=== PATIENT | female | born 1990 | race Two or more races ===

== ENCOUNTER → 2020-05-10 08:06 | Outpatient (REF) | payer OTHER, SELFPAY ==
--- NOTE | 2020-05-10 | NM_ITS ---
EXAMINATION: RADIONUCLIDE SOLID FOOD GASTRIC EMPTYING 4-HOUR STUDY CLINICAL INFORMATION: Abdominal pain. COMPARISON: No previous biliary scan is available for comparison. TECHNIQUE: A standard meal consisting of 4 oz of Egg Beaters brand equivalent tagged with 1 mCi Tc-99m Sulfur Colloid, 8 oz water and 2 slices of toast with jelly was administered orally to the patient. Images were obtained using a dual head gamma camera in the anterior and posterior projections over of the stomach immediately post ingestion and at hourly intervals up to 4 hours post ingestion. The anterior and posterior counts at each time interval were averaged using the geometric mean and expressed as percentage of the immediate post ingestion counts. FINDINGS: There is good visualization of activity in the stomach immediately post ingestion. As the study progresses, there is good clearance of activity from the stomach and visualization of progressively increasing small bowel activity. By the end of the study, there is almost no retention noted in the stomach. Retention in the stomach at each time interval was: 1 hour 82% (normal 37%-90%) 2 hours 42% (normal 30%-60%) 3 hours 23% 4 hours 2% (normal 0%-10%) IMPRESSION: Normal 4-hour solid food gastric emptying study.
== END ==
LOC: HO.NUCMED 08:06
PROVIDERS: PCP Internal Medicine; Visit Provider Internal Medicine Gastroenterology
DX: R10.9 Unspecified abdominal pain (principal); K59.01 Slow transit constipation; E53.8 Deficiency of other specified B group vitamins
CPT/HCPCS: 78262; 78264; A9541

== ENCOUNTER 2020-05-12 09:20 | Outpatient (REF) | payer OTHER, SELFPAY ==
--- NOTE | 2020-05-12 11:00 | MR_ITS ---
EXAMINATION: MRI ABDOMEN AND PELVIS WITH AND WITHOUT CONTRAST: MR ENTEROGRAPHY CLINICAL INFORMATION: UNSPECIFIED ABD PAIN, CONSTIPATION DELAYED COLONIC TRANSIT COMPARISON: No pertinent priors currently available. TECHNIQUE: 1500 mL Breeza PO contrast prior to scanning. Then, multiple routine MRI sequences through the abdomen were obtained on a high-field 1.5 Joellen MRI before and after the uneventful administration of 6.5 mL of Gadavist gadolinium-based IV contrast. FINDINGS: STOMACH: Adequate distention with fluid. No gastric wall thickening. No abnormal wall enhancement. SMALL BOWEL: Adequate distention of the small bowel fluid. No small bowel wall thickening. No area suspicious for stricture. No abnormal wall enhancement. COLON: There is stool throughout the colon, particularly in the right hemicolon. There is no colonic wall thickening or abnormal enhancement. LUNG BASES: Lung bases are clear. LIVER: Liver enhances normally. No focal lesion seen. Hepatic and portal veins enhance normally. GALL BLADDER AND BILIARY TREE: Gall bladder normal. No intra or extra-hepatic biliary ductal dilation. SPLEEN: Normal. Normal size. No focal lesion. PANCREAS: Normal. ADRENAL GLANDS: Normal. No adrenal mass. KIDNEYS AND URETERS: Normal symmetric renal enhancement. No hydronephrosis or mass. LYMPHOVASCULAR STRUCTURES: Normal caliber aorta. IVC patent. No pathologically enlarged abdominal or retroperitoneal lymphadenopathy by CT size criteria PELVIS: The uterus and adnexa are unremarkable. OSSEOUS STRUCTURES: No acute or suspicious osseous abnormalities. IMPRESSION: No suspicious bowel abnormality. No abnormal wall thickening or enhancement. There is mild to moderate colonic stool burden.
[2020-05-12 15:27] LABS: Glucose, Whole Blood 76 mg/dL (60-115)
[2020-05-12 15:27] LABS: Glucose, Whole Blood 86 mg/dL (60-115)
[2020-05-12 15:28] LABS: Glucose, Whole Blood 78 mg/dL (60-115)
== END 2020-05-12 09:21 | disposition home or self-care (01) ==
LOC: HO.MRI 09:20
PROVIDERS: PCP Internal Medicine; Visit Provider Internal Medicine Gastroenterology
DX: R10.9 Unspecified abdominal pain (principal); K59.01 Slow transit constipation; E53.8 Deficiency of other specified B group vitamins; Z95.0 Presence of cardiac pacemaker
CPT/HCPCS: 72197; 74183; 82947

== ENCOUNTER 2020-10-18 09:04 | Outpatient (REF) | payer OTHER, SELFPAY ==
--- NOTE | ~2020-10-18 | US_ITS ---
EXAMINATION: MESENTERIC ARTERIAL ULTRASOUND CLINICAL INFORMATION: Epigastric pain COMPARISON: Previous CTA of the chest December and February 2019 TECHNIQUE: Doppler color and grayscale evaluation of the mesenteric vessels and aorta including waveform spectral analysis. Exam was performed in the supine position. FINDINGS: The abdominal aorta is normal in caliber. Abdominal aorta systolic velocity measures 135 cm/s proximal to the SMA and 121 cm/s distal to the SMA. This has a normal waveform. The celiac axis is patent without visible stenosis. Celiac axis peak systolic velocity is slightly elevated measuring 275 cm/s, upper normal is 200 cm/s. The waveform is normal. The SMA is patent without visible stenosis. Peak systolic velocity measures 280 cm/s proximally, 185 cm/s in the midportion and 196 cm/s distally. Proximal SMA peak systolic velocity is slightly elevated, upper normal 275 cm/s. This has a normal waveform. The JUANA is patent. Peak systolic velocity measures 124 cm/s. This has a normal waveform. The splenic artery is patent. Peak systolic velocity measures 124 cm/s. This has a normal waveform. Review of the upper abdomen on CTA of the chest demonstrates normal caliber upper abdominal aorta. Normal caliber widely patent celiac axis and SMA. 2 patent right renal arteries and single patent left renal artery. US/US SMA IMPRESSION: Slightly elevated peak systolic velocities in the celiac axis and proximal SMA. Vessels appear widely patent with no visible stenosis and normal waveforms.
== END 2020-10-18 09:05 | disposition home or self-care (01) ==
LOC: HO.US 09:04
PROVIDERS: Visit Provider Internal Medicine Gastroenterology
DX: R10.13 Epigastric pain (principal)
CPT/HCPCS: 93976

== ENCOUNTER 2020-10-31 10:23 | Outpatient (REF) | payer OTHER, SELFPAY | END 2020-10-31 10:24 | disposition home or self-care (01) | LOC: HO.XRAY 10:23 | PROVIDERS: PCP Internal Medicine; Visit Provider Internal Medicine Gastroenterology | DX: K59.02 Outlet dysfunction constipation (principal) | CPT/HCPCS: 99212 ==

== ENCOUNTER 2020-11-02 08:29 | Outpatient (REF) | payer OTHER, SELFPAY ==
--- NOTE | ~2020-11-02 | XR_ITS ---
EXAMINATION: XR ABDOMEN KUB CLINICAL INDICATION: Sitz markers. COMPARISON: None TECHNIQUE: AP view of the abdomen. FINDINGS: There are 6 Sitz markers projecting over the right colon. There is stool in the right colon. There are no dilated loops of bowel. There is no evidence of free air. There are no calcifications. Bony structures are unremarkable. XR/XR KUB IMPRESSION: 6 Sitz markers seen in the right colon.
== END 2020-11-02 08:30 | disposition home or self-care (01) ==
LOC: HO.LAB 08:29
PROVIDERS: PCP Internal Medicine; Visit Provider Internal Medicine Gastroenterology
DX: R10.13 Epigastric pain (principal); K59.02 Outlet dysfunction constipation
CPT/HCPCS: 36415; 74018; 86003

== ENCOUNTER 2020-11-05 09:27 | Outpatient (REF) | payer OTHER, SELFPAY ==
--- NOTE | ~2020-11-05 | XR_ITS ---
EXAMINATION: XR ABDOMEN KUB CLINICAL INDICATION: Day 5 cysts Marker test COMPARISON: November 02, 2020 TECHNIQUE: AP view of the abdomen. FINDINGS: No dilated loops of large or small bowel are evident. There is moderate stool burden seen throughout the colon. Psoas margins are intact. Bony structures unremarkable. There are noted to be 4 Sitzmarks remaining. 2 are in the region of the splenic flexure with one in the region of the sigmoid colon and the fourth and region of the rectum. The colonic transit appears to be normal with greater than 80% of the Sitzmarks markers passing within 5 days. XR/XR KUB IMPRESSION: Moderate stool burden. 4 remaining Sitzmarks markers as described which on day 5 is indicative of normal colonic transit.
== END 2020-11-05 09:28 | disposition home or self-care (01) ==
LOC: HO.XRAY 09:27
PROVIDERS: PCP Internal Medicine; Visit Provider Internal Medicine Gastroenterology
DX: K59.02 Outlet dysfunction constipation (principal)
CPT/HCPCS: 74018

== ENCOUNTER → 2021-06-05 10:54 | Outpatient (BNVA) | payer OTHER, SELFPAY | PROVIDERS: PCP Internal Medicine; Visit Provider Internal Medicine Gastroenterology | DX: K59.02 Outlet dysfunction constipation (principal) | CPT/HCPCS: Q3014 ==

== ENCOUNTER → 2021-07-04 12:50 | Outpatient (BNVA) | payer OTHER, SELFPAY | PROVIDERS: PCP Internal Medicine; Visit Provider Internal Medicine Gastroenterology | CPT/HCPCS: Q3014 ==

== ENCOUNTER → 2021-10-02 14:51 | Outpatient (BNVA) | payer OTHER, SELFPAY | PROVIDERS: PCP Internal Medicine; Referring Provider Internal Medicine; Visit Provider Internal Medicine Gastroenterology | DX: Z13.89 Encounter for screening for other disorder (principal) | CPT/HCPCS: Q3014 ==

== ENCOUNTER 2021-11-22 11:39 | Day surgery (SDC) | payer OTHER, SELFPAY ==
[2021-11-17 12:15] VITALS: BMI 27.1
[2021-11-22 12:00] VITALS: BP 102/65; PULSE 64; RESP 18; TEMP 36.3; O2SAT 100; BMI 27.3
--- NOTE | 2021-11-22 12:05 | MHC.SHP ---
Pre-Procedural Eval Section A Date of Service: 11/22/21 Section B Chief Complaint: Epigastric pain,Hemorrhage of anus and rectum Details of Present Illness: altered bowel habit Relevant Family History (Specify if Yes): No Relevant Social History: None Present Medications: see Short Stay Collaborative assessment Medical History: Significant History (Active asthma B12 deficiency H/O brain tumor Pacemaker Pernicious anemia POTS (postural orthostatic tachycardia syndrome)) History of Previous Operations: Relevant previous surgery/procedure and date(s) (H/O colonoscopy H/O esophagogastroduodenoscopy Hx of appendectomy) Allergies: Allergies Allergy/AdvReac Type Severity Reaction Status Date / Time cefoxitin [CEFOXITIN] Allergy Severe Anaphylaxis Verified 11/17/21 11:56 sertraline Allergy Severe itching Verified 11/17/21 11:56 vancomycin [VANCOMYCIN] Allergy Severe Anaphylaxis Verified 11/17/21 11:56 Review of Systems Sugical H&P ROS: Negative: Constitution, Cardiovascular, Respiratory, Neurological, Psychiatric, Hem-Onc, Allergic/Immunologic, Gastrointestinal, Genitourinary, Musculoskeletal, Integumentary, Endocrine and Eyes/Ears/Nose/Throat Exam Surgical H&P Exam: Normal: HEENT, Normal: Heart, Normal: Lungs, Normal: Extremities, Normal: Abdomen, Normal: Skin and Normal: Neurological Plan Diagnosis/Plan: Unchanged I have reviewed the history and physical and performed a pertinent physical examination on my patient. No changes have occurred unless specified.
--- NOTE | 2021-11-22 12:26 | P.CONAN_ITS ---
FORMERLY [facility] Active Problems Active Problems: All Active Problems (Updated 11/17/21 @ 14:54 by Jenifer Brown RN) Epigastric abdominal pain (Acute) Constipation by outlet dysfunction (Acute) Past Medical History Medical History (Updated 11/17/21 @ 14:54 by Jenifer Brown RN) Active asthma Anxiety and depression B12 deficiency H/O brain tumor History of chemotherapy History of DVT (deep vein thrombosis) History of palpitations Hx of supraventricular tachycardia Narcolepsy Pacemaker Pernicious anemia POTS (postural orthostatic tachycardia syndrome) Seasonal allergies Family History Family History Mother Heart problem Maternal Grandfather Heart problem Paternal Grandmother Dementia Family history of problems with anesthesia: No Surgical History Surgical History (Updated 11/17/21 @ 14:54 by Jenifer Brown RN) H/O colonoscopy H/O esophagogastroduodenoscopy History of cardiac radiofrequency ablation (RFA) Hx of appendectomy Hx of craniotomy History of Problems with Anesthesia: No Social History Social History Household Members: None Are you a primary primary care nurse practitioner to a significant other at home: No Do you presently have visiting nurse or other home services: Yes ([employer] 4.5 week) Alcohol intake: current Alcohol intake frequency: holidays/special occasions only Patient Tobacco Use Status: Never used Tobacco Use of substances other than those prescribed or required for medical reasons: No Have you been hit, kicked, punched, or otherwise hurt by someone within the past year? If so, by whom?: No Are you DNR?: No Advance Directives: No Advance Directives Information Provided: Yes Advance Directives on File: No Recently lost weight without trying: Unsure Patient : No FDLMP: 11/01/2021 : No Poor oral hygiene: No Meds Allergies Allergy/AdvReac Type Severity Reaction Status Date / Time cefoxitin [CEFOXITIN] Allergy Severe Anaphylaxis Verified 11/17/21 11:56 sertraline Allergy Severe itching Verified 11/17/21 11:56 vancomycin [VANCOMYCIN] Allergy Severe Anaphylaxis Verified 11/17/21 11:56 Active Medications: Current Medications Lactated Ringer's (Lr) 1,000 mls @ 50 mls/hr IVCONT .Q20H [facility] Home Medications Medication Instructions Recorded Confirmed Last Taken Type cyanocobalamin (vitamin B-12) 1,000 mcg IM Q4W 10/31/20 11/17/21 Unknown History 1,000 mcg/mL injection solution metoprolol tartrate 50 mg tablet 50 mg PO BID 10/31/20 11/17/21 Unknown History nitroglycerin 0.4 mg sublingual 0.4 mg SUBLINGUAL .Q5MINS 10/31/20 11/17/21 Unknown History tablet albuterol sulfate 90 mcg/actuation 2 puff INHALATION Q6H PRN 11/17/21 11/17/21 Unknown History aerosol inhaler cholecalciferol (vitamin D3) 25 1 cap PO DAILY 11/17/21 11/17/21 Unknown History mcg (1,000 unit) capsule fluticasone propionate 110 2 puff INHALATION BID 11/17/21 11/17/21 Unknown History mcg/actuation HFA aerosol inhaler (Flovent HFA) pitolisant 17.8 mg tablet (Wakix) mg PO 11/17/21 11/17/21 Unknown History verapamil 240 mg tablet,extended 1 tab PO BID 11/17/21 11/17/21 Unknown History release Exam Exam Date and Time: November 22, 2021 1226 Height,Weight and Vital Signs: Height 5 ft 1 in Weight 65.771 kg Last Vital Signs Temp 97.3 F 11/22/21 12:00 Pulse 64 11/22/21 12:00 Resp 18 11/22/21 12:00 BP 102/65 11/22/21 12:00 Pulse Ox 100 11/22/21 12:00 Airway Mallampati Class: II TM Dist: >3cm Neck ROM: Full Heart: rrr Lungs: cta Assessment and Plan Assessment Anesthesia Assessment: Anesthesia Plan Discussed and Chart Reviewed Final Anesthetic Review Family History of Problems with Anesthesia: No History of Problems with Anesthesia: No NPO: Yes ASA Class: II Final Preanesthetic Review: No Changes in Pt Med Stat, Meds/Allgs Chart Reviewed and Consent Obtained/Reviewed Patient Risk: Intermediate Procedure Risk: Intermediate Anesthetic Plan Anesthetic Plan: MAC: Disposition: Standard PACU
--- NOTE | 2021-11-22 12:45 | P.BOP_ITS ---
Brief Operative Note Date of Service: 11/22/21 Pre-op diagnosis: altered bowel habits, blood in stools Post-op diagnosis: same Procedure: see op note Surgeon: Dino Bryant MD Anesthesia: MAC Was an Delinquent Tax Collection Assistant used for this Procedure?: No Estimated blood loss (mL): 0 Condition: stable Disposition: PACU
[2021-11-22] MEDS: Lactated Ringers 1,000 ML 50 ML IVCONT (13:02)
[2021-11-22 13:09] LABS: UPreg QC Valid YES; Urine Pregnancy NEGATIVE (NEGATIVE)
--- NOTE | 2021-11-22 13:28 | W.PM.OPN ---
Operative Note Operative Note Date of Service: 11/22/21 Narrative: Operative Information Procedure Description: EGD, Colonoscopy Indication: [] Anesthesia: MAC FLEXIBLE TRANSORAL UPPER GASTROINTESTINAL ENDOSCOPY AND COLONOSCOPY PROCEDURE NOTE UPPER ENDOSCOPY Consent: Indications for the procedure and potential complications of bleeding, perforation, reaction to medications and missed diagnosis were discussed with the patient and informed consent was obtained. Instrument: Olympus GIF H 190 J mid size upper endoscope Monitoring: Vital signs and clinical assessment, continuous EKG monitoring, Pulse oximetry, Carbon Dioxide monitoring and blood pressure monitoring were done throughout the procedure. Procedure: The patient was placed in the left lateral decubitis position and pre-procedure medications were administered and a bite block was placed. The endoscope was inserted into the mouth and advanced under direct vision to the third part of duodenum. A careful inspection was made as the upper endoscope was withdrawn including a retroflexed examination of the proximal stomach; Findings and interventions are described below. Findings: Larynx:normal Esophagus: GE junction at 38 cm, diaphragm hiatus at 38 cm, white spots possible reta, bx taken Stomach: several erosions in mid body of stomach. Biopsies were obtained. Grade 2 flap valve on retroflexed examination of the cardia. Duodenum: Normal bulb and descending duodenum, bx taken for PCR and PAS staining for Whipples disease Intervention: Biopsies as noted above COLONOSCOPY Instrument: Olympus variable stiffness pediatric scope 190L Colonoscopy Monitoring: Vital signs and clinical assessment, continuous EKG monitoring, Pulse oximetry, Carbon Dioxide monitoring and blood pressure monitoring were done throughout the procedure. Colon withdrawal time was 7-8 minutes. Procedure: The patient was placed in the left lateral decubitis position and pre-procedure medications were administered. After a digital rectal examination of the ano-rectum, the video colonoscope was inserted into the rectum and advanced through the colon to the cecum/TI. The colonoscope was slowly withdrawn in a retrograde panoramic fashion and the colon mucosa was carefully examined including a retroflexed view of the rectum. Findings and interventions are described below. Procedure Difficulty:easy Findings: Terminal Ileum-nodular tissue with greyish translucent appearance--biopsies taken random colon bx taken Cecum:normal Ascending Colon: normal Transverse Colon -normal Descending Colon:normal Sigmoid Colon: normal Rectum: Retroflexion with small internal hemorrhoids, grade I Anorectum - normal Colon preparation: [place] Bowel Preparation Scale Right colon; 3 Transverse colon: 3 Left colon; 3 (0 = Unprepared colon segment with mucosa not seen due to solid stool that cannot be cleared. 1 = Portion of mucosa of the colon segment seen, but other areas of the colon segment not well seen due to staining, residual stool and/or opaque liquid. 2 = Minor amount of residual staining, small fragments of stool and/or opaque liquid, but mucosa of colon segment seen well. 3 = Entire mucosa of colon segment seen well with no residual staining, small fragments of stool or opaque liquid) Impression and Post Procedure Diagnosis: Endoscopy Findings: erosive gastritis possible reta Colonoscopy Findings: internal hemorrhoids abnormal appearing TI Plan: Await Pathology results, stain for mast cells, amyloid, PAS Repeat Colonoscopy aged 45 or earlier if clinically indicated High fiber diet leaflet avoid straining at stool, epsom salts and sitz bath, anusol supps or cream if h pylori pos then treat Above findings were reviewed with the patient and relevant handouts were provided if indicated.
[2021-11-22 13:50] VITALS: BP 116/84; PULSE 60; RESP 16; TEMP 36.3; O2SAT 100
[2021-11-22 14:05] VITALS: PULSE 60; RESP 16; O2SAT 100
[2021-11-22 14:20] VITALS: PULSE 60; RESP 16; O2SAT 100
[2021-11-22 14:35] VITALS: BP 104/68; PULSE 60; RESP 16; O2SAT 100
== END 2021-11-22 15:26 | disposition home or self-care (01) ==
PROVIDERS: PCP Internal Medicine; Visit Provider Internal Medicine Gastroenterology
PROC: (CPT 45380; principal; 2021-11-22 12:30)
DX: K62.5 Hemorrhage of anus and rectum (principal); K64.0 First degree hemorrhoids; R10.13 Epigastric pain; K29.60 Other gastritis without bleeding; K64.8 Other hemorrhoids; K44.9 Diaphragmatic hernia without obstruction or gangrene; J45.909 Unspecified asthma, uncomplicated; D51.0 Vitamin B12 deficiency anemia due to intrinsic factor deficiency; I49.8 Other specified cardiac arrhythmias; Z79.51 Long term (current) use of inhaled steroids; Z79.899 Other long term (current) drug therapy; Z88.1 Allergy status to other antibiotic agents; Z88.8 Allergy status to other drugs, medicaments and biological substances; Z85.841 Personal history of malignant neoplasm of brain; Z92.21 Personal history of antineoplastic chemotherapy; Z95.0 Presence of cardiac pacemaker; Z86.718 Personal history of other venous thrombosis and embolism
CPT/HCPCS: 45380; 43239; 81025; 87798; 88305; 88312; 88313; 88341; 88342

== ENCOUNTER → 2021-11-29 10:19 | Outpatient (BNVA) | payer OTHER, SELFPAY | PROVIDERS: PCP Internal Medicine; Referring Provider Internal Medicine; Visit Provider Internal Medicine Gastroenterology | DX: Z13.89 Encounter for screening for other disorder (principal) ==

== ENCOUNTER 2022-02-23 10:03 | Outpatient (REF) | payer OTHER, SELFPAY ==
[2022-02-23 11:47] LABS: Appearance Urine CLEAR; Color Urine YELLOW; Glucose Urine UA NEG (NEG); Leukocyte Esterase Urine NEG (NEG); Nitrite Urine NEG (NEG); Specific Gravity - Urine 1.025 (1.005-1.025); UACC Culture Trigger NO; Urine Blood 3+ (NEG); Urine Ketones NEG (NEG); Urine Protein NEG (NEG-TRACE)
[2022-02-23 12:10] LABS: Squamous Epithelial Cell Urine 1+ /LPF
[2022-02-23 12:12] LABS: Bacteria Urine 1+ /LPF; WBC Urine 0 /HPF (0-4)
== END 2022-02-23 10:04 | disposition home or self-care (01) ==
LOC: HO.LAB 10:03
PROVIDERS: PCP Internal Medicine; Referring Provider Internal Medicine; Visit Provider Internal Medicine Gastroenterology
DX: K59.02 Outlet dysfunction constipation (principal); N81.6 Rectocele; E34.9 Endocrine disorder, unspecified; R30.0 Dysuria
CPT/HCPCS: 81001; 99212

== ENCOUNTER → 2022-04-30 15:38 | Outpatient (BNVA) | payer MEDICAID, SELFPAY | PROVIDERS: PCP Internal Medicine; Visit Provider Internal Medicine Gastroenterology | DX: R10.9 Unspecified abdominal pain (principal); K59.01 Slow transit constipation; K29.60 Other gastritis without bleeding | CPT/HCPCS: 99212 ==

== ENCOUNTER 2022-06-18 10:43 | Outpatient (REF) | payer MEDICAID, SELFPAY ==
--- NOTE | ~2022-06-18 | XR_ITS ---
EXAMINATION: XR CHEST CLINICAL INFORMATION: Hemoptysis COMPARISON: Previous chest x-ray February 2019 TECHNIQUE: 2 views of the chest were obtained. FINDINGS: The cardiac and mediastinal contours are stable. There is a left subclavian dual chamber pacemaker that appears unchanged. The lungs are clear. No pleural effusion or pneumothorax. Bony structures are unremarkable. XR/XR chest 2V IMPRESSION: No evidence for acute disease in the chest.
--- NOTE | ~2022-06-18 | FL_ITS ---
EXAMINATION: FL BARIUM SWALLOW CLINICAL INFORMATION: Dysphagia COMPARISON: None TECHNIQUE: Barium swallow examination is performed using fluoroscopic evaluation in addition to multiple fluoroscopic spot views. The patient is imaged both upright and prone and using both thick and thin sulfate along with effervescent granules. Barium tablet was also administered. Fluoroscopy time: 1.2 minutes DAP: 3.8 Gycm2 Images: 44 FINDINGS: Exam is limited as the patient had difficulty drinking the barium. No aspiration or penetration. No retention. There is mild gastroesophageal reflux. There is mucosal irregularity questionable for mild esophagitis. Esophageal motility is normal. No mass or stricture. No hernia is seen. Barium tablet passed freely into the stomach. FL/FL barium swallow IMPRESSION: Limited exam as the patient could not drink large amount of barium. Mild gastroesophageal reflux and question mild esophagitis.
== END 2022-06-18 10:44 | disposition home or self-care (01) ==
LOC: HO.XRAY 10:43
PROVIDERS: PCP Internal Medicine; Visit Provider Internal Medicine Gastroenterology
DX: R13.10 Dysphagia, unspecified (principal); R04.2 Hemoptysis
CPT/HCPCS: 71046; 74220

== ENCOUNTER → 2022-09-03 14:29 | Outpatient (BNVA) | payer MEDICAID, SELFPAY | PROVIDERS: PCP Internal Medicine; Visit Provider Internal Medicine Gastroenterology | DX: R13.10 Dysphagia, unspecified (principal); R04.2 Hemoptysis; R06.2 Wheezing | CPT/HCPCS: 99212 ==

== ENCOUNTER 2022-09-27 17:09 | Emergency (ER) | payer MEDICAID, SELFPAY ==
--- NOTE | ~2022-09-27 | CT_ITS ---
EXAMINATION: CT ANGIOGRAM OF THE CHEST WITH AND WITHOUT CONTRAST (CT PULMONARY ANGIOGRAM FOR PE) CLINICAL INFORMATION: Reason for Exam cp COMPARISON: 03/09/2019 TECHNIQUE: Prior to contrast administration, noncontrast localization images were obtained. Subsequently, multidetector volumetric imaging was performed from the thoracic inlet to below the diaphragms following the administration of 65 mL Omnipaque 350 intravenous contrast. No contrast reaction reported Sagittal, coronal, and MIP oblique sagittal reformatted images were obtained on the CT workstation, uploaded to PACS, and reviewed. This CT examination was performed using dose optimization techniques as appropriate, variously including the following: *Automated exposure control *Adjustment of mA and/or kV according to patient size (this includes techniques or standardized protocols for targeted exams where dose is matched to indication/reason for exam; i.e. extremities or head) *Use of iterative reconstruction technique Total exam dose-length product 235 mGy-cm FINDINGS: QUALITY OF STUDY/CONTRAST BOLUS: Satisfactory. PULMONARY ARTERIES: No central or segmental pulmonary emboli. THORACIC AORTA: No aneurysm or dissection. LUNG: No regions of consolidation bilaterally. A 3 mm left upper lobe nodule on image 87/502 appears unchanged from prior, most consistent with a benign etiology. PLEURA: No pleural effusion or pneumothorax. MEDIASTINUM: The visualized thyroid gland is unremarkable. There are subcentimeter mediastinal lymph nodes within the range of normal variation. Cardiac size is within normal limits; no pericardial effusion. Left-sided pacemaker lead tips extend to the right atrium and right ventricle. No evidence of septal bowing or right heart strain. CORONARY ARTERY CALCIFICATION: None visualized on this study. CHEST WALL/AXILLA: No axillary or internal mammary lymphadenopathy. OSSEOUS STRUCTURES: No acute or suspicious osseous abnormality. UPPER ABDOMEN: Unremarkable. No reflux of contrast into the hepatic veins to suggest elevated right heart pressures. CT/CT angio chest PE protocol IMPRESSION: No pulmonary embolus identified. VTE: negative
--- NOTE | ~2022-09-27 | XR_ITS ---
EXAMINATION: XR CHEST CLINICAL INFORMATION: Pain COMPARISON: None TECHNIQUE: 2 views of the chest were obtained. FINDINGS: No significant abnormality is noted involving the heart, lungs, mediastinum, bony thorax or soft tissues. There is a left chest 2 lead cardiac device. XR/XR chest 2V IMPRESSION: No acute disease.
[2022-09-27 17:36] VITALS: BP 130/86; BP 149/75; PULSE 109; PULSE 112; RESP 20; TEMP 36.7; O2SAT 100; O2SAT 99; BMI 27.3
--- NOTE | 2022-09-27 17:38 | ED.GENADULT ---
HPI - General Adult General Chief complaint: Dyspnea Stated complaint: sob,upper back pain Time Seen by Provider: 09/27/22 22:32 Related Data Home Medications Medication Instructions Recorded Confirmed cyanocobalamin (vitamin B-12) 1,000 mcg IM Q4W 10/31/20 10/03/22 1,000 mcg/mL injection solution metoprolol tartrate 50 mg tablet 50 mg PO BID 10/31/20 10/03/22 nitroglycerin 0.4 mg sublingual 0.4 mg sublingual .Q5MINS chest 10/31/20 10/03/22 tablet pain albuterol sulfate 90 mcg/actuation 2 puff inhalation Q6H PRN wheezing 11/17/21 10/03/22 aerosol inhaler cholecalciferol (vitamin D3) 25 1 cap PO DAILY 11/17/21 10/03/22 mcg (1,000 unit) capsule verapamil 240 mg tablet,extended 1 tab PO BID 11/17/21 10/03/22 release isosorbide mononitrate 30 mg 30 mg PO DAILY PRN Chest Pain 04/30/22 10/03/22 tablet,extended release 24 hr Previous Rx's Medication Instructions Recorded cromolyn 100 mg/5 mL oral 200 mg (10 mL) PO QID 30 days 08/02/21 concentrate #1,200 mL ondansetron 4 mg disintegrating 4 mg PO Q8H PRN nausea and 10/02/21 tablet vomiting #20 tabs polyethylene glycol 3350 17 17 g PO BID #510 grams 03/08/22 gram/dose oral powder (Miralax) esomeprazole magnesium 40 mg 40 mg PO DAILY #60 caps 09/03/22 capsule,delayed release Allergies Allergy/AdvReac Type Severity Reaction Status Date / Time cefoxitin [CEFOXITIN] Allergy Severe Anaphylaxis Verified 10/03/22 12:53 sertraline Allergy Severe itching Verified 10/03/22 12:53 vancomycin [VANCOMYCIN] Allergy Severe Anaphylaxis Verified 10/03/22 12:53 PMFSH Past Medical History Medical History Active asthma Anxiety and depression B12 deficiency H/O brain tumor History of chemotherapy History of DVT (deep vein thrombosis) History of palpitations Hx of supraventricular tachycardia Narcolepsy Pacemaker Pernicious anemia POTS (postural orthostatic tachycardia syndrome) Seasonal allergies Surgical History H/O colonoscopy H/O esophagogastroduodenoscopy History of cardiac radiofrequency ablation (RFA) History of repair of rectocele Hx of appendectomy Hx of craniotomy Hx of hysterectomy Family History Family History Mother Heart problem Maternal Grandfather Heart problem Paternal Grandmother Dementia Social History Social History Household Members: None Are you a primary critical care unit nurse to a significant other at home: No Do you presently have visiting nurse or other home services: Yes ([employer]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 Patient also reports a history of DVT but is not currently anticoagulated. She states that her symptoms started a couple days ago but has been worsening. She states that she has ?lesions on my esophagus I think are causing the pain. ? Given the patient's extensive medical history plan for labs, EKG, chest x-ray D-dimer. Medications Administered Discontinued Medications Generic Name Dose Route Start Last Admin Trade Name Freq PRN Reason Stop Dose Admin Hydromorphone HCl 0.5 mg 09/28/22 00:09 09/28/22 00:54 Hydromorphone Hcl 0.5 Mg/0.5 Ml Syringe IVPUSH 09/28/22 00:10 0.5 mg ONCE ONE Administration Protocol Sodium Chloride 1,000 mls @ 999 mls/hr 09/28/22 00:15 09/28/22 00:55 Ns IV 09/28/22 01:15 999 mls/hr .Q1H1M HARJEET Administration Sodium Chloride 1,000 mls @ 999 mls/hr 09/28/22 00:15 09/28/22 00:55 Ns IV 09/28/22 01:15 999 mls/hr .Q1H1M HARJEET Administration Sodium Chloride 1,000 mls @ 999 mls/hr 09/28/22 00:15 09/28/22 00:55 Ns IV 09/28/22 01:15 999 mls/hr .Q1H1M HARJEET Administration Iohexol 65 ml 09/28/22 00:48 09/28/22 00:49 Iohexol 350 Mg/Ml 100 Ml Infus..Btl IV 09/28/22 00:49 65 ml ONCE ONE Administration Medical Decision Making Lab Data 09/27/22 22:40 09/27/22 22:40 Labs: Lab Results 09/27/22 09/27/22 09/27/22 Range/Units 22:40 22:40 22:40 WBC 5.2 (4.8-10.8) X10*3/uL RBC 4.63 (4.20-5.50) X10*6/uL Hgb 13.0 (12.0-16.0) g/dl Hct 38.6 (37.0-47.0) % MCV 83.4 (80.0-98.0) fL MCH 28.1 (27.0-33.0) pg MCHC 33.7 (31.0-35.0) g/dl RDW 13.7 (11.0-16.0) % Plt Count 169 (160-400) X10*3/uL MPV 11.3 (9.4-12.3) fL Immature Gran % (Auto) 0.2 (0.0-0.4) % Neut % (Auto) 69.7 (45-73) % Lymph % (Auto) 21.8 (20-40) % [place] % (Auto) 7.5 (2-11) % Eos % (Auto) 0.2 (0-4) % Baso % (Auto) 0.6 (0-2) % Lymph # (Auto) 1.1 L (1.2-4.9) X10*3/uL [place] # (Auto) 0.4 (0.1-1.2) X10*3/uL Eos # (Auto) 0.0 (0.0-0.4) X10*3/uL Baso # (Auto) 0.0 (0.0-0.2) X10*3/uL Abs Immat Gran (auto) 0.01 (0.00-0.03) X10*3/uL Absolute Neuts (auto) 3.7 (2.0-8.3) x10*3/uL Absolute Nucleated RBC 0.000 (0.0-0.012) X10*3/uL Nucleated RBC % (auto) 0.0 (0.0-0.2) /100WBC PT 14.7 H (10.0-13.1) SEC INR 1.3 H (0.9-1.1) APTT 30.6 (26.0-36.4) SEC D-Dimer High Sensitivty 617 NG/ML Sodium 138 (135-145) mmol/L Potassium 3.9 (3.3-5.1) mmol/L Chloride 101 (96-108) mmol/L Carbon Dioxide 24 (22-29) mmol/L Anion Gap 17 (12-20) BUN 8 L (9-16) mg/dL Creatinine 0.80 (0.5-1.4) mg/dL Estim Creat Clear Calc 89.3 Estimated GFR > 60 Random Glucose 118 H (60-115) mg/dL Calcium 9.4 (8.4-10.2) mg/dL Total Bilirubin 1.5 H (0.0-1.0) mg/dL AST 16 (5-31) U/L ALT 20 (0-31) U/L Alkaline Phosphatase 89 (39-117) U/L Troponin I High Sens (<3.5-17.0) ng/L Total Protein 7.7 (6.5-8.0) g/dL Albumin 4.7 (3.5-5.0) g/dL 09/27/22 09/28/22 Range/Units 22:40 00:24 WBC (4.8-10.8) X10*3/uL RBC (4.20-5.50) X10*6/uL Hgb (12.0-16.0) g/dl Hct (37.0-47.0) % MCV (80.0-98.0) fL MCH (27.0-33.0) pg MCHC (31.0-35.0) g/dl RDW (11.0-16.0) % Plt Count (160-400) X10*3/uL MPV (9.4-12.3) fL Immature Gran % (Auto) (0.0-0.4) % Neut % (Auto) (45-73) % Lymph % (Auto) (20-40) % [place] % (Auto) (2-11) % Eos % (Auto) (0-4) % Baso % (Auto) (0-2) % Lymph # (Auto) (1.2-4.9) X10*3/uL [place] # (Auto) (0.1-1.2) X10*3/uL Eos # (Auto) (0.0-0.4) X10*3/uL Baso # (Auto) (0.0-0.2) X10*3/uL Abs Immat Gran (auto) (0.00-0.03) X10*3/uL Absolute Neuts (auto) (2.0-8.3) x10*3/uL Absolute Nucleated RBC (0.0-0.012) X10*3/uL Nucleated RBC % (auto) (0.0-0.2) /100WBC PT (10.0-13.1) SEC INR (0.9-1.1) APTT (26.0-36.4) SEC D-Dimer High Sensitivty NG/ML Sodium (135-145) mmol/L Potassium (3.3-5.1) mmol/L Chloride (96-108) mmol/L Carbon Dioxide (22-29) mmol/L Anion Gap (12-20) BUN (9-16) mg/dL Creatinine (0.5-1.4) mg/dL Estim Creat Clear Calc Estimated GFR Random Glucose (60-115) mg/dL Calcium (8.4-10.2) mg/dL Total Bilirubin (0.0-1.0) mg/dL AST (5-31) U/L ALT (0-31) U/L Alkaline Phosphatase (39-117) U/L Troponin I High Sens 7.1 5.8 (<3.5-17.0) ng/L Total Protein (6.5-8.0) g/dL Albumin (3.5-5.0) g/dL Discharge Plan Discharge Clinical Impression: Chest pain Patient Disposition: Home, Self-Care Instructions: Chest Pain (DC) Prescriptions: No Action cromolyn 100 mg/5 mL concentrate 200 mg PO QID 30 Days Qty: 1200 3RF polyethylene glycol 3350 [Miralax] 17 gram/dose powder 17 g PO BID Qty: 510 0RF verapamil 240 mg tablet extended release 1 tab PO BID albuterol sulfate 90 mcg/actuation HFA aerosol inhaler 2 puff inhalation Q6H PRN (Reason: wheezing) cholecalciferol (vitamin D3) 25 mcg (1,000 unit) capsule 1 cap PO DAILY cyanocobalamin (vitamin B-12) 1,000 mcg/mL solution 1,000 mcg IM Q4W nitroglycerin 0.4 mg tablet, sublingual 0.4 mg sublingual .Q5MINS metoprolol tartrate 50 mg tablet 50 mg PO BID ondansetron 4 mg tablet,disintegrating 4 mg PO Q8H PRN (Reason: nausea and vomiting) Qty: 20 0RF isosorbide mononitrate 30 mg tablet extended release 24 hr 30 mg PO DAILY PRN (Reason: Chest Pain) esomeprazole magnesium 40 mg capsule,delayed release(DR/EC) 40 mg PO DAILY Qty: 60 3RF Referrals: Abdi Marin MD [Physician] - Interventions: ED Discharge Assessment Last Done: 09/28/22 02:57 Discharge Date/Time: 09/28/22 03:09
--- NOTE | 2022-09-27 17:43 | ECG_ITS ---
Test Reason : CHEST PAIN Blood Pressure : / mmHG Vent. Rate : 111 BPM Atrial Rate : 111 BPM P-R Int : 124 ms QRS Dur : 074 ms QT Int : 348 ms P-R-T Axes : 055 080 016 degrees QTc Int : [address] & T wave abnormality, consider inferior ischemia Abnormal ECG When compared with ECG of 09-MAR-2019 14:05, Nonspecific T wave abnormality, worse in Anterolateral leads Referred By: Prashanth Ji Electronically Signed By:TELLY HALL MD
[2022-09-27 22:25] VITALS: BP 138/78; PULSE 100; RESP 22; TEMP 36.6; O2SAT 100
[2022-09-27 22:45] LABS: Basophils Percent Auto 0.6 % (0-2); Eosinophils Percent Auto 0.2 % (0-4); Hematocrit 38.6 % (37.0-47.0); Imm Gran Abs Auto 0.01 X10*3/uL (0.00-0.03); Imm Gran Pct Auto 0.2 % (0.0-0.4); Lymphocytes Absolute Auto 1.1 X10*3/uL (1.2-4.9); Lymphocytes Percent Auto 21.8 % (20-40); MANUAL DIFF FLAG NO; Mean Corpuscular HGB Conc 33.7 g/dl (31.0-35.0); Mean Corpuscular Hemoglobin 28.1 pg (27.0-33.0); Mean Corpuscular Volume 83.4 fL (80.0-98.0); Mean Platelet Volume 11.3 fL (9.4-12.3); Monocytes Absolute Auto 0.4 X10*3/uL (0.1-1.2); Monocytes Percent Auto 7.5 % (2-11); Neutrophils Absolute Auto 3.7 x10*3/uL (2.0-8.3); Neutrophils Percent Auto 69.7 % (45-73); Platelet Count 169 X10*3/uL (160-400); Red Blood Count 4.63 X10*6/uL (4.20-5.50); Red Cell Distribution Width 13.7 % (11.0-16.0); White Blood Count 5.2 X10*3/uL (4.8-10.8)
[2022-09-27 22:51] LABS: INTERNATIONAL NORM RATIO 1.3 (0.9-1.1); Prothrombin Time 14.7 SEC (10.0-13.1)
[2022-09-27 22:53] LABS: D Dimer High Sensitivity 617 NG/ML
[2022-09-27 22:54] LABS: Partial Thromboplastin Time 30.6 SEC (26.0-36.4)
[2022-09-27 23:09] LABS: Alanine Aminotransferase 20 U/L (0-31); Albumin Level 4.7 g/dL (3.5-5.0); Alkaline Phosphatase 89 U/L (39-117); Anion Gap 17 (12-20); Aspartate Amino Transferase 16 U/L (5-31); Bilirubin Total 1.5 mg/dL (0.0-1.0); Blood Urea Nitrogen 8 mg/dL (9-16); Calcium 9.4 mg/dL (8.4-10.2); Carbon Dioxide 24 mmol/L (22-29); Chloride 101 mmol/L (96-108); Creatinine Clr Calc Pharmacy 89.3; Estimated Glomerular Filt Rate > 60; Glucose Random 118 mg/dL (60-115); Potassium 3.9 mmol/L (3.3-5.1); Sodium 138 mmol/L (135-145); Total Protein 7.7 g/dL (6.5-8.0)
[2022-09-27 23:10] LABS: Troponin-I High Sensitivity 7.1 ng/L (<3.5-17.0)
[2022-09-27 23:24] VITALS: BP 149/76; PULSE 90; RESP 14; TEMP 36.4; O2SAT 99
--- NOTE | 2022-09-28 00:21 | ED_ITS ---
HPI - SOB/Dyspnea General Chief Complaint: Dyspnea Stated Complaint: sob,upper back pain Time Seen by Provider: 09/27/22 22:32 History of Present Illness HPI Narrative: Patient is a 31-year-old female with a history of having possible Randi in her esophagus. Patient has a history of tachy-sharmin syndrome. Status post pacemaker. Today presented today with having pain when she takes a deep breath pain in her upper back. No diaphoresis. No fever no chills. No coughing or congestion or upper respiratory symptoms. No diaphoresis. Patient is from home. No history of coronary artery disease. No history of diabetes, hypertension, high cholesterol. Patient is from home. Patient denies any difficulty swallowing. Has pain on swallowing. But is able tolerate solids. There is no change in her voice. There is no shortness of breath. Related Data Home Medications Medication Instructions Recorded Confirmed cyanocobalamin (vitamin B-12) 1,000 mcg IM Q4W 10/31/20 11/17/21 1,000 mcg/mL injection solution metoprolol tartrate 50 mg tablet 50 mg PO BID 10/31/20 11/17/21 nitroglycerin 0.4 mg sublingual 0.4 mg sublingual .Q5MINS chest 10/31/20 11/17/21 tablet pain albuterol sulfate 90 mcg/actuation 2 puff inhalation Q6H PRN wheezing 11/17/21 11/17/21 aerosol inhaler cholecalciferol (vitamin D3) 25 1 cap PO DAILY 11/17/21 11/17/21 mcg (1,000 unit) capsule fluticasone propionate 110 2 puff inhalation BID 11/17/21 11/17/21 mcg/actuation HFA aerosol inhaler (Flovent HFA) pitolisant 17.8 mg tablet (Wakix) mg PO 11/17/21 11/17/21 verapamil 240 mg tablet,extended 1 tab PO BID 11/17/21 11/17/21 release isosorbide mononitrate 30 mg 30 mg PO DAILY PRN 04/30/22 tablet,extended release 24 hr Previous Rx's Medication Instructions Recorded cromolyn 100 mg/5 mL oral 200 mg (10 mL) PO QID 30 days 08/02/21 concentrate #1,200 mL desloratadine 5 mg tablet 5 mg PO DAILY #30 tabs 10/02/21 ondansetron 4 mg disintegrating 4 mg PO Q8H PRN nausea and 10/02/21 tablet vomiting #20 tabs peg-electrolyte solution 420 gram 240 ml PO Q10M #4,000 mL 10/02/21 oral solution (Nulytely Lemon[place]) ciprofloxacin HCl 500 mg tablet 500 mg PO BID 2 weeks #28 tabs 01/11/22 lactulose 10 gram/15 mL oral 20 g (30 mL) PO BID #946 mL 03/08/22 solution polyethylene glycol 3350 17 17 g PO BID #510 grams 03/08/22 gram/dose oral powder (Miralax) fluconazole 100 mg tablet 100 mg PO DAILY #14 tabs 04/30/22 esomeprazole magnesium 40 mg 40 mg PO DAILY #60 caps 09/03/22 capsule,delayed release Allergies Allergy/AdvReac Type Severity Reaction Status Date / Time cefoxitin [CEFOXITIN] Allergy Severe Anaphylaxis Verified 09/03/22 14:36 sertraline Allergy Severe itching Verified 09/03/22 14:36 vancomycin [VANCOMYCIN] Allergy Severe Anaphylaxis Verified 09/03/22 14:36 Review of Systems Review of Systems: Positive chest pain and back pain Yes all other systems are reviewed and are negative PMFSH Past Medical History Attestation statement: The following information was validated with the patient. Medical History Active asthma Anxiety and depression B12 deficiency H/O brain tumor History of chemotherapy History of DVT (deep vein thrombosis) History of palpitations Hx of supraventricular tachycardia Narcolepsy Pacemaker Pernicious anemia POTS (postural orthostatic tachycardia syndrome) Seasonal allergies Surgical History H/O colonoscopy H/O esophagogastroduodenoscopy History of cardiac radiofrequency ablation (RFA) History of repair of rectocele Hx of appendectomy Hx of craniotomy Hx of hysterectomy Family History Family History Mother Heart problem Maternal Grandfather Heart problem Paternal Grandmother Dementia Social History Social History Household Members: None Are you a primary care attendant to a significant other at home: No Do you presently have visiting nurse or other home services: Yes (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 Oriented X3. No acute distress. Eyes: Pupils equal, round and reactive to light. ENT: Pharynx normal. Neck: Normal inspection. Neck supple. No lymph nodes noted. No crepitus CVS: Normal heart rate and rhythm. Pulses normal. Normal S1 and S2 Respiratory: No respiratory distress. Breath sounds normal. No Wheezing. No rales Abdomen: Soft and nontender. No rigidity. No distention. good BS x4 Skin: Skin warm and dry. Normal skin color. Normal skin turgor. Extremities: No lower extremity edema. Neurovascular intact to all extremities. No Lacerations. No Rash Neuro: Oriented X 3. No motor deficit. No sensory deficit. Moving all extermities. No slurred speech Medications Administered Discontinued Medications Generic Name Dose Route Start Last Admin Trade Name Freq PRN Reason Stop Dose Admin Hydromorphone HCl 0.5 mg 09/28/22 00:09 09/28/22 00:54 Hydromorphone Hcl 0.5 Mg/0.5 Ml Syringe IVPUSH 09/28/22 00:10 0.5 mg ONCE ONE Administration Protocol Sodium Chloride 1,000 mls @ 999 mls/hr 09/28/22 00:15 09/28/22 00:55 Ns IV 09/28/22 01:15 999 mls/hr .Q1H1M HARJEET Administration Sodium Chloride 1,000 mls @ 999 mls/hr 09/28/22 00:15 09/28/22 00:55 Ns IV 09/28/22 01:15 999 mls/hr .Q1H1M HARJEET Administration Sodium Chloride 1,000 mls @ 999 mls/hr 09/28/22 00:15 09/28/22 00:55 Ns IV 09/28/22 01:15 999 mls/hr .Q1H1M HARJEET Administration Iohexol 65 ml 09/28/22 00:48 09/28/22 00:49 Iohexol 350 Mg/Ml 100 Ml Infus..Btl IV 09/28/22 00:49 65 ml ONCE ONE Administration Medical Decision Making Medical Decision Making [facility] Narrative: Patient complaining of pain when she swallows. Pain when she takes a deep breath. Differential diagnosis include pneumonia pneumothorax, pulmonary emboli. Patient's D-dimer was positive. CTA was done. There is no evidence of pneumonia there is no evidence of pneumothorax there is no evidence of rib fracture there is no evidence of large pericardial effusion. Patient has a history of patches in her esophagus. Her old record was reviewed patient had an endoscopy and a colonoscopy done within the last year. Has a follow-up with GI on an outpatient basis. Patient's pain is atypical for ACS. Two sets of cardiac enzymes are negative. Her EKG showed a sinus pattern heart rate was 100 [place] cares QT within normal limits there is diffuse T-wave flattening noted. EKG is unchanged from previous. Patient is well-appearing. Given IV fluids. History of tachy-sharmin syndrome. Currently sinus. In no distress. Will discharge patient home follow-up with GI on an outpatient basis Differential Diagnosis Differential Diagnoses: The differential diagnosis associated with the presentation includes Admission/Observation Consideration of admission/observation: Escalation of care including admissi on/observation considered Lab Data [facility] Lab Attestation statement: I reviewed the patient's lab results. 09/27/22 22:40 09/27/22 22:40 Labs: Lab Results 09/27/22 09/27/22 09/27/22 Range/Units 22:40 22:40 22:40 WBC 5.2 (4.8-10.8) X10*3/uL RBC 4.63 (4.20-5.50) X10*6/uL Hgb 13.0 (12.0-16.0) g/dl Hct 38.6 (37.0-47.0) % MCV 83.4 (80.0-98.0) fL MCH 28.1 (27.0-33.0) pg MCHC 33.7 (31.0-35.0) g/dl RDW 13.7 (11.0-16.0) % Plt Count 169 (160-400) X10*3/uL MPV 11.3 (9.4-12.3) fL Immature Gran % (Auto) 0.2 (0.0-0.4) % Neut % (Auto) 69.7 (45-73) % Lymph % (Auto) 21.8 (20-40) % [place] % (Auto) 7.5 (2-11) % Eos % (Auto) 0.2 (0-4) % Baso % (Auto) 0.6 (0-2) % Lymph # (Auto) 1.1 L (1.2-4.9) X10*3/uL [place] # (Auto) 0.4 (0.1-1.2) X10*3/uL Eos # (Auto) 0.0 (0.0-0.4) X10*3/uL Baso # (Auto) 0.0 (0.0-0.2) X10*3/uL Abs Immat Gran (auto) 0.01 (0.00-0.03) X10*3/uL Absolute Neuts (auto) 3.7 (2.0-8.3) x10*3/uL Absolute Nucleated RBC 0.000 (0.0-0.012) X10*3/uL Nucleated RBC % (auto) 0.0 (0.0-0.2) /100WBC PT 14.7 H (10.0-13.1) SEC INR 1.3 H (0.9-1.1) APTT 30.6 (26.0-36.4) SEC D-Dimer High Sensitivty 617 NG/ML Sodium 138 (135-145) mmol/L Potassium 3.9 (3.3-5.1) mmol/L Chloride 101 (96-108) mmol/L Carbon Dioxide 24 (22-29) mmol/L Anion Gap 17 (12-20) BUN 8 L (9-16) mg/dL Creatinine 0.80 (0.5-1.4) mg/dL Estim Creat Clear Calc 89.3 Estimated GFR > 60 Random Glucose 118 H (60-115) mg/dL Calcium 9.4 (8.4-10.2) mg/dL Total Bilirubin 1.5 H (0.0-1.0) mg/dL AST 16 (5-31) U/L ALT 20 (0-31) U/L Alkaline Phosphatase 89 (39-117) U/L Troponin I High Sens (<3.5-17.0) ng/L Total Protein 7.7 (6.5-8.0) g/dL Albumin 4.7 (3.5-5.0) g/dL 09/27/22 09/28/22 Range/Units 22:40 00:24 WBC (4.8-10.8) X10*3/uL RBC (4.20-5.50) X10*6/uL Hgb (12.0-16.0) g/dl Hct (37.0-47.0) % MCV (80.0-98.0) fL MCH (27.0-33.0) pg MCHC (31.0-35.0) g/dl RDW (11.0-16.0) % Plt Count (160-400) X10*3/uL MPV (9.4-12.3) fL Immature Gran % (Auto) (0.0-0.4) % Neut % (Auto) (45-73) % Lymph % (Auto) (20-40) % [place] % (Auto) (2-11) % Eos % (Auto) (0-4) % Baso % (Auto) (0-2) % Lymph # (Auto) (1.2-4.9) X10*3/uL [place] # (Auto) (0.1-1.2) X10*3/uL Eos # (Auto) (0.0-0.4) X10*3/uL Baso # (Auto) (0.0-0.2) X10*3/uL Abs Immat Gran (auto) (0.00-0.03) X10*3/uL Absolute Neuts (auto) (2.0-8.3) x10*3/uL Absolute Nucleated RBC (0.0-0.012) X10*3/uL Nucleated RBC % (auto) (0.0-0.2) /100WBC PT (10.0-13.1) SEC INR (0.9-1.1) APTT (26.0-36.4) SEC D-Dimer High Sensitivty NG/ML Sodium (135-145) mmol/L Potassium (3.3-5.1) mmol/L Chloride (96-108) mmol/L Carbon Dioxide (22-29) mmol/L Anion Gap (12-20) BUN (9-16) mg/dL Creatinine (0.5-1.4) mg/dL Estim Creat Clear Calc Estimated GFR Random Glucose (60-115) mg/dL Calcium (8.4-10.2) mg/dL Total Bilirubin (0.0-1.0) mg/dL AST (5-31) U/L ALT (0-31) U/L Alkaline Phosphatase (39-117) U/L Troponin I High Sens 7.1 5.8 (<3.5-17.0) ng/L Total Protein (6.5-8.0) g/dL Albumin (3.5-5.0) g/dL Independent Interpretation I performed an independent interpretation of an: EKG Interpretation: Sinus heart rate is 100 [place] QRS QT within normal limits there is diffuse T-wave flattening noted Radiology Impression Discussion of test interpretation with radiology: I have reviewed the radiologist's reading. External Record Review External record reviewed: Inpatient record Chronic Conditions Tachy-sharmin Discharge Plan Discharge Clinical Impression: Chest pain Patient Disposition: Home, Self-Care Prescriptions: No Action cromolyn 100 mg/5 mL concentrate 200 mg PO QID 30 Days Qty: 1200 3RF ciprofloxacin HCl 500 mg tablet 500 mg PO BID 14 Days Qty: 28 0RF lactulose 10 gram/15 mL solution 20 g PO BID Qty: 946 0RF polyethylene glycol 3350 [Miralax] 17 gram/dose powder 17 g PO BID Qty: 510 0RF verapamil 240 mg tablet extended release 1 tab PO BID albuterol sulfate 90 mcg/actuation HFA aerosol inhaler 2 puff inhalation Q6H PRN (Reason: wheezing) Flovent HFA 110 mcg/actuation HFA aerosol inhaler 2 puff inhalation BID cholecalciferol (vitamin D3) 25 mcg (1,000 unit) capsule 1 cap PO DAILY Wakix 17.8 mg tablet PO cyanocobalamin (vitamin B-12) 1,000 mcg/mL solution 1,000 mcg IM Q4W nitroglycerin 0.4 mg tablet, sublingual 0.4 mg sublingual .Q5MINS metoprolol tartrate 50 mg tablet 50 mg PO BID desloratadine 5 mg tablet 5 mg PO DAILY Qty: 30 2RF peg-electrolyte soln [Nulytely Lemon-[place]] 420 gram recon soln 240 ml PO Q10M Qty: 4000 0RF Rx Instructions: until fecal effluent is clear ondansetron 4 mg tablet,disintegrating 4 mg PO Q8H PRN (Reason: nausea and vomiting) Qty: 20 0RF isosorbide mononitrate 30 mg tablet extended release 24 hr 30 mg PO DAILY PRN fluconazole 100 mg tablet 100 mg PO DAILY Qty: 14 0RF esomeprazole magnesium 40 mg capsule,delayed release(DR/EC) 40 mg PO DAILY Qty: 60 3RF Referrals: Abdi Marin MD [Physician] -
[2022-09-28] MEDS: iohexoL 350 MG/ML 100 ML INFUS..BTL 65 ML IV (00:49)
[2022-09-28 00:50] LABS: Troponin-I High Sensitivity 5.8 ng/L (<3.5-17.0)
[2022-09-28 00:54] VITALS: RESP 16
[2022-09-28] MEDS: HYDROmorphone HCl 0.5 MG/0.5 ML SYRINGE IVPUSH (00:54)
[2022-09-28] MEDS: 0.9 % Sodium Chloride 1,000 ML 999 ML IV ×3 (00:55)
== END 2022-09-28 03:09 | disposition home or self-care (01) ==
PROVIDERS: Physician Assistant; Emergency Provider Emergency Medicine Emergency Medical Services
DX: R07.89 Other chest pain (principal); Z79.899 Other long term (current) drug therapy
CPT/HCPCS: 36415; 71046; 71275; 80053; 84484; 85025; 85379; 85610; 85730; 93005; 96374; 99284; J1170; Q9967

== ENCOUNTER 2022-10-03 12:47 | Day surgery (SDC) | payer MEDICAID, SELFPAY ==
--- NOTE | 2022-10-02 11:06 | HO.ANESPROP2 ---
Documented by User: Lisa Bonilla NP 10/02/22 11:43 HPI - Anesthesia Eval Consult details Narrative: 31yo F for ?Upper Endoscopy with Balloon Dilitation Pacer in situ for tachy-sharmin, POTS - 07/2022 interrogation on chart s/p craniotomy for meduloblatoma 2011 REPLACED BY [facility] Active Problems Active Problems: All Active Problems (Updated 09/29/22 @ 00:00 by Background Daemon) Wheezing (Acute) Hemoptysis (Acute) Endocrinopathy (Acute) Rectocele (Acute) Epigastric abdominal pain (Acute) Constipation by outlet dysfunction (Acute) Past Medical History Medical History Active asthma Anxiety and depression B12 deficiency H/O brain tumor History of chemotherapy History of DVT (deep vein thrombosis) History of palpitations Hx of supraventricular tachycardia Narcolepsy Pacemaker Pernicious anemia POTS (postural orthostatic tachycardia syndrome) Seasonal allergies Family History Family History Mother Heart problem Maternal Grandfather Heart problem Paternal Grandmother Dementia Family history of problems with anesthesia: No Surgical History Surgical History H/O colonoscopy H/O esophagogastroduodenoscopy History of cardiac radiofrequency ablation (RFA) History of repair of rectocele Hx of appendectomy Hx of craniotomy Hx of hysterectomy History of Problems with Anesthesia: No Social History Social History Household Members: None Are you a primary rn patient care to a significant other at home: No Do you presently have visiting nurse or other home services: Yes ([employer] 4.5 week) Alcohol intake: current Alcohol intake frequency: a few times a month Patient Tobacco Use Status: Never used Tobacco Use of substances other than those prescribed or required for medical reasons: No Are you DNR?: No Advance Directives: No Advance Directives Information Provided: Yes Meds Allergies Allergy/AdvReac Type Severity Reaction Status Date / Time cefoxitin [CEFOXITIN] Allergy Severe Anaphylaxis Verified 10/03/22 12:53 sertraline Allergy Severe itching Verified 10/03/22 12:53 vancomycin [VANCOMYCIN] Allergy Severe Anaphylaxis Verified 10/03/22 12:53 Home Medications Medication Instructions Recorded Confirmed Last Taken Type cyanocobalamin (vitamin B-12) 1,000 mcg IM Q4W 10/31/20 10/03/22 Unknown History 1,000 mcg/mL injection solution metoprolol tartrate 50 mg tablet 50 mg PO BID 10/31/20 10/03/22 10/03/22 10:00 History nitroglycerin 0.4 mg sublingual 0.4 mg sublingual .Q5MINS chest 10/31/20 10/03/22 Unknown History tablet pain albuterol sulfate 90 mcg/actuation 2 puff inhalation Q6H PRN wheezing 11/17/21 10/03/22 Unknown History aerosol inhaler cholecalciferol (vitamin D3) 25 1 cap PO DAILY 11/17/21 10/03/22 Unknown History mcg (1,000 unit) capsule verapamil 240 mg tablet,extended 1 tab PO BID 11/17/21 10/03/22 10/03/22 10:00 History release isosorbide mononitrate 30 mg 30 mg PO DAILY PRN Chest Pain 04/30/22 10/03/22 Unknown History tablet,extended release 24 hr Exam Exam Date and Time: October 02, 2022 1106 Pertinent Lab Results Pertinent Lab Results: Laboratory Tests 09/27/22 09/27/22 22:40 22:40 WBC 5.2 Hgb 13.0 Hct 38.6 Plt Count 169 Sodium 138 Potassium 3.9 Chloride 101 Carbon Dioxide 24 BUN 8 L Creatinine 0.80 Narrative Narrative: EKG 09/2022 Vent. Rate : 111 BPM ? ? Atrial Rate : 111 BPM ?? P-R Int : 124 ms? QRS Dur : 074 ms ? ? QT Int : 348 ms ? ? ? P-R-T Axes : 055 080 016 degrees ?? QTc Int : 473 ms ? Sinus tachycardia ST & T wave abnormality, consider inferior ischemia Abnormal ECG When compared with ECG of 09-MAR-2019 14:05, Nonspecific T wave abnormality, worse in Anterolateral leads Assessment and Plan Assessment Anesthesia Assessment: Chart Reviewed Final Anesthetic Review Family History of Problems with Anesthesia: No History of Problems with Anesthesia: No Documented by User: Paula Velasquez MD 10/03/22 13:23 REPLACED BY [facility] Past Medical History Medical History Active asthma Anxiety and depression B12 deficiency H/O brain tumor History of chemotherapy History of DVT (deep vein thrombosis) History of palpitations Hx of supraventricular tachycardia Narcolepsy Pacemaker Pernicious anemia POTS (postural orthostatic tachycardia syndrome) Seasonal allergies Family History Family History Mother Heart problem Maternal Grandfather Heart problem Paternal Grandmother Dementia Surgical History Surgical History H/O colonoscopy H/O esophagogastroduodenoscopy History of cardiac radiofrequency ablation (RFA) History of repair of rectocele Hx of appendectomy Hx of craniotomy Hx of hysterectomy Social History Social History Household Members: None Are you a primary rn patient care to a significant other at home: No Do you presently have visiting nurse or other home services: Yes ([employer] 4.5 week) Alcohol intake: current Alcohol intake frequency: a few times a month Patient Tobacco Use Status: Never used Tobacco Use of substances other than those prescribed or required for medical reasons: No Are you DNR?: No Advance Directives: No Advance Directives Information Provided: Yes Meds Allergies Allergy/AdvReac Type Severity Reaction Status Date / Time cefoxitin [CEFOXITIN] Allergy Severe Anaphylaxis Verified 10/03/22 12:53 sertraline Allergy Severe itching Verified 10/03/22 12:53 vancomycin [VANCOMYCIN] Allergy Severe Anaphylaxis Verified 10/03/22 12:53 Home Medications Medication Instructions Recorded Confirmed Last Taken Type cyanocobalamin (vitamin B-12) 1,000 mcg IM Q4W 10/31/20 10/03/22 Unknown History 1,000 mcg/mL injection solution metoprolol tartrate 50 mg tablet 50 mg PO BID 10/31/20 10/03/22 10/03/22 10:00 History nitroglycerin 0.4 mg sublingual 0.4 mg sublingual .Q5MINS chest 10/31/20 10/03/22 Unknown History tablet pain albuterol sulfate 90 mcg/actuation 2 puff inhalation Q6H PRN wheezing 11/17/21 10/03/22 Unknown History aerosol inhaler cholecalciferol (vitamin D3) 25 1 cap PO DAILY 11/17/21 10/03/22 Unknown History mcg (1,000 unit) capsule verapamil 240 mg tablet,extended 1 tab PO BID 11/17/21 10/03/22 10/03/22 10:00 History release isosorbide mononitrate 30 mg 30 mg PO DAILY PRN Chest Pain 04/30/22 10/03/22 Unknown History tablet,extended release 24 hr Exam Airway Mallampati Class: II TM Dist: >3cm Neck ROM: Full Heart: rrr Lungs: cta Assessment and Plan Assessment Anesthesia Assessment: Anesthesia Plan Discussed Final Anesthetic Review NPO: Yes ASA Class: II Final Preanesthetic Review: No Changes in Pt Med Stat, Meds/Allgs Chart Reviewed, Consent Obtained/Reviewed and Anes Risks/Benef Reviewed Patient Risk: Low Procedure Risk: Low Anesthetic Plan Anesthetic Plan: MAC: Disposition: Standard PACU
[2022-10-03] VITALS (8 sets, daily range): BP systolic 100–104; BP diastolic 60–65; PULSE 62–89; RESP 15–18; TEMP 36.6–37.2; O2SAT 99–1000; BMI 27.3
[2022-10-03] MEDS: Lactated Ringers 1,000 ML 100 ML IVCONT (13:37)
--- NOTE | 2022-10-03 13:43 | MHC.SHP ---
Pre-Procedural Eval Section A Date of Service: 10/03/22 Section B Chief Complaint: dysphagia Relevant Family History (Specify if Yes): No Relevant Social History: None Present Medications: see Short Stay Collaborative assessment Medical History: Significant History (Active asthma Anxiety and depression B12 deficiency H/O brain tumor History of chemotherapy History of DVT (deep vein thrombosis) History of palpitations Hx of supraventricular tachycardia Narcolepsy Pacemaker Pernicious anemia POTS (postural orthostatic tachycardia syndrome) Seasonal allergies) History of Previous Operations: Relevant previous surgery/procedure and date(s) (H/O colonoscopy H/O esophagogastroduodenoscopy History of cardiac radiofrequency ablation (RFA) History of repair of rectocele Hx of appendectomy Hx of craniotomy Hx of hysterectomy) Allergies: Allergies Allergy/AdvReac Type Severity Reaction Status Date / Time cefoxitin [CEFOXITIN] Allergy Severe Anaphylaxis Verified 10/03/22 12:53 sertraline Allergy Severe itching Verified 10/03/22 12:53 vancomycin [VANCOMYCIN] Allergy Severe Anaphylaxis Verified 10/03/22 12:53 Review of Systems Sugical H&P ROS: Negative: Constitution, Cardiovascular, Respiratory, Neurological, Psychiatric, Hem-Onc, Allergic/Immunologic, Gastrointestinal, Genitourinary, Musculoskeletal, Integumentary, Endocrine and Eyes/Ears/Nose/Throat Exam Surgical H&P Exam: Normal: HEENT, Normal: Heart, Normal: Lungs, Normal: Extremities, Normal: Abdomen, Normal: Skin and Normal: Neurological Plan Diagnosis/Plan: Unchanged I have reviewed the history and physical and performed a pertinent physical examination on my patient. No changes have occurred unless specified. Time Spent With Patient Time: Total time managing care of this patient today ____ minutes.
[2022-10-03] MEDS: Albuterol Sulfate (0.083%) 2.5 MG/3 ML VIAL.NEB INHALE (13:44)
--- NOTE | 2022-10-03 14:10 | W.PM.OPN ---
Operative Note Operative Note Date of Service: 10/03/22 Narrative: Procedure Description: EGD Indication: dysphagia Anesthesia: MAC FLEXIBLE TRANSORAL UPPER GASTROINTESTINAL ENDOSCOPY UPPER ENDOSCOPY Consent: Indications for the procedure and potential complications of bleeding, perforation, reaction to medications and missed diagnosis were discussed with the patient and informed consent was obtained. Instrument: Olympus GIF H 190 J mid size upper endoscope Monitoring: Vital signs and clinical assessment, continuous EKG monitoring, Pulse oximetry, Carbon Dioxide monitoring and blood pressure monitoring were done throughout the procedure. Procedure: The patient was placed in the left lateral decubitis position and pre-procedure medications were administered and a bite block was placed. The endoscope was inserted into the mouth and advanced under direct vision to the third part of duodenum. A careful inspection was made as the upper endoscope was withdrawn including a retroflexed examination of the proximal stomach; Findings and interventions are described below. Findings: Larynx:normal Esophagus: GE junction at 38 cm, diaphragm hiatus at 38 cm, mild esophagitis with schatzki ring noted. Savary dilation using wire was done to 16 mm. No tears noted. Stomach: Normal mucosa. Grade 2 flap valve on retroflexed examination of the cardia with some laxity of the LES noted. Duodenum: Normal bulb and descending duodenum, Intervention: Savary dilation with wire Impression/Findings: schatzki ring mild esophagitis lax LES PLAN: cont with PPI PO diet as tolerated
[2022-10-03] MEDS: ondansetron HCL 4 MG/2 ML VIAL IVPUSH (14:44)
== END 2022-10-03 16:13 ==
PROVIDERS: Visit Provider Internal Medicine Gastroenterology
PROC: (CPT 43248; principal; 2022-10-03 14:20)
DX: K22.2 Esophageal obstruction (principal); K44.9 Diaphragmatic hernia without obstruction or gangrene; K22.4 Dyskinesia of esophagus; K20.80 Other esophagitis without bleeding; J45.909 Unspecified asthma, uncomplicated; F41.8 Other specified anxiety disorders; D51.0 Vitamin B12 deficiency anemia due to intrinsic factor deficiency; G90.A Postural orthostatic tachycardia syndrome [POTS]; I47.1 Supraventricular tachycardia; Z95.0 Presence of cardiac pacemaker; Z85.841 Personal history of malignant neoplasm of brain; Z92.21 Personal history of antineoplastic chemotherapy; Z86.718 Personal history of other venous thrombosis and embolism; Z79.01 Long term (current) use of anticoagulants; Z79.899 Other long term (current) drug therapy; Z88.1 Allergy status to other antibiotic agents; Z88.8 Allergy status to other drugs, medicaments and biological substances
CPT/HCPCS: 43248; 94640; C1769; J2405

== ENCOUNTER 2023-01-04 14:33 | Outpatient (REF) | payer OTHER, SELFPAY ==
[2023-01-04 16:05] LABS: MANUAL DIFF FLAG NO
[2023-01-04 16:47] LABS: Basophils Percent Auto 0.5 % (0-2); Hematocrit 43.2 % (37.0-47.0); Hemoglobin 14.3 g/dl (12.0-16.0); Imm Gran Abs Auto 0.01 X10*3/uL (0.00-0.03); Imm Gran Pct Auto 0.3 % (0.0-0.4); Lymphocytes Absolute Auto 1.2 X10*3/uL (1.2-4.9); Lymphocytes Percent Auto 30.8 % (20-40); Mean Corpuscular HGB Conc 33.1 g/dl (31.0-35.0); Mean Corpuscular Hemoglobin 28.7 pg (27.0-33.0); Mean Corpuscular Volume 86.7 fL (80.0-98.0); Mean Platelet Volume 12.5 fL (9.4-12.3); Monocytes Absolute Auto 0.2 X10*3/uL (0.1-1.2); Monocytes Percent Auto 4.8 % (2-11); Neutrophils Absolute Auto 2.5 x10*3/uL (2.0-8.3); Neutrophils Percent Auto 62.6 % (45-73); Platelet Count 207 X10*3/uL (160-400); Red Blood Count 4.98 X10*6/uL (4.20-5.50)
[2023-01-04 17:08] LABS: Anion Gap 16 (12-20); Blood Urea Nitrogen 9 mg/dL (9-16); Calcium 10.2 mg/dL (8.4-10.2); Carbon Dioxide 21 mmol/L (22-29); Chloride 107 mmol/L (96-108); Estimated Glomerular Filt Rate > 60; Glucose Random 79 mg/dL (60-115); Potassium 4.3 mmol/L (3.3-5.1); Sodium 140 mmol/L (135-145)
[2023-01-04 17:30] LABS: Erythrocyte Sedimentation Rate 11 MM/HR (0-20)
[2023-01-07 12:23] LABS: Myeloperoxidase Antibody <1.0 AI; Proteinase 3 PR3 Antibodies <1.0 AI
[2023-01-08 14:39] LABS: Immunoglobulin G Subclass 1 728 mg/dL (382-929); Immunoglobulin G Subclass 2 399 mg/dL (241-700); Immunoglobulin G Subclass 3 52 mg/dL (22-178); Immunoglobulin G Subclass 4 52.3 mg/dL (4-86); Immunoglobulin G Total 1235 mg/dL (600-1640)
[2023-01-08 15:09] LABS: Anti Nuclear Antibody Screen NEGATIVE (NEGATIVE)
[2023-01-08 19:53] LABS: IgA 97 mg/dL (47-310); IgG 1285 mg/dL (600-1640); IgM 240 mg/dL (50-300)
[2023-01-11 15:18] LABS: Angiotensin Converting Enzyme >360 U/L (9-67)
== END 2023-01-04 14:34 | disposition home or self-care (01) ==
LOC: HO.LAB 14:33
PROVIDERS: PCP Internal Medicine; Visit Provider Hospitalist
DX: R04.2 Hemoptysis (principal); R06.00 Dyspnea, unspecified; J45.909 Unspecified asthma, uncomplicated; Z85.841 Personal history of malignant neoplasm of brain; Z92.21 Personal history of antineoplastic chemotherapy
CPT/HCPCS: 36415; 80048; 82164; 82784; 82785; 85025; 85652; 86003; 86021; 86038; 99202

== ENCOUNTER 2023-01-21 15:10 | Outpatient (REF) | payer OTHER, SELFPAY ==
--- NOTE | 2023-01-21 16:45 | PFT_ITS ---
FLOWS: 1. FEV1 82% of predicted at 1.72 L. 2. FVC 86% of predicted at 2.12 L. 3. FEV1 to FVC ratio of 0.81. 4. Positive bronchodilator response. LUNG VOLUMES: 1. Patient was unable to perform lung volume maneuver despite multiple attempts. 2. Diffusion capacity is normal. IMPRESSION: Severe obstructive ventilatory defect with normalization after administration of bronchodilator. Davonte Wolff MD AP/MODL / [id number]
== END 2023-01-21 15:11 | disposition home or self-care (01) ==
LOC: HO.RESP 15:10
PROVIDERS: PCP Internal Medicine; Visit Provider Hospitalist
DX: R06.00 Dyspnea, unspecified (principal)
CPT/HCPCS: 94060; 94727

== ENCOUNTER 2023-01-24 07:21 | Day surgery (SDC) | payer OTHER, SELFPAY ==
[2023-01-21 13:50] VITALS: BMI 28.2
--- NOTE | 2023-01-23 10:43 | P.CONAN_ITS ---
Documented by User: Lisa Bonilla NP 01/23/23 10:48 HPI - Anesthesia Eval Consult details Narrative: 32yo F for Bronchoscopy Fiberoptic s/p EGD 09/2022 with TIVA Pacer in situ for tachy-sharmin, POTS - 10/2022 interrogation on chart s/p craniotomy for meduloblatoma 2011 [facility] Active Problems Active Problems: All Active Problems (Updated 01/21/23 @ 15:13 by Mine Roberts RN) Epigastric abdominal pain (Acute) Constipation by outlet dysfunction (Acute) Rectocele (Acute) Endocrinopathy (Acute) Hemoptysis (Acute) Wheezing (Acute) Dyspnea (Acute) Past Medical History Medical History (Updated 01/21/23 @ 15:13 by Mine Roberts RN) Active asthma Anxiety and depression B12 deficiency Dyspnea H/O brain tumor History of chemotherapy History of DVT (deep vein thrombosis) History of palpitations Hx of supraventricular tachycardia Narcolepsy Pacemaker Pernicious anemia POTS (postural orthostatic tachycardia syndrome) Seasonal allergies Family History Family History Mother Heart problem Maternal Grandfather Heart problem Paternal Grandmother Dementia Family history of problems with anesthesia: No Surgical History Surgical History (Updated 01/21/23 @ 13:44 by Mine Roberts RN) H/O colonoscopy H/O esophagogastroduodenoscopy History of cardiac radiofrequency ablation (RFA) History of repair of rectocele Hx of appendectomy Hx of craniotomy Hx of hysterectomy History of Problems with Anesthesia: No Social History Social History Household Members: None Are you a primary ocular care aide to a significant other at home: No Do you presently have visiting nurse or other home services: Yes ([employer] 4.5 week) Alcohol intake: current Alcohol intake frequency: a few times a month Patient Tobacco Use Status: Never used Tobacco Meds Allergies Allergy/AdvReac Type Severity Reaction Status Date / Time cefoxitin [CEFOXITIN] Allergy Severe Anaphylaxis Verified 01/04/23 14:40 sertraline Allergy Severe itching Verified 01/04/23 14:40 vancomycin [VANCOMYCIN] Allergy Severe Anaphylaxis Verified 01/04/23 14:40 Home Medications Medication Instructions Recorded Confirmed Last Taken Type cyanocobalamin (vitamin B-12) 1,000 mcg IM Q4W 10/31/20 10/03/22 Unknown History 1,000 mcg/mL injection solution metoprolol tartrate 50 mg tablet 50 mg PO BID 10/31/20 01/21/23 10/03/22 10:00 History nitroglycerin 0.4 mg sublingual 0.4 mg sublingual .Q5MINS chest 10/31/20 01/21/23 Unknown History tablet pain albuterol sulfate 90 mcg/actuation 2 puff inhalation Q6H PRN wheezing 11/17/21 10/03/22 Unknown History aerosol inhaler cholecalciferol (vitamin D3) 25 1 cap PO DAILY 11/17/21 10/03/22 Unknown History mcg (1,000 unit) capsule verapamil 240 mg tablet,extended 1 tab PO BID 11/17/21 01/21/23 10/03/22 10:00 History release isosorbide mononitrate 30 mg 30 mg PO DAILY PRN Chest Pain 04/30/22 01/21/23 Unknown History tablet,extended release 24 hr budesonide-formoterol HFA 160 2 puff inhalation BID 01/04/23 01/21/23 Unknown History mcg-4.5 mcg/actuation aerosol inhaler (Symbicort) dextroamphetamine-amphetamine ER 1 cap PO QAM 01/04/23 01/21/23 Unknown History 20 mg 24hr capsule,extend release (Adderall XR) lorazepam 0.5 mg tablet 0.5 mg PO BID PRN anxiety 01/04/23 01/21/23 Unknown History Exam Exam Date and Time: January 23, 2023 1043 Height,Weight and Vital Signs: Height 5 ft 1 in Weight 67.585 kg Pertinent Lab Results Pertinent Lab Results: Laboratory Tests 01/04/23 01/04/23 15:47 15:47 WBC 4.0 L Hgb 14.3 Hct 43.2 Plt Count 207 Sodium 140 Potassium 4.3 Chloride 107 Carbon Dioxide 21 L BUN 9 Creatinine 0.90 Narrative Narrative: EKG 09/2022 Vent. Rate : 111 BPM ? ? Atrial Rate : 111 BPM ?? P-R Int : 124 ms? QRS Dur : 074 ms ? ? QT Int : 348 ms ? ? ? P-R-T Axes : 055 080 016 degrees ?? QTc Int : 473 ms ? Sinus tachycardia ST & T wave abnormality, consider inferior ischemia Abnormal ECG When compared with ECG of 09-MAR-2019 14:05, Nonspecific T wave abnormality, worse in Anterolateral leads ECHO 11/2022 Nml LV size, wall thickness, sys function. LVEF 55-60%. Nml regional wall motionl Nml LV diastolic function. Nml RV size. Nml RV global systolic function. PASP nml Atrial nml in size No hemodynamically signif valve disease Assessment and Plan Assessment Anesthesia Assessment: Chart Reviewed Final Anesthetic Review Family History of Problems with Anesthesia: No History of Problems with Anesthesia: No Documented by User: Pantera Guerrero MD 01/24/23 08:05 [facility] Past Medical History Medical History (Updated 01/21/23 @ 15:13 by Mine Roberts, REGINALD) Active asthma Anxiety and depression B12 deficiency Dyspnea H/O brain tumor History of chemotherapy History of DVT (deep vein thrombosis) History of palpitations Hx of supraventricular tachycardia Narcolepsy Pacemaker Pernicious anemia POTS (postural orthostatic tachycardia syndrome) Seasonal allergies Family History Family History Mother Heart problem Maternal Grandfather Heart problem Paternal Grandmother Dementia Surgical History Surgical History (Updated 01/21/23 @ 13:44 by Mine Roberts RN) H/O colonoscopy H/O esophagogastroduodenoscopy History of cardiac radiofrequency ablation (RFA) History of repair of rectocele Hx of appendectomy Hx of craniotomy Hx of hysterectomy Social History Social History Household Members: None Are you a primary ocular care aide to a significant other at home: No Do you presently have visiting nurse or other home services: Yes ([employer] 4.5 week) Alcohol intake: current Alcohol intake frequency: a few times a month Patient Tobacco Use Status: Never used Tobacco Meds Allergies Allergy/AdvReac Type Severity Reaction Status Date / Time cefoxitin [CEFOXITIN] Allergy Severe Anaphylaxis Verified 01/04/23 14:40 sertraline Allergy Severe itching Verified 01/04/23 14:40 vancomycin [VANCOMYCIN] Allergy Severe Anaphylaxis Verified 01/04/23 14:40 Home Medications Medication Instructions Recorded Confirmed Last Taken Type cyanocobalamin (vitamin B-12) 1,000 mcg IM Q4W 10/31/20 10/03/22 Unknown History 1,000 mcg/mL injection solution metoprolol tartrate 50 mg tablet 50 mg PO BID 10/31/20 01/21/23 10/03/22 10:00 History nitroglycerin 0.4 mg sublingual 0.4 mg sublingual .Q5MINS chest 10/31/20 01/21/23 Unknown History tablet pain albuterol sulfate 90 mcg/actuation 2 puff inhalation Q6H PRN wheezing 11/17/21 10/03/22 Unknown History aerosol inhaler cholecalciferol (vitamin D3) 25 1 cap PO DAILY 11/17/21 10/03/22 Unknown History mcg (1,000 unit) capsule verapamil 240 mg tablet,extended 1 tab PO BID 11/17/21 01/21/23 10/03/22 10:00 History release isosorbide mononitrate 30 mg 30 mg PO DAILY PRN Chest Pain 04/30/22 01/21/23 Unknown History tablet,extended release 24 hr budesonide-formoterol HFA 160 2 puff inhalation BID 01/04/23 01/21/23 Unknown History mcg-4.5 mcg/actuation aerosol inhaler (Symbicort) dextroamphetamine-amphetamine ER 1 cap PO QAM 01/04/23 01/21/23 Unknown History 20 mg 24hr capsule,extend release (Adderall XR) lorazepam 0.5 mg tablet 0.5 mg PO BID PRN anxiety 01/04/23 01/21/23 Unknown History Exam Airway Mallampati Class: II TM Dist: >3cm Heart: rrr Lungs: cta Assessment and Plan Final Anesthetic Review NPO: Yes ASA Class: III Final Preanesthetic Review: No Changes in Pt Med Stat, Meds/Allgs Chart Reviewed, Consent Obtained/Reviewed and Anes Risks/Benef Reviewed Patient Risk: Intermediate Procedure Risk: Intermediate Anesthetic Plan Anesthetic Plan: GA and Agree w/ Assess. and Plan Disposition: Standard PACU
[2023-01-24] VITALS (7 sets, daily range): BP systolic 111–123; BP diastolic 65–78; PULSE 83–104; RESP 14–18; TEMP 36.3; O2SAT 96–100
--- NOTE | 2023-01-24 08:28 | MHC.SHP ---
Pre-Procedural Eval Section A Date of Service: 01/24/23 The patient is an INPATIENT: No Changes since office visit: No Cold of Flu in the past 2 weeks, No New Medical Problems, No Changes in Medication and No Patient answered all questions The History & Physical has been completed within 30 days and I have reviewed it.: Yes Section B Chief Complaint: Hemoptysis Allergies: Allergies Allergy/AdvReac Type Severity Reaction Status Date / Time cefoxitin [CEFOXITIN] Allergy Severe Anaphylaxis Verified 01/04/23 14:40 sertraline Allergy Severe itching Verified 01/04/23 14:40 vancomycin [VANCOMYCIN] Allergy Severe Anaphylaxis Verified 01/04/23 14:40 Plan I have reviewed the history and physical and performed a pertinent physical examination on my patient. No changes have occurred unless specified. Time Spent With Patient Time: Total time managing care of this patient today ____ minutes.
--- NOTE | 2023-01-24 08:48 | PC.NURSE ---
charting completed on downtime paperwork. [facility] was down. paperwork in chart.
--- NOTE | 2023-01-24 09:26 | PM.OP ---
Brief Operative Note Date of Service: 01/24/23 Pre-op diagnosis: hemoptysis Post-op diagnosis: same Procedure: bronchoscopy with washings and biopsies Implants: Surgeon: Justen Nettles MD Anesthesia: GLMA Was an [employer] Maker used for this Procedure?: No Estimated blood loss (mL): 0 Pathology: other (endobronchial biopsies from right and left) Condition: stable Disposition: same day
--- NOTE | 2023-01-24 10:24 | OP_ITS ---
DATE OF SERVICE: 01/24/2023 SURGEON: Justen Nettles MD PREOPERATIVE DIAGNOSIS: Hemoptysis. POSTOPERATIVE DIAGNOSIS: Hemoptysis, although none seen. PROCEDURE PERFORMED: Bronchoscopy with washings and biopsies ESTIMATED BLOOD LOSS: COMPLICATIONS: ANESTHESIA: LMA. ASSISTANTS: SPECIMENS: PARER: None. PROCEDURE IN DETAIL: After the patient was adequately sedated, the flexible digital bronchoscope was inserted via the LMA, to the level of larynx. The vocal cords and larynx appears to be normal in structure, although the larynx appears to be slightly inflamed. No ulcers or active bleeding noted. After instilling lidocaine, the bronchoscope was then passed the vocal cords to the level of the trachea. The tracheal mucosa appeared normal without any evidence of any erosions or lesions to explain the bleeding. After instilling of additional lidocaine, the bronchoscope was then navigated through the tracheobronchial tree, that was examined up to the subsegmental level. No evidence of any active bleeding. No evidence of any hemosiderin. No evidence of any old blood. No evidence of any ulcers or any inflammatory changes to the mucosa. She had some minimal mucoid secretions. Bronchial washings were collected bilaterally, sent for Cytology and also for Gram stain. In addition to that, using forceps endobronchial biopsies were collected from the right middle lobe area, and ultimately also collected endobronchial biopsies from the left lung. There was some minimal bleeding after the biopsies and iced saline was used with good hemostasis. No evidence of any active bleeding at the end of the procedure. The bronchoscope was then removed and placed to her right and then left nares. I did evaluate the nasal passages all the way to the posterior nasopharynx. No evidence of any active bleeding, although there was some edematous looking turbinates, and a significant amount of mucous secretions, suggesting the possibility of epistaxis. No evidence of any active bleeding though at this time. INTERPRETATION: 1. Successful endobronchial biopsies of both lungs. 2. Washings bilaterally. 3. No active bleeding in the upper or lower respiratory tract. Justen Nettles MD MR/GINA / [id number]
== END 2023-01-24 12:02 | disposition home or self-care (01) ==
PROVIDERS: PCP Internal Medicine; Visit Provider Hospitalist
PROC: 0BJ08ZZ Inspection of Tracheobronchial Tree, Via Natural or Artificial Opening Endoscopic (ICD-10-PCS; CPT 31622; principal; 2023-01-24 08:30)
DX: R04.2 Hemoptysis (principal); R06.00 Dyspnea, unspecified; J45.909 Unspecified asthma, uncomplicated; Z88.1 Allergy status to other antibiotic agents; Z88.8 Allergy status to other drugs, medicaments and biological substances
CPT/HCPCS: 31625; 87070; 87205; 88112; 88305

== ENCOUNTER 2023-02-07 10:32 | Outpatient (AMB) | payer OTHER, SELFPAY ==
[2023-02-07 10:37] VITALS: BP 124/70; PULSE 90; O2SAT 98; BMI 28.1
--- NOTE | 2023-02-07 10:37 | MHC.OFFVIS ---
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 Ultimately also had a DVT requiring anticoagulation. She has been having increasing dyspnea on exertion. Moderate severity progressive in nature. In addition to that she has noticed some blood in the sputum. At times it is mixed in with mucus. Sometimes it is bright red. She did show me some pictures. usually is minimal in amount may be a dime size. This episode occur about once a week per the patient. The last time she was evaluated was in the ER because of shortness of breath, chest pains and hemoptysis. Her D-dimer was indeed elevated. The patient did have a CTA which I personally reviewed with her. No evidence of any parenchymal or airspace disease. No evidence of any thromboembolic disease. The patient was placed on Symbicort with partial improvement of the symptoms. The patient also has had issues with dysphagia. She did undergo will go a recent endoscopy demonstrating some slight strictures. She did have dilation. It appears that she is doing a little better from this condition. At this point in view of her ongoing hemoptysis will try to plan a bronchoscopy to better assess the airways and see if there is any evidence of any active bleeding from any particular area. Also can assess her posterior pharynx and nasal passages to make sure she is not bleeding from there as well. Will request blood work at this time looking for connective tissue disorder in order to see if we can find an explanation as far as the Rule diagnosis for her ongoing issues. The patient is here for a pulmonary follow up visit. She is s/p bronchoscopy. No evidence of hemoptysis or any source. Biopsies demonstrating some mild inflammation. Bloodwork with significantly elevated TAMEKA level suggesting sarcoidosis. CT chest with +pulmonary nodules. Having visual changes and also has a history of heart block, s/p pacemaker. I looked into the evaluation at [facility] [place], but, did not see any evaluation for infiltrative heart disease. She continues to use her inhalers with partial resolution of her respiratory symptoms. [facility] Medical History (Updated 02/07/23 @ 21:55 by Justen Nettles MD) Active asthma Anxiety and depression B12 deficiency Dyspnea H/O brain tumor History of chemotherapy History of DVT (deep vein thrombosis) History of palpitations Hx of supraventricular tachycardia Narcolepsy Pacemaker Pernicious anemia POTS (postural orthostatic tachycardia syndrome) Pulmonary nodules Seasonal allergies Surgical History (Updated 01/21/23 @ 13:44 by Mine Roberts RN) H/O colonoscopy H/O esophagogastroduodenoscopy History of cardiac radiofrequency ablation (RFA) History of repair of rectocele Hx of appendectomy Hx of craniotomy Hx of hysterectomy Family History Mother Heart problem Maternal Grandfather Heart problem Paternal Grandmother Dementia Social History Household Members: None Are you a primary career center advisor to a significant other at home: No Do you presently have visiting nurse or other home services: Yes ([employer] 4.5 week) Alcohol intake: current Alcohol intake frequency: a few times a month Patient Tobacco Use Status: Never used Tobacco Review of Systems Const Reports fatigue and Denies night sweats Eyes Reports change in vision ENT Reports dysphagia and Denies epistaxis Card Denies chest pain, Reports dyspnea and Reports dyspnea on exertion Resp Reports hemoptysis, Reports dyspnea, Reports dyspnea on exertion and Denies wheezing GI Reports as per HPI, Reports constipation and Reports dysphagia Musc Reports no additional complaints Skin/Breast Denies rash Neuro Reports as per HPI Endo Reports fatigue Fabian/Lymph Denies easy bleeding, Denies easy bruising and Denies lymphadenopathy Aller/Immun Denies wheezing Physical Exam Vital Signs: Last Vital Signs Pulse 90 02/07/23 10:37 BP 124/70 02/07/23 10:37 Pulse Ox 98 02/07/23 10:37 Oxygen Delivery Method Room Air 02/07/23 10:37 BMI result Body Mass Index 28.1 Const General: comfortable HEENT Head: Yes normocephalic Eyes General: appearance normal, both eyes and all related structures Neck Neck: Yes supple Chest Chest palpation & inspection: normal inspection of the chest Resp Effort & Inspection: normal respiratory effort Auscultation: clear to auscultation bilaterally Cardio Rate: regular rate Rhythm: regular rhythm Heart sounds: S1 normal heart sound present and S2 normal heart sound present GI Palpation (GI): Soft to palpation Skin General skin exam: no rashes or lesions noted Extrem General: Yes no clubbing, cyanosis or edema Assessment & Plan Assessment & Plan (1) Hemoptysis: Comment: resolved Code(s): R04.2 - Hemoptysis (2) Dyspnea: Code(s): R06.00 - Dyspnea, unspecified (3) Pulmonary nodules: Code(s): R91.8 - Other nonspecific abnormal finding of lung field (4) Pacemaker: Comment: 2017 tachybradycardia syndrome Code(s): Z95.0 - Presence of cardiac pacemaker Plan visual changes, need to have an eye exam to r/o uveitis trial prednisone taper continue respiratory therapy Assessing for possible sarcoidosis with very high TAMEKA level. Will speak to her EP surgical elastic knitter hand frame re: cardiac PET to assess for cardiac sarcoid F/U 2 months Coding Level of Care Code Est Pt Level 4 (50570) Diagnoses Hemoptysis R04.2 Dyspnea R06.00 Pulmonary nodules R91.8 Pacemaker Z95.0 Time Spent (min) 20
== END 2023-02-07 11:08 | disposition home or self-care (01) ==
PROVIDERS: PCP Internal Medicine; Visit Provider Hospitalist
DX: R04.2 Hemoptysis (principal); R06.00 Dyspnea, unspecified; R91.8 Other nonspecific abnormal finding of lung field; Z95.0 Presence of cardiac pacemaker
CPT/HCPCS: 99214

== ENCOUNTER → 2023-02-07 10:32 | Outpatient (BNVA) | payer OTHER, SELFPAY | PROVIDERS: PCP Internal Medicine; Visit Provider Hospitalist | DX: R91.8 Other nonspecific abnormal finding of lung field (principal); R06.00 Dyspnea, unspecified; Z95.0 Presence of cardiac pacemaker | CPT/HCPCS: 99212 ==

== ENCOUNTER 2023-03-18 09:48 | Outpatient (REF) | payer OTHER, SELFPAY ==
[2023-03-18 11:41] LABS: MANUAL DIFF FLAG NO
[2023-03-18 12:01] LABS: Basophils Percent Auto 0.8 % (0-2); Eosinophils Percent Auto 0.4 % (0-4); Hematocrit 42.7 % (37.0-47.0); Hemoglobin 14.6 g/dl (12.0-16.0); Imm Gran Abs Auto 0.01 X10*3/uL (0.00-0.03); Imm Gran Pct Auto 0.2 % (0.0-0.4); Lymphocytes Percent Auto 20.1 % (20-40); Mean Corpuscular HGB Conc 34.2 g/dl (31.0-35.0); Mean Corpuscular Hemoglobin 28.7 pg (27.0-33.0); Mean Corpuscular Volume 84.1 fL (80.0-98.0); Mean Platelet Volume 12.6 fL (9.4-12.3); Monocytes Absolute Auto 0.3 X10*3/uL (0.1-1.2); Monocytes Percent Auto 5.1 % (2-11); Neutrophils Absolute Auto 3.8 x10*3/uL (2.0-8.3); Neutrophils Percent Auto 73.4 % (45-73); Platelet Count 182 X10*3/uL (160-400); Red Blood Count 5.08 X10*6/uL (4.20-5.50); Red Cell Distribution Width 13.6 % (11.0-16.0); White Blood Count 5.1 X10*3/uL (4.8-10.8)
[2023-03-18 12:26] LABS: Sickle Cell Scr NEGATIVE (NEGATIVE)
[2023-03-18 13:00] LABS: Alanine Aminotransferase 15 U/L (0-31); Albumin Level 4.7 g/dL (3.5-5.0); Alkaline Phosphatase 80 U/L (39-117); Anion Gap 13 (12-20); Aspartate Amino Transferase 16 U/L (5-31); Bilirubin Direct 0.3 mg/dL (0.0-0.5); Bilirubin Total 0.9 mg/dL (0.0-1.0); Blood Urea Nitrogen 7 mg/dL (9-16); Calcium 10.1 mg/dL (8.4-10.2); Carbon Dioxide 23 mmol/L (22-29); Chloride 107 mmol/L (96-108); Estimated Glomerular Filt Rate > 60; Glucose Random 97 mg/dL (60-115); Potassium 3.7 mmol/L (3.3-5.1); Sodium 139 mmol/L (135-145); Total Protein 8.2 g/dL (6.5-8.0)
[2023-03-18 13:09] LABS: D Dimer High Sensitivity 378 NG/ML
[2023-03-18 13:40] LABS: Erythrocyte Sedimentation Rate 11 MM/HR (0-20)
[2023-03-19 23:14] LABS: Antibody to SS-A Antigen <1.0 NEG AI (<1.0 NEG); Antibody to SS-B Antigen <1.0 NEG AI (<1.0 NEG); Scleroderma 70 Antibody <1.0 NEG AI (<1.0 NEG)
[2023-03-20 14:13] LABS: Cyclic Citrullinated Peptide <16 UNITS
[2023-03-22 22:28] LABS: PTT (LAC) Screen 34 sec (<=40)
[2023-03-24 04:00] LABS: Angiotensin Converting Enzyme >360 U/L (9-67)
== END 2023-03-18 09:49 | disposition home or self-care (01) ==
LOC: HO.LAB 09:48
PROVIDERS: PCP Internal Medicine; Visit Provider Hospitalist
DX: R04.2 Hemoptysis (principal); R07.81 Pleurodynia; Z95.0 Presence of cardiac pacemaker
CPT/HCPCS: 36415; 80048; 80076; 82164; 85025; 85379; 85597; 85598; 85613; 85652; 85660; 85670; 85730; 86200; 86235; 94664; 99212

== ENCOUNTER 2023-03-18 09:48 | Outpatient (AMB) | payer OTHER, SELFPAY ==
--- NOTE | 2023-03-18 09:53 | A.OFFVIS_ITS ---
Intake Vital Signs 03/18/23 09:54 Height 5 ft 1 in Weight 148 lb 12.992 oz BMI 28.1 BP 126/70 Blood Pressure Location Lt brachial Position Sitting Pulse 89 Pulse Source Pulse Oximeter Pulse Oximetry (%) 100 Intake Visit Reasons: hemoptysis Resaw Operator Required: No Allergies cefoxitin [CEFOXITIN] Allergy (Severe, Verified 03/18/23 09:57) Anaphylaxis sertraline Allergy (Severe, Verified 03/18/23 09:57) itching vancomycin [VANCOMYCIN] Allergy (Severe, Verified 03/18/23 09:57) Anaphylaxis HPI HPI Comments History of Present Illness Details The patient is a 32-year-old woman with a known history of a brain cancer status post chemotherapy many years ago. Ultimately also had a DVT requiring anticoagulation. She has been having increasing dyspnea on exertion. Moderate severity progressive in nature. In addition to that she has noticed some blood in the sputum. At times it is mixed in with mucus. Sometimes it is bright red. She did show me some pictures. usually is minimal in amount may be a dime size. This episode occur about once a week per the patient. The last time she was evaluated was in the ER because of shortness of breath, chest pains and hemoptysis. Her D-dimer was indeed elevated. The patient did have a CTA which I personally reviewed with her. No evidence of any parenchymal or airspace disease. No evidence of any thromboembolic disease. The patient was placed on Symbicort with partial improvement of the symptoms. The patient also has had issues with dysphagia. She did undergo will go a recent endoscopy demonstrating some slight strictures. She did have dilation. It appears that she is doing a little better from this condition. At this point in view of her ongoing hemoptysis will try to plan a bronchoscopy to better assess the airways and see if there is any evidence of any active bleeding from any particular area. Also can assess her posterior pharynx and nasal passages to make sure she is not bleeding from there as well. Will request blood work at this time look ing for connective tissue disorder in order to see if we can find an explanation as far as the [place] diagnosis for her ongoing issues. The patient is here for a pulmonary follow up visit. She is s/p bronchoscopy. No evidence of hemoptysis or any source. Biopsies demonstrating some mild inflammation. Bloodwork with significantly elevated TAMEKA level suggesting sarcoidosis. CT chest with +pulmonary nodules. Having visual changes and also has a history of heart block, s/p pacemaker. [place] looked into [place] [facility] [place], did not see any evaluation for infiltrative heart disease. She continues to use her inhalers with partial resolution of her respiratory symptoms. 03/18/2023 the patient is here for a sick visit. Apparently she started having more hemoptysis and also pleuritic chest pain. With her when she would take a deep breath specially between the a scapula on back and also in the substernal area. [id number] severity. Also complaining of shortness of breath. She has noted that she has been more tachycardic. She still waiting for her cardiac PET. Had to be rescheduled based on the fact that the [facility] PET scan broke down. She was prescribed prednisone. Sleep but she only took for 2 days did not like the way it made her feel and she stop that therefore is hard to know if actual was effective. She still concern with constitutional symptoms from losing her hair to rashes to the coughing up blood to the shortness of breath. Explained to her that with the angiotensin-converting enzyme level being so significantly elevated we need to further assess the diagnosis of sarcoidosis in that started hopeful that we will find out from the cardiac PET scan. If the patient does have more concrete evidence of sarcoidosis we could treat her appropriately if we cannot get answers we may have to refer her to [place]. Meantime based on her symptoms will go ahead and repeat her D-dimer. Also will assess for other connective tissue conditions based on her constitutional symptoms. If the D-dimer is elevated she will require CTA to rule out pulmonary emboli. She has had blood clots in the past. When she called last week I did send her course of doxycycline. She has not used that as of yet. Although the hemoptysis seems to be a little better over the weekend. She did show a picture that hemoptysis primarily was bright red blood about a nickel amount mixed in with regular looking sputum. [facility] Medical History (Updated 03/18/23 @ 10:19 by Justen Nettles MD) Abnormal serum angiotensin-converting enzyme level Active asthma Anxiety and depression B12 deficiency Cardiac arrhythmia Dyspnea H/O brain tumor History of chemotherapy History of DVT (deep vein thrombosis) History of palpitations Hx of supraventricular tachycardia Narcolepsy Pacemaker Pernicious anemia Pleuritic chest pain POTS (postural orthostatic tachycardia syndrome) Pulmonary nodules Seasonal allergies Surgical History (Updated 01/21/23 @ 13:44 by Mine Roberts RN) H/O colonoscopy H/O esophagogastroduodenoscopy History of cardiac radiofrequency ablation (RFA) History of repair of rectocele Hx of appendectomy Hx of craniotomy Hx of hysterectomy Family History Mother Heart problem Maternal Grandfather Heart problem Paternal Grandmother Dementia Social History Household Members: None Are you a primary patient care technician instructor to a significant other at home: No Do you presently have visiting nurse or other home services: Yes ([employer] 4.5 week) Alcohol intake: current Alcohol intake frequency: a few times a month Patient Tobacco Use Status: Never used Tobacco Review of Systems Const Reports body aches, Reports fatigue and Denies night sweats Eyes Reports change in vision ENT Reports dysphagia and Denies epistaxis Card Denies chest pain, Reports dyspnea and Reports dyspnea on exertion Resp Reports hemoptysis, Reports dyspnea, Reports dyspnea on exertion and Denies whee zing GI Reports as per HPI, Reports constipation and Reports dysphagia Musc Reports no additional complaints Skin/Breast Reports alopecia, Reports pruritus and Denies rash Neuro Reports as per HPI Endo Reports fatigue Fabian/Lymph Denies easy bleeding, Denies easy bruising and Denies lymphadenopathy Aller/Immun Denies wheezing Physical Exam Vital Signs: Last Vital Signs Pulse 89 03/18/23 09:54 BP 126/70 03/18/23 09:54 Pulse Ox 100 03/18/23 09:54 BMI result Body Mass Index 28.1 Const General: comfortable HEENT Head: Yes normocephalic Eyes General: appearance normal, both eyes and all related structures Neck Neck: Yes supple Chest Chest palpation & inspection: normal inspection of the chest Resp Effort & Inspection: normal respiratory effort Auscultation: diminished lung sounds Cardio Rate: regular rate Rhythm: regular rhythm Heart sounds: S1 normal heart sound present and S2 normal heart sound present GI Palpation (GI): Soft to palpation Skin General skin exam: no rashes or lesions noted Extrem General: Yes no clubbing, cyanosis or edema Office Procedures Nebulizer Teach Details: Shasta Dash on the proper use and cleaning of the nebulizer machine and medication. Ekta states she understands and does not have any questions at this time. [id number] - Nebulizer Teach Assessment & Plan Assessment & Plan (1) Hemoptysis: Comment: resolved Code(s): R04.2 - Hemoptysis (2) Abnormal serum angiotensin-converting enzyme level: Code(s): R74.8 - Abnormal levels of other serum enzymes (3) Pleuritic chest pain: Code(s): R07.81 - Pleurodynia (4) Pacemaker: Comment: 2017 tachybradycardia syndrome Code(s): Z95.0 - Presence of cardiac pacemaker Plan Repeat bloodwork including Ddimer Doxycycline Awaiting cardiac PET start nebulizer therapy continue symbicort DAMARI as neeed F/U 3-5 weeks Orders: Orders Basic Metabolic Panel Today R04.2 - Hemoptysis, R07.81 - Pleurodynia Cyclic Citrullinated Peptide Today R04.2 - Hemoptysis, R07.81 - Pleurodynia D Dimer High Sensitivity Today R04.2 - Hemoptysis, R07.81 - Pleurodynia Lupus Anticoagulant Panel Today R04.2 - Hemoptysis, R07.81 - Pleurodynia Complete Blood Count Auto Diff Today R04.2 - Hemoptysis, R07.81 - Pleurodynia Erythrocyte Sedimentation Rate Today R04.2 - Hemoptysis, R07.81 - Pleurodynia Sickle Cell Scr Today R04.2 - Hemoptysis, R07.81 - Pleurodynia Scleroderma 70 Antibody Today R04.2 - Hemoptysis, R07.81 - Pleurodynia Sjogren's Antibodies Today R04.2 - Hemoptysis, R07.81 - Pleurodynia Angiotensin Converting Enzyme Today R07.81 - Pleurodynia, R74.8 - Abnormal levels of other serum enzymes AMB Nebulizer Teach Today R06.00 - Dyspnea, unspecified Medications: New levalbuterol HCl 1.25 mg (3 mL) inhalation BID 180 mL 0RF 30 days J44.9 - Chronic obstructive pulmonary disease, unspecified Coding Level of Care Code Est Pt Level 5 (05475) Diagnoses Hemoptysis R04.2 Abnormal serum angiotensin-converting enzyme level R74.8 Pleuritic chest pain R07.81 Pacemaker Z95.0 CPT Codes Nebulizer Teach - Nebulizer Teach: 51791 - Nebulizer Teach ([id number]) Time Spent (min) 60
[2023-03-18 09:54] VITALS: BP 126/70; PULSE 89; O2SAT 100; BMI 28.1
== END 2023-03-18 10:41 | disposition home or self-care (01) ==
PROVIDERS: PCP Internal Medicine; Visit Provider Hospitalist
DX: R04.2 Hemoptysis (principal); R74.8 Abnormal levels of other serum enzymes; R07.81 Pleurodynia; Z95.0 Presence of cardiac pacemaker
CPT/HCPCS: 99215

== ENCOUNTER 2023-03-19 11:10 | Outpatient (REF) | payer OTHER, SELFPAY ==
--- NOTE | ~2023-03-19 | CT_ITS ---
EXAMINATION: CT ANGIOGRAM OF THE CHEST WITH AND WITHOUT CONTRAST (CT PULMONARY ANGIOGRAM FOR PE) CLINICAL INFORMATION: Reason for Exam R07.81 - Pleurodynia COMPARISON: Previous chest CTA September 2022 TECHNIQUE: Prior to contrast administration, noncontrast localization images were obtained. Subsequently, multidetector volumetric imaging was performed from the thoracic inlet to below the diaphragms following the administration of 65 mL Omnipaque 350 intravenous contrast. No contrast reaction reported Sagittal, coronal, and MIP oblique sagittal reformatted images were obtained on the CT workstation, uploaded to PACS, and reviewed. This CT examination was performed using dose optimization techniques as appropriate, variously including the following: *Automated exposure control *Adjustment of mA and/or kV according to patient size (this includes techniques or standardized protocols for targeted exams where dose is matched to indication/reason for exam; i.e. extremities or head) *Use of iterative reconstruction technique Total exam dose-length product 112 mGy-cm FINDINGS: QUALITY OF STUDY/CONTRAST BOLUS: Satisfactory. PULMONARY ARTERIES: There is question of small subsegmental pulmonary emboli in the left lower lobe and lingula for example reconstructed image 62 series 11 in the lingula and axial image 2 75m and 279 series 13 in the left lower lobe. Some of these areas appear against the wall of the vessel and may not be acute. No evidence of large or central pulmonary embolism. THORACIC AORTA: No aneurysm. LUNG: Stable 3 mm left upper lobe nodule axial series 13. 2 mm peripheral or subpleural right middle lobe nodule adjacent to the minor fissure axial image 247 series 13. In retrospect this is stable as well. The lungs are otherwise clear. PLEURA: No pleural effusion or pneumothorax. MEDIASTINUM: Normal heart size. No pericardial effusion. No hilar or mediastinal lymphadenopathy. No evidence of septal bowing or right heart strain. Left subclavian dual chamber pacemaker in satisfactory position. CORONARY ARTERY CALCIFICATION: None visualized on this study. CHEST WALL/AXILLA: No axillary or internal mammary lymphadenopathy. OSSEOUS STRUCTURES: No acute or suspicious osseous abnormality. UPPER ABDOMEN: Unremarkable. No reflux of contrast into the hepatic veins to suggest elevated right heart pressures. CT/CT angio chest PE protocol IMPRESSION: Question small subsegmental left pulmonary emboli in the lingula and left lower lobe. Some of these areas appear against the wall of the vessel and may not be acute. No large or central pulmonary embolism. Stable small pulmonary nodules, largest measuring 3 mm in the left upper lobe. No chest CT follow-up of pulmonary nodules recommended. VTE: Question positive Findings will be communicated by the [employer] work flow consumer recruiter.
[2023-03-19] MEDS: iohexoL 350 MG/ML 100 ML INFUS..BTL 65 ML IV (13:53)
== END 2023-03-19 11:11 | disposition home or self-care (01) ==
LOC: HO.CT 11:10
PROVIDERS: PCP Internal Medicine; Visit Provider Hospitalist
DX: R07.81 Pleurodynia (principal); R04.2 Hemoptysis
CPT/HCPCS: 71275; Q9967

== ENCOUNTER 2023-03-19 12:38 | Emergency (ER) | payer OTHER, SELFPAY ==
[2023-03-19 12:43] VITALS: BP 129/80; PULSE 98; RESP 20; TEMP 36.4; O2SAT 100; BMI 28.3
--- NOTE | 2023-03-19 12:53 | ED_ITS ---
HPI - Allergic Reaction General Chief complaint: Allergic Reaction Stated complaint: allergic reaction Time Seen by Provider: 03/19/23 12:51 Source: patient Mode of arrival: ambulatory Limitations: no limitations History of Present Illness HPI narrative: This is a 32-year-old female presenting to the emergency department with complaints of feeling like her throat is closing, patient is coming from an outpatient CT scan where she received IV contrast, patient reports that since she got the contrast she feels like there is something in her throat and she is having difficulty breathing. She reports that this is never happened to her before. Denies chest pain, shortness of breath, nausea, vomiting, abdominal pain, diarrhea. Related Data Home Medications Medication Instructions Recorded Confirmed cyanocobalamin (vitamin B-12) 1,000 mcg IM Q4W 10/31/20 10/03/22 1,000 mcg/mL injection solution metoprolol tartrate 50 mg tablet 50 mg PO BID 10/31/20 01/21/23 nitroglycerin 0.4 mg sublingual 0.4 mg sublingual .Q5MINS chest 10/31/20 01/21/23 tablet pain albuterol sulfate 90 mcg/actuation 2 puff inhalation Q6H PRN wheezing 11/17/21 10/03/22 aerosol inhaler cholecalciferol (vitamin D3) 25 1 cap PO DAILY 11/17/21 10/03/22 mcg (1,000 unit) capsule verapamil 240 mg tablet,extended 1 tab PO BID 11/17/21 01/21/23 release isosorbide mononitrate 30 mg 30 mg PO DAILY PRN Chest Pain 04/30/22 01/21/23 tablet,extended release 24 hr budesonide-formoterol HFA 160 2 puff inhalation BID 01/04/23 01/21/23 mcg-4.5 mcg/actuation aerosol inhaler (Symbicort) dextroamphetamine-amphetamine ER 1 cap PO QAM 01/04/23 01/21/23 20 mg 24hr capsule,extend release (Adderall XR) lorazepam 0.5 mg tablet 0.5 mg PO BID PRN anxiety 01/04/23 01/21/23 Previous Rx's Medication Instructions Recorded ondansetron 4 mg disintegrating 4 mg PO Q8H PRN nausea and 10/02/21 tablet vomiting #20 tabs polyethylene glycol 3350 17 17 g PO BID #510 grams 03/08/22 gram/dose oral powder (Miralax) esomeprazole magnesium 40 mg 40 mg PO DAILY #60 caps 09/03/22 capsule,delayed release peg-electrolyte solution 420 gram 240 ml PO Q10M #4,000 mL 10/31/22 oral solution doxycycline hyclate 100 mg capsule 100 mg PO BID 10 days #20 caps 03/15/23 levalbuterol HCl 1.25 mg/3 mL 1.25 mg (3 mL) inhalation BID 30 03/18/23 solution for nebulization days #180 mL diphenhydramine HCl 25 mg capsule 25 mg PO TID PRN allergic reaction 03/19/23 (Benadryl) #20 caps epinephrine 0.3 mg/0.3 mL 0.3 mg (0.3 mL) IM Q4H PRN 03/19/23 injection, auto-injector (EpiPen anaphylaxis #2 ea 2-Chester) prednisone 20 mg tablet 40 mg PO DAILY 5 days #10 tabs 03/19/23 Allergies Allergy/AdvReac Type Severity Reaction Status Date / Time cefoxitin [CEFOXITIN] Allergy Severe Anaphylaxis Verified 03/18/23 09:57 sertraline Allergy Severe itching Verified 03/18/23 09:57 vancomycin [VANCOMYCIN] Allergy Severe Anaphylaxis Verified 03/18/23 09:57 Review of Systems Review of Systems: Constitutional : No Weight loss, No Fever, No Chills, No Fatigue, No Malaise ENT/Mouth : No sore throat, No Rhinorrhea Eyes: No Eye Pain, No Swelling, No Redness Cardiovascular : No Chest Pain, No SOB, No Dyspnea on Exertion, No Orthopnea, No Edema, No Palpitations Respiratory : No Cough, No Sputum, No Wheezing Gastrointestinal : No Nausea, No Vomiting, No Diarrhea, No Constipation, No abdominal Pain, No Hematochezia, No Melena Genitourinary : No Dysuria, No Urinary Frequency, No Hematuria, Musculoskeletal : No joint pain, No Myalgias, No Joint Swelling Skin : No Skin Lesions, No rash Neuro : No Weakness, No Numbness, No Dizziness, No Headache Psych : No Anxiety/Panic, No Depression All other systems reviewed and are negative Yes all other systems are reviewed and are negative PMFSH Past Medical History Attestation statement: The following information was validated with the patient. Source: old records reviewed and nursing notes reviewed Medical History Abnormal serum angiotensin-converting enzyme level Active asthma Anxiety and depression B12 deficiency Cardiac arrhythmia Dyspnea H/O brain tumor History of chemotherapy History of DVT (deep vein thrombosis) History of palpitations Hx of supraventricular tachycardia Narcolepsy Pacemaker Pernicious anemia Pleuritic chest pain POTS (postural orthostatic tachycardia syndrome) Pulmonary nodules Seasonal allergies Surgical History H/O colonoscopy H/O esophagogastroduodenoscopy History of cardiac radiofrequency ablation (RFA) History of repair of rectocele Hx of appendectomy Hx of craniotomy Hx of hysterectomy Family History Family History Mother Heart problem Maternal Grandfather Heart problem Paternal Grandmother Dementia Social History Social History Household Members: None Are you a primary health care manager to a significant other at home: No Do you presently have visiting nurse or other home services: Yes ([employer]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 Oriented X3.? No acute distress.? Patient appears anxious. Head: Normocephalic, atraumatic, no step-offs or deformities Eyes: Pupils equal, round and reactive to light.? ENT: Pharynx normal.? No edema to hard or soft palate, tongue, lips, uvula, tonsillar pillars. Patient speaking in full sentences controlling secretions well. Neck: Normal inspection.? Neck supple.? CVS: Normal heart rate and rhythm.? Pulses normal.? Respiratory: No respiratory distress.? Breath sounds normal.? Abdomen: Soft and nontender.? Skin: Skin warm and dry.? Normal skin color.? Normal skin turgor.? Extremities: No lower extremity edema.? No calf ttp. 5/5 strength to bilateral upper and lower extremities Neuro: Oriented X 3.? No motor deficit.? No sensory deficit. CN 2-12 intact Course Reevaluation(s) Reevaluation #1: You patient resting comfortably, saturating well on room air. Will continue to monitor. Time: 14:20 Reevaluation #2: Patient reports symptom improvement after medications, she states she is anxious and would like to get out here does not want to be observed any longer, understands risks. Advised her to follow up with an allergy doctor. Will discharge home on prednisone, Benadryl. Educated patient on diagnosis and treatment plan, answered all question, patient verbalizes understanding. At this time patient will be discharged home, advised to return with new or worsening symptoms. Educated on worrisome signs and symptoms and when to return. At this time I feel comfortable discharge home. Time: 14:43 Medications Administered Discontinued Medications Generic Name Dose Route Start Last Admin Trade Name Nicoq PRN Reason Stop Dose Admin Diphenhydramine HCl 50 mg 03/19/23 12:51 03/19/23 13:01 Diphenhydramine Hcl 50 Mg/Ml Vial IVPUSH 03/19/23 12:52 50 mg ONCE ONE Administration Methylprednisolone Sodium Succinate 125 mg 03/19/23 12:51 03/19/23 13:02 Methylprednisolone Sod Succ 125 Mg/2 Ml Vial IVPUSH 03/19/23 12:52 125 mg ONCE ONE Administration Medical Decision Making Medical Decision Making [facility] Narrative: 1255 32-year-old female presents with suspected allergic reaction took IV contrast dye PE - benign Likely allergic reaction. No signs of threat to airway, anaphylaxis. Other differentials include anxiety. Plan Benadryl, Solu-Medrol. Will monitor no need for epinephrine at this time Differential Diagnosis Differential Diagnoses: The differential diagnosis associated with the presentation includes Likely allergic reaction. No signs of threat to airway, anaphylaxis. Other differentials include anxiety. Admission/Observation Consideration of admission/observation: Escalation of care including admission/observation considered Unlikely Core Measures AMI core measures followed: Yes Measure exclusions: not indicated Critical Care Time Critical Care Time Critical Care Time: No Discharge Plan Discharge Clinical Impression: Allergic reaction, Anxiety Patient Disposition: Still a Patient Instructions: Epinephrine (By injection), Allergy Testing (ED) Additional Instructions: Take your medications as prescribed. If you were prescribed antibiotics today, it is important that you take your medication to their entirety, do not skip any doses, do not finish them early. Follow-up with your primary care provider this week. Return to the emergency department with new or worsening symptoms. Such as fevers, chills, chest pain, shortness of breath, nausea, vomiting, dizziness, headache, vision changes, lethargy In case of emergency call 911 EpiPen has been sent to her pharmacy, please use this is instructed, if you use an EpiPen, you should seek medical attention immediately after, call 911. Only use an EpiPen to be feel like her throat is closing, you cannot control your own secretions her having any other signs and symptoms of anaphylaxis. Prescriptions: New prednisone 20 mg tablet 40 mg PO DAILY 5 Days Qty: 10 0RF diphenhydramine HCl [Benadryl] 25 mg capsule 25 mg PO TID PRN (Reason: allergic reaction) Qty: 20 0RF epinephrine [EpiPen 2-Chester] 0.3 mg/0.3 mL auto-injector 0.3 mg IM Q4H PRN (Reason: anaphylaxis) Qty: 2 0RF No Action polyethylene glycol 3350 [Miralax] 17 gram/dose powder 17 g PO BID Qty: 510 0RF peg-electrolyte soln 420 gram recon soln 240 ml PO Q10M Qty: 4000 0RF Rx Instructions: until fecal effluent is clear; doxycycline hyclate 100 mg capsule 100 mg PO BID 10 Days Qty: 20 0RF verapamil 240 mg tablet extended release 1 tab PO BID albuterol sulfate 90 mcg/actuation HFA aerosol inhaler 2 puff inhalation Q6H PRN (Reason: wheezing) cholecalciferol (vitamin D3) 25 mcg (1,000 unit) capsule 1 cap PO DAILY cyanocobalamin (vitamin B-12) 1,000 mcg/mL solution 1,000 mcg IM Q4W nitroglycerin 0.4 mg tablet, sublingual 0.4 mg sublingual .Q5MINS metoprolol tartrate 50 mg tablet 50 mg PO BID ondansetron 4 mg tablet,disintegrating 4 mg PO Q8H PRN (Reason: nausea and vomiting) Qty: 20 0RF isosorbide mononitrate 30 mg tablet extended release 24 hr 30 mg PO DAILY PRN (Reason: Chest Pain) esomeprazole magnesium 40 mg capsule,delayed release(DR/EC) 40 mg PO DAILY Qty: 60 3RF dextroamphetamine-amphetamine [Adderall XR] 20 mg capsule,extended release 24hr 1 cap PO QAM lorazepam 0.5 mg tablet 0.5 mg PO BID PRN (Reason: anxiety) budesonide-formoterol [Symbicort] 160-4.5 mcg/actuation HFA aerosol inhaler 2 puff inhalation BID levalbuterol HCl 1.25 mg/3 mL solution for nebulization 1.25 mg inhalation BID 30 Days Qty: 180 0RF Referrals: [facility] [Outside] - 2 days Stand Alone Forms: Work/School Release
[2023-03-19] MEDS: diphenhydrAMINE HCL 50 MG/ML VIAL IVPUSH (13:01)
[2023-03-19] MEDS: methylPREDNISolone Sod Succ 125 MG/2 ML VIAL IVPUSH (13:02)
--- NOTE | 2023-03-19 14:00 | PC.NURSE ---
pt a+o x3, vss. pt brought from CT scan with chief c/o throat tightness after receiving iv contrast. she reports that she has had iv contrast in the past but this has never happened to her before. pt denies chest pain/difficulty breathing/throat swelling or itching. LSCTA, denies nausea, no vomiting. pt satting 100% r/a, normal sinus on bedside monitor. iv Benadryl and Solu-medrol given as ordered. pt resting quietly, no apparent distress. will continue to observe.
[2023-03-19 14:56] VITALS: BP 121/73; RESP 18
--- NOTE | 2023-03-19 15:11 | PC.NURSE ---
Patient medically cleared. Discharge reviewed with patient. No complaints or concerns.
== END 2023-03-19 15:14 | disposition still patient (30) ==
PROVIDERS: Emergency Provider Emergency Medicine; PCP Internal Medicine
DX: F41.9 Anxiety disorder, unspecified (principal); T78.40XA Allergy, unspecified, initial encounter; X58.XXXA Exposure to other specified factors, initial encounter; Z79.899 Other long term (current) drug therapy; Z95.0 Presence of cardiac pacemaker; Z86.718 Personal history of other venous thrombosis and embolism
CPT/HCPCS: 96374; 96375; 99283; 99284; J1200; J2930

== ENCOUNTER → 2023-03-28 14:17 | Outpatient (REF) | payer OTHER, SELFPAY ==
--- NOTE | ~2023-03-28 | NM_ITS ---
PULMONARY PERFUSION ONLY STUDY: CLINICAL INDICATION: Other pulmonary embolism without acute cor pulmonale. History of DVT. PROCEDURE: Following the intravenous administration of 4.0 millicuries technetium 99m MAA, images of the chest were obtained in multiple projections using a gamma scintiphotographic camera. COMPARISON: Chest radiograph done on 03/28/2023. Chest x-ray: Bilateral clear lung sweeney. PERFUSION IMAGES: No segmental perfusion defects or other perfusion abnormalities are noted. NM/NM pul perfusion IMPRESSION: Based on perfusion only modified PIOPED 2 criteria, pulmonary thromboembolism is absent.
--- NOTE | ~2023-03-28 | XR_ITS ---
EXAMINATION: XR CHEST CLINICAL INFORMATION: Other pulmonary embolism without acute cor pulmonale COMPARISON: 09/27/2022; chest CT 03/19/2023 TECHNIQUE: 2 views of the chest were obtained. FINDINGS: The lungs are well expanded and clear. There is no pleural disease. The heart and mediastinum are normal in size and contour. There is no peripheral vascular congestion. There is a left chest pacemaker with transvenous leads to the right atrium and ventricle. XR/XR chest 2V IMPRESSION: No evidence of active disease in the chest.
== END ==
LOC: HO.NUCMED 14:17
PROVIDERS: PCP Internal Medicine; Visit Provider Hospitalist
DX: I26.99 Other pulmonary embolism without acute cor pulmonale (principal)
CPT/HCPCS: 71046; 78580; A9540

== ENCOUNTER 2023-04-09 15:36 | Outpatient (AMB) | payer OTHER, SELFPAY ==
--- NOTE | 2023-04-09 15:40 | A.OFFVIS_ITS ---
Intake Vital Signs 04/09/23 15:41 Height 5 ft 1 in Weight 149 lb 14.629 oz BMI 28.3 Pulse 76 Pulse Source Pulse Oximeter Pulse Oximetry (%) 99 Oxygen Delivery Method Room Air Intake Visit Reasons: Sarcoidosis Outside Installer Apprentice Required: No Allergies cefoxitin [CEFOXITIN] Allergy (Severe, Verified 04/09/23 15:42) Anaphylaxis sertraline Allergy (Severe, Verified 04/09/23 15:42) itching vancomycin [VANCOMYCIN] Allergy (Severe, Verified 04/09/23 15:42) Anaphylaxis Iodinated Contrast Media Allergy (Intermediate, Verified 04/09/23 15:42) Wheezing HPI HPI Comments History of Present Illness Details The patient is a 32-year-old woman with a known history of a brain cancer status post chemotherapy many years ago. Ultimately also had a DVT requiring anticoagulation. She has been having increasing dyspnea on exertion. Moderate severity progressive in nature. In addition to that she has noticed some blood in the sputum. At times it is mixed in with mucus. Sometimes it is bright red. She did show me some pictures. usually is minimal in amount may be a dime size. This episode occur about once a week per the patient. The last time she was evaluated was in the ER because of shortness of breath, chest pains and hemoptysis. Her D-dimer was indeed elevated. The patient did have a CTA which I personally reviewed with her. No evidence of any parenchymal or airspace disease. No evidence of any thromboembolic disease. The patient was placed on Symbicort with partial improvement of the symptoms. The patient also has had issues with dysphagia. She did undergo will go a recent endoscopy demonstrating some slight strictures. She did have dilation. It appears that she is doing a little better from this condition. At this point in view of her ongoing hemoptysis will try to plan a bronchoscopy to better assess the airways and see if there is any evidence of any active bleeding from any particular area. Also can assess her posterior pharynx and nasal passages to make sure she is not bleeding from there as well. Will request blood work at this time looking for connective tissue disorder in order to see if we can find an explanation as far as the [place] diagnosis for her ongoing issues. The patient is here for a pulmonary follow up visit. She is s/p bronchoscopy. No evidence of hemoptysis or any source. Biopsies demonstrating some mild inflammation. Bloodwork with significantly elevated ROJAS level suggesting sarcoidosis. CT chest with +pulmonary nodules. Having visual changes and also has a history of heart block, s/p pacemaker. I looked into the evaluation at [facility] [place], but, did not see any evaluation for infiltrative heart disease. She cont inues to use her inhalers with partial resolution of her respiratory symptoms. 03/18/2023 the patient is here for a sick visit. Apparently she started having more hemoptysis and also pleuritic chest pain. With her when she would take a deep breath specially between the a scapula on back and also in the substernal area. Urnl-od-cpeticzx severity. Also complaining of shortness of breath. She has noted that she has been more tachycardic. She still waiting for her cardiac PET. Had to be rescheduled based on the fact that the [facility] PET scan broke down. She was prescribed prednisone. Sleep but she only took for 2 days did not like the way it made her feel and she stop that therefore is hard to know if actual was effective. She still concern with constitutional symptoms from losing her hair to rashes to the coughing up blood to the shortness of breath. Explained to her that with the angiotensin-converting enzyme level being so significantly elevated we need to further assess the diagnosis of sarcoidosis in that started hopeful that we will find out from the cardiac PET scan. If the patient does have more concrete evidence of sarcoidosis we could treat her appropriately if we cannot get answers we may have to refer her to [place]. Meantime based on her symptoms will go ahead and repeat her D-dimer. Also will assess for other connective tissue conditions based on her constitutional symptoms. If the D-dimer is elevated she will require CTA to rule out pulmonary emboli. She has had blood clots in the past. When she called last week I did send her course of doxycycline. She has not used that as of yet. Although the hemoptysis seems to be a little better over the weekend. She did show a picture that hemoptysis primarily was bright red blood about a nickel amount mixed in with regular looking sputum. 04/09/2023 the patient is here for a pulmonary follow-up visit. Much as happened since we last spoke. The patient was having pleuritic discomfort. D-dimer was elevated. Therefore she did undergo CTA. It demonstrated a question of a pulmonary emboli. Therefore the patient was started on Eliquis. The patient has had deep venous thrombosis in the past. The patient underwent a V/Q scan to further address the question of pulmonary embolism. It demonstrated no evidence of any perfusion defects therefore negative for pulmonary emboli. At that point the patient is having some difficulties tolerating the Eliquis and she decided to stop it. The patient understands that having the negative V/Q scan does not rule out blood clots since she was alr tao on therapy. The patient also had an elevated D-dimer. She is willing to repeat a D-dimer. If D-dimer continues to be elevated I did recommend she go back on Eliquis at least completed 3 months course. The patient is awaiting her cardiac PET scan. It was finally approved and she will have it done this week. Will be assessing for any evidence of any cardiac sarcoid. In addition to that she is going to have her eye exam to rule out uveitis in the coming days. In addition to that the patient does state that she develops a rash at times. Right now the rashes improved. In addition to these can rash she is noticed nodular densities on her labia of her genitals. She is wondering if this could be potentially sarcoidosis. Patient will need a biopsy to assess for granulomas. At this point all we have is that her Rojas level continues to be critically elevated which is a marker of active sarcoidosis. If indeed all her symptoms are consistent with sarcoidosis then we can start her on therapy. [facility] Medical History (Updated 04/09/23 @ 23:42 by Justen Nettles MD) Pulmonary emboli Pleuritic chest pain Abnormal serum angiotensin-converting enzyme level Cardiac arrhythmia Pulmonary nodules Dyspnea History of DVT (deep vein thrombosis) History of chemotherapy History of palpitations Hx of supraventricular tachycardia Narcolepsy Seasonal allergies Anxiety and depression Pacemaker Pernicious anemia B12 deficiency Active asthma POTS (postural orthostatic tachycardia syndrome) H/O brain tumor Surgical History History of repair of rectocele Hx of hysterectomy History of cardiac radiofrequency ablation (RFA) Hx of craniotomy H/O colonoscopy H/O esophagogastroduodenoscopy Hx of appendectomy Family History Mother Heart problem Maternal Grandfather Heart problem Paternal Grandmother Dementia Social History Household Members: None Are you a primary farm or ranch animal caretaker to a significant other at home: No Do you presently have visiting nurse or other home services: Yes (PHOTO OPTICS TECHNICIAN 4.5 week) Alcohol intake: current Alcohol intake frequency: a few times a month Patient Tobacco Use Status: Never used Tobacco Review of Systems Const Reports body aches, Reports fatigue and Denies night sweats Eyes Reports change in vision ENT Reports dysphagia and Denies epistaxis Card Denies chest pain, Reports dyspnea and Reports dyspnea on exertion Resp Denies hemoptysis, Reports dyspnea, Reports dyspnea on exertion and Denies wh eezing GI Reports as per HPI, Reports constipation and Reports dysphagia Reports as per HPI and Reports genital lesions Musc Reports no additional complaints Skin/Breast Reports alopecia, Reports pruritus and Denies rash Neuro Reports as per HPI Endo Reports fatigue Fabian/Lymph Denies easy bleeding, Denies easy bruising and Denies lymphadenopathy Aller/Immun Denies wheezing Physical Exam Vital Signs: Last Vital Signs Pulse 76 04/09/23 15:41 Pulse Ox 99 04/09/23 15:41 Oxygen Delivery Method Room Air 04/09/23 15:41 BMI result Body Mass Index 28.3 Const General: comfortable HEENT Head: Yes normocephalic Eyes General: appearance normal, both eyes and all related structures Neck Neck: Yes supple Chest Chest palpation & inspection: normal inspection of the chest Resp Effort & Inspection: normal respiratory effort Auscultation: diminished lung sounds Cardio Rate: regular rate Rhythm: regular rhythm Heart sounds: S1 normal heart sound present and S2 normal heart sound present GI Palpation (GI): Soft to palpation External Female Exam: lesion (The patient brought a picture-vasiculopapular lesion with drainage) Skin General skin exam: other (papules) Extrem General: Yes no clubbing, cyanosis or edema Assessment & Plan Assessment & Plan (1) Pulmonary emboli: Code(s): I26.99 - Other pulmonary embolism without acute cor pulmonale (2) Sarcoidosis: Comment: high suspicion, but not a definitive diagnosis Code(s): D86.9 - Sarcoidosis, unspecified (3) Vaginal lesion: Code(s): N89.8 - Other specified noninflammatory disorders of vagina Plan Pt stooped Lissettejanelis on her own, not based on my recommendations. Now that she is off and her VQ was negative we will request a repeat ddimer, if elevated would recommend she complates her 3 months therapy with Eliquis Eye exam Awaiting cardiac PET Dermatology referral for ?biopsy of genital lesion or extremity rash to assess for extrapulmonary sarcoid F/U 6-8 weeks Orders: Orders D Dimer High Sensitivity Today I26.99 - Other pulmonary embolism without acute cor pulmonale Referrals Dermatology Referral D86.9 - Sarcoidosis, unspecified, N89.8 - Other specified noninflammatory disorders of vagina Coding Level of Care Code Est Pt Level 5 (05513) Diagnoses Pulmonary emboli I26.99 Sarcoidosis D86.9 Vaginal lesion N89.8 Time Spent (min) 60
[2023-04-09 15:41] VITALS: PULSE 76; O2SAT 99; BMI 28.3
== END 2023-04-09 16:07 | disposition home or self-care (01) ==
PROVIDERS: PCP Internal Medicine; Visit Provider Hospitalist
DX: D86.9 Sarcoidosis, unspecified (principal); I26.99 Other pulmonary embolism without acute cor pulmonale; N89.8 Other specified noninflammatory disorders of vagina
CPT/HCPCS: 99215

== ENCOUNTER → 2023-04-09 15:36 | Outpatient (BNVA) | payer OTHER, SELFPAY | PROVIDERS: PCP Internal Medicine; Visit Provider Hospitalist | DX: D86.9 Sarcoidosis, unspecified (principal); I26.99 Other pulmonary embolism without acute cor pulmonale; N89.8 Other specified noninflammatory disorders of vagina | CPT/HCPCS: 99212 ==

== ENCOUNTER 2023-07-04 14:58 | Outpatient (AMB) | payer OTHER, SELFPAY ==
[2023-07-04 15:05] VITALS: PULSE 72; O2SAT 99; BMI 28.3
--- NOTE | 2023-07-04 15:05 | MHC.OFFVIS ---
Intake Vital Signs 07/04/23 15:05 Height 5 ft 1 in Weight 150 lb BMI 28.3 Pulse 72 Pulse Source Pulse Oximeter Pulse Oximetry (%) 99 Oxygen Delivery Method Room Air Intake Visit Reasons: sarcoidosis Lawn Mower Repairer Required: No Allergies cefoxitin [CEFOXITIN] Allergy (Severe, Verified 07/04/23 15:06) Anaphylaxis sertraline Allergy (Severe, Verified 07/04/23 15:06) itching vancomycin [VANCOMYCIN] Allergy (Severe, Verified 07/04/23 15:06) Anaphylaxis Iodinated Contrast Media Allergy (Intermediate, Verified 07/04/23 15:06) Wheezing HPI HPI Comments History of Present Illness Details The patient is a 32-year-old woman with a known history of a brain cancer status post chemotherapy many years ago. Ultimately also had a DVT requiring anticoagulation. She has been having increasing dyspnea on exertion. Moderate severity progressive in nature. In addition to that she has noticed some blood in the sputum. At times it is mixed in with mucus. Sometimes it is bright red. She did show me some pictures. usually is minimal in amount may be a dime size. This episode occur about once a week per the patient. The last time she was evaluated was in the ER because of shortness of breath, chest pains and hemoptysis. Her D-dimer was indeed elevated. The patient did have a CTA which I personally reviewed with her. No evidence of any parenchymal or airspace disease. No evidence of any thromboembolic disease. The patient was placed on Symbicort with partial improvement of the symptoms. The patient also has had issues with dysphagia. She did undergo will go a recent endoscopy demonstrating some slight strictures. She did have dilation. It appears that she is doing a little better from this condition. At this point in view of her ongoing hemoptysis will try to plan a bronchoscopy to better assess the airways and see if there is any evidence of any active bleeding from any particular area. Also can assess her posterior pharynx and nasal passages to make sure she is not bleeding from there as well. Will request blood work at this time looking for connective tissue disorder in order to see if we can find an explanation as far as the [place] diagnosis for her ongoing issues. 03/18/2023 the patient is here for a sick visit. Apparently she started having more hemoptysis and also pleuritic chest pain. With her when she would take a deep breath specially between the a scapula on back and also in the substernal area. Kxtl-sh-jfqjccak severity. Also complaining of shortness of breath. She has noted that she has been more tachycardic. She still waiting for her cardiac PET. Had to be rescheduled based on the fact that the [facility] PET scan broke down. She was prescribed prednisone. Sleep but she only took for 2 days did not like the way it made her feel and she stop that therefore is hard to know if actual was effective. She still concern with constitutional symptoms from losing her hair to rashes to the coughing up blood to the shortness of breath. Explained to her that with the angiotensin-converting enzyme level being so significantly elevated we need to further assess the diagnosis of sarcoidosis in that started hopeful that we will find out from the cardiac PET scan. If the patient does have more concrete evidence of sarcoidosis we could treat her appropriately if we cannot get answers we may have to refer her to [place]. Meantime based on her symptoms will go ahead and repeat her D-dimer. Also will assess for other connective tissue conditions based on her constitutional symptoms. If the D-dimer is elevated she will require CTA to rule out pulmonary emboli. She has had blood clots in the past. When she called last week I did send her course of doxycycline. She has not used that as of yet. Although the hemoptysis seems to be a little better over the weekend. She did show a picture that hemoptysis primarily was bright red blood about a nickel amount mixed in with regular looking sputum. 04/09/2023 the patient is here for a pulmonary follow-up visit. Much as happened since we last spoke. The patient was having pleuritic discomfort. D-dimer was elevated. Therefore she did undergo CTA. It demonstrated a question of a pulmonary emboli. Therefore the patient was started on Eliquis. The patient has had deep venous thrombosis in the past. The patient underwent a V/Q scan to further address the question of pulmonary embolism. It demonstrated no evidence of any perfusion defects therefore negative for pulmonary emboli. At that point the patient is having some difficulties tolerating the Eliquis and she decided to stop it. The patient understands that having the negative V/Q scan does not rule out blood clots since she was already on therapy. The patient also had an elevated D-dimer. She is willing to repeat a D-dimer. If D-dimer continues to be elevated I did recommend she go back on Eliquis at least completed 3 months course. The patient is awaiting her cardiac PET scan. It was finally approved and she will have it done this week. Will be assessing for any evidence of any cardiac sarcoid. In addition to that she is going to have her eye exam to rule out uveitis in the coming days. In addition to that the patient does state that she develops a rash at times. Right now the rashes improved. In addition to these can rash she is noticed nodular densities on her labia of her genitals. She is wondering if this could be potentially sarcoidosis. Patient will need a biopsy to assess for granulomas. At this point all we have is that her Rojas level continues to be critically elevated which is a marker of active sarcoidosis. If indeed all her symptoms are consistent with sarcoidosis then we can start her on therapy. 07/04/2023 the patient is here for a pulmonary follow-up visit. Overall she is doing about the same. Still complaining of shortness of breath and chest pressure sensation pressure that radiates to the back. The Symbicort does help but is not completely helpful. We did review her allergy testing in her IgE in her IgE is significantly elevated above 300 she does have significant allergies to both environmental allergies in foods. At this point she is maximized on respiratory therapy then I do believe that she will be a great candidate for Xolair. Hopefully by using biologics we can improve her respiratory complaints. The patient did follow-up with the disposal man and they did not see any sarcoid in the eyes although she does have the beginnings of cataracts. In addition to that the patient was seen by Dermatology but they did not see any lesions to be concerned about from dermatological standpoint. There which is concerned about acne. Therefore, this point we have exhausted all the different potential sarcoid related conditions and nothing really to explain the significantly elevated Rojas level. Explained to her that is likely more of a genetic abnormality where she has an elevated Rojas level without actually having sarcoidosis. Therefore, but these sarcoidosis question aside. Will try the Xolair therapies to treat her significant asthma and significant allergies and hope to improve her all respiratory capacity and quality of life. If the patient does not see any significant improvement with the Xolair then will refer her to [place] for further tertiary care. [facility] Medical History (Updated 07/04/23 @ 22:18 by Justen Nettles MD) Environmental allergies Asthma Pulmonary emboli Pleuritic chest pain Abnormal serum angiotensin-converting enzyme level Cardiac arrhythmia Pulmonary nodules Dyspnea History of DVT (deep vein thrombosis) History of chemotherapy History of palpitations Hx of supraventricular tachycardia Narcolepsy Seasonal allergies Anxiety and depression Pacemaker Pernicious anemia B12 deficiency Active asthma POTS (postural orthostatic tachycardia syndrome) H/O brain tumor Surgical History History of repair of rectocele Hx of hysterectomy History of cardiac radiofrequency ablation (RFA) Hx of craniotomy H/O colonoscopy H/O esophagogastroduodenoscopy Hx of appendectomy Family History Mother Heart problem Maternal Grandfather Heart problem Paternal Grandmother Dementia Social History Household Members: None Are you a primary nurse behavioral health care to a significant other at home: No Do you presently have visiting nurse or other home services: Yes ([employer] ICE [employer]AM 4.5 week) Alcohol intake: current Alcohol intake frequency: a few times a month Patient Tobacco Use Status: Never used Tobacco Review of Systems Const Reports body aches, Reports fatigue and Denies night sweats Eyes Reports change in vision ENT Reports dysphagia and Denies epistaxis Card Denies chest pain, Reports dyspnea and Reports dyspnea on exertion Resp Reports cough, Denies hemoptysis, Reports dyspnea, Reports dyspnea on exertion and Reports wheezing GI Reports as per HPI, Reports constipation and Reports dysphagia Reports as per HPI and Reports genital lesions Musc Reports no additional complaints Skin/Breast Reports alopecia, Reports pruritus and Denies rash Neuro Reports as per HPI Endo Reports fatigue Fabian/Lymph Denies easy bleeding, Denies easy bruising and Denies lymphadenopathy Aller/Immun Reports wheezing Physical Exam Vital Signs: Last Vital Signs Pulse 72 07/04/23 15:05 Pulse Ox 99 07/04/23 15:05 Oxygen Delivery Method Room Air 07/04/23 15:05 BMI result Body Mass Index 28.3 Const General: comfortable HEENT Head: Yes normocephalic Eyes General: appearance normal, both eyes and all related structures Neck Neck: Yes supple Chest Chest palpation & inspection: normal inspection of the chest Resp Effort & Inspection: normal respiratory effort Auscultation: diminished lung sounds Cardio Rate: regular rate Rhythm: regular rhythm Heart sounds: S1 normal heart sound present and S2 normal heart sound present GI Palpation (GI): Soft to palpation External Female Exam: lesion (The patient brought a picture-vasiculopapular lesion with drainage) Skin General skin exam: other (papules) Extrem General: Yes no clubbing, cyanosis or edema Assessment & Plan Assessment & Plan (1) Asthma: Code(s): J45.909 - Unspecified asthma, uncomplicated Qualifiers: Asthma severity: moderate Asthma persistence: persistent Asthma complication type: uncomplicated Qualified Code(s): J45.40 - Moderate persistent asthma, uncomplicated (2) Environmental allergies: Code(s): Z91.09 - Other allergy status, other than to drugs and biological substances (3) Pulmonary nodules: Code(s): R91.8 - Other nonspecific abnormal finding of lung field (4) Abnormal serum angiotensin-converting enzyme level: Comment: No evidence of sarcoidosis Code(s): R74.8 - Abnormal levels of other serum enzymes (5) Pulmonary emboli: Comment: quationable base on CTA, but VQ negative Code(s): I26.99 - Other pulmonary embolism without acute cor pulmonale Qualifiers: Acute cor pulmonale presence: unspecified Chronicity: chronic Pulmonary embolism type: other Qualified Code(s): I27.82 - Chronic pulmonary embolism Plan continue Symicort start Xolair 225mg [id number] DAMARI as needed continue allergy therapies F/U 3 months Coding Level of Care Code Est Pt Level 4 (05250) Diagnoses Moderate persistent asthma without complication J45.40 Asthma severity: moderate Asthma persistence: persistent Asthma complication type: uncomplicated Environmental allergies Z91.09 Pulmonary nodules R91.8 Abnormal serum angiotensin-converting enzyme level R74.8 Other chronic pulmonary embolism, unspecified whether acute cor pulmonale present I27.82 Acute cor pulmonale presence: unspecified Chronicity: chronic Pulmonary embolism type: other Time Spent (min) 17
== END 2023-07-04 15:26 | disposition home or self-care (01) ==
PROVIDERS: PCP Internal Medicine; Visit Provider Hospitalist
DX: J45.40 Moderate persistent asthma, uncomplicated (principal); Z91.09 Other allergy status, other than to drugs and biological substances; R91.8 Other nonspecific abnormal finding of lung field; R74.8 Abnormal levels of other serum enzymes; I27.82 Chronic pulmonary embolism
CPT/HCPCS: 99214

== ENCOUNTER → 2023-07-04 14:58 | Outpatient (BNVA) | payer OTHER, SELFPAY | PROVIDERS: PCP Internal Medicine; Visit Provider Hospitalist | DX: J45.40 Moderate persistent asthma, uncomplicated (principal); R91.8 Other nonspecific abnormal finding of lung field; R74.8 Abnormal levels of other serum enzymes; I27.82 Chronic pulmonary embolism; Z91.09 Other allergy status, other than to drugs and biological substances | CPT/HCPCS: 99212 ==

== ENCOUNTER 2023-08-01 11:34 | Outpatient (REF) | payer OTHER, SELFPAY | END 2023-08-01 11:35 | disposition home or self-care (01) | LOC: HO.MDS 11:34 | PROVIDERS: Visit Provider Hospitalist | DX: J45.50 Severe persistent asthma, uncomplicated (principal) | CPT/HCPCS: 96372; J2357 ==

== ENCOUNTER 2023-09-10 09:13 | Outpatient (REF) | payer OTHER, SELFPAY | END 2023-09-10 09:14 | disposition home or self-care (01) | LOC: HO.MDS 09:13 | PROVIDERS: Visit Provider Hospitalist | DX: J45.50 Severe persistent asthma, uncomplicated (principal) | CPT/HCPCS: 96372; J2357 ==

== ENCOUNTER 2023-09-24 13:22 | Outpatient (REF) | payer OTHER, SELFPAY ==
[2023-09-24 13:32] VITALS: BP 103/64; PULSE 73; RESP 18; TEMP 37.1; O2SAT 99; BMI 28.3
== END 2023-09-24 13:23 | disposition home or self-care (01) ==
LOC: HO.MDS 13:22
PROVIDERS: Visit Provider Hospitalist
DX: J45.50 Severe persistent asthma, uncomplicated (principal)
CPT/HCPCS: 96372; J2357

== ENCOUNTER 2023-10-24 15:29 | Outpatient (AMB) | payer OTHER, SELFPAY ==
[2023-10-24 15:33] VITALS: PULSE 81; O2SAT 100; BMI 28.3
--- NOTE | 2023-10-24 15:33 | A.OFFVIS_ITS ---
Intake Vital Signs 10/24/23 15:33 Height 5 ft 1 in Weight 150 lb BMI 28.3 Pulse 81 Pulse Source Pulse Oximeter Pulse Oximetry (%) 100 Oxygen Delivery Method Room Air Intake Visit Reasons: sarcoidosis Supervisor Dental Laboratory Required: No Allergies cefoxitin [CEFOXITIN] Allergy (Severe, Verified 10/24/23 15:34) Anaphylaxis sertraline Allergy (Severe, Verified 10/24/23 15:34) itching vancomycin [VANCOMYCIN] Allergy (Severe, Verified 10/24/23 15:34) Anaphylaxis Iodinated Contrast Media Allergy (Intermediate, Verified 10/24/23 15:34) Wheezing HPI HPI Comments History of Present Illness Details The patient is a 32-year-old woman with a known history of a brain cancer status post chemotherapy many years ago. Ultimately also had a DVT requiring anticoagulation. She has been having increasing dyspnea on exertion. Moderate severity progressive in nature. In addition to that she has noticed some blood in the sputum. At times it is mixed in with mucus. Sometimes it is bright red. She did show me some pictures. usually is minimal in amount may be a dime size. This episode occur about once a week per the patient. The last time she was evaluated was in the ER because of shortness of breath, chest pains and hemoptysis. Her D-dimer was indeed elevated. The patient did have a CTA which I personally reviewed with her. No evidence of any parenchymal or airspace disease. No evidence of any thromboembolic disease. The patient was placed on Symbicort with partial improvement of the symptoms. The patient also has had issues with dysphagia. She did undergo will go a recent endoscopy demonstrating some slight strictures. She did have dilation. It appears that she is doing a little better from this condition. At this point in view of her ongoing hemoptysis will try to plan a bronchoscopy to better assess the airways and see if there is any evidence of any active bleeding from any particular area. Also can assess her posterior pharynx and nasal passages to make sure she is not bleeding from there as well. Will request blood work at this time looking for connective tissue disorder in order to see if we can find an explanation as far as the [place] diagnosis for her ongoing issues. 03/18/2023 the patient is here for a sick visit. Apparently she started having more hemoptysis and also pleuritic chest pain. With her when she would take a deep breath specially between the a scapula on back and also in the substernal area. Axul-ph-jfsmrlcr severity. Also complaining of shortness of breath. She has noted that she has been more tachycardic. She still waiting for her cardiac PET. Had to be rescheduled based on the fact that the [facility] PET scan broke down. She was prescribed prednisone. Sleep but she only took for 2 days did not like the way it made her feel and she stop that therefore is hard to know if actual was effective. She still concern with constitutional symptoms from losing her hair to rashes to the coughing up blood to the shortness of breath. Explained to her that with the angiotensin-converting enzyme level being so significantly elevated we need to further assess the diagnosis of sarcoidosis in that started hopeful that we will find out from the cardiac PET scan. If the patient does have more concrete evidence of sarcoidosis we could treat her appropriately if we cannot get answers we may have to refer her to [facility]. Meantime based on her symptoms will go ahead and repeat her D-dimer. Also will assess for other connective tissue conditions based on her constitutional symptoms. If the D-dimer is elevated she will require CTA to rule out pulmonary emboli. She has had blood clots in the past. When she melinda led last week I did send her course of doxycycline. She has not used that as of yet. Although the hemoptysis seems to be a little better over the weekend. She did show a picture that hemoptysis primarily was bright red blood about a nickel amount mixed in with regular looking sputum. 04/09/2023 the patient is here for a pulmonary follow-up visit. Much as happened since we last spoke. The patient was having pleuritic discomfort. D- dimer was elevated. Therefore she did undergo CTA. It demonstrated a question of a pulmonary emboli. Therefore the patient was started on Eliquis. The pat richar has had deep venous thrombosis in the past. The patient underwent a V/Q scan to further address the question of pulmonary embolism. It demonstrated no evidence of any perfusion defects therefore negative for pulmonary emboli. At that point the patient is having some difficulties tolerating the Eliquis and she decided to stop it. The patient understands that having the negative V/Q scan does not rule out blood clots since she was already on therapy. The patient also had an elevated D-dimer. She is willing to repeat a D-dimer. If D-dimer continues to be elevated I did recommend she go back on Eliquis at least completed 3 months course. The patient is awaiting her cardiac PET scan. It was finally approved and she will have it done this week. Will be assessing for any evidence of any cardiac sarcoid. In addition to that she is going to have her eye exam to rule out uveitis in the coming days. In addition to that the patient does state that she develops a rash at times. Right now the rashes improved. In addition to these can rash she is noticed nodular densities on her labia of her genitals. She is wondering if this could be potentially sarcoidosis. Patient will need a biopsy to assess for granulomas. At this point all we have is that her Rojas level continues to be critically elevated which is a marker of active sarcoidosis. If indeed all her symptoms are cons istent with sarcoidosis then we can start her on therapy. 07/04/2023 the patient is here for a pulm onary follow-up visit. Overall she is doing about the same. Still complaining of shortness of breath and chest pressure sensation pressure that radiates to the back. The Symbicort does help but is not completely helpful. We did review her allergy testing in her IgE in her IgE is significantly elevated above 300 she does have significant allergies to both environmental allergies in foods. At this point she is maximized on respiratory therapy then I do believe that she will be a great candidate for Xolair. Hopefully by using biologics we can improve her respiratory complaints. The patient did follow-up with the industrial machine operator and they did not see any sarcoid in the eyes although she does have the beginnings of cataracts. In addition to that the patient was seen by Dermatology but they did not see any lesions to be concerned about from dermatological standpoint. There which is concerned about acne. Therefore, this point we have exhausted all the different potential sarcoid related conditions and nothing really to explain the significantly elevated Rojas level. Explained to her that is likely more of a genetic abnormality where she has an elevated Rojas level without actually having sarcoidosis. Therefore, but these sarcoidosis question aside. Will try the Xolair therapies to treat her significant asthma and significant allergies and hope to improve her all respiratory capacity and quality of life. If the patient does not see any significant improvement with the Xolair then will refer her to [facility] for further tertiary care. 10/24/2023 the patient is here for a pulm onary follow-up visit. She started developing episodes of hemoptysis again. Intermittent. Mild in severity. Also complaining of shortness of breath and chest discomfort. She had a CTA back in February demonstrating some subsegmental pulmonary emboli. Will go ahead and repeat her CTA at this time. Again, we talked about the abnormal Rojas level. 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 She has already been ruled out for sarcoidosis. Also to note that she did have a cardiac PET to further evaluate for cardiac sarcoid specially since she has a pacemaker. The cardiac PET was reassuring without any evidence of any FDG activity a the heart or the heart. Although it demonstrated hyper metabolic activity of the breast tissue bilaterally. We will review the CT scan images. However the patient may benefit from getting a breast ultrasound for better assessment of that area. She has been on the Xolair. Although more recently she has been having some difficulties with transportation and has not been able to get it regularly. She understand that she is significant allergies and I do believe that she does develop significant chest tightness from bronchospasms from untreated allergic asthma. Therefore she will make an effort to get her Xolair injections regularly. [facility] Medical History (Updated 10/24/23 @ 22:58 by Justen Nettles MD) Environmental allergies Asthma Pulmonary emboli Pleuritic chest pain Abnormal serum angiotensin-converting enzyme level Cardiac arrhythmia Pulmonary nodules Dyspnea History of DVT (deep vein thrombosis) History of chemotherapy History of palpitations Hx of supraventricular tachycardia Narcolepsy Seasonal allergies Anxiety and depression Pacemaker Pernicious anemia B12 deficiency Active asthma POTS (postural orthostatic tachycardia syndrome) H/O brain tumor Surgical History History of repair of rectocele Hx of hysterectomy History of cardiac radiofrequency ablation (RFA) Hx of craniotomy H/O colonoscopy H/O esophagogastroduodenoscopy Hx of appendectomy Family History Mother Heart problem Maternal Grandfather Heart problem Paternal Grandmother Dementia Social History Household Members: None Are you a primary child care director to a significant other at home: No Do you presently have visiting nurse or other home services: Yes (WORK FROM HOME 4.5 week) Alcohol intake: current Alcohol intake frequency: a few times a month Patient Tobacco Use Status: Never used Tobacco Review of Systems Const Reports body aches, Reports fatigue and Denies night sweats Eyes Reports change in vision ENT Reports dysphagia and Denies epistaxis Card Denies chest pain, Reports dyspnea and Reports dyspnea on exertion Resp Reports cough, Reports hemoptysis, Reports pain on inspiration, Reports pain with cough, Reports dyspnea, Reports dyspnea on exertion and Reports wheezing GI Reports as per HPI, Reports constipation and Reports dysphagia Reports as per HPI and Reports genital lesions Musc Reports no additional complaints Skin/Breast Reports alopecia, Reports pruritus and Denies rash Neuro Reports as per HPI Endo Reports fatigue Fabian/Lymph Denies easy bleeding, Denies easy bruising and Denies lymphadenopathy Aller/Immun Reports wheezing Physical Exam Vital Signs: Last Vital Signs Pulse 81 10/24/23 15:33 Pulse Ox 100 10/24/23 15:33 Oxygen Delivery Method Room Air 10/24/23 15:33 BMI result Body Mass Index 28.3 Const General: comfortable HEENT Head: Yes normocephalic Eyes General: appearance normal, both eyes and all related structures Neck Neck: Yes supple Chest Chest palpation & inspection: normal inspection of the chest Resp Effort & Inspection: normal respiratory effort Auscultation: diminished lung sounds Cardio Rate: regular rate Rhythm: regular rhythm Heart sounds: S1 normal heart sound present and S2 normal heart sound present GI Palpation (GI): Soft to palpation External Female Exam: lesion (The patient brought a picture-vasiculopapular lesion with drainage) Skin General skin exam: other (papules) Extrem General: Yes no clubbing, cyanosis or edema Assessment & Plan Assessment & Plan (1) Asthma: Code(s): J45.909 - Unspecified asthma, uncomplicated Qualifiers: Asthma complication type: uncomplicated Asthma persistence: persistent Asthma severity: moderate Qualified Code(s): J45.40 - Moderate persistent asthma, uncomplicated (2) Environmental allergies: Code(s): Z91.09 - Other allergy status, other than to drugs and biological substances (3) Pulmonary nodules: Code(s): R91.8 - Other nonspecific abnormal finding of lung field (4) Abnormal serum angiotensin-converting enzyme level: Comment: No evidence of sarcoidosis Code(s): R74.8 - Abnormal levels of other serum enzymes (5) Pulmonary emboli: Comment: quationable base on CTA, but VQ negative Code(s): I26.99 - Other pulmonary embolism without acute cor pulmonale Qualifiers: Acute cor pulmonale presence: unspecified Chronicity: chronic Pulmonary embolism type: other Qualified Code(s): I27.82 - Chronic pulmonary embolism (6) Hemoptysis: Comment: recurrent Code(s): R04.2 - Hemoptysis Plan continue Symicort continue Xolair 225mg [id number] DAMARI as needed continue allergy therapies CTA to reassess for PE/CTED Bloodwork F/U 2-3 months Orders: Orders CT angio chest PE protocol Today I26.99 - Other pulmonary embolism without acute cor pulmonale, R04.2 - Hemoptysis, R91.8 - Other nonspecific abnormal finding of lung field Basic Metabolic Panel Today D86.9 - Sarcoidosis, unspecified, J45.909 - Unspecified asthma, uncomplicated Liver Panel Today D86.9 - Sarcoidosis, unspecified, J45.909 - Unspecified asthma, uncomplicated Angiotensin Converting Enzyme Today D86.9 - Sarcoidosis, unspecified, J45.909 - Unspecified asthma, uncomplicated RESHMA Reflex Titer and Pattern Today D86.9 - Sarcoidosis, unspecified, J45.909 - Unspecified asthma, uncomplicated Complete Blood Count Auto Diff Today D86.9 - Sarcoidosis, unspecified, J45.909 - Unspecified asthma, uncomplicated Erythrocyte Sedimentation Rate Today D86.9 - Sarcoidosis, unspecified, J45.909 - Unspecified asthma, uncomplicated Sjogren's Antibodies Today D86.9 - Sarcoidosis, unspecified, J45.909 - Unspecified asthma, uncomplicated Coding Level of Care Code Est Pt Level 4 (02565) Diagnoses Moderate persistent asthma without complication J45.40 Asthma complication type: uncomplicated Asthma persistence: persistent Asthma severity: moderate Environmental allergies Z91.09 Pulmonary nodules R91.8 Abnormal serum angiotensin-converting enzyme level R74.8 Other chronic pulmonary embolism, unspecified whether acute cor pulmonale present I27.82 Acute cor pulmonale presence: unspecified Chronicity: chronic Pulmonary embolism type: other Hemoptysis R04.2 Time Spent (min) 18
== END 2023-10-24 15:59 | disposition home or self-care (01) ==
PROVIDERS: PCP Internal Medicine; Visit Provider Hospitalist
DX: J45.40 Moderate persistent asthma, uncomplicated (principal); Z91.09 Other allergy status, other than to drugs and biological substances; R91.8 Other nonspecific abnormal finding of lung field; R74.8 Abnormal levels of other serum enzymes; I27.82 Chronic pulmonary embolism; R04.2 Hemoptysis
CPT/HCPCS: 99214

== ENCOUNTER → 2023-10-24 15:29 | Outpatient (BNVA) | payer OTHER, SELFPAY | PROVIDERS: PCP Internal Medicine; Visit Provider Hospitalist | DX: J45.40 Moderate persistent asthma, uncomplicated (principal); R91.8 Other nonspecific abnormal finding of lung field; R74.8 Abnormal levels of other serum enzymes; R04.2 Hemoptysis; I27.82 Chronic pulmonary embolism; Z91.09 Other allergy status, other than to drugs and biological substances | CPT/HCPCS: 99212 ==

== ENCOUNTER 2023-10-28 15:15 | Outpatient (AMB) | payer OTHER, SELFPAY ==
--- NOTE | 2023-10-28 15:15 | A.OFFVIS_ITS ---
Intake Intake Visit Reasons: abdominal pains Intake Note: Ekta presents as a telehealth. CC: She states that in the begninng of last year she had a hysterectomy and a huge fibroid removed. She is wondering if something went wrong. Her sex is painful and uncomfortable and she also states that rectoseal that Annette said she had she was told it was filled but she wants to know if it may have opened up. 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 Times as causes her nausea. Carafate 1 gm tid Previously treated with Rifaximin for SIBO- she now takes it intermittently, somewhat p.r.n. She was seeing Dr. Bello, as well as Dr. Leigh- Has always has GI problems, since she was a kid- The pain she has now is way different. Mostly epigastric, bloating She has had a pacemaker for 2 years sleep variable dx with narcolepsy, on armodafinil maybe affecting her appetite negative genetic tests for NF and colorectal d/o TESTS: EGD/colonoscopy 2016 -[facility]-02/2020-nml MRI A/P: no inflammation, stool burden noted duplex: mild raised velocities she had MR defecography with fibroid, rectocele repeat Colonoscopy/EGD 10/2021; Endoscopy Findings: erosive gastritis possible reta Colonoscopy Findings: internal hemorrhoids abnormal appearing TI Path: A. Duodenum, biopsy: Duodenal mucosa with mildly increased intraepithelial lymphocytes and preserved villous architecture; negative for T. whipplei. See comment. B. Stomach, biopsy: Oxyntic mucosa with mild chronic inactive inflammation; no Helicobacter organisms seen. C. Esophagus, random, biopsy: Active esophagitis (maximum eosinophil count focally up to 19 per high powered field). D. Terminal ileum, biopsy: Terminal ileal mucosa within normal limits. E. Colon, random, biopsy: Colonic mucosa within normal limits. LABS: neg celiac, b12, nml, pernicious anemia ab--neg, fat oren vits were nml, RAST -- pos for milk, hazelnut, wheat, egg CXR--nml Ba swallow-tablet passed easily, but sub optimal study as couldn drink the barium, reflux EGD 10/03/22 schatzki ring mild esophagitis lax LES dilation to 16 mm--no tears I referred her to pulm for hemoptysis w/u for sarcoid due to high TAMEKA--negative, but v high IgE and put on xolair for asthma sx she also had a qn of PTE, its is uncertain --awaiting rept CTPE she had a hysterectomy, and had rectocele repaired 07/31/22 INTERIM: she has ongoing hemoptysis she is taken trulance but its too powerful and hard to work feels she has to drink a lot of water with it she feels she has bad body odour where she smells like 'poo' she doesn;t sweat more than normal muscles are tight and hurts wrists EXAM: GENERAL: The patient is well developed and nontoxic. VITAL SIGNS:see workflow HEENT: Nonicteric sclerae, PERRLA, EOMI. Oropharynx clear. Moist mucous membranes. Conjunctivae appear well perfused. No thyroid mass. CHEST: Chest wall is nontender. HEART: Regular rate and rhythm without murmurs. LUNGS: Clear to auscultation bilaterally. ABDOMEN: Soft, positive bowel sounds, nontender, no organomegaly.no flank tenderness SKIN: No rash, no excessive bruising, petechiae, or purpura. NEUROLOGIC: Cranial nerves II-XII intact without motor/sensory deficit. Assessments 1. dysphagia--may be related to GERD, dysmotility, reta, globus 2. hemoptysis,maybe related to 1/ above 3. ?fish odor syndrome trimethylaminuria PLAN: 1/ trial of rifaximin, maybe lactulose a s well 2/ might need urine testing for TMO 3/ heavy metals screen 4/ maybe mold allergen check [facility] Medical History Environmental allergies Asthma Pulmonary emboli Pleuritic chest pain Abnormal serum angiotensin-converting enzyme level Cardiac arrhythmia Pulmonary nodules Dyspnea History of DVT (deep vein thrombosis) History of chemotherapy History of palpitations Hx of supraventricular tachycardia Narcolepsy Seasonal allergies Anxiety and depression Pacemaker Pernicious anemia B12 deficiency Active asthma POTS (postural orthostatic tachycardia syndrome) H/O brain tumor Surgical History History of repair of rectocele Hx of hysterectomy History of cardiac radiofrequency ablation (RFA) Hx of craniotomy H/O colonoscopy H/O esophagogastroduodenoscopy Hx of appendectomy Family History Mother Heart problem Maternal Grandfather Heart problem Paternal Grandmother Dementia Social History Household Members: None Are you a primary resident care supervisor to a significant other at home: No Do you presently have visiting nurse or other home services: Yes (SERVICE AGENT 4.5 week) Alcohol intake: current Alcohol intake frequency: a few times a month Patient Tobacco Use Status: Never used Tobacco Assessment & Plan Assessment & Plan (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 Plan: see above (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 Plan: see above Orders: Orders Heavy Metal Screen [place] Urine 10/28/23 L75.0 - Bromhidrosis Heavy Metals Screen Blood 10/28/23 L75.0 - Bromhidrosis Medications: New lubiprostone (Amitiza) 8 mcg PO BID 60 caps 2RF Discontinued plecanatide (Trulance) Discontinued Reason: Patient no longer taking 3 mg PO DAILY 30 tabs 2RF Telehealth Telehealth Location of provider rendering services: practice address Location of patient: address on file Patient Identification confirmed using: Name, : Yes Telehealth method: video Patient verbally consented to treatment: Yes Patient verbally consented to billing insurance company: Yes Patient informed of any privacy concerns related to visit: Yes Minutes spent on Phone/Video with Pt.: 31 Coding Level of Care Code Tele Est Pt Level 4 (82351) Diagnoses Bromhidrosis L75.0 Fish odor syndrome E72.52
== END 2023-10-28 17:55 | disposition home or self-care (01) ==
LOC: HO.HGI 15:15
PROVIDERS: PCP Internal Medicine; Visit Provider Internal Medicine Gastroenterology
DX: L75.0 Bromhidrosis (principal); E72 Other disorders of amino-acid metabolism
CPT/HCPCS: 99214

== ENCOUNTER → 2023-10-28 15:15 | Outpatient (BNVA) | payer OTHER, SELFPAY | PROVIDERS: PCP Internal Medicine; Visit Provider Internal Medicine Gastroenterology ==

== ENCOUNTER 2023-11-12 14:36 | Outpatient (REF) | payer OTHER, SELFPAY ==
[2023-11-12 15:21] LABS: MANUAL DIFF FLAG NO
[2023-11-12 15:33] LABS: Basophils Percent Auto 0.7 % (0-2); Eosinophils Absolute Auto 0.1 X10*3/uL (0.0-0.4); Eosinophils Percent Auto 2.6 % (0-4); Hematocrit 39.6 % (37.0-47.0); Hemoglobin 13.5 g/dl (12.0-16.0); Imm Gran Abs Auto 0.01 X10*3/uL (0.00-0.03); Imm Gran Pct Auto 0.2 % (0.0-0.4); Lymphocytes Absolute Auto 1.3 X10*3/uL (1.2-4.9); Lymphocytes Percent Auto 30.8 % (20-40); Mean Corpuscular HGB Conc 34.1 g/dl (31.0-35.0); Mean Platelet Volume 12.1 fL (9.4-12.3); Monocytes Absolute Auto 0.2 X10*3/uL (0.1-1.2); Monocytes Percent Auto 5.6 % (2-11); Neutrophils Absolute Auto 2.6 x10*3/uL (2.0-8.3); Neutrophils Percent Auto 60.1 % (45-73); Platelet Count 187 X10*3/uL (160-400); Red Blood Count 4.66 X10*6/uL (4.20-5.50); Red Cell Distribution Width 13.6 % (11.0-16.0); White Blood Count 4.3 X10*3/uL (4.8-10.8)
[2023-11-12 15:41] LABS: D Dimer High Sensitivity 157 NG/ML
[2023-11-12 16:14] LABS: Erythrocyte Sedimentation Rate 7 MM/HR (0-20)
[2023-11-12 16:36] LABS: Cortisol Random 3.4 ug/dL
[2023-11-12 16:52] LABS: Alanine Aminotransferase 19 U/L (0-31); Albumin Level 4.3 g/dL (3.5-5.0); Alkaline Phosphatase 78 U/L (39-117); Anion Gap 10 (12-20); Aspartate Amino Transferase 14 U/L (5-31); Bilirubin Direct 0.2 mg/dL (0.0-0.5); Bilirubin Total 0.7 mg/dL (0.0-1.0); Blood Urea Nitrogen 7 mg/dL (9-16); Calcium 9.6 mg/dL (8.4-10.2); Carbon Dioxide 27 mmol/L (22-29); Chloride 107 mmol/L (96-108); Estimated Glomerular Filt Rate > 60; Glucose Random 83 mg/dL (60-115); Potassium 3.9 mmol/L (3.3-5.1); Sodium 140 mmol/L (135-145); Total Protein 7.3 g/dL (6.5-8.0)
[2023-11-12 16:54] LABS: TSH reflex Free T4 0.85 uIU/mL (0.32-4.0)
[2023-11-13 07:52] LABS: Syphilis Screen Nonreactive (Nonreactive)
[2023-11-13 08:15] LABS: HIV AB/AG Nonreactive (Nonreactive); HIV Num 1 0.06 S/CO (0.00-0.99)
[2023-11-13 14:38] LABS: IgA 78 mg/dL (47-310); IgG 1249 mg/dL (600-1640); IgM 236 mg/dL (50-300)
[2023-11-13 19:38] LABS: Antibody to SS-A Antigen <1.0 NEG AI (<1.0 NEG); Antibody to SS-B Antigen <1.0 NEG AI (<1.0 NEG)
[2023-11-13 23:08] LABS: Immunoglobulin E 370 kU/L (<OR=114)
[2023-11-14 12:53] LABS: Anti Nuclear Antibody Screen NEGATIVE (NEGATIVE)
[2023-11-14 21:18] LABS: Angiotensin Converting Enzyme >360 U/L (9-67)
[2023-11-15 21:03] LABS: Arsenic, Blood <3 mcg/L (<23); Lead, Blood <1.0 mcg/dL (<3.5); Mercury, Blood <4 mcg/L (<=10)
== END 2023-11-12 14:37 | disposition home or self-care (01) ==
LOC: HO.LAB 14:36
PROVIDERS: Internal Medicine Gastroenterology; Visit Provider Hospitalist
DX: Z11.4 Encounter for screening for human immunodeficiency virus [HIV] (principal); L75.0 Bromhidrosis; N89.8 Other specified noninflammatory disorders of vagina; R06.00 Dyspnea, unspecified; R07.81 Pleurodynia; J45.909 Unspecified asthma, uncomplicated; D86.9 Sarcoidosis, unspecified; R91.8 Other nonspecific abnormal finding of lung field; I26.99 Other pulmonary embolism without acute cor pulmonale
CPT/HCPCS: 36415; 80048; 80076; 82164; 82175; 82533; 82784; 82785; 83655; 83825; 84443; 85025; 85379; 85652; 86038; 86235; 86780; 87389

== ENCOUNTER 2023-12-12 13:35 | Outpatient (REF) | payer OTHER, SELFPAY ==
--- NOTE | ~2023-12-12 | CT_ITS ---
EXAMINATION: CT ANGIOGRAM OF THE CHEST WITH AND WITHOUT CONTRAST (CT PULMONARY ANGIOGRAM FOR PE) CLINICAL INFORMATION: Reason for Exam R91.8 - Other nonspecific abnormal finding of lung field COMPARISON: 03/19/2023 inflow 2018 TECHNIQUE: Prior to contrast administration, noncontrast localization images were obtained. Subsequently, multidetector volumetric imaging was performed from the thoracic inlet to below the diaphragms following the administration of 65 mL Omnipaque 350 intravenous contrast. No contrast reaction reported Sagittal, coronal, and MIP oblique sagittal reformatted images were obtained on the CT workstation, uploaded to PACS, and reviewed. This CT examination was performed using dose optimization techniques as appropriate, variously including the following: *Automated exposure control *Adjustment of mA and/or kV according to patient size (this includes techniques or standardized protocols for targeted exams where dose is matched to indication/reason for exam; i.e. extremities or head) *Use of iterative reconstruction technique Total exam dose-length product 94 mGy-cm FINDINGS: QUALITY OF STUDY/CONTRAST BOLUS: Satisfactory. PULMONARY ARTERIES: No pulmonary emboli. THORACIC AORTA: No aneurysm. LUNG: No focal consolidation or masses. There is stable 0.2 cm nodule in the left upper lobe seen on image 78 series 7 PLEURA: No pleural effusion or pneumothorax. MEDIASTINUM: Normal heart size. No pericardial effusion. No hilar or mediastinal lymphadenopathy. No evidence of septal bowing or right heart strain. CORONARY ARTERY CALCIFICATION: None visualized on this study. CHEST WALL/AXILLA: No axillary or internal mammary lymphadenopathy. There is stable since previous examination circumscribed nodule in the medial aspect of right breast correlate with mammogram/ultrasound. OSSEOUS STRUCTURES: No acute or suspicious osseous abnormality. UPPER ABDOMEN: Unremarkable. No reflux of contrast into the hepatic veins to suggest elevated right heart pressures. CT/CT angio chest PE protocol IMPRESSION: 1. No evidence of pulmonary embolism. 2. Stable left upper lobe 0.2 cm nodule. VTE: negative.
[2023-12-12] MEDS: iohexoL 350 MG/ML 100 ML INFUS..BTL 65 ML IV (16:17)
== END 2023-12-12 13:36 | disposition home or self-care (01) ==
LOC: HO.CT 13:35
PROVIDERS: PCP Internal Medicine; Visit Provider Hospitalist
DX: R91.8 Other nonspecific abnormal finding of lung field (principal); R04.2 Hemoptysis; I26.99 Other pulmonary embolism without acute cor pulmonale
CPT/HCPCS: 71275; Q9967

== ENCOUNTER 2023-12-26 13:52 | Outpatient (AMB) | payer OTHER, SELFPAY ==
--- NOTE | 2023-12-26 13:57 | A.OFFVIS_ITS ---
Vital Signs 12/26/23 13:58 Height 5 ft 1 in Weight 149 lb 14.629 oz BMI 28.3 Pulse 80 Pulse Source Pulse Oximeter Pulse Oximetry (%) 99 Oxygen Delivery Method Room Air Intake Visit Reasons: sarcoidosis Overnight Stocker Required: No Allergies cefoxitin [CEFOXITIN] Allergy (Severe, Verified 12/26/23 14:02) Anaphylaxis sertraline Allergy (Severe, Verified 12/26/23 14:02) itching vancomycin [VANCOMYCIN] Allergy (Severe, Verified 12/26/23 14:02) Anaphylaxis Iodinated Contrast Media Allergy (Intermediate, Verified 12/26/23 14:02) Wheezing HPI Comments Details: The patient is a 33-year-old woman with a known history of a brain cancer status post chemotherapy many years ago. Ultimately also had a DVT requiring anticoagulation. She has been having increasing dyspnea on exertion. Moderate severity progressive in nature. In addition to that she has noticed some blood in the sputum. At times it is mixed in with mucus. Sometimes it is bright red. She did show me some pictures. usually is minimal in amount may be a dime size. This episode occur about once a week per the patient. The last time she was evaluated was in the ER because of shortness of breath, chest pains and hemoptysis. Her D-dimer was indeed elevated. The patient did have a CTA which I personally reviewed with her. No evidence of any parenchymal or airspace disease. No evidence of any thromboembolic disease. The patient was placed on Symbicort with partial improvement of the symptoms. The patient also has had issues with dysphagia. She did undergo will go a recent endoscopy demonstrating some slight strictures. She did have dilation. It appears that she is doing a little better from this condition. At this point in view of her ongoing hemoptysis will try to plan a bronchoscopy to better assess the airways and see if there is any evidence of any active bleeding from any particular area. Also can assess her posterior pharynx and nasal passages to make sure she is not bleeding from there as well. Will request blood work at this time looking for connective tissue disorder in order to see if we can find an explanation as far as the [place] diagnosis for her ongoing issues. 03/18/2023 the patient is here for a sick visit. Apparently she started having more hemoptysis and also pleuritic chest pain. With her when she would take a deep breath specially between the a scapula on back and also in the substernal area. [id number] severity. Also complaining of shortness of breath. She has noted that she has been more tachycardic. She still waiting for her cardiac PET. Had to be rescheduled based on the fact that the [facility] PET scan broke down. She was prescribed prednisone. Sleep but she only took for 2 days did not like the way it made her feel and she stop that therefore is hard to know if actual was effective. She still concern with constitutional symptoms from losing her hair to rashes to the coughing up blood to the shortness of breath. Explained to her that with the angiotensin-converting enzyme level being so significantly elevated we need to further assess the diagnosis of sarcoidosis in that started hopeful that we will find out from the cardiac PET scan. If the patient does have more concrete evidence of sarcoidosis we could treat her appropriately if we cannot get answers we may have to refer her to [place]. Meantime based on her symptoms will go ahead and repeat her D-dimer. Also will assess for other connective tissue conditions based on her constitutional symptoms. If the D-dimer is elevated she will require CTA to rule out pulmonary emboli. She has had blood clots in the past. When she called last week I did send her course of doxycycline. She has not used that as of yet. Although the hemoptysis seems to be a little better over the weekend. She did show a picture that hemoptysis primarily was bright red blood about a nickel amount mixed in with regular looking sputum. 04/09/2023 the patient is here for a pulmonary follow-up visit. Much as happened since we last spoke. The patient was having pleuritic discomfort. D- dimer was elevated. Therefore she did undergo CTA. It demonstrated a question of a pulmonary emboli. Therefore the patient was started on Eliquis. The patient has had deep venous thrombosis in the past. The patient underwent a V/Q scan to further address the question of pulmonary embolism. It demonstrated no evidence of any perfusion defects therefore negative for pulmonary emboli. At that point the patient is having some difficulties tolerating the Eliquis and she decided to stop it. The patient understands that having the negative V/Q scan does not rule out blood clots since she was already on therapy. The patient also had an elevated D-dimer. She is willing to repeat a D-dimer. If D-dimer continues to be elevated I did recommend she go back on Eliquis at least completed 3 months course. The patient is awaiting her cardiac PET scan. It was finally approved and she will have it done this week. Will be assessing for any evidence of any cardiac sarcoid. In addition to that she is going to have her eye exam to rule out uveitis in the coming days. In addition to that the patient does state that she develops a rash at times. Right now the rashes improved. In addition to these can rash she is noticed nodular densities on her labia of her genitals. She is wondering if this could be potentially sarcoidosis. Patient will need a biopsy to assess for granulomas. At this point all we have is that her Rojas level continues to be critically elevated whi ch is a marker of active sarcoidosis. If indeed all her symptoms are consistent with sarcoidosis then we can start her on therapy. 07/04/2023 the patient is here for a pulmonary follow-up visit. Overall she is doing about the same. Still complaining of shortness of breath and chest pressure sensation pressure that radiates to the back. The Symbicort does help but is not completely helpful. We did review her allergy testing in her IgE in her IgE is significantly elevated above 300 she does have significant allergies to both environmental allergies in foods. At this point she is maximized on respiratory therapy then I do believe that she will be a great candidate for Xolair. Hopefully by using biologics we can improve her respiratory complaints. The patient did follow-up with the medical staff specialist and they did not see any sarcoid in the eyes although she does have the beginnings of cataracts. In addition to that the patient was seen by Dermatology but they did not see any lesions to be concerned about from dermatological standpoint. There which is concerned about acne. Therefore, this point we have exhausted all the different potential sarcoid related conditions and nothing really to explain the significantly elevated Rojas level. Explained to her that is likely more of a genetic abnormality where she has an elevated Rojas level without actually having sarcoidosis. Therefore, but these sarcoidosis question aside. Will try the Xolair therapies to treat her significant asthma and significant allergies and hope to improve her all respiratory capacity and quality of life. If the patient does not see any significant improvement with the Xolair then will refer her to [place] for further tertiary care. 10/24/2023 the patient is here for a pulmonary follow-up visit. She started developing episodes of hemoptysis again. Intermittent. Mild in severity. Also complaining of shortness of breath and chest discomfort. She had a CTA back in February demonstrating some subsegmental pulmonary emboli. Will go ahead and repeat her CTA at this time. Again, we talked about the abnormal Rojas level. 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 She has already been ruled out for sarcoidosis. Also to note that she did have a cardiac PET to further evaluate for cardiac sarcoid specially since she has a pacemaker. The cardiac PET was reassuring without any evidence of any FDG activity a the heart or the heart. Although it demonstrated hyper metabolic activity of the breast tissue bilaterally. We will review the CT scan images. However the patient may benefit from getting a breast ultrasound for better assessment of that area. She has been on the Xolair. Although more recently she has been having some difficulties with transportation and has not been able to get it regularly. She understand that she is significant allergies and I do believe that she does develop significant chest tightness from bronchospasms from untreated allergic asthma. Therefore she will make an effort to get her Xolair injections regularly. 12/26/2023 the patient is here for a pulmonary follow-up visit. Overall she is feeling better. She continues on the Xolair injections every 2 weeks. She also continues with Symbicort. Her respiratory symptoms have improved. Denies any hemoptysis. Denies any chest pain. We did review her blood work and she still continues have the elevated Rojas level. At this point the think it has related to a genetic predisposition. No evidence of any active sarcoidosis. She did have a CTA based on the fact that she had blood clots in the past still has an elevated D-dimer. The patient does have pulmonary nodules noted. Alone see any evidence of any residual blood clots. Will awaiting the final read on the CT scan. We did review her PET scan that she had previously regarding the question of cardiac sarcoid. No evidence of any cardiac sarcoid noted but there was some increased metabolic activity in the breasts bilaterally. 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 Patient is status post hysterectomy. [facility] Medical History Environmental allergies Asthma Pulmonary emboli Pleuritic chest pain Abnormal serum angiotensin-converting enzyme level Cardiac arrhythmia Pulmonary nodules Dyspnea History of DVT (deep vein thrombosis) History of chemotherapy History of palpitations Hx of supraventricular tachycardia Narcolepsy Seasonal allergies Anxiety and depression Pacemaker Pernicious anemia B12 deficiency Active asthma POTS (postural orthostatic tachycardia syndrome) H/O brain tumor Surgical History History of repair of rectocele Hx of hysterectomy History of cardiac radiofrequency ablation (RFA) Hx of craniotomy H/O colonoscopy H/O esophagogastroduodenoscopy Hx of appendectomy Family History Mother Heart problem Maternal Grandfather Heart problem Paternal Grandmother Dementia Social History Household Members: None Are you a primary long term care pharmacist to a significant other at home: No Do you presently have visiting nurse or other home services: Yes (LOCKSTITCH TUNNEL ELASTIC OPERATOR 4.5 week) Alcohol intake: current Alcohol intake frequency: a few times a month Patient Tobacco Use Status: Never used Tobacco Review of Systems Const Reports body aches, Reports fatigue and Denies night sweats Eyes Denies change in vision ENT Reports dysphagia and Denies epistaxis Card Denies chest pain, Denies dyspnea and Denies dyspnea on exertion Resp Denies cough, Denies hemoptysis, Denies pain on inspiration, Denies pain with cough, Denies dyspnea, Denies dyspnea on exertion and Denies wheezing GI Reports as per HPI, Reports constipation and Reports dysphagia Reports as per HPI and Reports genital lesions Musc Reports no additional complaints Skin/Breast Reports alopecia, Reports pruritus and Denies rash Neuro Reports as per HPI Endo Reports fatigue Fabian/Lymph Denies easy bleeding, Denies easy bruising and Denies lymphadenopathy Aller/Immun Denies wheezing Physical Exam Vital Signs: Last Vital Signs Pulse 80 12/26/23 13:58 Pulse Ox 99 12/26/23 13:58 Oxygen Delivery Method Room Air 12/26/23 13:58 BMI result Body Mass Index 28.3 Const General: comfortable HEENT Head: Yes normocephalic Eyes General: appearance normal, both eyes and all related structures Neck Neck: Yes supple Chest Chest palpation & inspection: normal inspection of the chest Resp Effort & Inspection: normal respiratory effort Auscultation: clear to auscultation bilaterally and no wheezes Cardio Rate: regular rate Rhythm: regular rhythm Heart sounds: S1 normal heart sound present and S2 normal heart sound present GI Palpation (GI): Soft to palpation External Female Exam: lesion (The patient brought a picture-vasiculopapular lesion with drainage) Skin General skin exam: other (papules) Extrem General: Yes no clubbing, cyanosis or edema Assessment & Plan Assessment & Plan (1) Asthma: Code(s): J45.909 - Unspecified asthma, uncomplicated Category: Medical Qualifiers: Asthma complication type: uncomplicated Asthma persistence: persistent Asthma severity: moderate Qualified Code(s): J45.40 - Moderate persistent asthma, uncomplicated (2) Environmental allergies: Code(s): Z91.09 - Other allergy status, other than to drugs and biological substances Category: Medical (3) Pulmonary nodules: Code(s): R91.8 - Other nonspecific abnormal finding of lung field Category: Medical (4) Abnormal serum angiotensin-converting enzyme level: Comment: No evidence of sarcoidosis Code(s): R74.8 - Abnormal levels of other serum enzymes Category: Medical (5) Pulmonary emboli: Comment: quationable base on CTA, but VQ negative Code(s): I26.99 - Other pulmonary embolism without acute cor pulmonale Category: Medical Qualifiers: Acute cor pulmonale presence: unspecified Chronicity: chronic Pulmonary embolism type: other Qualified Code(s): I27.82 - Chronic pulmonary embolism Plan continue Symicort continue Xolair 225mg [id number] DAMARI as needed continue allergy therapies CTA, awaiting final results F/U 4-6 months Coding Level of Care Code Est Pt Level 4 (69870) Diagnoses Moderate persistent asthma without complication J45.40 Asthma complication type: uncomplicated Asthma persistence: persistent Asthma severity: moderate Environmental allergies Z91.09 Pulmonary nodules R91.8 Abnormal serum angiotensin-converting enzyme level R74.8 Other chronic pulmonary embolism, unspecified whether acute cor pulmonale present I27.82 Acute cor pulmonale presence: unspecified Chronicity: chronic Pulmonary embolism type: other Time Spent (min) 17
[2023-12-26 13:58] VITALS: PULSE 80; O2SAT 99; BMI 28.3
== END 2023-12-26 14:29 | disposition home or self-care (01) ==
PROVIDERS: PCP Internal Medicine; Visit Provider Hospitalist
DX: J45.40 Moderate persistent asthma, uncomplicated (principal); Z91.09 Other allergy status, other than to drugs and biological substances; R91.8 Other nonspecific abnormal finding of lung field; R74.8 Abnormal levels of other serum enzymes; I27.82 Chronic pulmonary embolism
CPT/HCPCS: 99214

== ENCOUNTER → 2023-12-26 13:52 | Outpatient (BNVA) | payer OTHER, SELFPAY | PROVIDERS: PCP Internal Medicine; Visit Provider Hospitalist | DX: J45.40 Moderate persistent asthma, uncomplicated (principal); R91.8 Other nonspecific abnormal finding of lung field; R74.8 Abnormal levels of other serum enzymes; I27.82 Chronic pulmonary embolism; Z91.09 Other allergy status, other than to drugs and biological substances | CPT/HCPCS: 99212 ==

== ENCOUNTER 2024-01-27 14:35 | Outpatient (AMB) | payer OTHER, SELFPAY ==
--- NOTE | 2024-01-27 14:38 | A.OFFVIS_ITS ---
Vital Signs 01/27/24 14:39 Height 5 ft 1 in Weight 156 lb 8.451 oz BMI 29.6 BP 99/72 Blood Pressure Location Lt brachial Position Sitting Pulse 65 Intake Visit Reasons: 3 month follow up Intake Note: Ekta presents in the office as a 3 month follow up. CC: She states that she is having a lot of issues. Weight gain, she states that she has been having constipation. It is getting very severe. She states she has issues in her stomach. She states that she had a scan-she states that she has not heard any results. She states that she has a BM and heard a pop - she felt it in her groin area on both sides - she states that this was a couple weeks ago. She had a hernia in the past that was very small so not sure if it is related to that. Light Rail Vehicle Operator Required: No Allergies cefoxitin [CEFOXITIN] Allergy (Severe, Verified 01/27/24 14:41) Anaphylaxis sertraline Allergy (Severe, Verified 01/27/24 14:41) itching vancomycin [VANCOMYCIN] Allergy (Severe, Verified 01/27/24 14:41) Anaphylaxis Iodinated Contrast Media Allergy (Intermediate, Verified 01/27/24 14:41) Wheezing HPI HPI 3 month follow up: Details: A 33 y/o female with POT syndrome, pacemaker, uterine fibroid and rectocele, meduloblastoma who is being seen for f/u RECAP-[facility] pain in her stomach, when she ate- If she goes 3-4 hours without food she gets abdominal pain, often RUQ She feels like food sits in her stomach it just does not digest. Times as causes her nausea. Carafate 1 gm tid Previously treated with Rifaximin for SIBO- she now takes it intermittently, somewhat p.r.n. She was seeing Dr. Bello, as well as Dr. Leigh- Has always has GI problems, since she was a kid- The pain she has now is way different. Mostly epigastric, bloating She has had a pacemaker for 2 years sleep variable dx with narcolepsy, on armodafinil maybe affecting her appetite negative genetic tests for NF and colorectal d/o TESTS: EGD/colonoscopy 2016 -[facility]-02/2020-nml MRI A/P: no inflammation, stool burden noted duplex: mild raised velocities she had MR defecography with fibroid, rectocele repeat Colonoscopy/EGD 10/2021; Endoscopy Findings: erosive gastritis possible reta Colonoscopy Findings: internal hemorrhoids abnormal appearing TI Path: A. Duodenum, biopsy: Duodenal mucosa with mildly increased intraepithelial lymphocytes and preserved villous architecture; negative for T. whipplei. See comment. B. Stomach, biopsy: Oxyntic mucosa with mild chronic inactive inflammation; no Helicobacter organisms seen. C. Esophagus, random, biopsy: Active esophagitis (maximum eosinophil count focally up to 19 per high powered field). D. Terminal ileum, biopsy: Terminal ileal mucosa within normal limits. E. Colon, random, biopsy: Colonic mucosa within normal limits. LABS: neg celiac, b12, nml, pernicious anemia ab--neg, fat oren vits were nml, RAST -- pos for milk, hazelnut, wheat, egg CXR--nml Ba swallow-tablet passed easily, but sub optimal study as couldn drink the barium, reflux EGD 10/03/22 schatzki ring mild esophagitis lax LES dilation to 16 mm--no tears I referred her to pulm for hemoptysis w/u for sarcoid due to high TAMEKA--negative, but v high IgE and put on xolair for asthma sx she also had a qn of PTE, its is uncertain --awaiting rept CTPE she had a hysterectomy, and had rectocele repaired 07/31/22 INTERIM: she saw derm and might have HS she feels bloated and has bad constipation she has been pushing a lot she tried rifaximin but didn't help her sx she had bad reaction to amitizia EXAM: GENERAL: The patient is well developed and nontoxic. VITAL SIGNS:see workflow HEENT: Nonicteric sclerae, PERRLA, EOMI. Oropharynx clear. Moist mucous membranes. Conjunctivae appear well perfused. No thyroid mass. CHEST: Chest wall is nontender. HEART: Regular rate and rhythm without murmurs. LUNGS: Clear to auscultation bilaterally. ABDOMEN: Soft, positive bowel sounds, nontender, no organomegaly.no flank tenderness--slightly distended abdomen SKIN: No rash, no excessive bruising, petechiae, or purpura. NEUROLOGIC: Cranial nerves II-XII intact without motor/sensory deficit. Assessments 1. 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 PLAN: 1/ re try trulance, --can take every other day --can also think of motegrity PFS Medical History Environmental allergies Asthma Pulmonary emboli Pleuritic chest pain Abnormal serum angiotensin-converting enzyme level Cardiac arrhythmia Pulmonary nodules Dyspnea History of DVT (deep vein thrombosis) History of chemotherapy History of palpitations Hx of supraventricular tachycardia Narcolepsy Seasonal allergies Anxiety and depression Pacemaker Pernicious anemia B12 deficiency Active asthma POTS (postural orthostatic tachycardia syndrome) H/O brain tumor Surgical History History of repair of rectocele Hx of hysterectomy History of cardiac radiofrequency ablation (RFA) Hx of craniotomy H/O colonoscopy H/O esophagogastroduodenoscopy Hx of appendectomy Family History Mother Heart problem Maternal Grandfather Heart problem Paternal Grandmother Dementia Social History Household Members: None Are you a primary medicare nurse to a significant other at home: No Do you presently have visiting nurse or other home services: Yes (PSYCHOLOGIST EDUCATIONAL 4.5 week) Alcohol intake: current Alcohol intake frequency: a few times a month Patient Tobacco Use Status: Never used Tobacco Physical Exam Vital Signs: BMI result Body Mass Index 29.6 Assessment & Plan Assessment & Plan (1) Colonic inertia: Code(s): K59.9 - Functional intestinal disorder, unspecified Category: Medical Plan: see above Medications: New plecanatide (Trulance) 3 mg PO DAILY 30 tabs 3RF Discontinued lubiprostone (Amitiza) Discontinued Reason: Doctor's Order 8 mcg PO BID 60 caps 2RF Coding Level of Care Code Est Pt Level 3 (80943) Diagnoses Colonic inertia K59.9
[2024-01-27 14:39] VITALS: BP 99/72; PULSE 65; BMI 29.6
== END 2024-01-27 15:14 | disposition home or self-care (01) ==
PROVIDERS: PCP Internal Medicine; Visit Provider Internal Medicine Gastroenterology
DX: K59.9 Functional intestinal disorder, unspecified (principal)
CPT/HCPCS: 99213

== ENCOUNTER → 2024-01-27 14:35 | Outpatient (BNVA) | payer OTHER, SELFPAY | PROVIDERS: PCP Internal Medicine; Visit Provider Internal Medicine Gastroenterology | DX: K59.9 Functional intestinal disorder, unspecified (principal); K59.00 Constipation, unspecified | CPT/HCPCS: 99212 ==

== ENCOUNTER 2024-04-27 10:03 | Outpatient (AMB) | payer OTHER, SELFPAY ==
--- NOTE | 2024-04-27 10:05 | MHC.OFFVIS ---
Intake Visit Reasons: chronic abdominal pain/ per Dr. Bryant Intake Note: Ekta presents as a telehealth today with edgar. CC: Reports having chronic pains in her abdomen and needed a follow up Per Dr. Bryant. Allergies cefoxitin [CEFOXITIN] Allergy (Severe, Verified 04/27/24 10:07) Anaphylaxis sertraline Allergy (Severe, Verified 04/27/24 10:07) itching vancomycin [VANCOMYCIN] Allergy (Severe, Verified 04/27/24 10:07) Anaphylaxis Iodinated Contrast Media Allergy (Intermediate, Verified 04/27/24 10:07) Wheezing HPI HPI chronic abdominal pain/ per Dr. Bryant: Details: 33 y/o female with POT syndrome, pacemaker, uterine fibroid and rectocele, meduloblastoma who is being seen for f/u RECAP-initially saw [facility] [place] [place] pain in her stomach, when she ate- If she goes 3-4 hours without food she gets abdominal pain, often RUQ She feels like food sits in her stomach it just does not digest. Times as causes her nausea. Carafate 1 gm tid Previously treated with Rifaximin for SIBO- she now takes it intermittently, somewhat p.r.n. She was seeing Dr. Bello, as well as Dr. Leigh- Has always has GI problems, since she was a kid- The pain she has now is way different. Mostly epigastric, bloating She has had a pacemaker for 2 years sleep variable dx with narcolepsy, on armodafinil maybe affecting her appetite negative genetic tests for NF and colorectal d/o TESTS: EGD/colonoscopy 2016 -[facility]-02/2020-[facility] MRI A/P: no inflammation, stool burden noted duplex: mild raised velocities she had MR defecography with fibroid, rectocele repeat Colonoscopy/EGD 10/2021; Endoscopy Findings: erosive gastritis possible reta Colonoscopy Findings: internal hemorrhoids abnormal appearing TI Path: A. Duodenum, biopsy: Duodenal mucosa with mildly increased intraepithelial lymphocytes and preserved villous architecture; negative for T. whipplei. See comment. B. Stomach, biopsy: Oxyntic mucosa with mild chronic inactive inflammation; no Helicobacter organisms seen. C. Esophagus, random, biopsy: Active esophagitis (maximum eosinophil count focally up to 19 per high powered field). D. Terminal ileum, biopsy: Terminal ileal mucosa within normal limits. E. Colon, random, biopsy: Colonic mucosa within normal limits. LABS: neg celiac, b12, nml, pernicious anemia ab--neg, fat oren vits were nml, RAST -- pos for milk, hazelnut, wheat, egg CXR--nml Ba swallow-tablet passed easily, but sub optimal study as couldn drink the barium, reflux EGD 10/03/22 schatzki ring mild esophagitis lax LES dilation to 16 mm--no tears I referred her to pulm for hemoptysis w/u for sarcoid due to high TAMEKA--negative, but v high IgE and put on xolair for asthma sx she also had a qn of PTE, its is uncertain --awaiting rept CTPE she had a hysterectomy, and had rectocele repaired 07/31/22 I offered her a second opinion, ongoing constipation, ?benefit from subtotal colectomy she tried rifaximin but didn't help her sx INTERIM: she has ongoing issues with bad odour she has noted abn stools with grease noted she has apptm at [facility] for 2nd opinion trulance seemed to be helping then stopped working for a week she has early satiety as well with bloating EXAM: GENERAL: The patient is well developed and nontoxic. Assessments 1. 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, may have gastroparesis as well PLAN: 1/ Will try motegrity 1 mg and can increase to 2 mg depending on response --otherwise will try cycling between trulance and linaclotide 2/ consider GE after sees [facility] 3/ check vitamin levels PFSH Medical History Environmental allergies Asthma Pulmonary emboli Pleuritic chest pain Abnormal serum angiotensin-converting enzyme level Cardiac arrhythmia Pulmonary nodules Dyspnea History of DVT (deep vein thrombosis) History of chemotherapy History of palpitations Hx of supraventricular tachycardia Narcolepsy Seasonal allergies Anxiety and depression Pacemaker Pernicious anemia B12 deficiency Active asthma POTS (postural orthostatic tachycardia syndrome) H/O brain tumor Surgical History History of repair of rectocele Hx of hysterectomy History of cardiac radiofrequency ablation (RFA) Hx of craniotomy H/O colonoscopy H/O esophagogastroduodenoscopy Hx of appendectomy Family History Mother Heart problem Maternal Grandfather Heart problem Paternal Grandmother Dementia Social History Household Members: None Are you a primary care taker to a significant other at home: No Do you presently have visiting nurse or other home services: Yes ([employer] 4.5 week) Alcohol intake: current Alcohol intake frequency: a few times a month Patient Tobacco Use Status: Never used Tobacco Telehealth Telehealth Telehealth Platform: [employer] Location of provider rendering services: practice address Location of patient: address on file Patient Identification confirmed using: Name, : Yes Telehealth method: video Patient verbally consented to treatment: Yes Patient verbally consented to billing insurance company: Yes Patient informed of any privacy concerns related to visit: Yes Minutes spent on Phone/Video with Pt.: 24 Assessment & Plan Assessment & Plan (1) Sarcoidosis: Code(s): D86.9 - Sarcoidosis, unspecified Category: Medical Plan: see above (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 - Functional intestinal disorder, unspecified Category: Medical Plan: see above Orders: Orders Zinc Today D86.9 - Sarcoidosis, unspecified, K59.9 - Functional intestinal disorder, unspecified Vitamin A Today D86.9 - Sarcoidosis, unspecified, K59.9 - Functional intestinal disorder, unspecified Vitamin B1 Today D86.9 - Sarcoidosis, unspecified, K59.9 - Functional intestinal disorder, unspecified Vitamin B12 and Folate Today D86.9 - Sarcoidosis, unspecified, K59.9 - Functional intestinal disorder, unspecified Vitamin B5 (Pantothenic Acid) Today D86.9 - Sarcoidosis, unspecified, K59.9 - Functional intestinal disorder, unspecified Vitamin B6 Today D86.9 - Sarcoidosis, unspecified, K59.9 - Functional intestinal disorder, unspecified Vitamin C Today D86.9 - Sarcoidosis, unspecified, K59.9 - Functional intestinal disorder, unspecified Vitamin D 25-OH Total Today D86.9 - Sarcoidosis, unspecified, K59.9 - Functional intestinal disorder, unspecified Vitamin E Today D86.9 - Sarcoidosis, unspecified, K59.9 - Functional intestinal disorder, unspecified Vitamin K1 Today D86.9 - Sarcoidosis, unspecified, K59.9 - Functional intestinal disorder, unspecified Ferritin Today D86.9 - Sarcoidosis, unspecified, K59.9 - Functional intestinal disorder, unspecified Magnesium Today D86.9 - Sarcoidosis, unspecified, K59.9 - Functional intestinal disorder, unspecified C Reactive Protein Today D86.9 - Sarcoidosis, unspecified, K59.9 - Functional intestinal disorder, unspecified Creatine Kinase Total Today D86.9 - Sarcoidosis, unspecified, K59.9 - Functional intestinal disorder, unspecified Fecal Fat Qualitative Today D86.9 - Sarcoidosis, unspecified, K59.9 - Functional intestinal disorder, unspecified Lactoferrin, Fecal, Quant. Today D86.9 - Sarcoidosis, unspecified, K51.50 - Left sided colitis without complications, K59.9 - Functional intestinal disorder, unspecified Tryptase Today D86.9 - Sarcoidosis, unspecified, K59.9 - Functional intestinal disorder, unspecified, R19.7 - Diarrhea, unspecified Hemoglobin A1c Today D86.9 - Sarcoidosis, unspecified, K59.9 - Functional intestinal disorder, unspecified Vitamin B3 (Niacin) Today D86.9 - Sarcoidosis, unspecified, K59.9 - Functional intestinal disorder, unspecified Erythrocyte Sedimentation Rate Today D86.9 - Sarcoidosis, unspecified, K59.9 - Functional intestinal disorder, unspecified Pancreatic Elastase-1 Today D86.9 - Sarcoidosis, unspecified, K59.9 - Functional intestinal disorder, unspecified TSH reflex Free T4 Today D86.9 - Sarcoidosis, unspecified, K59.9 - Functional intestinal disorder, unspecified Complete Blood Count Auto Diff Today D86.9 - Sarcoidosis, unspecified, K59.9 - Functional intestinal disorder, unspecified Comprehensive Met. Panel Today D86.9 - Sarcoidosis, unspecified, K59.9 - Functional intestinal disorder, unspecified, K75.81 - Nonalcoholic steatohepatitis (VILLA) Histamine Plasma Today D86.9 - Sarcoidosis, unspecified, K59.9 - Functional intestinal disorder, unspecified Medications: New prucalopride (Motegrity) 1 mg PO DAILY 30 tabs 2RF Coding Level of Care Code Est Pt Level 4 (49577) Diagnoses Sarcoidosis D86.9 Colonic inertia K59.9
--- OUTSIDE RECORDS SUMMARY | 2024-04-27 10:05 | XMS_ITS | Continuity of Care Document ---
Author Organization [facility] Address [address] [place] [address]- Care Team Providers Care Regional Sales Coordinator Name Role Phone Sisi Hernandez MD Primary Care Physician [phone] Encounter [facility] Date(s): 03/14/20 - 04/13/20 [facility] [address] [place] [address]- [facility] Allergies, Adverse Reactions, Alerts Substance Reaction Severity Status cefoxitin Cough Tightness in throat Active vancomycin Throat itching Itching of skin Active Fruit rash Allergy to fruit Active Sertraline Hydrochloride burning Act alessandra Immunizations Given and Recorded Vaccine Date Status Refusal Reason pneumococcal 23-valent vaccine 1 11/23/16 Given Not Given Vaccine Date Status Refusal Reason pneumococcal 23-valent vaccine 11/04/16 Not Given Patient Refuses pneumococcal 23-valent vaccine 2 06/07/16 Not Give n Patient Refuses pneumococcal 23-valent vaccine 06/05/15 Not Given Patient Refuses influenza virus vaccine, inactivated 04/24/17 Not Given Patient Refuses influenza virus vaccine, inactivated 04/16/17 Not Given Patient Refuses 1Early/Late Reason: Other : na 2Result Note: wants at pcp Medications albuterol CFC free 90 mcg/inh inhalation aerosol 2, puffs, Inhalation, Every 6 hours, PRN, # 2 each, Refills 11, Tot. Refills 11, Maintenance, 11/27/19 8:59:00 EDT, Aerosol, Route to Pharmacy Electronically, [id number], [facility], 155, cm, 10/07/19 12:25:00 E... Start Date: 11/27/19 Stop Date: 11/21/20 Status: Ordered Compression Stockings See Instructions, # 2 units, Refills 11, Tot. Refills 11, Maintenance, KNEE HIGH COMPRESSION STOCKINGS 15-20mm HG use daily 2 pairs every 3 months Dx: POTS syndrome R00.00 HEIGHT 154CM WEIGHT 68KG LIFETIME USE, 06/05/19 16:03:58 EST, Com... Start Date: 06/05/19 Status: Ordered cyanocobalamin 1000 mcg/ml injectable solution 1 mL = 1,000 mcg, Intramuscular, Every 30 days, # 3 mL, 5 Refills, Maintenance, 03/04/20 9:53:00 EDT, Solution, [facility], 155, cm, 10/07/19 12:25:00 EDT, Height, 63, kg, 07/01/19 19:58:00 EST, Dry Weight Start Date: 03/04/20 Status: Ordered dilTIAZem 240 mg/24 hours oral tablet, extended release 1 tablet = 240 mg, By Mouth, Daily, FURTHER REFILLS BY INFORMATION TECHNOLOGY ADVISOR, # 90 tablet, 0 Refills, Maintenance, 11/27/19 8:57:00 EDT, ER Tablet, [facility], 155, cm, 10/07/19 12:25:00 EDT, Height, 63, kg, 07/01/19 19:58:00 EST, Dry Weight Start Date: 11/27/19 Status: Ordered Freestyle Lancets See Instructions, # 200 each, Refills 5, Tot. Refills 5, Maintenance, dx: e16.2 use three times perday hypoglycemia, 03/04/20 12:29:00 EDT, Supply, 155, cm, 10/07/19 12:25:00 EDT, Height, 63, kg, 07/01/19 19:58:00 EST, Dry Weight Start Date: 03/04/20 Stop Date: 08/31/20 Status: Ordered Freestyle Lite Monitor See Instructions, # 1 Unknown, Maintenance, dx:e16.2 hypoglycemia use three times per day, 03/04/2012:28:00 EDT, Compound, 155, cm, 10/07/19 12:25:00 EDT, Height, 63, kg, 07/01/19 19:58:00 EST, Dry Weight Start Date: 03/04/20 Status: Ordered Freestyle Test Strips See Instructions, # 200 each, Refills 5, Tot. Refills 5, Maintenance, dx: e16.2 use three times perday hypoglycemia, 03/04/20 12:29:00 EDT, Supply, 155, cm, 10/07/19 12:25:00 EDT, Height, 63, kg, 07/01/19 19:58:00 EST, Dry Weight Start Date: 03/04/20 Stop Date: 08/31/20 Status: Ordered LORazepam 0.5 mg oral tablet See Instructions, TAKE 1 TABLET BY MOUTH TWO TIMES A DAY NEEDED FOR ANXIETY, # 28 tablet, 2 Refills, Maintenance, 11/02/19 10:43:00 EDT, [facility], 155, cm, 10/07/19 12:25:00 EDT, Height, 63, kg, 07/01/19 19:58:00 EST, Dry Weight Start Date: 11/02/19 Status: Ordered Metoprolol Tartrate 50 mg oral tablet 0 Refills, Maintenance, 03/04/20 9:58:00 EDT Start Date: 03/04/20 Status: Ordered nitroglycerin 0.4 mg sublingual tablet 1 tablet = 0.4 mg, Sublingual, Every 5 minutes, PRN for chest pain, # 100 tablet, 0 Refills, Maintenance, 12/10/17 3:58:08 EDT, Tablet Start Date: 12/10/17 Status: Ordered ProAir HFA 90 mcg/inh inhalation aerosol with adapter 2, puffs, Inhalation, Every 4 hours, PRN, NO GENERIC SUBSTITUTION BRAND NAME MEDICALLY NECESSARY, #1 each, Refills 4, Tot. Refills 4, Maintenance, 09/12/18 15:30:53 EST, Aerosol, Route to Pharmacy Electronically, [id number]... Start Date: 09/12/18 Stop Date: 02/09/19 Status: Ordered syringe and needles syringe and needles, See Instructions, # 12 Unknown, Refills 3, Tot. Refills 3, Maintenance, syringe 3cc needles 25 g X 5/8 inches for use with b12, 08/07/20 9:54:00 EDT, Compound, 155, cm, 10/07/19 12:25:00 EDT, Height, 63, kg, 07/01/19 19:58:00 EST... Start Date: 03/04/20 Status: Ordered Problem List Condition Effective Dates Status Health Status Inform ant Abdominal pain(Confirmed) Active Adjustment disorder with mix ed anxiety and depressed mood(Confirmed) 2015 Active Anxiety(Confirmed) Active Asthma(Confirmed) Active Back pain(Confirmed) Active Breast lump(Confirmed) Active Chronic insomnia(Confirmed) Active B12 deficiency(Confirmed) Active Deep vein thrombosis(Confirmed) Active Right leg DVT(Confirmed) Active GERD (gastroesophageal reflu x disease)(Confirmed) Active Hypoglycemia, unspecified(Confirmed) Active IBS (irritable bowel syndrome)(Confirmed) 01/23/16 Active Near syncope(Confirmed) Active Bilateral leg pain(Confirmed) Active *[facility]- [phone]/Health long term, active care coordination(Confirmed) Active POTS (postural orthostatic t achycardia syndrome)(Confirmed) Active Medulloblastoma(Confirmed) Active RUQ pain(Confirmed) Active Social History Social History Type Response Smoking Status Never smoker; Tobacc o user in household: No entered on: 04/11/16 Sex
--- OUTSIDE RECORDS SUMMARY | 2024-04-27 10:06 | XMS_ITS | Continuity of Care Document ---
Author Organization [facility] Address [address] [place] [address]- Care Team Providers Care Physical Geographer Name Role Phone Mary KEATING, Sisi Almanza Primary Care Physician Encounter [facility] Date(s): 09/26/22 - 10/26/22 [facility] [address] [place], [place] [address] Allergies, Adverse Reactions, Alerts Substance Reaction Severity Status cefoxitin Cough Tightness in throat Active vancomycin Throat itching Itching of skin Active Fruit 1 rash Allergy to fruit Active Sertraline Hydrochloride skin burning burning Active 1not specific Immunizations Given and Recorded Vaccine Date Status Refusal Reason influenza virus vaccine, inactivated 06/04/21 Adarsh rded influenza virus vaccine, inactivated 05/21/20 Adarsh rded influenza virus vaccine, inactivated 05/23/18 Adarsh rded SARS-CoV-2 (COVID-19) mRNA-1273 vaccine 10/14/20 R ecorded SARS-CoV-2 (COVID-19) mRNA-1273 vaccine 09/05/20 R ecorded tetanus/diphtheria/pertussis, acel(Tdap) 03/10/18 Recorded pneumococcal 23-valent vaccine 1 11/23/16 Given Not Given Vaccine Date Status Refusal Reason influenza virus vaccine, inactivated 04/24/17 Not Given Patient Refuses influenza virus vaccine, inactivated 04/16/17 Not Given Patient Refuses pneumococcal 23-valent vaccine 11/04/16 Not Given Patient Refuses pneumococcal 23-valent vaccine 2 06/07/16 Not Give n Patient Refuses pneumococcal 23-valent vaccine 06/05/15 Not Given Patient Refuses 1Early/Late Reason: Other : na 2Result Note: wants at pcp Medications albuterol CFC free 90 mcg/inh inhalation aerosol 2, puffs, Inhalation, Every 6 hours, PRN, # 2 each, Refills 11, Tot. Refills 11, Maintenance, 02/15/22 13:12:00 EDT, Aerosol, Route to Pharmacy Electronically, [id number], [facility], ONLY ALBUTEROL HFA, CANCEL... Start Date: 02/15/22 Stop Date: 02/10/23 Status: Ordered Colace sodium 100 mg oral capsule 100 mg, 1, capsule, By Mouth, 2 times a day, PRN, # 30 capsule, Refills 0, Tot. Refills 0, Maintenance, for constipation, 07/31/22 11:03:00 EST, Route to Pharmacy Electronically, [facility], Partial fill upon patient request if the presc... Start Date: 07/31/22 Status: Ordered Compression Stockings See Instructions, # 2 units, Refills 11, Tot. Refills 11, Maintenance, KNEE HIGH COMPRESSION STOCKINGS 15-20mm HG use daily 2 pairs every 3 months Dx: POTS syndrome R00.00 HEIGHT 154CM WEIGHT 68KG LIFETIME USE, 06/05/19 16:03:58 EST, Com... Start Date: 06/05/19 Status: Ordered Corlanor 5 mg oral tablet TAKE 1 TABLET BY MOUTH TWO TIMES A DAY Start Date: 09/27/22 Status: Ordered Corlanor 5 mg oral tablet 1 tablet = 5 mg, TAKE 1 TABLET BY MOUTH TWO TIMES A DAY Start Date: 09/27/22 Status: Ordered cyanocobalamin 1000 mcg/ml injectable solution 1 mL = 1,000 mcg, Intramuscular, Every 30 days, # 3 mL, 6 Refills, Maintenance, 09/04/22 8:50:00 EST, Solution, [facility], 155, cm, 08/14/22 13:52:00 EST, Height, 68.1, kg, 08/14/22 13:52:00 EST, Dry Weight Start Date: 09/04/22 Status: Ordered dextroamphetamine 10 mg oral capsule, extended release See Instructions, start 1 capsule By Mouth Daily in AM. Take second capsule if needed, # 60 capsule, 0 Refills, Maintenance, 10/17/22 14:31:00 EDT, ER Capsule, [facility], Partial fill upon patient request if the prescription is for a sc... Start Date: 10/17/22 Status: Ordered esomeprazole 40 mg oral enteric coated capsule TAKE 1 CAPSULE BY MOUTH EVERY DAY Start Date: 07/12/22 Status: Ordered Flovent HFA 220 mcg/inh inhalation aerosol 2 puffs, Inhalation, 2 times a day, new dosage, # 12 Gm, 0 Refills, Maintenance, 02/15/22 13:10:00 EDT, Aerosol, [facility], new dosage, 155, cm, 12/08/21 10:46:00 EDT, Height, 68.5, kg, 06/03/20 13:18:00 EST, Dry Weight Start Date: 02/15/22 Status: Ordered Freestyle Lancets See Instructions, # [...] Date: 03/04/20 Stop Date: 08/31/20 Status: Ordered ibuprofen 800 mg oral tablet 800 mg, 1, tablet, By Mouth, Every 8 hours, # 30 tablet, Refills 0, Tot. Refills 0, Maintenance, 07/31/22 11:03:00 EST, Route to Pharmacy Electronically, [facility], Partial fill upon patient request if the prescription is for a schedule... Start Date: 07/31/22 Status: Ordered LORazepam 0.5 mg oral tablet See Instructions, TAKE 1 TABLET BY MOUTH TWO TIMES A DAY NEEDED FOR ANXIETY, # 28 tablet, 2 Refills, Maintenance, 06/06/22 10:45:00 EST, [facility], 155, cm, 04/06/22 14:56:00 EDT, Height, 67.5, kg, 04/06/22 14:56:00 EDT, Dry Weight Start Date: 06/06/22 Status: Ordered Metoprolol Tartrate 50 mg oral tablet 0 Refills, Maintenance, 03/04/20 9:58:00 EDT Start Date: 03/04/20 Status: Ordered MiraLax oral powder for reconstitution = 17 Gm, By Mouth, Daily, dissolve in water before taking, # 255 Gm, 0 Refills, Maintenance, 08/01/22 6:06:00 EST, REC Powder, [facility], Partial fill upon patient request if the prescription is for a schedule II opioid drug., 17 Gm By... Start Date: 08/01/22 Status: Ordered nitroglycerin 0.4 mg sublingual tablet 1 tablet = 0.4 mg, Sublingual, Every 5 minutes, PRN for chest pain, # 100 tablet, 0 Refills, Maintenance, 12/10/17 3:58:08 EDT, Tablet Start Date: 12/10/17 Status: Ordered senna - oral tablet 2 tablet, By Mouth, Daily at bedtime, PRN for constipation, # 80 tablet, 0 Refills, Maintenance, 08/01/22 6:06:00 EST, Tablet, [facility], Partial fill upon patient request if the prescription is for a schedule II opioid drug., 155, cm,... Start Date: 08/01/22 Status: Ordered Symbicort 160mcg/4.5mcg Inhaler 2, puffs, Inhalation, 2 times a day, # 3 each, Refills 5, Tot. Refills 5, Maintenance, 09/27/22 12:00:00 EST, Aerosol, Route to Pharmacy Electronically, [id number], [facility], replaces flovent inhaler, 155, cm,... Start Date: 09/27/22 Status: Ordered syringe and needles syringe and needles, See Instructions, # 12 Unknown, Refills 3, Tot. Refills 3, Maintenance, syringe 3cc needles 25 g X 5/8 inches for use with b12, 03/04/20 9:54:00 EDT, Compound, 155, cm, 10/07/19 12:25:00 EDT, Height, 63, kg, 07/01/19 19:58:00 EST... Start Date: 03/04/20 Status: Ordered Tylenol 325 mg oral tablet 975 mg, 3, tablet, By Mouth, Every 6 hours, PRN, # 50 tablet, Refills 0, Tot. Refills 0, Maintenance, for pain, 07/31/22 11:03:00 EST, Route to Pharmacy Electronically, [facility], Partial fill upon patient request if the prescription is... Start Date: 07/31/22 Status: Ordered Verapamil 0 Refills, Maintenance, 12/08/21 10:49:00 EDT, Partial fill upon patient request if the prescription is for a schedule II opioid drug. Start Date: 12/08/21 Status: Ordered verapamil 240 mg/12 hours oral tablet, extended release TAKE 1 TABLET BY MOUTH DAILY. Start Date: 09/27/22 Status: Ordered Vitamin D3 1000 intl units oral capsule 1 capsule = 25 mcg, By Mouth, Daily, # 100 capsule, 3 Refills, Maintenance, 06/05/22 14:27:00 EST, Capsule, [facility], Partial fill upon patient request if the prescription is for a schedule II opioid drug., 155, cm, 04/06/22 14:56:00 E... Start Date: 06/05/22 Status: Ordered Problem List Condition Confirmation Course Effective Dates Status H ealth Status Informant Abdominal pain Confirmed Active Adjustment disorder with mixed anxiety and depressed mood Confirmed 2016 Active Anxiety Confirmed Active Asthma Confirmed Active Back pain Confirmed Active Breast lump Confirmed Active Narcolepsy and cataplexy Confirmed Active Chronic insomnia Confirmed Active B12 deficiency Confirmed Active Cognitive disorder Confirmed Active Somnolence, daytime Confirmed Active Esophagitis Confirmed Active Fatigue Confirmed Active GERD (gastroesophageal reflux disease) Confirmed Active Hemoptysis Confirmed Active Hypoglycemia, unspecified Confirmed Active IBS (irritable bowel syndrome) Confirmed 01/23/16 Active Memory change Confirmed Active Near syncope Confirmed Active Bilateral leg pain Confirmed Active *[facility]N/CCA/CC-Matias Menas- [phone]/Health long-term, active care coordination Confirmed Active POTS (postural orthostatic tachycardia syndrome) Confirmed Active Medulloblastoma Confirmed Active RUQ pain Confirmed Active Social History Social History Type Response Smoking Status Never smoker; Tobacc o user in household: No entered on: 04/11/16 Sex Patient Care team information Care Team Personnel Name: Vidhya Grace RN Position: [facility] RN Member Role: Primary Care Nurse Name: Sisi Hernandez MD Position: [facility] Primary Care Physician Member Role: PCP Address: Address: [address] [place] [address] [facility] Name: Lizzette To RN Position: [facility] RN Member Role: Primary Care Nurse Name: Karolina Adkins MD Position: [facility] Physician -Physician Practices Member Role: Lifetime Consulting Physician Address: Address: [address] [place] [address] [facility] [place], [place] [facility] Name: Isadora Godfrey RN Position: [facility] RN Member Role: Primary Care Nurse Name: Rossy Rowe RN Position: [facility] SN RN Member Role: Primary Care Nurse Name: Cindi Hayward Position: [facility] RN Member Role: Primary Care Nurse Name: Bela Mcmahon RN Position: [facility] Hospital Clay Grinder Member Role: Primary Care Nurse Name: Nicole Hernandez RN Position: [facility] RN Member Role: Primary Care Nurse Name: Zac Castillo RN Position: [facility] ED RN W/OE and Tasks Member Role: Primary Care Nurse Name: Jeanne Grande RN Position: [facility] RN Member Role: Primary Care Nurse Care Team Related Persons Name: KATHRYN TURNERY Address: home [address] [place], [place] Name: BEAR [employer]URNER SEC[employer]ARY Address: home [address] [place] [address] Name: ISATU ECKERT Address: [place] [address] Name: ISAAC VERDE PRIMARY Address: [address] [address] Name: ADRY DURANT Name: PANCHO JEROME Address: [place] [address]
--- OUTSIDE RECORDS SUMMARY | 2024-04-27 10:06 | XMS_ITS | Continuity of Care Document ---
Author Organization [facility] Address [address] [place] [address]- Care Team Providers Care Director Furniture Name Role Phone Sisi Hernandez MD Primary Care Physician Encounter [facility] Date(s): 02/06/24 - 02/13/24 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 Asthma(Discharge Diagnosis) - 02/06/24 B12 deficiency(Discharge Diagnosis) - 02/06/24 Attending Physician: Sisi Hernandez MD Allergies, Adverse Reactions, Alerts Substance Reaction Severity Status Fruit 1 rash Allergy to fruit Active Sertraline Hydrochloride skin burning burning Active cefoxitin Cough Tightness in throat Active vancomycin Throat itching Itching of skin Active 1not specific Immunizations Given and Recorded Vaccine Date Status Refusal Reason influenza virus vaccine, inactivated 05/16/23 Adarsh rded influenza virus vaccine, inactivated 06/04/21 Adarsh rded influenza virus vaccine, inactivated 05/21/20 Adarsh rded influenza virus vaccine, inactivated 05/23/18 Adarsh rded SARS-CoV-2 (COVID-19) mRNA-1273 vaccine 10/14/20 R ecorded SARS-CoV-2 (COVID-19) mRNA-1273 vaccine 09/05/20 R ecorded tetanus/diphtheria/pertussis, acel(Tdap) 03/10/18 Recorded pneumococcal 23-valent vaccine 1 11/23/16 Given 1Early/Late Reason: Other : na Medications acetaminophen-codeine 300 mg-30 mg oral tablet See Instructions, TAKE 2 TABLETS BY MOUTH THREE TIMES A DAY NEEDED FOR PAIN. (LIMIT 4000MG OF TYLENOL/APAP/ACETAMINOPHEN), # 30 tablet, Refills 1, Tot. Refills 1, Maintenance, 09/11/23 15:45:00 EST, Instructions Replace Required Details, Route to P... Start Date: 09/11/23 Status: Ordered Adderall 20 mg oral tablet 1 tablet = 20 mg, By Mouth, 2 times a day, 0 Refills, Maintenance, 02/04/24 15:30:00 EDT, Partial fill upon patient request if the prescription is for a schedule II opioid drug. Start Date: 02/04/24 Status: Ordered albuterol CFC free 90 mcg/inh inhalation aerosol 2, puffs, Inhalation, Every 6 hours, PRN, # 2 each, Refills 11, Tot. Refills 11, Maintenance, 02/15/22 13:12:00 EDT, Aerosol, Route to Pharmacy Electronically, [id number], [facility], ONLY ALBUTEROL HFA, CANCEL... Start Date: 02/15/22 Stop Date: 02/10/23 Status: Ordered Colace sodium 100 mg oral capsule 100 mg, 1, capsule, By Mouth, 2 times a day, PRN, # 180 capsule, Refills 3, Tot. Refills 3, Maintenance, for constipation, 08/09/23 14:49:00 EST, Route to Pharmacy Electronically, [facility], Partial fill upon patient request if the pres... Start Date: 08/09/23 Status: Ordered Compression Stockings See Instructions, # 2 units, Refills 11, Tot. Refills 11, Maintenance, KNEE HIGH COMPRESSION STOCKINGS 15-20mm HG use daily 2 pairs every 3 months Dx: POTS syndrome R00.00 HEIGHT 154CM WEIGHT 68KG LIFETIME USE, 06/05/19 16:03:58 EST, Com... Start Date: 06/05/19 Status: Ordered cyanocobalamin 1000 mcg/ml injectable solution 1 mL = 1,000 mcg, Intramuscular, Every 14 days, # 7 mL, 11 Refills, Maintenance, 02/06/24 12:13:00 EDT, Solution, [facility], dose change, 155, cm, 02/06/24 11:49:00 EDT, Height, 71, kg, 02/06/24 11:49:00 EDT, Dry Weight Start Date: 02/06/24 Status: Ordered esomeprazole 40 mg oral enteric coated capsule TAKE 1 CAPSULE BY MOUTH EVERY DAY Start Date: 07/12/22 Status: Ordered Freestyle Lancets See Instructions, # [...] 07/31/22 11:03:00 EST, Route to Pharmacy Electronically, [facility], Partial fill upon patient request if the prescription is for a schedule... Start Date: 07/31/22 Status: Ordered ketoconazole 1% topical shampoo See Instructions, Apply 5 to 10 mL to wet scalp, lather, leave on 3 to 5 minutes, and rinse; apply twice weekly for 2 to 4 weeks., # 200 mL, 5 Refills, Maintenance, 11/22/23 15:46:00 EDT, [facility], Partial fill upon patient request if... Start Date: 11/22/23 Status: Ordered ketoconazole 2% topical shampoo 1 application, Topically, Once, Apply 5 to 10 mL to wet scalp, lather, leave on 3 to 5 minutes, andrinse; apply weekly for 2 to 4 weeks., # 120 mL, 4 Refills, Soft Stop, 11/25/23 12:40:00 EDT, Shampoo, [facility], Partial fill upon pat... Start Date: 11/25/23 Status: Ordered LORazepam 0.5 mg oral tablet See Instructions, TAKE 1 TABLET BY MOUTH TWO TIMES A DAY NEEDED FOR ANXIETY, # 28 tablet, 2 Refills, Maintenance, 02/06/24 12:19:00 EDT, [facility] 3, 155, cm, 02/06/24 11:49:00 EDT, Height, 71, kg, 02/06/24 11:49:00 EDT, Dry Weight Start Date: 02/06/24 Status: Ordered Metoprolol Tartrate 50 mg oral tablet 0 Refills, Maintenance, 03/04/20 9:58:00 EDT Start Date: 03/04/20 Status: Ordered nitroglycerin 0.4 mg sublingual tablet 1 tablet = 0.4 mg, Sublingual, Every 5 minutes, PRN for chest pain, # 100 tablet, 0 Refills, Maintenance, 12/10/17 3:58:08 EDT, Tablet Start Date: 12/10/17 Status: Ordered PEG-3350 with Electrolytes Lemon (Eqv-NuLYTELY) oral powder for reconstitution MIX AND DRINK 240 ML BY MOUTH EVERY 10 MINUTES UNTIL FECAL EFFLUENT IS CLEAR Start Date: 05/15/23 Status: Ordered senna - oral tablet 2 tablet, By Mouth, Daily at bedtime, PRN for constipation, # 80 tablet, 0 Refills, Maintenance, 08/01/22 6:06:00 EST, Tablet, [facility], Partial fill upon patient request if the prescription is for a schedule II opioid drug., 155, cm,... Start Date: 08/01/22 Status: Ordered Symbicort 160mcg/4.5mcg Inhaler 2, puffs, Inhalation, 2 times a day, # 3 each, Refills 5, Tot. Refills 5, Maintenance, 02/06/24 12:14:00 EDT, Aerosol, Route to Pharmacy Electronically, [id number], [facility], replaces flovent inhaler, 155, cm,... Start Date: 02/06/24 Status: Ordered syringe and needles syringe and [...] 07/31/22 11:03:00 EST, Route to Pharmacy Electronically, [facility], Partial fill upon patient request if the prescription is... Start Date: 07/31/22 Status: Ordered Tylenol 8 Hour Caplet = 1,300 mg, By Mouth, Every 8 hours, 0 Refills, Maintenance, 10/09/23 14:19:00 EDT, Partial fill upon patient request if the prescription is for a schedule II opioid drug. Start Date: 10/09/23 Status: Ordered verapamil 240 mg/12 hours oral tablet, extended release TAKE 1 TABLET BY MOUTH DAILY. Start Date: 02/05/23 Status: Ordered Vitamin C 250 mg oral tablet, chewable 1 tablet = 250 mg, Chew, 2 times a day, # 180 tablet, 3 Refills, Maintenance, 08/14/23 13:38:00 EST, Chew Tablet, [facility], Partial fill upon patient request if the prescription is for a schedule II opioid drug., 155, cm, 08/14/23 13:0... Start Date: 08/14/23 Status: Ordered Vitamin D3 50,000 intl units oral capsule 1 capsule = 1,250 mcg, By Mouth, Every week, # 13 capsule, 1 Refills, Maintenance, 05/17/23 17:07:00 EDT, Capsule, [facility], Partial fill upon patient request if the prescription is for a schedule II opioid drug., 155, cm, 05/15/23 13:... Start Date: 05/17/23 Status: Ordered Vyvanse 10 mg oral capsule See Instructions, start 1 capsule By Mouth Daily in AM. Increase to 2 capsules as needed (Name brand only because generic not available), # 60 capsule, 0 Refills, Maintenance, 11/01/23 14:07:00 EDT, Capsule, [facility], Partial fill u... Start Date: 11/01/23 Status: Ordered Problem List Condition Confirmation Course Effective Dates Status H ealth Status Informant Abdominal pain Confirmed Active Adjustment disorder with mixed anxiety and depressed mood Confirmed 2015 Active Anxiety Confirmed Active Asthma Confirmed Active Breast lump Confirmed Active Narcolepsy and cataplexy Confirmed Active Chronic insomnia Confirmed Active B12 deficiency Confirmed Active Cognitive disorder Confirmed Active Somnolence, daytime Confirmed Active Spell of change in speech Confirmed Active Esophagitis Confirmed Active Fatigue Confirmed Active GERD (gastroesophageal reflux disease) Confirmed Active Hypoglycemia, unspecified Confirmed Active Dermatitis Confirmed Active IBS (irritable bowel syndrome) Confirmed 01/23/16 Active Memory change Confirmed Active *[facility]- [phone]/Health skilled nursing, active care coordination Confirmed Active POTS (postural orthostatic tachycardia syndrome) Confirmed Active 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 Diagnosis Diagnosis Type Effective Dates Health Status Clinical Service Informant IBS (irritable bowel syndrome) Discharge Diagnosis 02/06/24 Tachy-sharmin syndrome Discharge Diagnosis 02/06/24 Asthma Discharge Diagnosis 02/06/24 B12 deficiency Discharge Diagnosis 02/06/24 Vital Signs Most recent to oldest [Reference Range]: 1 Height 155 cm (02/06/24 11:49 AM) Weight 71 kg (02/06/24 11:49 AM) Oxygen Saturation [94-100 %] 99 % (02/06/24 11:49 AM) Pulse Rate [55-90 bpm] 81 bpm (02/06/24 11:49 AM) Body Mass Index [18.5-24.99 kg/m2] 29.55 kg/m2 *H* (02/06/24 11:49 AM) Blood Pressure [90-138/55-84 mm Hg] 103/ 69mm Hg (02/06/24 11:49 AM) Temperature [96.8-100.4 DegF] 99.2 DegF (02/06/24 11:49 AM) Mode of Delivery (Oxygen) Room air (02/06/24 11:49 AM) Blood pressure sites Arm, left (02/06/24 11:49 AM) Temperature Route Temporal (02/06/24 11:49 AM) Dry Weight 71 kg (02/06/24 11:49 AM) Weight Obtained Via Standing scale (02/06/24 11:49 AM) Dry Weight Obtained Via Standing scale (02/06/24 11:49 AM) Social History Social History Type Response Smoking Status Never smoker; Tobacc o user in household: No entered on: 04/11/16 Sex Note * Ronna Nettles: PERFORM Event Display: Patient Education/Instruction Authored Date: Ambulatory Adult Visit Summary [facility] [address] [place] [address] Name: ANSELMO TURNER : 1990?? Visit: 02/06/2024 11:40?? Ambulatory Visit Instructions ?? Your Care Team Primary Care Provider Sisi Hernandez MD? This Visit Provider Sisi Hernandez MD Your Diagnosis Leg swelling Fatigue Vitamin D deficiency Vitals Signs Temperature: 99.2 DegF Height: 155 cm Pulse Rate: 81 bpm Weight: 71 kg Systolic Blood Pressure: 103 mm Hg Body Mass Index:??29.55 kg/m2??High Diastolic Blood Pressure: 69 mm Hg Body surface area: 1.75 Oxygen Saturation: 99 % ?? What to do next Scheduled Follow-Up Appointments Saturday 2:00 PM EDT ?? With: Edel Humphrey Where: [facility] [address] [place] [address]- Status: Pending Future Orders B Type Natriuretic Peptide (BNP) - Routine, Once, 02/06/24 12:25:00 EDT, Order for Today, [facility], Blood?? Comprehensive Metabolic Panel - Routine, Once, 02/06/24 12:26:00 EDT, Order for Today, [facility], Blood?? Magnesium Level - Routine, Once, 02/06/24 12:26:00 EDT, Order for Today, [facility], Blood?? Thyroid Panel - Routine, Once, 02/06/24 12:26:00 EDT, Order for Today, [facility], Blood?? Vitamin D 25 Hydroxy Level - Routine, Once, 02/06/24 12:27:00 EDT, Order for Today, [facility], Blood?? RESHMA Screen - Routine, Once, 02/06/24 12:28:00 EDT, Order for Today, [facility], Blood?? Anti DNA Ab - Routine, Once, 02/06/24 12:28:00 EDT, Order for Today, [facility], Blood?? Medications The list below reflects the information in our records and provided by you today along with any changes made during this visit. Please continue your medications until treatment is completed or stopped by your provider. If this is different from the information you have or there are other questions,please contact the prescribing provider. What How Much When Instructions New Budesonide-Formoterol (Symbicort 160mcg/ 4.5mcg Inhaler) 2 puff(s) Inhalation Twice a day Refills: 5 Pickup at [facility] 3 New Cyanocobalamin (cyanocobalamin 1000 mcg/ ml injectable solution) 1 Milliliter Intramuscular Every 14 days Refills: 11 Pickup at [facility] 3 Unchanged Acetaminophen (Tylenol 325 mg oral tablet) 3 tab(s) Oral Every 6 hours as needed for for pain Unchanged Acetaminophen (Tylenol 8 Hour Caplet) 1,300 Milligram Oral Every 8 hours Unchanged Acetaminophen/ Codeine (acetaminophen-codeine 300 mg-30 mg oral tablet) See instructions TAKE 2 TABLETS BY MOUTH THREE TIMES A DAY NEEDED FOR PAIN. (LIMIT 4000MG OF TYLENOL/ APAP/ ACETAMINOPHEN) ?? Unchanged Albuterol (albuterol CFC free 90 mcg/ inh inhalation aerosol) 2 puff(s) Inhalation Every 6 hours as needed for for wheezing Duration: 30 Days Unchanged Amphetamine-Dextroamphetamine (Adderall 20 mg oral tablet) 1 tab(s) Oral Twice a day Unchanged Ascorbic Acid (Vitamin C 250 mg oral tablet, chewable) 1 tab(s) Chew Twice a day Unchanged Cholecalciferol (Vitamin D3 50,000 intl units oral capsule) 1 capsule Oral Every week Unchanged Docusate (Colace sodium 100 mg oral capsule) 1 capsule Oral Twice a day as needed for for constipation Unchanged Durable Medical Equipment (Compression Stockings) See instructions KNEE HIGH COMPRESSION STOCKINGS ?? 15-20mm HG use daily ?? 2 pairs every 3 months ?? Dx: POTS syndrome R00.00 HEIGHT 154CM WEIGHT 68KG LIFETIME USE ?? Unchanged Durable Medical Equipment (Freestyle Lancets) See instructions Duration: 30 Days dx: e16.2 use three times per day hypoglycemia ?? Unchanged Durable Medical Equipment (Freestyle Lite Monitor) See instructions dx:e16.2 hypoglycemia use three times per day ?? Unchanged Durable Medical Equipment (Freestyle Test Strips) See instructions Duration: 30 Days dx: e16.2 use three times per day hypoglycemia ?? Unchanged Durable Medical Equipment (syringe and needles) See instructions syringe 3cc needles 25 g X 5/ 8 inches for use with b12 ?? Unchanged Esomeprazole (esomeprazole 40 mg oral enteric coated capsule) TAKE 1 CAPSULE BY MOUTH EVERY DAY ?? Unchanged Ibuprofen (ibuprofen 800 mg oral tablet) 1 tab(s) Oral Every 8 hours Unchanged Ketoconazole (ketoconazole 2% topical shampoo) 1 rosa Topically Once Apply 5 to 10 mL to wet scalp, lather, leave on 3 to 5 minutes, and rinse; apply ??weekly for 2 to 4 weeks. ?? Unchanged Ketoconazole Topical (ketoconazole 1% topical shampoo) See instructions Apply 5 to 10 mL to wet scalp, lather, leave on 3 to 5 minutes, and rinse; apply twice weekly for 2to 4 weeks. ?? Unchanged lisdexamfetamine (Vyvanse 10 mg oral capsule) See instructions start 1 capsule By Mouth Daily in AM. Increase to 2 capsules as needed ?? (Name brand only because generic not available) ?? Unchanged Lorazepam (LORazepam 0.5 mg oral tablet) See instructions TAKE 1 TABLET BY MOUTH TWO TIMES A DAY NEEDED FOR ANXIETY ?? Pickup at [facility] 3 Unchanged Metoprolol (Metoprolol Tartrate 50 mg oral tablet) Unchanged Nitroglycerin (nitroglycerin 0.4 mg sublingual tablet) 1 tab(s) Sublingual Every 5 minutes as needed for for chest pain Unchanged PEG Electrolyte Solution (PEG-3350 with Electrolytes Lemon (Eqv- NuLYTELY) oral powder forreconstitution) MIX AND DRINK 240 ML BY MOUTH EVERY 10 MINUTES UNTIL FECAL EFFLUENT IS CLEAR ?? Unchanged Senna (senna - oral tablet) 2 tab(s) Oral Daily at Bedtime as needed for for constipation Unchanged Verapamil (verapamil 240 mg/ 12 hours oral tablet, extended release) TAKE 1 TABLET BY MOUTH DAILY. ?? Unchanged Cholecalciferol (Vitamin D3 1000 intl units oral capsule) 1 capsule Oral Daily Contact prescribing physician if questions or concerns ?? Pharmacy Information [facility] 3: [address] [place], [place] [id number] [phone] ?? What How Much When Comments Stop Taking Fluticasone (Flovent HFA 220 mcg/ inh inhalation aerosol) 2 puff(s) Inhalation Twice a day new dosage ?? Test Performed Below is a partial list of the tests performed during your Visit. You may have had other tests and procedures not included in this list. Please discuss all test results with your provider. RESHMA Screen?-- Results Pending -- Anti DNA Ab?-- Results Pending -- BNP?-- Results Pending -- Comprehensive Metabolic Panel?-- Results Pending -- Magnesium Level?-- Results Pending -- Thyroid Panel?-- Results Pending -- Vitamin D 25 Hydroxy Level?-- Results Pending -- You will be contacted within 72 hours with your results. Medications and Immunizations Administered Medications Given During Visit No medications given during this visit.?? Allergies (NKA means No Known Allergies) Fruit??(rash, Allergy to fruit) Sertraline Hydrochloride??(skin burning, burning) cefoxitin??(Cough, Tightness in throat) vancomycin??(Throat itching, Itching of skin) Common Emergency Awareness Tips IS IT A STROKE? Act FAST and Check for these signs: FACE Does the face look uneven? ARM Does one arm drift down? SPEECH Does their speech sound strange? TIME Call at any sign of stroke ?? Heart Attack Signs Chest discomfort: Most heart attacks involve discomfort in the center of the chest and lasts more than a few minutes, or goes away and comes back. It can feel like uncomfortable pressure, squeezing, fullness or pain. Discomfort in upper body: Symptoms can include pain or discomfort in one or both arms, back, neck, jaw or stomach. Shortness of breath: With or without discomfort. Other signs: Breaking out in a cold sweat, nausea, or lightheaded. Remember, MINUTES DO MATTER. If you experience any of these heart attack warning signs, call to get immediate medical attention! ?? Smoking can increase your chances of developing chronic health problems and can cause harmful effects to other family members in your house. If you smoke, you are strongly encouraged to quit. Please call [facility] [employer] Link at [phone] or [phone] ([phone]) or log in to [email or web address] for referrals to smoking cessation programs. ?? The National Suicide Prevention Hotline is available 18/02 if you or someone you know needs to find a reason to keep living. By calling 8-667-922-Market76 (9888) you'll be connected to a skilled, trained counselor at a crisis center in your area. [facility] [employer] Portal You can view and manage your care through the patient portal or by using a health care rosa of your choosing. [employer] is a website that allows you to securely view your medical information including your hospital discharge summary, office visit summaries, medications and follow-up visits. You can also request appointments, renew medications, and request access to your medical information using a health care rosa of your choosing, or just ask a question. You can enroll at [email or web address] or register during your next office visit. [facility], in keeping with [facility] guidance, no longer requires face masks for staff, patientsor visitors in most situations. Similiar to time spent indoors at other locations, there is the chance that you were exposed to repiratory viruses during your time with us (such as flu or COVID-19). If you develop symptoms concerning for a viral respiratory infection, please seek testing (and treatment if indicated) from your medical provider or home test kit. ?? Disclaimer: The information provided is of a general nature and is intended to be used in conjunction with the recommendations and advice of your health care practitioner. Every effort has been made to ensure that the information provided is accurate and complete at the time it is provided to you however, as your needs change, or, as new information becomes available, different or additional instructions may be required. ?? If you have questions, please consult with your primary care provider or pharmacist, as appropriate. This information is not intended to serve as substitution for assessment and evaluation by a qualified health care provider. If you do not have a primary care provider, you may find a [facility] provider by calling [facility] [employer] [facility] at [phone]. Patient Care team information Care Team Personnel Name: Vidhya Grace RN Position: [facility] RN Member Role: Primary Care Nurse Name: Sisi Hernandez MD Position: [facility] Physician - Primary Care Member Role: PCP Address: Address: [address] [place] [address] Name: Lizzette To RN Position: [facility] SN RN Member Role: Primary Care Nurse Name: Karolina Adkins MD Position: [facility] Physician - Primary Care Member Role: [employer] Consulting Physician Address: Address: [address] [place] [address] [facility] [address] Name: Isadora Godfrey RN Position: [facility] RN Member Role: Primary Care Nurse Name: Rossy Rowe RN Position: [facility] SN RN Member Role: Primary Care Nurse Name: Cindi Hayward RN Position: [facility] RN Member Role: Primary Care Nurse Name: Bela Mcmahon RN Position: [facility] Hospital Manager Film Member Role: Primary Care Nurse Name: Nicole Hernandez RN Position: [facility] RN Member Role: Primary Care Nurse Name: Zac Castillo RN Position: [facility] ED RN W/OE and Tasks Member Role: Primary Care Nurse Name: Jeanne Grande RN Position: [facility] RN Member Role: Primary Care Nurse Care Team Related Persons Name: KATHRYN TURNERY Address: home [address] [place] [address] Name: BEAR TURNER SECONDARY Address: [address] [place] [address] Name: ISATU ECKERT Address: [place] [address] Name: ISAAC VERDE PRIMARY Address: [address] [address] Name: ADRY DURANT Name: PANCHO JEROME Address: [place] [address]
--- OUTSIDE RECORDS SUMMARY | 2024-04-27 10:06 | XMS_ITS | Continuity of Care Document ---
Author Organization [facility] Address [address] [place] [address]- Care Team Providers Care Assistant Chief Train Dispatcher Name Role Phone Mary KEATING, Sisi Almanza Primary Care Physician [phone] Encounter [facility] Date(s): 09/26/22 - 10/26/22 [facility] [address] [place], [place] [address] Allergies, Adverse Reactions, Alerts Substance Reaction [...] 13:12:00 EDT, Aerosol, Route to Pharmacy Electronically, [id number], [facility], ONLY ALBUTEROL HFA, CANCEL... Start Date: 02/15/22 Stop Date: 02/10/23 Status: Ordered Colace sodium 100 mg oral capsule 100 mg, 1, capsule, By Mouth, 2 times a day, PRN, # 30 capsule, Refills 0, Tot. Refills 0, Maintenance, for constipation, 07/31/22 11:03:00 EST, Route to Pharmacy Electronically, [facility], Partial fill upon patient request [...] 6 Refills, Maintenance, 09/04/22 8:50:00 EST, Solution, [facility], 155, cm, 08/14/22 13:52:00 EST, Height, 68.1, kg, 08/14/22 13:52:00 EST, Dry Weight Start Date: 09/04/22 Status: Ordered dextroamphetamine 10 mg oral capsule, extended release See Instructions, start 1 capsule By Mouth Daily in AM. Take second capsule if needed, # 60 capsule, 0 Refills, Maintenance, 10/17/22 14:31:00 EDT, ER Capsule, [facility], Partial fill upon patient request if the prescription is for a sc... Start Date: 10/17/22 Status: Ordered esomeprazole 40 mg oral enteric coated capsule TAKE 1 CAPSULE BY MOUTH EVERY DAY Start Date: 07/12/22 Status: Ordered Flovent HFA 220 mcg/inh inhalation aerosol 2 puffs, Inhalation, 2 times a day, new dosage, # 12 Gm, 0 Refills, Maintenance, 02/15/22 13:10:00 EDT, Aerosol, [facility], new dosage, 155, cm, 12/08/21 [...] 07/31/22 11:03:00 EST, Route to Pharmacy Electronically, [facility], Partial fill upon patient request if the prescription is for a schedule... Start Date: 07/31/22 Status: Ordered LORazepam 0.5 mg oral tablet See Instructions, TAKE 1 TABLET BY MOUTH TWO TIMES A DAY NEEDED FOR ANXIETY, # 28 tablet, 2 Refills, Maintenance, 06/06/22 10:45:00 EST, [facility], 155, cm, 04/06/22 14:56:00 EDT, Height, 67.5, kg, 04/06/22 14:56:00 EDT, Dry Weight Start Date: 06/06/22 Status: Ordered Metoprolol Tartrate 50 mg oral tablet 0 Refills, Maintenance, 03/04/20 9:58:00 EDT Start Date: 03/04/20 Status: Ordered MiraLax oral powder for reconstitution = 17 Gm, By Mouth, Daily, dissolve in water before taking, # 255 Gm, 0 Refills, Maintenance, 08/01/22 6:06:00 EST, REC Powder, [facility] 3, Partial fill upon patient request [...] 0 Refills, Maintenance, 08/01/22 6:06:00 EST, Tablet, [facility] 3, Partial fill upon patient request if the prescription is for a schedule II opioid drug., 155, cm,... Start Date: 08/01/22 Status: Ordered Symbicort 160mcg/4.5mcg Inhaler 2, puffs, Inhalation, 2 times a day, # 3 each, Refills 5, Tot. Refills 5, Maintenance, 09/27/22 12:00:00 EST, Aerosol, Route to Pharmacy Electronically, [id number], [facility], replaces flovent inhaler, 155, cm,... Start [...] 07/31/22 11:03:00 EST, Route to Pharmacy Electronically, [facility], Partial fill upon patient request [...] 3 Refills, Maintenance, 06/05/22 14:27:00 EST, Capsule, [facility], Partial fill upon patient request if [...] Bilateral leg pain Confirmed Active *BHN/CCA/CC-Matias Menas- [phone]/Health half-way, active care coordination Confirmed Active POTS (postural orthostatic tachycardia syndrome) Confirmed Active Medulloblastoma Confirmed Active RUQ pain Confirmed Active Social History Social History Type Response Smoking Status Never smoker; Tobacc o user in household: No entered on: 04/11/16 Sex Patient Care team information Care Team Personnel Name: Vidhya Grace RN Position: [facility] RN Member Role: Primary Care Nurse Name: Sisi Hernandez MD Position: [facility] Primary Care Physician Member Role: PCP Address: Address: [address] [place] [id number] Name: Lizzette To RN Position: [facility] RN Member Role: Primary Care Nurse Name: Karolina Adkins MD Position: [facility] Physician -Physician Practices Member Role: Lifetime Consulting Physician Address: Address: [address] [place] [address] [facility] [place], [place] [address] Name: Isadora Godfrey RN Position: [facility] RN Member Role: Primary Care Nurse Name: Rossy Rowe RN Position: [facility] SN RN Member Role: Primary Care Nurse Name: Cindi Hayward Position: [facility] RN Member Role: Primary Care Nurse Name: Bela Mcmahon RN Position: [facility] Hospital Slackline Operator Member Role: Primary Care Nurse Name: Nicole Hernandez RN Position: [facility] RN Member Role: Primary Care Nurse Name: Zac Castillo RN Position: [facility] ED RN W/OE and Tasks Member Role: Primary Care Nurse Name: Jeanne Grande RN Position: [facility] RN Member Role: Primary Care Nurse Care Team Related Persons Name: KATHRYN TURNERY Address: home [address] [place], [place] Name: TURNERBERA RIBERA SECONDARY Address: home [address] [place], [place] Name: ISATU ECKERT Address: [place] [address] Name: ISAAC VERDE PRIMARY Address: [address] [address] Name: ADRY DURANT Name: PANCHO JEROME Address: [place] [address]
--- OUTSIDE RECORDS SUMMARY | 2024-04-27 10:06 | XMS_ITS | Continuity of Care Document ---
Author Organization [facility] Address [address] [place] [address]- Care Team Providers Care Glassware Maker Name Role Phone Sisi Hernandez MD Primary Care Physician [place] [facility] [place] 10[place] [address]- [facility] Attending Physician: Sisi Hernandez MD Admitting Physician: Sisi Hernandez MD Referring Physician: Sisi Hernandez MD Allergies, Adverse Reactions, [...] 6 hours, PRN, # 2 each, Refills 5, Tot. Refills 5, Maintenance, 03/10/19 12:10:52 EDT, Aerosol, Route to Pharmacy Electronically, [id number], [facility] Start Date: 03/10/19 Stop Date: 09/06/19 Status: Ordered Compression Stockings See Instructions, # 2 units, Refills 11, Tot. Refills 11, Maintenance, KNEE HIGH COMPRESSION STOCKINGS 15-20mm HG use daily 2 pairs every 3 months Dx: POTS syndrome R00.00 HEIGHT 154CM WEIGHT 68KG LIFETIME USE, 06/05/19 16:03:58 EST, Com... Start Date: 06/05/19 Status: Ordered cyanocobalamin 1000 mcg/ml injectable solution 1 mL = 1,000 mcg, Intramuscular, Every 30 days, # 30 mL, 3 Refills, Maintenance, 07/31/19 15:47:00 EST, Solution, [facility], 155, cm, 07/31/19 15:01:00 EST, Height, 63, kg, 07/01/19 19:58:00 EST, Dry Weight Start Date: 07/31/19 Status: Ordered LORazepam 0.5 mg oral tablet See Instructions, TAKE 1 TABLET BY MOUTH TWO TIMES A DAY NEEDED FOR ANXIETY, # 28 tablet, 2 Refills, 01/16/19 11:31:00 EDT Start Date: 01/16/19 Status: Ordered nitroglycerin 0.4 mg sublingual tablet [...] 15:30:53 EST, Aerosol, Route to Pharmacy Electronically, [id number]... Start Date: 09/12/18 Stop Date: 02/09/19 Status: Ordered verapamil 120 mg oral capsule, extended release 1 capsule = 120 mg, By Mouth, Daily, # 30 capsule, 0 Refills, Maintenance, 07/21/19 13:36:00 EST, CR Capsule, [facility], lower dose for a month, 155, cm, 07/21/19 13:05:00 EST, Height,63, kg, 07/01/19 19:58:00 EST, Dry Weight Start Date: 07/21/19 Stop Date: 08/20/19 Status: Ordered Xifaxan 550 mg oral tablet 1 tablet = 550 mg, By Mouth, 3 times a day, # 42 tablet, 0 Refills, Maintenance, 07/21/19 12:29:00 EST, Tablet, [facility], 155, cm, 07/21/19 11:37:00 EST, Height, 63, kg, 07/01/19 19:58:00 EST, Dry Weight Start Date: 07/21/19 Stop Date: 08/04/19 Status: Ordered Zofran ODT 4 mg oral tablet, disintegrating 1 tablet = 4 mg, By Mouth, Every 8 hours, PRN as needed for nausea/vomiting, # 30 tablet, 0 Refills, Maintenance, 07/07/19 17:10:51 EST, DIS Tablet, 155, cm, 07/05/19 5:53:50 EST, Height, 63, kg, 07/01/19 19:58:06 EST, Dry Weight Start Date: 07/07/19 Status: Ordered Problem List Condition Effective Dates Status Health Status Inform ant Abdominal pain(Confirmed) Active Adjustment disorder with mix ed anxiety and depressed mood(Confirmed) 2015 Active Anxiety(Confirmed) Active Asthma(Confirmed) Active Back pain(Confirmed) Active Breast lump(Confirmed) Active Chronic insomnia(Confirmed) Active Deep vein thrombosis(Confirmed) Active Right leg DVT(Confirmed) Active GERD (gastroesophageal reflu x disease)(Confirmed) Active IBS (irritable bowel syndrome)(Confirmed) 01/23/16 Active Near syncope(Confirmed) Active *[facility]/CCGuz[facility] Neat-[phone]/[facility], active care coordination(Confirmed) Active Matias Vela [facility] Mobile Marketing Specialist [phone](Confirmed) Active POTS (postural orthostatic t achycardia syndrome)(Confirmed) Active Medulloblastoma(Confirmed) Active RUQ pain(Confirmed) Active Social History Social History Type Response Smoking Status Never smoker; Tobacc o user in household: No entered on: 04/11/16 Sex
--- OUTSIDE RECORDS SUMMARY | 2024-04-27 10:06 | XMS_ITS | Continuity of Care Document ---
Author Organization [facility] Address [address] [place] [address]- Care Team Providers Care Eggs Inspector Name Role Phone Sisi Hernandez MD Primary Care Physician [place] [facility] [place] 01/04/23 [facility] [address] [place], [place] [address] Allergies, Adverse Reactions, Alerts Substance Reaction Severity [...] na 2Result Note: wants at pcp Medications Adderall XR 20 mg oral capsule, extended release 1 capsule = 20 mg, By Mouth, Daily in AM, # 30 capsule, 0 Refills, Maintenance, 12/21/22 14:40:00 EDT, ER Capsule, [facility], Partial fill upon patient request if the prescription is for a schedule II opioid drug., 155, cm, 12/05/22 11:... Start Date: 12/21/22 Status: Ordered albuterol CFC free 90 mcg/inh inhalation aerosol 2, puffs, Inhalation, Every 6 hours, PRN, # 2 each, Refills 11, Tot. Refills 11, Maintenance, 02/15/22 13:12:00 EDT, Aerosol, Route to Pharmacy Electronically, [id number], [facility], ONLY ALBUTEROL HFA, CANCEL... Start Date: 02/15/22 Stop Date: 02/10/23 Status: Ordered Colace sodium 100 mg oral capsule 100 mg, 1, capsule, By Mouth, 2 times a day, PRN, # 30 capsule, Refills 0, Tot. Refills 0, Maintenance, for constipation, 07/31/22 11:03:00 EST, Route to Pharmacy Electronically, [facility], Partial fill upon patient request if [...] 6 Refills, Maintenance, 09/04/22 8:50:00 EST, Solution, [facility], 155, cm, 08/14/22 13:52:00 EST, Height, 68.1, kg, 08/14/22 13:52:00 EST, Dry Weight Start Date: 09/04/22 Status: Ordered esomeprazole 40 mg oral enteric coated capsule TAKE 1 CAPSULE BY MOUTH EVERY DAY Start Date: 07/12/22 Status: Ordered Flovent HFA 220 mcg/inh inhalation aerosol 2 puffs, Inhalation, 2 times a day, new dosage, # 12 Gm, 0 Refills, Maintenance, 02/15/22 13:10:00 EDT, Aerosol, [facility], new dosage, 155, cm, 12/08/21 [...] 07/31/22 11:03:00 EST, Route to Pharmacy Electronically, [facility], Partial fill upon patient request if the prescription is for a schedule... Start Date: 07/31/22 Status: Ordered LORazepam 0.5 mg oral tablet See Instructions, TAKE 1 TABLET BY MOUTH TWO TIMES A DAY NEEDED FOR ANXIETY, # 28 tablet, 2 Refills, Maintenance, 12/05/22 12:25:00 EDT, [facility], 155, cm, 12/05/22 11:40:00 EDT, Height, 68.1, kg, 08/14/22 13:52:00 EST, Dry Weight Start Date: 12/05/22 Status: Ordered Metoprolol Tartrate 50 mg oral tablet 0 Refills, Maintenance, 03/04/20 9:58:00 EDT Start Date: 03/04/20 Status: Ordered MiraLax oral powder for reconstitution = 17 Gm, By Mouth, Daily, dissolve in water before taking, # 255 Gm, 0 Refills, Maintenance, 08/01/22 6:06:00 EST, REC Powder, [facility], Partial fill upon patient request [...] 0 Refills, Maintenance, 08/01/22 6:06:00 EST, Tablet, [facility] 3, Partial fill upon patient request if the prescription is for a schedule II opioid drug., 155, cm,... Start Date: 08/01/22 Status: Ordered Symbicort 160mcg/4.5mcg Inhaler 2, puffs, Inhalation, 2 times a day, # 3 each, Refills 5, Tot. Refills 5, Maintenance, 09/27/22 12:00:00 EST, Aerosol, Route to Pharmacy Electronically, [id number], [facility], replaces flovent inhaler, 155, cm,... Start [...] 07/31/22 11:03:00 EST, Route to Pharmacy Electronically, [facility], Partial fill upon patient request if the prescription is... Start Date: 07/31/22 Status: Ordered verapamil 240 mg/12 hours oral tablet, extended release TAKE 1 TABLET BY MOUTH DAILY. Start Date: 09/27/22 Status: Ordered Vitamin D3 1000 intl units oral capsule 1 capsule = 25 mcg, By Mouth, Daily, # 100 capsule, 3 Refills, Maintenance, 06/05/22 14:27:00 EST, Capsule, [facility], Partial fill upon patient request [...] Confirmed Active IBS (irritable bowel syndrome) Confirmed 6/27/16 Active Memory change Confirmed Active Near syncope Confirmed Active Bilateral leg pain Confirmed Active *BHN/CCA/CC-Matias Vela- [phone]/Health group home, active care coordination Confirmed Active POTS (postural orthostatic tachycardia syndrome) Confirmed Active Medulloblastoma Confirmed Active RUQ pain Confirmed Active Tachy-sharmin syndrome Confirmed Active Social History Social History Type Response Smoking Status Never smoker; Tobacc o user in household: No entered on: 04/11/16 Sex Patient Care team information Care Team Personnel Name: Vidhya Grace RN Position: [facility] RN Member Role: Primary Care Nurse Name: Sisi Hernandez MD Position: [facility] Physician - Primary Care Member Role: PCP Address: Address: [address] [place] [address] [facility] Name: Lizzette To RN Position: [facility] RN Member Role: Primary Care Nurse Name: Karolina Adkins MD Position: [facility] Physician - Primary Care Member Role: Lifetime Consulting Physician Address: Address: [address] [place] [address] [facility] Care [place], [place] [facility] Name: Rossy Rowe RN Position: [facility] SN RN Member Role: Primary Care Nurse Name: Cindi Hayward Position: [facility] RN Member Role: Primary Care Nurse Name: Bela Mcmahon RN Position: [facility] Hospital Roving Department End Finder Member Role: Primary Care Nurse Name: Nicole Hernandez RN Position: [facility] RN Member Role: Primary Care Nurse Name: Zac Castillo RN Position: [facility] ED RN W/OE and Tasks Member Role: Primary Care Nurse Name: Jeanne Grande RN Position: [facility] RN Member Role: Primary Care Nurse Care Team Related Persons Name: BEAR TURNER Address: [address] [place], [place] Name: BEAR TURNER SECONDARY Address: home [address] [place] [address] Name: ISATU ECKERT Address: home [place], [place] Name: ISAAC VERDE PRIMARY Address: home [address] [place] [address] Name: ADRY DURANT Name: PANCHO JEROME Address: [place] [address]
--- OUTSIDE RECORDS SUMMARY | 2024-04-27 10:06 | XMS_ITS | Continuity of Care Document ---
Author Organization [facility] Address [address] [place] [address]- Care Team Providers Care Technical Writing Lead/Mgr Name Role Phone Sisi Hernandez MD Primary Care Physician [place] [facility] [place]20 [facility] [address] [place], [place] [address] Attending Physician: Not on Staff, Attending MD Allergies, Adverse Reactions, Alerts Substance Reaction [...] 8:59:00 EDT, Aerosol, Route to Pharmacy Electronically, [id number], [facility], 155, cm, 10/07/19 12:25:00 [...] days, # 3 mL, 6 Refills, Maintenance, 06/15/20 11:56:00 EST, Solution, [facility], 155, cm, 06/03/20 13:15:00 EST, Height, 68.5, kg, 06/03/20 13:18:00 EST, Dry Weight Start Date: 06/15/20 Status: Ordered dilTIAZem 240 mg/24 hours oral tablet, extended release 1 tablet = 240 mg, By Mouth, Daily, FURTHER REFILLS BY WOUND CARE SPECIALIST, # 90 tablet, 0 Refills, Maintenance, 11/27/19 8:57:00 EDT, ER Tablet, [facility], 155, cm, 10/07/19 12:25:00 [...] ANXIETY, # 28 tablet, 2 Refills, Maintenance, 05/06/20 15:17:00 EDT, [facility], 155, cm, 05/03/20 18:55:00 EDT, Height, 63, kg, 07/01/19 19:58:00 EST, Dry Weight Start Date: 05/06/20 Status: Ordered Metoprolol Tartrate 50 mg oral [...] 15:30:53 EST, Aerosol, Route to Pharmacy Electronically, [id number]... Start Date: 09/12/18 Stop Date: 02/09/19 Status: Ordered syringe and needles syringe and needles, See Instructions, # 12 Unknown, Refills 3, Tot. Refills 3, Maintenance, syringe 3cc needles 25 g X 5/8 inches for use with b12, 03/04/20 9:54:00 EDT, Compound, 155, cm, 10/07/19 12:25:00 EDT, Height, 63, kg, 07/01/19 19:58:00 EST... Start Date: 03/04/20 Status: Ordered Vitamin D3 1000 intl units oral capsule 1 capsule = 1,000 International_Units, By Mouth, Daily, # 100 capsule, 2 Refills, Maintenance, 08/04/20 12:39:00 EST, Capsule, [facility], Partial fill upon patient request if the prescription is for a schedule II opioid drug., 155, cm,... Start Date: 08/04/20 Status: Ordered Problem List Condition Effective Dates [...] Near syncope(Confirmed) Active Bilateral leg pain(Confirmed) Active *BHN/CCA/CC-Matias Vela- [phone]/Health [facility], active care coordination(Confirmed) Active POTS (postural orthostatic t achycardia syndrome)(Confirmed) Active Medulloblastoma(Confirmed) Active RUQ pain(Confirmed) Active Viral URI(Confirmed) Active Social History Social History Type Response Smoking Status Never smoker; Tobacc o user in household: No entered on: 04/11/16 Sex
--- OUTSIDE RECORDS SUMMARY | 2024-04-27 10:06 | XMS_ITS | Continuity of Care Document ---
Author Organization [facility] Address [address] [place] [address]- Care Team Providers Care Embroidery Worker Name Role Phone Sisi Hernandez MD Primary Care Physician Encounter [facility] ACCT R [id number] Date(s): 06/25/23 - 08/24/23 [facility] [address] [place], [place] [address] Attending Physician: Sisi Hernandez MD Allergies, Adverse [...] Given 1Early/Late Reason: Other : na Medications Adderall XR 20 mg oral capsule, extended release 1 capsule = 20 mg, By Mouth, Daily in AM, # 30 capsule, 0 Refills, Maintenance, 12/21/22 14:40:00 EDT, ER Capsule, [facility], Partial fill upon patient request if the prescription is for a schedule II opioid drug., 155, cm, 12/05/22 11:... Start Date: 12/21/22 Status: Ordered albuterol CFC free 90 mcg/inh inhalation aerosol 2, puffs, Inhalation, Every 6 hours, PRN, # 2 each, Refills 11, Tot. Refills 11, Maintenance, 02/15/22 13:12:00 EDT, Aerosol, Route to Pharmacy Electronically, [id number], [facility], ONLY ALBUTEROL HFA, CANCEL... Start Date: 02/15/22 Stop Date: 02/10/23 Status: Ordered Colace sodium 100 mg oral capsule 100 mg, 1, capsule, By Mouth, 2 times a day, PRN, # 180 capsule, Refills 3, Tot. Refills 3, Maintenance, for constipation, 08/09/23 14:49:00 EST, Route to Pharmacy Electronically, [facility], Partial fill upon patient request if [...] days, # 3 mL, 6 Refills, Maintenance, 08/07/23 13:45:00 EST, Solution, [facility], 155, cm, 06/07/23 20:58:00 EST, Height, 68.3, kg, 06/07/23 20:58:00 EST, Dry Weight Start Date: 08/07/23 Status: Ordered esomeprazole 40 mg oral enteric coated capsule TAKE 1 CAPSULE BY MOUTH EVERY DAY Start Date: 07/12/22 Status: Ordered Flovent HFA 220 mcg/inh inhalation aerosol 2 puffs, Inhalation, 2 times a day, new dosage, # 12 Gm, 0 Refills, Maintenance, 02/15/22 13:10:00 EDT, Aerosol, [facility], new dosage, 155, cm, [...] 07/31/22 11:03:00 EST, Route to Pharmacy Electronically, [facility], Partial fill upon patient request if the prescription is for a schedule... Start Date: 07/31/22 Status: Ordered LORazepam 0.5 mg oral tablet See Instructions, TAKE 1 TABLET BY MOUTH TWO TIMES A DAY NEEDED FOR ANXIETY, # 28 tablet, 2 Refills, Maintenance, 12/05/22 12:25:00 EDT, [facility], 155, cm, 12/05/22 11:40:00 EDT, Height, [...] 0 Refills, Maintenance, 08/01/22 6:06:00 EST, Tablet, [facility], Partial fill upon patient request if the prescription is for a schedule II opioid drug., 155, cm,... Start Date: 08/01/22 Status: Ordered Symbicort 160mcg/4.5mcg Inhaler 2, puffs, Inhalation, 2 times a day, # 3 each, Refills 5, Tot. Refills 5, Maintenance, 09/27/22 12:00:00 EST, Aerosol, Route to Pharmacy Electronically, [id number], [facility], replaces flovent inhaler, 155, cm,... Start [...] 07/31/22 11:03:00 EST, Route to Pharmacy Electronically, [facility], Partial fill upon patient [...] Refills, Maintenance, 08/14/23 13:38:00 EST, Chew Tablet, [facility], Partial fill upon patient request if the prescription is for a schedule II opioid drug., 155, cm, 08/14/23 13:0... Start Date: 08/14/23 Status: Ordered Vitamin D3 50,000 intl units oral capsule 1 capsule = 1,250 mcg, By Mouth, Every week, # 13 capsule, 1 Refills, Maintenance, 05/17/23 17:07:00 EDT, Capsule, [facility], Partial fill upon patient request if the prescription is for a schedule II opioid drug., 155, cm, 05/15/23 13:... Start Date: 05/17/23 Status: Ordered Problem List Condition Confirmation Course [...] Bilateral leg pain Confirmed Active *BHN/CCA/CC-Matias Vela- [phone]/Health chcf, active care coordination Confirmed Active POTS (postural orthostatic tachycardia syndrome) Confirmed Active Medulloblastoma Confirmed Active RUQ pain Confirmed Active Tachy-sharmin syndrome Confirmed Active Social History Social History Type Response Smoking Status Never smoker; Tobacc o user in household: No entered on: 04/11/16 Sex Patient Care team information Care Team Personnel Name: Vidhya Grace RN Position: [facility] RN Member Role: Primary Care Nurse Name: Sisi Hernandez MD Position: [facility] Physician - Primary Care Member Role: PCP Address: Address: [address] [place] [address] [facility] Name: Lizzette To RN Position: [facility] SN RN Member Role: Primary Care Nurse Name: Karolina Adkins MD Position: [facility] Physician - Primary Care Member Role: Lifetime Consulting Physician Address: Address: [address] [place] [address] [facility] [place] [facility] Name: Isadora Godfrey RN Position: [facility] RN Member Role: Primary Care Nurse Name: Rossy Rowe RN Position: [facility] SN RN Member Role: Primary Care Nurse Name: Cindi Hayward RN Position: [facility] RN Member Role: Primary Care Nurse Name: Bela Mcmahon RN Position: [facility] Printing Screen Assembler Member Role: Primary Care Nurse Name: Nicole Hernandez RN Position: [facility] RN Member Role: Primary Care Nurse Name: Zac Castillo RN Position: [facility] ED RN W/OE and Tasks Member Role: Primary Care Nurse Name: Jeanne Grande RN Position: [facility] RN Member Role: Primary Care Nurse Care Team Related Persons Name: TURNERBEAR Address: home [address] [place] [address] Name: BEAR TURNER SECONDARY Address: home [address] [place] [address] Name: ISATU ECKERT Address: [place], [place] Name: ISAAC VERDE PRIMARY Address: home [address] [place] [address] Name: ADRY DURANT Name: PANCHO JEROME Address: [place], [place]
--- OUTSIDE RECORDS SUMMARY | 2024-04-27 10:06 | XMS_ITS | Continuity of Care Document ---
Author Organization [facility] Address [address] [place] [address]- Care Team Providers Care Jewelry Department Supervisor Name Role Phone Sisi Hernandez MD Primary Care Physician Encounter [facility] Date(s): 12/21/20 - 01/20/21 [facility] [address] [place], [place] [address] Allergies, Adverse Reactions, Alerts Substance Reaction [...] na 2Result Note: wants at pcp Medications acetaminophen-codeine 300 mg-30 mg oral tablet 2, tablet, By Mouth, 3 times a day, PRN, # 30 tablet, Refills 0, Tot. Refills 0, Acute, for pain, 01/21/21 12:53:00 EDT, 12/22/20 12:53:00 EDT, Route to Pharmacy Electronically, [facility] Tablet, Partial fill upon patient request if the... Start Date: 12/22/20 Stop Date: 01/21/21 Status: Ordered albuterol CFC free 90 mcg/inh inhalation aerosol 2, puffs, Inhalation, Every 6 hours, PRN, # 2 each, Refills 11, Tot. Refills 11, Maintenance, 12/02/20 8:50:00 EDT, Aerosol, Route to Pharmacy Electronically, [id number], [facility], 155, cm, 06/03/20 13:15:00 E... Start Date: 12/02/20 Stop Date: 11/27/21 Status: Ordered Compression Stockings See Instructions, # [...] 6 Refills, Maintenance, 06/15/20 11:56:00 EST, Solution, [facility], 155, cm, 06/03/20 13:15:00 EST, Height, 68.5, kg, 06/03/20 13:18:00 EST, Dry Weight Start Date: 06/15/20 Status: Ordered dilTIAZem 240 mg/24 hours oral tablet, extended release 1 tablet = 240 mg, By Mouth, Daily, FURTHER REFILLS BY VACUUM BOTTLE ASSEMBLER, # 90 tablet, 0 Refills, Maintenance, 11/27/19 8:57:00 EDT, ER Tablet, [facility], 155, cm, 10/07/19 12:25:00 EDT, Height, [...] tablet, 2 Refills, Maintenance, 05/06/20 15:17:00 EDT, [facility], 155, cm, 05/03/20 18:55:00 EDT, Height, [...] 15:30:53 EST, Aerosol, Route to Pharmacy Electronically, [id number]... Start Date: 09/12/18 Stop Date: 02/09/19 Status: Ordered ProAir HFA 90 mcg/inh inhalation aerosol with adapter 2, puffs, Inhalation, Every 4 hours, PRN, use with spacer chamber BRAND NAME MEDICALLY NECESSARY, #8.5 Gm, Refills 0, Tot. Refills 0, Maintenance, 12/05/20 15:38:00 EDT, Aerosol, Route to Pharmacy Electronically, [id number]... Start Date: 12/05/20 Status: Ordered ramelteon 8 mg oral tablet 1 tablet = 8 mg, By Mouth, Daily at bedtime, # 30 tablet, 11 Refills, Maintenance, 12/02/20 8:48:00EDT, [facility], Partial fill upon patient request if the prescription is for a schedule II opioid drug., 155, cm, 06/03/20 13:15:00 EST,... Start Date: 12/02/20 Status: Ordered syringe and needles syringe and [...] 2 Refills, Maintenance, 08/04/20 12:39:00 EST, Capsule, [facility], Partial fill upon patient [...] Active Chronic insomnia(Confirmed) Active B12 deficiency(Confirmed) Active Cognitive disorder(Confirmed) Active Somnolence, daytime(Confirmed) Active Deep vein thrombosis(Confirmed) Active Right leg DVT(Confirmed) Active GERD (gastroesophageal reflu x disease)(Confirmed) Active Hypoglycemia, unspecified(Confirmed) Active IBS (irritable bowel syndrome)(Confirmed) 01/23/16 Active Memory change(Confirmed) Active Near syncope(Confirmed) Active Bilateral leg pain(Confirmed) Active *BHN/CCA/CC-Matias Livingston- [phone]/Health alf, active care coordination(Confirmed) Active POTS (postural orthostatic t achycardia syndrome)(Confirmed) Active Medulloblastoma(Confirmed) Active RUQ pain(Confirmed) Active Viral URI(Confirmed) Active Social History Social History Type Response Smoking Status Never smoker; Tobacc o user in household: No entered on: 04/11/16 Sex
--- OUTSIDE RECORDS SUMMARY | 2024-04-27 10:07 | XMS_ITS | Continuity of Care Document ---
Author Organization [facility] Address [address] [place] [address]- Care Team Providers Care Short Goods Drier Name Role Phone Sisi Hernandez MD Primary Care Physician Encounter [facility] ACCT R [id number] Date(s): 03/04/20 - 03/11/20 [facility] [address] [place] [address]- [facility] Encounter Diagnosis POTS (postural orthostatic tachycardia syndrome)(Discharge Diagnosis) - 03/04/20 B12 deficiency(Discharge Diagnosis) - 03/04/20 Attending Physician: Sisi Hernandez MD Allergies, Adverse [...] 8:59:00 EDT, Aerosol, Route to Pharmacy Electronically, [id number], [facility], 155, cm, 10/07/19 12:25:00 E... [...] 5 Refills, Maintenance, 03/04/20 9:53:00 EDT, Solution, [facility], 155, cm, 10/07/19 12:25:00 EDT, Height, 63, kg, 07/01/19 19:58:00 EST, Dry Weight Start Date: 03/04/20 Status: Ordered dilTIAZem 240 mg/24 hours oral tablet, extended release 1 tablet = 240 mg, By Mouth, Daily, FURTHER REFILLS BY STOCK PATCH SAWYER, # 90 tablet, 0 Refills, Maintenance, 11/27/19 8:57:00 EDT, ER Tablet, [facility], 155, cm, 10/07/19 12:25:00 EDT, [...] tablet, 2 Refills, Maintenance, 11/02/19 10:43:00 EDT, [facility], 155, cm, 10/07/19 12:25:00 EDT, Height, [...] 15:30:53 EST, Aerosol, Route to Pharmacy Electronically, [id number]... Start Date: 09/12/18 Stop Date: 02/09/19 Status: [...] Near syncope(Confirmed) Active Bilateral leg pain(Confirmed) Active *[facility]/CC-Geno Neath-[phone]/Health longterm, active care coordination(Confirmed) Active Matias Vela [facility] Hair Or Beauty Salon Manager [phone](Confirmed) Active POTS (postural orthostatic t achycardia syndrome)(Confirmed) Active Medulloblastoma(Confirmed) Active RUQ pain(Confirmed) Active Diagnosis Diagnosis Type Effective Dates Health Status Clinical Service Informant POTS (postural orthostatic tachycardia syndrome) Discharge Diagnosis 03/04/20 B12 deficiency Discharge Diagnosis 03/04/20 Social History Social History Type Response Smoking Status Never smoker; Tobacc o user in household: No entered on: 04/11/16 Sex
--- OUTSIDE RECORDS SUMMARY | 2024-04-27 10:07 | XMS_ITS | Continuity of Care Document ---
Author Organization [facility] Address [address], [address], [address] [place] [address]- Care Team Providers Care Reflow Operator Name Role Phone Mray KEATING, Sisi Almanza Primary Care Physician [phone] [place] [facility] Date(s): 12/14/20 - 01/13/21 [facility] [address], [address], [address] [place] [id number] Allergies, Adverse Reactions, Alerts Substance Reaction [...] 12/22/20 12:53:00 EDT, Route to Pharmacy Electronically, [facility] Tablet, Partial fill upon patient request if the... Start Date: 12/22/20 Stop Date: 01/21/21 Status: Ordered albuterol CFC free 90 mcg/inh inhalation aerosol 2, puffs, Inhalation, Every 6 hours, PRN, # 2 each, Refills 11, Tot. Refills 11, Maintenance, 12/02/20 8:50:00 EDT, Aerosol, Route to Pharmacy Electronically, [id number], [facility], 155, cm, 06/03/20 13:15:00 [...] 6 Refills, Maintenance, 06/15/20 11:56:00 EST, Solution, [facility], 155, cm, 06/03/20 13:15:00 EST, Height, 68.5, kg, 06/03/20 13:18:00 EST, Dry Weight Start Date: 06/15/20 Status: Ordered dilTIAZem 240 mg/24 hours oral tablet, extended release 1 tablet = 240 mg, By Mouth, Daily, FURTHER REFILLS BY GROUP INSURANCE SPECIALIST, # 90 tablet, 0 Refills, Maintenance, 11/27/19 8:57:00 EDT, ER Tablet, [facility], 155, cm, 10/07/19 12:25:00 EDT, [...] tablet, 2 Refills, Maintenance, 05/06/20 15:17:00 EDT, [facility], 155, cm, 05/03/20 18:55:00 EDT, [...] 15:30:53 EST, Aerosol, Route to Pharmacy Electronically, [id number]... Start Date: 09/12/18 Stop Date: 02/09/19 Status: Ordered ProAir HFA 90 mcg/inh inhalation aerosol with adapter 2, puffs, Inhalation, Every 4 hours, PRN, use with spacer chamber BRAND NAME MEDICALLY NECESSARY, #8.5 Gm, Refills 0, Tot. Refills 0, Maintenance, 12/05/20 15:38:00 EDT, Aerosol, Route to Pharmacy Electronically, [id number]... Start Date: 12/05/20 Status: Ordered ramelteon 8 mg oral tablet 1 tablet = 8 mg, By Mouth, Daily at bedtime, # 30 tablet, 11 Refills, Maintenance, 12/02/20 8:48:00EDT, [facility], Partial fill upon patient [...] 2 Refills, Maintenance, 08/04/20 12:39:00 EST, Capsule, [facility], Partial fill upon patient request if the prescription is for a schedule II opioid drug., 155, cm,... Start Date: 08/04/20 Status: Ordered Problem List Condition Effective Dates Status Health Status Inform ant Abdominal pain(Confirmed) Active Adjustment disorder with mix ed anxiety and depressed mood(Confirmed) 2016 Active Anxiety(Confirmed) Active Asthma(Confirmed) Active Back pain(Confirmed) Active Breast lump(Confirmed) Active Chronic insomnia(Confirmed) Active B12 deficiency(Confirmed) Active Cognitive disorder(Confirmed) Active Somnolence, daytime(Confirmed) Active Deep vein thrombosis(Confirmed) Active Right leg DVT(Confirmed) Active GERD (gastroesophageal reflu x disease)(Confirmed) Active Hypoglycemia, unspecified(Confirmed) Active IBS (irritable bowel syndrome)(Confirmed) 01/23/16 Active Memory change(Confirmed) Active Near syncope(Confirmed) Active Bilateral leg pain(Confirmed) Active *BHN/CCA/CC-Matias Vela- [phone]/Health prison, active care coordination(Confirmed) Active POTS (postural orthostatic t achycardia syndrome)(Confirmed) Active Medulloblastoma(Confirmed) Active RUQ pain(Confirmed) Active Viral URI(Confirmed) Active Social History Social History Type Response Smoking Status Never smoker; Tobacc o user in household: No entered on: 04/11/16 Sex
--- OUTSIDE RECORDS SUMMARY | 2024-04-27 10:07 | XMS_ITS | Continuity of Care Document ---
Author Organization [facility] Address [address] [place] [address]- Care Team Providers Care Browning Processor Name Role Phone Ssii Hernandez MD Primary Care Physician Encounter [facility] [place] Date(s): 09/30/20 - 10/07/20 [facility] [address] [place], [place] [address] Encounter Diagnosis B12 deficiency(Discharge Diagnosis) - 09/30/20 POTS (postural orthostatic tachycardia syndrome)(Discharge Diagnosis) - 09/30/20 Abdominal pain(Discharge Diagnosis) - 09/30/20 Attending Physician: Sisi Hernandez MD Allergies, Adverse Reactions, Alerts Substance Reaction Severity Status cefoxitin Cough Tightness in throat Active Sertraline Hydrochloride burning Act alessandra vancomycin Throat itching Itching of skin Active Fruit rash Allergy to fruit Active Immunizations Given and Recorded Vaccine Date Status [...] 8:59:00 EDT, Aerosol, Route to Pharmacy Electronically, [id number], [facility], 155, cm, 10/07/19 12:25:00 [...] 6 Refills, Maintenance, 06/15/20 11:56:00 EST, Solution, [facility], 155, cm, 06/03/20 13:15:00 EST, Height, 68.5, kg, 06/03/20 13:18:00 EST, Dry Weight Start Date: 06/15/20 Status: Ordered dilTIAZem 240 mg/24 hours oral tablet, extended release 1 tablet = 240 mg, By Mouth, Daily, FURTHER REFILLS BY INVENTORY REPRESENTATIVE, # 90 tablet, 0 Refills, Maintenance, 11/27/19 8:57:00 EDT, ER Tablet, [facility], 155, cm, 10/07/19 12:25:00 [...] tablet, 2 Refills, Maintenance, 05/06/20 15:17:00 EDT, [facility], 155, cm, 05/03/20 18:55:00 EDT, Height, [...] 15:30:53 EST, Aerosol, Route to Pharmacy Electronically, [id number]... Start Date: 09/12/18 Stop Date: 02/09/19 Status: [...] 2 Refills, Maintenance, 08/04/20 12:39:00 EST, Capsule, [facility], Partial fill upon patient [...] Active Bilateral leg pain(Confirmed) Active *BHN/CCA/CC-Matias Vela- [phone]/Health longterm, active care coordination(Confirmed) Active POTS (postural orthostatic t achycardia syndrome)(Confirmed) Active Medulloblastoma(Confirmed) Active RUQ pain(Confirmed) Active Viral URI(Confirmed) Active Diagnosis Diagnosis Type Effective Dates Health Status Clinical Service Informant B12 deficiency Discharge Diagnosis 09/30/20 POTS (postural orthostatic tachycardia syndrome) Discharge Diagnosis 09/30/20 Abdominal pain Discharge Diagnosis 09/30/20 Social History Social History Type Response Smoking Status Never smoker; Tobacc o user in household: No entered on: 04/11/16 Sex
--- OUTSIDE RECORDS SUMMARY | 2024-04-27 10:07 | XMS_ITS | Continuity of Care Document ---
Author Organization [facility] Address [address] [facility], [address] [place] [address]- Care Team Providers Care Director Of Web Marketing Name Role Phone Sisi Hernandez MD Primary Care Physician Encounter [facility] Date(s): 11/22/20 - 12/22/20 [facility] [address] [facility] [address], [address], [address] [place] [address] Allergies, Adverse Reactions, Alerts Substance [...] 12/22/20 12:53:00 EDT, Route to Pharmacy Electronically, [facility] Tablet, Partial fill upon patient request if the... Start Date: 12/22/20 Stop Date: 01/21/21 Status: Ordered albuterol CFC free 90 mcg/inh inhalation aerosol 2, puffs, Inhalation, Every 6 hours, PRN, # 2 each, Refills 11, Tot. Refills 11, Maintenance, 12/02/20 8:50:00 EDT, Aerosol, Route to Pharmacy Electronically, [id number], [facility], 155, cm, 06/03/20 13:15:00 E... [...] 6 Refills, Maintenance, 06/15/20 11:56:00 EST, Solution, [facility], 155, cm, 06/03/20 13:15:00 EST, Height, 68.5, kg, 06/03/20 13:18:00 EST, Dry Weight Start Date: 06/15/20 Status: Ordered dilTIAZem 240 mg/24 hours oral tablet, extended release 1 tablet = 240 mg, By Mouth, Daily, FURTHER REFILLS BY LIVING ADVISOR, # 90 tablet, 0 Refills, Maintenance, 11/27/19 8:57:00 EDT, ER Tablet, [facility], 155, cm, 10/07/19 12:25:00 EDT, [...] tablet, 2 Refills, Maintenance, 05/06/20 15:17:00 EDT, [facility], 155, cm, 05/03/20 18:55:00 [...] 15:30:53 EST, Aerosol, Route to Pharmacy Electronically, [id number]... Start Date: 09/12/18 Stop Date: 02/09/19 Status: Ordered ProAir HFA 90 mcg/inh inhalation aerosol with adapter 2, puffs, Inhalation, Every 4 hours, PRN, use with spacer chamber BRAND NAME MEDICALLY NECESSARY, #8.5 Gm, Refills 0, Tot. Refills 0, Maintenance, 12/05/20 15:38:00 EDT, Aerosol, Route to Pharmacy Electronically, [id number]... Start Date: 12/05/20 Status: Ordered ramelteon 8 mg oral tablet 1 tablet = 8 mg, By Mouth, Daily at bedtime, # 30 tablet, 11 Refills, Maintenance, 12/02/20 8:48:00EDT, [facility], Partial fill upon patient request [...] 2 Refills, Maintenance, 08/04/20 12:39:00 EST, Capsule, [facility], Partial fill upon patient request [...] Active Chronic insomnia(Confirmed) Active B12 deficiency(Confirmed) Active Somnolence, daytime(Confirmed) Active Deep vein thrombosis(Confirmed) Active Right leg DVT(Confirmed) Active GERD (gastroesophageal reflu x disease)(Confirmed) Active Hypoglycemia, unspecified(Confirmed) Active IBS (irritable bowel syndrome)(Confirmed) 01/23/16 Active Memory change(Confirmed) Active Near syncope(Confirmed) Active Bilateral leg pain(Confirmed) Active *BHN/CCA/CC-Matias Vela- [phone]/Health correction, active care coordination(Confirmed) Active POTS (postural orthostatic t achycardia syndrome)(Confirmed) Active Medulloblastoma(Confirmed) Active RUQ pain(Confirmed) Active Viral URI(Confirmed) Active Social History Social History Type Response Smoking Status Never smoker; Tobacc o user in household: No entered on: 04/11/16 Sex
--- OUTSIDE RECORDS SUMMARY | 2024-04-27 10:07 | XMS_ITS | Continuity of Care Document ---
Author Organization [facility] Address [address] [place] [address]- Care Team Providers Care Window Treatment Installer Name Role Phone Sisi Hernandez MD Primary Care Physician [phone] Encounter [facility] Date(s): 08/02/23 - 09/01/23 [facility] [address] [place], [place] [address] Allergies, Adverse Reactions, Alerts Substance [...] Refills, Maintenance, 12/21/22 14:40:00 EDT, ER Capsule, [facility], Partial fill upon patient request if the prescription is for a schedule II opioid drug., 155, cm, 12/05/22 11:... Start Date: 12/21/22 Status: Ordered albuterol CFC free 90 mcg/inh inhalation aerosol 2, puffs, Inhalation, Every 6 hours, PRN, # 2 each, Refills 11, Tot. Refills 11, Maintenance, 02/15/22 13:12:00 EDT, Aerosol, Route to Pharmacy Electronically, [id number], [facility], ONLY ALBUTEROL HFA, CANCEL... Start Date: 02/15/22 Stop Date: 02/10/23 Status: Ordered Colace sodium 100 mg oral capsule 100 mg, 1, capsule, By Mouth, 2 times a day, PRN, # 180 capsule, Refills 3, Tot. Refills 3, Maintenance, for constipation, 08/09/23 14:49:00 EST, Route to Pharmacy Electronically, [facility], Partial fill upon [...] 6 Refills, Maintenance, 08/07/23 13:45:00 EST, Solution, [facility], 155, cm, 06/07/23 [...] 0 Refills, Maintenance, 02/15/22 13:10:00 EDT, Aerosol, [facility], new dosage, 155, [...] 07/31/22 11:03:00 EST, Route to Pharmacy Electronically, [facility], Partial fill upon patient request if the prescription is for a schedule... Start Date: 07/31/22 Status: Ordered LORazepam 0.5 mg oral tablet See Instructions, TAKE 1 TABLET BY MOUTH TWO TIMES A DAY NEEDED FOR ANXIETY, # 28 tablet, 2 Refills, Maintenance, 12/05/22 12:25:00 EDT, [facility], 155, cm, [...] 0 Refills, Maintenance, 08/01/22 6:06:00 EST, Tablet, [facility], Partial fill upon patient request if the prescription is for a schedule II opioid drug., 155, cm,... Start Date: 08/01/22 Status: Ordered Symbicort 160mcg/4.5mcg Inhaler 2, puffs, Inhalation, 2 times a day, # 3 each, Refills 5, Tot. Refills 5, Maintenance, 09/27/22 12:00:00 EST, Aerosol, Route to Pharmacy Electronically, [id number], [facility], replaces flovent inhaler, 155, cm,... Start [...] 07/31/22 11:03:00 EST, Route to Pharmacy Electronically, [facility], Partial fill upon [...] Refills, Maintenance, 08/14/23 13:38:00 EST, Chew Tablet, [facility], Partial fill upon patient request if the prescription is for a schedule II opioid drug., 155, cm, 08/14/23 13:0... Start Date: 08/14/23 Status: Ordered Vitamin D3 50,000 intl units oral capsule 1 capsule = 1,250 mcg, By Mouth, Every week, # 13 capsule, 1 Refills, Maintenance, 05/17/23 17:07:00 EDT, Capsule, [facility], Partial fill upon [...] Bilateral leg pain Confirmed Active *BHN/CCA/CC-Matias Vela- [phone]/Health longterm, active care coordination Confirmed Active POTS (postural orthostatic tachycardia syndrome) Confirmed Active Medulloblastoma Confirmed Active RUQ pain Confirmed Active Tachy-sharmin syndrome Confirmed Active Social History Social History Type Response Smoking Status Never smoker; Tobacc o user in household: No entered on: 04/11/16 Sex Patient Care team information Care Team Personnel Name: Vidhya Grace RN Position: [facility] RN Member Role: Primary Care Nurse Name: Sisi Hernandez MD Position: [facility] Physician - Primary Care Member Role: PCP Address: Address: [address] [place] [address] - Name: Lizzette To RN Position: [facility] SN RN Member Role: Primary Care Nurse Name: Karolina Adkins MD Position: [facility] Physician - Primary Care Member Role: Lifetime Consulting Physician Address: Address: [address] [place] [address] [facility] [place] [facility] Name: Isadora Godfrey RN Position: [facility] RN Member Role: Primary Care Nurse Name: Rossy Rowe RN Position: [facility] SN RN Member Role: Primary Care Nurse Name: Cindi Hayward RN Position: [facility] RN Member Role: Primary Care Nurse Name: Bela Mcmahon RN Position: [facility] Sole Tier Member Role: Primary Care Nurse Name: Nicole Hernandez RN Position: [facility] RN Member Role: Primary Care Nurse Name: Zac Castillo RN Position: [facility] ED RN W/OE and Tasks Member Role: Primary Care Nurse Name: Jeanne Grande RN Position: [facility] RN Member Role: Primary Care Nurse Care Team Related Persons Name: BEAR TURNER Address: home [address] [place] [address] Name: BEAR TURNER SECONDARY Address: home [address] [place] [address] Name: ISATU ECKERT Address: home [place], [place] Name: ISAAC VERDE PRIMARY Address: home [address] [place] [address] Name: ADRY DURANT Name: PANCHO JEROME Address: [place] [address]
--- OUTSIDE RECORDS SUMMARY | 2024-04-27 10:07 | XMS_ITS | Continuity of Care Document ---
Author Organization [facility] Address [address], [address] [place] [address]- Care Team Providers Care Manager Foreign Name Role Phone Sisi Hernandez MD Primary Care Physician [place] [facility](s): 08/31/22 - 09/30/22 [facility] [address], [address] [place], [place] [address] Allergies, Adverse Reactions, Alerts [...] 13:12:00 EDT, Aerosol, Route to Pharmacy Electronically, [id number], [facility], ONLY ALBUTEROL HFA, CANCEL... Start Date: 02/15/22 Stop Date: 02/10/23 Status: Ordered Colace sodium 100 mg oral capsule 100 mg, 1, capsule, By Mouth, 2 times a day, PRN, # 30 capsule, Refills 0, Tot. Refills 0, Maintenance, for constipation, 07/31/22 11:03:00 EST, Route to Pharmacy Electronically, [facility], Partial fill upon patient request if [...] 6 Refills, Maintenance, 09/04/22 8:50:00 EST, Solution, [facility], 155, cm, 08/14/22 13:52:00 [...] 0 Refills, Maintenance, 02/15/22 13:10:00 EDT, Aerosol, [facility], new dosage, 155, cm, [...] 07/31/22 11:03:00 EST, Route to Pharmacy Electronically, [facility], Partial fill upon patient request if the prescription is for a schedule... Start Date: 07/31/22 Status: Ordered LORazepam 0.5 mg oral tablet See Instructions, TAKE 1 TABLET BY MOUTH TWO TIMES A DAY NEEDED FOR ANXIETY, # 28 tablet, 2 Refills, Maintenance, 06/06/22 10:45:00 EST, [facility], 155, cm, 04/06/22 14:56:00 EDT, Height, 67.5, kg, 04/06/22 14:56:00 EDT, Dry Weight Start Date: 06/06/22 Status: Ordered Metoprolol Tartrate 50 mg oral tablet 0 Refills, Maintenance, 03/04/20 9:58:00 EDT Start Date: 03/04/20 Status: Ordered MiraLax oral powder for reconstitution = 17 Gm, By Mouth, Daily, dissolve in water before taking, # 255 Gm, 0 Refills, Maintenance, 08/01/22 6:06:00 EST, REC Powder, [facility], Partial fill upon patient request if the prescription is for a schedule II opioid drug., 17 Gm By... Start Date: 08/01/22 Status: Ordered nitroglycerin 0.4 mg sublingual tablet 1 tablet = 0.4 mg, Sublingual, Every 5 minutes, PRN for chest pain, # 100 tablet, 0 Refills, Maintenance, 12/10/17 3:58:08 EDT, Tablet Start Date: 12/10/17 Status: Ordered Ritalin 5 mg oral tablet See Instructions, start 1 tablet By Mouth daily for 3 days and increase by 1 tablet every 3 days tomax 3 times a day (instead of adderall), # 90 tablet, Refills 0, Tot. Refills 0, Maintenance, 08/28/22 10:55:00 EST, Instructions Replace Required Deta... Start Date: 08/28/22 Status: Ordered senna - oral tablet 2 tablet, By Mouth, Daily at bedtime, PRN for constipation, # 80 tablet, 0 Refills, Maintenance, 08/01/22 6:06:00 EST, Tablet, [facility], Partial fill upon patient request if the prescription is for a schedule II opioid drug., 155, cm,... Start Date: 08/01/22 Status: Ordered Symbicort 160mcg/4.5mcg Inhaler 2, puffs, Inhalation, 2 times a day, # 3 each, Refills 5, Tot. Refills 5, Maintenance, 09/27/22 12:00:00 EST, Aerosol, Route to Pharmacy Electronically, [id number], [facility], replaces flovent inhaler, 155, cm,... [...] 07/31/22 11:03:00 EST, Route to Pharmacy Electronically, [facility], Partial fill upon [...] 3 Refills, Maintenance, 06/05/22 14:27:00 EST, Capsule, [facility], Partial fill upon [...] Active Bilateral leg pain Confirmed Active *BHN/CCA/CC-Matias Mirian- [phone]/Health fpc, active care coordination Confirmed Active POTS (postural orthostatic tachycardia syndrome) Confirmed Active Medulloblastoma Confirmed Active RUQ pain Confirmed Active Social History Social History Type Response Smoking Status Never smoker; Tobacc o user in household: No entered on: 04/11/16 Sex Patient Care team information Care Team Personnel Name: Vidhya Grace RN Position: [facility] RN Member Role: Primary Care Nurse Name: Sisi Heranndez MD Position: [facility] Primary Care Physician Member Role: PCP Address: Address: [address] [place] [address] Name: Lizzette To RN Position: [facility] RN Member Role: Primary Care Nurse Name: Karolina Adkins MD Position: [facility] Physician -Physician Practices Member Role: Lifetime Consulting Physician Address: Address: [address] [place] [address] [facility] [address] Name: Isadora Godfrey RN Position: [facility] RN Member Role: Primary Care Nurse Name: Rossy Rowe RN Position: [facility] SN RN Member Role: Primary Care Nurse Name: Cindi Hayward Position: [facility] RN Member Role: Primary Care Nurse Name: Bela Mcmahon RN Position: [facility] Hospital Plasma Processor Member Role: Primary Care Nurse Name: Nicole Hernandez RN Position: [facility] RN Member Role: Primary Care Nurse Name: Zac Castillo RN Position: [facility] ED RN W/OE and Tasks Member Role: Primary Care Nurse Name: Jeanne Grande RN Position: [facility] RN Member Role: Primary Care Nurse Care Team Related Persons Name: KATHRYN TURNERY Address: home [address] [place] [id number] Name: BEAR TURNER SECONDARY Address: home [address] [place] [address] Name: ISATU ECKERT Address: [place] [address] Name: ISAAC VERDE PRIMARY Address: [address] [address] Name: ADRY DURANT Name: PANCHO JEROME Address: [place] [address]
--- OUTSIDE RECORDS SUMMARY | 2024-04-27 10:07 | XMS_ITS | Continuity of Care Document ---
Author Organization [facility] Address [address] [place] [address]- Care Team Providers Care Aviation Safety Inspector Name Role Phone Sisi Hernandez MD Primary Care Physician Encounter [facility] Date(s): 01/08/22 - 02/07/22 [facility] [address] [place], [place] [address] Allergies, Adverse Reactions, Alerts Substance [...] na 2Result Note: wants at pcp Medications acetaminophen 325 mg oral tablet 650 mg, 2, tablet, By Mouth, Every 4 hours, PRN, # 50 tablet, Refills 0, Tot. Refills 0, Maintenance, as needed for pain, 11/16/21 23:51:00 EDT, Route to Pharmacy Electronically, [facility], Partial fill upon patient request if the presc... Start Date: 11/16/21 Status: Ordered albuterol CFC free 90 mcg/inh inhalation aerosol 2, puffs, Inhalation, Every 6 hours, PRN, # 2 each, Refills 11, Tot. Refills 11, Maintenance, 10/05/21 9:52:00 EST, Aerosol, Route to Pharmacy Electronically, [id number], [facility], ONLY ALBUTEROL HFA, CANCEL V... Start Date: 10/05/21 Stop Date: 09/30/22 Status: Ordered Compression Stockings See Instructions, # [...] days, # 3 mL, 6 Refills, Maintenance, 10/03/21 12:18:00 EST, Solution, [facility], 155, cm, 09/27/21 15:08:00 EST, Height, 68.5, kg, 06/03/20 13:18:00 EST, Dry Weight Start Date: 10/03/21 Status: Ordered cyanocobalamin 1000 mcg/ml injectable solution 1 mL = 1,000 mcg, Intramuscular, Every 30 days, # 3 mL, 6 Refills, Maintenance, 06/15/20 11:56:00 EST, Solution, [facility], 155, cm, 06/03/20 13:15:00 EST, Height, 68.5, kg, 06/03/20 13:18:00 EST, Dry Weight Start Date: 06/15/20 Status: Ordered dilTIAZem 240 mg/24 hours oral tablet, extended release 1 tablet = 240 mg, By Mouth, Daily, FURTHER REFILLS BY ADJUDICATION SPECIALIST, # 90 tablet, 0 Refills, Maintenance, 11/27/19 8:57:00 EDT, ER Tablet, [facility], 155, cm, 10/07/19 12:25:00 EDT, Height, 63, kg, 07/01/19 19:58:00 EST, Dry Weight Start Date: 11/27/19 Status: Ordered Flovent HFA 110 mcg/inh inhalation aerosol 2 puffs, Inhalation, 2 times a day, # 12 Gm, 0 Refills, Maintenance, 10/05/21 13:23:00 EST, Aerosol, [facility], Partial fill upon patient request if the prescription is for a schedule II opioid drug., 155, cm, 09/27/21 15:08:00 EST, Hei... Start Date: 10/05/21 Status: Ordered Freestyle Lancets See Instructions, # [...] 03/04/20 Stop Date: 08/31/20 Status: Ordered ibuprofen 400 mg oral tablet 400 mg, 1, tablet, By Mouth, Every 4 hours, PRN, # 60 tablet, Refills 0, Tot. Refills 0, Maintenance, for pain, 11/16/21 23:51:00 EDT, Route to Pharmacy Electronically, [facility], Partial fill upon patient request if the prescription is... Start Date: 11/16/21 Status: Ordered LORazepam 0.5 mg oral tablet See Instructions, TAKE 1 TABLET BY MOUTH TWO TIMES A DAY NEEDED FOR ANXIETY, # 28 tablet, 2 Refills, Maintenance, 05/06/20 15:17:00 EDT, [facility], 155, cm, 05/03/20 [...] EDT, Tablet Start Date: 12/10/17 Status: Ordered ondansetron 4 mg oral tablet, disintegrating 1 tablet = 4 mg, By Mouth, Every 8 hours, PRN as needed for nausea/vomiting, # 15 tablet, 0 Refills, Maintenance, 11/16/21 23:51:00 EDT, DIS Tablet, [facility], Partial fill upon patient request if the prescription is for a schedule II o... Start Date: 11/16/21 Status: Ordered Peridex 0.12% liquid 15 mL = 0.018 Gm, By Mouth, 2 times a day, # 420 mL, 0 Refills, Maintenance, 01/18/22 8:47:00 EDT, Liquid, [facility], Partial fill upon patient request if the prescription is for a schedule II opioid drug., 15 mL By Mouth 2 times a day,... Start Date: 01/18/22 Stop Date: 02/01/22 Status: Ordered syringe and needles syringe and needles, See Instructions, # 12 Unknown, Refills 3, Tot. Refills 3, Maintenance, syringe 3cc needles 25 g X 5/8 inches for use with b12, 03/04/20 9:54:00 EDT, Compound, 155, cm, 10/07/19 12:25:00 EDT, Height, 63, kg, 07/01/19 19:58:00 EST... Start Date: 03/04/20 Status: Ordered Verapamil 0 Refills, Maintenance, 12/08/21 10:49:00 EDT, Partial fill upon patient request if the prescription is for a schedule II opioid drug. Start Date: 12/08/21 Status: Ordered Vitamin D3 1000 intl units oral capsule 1 capsule = 25 mcg, By Mouth, Daily, # 100 capsule, 3 Refills, Maintenance, 10/25/21 11:13:00 EDT, Capsule, [facility], Partial fill upon patient request if the prescription is for a schedule II opioid drug., 155, cm, 10/25/21 11:00:00 E... Start Date: 10/25/21 Status: Ordered Problem List Condition Effective Dates Status Health Status Inform ant Abdominal pain(Confirmed) Active Adjustment disorder with mix ed anxiety and depressed mood(Confirmed) 2015 Active Anxiety(Confirmed) Active Asthma(Confirmed) Active Back pain(Confirmed) Active Breast lump(Confirmed) Active Narcolepsy and cataplexy(Confirmed) Active Chronic insomnia(Confirmed) Active B12 deficiency(Confirmed) Active Cognitive disorder(Confirmed) Active Somnolence, daytime(Confirmed) Active Fatigue(Confirmed) Active GERD (gastroesophageal reflu x disease)(Confirmed) Active Hypoglycemia, unspecified(Confirmed) Active IBS (irritable bowel syndrome)(Confirmed) 01/23/16 Active Memory change(Confirmed) Active Near syncope(Confirmed) Active Bilateral leg pain(Confirmed) Active *BHN/CCA/CC-Matisa Vela- [phone]/Health half-way, active care coordination(Confirmed) Active POTS (postural orthostatic t achycardia syndrome)(Confirmed) Active Medulloblastoma(Confirmed) Active RUQ pain(Confirmed) Active Social History Social History Type Response Smoking Status Never smoker; Tobacc o user in household: No entered on: 04/11/16 Sex Female
--- OUTSIDE RECORDS SUMMARY | 2024-04-27 10:07 | XMS_ITS | Continuity of Care Document ---
Author Organization [facility] Address [address] [place] [address]- Care Team Providers Care Lockstitch Collar Setter Name Role Phone Sisi Hernandez MD Primary Care Physician [phone] [id number] - [facility]05[facility] [address] [place], [place] [address] Attending Physician: Not on Staff, Attending MD Referring Physician: Sisi Hernandez MD Allergies, [...] 12/22/20 12:53:00 EDT, Route to Pharmacy Electronically, [facility] Tablet, Partial fill upon patient request if the... Start Date: 12/22/20 Stop Date: 01/21/21 Status: Ordered albuterol CFC free 90 mcg/inh inhalation aerosol 2, puffs, Inhalation, Every 6 hours, PRN, # 2 each, Refills 11, Tot. Refills 11, Maintenance, 12/02/20 8:50:00 EDT, Aerosol, Route to Pharmacy Electronically, [id number], [facility], 155, cm, 06/03/20 13:15:00 E... Start [...] 6 Refills, Maintenance, 06/15/20 11:56:00 EST, Solution, [facility], 155, cm, 06/03/20 13:15:00 EST, Height, 68.5, kg, 06/03/20 13:18:00 EST, Dry Weight Start Date: 06/15/20 Status: Ordered dilTIAZem 240 mg/24 hours oral tablet, extended release 1 tablet = 240 mg, By Mouth, Daily, FURTHER REFILLS BY SILVERWARE SUPERVISOR, # 90 tablet, 0 Refills, Maintenance, 11/27/19 8:57:00 EDT, ER Tablet, [facility], 155, cm, 10/07/19 12:25:00 EDT, Height, [...] tablet, 2 Refills, Maintenance, 05/06/20 15:17:00 EDT, [facility], 155, cm, 05/03/20 18:55:00 EDT, [...] 15:30:53 EST, Aerosol, Route to Pharmacy Electronically, [id number]... Start Date: 09/12/18 Stop Date: 02/09/19 Status: Ordered ProAir HFA 90 mcg/inh inhalation aerosol with adapter 2, puffs, Inhalation, Every 4 hours, PRN, use with spacer chamber BRAND NAME MEDICALLY NECESSARY, #8.5 Gm, Refills 0, Tot. Refills 0, Maintenance, 12/05/20 15:38:00 EDT, Aerosol, Route to Pharmacy Electronically, [id number]... Start Date: 12/05/20 Status: Ordered ramelteon 8 mg oral tablet 1 tablet = 8 mg, By Mouth, Daily at bedtime, # 30 tablet, 11 Refills, Maintenance, 12/02/20 8:48:00EDT, [facility], Partial fill upon patient [...] 2 Refills, Maintenance, 08/04/20 12:39:00 EST, Capsule, [facility], Partial fill upon patient [...] Active Bilateral leg pain(Confirmed) Active *BHN/CCA/CC-Matias Vela- [phone]/Health correction, active care coordination(Confirmed) Active POTS (postural orthostatic t achycardia syndrome)(Confirmed) Active Medulloblastoma(Confirmed) Active RUQ pain(Confirmed) Active Viral URI(Confirmed) Active Social History Social History Type Response Smoking Status Never smoker; Tobacc o user in household: No entered on: 04/11/16 Sex
--- OUTSIDE RECORDS SUMMARY | 2024-04-27 10:07 | XMS_ITS | Continuity of Care Document ---
Author Organization [facility] Address [address], [address] [place] [address]- Care Team Providers Care Retail Sales Merchandiser Name Role Phone Sisi Hernandez MD Primary Care Physician Encounter [facility] [place] Date(s): 10/09/22 - 10/16/22 [facility] [address], 4th [address] [place], [place] [address] Attending Physician: Abby Villalpadno MD Allergies, Adverse Reactions, Alerts Substance Reaction [...] 13:12:00 EDT, Aerosol, Route to Pharmacy Electronically, [id number], [facility], ONLY ALBUTEROL HFA, CANCEL... Start Date: 02/15/22 Stop Date: 02/10/23 Status: Ordered Colace sodium 100 mg oral capsule 100 mg, 1, capsule, By Mouth, 2 times a day, PRN, # 30 capsule, Refills 0, Tot. Refills 0, Maintenance, for constipation, 07/31/22 11:03:00 EST, Route to Pharmacy Electronically, [facility], Partial fill upon patient [...] 6 Refills, Maintenance, 09/04/22 8:50:00 EST, Solution, [facility], 155, cm, 08/14/22 13:52:00 EST, Height, 68.1, kg, 08/14/22 13:52:00 EST, Dry Weight Start Date: 09/04/22 Status: Ordered esomeprazole 40 mg oral enteric coated capsule TAKE 1 CAPSULE BY MOUTH EVERY DAY Start Date: 07/12/22 Status: Ordered Flovent HFA 220 mcg/inh inhalation aerosol 2 puffs, Inhalation, 2 times a day, new dosage, # 12 Gm, 0 Refills, Maintenance, 02/15/22 13:10:00 EDT, Aerosol, [facility], new dosage, 155, cm, [...] 07/31/22 11:03:00 EST, Route to Pharmacy Electronically, [facility], Partial fill upon patient request if the prescription is for a schedule... Start Date: 07/31/22 Status: Ordered LORazepam 0.5 mg oral tablet See Instructions, TAKE 1 TABLET BY MOUTH TWO TIMES A DAY NEEDED FOR ANXIETY, # 28 tablet, 2 Refills, Maintenance, 06/06/22 10:45:00 EST, [facility], 155, cm, 04/06/22 14:56:00 [...] Refills, Maintenance, 08/01/22 6:06:00 EST, REC Powder, [facility], Partial fill upon patient request if [...] 0 Refills, Maintenance, 08/01/22 6:06:00 EST, Tablet, [facility], Partial fill upon patient request if the prescription is for a schedule II opioid drug., 155, cm,... Start Date: 08/01/22 Status: Ordered Symbicort 160mcg/4.5mcg Inhaler 2, puffs, Inhalation, 2 times a day, # 3 each, Refills 5, Tot. Refills 5, Maintenance, 09/27/22 12:00:00 EST, Aerosol, Route to Pharmacy Electronically, [id number], [facility], replaces flovent inhaler, 155, cm,... [...] 07/31/22 11:03:00 EST, Route to Pharmacy Electronically, [facility], Partial fill upon patient [...] 3 Refills, Maintenance, 06/05/22 14:27:00 EST, Capsule, [facility], Partial fill upon patient [...] Bilateral leg pain Confirmed Active *BHN/CCA/CC-[facility]- [phone]/[facility], active care coordination Confirmed Active POTS (postural orthostatic tachycardia syndrome) Confirmed Active Medulloblastoma Confirmed Active RUQ pain Confirmed Active Social History Social History Type Response Smoking Status Never smoker; Tobacc o user in household: No entered on: 04/11/16 Sex Patient Care team information Care Team Personnel Name: Vidhya Grace RN Position: [facility] RN Member Role: Primary Care Nurse Name: Sisi Hernandez MD Position: [facility] Primary Care Physician Member Role: PCP Address: Address: [address] [place] [id number] Name: Lizzette To RN Position: [facility] RN Member Role: Primary Care Nurse Name: Karolina Adkins MD Position: [facility] Physician -Physician Practices Member Role: Lifetime Consulting Physician Address: Address: [address] [place] [address] [facility] [place], [place] [address] Name: Isadora Godfrey RN Position: [facility] RN Member Role: Primary Care Nurse Name: Rossy Rowe RN Position: [facility] SN RN Member Role: Primary Care Nurse Name: Cindi Hayward Position: [facility] RN Member Role: Primary Care Nurse Name: Bela Mcmahon RN Position: [facility] Hospital Bartenders Member Role: Primary Care Nurse Name: Nicole Hernandez RN Position: [facility] RN Member Role: Primary Care Nurse Name: Zac Castillo RN Position: [facility] ED RN W/OE and Tasks Member Role: Primary Care Nurse Name: Jeanne Grande RN Position: [facility] RN Member Role: Primary Care Nurse Care Team Related Persons Name: BEAR TURNER Address: home [address] [place], [place] Name: JOHNNY BEAR SECONDARY Address: home [address] [place], [place] Name: ISATU ECKERT Address: [place] [address] Name: ISAAC VERDE PRIMARY Address: [address] [address] Name: ADRY DURANT Name: PANCHO JEROME Address: [place] [address]
--- OUTSIDE RECORDS SUMMARY | 2024-04-27 10:07 | XMS_ITS | Continuity of Care Document ---
Author Organization [facility] Address [address] [place] [address]- Care Team Providers Care Bulldozer Press Operator Name Role Phone Mary KEATING, Sisi Almanza Primary Care Physician [place] [facility] [place](s): 03/09/24 - 04/08/24 [facility] [address] [place], [place] [address] Allergies, Adverse Reactions, Alerts Substance Reaction [...] 13:12:00 EDT, Aerosol, Route to Pharmacy Electronically, [id number], [facility], ONLY ALBUTEROL HFA, CANCEL... Start Date: 02/15/22 Stop Date: 02/10/23 Status: Ordered Colace sodium 100 mg oral capsule 100 mg, 1, capsule, By Mouth, 2 times a day, PRN, # 180 capsule, Refills 3, Tot. Refills 3, Maintenance, for constipation, 08/09/23 14:49:00 EST, Route to Pharmacy Electronically, [facility], Partial fill upon patient request [...] 11 Refills, Maintenance, 02/06/24 12:13:00 EDT, Solution, [facility], dose change, 155, cm, 02/06/24 [...] 07/31/22 11:03:00 EST, Route to Pharmacy Electronically, [facility], Partial fill upon patient request if the prescription is for a schedule... Start Date: 07/31/22 Status: Ordered ketoconazole 1% topical shampoo See Instructions, Apply 5 to 10 mL to wet scalp, lather, leave on 3 to 5 minutes, and rinse; apply twice weekly for 2 to 4 weeks., # 200 mL, 5 Refills, Maintenance, 11/22/23 15:46:00 EDT, [facility], Partial fill upon patient request if... Start Date: 11/22/23 Status: Ordered ketoconazole 2% topical shampoo 1 application, Topically, Once, Apply 5 to 10 mL to wet scalp, lather, leave on 3 to 5 minutes, andrinse; apply weekly for 2 to 4 weeks., # 120 mL, 4 Refills, Soft Stop, 11/25/23 12:40:00 EDT, Shampoo, [facility], Partial fill upon pat... Start Date: 11/25/23 Status: Ordered LORazepam 0.5 mg oral tablet See Instructions, TAKE 1 TABLET BY MOUTH TWO TIMES A DAY NEEDED FOR ANXIETY, # 28 tablet, 2 Refills, Maintenance, 02/06/24 12:19:00 EDT, [facility], 155, cm, 02/06/24 11:49:00 EDT, Height, [...] 0 Refills, Maintenance, 08/01/22 6:06:00 EST, Tablet, [facility], Partial fill upon patient request if the prescription is for a schedule II opioid drug., 155, cm,... Start Date: 08/01/22 Status: Ordered Symbicort 160mcg/4.5mcg Inhaler 2, puffs, Inhalation, 2 times a day, # 3 each, Refills 5, Tot. Refills 5, Maintenance, 02/06/24 12:14:00 EDT, Aerosol, Route to Pharmacy Electronically, [id number], [facility], replaces flovent inhaler, 155, cm,... [...] 07/31/22 11:03:00 EST, Route to Pharmacy Electronically, [facility], Partial fill upon patient request [...] Refills, Maintenance, 08/14/23 13:38:00 EST, Chew Tablet, [facility], Partial fill upon patient request if the prescription is for a schedule II opioid drug., 155, cm, 08/14/23 13:0... Start Date: 08/14/23 Status: Ordered Vitamin D3 50,000 intl units oral capsule 1 capsule = 1,250 mcg, By Mouth, Every week, # 13 capsule, 1 Refills, Maintenance, 05/17/23 17:07:00 EDT, Capsule, [facility], Partial fill upon patient request [...] 0 Refills, Maintenance, 11/01/23 14:07:00 EDT, Capsule, [facility], Partial fill u... 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 Social History Social History Type Response Smoking Status Never smoker; Tobacc o user in household: No entered on: 04/11/16 Sex Patient Care team information Care Team Personnel Name: Vidhya Grace RN Position: [facility] RN Member Role: Primary Care Nurse Name: Sisi Hernandez MD Position: [facility] Physician - Primary Care Member Role: PCP Address: Address: [address] [place] [address] Name: Lizzette To RN Position: [facility] RN Member Role: Primary Care Nurse Name: Karolina Adkins MD Position: [facility] Physician - Primary Care Member Role: Lifetime Consulting Physician Address: Address: [address] [place] [address] [facility] [address] Name: Isadora Godfrey RN Position: S RN Member Role: Primary Care Nurse Name: Rossy Rowe RN Position: [facility] SN RN Member Role: Primary Care Nurse Name: Cindi Hayward RN Position: [facility] RN Member Role: Primary Care Nurse Name: Bela Mcmahon RN Position: [facility] Hospital Gang Saw Operator Member Role: Primary Care Nurse Name: Nicole Hernandez RN Position: [facility] RN Member Role: Primary Care Nurse Name: Zac Castillo RN Position: [facility] ED RN W/OE and Tasks Member Role: Primary Care Nurse Name: Jeanne Grande RN Position: [facility] RN Member Role: Primary Care Nurse Care Team Related Persons Name: JOHNNYBAER Address: home [address] [place] [address] Name: BEAR TURNER SECONDARY Address: home [address] [place] [address] Name: ISATU ECKERT Address: [place] [address] Name: ISAAC VERDE PRIMARY Address: [address] [address] Name: ADRY DURANT Name: PANCHO JEROME Address: [place] [address]
--- OUTSIDE RECORDS SUMMARY | 2024-04-27 10:07 | XMS_ITS | Continuity of Care Document ---
Author Organization [facility] Address [address] [place] [address]- Care Team Providers Care Cloth Feeder Name Role Phone Sisi Hernandez MD Primary Care Physician En[place] [facility] [place] Date(s): 01/14/21 - 05/14/21 [facility] [address] [place], [place] [address] Attending Physician: Sisi Hernandez MD Allergies, Adverse [...] 8:50:00 EDT, Aerosol, Route to Pharmacy Electronically, [id number], [facility], 155, cm, 06/03/20 13:15:00 E... Start Date: 12/02/20 Stop Date: 11/27/21 Status: Ordered armodafinil 150 mg oral tablet 1 tablet = 150 mg, By Mouth, Daily, # 14 tablet, 0 Refills, Maintenance, 05/12/21 13:42:00 EDT, Tablet, [facility], Partial fill upon patient request if the prescription is for a schedule II opioid drug., 155, cm, 05/12/21 13:20:00 EDT,... Start Date: 05/12/21 Status: Ordered Compression Stockings See Instructions, # [...] 6 Refills, Maintenance, 06/15/20 11:56:00 EST, Solution, [facility], 155, cm, 06/03/20 13:15:00 EST, Height, 68.5, kg, 06/03/20 13:18:00 EST, Dry Weight Start Date: 06/15/20 Status: Ordered dilTIAZem 240 mg/24 hours oral tablet, extended release 1 tablet = 240 mg, By Mouth, Daily, FURTHER REFILLS BY THUMB SEWER, # 90 tablet, 0 Refills, Maintenance, 11/27/19 8:57:00 EDT, ER Tablet, [facility], 155, cm, 10/07/19 12:25:00 EDT, [...] tablet, 2 Refills, Maintenance, 05/06/20 15:17:00 EDT, [facility], 155, cm, 05/03/20 18:55:00 EDT, Height, [...] 15:30:53 EST, Aerosol, Route to Pharmacy Electronically, [id number]... Start Date: 09/12/18 Stop Date: 02/09/19 Status: Ordered ProAir HFA 90 mcg/inh inhalation aerosol with adapter 2, puffs, Inhalation, Every 4 hours, PRN, use with spacer chamber BRAND NAME MEDICALLY NECESSARY, #8.5 Gm, Refills 0, Tot. Refills 0, Maintenance, 12/05/20 15:38:00 EDT, Aerosol, Route to Pharmacy Electronically, [id number]... Start Date: 12/05/20 Status: Ordered syringe and needles syringe and [...] 2 Refills, Maintenance, 08/04/20 12:39:00 EST, Capsule, [facility], Partial fill upon patient request [...] Active Bilateral leg pain(Confirmed) Active *BHN/CCA/CC-[facility]- [phone]/Health nursing [facility], active care coordination(Confirmed) Active POTS (postural orthostatic t achycardia syndrome)(Confirmed) Active Medulloblastoma(Confirmed) Active RUQ pain(Confirmed) Active Viral URI(Confirmed) Active Social History Social History Type Response Smoking Status Never smoker; Tobacc o user in household: No entered on: 04/11/16 Sex
--- OUTSIDE RECORDS SUMMARY | 2024-04-27 10:07 | XMS_ITS | Continuity of Care Document ---
Author Organization [facility] Address [address] [place] [address]- Care Team Providers Care Infrastructure Architect Name Role Phone Sisi Hernandez MD Primary Care Physician [place] [facility] [place]06[place]21 - 03/08/21 [facility] [address] [place], [place] [address] Allergies, Adverse Reactions, Alerts Substance Reaction [...] 8:50:00 EDT, Aerosol, Route to Pharmacy Electronically, [id number], [facility], 155, cm, 06/03/20 13:15:00 E... [...] 6 Refills, Maintenance, 06/15/20 11:56:00 EST, Solution, [facility], 155, cm, 06/03/20 13:15:00 EST, Height, 68.5, kg, 06/03/20 13:18:00 EST, Dry Weight Start Date: 06/15/20 Status: Ordered dilTIAZem 240 mg/24 hours oral tablet, extended release 1 tablet = 240 mg, By Mouth, Daily, FURTHER REFILLS BY PARKING ASSISTANT, # 90 tablet, 0 Refills, Maintenance, 11/27/19 8:57:00 EDT, [facility], 155, cm, 10/07/19 12:25:00 EDT, Height, [...] tablet, 2 Refills, Maintenance, 05/06/20 15:17:00 EDT, [facility], 155, cm, 05/03/20 18:55:00 EDT, Height, [...] 15:30:53 EST, Aerosol, Route to Pharmacy Electronically, [id number]... Start Date: 09/12/18 Stop Date: 02/09/19 Status: Ordered ProAir HFA 90 mcg/inh inhalation aerosol with adapter 2, puffs, Inhalation, Every 4 hours, PRN, use with spacer chamber BRAND NAME MEDICALLY NECESSARY, #8.5 Gm, Refills 0, Tot. Refills 0, Maintenance, 12/05/20 15:38:00 EDT, Aerosol, Route to Pharmacy Electronically, [id number]... Start Date: 12/05/20 Status: Ordered ramelteon 8 mg oral tablet 1 tablet = 8 mg, By Mouth, Daily at bedtime, # 30 tablet, 11 Refills, Maintenance, 12/02/20 8:48:00EDT, [facility], Partial fill upon [...] 2 Refills, Maintenance, 08/04/20 12:39:00 EST, Capsule, [facility], Partial fill upon [...] Active Bilateral leg pain(Confirmed) Active *BHN/CCA/CC-[facility]- [phone]/Health [facility], active care coordination(Confirmed) Active POTS (postural orthostatic t achycardia syndrome)(Confirmed) Active Medulloblastoma(Confirmed) Active RUQ pain(Confirmed) Active Viral URI(Confirmed) Active Social History Social History Type Response Smoking Status Never smoker; Tobacc o user in household: No entered on: 04/11/16 Sex
--- OUTSIDE RECORDS SUMMARY | 2024-04-27 10:07 | XMS_ITS | Continuity of Care Document ---
Author Organization [facility] Address Unknown Care Team Providers Care Protective Signal Operations Supervisor Name Role Phone Mary KEATING, Sisi Almanza Primary Care Physician Encounter [facility] [place] Date(s): 09/04/21 - 10/04/21 [facility] Attending Physician: Angel Gomez Admitting Physician: Angel Gomez Referring Physician: AdmtrAngel Allergies, Adverse Reactions, Alerts Substance Reaction Severity [...] 2Result Note: wants at pcp Medications Adderall 5 mg oral tablet 1 tablet = 5 mg, By Mouth, 3 times a day, to take with long acting, # 90 tablet, 0 Refills, Maintenance, 09/27/21 15:38:00 EST, Tablet, [facility], Partial fill upon patient request if the prescription is for a schedule II opioid drug.,... Start Date: 09/27/21 Status: Ordered Adderall XR 20 mg oral capsule, extended release 1 capsule = 20 mg, By Mouth, 2 times a day, to take with short acting 5 mg. changing from adderall XR 15- need to fill now, # 60 capsule, 0 Refills, Maintenance, 09/27/21 15:31:00 EST, ER Capsule, [facility], Partial fill upon patient r... Start Date: 09/27/21 Status: Ordered albuterol CFC free 90 mcg/inh inhalation aerosol 2, puffs, Inhalation, Every 6 hours, PRN, # 2 each, Refills 11, Tot. Refills 11, Maintenance, 12/02/20 8:50:00 EDT, Aerosol, Route to Pharmacy Electronically, [id number], [facility], 155, cm, 06/03/20 13:15:00 E... [...] 6 Refills, Maintenance, 10/03/21 12:18:00 EST, Solution, [facility], 155, cm, 09/27/21 15:08:00 EST, Height, 68.5, kg, 06/03/20 13:18:00 EST, Dry Weight Start Date: 10/03/21 Status: Ordered cyanocobalamin 1000 mcg/ml injectable solution 1 mL = 1,000 mcg, Intramuscular, Every 30 days, # 3 mL, 6 Refills, Maintenance, 06/15/20 11:56:00 EST, Solution, [facility], 155, cm, 06/03/20 13:15:00 EST, Height, 68.5, kg, 06/03/20 13:18:00 EST, Dry Weight Start Date: 06/15/20 Status: Ordered Diflucan 150 mg oral tablet 1 tablet = 150 mg, By Mouth, Every 48 hours, # 2 tablet, 0 Refills, Soft Stop, 07/31/21 10:46:00 EST, Tablet, [facility], Partial fill upon patient request if the prescription is for a schedule II opioid drug., 155, cm, 06/09/21 14:21:00... Start Date: 07/31/21 Status: Ordered dilTIAZem 240 mg/24 hours oral tablet, extended release 1 tablet = 240 mg, By Mouth, Daily, FURTHER REFILLS BY SINGLE NEEDLE OPERATOR, # 90 tablet, 0 Refills, Maintenance, 11/27/19 8:57:00 EDT, ER Tablet, [facility], 155, cm, 10/07/19 12:25:00 EDT, [...] tablet, 2 Refills, Maintenance, 05/06/20 15:17:00 EDT, [facility], 155, cm, 05/03/20 18:55:00 [...] 15:30:53 EST, Aerosol, Route to Pharmacy Electronically, [id number]... Start Date: 09/12/18 Stop Date: 02/09/19 Status: Ordered ProAir HFA 90 mcg/inh inhalation aerosol with adapter 2, puffs, Inhalation, Every 4 hours, PRN, use with spacer chamber BRAND NAME MEDICALLY NECESSARY, #8.5 Gm, Refills 3, Tot. Refills 3, Maintenance, 09/29/21 12:08:00 EST, Aerosol, Route to Pharmacy Electronically, [id number]... Start Date: 09/29/21 Status: Ordered Sunosi 75 mg oral tablet See Instructions, 1 tablet By Mouth Daily in AM X 3 days then 2 tablet daily (samples given), 0 Refills, Maintenance, 05/23/21 15:00:00 EDT, Partial fill upon patient request if the prescription is for a schedule II opioid drug. Start Date: 05/23/21 Status: Ordered syringe and needles syringe and needles, See Instructions, # 12 Unknown, Refills 3, Tot. Refills 3, Maintenance, syringe 3cc needles 25 g X 5/8 inches for use with b12, 03/04/20 9:54:00 EDT, Compound, 155, cm, 10/07/19 12:25:00 EDT, Height, 63, kg, 07/01/19 19:58:00 EST... Start Date: 03/04/20 Status: Ordered Ventolin HFA 108 mcg/inh inhalation aerosol with adapter 2 puffs, Inhalation, Every 6 hours, PRN for wheezing, # 18 Gm, 3 Refills, Maintenance, 10/03/21 12:42:00 EST, Aerosol, [facility], Partial fill upon patient request if the prescription is for a schedule II opioid drug., 155, cm, 09/27/21... Start Date: 10/03/21 Status: Ordered Vitamin D3 1000 intl units oral capsule 1 capsule = 1,000 International_Units, By Mouth, Daily, # 100 capsule, 2 Refills, Maintenance, 08/04/20 12:39:00 EST, Capsule, [facility], Partial fill upon patient request [...] vein thrombosis(Confirmed) Active Right leg DVT(Confirmed) Active Fatigue(Confirmed) Active GERD (gastroesophageal reflu x disease)(Confirmed) Active Hypoglycemia, unspecified(Confirmed) Active IBS (irritable bowel syndrome)(Confirmed) 01/23/16 Active Memory change(Confirmed) Active Near syncope(Confirmed) Active Bilateral leg pain(Confirmed) Active *BHN/CCA/CC-[facility]- [phone]/Health [facility], active care coordination(Confirmed) Active POTS (postural orthostatic t achycardia syndrome)(Confirmed) Active Medulloblastoma(Confirmed) Active RUQ pain(Confirmed) Active Social History Social History Type Response Smoking Status Never smoker; Tobacc o user in household: No entered on: 04/11/16 Sex Female
--- OUTSIDE RECORDS SUMMARY | 2024-04-27 10:07 | XMS_ITS | Continuity of Care Document ---
Author Organization [facility] Address [address] [place] [address]- Care Team Providers Care Watch Inspector Name Role Phone Sisi Hernandez MD Primary Care Physician [place] [facility] [place] [facility] [place] 08/02/23 - 09/01/23 [facility] [address] [place], [place] [address] Allergies, Adverse Reactions, Alerts Substance Reaction Severity Status cefoxitin Cough Tightness in throat Active Fruit 1 rash Allergy to fruit Active Sertraline Hydrochloride skin burning burning Active vancomycin Throat itching Itching of skin [...] Refills, Maintenance, 12/21/22 14:40:00 EDT, ER Capsule, [facility], Partial fill upon patient request if the prescription is for a schedule II opioid drug., 155, cm, 12/05/22 11:... Start Date: 12/21/22 Status: Ordered albuterol CFC free 90 mcg/inh inhalation aerosol 2, puffs, Inhalation, Every 6 hours, PRN, # 2 each, Refills 11, Tot. Refills 11, Maintenance, 02/15/22 13:12:00 EDT, Aerosol, Route to Pharmacy Electronically, [id number], [facility], ONLY ALBUTEROL HFA, CANCEL... Start Date: 02/15/22 Stop Date: 02/10/23 Status: Ordered Colace sodium 100 mg oral capsule 100 mg, 1, capsule, By Mouth, 2 times a day, PRN, # 180 capsule, Refills 3, Tot. Refills 3, Maintenance, for constipation, 08/09/23 14:49:00 EST, Route to Pharmacy Electronically, [facility], Partial fill upon patient [...] 6 Refills, Maintenance, 08/07/23 13:45:00 EST, Solution, [facility], 155, cm, 06/07/23 20:58:00 [...] 0 Refills, Maintenance, 02/15/22 13:10:00 EDT, Aerosol, [facility], new dosage, 155, cm, [...] 07/31/22 11:03:00 EST, Route to Pharmacy Electronically, [facility], Partial fill upon patient request if the prescription is for a schedule... Start Date: 07/31/22 Status: Ordered LORazepam 0.5 mg oral tablet See Instructions, TAKE 1 TABLET BY MOUTH TWO TIMES A DAY NEEDED FOR ANXIETY, # 28 tablet, 2 Refills, Maintenance, 12/05/22 12:25:00 EDT, [facility], 155, cm, 12/05/22 [...] 0 Refills, Maintenance, 08/01/22 6:06:00 EST, Tablet, [facility], Partial fill upon patient request if the prescription is for a schedule II opioid drug., 155, cm,... Start Date: 08/01/22 Status: Ordered Symbicort 160mcg/4.5mcg Inhaler 2, puffs, Inhalation, 2 times a day, # 3 each, Refills 5, Tot. Refills 5, Maintenance, 09/27/22 12:00:00 EST, Aerosol, Route to Pharmacy Electronically, [id number], [facility], replaces flovent inhaler, 155, cm,... [...] 07/31/22 11:03:00 EST, Route to Pharmacy Electronically, [facility], Partial fill upon patient [...] Refills, Maintenance, 08/14/23 13:38:00 EST, Chew Tablet, [facility], Partial fill upon patient request if the prescription is for a schedule II opioid drug., 155, cm, 08/14/23 13:0... Start Date: 08/14/23 Status: Ordered Vitamin D3 50,000 intl units oral capsule 1 capsule = 1,250 mcg, By Mouth, Every week, # 13 capsule, 1 Refills, Maintenance, 05/17/23 17:07:00 EDT, Capsule, [facility], Partial fill upon patient [...] Bilateral leg pain Confirmed Active *BHN/CCA/CC-[facility]- [phone]/Health correction, active care coordination Confirmed Active POTS (postural orthostatic tachycardia syndrome) Confirmed Active Medulloblastoma Confirmed Active RUQ pain Confirmed Active Tachy-sharmin syndrome Confirmed Active Social History Social History Type Response Smoking Status Never smoker; Tobacc o user in household: No entered on: 04/11/16 Sex Patient Care team information Care Team Personnel Name: Vidhya Grace RN Position: [facility] RN Member Role: Primary Care Nurse Name: Sisi Hernandez MD Position: [facility] Physician - Primary Care Member Role: PCP Address: Address: [address] [place] [address] - Name: Lizzette To RN Position: [facility] SN RN Member Role: Primary Care Nurse Name: Karolina Adkins MD Position: [facility] Physician - Primary Care Member Role: Lifetime Consulting Physician Address: Address: [address] [place] [address] [facility] [place], [place] [facility] Name: Isadora Godfrey RN Position: [facility] RN Member Role: Primary Care Nurse Name: Rossy Rowe RN Position: [facility] SN RN Member Role: Primary Care Nurse Name: Cindi Hayward RN Position: [facility] RN Member Role: Primary Care Nurse Name: Bela Mcmahon RN Position: [facility] Uniform Cap Operator Member Role: Primary Care Nurse Name: Nicole Hernandez RN Position: [facility] RN Member Role: Primary Care Nurse Name: Zac Castillo RN Position: [facility] ED RN W/OE and Tasks Member Role: Primary Care Nurse Name: Jeanne Grande RN Position: [facility] RN Member Role: Primary Care Nurse Care Team Related Persons Name: BEAR TURNER Address: home [address] [place] [address] Name: BEAR TURNER SECONDARY Address: home [address] [place] [address] Name: ISAUT ECKERT Address: home [place], [place] Name: ISAAC VERDE PRIMARY Address: home [address] [place] [address] Name: ADRY DURANT Name: PANCHO [place]OME Address: [place] [address]
--- OUTSIDE RECORDS SUMMARY | 2024-04-27 10:07 | XMS_ITS | Continuity of Care Document ---
Author Organization [facility] Address [address] [facility], [address] Floor, [address] [place] [address]- Care Team Providers Care Cleaner Wall Name Role Phone Sisi Hernandez MD Primary Care Physician [place] [facility] [place]/22 [facility] [address], [address], [address] [place] [address]- Attending Physician: Angel Gomez Admitting Physician: AdmAngel can Referring Physician: AdmtrAngel Allergies, Adverse Reactions, Alerts [...] 11/16/21 23:51:00 EDT, Route to Pharmacy Electronically, [facility], Partial fill upon patient request if the presc... Start Date: 11/16/21 Status: Ordered albuterol CFC free 90 mcg/inh inhalation aerosol 2, puffs, Inhalation, Every 6 hours, PRN, # 2 each, Refills 11, Tot. Refills 11, Maintenance, 02/15/22 13:12:00 EDT, Aerosol, Route to Pharmacy Electronically, [id number], [facility], ONLY ALBUTEROL HFA, CANCEL... Start Date: 02/15/22 Stop Date: 02/10/23 Status: Ordered Compression Stockings See Instructions, # [...] 6 Refills, Maintenance, 10/03/21 12:18:00 EST, Solution, [facility], 155, cm, 09/27/21 15:08:00 EST, Height, 68.5, kg, 06/03/20 13:18:00 EST, Dry Weight Start Date: 10/03/21 Status: Ordered cyanocobalamin 1000 mcg/ml injectable solution 1 mL = 1,000 mcg, Intramuscular, Every 30 days, # 3 mL, 6 Refills, Maintenance, 06/15/20 11:56:00 EST, Solution, [facility], 155, cm, 06/03/20 13:15:00 EST, Height, 68.5, kg, 06/03/20 13:18:00 EST, Dry Weight Start Date: 06/15/20 Status: Ordered dilTIAZem 240 mg/24 hours oral tablet, extended release 1 tablet = 240 mg, By Mouth, Daily, FURTHER REFILLS BY STRIPPER LATEX, # 90 tablet, 0 Refills, Maintenance, 11/27/19 8:57:00 EDT, ER Tablet, [facility] 3, 155, cm, 10/07/19 12:25:00 EDT, Height, 63, kg, 07/01/19 19:58:00 EST, Dry Weight Start Date: 11/27/19 Status: Ordered Flovent HFA 220 mcg/inh inhalation aerosol 2 puffs, Inhalation, 2 times a day, new dosage, # 12 Gm, 0 Refills, Maintenance, 02/15/22 13:10:00 EDT, Aerosol, [facility], new dosage, 155, cm, [...] 11/16/21 23:51:00 EDT, Route to Pharmacy Electronically, [facility], Partial fill upon patient request if the prescription is... Start Date: 11/16/21 Status: Ordered LORazepam 0.5 mg oral tablet See Instructions, TAKE 1 TABLET BY MOUTH TWO TIMES A DAY NEEDED FOR ANXIETY, # 28 tablet, 2 Refills, Maintenance, 05/06/20 15:17:00 EDT, [facility], 155, cm, 05/03/20 18:55:00 [...] Refills, Maintenance, 11/16/21 23:51:00 EDT, DIS Tablet, [facility], Partial fill upon patient request if the prescription is for a schedule II o... Start Date: 11/16/21 Status: Ordered Peridex 0.12% liquid 15 mL = 0.018 Gm, By Mouth, 2 times a day, # 420 mL, 0 Refills, Maintenance, 01/18/22 8:47:00 EDT, Liquid, [facility], Partial fill upon patient request [...] 3 Refills, Maintenance, 10/25/21 11:13:00 EDT, Capsule, [facility], Partial fill upon patient [...] Active Bilateral leg pain(Confirmed) Active *BHN/CCA/CC-[facility]- [phone]/Health fci, active care coordination(Confirmed) Active POTS (postural orthostatic t achycardia syndrome)(Confirmed) Active Medulloblastoma(Confirmed) Active RUQ pain(Confirmed) Active Social History Social History Type Response Smoking Status Never smoker; Tobacc o user in household: No entered on: 04/11/16 Sex Female Care Team Personnel Name: Sisi Hernandez MD Address: [address] [place] [address]
--- OUTSIDE RECORDS SUMMARY | 2024-04-27 10:07 | XMS_ITS | Continuity of Care Document ---
Author Organization [facility] Address [address] [place] [address]- Care Team Providers Care Safety Belt Installer Name Role Phone Sisi Hernandez MD Primary Care Physician Encounter [facility] [place] Date(s): 01/31/21 - 03/02/21 [facility] [address] [place], [place] [address] Allergies, Adverse Reactions, Alerts Substance Reaction [...] 8:50:00 EDT, Aerosol, Route to Pharmacy Electronically, [id number], [facility], 155, cm, 06/03/20 13:15:00 [...] 6 Refills, Maintenance, 06/15/20 11:56:00 EST, Solution, [facility], 155, cm, 06/03/20 13:15:00 EST, Height, 68.5, kg, 06/03/20 13:18:00 EST, Dry Weight Start Date: 06/15/20 Status: Ordered dilTIAZem 240 mg/24 hours oral tablet, extended release 1 tablet = 240 mg, By Mouth, Daily, FURTHER REFILLS BY LEGAL SECRETARY, # 90 tablet, 0 Refills, Maintenance, 11/27/19 8:57:00 EDT, ER Tablet, [facility], 155, cm, 10/07/19 12:25:00 EDT, Height, [...] tablet, 2 Refills, Maintenance, 05/06/20 15:17:00 EDT, [facility], 155, cm, 05/03/20 18:55:00 EDT, [...] 15:30:53 EST, Aerosol, Route to Pharmacy Electronically, [id number]... Start Date: 09/12/18 Stop Date: 02/09/19 Status: Ordered ProAir HFA 90 mcg/inh inhalation aerosol with adapter 2, puffs, Inhalation, Every 4 hours, PRN, use with spacer chamber BRAND NAME MEDICALLY NECESSARY, #8.5 Gm, Refills 0, Tot. Refills 0, Maintenance, 12/05/20 15:38:00 EDT, Aerosol, Route to Pharmacy Electronically, [id number]... Start Date: 12/05/20 Status: Ordered ramelteon 8 mg oral tablet 1 tablet = 8 mg, By Mouth, Daily at bedtime, # 30 tablet, 11 Refills, Maintenance, 12/02/20 8:48:00EDT, [facility], Partial fill upon patient [...] 2 Refills, Maintenance, 08/04/20 12:39:00 EST, Capsule, [facility], Partial fill upon patient [...] Active Bilateral leg pain(Confirmed) Active *BHN/CCA/CC-[facility]- [phone]/Health usp, active care coordination(Confirmed) Active POTS (postural orthostatic t achycardia syndrome)(Confirmed) Active Medulloblastoma(Confirmed) Active RUQ pain(Confirmed) Active Viral URI(Confirmed) Active Social History Social History Type Response Smoking Status Never smoker; Tobacc o user in household: No entered on: 04/11/16 Sex
--- OUTSIDE RECORDS SUMMARY | 2024-04-27 10:07 | XMS_ITS | Continuity of Care Document ---
Author Organization [facility] Address [address] [place] [address]- Care Team Providers Care Apparel Embroidery Digitizer Name Role Phone Mary KEATING, Sisi Almanza Primary Care Physician [phone] [place] [facility] [place] 10/28/20 - 12/28/[address] [address] Discharge Disposition: A-D/C Home Attending Physician: Kirti Mares MD Admitting Physician: Kirti Mares MD Referring Physician: Kirti Mares MD Allergies, Adverse Reactions, Alerts Substance Reaction [...] 12/22/20 12:53:00 EDT, Route to Pharmacy Electronically, [facility] Tablet, Partial fill upon patient request if the... Start Date: 12/22/20 Stop Date: 01/21/21 Status: Ordered albuterol CFC free 90 mcg/inh inhalation aerosol 2, puffs, Inhalation, Every 6 hours, PRN, # 2 each, Refills 11, Tot. Refills 11, Maintenance, 12/02/20 8:50:00 EDT, Aerosol, Route to Pharmacy Electronically, [id number], [facility], 155, cm, 06/03/20 13:15:00 [...] 6 Refills, Maintenance, 06/15/20 11:56:00 EST, Solution, [facility], 155, cm, 06/03/20 13:15:00 EST, Height, 68.5, kg, 06/03/20 13:18:00 EST, Dry Weight Start Date: 06/15/20 Status: Ordered dilTIAZem 240 mg/24 hours oral tablet, extended release 1 tablet = 240 mg, By Mouth, Daily, FURTHER REFILLS BY ORAL AND MAXILLOFACIAL SURGERY RESIDENT, # 90 tablet, 0 Refills, Maintenance, 11/27/19 8:57:00 EDT, ER Tablet, [facility], 155, cm, 10/07/19 12:25:00 EDT, [...] tablet, 2 Refills, Maintenance, 05/06/20 15:17:00 EDT, [facility], 155, cm, 05/03/20 18:55:00 [...] 15:30:53 EST, Aerosol, Route to Pharmacy Electronically, [id number]... Start Date: 09/12/18 Stop Date: 02/09/19 Status: Ordered ProAir HFA 90 mcg/inh inhalation aerosol with adapter 2, puffs, Inhalation, Every 4 hours, PRN, use with spacer chamber BRAND NAME MEDICALLY NECESSARY, #8.5 Gm, Refills 0, Tot. Refills 0, Maintenance, 12/05/20 15:38:00 EDT, Aerosol, Route to Pharmacy Electronically, [id number]... Start Date: 12/05/20 Status: Ordered ramelteon 8 mg oral tablet 1 tablet = 8 mg, By Mouth, Daily at bedtime, # 30 tablet, 11 Refills, Maintenance, 12/02/20 8:48:00EDT, [facility], Partial fill upon patient [...] 2 Refills, Maintenance, 08/04/20 12:39:00 EST, Capsule, [facility], Partial fill upon patient [...] Near syncope(Confirmed) Active Bilateral leg pain(Confirmed) Active *BHN/CCA/CC-[facility]- [phone]/Health prison, active care coordination(Confirmed) Active POTS (postural orthostatic t achycardia syndrome)(Confirmed) Active Medulloblastoma(Confirmed) Active RUQ pain(Confirmed) Active Viral URI(Confirmed) Active Social History Social History Type Response Smoking Status Never smoker; Tobacc o user in household: No entered on: 04/11/16 Sex
--- OUTSIDE RECORDS SUMMARY | 2024-04-27 10:07 | XMS_ITS | Continuity of Care Document ---
Author Organization [facility] Address [address] [place] [address]- Care Team Providers Care Cattle Killer Name Role Phone Sisi Hernandez MD Primary Care Physician [phone] [id number] Date(s): 10/25/21 - 12/31/21 [facility] [address] [place] [address] Attending Physician: Nita Castillo MD Admitting Physician: Nita Castillo MD Referring Physician: Sisi Hernandez MD Allergies, [...] 11/16/21 23:51:00 EDT, Route to Pharmacy Electronically, [facility], Partial fill upon patient request if the presc... Start Date: 11/16/21 Status: Ordered Adderall 5 mg oral tablet 1 tablet = 5 mg, By Mouth, 2 times a day, to take with long acting, # 60 tablet, 0 Refills, Maintenance, 10/25/21 15:46:00 EDT, Tablet, [facility], Partial fill upon patient request if the prescription is for a schedule II opioid drug.,... Start Date: 10/25/21 Status: Ordered Adderall XR 20 mg oral capsule, extended release 1 capsule = 20 mg, By Mouth, 2 times a day, to take with short acting 5 mg. changing from adderall XR 15- need to fill now, # 60 capsule, 0 Refills, Maintenance, 10/25/21 15:46:00 EDT, ER Capsule, [facility] 3, Partial fill upon patient r... Start Date: 10/25/21 Status: Ordered albuterol CFC free 90 mcg/inh inhalation aerosol 2, puffs, Inhalation, Every 6 hours, PRN, # 2 each, Refills 11, Tot. Refills 11, Maintenance, 10/05/21 9:52:00 EST, Aerosol, Route to Pharmacy Electronically, [id number], [facility], ONLY ALBUTEROL HFA, CANCEL V... Start [...] 6 Refills, Maintenance, 10/03/21 12:18:00 EST, Solution, [facility] 3, 155, cm, 09/27/21 15:08:00 EST, Height, 68.5, kg, 06/03/20 13:18:00 EST, Dry Weight Start Date: 10/03/21 Status: Ordered cyanocobalamin 1000 mcg/ml injectable solution 1 mL = 1,000 mcg, Intramuscular, Every 30 days, # 3 mL, 6 Refills, Maintenance, 06/15/20 11:56:00 EST, Solution, [facility], 155, cm, 06/03/20 13:15:00 EST, Height, 68.5, kg, 06/03/20 13:18:00 EST, Dry Weight Start Date: 06/15/20 Status: Ordered dilTIAZem 240 mg/24 hours oral tablet, extended release 1 tablet = 240 mg, By Mouth, Daily, FURTHER REFILLS BY HAND FRAME SURGICAL ELASTIC KNITTER, # 90 tablet, 0 Refills, Maintenance, 11/27/19 8:57:00 EDT, ER Tablet, [facility], 155, cm, 10/07/19 12:25:00 EDT, Height, 63, kg, 07/01/19 19:58:00 EST, Dry Weight Start Date: 11/27/19 Status: Ordered Flovent HFA 110 mcg/inh inhalation aerosol 2 puffs, Inhalation, 2 times a day, # 12 Gm, 0 Refills, Maintenance, 10/05/21 13:23:00 EST, Aerosol, [facility], Partial fill upon patient request [...] 11/16/21 23:51:00 EDT, Route to Pharmacy Electronically, [facility], Partial fill upon patient request if the prescription is... Start Date: 11/16/21 Status: Ordered LORazepam 0.5 mg oral tablet See Instructions, TAKE 1 TABLET BY MOUTH TWO TIMES A DAY NEEDED FOR ANXIETY, # 28 tablet, 2 Refills, Maintenance, 05/06/20 15:17:00 EDT, [facility], 155, cm, 05/03/20 18:55:00 EDT, Height, [...] Refills, Maintenance, 11/16/21 23:51:00 EDT, DIS Tablet, [facility], Partial fill upon patient request if the prescription is for a schedule II o... Start Date: 11/16/21 Status: Ordered syringe and needles syringe and [...] 3 Refills, Maintenance, 10/25/21 11:13:00 EDT, Capsule, [facility], Partial fill upon patient [...] Active Bilateral leg pain(Confirmed) Active *BHN/CCA/CC-[facility]- [phone]/Health [facility], active care coordination(Confirmed) Active POTS (postural orthostatic t achycardia syndrome)(Confirmed) Active Medulloblastoma(Confirmed) Active RUQ pain(Confirmed) Active Social History Social History Type Response Smoking Status Never smoker; Tobacc o user in household: No entered on: 04/11/16 Sex Female
--- OUTSIDE RECORDS SUMMARY | 2024-04-27 10:07 | XMS_ITS | Continuity of Care Document ---
Author Organization [facility] Address [address] [place] [address]- Care Team Providers Care Customer Development Representative Name Role Phone Sisi Hernandez MD Primary Care Physician [phone] En[place] [facility] [place] Date(s): 08/30/20 - 09/29/20 [facility] [address] [place], [place] [address] Allergies, Adverse Reactions, Alerts Substance Reaction [...] 8:59:00 EDT, Aerosol, Route to Pharmacy Electronically, [id number], [facility], 155, cm, 10/07/19 12:25:00 [...] Refills, Maintenance, 06/15/20 11:56:00 EST, Solution, [facility], 155, cm, 06/03/20 13:15:00 EST, Height, 68.5, kg, 06/03/20 13:18:00 EST, Dry Weight Start Date: 06/15/20 Status: Ordered dilTIAZem 240 mg/24 hours oral tablet, extended release 1 tablet = 240 mg, By Mouth, Daily, FURTHER REFILLS BY SKATE HOP, # 90 tablet, 0 Refills, Maintenance, 11/27/19 8:57:00 EDT, ER Tablet, [facility], 155, cm, 10/07/19 12:25:00 [...] 2 Refills, Maintenance, 05/06/20 15:17:00 EDT, [facility], 155, cm, 05/03/20 18:55:00 EDT, [...] 15:30:53 EST, Aerosol, Route to Pharmacy Electronically, [id number]... Start Date: 09/12/18 Stop Date: 02/09/19 Status: [...] Refills, Maintenance, 08/04/20 12:39:00 EST, Capsule, [facility], Partial fill upon patient request [...] Active Bilateral leg pain(Confirmed) Active *BHN/CCA/CC-[facility]- [phone]/Health fci, active care coordination(Confirmed) Active POTS (postural orthostatic t achycardia syndrome)(Confirmed) Active Medulloblastoma(Confirmed) Active RUQ pain(Confirmed) Active Viral URI(Confirmed) Active Social History Social History Type Response Smoking Status Never smoker; Tobacc o user in household: No entered on: 04/11/16 Sex
--- OUTSIDE RECORDS SUMMARY | 2024-04-27 10:08 | XMS_ITS | Continuity of Care Document ---
Author Organization [facility] Address [address] [place] [address]- Care Team Providers Care Reeling Machine Setup Operator Name Role Phone Sisi Hernandez MD Primary Care Physician Encounter [facility] [place] Date(s): 03/14/23 - 04/13/23 [facility] [address] [place], [place] [address] Allergies, Adverse Reactions, Alerts Substance [...] Refills, Maintenance, 12/21/22 14:40:00 EDT, ER Capsule, [facility], Partial fill upon patient request if the prescription is for a schedule II opioid drug., 155, cm, 12/05/22 11:... Start Date: 12/21/22 Status: Ordered albuterol CFC free 90 mcg/inh inhalation aerosol 2, puffs, Inhalation, Every 6 hours, PRN, # 2 each, Refills 11, Tot. Refills 11, Maintenance, 02/15/22 13:12:00 EDT, Aerosol, Route to Pharmacy Electronically, [id number], [facility], ONLY ALBUTEROL HFA, CANCEL... Start Date: 02/15/22 Stop Date: 02/10/23 Status: Ordered Colace sodium 100 mg oral capsule 100 mg, 1, capsule, By Mouth, 2 times a day, PRN, # 30 capsule, Refills 0, Tot. Refills 0, Maintenance, for constipation, 07/31/22 11:03:00 EST, Route to Pharmacy Electronically, [facility] 3, Partial fill upon patient [...] 6 Refills, Maintenance, 09/04/22 8:50:00 EST, Solution, [facility] 3, 155, cm, 08/14/22 13:52:00 [...] 0 Refills, Maintenance, 02/15/22 13:10:00 EDT, Aerosol, [facility] 3, new dosage, 155, cm, 12/08/21 10:46:00 [...] 07/31/22 11:03:00 EST, Route to Pharmacy Electronically, [facility], Partial fill upon patient request if the prescription is for a schedule... Start Date: 07/31/22 Status: Ordered LORazepam 0.5 mg oral tablet See Instructions, TAKE 1 TABLET BY MOUTH TWO TIMES A DAY NEEDED FOR ANXIETY, # 28 tablet, 2 Refills, Maintenance, 12/05/22 12:25:00 EDT, [facility], 155, cm, 12/05/22 11:40:00 [...] Refills, Maintenance, 08/01/22 6:06:00 EST, REC Powder, [facility] 3, Partial fill upon patient request if [...] 0 Refills, Maintenance, 08/01/22 6:06:00 EST, Tablet, [facility] 3, Partial fill upon patient request if the prescription is for a schedule II opioid drug., 155, cm,... Start Date: 08/01/22 Status: Ordered Symbicort 160mcg/4.5mcg Inhaler 2, puffs, Inhalation, 2 times a day, # 3 each, Refills 5, Tot. Refills 5, Maintenance, 09/27/22 12:00:00 EST, Aerosol, Route to Pharmacy Electronically, [id number], [facility], replaces flovent inhaler, 155, cm,... Start [...] 07/31/22 11:03:00 EST, Route to Pharmacy Electronically, [facility], Partial fill upon patient request if the prescription is... Start Date: 07/31/22 Status: Ordered verapamil 240 mg/12 hours oral tablet, extended release TAKE 1 TABLET BY MOUTH DAILY. Start Date: 02/05/23 Status: Ordered Problem List Condition Confirmation Course [...] Bilateral leg pain Confirmed Active *BHN/CCA/CC-Matias Vela- [phone]/Health group home, active care coordination Confirmed Active POTS (postural orthostatic tachycardia syndrome) Confirmed Active Medulloblastoma Confirmed Active RUQ pain Confirmed Active Tachy-sharmin syndrome Confirmed Active Social History Social History Type Response Smoking Status Never smoker; Tobacc o user in household: No entered on: 04/11/16 Sex Patient Care team information Care Team Personnel Name: Vidhya Grace RN Position: [facility] RN Member Role: Primary Care Nurse Name: Sisi Hernandez MD Position: [facility] Physician - Primary Care Member Role: PCP Address: Address: [address] [place] [address] Name: Yousuf MONTELONGO, Lizzette Position: [facility] RN Member Role: Primary Care Nurse Name: Karolina Adkins MD Position: [facility] Physician - Primary Care Member Role: Lifetime Consulting Physician Address: Address: [address] [place] [address] & Palliative Care [place], [place] [address] Name: Rossy Rowe RN Position: [facility] SN RN Member Role: Primary Care Nurse Name: Cindi Hawyard Position: [facility] RN Member Role: Primary Care Nurse Name: Bela Mcmahon RN Position: [facility] Hospital Actuarial Manager Member Role: Primary Care Nurse Name: Nicole Hernandez RN Position: [facility] RN Member Role: Primary Care Nurse Name: Zac Castillo RN Position: [facility] ED RN W/OE and Tasks Member Role: Primary Care Nurse Name: Jeanne Grande RN Position: [facility] RN Member Role: Primary Care Nurse Care Team Related Persons Name: BEAR TURNER Address: home [address] [place] [id number] Name: BEAR TURNER SECONDARY Address: [address] [address] Name: ISATU ECKERT Address: [place] [address] Name: ISAAC VERDE PRIMARY Address: home [address] [place] [address] Name: ADRY DURANT Name: PANCHO JEROME Address: [place] [address]
--- OUTSIDE RECORDS SUMMARY | 2024-04-27 10:08 | XMS_ITS | Continuity of Care Document ---
Author Organization [facility] Address [address] [place] [address]- Care Team Providers Care Refrigeration Systems Installer Name Role Phone Sisi Hernandez MD Primary Care Physician Encounter [facility] [place] Date(s): 07/12/22 - 07/19/22 [facility] [address] [place], [place] [address] Encounter Diagnosis Hemoptysis(Discharge Diagnosis) - 07/12/22 Esophagitis(Discharge Diagnosis) - 07/12/22 Attending Physician: Sisi Hernandez MD Allergies, Adverse [...] 11/16/21 23:51:00 EDT, Route to Pharmacy Electronically, [facility], Partial fill upon patient request if the presc... Start Date: 11/16/21 Status: Ordered Adderall XR 20 mg oral capsule, extended release 1 capsule = 20 mg, By Mouth, Daily in AM, # 30 capsule, 0 Refills, Maintenance, 07/12/22 11:52:00 EST, ER Capsule, Partial fill upon patient request if the prescription is for a schedule II opioid drug. Start Date: 07/12/22 Status: Ordered albuterol CFC free 90 mcg/inh inhalation aerosol 2, puffs, Inhalation, Every 6 hours, PRN, # 2 each, Refills 11, Tot. Refills 11, Maintenance, 02/15/22 13:12:00 EDT, Aerosol, Route to Pharmacy Electronically, [id number], [facility], ONLY ALBUTEROL HFA, CANCEL... [...] 6 Refills, Maintenance, 10/03/21 12:18:00 EST, Solution, [facility], 155, cm, 09/27/21 15:08:00 EST, Height, 68.5, kg, 06/03/20 13:18:00 EST, Dry Weight Start Date: 10/03/21 Status: Ordered cyanocobalamin 1000 mcg/ml injectable solution 1 mL = 1,000 mcg, Intramuscular, Every 30 days, # 3 mL, 6 Refills, Maintenance, 06/06/22 12:08:00 EST, Solution, [facility], 155, cm, 04/06/22 14:56:00 EDT, Height, 67.5, kg, 04/06/22 14:56:00 EDT, Dry Weight Start Date: 06/06/22 Status: Ordered esomeprazole 40 mg oral enteric coated capsule TAKE 1 CAPSULE BY MOUTH EVERY DAY Start Date: 07/12/22 Status: Ordered Flovent HFA 220 mcg/inh inhalation aerosol 2 puffs, Inhalation, 2 times a day, new dosage, # 12 Gm, 0 Refills, Maintenance, 02/15/22 13:10:00 EDT, Aerosol, [facility], new dosage, 155, cm, [...] 11/16/21 23:51:00 EDT, Route to Pharmacy Electronically, [facility], Partial fill upon patient request if the prescription is... Start Date: 11/16/21 Status: Ordered LORazepam 0.5 mg oral tablet See Instructions, TAKE 1 TABLET BY MOUTH TWO TIMES A DAY NEEDED FOR ANXIETY, # 28 tablet, 2 Refills, Maintenance, 06/06/22 10:45:00 EST, [facility], 155, cm, 04/06/22 [...] Refills, Maintenance, 11/16/21 23:51:00 EDT, DIS Tablet, [facility], Partial fill upon patient request if the prescription is for a schedule II o... Start Date: 11/16/21 Status: Ordered Peridex 0.12% liquid 15 mL = 0.018 Gm, By Mouth, 2 times a day, # 420 mL, 0 Refills, Maintenance, 01/18/22 8:47:00 EDT, Liquid, [facility], Partial fill upon patient [...] 3 Refills, Maintenance, 06/05/22 14:27:00 EST, Capsule, [facility], Partial fill upon patient [...] Confirmed Active Bilateral leg pain Confirmed Active *N/CCA/CC-Matias Vela- [phone]/Health group home, active care coordination Confirmed Active POTS (postural orthostatic tachycardia syndrome) Confirmed Active Medulloblastoma Confirmed Active RUQ pain Confirmed Active Diagnosis Diagnosis Type Effective Dates Health Status Clini melinda Service Informant Hemoptysis Discharge Diagnosis 07/12/22 Esophagitis Discharge Diagnosis 07/12/22 Social History Social History Type Response Smoking Status Never smoker; Tobacc o user in household: No entered on: 04/11/16 Sex Female Patient Care team information Care Team Personnel Name: Vidhya Grace RN Position: [facility] RN Member Role: Primary Care Nurse Name: Sisi Hernandez MD Position: [facility] Primary Care Physician Member Role: PCP Address: Address: [address] [place] [address]- Name: Lizzette To RN Position: [facility] RN Member Role: Primary Care Nurse Name: Karolina Adkins MD Position: [facility] Physician -Physician Practices Member Role: Lifetime Consulting Physician Address: Address: [address] [place] [address] [facility]iatric [facility] [place] [address]- Name: Isadora Godfrey RN Position: [facility] RN Member Role: Primary Care Nurse Name: Rossy Rowe RN Position: [facility] SN RN Member Role: Primary Care Nurse Name: Bela Mcmahon RN Position: [facility] Hospital Footwear Factory Worker Member Role: Primary Care Nurse Name: Nicole Hernandez RN Position: [facility] RN Member Role: Primary Care Nurse Name: Zac Castillo RN Position: [facility] ED RN W/OE and Tasks Member Role: Primary Care Nurse Name: Jeanne Grande RN Position: [facility] RN Member Role: Primary Care Nurse Care Team Related Persons Name: BEAR TURNER Address: home [address] [place] [address] Name: ISATU ECKERT Address: [place] [address] Name: ISAAC VERDE Address: home [address] [place] [address] Name: ADRY DURANT Name: PANCHO JEROME Address: [place] [address]
--- OUTSIDE RECORDS SUMMARY | 2024-04-27 10:08 | XMS_ITS | Continuity of Care Document ---
Author Organization [facility] Address [address], [address] [place] [address]- Care Team Providers Care Expanded Function Dental Assistant Name Role Phone Sisi Hernandez MD Primary Care Physician Encounter [facility] Date(s): 10/01/22 - 10/31/22 [facility] [address], [address] [place], [place] [address] Allergies, Adverse Reactions, Alerts [...] 13:12:00 EDT, Aerosol, Route to Pharmacy Electronically, [id number], [facility], ONLY ALBUTEROL HFA, CANCEL... Start Date: 02/15/22 Stop Date: 02/10/23 Status: Ordered Colace sodium 100 mg oral capsule 100 mg, 1, capsule, By Mouth, 2 times a day, PRN, # 30 capsule, Refills 0, Tot. Refills 0, Maintenance, for constipation, 07/31/22 11:03:00 EST, Route to Pharmacy Electronically, [facility], Partial fill upon patient request [...] Refills, Maintenance, 09/04/22 8:50:00 EST, Solution, [facility], 155, cm, 08/14/22 13:52:00 EST, Height, 68.1, kg, 08/14/22 13:52:00 EST, Dry Weight Start Date: 09/04/22 Status: Ordered dextroamphetamine 10 mg oral capsule, extended release See Instructions, start 1 capsule By Mouth Daily in AM. Take second capsule if needed, # 60 capsule, 0 Refills, Maintenance, 10/17/22 14:31:00 EDT, ER Capsule, [facility], Partial fill upon patient [...] Refills, Maintenance, 02/15/22 13:10:00 EDT, Aerosol, [facility], new dosage, 155, cm, [...] 07/31/22 11:03:00 EST, Route to Pharmacy Electronically, [facility], Partial fill upon patient request if the prescription is for a schedule... Start Date: 07/31/22 Status: Ordered LORazepam 0.5 mg oral tablet See Instructions, TAKE 1 TABLET BY MOUTH TWO TIMES A DAY NEEDED FOR ANXIETY, # 28 tablet, 2 Refills, Maintenance, 06/06/22 10:45:00 EST, [facility], 155, cm, 04/06/22 14:56:00 EDT, Height, 67.5, kg, 04/06/22 14:56:00 EDT, Dry Weight Start Date: 06/06/22 Status: Ordered Metoprolol Tartrate 50 mg oral tablet 0 Refills, Maintenance, 03/04/20 9:58:00 EDT Start Date: 03/04/20 Status: Ordered MiraLax oral powder for reconstitution = 17 Gm, By Mouth, Daily, dissolve in water before taking, # 255 Gm, 0 Refills, Maintenance, 08/01/22 6:06:00 EST, REC Powder, [facility] 3, Partial fill upon patient request [...] 0 Refills, Maintenance, 08/01/22 6:06:00 EST, Tablet, [facility] 3, Partial fill upon patient request if the prescription is for a schedule II opioid drug., 155, cm,... Start Date: 08/01/22 Status: Ordered Symbicort 160mcg/4.5mcg Inhaler 2, puffs, Inhalation, 2 times a day, # 3 each, Refills 5, Tot. Refills 5, Maintenance, 09/27/22 12:00:00 EST, Aerosol, Route to Pharmacy Electronically, [id number], [facility], replaces flovent inhaler, 155, cm,... Start [...] 11:03:00 EST, Route to Pharmacy Electronically, [facility], Partial fill upon patient [...] 3 Refills, Maintenance, 06/05/22 14:27:00 EST, Capsule, [facility], Partial fill upon patient [...] Bilateral leg pain Confirmed Active *BHN/CCA/CC-[facility]ias Vela- [phone]/Health long-term, active care coordination Confirmed Active POTS (postural orthostatic tachycardia syndrome) Confirmed Active Medulloblastoma Confirmed Active RUQ pain Confirmed Active Social History Social History Type Response Smoking Status Never smoker; Tobacc o user in household: No entered on: 04/11/16 Sex Patient Care team information Care Team Personnel Name: Vidhya Grace RN Position: [facility] RN Member Role: Primary Care Nurse Name: Sisi Hernandez MD Position: [facility] Primary Care Physician Member Role: PCP Address: Address: [address] [place] [id number] Name: Lizzette To RN Position: [facility] RN Member Role: Primary Care Nurse Name: Karolina Adkins MD Position: [facility] Physician -Physician Practices Member Role: Lifetime Consulting Physician Address: Address: [address] [place] [address] [facility] [address] Name: Isadora Godfrey RN Position: [facility] RN Member Role: Primary Care Nurse Name: Rossy Rowe RN Position: [facility] SN RN Member Role: Primary Care Nurse Name: Cindi Hayward Position: [facility] RN Member Role: Primary Care Nurse Name: Bela Mcmahon RN Position: [facility] Hospital Care Coordination Manager Member Role: Primary Care Nurse Name: Nicole Hernandez RN Position: [facility] RN Member Role: Primary Care Nurse Name: Zac Castillo RN Position: [facility] ED RN W/OE and Tasks Member Role: Primary Care Nurse Name: Jeanne Grande RN Position: [facility] RN Member Role: Primary Care Nurse Care Team Related Persons Name: KATHRYN TURNERY Address: home [address] [place], [place] Name: BEAR TURNER SECONDARY Address: home [address] [place] [address] Name: ISATU ECKERT Address: [place] [address] Name: ISAAC VERDE PRIMARY Address: [address] [address] Name: ADRY DURANT Name: PANCHO JEROME Address: [place] [address]
--- OUTSIDE RECORDS SUMMARY | 2024-04-27 10:08 | XMS_ITS | Continuity of Care Document ---
Author Organization [facility] Address [address] [place] [address]- Care Team Providers Care Floorworker Lasting Name Role Phone Mary KEATING, Sisi Almanza Primary Care Physician Encounter [facility] Date(s): 08/17/22 - 09/16/22 [facility] [address] [place], [place] [address] Allergies, Adverse Reactions, Alerts Substance [...] 13:12:00 EDT, Aerosol, Route to Pharmacy Electronically, [id number], [facility], ONLY ALBUTEROL HFA, CANCEL... Start Date: 02/15/22 Stop Date: 02/10/23 Status: Ordered Colace sodium 100 mg oral capsule 100 mg, 1, capsule, By Mouth, 2 times a day, PRN, # 30 capsule, Refills 0, Tot. Refills 0, Maintenance, for constipation, 07/31/22 11:03:00 EST, Route to Pharmacy Electronically, [facility], Partial fill upon patient request if [...] 6 Refills, Maintenance, 09/04/22 8:50:00 EST, Solution, [facility], 155, cm, 08/14/22 13:52:00 EST, [...] 07/31/22 11:03:00 EST, Route to Pharmacy Electronically, [facility] [...] Refills, Maintenance, 08/01/22 6:06:00 EST, REC Powder, [facility], Partial fill upon patient request if [...] 0 Refills, Maintenance, 08/01/22 6:06:00 EST, Tablet, [facility], Partial fill upon patient request if the prescription is for a schedule II opioid drug., 155, cm,... Start Date: 08/01/22 Status: Ordered simethicone 80 mg oral tablet, chewable 80 mg, 1, tablet, Chew, 4 times a day, # 12 tablet, Refills 0, Tot. Refills 0, Maintenance, 07/31/22 11:03:00 EST, Route to Pharmacy Electronically, [facility], Partial fill upon patient request if the prescription is for a schedule II o... Start Date: 07/31/22 Status: Ordered syringe and needles syringe and [...] 07/31/22 11:03:00 EST, Route to Pharmacy Electronically, [facility] [...] Bilateral leg pain Confirmed Active *BHN/CCA/CC-Matias Vela- [phone]/Health correction, active care coordination Confirmed Active POTS (postural orthostatic tachycardia syndrome) Confirmed Active Medulloblastoma Confirmed Active RUQ pain Confirmed Active Social History Social History Type Response Smoking Status Never smoker; Tobacc o user in household: No entered on: 04/11/16 Sex Female Patient Care team information Care Team Personnel Name: Vidhya Grace RN Position: [facility] RN Member Role: Primary Care Nurse Name: Sisi Hernandez MD Position: [facility] Primary Care Physician Member Role: PCP Address: Address: [address] [place] [address] - Name: Lizzette To RN Position: [facility] RN Member Role: Primary Care Nurse Name: Karolina Adkins MD Position: [facility] Physician -Physician Practices Member Role: Lifetime Consulting Physician Address: Address: [address] [place] [address] [facility] [place], [place] - Name: Isadora Godfrey RN Position: [facility] RN Member Role: Primary Care Nurse Name: Rossy Rowe RN Position: [facility] SN RN Member Role: Primary Care Nurse Name: Cindi Hayward Position: [facility] RN Member Role: Primary Care Nurse Name: Bela Mcmahon RN Position: [facility] Hospital Drilling Engineering Manager Member Role: Primary Care Nurse Name: Nicole Hernandez RN Position: [facility] RN Member Role: Primary Care Nurse Name: Zac Castillo RN Position: [facility] ED RN W/OE and Tasks Member Role: Primary Care Nurse Name: Harjinder MONTELONGO, Jeanne Baker Position: [facility] RN Member Role: Primary Care Nurse Care Team Related Persons Name: BEAR TURNER Address: home [address] [place] [address] Name: BEAR TURNER SECONDARY Address: home [address] [place] [address] Name: ISATU ECKERT Address: [place] [address] Name: ISAAC VERDE PRIMARY Address: home [address] [place] [address] Name: ADRY DURANT Name: PANCHO JEROME Address: [place] [address]
--- OUTSIDE RECORDS SUMMARY | 2024-04-27 10:08 | XMS_ITS | Continuity of Care Document ---
Author Organization [facility] Address [address] [place] [address]- Care Team Providers Care Wallpaper Remover Steam Name Role Phone Sisi Hernandez MD Primary Care Physician [phone] Encounter [facility] [place] Date(s): 03/15/21 - 03/22/21 [facility] [address] [place], [place] [address] Attending Physician: Sisi Hernandez MD Allergies, [...] 8:50:00 EDT, Aerosol, Route to Pharmacy Electronically, [id number], [facility], 155, cm, 06/03/20 13:15:00 E... Start [...] 6 Refills, Maintenance, 06/15/20 11:56:00 EST, Solution, [facility], 155, cm, 06/03/20 13:15:00 EST, Height, 68.5, kg, 06/03/20 13:18:00 EST, Dry Weight Start Date: 06/15/20 Status: Ordered dilTIAZem 240 mg/24 hours oral tablet, extended release 1 tablet = 240 mg, By Mouth, Daily, FURTHER REFILLS BY MANAGER BUSINESS INFORMATION, # 90 tablet, 0 Refills, Maintenance, 11/27/19 8:57:00 EDT, ER Tablet, [facility], 155, cm, 10/07/19 [...] tablet, 2 Refills, Maintenance, 05/06/20 15:17:00 EDT, [facility], 155, cm, 05/03/20 18:55:00 EDT, Height, [...] 15:30:53 EST, Aerosol, Route to Pharmacy Electronically, [id number]... Start Date: 09/12/18 Stop Date: 02/09/19 Status: Ordered ProAir HFA 90 mcg/inh inhalation aerosol with adapter 2, puffs, Inhalation, Every 4 hours, PRN, use with spacer chamber BRAND NAME MEDICALLY NECESSARY, #8.5 Gm, Refills 0, Tot. Refills 0, Maintenance, 12/05/20 15:38:00 EDT, Aerosol, Route to Pharmacy Electronically, [id number]... Start Date: 12/05/20 Status: Ordered ramelteon 8 mg oral tablet 1 tablet = 8 mg, By Mouth, Daily at bedtime, # 30 tablet, 11 Refills, Maintenance, 12/02/20 8:48:00EDT, [facility] 3, Partial fill upon patient request [...] 2 Refills, Maintenance, 08/04/20 12:39:00 EST, Capsule, [facility], Partial fill upon patient request if [...] Active Bilateral leg pain(Confirmed) Active *BHN/CCA/CC-Matias Vela- [phone]/Health half-way, active care coordination(Confirmed) Active POTS (postural orthostatic t achycardia syndrome)(Confirmed) Active Medulloblastoma(Confirmed) Active RUQ pain(Confirmed) Active Viral URI(Confirmed) Active Social History Social History Type Response Smoking Status Never smoker; Tobacc o user in household: No entered on: 04/11/16 Sex
--- OUTSIDE RECORDS SUMMARY | 2024-04-27 10:08 | XMS_ITS | Continuity of Care Document ---
Author Organization [facility] Address [address] [place] [address]- Care Team Providers Care [employer] Program Coordinator Name Role Phone Sisi Hernandez MD Primary Care Physician Encounter [facility] [place] Date(s): 04/03/23 - 05/03/[address] [id number] Attending Physician: AdmAngel can Admitting Physician: AdmtrAngel Referring Physician: Admtr, Ar8 Allergies, Adverse Reactions, Alerts Substance Reaction Severity [...] Refills, Maintenance, 12/21/22 14:40:00 EDT, ER Capsule, [facility], Partial fill upon patient request if the prescription is for a schedule II opioid drug., 155, cm, 12/05/22 11:... Start Date: 12/21/22 Status: Ordered albuterol CFC free 90 mcg/inh inhalation aerosol 2, puffs, Inhalation, Every 6 hours, PRN, # 2 each, Refills 11, Tot. Refills 11, Maintenance, 02/15/22 13:12:00 EDT, Aerosol, Route to Pharmacy Electronically, [id number], [facility], ONLY ALBUTEROL HFA, CANCEL... Start Date: 02/15/22 Stop Date: 02/10/23 Status: Ordered Colace sodium 100 mg oral capsule 100 mg, 1, capsule, By Mouth, 2 times a day, PRN, # 30 capsule, Refills 0, Tot. Refills 0, Maintenance, for constipation, 07/31/22 11:03:00 EST, Route to Pharmacy Electronically, [facility], Partial fill upon patient request [...] 6 Refills, Maintenance, 09/04/22 8:50:00 EST, Solution, [facility], 155, cm, 08/14/22 13:52:00 EST, Height, 68.1, kg, 08/14/22 13:52:00 EST, Dry Weight Start Date: 09/04/22 Status: Ordered esomeprazole 40 mg oral enteric coated capsule TAKE 1 CAPSULE BY MOUTH EVERY DAY Start Date: 07/12/22 Status: Ordered Flovent HFA 220 mcg/inh inhalation aerosol 2 puffs, Inhalation, 2 times a day, new dosage, # 12 Gm, 0 Refills, Maintenance, 02/15/22 13:10:00 EDT, Aerosol, [facility], new dosage, 155, [...] 07/31/22 11:03:00 EST, Route to Pharmacy Electronically, [facility], Partial fill upon patient request if the prescription is for a schedule... Start Date: 07/31/22 Status: Ordered LORazepam 0.5 mg oral tablet See Instructions, TAKE 1 TABLET BY MOUTH TWO TIMES A DAY NEEDED FOR ANXIETY, # 28 tablet, 2 Refills, Maintenance, 12/05/22 12:25:00 EDT, [facility], 155, cm, 12/05/22 [...] Refills, Maintenance, 08/01/22 6:06:00 EST, REC Powder, [facility] 3, Partial fill upon patient request [...] 0 Refills, Maintenance, 08/01/22 6:06:00 EST, Tablet, [facility] 3, Partial fill upon patient request if the prescription is for a schedule II opioid drug., 155, cm,... Start Date: 08/01/22 Status: Ordered Symbicort 160mcg/4.5mcg Inhaler 2, puffs, Inhalation, 2 times a day, # 3 each, Refills 5, Tot. Refills 5, Maintenance, 09/27/22 12:00:00 EST, Aerosol, Route to Pharmacy Electronically, [id number], [facility], replaces flovent inhaler, 155, cm,... Start [...] 07/31/22 11:03:00 EST, Route to Pharmacy Electronically, [facility], Partial fill upon patient request if [...] Bilateral leg pain Confirmed Active *BHN/CCA/CC-[facility]- [phone]/Health detention, active care coordination Confirmed Active POTS (postural orthostatic tachycardia syndrome) Confirmed Active Medulloblastoma Confirmed Active RUQ pain Confirmed Active Tachy-sharmin syndrome Confirmed Active Social History Social History Type Response Smoking Status Never smoker; Tobacc o user in household: No entered on: 04/11/16 Sex Patient Care team information Care Team Personnel Name: Vidhya Grace RN Position: S RN Member Role: Primary Care Nurse Name: Sisi Hernandez MD Position: S Physician - Primary Care Member Role: PCP Address: Address: [address] [place] [address] Name: Lizzette To RN Position: [facility] RN Member Role: Primary Care Nurse Name: Karolina Adkins MD Position: [facility] Physician - Primary Care Member Role: Lifetime Consulting Physician Address: Address: [address] [place] [address] [facility] [place] [address]- Name: Isadora Godfrey RN Position: [facility] RN Member Role: Primary Care Nurse Name: Rossy Rowe RN Position: [facility] SN RN Member Role: Primary Care Nurse Name: Cindi Hayward Position: [facility] RN Member Role: Primary Care Nurse Name: Bela Mcmahon RN Position: [facility] Hospital Skiver Welt End Member Role: Primary Care Nurse Name: Nicole Hernandez RN Position: [facility] RN Member Role: Primary Care Nurse Name: Zac Castillo RN Position: [facility] ED RN W/OE and Tasks Member Role: Primary Care Nurse Name: Jeanne Grande RN Position: [facility] RN Member Role: Primary Care Nurse Care Team Related Persons Name: BEAR TURNER Address: home [address] [place] [address] Name: BEAR TURNER SECONDARY Address: home [address] [place] [address] Name: ISATU ECKERT Address: [place] [address] Name: ISAAC VERDE PRIMARY Address: home [address] [place] [address] Name: ADRY DURANT Name: PANCHO JEROME Address: [place] [address]
--- OUTSIDE RECORDS SUMMARY | 2024-04-27 10:08 | XMS_ITS | Continuity of Care Document ---
Author Organization [facility] Address [address] [place] [address]- Care Team Providers Care Technician Automated Equipment Name Role Phone Sisi Hernandez MD Primary Care Physician Encounter [facility] [place] ACCT R [id number] Date(s): 03/24/20 - 05/29/20 [facility] [address] [place] [address]- [facility] Attending Physician: Not on Staff, Attending MD [...] 8:59:00 EDT, Aerosol, Route to Pharmacy Electronically, [id number], [facility], 155, cm, 10/07/19 12:25:00 E... [...] 5 Refills, Maintenance, 03/04/20 9:53:00 EDT, Solution, [facility], 155, cm, 10/07/19 12:25:00 EDT, Height, 63, kg, 07/01/19 19:58:00 EST, Dry Weight Start Date: 03/04/20 Status: Ordered dilTIAZem 240 mg/24 hours oral tablet, extended release 1 tablet = 240 mg, By Mouth, Daily, FURTHER REFILLS BY ASPHALT WORKER, # 90 tablet, 0 Refills, Maintenance, 11/27/19 8:57:00 EDT, ER Tablet, [facility], 155, cm, 10/07/19 12:25:00 EDT, [...] 2 Refills, Maintenance, 05/06/20 15:17:00 EDT, [facility], 155, cm, 05/03/20 18:55:00 [...] 15:30:53 EST, Aerosol, Route to Pharmacy Electronically, [id number]... Start Date: 09/12/18 Stop Date: 02/09/19 Status: [...] Active Bilateral leg pain(Confirmed) Active *BHN/CCA/CC-[facility]- [phone]/Health assisted, active care coordination(Confirmed) Active POTS (postural orthostatic t achycardia syndrome)(Confirmed) Active Medulloblastoma(Confirmed) Active RUQ pain(Confirmed) Active Social History Social History Type Response Smoking Status Never smoker; Tobacc o user in household: No entered on: 04/11/16 Sex
--- OUTSIDE RECORDS SUMMARY | 2024-04-27 10:08 | XMS_ITS | Continuity of Care Document ---
Author Organization [facility] Address [address] [place] [address]- Care Team Providers Care Process Helper Name Role Phone Sisi Hernandez MD Primary Care Physician [phone] Encounter [facility] ACCT R [id number] Date(s): 11/08/20 - 03/04/[address] [address] Discharge Disposition: A-D/C Home Attending Physician: Sisi Hernandez MD Admitting Physician: Sisi Hernandez MD Referring Physician: Kirti Mares MD Allergies, [...] 8:50:00 EDT, Aerosol, Route to Pharmacy Electronically, [id number], [facility], 155, cm, 06/03/20 13:15:00 [...] 6 Refills, Maintenance, 06/15/20 11:56:00 EST, Solution, [facility], 155, cm, 06/03/20 13:15:00 EST, Height, 68.5, kg, 06/03/20 13:18:00 EST, Dry Weight Start Date: 06/15/20 Status: Ordered dilTIAZem 240 mg/24 hours oral tablet, extended release 1 tablet = 240 mg, By Mouth, Daily, FURTHER REFILLS BY CHAIR FRAME BUILDER, # 90 tablet, 0 Refills, Maintenance, 11/27/19 8:57:00 EDT, ER Tablet, [facility], 155, cm, 10/07/19 12:25:00 EDT, [...] tablet, 2 Refills, Maintenance, 05/06/20 15:17:00 EDT, [facility], 155, cm, 05/03/20 18:55:00 EDT, Height, [...] 15:30:53 EST, Aerosol, Route to Pharmacy Electronically, [id number]... Start Date: 09/12/18 Stop Date: 02/09/19 Status: Ordered ProAir HFA 90 mcg/inh inhalation aerosol with adapter 2, puffs, Inhalation, Every 4 hours, PRN, use with spacer chamber BRAND NAME MEDICALLY NECESSARY, #8.5 Gm, Refills 0, Tot. Refills 0, Maintenance, 12/05/20 15:38:00 EDT, Aerosol, Route to Pharmacy Electronically, [id number]... Start Date: 12/05/20 Status: Ordered ramelteon 8 mg oral tablet 1 tablet = 8 mg, By Mouth, Daily at bedtime, # 30 tablet, 11 Refills, Maintenance, 12/02/20 8:48:00EDT, [facility], Partial fill upon [...] 2 Refills, Maintenance, 08/04/20 12:39:00 EST, Capsule, [facility], Partial fill upon [...] Active Bilateral leg pain(Confirmed) Active *BHN/CCA/CC-[facility]- [phone]/Health half-way, active care coordination(Confirmed) Active POTS (postural orthostatic t achycardia syndrome)(Confirmed) Active Medulloblastoma(Confirmed) Active RUQ pain(Confirmed) Active Viral URI(Confirmed) Active Social History Social History Type Response Smoking Status Never smoker; Tobacc o user in household: No entered on: 04/11/16 Sex
--- OUTSIDE RECORDS SUMMARY | 2024-04-27 10:08 | XMS_ITS | Continuity of Care Document ---
Author Organization [facility] Address [address] [place] [address]- Care Team Providers Care Dynamo Tender Name Role Phone Sisi Hernandez MD Primary Care Physician [place] [facility] [place]23 - 01/01/24 [facility] [address] [place], [place] [address] Attending Physician: Sisi Hernandez MD Allergies, Adverse Reactions, Alerts Substance Reaction Severity Status Sertraline Hydrochloride skin burning burning Active cefoxitin Cough Tightness in throat Active vancomycin Throat itching Itching of skin Active Fruit 1 rash Allergy to fruit Active 1not specific Immunizations Given and Recorded [...] to P... Start Date: 09/11/23 Status: Ordered albuterol CFC free 90 mcg/inh inhalation aerosol 2, puffs, Inhalation, Every 6 hours, PRN, # 2 each, Refills 11, Tot. Refills 11, Maintenance, 02/15/22 13:12:00 EDT, Aerosol, Route to Pharmacy Electronically, [id number], [facility], ONLY ALBUTEROL HFA, CANCEL... Start Date: 02/15/22 Stop Date: 02/10/23 Status: Ordered Colace sodium 100 mg oral capsule 100 mg, 1, capsule, By Mouth, 2 times a day, PRN, # 180 capsule, Refills 3, Tot. Refills 3, Maintenance, for constipation, 08/09/23 14:49:00 EST, Route to Pharmacy Electronically, [facility], Partial fill upon [...] Intramuscular, Every 14 days, # 7 mL, 2 Refills, Maintenance, 11/22/23 15:23:00 EDT, Solution, [facility], dose change, 155, cm, 11/22/23 14:55:00 EDT, Height, 68, kg,10/09/23 14:19:00 EDT, Dry Weight Start Date: 11/22/23 Status: Ordered esomeprazole 40 mg oral enteric coated capsule TAKE 1 CAPSULE BY MOUTH EVERY DAY Start Date: 07/12/22 Status: Ordered Flovent HFA 220 mcg/inh inhalation aerosol 2 puffs, Inhalation, 2 times a day, new dosage, # 12 Gm, 0 Refills, Maintenance, 02/15/22 13:10:00 EDT, Aerosol, [facility], new dosage, 155, [...] 07/31/22 11:03:00 EST, Route to Pharmacy Electronically, [facility], Partial fill upon patient request if the prescription is for a schedule... Start Date: 07/31/22 Status: Ordered ketoconazole 1% topical shampoo See Instructions, Apply 5 to 10 mL to wet scalp, lather, leave on 3 to 5 minutes, and rinse; apply twice weekly for 2 to 4 weeks., # 200 mL, 5 Refills, Maintenance, 11/22/23 15:46:00 EDT, [facility], Partial fill upon patient request if... Start Date: 11/22/23 Status: Ordered ketoconazole 2% topical shampoo 1 application, Topically, Once, Apply 5 to 10 mL to wet scalp, lather, leave on 3 to 5 minutes, andrinse; apply weekly for 2 to 4 weeks., # 120 mL, 4 Refills, Soft Stop, 11/25/23 12:40:00 EDT, Shampoo, [facility], Partial fill upon pat... Start Date: 11/25/23 Status: Ordered LORazepam 0.5 mg oral tablet See Instructions, TAKE 1 TABLET BY MOUTH TWO TIMES A DAY NEEDED FOR ANXIETY, # 28 tablet, 2 Refills, Maintenance, 12/05/22 12:25:00 EDT, [facility], 155, cm, [...] 0 Refills, Maintenance, 08/01/22 6:06:00 EST, Tablet, [facility] 3, Partial fill upon patient request if the prescription is for a schedule II opioid drug., 155, cm,... Start Date: 08/01/22 Status: Ordered Symbicort 160mcg/4.5mcg Inhaler 2, puffs, Inhalation, 2 times a day, # 3 each, Refills 5, Tot. Refills 5, Maintenance, 09/27/22 12:00:00 EST, Aerosol, Route to Pharmacy Electronically, [id number], [facility], replaces flovent inhaler, 155, cm,... Start [...] EST, Route to Pharmacy Electronically, [facility], Partial fill upon patient request [...] Refills, Maintenance, 08/14/23 13:38:00 EST, Chew Tablet, [facility], Partial fill upon patient request if the prescription is for a schedule II opioid drug., 155, cm, 08/14/23 13:0... Start Date: 08/14/23 Status: Ordered Vitamin D3 50,000 intl units oral capsule 1 capsule = 1,250 mcg, By Mouth, Every week, # 13 capsule, 1 Refills, Maintenance, 05/17/23 17:07:00 EDT, Capsule, [facility], Partial fill upon [...] 0 Refills, Maintenance, 11/01/23 14:07:00 EDT, Capsule, [facility], Partial fill u... Start [...] Confirmed 01/23/16 Active Memory change Confirmed Active *N/CCA/CC-[facility]- [phone]/Health prison, active care coordination Confirmed Active POTS (postural orthostatic tachycardia syndrome) Confirmed Active 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 Social History Social History Type Response Smoking Status Never smoker; Tobacc o user in household: No entered on: 04/11/16 Sex Patient Care team information Care Team Personnel Name: Vidhya Grace RN Position: [facility] RN Member Role: Primary Care Nurse Name: Sisi Hernandez MD Position: [facility] Physician - Primary Care Member Role: PCP Address: Address: [address] [place] [id number] Name: Lizzette To RN Position: [facility] RN Member Role: Primary Care Nurse Name: Karolina Adkins MD Position: [facility] Physician - Primary Care Member Role: Lifetime Consulting Physician Address: Address: [address] [place] [address] Geriatric & [place] [address]- Name: Isadora Godfrey RN Position: [facility] RN Member Role: Primary Care Nurse Name: Rossy Rowe RN Position: [facility] SN RN Member Role: Primary Care Nurse Name: Cindi Hayward RN Position: [facility] RN Member Role: Primary Care Nurse Name: Bela Mcmahon RN Position: [facility] Hospital Label Coder Member Role: Primary Care Nurse Name: Nicole Hernandez RN Position: [facility] RN Member Role: Primary Care Nurse Name: Zac Castillo RN Position: [facility] ED RN W/OE and Tasks Member Role: Primary Care Nurse Name: Jeanne Grande RN Position: [facility] RN Member Role: Primary Care Nurse Care Team Related Persons Name: JOHNNY BEAR Address: [address] [place] [address] Name: BEAR TURNER SECONDARY Address: home [address] [place] [address] Name: ISATU ECKERT Address: [place] [address] Name: ISAAC VERDE PRIMARY Address: home [address] [place] [address] Name: ADRY DURANT Name: PANCHO JEROME Address: [place] [address]
--- OUTSIDE RECORDS SUMMARY | 2024-04-27 10:08 | XMS_ITS | Continuity of Care Document ---
Author Organization [facility] Address [address], [address] [place] [address]- Care Team Providers Care Presser First Name Role Phone Sisi Hernandez MD Primary Care Physician En[place] [facility] Date(s): 09/10/22 - 10/10/22 [facility] [address] [place], [place] [address] Allergies, Adverse Reactions, Alerts Substance Reaction Severity Status cefoxitin Cough Tightness in throat Active vancomycin Throat itching Itching of skin Active Fruit 1 rash Allergy to fruit Active Sertraline Hydrochloride skin burning burning Active 1not specific Immunizations Given and Recorded Vaccine Date Status Refusal Reason influenza virus vaccine, inactivated 06/04/21 Adarhs rded influenza virus vaccine, inactivated 05/21/20 Adarsh [...] 13:12:00 EDT, Aerosol, Route to Pharmacy Electronically, [id number], [facility], ONLY ALBUTEROL HFA, CANCEL... Start Date: 02/15/22 Stop Date: 02/10/23 Status: Ordered Colace sodium 100 mg oral capsule 100 mg, 1, capsule, By Mouth, 2 times a day, PRN, # 30 capsule, Refills 0, Tot. Refills 0, Maintenance, for constipation, 07/31/22 11:03:00 EST, Route to Pharmacy Electronically, [facility], Partial fill upon patient request [...] 6 Refills, Maintenance, 09/04/22 8:50:00 EST, Solution, [facility], 155, cm, 08/14/22 13:52:00 [...] 0 Refills, Maintenance, 02/15/22 13:10:00 EDT, Aerosol, [facility], new dosage, 155, cm, [...] 07/31/22 11:03:00 EST, Route to Pharmacy Electronically, [facility], Partial fill upon patient request if the prescription is for a schedule... Start Date: 07/31/22 Status: Ordered LORazepam 0.5 mg oral tablet See Instructions, TAKE 1 TABLET BY MOUTH TWO TIMES A DAY NEEDED FOR ANXIETY, # 28 tablet, 2 Refills, Maintenance, 06/06/22 10:45:00 EST, [facility], 155, cm, 04/06/22 [...] Refills, Maintenance, 08/01/22 6:06:00 EST, REC Powder, [facility], Partial fill upon patient [...] 0 Refills, Maintenance, 08/01/22 6:06:00 EST, Tablet, [facility], Partial fill upon patient request if the prescription is for a schedule II opioid drug., 155, cm,... Start Date: 08/01/22 Status: Ordered Symbicort 160mcg/4.5mcg Inhaler 2, puffs, Inhalation, 2 times a day, # 3 each, Refills 5, Tot. Refills 5, Maintenance, 09/27/22 12:00:00 EST, Aerosol, Route to Pharmacy Electronically, [id number], [facility], replaces flovent inhaler, 155, cm,... [...] 07/31/22 11:03:00 EST, Route to Pharmacy Electronically, [facility], Partial fill upon patient [...] 3 Refills, Maintenance, 06/05/22 14:27:00 EST, Capsule, [facility], Partial fill upon patient [...] Bilateral leg pain Confirmed Active *BHN/CCA/CC-[facility]- [phone]/Health mcc, active care coordination Confirmed Active POTS (postural orthostatic tachycardia syndrome) Confirmed Active Medulloblastoma Confirmed Active RUQ pain Confirmed Active Social History Social History Type Response Smoking Status Never smoker; Tobacc o user in household: No entered on: 04/11/16 Sex Patient Care team information Care Team Personnel Name: Vidhya Grace RN Position: [facility] RN Member Role: Primary Care Nurse Name: Sisi Hernandez MD Position: [facility] Primary Care Physician Member Role: PCP Address: Address: [address] [place] [address] Name: Lizzette To RN Position: [facility] RN Member Role: Primary Care Nurse Name: Karolina Adkins MD Position: [facility] Physician -Physician Practices Member Role: Lifetime Consulting Physician Address: Address: [address] [place] [address] [facility] [address] Name: Isadora Godfrey RN Position: [facility] RN Member Role: Primary Care Nurse Name: Rossy Rowe RN Position: [facility] SN RN Member Role: Primary Care Nurse Name: Cindi Hayward Position: [facility] RN Member Role: Primary Care Nurse Name: Bela Mcmahon RN Position: [facility] Hospital Pupil Personnel Services Director Member Role: Primary Care Nurse Name: Nicole Hernandez RN Position: [facility] RN Member Role: Primary Care Nurse Name: Zac Castillo RN Position: [facility] ED RN W/OE and Tasks Member Role: Primary Care Nurse Name: Jeanne Grande RN Position: [facility] RN Member Role: Primary Care Nurse Care Team Related Persons Name: KATHRYN TURNERY Address: home [address] [place] [address] Name: BEAR TURNER SECONDARY Address: home [address] [place] [address] Name: ISATU ECKERT Address: [place] [address] Name: ISAAC VERDE PRIMARY Address: [address] [address] Name: ADRY DURANT Name: PANCHO JEROME Address: [place] [address]
--- OUTSIDE RECORDS SUMMARY | 2024-04-27 10:08 | XMS_ITS | Continuity of Care Document ---
Author Organization [facility] Address [address] [place] [address]- Care Team Providers Care Reservation Agent Name Role Phone Mary KEATING, Sisi Almanza Primary Care Physician Encounter [facility] Date(s): 10/08/23 - 11/07/23 [facility] [address] [place], [place] [address] Allergies, Adverse Reactions, Alerts Substance Reaction Severity [...] 13:12:00 EDT, Aerosol, Route to Pharmacy Electronically, [id number], [facility], ONLY ALBUTEROL HFA, CANCEL... Start Date: 02/15/22 Stop Date: 02/10/23 Status: Ordered Colace sodium 100 mg oral capsule 100 mg, 1, capsule, By Mouth, 2 times a day, PRN, # 180 capsule, Refills 3, Tot. Refills 3, Maintenance, for constipation, 08/09/23 14:49:00 EST, Route to Pharmacy Electronically, [facility], Partial fill upon patient request [...] 6 Refills, Maintenance, 08/07/23 13:45:00 EST, Solution, [facility], 155, cm, 06/07/23 20:58:00 EST, Height, 68.3, kg, 06/07/23 20:58:00 EST, Dry Weight Start Date: 08/07/23 Status: Ordered esomeprazole 40 mg oral enteric coated capsule TAKE 1 CAPSULE BY MOUTH EVERY DAY Start Date: 07/12/22 Status: Ordered Flovent HFA 220 mcg/inh inhalation aerosol 2 puffs, Inhalation, 2 times a day, new dosage, # 12 Gm, 0 Refills, Maintenance, 02/15/22 13:10:00 EDT, Aerosol, [facility], new dosage, 155, cm, 12/08/21 10:46:00 [...] 07/31/22 11:03:00 EST, Route to Pharmacy Electronically, [facility], Partial fill upon patient request if the prescription is for a schedule... Start Date: 07/31/22 Status: Ordered LORazepam 0.5 mg oral tablet See Instructions, TAKE 1 TABLET BY MOUTH TWO TIMES A DAY NEEDED FOR ANXIETY, # 28 tablet, 2 Refills, Maintenance, 12/05/22 12:25:00 EDT, [facility], 155, cm, 12/05/22 [...] 0 Refills, Maintenance, 08/01/22 6:06:00 EST, Tablet, [facility], Partial fill upon patient request if the prescription is for a schedule II opioid drug., 155, cm,... Start Date: 08/01/22 Status: Ordered Symbicort 160mcg/4.5mcg Inhaler 2, puffs, Inhalation, 2 times a day, # 3 each, Refills 5, Tot. Refills 5, Maintenance, 09/27/22 12:00:00 EST, Aerosol, Route to Pharmacy Electronically, [id number], [facility], replaces flovent inhaler, 155, cm,... Start [...] 07/31/22 11:03:00 EST, Route to Pharmacy Electronically, [facility], Partial fill upon patient [...] Refills, Maintenance, 08/14/23 13:38:00 EST, Chew Tablet, [facility], Partial fill upon patient request if the prescription is for a schedule II opioid drug., 155, cm, 08/14/23 13:0... Start Date: 08/14/23 Status: Ordered Vitamin D3 50,000 intl units oral capsule 1 capsule = 1,250 mcg, By Mouth, Every week, # 13 capsule, 1 Refills, Maintenance, 05/17/23 17:07:00 EDT, Capsule, [facility], Partial fill upon patient request if the prescription is for a schedule II opioid drug., 155, cm, 05/15/23 13:... Start Date: 05/17/23 Status: Ordered Vyvanse 10 mg oral capsule See Instructions, start 1 capsule By Mouth Daily in AM. Increase to 2 capsules as needed (Name brand only because generic not available), # 60 capsule, 0 Refills, Maintenance, 11/01/23 14:07:00 EDT, Capsule, [facility], Partial fill u... Start [...] Active GERD (gastroesophageal reflux disease) Confirmed Active Headache Confirmed Active Hemoptysis Confirmed Active Hypoglycemia, unspecified Confirmed Active IBS (irritable bowel syndrome) Confirmed 01/23/16 Active Memory change Confirmed Active Near syncope Confirmed Active Bilateral leg pain Confirmed Active *BHN/CCA/CC-[facility]- [phone]/Health long term, active care coordination Confirmed Active POTS (postural orthostatic tachycardia syndrome) Confirmed Active Medulloblastoma Confirmed Active RUQ pain Confirmed Active Tachy-sharmin syndrome Confirmed Active Social History Social History Type Response Smoking Status Never smoker; Tobacc o user in household: No entered on: 04/11/16 Sex Patient Care team information Care Team Personnel Name: Vidhya Grace RN Position: [facility] RN Member Role: Primary Care Nurse Name: Sisi Hernandez MD Position: [facility] Physician - Primary Care Member Role: PCP Address: Address: [address] [place] [address] Name: Lizzette To RN Position: [facility] SN RN Member Role: Primary Care Nurse Name: Karolina Adkins MD Position: [facility] Physician - Primary Care Member Role: Lifetime Consulting Physician Address: Address: [address] [place] [address] [facility] [address] Name: Isadora Godfrey RN Position: [facility] RN Member Role: Primary Care Nurse Name: Rossy Rowe RN Position: [facility] SN RN Member Role: Primary Care Nurse Name: Cindi Hayward RN Position: [facility] RN Member Role: Primary Care Nurse Name: Bela Mcmahon RN Position: [facility] Hospital Electrical Engineering Technician Member Role: Primary Care Nurse Name: Nicole Hernandez RN Position: [facility] RN Member Role: Primary Care Nurse Name: Zac Castillo RN Position: [facility] ED RN W/OE and Tasks Member Role: Primary Care Nurse Name: Jeanne Grande RN Position: [facility] RN Member Role: Primary Care Nurse Care Team Related Persons Name: BEAR TURNER Address: home [address] [place] [address] Name: BEAR TURNER SECONDARY Address: home [address] [place] [address] Name: ISATU ECKERT Address: [place] [address] Name: ISAAC VERDE PRIMARY Address: [address] [address] Name: ADRY DURANT Name: PANCHO JEROME Address: [place] [address]
--- OUTSIDE RECORDS SUMMARY | 2024-04-27 10:08 | XMS_ITS | Continuity of Care Document ---
Author Organization [facility] Address [address] [place] [address]- Care Team Providers Care Nursing Home Administrator Name Role Phone Sisi Hernandez MD Primary Care Physician [phone] Encounter [facility] Date(s): 05/15/23 - 05/22/23 [facility] [address] [place], [place] [address] Encounter Diagnosis Narcolepsy and cataplexy(Discharge Diagnosis) - 05/15/23 Memory change(Discharge Diagnosis) - 05/15/23 Tachy-sharmin syndrome(Discharge Diagnosis) - 05/15/23 Attending Physician: Sisi Hernandez MD Allergies, Adverse Reactions, Alerts Substance Reaction Severity Status vancomycin Throat itching Itching of skin Active Fruit 1 rash Allergy to fruit Active Sertraline Hydrochloride skin burning burning Active cefoxitin Cough Tightness in throat Active 1not specific Immunizations Given and Recorded [...] Refills, Maintenance, 12/21/22 14:40:00 EDT, ER Capsule, [facility], Partial fill upon patient request if the prescription is for a schedule II opioid drug., 155, cm, 12/05/22 11:... Start Date: 12/21/22 Status: Ordered albuterol CFC free 90 mcg/inh inhalation aerosol 2, puffs, Inhalation, Every 6 hours, PRN, # 2 each, Refills 11, Tot. Refills 11, Maintenance, 02/15/22 13:12:00 EDT, Aerosol, Route to Pharmacy Electronically, [id number], [facility], ONLY ALBUTEROL HFA, CANCEL... Start Date: 02/15/22 Stop Date: 02/10/23 Status: Ordered Colace sodium 100 mg oral capsule 100 mg, 1, capsule, By Mouth, 2 times a day, PRN, # 30 capsule, Refills 0, Tot. Refills 0, Maintenance, for constipation, 07/31/22 11:03:00 EST, Route to Pharmacy Electronically, [facility], Partial fill upon patient request if [...] 6 Refills, Maintenance, 09/04/22 8:50:00 EST, Solution, [facility], 155, cm, 08/14/22 13:52:00 [...] 0 Refills, Maintenance, 02/15/22 13:10:00 EDT, Aerosol, [facility], new dosage, 155, [...] 07/31/22 11:03:00 EST, Route to Pharmacy Electronically, [facility], Partial fill upon patient request if the prescription is for a schedule... Start Date: 07/31/22 Status: Ordered LORazepam 0.5 mg oral tablet See Instructions, TAKE 1 TABLET BY MOUTH TWO TIMES A DAY NEEDED FOR ANXIETY, # 28 tablet, 2 Refills, Maintenance, 12/05/22 12:25:00 EDT, [facility], 155, cm, 12/05/22 11:40:00 EDT, Height, [...] 0 Refills, Maintenance, 08/01/22 6:06:00 EST, Tablet, [facility], Partial fill upon patient request if the prescription is for a schedule II opioid drug., 155, cm,... Start Date: 08/01/22 Status: Ordered Symbicort 160mcg/4.5mcg Inhaler 2, puffs, Inhalation, 2 times a day, # 3 each, Refills 5, Tot. Refills 5, Maintenance, 09/27/22 12:00:00 EST, Aerosol, Route to Pharmacy Electronically, [id number], [facility], replaces flovent inhaler, 155, cm,... [...] 07/31/22 11:03:00 EST, Route to Pharmacy Electronically, [facility], Partial fill upon patient request if the prescription is... Start Date: 07/31/22 Status: Ordered verapamil 240 mg/12 hours oral tablet, extended release TAKE 1 TABLET BY MOUTH DAILY. Start Date: 02/05/23 Status: Ordered Vitamin D3 50,000 intl units oral capsule 1 capsule = 1,250 mcg, By Mouth, Every week, # 13 capsule, 1 Refills, Maintenance, 05/17/23 17:07:00 EDT, Capsule, [facility], Partial fill upon patient [...] Bilateral leg pain Confirmed Active *BHN/CCA/CC-[facility]- [phone]/Health jail, active care coordination Confirmed Active POTS (postural orthostatic tachycardia syndrome) Confirmed Active Medulloblastoma Confirmed Active RUQ pain Confirmed Active Tachy-sharmin syndrome Confirmed Active Diagnosis Diagnosis Type Effective Dates Health Status Clinical Service Informant Narcolepsy and cataplexy Discharge Diagnosis 10/18/23 Memory change Discharge Diagnosis 05/15/23 Tachy-sharmin syndrome Discharge Diagnosis 05/15/23 Vital Signs Most recent to oldest [Reference Range]: 1 Height 155 cm (05/15/23 1:46 PM) Weight 68.3 kg (05/15/23 1:46 PM) Oxygen Saturation [94-100 %] 99 % (05/15/23 1:46 PM) Pulse Rate [55-90 bpm] 85 bpm (05/15/23 1:46 PM) Body Mass Index [18.5-24.99 kg/m2] 28.43 kg/m2 *H* (05/15/23 1:46 PM) Blood Pressure [90-138/55-84 mm Hg] 111/ 74mm Hg (05/15/23 1:46 PM) Temperature [96.8-100.4 DegF] 98.3 DegF (05/15/23 1:46 PM) Mode of Delivery (Oxygen) Room air (05/15/23 1:46 PM) Blood pressure sites Arm, right (05/15/23 1:46 PM) Temperature Route Oral (05/15/23 1:46 PM) Dry Weight 68.3 kg (05/15/23 1:46 PM) Weight Obtained Via Standing scale (05/15/23 1:46 PM) Dry Weight Obtained Via Standing scale (05/15/23 1:46 PM) Social History Social History Type Response Smoking Status Never smoker; Tobacc o user in household: No entered on: 04/11/16 Sex Note * Melita Dutta: PERFORM, SIGN, VERIFY Event Display: Patient Education/Instruction Authored Date: [id number] [facility] Clinical Summary Name ANSELMO TURNER Age 32 Years 1990 PCP Sisi Hernandez MD PCP Visit Date 05/15/2023 13:03:00 Additional Instructions: Scheduled Appointments?? Future Appointments ?*[facility] ?[address] ?[place],??[place],??[address] ?Phone:??--?Fax:??-- ?Appt. Date:??06/21/2023?9:00 AM ?Scheduled Provider:??Jonathan KEATING , Nita Ivan Follow-Up Instructions ?? Diagnosis Medications: Please continue your medications until treatment is completed or stopped by your provider. Discuss any questions related to medications with your provider. Medications to Continue with No Changes These medications were not printed or sent to your pharmacy Acetaminophen (Tylenol 325 mg oral tablet) 3 tab(s) Oral every 6 hours as needed for pain. Refills:0. Next Dose: Albuterol (albuterol CFC free 90 mcg/inh inhalation aerosol) 2 puff(s) Inhalation every 6 hours as needed for wheezing for 30 Days. Refills: 11. Next Dose: Amphetamine-Dextroamphetamine (Adderall XR 20 mg oral capsule, extended release) 1 capsule Oral Daily in the morning. Refills: 0. Next Dose: Budesonide-Formoterol (Symbicort 160mcg/4.5mcg Inhaler) 2 puff(s) Inhalation twice a day. Refills: 5. Next Dose: Cyanocobalamin (cyanocobalamin 1000 mcg/ml injectable solution) 1 Milliliter Intramuscular every 30days. Refills: 6. Next Dose: Docusate (Colace sodium 100 mg oral capsule) 1 capsule Oral twice a day as needed for constipation.Refills: 0. Next Dose: Durable Medical Equipment (Compression Stockings) KNEE HIGH COMPRESSION STOCKINGS 15-20mm HG use daily 2 pairs every 3 months Dx: POTS syndrome R00.00 HEIGHT 154CM WEIGHT 68KG LIFETIME USE. Refills: 11. Next Dose: Durable Medical Equipment (Freestyle Lancets) dx: e16.2 use three times per day hypoglycemia. Refills: 5. Next Dose: Durable Medical Equipment (Freestyle Lite Monitor) dx:e16.2 hypoglycemia use three times per day. Refills: 0. Next Dose: Durable Medical Equipment (Freestyle Test Strips) dx: e16.2 use three times per day hypoglycemia. Refills: 5. Next Dose: Durable Medical Equipment (syringe and needles) syringe 3cc needles 25 g X 5/8 inches for use with b12. Refills: 3. Next Dose: Esomeprazole (esomeprazole 40 mg oral enteric coated capsule) TAKE 1 CAPSULE BY MOUTH EVERY DAY. Next Dose: Fluticasone (Flovent HFA 220 mcg/inh inhalation aerosol) 2 puff(s) Inhalation twice a day. new dosage. Refills: 0. Next Dose: Ibuprofen (ibuprofen 800 mg oral tablet) 1 tab(s) Oral every 8 hours. Refills: 0. Next Dose: Lorazepam (LORazepam 0.5 mg oral tablet) TAKE 1 TABLET BY MOUTH TWO TIMES A DAY NEEDED FOR ANXIETY. Refills: 2. Next Dose: Metoprolol (Metoprolol Tartrate 50 mg oral tablet) Next Dose: Nitroglycerin (nitroglycerin 0.4 mg sublingual tablet) 1 tab(s) Sublingual every 5 minutes as needed for chest pain. Next Dose: PEG Electrolyte Solution (PEG-3350 with Electrolytes Lemon (Eqv-NuLYTELY) oral powder for reconstitution) MIX AND DRINK 240 ML BY MOUTH EVERY 10 MINUTES UNTIL FECAL EFFLUENT IS CLEAR. Next Dose: Senna (senna - oral tablet) 2 tab(s) Oral Daily at Bedtime as needed for constipation. Refills: 0. Next Dose: Verapamil (verapamil 240 mg/12 hours oral tablet, extended release) TAKE 1 TABLET BY MOUTH DAILY.. Next Dose: No Longer Take the Following Medications Polyethylene Glycol 3350 (MiraLax oral powder for reconstitution) 17 gram Oral Daily. dissolve in water before taking. Refills: 0. Contact Your Physician Prior to Taking the Following Medications Cholecalciferol (Vitamin D3 1000 intl units oral capsule) 1 capsule Oral Daily. Refills: 3. Allergy Info:?? Sertraline Hydrochloride; Fruit; vancomycin; cefoxitin Medications Given This Visit Future Orders ?TSH with T4 Reflex (Adults Only)? Order Date:05/15/23?- Complete on or after?05/15/23 ?Vitamin D 25 Hydroxy Level? Order Date:05/15/23?- Complete on or after?05/15/23 ?Vitamin B12 Level? Order Date:05/15/23?- Complete on or after?05/15/23 ?Magnesium Level? Order Date:05/15/23?- Complete on or after?05/15/23 ?Potassium Level? Order Date:05/15/23?- Complete on or after?05/15/23 ?Ammonia Venous? Order Date:05/15/23?- Complete on or after?05/15/23 Vital Signs Height 155 cm Weight 68.3 kg BMI 28.43 kg/m2 Blood Pressure 111 mm Hg/74 mm Hg Temperature 98.3 DegF Pulse Rate 85 bpm Respiratory Rate 02 Sat Mode of Delivery 99 %/Room air You can now view a summary of your hospital visit from the comfort of your home through a free online portal called [employer]. [employer] is a website that allows you to securely view your medical information including discharge summary, medications and follow-up visits. ??You can alsosend a secure electronic message to your doctor???s office to request appointments, renew medications or just ask a question. You can enroll at [email or web address] or register during your next office visit. Disclaimer:?? The information provided is of a general nature and is intended to be used in conjunction with the recommendations and advice of your health care practitioner. ??Every effort has been made to ensure that the information provided is accurate and complete at the time it is provided to you however, as your needs change, or, as new ??information becomes available, different or additional instructions may be required. If you have questions, please consult with your primary care provider or pharmacist, as appropriate. ??This information is not intended to serve as substitution for assessment and evaluation by a qualified health care provider. If you do not have a primary care provider, you may find a [facility] provider by calling [facility] [employer] [facility] at [phone]. [facility], in keeping with [facility] guidance, no longer requires face masks for staff, patientsor visitors in most situations. Similar to time spent indoors at other locations, there is the chance that you were exposed to respiratory viruses during your time with us (such as flu or COVID-19).? If you develop symptoms concerning for a viral respiratory infection, please seek testing (and treatment if indicated) from your medical provider or home test kit. For information about the plan of care including goals and instructions for your diagnosis, please see the patient education orders section of this document. Patient Education Materials?? The content of this educational material or handout may have been modified, supplemented, or adapted from its original content and format to support your individualized medical care. Patient Care team information Care Team Personnel Name: Vidhya Grace RN Position: [facility] RN Member Role: Primary Care Nurse Name: Sisi Hernandez MD Position: [facility] Physician - Primary Care Member Role: PCP Address: Address: [address] [place] [address] Name: Lizzette To RN Position: [facility] SN RN Member Role: Primary Care Nurse Name: Karolina Adkins MD Position: [facility] Physician - Primary Care Member Role: Lifetime Consulting Physician Address: Address: [address] [place] [address] [facility] [place], [place] [facility] Name: Isadora Godfrey RN Position: [facility] RN Member Role: Primary Care Nurse Name: Rossy Rowe RN Position: [facility] SN RN Member Role: Primary Care Nurse Name: Cindi Hayward Position: [facility] RN Member Role: Primary Care Nurse Name: Bela Mcmahon RN Position: [facility] Contract Project Manager Member Role: Primary Care Nurse Name: Nicole Hernandez RN Position: [facility] RN Member Role: Primary Care Nurse Name: Zac Castillo RN Position: [facility] ED RN W/OE and Tasks Member Role: Primary Care Nurse Name: Jeanne Grande RN Position: [facility] RN Member Role: Primary Care Nurse Care Team Related Persons Name: BEAR TURNER Address: home [address] [place] [address] Name: BEAR TURNER SECONDARY Address: home [address] [place] [address] Name: ISATU ECKERT Address: home [place], [place] Name: ISAAC VERDE PRIMARY Address: home [address] [place] [address] Name: ADYR DURANT Name: PANCHO JEROME Address: [place] [address]
--- OUTSIDE RECORDS SUMMARY | 2024-04-27 10:08 | XMS_ITS | Continuity of Care Document ---
Author Organization [facility] Address [address] [place] [address]- Care Team Providers Care Polisher Aluminum Name Role Phone Sisi Hernandez MD Primary Care Physician [phone] Encounter [facility] [place] Date(s): 06/15/22 - 07/18/22 [facility] [address] [place], [place] [address] Attending Physician: Eddie Obrien MD Referring Physician: Sisi Hernandez MD Allergies, [...] 11/16/21 23:51:00 EDT, Route to Pharmacy Electronically, [facility], Partial fill upon patient [...] 13:12:00 EDT, Aerosol, Route to Pharmacy Electronically, [id number], [facility], ONLY ALBUTEROL HFA, CANCEL... [...] 6 Refills, Maintenance, 10/03/21 12:18:00 EST, Solution, [facility], 155, cm, 09/27/21 15:08:00 EST, Height, 68.5, kg, 06/03/20 13:18:00 EST, Dry Weight Start Date: 10/03/21 Status: Ordered cyanocobalamin 1000 mcg/ml injectable solution 1 mL = 1,000 mcg, Intramuscular, Every 30 days, # 3 mL, 6 Refills, Maintenance, 06/06/22 12:08:00 EST, Solution, [facility], 155, cm, 04/06/22 14:56:00 [...] 0 Refills, Maintenance, 02/15/22 13:10:00 EDT, Aerosol, [facility], new dosage, 155, cm, [...] 11/16/21 23:51:00 EDT, Route to Pharmacy Electronically, [facility], Partial fill upon patient request if the prescription is... Start Date: 11/16/21 Status: Ordered LORazepam 0.5 mg oral tablet See Instructions, TAKE 1 TABLET BY MOUTH TWO TIMES A DAY NEEDED FOR ANXIETY, # 28 tablet, 2 Refills, Maintenance, 06/06/22 10:45:00 EST, [facility], 155, cm, 04/06/22 [...] Refills, Maintenance, 11/16/21 23:51:00 EDT, DIS Tablet, [facility], Partial fill upon patient request if the prescription is for a schedule II o... Start Date: 11/16/21 Status: Ordered Peridex 0.12% liquid 15 mL = 0.018 Gm, By Mouth, 2 times a day, # 420 mL, 0 Refills, Maintenance, 01/18/22 8:47:00 EDT, Liquid, [facility] 3, Partial fill upon patient [...] 3 Refills, Maintenance, 06/05/22 14:27:00 EST, Capsule, [facility], Partial fill upon patient [...] Confirmed Active Bilateral leg pain Confirmed Active *BHN/CCA/CC-[facility]- [phone]/Health alf, active care coordination Confirmed Active POTS (postural orthostatic tachycardia syndrome) Confirmed Active Medulloblastoma Confirmed Active RUQ pain Confirmed Active Social History Social History Type Response Smoking Status Never smoker; Tobacc o user in household: No entered on: 04/11/16 Sex Female Patient Care team information Care Team Personnel Name: Vidhya Grace RN Position: [facility] RN Member Role: Primary Care Nurse Name: Sisi Hernandez MD Position: [facility] Primary Care Physician Member Role: PCP Address: Address: [address] [place] [id number] Name: Lizzette To RN Position: [facility] RN Member Role: Primary Care Nurse Name: Karolina Adkins MD Position: [facility] Physician -Physician Practices Member Role: Lifetime Consulting Physician Address: Address: [address] [place] [address] [facility] [place] [address]- Name: Isadora Godfrey RN Position: [facility] RN Member Role: Primary Care Nurse Name: Rossy Rowe RN Position: [facility] SN RN Member Role: Primary Care Nurse Name: Bela Mcmahon RN Position: [facility] Hospital Painter Set Member Role: Primary Care Nurse Name: Nicole Hernandez RN Position: [facility] RN Member Role: Primary Care Nurse Name: Zac Castillo RN Position: [facility] ED RN W/OE and Tasks Member Role: Primary Care Nurse Name: Jeanne Grande RN Position: [facility] RN Member Role: Primary Care Nurse Care Team Related Persons Name: JOHNNY BEAR Address: home [address] [place] [id number] Name: ISATU ECKERT Address: [place] [address] Name: ADRY DURANT Name: PANCHO JEROME Address: [place] [address]
--- OUTSIDE RECORDS SUMMARY | 2024-04-27 10:08 | XMS_ITS | Continuity of Care Document ---
Author Organization [facility] Address [address] [place] [address]- Care Team Providers Care Industrial Accountant Name Role Phone Sisi Hernandez MD Primary Care Physician Encounter [facility] Date(s): 01/09/21 - 02/08/21 [facility] [address] [place], [place] [address] Allergies, Adverse Reactions, Alerts Substance Reaction [...] 8:50:00 EDT, Aerosol, Route to Pharmacy Electronically, [id number], [facility], 155, cm, 06/03/20 13:15:00 [...] 6 Refills, Maintenance, 06/15/20 11:56:00 EST, Solution, [facility], 155, cm, 06/03/20 13:15:00 EST, Height, 68.5, kg, 06/03/20 13:18:00 EST, Dry Weight Start Date: 06/15/20 Status: Ordered dilTIAZem 240 mg/24 hours oral tablet, extended release 1 tablet = 240 mg, By Mouth, Daily, FURTHER REFILLS BY ATTENDANT LODGING FACILITIES, # 90 tablet, 0 Refills, Maintenance, 11/27/19 8:57:00 EDT, ER Tablet, [facility], 155, cm, 10/07/19 12:25:00 [...] tablet, 2 Refills, Maintenance, 05/06/20 15:17:00 EDT, [facility], 155, cm, 05/03/20 [...] 15:30:53 EST, Aerosol, Route to Pharmacy Electronically, [id number]... Start Date: 09/12/18 Stop Date: 02/09/19 Status: Ordered ProAir HFA 90 mcg/inh inhalation aerosol with adapter 2, puffs, Inhalation, Every 4 hours, PRN, use with spacer chamber BRAND NAME MEDICALLY NECESSARY, #8.5 Gm, Refills 0, Tot. Refills 0, Maintenance, 12/05/20 15:38:00 EDT, Aerosol, Route to Pharmacy Electronically, [id number]... Start Date: 12/05/20 Status: Ordered ramelteon 8 mg oral tablet 1 tablet = 8 mg, By Mouth, Daily at bedtime, # 30 tablet, 11 Refills, Maintenance, 12/02/20 8:48:00EDT, [facility], Partial fill upon patient [...] 2 Refills, Maintenance, 08/04/20 12:39:00 EST, Capsule, [facility], Partial fill upon patient [...] Active Bilateral leg pain(Confirmed) Active *BHN/CCA/CC-[facility]- [phone]/Health [facility], active care coordination(Confirmed) Active POTS (postural orthostatic t achycardia syndrome)(Confirmed) Active Medulloblastoma(Confirmed) Active RUQ pain(Confirmed) Active Viral URI(Confirmed) Active Social History Social History Type Response Smoking Status Never smoker; Tobacc o user in household: No entered on: 04/11/16 Sex
--- OUTSIDE RECORDS SUMMARY | 2024-04-27 10:08 | XMS_ITS | Continuity of Care Document ---
Author Organization [facility] Address [address] [place] [address]- Care Team Providers Care Solar Photovoltaic Crew Lead Name Role Phone Mary KEATING, Sisi Almanza Primary Care Physician Encounter [facility] Date(s): 08/18/21 - 09/17/[address] [address] Allergies, Adverse Reactions, Alerts Substance Reaction [...] pcp Medications Adderall 5 mg oral tablet See Instructions, start 1 tablet By Mouth daily. Increase weekly by 1 tablet as need to max 3 timesa day. no later than 2 PM. take with long acting Adderall, # 90 tablet, 0 Refills, Maintenance, 08/24/21 13:15:00 EST, Tablet, [facility] Start Date: 08/24/21 Status: Ordered Adderall XR 15 mg oral capsule, extended release 1 capsule = 15 mg, By Mouth, 2 times a day, Change from 10 mg XR and increase to 2 times per day. To take with short acting 5 mg, # 60 capsule, 0 Refills, Maintenance, 08/24/21 13:13:00 EST, ER Capsule, [facility], Partial fill upon leonardo... Start Date: 08/24/21 Status: Ordered albuterol CFC free 90 mcg/inh inhalation aerosol 2, puffs, Inhalation, Every 6 hours, PRN, # 2 each, Refills 11, Tot. Refills 11, Maintenance, 12/02/20 8:50:00 EDT, Aerosol, Route to Pharmacy Electronically, [id number], [facility], 155, cm, 06/03/20 13:15:00 [...] 6 Refills, Maintenance, 06/15/20 11:56:00 EST, Solution, [facility], 155, cm, 06/03/20 13:15:00 EST, Height, 68.5, kg, 06/03/20 13:18:00 EST, Dry Weight Start Date: 06/15/20 Status: Ordered Diflucan 150 mg oral tablet 1 tablet = 150 mg, By Mouth, Every 48 hours, # 2 tablet, 0 Refills, Soft Stop, 07/31/21 10:46:00 EST, Tablet, [facility], Partial fill upon patient request if the prescription is for a schedule II opioid drug., 155, cm, 06/09/21 14:21:00... Start Date: 07/31/21 Status: Ordered dilTIAZem 240 mg/24 hours oral tablet, extended release 1 tablet = 240 mg, By Mouth, Daily, FURTHER REFILLS BY FUEL MANAGER, # 90 tablet, 0 Refills, Maintenance, 11/27/19 8:57:00 EDT, ER Tablet, [facility], 155, cm, 10/07/19 12:25:00 [...] tablet, 2 Refills, Maintenance, 05/06/20 15:17:00 EDT, [facility], 155, cm, 05/03/20 [...] 15:30:53 EST, Aerosol, Route to Pharmacy Electronically, [id number]... Start Date: 09/12/18 Stop Date: 02/09/19 Status: Ordered ProAir HFA 90 mcg/inh inhalation aerosol with adapter 2, puffs, Inhalation, Every 4 hours, PRN, use with spacer chamber BRAND NAME MEDICALLY NECESSARY, #8.5 Gm, Refills 0, Tot. Refills 0, Maintenance, 12/05/20 15:38:00 EDT, Aerosol, Route to Pharmacy Electronically, [id number]... Start Date: 12/05/20 Status: Ordered Sunosi 75 mg oral tablet [...] 2 Refills, Maintenance, 08/04/20 12:39:00 EST, Capsule, [facility] [...] Active Bilateral leg pain(Confirmed) Active *BHN/CCA/CC-[facility]- [phone]/[facility], active care coordination(Confirmed) Active POTS (postural orthostatic t achycardia syndrome)(Confirmed) Active Medulloblastoma(Confirmed) Active RUQ pain(Confirmed) Active Social History Social History Type Response Smoking Status Never smoker; Tobacc o user in household: No entered on: 04/11/16 Sex Female
--- OUTSIDE RECORDS SUMMARY | 2024-04-27 10:09 | XMS_ITS | Continuity of Care Document ---
Author Organization [facility] Address [address] [place] [address]- Care Team Providers Care Bridge Ironworker Helper Name Role Phone Mary KEATING, Sisi Almanza Primary Care Physician [place] [facility](s): 06/15/22 - 07/15/22 [facility] [address] [place], [place] [address] Allergies, Adverse Reactions, Alerts Substance Reaction Severity Status cefoxitin Cough Tightness in throat Active Sertraline Hydrochloride burning Act alessandra Fruit rash Allergy to fruit Active vancomycin Throat itching Itching of skin Active Immunizations Given and Recorded Vaccine Date [...] 11/16/21 23:51:00 EDT, Route to Pharmacy Electronically, [facility], Partial fill upon patient [...] 13:12:00 EDT, Aerosol, Route to Pharmacy Electronically, [id number], [facility], ONLY ALBUTEROL HFA, CANCEL... [...] 6 Refills, Maintenance, 10/03/21 12:18:00 EST, Solution, [facility], 155, cm, 09/27/21 15:08:00 EST, Height, 68.5, kg, 06/03/20 13:18:00 EST, Dry Weight Start Date: 10/03/21 Status: Ordered cyanocobalamin 1000 mcg/ml injectable solution 1 mL = 1,000 mcg, Intramuscular, Every 30 days, # 3 mL, 6 Refills, Maintenance, 06/06/22 12:08:00 EST, Solution, [facility] 3, 155, cm, 04/06/22 14:56:00 EDT, Height, 67.5, kg, 04/06/22 14:56:00 EDT, Dry Weight Start Date: 06/06/22 Status: Ordered dilTIAZem 240 mg/24 hours oral tablet, extended release 1 tablet = 240 mg, By Mouth, Daily, FURTHER REFILLS BY MOTOR BOSS, # 90 tablet, 0 Refills, Maintenance, 11/27/19 8:57:00 EDT, ER Tablet, [facility], 155, cm, 10/07/19 12:25:00 EDT, Height, 63, kg, 07/01/19 19:58:00 EST, Dry Weight Start Date: 11/27/19 Status: Ordered esomeprazole 40 mg oral enteric coated capsule TAKE 1 CAPSULE BY MOUTH EVERY DAY Start Date: 07/12/22 Status: Ordered Flovent HFA 220 mcg/inh inhalation aerosol 2 puffs, Inhalation, 2 times a day, new dosage, # 12 Gm, 0 Refills, Maintenance, 02/15/22 13:10:00 EDT, Aerosol, [facility], new dosage, 155, cm, [...] 11/16/21 23:51:00 EDT, Route to Pharmacy Electronically, [facility], Partial fill upon patient request if the prescription is... Start Date: 11/16/21 Status: Ordered LORazepam 0.5 mg oral tablet See Instructions, TAKE 1 TABLET BY MOUTH TWO TIMES A DAY NEEDED FOR ANXIETY, # 28 tablet, 2 Refills, Maintenance, 06/06/22 10:45:00 EST, [facility], 155, cm, 04/06/22 [...] Refills, Maintenance, 11/16/21 23:51:00 EDT, DIS Tablet, [facility], Partial fill upon patient request if the prescription is for a schedule II o... Start Date: 11/16/21 Status: Ordered Peridex 0.12% liquid 15 mL = 0.018 Gm, By Mouth, 2 times a day, # 420 mL, 0 Refills, Maintenance, 01/18/22 8:47:00 EDT, Liquid, [facility], Partial fill upon patient [...] 3 Refills, Maintenance, 06/05/22 14:27:00 EST, Capsule, [facility], Partial fill upon patient request if [...] Bilateral leg pain Confirmed Active *BHN/CCA/CC-[facility]- [phone]/Health detention, active care coordination Confirmed Active POTS (postural orthostatic tachycardia syndrome) Confirmed Active Medulloblastoma Confirmed Active RUQ pain Confirmed Active Social History Social History Type Response Smoking Status Never smoker; Tobacc o user in household: No entered on: 04/11/16 Sex Female Patient Care team information Care Team Personnel Name: Sanjay MONTELONGOVidhya Position: [facility] RN Member Role: Primary Care Nurse Name: Sisi Hernandez MD Position: [facility] Primary Care Physician Member Role: PCP Address: Address: [address] [place] [address]- Name: Lizzette To RN Position: [facility] RN Member Role: Primary Care Nurse Name: Karolina Adkins MD Position: [facility] Physician -Physician Practices Member Role: Lifetime Consulting Physician Address: Address: [address] [place] [address] [facility] [place], [place] - Name: Isadora Godfrey RN Position: [facility] RN Member Role: Primary Care Nurse Name: Rossy Rowe RN Position: [facility] SN RN Member Role: Primary Care Nurse Name: Bela Mcmahon RN Position: [facility] [employer] Sorter Member Role: Primary Care Nurse Name: Nicole Hernandez RN Position: [facility] RN Member Role: Primary Care Nurse Name: Zac Castillo RN Position: [facility] ED RN W/OE and Tasks Member Role: Primary Care Nurse Name: Jeanne Grande RN Position: [facility] RN Member Role: Primary Care Nurse Care Team Related Persons Name: KATHRYN TURNERY Address: home [address] [place] [address] Name: ISATU ECKERT Address: [place] [address] Name: ADRY DURANT Name: PANCHO JEROME Address: [place] [address]
--- OUTSIDE RECORDS SUMMARY | 2024-04-27 10:09 | XMS_ITS | Continuity of Care Document ---
Author Organization [facility] Address [address], [address] Floor, [address] [place] [address]- Care Team Providers Care Color Expert Name Role Phone Sisi Hernandez MD Primary Care Physician [phone] Encounter [facility] Date(s): 09/27/20 - 10/27/20 [facility] [address] [facility], [address]rd Floor, [address] [place] [address] Attending Physician: Admjuan josé, Angel Admitting Physician: AdmtrAngel Referring Physician: Admtr, Ar8 [...] 8:59:00 EDT, Aerosol, Route to Pharmacy Electronically, [id number], [facility], 155, cm, 10/07/19 12:25:00 E... [...] 6 Refills, Maintenance, 06/15/20 11:56:00 EST, Solution, [facility], 155, cm, 06/03/20 13:15:00 EST, Height, 68.5, kg, 06/03/20 13:18:00 EST, Dry Weight Start Date: 06/15/20 Status: Ordered dilTIAZem 240 mg/24 hours oral tablet, extended release 1 tablet = 240 mg, By Mouth, Daily, FURTHER REFILLS BY DERRICK CAR OPERATOR, # 90 tablet, 0 Refills, Maintenance, 11/27/19 8:57:00 EDT, ER Tablet, [facility], 155, cm, 10/07/19 12:25:00 EDT, [...] 2 Refills, Maintenance, 05/06/20 15:17:00 EDT, [facility], 155, cm, 05/03/20 18:55:00 EDT, [...] 15:30:53 EST, Aerosol, Route to Pharmacy Electronically, [id number]... Start Date: 09/12/18 Stop Date: 02/09/19 Status: [...] Refills, Maintenance, 08/04/20 12:39:00 EST, Capsule, [facility], Partial fill upon patient request [...] Active Bilateral leg pain(Confirmed) Active *BHN/CCA/CC-[facility]- [phone]/[facility], active care coordination(Confirmed) Active POTS (postural orthostatic t achycardia syndrome)(Confirmed) Active Medulloblastoma(Confirmed) Active RUQ pain(Confirmed) Active Viral URI(Confirmed) Active Social History Social History Type Response Smoking Status Never smoker; Tobacc o user in household: No entered on: 04/11/16 Sex
--- OUTSIDE RECORDS SUMMARY | 2024-04-27 10:09 | XMS_ITS | Continuity of Care Document ---
Author Organization [facility] Address [address] [place] [address]- Care Team Providers Care Poundmaster Name Role Phone Sisi Hernandez MD Primary Care Physician [phone] Encounter [facility] Date(s): 02/14/23 - 03/16/23 [facility] [address] [place], [place] [address] Allergies, Adverse Reactions, Alerts Substance Reaction Severity Status cefoxitin Cough Tightness in throat Active vancomycin Throat itching Itching of skin Active Sertraline Hydrochloride skin burning burning Active Fruit 1 rash Allergy to fruit [...] Refills, Maintenance, 12/21/22 14:40:00 EDT, ER Capsule, [facility], Partial fill upon patient request if the prescription is for a schedule II opioid drug., 155, cm, 12/05/22 11:... Start Date: 12/21/22 Status: Ordered albuterol CFC free 90 mcg/inh inhalation aerosol 2, puffs, Inhalation, Every 6 hours, PRN, # 2 each, Refills 11, Tot. Refills 11, Maintenance, 02/15/22 13:12:00 EDT, Aerosol, Route to Pharmacy Electronically, [id number], [facility], ONLY ALBUTEROL HFA, CANCEL... Start Date: 02/15/22 Stop Date: 02/10/23 Status: Ordered Colace sodium 100 mg oral capsule 100 mg, 1, capsule, By Mouth, 2 times a day, PRN, # 30 capsule, Refills 0, Tot. Refills 0, Maintenance, for constipation, 07/31/22 11:03:00 EST, Route to Pharmacy Electronically, [facility], Partial fill upon patient request [...] 6 Refills, Maintenance, 09/04/22 8:50:00 EST, Solution, [facility], 155, cm, 08/14/22 13:52:00 EST, Height, 68.1, kg, 08/14/22 13:52:00 EST, Dry Weight Start Date: 09/04/22 Status: Ordered esomeprazole 40 mg oral enteric coated capsule TAKE 1 CAPSULE BY MOUTH EVERY DAY Start Date: 07/12/22 Status: Ordered Flovent HFA 220 mcg/inh inhalation aerosol 2 puffs, Inhalation, 2 times a day, new dosage, # 12 Gm, 0 Refills, Maintenance, 02/15/22 13:10:00 EDT, Aerosol, [facility], new dosage, 155, cm, 12/08/21 [...] 07/31/22 11:03:00 EST, Route to Pharmacy Electronically, [facility], Partial fill upon patient request if the prescription is for a schedule... Start Date: 07/31/22 Status: Ordered LORazepam 0.5 mg oral tablet See Instructions, TAKE 1 TABLET BY MOUTH TWO TIMES A DAY NEEDED FOR ANXIETY, # 28 tablet, 2 Refills, Maintenance, 12/05/22 12:25:00 EDT, [facility], 155, cm, 12/05/22 11:40:00 [...] Refills, Maintenance, 08/01/22 6:06:00 EST, REC Powder, [facility] 3, Partial fill upon [...] 6:06:00 EST, Tablet, [facility] 3, Partial fill upon patient request if the prescription is for a schedule II opioid drug., 155, cm,... Start Date: 08/01/22 Status: Ordered Symbicort 160mcg/4.5mcg Inhaler 2, puffs, Inhalation, 2 times a day, # 3 each, Refills 5, Tot. Refills 5, Maintenance, 09/27/22 12:00:00 EST, Aerosol, Route to Pharmacy Electronically, [id number], [facility], replaces flovent inhaler, 155, cm,... [...] 07/31/22 11:03:00 EST, Route to Pharmacy Electronically, [facility], Partial fill upon patient request [...] Bilateral leg pain Confirmed Active *BHN/CCA/CC-[facility]- [phone]/Health [facility], active care coordination Confirmed Active POTS (postural orthostatic tachycardia syndrome) Confirmed Active Medulloblastoma Confirmed Active RUQ pain Confirmed Active Tachy-sharmin syndrome Confirmed Active Social History Social History Type Response Smoking Status Never smoker; Tobacc o user in household: No entered on: 04/11/16 Sex Patient Care team information Care Team Personnel Name: Vidhya Grace RN Position: [facility] RN Member Role: Primary Care Nurse Name: Sisi Hernandez MD Position: [facility] Physician - Primary Care Member Role: PCP Address: Address: [address] [place] [address] Name: Lizzette To RN Position: [facility] RN Member Role: Primary Care Nurse Name: Karolina Adkins MD Position: [facility] Physician - Primary Care Member Role: Lifetime Consulting Physician Address: Address: [address] [place] [address] [facility] [place] [address]- Name: Rossy Rowe RN Position: [facility] SN RN Member Role: Primary Care Nurse Name: Cindi Hayward Position: [facility] RN Member Role: Primary Care Nurse Name: Bela Mcmahon RN Position: [facility] Hospital Registered Nurse Cardiac Telemetry Member Role: Primary Care Nurse Name: Nicole Hernandez RN Position: [facility] RN Member Role: Primary Care Nurse Name: Zac Castillo RN Position: [facility] ED RN W/OE and Tasks Member Role: Primary Care Nurse Name: Harjinder MONTELONGO, Jeanne Baker Position: [facility] RN Member Role: Primary Care Nurse Care Team Related Persons Name: BEAR TURNER Address: home [address] [place] [address] Name: BEAR TURNER SECONDARY Address: [address] [address] Name: ISATU ECKERT Address: [place] [address] Name: ISAAC VERDE PRIMARY Address: home [address] [place] [address] Name: ADRY DURANT Name: PANCHO JEROME Address: [place] [address]
--- OUTSIDE RECORDS SUMMARY | 2024-04-27 10:09 | XMS_ITS | Continuity of Care Document ---
Author Organization [facility] Address [address] [facility], [address] d Floor, [address] [place] [address]- Care Team Providers Care Curing Supervisor Name Role Phone Sisi Hernandez MD Primary Care Physician [place] [facility] [place]20 - 01/04/21 [facility] [address] [facility], 3rd Floor, [address] [place] [address] Allergies, Adverse Reactions, Alerts Substance Reaction [...] 12/22/20 12:53:00 EDT, Route to Pharmacy Electronically, [facility] Tablet, Partial fill upon patient request if the... Start Date: 12/22/20 Stop Date: 01/21/21 Status: Ordered albuterol CFC free 90 mcg/inh inhalation aerosol 2, puffs, Inhalation, Every 6 hours, PRN, # 2 each, Refills 11, Tot. Refills 11, Maintenance, 12/02/20 8:50:00 EDT, Aerosol, Route to Pharmacy Electronically, [id number], [facility], 155, cm, 06/03/20 13:15:00 [...] 6 Refills, Maintenance, 06/15/20 11:56:00 EST, Solution, [facility], 155, cm, 06/03/20 13:15:00 EST, Height, 68.5, kg, 06/03/20 13:18:00 EST, Dry Weight Start Date: 06/15/20 Status: Ordered dilTIAZem 240 mg/24 hours oral tablet, extended release 1 tablet = 240 mg, By Mouth, Daily, FURTHER REFILLS BY PRE PRESS PROOFER, # 90 tablet, 0 Refills, Maintenance, 11/27/19 8:57:00 EDT, ER Tablet, [facility], 155, cm, 10/07/19 12:25:00 EDT, [...] tablet, 2 Refills, Maintenance, 05/06/20 15:17:00 EDT, [facility] 3, 155, cm, 05/03/20 18:55:00 [...] 15:30:53 EST, Aerosol, Route to Pharmacy Electronically, [id number]... Start Date: 09/12/18 Stop Date: 02/09/19 Status: Ordered ProAir HFA 90 mcg/inh inhalation aerosol with adapter 2, puffs, Inhalation, Every 4 hours, PRN, use with spacer chamber BRAND NAME MEDICALLY NECESSARY, #8.5 Gm, Refills 0, Tot. Refills 0, Maintenance, 12/05/20 15:38:00 EDT, Aerosol, Route to Pharmacy Electronically, [id number]... Start Date: 12/05/20 Status: Ordered ramelteon 8 mg oral tablet 1 tablet = 8 mg, By Mouth, Daily at bedtime, # 30 tablet, 11 Refills, Maintenance, 12/02/20 8:48:00EDT, [facility], Partial fill upon [...] 2 Refills, Maintenance, 08/04/20 12:39:00 EST, Capsule, [facility], Partial fill upon [...] Near syncope(Confirmed) Active Bilateral leg pain(Confirmed) Active *BHN/CCA/CC-[facility]- [phone]/Health halfway, active care coordination(Confirmed) Active POTS (postural orthostatic t achycardia syndrome)(Confirmed) Active Medulloblastoma(Confirmed) Active RUQ pain(Confirmed) Active Viral URI(Confirmed) Active Social History Social History Type Response Smoking Status Never smoker; Tobacc o user in household: No entered on: 04/11/16 Sex
--- OUTSIDE RECORDS SUMMARY | 2024-04-27 10:09 | XMS_ITS | Continuity of Care Document ---
Author Organization [facility] Address [address] [place] [address]- Care Team Providers Care Scale Technician Name Role Phone Sisi Hernandez MD Primary Care Physician [place] [facility] [place] 10/06/20 [facility] [address] [place], [place] [address] Attending Physician: Sisi Hernandez MD Allergies, Adverse Reactions, Alerts Substance Reaction Severity Status cefoxitin Cough Tightness in throat Active vancomycin Throat itching Itching of skin Active Sertraline Hydrochloride burning Act alessandra Fruit rash Allergy to fruit Active Immunizations [...] 8:59:00 EDT, Aerosol, Route to Pharmacy Electronically, [id number], [facility], 155, cm, 10/07/19 12:25:00 [...] 6 Refills, Maintenance, 06/15/20 11:56:00 EST, Solution, [facility], 155, cm, 06/03/20 13:15:00 EST, Height, 68.5, kg, 06/03/20 13:18:00 EST, Dry Weight Start Date: 06/15/20 Status: Ordered dilTIAZem 240 mg/24 hours oral tablet, extended release 1 tablet = 240 mg, By Mouth, Daily, FURTHER REFILLS BY MMI TEACHER, # 90 tablet, 0 Refills, Maintenance, 11/27/19 8:57:00 EDT, ER Tablet, [facility], 155, cm, 10/07/19 12:25:00 EDT, [...] tablet, 2 Refills, Maintenance, 05/06/20 15:17:00 EDT, [facility] 3, 155, cm, 05/03/20 18:55:00 EDT, [...] 15:30:53 EST, Aerosol, Route to Pharmacy Electronically, [id number]... Start Date: 09/12/18 Stop Date: 02/09/19 Status: [...] 2 Refills, Maintenance, 08/04/20 12:39:00 EST, Capsule, [facility], Partial fill upon patient request [...] Active Bilateral leg pain(Confirmed) Active *BHN/CCA/CC-[facility]- [phone]/Health nursing home, active care coordination(Confirmed) Active POTS (postural orthostatic t achycardia syndrome)(Confirmed) Active Medulloblastoma(Confirmed) Active RUQ pain(Confirmed) Active Viral URI(Confirmed) Active Social History Social History Type Response Smoking Status Never smoker; Tobacc o user in household: No entered on: 04/11/16 Sex
--- OUTSIDE RECORDS SUMMARY | 2024-04-27 10:09 | XMS_ITS | Continuity of Care Document ---
Author Organization [facility] Address [address] [place] [address]- Care Team Providers Care Logistics Support Name Role Phone Mary KEATING, Sisi Almanza Primary Care Physician [phone] Encounter [facility] [place] Date(s): 08/18/22 - 09/17/22 [facility] [address] [place] [address]- Allergies, Adverse Reactions, Alerts Substance Reaction Severity [...] 13:12:00 EDT, Aerosol, Route to Pharmacy Electronically, [id number], [facility], ONLY ALBUTEROL HFA, CANCEL... Start Date: 02/15/22 Stop Date: 02/10/23 Status: Ordered Colace sodium 100 mg oral capsule 100 mg, 1, capsule, By Mouth, 2 times a day, PRN, # 30 capsule, Refills 0, Tot. Refills 0, Maintenance, for constipation, 07/31/22 11:03:00 EST, Route to Pharmacy Electronically, [facility], Partial fill upon patient request if [...] 6 Refills, Maintenance, 09/04/22 8:50:00 EST, Solution, [facility], 155, cm, 08/14/22 13:52:00 [...] 0 Refills, Maintenance, 02/15/22 13:10:00 EDT, Aerosol, [facility], new dosage, 155, cm, [...] 07/31/22 11:03:00 EST, Route to Pharmacy Electronically, [facility], Partial fill upon patient request if the prescription is for a schedule... Start Date: 07/31/22 Status: Ordered LORazepam 0.5 mg oral tablet See Instructions, TAKE 1 TABLET BY MOUTH TWO TIMES A DAY NEEDED FOR ANXIETY, # 28 tablet, 2 Refills, Maintenance, 06/06/22 10:45:00 EST, [facility], 155, cm, 04/06/22 [...] Refills, Maintenance, 08/01/22 6:06:00 EST, REC Powder, [facility] 3, Partial fill upon patient [...] 0 Refills, Maintenance, 08/01/22 6:06:00 EST, Tablet, [facility], Partial fill upon patient request if the prescription is for a schedule II opioid drug., 155, cm,... Start Date: 08/01/22 Status: Ordered simethicone 80 mg oral tablet, chewable 80 mg, 1, tablet, Chew, 4 times a day, # 12 tablet, Refills 0, Tot. Refills 0, Maintenance, 07/31/22 11:03:00 EST, Route to Pharmacy Electronically, [facility], Partial fill upon patient request [...] 07/31/22 11:03:00 EST, Route to Pharmacy Electronically, [facility], Partial fill upon patient [...] 3 Refills, Maintenance, 06/05/22 14:27:00 EST, Capsule, [facility], Partial fill upon patient [...] Bilateral leg pain Confirmed Active *BHN/CCA/CC-[facility]- [phone]/Health shelter, active care coordination Confirmed Active POTS (postural orthostatic tachycardia syndrome) Confirmed Active Medulloblastoma Confirmed Active RUQ pain Confirmed Active Social History Social History Type Response Smoking Status Never smoker; Tobacc o user in household: No entered on: 04/11/16 Sex Female Patient Care team information Care Team Personnel Name: Vidhya Grace RN Position: [facility] RN Member Role: Primary Care Nurse Name: Sisi Hernandez MD Position: [facility] Primary Care Physician Member Role: PCP Address: Address: [address] [place] [address] - Name: Lizzette To RN Position: [facility] RN Member Role: Primary Care Nurse Name: Karolina Adkins MD Position: [facility] Physician -Physician Practices Member Role: Lifetime Consulting Physician Address: Address: [address] [place] [address] [facility] [place], [place] - Name: Isadora Godfrey RN Position: [facility] RN Member Role: Primary Care Nurse Name: Rossy Rowe RN Position: [facility] SN RN Member Role: Primary Care Nurse Name: Cindi Hayward Position: [facility] RN Member Role: Primary Care Nurse Name: Bela Mcmahon RN Position: [facility] Hospital Database Administration Project Manager Member Role: Primary Care Nurse Name: Nicole Hernandez RN Position: [facility] RN Member Role: Primary Care Nurse Name: Zca Castillo RN Position: [facility] ED RN W/OE and Tasks Member Role: Primary Care Nurse Name: Jeanne Grande RN Position: [facility] RN Member Role: Primary Care Nurse Care Team Related Persons Name: BEAR TURNER Address: home [address] [place], [place] Name: BEAR TURNER SECONDARY Address: home [address] [place] [address] Name: ISATU ECKERT Address: [place] [address] Name: ISAAC VERDE PRIMARY Address: home [address] [place], [place] Name: ADRY DURANT Name: APNCHO JEROME Address: [place] [address]
--- OUTSIDE RECORDS SUMMARY | 2024-04-27 10:09 | XMS_ITS | Continuity of Care Document ---
Author Organization [facility] Address [address] [place] [address]- Care Team Providers Care Button Station Worker Name Role Phone Sisi Hernandez MD Primary Care Physician [place] [facility] [place] 12/26/21 - 01/25/22 [facility] [address] [place], [place] [address] Allergies, Adverse Reactions, Alerts Substance [...] 11/16/21 23:51:00 EDT, Route to Pharmacy Electronically, [facility], Partial fill upon patient request if the presc... Start Date: 11/16/21 Status: Ordered albuterol CFC free 90 mcg/inh inhalation aerosol 2, puffs, Inhalation, Every 6 hours, PRN, # 2 each, Refills 11, Tot. Refills 11, Maintenance, 10/05/21 9:52:00 EST, Aerosol, Route to Pharmacy Electronically, [id number], [facility], ONLY ALBUTEROL HFA, CANCEL V... [...] 6 Refills, Maintenance, 10/03/21 12:18:00 EST, Solution, [facility] 3, 155, cm, 09/27/21 15:08:00 EST, Height, 68.5, kg, 06/03/20 13:18:00 EST, Dry Weight Start Date: 10/03/21 Status: Ordered cyanocobalamin 1000 mcg/ml injectable solution 1 mL = 1,000 mcg, Intramuscular, Every 30 days, # 3 mL, 6 Refills, Maintenance, 06/15/20 11:56:00 EST, Solution, [facility] 3, 155, cm, 06/03/20 13:15:00 EST, Height, 68.5, kg, 06/03/20 13:18:00 EST, Dry Weight Start Date: 06/15/20 Status: Ordered dilTIAZem 240 mg/24 hours oral tablet, extended release 1 tablet = 240 mg, By Mouth, Daily, FURTHER REFILLS BY BRIDGE/STRUCTURE INSPECTION TEAM LEADER, # 90 tablet, 0 Refills, Maintenance, 11/27/19 8:57:00 EDT, ER Tablet, [facility] 3, 155, cm, 10/07/19 12:25:00 EDT, Height, 63, kg, 07/01/19 19:58:00 EST, Dry Weight Start Date: 11/27/19 Status: Ordered Flovent HFA 110 mcg/inh inhalation aerosol 2 puffs, Inhalation, 2 times a day, # 12 Gm, 0 Refills, Maintenance, 10/05/21 13:23:00 EST, Aerosol, [facility], Partial fill upon [...] 11/16/21 23:51:00 EDT, Route to Pharmacy Electronically, [facility], Partial fill upon patient request if the prescription is... Start Date: 11/16/21 Status: Ordered LORazepam 0.5 mg oral tablet See Instructions, TAKE 1 TABLET BY MOUTH TWO TIMES A DAY NEEDED FOR ANXIETY, # 28 tablet, 2 Refills, Maintenance, 05/06/20 15:17:00 EDT, [facility], 155, cm, 05/03/20 [...] Refills, Maintenance, 11/16/21 23:51:00 EDT, DIS Tablet, [facility], Partial fill upon patient request if the prescription is for a schedule II o... Start Date: 11/16/21 Status: Ordered Peridex 0.12% liquid 15 mL = 0.018 Gm, By Mouth, 2 times a day, # 420 mL, 0 Refills, Maintenance, 01/18/22 8:47:00 EDT, Liquid, [facility], Partial fill upon patient request if [...] 3 Refills, Maintenance, 10/25/21 11:13:00 EDT, Capsule, [facility], Partial fill upon patient request if [...] Active Bilateral leg pain(Confirmed) Active *BHN/CCA/CC-[facility]- [phone]/Health retirement, active care coordination(Confirmed) Active POTS (postural orthostatic t achycardia syndrome)(Confirmed) Active Medulloblastoma(Confirmed) Active RUQ pain(Confirmed) Active Social History Social History Type Response Smoking Status Never smoker; Tobacc o user in household: No entered on: 04/11/16 Sex Female
--- OUTSIDE RECORDS SUMMARY | 2024-04-27 10:09 | XMS_ITS | Continuity of Care Document ---
Author Organization [facility] Address [address] [place] [address]- Care Team Providers Care Seed Pelleter Name Role Phone Sisi Hernandez MD Primary Care Physician Encounter [facility] [place] Date(s): 10/24/22 - 10/31/[facility] [address] [place] [address]- Encounter Diagnosis Narcolepsy and cataplexy(Discharge Diagnosis) - 10/24/22 Memory change(Discharge Diagnosis) - 10/24/22 POTS (postural orthostatic tachycardia syndrome)(Discharge Diagnosis) - 10/24/22 Hemoptysis(Discharge Diagnosis) - 10/24/22 Attending Physician: Sisi Hernandez MD Allergies, Adverse [...] 13:12:00 EDT, Aerosol, Route to Pharmacy Electronically, [id number], [facility], ONLY ALBUTEROL HFA, [...] Refills, Maintenance, 10/17/22 14:31:00 EDT, ER Capsule, [facility], Partial fill [...] 07/31/22 11:03:00 EST, Route to Pharmacy Electronically, [facility], Partial fill upon patient request if the prescription is for a schedule... Start Date: 07/31/22 Status: Ordered LORazepam 0.5 mg oral tablet See Instructions, TAKE 1 TABLET BY MOUTH TWO TIMES A DAY NEEDED FOR ANXIETY, # 28 tablet, 2 Refills, Maintenance, 06/06/22 10:45:00 EST, [facility] 3, 155, cm, 04/06/22 14:56:00 [...] Refills, Maintenance, 08/01/22 6:06:00 EST, REC Powder, [facility] 3, Partial fill upon patient request if [...] 0 Refills, Maintenance, 08/01/22 6:06:00 EST, Tablet, [facility] 3, Partial fill upon patient request if the prescription is for a schedule II opioid drug., 155, cm,... Start Date: 08/01/22 Status: Ordered Symbicort 160mcg/4.5mcg Inhaler 2, puffs, Inhalation, 2 times a day, # 3 each, Refills 5, Tot. Refills 5, Maintenance, 09/27/22 12:00:00 EST, Aerosol, Route to Pharmacy Electronically, [id number], [facility], replaces flovent inhaler, 155, cm,... Start [...] Maintenance, 06/05/22 14:27:00 EST, [facility], [facility] fill upon patient request if [...] Bilateral leg pain Confirmed Active *BHN/CCA/CC-[facility]- [phone]/Health [facility], active care coordination Confirmed Active POTS (postural orthostatic tachycardia syndrome) Confirmed Active Medulloblastoma Confirmed Active RUQ pain Confirmed Active Diagnosis Diagnosis Type Effective Dates Health Status Clinical Service Informant Narcolepsy and cataplexy Discharge Diagnosis 10/24/22 Memory change Discharge Diagnosis 10/24/22 POTS (postural orthostatic tachycardia syndrome) Discharge Diagnosis 10/24/22 Hemoptysis Discharge Diagnosis 10/24/22 Vital Signs Most recent to oldest [Reference Range]: 1 Height 155 cm (10/24/22 1:12 PM) Weight 68.4 kg (10/24/22 1:12 PM) Oxygen Saturation [94-100 %] 98 % (10/24/22 1:12 PM) Pulse Rate [55-90 bpm] 109 bpm *H* (10/24/22 1:12 PM) Body Mass Index [18.5-24.99 kg/m2] 28.47 kg/m2 *H* (10/24/22 1:12 PM) Blood Pressure [90-138/55-84 mm Hg] 96/6 0mm Hg (10/24/22 1:12 PM) Temperature [96.8-100.4 DegF] 98.5 DegF (10/24/22 1:12 PM) Blood pressure sites Arm, left (10/24/22 1:12 PM) Temperature Route Temporal (10/24/22 1:12 PM) Social History Social History Type Response Smoking Status Never smoker; Tobacc o user in household: No entered on: 04/11/16 Sex Note * Ronna Nettles: PERFORM, SIGN, VERIFY Event Display: Patient Education/Instruction Authored Date: [id number] [facility] Clinical Summary Name ANSELMO TURNER Age 31 Years 1990 PCP Sisi Hernandez MD [id number] Visit Date 10/24/2022 12:58:00 Additional Instructions: Scheduled Appointments?? Future Appointments ?*[facility] ?[address] ?[place],??[place],??[address] ?Phone:??--?Fax:??-- ?Appt. Date:??11/23/2022?1:00 PM ?Scheduled Provider:??Nita Castillo MD ?*[facility] ?[address],??[place],??[address] ?Phone:??--?Fax:??-- ?Appt. Date:??12/05/2022?11:40 AM ?Scheduled Provider:??Sisi Hernandez MD Follow-Up Instructions ?? Diagnosis Medications: Please continue [...] for 30 Days. Refills: 11. Next Dose: Budesonide-Formoterol (Symbicort 160mcg/4.5mcg Inhaler) 2 puff(s) Inhalation twice a day. Refills: 5. Next Dose: Cholecalciferol (Vitamin D3 1000 intl units oral capsule) 1 capsule Oral Daily. Refills: 3. Next Dose: Cyanocobalamin (cyanocobalamin 1000 mcg/ml injectable solution) 1 Milliliter Intramuscular every 30days. Refills: 6. Next Dose: Dextroamphetamine (dextroamphetamine 10 mg oral capsule, extended release) start 1 capsule By MouthDaily in AM. Take second capsule if needed. Refills: 0. Next Dose: Docusate (Colace sodium 100 mg [...] every 8 hours. Refills: 0. Next Dose: ivabradine (Corlanor 5 mg oral tablet) TAKE 1 TABLET BY MOUTH TWO TIMES A DAY. Next Dose: ivabradine (Corlanor 5 mg oral tablet) 1 tab(s). TAKE 1 TABLET BY MOUTH TWO TIMES A DAY. Next Dose: Lorazepam (LORazepam 0.5 mg oral tablet) TAKE 1 TABLET BY MOUTH TWO TIMES A DAY NEEDED FOR ANXIETY. Refills: 2. Next Dose: Metoprolol (Metoprolol Tartrate 50 mg oral tablet) Next Dose: Nitroglycerin (nitroglycerin 0.4 mg sublingual tablet) 1 tab(s) Sublingual every 5 minutes as needed for chest pain. Next Dose: Polyethylene Glycol 3350 (MiraLax oral powder for reconstitution) 17 gram Oral Daily. dissolve in water before taking. Refills: 0. Next Dose: Senna (senna - oral tablet) 2 tab(s) Oral Daily at Bedtime as needed for constipation. Refills: 0. Next Dose: Verapamil Next Dose: Verapamil (verapamil 240 mg/12 hours oral tablet, extended release) TAKE 1 TABLET BY MOUTH DAILY.. Next Dose: Allergy Info:?? Sertraline Hydrochloride; Fruit; vancomycin; cefoxitin Medications Given This Visit Future Orders ?No future orders Vital Signs Height 155 cm Weight 68.4 kg BMI 28.47 kg/m2 Blood Pressure 96 mm Hg/60 mm Hg Temperature 98.5 DegF Pulse Rate 109 bpm Respiratory Rate 02 Sat Mode of Delivery 98 %/ You can now view a summary of your hospital visit from the comfort of your home through a free online portal called miCab. miCab is a website that allows you to securely view your medical information including discharge summary, medications and follow-up visits. ??You can alsosend a secure electronic message to your doctor???s office to request appointments, renew medications or just ask a question. You can enroll at [email or web address] or register during your next office visit. [...] primary care provider, you may find a [facility] provider by calling [facility] perfect Link at [phone]. For information about the plan of care [...] Team Personnel Name: Vidhya Grace RN Position: [facility] RN Member Role: Primary Care Nurse Name: Sisi Hernandez MD Position: [facility] Primary Care Physician Member Role: PCP Address: Address: [address] [place] [address] Name: Lizzette To RN Position: [facility] RN Member Role: Primary Care Nurse Name: Karolina Adkins MD Position: [facility] Physician -Physician Practices Member Role: Lifetime Consulting Physician Address: Address: [address] [place] [address] [facility] [address] Name: Isadora Godfrey RN Position: [facility] RN Member Role: Primary Care Nurse Name: Rossy Rowe RN Position: [facility] SN RN Member Role: Primary Care Nurse Name: Cindi Hayward Position: [facility] RN Member Role: Primary Care Nurse Name: Bela Mcmahon RN Position: [facility] Hospital [facility] Facer Member Role: Primary Care Nurse Name: Nicole Hernandez RN Position: [facility] RN Member Role: Primary Care Nurse Name: Zac Castillo RN Position: [facility] ED RN W/OE and Tasks Member Role: Primary Care Nurse Name: Jeanne Grande RN Position: [facility] RN Member Role: Primary Care Nurse Care Team Related Persons Name: BEAR TURNER Address: home [address] [place] [address] Name: BEAR TURNER SECONDARY Address: home [address] [place] [address] Name: ISATU ECKERT Address: [place] [address] Name: ISAAC VERDE PRIMARY Address: [address] Name: ADRY DURANT Name: PANCHO JEROME Address: [place] [address]
--- OUTSIDE RECORDS SUMMARY | 2024-04-27 10:09 | XMS_ITS | Continuity of Care Document ---
Author Organization [facility] Address [address] [place] [address]- Care Team Providers Care Log Pond Worker Name Role Phone Sisi Hernandez MD Primary Care Physician [place] [facility] [place](s): 10/04/21 - 11/03/[address] [address] Allergies, Adverse Reactions, Alerts Substance [...] 0 Refills, Maintenance, 10/25/21 15:46:00 EDT, Tablet, [facility], Partial fill upon [...] Refills, Maintenance, 10/25/21 15:46:00 EDT, ER Capsule, [facility], Partial fill upon patient r... Start Date: 10/25/21 Status: Ordered albuterol CFC free 90 mcg/inh inhalation aerosol 2, puffs, Inhalation, Every 6 hours, PRN, # 2 each, Refills 11, Tot. Refills 11, Maintenance, 10/05/21 9:52:00 EST, Aerosol, Route to Pharmacy Electronically, [id number], [facility], ONLY ALBUTEROL HFA, CANCEL [...] 6 Refills, Maintenance, 10/03/21 12:18:00 EST, Solution, [facility] 3, 155, cm, 09/27/21 15:08:00 EST, Height, 68.5, kg, 06/03/20 13:18:00 EST, Dry Weight Start Date: 10/03/21 Status: Ordered cyanocobalamin 1000 mcg/ml injectable solution 1 mL = 1,000 mcg, Intramuscular, Every 30 days, # 3 mL, 6 Refills, Maintenance, 06/15/20 11:56:00 EST, Solution, [facility] 3, 155, cm, 06/03/20 13:15:00 EST, Height, 68.5, kg, 06/03/20 13:18:00 EST, Dry Weight Start Date: 06/15/20 Status: Ordered dilTIAZem 240 mg/24 hours oral tablet, extended release 1 tablet = 240 mg, By Mouth, Daily, FURTHER REFILLS BY CHEMICAL LIBRARIAN, # 90 tablet, 0 Refills, Maintenance, 11/27/19 8:57:00 EDT, ER Tablet, [facility], 155, cm, 10/07/19 12:25:00 EDT, Height, 63, kg, 07/01/19 19:58:00 EST, Dry Weight Start Date: 11/27/19 Status: Ordered Flovent HFA 110 mcg/inh inhalation aerosol 2 puffs, Inhalation, 2 times a day, # 12 Gm, 0 Refills, Maintenance, 10/05/21 13:23:00 EST, Aerosol, [facility], Partial fill upon [...] tablet, 2 Refills, Maintenance, 05/06/20 15:17:00 EDT, [facility], 155, cm, 05/03/20 [...] EDT, Tablet Start Date: 12/10/17 Status: Ordered syringe and needles syringe and [...] 3 Refills, Maintenance, 10/25/21 11:13:00 EDT, Capsule, [facility], Partial fill upon [...] Active Bilateral leg pain(Confirmed) Active *BHN/CCA/CC-[facility]- [phone]/Health snf, active care coordination(Confirmed) Active POTS (postural orthostatic t achycardia syndrome)(Confirmed) Active Medulloblastoma(Confirmed) Active RUQ pain(Confirmed) Active Social History Social History Type Response Smoking Status Never smoker; Tobacc o user in household: No entered on: 04/11/16 Sex Female
--- OUTSIDE RECORDS SUMMARY | 2024-04-27 10:09 | XMS_ITS | Continuity of Care Document ---
Author Organization [facility] Address [address] [place] [address]- Care Team Providers Care Filer Helper Name Role Phone Sisi Hernandez MD Primary Care Physician Encounter [facility] [place](s): 10/09/23 - 10/16/23 [facility] [address] [place] [address]- Attending Physician: Not on Staff, Attending MD [...] P... Start Date: 09/11/23 Status: Ordered Adderall XR 20 mg oral capsule, extended release 1 capsule = 20 mg, By Mouth, Daily in AM, # 30 capsule, 0 Refills, Maintenance, 12/21/22 14:40:00 EDT, ER Capsule, [facility], Partial fill upon patient request if the prescription is for a schedule II opioid drug., 155, cm, 12/05/22 11:... Start Date: 12/21/22 Status: Ordered albuterol CFC free 90 mcg/inh inhalation aerosol 2, puffs, Inhalation, Every 6 hours, PRN, # 2 each, Refills 11, Tot. Refills 11, Maintenance, 02/15/22 13:12:00 EDT, Aerosol, Route to Pharmacy Electronically, [id number], [facility], ONLY ALBUTEROL HFA, CANCEL... Start Date: 02/15/22 Stop Date: 02/10/23 Status: Ordered Colace sodium 100 mg oral capsule 100 mg, 1, capsule, By Mouth, 2 times a day, PRN, # 180 capsule, Refills 3, Tot. Refills 3, Maintenance, for constipation, 08/09/23 14:49:00 EST, Route to Pharmacy Electronically, [facility], Partial fill upon patient request if [...] 6 Refills, Maintenance, 08/07/23 13:45:00 EST, Solution, [facility], 155, cm, 06/07/23 20:58:00 [...] 0 Refills, Maintenance, 02/15/22 13:10:00 EDT, Aerosol, [facility], new dosage, 155, [...] 07/31/22 11:03:00 EST, Route to Pharmacy Electronically, [facility], Partial fill upon patient request if the prescription is for a schedule... Start Date: 07/31/22 Status: Ordered LORazepam 0.5 mg oral tablet See Instructions, TAKE 1 TABLET BY MOUTH TWO TIMES A DAY NEEDED FOR ANXIETY, # 28 tablet, 2 Refills, Maintenance, 12/05/22 12:25:00 EDT, [facility] 3, 155, cm, 12/05/22 11:40:00 EDT, Height, [...] 0 Refills, Maintenance, 08/01/22 6:06:00 EST, Tablet, [facility], Partial fill upon patient request if the prescription is for a schedule II opioid drug., 155, cm,... Start Date: 08/01/22 Status: Ordered Symbicort 160mcg/4.5mcg Inhaler 2, puffs, Inhalation, 2 times a day, # 3 each, Refills 5, Tot. Refills 5, Maintenance, 09/27/22 12:00:00 EST, Aerosol, Route to Pharmacy Electronically, [id number], [facility], replaces flovent inhaler, 155, cm,... [...] 07/31/22 11:03:00 EST, Route to Pharmacy Electronically, [facility], Partial fill upon [...] Refills, Maintenance, 08/14/23 13:38:00 EST, Chew Tablet, [facility] 3, Partial fill upon patient request if the prescription is for a schedule II opioid drug., 155, cm, 08/14/23 13:0... Start Date: 08/14/23 Status: Ordered Vitamin D3 50,000 intl units oral capsule 1 capsule = 1,250 mcg, By Mouth, Every week, # 13 capsule, 1 Refills, Maintenance, 05/17/23 17:07:00 EDT, Capsule, [facility] 3, Partial fill upon patient request [...] Bilateral leg pain Confirmed Active *BHN/CCA/CC-[facility]- [phone]/Health longterm, active care coordination Confirmed Active POTS (postural orthostatic tachycardia syndrome) Confirmed Active Medulloblastoma Confirmed Active RUQ pain Confirmed Active Tachy-sharmin syndrome Confirmed Active Vital Signs Most recent to oldest [Reference Range]: 1 Height 155 cm (10/09/23 2:19 PM) Weight 68 kg (10/09/23 2:19 PM) Oxygen Saturation [94-100 %] 100 % (10/09/23 2:19 PM) Pulse Rate [55-90 bpm] 112 bpm *H* (10/09/23 2:19 PM) Body Mass Index [18.5-24.99 kg/m2] 28.3 kg/m2 *H* (10/09/23 2:19 PM) Blood Pressure [90-138/55-84 mm Hg] 130/ 73mm Hg (10/09/23 2:19 PM) Respiratory Rate [16-30 br/min] 18 br/mi n (10/09/23 2:19 PM) Temperature [96.8-100.4 DegF] 98.5 DegF (10/09/23 2:19 PM) Mode of Delivery (Oxygen) Room air (10/09/23 2:19 PM) Blood pressure sites Arm, right (10/09/23 2:19 PM) Temperature Route Oral (10/09/23 2:19 PM) Dry Weight 68 kg (10/09/23 2:19 PM) Weight Obtained Via Patient/family state d (10/09/23 2:19 PM) Dry Weight Obtained Via Patient/family s tated (10/09/23 2:19 PM) Social History Social History Type Response Smoking Status Never smoker; Tobacc o user in household: No entered on: 04/11/16 Sex Patient Care team information Care Team Personnel Name: Vidhya Grace RN Position: [facility] RN Member Role: Primary Care Nurse Name: Sisi Hernandez MD Position: [facility] Physician - Primary Care Member Role: PCP Address: Address: [address] [place] [address] - Name: Lizzette To RN Position: [facility] SN RN Member Role: Primary Care Nurse Name: Karolina Adkins MD Position: [facility] Physician - Primary Care Member Role: Lifetime Consulting Physician Address: Address: [address] [place] [address] [facility] [place], [place] - Name: Isadora Godfrey RN Position: [facility] RN Member Role: Primary Care Nurse Name: Rsosy Rowe RN Position: [facility] SN RN Member Role: Primary Care Nurse Name: Cindi Hayward RN Position: [facility] RN Member Role: Primary Care Nurse Name: Bela Mcmahon RN Position: [facility] Javascript Developer Member Role: Primary Care Nurse Name: Nicole [...] Persons Name: BEAR TURNER Address: home [address] [place] [address] Name: BEAR TURNER SECONDARY Address: home [address] [place] [address] Name: ISATU ECKERT Address: home [place], [place] Name: ISAAC VERDE PRIMARY Address: home [address] [place], [place] Name: ADRY DURANT Name: PANCHO JEROME Address: [place] [address]
--- OUTSIDE RECORDS SUMMARY | 2024-04-27 10:09 | XMS_ITS | Continuity of Care Document ---
Author Organization [facility] Address [address] [place] [address]- Care Team Providers Care Brick Yard Hand Name Role Phone Sisi Hernandez MD Primary Care Physician [place] [facility] [place]21 [facility] [address] [place], [place] [address] Attending Physician: Admjuan josé, [email or web address] Admitting Physician: Admtr, Ramesh8 Referring Physician: Admtr Ar8 Allergies, Adverse Reactions, Alerts Substance Reaction [...] 11/16/21 23:51:00 EDT, Route to Pharmacy Electronically, [facility], Partial fill upon patient request if the presc... Start Date: 11/16/21 Status: Ordered Adderall 5 mg oral tablet 1 tablet = 5 mg, By Mouth, 2 times a day, to take with long acting, # 60 tablet, 0 Refills, Maintenance, 10/25/21 15:46:00 EDT, Tablet, [facility], Partial fill upon patient [...] Refills, Maintenance, 10/25/21 15:46:00 EDT, ER Capsule, [facility], Partial fill upon patient r... Start Date: 10/25/21 Status: Ordered albuterol CFC free 90 mcg/inh inhalation aerosol 2, puffs, Inhalation, Every 6 hours, PRN, # 2 each, Refills 11, Tot. Refills 11, Maintenance, 10/05/21 9:52:00 EST, Aerosol, Route to Pharmacy Electronically, [id number], [facility], ONLY ALBUTEROL HFA, CANCEL V... Start [...] 6 Refills, Maintenance, 10/03/21 12:18:00 EST, Solution, [facility] 3, 155, cm, 09/27/21 15:08:00 EST, Height, 68.5, kg, 11/06/20 13:18:00 EST, Dry Weight Start Date: 10/03/21 Status: Ordered cyanocobalamin 1000 mcg/ml injectable solution 1 mL = 1,000 mcg, Intramuscular, Every 30 days, # 3 mL, 6 Refills, Maintenance, 06/15/20 11:56:00 EST, Solution, [facility], 155, cm, 06/03/20 13:15:00 EST, Height, 68.5, kg, 06/03/20 13:18:00 EST, Dry Weight Start Date: 06/15/20 Status: Ordered dilTIAZem 240 mg/24 hours oral tablet, extended release 1 tablet = 240 mg, By Mouth, Daily, FURTHER REFILLS BY DOCUMENT PROCESSOR, # 90 tablet, 0 Refills, Maintenance, 11/27/19 8:57:00 EDT, ER Tablet, [facility] 3, 155, cm, 10/07/19 12:25:00 EDT, Height, 63, kg, 07/01/19 19:58:00 EST, Dry Weight Start Date: 11/27/19 Status: Ordered Flovent HFA 110 mcg/inh inhalation aerosol 2 puffs, Inhalation, 2 times a day, # 12 Gm, 0 Refills, Maintenance, 10/05/21 13:23:00 EST, Aerosol, [facility] 3, Partial fill upon patient request [...] 11/16/21 23:51:00 EDT, Route to Pharmacy Electronically, [facility], Partial fill upon patient request if the prescription is... Start Date: 11/16/21 Status: Ordered LORazepam 0.5 mg oral tablet See Instructions, TAKE 1 TABLET BY MOUTH TWO TIMES A DAY NEEDED FOR ANXIETY, # 28 tablet, 2 Refills, Maintenance, 05/06/20 15:17:00 EDT, [facility] 3, 155, cm, 05/03/20 18:55:00 [...] Refills, Maintenance, 11/16/21 23:51:00 EDT, DIS Tablet, [facility], Partial fill upon patient [...] 3 Refills, Maintenance, 10/25/21 11:13:00 EDT, Capsule, [facility], Partial fill upon patient [...] Active Bilateral leg pain(Confirmed) Active *BHN/CCA/CC-[facility]- [phone]/Health mcfp, active care coordination(Confirmed) Active POTS (postural orthostatic t achycardia syndrome)(Confirmed) Active Medulloblastoma(Confirmed) Active RUQ pain(Confirmed) Active Social History Social History Type Response Smoking Status Never smoker; Tobacc o user in household: No entered on: 04/11/16 Sex Female
--- OUTSIDE RECORDS SUMMARY | 2024-04-27 10:09 | XMS_ITS | Continuity of Care Document ---
Author Organization [facility] Address [address] [place] [address]- Care Team Providers Care Project Management Analyst Name Role Phone Mary KEATING, Sisi Almanza Primary Care Physician Encounter [facility] [place] Date(s): 12/25/23 - 01/24/24 [facility] [address] [place], [place] [address] Allergies, Adverse Reactions, Alerts Substance Reaction Severity [...] 13:12:00 EDT, Aerosol, Route to Pharmacy Electronically, [id number], [facility], ONLY ALBUTEROL HFA, CANCEL... Start Date: 02/15/22 Stop Date: 02/10/23 Status: Ordered Colace sodium 100 mg oral capsule 100 mg, 1, capsule, By Mouth, 2 times a day, PRN, # 180 capsule, Refills 3, Tot. Refills 3, Maintenance, for constipation, 08/09/23 14:49:00 EST, Route to Pharmacy Electronically, [facility], Partial fill upon patient request [...] 2 Refills, Maintenance, 11/22/23 15:23:00 EDT, Solution, [facility], dose change, 155, cm, [...] Route to Pharmacy Electronically, [facility], Partial fill upon patient request if the prescription is for a schedule... Start Date: 07/31/22 Status: Ordered ketoconazole 1% topical shampoo See Instructions, Apply 5 to 10 mL to wet scalp, lather, leave on 3 to 5 minutes, and rinse; apply twice weekly for 2 to 4 weeks., # 200 mL, 5 Refills, Maintenance, 11/22/23 15:46:00 EDT, [facility], Partial fill upon patient request if... Start Date: 11/22/23 Status: Ordered ketoconazole 2% topical shampoo 1 application, Topically, Once, Apply 5 to 10 mL to wet scalp, lather, leave on 3 to 5 minutes, andrinse; apply weekly for 2 to 4 weeks., # 120 mL, 4 Refills, Soft Stop, 11/25/23 12:40:00 EDT, Shampoo, [facility], Partial fill upon pat... [...] 0 Refills, Maintenance, 08/01/22 6:06:00 EST, Tablet, [facility], Partial fill upon patient request if the prescription is for a schedule II opioid drug., 155, cm,... Start Date: 08/01/22 Status: Ordered Symbicort 160mcg/4.5mcg Inhaler 2, puffs, Inhalation, 2 times a day, # 3 each, Refills 5, Tot. Refills 5, Maintenance, 09/27/22 12:00:00 EST, Aerosol, Route to Pharmacy Electronically, [id number], [facility], replaces flovent inhaler, 155, cm,... [...] 07/31/22 11:03:00 EST, Route to Pharmacy Electronically, [facility], Partial fill upon patient request if [...] Refills, Maintenance, 08/14/23 13:38:00 EST, Chew Tablet, [facility], Partial fill upon patient request if the prescription is for a schedule II opioid drug., 155, cm, 08/14/23 13:0... Start Date: 08/14/23 Status: Ordered Vitamin D3 50,000 intl units oral capsule 1 capsule = 1,250 mcg, By Mouth, Every week, # 13 capsule, 1 Refills, Maintenance, 05/17/23 17:07:00 EDT, Capsule, [facility], Partial fill upon [...] 0 Refills, Maintenance, 11/01/23 14:07:00 EDT, Capsule, [facility], Partial fill u... Start [...] Confirmed 01/23/16 Active Memory change Confirmed Active *N/CCA/CC-[facility]- [phone]/Health detention, active care coordination Confirmed Active POTS (postural orthostatic tachycardia syndrome) Confirmed Active 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 Social History Social History Type Response Smoking Status Never smoker; Tobacc o user in household: No entered on: 04/11/16 Sex Patient Care team information Care Team Personnel Name: Vidhya Grace RN Position: [facility] RN Member Role: Primary Care Nurse Name: Sisi Hernandez MD Position: [facility] Physician - Primary Care Member Role: PCP Address: Address: [address] [place] [address]- Name: Lizzette To RN Position: [facility] RN Member Role: Primary Care Nurse Name: Karolina Adkins MD Position: [facility] Physician - Primary Care Member Role: Lifetime Consulting Physician Address: Address: [address] [place] [address] [facility] [place] [address]- Name: Isadora Godfrey RN Position: [facility] RN Member Role: Primary Care Nurse Name: Rossy Rowe RN Position: [facility] SN RN Member Role: Primary Care Nurse Name: Cindi Hayward RN Position: [facility] RN Member Role: Primary Care Nurse Name: Bela Mcmahon RN Position: [facility] Hospital Career Technical Counselor Member Role: Primary Care Nurse Name: Nicole Hernandez RN Position: [facility] RN Member Role: Primary Care Nurse Name: Zac Castillo RN Position: [facility] ED RN W/OE and Tasks Member Role: Primary Care Nurse Name: Jeanne Grande RN Position: [facility] RN Member Role: Primary Care Nurse Care Team Related Persons Name: KATHRYN TURNERY Address: home [address] [place] [address] Name: BEAR TURNER SECONDARY Address: home [address] [place] [address] Name: ISATU ECKERT Address: [place] [address] Name: ISAAC VERDE PRIMARY Address: home [address] [place] [address] Name: ADRY DURANT Name: PANCHO JEROME Address: [place] [address]
--- OUTSIDE RECORDS SUMMARY | 2024-04-27 10:09 | XMS_ITS | Continuity of Care Document ---
Author Organization [facility] Address [address] [place] [address]- Care Team Providers Care Messenger Copy Name Role Phone Sisi Hernandez MD Primary Care Physician [phone] Encounter [facility] [place] Date(s): 08/25/21 - 09/24/[address] [address] Allergies, Adverse Reactions, Alerts Substance [...] 0 Refills, Maintenance, 08/24/21 13:15:00 EST, Tablet, [facility] Start Date: 08/24/21 Status: Ordered Adderall XR 15 mg oral capsule, extended release 1 capsule = 15 mg, By Mouth, 2 times a day, Change from 10 mg XR and increase to 2 times per day. To take with short acting 5 mg, # 60 capsule, 0 Refills, Maintenance, 08/24/21 13:13:00 EST, ER Capsule, [facility], Partial fill upon leonardo... Start Date: 08/24/21 Status: Ordered albuterol CFC free 90 mcg/inh inhalation aerosol 2, puffs, Inhalation, Every 6 hours, PRN, # 2 each, Refills 11, Tot. Refills 11, Maintenance, 12/02/20 8:50:00 EDT, Aerosol, Route to Pharmacy Electronically, [id number], [facility], 155, cm, 06/03/20 13:15:00 E... [...] Refills, Soft Stop, 07/31/21 10:46:00 EST, Tablet, [facility], Partial fill upon patient request if the prescription is for a schedule II opioid drug., 155, cm, 06/09/21 14:21:00... Start Date: 1/3/22 Status: Ordered dilTIAZem 240 mg/24 hours oral tablet, extended release 1 tablet = 240 mg, By Mouth, Daily, FURTHER REFILLS BY DIRECTOR OF SPA AND GUEST EXPERIENCE, # 90 tablet, 0 Refills, Maintenance, 11/27/19 8:57:00 EDT, ER Tablet, [facility], 155, cm, 10/07/19 12:25:00 EDT, [...] tablet, 2 Refills, Maintenance, 05/06/20 15:17:00 EDT, [facility], 155, cm, 05/03/20 18:55:00 [...] 15:30:53 EST, Aerosol, Route to Pharmacy Electronically, [id number]... Start Date: 09/12/18 Stop Date: 02/09/19 Status: Ordered ProAir HFA 90 mcg/inh inhalation aerosol with adapter 2, puffs, Inhalation, Every 4 hours, PRN, use with spacer chamber BRAND NAME MEDICALLY NECESSARY, #8.5 Gm, Refills 0, Tot. Refills 0, Maintenance, 12/05/20 15:38:00 EDT, Aerosol, Route to Pharmacy Electronically, [id number]... Start Date: 12/05/20 Status: Ordered Sunosi 75 [...] 2 Refills, Maintenance, 08/04/20 12:39:00 EST, Capsule, [facility], Partial fill upon patient request [...] Active Bilateral leg pain(Confirmed) Active *BHN/CCA/CC-[facility]- [phone]/Health jail, active care coordination(Confirmed) Active POTS (postural orthostatic t achycardia syndrome)(Confirmed) Active Medulloblastoma(Confirmed) Active RUQ pain(Confirmed) Active Social History Social History Type Response Smoking Status Never smoker; Tobacc o user in household: No entered on: 04/11/16 Sex Female
--- OUTSIDE RECORDS SUMMARY | 2024-04-27 10:09 | XMS_ITS | Continuity of Care Document ---
Author Organization [facility] Address [address], [address], [address] [place] [address]- Care Team Providers Care Soda Maker Name Role Phone Sisi Hernandez MD Primary Care Physician Encounter [facility] Date(s): 12/08/20 - 01/07/21 [facility] [address], [address], [address] [place] [id number] Allergies, Adverse Reactions, Alerts [...] 12/22/20 12:53:00 EDT, Route to Pharmacy Electronically, [facility] Tablet, Partial fill upon patient request if the... Start Date: 12/22/20 Stop Date: 01/21/21 Status: Ordered albuterol CFC free 90 mcg/inh inhalation aerosol 2, puffs, Inhalation, Every 6 hours, PRN, # 2 each, Refills 11, Tot. Refills 11, Maintenance, 12/02/20 8:50:00 EDT, Aerosol, Route to Pharmacy Electronically, [id number], [facility], 155, cm, 06/03/20 13:15:00 [...] 6 Refills, Maintenance, 06/15/20 11:56:00 EST, Solution, [facility], 155, cm, 06/03/20 13:15:00 EST, Height, 68.5, kg, 06/03/20 13:18:00 EST, Dry Weight Start Date: 06/15/20 Status: Ordered dilTIAZem 240 mg/24 hours oral tablet, extended release 1 tablet = 240 mg, By Mouth, Daily, FURTHER REFILLS BY ROD HANGER, # 90 tablet, 0 Refills, Maintenance, 11/27/19 8:57:00 EDT, ER Tablet, [facility], 155, cm, 10/07/19 12:25:00 EDT, [...] tablet, 2 Refills, Maintenance, 05/06/20 15:17:00 EDT, [facility], 155, cm, 05/03/20 [...] 15:30:53 EST, Aerosol, Route to Pharmacy Electronically, [id number]... Start Date: 09/12/18 Stop Date: 02/09/19 Status: Ordered ProAir HFA 90 mcg/inh inhalation aerosol with adapter 2, puffs, Inhalation, Every 4 hours, PRN, use with spacer chamber BRAND NAME MEDICALLY NECESSARY, #8.5 Gm, Refills 0, Tot. Refills 0, Maintenance, 12/05/20 15:38:00 EDT, Aerosol, Route to Pharmacy Electronically, [id number]... Start Date: 12/05/20 Status: Ordered ramelteon 8 mg oral tablet 1 tablet = 8 mg, By Mouth, Daily at bedtime, # 30 tablet, 11 Refills, Maintenance, 12/02/20 8:48:00EDT, [facility], Partial fill upon patient [...] 2 Refills, Maintenance, 08/04/20 12:39:00 EST, Capsule, [facility], Partial fill upon patient [...] Near syncope(Confirmed) Active Bilateral leg pain(Confirmed) Active *BHN/CCA/CC-[facility]- [phone]/Health senior living, active care coordination(Confirmed) Active POTS (postural orthostatic t achycardia syndrome)(Confirmed) Active Medulloblastoma(Confirmed) Active RUQ pain(Confirmed) Active Viral URI(Confirmed) Active Social History Social History Type Response Smoking Status Never smoker; Tobacc o user in household: No entered on: 04/11/16 Sex
--- OUTSIDE RECORDS SUMMARY | 2024-04-27 10:09 | XMS_ITS | Continuity of Care Document ---
Author Organization [facility] Address [address] [place] [address]- Care Team Providers Care Travelift Operator Name Role Phone Sisi Hernandez MD Primary Care Physician Encounter [facility] Date(s): 11/27/22 - 12/27/22 [facility] [address] [address] Allergies, Adverse Reactions, Alerts Substance [...] Refills, Maintenance, 12/21/22 14:40:00 EDT, ER Capsule, [facility], Partial fill upon patient request if the prescription is for a schedule II opioid drug., 155, cm, 12/05/22 11:... Start Date: 12/21/22 Status: Ordered albuterol CFC free 90 mcg/inh inhalation aerosol 2, puffs, Inhalation, Every 6 hours, PRN, # 2 each, Refills 11, Tot. Refills 11, Maintenance, 02/15/22 13:12:00 EDT, Aerosol, Route to Pharmacy Electronically, [id number], [facility], ONLY ALBUTEROL HFA, CANCEL... Start Date: 02/15/22 Stop Date: 02/10/23 Status: Ordered Colace sodium 100 mg oral capsule 100 mg, 1, capsule, By Mouth, 2 times a day, PRN, # 30 capsule, Refills 0, Tot. Refills 0, Maintenance, for constipation, 07/31/22 11:03:00 EST, Route to Pharmacy Electronically, [facility], Partial fill upon patient request if [...] 6 Refills, Maintenance, 09/04/22 8:50:00 EST, Solution, [facility], 155, cm, 08/14/22 13:52:00 EST, Height, 68.1, kg, 08/14/22 13:52:00 EST, Dry Weight Start Date: 09/04/22 Status: Ordered esomeprazole 40 mg oral enteric coated capsule TAKE 1 CAPSULE BY MOUTH EVERY DAY Start Date: 07/12/22 Status: Ordered Flovent HFA 220 mcg/inh inhalation aerosol 2 puffs, Inhalation, 2 times a day, new dosage, # 12 Gm, 0 Refills, Maintenance, 02/15/22 13:10:00 EDT, Aerosol, [facility], new dosage, 155, cm, [...] 07/31/22 11:03:00 EST, Route to Pharmacy Electronically, [facility], Partial fill upon patient request if the prescription is for a schedule... Start Date: 07/31/22 Status: Ordered LORazepam 0.5 mg oral tablet See Instructions, TAKE 1 TABLET BY MOUTH TWO TIMES A DAY NEEDED FOR ANXIETY, # 28 tablet, 2 Refills, Maintenance, 12/05/22 12:25:00 EDT, [facility], 155, cm, 12/05/22 [...] Refills, Maintenance, 08/01/22 6:06:00 EST, REC Powder, [facility], Partial fill upon patient request if [...] Refills, Maintenance, 08/01/22 6:06:00 EST, Tablet, [facility], Partial fill upon patient request if the prescription is for a schedule II opioid drug., 155, cm,... Start Date: 08/01/22 Status: Ordered Symbicort 160mcg/4.5mcg Inhaler 2, puffs, Inhalation, 2 times a day, # 3 each, Refills 5, Tot. Refills 5, Maintenance, 09/27/22 12:00:00 EST, Aerosol, Route to Pharmacy Electronically, [id number], [facility], replaces flovent inhaler, 155, cm,... [...] 07/31/22 11:03:00 EST, Route to Pharmacy Electronically, [facility], Partial fill upon patient request if the prescription is... Start Date: 07/31/22 Status: Ordered verapamil 240 mg/12 hours oral tablet, extended release TAKE 1 TABLET BY MOUTH DAILY. Start Date: 09/27/22 Status: Ordered Vitamin D3 1000 intl units oral capsule 1 capsule = 25 mcg, By Mouth, Daily, # 100 capsule, 3 Refills, Maintenance, 06/05/22 14:27:00 EST, Capsule, [facility], Partial fill upon [...] Bilateral leg pain Confirmed Active *BHN/CCA/CC-[facility]- [phone]/Health [facility], active care coordination Confirmed Active POTS (postural orthostatic tachycardia syndrome) Confirmed Active Medulloblastoma Confirmed Active RUQ pain Confirmed Active Tachy-sharmin syndrome Confirmed Active Social History Social History Type Response Smoking Status Never smoker; Tobacc o user in household: No entered on: 04/11/16 Sex Patient Care team information Care Team Personnel Name: Vidhya Grace RN Position: [facility] RN Member Role: Primary Care Nurse Name: Sisi Hernandez MD Position: [facility] Physician - Primary Care Member Role: PCP Address: Address: [address] [place] [address] [facility] Name: Lizzette To RN Position: [facility] RN Member Role: Primary Care Nurse Name: Karolina Adkins MD Position: [facility] Physician - Primary Care Member Role: Lifetime Consulting Physician Address: Address: [address] [place] [address] [facility] [place], [place] [facility] Name: Rossy Rowe RN Position: [facility] SN RN Member Role: Primary Care Nurse Name: Cindi Hayward Position: [facility] RN Member Role: Primary Care Nurse Name: Bela Mcmahon RN Position: [facility] Hospital Insurance Commissioner Member Role: Primary Care Nurse Name: Nicole Hernandez RN Position: [facility] RN Member Role: Primary Care Nurse Name: Zac Castillo RN Position: [facility] ED RN W/OE and Tasks Member Role: Primary Care Nurse Name: Jeanne Grande RN Position: [facility] RN Member Role: Primary Care Nurse Care Team Related Persons Name: BEAR TURNER Address: home [address] [place] [address] Name: BEAR TURNER SECONDARY Address: home [address] [place] [address] Name: ISATU ECKERT Address: home [place], [place] Name: ISAAC VERDE PRIMARY Address: home [address] [place] [address] Name: ADRY DURANT Name: PANCHO JEROME Address: [place], [place]
--- OUTSIDE RECORDS SUMMARY | 2024-04-27 10:09 | XMS_ITS | Continuity of Care Document ---
Author Organization [facility] Address [address] [place] [address]- Care Team Providers Care Engine Testing Supervisor Name Role Phone Sisi Hernandez MD Primary Care Physician Encounter [facility] Date(s): 07/31/19 - 08/07/19 [facility] [address] [place] [address]- [facility] Encounter Diagnosis Abdominal pain(Discharge Diagnosis) - 08/01/19 POTS (postural orthostatic tachycardia syndrome)(Discharge Diagnosis) - 08/01/19 Adjustment disorder with mixed anxiety and depressed mood(Discharge Diagnosis) - 08/01/19 Attending Physician: Sisi Hernandez MD Allergies, Adverse [...] 12:10:52 EDT, Aerosol, Route to Pharmacy Electronically, [id number], [facility] Start Date: 03/10/19 Stop Date: 09/06/19 Status: Ordered Carafate 1 gm/10 ml oral suspension 10 mL = 1 Gm, By Mouth, 3 times a day before meals and bedtime, # 1,200 mL, 0 Refills, Maintenance,07/31/19 15:42:00 EST, [facility], CAN LET ME KNOW IF NOT COVERED, 155, cm, 07/31/19 15:01:00 EST, Height, 63, kg, 07/01/19 19:58:00 EST,... Start Date: 07/31/19 Status: Ordered Compression Stockings See Instructions, # [...] 3 Refills, Maintenance, 07/31/19 15:47:00 EST, Solution, [facility], 155, cm, 07/31/19 15:01:00 EST, Height, 63, kg, 07/01/19 19:58:00 EST, Dry Weight Start Date: 07/31/19 Status: Ordered dicyclomine 10 mg oral capsule 1 capsule = 10 mg, By Mouth, 3 times a day, PRN intestinal spasm, # 21 capsule, 3 Refills, Maintenance, 07/31/19 15:42:00 EST, Capsule, [facility], 155, cm, 07/31/19 15:01:00 EST, Height, 63, kg, 07/01/19 19:58:00 EST, Dry Weight Start Date: 07/31/19 Stop Date: 08/28/19 Status: Ordered famotidine 40 mg oral tablet 1 tablet = 40 mg, By Mouth, Daily at bedtime, # 30 tablet, 0 Refills, Maintenance, 07/21/19 13:46:00 EST, Tablet, [facility], 155, cm, 07/21/19 13:05:00 EST, Height, 63, kg, 07/01/19 19:58:00 EST, Dry Weight Start Date: 07/21/19 Stop Date: 08/20/19 Status: Ordered LORazepam 0.5 mg oral tablet See Instructions, TAKE 1 TABLET BY MOUTH TWO TIMES A DAY NEEDED FOR ANXIETY, # 28 tablet, 2 Refills, 01/16/19 11:31:00 EDT Start Date: 01/16/19 Status: Ordered MiraLax oral powder for reconstitution = 17 Gm, By Mouth, Daily, PRN Constipation, dissolve in water before taking, # 527 Gm, 0 Refills, Acute 08/08/19 14:35:00 EST, 07/06/19 14:35:49 EST, REC Powder, 17 Gm By Mouth Daily,PRN:Constipation,Instr:dissolve in water before taking, 155, cm, ... Start Date: 07/06/19 Stop Date: 08/08/19 Status: Ordered nitroglycerin 0.4 mg sublingual tablet [...] 15:30:53 EST, Aerosol, Route to Pharmacy Electronically, [id number]... Start Date: 09/12/18 Stop Date: 02/09/19 Status: Ordered syringe and needles syringe and needles, See Instructions, # 12 Unknown, Refills 3, Tot. Refills 3, Maintenance, syringe 3cc needles 25 g X 5/8 inches for use with b12, 07/31/19 15:49:00 EST, Compound, Dry Weight Start Date: 07/31/19 Status: Ordered verapamil 120 mg oral capsule, extended release 1 capsule = 120 mg, By Mouth, Daily, # 30 capsule, 0 Refills, Maintenance, 07/21/19 13:36:00 EST, CR Capsule, [facility], lower dose for a month, 155, cm, 07/21/19 13:05:00 EST, Height,63, kg, 07/01/19 19:58:00 EST, Dry Weight Start Date: 07/21/19 Stop Date: 08/20/19 Status: Ordered Vitamin B12 1000 mcg oral tablet 1 tablet = 1,000 mcg, By Mouth, Daily, # 30 tablet, 5 Refills, Maintenance, 01/02/19 17:18:44 EDT, Tablet Start Date: 01/02/19 Status: Ordered Xifaxan 550 mg oral tablet 1 tablet = 550 mg, By Mouth, 3 times a day, # 42 tablet, 0 Refills, Maintenance, 07/21/19 12:29:00 EST, Tablet, [facility], 155, cm, 07/21/19 11:37:00 EST, Height, [...] Anxiety(Confirmed) Active Asthma(Confirmed) Active Back pain(Confirmed) Active Chronic insomnia(Confirmed) Active Deep vein thrombosis(Confirmed) Active Right leg DVT(Confirmed) Active GERD (gastroesophageal reflu x disease)(Confirmed) Active IBS (irritable bowel syndrome)(Confirmed) 01/23/16 Active Near syncope(Confirmed) Active *BHN/CCA/CC-[facility]-[phone]/[facility] [place] [facility], active care coordination(Confirmed) Active Matias DELA CRUZ [facility] [employer] [phone](Confirmed) Active POTS (postural orthostatic t achycardia syndrome)(Confirmed) Active Medulloblastoma(Confirmed) Active RUQ pain(Confirmed) Active Diagnosis Diagnosis Type Effective Dates Health Status Clinical Service Informant Adjustment disorder with mixed anxiety and depressed mood Discharge Diagnosis 08/01/19 POTS (postural orthostatic tachycardia syndrome) Discharge Diagnosis 08/01/19 Abdominal pain Discharge Diagnosis 08/01/19 Vital Signs Most recent to oldest [Reference Range]: 1 Height 155 cm (07/31/19 3:01 PM) Weight 65.7 kg (07/31/19 3:01 PM) Oxygen Saturation [94-100 %] 97 % (07/31/19 3:01 PM) Pulse Rate [55-90 bpm] 99 bpm *H* (07/31/19 3:01 PM) Body Mass Index [18.5-24.99] 27.35 *H* (07/31/19 3:01 PM) Blood Pressure [90-138/55-84 mm Hg] 98/5 6mm Hg (07/31/19 3:01 PM) Temperature [96.8-100.4 DegF] 97.9 DegF (07/31/19 3:01 PM) Mode of Delivery (Oxygen) Room air (07/31/19 3:01 PM) Blood pressure sites Arm, left (07/31/19 3:01 PM) Temperature Route Oral (07/31/19 3:01 PM) Weight Obtained Via Standing scale (07/31/19 3:01 PM) Social History Social History Type Response Smoking Status Never smoker; Tobacc o user in household: No entered on: 04/11/16 Sex
--- OUTSIDE RECORDS SUMMARY | 2024-04-27 10:09 | XMS_ITS | Continuity of Care Document ---
Author Organization [facility] Address [address] [place] [address]- Care Team Providers Care Full Stack Software Engineer Name Role Phone Sisi Hernandez MD Primary Care Physician Encounter [facility] Date(s): 08/02/23 - 09/01/23 [facility] [address] [place], [place] [address] Allergies, Adverse Reactions, Alerts Substance [...] Refills, Maintenance, 12/21/22 14:40:00 EDT, ER Capsule, [facility], Partial fill upon patient request if the prescription is for a schedule II opioid drug., 155, cm, 12/05/22 11:... Start Date: 12/21/22 Status: Ordered albuterol CFC free 90 mcg/inh inhalation aerosol 2, puffs, Inhalation, Every 6 hours, PRN, # 2 each, Refills 11, Tot. Refills 11, Maintenance, 02/15/22 13:12:00 EDT, Aerosol, Route to Pharmacy Electronically, [id number], [facility], ONLY ALBUTEROL HFA, CANCEL... Start Date: 02/15/22 Stop Date: 02/10/23 Status: Ordered Colace sodium 100 mg oral capsule 100 mg, 1, capsule, By Mouth, 2 times a day, PRN, # 180 capsule, Refills 3, Tot. Refills 3, Maintenance, for constipation, 08/09/23 14:49:00 EST, Route to Pharmacy Electronically, [facility], Partial fill upon patient request [...] 6 Refills, Maintenance, 08/07/23 13:45:00 EST, Solution, [facility], 155, cm, 06/07/23 20:58:00 [...] 0 Refills, Maintenance, 02/15/22 13:10:00 EDT, Aerosol, [facility], new dosage, 155, cm, [...] 07/31/22 11:03:00 EST, Route to Pharmacy Electronically, [facility], Partial fill upon patient request if the prescription is for a schedule... Start Date: 07/31/22 Status: Ordered LORazepam 0.5 mg oral tablet See Instructions, TAKE 1 TABLET BY MOUTH TWO TIMES A DAY NEEDED FOR ANXIETY, # 28 tablet, 2 Refills, Maintenance, 12/05/22 12:25:00 EDT, [facility], 155, cm, 12/05/22 [...] 0 Refills, Maintenance, 08/01/22 6:06:00 EST, Tablet, [facility], Partial fill upon patient request if the prescription is for a schedule II opioid drug., 155, cm,... Start Date: 08/01/22 Status: Ordered Symbicort 160mcg/4.5mcg Inhaler 2, puffs, Inhalation, 2 times a day, # 3 each, Refills 5, Tot. Refills 5, Maintenance, 09/27/22 12:00:00 EST, Aerosol, Route to Pharmacy Electronically, [id number], [facility], replaces flovent inhaler, 155, cm,... Start [...] 07/31/22 11:03:00 EST, Route to Pharmacy Electronically, [facility], Partial fill upon patient [...] Refills, Maintenance, 08/14/23 13:38:00 EST, Chew Tablet, [facility], Partial fill upon patient request if the prescription is for a schedule II opioid drug., 155, cm, 08/14/23 13:0... Start Date: 08/14/23 Status: Ordered Vitamin D3 50,000 intl units oral capsule 1 capsule = 1,250 mcg, By Mouth, Every week, # 13 capsule, 1 Refills, Maintenance, 05/17/23 17:07:00 EDT, Capsule, [facility], Partial fill upon patient [...] Bilateral leg pain Confirmed Active *BHN/CCA/CC-[facility]- [phone]/[facility], active care coordination Confirmed Active POTS (postural orthostatic tachycardia syndrome) Confirmed Active Medulloblastoma Confirmed Active RUQ pain Confirmed Active Tachy-sharmin syndrome Confirmed Active Social History Social History Type Response Smoking Status Never smoker; Tobacc o user in household: No entered on: 04/11/16 Sex Patient Care team information Care Team Personnel Name: Vidhya Grace RN Position: [facility] RN Member Role: Primary Care Nurse Name: Sisi Hernandez MD Position: [facility] Physician - Primary Care Member Role: PCP Address: Address: [address] [place] [address] - Name: Lizzette To RN Position: [facility] SN RN Member Role: Primary Care Nurse Name: Karolina Adkins MD Position: [facility] Physician - Primary Care Member Role: Lifetime Consulting Physician Address: Address: [address] [place] [address] [facility] [place], [place] [facility] Name: Isadora Godfrey RN Position: [facility] RN Member Role: Primary Care Nurse Name: Rossy Rowe RN Position: [facility] SN RN Member Role: Primary Care Nurse Name: Cindi Hayward RN Position: [facility] RN Member Role: Primary Care Nurse Name: Bela Mcmahon RN Position: [facility] Atmospheric Sciences Professor Member Role: Primary Care Nurse Name: Nicole Hernandez RN Position: [facility] RN Member Role: Primary Care Nurse Name: Zac Castillo RN Position: [facility] ED RN W/OE and Tasks Member Role: Primary Care Nurse Name: Jeanne Grande RN Position: [facility] RN Member Role: Primary Care Nurse Care Team Related Persons Name: BEAR TURNER Address: home [address] [place] [address] Name: BEAR TURNER SECONDARY Address: home [address] [place] [address] Name: ISATU ECKERT Address: home [place], [place] Name: ISAAC VERDE PRIMARY Address: home [address] [place] [address] Name: ADRY DURANT Name: PANCHO JEROME Address: [place] [address]
--- OUTSIDE RECORDS SUMMARY | 2024-04-27 10:10 | XMS_ITS | Continuity of Care Document ---
Author Organization [facility] Address [address] [place] [address]- Care Team Providers Care Customer Success Manager Name Role Phone Sisi Hernandez MD Primary Care Physician Encounter [facility] Date(s): 12/25/23 - 01/24/[address] [address] Attending Physician: AdmAngel can Admitting Physician: Admtr ArAndrea Referring Physician: Admtr, Ar8 Allergies, Adverse Reactions, [...] 13:12:00 EDT, Aerosol, Route to Pharmacy Electronically, [id number], [facility], ONLY ALBUTEROL HFA, CANCEL... Start Date: 02/15/22 Stop Date: 02/10/23 Status: Ordered Colace sodium 100 mg oral capsule 100 mg, 1, capsule, By Mouth, 2 times a day, PRN, # 180 capsule, Refills 3, Tot. Refills 3, Maintenance, for constipation, 08/09/23 14:49:00 EST, Route to Pharmacy Electronically, [facility], Partial fill upon [...] 2 Refills, Maintenance, 11/22/23 15:23:00 EDT, Solution, [facility], dose change, 155, [...] 0 Refills, Maintenance, 02/15/22 13:10:00 EDT, Aerosol, [facility], new dosage, 155, [...] 07/31/22 11:03:00 EST, Route to Pharmacy Electronically, [facility], Partial fill upon patient request if the prescription is for a schedule... Start Date: 07/31/22 Status: Ordered ketoconazole 1% topical shampoo See Instructions, Apply 5 to 10 mL to wet scalp, lather, leave on 3 to 5 minutes, and rinse; apply twice weekly for 2 to 4 weeks., # 200 mL, 5 Refills, Maintenance, 11/22/23 15:46:00 EDT, [facility], Partial fill upon patient request if... Start Date: 11/22/23 Status: Ordered ketoconazole 2% topical shampoo 1 application, Topically, Once, Apply 5 to 10 mL to wet scalp, lather, leave on 3 to 5 minutes, andrinse; apply weekly for 2 to 4 weeks., # 120 mL, 4 Refills, Soft Stop, 11/25/23 12:40:00 EDT, Shampoo, [facility], Partial fill upon pat... Start Date: 11/25/23 Status: Ordered LORazepam 0.5 mg oral tablet See Instructions, TAKE 1 TABLET BY MOUTH TWO TIMES A DAY NEEDED FOR ANXIETY, # 28 tablet, 2 Refills, Maintenance, 12/05/22 12:25:00 EDT, [facility], 155, cm, 12/05/22 11:40:00 EDT, Height, [...] 0 Refills, Maintenance, 08/01/22 6:06:00 EST, Tablet, [facility], Partial fill upon patient request if the prescription is for a schedule II opioid drug., 155, cm,... Start Date: 08/01/22 Status: Ordered Symbicort 160mcg/4.5mcg Inhaler 2, puffs, Inhalation, 2 times a day, # 3 each, Refills 5, Tot. Refills 5, Maintenance, 09/27/22 12:00:00 EST, Aerosol, Route to Pharmacy Electronically, [id number], [facility], replaces flovent inhaler, 155, cm,... [...] 07/31/22 11:03:00 EST, Route to Pharmacy Electronically, [facility], Partial fill upon patient request if [...] Refills, Maintenance, 08/14/23 13:38:00 EST, Chew Tablet, [facility], Partial fill upon patient request if the prescription is for a schedule II opioid drug., 155, cm, 08/14/23 13:0... Start Date: 08/14/23 Status: Ordered Vitamin D3 50,000 intl units oral capsule 1 capsule = 1,250 mcg, By Mouth, Every week, # 13 capsule, 1 Refills, Maintenance, 05/17/23 17:07:00 EDT, Capsule, [facility], Partial fill upon [...] 0 Refills, Maintenance, 11/01/23 14:07:00 EDT, Capsule, [facility], Partial fill u... 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 Social History Social History Type Response Smoking Status Never smoker; Tobacc o user in household: No entered on: 04/11/16 Sex Patient Care team information Care Team Personnel Name: Vidhya Grace RN Position: [facility] RN Member Role: Primary Care Nurse Name: Sisi Hernandez MD Position: [facility] Physician - Primary Care Member Role: PCP Address: Address: [address] [place] [address] Name: Yousuf MONTELONGO, Lizzette Position: [facility] SN RN Member Role: Primary Care Nurse Name: Karolina Adkins MD Position: [facility] Physician - Primary Care Member Role: Lifetime Consulting Physician Address: Address: [address] [place] [address] [facility] [place] [address]- Name: Iasdora Godfrey RN Position: [facility] RN Member Role: Primary Care Nurse Name: Rossy Rowe RN Position: [facility] SN RN Member Role: Primary Care Nurse Name: Cindi Hayward RN Position: [facility] RN Member Role: Primary Care Nurse Name: Bela Mcmahon RN Position: [facility] Hospital Machine Try Out Setter Member Role: Primary Care Nurse Name: Nicole Hernandez RN Position: [facility] RN Member Role: Primary Care Nurse Name: Zac Castillo RN Position: [facility] ED RN W/OE and Tasks Member Role: Primary Care Nurse Name: Jeanne Grande RN Position: [facility] RN Member Role: Primary Care Nurse Care Team Related Persons Name: BEAR TURNER Address: home [address] [place] [address] Name: BEAR TURNER SECONDARY Address: home [address] [place] [address] Name: ISATU ECKERT Address: [place] [address] Name: ISAAC VERDE PRIMARY Address: home [address] [place] [address] Name: ADRY DURANT Name: PANCHO JEROME Address: [place] [address]
--- OUTSIDE RECORDS SUMMARY | 2024-04-27 10:10 | XMS_ITS | Continuity of Care Document ---
Author Organization [facility] Address [address] [place] [address]- Care Team Providers Care Data Consultant Name Role Phone Sisi Hernandez MD Primary Care Physician Encounter [facility] Date(s): 10/09/21 - 04/11/[address] [address] Discharge Disposition: A-D/C Home Attending Physician: Sisi [...] 11/16/21 23:51:00 EDT, Route to Pharmacy Electronically, [facility], Partial fill upon patient request if the presc... Start Date: 11/16/21 Status: Ordered albuterol CFC free 90 mcg/inh inhalation aerosol 2, puffs, Inhalation, Every 6 hours, PRN, # 2 each, Refills 11, Tot. Refills 11, Maintenance, 02/15/22 13:12:00 EDT, Aerosol, Route to Pharmacy Electronically, [id number], [facility], ONLY ALBUTEROL HFA, [...] 6 Refills, Maintenance, 10/03/21 12:18:00 EST, Solution, [facility], 155, cm, 09/27/21 15:08:00 EST, Height, 68.5, kg, 06/03/20 13:18:00 EST, Dry Weight Start Date: 10/03/21 Status: Ordered cyanocobalamin 1000 mcg/ml injectable solution 1 mL = 1,000 mcg, Intramuscular, Every 30 days, # 3 mL, 6 Refills, Maintenance, 06/15/20 11:56:00 EST, Solution, [facility], 155, cm, 06/03/20 13:15:00 EST, Height, 68.5, kg, 06/03/20 13:18:00 EST, Dry Weight Start Date: 06/15/20 Status: Ordered dilTIAZem 240 mg/24 hours oral tablet, extended release 1 tablet = 240 mg, By Mouth, Daily, FURTHER REFILLS BY [employer] PROF[employer]AL, # 90 tablet, 0 Refills, Maintenance, 11/27/19 8:57:00 EDT, ER Tablet, [facility], 155, cm, 10/07/19 12:25:00 EDT, Height, 63, kg, 07/01/19 19:58:00 EST, Dry Weight Start Date: 11/27/19 Status: Ordered Flovent HFA 220 mcg/inh inhalation aerosol 2 puffs, Inhalation, 2 times a day, new dosage, # 12 Gm, 0 Refills, Maintenance, 02/15/22 13:10:00 EDT, Aerosol, [facility], new dosage, 155, [...] 11/16/21 23:51:00 EDT, Route to Pharmacy Electronically, [facility], Partial fill upon patient request if the prescription is... Start Date: 11/16/21 Status: Ordered LORazepam 0.5 mg oral tablet See Instructions, TAKE 1 TABLET BY MOUTH TWO TIMES A DAY NEEDED FOR ANXIETY, # 28 tablet, 2 Refills, Maintenance, 05/06/20 15:17:00 EDT, [facility], 155, cm, [...] Refills, Maintenance, 11/16/21 23:51:00 EDT, DIS Tablet, [facility], Partial fill upon patient request if the prescription is for a schedule II o... Start Date: 11/16/21 Status: Ordered Peridex 0.12% liquid 15 mL = 0.018 Gm, By Mouth, 2 times a day, # 420 mL, 0 Refills, Maintenance, 01/18/22 8:47:00 EDT, Liquid, [facility], Partial fill upon [...] 3 Refills, Maintenance, 10/25/21 11:13:00 EDT, Capsule, [facility], Partial fill upon patient request if [...] Active Bilateral leg pain(Confirmed) Active *BHN/CCA/CC-Matias Vela- [phone]/Health fdc, active care coordination(Confirmed) Active POTS (postural orthostatic t achycardia syndrome)(Confirmed) Active Medulloblastoma(Confirmed) Active RUQ pain(Confirmed) Active Social History Social History Type Response Smoking Status Never smoker; Tobacc o user in household: No entered on: 04/11/16 Sex Female Care Team Personnel Name: Sisi Hernandez MD Address: [address] [place] [address]
--- OUTSIDE RECORDS SUMMARY | 2024-04-27 10:10 | XMS_ITS | Continuity of Care Document ---
Author Organization [facility] Address [address] [place] [address]- Care Team Providers Care Snow Maker Name Role Phone Sisi Hernandez MD Primary Care Physician [phone] Encounter [facility] Date(s): 09/14/21 - 10/14/21 [facility] [address] [place], [place] [address] Allergies, Adverse Reactions, Alerts Substance [...] 0 Refills, Maintenance, 09/27/21 15:38:00 EST, Tablet, [facility], Partial fill upon patient request [...] Refills, Maintenance, 09/27/21 15:31:00 EST, ER Capsule, [facility], Partial fill upon patient r... Start Date: 09/27/21 Status: Ordered albuterol CFC free 90 mcg/inh inhalation aerosol 2, puffs, Inhalation, Every 6 hours, PRN, # 2 each, Refills 11, Tot. Refills 11, Maintenance, 10/05/21 9:52:00 EST, Aerosol, Route to Pharmacy Electronically, [id number], [facility], ONLY ALBUTEROL HFA, CANCEL V... Start [...] 6 Refills, Maintenance, 10/03/21 12:18:00 EST, Solution, [facility] 3, 155, cm, 09/27/21 15:08:00 EST, Height, 68.5, kg, 06/03/20 13:18:00 EST, Dry Weight Start Date: 10/03/21 Status: Ordered cyanocobalamin 1000 mcg/ml injectable solution 1 mL = 1,000 mcg, Intramuscular, Every 30 days, # 3 mL, 6 Refills, Maintenance, 06/15/20 11:56:00 EST, Solution, [facility] 3, 155, cm, 06/03/20 13:15:00 EST, Height, 68.5, kg, 06/03/20 13:18:00 EST, Dry Weight Start Date: 06/15/20 Status: Ordered Diflucan 150 mg oral tablet 1 tablet = 150 mg, By Mouth, Every 48 hours, # 2 tablet, 0 Refills, Soft Stop, 07/31/21 10:46:00 EST, Tablet, [facility], Partial fill upon patient request if the prescription is for a schedule II opioid drug., 155, cm, 06/09/21 14:21:00... Start Date: 07/31/21 Status: Ordered dilTIAZem 240 mg/24 hours oral tablet, extended release 1 tablet = 240 mg, By Mouth, Daily, FURTHER REFILLS BY [employer]ARY PUBLIC, # 90 tablet, 0 Refills, Maintenance, 11/27/19 8:57:00 EDT, ER Tablet, [facility], 155, cm, 10/07/19 12:25:00 EDT, Height, 63, kg, 07/01/19 19:58:00 EST, Dry Weight Start Date: 11/27/19 Status: Ordered Flovent HFA 110 mcg/inh inhalation aerosol 2 puffs, Inhalation, 2 times a day, # 12 Gm, 0 Refills, Maintenance, 10/05/21 13:23:00 EST, Aerosol, [facility], Partial fill upon patient request [...] tablet, 2 Refills, Maintenance, 05/06/20 15:17:00 EDT, [facility], 155, cm, 05/03/20 18:55:00 [...] EDT, Tablet Start Date: 12/10/17 Status: Ordered Sunosi 75 mg oral tablet [...] 2 Refills, Maintenance, 08/04/20 12:39:00 EST, Capsule, [facility], Partial fill upon patient request [...] Active Bilateral leg pain(Confirmed) Active *BHN/CCA/CC-Matias Vela- [phone]/Health mcc, active care coordination(Confirmed) Active POTS (postural orthostatic t achycardia syndrome)(Confirmed) Active Medulloblastoma(Confirmed) Active RUQ pain(Confirmed) Active Social History Social History Type Response Smoking Status Never smoker; Tobacc o user in household: No entered on: 04/11/16 Sex Female
--- OUTSIDE RECORDS SUMMARY | 2024-04-27 10:10 | XMS_ITS | Continuity of Care Document ---
Author Organization [facility] Address [address] [place] [address]- Care Team Providers Care Acid Supervisor Name Role Phone Sisi Hernandez MD Primary Care Physician [phone] Encounter [facility] Date(s): 11/22/23 - 12/22/23 [facility] [address] [place], [place] [address] Allergies, Adverse Reactions, Alerts [...] 13:12:00 EDT, Aerosol, Route to Pharmacy Electronically, [id number], [facility], ONLY ALBUTEROL HFA, CANCEL... Start Date: 02/15/22 Stop Date: 02/10/23 Status: Ordered Colace sodium 100 mg oral capsule 100 mg, 1, capsule, By Mouth, 2 times a day, PRN, # 180 capsule, Refills 3, Tot. Refills 3, Maintenance, for constipation, 08/09/23 14:49:00 EST, Route to Pharmacy Electronically, [facility], Partial fill upon [...] 2 Refills, Maintenance, 11/22/23 15:23:00 EDT, Solution, [facility], dose change, 155, [...] 0 Refills, Maintenance, 02/15/22 13:10:00 EDT, Aerosol, [facility], new dosage, 155, [...] 07/31/22 11:03:00 EST, Route to Pharmacy Electronically, [facility], Partial fill upon patient request if the prescription is for a schedule... Start Date: 07/31/22 Status: Ordered ketoconazole 1% topical shampoo See Instructions, Apply 5 to 10 mL to wet scalp, lather, leave on 3 to 5 minutes, and rinse; apply twice weekly for 2 to 4 weeks., # 200 mL, 5 Refills, Maintenance, 11/22/23 15:46:00 EDT, [facility], Partial fill upon patient request if... Start Date: 11/22/23 Status: Ordered ketoconazole 2% topical shampoo 1 application, Topically, Once, Apply 5 to 10 mL to wet scalp, lather, leave on 3 to 5 minutes, andrinse; apply weekly for 2 to 4 weeks., # 120 mL, 4 Refills, Soft Stop, 11/25/23 12:40:00 EDT, Shampoo, [facility], Partial fill upon pat... Start Date: 11/25/23 Status: Ordered LORazepam 0.5 mg oral tablet See Instructions, TAKE 1 TABLET BY MOUTH TWO TIMES A DAY NEEDED FOR ANXIETY, # 28 tablet, 2 Refills, Maintenance, 12/05/22 12:25:00 EDT, [facility], [facility], cm, 12/05/22 11:40:00 EDT, [...] 0 Refills, Maintenance, 08/01/22 6:06:00 EST, Tablet, [facility] 3, Partial fill upon patient request if the prescription is for a schedule II opioid drug., 155, cm,... Start Date: 08/01/22 Status: Ordered Symbicort 160mcg/4.5mcg Inhaler 2, puffs, Inhalation, 2 times a day, # 3 each, Refills 5, Tot. Refills 5, Maintenance, 09/27/22 12:00:00 EST, Aerosol, Route to Pharmacy Electronically, [id number], [facility], replaces flovent inhaler, 155, [...] 07/31/22 11:03:00 EST, Route to Pharmacy Electronically, [facility], Partial fill upon [...] Refills, Maintenance, 08/14/23 13:38:00 EST, Chew Tablet, [facility], Partial fill upon patient request if the prescription is for a schedule II opioid drug., 155, cm, 08/14/23 13:0... Start Date: 08/14/23 Status: Ordered Vitamin D3 50,000 intl units oral capsule 1 capsule = 1,250 mcg, By Mouth, Every week, # 13 capsule, 1 Refills, Maintenance, 05/17/23 17:07:00 EDT, Capsule, [facility], Partial fill upon [...] 0 Refills, Maintenance, 11/01/23 14:07:00 EDT, Capsule, [facility], Partial fill u... 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 Social History Social History Type Response Smoking Status Never smoker; Tobacc o user in household: No entered on: 04/11/16 Sex Patient Care team information Care Team Personnel Name: Vidhya Grace RN Position: [facility] RN Member Role: Primary Care Nurse Name: Sisi Hernandez MD Position: [facility] Physician - Primary Care Member Role: PCP Address: Address: [address] [place] [id number]- Name: Lizzette To RN Position: [facility] RN Member Role: Primary Care Nurse Name: Karolina Adkins MD Position: [facility] Physician - Primary Care Member Role: Lifetime Consulting Physician Address: Address: [address] [place] [address] [facility] [place] [address]- [place] Name: Isadora Godfrey RN Position: [facility] RN Member Role: Primary Care Nurse Name: Rossy Rowe RN Position: [facility] SN RN Member Role: Primary Care Nurse Name: Cindi Hayward RN Position: [facility] RN Member Role: Primary Care Nurse Name: Bela Mcmahon RN Position: [facility] Hospital [place] Member Role: Primary Care Nurse Name: Nicole Hernandez RN Position: [facility] RN Member Role: Primary Care Nurse Name: Zac Castillo RN Position: [facility] ED RN W/OE and Tasks Member Role: Primary Care Nurse Name: Harjinder MONTELONGO, Jeanne Baker Position: [facility] RN Member Role: Primary Care Nurse Care Team Related Persons Name: BEAR TURNER Address: home [address] [place] [address] Name: BERA TURNER SECONDARY Address: [address] [address] Name: ISATU ECKERT Address: [place] [address] Name: ISAAC VERDE PRIMARY Address: home [address] [place] [address] Name: ADRY DURANT Name: PANCHO JEROME Address: [place] [address]
--- OUTSIDE RECORDS SUMMARY | 2024-04-27 10:10 | XMS_ITS | Continuity of Care Document ---
Author Organization [facility] Address [address] [place] [address]- Care Team Providers Care Supervisor [employer]il[employer]aking [employer] Name Role Phone Sisi Hernandez MD Primary Care Physician [phone] [facility] [place] Date(s): 08/26/23 - 09/25/23 [facility] [address] [place], [place] [address] Allergies, Adverse Reactions, Alerts Substance Reaction Severity Status cefoxitin Cough Tightness in throat Active Sertraline Hydrochloride skin burning burning Active [...] Refills, Maintenance, 12/21/22 14:40:00 EDT, ER Capsule, [facility], Partial fill upon patient request if the prescription is for a schedule II opioid drug., 155, cm, 12/05/22 11:... Start Date: 12/21/22 Status: Ordered albuterol CFC free 90 mcg/inh inhalation aerosol 2, puffs, Inhalation, Every 6 hours, PRN, # 2 each, Refills 11, Tot. Refills 11, Maintenance, 02/15/22 13:12:00 EDT, Aerosol, Route to Pharmacy Electronically, [id number], [facility], ONLY ALBUTEROL HFA, CANCEL... Start Date: 02/15/22 Stop Date: 02/10/23 Status: Ordered Colace sodium 100 mg oral capsule 100 mg, 1, capsule, By Mouth, 2 times a day, PRN, # 180 capsule, Refills 3, Tot. Refills 3, Maintenance, for constipation, 08/09/23 14:49:00 EST, Route to Pharmacy Electronically, [facility], Partial fill upon patient [...] 6 Refills, Maintenance, 08/07/23 13:45:00 EST, Solution, [facility], 155, cm, 06/07/23 20:58:00 [...] 0 Refills, Maintenance, 02/15/22 13:10:00 EDT, Aerosol, [facility], new dosage, 155, cm, [...] 07/31/22 11:03:00 EST, Route to Pharmacy Electronically, [facility], Partial fill upon patient request if the prescription is for a schedule... Start Date: 07/31/22 Status: Ordered LORazepam 0.5 mg oral tablet See Instructions, TAKE 1 TABLET BY MOUTH TWO TIMES A DAY NEEDED FOR ANXIETY, # 28 tablet, 2 Refills, Maintenance, 12/05/22 12:25:00 EDT, [facility] 3, 155, cm, 12/05/22 11:40:00 EDT, [...] 0 Refills, Maintenance, 08/01/22 6:06:00 EST, Tablet, [facility], Partial fill upon patient request if the prescription is for a schedule II opioid drug., 155, cm,... Start Date: 08/01/22 Status: Ordered Symbicort 160mcg/4.5mcg Inhaler 2, puffs, Inhalation, 2 times a day, # 3 each, Refills 5, Tot. Refills 5, Maintenance, 09/27/22 12:00:00 EST, Aerosol, Route to Pharmacy Electronically, [id number], [facility], replaces flovent inhaler, 155, cm,... Start Date: 09/27/22 Status: Ordered syringe and needles syringe and needles, See Instructions, # 12 Unknown, Refills 3, Tot. Refills 3, Maintenance, syringe 3cc needles 25 g X 5/8 inches for use with b12, 03/04/20 9:54:00 EDT, Compound, 155, cm, 10/07/19 12:25:00 EDT, Height, 63, kg, 07/01/19 19:58:00 EST... Start Date: 03/04/20 Status: Ordered traMADol 50 mg oral tablet 1 tablet = 50 mg, By Mouth, 2 times a day, PRN for pain, for 7 days, # 14 tablet, 0 Refills, Acute 10/02/23 15:40:00 EST, 09/25/23 15:40:00 EST, Tablet, [facility], Partial fill upon patient request if the prescription is for a schedule... Start Date: 09/25/23 Stop Date: 10/02/23 Status: Ordered Tylenol 325 mg oral tablet 975 mg, 3, tablet, By Mouth, Every 6 hours, PRN, # 50 tablet, Refills 0, Tot. Refills 0, Maintenance, for pain, 07/31/22 11:03:00 EST, Route to Pharmacy Electronically, [facility], Partial fill upon patient [...] Refills, Maintenance, 08/14/23 13:38:00 EST, Chew Tablet, [facility], Partial fill upon patient request if the prescription is for a schedule II opioid drug., 155, cm, 08/14/23 13:0... Start Date: 08/14/23 Status: Ordered Vitamin D3 50,000 intl units oral capsule 1 capsule = 1,250 mcg, By Mouth, Every week, # 13 capsule, 1 Refills, Maintenance, 05/17/23 17:07:00 EDT, Capsule, [facility], Partial fill upon patient [...] Bilateral leg pain Confirmed Active *BHN/CCA/CC-[facility]- [phone]/Health skilled nursing, active care coordination Confirmed Active POTS (postural orthostatic tachycardia syndrome) Confirmed Active Medulloblastoma Confirmed Active RUQ pain Confirmed Active Tachy-sharmin syndrome Confirmed Active Social History Social History Type Response Smoking Status Never smoker; Tobacc o user in household: No entered on: 04/11/16 Sex Patient Care team information Care Team Personnel Name: Vidhya Grace RN Position: [facility] RN Member Role: Primary Care Nurse Name: Sisi Hernandez MD Position: [facility] Physician - Primary Care Member Role: PCP Address: Address: [address] [place] [address] Name: Lizzette To RN Position: [facility] RN Member Role: Primary Care Nurse Name: Karolina Adkins MD Position: [facility] Physician - Primary Care Member Role: Lifetime Consulting Physician Address: Address: [address] [place] [address] [facility] [address] Name: Isadora Godfrey RN Position: [facility] RN Member Role: Primary Care Nurse Name: Rossy Rowe RN Position: [facility] SN RN Member Role: Primary Care Nurse Name: Cindi Hayward RN Position: [facility] RN Member Role: Primary Care Nurse Name: Bela Mcmahon RN Position: [facility] Hospital Hard Candy Spinner Member Role: Primary Care Nurse Name: Nicole Hernandez RN Position: [facility] RN Member Role: Primary Care Nurse Name: Zac Castillo RN Position: [facility] ED RN W/OE and Tasks Member Role: Primary Care Nurse Name: Harjinder MONTELONGO, Jeanne Baker Position: S RN Member Role: Primary Care Nurse Care Team Related Persons Name: BEAR TURNER Address: home [address] [place] [id number] Name: TURNER BEAR SECONDARY Address: [address] [address] Name: ISATU ECKERT Address: [place] [address] Name: ISAAC VERDE PRIMARY Address: [address] [address] Name: ADRY DURANT Name: PANCHO JEROME Address: [place] [address]
--- OUTSIDE RECORDS SUMMARY | 2024-04-27 10:10 | XMS_ITS | Continuity of Care Document ---
Author Organization [facility] ter Address [address] [place] [address]- Care Team Providers Care Greaser And Oiler Name Role Phone Sisi Hernandez MD Primary Care Physician Encounter [facility] [place] Date(s): 12/10/23 - 01/15/[address] [address] Attending Physician: Sisi Hernandez MD Admitting Physician: [...] 13:12:00 EDT, Aerosol, Route to Pharmacy Electronically, [id number], [facility], ONLY ALBUTEROL HFA, CANCEL... Start Date: 02/15/22 Stop Date: 02/10/23 Status: Ordered Colace sodium 100 mg oral capsule 100 mg, 1, capsule, By Mouth, 2 times a day, PRN, # 180 capsule, Refills 3, Tot. Refills 3, Maintenance, for constipation, 08/09/23 14:49:00 EST, Route to Pharmacy Electronically, [facility], Partial fill [...] 2 Refills, Maintenance, 11/22/23 15:23:00 EDT, Solution, [facility], dose change, 155, cm, 11/22/23 [...] 0 Refills, Maintenance, 02/15/22 13:10:00 EDT, Aerosol, [facility], new dosage, 155, cm, 12/08/21 [...] 07/31/22 11:03:00 EST, Route to Pharmacy Electronically, [facility], Partial fill upon patient request if the prescription is for a schedule... Start Date: 07/31/22 Status: Ordered ketoconazole 1% topical shampoo See Instructions, Apply 5 to 10 mL to wet scalp, lather, leave on 3 to 5 minutes, and rinse; apply twice weekly for 2 to 4 weeks., # 200 mL, 5 Refills, Maintenance, 11/22/23 15:46:00 EDT, [facility], Partial fill upon patient request if... Start Date: 11/22/23 Status: Ordered ketoconazole 2% topical shampoo 1 application, Topically, Once, Apply 5 to 10 mL to wet scalp, lather, leave on 3 to 5 minutes, andrinse; apply weekly for 2 to 4 weeks., # 120 mL, 4 Refills, Soft Stop, 11/25/23 12:40:00 EDT, Shampoo, [facility], Partial fill upon pat... Start Date: 11/25/23 Status: Ordered LORazepam 0.5 mg oral tablet See Instructions, TAKE 1 TABLET BY MOUTH TWO TIMES A DAY NEEDED FOR ANXIETY, # 28 tablet, 2 Refills, Maintenance, 12/05/22 12:25:00 EDT, [facility], 155, cm, 12/05/22 11:40:00 EDT, Height, [...] Refills, Maintenance, 08/01/22 6:06:00 EST, Tablet, [facility], Partial fill upon patient request if the prescription is for a schedule II opioid drug., 155, cm,... Start Date: 08/01/22 Status: Ordered Symbicort 160mcg/4.5mcg Inhaler 2, puffs, Inhalation, 2 times a day, # 3 each, Refills 5, Tot. Refills 5, Maintenance, 09/27/22 12:00:00 EST, Aerosol, Route to Pharmacy Electronically, [id number], [facility], replaces flovent inhaler, 155, cm,... Start [...] 07/31/22 11:03:00 EST, Route to Pharmacy Electronically, [facility], Partial fill [...] Refills, Maintenance, 08/14/23 13:38:00 EST, Chew Tablet, [facility], Partial fill upon patient request if the prescription is for a schedule II opioid drug., 155, cm, 08/14/23 13:0... Start Date: 08/14/23 Status: Ordered Vitamin D3 50,000 intl units oral capsule 1 capsule = 1,250 mcg, By Mouth, Every week, # 13 capsule, 1 Refills, Maintenance, 05/17/23 17:07:00 EDT, Capsule, [facility], Partial fill [...] 0 Refills, Maintenance, 11/01/23 14:07:00 EDT, Capsule, [facility], Partial fill u... 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 Social History Social History Type Response Smoking Status Never smoker; Tobacc o user in household: No entered on: 04/11/16 Sex Patient Care team information Care Team Personnel Name: Vidhya Grace RN Position: [facility] RN Member Role: Primary Care Nurse Name: Sisi Hernandez MD Position: [facility] Physician - Primary Care Member Role: PCP Address: Address: [address] [place] [address] Name: Lizzette To RN Position: [facility] SN RN Member Role: Primary Care Nurse Name: Karolina Adkins MD Position: [facility] Physician - Primary Care Member Role: Lifetime Consulting Physician Address: Address: [address] [place] [address] Geriatric & [place] [address]- Name: Isadora Godfrey RN Position: [facility] RN Member Role: Primary Care Nurse Name: Rossy Rowe RN Position: [facility] SN RN Member Role: Primary Care Nurse Name: Cindi Hayward RN Position: [facility] RN Member Role: Primary Care Nurse Name: Bela Mcmahon RN Position: [facility] Hospital Shoemaking Cutter Member Role: Primary Care Nurse Name: Nicole Hernandez RN Position: [facility] RN Member Role: Primary Care Nurse Name: Zac Castillo RN Position: [facility] ED RN W/OE and Tasks Member Role: Primary Care Nurse Name: Jeanne Grande RN Position: [facility] RN Member Role: Primary Care Nurse Care Team Related Persons Name: BEAR TURNER Address: home [address] [place] [address] Name: BEAR TURNER SECONDARY Address: home [address] [place] [address] Name: ISATU ECKERT Address: [place] [address] Name: ISAAC VERDE PRIMARY Address: home [address] [place] [address] Name: ADRY DURANT Name: PANCHO JEROME Address: [place] [address]
--- OUTSIDE RECORDS SUMMARY | 2024-04-27 10:10 | XMS_ITS | Continuity of Care Document ---
Author Organization [facility] Address [address] [place] [address]- Care Team Providers Care Animation Director Name Role Phone Sisi Hernandez MD Primary Care Physician [phone] [place] [facility] [place]20 - 04/22/20 [facility] [address] [place] [address]- [facility] Attending Physician: Not on Staff, Attending MD [...] 8:59:00 EDT, Aerosol, Route to Pharmacy Electronically, [id number], [facility], 155, cm, 10/07/19 12:25:00 E... [...] 5 Refills, Maintenance, 03/04/20 9:53:00 EDT, Solution, [facility], 155, cm, 10/07/19 12:25:00 EDT, Height, 63, kg, 07/01/19 19:58:00 EST, Dry Weight Start Date: 03/04/20 Status: Ordered dilTIAZem 240 mg/24 hours oral tablet, extended release 1 tablet = 240 mg, By Mouth, Daily, FURTHER REFILLS BY JOB TRAINING SPECIALIST, # 90 tablet, 0 Refills, Maintenance, 11/27/19 8:57:00 EDT, ER Tablet, [facility], 155, cm, 10/07/19 12:25:00 EDT, [...] tablet, 2 Refills, Maintenance, 11/02/19 10:43:00 EDT, [facility], 155, cm, 10/07/19 12:25:00 [...] 15:30:53 EST, Aerosol, Route to Pharmacy Electronically, [id number]... Start Date: 09/12/18 Stop Date: 02/09/19 Status: [...] Near syncope(Confirmed) Active Bilateral leg pain(Confirmed) Active *BHN/CCA/CC-[facility]- [phone]/Health half-way, active care coordination(Confirmed) Active POTS (postural orthostatic t achycardia syndrome)(Confirmed) Active Medulloblastoma(Confirmed) Active RUQ pain(Confirmed) Active Social History Social History Type Response Smoking Status Never smoker; Tobacc o user in household: No entered on: 04/11/16 Sex
--- OUTSIDE RECORDS SUMMARY | 2024-04-27 10:10 | XMS_ITS | Continuity of Care Document ---
Author Organization [facility] Address [address] [place] [address]- Care Team Providers Care Filler Operator Name Role Phone Mary KEATING, Sisi Almanza Primary Care Physician Encounter [facility] [place] Date(s): 10/07/23 - 11/06/23 [facility] [address] [place], [place] [address] Allergies, Adverse Reactions, Alerts Substance Reaction Severity [...] 13:12:00 EDT, Aerosol, Route to Pharmacy Electronically, [id number], [facility], ONLY ALBUTEROL HFA, CANCEL... Start Date: 02/15/22 Stop Date: 02/10/23 Status: Ordered Colace sodium 100 mg oral capsule 100 mg, 1, capsule, By Mouth, 2 times a day, PRN, # 180 capsule, Refills 3, Tot. Refills 3, Maintenance, for constipation, 08/09/23 14:49:00 EST, Route to Pharmacy Electronically, [facility] 3, Partial fill upon patient request [...] 6 Refills, Maintenance, 08/07/23 13:45:00 EST, Solution, [facility] 3, 155, cm, 06/07/23 20:58:00 EST, Height, [...] Refills, Maintenance, 02/15/22 13:10:00 EDT, Aerosol, [facility], new dosage, 155, cm, 12/08/21 [...] 11:03:00 EST, Route to Pharmacy Electronically, [facility], Partial fill upon patient request if the prescription is for a schedule... Start Date: 07/31/22 Status: Ordered LORazepam 0.5 mg oral tablet See Instructions, TAKE 1 TABLET BY MOUTH TWO TIMES A DAY NEEDED FOR ANXIETY, # 28 tablet, 2 Refills, Maintenance, 12/05/22 12:25:00 EDT, [facility], 155, cm, 12/05/22 [...] Refills, Maintenance, 08/01/22 6:06:00 EST, Tablet, [facility], Partial fill upon patient request if the prescription is for a schedule II opioid drug., 155, cm,... Start Date: 08/01/22 Status: Ordered Symbicort 160mcg/4.5mcg Inhaler 2, puffs, Inhalation, 2 times a day, # 3 each, Refills 5, Tot. Refills 5, Maintenance, 09/27/22 12:00:00 EST, Aerosol, Route to Pharmacy Electronically, [id number], [facility], replaces flovent inhaler, 155, cm,... Start [...] 07/31/22 11:03:00 EST, Route to Pharmacy Electronically, [facility], Partial fill upon patient [...] Refills, Maintenance, 08/14/23 13:38:00 EST, Chew Tablet, [facility], Partial fill upon patient request if the prescription is for a schedule II opioid drug., 155, cm, 08/14/23 13:0... Start Date: 08/14/23 Status: Ordered Vitamin D3 50,000 intl units oral capsule 1 capsule = 1,250 mcg, By Mouth, Every week, # 13 capsule, 1 Refills, Maintenance, 05/17/23 17:07:00 EDT, Capsule, [facility], Partial fill upon patient request if the prescription is for a schedule II opioid drug., 155, cm, 05/15/23 13:... Start Date: 05/17/23 Status: Ordered Vyvanse 10 mg oral capsule See Instructions, start 1 capsule By Mouth Daily in AM. Increase to 2 capsules as needed (Name brand only because generic not available), # 60 capsule, 0 Refills, Maintenance, 11/01/23 14:07:00 EDT, Capsule, [facility], Partial fill u... Start [...] Bilateral leg pain Confirmed Active *BHN/CCA/CC-[facility]- [phone]/Health [facility], active care coordination Confirmed Active POTS (postural orthostatic tachycardia syndrome) Confirmed Active Medulloblastoma Confirmed Active RUQ pain Confirmed Active Tachy-sharmin syndrome Confirmed Active Social History Social History Type Response Smoking Status Never smoker; Tobacc o user in household: No entered on: 04/11/16 Sex Patient Care team information Care Team Personnel Name: Vidhya Grace RN Position: [facility] RN Member Role: Primary Care Nurse Name: Sisi Hernandez MD Position: [facility] Physician - Primary Care Member Role: PCP Address: Address: [address] [place] [address] Name: Lizzette To RN Position: [facility] SN RN Member Role: Primary Care Nurse Name: Karolina Adkins MD Position: [facility] Physician - Primary Care Member Role: Lifetime Consulting Physician Address: Address: [address] [place] [address] Geriatric [facility] Care [address] Name: Isadora Godfrey RN Position: [facility] RN Member Role: Primary Care Nurse Name: Rossy Rowe RN Position: [facility] SN RN Member Role: Primary Care Nurse Name: Cindi Hayward RN Position: [facility] RN Member Role: Primary Care Nurse Name: Bela Mcmahon RN Position: [facility] Hospital Casey Saw Operator Member Role: Primary Care Nurse Name: Nicole Hernandez RN Position: [facility] RN Member Role: Primary Care Nurse Name: Zac Castillo RN Position: [facility] ED RN W/OE and Tasks Member Role: Primary Care Nurse Name: Jeanne Grande RN Position: [facility] RN Member Role: Primary Care Nurse Care Team Related Persons Name: BEAR TURNER Address: home [address] [place] [address] Name: BEAR TURNER SECONDARY Address: home [address] [place] [address] Name: ISATU ECKERT Address: [place] [address] Name: ISAAC VERDE PRIMARY Address: [address] [address] Name: ADRY DURANT Name: PANCHO JEROME Address: [place] [address]
--- OUTSIDE RECORDS SUMMARY | 2024-04-27 10:10 | XMS_ITS | Continuity of Care Document ---
Author Organization [facility] Address [address] [place] [address]- Care Team Providers Care Seo Intern Name Role Phone Mary KEATING, Sisi Almanza Primary Care Physician Encounter [facility] [place] Date(s): 07/21/19 - 07/28/19 [facility] [address] [place] [address]- [facility] Attending Physician: Matt George MD Allergies, Adverse Reactions, Alerts Substance Reaction [...] 12:10:52 EDT, Aerosol, Route to Pharmacy Electronically, [id number], [facility] Start Date: 03/10/19 Stop Date: 09/06/19 Status: Ordered Compression Stockings See Instructions, # 2 units, Refills 11, Tot. Refills 11, Maintenance, KNEE HIGH COMPRESSION STOCKINGS 15-20mm HG use daily 2 pairs every 3 months Dx: POTS syndrome R00.00 HEIGHT 154CM WEIGHT 68KG LIFETIME USE, 06/05/19 16:03:58 EST, Com... Start Date: 06/05/19 Status: Ordered dicyclomine 10 mg oral capsule 1 capsule = 10 mg, By Mouth, 3 times a day, PRN intestinal spasm, # 21 capsule, 0 Refills, Maintenance, 07/21/19 13:34:00 EST, Capsule, [facility], 155, cm, 07/21/19 13:05:00 EST, Height, 63, kg, 07/01/19 19:58:00 EST, Dry Weight Start Date: 07/21/19 Stop Date: 07/28/19 Status: Ordered famotidine 40 mg oral tablet 1 tablet = 40 mg, By Mouth, Daily at bedtime, # 30 tablet, 0 Refills, Maintenance, 07/21/19 13:46:00 EST, Tablet, [facility], 155, cm, 07/21/19 13:05:00 EST, [...] 15:30:53 EST, Aerosol, Route to Pharmacy Electronically, [id number]... Start Date: 09/12/18 Stop Date: 02/09/19 Status: Ordered verapamil 120 mg oral capsule, extended release 1 capsule = 120 mg, By Mouth, Daily, # 30 capsule, 0 Refills, Maintenance, 07/21/19 13:36:00 EST, CR Capsule, [facility], lower dose for a [...] 0 Refills, Maintenance, 07/21/19 12:29:00 EST, Tablet, [facility], 155, cm, 07/21/19 11:37:00 EST, Height, [...] Effective Dates Status Health Status Inform ant Adjustment disorder with mix ed anxiety and depressed mood(Confirmed) 2015 Active Anxiety(Confirmed) Active Asthma(Confirmed) Active Back pain(Confirmed) Active Chronic insomnia(Confirmed) Active Deep vein thrombosis(Confirmed) Active Right leg DVT(Confirmed) Active GERD (gastroesophageal reflu x disease)(Confirmed) Active IBS (irritable bowel syndrome)(Confirmed) 01/23/16 Active Near syncope(Confirmed) Active *N/CCA/CC-[facility]-[phone]/Health [facility], active care coordination(Confirmed) Active [facility] Textile Conservator [phone](Confirmed) Active POTS (postural orthostatic t achycardia syndrome)(Confirmed) Active Medulloblastoma(Confirmed) Active RUQ pain(Confirmed) Active Vital Signs Most recent to oldest [Reference Range]: 1 Height 155 cm (07/21/19 1:05 PM) Weight 64.1 kg (07/21/19 1:05 PM) Oxygen Saturation [94-100 %] 99 % (07/21/19 1:05 PM) Pulse Rate [55-90 bpm] 82 bpm (07/21/19 1:05 PM) Body Mass Index [18.5-24.99] 26.68 *H* (07/21/19 1:05 PM) Blood Pressure [90-138/55-84 mm Hg] 100/ 64mm Hg (07/21/19 1:05 PM) Mode of Delivery (Oxygen) Room air (07/21/19 1:05 PM) Blood pressure sites Arm, left (07/21/19 1:05 PM) Weight Obtained Via Standing scale (07/21/19 1:05 PM) Social History Social History Type Response Smoking Status Never smoker; Tobacc o user in household: No entered on: 04/11/16 Sex
--- OUTSIDE RECORDS SUMMARY | 2024-04-27 10:10 | XMS_ITS | Continuity of Care Document ---
Author Organization [facility] Address [address] [place] [address]- Care Team Providers Care Phy Therapist Name Role Phone Sisi Hernandez MD Primary Care Physician Encounter [facility] Date(s): 11/16/21 - 12/16/21 [facility] [address] [place], [place] [address] Attending Physician: Angel Gomez Admitting Physician: AdmAngel [...] 11/16/21 23:51:00 EDT, Route to Pharmacy Electronically, [facility], Partial fill upon patient request if the presc... Start Date: 11/16/21 Status: Ordered Adderall 5 mg oral tablet 1 tablet = 5 mg, By Mouth, 2 times a day, to take with long acting, # 60 tablet, 0 Refills, Maintenance, 10/25/21 15:46:00 EDT, Tablet, [facility], Partial [...] Refills, Maintenance, 10/25/21 15:46:00 EDT, ER Capsule, [facility], Partial fill upon patient r... Start Date: 10/25/21 Status: Ordered albuterol CFC free 90 mcg/inh inhalation aerosol 2, puffs, Inhalation, Every 6 hours, PRN, # 2 each, Refills 11, Tot. Refills 11, Maintenance, 10/05/21 9:52:00 EST, Aerosol, Route to Pharmacy Electronically, [id number], [facility], ONLY ALBUTEROL HFA, CANCEL [...] 6 Refills, Maintenance, 10/03/21 12:18:00 EST, Solution, [facility], 155, cm, 09/27/21 15:08:00 EST, Height, 68.5, kg, 06/03/20 13:18:00 EST, Dry Weight Start Date: 10/03/21 Status: Ordered cyanocobalamin 1000 mcg/ml injectable solution 1 mL = 1,000 mcg, Intramuscular, Every 30 days, # 3 mL, 6 Refills, Maintenance, 06/15/20 11:56:00 EST, Solution, [facility], 155, cm, 06/03/20 13:15:00 EST, Height, 68.5, kg, 06/03/20 13:18:00 EST, Dry Weight Start Date: 06/15/20 Status: Ordered dilTIAZem 240 mg/24 hours oral tablet, extended release 1 tablet = 240 mg, By Mouth, Daily, FURTHER REFILLS BY OPHTHALMIC NURSE, # 90 tablet, 0 Refills, Maintenance, 11/27/19 8:57:00 EDT, ER Tablet, [facility], 155, cm, 10/07/19 12:25:00 EDT, Height, 63, kg, 07/01/19 19:58:00 EST, Dry Weight Start Date: 11/27/19 Status: Ordered Flovent HFA 110 mcg/inh inhalation aerosol 2 puffs, Inhalation, 2 times a day, # 12 Gm, 0 Refills, Maintenance, 10/05/21 13:23:00 EST, Aerosol, [facility], Partial [...] 11/16/21 23:51:00 EDT, Route to Pharmacy Electronically, [facility], Partial fill upon patient request if the prescription is... Start Date: 11/16/21 Status: Ordered LORazepam 0.5 mg oral tablet See Instructions, TAKE 1 TABLET BY MOUTH TWO TIMES A DAY NEEDED FOR ANXIETY, # 28 tablet, 2 Refills, Maintenance, 05/06/20 15:17:00 EDT, [facility], 155, cm, 05/03/20 18:55:00 EDT, [...] Refills, Maintenance, 11/16/21 23:51:00 EDT, DIS Tablet, [facility], Partial [...] 3 Refills, Maintenance, 10/25/21 11:13:00 EDT, Capsule, [facility], [...] Active Bilateral leg pain(Confirmed) Active *BHN/CCA/CC-Matias Vela- [phone]/Health mcfp, active care coordination(Confirmed) Active POTS (postural orthostatic t achycardia syndrome)(Confirmed) Active Medulloblastoma(Confirmed) Active RUQ pain(Confirmed) Active Social History Social History Type Response Smoking Status Never smoker; Tobacc o user in household: No entered on: 04/11/16 Sex Female
--- OUTSIDE RECORDS SUMMARY | 2024-04-27 10:10 | XMS_ITS | Continuity of Care Document ---
Author Organization [facility] Address [address] [place] [address]- Care Team Providers Care Evp General Counsel Name Role Phone Sisi Hernandez MD Primary Care Physician [phone] Encounter [facility] Date(s): 08/13/19 - 08/20/19 [facility] [address] [place] [address]- [facility] Encounter Diagnosis Breast lump(Discharge Diagnosis) - 08/13/19 POTS (postural orthostatic tachycardia syndrome)(Discharge Diagnosis) - 08/13/19 Attending Physician: Sisi Hernandez MD Allergies, Adverse [...] 12:10:52 EDT, Aerosol, Route to Pharmacy Electronically, [id number], [facility] Start Date: 03/10/19 Stop Date: 09/06/19 Status: Ordered Carafate 1 gm/10 ml oral suspension 10 mL = 1 Gm, By Mouth, 3 times a day before meals and bedtime, # 1,200 mL, 0 Refills, Maintenance,07/31/19 15:42:00 EST, [facility], CAN LET ME KNOW IF [...] 3 Refills, Maintenance, 07/31/19 15:47:00 EST, Solution, [facility], 155, cm, 07/31/19 15:01:00 EST, Height, 63, kg, 07/01/19 19:58:00 EST, Dry Weight Start Date: 07/31/19 Status: Ordered dicyclomine 10 mg oral capsule 1 capsule = 10 mg, By Mouth, 3 times a day, PRN intestinal spasm, # 21 capsule, 3 Refills, Maintenance, 07/31/19 15:42:00 EST, Capsule, [facility], 155, cm, 07/31/19 15:01:00 EST, Height, 63, kg, 07/01/19 19:58:00 EST, Dry Weight Start Date: 07/31/19 Stop Date: 08/28/19 Status: Ordered famotidine 40 mg oral tablet 1 tablet = 40 mg, By Mouth, Daily at bedtime, # 30 tablet, 0 Refills, Maintenance, 07/21/19 13:46:00 EST, Tablet, [facility], 155, cm, 07/21/19 13:05:00 EST, [...] 15:30:53 EST, Aerosol, Route to Pharmacy Electronically, [id number]... Start Date: 09/12/18 Stop Date: 02/09/19 Status: [...] Refills, Maintenance, 07/21/19 13:36:00 EST, CR Capsule, [facility], lower dose for a month, [...] 0 Refills, Maintenance, 07/21/19 12:29:00 EST, Tablet, [facility], 155, cm, 07/21/19 11:37:00 EST, Height, [...] bowel syndrome)(Confirmed) 01/23/16 Active Near syncope(Confirmed) Active *[facility]/CC-Geno Neat-[phone]/Health fci, active care coordination(Confirmed) Active Matias Vela [facility] Care [facility] Reservoir Engineering Consultant [phone](Confirmed) Active POTS (postural orthostatic t achycardia syndrome)(Confirmed) Active Medulloblastoma(Confirmed) Active RUQ pain(Confirmed) Active Diagnosis Diagnosis Type Effective Dates Health Status Clinical Service Informant Breast lump Discharge Diagnosis 08/13/19 POTS (postural orthostatic tachycardia syndrome) Discharge Diagnosis 08/13/19 Vital Signs Most recent to oldest [Reference Range]: 1 Height 155 cm (1/16/20 8:58 AM) Weight 63 kg (08/13/19 8:58 AM) Oxygen Saturation [94-100 %] 98 % (08/13/19 8:58 AM) Pulse Rate [55-90 bpm] 82 bpm (08/13/19 8:58 AM) Body Mass Index [18.5-24.99] 26.22 *H* (08/13/19 8:58 AM) Blood Pressure [90-138/55-84 mm Hg] 102/ 64mm Hg (08/13/19 8:58 AM) Respiratory Rate [16-30 br/min] 16 br/mi n (08/13/19 8:58 AM) Temperature [96.8-100.4 DegF] 97.8 DegF (08/13/19 8:58 AM) Mode of Delivery (Oxygen) Room air (08/13/19 8:58 AM) Blood pressure sites Arm, right (08/13/19 8:58 AM) Temperature Route Oral (08/13/19 8:58 AM) Weight Obtained Via Standing scale (08/13/19 8:58 AM) Social History Social History Type Response Smoking Status Never smoker; Tobacc o user in household: No entered on: 04/11/16 Sex
--- OUTSIDE RECORDS SUMMARY | 2024-04-27 10:10 | XMS_ITS | Continuity of Care Document ---
Author Organization [facility] Address [address] [place] [address]- Care Team Providers Care Commercial Credit Reviewer Name Role Phone Sisi Hernandez MD Primary Care Physician [phone] [place] [facility] [place] 10/07/19 - 10/17/19 [facility] [address] [place] [address] Attending Physician: Angel Gomez Admitting Physician: AdmtrAngel Referring Physician: AdmtrAngel Allergies, Adverse Reactions, Alerts [...] 12:10:52 EDT, Aerosol, Route to Pharmacy Electronically, [id number], [facility] Start Date: 03/10/19 Stop [...] 3 Refills, Maintenance, 07/31/19 15:47:00 EST, Solution, [facility], 155, cm, 07/31/19 15:01:00 EST, [...] 15:30:53 EST, Aerosol, Route to Pharmacy Electronically, [id number]... Start Date: 09/12/18 Stop Date: 02/09/19 Status: Ordered verapamil 120 mg oral capsule, extended release 1 capsule = 120 mg, By Mouth, Daily, # 30 capsule, 0 Refills, Maintenance, 07/21/19 13:36:00 EST, CR Capsule, [facility], lower dose for a month, 155, cm, 07/21/19 13:05:00 EST, Height,63, kg, 07/01/19 19:58:00 EST, Dry Weight Start Date: 07/21/19 Stop Date: 08/20/19 Status: Ordered Xifaxan 550 mg oral tablet 1 tablet = 550 mg, By Mouth, 3 times a day, # 42 tablet, 0 Refills, Maintenance, 07/21/19 12:29:00 EST, Tablet, [facility], 155, cm, 07/21/19 11:37:00 [...] bowel syndrome)(Confirmed) 01/23/16 Active Near syncope(Confirmed) Active *[facility]/CC-Geno Neat-[phone]/Health custodial, active care coordination(Confirmed) Active Matias Vela [facility] Care [facility] Trust Administrative Assistant [phone](Confirmed) Active POTS (postural orthostatic t achycardia syndrome)(Confirmed) Active Medulloblastoma(Confirmed) Active RUQ pain(Confirmed) Active Social History Social History Type Response Smoking Status Never smoker; Tobacc o user in household: No entered on: 04/11/16 Sex
--- OUTSIDE RECORDS SUMMARY | 2024-04-27 10:10 | XMS_ITS | Continuity of Care Document ---
Author Organization [facility] Address [address] [place] [address]- Care Team Providers Care Public Relations Supervisor Name Role Phone Sisi Hernandez MD Primary Care Physician [place] [facility] [place]s): 04/29/20 - 05/29/20 [facility] [address] [place] [address]- [facility] Attending Physician: Angel Gomez Admitting Physician: Angel Gomez Referring Physician: Angel Gomez Allergies, Adverse Reactions, Alerts Substance Reaction Severity [...] 8:59:00 EDT, Aerosol, Route to Pharmacy Electronically, [id number], [facility], 155, cm, [...] 5 Refills, Maintenance, 03/04/20 9:53:00 EDT, Solution, [facility], 155, cm, 10/07/19 12:25:00 EDT, Height, 63, kg, 07/01/19 19:58:00 EST, Dry Weight Start Date: 03/04/20 Status: Ordered dilTIAZem 240 mg/24 hours oral tablet, extended release 1 tablet = 240 mg, By Mouth, Daily, FURTHER REFILLS BY GRADES 9 THRU 12 VISITING TEACHER, # 90 tablet, 0 Refills, Maintenance, 11/27/19 8:57:00 EDT, ER Tablet, [facility], 155, cm, 10/07/19 12:25:00 [...] tablet, 2 Refills, Maintenance, 05/06/20 15:17:00 EDT, [facility], 155, cm, 05/03/20 18:55:00 EDT, Height, [...] 15:30:53 EST, Aerosol, Route to Pharmacy Electronically, [id number]... Start Date: 09/12/18 Stop Date: 02/09/19 Status: [...] Active Bilateral leg pain(Confirmed) Active *BHN/CCA/CC-Matias Vela- [phone]/Health retirement, active care coordination(Confirmed) Active POTS (postural orthostatic t achycardia syndrome)(Confirmed) Active Medulloblastoma(Confirmed) Active RUQ pain(Confirmed) Active Social History Social History Type Response Smoking Status Never smoker; Tobacc o user in household: No entered on: 04/11/16 Sex
--- OUTSIDE RECORDS SUMMARY | 2024-04-27 10:10 | XMS_ITS | Continuity of Care Document ---
Author Organization [facility] Address [address] [place] [address]- Care Team Providers Care Pinmaker Name Role Phone Sisi Hernandez MD Primary Care Physician Encounter [facility] Date(s): 02/14/21 - 03/16/[address] [address] Attending Physician: AdmAngel can Admitting Physician: Admtr ArAndrea Referring Physician: Admtr Ar8 Allergies, Adverse Reactions, [...] 8:50:00 EDT, Aerosol, Route to Pharmacy Electronically, [id number], [facility], 155, cm, 06/03/20 13:15:00 [...] 6 Refills, Maintenance, 06/15/20 11:56:00 EST, Solution, [facility], 155, cm, 06/03/20 13:15:00 EST, Height, 68.5, kg, 06/03/20 13:18:00 EST, Dry Weight Start Date: 06/15/20 Status: Ordered dilTIAZem 240 mg/24 hours oral tablet, extended release 1 tablet = 240 mg, By Mouth, Daily, FURTHER REFILLS BY SHUCKER, # 90 tablet, 0 Refills, Maintenance, 11/27/19 8:57:00 EDT, ER Tablet, [facility], 155, cm, 10/07/19 12:25:00 [...] tablet, 2 Refills, Maintenance, 05/06/20 15:17:00 EDT, [facility], 155, cm, 05/03/20 18:55:00 EDT, [...] 15:30:53 EST, Aerosol, Route to Pharmacy Electronically, [id number]... Start Date: 09/12/18 Stop Date: 02/09/19 Status: Ordered ProAir HFA 90 mcg/inh inhalation aerosol with adapter 2, puffs, Inhalation, Every 4 hours, PRN, use with spacer chamber BRAND NAME MEDICALLY NECESSARY, #8.5 Gm, Refills 0, Tot. Refills 0, Maintenance, 12/05/20 15:38:00 EDT, Aerosol, Route to Pharmacy Electronically, [id number]... Start Date: 12/05/20 Status: Ordered ramelteon 8 mg oral tablet 1 tablet = 8 mg, By Mouth, Daily at bedtime, # 30 tablet, 11 Refills, Maintenance, 12/02/20 8:48:00EDT, [facility], Partial fill upon patient [...] 2 Refills, Maintenance, 08/04/20 12:39:00 EST, Capsule, [facility], Partial fill upon patient [...] Active Bilateral leg pain(Confirmed) Active *BHN/CCA/CC-Matias Vela- [phone]/Health mcfp, active care coordination(Confirmed) Active POTS (postural orthostatic t achycardia syndrome)(Confirmed) Active Medulloblastoma(Confirmed) Active RUQ pain(Confirmed) Active Viral URI(Confirmed) Active Social History Social History Type Response Smoking Status Never smoker; Tobacc o user in household: No entered on: 04/11/16 Sex
--- OUTSIDE RECORDS SUMMARY | 2024-04-27 10:10 | XMS_ITS | Continuity of Care Document ---
Author Organization [facility] Address [address] [place] [address]- Care Team Providers Care Photographic Specialist Name Role Phone Sisi Hernandez MD Primary Care Physician Encounter [facility] Date(s): 05/03/20 - 05/04/[address] [address]- [facility] Encounter Diagnosis Tachycardia(Final) - 05/04/20 Chest pain in adult(Final) - 05/04/20 Discharge Disposition: A-D/C Home Attending Physician: Claudia Sexton MD Admitting Physician: Claudia Sexton MD Referring Physician: Not on Staff, Referring MD Allergies, Adverse Reactions, Alerts Substance Reaction [...] 8:59:00 EDT, Aerosol, Route to Pharmacy Electronically, [id number], [facility], 155, cm, 10/07/19 12:25:00 [...] 5 Refills, Maintenance, 03/04/20 9:53:00 EDT, Solution, [facility], 155, cm, 10/07/19 12:25:00 EDT, Height, 63, kg, 07/01/19 19:58:00 EST, Dry Weight Start Date: 03/04/20 Status: Ordered dilTIAZem 240 mg/24 hours oral tablet, extended release 1 tablet = 240 mg, By Mouth, Daily, FURTHER REFILLS BY RELIEF WORKER, # 90 tablet, 0 Refills, Maintenance, 11/27/19 8:57:00 EDT, ER Tablet, [facility], 155, cm, 10/07/19 12:25:00 [...] tablet, 2 Refills, Maintenance, 11/02/19 10:43:00 EDT, [facility] 3, 155, cm, 10/07/19 12:25:00 [...] 15:30:53 EST, Aerosol, Route to Pharmacy Electronically, [id number]... Start Date: 09/12/18 Stop Date: 02/09/19 Status: [...] Active Bilateral leg pain(Confirmed) Active *BHN/CCA/CC-Matias Vela- [phone]/Health chcf, active care coordination(Confirmed) Active POTS (postural orthostatic t achycardia syndrome)(Confirmed) Active Medulloblastoma(Confirmed) Active RUQ pain(Confirmed) Active Results Radiology Reports * Exam Date Time Procedure Performing Provider Status 05/03/20 10:49 PM Chest 2 Views Frontal and Lat Mine Pierson i; Modified Notes: (Chest 2 Views Frontal and Lat) Reason For Exam: Shortness of Breath, Fever;Other: RESULT: Chest 2 Views Frontal and Lat Chest 2 Views Frontal and Lat INDICATION: Chest pain and palpitations. COMPARISON: Multiple priors most recent 05/05/2019. CT chest 03/15/2018. FINDINGS: LINES AND TUBES: Dual-lead left subclavian pacer/AICD wires are intact. LUNGS AND PLEURA: Clear lungs. Normal pulmonary vascularity. No pleural effusion. Resolution of prior trace right pleural effusion. No pneumothorax. HEART, MEDIASTINUM AND KENTON: Heart is normal in size. Normal mediastinal and hilar contour. BONES AND SOFT TISSUES: No acute abnormality. IMPRESSION: No acute abnormality. I have personally reviewed the images and I agree with this report. WSN: [id number] Ordering Physician: Claudia Sexton Dictated By: Sharee Lowe MD Dictated Date/Time: 05/03/20 11:26 p Reviewed By: Jeremy Stanley MD Signed By: Jeremy Stanley MD Signed Date/Time: 05/03/20 11:31 pm Transcribed By: NIMO Transcribed Date/Time: 05/03/20 11:09 pm Vital Signs Most recent to oldest [Reference Range]: 1 2 3 Oxygen Saturation [94-100 %] 100 % (05/04/20 3:34 AM) 99 % (05/04/20 12:26 AM) 100 % (05/03/20 9:25 PM) Pulse Rate [55-90 bpm] 62 bpm (05/04/20 3:34 AM) 62 bpm (05/04/20 12:26 AM) 59 bpm (05/03/20 9:25 PM) Blood Pressure [90-138/55-84 mm Hg] 103/60mm Hg (05/04/20 3:34 AM) 105/61mm Hg (05/04/20 12:26 AM) 103/62mm Hg (05/03/20 9:25 PM) Respiratory Rate [16-30 br/min] 16 br/min (05/04/20 3:34 AM) 16 br/min (05/04/20 12:26 AM) 16 br/min (05/03/20 9:25 PM) Temperature [96.8-100.4 DegF] 97.8 DegF (05/04/20 12:26 AM) 98.1 DegF (05/03/20 9:25 PM) 98.3 DegF (05/03/20 7:54 PM) Mode of Delivery (Oxygen) Room air (05/04/20 3:34 AM) Room air (05/04/20 12:26 AM) Room air (05/03/20 9:25 PM) Blood pressure sites Arm, left (05/04/20 3:34 AM) Arm, left (05/04/20 12:26 AM) Arm, left (05/03/20 9:25 PM) Temperature Route Oral (05/04/20 12:26 AM) Oral (05/03/20 9:25 PM) Oral (05/03/20 7:54 PM) Social History Social History Type Response Smoking Status Never smoker; Tobacc o user in household: No entered on: 04/11/16 Sex
--- OUTSIDE RECORDS SUMMARY | 2024-04-27 10:10 | XMS_ITS | Continuity of Care Document ---
Author Organization [facility] Address [address] [place] [address]- Care Team Providers Care Public Health Training Assistant Name Role Phone Sisi Hernandez MD Primary Care Physician Encounter [facility] Date(s): 03/23/21 - 04/28/[address] [address] Attending Physician: Sisi Hernandez MD Admitting Physician: Sisi Hernandez MD Allergies, Adverse Reactions, [...] 8:50:00 EDT, Aerosol, Route to Pharmacy Electronically, [id number], [facility], 155, cm, 06/03/20 13:15:00 [...] 6 Refills, Maintenance, 06/15/20 11:56:00 EST, Solution, [facility], 155, cm, 06/03/20 13:15:00 EST, Height, 68.5, kg, 06/03/20 13:18:00 EST, Dry Weight Start Date: 06/15/20 Status: Ordered dilTIAZem 240 mg/24 hours oral tablet, extended release 1 tablet = 240 mg, By Mouth, Daily, FURTHER REFILLS BY LEAD NETWORK ARCHITECT, # 90 tablet, 0 Refills, Maintenance, 11/27/19 8:57:00 EDT, ER Tablet, [facility], 155, cm, 10/07/19 12:25:00 [...] tablet, 2 Refills, Maintenance, 05/06/20 15:17:00 EDT, [facility] 3, 155, cm, 05/03/20 18:55:00 [...] 15:30:53 EST, Aerosol, Route to Pharmacy Electronically, [id number]... Start Date: 09/12/18 Stop Date: 02/09/19 Status: Ordered ProAir HFA 90 mcg/inh inhalation aerosol with adapter 2, puffs, Inhalation, Every 4 hours, PRN, use with spacer chamber BRAND NAME MEDICALLY NECESSARY, #8.5 Gm, Refills 0, Tot. Refills 0, Maintenance, 12/05/20 15:38:00 EDT, Aerosol, Route to Pharmacy Electronically, [id number]... Start Date: 12/05/20 Status: Ordered syringe and [...] 2 Refills, Maintenance, 08/04/20 12:39:00 EST, Capsule, [facility], Partial fill upon patient [...] Active Bilateral leg pain(Confirmed) Active *BHN/CCA/CC-Matias Vela- [phone]/Health fdc, active care coordination(Confirmed) Active POTS (postural orthostatic t achycardia syndrome)(Confirmed) Active Medulloblastoma(Confirmed) Active RUQ pain(Confirmed) Active Viral URI(Confirmed) Active Social History Social History Type Response Smoking Status Never smoker; Tobacc o user in household: No entered on: 04/11/16 Sex
--- OUTSIDE RECORDS SUMMARY | 2024-04-27 10:10 | XMS_ITS | Continuity of Care Document ---
Author Organization [facility] Address [address] [place] [address]- Care Team Providers Care Pulp Tester Name Role Phone Sisi Hernandez MD Primary Care Physician Encounter [facility] Date(s): 06/25/23 - 07/02/23 [facility] [address], [place] [address] Attending Physician: Not on Staff, Attending [...] Refills, Maintenance, 12/21/22 14:40:00 EDT, ER Capsule, [facility], Partial fill upon patient request if the prescription is for a schedule II opioid drug., 155, cm, 12/05/22 11:... Start Date: 12/21/22 Status: Ordered albuterol CFC free 90 mcg/inh inhalation aerosol 2, puffs, Inhalation, Every 6 hours, PRN, # 2 each, Refills 11, Tot. Refills 11, Maintenance, 02/15/22 13:12:00 EDT, Aerosol, Route to Pharmacy Electronically, [id number], [facility], ONLY ALBUTEROL HFA, CANCEL... Start Date: 02/15/22 Stop Date: 02/10/23 Status: Ordered Colace sodium 100 mg oral capsule 100 mg, 1, capsule, By Mouth, 2 times a day, PRN, # 30 capsule, Refills 0, Tot. Refills 0, Maintenance, for constipation, 07/31/22 11:03:00 EST, Route to Pharmacy Electronically, [facility], Partial fill upon patient [...] 6 Refills, Maintenance, 09/04/22 8:50:00 EST, Solution, [facility], 155, cm, 08/14/22 13:52:00 [...] 0 Refills, Maintenance, 02/15/22 13:10:00 EDT, Aerosol, [facility], new dosage, 155, cm, [...] 07/31/22 11:03:00 EST, Route to Pharmacy Electronically, [facility], Partial fill upon patient request if the prescription is for a schedule... Start Date: 07/31/22 Status: Ordered LORazepam 0.5 mg oral tablet See Instructions, TAKE 1 TABLET BY MOUTH TWO TIMES A DAY NEEDED FOR ANXIETY, # 28 tablet, 2 Refills, Maintenance, 12/05/22 12:25:00 EDT, [facility], 155, cm, 12/05/22 11:40:00 [...] 0 Refills, Maintenance, 08/01/22 6:06:00 EST, Tablet, [facility], Partial fill upon patient request if the prescription is for a schedule II opioid drug., 155, cm,... Start Date: 08/01/22 Status: Ordered Symbicort 160mcg/4.5mcg Inhaler 2, puffs, Inhalation, 2 times a day, # 3 each, Refills 5, Tot. Refills 5, Maintenance, 09/27/22 12:00:00 EST, Aerosol, Route to Pharmacy Electronically, [id number], [facility], replaces flovent inhaler, 155, cm,... [...] 07/31/22 11:03:00 EST, Route to Pharmacy Electronically, [facility], Partial fill upon patient request if the prescription is... Start Date: 07/31/22 Status: Ordered verapamil 240 mg/12 hours oral tablet, extended release TAKE 1 TABLET BY MOUTH DAILY. Start Date: 02/05/23 Status: Ordered Vitamin D3 50,000 intl units oral capsule 1 capsule = 1,250 mcg, By Mouth, Every week, # 13 capsule, 1 Refills, Maintenance, 05/17/23 17:07:00 EDT, Capsule, [facility], Partial fill upon patient [...] Bilateral leg pain Confirmed Active *[facility]/CCA/CC-Matias Vela- [phone]/Health residential, active care coordination Confirmed Active POTS (postural [...] Primary Care Member Role: PCP Address: Address: [address] [place] [address] - [place] Name: Lizzette To RN Position: [facility] SN RN Member Role: Primary Care Nurse Name: Karolina Adkins MD Position: [facility] Physician - Primary Care Member Role: Lifetime Consulting Physician Address: Address: [address] [place] [address] [facility] [place] - Name: Isadora Gofdrey RN Position: [facility] RN Member Role: Primary Care Nurse Name: Rossy Rowe RN Position: [facility] SN RN Member Role: Primary Care Nurse Name: Cindi Hayward RN Position: [facility] RN Member Role: Primary Care Nurse Name: Bela Mcmahon RN Position: [facility] Hospital Sales And Marketing Manager Member Role: Primary Care Nurse Name: Nicole Hernandez RN Position: [facility] RN Member Role: Primary Care Nurse Name: Zac Castillo RN Position: [facility] ED RN W/OE and Tasks Member Role: Primary Care Nurse Name: Jeanne Grande RN Position: [facility] RN Member Role: Primary Care Nurse Care Team Related Persons Name: TURNERBEAR Address: home [address] [place] [address] Name: BEAR TURNER SECONDARY Address: home [address] [place] [address] Name: ISATU ECKERT Address: [place] [address] Name: ISAAC VERDE PRIMARY Address: home [address] [place] [address] Name: ADRY DURANT Name: PANCHO JEROME Address: [place] [address]
--- OUTSIDE RECORDS SUMMARY | 2024-04-27 10:11 | XMS_ITS | Continuity of Care Document ---
Author Organization [facility] Address [address] [place] [address]- Care Team Providers Care Medical Physics Professor Name Role Phone Sisi Hernandez MD Primary Care Physician Encounter [facility] [place] Date(s): 08/13/19 - 08/23/19 [facility] [address] [place] [address]- [facility] Attending Physician: Admjuan josé, Angel Admitting Physician: AdmtrAngel Referring Physician: Admtr, Ramesh8 Allergies, Adverse Reactions, Alerts Substance Reaction Severity [...] 12:10:52 EDT, Aerosol, Route to Pharmacy Electronically, [id number], [facility] Start Date: 03/10/19 Stop Date: 09/06/19 Status: Ordered Carafate 1 gm/10 ml oral suspension 10 mL = 1 Gm, By Mouth, 3 times a day before meals and bedtime, # 1,200 mL, 0 Refills, Maintenance,07/31/19 15:42:00 EST, [facility], CAN LET ME KNOW IF NOT [...] 3 Refills, Maintenance, 07/31/19 15:47:00 EST, Solution, [facility], 155, cm, 07/31/19 15:01:00 EST, Height, 63, kg, 07/01/19 19:58:00 EST, Dry Weight Start Date: 07/31/19 Status: Ordered dicyclomine 10 mg oral capsule 1 capsule = 10 mg, By Mouth, 3 times a day, PRN intestinal spasm, # 21 capsule, 3 Refills, Maintenance, 07/31/19 15:42:00 EST, Capsule, [facility], 155, cm, 07/31/19 15:01:00 EST, Height, 63, kg, 07/01/19 19:58:00 EST, Dry Weight Start Date: 07/31/19 Stop Date: 08/28/19 Status: Ordered famotidine 40 mg oral tablet 1 tablet = 40 mg, By Mouth, Daily at bedtime, # 30 tablet, 0 Refills, Maintenance, 07/21/19 13:46:00 EST, Tablet, [facility], 155, cm, 07/21/19 13:05:00 EST, [...] 15:30:53 EST, Aerosol, Route to Pharmacy Electronically, [id number]... Start Date: 09/12/18 Stop Date: 02/09/19 Status: [...] Refills, Maintenance, 07/21/19 13:36:00 EST, CR Capsule, [facility], lower dose for a [...] 0 Refills, Maintenance, 07/21/19 12:29:00 EST, Tablet, [facility], 155, cm, 07/21/19 11:37:00 EST, Height, [...] bowel syndrome)(Confirmed) 01/23/16 Active Near syncope(Confirmed) Active *[facility]-[phone]/Health senior care, active care coordination(Confirmed) Active Matias Vela [facility] Cnc Technician [phone](Confirmed) Active POTS (postural orthostatic t achycardia syndrome)(Confirmed) Active Medulloblastoma(Confirmed) Active RUQ pain(Confirmed) Active Social History Social History Type Response Smoking Status Never smoker; Tobacc o user in household: No entered on: 04/11/16 Sex
--- OUTSIDE RECORDS SUMMARY | 2024-04-27 10:11 | XMS_ITS | Continuity of Care Document ---
Author Organization [facility] Address [address] [place] [address]- Care Team Providers Care Reel Cart Operator Name Role Phone Sisi Hernandez MD Primary Care Physician [place] [facility] [place]s): 12/06/20 - 02/05/[address] [address] Attending Physician: Not on Staff, Attending MD [...] 8:50:00 EDT, Aerosol, Route to Pharmacy Electronically, [id number], [facility], 155, cm, 11/06/20 13:15:00 E... Start Date: 12/02/20 Stop Date: [...] 6 Refills, Maintenance, 06/15/20 11:56:00 EST, Solution, [facility], 155, cm, 06/03/20 13:15:00 EST, Height, 68.5, kg, 06/03/20 13:18:00 EST, Dry Weight Start Date: 06/15/20 Status: Ordered dilTIAZem 240 mg/24 hours oral tablet, extended release 1 tablet = 240 mg, By Mouth, Daily, FURTHER REFILLS BY WATER TAXI BOAT MATE, # 90 tablet, 0 Refills, Maintenance, 11/27/19 8:57:00 EDT, ER Tablet, [facility], 155, cm, 10/07/19 [...] tablet, 2 Refills, Maintenance, 05/06/20 15:17:00 EDT, [facility], 155, cm, [...] 15:30:53 EST, Aerosol, Route to Pharmacy Electronically, [id number]... Start Date: 09/12/18 Stop Date: 02/09/19 Status: Ordered ProAir HFA 90 mcg/inh inhalation aerosol with adapter 2, puffs, Inhalation, Every 4 hours, PRN, use with spacer chamber BRAND NAME MEDICALLY NECESSARY, #8.5 Gm, Refills 0, Tot. Refills 0, Maintenance, 12/05/20 15:38:00 EDT, Aerosol, Route to Pharmacy Electronically, [id number]... Start Date: 12/05/20 Status: Ordered ramelteon 8 mg oral tablet 1 tablet = 8 mg, By Mouth, Daily at bedtime, # 30 tablet, 11 Refills, Maintenance, 12/02/20 8:48:00EDT, [facility], Partial fill upon [...] 2 Refills, Maintenance, 08/04/20 12:39:00 EST, Capsule, [facility], Partial fill upon [...] Active Bilateral leg pain(Confirmed) Active *[facility]/CCA/CC-Matias Vela- [phone]/Health long-term, active care coordination(Confirmed) Active POTS (postural orthostatic t achycardia syndrome)(Confirmed) Active Medulloblastoma(Confirmed) Active RUQ pain(Confirmed) Active Viral URI(Confirmed) Active Social History Social History Type Response Smoking Status Never smoker; Tobacc o user in household: No entered on: 04/11/16 Sex
--- OUTSIDE RECORDS SUMMARY | 2024-04-27 10:11 | XMS_ITS | Continuity of Care Document ---
Author Organization [facility] Address [address] [place] [address]- Care Team Providers Care Assistant Professor Of Archaeology Name Role Phone Sisi Hernandez MD Primary Care Physician [phone] [id number] Date[facility] 09[facility]15[facility] - 10/21/[address] [address] Attending Physician: Sisi Hernandez MD Admitting Physician: Sisi Hernandez MD Referring Physician: Jorge Sparks Allergies, Adverse Reactions, Alerts Substance Reaction Severity [...] 0 Refills, Maintenance, 09/27/21 15:38:00 EST, Tablet, [facility], Partial fill upon [...] Refills, Maintenance, 09/27/21 15:31:00 EST, ER Capsule, [facility], Partial fill upon patient r... Start Date: 09/27/21 Status: Ordered albuterol CFC free 90 mcg/inh inhalation aerosol 2, puffs, Inhalation, Every 6 hours, PRN, # 2 each, Refills 11, Tot. Refills 11, Maintenance, 10/05/21 9:52:00 EST, Aerosol, Route to Pharmacy Electronically, [id number], [facility], ONLY ALBUTEROL HFA, CANCEL V... Start [...] 6 Refills, Maintenance, 10/03/21 12:18:00 EST, Solution, [facility], 155, cm, 09/27/21 15:08:00 EST, Height, 68.5, kg, 06/03/20 13:18:00 EST, Dry Weight Start Date: 10/03/21 Status: Ordered cyanocobalamin 1000 mcg/ml injectable solution 1 mL = 1,000 mcg, Intramuscular, Every 30 days, # 3 mL, 6 Refills, Maintenance, 06/15/20 11:56:00 EST, Solution, [facility], 155, cm, 06/03/20 13:15:00 EST, Height, 68.5, kg, 06/03/20 13:18:00 EST, Dry Weight Start Date: 06/15/20 Status: Ordered Diflucan 150 mg oral tablet 1 tablet = 150 mg, By Mouth, Every 48 hours, # 2 tablet, 0 Refills, Soft Stop, 07/31/21 10:46:00 EST, Tablet, [facility], Partial fill upon patient request if the prescription is for a schedule II opioid drug., 155, cm, 06/09/21 14:21:00... Start Date: 07/31/21 Status: Ordered dilTIAZem 240 mg/24 hours oral tablet, extended release 1 tablet = 240 mg, By Mouth, Daily, FURTHER REFILLS BY COOK MORNING, # 90 tablet, 0 Refills, Maintenance, 11/27/19 8:57:00 EDT, ER Tablet, [facility], 155, cm, 10/07/19 12:25:00 EDT, Height, 63, kg, 07/01/19 19:58:00 EST, Dry Weight Start Date: 11/27/19 Status: Ordered Flovent HFA 110 mcg/inh inhalation aerosol 2 puffs, Inhalation, 2 times a day, # 12 Gm, 0 Refills, Maintenance, 10/05/21 13:23:00 EST, Aerosol, [facility], Partial fill upon [...] tablet, 2 Refills, Maintenance, 05/06/20 15:17:00 EDT, [facility], 155, cm, 05/03/20 [...] 2 Refills, Maintenance, 08/04/20 12:39:00 EST, Capsule, [facility], Partial fill upon [...] Active Bilateral leg pain(Confirmed) Active *[facility]/CC-[facility]- [phone]/Health jail, active care coordination(Confirmed) Active POTS (postural orthostatic t achycardia syndrome)(Confirmed) Active Medulloblastoma(Confirmed) Active RUQ pain(Confirmed) Active Social History Social History Type Response Smoking Status Never smoker; Tobacc o user in household: No entered on: 04/11/16 Sex Female
--- OUTSIDE RECORDS SUMMARY | 2024-04-27 10:11 | XMS_ITS | Continuity of Care Document ---
Author Organization [facility] Address [address] [place] [address]- Care Team Providers Care Director Of Tax Services Name Role Phone Sisi Hernandez MD Primary Care Physician Encounter [facility] Date(s): 12/21/20 - 01/20/[address] [address] Allergies, Adverse Reactions, Alerts [...] 12/22/20 12:53:00 EDT, Route to Pharmacy Electronically, [facility] Tablet, Partial fill upon patient request if the... Start Date: 12/22/20 Stop Date: 01/21/21 Status: Ordered albuterol CFC free 90 mcg/inh inhalation aerosol 2, puffs, Inhalation, Every 6 hours, PRN, # 2 each, Refills 11, Tot. Refills 11, Maintenance, 12/02/20 8:50:00 EDT, Aerosol, Route to Pharmacy Electronically, [id number], [facility], 155, cm, 06/03/20 13:15:00 [...] 6 Refills, Maintenance, 06/15/20 11:56:00 EST, Solution, [facility], 155, cm, 06/03/20 13:15:00 EST, Height, 68.5, kg, 06/03/20 13:18:00 EST, Dry Weight Start Date: 06/15/20 Status: Ordered dilTIAZem 240 mg/24 hours oral tablet, extended release 1 tablet = 240 mg, By Mouth, Daily, FURTHER REFILLS BY INSTRUCTIONAL SERVICES LIBRARIAN, # 90 tablet, 0 Refills, Maintenance, 11/27/19 8:57:00 EDT, ER Tablet, [facility], 155, cm, 10/07/19 12:25:00 [...] tablet, 2 Refills, Maintenance, 05/06/20 15:17:00 EDT, [facility], 155, cm, 05/03/20 18:55:00 EDT, Height, [...] 15:30:53 EST, Aerosol, Route to Pharmacy Electronically, [id number]... Start Date: 09/12/18 Stop Date: 02/09/19 Status: Ordered ProAir HFA 90 mcg/inh inhalation aerosol with adapter 2, puffs, Inhalation, Every 4 hours, PRN, use with spacer chamber BRAND NAME MEDICALLY NECESSARY, #8.5 Gm, Refills 0, Tot. Refills 0, Maintenance, 12/05/20 15:38:00 EDT, Aerosol, Route to Pharmacy Electronically, [id number]... Start Date: 12/05/20 Status: Ordered ramelteon 8 mg oral tablet 1 tablet = 8 mg, By Mouth, Daily at bedtime, # 30 tablet, 11 Refills, Maintenance, 12/02/20 8:48:00EDT, [facility], Partial fill upon patient [...] 2 Refills, Maintenance, 08/04/20 12:39:00 EST, Capsule, [facility], Partial fill upon patient [...] Active Bilateral leg pain(Confirmed) Active *[facility]/CC-Matias Vela- [phone]/Health custodial, active care coordination(Confirmed) Active POTS (postural orthostatic t achycardia syndrome)(Confirmed) Active Medulloblastoma(Confirmed) Active RUQ pain(Confirmed) Active Viral URI(Confirmed) Active Social History Social History Type Response Smoking Status Never smoker; Tobacc o user in household: No entered on: 04/11/16 Sex
--- OUTSIDE RECORDS SUMMARY | 2024-04-27 10:11 | XMS_ITS | Continuity of Care Document ---
Author Organization [facility] Address [address] [place] [address]- Care Team Providers Care Roller Coaster Operator Name Role Phone Sisi Hernandez MD Primary Care Physician [phone] Encounter [facility] [place] Date(s): 07/21/19 - 07/21/19 [facility] [address] [place] [address]- [facility] Attending Physician: Matt George MD Allergies, Adverse [...] 12:10:52 EDT, Aerosol, Route to Pharmacy Electronically, [id number], [facility] Start Date: 03/10/19 Stop Date: 2/9/20 Status: Ordered Compression Stockings See Instructions, # [...] 0 Refills, Maintenance, 07/21/19 13:34:00 EST, Capsule, [facility], 155, cm, 07/21/19 13:05:00 EST, Height, 63, kg, 07/01/19 19:58:00 EST, Dry Weight Start Date: 07/21/19 Stop Date: 07/28/19 Status: Ordered famotidine 40 mg oral tablet 1 tablet = 40 mg, By Mouth, Daily at bedtime, # 30 tablet, 0 Refills, Maintenance, 07/21/19 13:46:00 EST, Tablet, [facility], 155, cm, 07/21/19 13:05:00 [...] 15:30:53 EST, Aerosol, Route to Pharmacy Electronically, [id number]... Start Date: 09/12/18 Stop Date: 02/09/19 Status: Ordered verapamil 120 mg oral capsule, extended release 1 capsule = 120 mg, By Mouth, Daily, # 30 capsule, 0 Refills, Maintenance, 07/21/19 13:36:00 EST, CR Capsule, [facility], lower dose for a [...] 0 Refills, Maintenance, 07/21/19 12:29:00 EST, Tablet, [facility], 155, cm, 07/21/19 11:37:00 [...] bowel syndrome)(Confirmed) 01/23/16 Active Near syncope(Confirmed) Active *[facility] [place]-[phone]/Health assisted, active care coordination(Confirmed) Active Matias Vela [facility] Pediatric Orthodontist [phone](Confirmed) Active POTS (postural orthostatic t achycardia syndrome)(Confirmed) Active Medulloblastoma(Confirmed) Active RUQ pain(Confirmed) Active Social History Social History Type Response Smoking Status Never smoker; Tobacc o user in household: No entered on: 04/11/16 Sex
--- OUTSIDE RECORDS SUMMARY | 2024-04-27 10:11 | XMS_ITS | Continuity of Care Document ---
Author Organization [facility] Address [address] [place] [address]- Care Team Providers Care Speech Lang Path Name Role Phone Mary KEATING, Sisi Almanza Primary Care Physician [place] [facility] [place] Date(s): 01/13/24 - 02/12/24 [facility] [address], [place] [address] Allergies, Adverse Reactions, Alerts Substance [...] 13:12:00 EDT, Aerosol, Route to Pharmacy Electronically, [id number], [facility], ONLY ALBUTEROL HFA, CANCEL... Start Date: 02/15/22 Stop Date: 02/10/23 Status: Ordered Colace sodium 100 mg oral capsule 100 mg, 1, capsule, By Mouth, 2 times a day, PRN, # 180 capsule, Refills 3, Tot. Refills 3, Maintenance, for constipation, 08/09/23 14:49:00 EST, Route to Pharmacy Electronically, [facility], Partial fill upon patient [...] 11 Refills, Maintenance, 02/06/24 12:13:00 EDT, Solution, [facility], dose change, 155, cm, [...] 07/31/22 11:03:00 EST, Route to Pharmacy Electronically, [facility], Partial fill upon patient request if the prescription is for a schedule... Start Date: 07/31/22 Status: Ordered ketoconazole 1% topical shampoo See Instructions, Apply 5 to 10 mL to wet scalp, lather, leave on 3 to 5 minutes, and rinse; apply twice weekly for 2 to 4 weeks., # 200 mL, 5 Refills, Maintenance, 11/22/23 15:46:00 EDT, [facility], Partial fill upon patient request if... Start Date: 11/22/23 Status: Ordered ketoconazole 2% topical shampoo 1 application, Topically, Once, Apply 5 to 10 mL to wet scalp, lather, leave on 3 to 5 minutes, andrinse; apply weekly for 2 to 4 weeks., # 120 mL, 4 Refills, Soft Stop, 11/25/23 12:40:00 EDT, Shampoo, [facility], Partial fill upon pat... Start Date: 11/25/23 Status: Ordered LORazepam 0.5 mg oral tablet See Instructions, TAKE 1 TABLET BY MOUTH TWO TIMES A DAY NEEDED FOR ANXIETY, # 28 tablet, 2 Refills, Maintenance, 02/06/24 12:19:00 EDT, [facility], 155, cm, 02/06/24 11:49:00 [...] 0 Refills, Maintenance, 08/01/22 6:06:00 EST, Tablet, [facility], Partial fill upon patient request if the prescription is for a schedule II opioid drug., 155, cm,... Start Date: 08/01/22 Status: Ordered Symbicort 160mcg/4.5mcg Inhaler 2, puffs, Inhalation, 2 times a day, # 3 each, Refills 5, Tot. Refills 5, Maintenance, 02/06/24 12:14:00 EDT, Aerosol, Route to Pharmacy Electronically, [id number], [facility], replaces flovent inhaler, 155, cm,... [...] 07/31/22 11:03:00 EST, Route to Pharmacy Electronically, [facility], Partial fill upon patient [...] Refills, Maintenance, 08/14/23 13:38:00 EST, Chew Tablet, [facility], Partial fill upon patient request if the prescription is for a schedule II opioid drug., 155, cm, 08/14/23 13:0... Start Date: 08/14/23 Status: Ordered Vitamin D3 50,000 intl units oral capsule 1 capsule = 1,250 mcg, By Mouth, Every week, # 13 capsule, 1 Refills, Maintenance, 05/17/23 17:07:00 EDT, Capsule, [facility], Partial fill upon patient [...] 0 Refills, Maintenance, 11/01/23 14:07:00 EDT, Capsule, [facility], Partial fill u... Start [...] Confirmed 01/23/16 Active Memory change Confirmed Active *N/CCA/CC-[facility]- [phone]/Health half-way, active care coordination Confirmed Active POTS (postural orthostatic tachycardia syndrome) Confirmed Active 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 Social History Social History Type Response Smoking Status Never smoker; Tobacc o user in household: No entered on: 04/11/16 Sex Patient Care team information Care Team Personnel Name: Vidhya Grace RN Position: [facility] RN Member Role: Primary Care Nurse Name: Sisi Hernandez MD Position: [facility] Physician - Primary Care Member Role: PCP Address: Address: [address] [place] [address] Name: Lizzette To RN Position: [facility] RN Member Role: Primary Care Nurse Name: Karolina Adkins MD Position: [facility] Physician - Primary Care Member Role: Lifetime Consulting Physician Address: Address: [address] [place] [address] [facility] [address] Name: Isadora Godfrey RN Position: [facility] RN Member Role: Primary Care Nurse Name: Rossy Rowe RN Position: [facility] SN RN Member Role: Primary Care Nurse Name: Cindi Hayward RN Position: [facility] RN Member Role: Primary Care Nurse Name: Bela Mcmahon RN Position: [facility] Hospital Dredge Mate Member Role: Primary Care Nurse Name: Nicole Hernandez RN Position: [facility] RN Member Role: Primary Care Nurse Name: Zac Castillo RN Position: [facility] ED RN W/OE and Tasks Member Role: Primary Care Nurse Name: Jeanne Grande RN Position: [facility] RN Member Role: Primary Care Nurse Care Team Related Persons Name: JOHNNYBEAR Address: home [address] [place] [id number] Name: BEAR TURNER SECONDARY Address: home [address] [place] [address] Name: ISATU ECKERT Address: [place] [address] Name: ISAAC VERDE PRIMARY Address: [address] [address] Name: ADRY DURANT Name: PANCHO JEROME Address: [place] [address]
--- OUTSIDE RECORDS SUMMARY | 2024-04-27 10:11 | XMS_ITS | Continuity of Care Document ---
Author Organization [facility] Address [address] [place] [address]- Care Team Providers Care Tow Motor Driver Name Role Phone Sisi Hernandez MD Primary Care Physician Encounter [facility] [place] Date(s): 10/25/21 - 11/01/21 [facility] [address] [place], [place] [address] Encounter Diagnosis Asthma(Discharge Diagnosis) - 10/25/21 Narcolepsy and cataplexy(Discharge Diagnosis) - 10/25/21 Anxiety(Discharge Diagnosis) - 10/25/21 Bilateral leg pain(Discharge Diagnosis) - 10/25/21 Attending Physician: Sisi Hernandez MD Allergies, Adverse [...] 0 Refills, Maintenance, 10/25/21 15:46:00 EDT, Tablet, [facility], Partial [...] Refills, Maintenance, 10/25/21 15:46:00 EDT, ER Capsule, [facility], Partial fill upon patient r... Start Date: 10/25/21 Status: Ordered albuterol CFC free 90 mcg/inh inhalation aerosol 2, puffs, Inhalation, Every 6 hours, PRN, # 2 each, Refills 11, Tot. Refills 11, Maintenance, 10/05/21 9:52:00 EST, Aerosol, Route to Pharmacy Electronically, [id number], [facility], ONLY ALBUTEROL HFA, CANCEL [...] 6 Refills, Maintenance, 10/03/21 12:18:00 EST, Solution, [facility], 155, cm, 09/27/21 15:08:00 EST, Height, 68.5, kg, 06/03/20 13:18:00 EST, Dry Weight Start Date: 10/03/21 Status: Ordered cyanocobalamin 1000 mcg/ml injectable solution 1 mL = 1,000 mcg, Intramuscular, Every 30 days, # 3 mL, 6 Refills, Maintenance, 06/15/20 11:56:00 EST, Solution, [facility], 155, cm, 06/03/20 13:15:00 EST, Height, 68.5, kg, 06/03/20 13:18:00 EST, Dry Weight Start Date: 06/15/20 Status: Ordered dilTIAZem 240 mg/24 hours oral tablet, extended release 1 tablet = 240 mg, By Mouth, Daily, FURTHER REFILLS BY RESEARCH SCHOLAR, # 90 tablet, 0 Refills, Maintenance, 11/27/19 8:57:00 EDT, ER Tablet, [facility], 155, cm, 10/07/19 12:25:00 EDT, Height, 63, kg, 07/01/19 19:58:00 EST, Dry Weight Start Date: 11/27/19 Status: Ordered Flovent HFA 110 mcg/inh inhalation aerosol 2 puffs, Inhalation, 2 times a day, # 12 Gm, 0 Refills, Maintenance, 10/05/21 13:23:00 EST, Aerosol, [facility], Partial fill upon patient request [...] tablet, 2 Refills, Maintenance, 05/06/20 15:17:00 EDT, [facility], 155, cm, [...] 3 Refills, Maintenance, 10/25/21 11:13:00 EDT, Capsule, [facility], Partial [...] Active Bilateral leg pain(Confirmed) Active *BHN/CCA/CC-[facility]- [phone]/Health nursing home, active care coordination(Confirmed) Active POTS (postural orthostatic t achycardia syndrome)(Confirmed) Active Medulloblastoma(Confirmed) Active RUQ pain(Confirmed) Active Diagnosis Diagnosis Type Effective Dates Health Status Clinical Service Informant Asthma Discharge Diagnosis 10/25/21 Narcolepsy and cataplexy Discharge Diagnosis 10/25/21 Anxiety Discharge Diagnosis 10/25/21 Bilateral leg pain Discharge Diagnosis 10/25/21 Vital Signs Most recent to oldest [Reference Range]: 1 Height 155 cm (10/25/21 11:00 AM) Weight 67 kg (10/25/21 11:00 AM) Oxygen Saturation [94-100 %] 98 % (10/25/21 11:00 AM) Pulse Rate [55-90 bpm] 116 bpm *H* (10/25/21 11:00 AM) Body Mass Index [18.5-24.99] 27.89 *H* (10/25/21 11:00 AM) Blood Pressure [90-138/55-84 mm Hg] 118/ 62mm Hg (10/25/21 11:00 AM) Respiratory Rate [16-30 br/min] 18 br/mi n (10/25/21 11:00 AM) Temperature [96.8-100.4 DegF] 98.6 DegF (10/25/21 11:00 AM) Mode of Delivery (Oxygen) Room air (10/25/21 11:00 AM) Blood pressure sites Arm, left (10/25/21 11:00 AM) Temperature Route Temporal (10/25/21 11:00 AM) Weight Obtained Via Standing scale (10/25/21 11:00 AM) Social History Social History Type Response Smoking Status Never smoker; Tobacc o user in household: No entered on: 04/11/16 Sex Female
--- OUTSIDE RECORDS SUMMARY | 2024-04-27 10:11 | XMS_ITS | Continuity of Care Document ---
Author Organization [facility] Address [address] [place] [address]- Care Team Providers Care Change Coordinator Name Role Phone Sisi Hernandez MD Primary Care Physician [place] [facility] [place] 01/[place]/21 [facility] [address] [place], [place] [address] Allergies, Adverse Reactions, Alerts Substance Reaction [...] 12/22/20 12:53:00 EDT, Route to Pharmacy Electronically, [facility] 3 Tablet, Partial fill upon patient request if the... Start Date: 12/22/20 Stop Date: 01/21/21 Status: Ordered albuterol CFC free 90 mcg/inh inhalation aerosol 2, puffs, Inhalation, Every 6 hours, PRN, # 2 each, Refills 11, Tot. Refills 11, Maintenance, 12/02/20 8:50:00 EDT, Aerosol, Route to Pharmacy Electronically, [id number], [facility], 155, cm, 06/03/20 13:15:00 E... [...] 6 Refills, Maintenance, 06/15/20 11:56:00 EST, Solution, [facility], 155, cm, 06/03/20 13:15:00 EST, Height, 68.5, kg, 06/03/20 13:18:00 EST, Dry Weight Start Date: 06/15/20 Status: Ordered dilTIAZem 240 mg/24 hours oral tablet, extended release 1 tablet = 240 mg, By Mouth, Daily, FURTHER REFILLS BY CLOTH CALENDER, # 90 tablet, 0 Refills, Maintenance, 11/27/19 8:57:00 EDT, ER Tablet, [facility], 155, cm, 10/07/19 12:25:00 EDT, Height, [...] tablet, 2 Refills, Maintenance, 05/06/20 15:17:00 EDT, [facility], 155, cm, 05/03/20 18:55:00 [...] 15:30:53 EST, Aerosol, Route to Pharmacy Electronically, [id number]... Start Date: 09/12/18 Stop Date: 02/09/19 Status: Ordered ProAir HFA 90 mcg/inh inhalation aerosol with adapter 2, puffs, Inhalation, Every 4 hours, PRN, use with spacer chamber BRAND NAME MEDICALLY NECESSARY, #8.5 Gm, Refills 0, Tot. Refills 0, Maintenance, 12/05/20 15:38:00 EDT, Aerosol, Route to Pharmacy Electronically, [id number]... Start Date: 12/05/20 Status: Ordered ramelteon 8 mg oral tablet 1 tablet = 8 mg, By Mouth, Daily at bedtime, # 30 tablet, 11 Refills, Maintenance, 12/02/20 8:48:00EDT, [facility], Partial [...] 2 Refills, Maintenance, 08/04/20 12:39:00 EST, Capsule, [facility] [...] syncope(Confirmed) Active Bilateral leg pain(Confirmed) Active *BHN/CCA/CC-[facility]- [phone]/Health fdc, active care coordination(Confirmed) Active POTS (postural orthostatic t achycardia syndrome)(Confirmed) Active Medulloblastoma(Confirmed) Active RUQ pain(Confirmed) Active Viral URI(Confirmed) Active Social History Social History Type Response Smoking Status Never smoker; Tobacc o user in household: No entered on: 04/11/16 Sex
--- OUTSIDE RECORDS SUMMARY | 2024-04-27 10:11 | XMS_ITS | Continuity of Care Document ---
Author Organization [facility] Address [address] [place] [address]- Care Team Providers Care Loan Auditor Name Role Phone Sisi Hernandez MD Primary Care Physician [phone] Encounter [facility] [place] Date(s): 12/05/20 - 01/04/21 [facility] [address] [place], [place] [address] Allergies, Adverse Reactions, Alerts Substance [...] 12/22/20 12:53:00 EDT, Route to Pharmacy Electronically, [facility] 3 Tablet, Partial fill upon patient request if the... Start Date: 12/22/20 Stop Date: 01/21/21 Status: Ordered albuterol CFC free 90 mcg/inh inhalation aerosol 2, puffs, Inhalation, Every 6 hours, PRN, # 2 each, Refills 11, Tot. Refills 11, Maintenance, 12/02/20 8:50:00 EDT, Aerosol, Route to Pharmacy Electronically, [id number], [facility], 155, cm, [...] 6 Refills, Maintenance, 06/15/20 11:56:00 EST, Solution, [facility], 155, cm, 06/03/20 13:15:00 EST, Height, 68.5, kg, 06/03/20 13:18:00 EST, Dry Weight Start Date: 06/15/20 Status: Ordered dilTIAZem 240 mg/24 hours oral tablet, extended release 1 tablet = 240 mg, By Mouth, Daily, FURTHER REFILLS BY MAINFRAME ANALYST, # 90 tablet, 0 Refills, Maintenance, 11/27/19 8:57:00 EDT, ER Tablet, [facility], 155, cm, 10/07/19 12:25:00 EDT, [...] 05/06/20 15:17:00 EDT, [facility], 155, cm, 05/03/20 [...] 15:30:53 EST, Aerosol, Route to Pharmacy Electronically, [id number]... Start Date: 09/12/18 Stop Date: 02/09/19 Status: Ordered ProAir HFA 90 mcg/inh inhalation aerosol with adapter 2, puffs, Inhalation, Every 4 hours, PRN, use with spacer chamber BRAND NAME MEDICALLY NECESSARY, #8.5 Gm, Refills 0, Tot. Refills 0, Maintenance, 12/05/20 15:38:00 EDT, Aerosol, Route to Pharmacy Electronically, [id number]... Start Date: 12/05/20 Status: Ordered ramelteon 8 mg oral tablet 1 tablet = 8 mg, By Mouth, Daily at bedtime, # 30 tablet, 11 Refills, Maintenance, 12/02/20 8:48:00EDT, [facility], Partial fill [...] syncope(Confirmed) Active Bilateral leg pain(Confirmed) Active *BHN/CCA/CC-[facility] [place]- [phone]/Health retirement, active care coordination(Confirmed) Active POTS (postural orthostatic t achycardia syndrome)(Confirmed) Active Medulloblastoma(Confirmed) Active RUQ pain(Confirmed) Active Viral URI(Confirmed) Active Social History Social History Type Response Smoking Status Never smoker; Tobacc o user in household: No entered on: 04/11/16 Sex
--- OUTSIDE RECORDS SUMMARY | 2024-04-27 10:11 | XMS_ITS | Continuity of Care Document ---
Author Organization [facility] Address [address] [place] [address]- Care Team Providers Care Auto Transmission Specialist Name Role Phone Sisi Hernandez MD Primary Care Physician [phone] [place] [facility] [place]20 [facility] [address] [place], [place] [address] Allergies, Adverse Reactions, Alerts Substance [...] 12/22/20 12:53:00 EDT, Route to Pharmacy Electronically, [facility] 3 Tablet, Partial fill upon patient request if the... Start Date: 12/22/20 Stop Date: 01/21/21 Status: Ordered albuterol CFC free 90 mcg/inh inhalation aerosol 2, puffs, Inhalation, Every 6 hours, PRN, # 2 each, Refills 11, Tot. Refills 11, Maintenance, 12/02/20 8:50:00 EDT, Aerosol, Route to Pharmacy Electronically, [id number], [facility], 155, cm, 06/03/20 13:15:00 [...] 6 Refills, Maintenance, 06/15/20 11:56:00 EST, Solution, [facility], 155, cm, 06/03/20 13:15:00 EST, Height, 68.5, kg, 06/03/20 13:18:00 EST, Dry Weight Start Date: 06/15/20 Status: Ordered dilTIAZem 240 mg/24 hours oral tablet, extended release 1 tablet = 240 mg, By Mouth, Daily, FURTHER REFILLS BY REAL ESTATE PORTFOLIO MANAGER, # 90 tablet, 0 Refills, Maintenance, 11/27/19 8:57:00 EDT, ER Tablet, [facility], 155, cm, 10/07/19 12:25:00 EDT, [...] tablet, 2 Refills, Maintenance, 05/06/20 15:17:00 EDT, [facility], 155, cm, 05/03/20 18:55:00 EDT, Height, [...] 15:30:53 EST, Aerosol, Route to Pharmacy Electronically, [id number]... Start Date: 09/12/18 Stop Date: 02/09/19 Status: Ordered ProAir HFA 90 mcg/inh inhalation aerosol with adapter 2, puffs, Inhalation, Every 4 hours, PRN, use with spacer chamber BRAND NAME MEDICALLY NECESSARY, #8.5 Gm, Refills 0, Tot. Refills 0, Maintenance, 12/05/20 15:38:00 EDT, Aerosol, Route to Pharmacy Electronically, [id number]... Start Date: 12/05/20 Status: Ordered ramelteon 8 mg oral tablet 1 tablet = 8 mg, By Mouth, Daily at bedtime, # 30 tablet, 11 Refills, Maintenance, 12/02/20 8:48:00EDT, [facility], Partial fill upon patient [...] 2 Refills, Maintenance, 08/04/20 12:39:00 EST, Capsule, [facility], Partial fill upon patient [...] Active Bilateral leg pain(Confirmed) Active *BHN/CCA/CC-[facility]- [phone]/Health long term, active care coordination(Confirmed) Active POTS (postural orthostatic t achycardia syndrome)(Confirmed) Active Medulloblastoma(Confirmed) Active RUQ pain(Confirmed) Active Viral URI(Confirmed) Active Social History Social History Type Response Smoking Status Never smoker; Tobacc o user in household: No entered on: 04/11/16 Sex
--- OUTSIDE RECORDS SUMMARY | 2024-04-27 10:11 | XMS_ITS | Continuity of Care Document ---
Author Organization [facility] Address [address] [place] [address]- Care Team Providers Care Environmental Solutions Engineer Name Role Phone Sisi Hernandez MD Primary Care Physician Encounter [facility] [place] Date(s): 06/24/20 - 07/24/20 [facility] [address] [place], [place] [address] Allergies, Adverse Reactions, Alerts Substance Reaction Severity [...] 8:59:00 EDT, Aerosol, Route to Pharmacy Electronically, [id number], [facility], 155, cm, 10/07/19 [...] 6 Refills, Maintenance, 06/15/20 11:56:00 EST, Solution, [facility], 155, cm, 06/03/20 13:15:00 EST, Height, 68.5, kg, 06/03/20 13:18:00 EST, Dry Weight Start Date: 06/15/20 Status: Ordered dilTIAZem 240 mg/24 hours oral tablet, extended release 1 tablet = 240 mg, By Mouth, Daily, FURTHER REFILLS BY RETURNING OFFICER, # 90 tablet, 0 Refills, Maintenance, 11/27/19 8:57:00 EDT, ER Tablet, [facility], 155, cm, 10/07/19 [...] tablet, 2 Refills, Maintenance, 05/06/20 15:17:00 EDT, [facility], 155, cm, 05/03/20 18:55:00 EDT, Height, [...] 15:30:53 EST, Aerosol, Route to Pharmacy Electronically, [id number]... Start Date: 09/12/18 Stop Date: 02/09/19 Status: [...] Active Bilateral leg pain(Confirmed) Active *BHN/CCA/CC-[facility]- [phone]/Health intermediate, active care coordination(Confirmed) Active POTS (postural orthostatic t achycardia syndrome)(Confirmed) Active Medulloblastoma(Confirmed) Active RUQ pain(Confirmed) Active Viral URI(Confirmed) Active Social History Social History Type Response Smoking Status Never smoker; Tobacc o user in household: No entered on: 04/11/16 Sex
--- OUTSIDE RECORDS SUMMARY | 2024-04-27 10:11 | XMS_ITS | Continuity of Care Document ---
Author Organization [facility] Address [address] [place] [address]- Care Team Providers Care Loan Review Manager Name Role Phone Sisi Hernandez MD Primary Care Physician [place] [facility] [place](s): 11/19/20 - 12/25/[address] [address] Attending Physician: Jonathan Parker MD Admitting Physician: Jonathan Parker MD Referring Physician: Jonathan Parker MD Allergies, Adverse Reactions, Alerts Substance Reaction [...] 8:50:00 EDT, Aerosol, Route to Pharmacy Electronically, [id number], [facility], 155, cm, 06/03/20 [...] 6 Refills, Maintenance, 06/15/20 11:56:00 EST, Solution, [facility], 155, cm, 06/03/20 13:15:00 EST, Height, 68.5, kg, 06/03/20 13:18:00 EST, Dry Weight Start Date: 06/15/20 Status: Ordered dilTIAZem 240 mg/24 hours oral tablet, extended release 1 tablet = 240 mg, By Mouth, Daily, FURTHER REFILLS BY HYDROGEN POWER PLANT MANAGER, # 90 tablet, 0 Refills, Maintenance, 11/27/19 8:57:00 EDT, ER Tablet, [facility], 155, cm, 10/07/19 12:25:00 EDT, Height, [...] 15:30:53 EST, Aerosol, Route to Pharmacy Electronically, [id number]... Start Date: 09/12/18 Stop Date: 02/09/19 Status: Ordered ProAir HFA 90 mcg/inh inhalation aerosol with adapter 2, puffs, Inhalation, Every 4 hours, PRN, use with spacer chamber BRAND NAME MEDICALLY NECESSARY, #8.5 Gm, Refills 0, Tot. Refills 0, Maintenance, 12/05/20 15:38:00 EDT, Aerosol, Route to Pharmacy Electronically, [id number]... Start Date: 12/05/20 Status: Ordered ramelteon 8 [...] Near syncope(Confirmed) Active Bilateral leg pain(Confirmed) Active *BHN/CCA/CC-[facility]- [phone]/Health detention, active care coordination(Confirmed) Active POTS (postural orthostatic t achycardia syndrome)(Confirmed) Active Medulloblastoma(Confirmed) Active RUQ pain(Confirmed) Active Viral URI(Confirmed) Active Social History Social History Type Response Smoking Status Never smoker; Tobacc o user in household: No entered on: 04/11/16 Sex
--- OUTSIDE RECORDS SUMMARY | 2024-04-27 10:11 | XMS_ITS | Continuity of Care Document ---
Author Organization [facility] Address [address] [place] [address]- Care Team Providers Care Pockets And Pieces Necktie Operator Name Role Phone Mary KEATING, Sisi Almanza Primary Care Physician [phone] [place] [facility] [place] [facility] [place]19[place]22 - 09/18/22 [facility] [address] [place], [place] [address] Allergies, Adverse Reactions, Alerts Substance [...] 13:12:00 EDT, Aerosol, Route to Pharmacy Electronically, [id number], [facility], ONLY ALBUTEROL HFA, CANCEL... Start Date: 02/15/22 Stop Date: 02/10/23 Status: Ordered Colace sodium 100 mg oral capsule 100 mg, 1, capsule, By Mouth, 2 times a day, PRN, # 30 capsule, Refills 0, Tot. Refills 0, Maintenance, for constipation, 07/31/22 11:03:00 EST, Route to Pharmacy Electronically, [facility], Partial fill upon patient request [...] 6 Refills, Maintenance, 09/04/22 8:50:00 EST, Solution, [facility], 155, cm, 08/14/22 13:52:00 [...] 0 Refills, Maintenance, 02/15/22 13:10:00 EDT, Aerosol, [facility], new dosage, 155, cm, [...] 07/31/22 11:03:00 EST, Route to Pharmacy Electronically, [facility], Partial fill upon patient request if the prescription is for a schedule... Start Date: 07/31/22 Status: Ordered LORazepam 0.5 mg oral tablet See Instructions, TAKE 1 TABLET BY MOUTH TWO TIMES A DAY NEEDED FOR ANXIETY, # 28 tablet, 2 Refills, Maintenance, 06/06/22 10:45:00 EST, [facility], 155, cm, 04/06/22 [...] Refills, Maintenance, 08/01/22 6:06:00 EST, REC Powder, [facility] 3, Partial fill upon patient request [...] Maintenance, 08/01/22 6:06:00 EST, Tablet, [facility] 3, Partial fill upon patient request if the prescription is for a schedule II opioid drug., 155, cm,... Start Date: 08/01/22 Status: Ordered simethicone 80 mg oral tablet, chewable 80 mg, 1, tablet, Chew, 4 times a day, # 12 tablet, Refills 0, Tot. Refills 0, Maintenance, 07/31/22 11:03:00 EST, Route to Pharmacy Electronically, [facility], Partial fill upon patient request [...] 07/31/22 11:03:00 EST, Route to Pharmacy Electronically, [facility], Partial fill upon [...] 3 Refills, Maintenance, 06/05/22 14:27:00 EST, Capsule, [facility], Partial [...] Bilateral leg pain Confirmed Active *BHN/CCA/CC-[facility]- [phone]/[facility], active care coordination Confirmed Active POTS (postural orthostatic tachycardia syndrome) Confirmed Active Medulloblastoma Confirmed Active RUQ pain Confirmed Active Social History Social History Type Response Smoking Status Never smoker; Tobacc o user in household: No entered on: 04/11/16 Sex Female Patient Care team information Care Team Personnel Name: Vidhya Grace RN Position: [facility] RN Member Role: Primary Care Nurse Name: Sisi Hernandez MD Position: [facility] Primary Care Physician Member Role: PCP Address: Address: [address] [place] [address] - Name: Lizzette To RN Position: [facility] RN Member Role: Primary Care Nurse Name: Karolina Adkins MD Position: [facility] Physician -Physician Practices Member Role: Lifetime Consulting Physician Address: Address: [address] [place] [address] [facility] [place], [place] [facility] Name: Isadora Godfrey RN Position: [facility] RN Member Role: Primary Care Nurse Name: Rossy Rowe RN Position: [facility] RN Member Role: Primary Care Nurse Name: Cindi Hayward Position: [facility] RN Member Role: Primary Care Nurse Name: Bela Mcmahon RN Position: [facility] Hospital Human Service Specialist Member Role: Primary Care Nurse Name: Nicole Hernandez RN Position: [facility] RN Member Role: Primary Care Nurse Name: Zac Castillo RN Position: [facility] ED RN W/OE and Tasks Member Role: Primary Care Nurse Name: Jeanne Grande RN Position: [facility] RN Member Role: Primary Care Nurse Care Team Related Persons Name: BEAR TURNER Address: home [address] [place] [address] Name: BEAR TURNER SECONDARY Address: home [address] [place] [address] Name: ISATU ECKERT Address: [place] [address] Name: ISAAC VERDE PRIMARY Address: home [address] [place] [address] Name: ADRY DURANT Name: PANCHO JEROME Address: [place] [address]
--- OUTSIDE RECORDS SUMMARY | 2024-04-27 10:11 | XMS_ITS | Continuity of Care Document ---
Author Organization [facility] Address [address] [place] [address]- Care Team Providers Care Environmental Services Floor Tech Name Role Phone Sisi Hernandez MD Primary Care Physician [place] [facility] [place] 11/12/23 - 12/12/23 [facility] [address] [place], [place] [address] Allergies, Adverse Reactions, Alerts [...] 13:12:00 EDT, Aerosol, Route to Pharmacy Electronically, [id number], [facility], ONLY ALBUTEROL HFA, CANCEL... Start Date: 02/15/22 Stop Date: 02/10/23 Status: Ordered Colace sodium 100 mg oral capsule 100 mg, 1, capsule, By Mouth, 2 times a day, PRN, # 180 capsule, Refills 3, Tot. Refills 3, Maintenance, for constipation, 08/09/23 14:49:00 EST, Route to Pharmacy Electronically, [facility] [...] 2 Refills, Maintenance, 11/22/23 15:23:00 EDT, Solution, [facility], dose change, 155, cm, 11/22/23 [...] 0 Refills, Maintenance, 02/15/22 13:10:00 EDT, Aerosol, [facility], new dosage, 155, cm, 12/08/21 [...] 07/31/22 11:03:00 EST, Route to Pharmacy Electronically, [facility] [...] mL, 5 Refills, Maintenance, 11/22/23 15:46:00 EDT, [facility], Partial fill upon patient request if... Start Date: 11/22/23 Status: Ordered ketoconazole 2% topical shampoo 1 application, Topically, Once, Apply 5 to 10 mL to wet scalp, lather, leave on 3 to 5 minutes, andrinse; apply weekly for 2 to 4 weeks., # 120 mL, 4 Refills, Soft Stop, 11/25/23 12:40:00 EDT, Shampoo, [facility], Partial fill upon pat... Start Date: 11/25/23 Status: Ordered LORazepam 0.5 mg oral tablet See Instructions, TAKE 1 TABLET BY MOUTH TWO TIMES A DAY NEEDED FOR ANXIETY, # 28 tablet, 2 Refills, Maintenance, 12/05/22 12:25:00 EDT, [facility], 155, cm, 12/05/22 11:40:00 [...] 0 Refills, Maintenance, 08/01/22 6:06:00 EST, [facility] fill upon patient request if the prescription is for a schedule II opioid drug., 155, cm,... Start Date: 08/01/22 Status: Ordered Symbicort 160mcg/4.5mcg Inhaler 2, puffs, Inhalation, 2 times a day, # 3 each, Refills 5, Tot. Refills 5, Maintenance, 09/27/22 12:00:00 EST, Aerosol, Route to Pharmacy Electronically, [id number], [facility], replaces flovent inhaler, 155, cm,... Start [...] 07/31/22 11:03:00 EST, Route to Pharmacy Electronically, [facility] [...] Refills, Maintenance, 08/14/23 13:38:00 EST, Chew Tablet, [facility], Partial fill upon patient request if the prescription is for a schedule II opioid drug., 155, cm, 08/14/23 13:0... Start Date: 08/14/23 Status: Ordered Vitamin D3 50,000 intl units oral capsule 1 capsule = 1,250 mcg, By Mouth, Every week, # 13 capsule, 1 Refills, Maintenance, 05/17/23 17:07:00 EDT, Capsule, [facility] [...] 0 Refills, Maintenance, 11/01/23 14:07:00 EDT, Capsule, [facility], Partial fill u... Start Date: [...] Active Memory change Confirmed Active *BHN/CCA/CC-[facility]- [phone]/Health [facility], active care coordination Confirmed Active POTS (postural orthostatic tachycardia syndrome) Confirmed Active 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 Social History Social History Type Response Smoking Status Never smoker; Tobacc o user in household: No entered on: 04/11/16 Sex Patient Care team information Care Team Personnel Name: Vidhya Grace RN Position: [facility] RN Member Role: Primary Care Nurse Name: Sisi Hernandez MD Position: [facility] Physician - Primary Care Member Role: PCP Address: Address: [address] [place] [address]- Name: Lizzette To RN Position: [facility] RN Member Role: Primary Care Nurse Name: Karolina Adkins MD Position: [facility] Physician - Primary Care Member Role: Lifetime Consulting Physician Address: Address: [address] [place] [address] & Palliative Care [place], [place] [address] Name: Isadora Godfrey RN Position: [facility] RN Member Role: Primary Care Nurse Name: Rossy Rowe RN Position: [facility] SN RN Member Role: Primary Care Nurse Name: Cindi Hayward RN Position: [facility] RN Member Role: Primary Care Nurse Name: Bela Mcmahon RN Position: [facility] Hospital Power Systems Engineer Member Role: Primary Care Nurse Name: Nicole Hernandez RN Position: [facility] RN Member Role: Primary Care Nurse Name: Zac Castillo RN Position: [facility] ED RN W/OE and Tasks Member Role: Primary Care Nurse Name: Harjinder MONTELONGO, Jeanne Baker Position: [facility] RN Member Role: Primary Care Nurse Care Team Related Persons Name: BEAR TURNER Address: home [address] [place] [address] Name: BEAR TURNER SECONDARY Address: [address] [address] Name: ISATU ECKERT Address: [place] [address] Name: ISAAC VERDE PRIMARY Address: [address] [address] Name: ADRY DURANT Name: PANCHO JEROME Address: [place] [address]
--- OUTSIDE RECORDS SUMMARY | 2024-04-27 10:11 | XMS_ITS | Continuity of Care Document ---
Author Organization [facility] Address [address] [place] [address]- Care Team Providers Care Director Medical Affairs Name Role Phone Mary KEATING, Sisi Almanza Primary Care Physician [phone] Encounter [facility] [place] Date(s): 10/18/23 - 11/17/23 [facility] [address] [place], [place] [address] Allergies, Adverse Reactions, Alerts Substance [...] 13:12:00 EDT, Aerosol, Route to Pharmacy Electronically, [id number], [facility], ONLY ALBUTEROL HFA, CANCEL... Start Date: 02/15/22 Stop Date: 02/10/23 Status: Ordered Colace sodium 100 mg oral capsule 100 mg, 1, capsule, By Mouth, 2 times a day, PRN, # 180 capsule, Refills 3, Tot. Refills 3, Maintenance, for constipation, 08/09/23 14:49:00 EST, Route to Pharmacy Electronically, [facility], Partial fill upon [...] 6 Refills, Maintenance, 08/07/23 13:45:00 EST, Solution, [facility], 155, cm, 06/07/23 20:58:00 EST, Height, [...] Refills, Maintenance, 02/15/22 13:10:00 EDT, Aerosol, [facility], new dosage, 155, cm, [...] 07/31/22 11:03:00 EST, Route to Pharmacy Electronically, [facility], Partial fill upon [...] 0 Refills, Maintenance, 08/01/22 6:06:00 EST, Tablet, [facility], Partial fill upon patient request if the prescription is for a schedule II opioid drug., 155, cm,... Start Date: 08/01/22 Status: Ordered Symbicort 160mcg/4.5mcg Inhaler 2, puffs, Inhalation, 2 times a day, # 3 each, Refills 5, Tot. Refills 5, Maintenance, 09/27/22 12:00:00 EST, Aerosol, Route to Pharmacy Electronically, [id number], [facility], replaces flovent inhaler, 155, cm,... Start [...] 07/31/22 11:03:00 EST, Route to Pharmacy Electronically, [facility], Partial fill upon patient request [...] Refills, Maintenance, 08/14/23 13:38:00 EST, Chew Tablet, [facility], Partial fill upon patient request if the prescription is for a schedule II opioid drug., 155, cm, 08/14/23 13:0... Start Date: 08/14/23 Status: Ordered Vitamin D3 50,000 intl units oral capsule 1 capsule = 1,250 mcg, By Mouth, Every week, # 13 capsule, 1 Refills, Maintenance, 05/17/23 17:07:00 EDT, Capsule, [facility], Partial fill upon patient request if the prescription is for a schedule II opioid drug., 155, cm, 05/15/23 13:... Start Date: 05/17/23 Status: Ordered Vyvanse 10 mg oral capsule See Instructions, start 1 capsule By Mouth Daily in AM. Increase to 2 capsules as needed (Name brand only because generic not available), # 60 capsule, 0 Refills, Maintenance, 11/01/23 14:07:00 EDT, Capsule, [facility], Partial fill u... Start Date: [...] Bilateral leg pain Confirmed Active *BHN/CCA/CC-[facility]- [phone]/Health skilled nursing, active care coordination Confirmed Active POTS (postural orthostatic tachycardia syndrome) Confirmed Active Medulloblastoma Confirmed Active RUQ pain Confirmed Active Tachy-sharmin syndrome Confirmed Active Social History Social History Type Response Smoking Status Never smoker; Tobacc o user in household: No entered on: 04/11/16 Sex Patient Care team information Care Team Personnel Name: Vidhya Grace RN Position: [facility] RN Member Role: Primary Care Nurse Name: Sisi Hernandez MD Position: [facility] Physician - Primary Care Member Role: PCP Address: Address: [address] [place] [address] Name: Lizzette To RN Position: [facility] SN RN Member Role: Primary Care Nurse Name: Karolina Adkins MD Position: [facility] Physician - Primary Care Member Role: Lifetime Consulting Physician Address: Address: [address] [place] [address] [facility] Pall[facility] Care [address] Name: Isadora Godfrey RN Position: [facility] RN Member Role: Primary Care Nurse Name: Rossy Rowe RN Position: [facility] SN RN Member Role: Primary Care Nurse Name: Cindi Hayward RN Position: [facility] RN Member Role: Primary Care Nurse Name: Bela Mcmahon RN Position: [facility] Hospital Business Intelligence Architect Member Role: Primary Care Nurse Name: Nicole Hernandez RN Position: [facility] RN Member Role: Primary Care Nurse Name: Zac Castillo RN Position: [facility] ED RN W/OE and Tasks Member Role: Primary Care Nurse Name: Jeanne Grande RN Position: [facility] RN Member Role: Primary Care Nurse Care Team Related Persons Name: BEAR TURNER Address: [address] [place] [address] Name: BEAR TURNER SECONDARY Address: home [address] [place], [place] Name: ISATU ECKERT Address: [place] [address] Name: ISAAC VERDE PRIMARY Address: [address] Name: ADRY DURANT Name: PANCHO JEROME Address: [place] [address]
--- OUTSIDE RECORDS SUMMARY | 2024-04-27 10:11 | XMS_ITS | Continuity of Care Document ---
Author Organization [facility] Address [address] [place] [address]- Care Team Providers Care Hoop Maker Helper Machine Name Role Phone Sisi Hernandez MD Primary Care Physician [phone] [place] [facility] [place]): 02/27/24 - 03/28/24 [facility] [address] [place] [address]- [place] Allergies, Adverse Reactions, Alerts Substance Reaction Severity Status vancomycin Throat itching Itching of skin Active Sertraline Hydrochloride skin burning burning Active cefoxitin Cough Tightness in throat Active Fruit [...] 13:12:00 EDT, Aerosol, Route to Pharmacy Electronically, [id number], [facility], ONLY ALBUTEROL HFA, CANCEL... Start Date: 02/15/22 Stop Date: 02/10/23 Status: Ordered Colace sodium 100 mg oral capsule 100 mg, 1, capsule, By Mouth, 2 times a day, PRN, # 180 capsule, Refills 3, Tot. Refills 3, Maintenance, for constipation, 08/09/23 14:49:00 EST, Route to Pharmacy Electronically, [facility], Partial fill upon patient [...] 11 Refills, Maintenance, 02/06/24 12:13:00 EDT, Solution, [facility], dose change, 155, cm, 02/06/24 11:49:00 EDT, Height, 71, kg, 02/06/24 11:49:00 EDT, Dry Weight Start Date: 02/06/24 Status: Ordered esomeprazole 40 mg oral enteric coated capsule TAKE 1 CAPSULE BY MOUTH EVERY DAY Start Date: 12/15/22 Status: Ordered Freestyle Lancets See Instructions, # [...] 07/31/22 11:03:00 EST, Route to Pharmacy Electronically, [facility], Partial fill upon patient request if the prescription is for a schedule... Start Date: 07/31/22 Status: Ordered ketoconazole 1% topical shampoo See Instructions, Apply 5 to 10 mL to wet scalp, lather, leave on 3 to 5 minutes, and rinse; apply twice weekly for 2 to 4 weeks., # 200 mL, 5 Refills, Maintenance, 11/22/23 15:46:00 EDT, [facility], Partial fill upon patient request if... Start Date: 11/22/23 Status: Ordered ketoconazole 2% topical shampoo 1 application, Topically, Once, Apply 5 to 10 mL to wet scalp, lather, leave on 3 to 5 minutes, andrinse; apply weekly for 2 to 4 weeks., # 120 mL, 4 Refills, Soft Stop, 11/25/23 12:40:00 EDT, Etta, [facility], Partial fill upon pat... Start Date: 11/25/23 Status: Ordered LORazepam 0.5 mg oral tablet See Instructions, TAKE 1 TABLET BY MOUTH TWO TIMES A DAY NEEDED FOR ANXIETY, # 28 tablet, 2 Refills, Maintenance, 02/06/24 12:19:00 EDT, [facility] 3, 155, cm, 02/06/24 11:49:00 EDT, Height, [...] Refills, Maintenance, 08/01/22 6:06:00 EST, Tablet, [facility] 3, Partial fill upon patient request if the prescription is for a schedule II opioid drug., 155, cm,... Start Date: 08/01/22 Status: Ordered Symbicort 160mcg/4.5mcg Inhaler 2, puffs, Inhalation, 2 times a day, # 3 each, Refills 5, Tot. Refills 5, Maintenance, 02/06/24 12:14:00 EDT, Aerosol, Route to Pharmacy Electronically, [id number], [facility], replaces flovent inhaler, 155, cm,... [...] 11:03:00 EST, Route to Pharmacy Electronically, [facility], Partial fill upon patient [...] Refills, Maintenance, 08/14/23 13:38:00 EST, Chew Tablet, [facility], Partial fill upon patient request if the prescription is for a schedule II opioid drug., 155, cm, 08/14/23 13:0... Start Date: 08/14/23 Status: Ordered Vitamin D3 50,000 intl units oral capsule 1 capsule = 1,250 mcg, By Mouth, Every week, # 13 capsule, 1 Refills, Maintenance, 05/17/23 17:07:00 EDT, Capsule, [facility], Partial fill upon patient request [...] 0 Refills, Maintenance, 11/01/23 14:07:00 EDT, Capsule, [facility], Partial fill u... 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 Social History Social History Type Response Smoking Status Never smoker; Tobacc o user in household: No entered on: 04/11/16 Sex Patient Care team information Care Team Personnel Name: Vidhya Grace RN Position: [facility] RN Member Role: Primary Care Nurse Name: Sisi Hernandez MD Position: [facility] Physician - Primary Care Member Role: PCP Address: Address: [address] [place] [address] Name: Lizzette To RN Position: [facility] SN RN Member Role: Primary Care Nurse Name: Karolina Adkins MD Position: [facility] Physician - Primary Care Member Role: Lifetime Consulting Physician Address: Address: [address] [place] [address] [facility] [address] Name: Isadora Godfrey RN Position: S RN Member Role: Primary Care Nurse Name: Rossy Rowe RN Position: [facility] SN RN Member Role: Primary Care Nurse Name: Cindi Hayward RN Position: [facility] RN Member Role: Primary Care Nurse Name: Bela Mcmahon RN Position: [facility] Hospital Mercury Recoverer Member Role: Primary Care Nurse Name: Nicole Hernandez RN Position: [facility] RN Member Role: Primary Care Nurse Name: Zac Castillo RN Position: [facility] ED RN W/OE and Tasks Member Role: Primary Care Nurse Name: Jeanne Grande RN Position: [facility] RN Member Role: Primary Care Nurse Care Team Related Persons Name: BEAR TURNER Address: home [address] [place] [address] Name: BEAR TURNER SECONDARY Address: home [address] [place] [address] Name: ISATU ECKERT Address: [place] [address] Name: ISAAC VERDE PRIMARY Address: [address] [address] Name: ADRY DURANT Name: PANCHO JEROME Address: [place] [address]
--- OUTSIDE RECORDS SUMMARY | 2024-04-27 10:11 | XMS_ITS | Continuity of Care Document ---
Author Organization [facility] Address [address] [place] [address]- Care Team Providers Care Electrical Engineering Technologist Name Role Phone Sisi Hernandez MD Primary Care Physician Encounter [facility] [place] Date(s): 07/13/21 - 09/14/21 [facility] [address] [place], [place] [address] Attending Physician: Not on Staff, Attending MD [...] 0 Refills, Maintenance, 08/24/21 13:15:00 EST, Tablet, [facility] Start Date: 08/24/21 Status: Ordered Adderall XR 15 mg oral capsule, extended release 1 capsule = 15 mg, By Mouth, 2 times a day, Change from 10 mg XR and increase to 2 times per day. To take with short acting 5 mg, # 60 capsule, 0 Refills, Maintenance, 08/24/21 13:13:00 EST, ER Capsule, [facility], Partial fill upon leonardo... Start Date: 08/24/21 Status: Ordered albuterol CFC free 90 mcg/inh inhalation aerosol 2, puffs, Inhalation, Every 6 hours, PRN, # 2 each, Refills 11, Tot. Refills 11, Maintenance, 12/02/20 8:50:00 EDT, Aerosol, Route to Pharmacy Electronically, [id number], [facility], 155, cm, 06/03/20 13:15:00 [...] 6 Refills, Maintenance, 06/15/20 11:56:00 EST, Solution, [facility], 155, cm, 06/03/20 13:15:00 EST, Height, 68.5, kg, 06/03/20 13:18:00 EST, Dry Weight Start Date: 06/15/20 Status: Ordered Diflucan 150 mg oral tablet 1 tablet = 150 mg, By Mouth, Every 48 hours, # 2 tablet, 0 Refills, Soft Stop, 07/31/21 10:46:00 EST, Tablet, [facility], Partial fill upon patient request if the prescription is for a schedule II opioid drug., 155, cm, 06/09/21 14:21:00... Start Date: 07/31/21 Status: Ordered dilTIAZem 240 mg/24 hours oral tablet, extended release 1 tablet = 240 mg, By Mouth, Daily, FURTHER REFILLS BY PRODUCTION TEAM MEMBER, # 90 tablet, 0 Refills, Maintenance, 11/27/19 8:57:00 EDT, ER Tablet, [facility], 155, cm, 10/07/19 12:25:00 [...] tablet, 2 Refills, Maintenance, 05/06/20 15:17:00 EDT, [facility], 155, cm, 05/03/20 [...] 15:30:53 EST, Aerosol, Route to Pharmacy Electronically, [id number]... Start Date: 09/12/18 Stop Date: 02/09/19 Status: Ordered ProAir HFA 90 mcg/inh inhalation aerosol with adapter 2, puffs, Inhalation, Every 4 hours, PRN, use with spacer chamber BRAND NAME MEDICALLY NECESSARY, #8.5 Gm, Refills 0, Tot. Refills 0, Maintenance, 12/05/20 15:38:00 EDT, Aerosol, Route to Pharmacy Electronically, [id number]... Start Date: 12/05/20 Status: Ordered Sunosi 75 [...] 2 Refills, Maintenance, 08/04/20 12:39:00 EST, Capsule, [facility], Partial fill upon patient [...] bowel syndrome)(Confirmed) 01/23/16 Active Memory change(Confirmed) Active Narcolepsy(Confirmed) Active Near syncope(Confirmed) Active Bilateral leg pain(Confirmed) Active *BHN/CCA/CC-Matias Vela- [phone]/Health long term, active care coordination(Confirmed) Active POTS (postural orthostatic t achycardia syndrome)(Confirmed) Active Medulloblastoma(Confirmed) Active RUQ pain(Confirmed) Active Viral URI(Confirmed) Active Social History Social History Type Response Smoking Status Never smoker; Tobacc o user in household: No entered on: 04/11/16 Sex Female
--- OUTSIDE RECORDS SUMMARY | 2024-04-27 10:11 | XMS_ITS | Continuity of Care Document ---
Author Organization [facility] Address Unknown Care Team Providers Care Case Finisher Name Role Phone Sisi Hernandez MD Primary Care Physician Encounter [facility] [place] Date(s): 08/15/21 - 09/14/21 [facility] Allergies, Adverse Reactions, Alerts Substance Reaction Severity [...] 0 Refills, Maintenance, 08/24/21 13:15:00 EST, Tablet, [facility] Start Date: 08/24/21 Status: Ordered Adderall XR 15 mg oral capsule, extended release 1 capsule = 15 mg, By Mouth, 2 times a day, Change from 10 mg XR and increase to 2 times per day. To take with short acting 5 mg, # 60 capsule, 0 Refills, Maintenance, 08/24/21 13:13:00 EST, ER Capsule, [facility], Partial fill upon leonardo... Start Date: 08/24/21 Status: Ordered albuterol CFC free 90 mcg/inh inhalation aerosol 2, puffs, Inhalation, Every 6 hours, PRN, # 2 each, Refills 11, Tot. Refills 11, Maintenance, 12/02/20 8:50:00 EDT, Aerosol, Route to Pharmacy Electronically, [id number], [facility], 155, cm, 06/03/20 13:15:00 E... Start [...] 6 Refills, Maintenance, 06/15/20 11:56:00 EST, Solution, [facility], 155, cm, 06/03/20 13:15:00 EST, Height, 68.5, kg, 06/03/20 13:18:00 EST, Dry Weight Start Date: 06/15/20 Status: Ordered Diflucan 150 mg oral tablet 1 tablet = 150 mg, By Mouth, Every 48 hours, # 2 tablet, 0 Refills, Soft Stop, 07/31/21 10:46:00 EST, Tablet, [facility], Partial fill upon patient request if the prescription is for a schedule II opioid drug., 155, cm, 06/09/21 14:21:00... Start Date: 07/31/21 Status: Ordered dilTIAZem 240 mg/24 hours oral tablet, extended release 1 tablet = 240 mg, By Mouth, Daily, FURTHER REFILLS BY SERGER, # 90 tablet, 0 Refills, Maintenance, 11/27/19 [...] tablet, 2 Refills, Maintenance, 05/06/20 15:17:00 EDT, [facility], 155, cm, 05/03/20 [...] 15:30:53 EST, Aerosol, Route to Pharmacy Electronically, [id number]... Start Date: 09/12/18 Stop Date: 02/09/19 Status: Ordered ProAir HFA 90 mcg/inh inhalation aerosol with adapter 2, puffs, Inhalation, Every 4 hours, PRN, use with spacer chamber BRAND NAME MEDICALLY NECESSARY, #8.5 Gm, Refills 0, Tot. Refills 0, Maintenance, 12/05/20 15:38:00 EDT, Aerosol, Route to Pharmacy Electronically, [id number]... Start Date: 12/05/20 Status: Ordered Sunosi 75 [...] 2 Refills, Maintenance, 08/04/20 12:39:00 EST, Capsule, [facility], Partial [...] Active Bilateral leg pain(Confirmed) Active *BHN/CCA/CC-Matias Vela- [phone]/Health intermediate, active care coordination(Confirmed) Active POTS (postural orthostatic t achycardia syndrome)(Confirmed) Active Medulloblastoma(Confirmed) Active RUQ pain(Confirmed) Active Viral URI(Confirmed) Active Social History Social History Type Response Smoking Status Never smoker; Tobacc o user in household: No entered on: 04/11/16 Sex Female
--- OUTSIDE RECORDS SUMMARY | 2024-04-27 10:11 | XMS_ITS | Continuity of Care Document ---
Author Organization [facility] Address [address] [place] [address]- Care Team Providers Care Forensic Structural Engineer Name Role Phone Sisi Hernandez MD Primary Care Physician En[place] [facility] [place] Date(s): 12/11/23 - 01/16/[address] [address] Attending Physician: Sisi Hernandez MD Admitting Physician: [...] 13:12:00 EDT, Aerosol, Route to Pharmacy Electronically, [id number], [facility], ONLY ALBUTEROL HFA, CANCEL... Start Date: 02/15/22 Stop Date: 02/10/23 Status: Ordered Colace sodium 100 mg oral capsule 100 mg, 1, capsule, By Mouth, 2 times a day, PRN, # 180 capsule, Refills 3, Tot. Refills 3, Maintenance, for constipation, 08/09/23 14:49:00 EST, Route to Pharmacy Electronically, [facility], Partial fill upon [...] 2 Refills, Maintenance, 11/22/23 15:23:00 EDT, Solution, [facility], dose change, 155, [...] 0 Refills, Maintenance, 02/15/22 13:10:00 EDT, Aerosol, [facility], new dosage, 155, [...] 07/31/22 11:03:00 EST, Route to Pharmacy Electronically, [facility], Partial fill upon patient request if the prescription is for a schedule... Start Date: 07/31/22 Status: Ordered ketoconazole 1% topical shampoo See Instructions, Apply 5 to 10 mL to wet scalp, lather, leave on 3 to 5 minutes, and rinse; apply twice weekly for 2 to 4 weeks., # 200 mL, 5 Refills, Maintenance, 11/22/23 15:46:00 EDT, [facility], Partial fill upon patient request if... Start Date: 11/22/23 Status: Ordered ketoconazole 2% topical shampoo 1 application, Topically, Once, Apply 5 to 10 mL to wet scalp, lather, leave on 3 to 5 minutes, andrinse; apply weekly for 2 to 4 weeks., # 120 mL, 4 Refills, Soft Stop, 11/25/23 12:40:00 EDT, Shampoo, [facility], Partial fill upon pat... Start Date: 11/25/23 Status: Ordered LORazepam 0.5 mg oral tablet See Instructions, TAKE 1 TABLET BY MOUTH TWO TIMES A DAY NEEDED FOR ANXIETY, # 28 tablet, 2 Refills, Maintenance, 12/05/22 12:25:00 EDT, [facility], 155, cm, 12/05/22 11:40:00 EDT, Height, [...] 0 Refills, Maintenance, 08/01/22 6:06:00 EST, Tablet, [facility], Partial fill upon patient request if the prescription is for a schedule II opioid drug., 155, cm,... Start Date: 08/01/22 Status: Ordered Symbicort 160mcg/4.5mcg Inhaler 2, puffs, Inhalation, 2 times a day, # 3 each, Refills 5, Tot. Refills 5, Maintenance, 09/27/22 12:00:00 EST, Aerosol, Route to Pharmacy Electronically, [id number], [facility], replaces flovent inhaler, 155, [...] 07/31/22 11:03:00 EST, Route to Pharmacy Electronically, [facility], Partial fill upon [...] Refills, Maintenance, 08/14/23 13:38:00 EST, Chew Tablet, [facility], Partial fill upon patient request if the prescription is for a schedule II opioid drug., 155, cm, 08/14/23 13:0... Start Date: 08/14/23 Status: Ordered Vitamin D3 50,000 intl units oral capsule 1 capsule = 1,250 mcg, By Mouth, Every week, # 13 capsule, 1 Refills, Maintenance, 05/17/23 17:07:00 EDT, Capsule, [facility], Partial fill upon [...] 0 Refills, Maintenance, 11/01/23 14:07:00 EDT, Capsule, [facility], Partial fill u... 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 Social History Social History Type Response Smoking Status Never smoker; Tobacc o user in household: No entered on: 04/11/16 Sex Patient Care team information Care Team Personnel Name: Vidhya Grace RN Position: [facility] RN Member Role: Primary Care Nurse Name: Sisi Hernandez MD Position: [facility] Physician - Primary Care Member Role: PCP Address: Address: [address] [place] [address] Name: Lizzette To RN Position: [facility] SN RN Member Role: Primary Care Nurse Name: Karolina Adkins MD Position: [facility] Physician - Primary Care Member Role: Lifetime Consulting Physician Address: Address: [address] [place] [address] [facility] [place] [address]- Name: Isadora Godfrey RN Position: [facility] RN Member Role: Primary Care Nurse Name: Rossy Rowe RN Position: [facility] SN RN Member Role: Primary Care Nurse Name: Cindi Hayward RN Position: [facility] RN Member Role: Primary Care Nurse Name: Bela Mcmahon RN Position: [facility] Hospital Locomotive Driver Member Role: Primary Care Nurse Name: Nicole Hernandez RN Position: [facility] RN Member Role: Primary Care Nurse Name: Zac Castillo RN Position: [facility] ED RN W/OE and Tasks Member Role: Primary Care Nurse Name: Jeanne Grande RN Position: [facility] RN Member Role: Primary Care Nurse Care Team Related Persons Name: BEAR TURNER Address: home [address] [place] [id number] Name: BEAR TURNER SECONDARY Address: home [address] [place] [address] Name: ISATU ECKERT Address: [place] [address] Name: ISAAC VERDE PRIMARY Address: home [address] [place] [address] Name: ADRY DURANT Name: PANCHO JEROME Address: [place] [address]
--- OUTSIDE RECORDS SUMMARY | 2024-04-27 10:11 | XMS_ITS | Continuity of Care Document ---
Author Organization [facility] Address [address] [place] [address]- Care Team Providers Care Drill Press Set Up Operator Radial Name Role Phone Sisi Hernandez MD Primary Care Physician Encounter [facility] [place] Date(s): 01/10/22 - 02/14/22 [facility] [address] [place], [place] [address] Attending Physician: Sisi Hernandez MD [...] 11/16/21 23:51:00 EDT, Route to Pharmacy Electronically, [facility], Partial fill upon patient request if the presc... Start Date: 11/16/21 Status: Ordered albuterol CFC free 90 mcg/inh inhalation aerosol 2, puffs, Inhalation, Every 6 hours, PRN, # 2 each, Refills 11, Tot. Refills 11, Maintenance, 10/05/21 9:52:00 EST, Aerosol, Route to Pharmacy Electronically, [id number], [facility], ONLY ALBUTEROL HFA, CANCEL [...] 6 Refills, Maintenance, 10/03/21 12:18:00 EST, Solution, [facility], 155, cm, 09/27/21 15:08:00 EST, Height, 68.5, kg, 06/03/20 13:18:00 EST, Dry Weight Start Date: 10/03/21 Status: Ordered cyanocobalamin 1000 mcg/ml injectable solution 1 mL = 1,000 mcg, Intramuscular, Every 30 days, # 3 mL, 6 Refills, Maintenance, 06/15/20 11:56:00 EST, Solution, [facility] 3, 155, cm, 06/03/20 13:15:00 EST, Height, 68.5, kg, 06/03/20 13:18:00 EST, Dry Weight Start Date: 06/15/20 Status: Ordered dilTIAZem 240 mg/24 hours oral tablet, extended release 1 tablet = 240 mg, By Mouth, Daily, FURTHER REFILLS BY DIRECTOR COMMUNICATIONS, # 90 tablet, 0 Refills, Maintenance, 11/27/19 8:57:00 EDT, ER Tablet, [facility] 3, 155, cm, 10/07/19 12:25:00 EDT, Height, 63, kg, 07/01/19 19:58:00 EST, Dry Weight Start Date: 11/27/19 Status: Ordered Flovent HFA 110 mcg/inh inhalation aerosol 2 puffs, Inhalation, 2 times a day, # 12 Gm, 0 Refills, Maintenance, 10/05/21 13:23:00 EST, Aerosol, [facility], Partial fill upon patient [...] 11/16/21 23:51:00 EDT, Route to Pharmacy Electronically, [facility], Partial fill upon patient request if the prescription is... Start Date: 11/16/21 Status: Ordered LORazepam 0.5 mg oral tablet See Instructions, TAKE 1 TABLET BY MOUTH TWO TIMES A DAY NEEDED FOR ANXIETY, # 28 tablet, 2 Refills, Maintenance, 05/06/20 15:17:00 EDT, [facility], 155, cm, 05/03/20 [...] Refills, Maintenance, 11/16/21 23:51:00 EDT, DIS Tablet, [facility], Partial fill upon patient request if the prescription is for a schedule II o... Start Date: 11/16/21 Status: Ordered Peridex 0.12% liquid 15 mL = 0.018 Gm, By Mouth, 2 times a day, # 420 mL, 0 Refills, Maintenance, 01/18/22 8:47:00 EDT, Liquid, [facility], Partial fill upon patient [...] 3 Refills, Maintenance, 10/25/21 11:13:00 EDT, Capsule, [facility], Partial fill upon [...] Active Bilateral leg pain(Confirmed) Active *BHN/CCA/CC-Matias Vela- [phone]/Health retirement, active care coordination(Confirmed) Active POTS (postural orthostatic t achycardia syndrome)(Confirmed) Active Medulloblastoma(Confirmed) Active RUQ pain(Confirmed) Active Social History Social History Type Response Smoking Status Never smoker; Tobacc o user in household: No entered on: 04/11/16 Sex Female
--- OUTSIDE RECORDS SUMMARY | 2024-04-27 10:11 | XMS_ITS | Continuity of Care Document ---
Author Organization [facility] Address Unknown Care Team Providers Care Eye Glass Frame Polisher Name Role Phone Sisi Hernandez MD Primary Care Physician Encounter [facility] [place] Date(s): 09/15/21 - 10/15/21 [facility] Allergies, Adverse Reactions, Alerts Substance Reaction [...] 0 Refills, Maintenance, 09/27/21 15:38:00 EST, Tablet, [facility], Partial fill upon patient request if [...] Refills, Maintenance, 09/27/21 15:31:00 EST, ER Capsule, [facility], Partial fill upon patient r... Start Date: 09/27/21 Status: Ordered albuterol CFC free 90 mcg/inh inhalation aerosol 2, puffs, Inhalation, Every 6 hours, PRN, # 2 each, Refills 11, Tot. Refills 11, Maintenance, 10/05/21 9:52:00 EST, Aerosol, Route to Pharmacy Electronically, [id number], [facility], ONLY ALBUTEROL HFA, CANCEL [...] 6 Refills, Maintenance, 10/03/21 12:18:00 EST, Solution, [facility], 155, cm, 09/27/21 15:08:00 EST, Height, 68.5, kg, 06/03/20 13:18:00 EST, Dry Weight Start Date: 10/03/21 Status: Ordered cyanocobalamin 1000 mcg/ml injectable solution 1 mL = 1,000 mcg, Intramuscular, Every 30 days, # 3 mL, 6 Refills, Maintenance, 06/15/20 11:56:00 EST, Solution, [facility] 3, 155, cm, 06/03/20 13:15:00 EST, Height, 68.5, kg, 06/03/20 13:18:00 EST, Dry Weight Start Date: 06/15/20 Status: Ordered Diflucan 150 mg oral tablet 1 tablet = 150 mg, By Mouth, Every 48 hours, # 2 tablet, 0 Refills, Soft Stop, 07/31/21 10:46:00 EST, Tablet, [facility], Partial fill upon patient request if the prescription is for a schedule II opioid drug., 155, cm, 06/09/21 14:21:00... Start Date: 07/31/21 Status: Ordered dilTIAZem 240 mg/24 hours oral tablet, extended release 1 tablet = 240 mg, By Mouth, Daily, FURTHER REFILLS BY MOTOR RUNNER, # 90 tablet, 0 Refills, Maintenance, 11/27/19 8:57:00 EDT, ER Tablet, [facility], 155, cm, 10/07/19 12:25:00 EDT, Height, 63, kg, 07/01/19 19:58:00 EST, Dry Weight Start Date: 11/27/19 Status: Ordered Flovent HFA 110 mcg/inh inhalation aerosol 2 puffs, Inhalation, 2 times a day, # 12 Gm, 0 Refills, Maintenance, 10/05/21 13:23:00 EST, Aerosol, [facility], Partial fill upon patient request [...] tablet, 2 Refills, Maintenance, 05/06/20 15:17:00 EDT, [facility], 155, cm, 05/03/20 18:55:00 [...] 2 Refills, Maintenance, 08/04/20 12:39:00 EST, Capsule, [facility], Partial fill upon patient request [...] Active Bilateral leg pain(Confirmed) Active *BHN/CCA/CC-Matias Vela- [phone]/Health fci, active care coordination(Confirmed) Active POTS (postural orthostatic t achycardia syndrome)(Confirmed) Active Medulloblastoma(Confirmed) Active RUQ pain(Confirmed) Active Social History Social History Type Response Smoking Status Never smoker; Tobacc o user in household: No entered on: 04/11/16 Sex Female
--- OUTSIDE RECORDS SUMMARY | 2024-04-27 10:12 | XMS_ITS | Continuity of Care Document ---
Author Organization [facility] Address [address] [place] [address]- Care Team Providers Care Radio Reporter Name Role Phone Sisi Hernandez MD Primary Care Physician [place] [facility] [place](s): 02/08/21 - 02/15/21 [facility] [address] [place], [place] [address] Attending Physician: Not on Staff, [...] 8:50:00 EDT, Aerosol, Route to Pharmacy Electronically, [id number], [facility], 155, cm, 06/03/20 [...] 6 Refills, Maintenance, 06/15/20 11:56:00 EST, Solution, [facility], 155, cm, 06/03/20 13:15:00 EST, Height, 68.5, kg, 06/03/20 13:18:00 EST, Dry Weight Start Date: 06/15/20 Status: Ordered dilTIAZem 240 mg/24 hours oral tablet, extended release 1 tablet = 240 mg, By Mouth, Daily, FURTHER REFILLS BY LECTURER [employer] [place], # 90 tablet, 0 Refills, Maintenance, 11/27/19 8:57:00 EDT, ER Tablet, [facility], 155, cm, 10/07/19 12:25:00 EDT, [...] Maintenance, 05/06/20 15:17:00 EDT, [facility], 155, cm, 05/03/20 18:55:00 [...] 15:30:53 EST, Aerosol, Route to Pharmacy Electronically, [id number]... Start Date: 09/12/18 Stop Date: 02/09/19 Status: Ordered ProAir HFA 90 mcg/inh inhalation aerosol with adapter 2, puffs, Inhalation, Every 4 hours, PRN, use with spacer chamber BRAND NAME MEDICALLY NECESSARY, #8.5 Gm, Refills 0, Tot. Refills 0, Maintenance, 12/05/20 15:38:00 EDT, Aerosol, Route to Pharmacy Electronically, [id number]... Start Date: 12/05/20 Status: Ordered ramelteon 8 [...] Active Bilateral leg pain(Confirmed) Active *BHN/CCA/CC-Matias Vela- [phone]/Health long-term, active care coordination(Confirmed) Active POTS (postural orthostatic t achycardia syndrome)(Confirmed) Active Medulloblastoma(Confirmed) Active RUQ pain(Confirmed) Active Viral URI(Confirmed) Active Social History Social History Type Response Smoking Status Never smoker; Tobacc o user in household: No entered on: 04/11/16 Sex
--- OUTSIDE RECORDS SUMMARY | 2024-04-27 10:12 | XMS_ITS | Continuity of Care Document ---
Author Organization [facility] Address [address] [place] [address]- Care Team Providers Care Explosive Ordnance Disposal Technician Name Role Phone Sisi Hernandez MD Primary Care Physician [phone] Encounter [facility] Date(s): 02/08/21 - 04/12/21 [facility] [address] [place], [place] [address] Attending Physician: Sisi Hernandez MD [...] 8:50:00 EDT, Aerosol, Route to Pharmacy Electronically, [id number], [facility], 155, cm, 06/03/20 13:15:00 [...] 6 Refills, Maintenance, 06/15/20 11:56:00 EST, Solution, [facility], 155, cm, 06/03/20 13:15:00 EST, Height, 68.5, kg, 06/03/20 13:18:00 EST, Dry Weight Start Date: 06/15/20 Status: Ordered dilTIAZem 240 mg/24 hours oral tablet, extended release 1 tablet = 240 mg, By Mouth, Daily, FURTHER REFILLS BY PASTING INSPECTOR, # 90 tablet, 0 Refills, Maintenance, 11/27/19 8:57:00 EDT, ER Tablet, [facility], 155, cm, 10/07/19 12:25:00 [...] tablet, 2 Refills, Maintenance, 05/06/20 15:17:00 EDT, [facility], 155, cm, 05/03/20 18:55:00 EDT, [...] 15:30:53 EST, Aerosol, Route to Pharmacy Electronically, [id number]... Start Date: 09/12/18 Stop Date: 02/09/19 Status: Ordered ProAir HFA 90 mcg/inh inhalation aerosol with adapter 2, puffs, Inhalation, Every 4 hours, PRN, use with spacer chamber BRAND NAME MEDICALLY NECESSARY, #8.5 Gm, Refills 0, Tot. Refills 0, Maintenance, 12/05/20 15:38:00 EDT, Aerosol, Route to Pharmacy Electronically, [id number]... Start Date: 12/05/20 Status: Ordered syringe and [...] 2 Refills, Maintenance, 08/04/20 12:39:00 EST, Capsule, [facility], Partial fill upon [...] Active Bilateral leg pain(Confirmed) Active *BHN/CCA/CC-[facility]- [phone]/Health fdc, active care coordination(Confirmed) Active POTS (postural orthostatic t achycardia syndrome)(Confirmed) Active Medulloblastoma(Confirmed) Active RUQ pain(Confirmed) Active Viral URI(Confirmed) Active Social History Social History Type Response Smoking Status Never smoker; Tobacc o user in household: No entered on: 04/11/16 Sex
--- OUTSIDE RECORDS SUMMARY | 2024-04-27 10:12 | XMS_ITS | Continuity of Care Document ---
Author Organization [facility] Address [address] [place] [address]- Care Team Providers Care Purchasing Clerk Name Role Phone Mary KEATING, Sisi Almanza Primary Care Physician Encounter [facility] Date(s): 09/11/22 - 10/11/22 [facility] [address] [address] Allergies, Adverse Reactions, Alerts Substance Reaction [...] 13:12:00 EDT, Aerosol, Route to Pharmacy Electronically, [id number], [facility], ONLY ALBUTEROL HFA, CANCEL... Start Date: 02/15/22 Stop Date: 02/10/23 Status: Ordered Colace sodium 100 mg oral capsule 100 mg, 1, capsule, By Mouth, 2 times a day, PRN, # 30 capsule, Refills 0, Tot. Refills 0, Maintenance, for constipation, 07/31/22 11:03:00 EST, Route to Pharmacy Electronically, [facility], Partial fill upon [...] 6 Refills, Maintenance, 09/04/22 8:50:00 EST, Solution, [facility], 155, cm, 08/14/22 13:52:00 [...] 0 Refills, Maintenance, 02/15/22 13:10:00 EDT, Aerosol, [facility], new dosage, 155, cm, [...] 07/31/22 11:03:00 EST, Route to Pharmacy Electronically, [facility], Partial fill upon patient request if the prescription is for a schedule... Start Date: 07/31/22 Status: Ordered LORazepam 0.5 mg oral tablet See Instructions, TAKE 1 TABLET BY MOUTH TWO TIMES A DAY NEEDED FOR ANXIETY, # 28 tablet, 2 Refills, Maintenance, 06/06/22 10:45:00 EST, [facility], 155, cm, 04/06/22 [...] Refills, Maintenance, 08/01/22 6:06:00 EST, REC Powder, [facility] 3, Partial fill upon patient [...] 0 Refills, Maintenance, 08/01/22 6:06:00 EST, Tablet, [facility] 3, Partial fill upon patient request if the prescription is for a schedule II opioid drug., 155, cm,... Start Date: 08/01/22 Status: Ordered Symbicort 160mcg/4.5mcg Inhaler 2, puffs, Inhalation, 2 times a day, # 3 each, Refills 5, Tot. Refills 5, Maintenance, 09/27/22 12:00:00 EST, Aerosol, Route to Pharmacy Electronically, [id number], [facility], replaces flovent inhaler, 155, cm,... [...] 07/31/22 11:03:00 EST, Route to Pharmacy Electronically, [facility], Partial fill upon [...] 3 Refills, Maintenance, 06/05/22 14:27:00 EST, Capsule, [facility], Partial fill upon [...] Bilateral leg pain Confirmed Active *BHN/CCA/CC-[facility]- [phone]/Health halfway, active care coordination Confirmed Active POTS (postural orthostatic tachycardia syndrome) Confirmed Active Medulloblastoma Confirmed Active RUQ pain Confirmed Active Social History Social History Type Response Smoking Status Never smoker; Tobacc o user in household: No entered on: 04/11/16 Sex Patient Care team information Care Team Personnel Name: Vidhya Grace RN Position: [facility] RN Member Role: Primary Care Nurse Name: Sisi Hernandez MD Position: [facility] Primary Care Physician Member Role: PCP Address: Address: [address] [place] [id number] Name: Lizzette To RN Position: [facility] RN Member Role: Primary Care Nurse Name: Karolina Adkins MD Position: [facility] Physician -Physician Practices Member Role: Lifetime Consulting Physician Address: Address: [address] [place] [address] [facility] [place], [place] [address] Name: Isadora Godfrey RN Position: [facility] RN Member Role: Primary Care Nurse Name: Rossy Rowe RN Position: [facility] SN RN Member Role: Primary Care Nurse Name: Cindi Hayward Position: [facility] RN Member Role: Primary Care Nurse Name: Bela Mcmahon RN Position: [facility] Hospital Assessment Consultant Member Role: Primary Care Nurse Name: Nicole Hernandez RN Position: [facility] RN Member Role: Primary Care Nurse Name: Zac Castillo RN Position: [facility] ED RN W/OE and Tasks Member Role: Primary Care Nurse Name: Jeanne Grande RN Position: [facility] RN Member Role: Primary Care Nurse Care Team Related Persons Name: BEAR TURNER Address: home [address], [place] Name: JOHNNY BEAR SECONDARY Address: home [address], [place] Name: ISATU ECKERT Address: [place] [address] Name: ISAAC VERDE PRIMARY Address: [address] [address] Name: ADRY DURANT Name: PANCHO JEROME Address: [place] [address]
--- OUTSIDE RECORDS SUMMARY | 2024-04-27 10:12 | XMS_ITS | Continuity of Care Document ---
Author Organization [facility] Address [address] [place] [address]- Care Team Providers Care Communications Clerk Name Role Phone Sisi Hernandez MD Primary Care Physician [phone] Encounter [facility] Date(s): 10/07/23 - 11/07/23 [facility] [address] [place], [place] [address] Attending Physician: Jessica Hanley MD Allergies, Adverse Reactions, Alerts Substance Reaction [...] 13:12:00 EDT, Aerosol, Route to Pharmacy Electronically, [id number], [facility], ONLY ALBUTEROL HFA, CANCEL... Start Date: 02/15/22 Stop Date: 02/10/23 Status: Ordered Colace sodium 100 mg oral capsule 100 mg, 1, capsule, By Mouth, 2 times a day, PRN, # 180 capsule, Refills 3, Tot. Refills 3, Maintenance, for constipation, 08/09/23 14:49:00 EST, Route to Pharmacy Electronically, [facility], Partial fill upon patient [...] 6 Refills, Maintenance, 08/07/23 13:45:00 EST, Solution, [facility], 155, cm, 06/07/23 20:58:00 EST, [...] 0 Refills, Maintenance, 02/15/22 13:10:00 EDT, Aerosol, [facility], new dosage, 155, cm, [...] 07/31/22 11:03:00 EST, Route to Pharmacy Electronically, [facility], Partial fill upon patient request if the prescription is for a schedule... Start Date: 07/31/22 Status: Ordered LORazepam 0.5 mg oral tablet See Instructions, TAKE 1 TABLET BY MOUTH TWO TIMES A DAY NEEDED FOR ANXIETY, # 28 tablet, 2 Refills, Maintenance, 12/05/22 12:25:00 EDT, [facility], 155, cm, 12/05/22 [...] 0 Refills, Maintenance, 08/01/22 6:06:00 EST, Tablet, [facility], Partial fill upon patient request if the prescription is for a schedule II opioid drug., 155, cm,... Start Date: 08/01/22 Status: Ordered Symbicort 160mcg/4.5mcg Inhaler 2, puffs, Inhalation, 2 times a day, # 3 each, Refills 5, Tot. Refills 5, Maintenance, 09/27/22 12:00:00 EST, Aerosol, Route to Pharmacy Electronically, [id number], [facility], replaces flovent inhaler, 155, cm,... Start [...] 07/31/22 11:03:00 EST, Route to Pharmacy Electronically, [facility], Partial fill upon patient [...] 13:38:00 EST, Chew Tablet, [facility], Partial fill upon patient request if the prescription is for a schedule II opioid drug., 155, cm, 08/14/23 13:0... Start Date: 08/14/23 Status: Ordered Vitamin D3 50,000 intl units oral capsule 1 capsule = 1,250 mcg, By Mouth, Every week, # 13 capsule, 1 Refills, Maintenance, 05/17/23 17:07:00 EDT, Capsule, [facility], Partial fill upon patient [...] 0 Refills, Maintenance, 11/01/23 14:07:00 EDT, Capsule, [facility], Partial fill u... Start Date: [...] Confirmed Active Bilateral leg pain Confirmed Active *BHN/CCA/CC-[facility]- [phone]/[facility], active care coordination Confirmed Active POTS (postural orthostatic tachycardia syndrome) Confirmed Active Medulloblastoma Confirmed Active RUQ pain Confirmed Active Tachy-sharmin syndrome Confirmed Active Social History Social History Type Response Smoking Status Never smoker; Tobacc o user in household: No entered on: 04/11/16 Sex Patient Care team information Care Team Personnel Name: Vidhya Grace RN Position: [facility] RN Member Role: Primary Care Nurse Name: Sisi Hernandez MD Position: [facility] Physician - Primary Care Member Role: PCP Address: Address: [address] [place] [address] Name: Lizzette To RN Position: [facility] SN RN Member Role: Primary Care Nurse Name: Karolina Adkins MD Position: [facility] Physician - Primary Care Member Role: Lifetime Consulting Physician Address: Address: [address] [place] [address] [facility] [address] Name: Isadora Godfrey RN Position: [facility] RN Member Role: Primary Care Nurse Name: Rossy Rowe RN Position: [facility] SN RN Member Role: Primary Care Nurse Name: Cindi Hayward RN Position: [facility] RN Member Role: Primary Care Nurse Name: Bela Mcmahon RN Position: [facility] Hospital Hospital Librarian Member Role: Primary Care Nurse Name: Nicole Hernandez RN Position: [facility] RN Member Role: Primary Care Nurse Name: Zac Castillo RN Position: [facility] ED RN W/OE and Tasks Member Role: Primary Care Nurse Name: Jeanne Grande RN Position: [facility] RN Member Role: Primary Care Nurse Care Team Related Persons Name: BEAR TURNER Address: home [address] [place] [id number] Name: BEAR TURNER SECONDARY Address: home [address] [place] [address] Name: ISATU ECKERT Address: [place] [address] Name: ISAAC VERDE PRIMARY Address: [address] [address] Name: ADRY DURANT Name: PANCHO JEROME Address: [place] [address]
--- OUTSIDE RECORDS SUMMARY | 2024-04-27 10:12 | XMS_ITS | Continuity of Care Document ---
Author Organization [facility] Address [address] [place] [address]- Care Team Providers Care Service Associate Name Role Phone Sisi Hernandez MD Primary Care Physician [place] [facility] Date(s): 02/04/24 - 03/05/24 [facility] [address] [place] [address]- Attending Physician: Admtr, Ar8 Admitting Physician: Admtr, Ar8 Referring Physician: Admtr, Ar8 Allergies, Adverse Reactions, [...] 13:12:00 EDT, Aerosol, Route to Pharmacy Electronically, [id number], [facility], ONLY ALBUTEROL HFA, CANCEL... Start Date: 02/15/22 Stop Date: 02/10/23 Status: Ordered Colace sodium 100 mg oral capsule 100 mg, 1, capsule, By Mouth, 2 times a day, PRN, # 180 capsule, Refills 3, Tot. Refills 3, Maintenance, for constipation, 08/09/23 14:49:00 EST, Route to Pharmacy Electronically, [facility], Partial fill upon [...] 11 Refills, Maintenance, 02/06/24 12:13:00 EDT, Solution, [facility], dose change, 155, [...] 07/31/22 11:03:00 EST, Route to Pharmacy Electronically, [facility], Partial fill upon patient request if the prescription is for a schedule... Start Date: 07/31/22 Status: Ordered ketoconazole 1% topical shampoo See Instructions, Apply 5 to 10 mL to wet scalp, lather, leave on 3 to 5 minutes, and rinse; apply twice weekly for 2 to 4 weeks., # 200 mL, 5 Refills, Maintenance, 11/22/23 15:46:00 EDT, [facility], Partial fill upon patient request if... Start Date: 11/22/23 Status: Ordered ketoconazole 2% topical shampoo 1 application, Topically, Once, Apply 5 to 10 mL to wet scalp, lather, leave on 3 to 5 minutes, andrinse; apply weekly for 2 to 4 weeks., # 120 mL, 4 Refills, Soft Stop, 11/25/23 12:40:00 EDT, Shampoo, [facility], Partial fill upon pat... Start Date: 11/25/23 Status: Ordered LORazepam 0.5 mg oral tablet See Instructions, TAKE 1 TABLET BY MOUTH TWO TIMES A DAY NEEDED FOR ANXIETY, # 28 tablet, 2 Refills, Maintenance, 02/06/24 12:19:00 EDT, [facility], 155, cm, 02/06/24 [...] 0 Refills, Maintenance, 08/01/22 6:06:00 EST, Tablet, [facility], Partial fill upon patient request if the prescription is for a schedule II opioid drug., 155, cm,... Start Date: 08/01/22 Status: Ordered Symbicort 160mcg/4.5mcg Inhaler 2, puffs, Inhalation, 2 times a day, # 3 each, Refills 5, Tot. Refills 5, Maintenance, 02/06/24 12:14:00 EDT, Aerosol, Route to Pharmacy Electronically, [id number], [facility], replaces flovent inhaler, 155, cm,... [...] 11:03:00 EST, Route to Pharmacy Electronically, [facility], Partial fill upon patient request if [...] Maintenance, 08/14/23 13:38:00 EST, Chew Tablet, [facility], Partial fill upon patient request if the prescription is for a schedule II opioid drug., 155, cm, 08/14/23 13:0... Start Date: 08/14/23 Status: Ordered Vitamin D3 50,000 intl units oral capsule 1 capsule = 1,250 mcg, By Mouth, Every week, # 13 capsule, 1 Refills, Maintenance, 05/17/23 17:07:00 EDT, Capsule, [facility], Partial fill upon [...] 0 Refills, Maintenance, 11/01/23 14:07:00 EDT, Capsule, [facility], Partial fill u... [...] Active Memory change Confirmed Active *BHN/CCA/CC-[facility]- [phone]/[facility], active care coordination Confirmed Active POTS (postural orthostatic tachycardia syndrome) Confirmed Active 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 Social History Social History Type Response Smoking Status Never smoker; Tobacc o user in household: No entered on: 04/11/16 Sex Patient Care team information Care Team Personnel Name: Vidhya Grace RN Position: [facility] RN Member Role: Primary Care Nurse Name: Sisi Hernandez MD Position: [facility] Physician - Primary Care Member Role: PCP Address: Address: [address] [place] [address]- Name: Lizzette To RN Position: [facility] RN Member Role: Primary Care Nurse Name: Karolina Adkins MD Position: [facility] Physician - Primary Care Member Role: Lifetime Consulting Physician Address: Address: [address] [place] [address] Geriatric & [place] [address]- Name: Epifanio RN, Isadora Position: [facility] RN Member Role: Primary Care Nurse Name: Rossy Rowe RN Position: [facility] SN RN Member Role: Primary Care Nurse Name: Cindi Hayward RN Position: [facility] RN Member Role: Primary Care Nurse Name: Bela Mcmahon RN Position: [facility] Hospital Baggage Smasher Member Role: Primary Care Nurse Name: Nicole Hernandez RN Position: [facility] RN Member Role: Primary Care Nurse Name: Zac Castillo RN Position: [facility] ED RN W/OE and Tasks Member Role: Primary Care Nurse Name: Harjinder MONTELONGO, Jeanne Baker Position: [facility] RN Member Role: Primary Care Nurse Care Team Related Persons Name: TURNERBEAR Address: home [address] [place] [address] Name: BEAR TURNER SECONDARY Address: home [address] [place] [address] Name: ISATU ECKERT Address: [place] [address] Name: ISAAC VERDE PRIMARY Address: home [address] [place] [address] Name: ADRY DURANT Name: PANCHO JEROME Address: [place] [address]
--- OUTSIDE RECORDS SUMMARY | 2024-04-27 10:12 | XMS_ITS | Continuity of Care Document ---
Author Organization [facility] Address [address] [place] [address]- Care Team Providers Care Cut Off Tender Glass Name Role Phone Sisi Hernandez MD Primary Care Physician [place] [facility] [place] 11/07/22 - 12/09/22 [facility] [address] [place], [place] [address] Attending Physician: Not on Staff, [...] 13:12:00 EDT, Aerosol, Route to Pharmacy Electronically, [id number], [facility], ONLY ALBUTEROL HFA, CANCEL... Start Date: 02/15/22 Stop Date: 02/10/23 Status: Ordered Colace sodium 100 mg oral capsule 100 mg, 1, capsule, By Mouth, 2 times a day, PRN, # 30 capsule, Refills 0, Tot. Refills 0, Maintenance, for constipation, 07/31/22 11:03:00 EST, Route to Pharmacy Electronically, [facility], Partial fill upon patient request [...] 6 Refills, Maintenance, 09/04/22 8:50:00 EST, Solution, [facility], 155, cm, 08/14/22 13:52:00 EST, [...] 0 Refills, Maintenance, 02/15/22 13:10:00 EDT, Aerosol, [facility], new dosage, 155, cm, 12/08/21 10:46:00 [...] tablet, 2 Refills, Maintenance, 12/05/22 12:25:00 EDT, [facility], 155, cm, 12/05/22 11:40:00 [...] Maintenance, 08/01/22 6:06:00 EST, REC Powder, [facility] 3, Partial fill upon patient request if [...] Refills, Maintenance, 08/01/22 6:06:00 EST, Tablet, [facility] 3, Partial fill upon patient request if the prescription is for a schedule II opioid drug., 155, cm,... Start Date: 08/01/22 Status: Ordered Symbicort 160mcg/4.5mcg Inhaler 2, puffs, Inhalation, 2 times a day, # 3 each, Refills 5, Tot. Refills 5, Maintenance, 09/27/22 12:00:00 EST, Aerosol, Route to Pharmacy Electronically, [id number], [facility], replaces flovent inhaler, 155, cm,... [...] 3 Refills, Maintenance, 06/05/22 14:27:00 EST, Capsule, [facility] [...] Confirmed Active Bilateral leg pain Confirmed Active *N/MIRELLA/FLORESITA-[facility]- [phone]/Health detention, active care coordination Confirmed Active POTS (postural orthostatic tachycardia syndrome) Confirmed Active Medulloblastoma Confirmed Active RUQ pain Confirmed Active Tachy-sharmin syndrome Confirmed Active Social History Social History Type Response Smoking Status Never smoker; Tobacc o user in household: No entered on: 04/11/16 Sex Patient Care team information Care Team Personnel Name: Sanjay MONTELONGO, Vidhya Position: [facility] RN Member Role: Primary Care Nurse Name: Sisi Hernandez MD Position: [facility] Primary Care Physician Member Role: PCP Address: Address: [address] [place] [address] - Name: Lizzette To RN Position: [facility] RN Member Role: Primary Care Nurse Name: Karolina Adkins MD Position: [facility] Physician -Physician Practices Member Role: Lifetime Consulting Physician Address: Address: [address] [place] [address] [facility] [place], [place] - Name: Isadora Godfrey RN Position: [facility] RN Member Role: Primary Care Nurse Name: Rossy Rowe RN Position: [facility] SN RN Member Role: Primary Care Nurse Name: Cindi Hayward Position: [facility] RN Member Role: Primary Care Nurse Name: Bela Mcmahon RN Position: [facility] Hospital Mental Health Specialist Member Role: Primary Care Nurse Name: [...] Related Persons Name: JOHNNY BEAR Address: home [address] [place] [address] Name: BEAR TURNER SECONDARY Address: home [address] [place] [address] Name: ISATU ECKERT Address: [place] [address] Name: ISAAC VERDE PRIMARY Address: home [address] [place] [address] Name: ADRY DURANT Name: PANCHO JEROME Address: [place] [address]
--- OUTSIDE RECORDS SUMMARY | 2024-04-27 10:12 | XMS_ITS | Continuity of Care Document ---
Author Organization [facility] Address [address] [place] [address]- Care Team Providers Care Inspector Optical Instrument Name Role Phone Mary KEATING, Sisi Almanza Primary Care Physician [phone] [place] [facility] [place]/09/[place] - 03/11/[address] [address] Allergies, Adverse [...] 8:50:00 EDT, Aerosol, Route to Pharmacy Electronically, [id number], [facility], 155, cm, 06/03/20 13:15:00 E... [...] 6 Refills, Maintenance, 06/15/20 11:56:00 EST, Solution, [facility], 155, cm, 06/03/20 13:15:00 EST, Height, 68.5, kg, 06/03/20 13:18:00 EST, Dry Weight Start Date: 06/15/20 Status: Ordered dilTIAZem 240 mg/24 hours oral tablet, extended release 1 tablet = 240 mg, By Mouth, Daily, FURTHER REFILLS BY LITIGATION SERVICES MANAGER, # 90 tablet, 0 Refills, Maintenance, 11/27/19 8:57:00 EDT, ER Tablet, [facility], 155, cm, 10/07/19 12:25:00 EDT, Height, [...] tablet, 2 Refills, Maintenance, 05/06/20 15:17:00 EDT, [facility], 155, cm, 05/03/20 18:55:00 EDT, Height, [...] 15:30:53 EST, Aerosol, Route to Pharmacy Electronically, [id number]... Start Date: 09/12/18 Stop Date: 02/09/19 Status: Ordered ProAir HFA 90 mcg/inh inhalation aerosol with adapter 2, puffs, Inhalation, Every 4 hours, PRN, use with spacer chamber BRAND NAME MEDICALLY NECESSARY, #8.5 Gm, Refills 0, Tot. Refills 0, Maintenance, 12/05/20 15:38:00 EDT, Aerosol, Route to Pharmacy Electronically, [id number]... Start Date: 12/05/20 Status: Ordered ramelteon 8 mg oral tablet 1 tablet = 8 mg, By Mouth, Daily at bedtime, # 30 tablet, 11 Refills, Maintenance, 12/02/20 8:48:00EDT, [facility], Partial fill upon patient request if [...] 2 Refills, Maintenance, 08/04/20 12:39:00 EST, Capsule, [facility], Partial fill upon patient request [...] Active Bilateral leg pain(Confirmed) Active *BHN/CCA/CC-Matias Vela- [phone]/Health detention, active care coordination(Confirmed) Active POTS (postural orthostatic t achycardia syndrome)(Confirmed) Active Medulloblastoma(Confirmed) Active RUQ pain(Confirmed) Active Viral URI(Confirmed) Active Social History Social History Type Response Smoking Status Never smoker; Tobacc o user in household: No entered on: 04/11/16 Sex
--- OUTSIDE RECORDS SUMMARY | 2024-04-27 10:12 | XMS_ITS | Continuity of Care Document ---
[facility] Address [address], [address] [place] [address]- Care Team Providers Care Lawnmower Repair Mechanic Name Role Phone Sisi Hernandez MD Primary Care Physician [phone] Encounter [facility] [place] Date(s): 02/26/22 - 03/28/22 [facility] [address], [address] [place], [place] [address] Allergies, Adverse Reactions, Alerts Substance Reaction [...] Route to Pharmacy Electronically, [facility], Partial fill upon patient request if the presc... Start Date: 11/16/21 Status: Ordered albuterol CFC free 90 mcg/inh inhalation aerosol 2, puffs, Inhalation, Every 6 hours, PRN, # 2 each, Refills 11, Tot. Refills 11, Maintenance, 02/15/22 13:12:00 EDT, Aerosol, Route to Pharmacy Electronically, [id number], [facility], ONLY ALBUTEROL HFA, CANCEL... [...] 6 Refills, Maintenance, 10/03/21 12:18:00 EST, Solution, [facility] 3, 155, cm, 09/27/21 15:08:00 EST, Height, 68.5, kg, 06/03/20 13:18:00 EST, Dry Weight Start Date: 10/03/21 Status: Ordered cyanocobalamin 1000 mcg/ml injectable solution 1 mL = 1,000 mcg, Intramuscular, Every 30 days, # 3 mL, 6 Refills, Maintenance, 06/15/20 11:56:00 EST, Solution, [facility] 3, 155, cm, 06/03/20 13:15:00 EST, Height, 68.5, kg, 06/03/20 13:18:00 EST, Dry Weight Start Date: 06/15/20 Status: Ordered dilTIAZem 240 mg/24 hours oral tablet, extended release 1 tablet = 240 mg, By Mouth, Daily, FURTHER REFILLS BY ELECTRICAL AND ELECTRONIC ASSEMBLER, # 90 tablet, 0 Refills, Maintenance, 11/27/19 8:57:00 EDT, ER Tablet, [facility] 3, 155, cm, 10/07/19 12:25:00 EDT, Height, 63, kg, 07/01/19 19:58:00 EST, Dry Weight Start Date: 11/27/19 Status: Ordered Flovent HFA 220 mcg/inh inhalation aerosol 2 puffs, Inhalation, 2 times a day, new dosage, # 12 Gm, 0 Refills, Maintenance, 02/15/22 13:10:00 EDT, Aerosol, [facility], new dosage, 155, cm, [...] Route to Pharmacy Electronically, [facility], Partial fill upon patient request if the prescription is... Start Date: 11/16/21 Status: Ordered LORazepam 0.5 mg oral tablet See Instructions, TAKE 1 TABLET BY MOUTH TWO TIMES A DAY NEEDED FOR ANXIETY, # 28 tablet, 2 Refills, Maintenance, 05/06/20 15:17:00 EDT, [facility], 155, cm, 05/03/20 [...] Maintenance, 11/16/21 23:51:00 EDT, DIS Tablet, [facility], Partial fill upon patient request if the prescription is for a schedule II o... Start Date: 11/16/21 Status: Ordered Peridex 0.12% liquid 15 mL = 0.018 Gm, By Mouth, 2 times a day, # 420 mL, 0 Refills, Maintenance, 01/18/22 8:47:00 EDT, Liquid, [facility], Partial fill [...] Active Bilateral leg pain(Confirmed) Active *BHN/CCA/CC-Matias Vela- [phone]/Health alf, active care coordination(Confirmed) Active POTS (postural orthostatic t achycardia syndrome)(Confirmed) Active Medulloblastoma(Confirmed) Active RUQ pain(Confirmed) Active Social History Social History Type Response Smoking Status Never smoker; Tobacc o user in household: No entered on: 04/11/16 Sex Female Care Team Personnel Name: Sisi Hernandez MD Address: [address] [place] [address]
--- OUTSIDE RECORDS SUMMARY | 2024-04-27 10:12 | XMS_ITS | Continuity of Care Document ---
Author Organization [facility] Address [address] [place] [address]- Care Team Providers Care Otolaryngology Rep Name Role Phone Sisi Hernandez MD Primary Care Physician [id number] Date(s): 12/08/[facility] - 01/10/22 [facility] [address] [place], [place] [address] Attending Physician: Not on Staff, Attending [...] 11/16/21 23:51:00 EDT, Route to Pharmacy Electronically, [facility], Partial fill upon patient request if the presc... Start Date: 11/16/21 Status: Ordered Adderall 5 mg oral tablet 1 tablet = 5 mg, By Mouth, 2 times a day, to take with long acting, # 60 tablet, 0 Refills, Maintenance, 10/25/21 15:46:00 EDT, Tablet, [facility], Partial fill upon patient request [...] Refills, Maintenance, 10/25/21 15:46:00 EDT, ER Capsule, [facility], Partial fill upon patient r... Start Date: 10/25/21 Status: Ordered albuterol CFC free 90 mcg/inh inhalation aerosol 2, puffs, Inhalation, Every 6 hours, PRN, # 2 each, Refills 11, Tot. Refills 11, Maintenance, 10/05/21 9:52:00 EST, Aerosol, Route to Pharmacy Electronically, [id number], [facility], ONLY ALBUTEROL HFA, CANCEL V... [...] 6 Refills, Maintenance, 10/03/21 12:18:00 EST, Solution, [facility], 155, cm, 09/27/21 15:08:00 EST, Height, 68.5, kg, 06/03/20 13:18:00 EST, Dry Weight Start Date: 10/03/21 Status: Ordered cyanocobalamin 1000 mcg/ml injectable solution 1 mL = 1,000 mcg, Intramuscular, Every 30 days, # 3 mL, 6 Refills, Maintenance, 06/15/20 11:56:00 EST, Solution, [facility], 155, cm, 06/03/20 13:15:00 EST, Height, 68.5, kg, 06/03/20 13:18:00 EST, Dry Weight Start Date: 06/15/20 Status: Ordered dilTIAZem 240 mg/24 hours oral tablet, extended release 1 tablet = 240 mg, By Mouth, Daily, FURTHER REFILLS BY ROOM SERVICE MANAGER, # 90 tablet, 0 Refills, Maintenance, 11/27/19 8:57:00 EDT, ER Tablet, [facility], 155, cm, 10/07/19 12:25:00 EDT, Height, 63, kg, 07/01/19 19:58:00 EST, Dry Weight Start Date: 11/27/19 Status: Ordered Flovent HFA 110 mcg/inh inhalation aerosol 2 puffs, Inhalation, 2 times a day, # 12 Gm, 0 Refills, Maintenance, 10/05/21 13:23:00 EST, Aerosol, [facility], Partial fill upon patient request [...] 11/16/21 23:51:00 EDT, Route to Pharmacy Electronically, [facility], Partial fill upon patient request if the prescription is... Start Date: 11/16/21 Status: Ordered LORazepam 0.5 mg oral tablet See Instructions, TAKE 1 TABLET BY MOUTH TWO TIMES A DAY NEEDED FOR ANXIETY, # 28 tablet, 2 Refills, Maintenance, 05/06/20 15:17:00 EDT, [facility], 155, cm, 05/03/20 18:55:00 [...] Refills, Maintenance, 11/16/21 23:51:00 EDT, DIS Tablet, [facility], Partial fill upon patient request [...] 3 Refills, Maintenance, 10/25/21 11:13:00 EDT, Capsule, [facility], Partial fill upon patient request [...] Active Bilateral leg pain(Confirmed) Active *BHN/CCA/CC-Matias Vela- [phone]/Health long-term, active care coordination(Confirmed) Active POTS (postural orthostatic t achycardia syndrome)(Confirmed) Active Medulloblastoma(Confirmed) Active RUQ pain(Confirmed) Active Social History Social History Type Response Smoking Status Never smoker; Tobacc o user in household: No entered on: 04/11/16 Sex Female
--- OUTSIDE RECORDS SUMMARY | 2024-04-27 10:12 | XMS_ITS | Continuity of Care Document ---
Author Organization [facility] Address [address], [address], [address] [place] [address]- Care Team Providers Care Print Production Associate Name Role Phone Mary KEATING, Sisi Almanza Primary Care Physician [phone] En[place] [facility] [place] Date(s): 11/25/20 - 12/25/20 [facility] [address], [address], [address] [place] [id number] Allergies, Adverse Reactions, Alerts Substance [...] 12/22/20 12:53:00 EDT, Route to Pharmacy Electronically, [facility] Tablet, Partial fill upon patient request if the... Start Date: 12/22/20 Stop Date: 01/21/21 Status: Ordered albuterol CFC free 90 mcg/inh inhalation aerosol 2, puffs, Inhalation, Every 6 hours, PRN, # 2 each, Refills 11, Tot. Refills 11, Maintenance, 12/02/20 8:50:00 EDT, Aerosol, Route to Pharmacy Electronically, [id number], [facility], 155, cm, 06/03/20 13:15:00 [...] 6 Refills, Maintenance, 06/15/20 11:56:00 EST, Solution, [facility], 155, cm, 06/03/20 13:15:00 EST, Height, 68.5, kg, 06/03/20 13:18:00 EST, Dry Weight Start Date: 06/15/20 Status: Ordered dilTIAZem 240 mg/24 hours oral tablet, extended release 1 tablet = 240 mg, By Mouth, Daily, FURTHER REFILLS BY SERVICE OFFICER, # 90 tablet, 0 Refills, Maintenance, 11/27/19 8:57:00 EDT, ER Tablet, [facility], 155, cm, 10/07/19 12:25:00 EDT, Height, [...] 15:17:00 EDT, [facility], 155, cm, 05/03/20 18:55:00 EDT, Height, [...] 15:30:53 EST, Aerosol, Route to Pharmacy Electronically, [id number]... Start Date: 09/12/18 Stop Date: 02/09/19 Status: Ordered ProAir HFA 90 mcg/inh inhalation aerosol with adapter 2, puffs, Inhalation, Every 4 hours, PRN, use with spacer chamber BRAND NAME MEDICALLY NECESSARY, #8.5 Gm, Refills 0, Tot. Refills 0, Maintenance, 12/05/20 15:38:00 EDT, Aerosol, Route to Pharmacy Electronically, [id number]... Start Date: 12/05/20 Status: Ordered ramelteon 8 mg oral tablet 1 tablet = 8 mg, By Mouth, Daily at bedtime, # 30 tablet, 11 Refills, Maintenance, 12/02/20 8:48:00EDT, [facility], Partial fill upon patient [...] 2 Refills, Maintenance, 08/04/20 12:39:00 EST, Capsule, [facility], Partial fill upon patient [...] Active Bilateral leg pain(Confirmed) Active *BHN/CCA/CC-Matias Vela- [phone]/Health assisted, active care coordination(Confirmed) Active POTS (postural orthostatic t achycardia syndrome)(Confirmed) Active Medulloblastoma(Confirmed) Active RUQ pain(Confirmed) Active Viral URI(Confirmed) Active Social History Social History Type Response Smoking Status Never smoker; Tobacc o user in household: No entered on: 04/11/16 Sex
--- OUTSIDE RECORDS SUMMARY | 2024-04-27 10:12 | XMS_ITS | Continuity of Care Document ---
Author Organization [facility] Address [address] [place] [address]- Care Team Providers Care Bath House Attendant Name Role Phone Sisi Hernandez MD Primary Care Physician [phone] En[place] [facility] [place] Date(s): 12/22/20 - 01/21/21 [facility] [address] [place], [place] [address] Allergies, Adverse Reactions, Alerts Substance [...] 8:50:00 EDT, Aerosol, Route to Pharmacy Electronically, [id number], [facility], 155, cm, 06/03/20 [...] mg, By Mouth, Daily, FURTHER REFILLS BY RESPIRATORY THERAPY DIRECTOR, # 90 tablet, 0 Refills, Maintenance, 11/27/19 8:57:00 EDT, ER Tablet, [facility], 155, cm, 10/07/19 12:25:00 [...] Maintenance, 05/06/20 15:17:00 EDT, [facility], 155, cm, 05/03/20 18:55:00 EDT, Height, [...] 15:30:53 EST, Aerosol, Route to Pharmacy Electronically, [id number]... Start Date: 09/12/18 Stop Date: 02/09/19 Status: Ordered ProAir HFA 90 mcg/inh inhalation aerosol with adapter 2, puffs, Inhalation, Every 4 hours, PRN, use with spacer chamber BRAND NAME MEDICALLY NECESSARY, #8.5 Gm, Refills 0, Tot. Refills 0, Maintenance, 12/05/20 15:38:00 EDT, Aerosol, Route to Pharmacy Electronically, [id number]... Start Date: 12/05/20 Status: Ordered ramelteon 8 [...] Active Bilateral leg pain(Confirmed) Active *BHN/CCA/CC-Matias Vela- [phone]/Health fpc, active care coordination(Confirmed) Active POTS (postural orthostatic t achycardia syndrome)(Confirmed) Active Medulloblastoma(Confirmed) Active RUQ pain(Confirmed) Active Viral URI(Confirmed) Active Social History Social History Type Response Smoking Status Never smoker; Tobacc o user in household: No entered on: 04/11/16 Sex
--- OUTSIDE RECORDS SUMMARY | 2024-04-27 10:12 | XMS_ITS | Continuity of Care Document ---
Author Organization [facility] Address [address] [place] [address]- Care Team Providers Care Outside Sales Account Executive Name Role Phone Mary KEATING, Sisi Almanza Primary Care Physician Encounter [facility] Date(s): 04/12/20 - 05/12/20 [facility] [address] [place] [address]- [facility] Allergies, Adverse Reactions, Alerts Substance Reaction [...] 8:59:00 EDT, Aerosol, Route to Pharmacy Electronically, [id number], [facility], 155, cm, 10/07/19 12:25:00 E... Start [...] 5 Refills, Maintenance, 03/04/20 9:53:00 EDT, Solution, [facility], 155, cm, 10/07/19 12:25:00 EDT, Height, 63, kg, 07/01/19 19:58:00 EST, Dry Weight Start Date: 03/04/20 Status: Ordered dilTIAZem 240 mg/24 hours oral tablet, extended release 1 tablet = 240 mg, By Mouth, Daily, FURTHER REFILLS BY BENCH WORKER HELPER, # 90 tablet, 0 Refills, Maintenance, 11/27/19 8:57:00 EDT, ER Tablet, [facility], 155, cm, 10/07/19 12:25:00 [...] tablet, 2 Refills, Maintenance, 05/06/20 15:17:00 EDT, [facility], 155, cm, 05/03/20 [...] 15:30:53 EST, Aerosol, Route to Pharmacy Electronically, [id number]... Start Date: 09/12/18 Stop Date: 02/09/19 Status: [...] Active Bilateral leg pain(Confirmed) Active *BHN/CCA/CC-Matias Vela- [phone]/Health fdc, active care coordination(Confirmed) Active POTS (postural orthostatic t achycardia syndrome)(Confirmed) Active Medulloblastoma(Confirmed) Active RUQ pain(Confirmed) Active Social History Social History Type Response Smoking Status Never smoker; Tobacc o user in household: No entered on: 04/11/16 Sex
--- OUTSIDE RECORDS SUMMARY | 2024-04-27 10:12 | XMS_ITS | Continuity of Care Document ---
Author Organization [facility] Address [address] [place] [address]- Care Team Providers Care Data Collection Interviewer Name Role Phone Sisi Hernandez MD Primary Care Physician [phone] [place] [facility] - 02/07/22 [facility] [address] [place], [place] [address] Allergies, Adverse Reactions, Alerts Substance [...] 11/16/21 23:51:00 EDT, Route to Pharmacy Electronically, [facility], Partial fill upon patient request if the presc... Start Date: 11/16/21 Status: Ordered albuterol CFC free 90 mcg/inh inhalation aerosol 2, puffs, Inhalation, Every 6 hours, PRN, # 2 each, Refills 11, Tot. Refills 11, Maintenance, 10/05/21 9:52:00 EST, Aerosol, Route to Pharmacy Electronically, [id number], [facility], ONLY ALBUTEROL HFA, [...] 6 Refills, Maintenance, 10/03/21 12:18:00 EST, Solution, [facility] 3, 155, cm, 09/27/21 15:08:00 EST, Height, 68.5, kg, 06/03/20 13:18:00 EST, Dry Weight Start Date: 10/03/21 Status: Ordered cyanocobalamin 1000 mcg/ml injectable solution 1 mL = 1,000 mcg, Intramuscular, Every 30 days, # 3 mL, 6 Refills, Maintenance, 06/15/20 11:56:00 EST, Solution, [facility] 3, 155, cm, 06/03/20 13:15:00 EST, Height, 68.5, kg, 06/03/20 13:18:00 EST, Dry Weight Start Date: 06/15/20 Status: Ordered dilTIAZem 240 mg/24 hours oral tablet, extended release 1 tablet = 240 mg, By Mouth, Daily, FURTHER REFILLS BY PUBLIC INFORMATION DIRECTOR, # 90 tablet, 0 Refills, Maintenance, 11/27/19 8:57:00 EDT, ER Tablet, [facility] 3, 155, cm, 10/07/19 12:25:00 EDT, Height, 63, kg, 07/01/19 19:58:00 EST, Dry Weight Start Date: 11/27/19 Status: Ordered Flovent HFA 110 mcg/inh inhalation aerosol 2 puffs, Inhalation, 2 times a day, # 12 Gm, 0 Refills, Maintenance, 10/05/21 13:23:00 EST, Aerosol, [facility], Partial fill upon [...] 11/16/21 23:51:00 EDT, Route to Pharmacy Electronically, [facility], Partial fill upon patient request if the prescription is... Start Date: 11/16/21 Status: Ordered LORazepam 0.5 mg oral tablet See Instructions, TAKE 1 TABLET BY MOUTH TWO TIMES A DAY NEEDED FOR ANXIETY, # 28 tablet, 2 Refills, Maintenance, 05/06/20 15:17:00 EDT, [facility], 155, cm, [...] Refills, Maintenance, 11/16/21 23:51:00 EDT, DIS Tablet, [facility], Partial fill upon patient request if the prescription is for a schedule II o... Start Date: 11/16/21 Status: Ordered Peridex 0.12% liquid 15 mL = 0.018 Gm, By Mouth, 2 times a day, # 420 mL, 0 Refills, Maintenance, 01/18/22 8:47:00 EDT, Liquid, [facility], Partial fill upon patient request [...] 3 Refills, Maintenance, 10/25/21 11:13:00 EDT, Capsule, [facility], Partial fill upon patient request if [...] Active Bilateral leg pain(Confirmed) Active *BHN/CCA/CC-Matias Vela- [phone]/Health nursing home, active care coordination(Confirmed) Active POTS (postural orthostatic t achycardia syndrome)(Confirmed) Active Medulloblastoma(Confirmed) Active RUQ pain(Confirmed) Active Social History Social History Type Response Smoking Status Never smoker; Tobacc o user in household: No entered on: 04/11/16 Sex Female
--- OUTSIDE RECORDS SUMMARY | 2024-04-27 10:12 | XMS_ITS | Continuity of Care Document ---
Author Organization [facility] ter Address [address] [place] [id number]- Care Team Providers Care [employer] Field Processing Supervisor Name Role Phone Sisi Hernandez MD Primary Care Physician Encounter [facility] Date(s): 06/07/23 - 06/08/23 [facility] [address] [place] [id number]- Discharge Disposition: A-D/C Walkout Attending Physician: Not on Staff, Attending MD Admitting Physician: Not on Staff, Admitting MD Referring Physician: Not on Staff, Referring [...] Maintenance, 12/21/22 14:40:00 EDT, ER Capsule, [facility], Partial fill upon patient request if the prescription is for a schedule II opioid drug., 155, cm, 12/05/22 11:... Start Date: 12/21/22 Status: Ordered albuterol CFC free 90 mcg/inh inhalation aerosol 2, puffs, Inhalation, Every 6 hours, PRN, # 2 each, Refills 11, Tot. Refills 11, Maintenance, 02/15/22 13:12:00 EDT, Aerosol, Route to Pharmacy Electronically, [id number], [facility], ONLY ALBUTEROL HFA, CANCEL... Start Date: 02/15/22 Stop Date: 02/10/23 Status: Ordered Colace sodium 100 mg oral capsule 100 mg, 1, capsule, By Mouth, 2 times a day, PRN, # 30 capsule, Refills 0, Tot. Refills 0, Maintenance, for constipation, 07/31/22 11:03:00 EST, Route to Pharmacy Electronically, [facility], Partial fill upon patient request [...] 6 Refills, Maintenance, 09/04/22 8:50:00 EST, Solution, [facility], 155, cm, 08/14/22 13:52:00 EST, [...] 0 Refills, Maintenance, 02/15/22 13:10:00 EDT, Aerosol, [facility], new dosage, 155, cm, [...] 07/31/22 11:03:00 EST, Route to Pharmacy Electronically, [facility], Partial fill upon patient request if the prescription is for a schedule... Start Date: 07/31/22 Status: Ordered LORazepam 0.5 mg oral tablet See Instructions, TAKE 1 TABLET BY MOUTH TWO TIMES A DAY NEEDED FOR ANXIETY, # 28 tablet, 2 Refills, Maintenance, 12/05/22 12:25:00 EDT, [facility], 155, cm, 12/05/22 [...] 0 Refills, Maintenance, 08/01/22 6:06:00 EST, Tablet, [facility], Partial fill upon patient request if the prescription is for a schedule II opioid drug., 155, cm,... Start Date: 08/01/22 Status: Ordered Symbicort 160mcg/4.5mcg Inhaler 2, puffs, Inhalation, 2 times a day, # 3 each, Refills 5, Tot. Refills 5, Maintenance, 09/27/22 12:00:00 EST, Aerosol, Route to Pharmacy Electronically, [id number], [facility], replaces flovent inhaler, 155, cm,... Start Date: 09/27/22 Status: Ordered syringe and needles syringe and needles, See Instructions, # 12 Unknown, Refills 3, Tot. Refills 3, Maintenance, syringe 3cc needles 25 g X 5/8 inches for use with b12, 03/04/20 9:54:00 EDT, Compound, 155, cm, 03/11/20 12:25:00 EDT, Height, 63, kg, 07/01/19 19:58:00 EST... Start Date: 03/04/20 Status: Ordered Tylenol 325 mg oral tablet 975 mg, 3, tablet, By Mouth, Every 6 hours, PRN, # 50 tablet, Refills 0, Tot. Refills 0, Maintenance, for pain, 07/31/22 11:03:00 EST, Route to Pharmacy Electronically, [facility], Partial fill upon patient request if the prescription is... Start Date: 07/31/22 Status: Ordered verapamil 240 mg/12 hours oral tablet, extended release TAKE 1 TABLET BY MOUTH DAILY. Start Date: 02/05/23 Status: Ordered Vitamin D3 50,000 intl units oral capsule 1 capsule = 1,250 mcg, By Mouth, Every week, # 13 capsule, 1 Refills, Maintenance, 05/17/23 17:07:00 EDT, Capsule, [facility], Partial fill upon patient [...] Bilateral leg pain Confirmed Active *BHN/CCA/CC-Matias Vela- [phone]/Health correction, active care coordination Confirmed Active POTS (postural orthostatic tachycardia syndrome) Confirmed Active Medulloblastoma Confirmed Active RUQ pain Confirmed Active Tachy-sharmin syndrome Confirmed Active Vital Signs Most recent to oldest [Reference Range]: 1 2 Height 155 cm (06/07/23 8:58 PM) Weight 68.3 kg (06/07/23 8:58 PM) Oxygen Saturation [94-100 %] 100 % (11/10/23 11:58 PM) 100 % (06/07/23 8:58 PM) Pulse Rate [55-90 bpm] 95 bpm *H* (06/07/23 11:58 PM) 105 bpm *H* (06/07/23 8:58 PM) Body Mass Index [18.5-24.99 kg/m2] 28.43 kg/m2 *H* (06/07/23 8:58 PM) Blood Pressure [90-138/55-84 mm Hg] 121/ 70mm Hg (06/07/23 11:58 PM) 127/80mm Hg (06/07/23 8:58 PM) Respiratory Rate [16-30 br/min] 16 br/mi n (06/07/23 8:58 PM) Temperature [96.8-100.4 DegF] 98.6 DegF (06/07/23 11:58 PM) 98.7 DegF (06/07/23 8:58 PM) Mode of Delivery (Oxygen) Room air (06/07/23 8:58 PM) Blood pressure sites Arm, right (06/07/23 11:58 PM) Arm, left (06/07/23 8:58 PM) Temperature Route Oral (06/07/23 11:58 PM) Oral (06/07/23 8:58 PM) Dry Weight 68.3 kg (06/07/23 8:58 PM) Weight Obtained Via Standing scale (06/07/23 8:58 PM) Dry Weight Obtained Via Standing scale (06/07/23 8:58 PM) Social History Social History Type Response Smoking Status Never smoker; Tobacc o user in household: No entered on: 04/11/16 Sex EKG study * Event Display: EKG Authored Date: * Event Display: ECG 12-Lead Authored Date: Please click on pdf link to open report * Event Display: ECG 12-Lead Authored Date: Ventricular Rate: 109 BPM Atrial Rate: 109 BPM P-R Interval: 120 ms QRS Duration: 70 ms Q-T Interval: 330 ms QTC Calculation(Bazett): 444 ms P [place]: 38 degrees R [place]: 49 degrees T [place]: 24 degrees Sinus tachycardia Nonspecific ST abnormality Abnormal ECG When compared with ECG of 14-MAR-2023 19:21, No significant change was found Confirmed by TACHO TRIANA ([id number]) on 06/08/2023 1:42:43 PM Petroleum: TACHO TRIANA Patient Care team information Care Team Personnel Name: Vidhya Grace RN Position: [facility] RN Member Role: Primary Care Nurse Name: Sisi Hernandez MD Position: [facility] Physician - Primary Care Member Role: PCP Address: Address: [address] [place] [address] - Name: Lizzette To RN Position: [facility] SN RN Member Role: Primary Care Nurse Name: Karolina Adkins MD Position: [facility] Physician - Primary Care Member Role: Lifetime Consulting Physician Address: Address: [address] [place] [address] [facility] [place], [place] [facility] Name: sIadora Godfrey RN Position: [facility] RN Member Role: Primary Care Nurse Name: Rossy Rowe RN Position: [facility] SN RN Member Role: Primary Care Nurse Name: Cindi Hayward Position: [facility] RN Member Role: Primary Care Nurse Name: Bela Mcmahon RN Position: [facility] Hospital Pattern Illustrator Member Role: Primary Care Nurse Name: Nicole Hernandez RN Position: [facility] RN Member Role: Primary Care Nurse Name: Zac Castillo RN Position: [facility] ED RN W/OE and Tasks Member Role: Primary Care Nurse Name: Jeanne Grande RN Position: [facility] RN Member Role: Primary Care Nurse Care Team Related Persons Name: BEAR TURNER Address: home [address] [place], [place] Name: BEAR TURNER SECONDARY Address: home [address] [place] [address] Name: ISATU ECKERT Address: [place] [address] Name: ISAAC VERDE PRIMARY Address: home [address] [place], [place] Name: ADRY DURANT Name: PANCHO JEROME Address: [place] [address]
--- OUTSIDE RECORDS SUMMARY | 2024-04-27 10:12 | XMS_ITS | Continuity of Care Document ---
Author Organization [facility] Address [address] [place] [id number]- Care Team Providers Care Child Adolescent Care Name Role Phone Mary KEATING, Sisi Almanza Primary Care Physician [phone] Encounter [facility] Date(s): 09/12/22 - 10/12/22 [facility] [address] [place], [place] [address] Attending Physician: Angel Gomez Admitting Physician: Angel [...] 13:12:00 EDT, Aerosol, Route to Pharmacy Electronically, [id number], [facility], ONLY ALBUTEROL HFA, CANCEL... Start Date: 02/15/22 Stop Date: 02/10/23 Status: Ordered Colace sodium 100 mg oral capsule 100 mg, 1, capsule, By Mouth, 2 times a day, PRN, # 30 capsule, Refills 0, Tot. Refills 0, Maintenance, for constipation, 07/31/22 11:03:00 EST, Route to Pharmacy Electronically, [facility], Partial fill upon [...] 6 Refills, Maintenance, 09/04/22 8:50:00 EST, Solution, [facility], 155, cm, 08/14/22 [...] 0 Refills, Maintenance, 02/15/22 13:10:00 EDT, Aerosol, [facility], new dosage, 155, [...] 07/31/22 11:03:00 EST, Route to Pharmacy Electronically, [facility], Partial fill upon patient request if the prescription is for a schedule... Start Date: 07/31/22 Status: Ordered LORazepam 0.5 mg oral tablet See Instructions, TAKE 1 TABLET BY MOUTH TWO TIMES A DAY NEEDED FOR ANXIETY, # 28 tablet, 2 Refills, Maintenance, 06/06/22 10:45:00 EST, [facility], 155, cm, [...] Refills, Maintenance, 08/01/22 6:06:00 EST, REC Powder, [facility], Partial fill upon [...] 0 Refills, Maintenance, 08/01/22 6:06:00 EST, Tablet, [facility], Partial fill upon patient request if the prescription is for a schedule II opioid drug., 155, cm,... Start Date: 08/01/22 Status: Ordered Symbicort 160mcg/4.5mcg Inhaler 2, puffs, Inhalation, 2 times a day, # 3 each, Refills 5, Tot. Refills 5, Maintenance, 09/27/22 12:00:00 EST, Aerosol, Route to Pharmacy Electronically, [id number], [facility], replaces flovent inhaler, 155, [...] 07/31/22 11:03:00 EST, Route to Pharmacy Electronically, [facility], Partial fill upon [...] 3 Refills, Maintenance, 06/05/22 14:27:00 EST, Capsule, [facility], Partial fill upon [...] Bilateral leg pain Confirmed Active *BHN/CCA/CC-Matias Vela- [phone]/Health long-term, active care coordination Confirmed Active POTS (postural orthostatic tachycardia syndrome) Confirmed Active Medulloblastoma Confirmed Active RUQ pain Confirmed Active Social History Social History Type Response Smoking Status Never smoker; Tobacc o user in household: No entered on: 04/11/16 Sex Note * Event Display: IR Special Procedures, Non-BH Authored Date: Patient Care team information Care Team Personnel Name: Vidhya Grace RN Position: [facility] RN Member Role: Primary Care Nurse Name: Sisi Hernandez MD Position: [facility] Primary Care Physician Member Role: PCP Address: Address: [address] [place] [address]- Name: Lizzette To RN Position: [facility] RN Member Role: Primary Care Nurse Name: Karolina Adkins MD Position: [facility] Physician -Physician Practices Member Role: Lifetime Consulting Physician Address: Address: [address] [place] [address] [facility] [address] Name: Isadora Godfrey RN Position: [facility] RN Member Role: Primary Care Nurse Name: Rossy Rowe RN Position: [facility] SN RN Member Role: Primary Care Nurse Name: Cindi Hayward Position: [facility] RN Member Role: Primary Care Nurse Name: Bela Mcmahon RN Position: [facility] Hospital Director Manufacturing Engineering Member Role: Primary Care Nurse Name: Nicole Hernandez RN Position: [facility] RN Member Role: Primary Care Nurse Name: Zac Castillo RN Position: [facility] ED RN W/OE and Tasks Member Role: Primary Care Nurse Name: Jeanne Grande RN Position: [facility] RN Member Role: Primary Care Nurse Care Team Related Persons Name: KATHRYN TURNERY Address: home [address] [place] [address] Name: BEAR TURNER SECONDARY Address: [address] Name: ISATU ECKERT Address: [place] [address] Name: ISAAC VERDE PRIMARY Address: [address] Name: ADRY DURANT Name: PANCHO JEROME Address: [place] [address]
--- OUTSIDE RECORDS SUMMARY | 2024-04-27 10:12 | XMS_ITS | Continuity of Care Document ---
Author Organization [facility] Address [address], [address] [place] [address]- Care Team Providers Care Engineer Byproduct Name Role Phone Sisi Hernandez MD Primary Care Physician [phone] [id number] [address] [facility]th Floor [place], [place] [address] Attending Physician: Jacqueline Moura MD Admitting Physician: Jacqueline Moura MD Referring Physician: Jacqueline Moura MD Allergies, Adverse Reactions, Alerts Substance Reaction [...] Refills, Maintenance, 12/21/22 14:40:00 EDT, ER Capsule, [facility], Partial fill upon patient request if the prescription is for a schedule II opioid drug., 155, cm, 12/05/22 11:... Start Date: 12/21/22 Status: Ordered albuterol CFC free 90 mcg/inh inhalation aerosol 2, puffs, Inhalation, Every 6 hours, PRN, # 2 each, Refills 11, Tot. Refills 11, Maintenance, 02/15/22 13:12:00 EDT, Aerosol, Route to Pharmacy Electronically, [id number], [facility], ONLY ALBUTEROL HFA, CANCEL... Start Date: 02/15/22 Stop Date: 02/10/23 Status: Ordered Colace sodium 100 mg oral capsule 100 mg, 1, capsule, By Mouth, 2 times a day, PRN, # 180 capsule, Refills 3, Tot. Refills 3, Maintenance, for constipation, 08/09/23 14:49:00 EST, Route to Pharmacy Electronically, [facility], Partial fill upon patient request if [...] 6 Refills, Maintenance, 08/07/23 13:45:00 EST, Solution, [facility], 155, cm, 06/07/23 20:58:00 [...] 0 Refills, Maintenance, 02/15/22 13:10:00 EDT, Aerosol, [facility], new dosage, 155, [...] 07/31/22 11:03:00 EST, Route to Pharmacy Electronically, [facility], Partial fill upon patient request if the prescription is for a schedule... Start Date: 07/31/22 Status: Ordered LORazepam 0.5 mg oral tablet See Instructions, TAKE 1 TABLET BY MOUTH TWO TIMES A DAY NEEDED FOR ANXIETY, # 28 tablet, 2 Refills, Maintenance, 12/05/22 12:25:00 EDT, [facility], [...] 0 Refills, Maintenance, 08/01/22 6:06:00 EST, Tablet, [facility], Partial fill upon patient request if the prescription is for a schedule II opioid drug., 155, cm,... Start Date: 08/01/22 Status: Ordered Symbicort 160mcg/4.5mcg Inhaler 2, puffs, Inhalation, 2 times a day, # 3 each, Refills 5, Tot. Refills 5, Maintenance, 09/27/22 12:00:00 EST, Aerosol, Route to Pharmacy Electronically, [id number], [facility], replaces flovent inhaler, 155, [...] 07/31/22 11:03:00 EST, Route to Pharmacy Electronically, [facility], Partial fill [...] Refills, Maintenance, 08/14/23 13:38:00 EST, Chew Tablet, [facility], Partial fill upon patient request if the prescription is for a schedule II opioid drug., 155, cm, 08/14/23 13:0... Start Date: 08/14/23 Status: Ordered Vitamin D3 50,000 intl units oral capsule 1 capsule = 1,250 mcg, By Mouth, Every week, # 13 capsule, 1 Refills, Maintenance, 05/17/23 17:07:00 EDT, Capsule, [facility], Partial fill upon patient request if [...] Bilateral leg pain Confirmed Active *BHN/CCA/CC-Matias Vela- [phone]/Health group home, active care coordination Confirmed Active [...] Hernandez MD Position: [facility] Physician - Primary Care Member Role: PCP Address: Address: [address] [place] [address] [facility] Name: Lizzette To RN Position: [facility] SN RN Member Role: Primary Care Nurse Name: Karolina Adkins MD Position: [facility] Physician - Primary Care Member Role: Lifetime Consulting Physician Address: Address: [address] [place] [address] Ger[facility] Pall[facility] Care [place] [facility] Name: Isadora Godfrey RN Position: [facility] RN Member Role: Primary Care Nurse Name: Rossy Rowe RN Position: [facility] SN RN Member Role: Primary Care Nurse Name: Cindi Hayward RN Position: [facility] RN Member Role: Primary Care Nurse Name: Bela Mcmahon RN Position: [facility] Hospital Stablehand Member Role: Primary Care Nurse Name: Nicole [...] Persons Name: BEAR TURNER Address: home [address] [place], [place] Name: BEAR TURNER SECONDARY Address: home [address] [place], [place] Name: ISATU ECKERT Address: home [place], [place] Name: ISAAC VERDE PRIMARY Address: [address] [place], [place] Name: ADRY DURANT Name: PANCHO [place]OME Address: [place] [address]
--- OUTSIDE RECORDS SUMMARY | 2024-04-27 10:13 | XMS_ITS | Continuity of Care Document ---
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 Start Date: 12/21/22 Status: Ordered albuterol CFC free 90 mcg/inh inhalation aerosol 2, puffs, Inhalation, Every 6 hours, PRN, # 2 each, Refills 11, Tot. Refills 11, Maintenance, 02/15/22 13:12:00 EDT, Aerosol, Route to Pharmacy Electronically, [id number], [facility], ONLY ALBUTEROL HFA, CANCEL... Start Date: 02/15/22 Stop Date: 02/10/23 Status: Ordered Colace sodium 100 mg oral capsule 100 mg, 1, capsule, By Mouth, 2 times a day, PRN, # 30 capsule, Refills 0, Tot. Refills 0, Maintenance, for constipation, 07/31/22 11:03:00 EST, Route to Pharmacy Electronically, [facility], Partial fill upon patient [...] 6 Refills, Maintenance, 09/04/22 8:50:00 EST, Solution, [facility], 155, cm, 08/14/22 13:52:00 [...] 0 Refills, Maintenance, 02/15/22 13:10:00 EDT, Aerosol, [facility], new dosage, 155, cm, [...] 07/31/22 11:03:00 EST, Route to Pharmacy Electronically, [facility], Partial fill upon patient request if the prescription is for a schedule... Start Date: 07/31/22 Status: Ordered LORazepam 0.5 mg oral tablet See Instructions, TAKE 1 TABLET BY MOUTH TWO TIMES A DAY NEEDED FOR ANXIETY, # 28 tablet, 2 Refills, Maintenance, 12/05/22 12:25:00 EDT, [facility], 155, cm, 12/05/22 11:40:00 EDT, Height, 68.1, kg, 08/14/22 13:52:00 EST, Dry Weight Start Date: 12/05/22 Status: Ordered Metoprolol Tartrate 50 mg oral tablet 0 Refills, Maintenance, 03/04/20 9:58:00 EDT Start Date: 03/04/20 Status: Ordered MiraLax oral powder for reconstitution = 17 Gm, By Mouth, Daily, dissolve in water before taking, # 255 Gm, 0 Refills, Maintenance, 08/01/22 6:06:00 EST, REC Powder, [facility], Partial fill upon patient request if [...] 0 Refills, Maintenance, 08/01/22 6:06:00 EST, Tablet, [facility], Partial fill upon patient request if the prescription is for a schedule II opioid drug., 155, cm,... Start Date: 08/01/22 Status: Ordered Symbicort 160mcg/4.5mcg Inhaler 2, puffs, Inhalation, 2 times a day, # 3 each, Refills 5, Tot. Refills 5, Maintenance, 09/27/22 12:00:00 EST, Aerosol, Route to Pharmacy Electronically, [id number], [facility], replaces flovent inhaler, 155, cm,... [...] 07/31/22 11:03:00 EST, Route to Pharmacy Electronically, [facility], Partial fill upon patient [...] Bilateral leg pain Confirmed Active *BHN/CCA/CC-Matias Vela- [phone]/Health fdc, active care coordination Confirmed Active POTS (postural orthostatic tachycardia syndrome) Confirmed Active Medulloblastoma Confirmed Active RUQ pain Confirmed Active Tachy-sharmin syndrome Confirmed Active Diagnosis Diagnosis Type Effective Dates Health Status Clinical Service Informant Anxiety Discharge Diagnosis 02/05/23 B12 deficiency Discharge Diagnosis 02/05/23 Hemoptysis Discharge Diagnosis 02/05/23 Narcolepsy and cataplexy Discharge Diagnosis 02/05/23 Tachy-sharmin syndrome Discharge Diagnosis 02/05/23 Vital Signs Most recent to oldest [Reference Range]: 1 Height 155 cm (02/05/23 1:45 PM) Weight 67.3 kg (02/05/23 1:45 PM) Oxygen Saturation [94-100 %] 100 % (02/05/23 1:45 PM) Pulse Rate [55-90 bpm] 84 bpm (02/05/23 1:45 PM) Body Mass Index [18.5-24.99 kg/m2] 28.01 kg/m2 *H* (02/05/23 1:45 PM) Blood Pressure [90-138/55-84 mm Hg] 110/ 76mm Hg (02/05/23 1:45 PM) Temperature [96.8-100.4 DegF] 97.7 DegF (02/05/23 1:45 PM) Mode of Delivery (Oxygen) Room air (02/05/23 1:45 PM) Blood pressure sites Arm, left (02/05/23 1:45 PM) Temperature Route Temporal (02/05/23 1:45 PM) Weight Obtained Via Standing scale (02/05/23 1:45 PM) Social History Social History Type Response Smoking Status Never smoker; Tobacc o user in household: No entered on: 04/11/16 Sex Note * Karissa Howell: PERFORM, SIGN, VERIFY Event Display: Patient Education/Instruction Authored Date: [id number] [facility] *No Edge Adult Ped Clinical Summary Name ANSELMO TURNER Age 32 Years 1990 PCP Mary KEATING, Sisi Almanza PCP Visit Date 02/05/2023 13:39:00 Additional Instructions: Scheduled Appointments?? Future Appointments ?*[facility] [address],??[place],??[address] ?Phone:??--?Fax:??-- ?Appt. Date:??04/23/2023?2:00 PM ?Scheduled Provider:??Donny Savage Psy.D. ?*[facility] ?[address],??[place],??[address] ?Phone:??--?Fax:??-- ?Appt. Date:??04/30/2023?9:00 AM ?Scheduled Provider:??Donny Savage Psy.D. Follow-Up Instructions ?? Diagnosis Medications: Please continue your medications until treatment is completed or stopped by your provider. Discuss any questions related to medications with your provider. Medications to Continue Taking That Have Changed These medications were not printed or sent to your pharmacy - Verapamil (verapamil 240 mg/12 hours oral tablet, extended release) TAKE 1 TABLET BY MOUTH DAILY.. Next Dose: Medications to Continue with No Changes These [...] needed for constipation. Refills: 0. Next Dose: Contact Your Physician Prior to Taking the Following Medications Cholecalciferol (Vitamin D3 1000 intl units oral capsule) 1 capsule Oral Daily. Refills: 3. Allergy Info:?? Sertraline Hydrochloride; Fruit; vancomycin; cefoxitin Medications Given This Visit Future Orders ?No future orders Vital Signs Height 155 cm Weight 67.3 kg BMI 28.01 kg/m2 Blood Pressure 110 mm Hg/76 mm Hg Temperature 97.7 DegF Pulse Rate 84 bpm Respiratory Rate 02 Sat Mode of Delivery 100 %/Room air You can now view a summary of your hospital visit from the comfort of your home through a free online portal called Wedit. Wedit is a website that allows you to securely view your medical information including discharge summary, medications and follow-up visits. ??You can alsosend a secure electronic message to your doctor???s office to request appointments, renew medications or just ask a question. You can enroll at [email or web address] or register during your next office visit. [...] primary care provider, you may find a [facility] provider by calling [facility] at [phone]. For information about the plan of care [...] Team Personnel Name: Vidhya Grace RN Position: [facility]ino RN Member Role: Primary Care Nurse Name: Sisi Hernandez MD Position: S Physician - Primary Care Member Role: PCP Address: Address: [address] [place] [id number] Name: Lizzette To RN Position: [facility] RN Member Role: Primary Care Nurse Name: Karolina Adkins MD Position: [facility] Physician - Primary Care Member Role: Lifetime Consulting Physician Address: Address: [address] [place] [address] Geriatric [facility] [place] [address]- Name: Rossy Rowe RN Position: [facility] SN RN Member Role: Primary Care Nurse Name: Cindi Hayward Position: [facility] RN Member Role: Primary Care Nurse Name: Bela Mcmahon RN Position: [facility] Hospital Glass Novelty Maker Member Role: Primary Care Nurse Name: Nicole [...] Related Persons Name: BEAR TURNER Address: home [address] [place] [address] Name: BEAR TURNER SECONDARY Address: home [address] [place] [address] Name: ISATU ECKERT Address: [place] [address] Name: ISAAC VERDE PRIMARY Address: home [address] [place] [address] Name: ADRY DURANT Name: PANCHO JEROME Address: [place] [address]
--- OUTSIDE RECORDS SUMMARY | 2024-04-27 10:13 | XMS_ITS | Continuity of Care Document ---
Author Organization [facility] Address [address] [place] [address]- Care Team Providers Care Shaft Mechanic Name Role Phone Mary KEATING, Sisi Almanza Primary Care Physician [phone] Encounter [facility] Date(s): 10/28/20 - 05/31/[address] [address] Discharge Disposition: A-D/C Home Attending Physician: Kirti [...] 8:50:00 EDT, Aerosol, Route to Pharmacy Electronically, [id number], [facility], 155, cm, 06/03/20 13:15:00 E... [...] By Mouth, Daily, FURTHER REFILLS BY LEAD APPLICATION ARCHITECT, # 90 tablet, 0 Refills, Maintenance, 11/27/19 8:57:00 EDT, [facility], 155, cm, 10/07/19 12:25:00 EDT, [...] tablet, 2 Refills, Maintenance, 05/06/20 15:17:00 EDT, [facility], 155, cm, 05/03/20 18:55:00 EDT, Height, [...] 15:30:53 EST, Aerosol, Route to Pharmacy Electronically, [id number]... Start Date: 09/12/18 Stop Date: 02/09/19 Status: Ordered ProAir HFA 90 mcg/inh inhalation aerosol with adapter 2, puffs, Inhalation, Every 4 hours, PRN, use with spacer chamber BRAND NAME MEDICALLY NECESSARY, #8.5 Gm, Refills 0, Tot. Refills 0, Maintenance, 12/05/20 15:38:00 EDT, Aerosol, Route to Pharmacy Electronically, [id number]... Start Date: 12/05/20 Status: Ordered Sunosi 75 [...] 2 Refills, Maintenance, 08/04/20 12:39:00 EST, Capsule, [facility], Partial fill [...] Active Bilateral leg pain(Confirmed) Active *BHN/CCA/CC-Matias Vela- [phone]/Health fpc, active care coordination(Confirmed) Active POTS (postural orthostatic t achycardia syndrome)(Confirmed) Active Medulloblastoma(Confirmed) Active RUQ pain(Confirmed) Active Viral URI(Confirmed) Active Social History Social History Type Response Smoking Status Never smoker; Tobacc o user in household: No entered on: 04/11/16 Sex
--- OUTSIDE RECORDS SUMMARY | 2024-04-27 10:13 | XMS_ITS | Continuity of Care Document ---
Author Organization [facility] Address [address] [place] [address]- Care Team Providers Care Operations And Maintenance Technican Name Role Phone Sisi Hernandez MD Primary Care Physician Encounter [facility] Date(s): 11/01/23 - 01/24/24 [facility] [address] [address] Attending Physician: Nita Castillo MD Admitting Physician: [...] 13:12:00 EDT, Aerosol, Route to Pharmacy Electronically, [id number], [facility], ONLY ALBUTEROL HFA, CANCEL... Start Date: 02/15/22 Stop Date: 02/10/23 Status: Ordered Colace sodium 100 mg oral capsule 100 mg, 1, capsule, By Mouth, 2 times a day, PRN, # 180 capsule, Refills 3, Tot. Refills 3, Maintenance, for constipation, 08/09/23 14:49:00 EST, Route to Pharmacy Electronically, [facility], Partial fill upon patient [...] 2 Refills, Maintenance, 11/22/23 15:23:00 EDT, Solution, [facility], dose change, 155, cm, [...] 0 Refills, Maintenance, 02/15/22 13:10:00 EDT, Aerosol, [facility], new dosage, 155, cm, [...] 07/31/22 11:03:00 EST, Route to Pharmacy Electronically, [facility], Partial fill upon patient request if the prescription is for a schedule... Start Date: 07/31/22 Status: Ordered ketoconazole 1% topical shampoo See Instructions, Apply 5 to 10 mL to wet scalp, lather, leave on 3 to 5 minutes, and rinse; apply twice weekly for 2 to 4 weeks., # 200 mL, 5 Refills, Maintenance, 11/22/23 15:46:00 EDT, [facility], Partial fill upon patient request if... Start Date: 11/22/23 Status: Ordered ketoconazole 2% topical shampoo 1 application, Topically, Once, Apply 5 to 10 mL to wet scalp, lather, leave on 3 to 5 minutes, andrinse; apply weekly for 2 to 4 weeks., # 120 mL, 4 Refills, Soft Stop, 11/25/23 12:40:00 EDT, Shampoo, [facility], Partial fill upon pat... Start Date: 11/25/23 Status: Ordered LORazepam 0.5 mg oral tablet See Instructions, TAKE 1 TABLET BY MOUTH TWO TIMES A DAY NEEDED FOR ANXIETY, # 28 tablet, 2 Refills, Maintenance, 12/05/22 12:25:00 EDT, [facility], 155, cm, 12/05/22 11:40:00 EDT, Height, [...] 0 Refills, Maintenance, 08/01/22 6:06:00 EST, Tablet, [facility], Partial fill upon patient request if the prescription is for a schedule II opioid drug., 155, cm,... Start Date: 08/01/22 Status: Ordered Symbicort 160mcg/4.5mcg Inhaler 2, puffs, Inhalation, 2 times a day, # 3 each, Refills 5, Tot. Refills 5, Maintenance, 09/27/22 12:00:00 EST, Aerosol, Route to Pharmacy Electronically, [id number], [facility], replaces flovent inhaler, 155, cm,... [...] 07/31/22 11:03:00 EST, Route to Pharmacy Electronically, [facility], Partial fill upon patient request [...] Refills, Maintenance, 08/14/23 13:38:00 EST, Chew Tablet, [facility], Partial fill upon patient request if the prescription is for a schedule II opioid drug., 155, cm, 08/14/23 13:0... Start Date: 08/14/23 Status: Ordered Vitamin D3 50,000 intl units oral capsule 1 capsule = 1,250 mcg, By Mouth, Every week, # 13 capsule, 1 Refills, Maintenance, 05/17/23 17:07:00 EDT, Capsule, [facility], Partial fill upon patient [...] 0 Refills, Maintenance, 11/01/23 14:07:00 EDT, Capsule, [facility], Partial fill u... Start [...] Active Memory change Confirmed Active *BHN/CCA/CC-Matias Vela- [phone]/Health skilled nursing, active care coordination Confirmed Active [...] Primary Care Member Role: PCP Address: Address: [address] [place] [address] Name: Lizzette To RN Position: [facility] SN RN Member Role: Primary Care Nurse Name: Karolina Adkins MD Position: [facility] Physician - Primary Care Member Role: Lifetime Consulting Physician Address: Address: [address] [place] [address] Geriatric & [place] [address]- Name: Isadora Godfrey RN Position: [facility] RN Member Role: Primary Care Nurse Name: Rossy Rowe RN Position: [facility] SN RN Member Role: Primary Care Nurse Name: Cindi Hayward RN Position: [facility] RN Member Role: Primary Care Nurse Name: Bela Mcmahon RN Position: [facility] Hospital Box Repairer Member Role: Primary Care Nurse Name: Nicole Hernandez RN Position: [facility] RN Member Role: Primary Care Nurse Name: Zac Castillo RN Position: [facility] ED RN W/OE and Tasks Member Role: Primary Care Nurse Name: Jeanne Grande RN Position: [facility] RN Member Role: Primary Care Nurse Care Team Related Persons Name: BEAR TURNER Address: home [address] [place] [address] Name: BEAR TURNER SECONDARY Address: home [address] [place] [address] Name: ISATU ECKERT Address: [place] [address] Name: ISAAC VERDE PRIMARY Address: home [address] [place] [address] Name: ADRY DURANT Name: PANCHO JEROME Address: [place] [address]
--- OUTSIDE RECORDS SUMMARY | 2024-04-27 10:13 | XMS_ITS | Continuity of Care Document ---
Author Organization [facility] Address [address] [place] [address]- Care Team Providers Care Prepper Name Role Phone Sisi Hernandez MD Primary Care Physician Encounter [facility] Date(s): 09/26/23 - 10/26/23 [facility] [address] [place], [place] [address] Allergies, Adverse Reactions, Alerts [...] 13:12:00 EDT, Aerosol, Route to Pharmacy Electronically, [id number], [facility], ONLY ALBUTEROL HFA, CANCEL... Start Date: 02/15/22 Stop Date: 02/10/23 Status: Ordered Colace sodium 100 mg oral capsule 100 mg, 1, capsule, By Mouth, 2 times a day, PRN, # 180 capsule, Refills 3, Tot. Refills 3, Maintenance, for constipation, 08/09/23 14:49:00 EST, Route to Pharmacy Electronically, [facility], Partial fill upon patient request if [...] 6 Refills, Maintenance, 08/07/23 13:45:00 EST, Solution, [facility], 155, cm, 06/07/23 20:58:00 EST, [...] 0 Refills, Maintenance, 02/15/22 13:10:00 EDT, Aerosol, [facility], new dosage, 155, cm, 12/08/21 [...] 07/31/22 11:03:00 EST, Route to Pharmacy Electronically, [facility], Partial fill upon patient request if the prescription is for a schedule... Start Date: 07/31/22 Status: Ordered LORazepam 0.5 mg oral tablet See Instructions, TAKE 1 TABLET BY MOUTH TWO TIMES A DAY NEEDED FOR ANXIETY, # 28 tablet, 2 Refills, Maintenance, 12/05/22 12:25:00 EDT, [facility], 155, cm, 12/05/22 11:40:00 [...] 0 Refills, Maintenance, 08/01/22 6:06:00 EST, Tablet, [facility], Partial fill upon patient request if the prescription is for a schedule II opioid drug., 155, cm,... Start Date: 08/01/22 Status: Ordered Symbicort 160mcg/4.5mcg Inhaler 2, puffs, Inhalation, 2 times a day, # 3 each, Refills 5, Tot. Refills 5, Maintenance, 09/27/22 12:00:00 EST, Aerosol, Route to Pharmacy Electronically, [id number], [facility], replaces flovent inhaler, 155, cm,... [...] 07/31/22 11:03:00 EST, Route to Pharmacy Electronically, [facility], Partial [...] Refills, Maintenance, 08/14/23 13:38:00 EST, Chew Tablet, [facility], Partial fill upon patient request if the prescription is for a schedule II opioid drug., 155, cm, 08/14/23 13:0... Start Date: 08/14/23 Status: Ordered Vitamin D3 50,000 intl units oral capsule 1 capsule = 1,250 mcg, By Mouth, Every week, # 13 capsule, 1 Refills, Maintenance, 05/17/23 17:07:00 EDT, Capsule, [facility], Partial fill upon patient request if [...] Bilateral leg pain Confirmed Active *BHN/CCA/CC-Matias Vela- [phone]/Health mcc, active care coordination Confirmed Active POTS [...] Primary Care Member Role: PCP Address: Address: [address] [place] [address] Name: Lizzette To RN Position: [facility] SN RN Member Role: Primary Care Nurse Name: Karolina Adkins MD Position: [facility] Physician - Primary Care Member Role: Lifetime Consulting Physician Address: Address: [address] [place] [address] [facility] [place], [place] [address] Name: Isadora Godfrey RN Position: [facility] RN Member Role: Primary Care Nurse Name: Rossy Rowe RN Position: [facility] SN RN Member Role: Primary Care Nurse Name: Cindi Hayward RN Position: [facility] RN Member Role: Primary Care Nurse Name: Bela Mcmahon RN Position: [facility] Hospital Job Printer Member Role: Primary Care Nurse Name: Nicole Hernandez RN Position: [facility] RN Member Role: Primary Care Nurse Name: Zac Castillo RN Position: [facility] ED RN W/OE and Tasks Member Role: Primary Care Nurse Name: Jeanne Grande RN Position: [facility] RN Member Role: Primary Care Nurse Care Team Related Persons Name: KATHRYN TURNERY Address: home [address] [place], [place] Name: BEAR TURNER SECONDARY Address: home [address] [place], [place] Name: ISATU ECKERT Address: [place] [address] Name: ISAAC VERDE PRIMARY Address: [address] [address] Name: ADRY DURANT Name: PANCHO JEROME Address: [place] [address]
--- OUTSIDE RECORDS SUMMARY | 2024-04-27 10:13 | XMS_ITS | Continuity of Care Document ---
Author Organization [facility] Address [address], 4t [place] [address]- Care Team Providers Care Clip Baker Name Role Phone Sisi Hernandez MD Primary Care Physician Encounter [facility] [place] Date(s): 05/18/22 - 06/17/22 [facility] [address] [place], [place] [address] Attending Physician: Admjuan josé, Angel Admitting Physician: Admtr, [email or web address] Referring Physician: Admtr, Ar8 Allergies, Adverse Reactions, [...] 11/16/21 23:51:00 EDT, Route to Pharmacy Electronically, [facility], Partial fill upon patient request if the presc... Start Date: 11/16/21 Status: Ordered albuterol CFC free 90 mcg/inh inhalation aerosol 2, puffs, Inhalation, Every 6 hours, PRN, # 2 each, Refills 11, Tot. Refills 11, Maintenance, 02/15/22 13:12:00 EDT, Aerosol, Route to Pharmacy Electronically, [id number], [facility], [...] 6 Refills, Maintenance, 10/03/21 12:18:00 EST, Solution, [facility], 155, cm, 09/27/21 15:08:00 EST, Height, 68.5, kg, 06/03/20 13:18:00 EST, Dry Weight Start Date: 10/03/21 Status: Ordered cyanocobalamin 1000 mcg/ml injectable solution 1 mL = 1,000 mcg, Intramuscular, Every 30 days, # 3 mL, 6 Refills, Maintenance, 06/06/22 12:08:00 EST, Solution, [facility], 155, cm, 04/06/22 14:56:00 EDT, Height, 67.5, kg, 04/06/22 14:56:00 EDT, Dry Weight Start Date: 06/06/22 Status: Ordered dilTIAZem 240 mg/24 hours oral tablet, extended release 1 tablet = 240 mg, By Mouth, Daily, FURTHER REFILLS BY COMMUNICATIONS SENIOR ASSOCIATE, # 90 tablet, 0 Refills, Maintenance, 11/27/19 8:57:00 EDT, ER Tablet, [facility], 155, cm, 10/07/19 [...] 11/16/21 23:51:00 EDT, Route to Pharmacy Electronically, [facility], Partial fill upon patient request if the prescription is... Start Date: 11/16/21 Status: Ordered LORazepam 0.5 mg oral tablet See Instructions, TAKE 1 TABLET BY MOUTH TWO TIMES A DAY NEEDED FOR ANXIETY, # 28 tablet, 2 Refills, Maintenance, 06/06/22 10:45:00 EST, [facility], 155, cm, 04/06/22 [...] Refills, Maintenance, 11/16/21 23:51:00 EDT, DIS Tablet, [facility], Partial fill upon patient request if the prescription is for a schedule II o... Start Date: 11/16/21 Status: Ordered Peridex 0.12% liquid 15 mL = 0.018 Gm, By Mouth, 2 times a day, # 420 mL, 0 Refills, Maintenance, 01/18/22 8:47:00 EDT, Liquid, [facility], [...] 3 Refills, Maintenance, 06/05/22 14:27:00 EST, Capsule, [facility] [...] disorder Confirmed Active Somnolence, daytime Confirmed Active Fatigue Confirmed Active GERD (gastroesophageal reflux disease) Confirmed Active Hypoglycemia, unspecified Confirmed Active IBS (irritable bowel syndrome) Confirmed 01/23/16 Active Memory change Confirmed Active Near syncope Confirmed Active Bilateral leg pain Confirmed Active *BHN/CCA/CC-Matias Vela- [phone]/Health snf, active care coordination Confirmed Active POTS (postural [...] Care Nurse Name: Sisi Hernandez MD Position: [facility] Primary Care Physician Member Role: PCP Address: Address: [address] [place] [address] Name: Lizzette To RN Position: S RN Member Role: Primary Care Nurse Name: Karolina Adkins MD Position: [facility] Physician -Physician Practices Member Role: Lifetime Consulting Physician Address: Address: [address] [place] [address] [facility] [place] [address]- Name: Isadora Godfrey RN Position: [facility] RN Member Role: Primary Care Nurse Name: Rossy Rowe RN Position: [facility] SN RN Member Role: Primary Care Nurse Name: Bela Mcmahon RN Position: [facility] Hospital Electric Wirer Member Role: Primary Care Nurse Name: Nicole Hernandez RN Position: [facility] RN Member Role: Primary Care Nurse Name: Zac Castillo RN Position: [facility] ED RN W/OE and Tasks Member Role: Primary Care Nurse Name: Jeanne Grande RN Position: [facility] RN Member Role: Primary Care Nurse Care Team Related Persons Name: BEAR TURNER Address: home [address] [place] [address] Name: ISATU ECKERT Address: [place] [address] Name: ADRY DURANT Name: PANCHO JEROME Address: [place] [address]
--- OUTSIDE RECORDS SUMMARY | 2024-04-27 10:13 | XMS_ITS | Continuity of Care Document ---
Author Organization [facility] Address [address], 4t [place] [address]- Care Team Providers Care Book Agent Name Role Phone Sisi Hernandez MD Primary Care Physician Encounter [facility] [place] Date(s): 08/17/22 - [facility]/22 [facility] [address], 4th [address] [place], [place] [address] Attending Physician: Admtr, Ar8 Admitting Physician: Admtr, [...] 13:12:00 EDT, Aerosol, Route to Pharmacy Electronically, [id number], [facility], ONLY ALBUTEROL HFA, CANCEL... Start Date: 02/15/22 Stop Date: 02/10/23 Status: Ordered Colace sodium 100 mg oral capsule 100 mg, 1, capsule, By Mouth, 2 times a day, PRN, # 30 capsule, Refills 0, Tot. Refills 0, Maintenance, for constipation, 07/31/22 11:03:00 EST, Route to Pharmacy Electronically, [facility], Partial [...] 6 Refills, Maintenance, 09/04/22 8:50:00 EST, Solution, [facility], 155, cm, 08/14/22 13:52:00 [...] 0 Refills, Maintenance, 02/15/22 13:10:00 EDT, Aerosol, [facility], new dosage, 155, cm, [...] 07/31/22 11:03:00 EST, Route to Pharmacy Electronically, [facility], Partial fill upon patient request if the prescription is for a schedule... Start Date: 07/31/22 Status: Ordered LORazepam 0.5 mg oral tablet See Instructions, TAKE 1 TABLET BY MOUTH TWO TIMES A DAY NEEDED FOR ANXIETY, # 28 tablet, 2 Refills, Maintenance, 06/06/22 10:45:00 EST, [facility], 155, cm, 04/06/22 [...] Refills, Maintenance, 08/01/22 6:06:00 EST, REC Powder, [facility], Partial fill upon patient request [...] 0 Refills, Maintenance, 08/01/22 6:06:00 EST, Tablet, [facility], Partial fill upon patient request if the prescription is for a schedule II opioid drug., 155, cm,... Start Date: 08/01/22 Status: Ordered simethicone 80 mg oral tablet, chewable 80 mg, 1, tablet, Chew, 4 times a day, # 12 tablet, Refills 0, Tot. Refills 0, Maintenance, 07/31/22 11:03:00 EST, Route to Pharmacy Electronically, [email or web address], Partial fill upon patient request if [...] 07/31/22 11:03:00 EST, Route to Pharmacy Electronically, [facility], Partial [...] 3 Refills, Maintenance, 06/05/22 14:27:00 EST, Capsule, [facility], Partial fill upon patient request if [...] Bilateral leg pain Confirmed Active *BHN/CCA/CC-Matias Vela- [phone]/Health retirement, active care coordination Confirmed Active POTS (postural orthostatic tachycardia syndrome) Confirmed Active Medulloblastoma Confirmed Active RUQ pain Confirmed Active Social History Social History Type Response Smoking Status Never smoker; Tobacc o user in household: No entered on: 04/11/16 Sex Female Patient Care team information Care Team Personnel Name: Vidhya Grace RN Position: [facility] RN Member Role: Primary Care Nurse Name: Sisi Hernandez MD Position: [facility] Primary Care Physician Member Role: PCP Address: Address: [address] [place] [id number] Name: Lizzette To RN Position: [facility] RN Member Role: Primary Care Nurse Name: Karolina Adkins MD Position: [facility] Physician -Physician Practices Member Role: Lifetime Consulting Physician Address: Address: [address] [place] [address] [facility] [place], [place] [facility] Name: Isadora Godfrey RN Position: [facility] RN Member Role: Primary Care Nurse Name: Rossy Rowe RN Position: [facility] SN RN Member Role: Primary Care Nurse Name: Cindi Hayward Position: [facility] RN Member Role: Primary Care Nurse Name: Bela Mcmahon RN Position: [facility] Hospital Premium Representative Member Role: Primary Care Nurse Name: Nicole Hernandez RN Position: [facility] RN Member Role: Primary Care Nurse Name: Zac Castillo RN Position: [facility] ED RN W/OE and Tasks Member Role: Primary Care Nurse Name: Jeanne Grande RN Position: [facility] RN Member Role: Primary Care Nurse Care Team Related Persons Name: JOHNNY BEAR Address: home [address] [place] [address] Name: BEAR TURNER SECONDARY Address: home [address] [place] [address] Name: ISATU ECKERT Address: [place], [place] Name: ISAAC VERDE PRIMARY Address: home [address] [place] [address] Name: ADRY DURANT Name: PANCHO [place]OME Address: [place] [address]
--- OUTSIDE RECORDS SUMMARY | 2024-04-27 10:13 | XMS_ITS | Continuity of Care Document ---
Author Organization [facility] Address [address] [place] [address]- Care Team Providers Care Conference Specialist Name Role Phone Sisi Hernandez MD Primary Care Physician [phone] [place] [facility] [place] 02/17/21 - 03/19/[address] [address] Allergies, Adverse Reactions, Alerts Substance Reaction [...] 8:50:00 EDT, Aerosol, Route to Pharmacy Electronically, [id number], [facility], 155, cm, 06/03/20 13:15:00 [...] 6 Refills, Maintenance, 06/15/20 11:56:00 EST, Solution, [facility], 155, cm, 06/03/20 13:15:00 EST, Height, 68.5, kg, 06/03/20 13:18:00 EST, Dry Weight Start Date: 06/15/20 Status: Ordered dilTIAZem 240 mg/24 hours oral tablet, extended release 1 tablet = 240 mg, By Mouth, Daily, FURTHER REFILLS BY OUTSIDE MACHINIST HELPER, # 90 tablet, 0 Refills, Maintenance, 11/27/19 8:57:00 EDT, ER Tablet, [facility], 155, cm, 10/07/19 12:25:00 EDT, [...] tablet, 2 Refills, Maintenance, 05/06/20 15:17:00 EDT, [facility], 155, cm, 05/03/20 18:55:00 EDT, Height, [...] 15:30:53 EST, Aerosol, Route to Pharmacy Electronically, [id number]... Start Date: 09/12/18 Stop Date: 02/09/19 Status: Ordered ProAir HFA 90 mcg/inh inhalation aerosol with adapter 2, puffs, Inhalation, Every 4 hours, PRN, use with spacer chamber BRAND NAME MEDICALLY NECESSARY, #8.5 Gm, Refills 0, Tot. Refills 0, Maintenance, 12/05/20 15:38:00 EDT, Aerosol, Route to Pharmacy Electronically, [id number]... Start Date: 12/05/20 Status: Ordered ramelteon 8 mg oral tablet 1 tablet = 8 mg, By Mouth, Daily at bedtime, # 30 tablet, 11 Refills, Maintenance, 12/02/20 8:48:00EDT, [facility], Partial fill upon [...] 2 Refills, Maintenance, 08/04/20 12:39:00 EST, Capsule, [facility], Partial fill upon [...] Active Bilateral leg pain(Confirmed) Active *BHN/CCA/CC-Matias Vela- [phone]/Health prison, active care coordination(Confirmed) Active POTS (postural orthostatic t achycardia syndrome)(Confirmed) Active Medulloblastoma(Confirmed) Active RUQ pain(Confirmed) Active Viral URI(Confirmed) Active Social History Social History Type Response Smoking Status Never smoker; Tobacc o user in household: No entered on: 04/11/16 Sex
--- OUTSIDE RECORDS SUMMARY | 2024-04-27 10:13 | XMS_ITS | Continuity of Care Document ---
Author Organization [facility] Address [address] [place] [address]- Care Team Providers Care Neon Glass Bender Name Role Phone Sisi Hernandez MD Primary Care Physician Encounter [facility] [place] Date(s): 08/02/23 - 09/01/23 [facility] [address] [place], [place] [address] Allergies, Adverse Reactions, Alerts Substance Reaction [...] Refills, Maintenance, 12/21/22 14:40:00 EDT, ER Capsule, [facility], Partial fill upon patient request if the prescription is for a schedule II opioid drug., 155, cm, 12/05/22 11:... Start Date: 12/21/22 Status: Ordered albuterol CFC free 90 mcg/inh inhalation aerosol 2, puffs, Inhalation, Every 6 hours, PRN, # 2 each, Refills 11, Tot. Refills 11, Maintenance, 02/15/22 13:12:00 EDT, Aerosol, Route to Pharmacy Electronically, [id number], [facility], ONLY ALBUTEROL HFA, CANCEL... Start Date: 02/15/22 Stop Date: 02/10/23 Status: Ordered Colace sodium 100 mg oral capsule 100 mg, 1, capsule, By Mouth, 2 times a day, PRN, # 180 capsule, Refills 3, Tot. Refills 3, Maintenance, for constipation, 08/09/23 14:49:00 EST, Route to Pharmacy Electronically, [facility], Partial fill upon patient request [...] 6 Refills, Maintenance, 08/07/23 13:45:00 EST, Solution, [facility], 155, cm, 06/07/23 20:58:00 EST, [...] 0 Refills, Maintenance, 02/15/22 13:10:00 EDT, Aerosol, [facility], new dosage, 155, cm, 12/08/21 [...] EST, Route to Pharmacy Electronically, [facility], Partial fill upon patient request if the prescription is for a schedule... Start Date: 07/31/22 Status: Ordered LORazepam 0.5 mg oral tablet See Instructions, TAKE 1 TABLET BY MOUTH TWO TIMES A DAY NEEDED FOR ANXIETY, # 28 tablet, 2 Refills, Maintenance, 12/05/22 12:25:00 EDT, [facility], 155, cm, 12/05/22 11:40:00 [...] 0 Refills, Maintenance, 08/01/22 6:06:00 EST, Tablet, [facility], Partial fill upon patient request if the prescription is for a schedule II opioid drug., 155, cm,... Start Date: 08/01/22 Status: Ordered Symbicort 160mcg/4.5mcg Inhaler 2, puffs, Inhalation, 2 times a day, # 3 each, Refills 5, Tot. Refills 5, Maintenance, 09/27/22 12:00:00 EST, Aerosol, Route to Pharmacy Electronically, [id number], [facility], replaces flovent inhaler, 155, cm,... Start [...] EST, Route to Pharmacy Electronically, [facility], Partial fill upon patient request if the prescription is... Start Date: 07/31/22 Status: Ordered verapamil 240 mg/12 hours oral tablet, extended release TAKE 1 TABLET BY MOUTH DAILY. Start Date: 02/05/23 Status: Ordered Vitamin C 250 mg oral tablet, chewable 1 tablet = 250 mg, Chew, 2 times a day, # 180 tablet, 3 Refills, Maintenance, 08/14/23 13:38:00 EST, Chew Tablet, [facility], Partial fill upon patient request if the prescription is for a schedule II opioid drug., 155, cm, 08/14/23 13:0... Start Date: 08/14/23 Status: Ordered Vitamin D3 50,000 intl units oral capsule 1 capsule = 1,250 mcg, By Mouth, Every week, # 13 capsule, 1 Refills, Maintenance, 05/17/23 17:07:00 EDT, Capsule, [facility], Partial fill upon patient request [...] Bilateral leg pain Confirmed Active *BHN/CCA/CC-Matias Vela- [phone]/Health alf, active care coordination Confirmed Active POTS [...] Care Member Role: PCP Address: Address: [address] [place] [address] - Name: Lizzette To RN Position: [facility] SN RN Member Role: Primary Care Nurse Name: Karolina Adkins MD Position: [facility] Physician - Primary Care Member Role: Lifetime Consulting Physician Address: Address: [address] [place] [address] Ger[facility] Care [place], [place] [facility] Name: Isadora Godfrey RN Position: [facility] RN Member Role: Primary Care Nurse Name: Rossy Rowe RN Position: [facility] SN RN Member Role: Primary Care Nurse Name: Cindi Hayward RN Position: [facility] RN Member Role: Primary Care Nurse Name: Bela Mcmahon RN Position: [facility] Medical Service Representative Member Role: Primary Care Nurse Name: Nicole Hernandez RN Position: [facility] RN Member Role: Primary Care Nurse Name: Zac Castillo RN Position: [facility] ED RN W/OE and Tasks Member Role: Primary Care Nurse Name: Jeanne Grande RN Position: [facility] RN Member Role: Primary Care Nurse Care Team Related Persons Name: BEAR TURNER Address: home [address] [place] [address] Name: BEAR TURNER SECONDARY Address: home [address] [place] [address] Name: ISATU ECKERT Address: home [place], [place] Name: ISAAC VERDE PRIMARY Address: home [address] [place] [address] Name: ADRY DURANT Name: PANCHO JEROME Address: [place] [address]
--- OUTSIDE RECORDS SUMMARY | 2024-04-27 10:13 | XMS_ITS | Continuity of Care Document ---
Author Organization [facility] ter Address [address] [place] [address]- Care Team Providers Care Patrol Lady Name Role Phone Sisi Hernandez MD Primary Care Physician [phone] Encounter [facility] [place] Date(s): 03/14/23 - 03/14/23 [facility] [address] [place] [address]- Discharge Disposition: A-D/C Walkout Attending Physician: Not [...] 13:12:00 EDT, Aerosol, Route to Pharmacy Electronically, [id number], [facility] 3, ONLY ALBUTEROL HFA, CANCEL... Start Date: 02/15/22 Stop Date: 02/10/23 Status: Ordered Colace sodium 100 mg oral capsule 100 mg, 1, capsule, By Mouth, 2 times a day, PRN, # 30 capsule, Refills 0, Tot. Refills 0, Maintenance, for constipation, 07/31/22 11:03:00 EST, Route to Pharmacy Electronically, [facility] 3, Partial fill upon patient request [...] 6 Refills, Maintenance, 09/04/22 8:50:00 EST, Solution, [facility] 3, 155, cm, 08/14/22 13:52:00 EST, Height, [...] to Pharmacy Electronically, [facility], Partial [...] Refills, Maintenance, 08/01/22 6:06:00 EST, REC Powder, [facility] 3, Partial fill upon patient request [...] 0 Refills, Maintenance, 08/01/22 6:06:00 EST, Tablet, [facility] 3, Partial fill upon patient request if the prescription is for a schedule II opioid drug., 155, cm,... Start Date: 08/01/22 Status: Ordered Symbicort 160mcg/4.5mcg Inhaler 2, puffs, Inhalation, 2 times a day, # 3 each, Refills 5, Tot. Refills 5, Maintenance, 09/27/22 12:00:00 EST, Aerosol, Route to Pharmacy Electronically, [id number], [facility], replaces flovent inhaler, 155, cm,... [...] to Pharmacy Electronically, [facility], Partial fill upon patient request if [...] Bilateral leg pain Confirmed Active *BHN/CCA/CC-Matias Vela- [phone]/Health intermediate, active care coordination Confirmed Active POTS (postural orthostatic tachycardia syndrome) Confirmed Active Medulloblastoma Confirmed Active RUQ pain Confirmed Active Tachy-sharmin syndrome Confirmed Active Vital Signs Most recent to oldest [Reference Range]: 1 2 Height 155 cm (03/14/23 7:03 PM) 155 cm (03/14/23 6:01 PM) Oxygen Saturation [94-100 %] 100 % (03/14/23 6:01 PM) 100 % (03/14/23 5:57 PM) Pulse Rate [55-90 bpm] 100 bpm *H* (03/14/23 6:01 PM) 125 bpm *H* (03/14/23 5:57 PM) Blood Pressure [90-138/55-84 mm Hg] 137/ 84mm Hg (03/14/23 6:01 PM) Respiratory Rate [16-30 br/min] 18 br/mi n (03/14/23 6:01 PM) Temperature [96.8-100.4 DegF] 97.8 DegF (03/14/23 6:01 PM) Mode of Delivery (Oxygen) Room air (03/14/23 6:01 PM) Room air (03/14/23 5:57 PM) Blood pressure sites Arm, left (03/14/23 6:01 PM) Temperature Route Oral (03/14/23 6:01 PM) Dry Weight 68.2 kg (03/14/23 7:03 PM) 68.2 kg (03/14/23 6:01 PM) Dry Weight Obtained Via Patient/family s tated (03/14/23 6:01 PM) Social History Social History Type Response Smoking Status Never smoker; Tobacc o user in household: No entered on: 04/11/16 Sex Patient Care team information Care Team Personnel Name: Vidhya Grace RN Position: [facility] RN Member Role: Primary Care Nurse Name: Sisi Hernandez MD Position: [facility] Physician - Primary Care Member Role: PCP Address: Address: [address] [place] [address] Name: Lizzette To RN Position: [facility] RN Member Role: Primary Care Nurse Name: Karolina Adkins MD Position: [facility] Physician - Primary Care Member Role: Lifetime Consulting Physician Address: Address: [address] [place] [address] [facility] [address] Name: Rossy Rowe RN Position: [facility] SN RN Member Role: Primary Care Nurse Name: Cindi Hayward Position: [facility] RN Member Role: Primary Care Nurse Name: Bela Mcmahon RN Position: [facility] Hospital Machinist Supervisor Member Role: Primary Care Nurse Name: Nicole Hernandez RN Position: [facility] RN Member Role: Primary Care Nurse Name: Zac Castillo RN Position: [facility] ED RN W/OE and Tasks Member Role: Primary Care Nurse Name: Jeanne Grande RN Position: [facility] RN Member Role: Primary Care Nurse Care Team Related Persons Name: BEAR TURNER Address: [address] [place] [address] Name: BEAR TURNER SECONDARY Address: home [address] [place] [address] Name: ISATU ECKERT Address: [place] [address] Name: ISAAC VERDE PRIMARY Address: [address] [address] Name: ADRY DURANT Name: PANCHO JEROME Address: [place] [address]
--- OUTSIDE RECORDS SUMMARY | 2024-04-27 10:13 | XMS_ITS | Continuity of Care Document ---
Author Organization [facility] Address [address] [place] [address]- Care Team Providers Care Production Sound Mixer Name Role Phone Sisi Hernandez MD Primary Care Physician [phone] Encounter [facility] Date(s): 11/11/23 - 12/11/[address] [id number] Allergies, Adverse Reactions, Alerts Substance Reaction [...] 13:12:00 EDT, Aerosol, Route to Pharmacy Electronically, [id number], [facility], ONLY ALBUTEROL HFA, CANCEL... Start Date: 02/15/22 Stop Date: 02/10/23 Status: Ordered Colace sodium 100 mg oral capsule 100 mg, 1, capsule, By Mouth, 2 times a day, PRN, # 180 capsule, Refills 3, Tot. Refills 3, Maintenance, for constipation, 08/09/23 14:49:00 EST, Route to Pharmacy Electronically, [facility], Partial fill upon [...] 2 Refills, Maintenance, 11/22/23 15:23:00 EDT, Solution, [facility], dose change, 155, cm, [...] 0 Refills, Maintenance, 02/15/22 13:10:00 EDT, Aerosol, [facility], new dosage, 155, cm, [...] EST, Route to Pharmacy Electronically, [facility], Partial fill upon patient request if the prescription is for a schedule... Start Date: 07/31/22 Status: Ordered ketoconazole 1% topical shampoo See Instructions, Apply 5 to 10 mL to wet scalp, lather, leave on 3 to 5 minutes, and rinse; apply twice weekly for 2 to 4 weeks., # 200 mL, 5 Refills, Maintenance, 11/22/23 15:46:00 EDT, [facility], Partial fill upon patient request if... Start Date: 11/22/23 Status: Ordered ketoconazole 2% topical shampoo 1 application, Topically, Once, Apply 5 to 10 mL to wet scalp, lather, leave on 3 to 5 minutes, andrinse; apply weekly for 2 to 4 weeks., # 120 mL, 4 Refills, Soft Stop, 11/25/23 12:40:00 EDT, Shampoo, [facility], Partial fill upon pat... Start Date: 11/25/23 Status: Ordered LORazepam 0.5 mg oral tablet See Instructions, TAKE 1 TABLET BY MOUTH TWO TIMES A DAY NEEDED FOR ANXIETY, # 28 tablet, 2 Refills, Maintenance, 12/05/22 12:25:00 EDT, [facility], 155, cm, 12/05/22 11:40:00 EDT, [...] Maintenance, 08/01/22 6:06:00 EST, Tablet, [facility] 3, Partial fill upon patient request if the prescription is for a schedule II opioid drug., 155, cm,... Start Date: 08/01/22 Status: Ordered Symbicort 160mcg/4.5mcg Inhaler 2, puffs, Inhalation, 2 times a day, # 3 each, Refills 5, Tot. Refills 5, Maintenance, 09/27/22 12:00:00 EST, Aerosol, Route to Pharmacy Electronically, [id number], [facility], replaces flovent inhaler, 155, cm,... [...] 07/31/22 11:03:00 EST, Route to Pharmacy Electronically, [facility], Partial fill upon patient request [...] Refills, Maintenance, 08/14/23 13:38:00 EST, Chew Tablet, [facility], Partial fill upon patient request if the prescription is for a schedule II opioid drug., 155, cm, 08/14/23 13:0... Start Date: 08/14/23 Status: Ordered Vitamin D3 50,000 intl units oral capsule 1 capsule = 1,250 mcg, By Mouth, Every week, # 13 capsule, 1 Refills, Maintenance, 05/17/23 17:07:00 EDT, Capsule, [facility], Partial fill upon patient [...] 0 Refills, Maintenance, 11/01/23 14:07:00 EDT, Capsule, [facility], Partial fill u... 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 RN Member Role: Primary Care Nurse Name: Sisi Hernandez MD Position: [facility] Physician - Primary Care Member Role: PCP Address: Address: [address] [place] [id number] Name: Lizzette To RN Position: [facility] SN RN Member Role: Primary Care Nurse Name: Karolina Adkins MD Position: [facility] Physician - Primary Care Member Role: Lifetime Consulting Physician Address: Address: [address] [place] [address] [facility] [place] [address]- Name: Isadora Godfrey RN Position: [facility] RN Member Role: Primary Care Nurse Name: Rossy Rowe RN Position: [facility] SN RN Member Role: Primary Care Nurse Name: Cindi Hayward RN Position: [facility] RN Member Role: Primary Care Nurse Name: Bela Mcmahon RN Position: [facility] Hospital Top Spotter Member Role: Primary Care Nurse Name: Nicole Hernandez RN Position: [facility] RN Member Role: Primary Care Nurse Name: Zac Castillo RN Position: [facility] ED RN W/OE and Tasks Member Role: Primary Care Nurse Name: Jeanne Grande RN Position: [facility] RN Member Role: Primary Care Nurse Care Team Related Persons Name: BEAR TURNER Address: home [address] [place] [id number] Name: BEAR TURNER SECONDARY Address: home [address] [place] [address] Name: ISATU ECKERT Address: [place] [address] Name: ISAAC VERDE PRIMARY Address: home [address] [place] [address] Name: ADRY DURANT Name: PANCHO JEROME Address: [place] [address]
--- OUTSIDE RECORDS SUMMARY | 2024-04-27 10:13 | XMS_ITS | Continuity of Care Document ---
Author Organization [facility] Address [address] [place] [address]- Care Team Providers Care Continuous Mining Machine Lode Miner Name Role Phone Sisi Hernandez MD Primary Care Physician Encounter [facility] Date(s): 10/03/23 - 11/02/[address] [address] Allergies, Adverse Reactions, Alerts Substance [...] 13:12:00 EDT, Aerosol, Route to Pharmacy Electronically, [id number], [facility], ONLY ALBUTEROL HFA, CANCEL... Start Date: 02/15/22 Stop Date: 02/10/23 Status: Ordered Colace sodium 100 mg oral capsule 100 mg, 1, capsule, By Mouth, 2 times a day, PRN, # 180 capsule, Refills 3, Tot. Refills 3, Maintenance, for constipation, 08/09/23 14:49:00 EST, Route to Pharmacy Electronically, [facility], Partial fill upon patient request [...] 6 Refills, Maintenance, 08/07/23 13:45:00 EST, Solution, [facility], 155, cm, 06/07/23 [...] 12/05/22 12:25:00 EDT, [facility], 155, cm, [...] 0 Refills, Maintenance, 08/01/22 6:06:00 EST, Tablet, [facility], Partial fill upon patient request if the prescription is for a schedule II opioid drug., 155, cm,... Start Date: 08/01/22 Status: Ordered Symbicort 160mcg/4.5mcg Inhaler 2, puffs, Inhalation, 2 times a day, # 3 each, Refills 5, Tot. Refills 5, Maintenance, 09/27/22 12:00:00 EST, Aerosol, Route to Pharmacy Electronically, [id number], [facility], replaces flovent inhaler, 155, cm,... [...] Refills, Maintenance, 08/14/23 13:38:00 EST, Chew Tablet, [facility], Partial fill upon patient request if the prescription is for a schedule II opioid drug., 155, cm, 08/14/23 13:0... Start Date: 08/14/23 Status: Ordered Vitamin D3 50,000 intl units oral capsule 1 capsule = 1,250 mcg, By Mouth, Every week, # 13 capsule, 1 Refills, Maintenance, 05/17/23 17:07:00 EDT, Capsule, [facility], Partial fill upon patient request if the prescription is for a schedule II opioid drug., 155, cm, 05/15/23 13:... Start Date: 05/17/23 Status: Ordered Vyvanse 10 mg oral capsule See Instructions, start 1 capsule By Mouth Daily in AM. Increase to 2 capsules as needed (Name brand only because generic not available), # 60 capsule, 0 Refills, Maintenance, 11/01/23 14:07:00 EDT, Capsule, [facility], Partial fill u... Start Date: 11/01/23 [...] Bilateral leg pain Confirmed Active *BHN/CCA/CC-Matias Vela- [phone]/Health intermediate, active care coordination Confirmed Active POTS [...] Primary Care Member Role: PCP Address: Address: [address] [place] [address] Name: Lizzette To RN Position: [facility] SN RN Member Role: Primary Care Nurse Name: Karolina Adkins MD Position: [facility] Physician - Primary Care Member Role: Lifetime Consulting Physician Address: Address: [address] [place] [address] [facility] [address] Name: Isadora Godfrey RN Position: [facility] RN Member Role: Primary Care Nurse Name: Rossy Rowe RN Position: [facility] SN RN Member Role: Primary Care Nurse Name: Cindi Hayward RN Position: [facility] RN Member Role: Primary Care Nurse Name: Bela Mcmahon RN Position: [facility] Hospital Safety Relief Valve Technician Member Role: Primary Care Nurse Name: Nicole Hernandez RN Position: [facility] RN Member Role: Primary Care Nurse Name: Zac Castillo RN Position: [facility] ED RN W/OE and Tasks Member Role: Primary Care Nurse Name: Jeanne Grande RN Position: [facility] RN Member Role: Primary Care Nurse Care Team Related Persons Name: JOHNNY BEAR Address: home [address] [place] [address] Name: BEAR TURNER SECONDARY Address: [address] Name: ISATU ECKERT Address: [place] [address] Name: ISAAC VERDE PRIMARY Address: [address] Name: ADRY DURANT Name: PANCHO JEROME Address: [place] [address]
--- OUTSIDE RECORDS SUMMARY | 2024-04-27 10:13 | XMS_ITS | Continuity of Care Document ---
Author Organization [facility] Address [address] [place] [address]- Care Team Providers Care Anodic Operator Name Role Phone Sisi Hernandez MD Primary Care Physician [phone] Encounter [facility] Date(s): 07/08/19 - 08/09/19 [facility] [address] [place] [address]- [facility] Attending Physician: Sisi Hernandez MD Allergies, Adverse [...] 12:10:52 EDT, Aerosol, Route to Pharmacy Electronically, [id number], [facility] Start Date: 03/10/19 Stop Date: 09/06/19 Status: Ordered Carafate 1 gm/10 ml oral suspension 10 mL = 1 Gm, By Mouth, 3 times a day before meals and bedtime, # 1,200 mL, 0 Refills, Maintenance,07/31/19 15:42:00 EST, [facility], CAN LET ME KNOW IF NOT [...] 3 Refills, Maintenance, 07/31/19 15:47:00 EST, Solution, [facility], 155, cm, 07/31/19 15:01:00 EST, Height, 63, kg, 07/01/19 19:58:00 EST, Dry Weight Start Date: 07/31/19 Status: Ordered dicyclomine 10 mg oral capsule 1 capsule = 10 mg, By Mouth, 3 times a day, PRN intestinal spasm, # 21 capsule, 3 Refills, Maintenance, 07/31/19 15:42:00 EST, Capsule, [facility], 155, cm, 07/31/19 15:01:00 EST, Height, 63, kg, 07/01/19 19:58:00 EST, Dry Weight Start Date: 07/31/19 Stop Date: 08/28/19 Status: Ordered famotidine 40 mg oral tablet 1 tablet = 40 mg, By Mouth, Daily at bedtime, # 30 tablet, 0 Refills, Maintenance, 07/21/19 13:46:00 EST, Tablet, [facility], 155, cm, 07/21/19 13:05:00 EST, Height, [...] 15:30:53 EST, Aerosol, Route to Pharmacy Electronically, [id number]... Start Date: 09/12/18 Stop Date: 02/09/19 Status: [...] Refills, Maintenance, 07/21/19 13:36:00 EST, CR Capsule, [facility], lower dose for a month, [...] 0 Refills, Maintenance, 07/21/19 12:29:00 EST, Tablet, [facility], 155, cm, 07/21/19 11:37:00 EST, [...] bowel syndrome)(Confirmed) 01/23/16 Active Near syncope(Confirmed) Active *[facility]/CC-Geno Neath-[phone]/Health jail, active care coordination(Confirmed) Active Matias [facility] Cash Applications Clerk [phone](Confirmed) Active POTS (postural orthostatic t achycardia syndrome)(Confirmed) Active Medulloblastoma(Confirmed) Active RUQ pain(Confirmed) Active Social History Social History Type Response Smoking Status Never smoker; Tobacc o user in household: No entered on: 04/11/16 Sex
--- OUTSIDE RECORDS SUMMARY | 2024-04-27 10:13 | XMS_ITS | Continuity of Care Document ---
Author Organization [facility] Address [address] [place] [address]- Care Team Providers Care Sap Senior Developer Name Role Phone Sisi Hernandez MD Primary Care Physician Encounter [facility] Date(s): 11/16/21 - 11/23/21 [facility] [address] [place] [address]- Encounter Diagnosis Abdominal pain(Discharge Diagnosis) - 11/16/21 Attending Physician: Eriberto Webb DO Referring Physician: Sisi Hernandez MD Allergies, Adverse [...] 11/16/21 23:51:00 EDT, Route to Pharmacy Electronically, [facility], Partial fill upon patient request if the presc... Start Date: 11/16/21 Status: Ordered Adderall 5 mg oral tablet 1 tablet = 5 mg, By Mouth, 2 times a day, to take with long acting, # 60 tablet, 0 Refills, Maintenance, 10/25/21 15:46:00 EDT, Tablet, [facility], Partial fill upon patient [...] Refills, Maintenance, 10/25/21 15:46:00 EDT, ER Capsule, [facility], Partial fill upon patient r... Start Date: 10/25/21 Status: Ordered albuterol CFC free 90 mcg/inh inhalation aerosol 2, puffs, Inhalation, Every 6 hours, PRN, # 2 each, Refills 11, Tot. Refills 11, Maintenance, 10/05/21 9:52:00 EST, Aerosol, Route to Pharmacy Electronically, [id number], [facility], ONLY ALBUTEROL HFA, CANCEL [...] 6 Refills, Maintenance, 10/03/21 12:18:00 EST, Solution, [facility], 155, cm, 09/27/21 15:08:00 EST, Height, 68.5, kg, 06/03/20 13:18:00 EST, Dry Weight Start Date: 10/03/21 Status: Ordered cyanocobalamin 1000 mcg/ml injectable solution 1 mL = 1,000 mcg, Intramuscular, Every 30 days, # 3 mL, 6 Refills, Maintenance, 06/15/20 11:56:00 EST, Solution, [facility], 155, cm, 06/03/20 13:15:00 EST, Height, 68.5, kg, 06/03/20 13:18:00 EST, Dry Weight Start Date: 06/15/20 Status: Ordered dilTIAZem 240 mg/24 hours oral tablet, extended release 1 tablet = 240 mg, By Mouth, Daily, FURTHER REFILLS BY PIG FARMER, # 90 tablet, 0 Refills, Maintenance, 11/27/19 8:57:00 EDT, ER Tablet, [facility], 155, cm, 10/07/19 12:25:00 EDT, Height, 63, kg, 07/01/19 19:58:00 EST, Dry Weight Start Date: 11/27/19 Status: Ordered Flovent HFA 110 mcg/inh inhalation aerosol 2 puffs, Inhalation, 2 times a day, # 12 Gm, 0 Refills, Maintenance, 10/05/21 13:23:00 EST, Aerosol, [facility], Partial fill upon patient [...] 11/16/21 23:51:00 EDT, Route to Pharmacy Electronically, [facility], Partial fill upon patient request if the prescription is... Start Date: 11/16/21 Status: Ordered LORazepam 0.5 mg oral tablet See Instructions, TAKE 1 TABLET BY MOUTH TWO TIMES A DAY NEEDED FOR ANXIETY, # 28 tablet, 2 Refills, Maintenance, 05/06/20 15:17:00 EDT, [facility], 155, cm, 05/03/20 [...] Refills, Maintenance, 11/16/21 23:51:00 EDT, DIS Tablet, [facility], Partial fill upon patient [...] 3 Refills, Maintenance, 10/25/21 11:13:00 EDT, Capsule, [facility], Partial fill upon patient [...] Active Bilateral leg pain(Confirmed) Active *BHN/CCA/CC-Matias Vela- [phone]/Health senior care, active care coordination(Confirmed) Active POTS (postural orthostatic t achycardia syndrome)(Confirmed) Active Medulloblastoma(Confirmed) Active RUQ pain(Confirmed) Active Diagnosis Diagnosis Type Effective Dates Health Status Cl inical Service Informant Abdominal pain Discharge Diagnosis 11/16/21 Vital Signs Most recent to oldest [Reference Range]: 1 Height 155 cm (11/16/21 6:29 PM) Oxygen Saturation [94-100 %] 97 % (11/16/21 6:29 PM) Pulse Rate [55-90 bpm] 101 bpm *H* (11/16/21 6:29 PM) Blood Pressure [90-138/55-84 mm Hg] 103/ 60mm Hg (11/16/21 6:29 PM) Respiratory Rate [16-30 br/min] 18 br/mi n (11/16/21 6:29 PM) Temperature [96.8-100.4 DegF] 97.9 DegF (11/16/21 6:29 PM) Mode of Delivery (Oxygen) Room air (11/16/21 6:29 PM) Blood pressure sites Arm, right (11/16/21 6:29 PM) Temperature Route Temporal (11/16/21 6:29 PM) Social History Social History Type Response Smoking Status Never smoker; Tobacc o user in household: No entered on: 04/11/16 Sex Female
--- OUTSIDE RECORDS SUMMARY | 2024-04-27 10:13 | XMS_ITS | Continuity of Care Document ---
Author Organization [facility] Address [address] [place] [address]- Care Team Providers Care Dividing Machine Operator Helper Name Role Phone Sisi Hernandez MD Primary Care Physician [phone] [id number] Date(s): [facility]/15/22 - 06/22/22 [facility] [address] [place], [place] [address] Attending Physician: Sisi Hernandez MD Allergies, [...] 11/16/21 23:51:00 EDT, Route to Pharmacy Electronically, [facility], Partial fill upon patient request if the presc... Start Date: 11/16/21 Status: Ordered albuterol CFC free 90 mcg/inh inhalation aerosol 2, puffs, Inhalation, Every 6 hours, PRN, # 2 each, Refills 11, Tot. Refills 11, Maintenance, 02/15/22 13:12:00 EDT, Aerosol, Route to Pharmacy Electronically, [id number], [facility], ONLY ALBUTEROL HFA, CANCEL... [...] 6 Refills, Maintenance, 10/03/21 12:18:00 EST, Solution, [facility], 155, cm, 09/27/21 15:08:00 EST, Height, 68.5, kg, 06/03/20 13:18:00 EST, Dry Weight Start Date: 10/03/21 Status: Ordered cyanocobalamin 1000 mcg/ml injectable solution 1 mL = 1,000 mcg, Intramuscular, Every 30 days, # 3 mL, 6 Refills, Maintenance, 06/06/22 12:08:00 EST, Solution, [facility], 155, cm, 04/06/22 14:56:00 EDT, Height, 67.5, kg, 04/06/22 14:56:00 EDT, Dry Weight Start Date: 06/06/22 Status: Ordered dilTIAZem 240 mg/24 hours oral tablet, extended release 1 tablet = 240 mg, By Mouth, Daily, FURTHER REFILLS BY DIGITAL STRATEGIST SENIOR MANAGER, # 90 tablet, 0 Refills, Maintenance, 11/27/19 8:57:00 EDT, ER Tablet, [facility], 155, cm, 10/07/19 12:25:00 EDT, Height, 63, kg, 07/01/19 19:58:00 EST, Dry Weight Start Date: 11/27/19 Status: Ordered Flovent HFA 220 mcg/inh inhalation aerosol 2 puffs, Inhalation, 2 times a day, new dosage, # 12 Gm, 0 Refills, Maintenance, 02/15/22 13:10:00 EDT, Aerosol, [facility], new dosage, 155, cm, [...] 11/16/21 23:51:00 EDT, Route to Pharmacy Electronically, [facility], Partial fill upon patient request if the prescription is... Start Date: 11/16/21 Status: Ordered LORazepam 0.5 mg oral tablet See Instructions, TAKE 1 TABLET BY MOUTH TWO TIMES A DAY NEEDED FOR ANXIETY, # 28 tablet, 2 Refills, Maintenance, 06/06/22 10:45:00 EST, [facility], 155, cm, 04/06/22 [...] Refills, Maintenance, 11/16/21 23:51:00 EDT, DIS Tablet, [facility], Partial fill upon patient request if the prescription is for a schedule II o... Start Date: 11/16/21 Status: Ordered Peridex 0.12% liquid 15 mL = 0.018 Gm, By Mouth, 2 times a day, # 420 mL, 0 Refills, Maintenance, 01/18/22 8:47:00 EDT, Liquid, [facility], Partial fill upon patient [...] 3 Refills, Maintenance, 06/05/22 14:27:00 EST, Capsule, [facility], Partial fill upon patient [...] Bilateral leg pain Confirmed Active *N/CCA/CC-Matias Vela- [phone]/Health halfway, active care coordination Confirmed Active POTS (postural orthostatic tachycardia syndrome) Confirmed Active Medulloblastoma Confirmed Active RUQ pain Confirmed Active Social History Social History Type Response Smoking Status Never smoker; Tobacc o user in household: No entered on: 04/11/16 Sex Female Patient Care team information Care Team Personnel Name: Vidhya Grace RN Position: [facility] RN Member Role: Primary Care Nurse Name: Sisi Hernandez MD Position: [facility] Primary Care Physician Member Role: PCP Address: Address: [address] [place] [address] Name: Yousuf MONTELONGO, Lizzette Position: S RN Member Role: Primary Care Nurse Name: Karolina Adkins MD Position: [facility] Physician -Physician Practices Member Role: Lifetime Consulting Physician Address: Address: [address] [place] [address] Geriatric [facility] [place] [address]- Name: Isadora Godfrey RN Position: [facility] RN Member Role: Primary Care Nurse Name: Rossy Rowe RN Position: [facility] SN RN Member Role: Primary Care Nurse Name: Bela Mcmahon RN Position: [facility] Hospital Medical Assistant Secretary Member Role: Primary Care Nurse Name: Nicole Hernandez RN Position: [facility] RN Member Role: Primary Care Nurse Name: Zac Castillo RN Position: [facility] ED RN W/OE and Tasks Member Role: Primary Care Nurse Name: Jeanne Grande RN Position: [facility] RN Member Role: Primary Care Nurse Care Team Related Persons Name: KATHRYN TURNERY Address: home [address] [place] [address] Name: ISATU ECKERT Address: [place] [address] Name: ADRY DURANT Name: PANCHO JEROME Address: [place] [address]
--- OUTSIDE RECORDS SUMMARY | 2024-04-27 10:13 | XMS_ITS | Continuity of Care Document ---
Author Organization [facility] Address [address] [place] [address]- Care Team Providers Care Heater Tender Name Role Phone Sisi Hernandez MD Primary Care Physician Encounter [facility] [place] Date(s): 08/18/19 - 12/16/19 [facility] [address] [place] [address]- [facility] Attending Physician: Not on Staff, Attending MD Admitting Physician: Hernandez Reardon Referring Physician: Sisi Hernandez MD Allergies, Adverse [...] 8:59:00 EDT, Aerosol, Route to Pharmacy Electronically, [id number], [facility] 3, 155, cm, 10/07/19 12:25:00 E... Start Date: 11/27/19 Stop Date: 11/21/20 Status: Ordered Compression Stockings See Instructions, # 2 units, Refills 11, Tot. Refills 11, Maintenance, KNEE HIGH COMPRESSION STOCKINGS 15-20mm HG use daily 2 pairs every 3 months Dx: POTS syndrome R00.00 HEIGHT 154CM WEIGHT 68KG LIFETIME USE, 06/05/19 16:03:58 EST, Com... Start Date: 06/05/19 Status: Ordered dilTIAZem 240 mg/24 hours oral tablet, extended release 1 tablet = 240 mg, By Mouth, Daily, FURTHER REFILLS BY REGISTERED DIETICIAN, # 90 tablet, 0 Refills, Maintenance, 11/27/19 8:57:00 EDT, ER Tablet, [facility] 3, 155, cm, 10/07/19 12:25:00 EDT, Height, 63, kg, 07/01/19 19:58:00 EST, Dry Weight Start Date: 11/27/19 Status: Ordered LORazepam 0.5 mg oral tablet See Instructions, TAKE 1 TABLET BY MOUTH TWO TIMES A DAY NEEDED FOR ANXIETY, # 28 tablet, 2 Refills, Maintenance, 11/02/19 10:43:00 EDT, [facility] 3, 155, cm, 10/07/19 12:25:00 EDT, Height, 63, kg, 07/01/19 19:58:00 EST, Dry Weight Start Date: 11/02/19 Status: Ordered nitroglycerin 0.4 mg sublingual tablet [...] 15:30:53 EST, Aerosol, Route to Pharmacy Electronically, [id number]... Start Date: 09/12/18 Stop Date: 02/09/19 Status: Ordered Vitamin B12 1000 mcg oral tablet 1 tablet = 1,000 mcg, By Mouth, Daily, # 90 tablet, 3 Refills, Maintenance, 11/27/19 8:58:00 EDT, Tablet, [facility], 155, cm, 10/07/19 12:25:00 EDT, Height, 63, kg, 07/01/19 19:58:00 EST, Dry Weight Start Date: 11/27/19 Status: Ordered Problem List Condition Effective Dates [...] Near syncope(Confirmed) Active Bilateral leg pain(Confirmed) Active *[facility]/CC-Geno Neath-[phone]/Health penitentiary, active care coordination(Confirmed) Active Matias Vela [facility] Care [facility] Caddy [phone](Confirmed) Active POTS (postural orthostatic t achycardia syndrome)(Confirmed) Active Medulloblastoma(Confirmed) Active RUQ pain(Confirmed) Active Social History Social History Type Response Smoking Status Never smoker; Tobacc o user in household: No entered on: 04/11/16 Sex
--- OUTSIDE RECORDS SUMMARY | 2024-04-27 10:13 | XMS_ITS | Continuity of Care Document ---
Author Organization [facility] Address [address] [place] [address]- Care Team Providers Care Oyster Shipper Name Role Phone Mary KEATING, Sisi Almanza Primary Care Physician [phone] [place] [facility] [place]/09/[place] - 03/11/[address] [address] Allergies, Adverse Reactions, Alerts Substance Reaction [...] 8:50:00 EDT, Aerosol, Route to Pharmacy Electronically, [id number], [facility], 155, cm, 06/03/20 [...] Refills, Maintenance, 06/15/20 11:56:00 EST, Solution, [facility], 155, cm, 06/03/20 13:15:00 EST, Height, 68.5, kg, 06/03/20 13:18:00 EST, Dry Weight Start Date: 06/15/20 Status: Ordered dilTIAZem 240 mg/24 hours oral tablet, extended release 1 tablet = 240 mg, By Mouth, Daily, FURTHER REFILLS BY ASSEMBLER MOLDED FRAMES, # 90 tablet, 0 Refills, Maintenance, 11/27/19 8:57:00 EDT, ER Tablet, [facility], 155, cm, 10/07/19 [...] tablet, 2 Refills, Maintenance, 05/06/20 15:17:00 EDT, [facility] 3, 155, cm, 05/03/20 18:55:00 EDT, [...] 15:30:53 EST, Aerosol, Route to Pharmacy Electronically, [id number]... Start Date: 09/12/18 Stop Date: 02/09/19 Status: Ordered ProAir HFA 90 mcg/inh inhalation aerosol with adapter 2, puffs, Inhalation, Every 4 hours, PRN, use with spacer chamber BRAND NAME MEDICALLY NECESSARY, #8.5 Gm, Refills 0, Tot. Refills 0, Maintenance, 12/05/20 15:38:00 EDT, Aerosol, Route to Pharmacy Electronically, [id number]... Start Date: 12/05/20 Status: Ordered ramelteon 8 mg oral tablet 1 tablet = 8 mg, By Mouth, Daily at bedtime, # 30 tablet, 11 Refills, Maintenance, 12/02/20 8:48:00EDT, [facility] 3, Partial fill upon patient request [...] 2 Refills, Maintenance, 08/04/20 12:39:00 EST, Capsule, [facility], Partial fill upon [...] Active Bilateral leg pain(Confirmed) Active *[facility]/CCA/CC-Matias Vela- [phone]/Health prison, active care coordination(Confirmed) Active POTS (postural orthostatic t achycardia syndrome)(Confirmed) Active Medulloblastoma(Confirmed) Active RUQ pain(Confirmed) Active Viral URI(Confirmed) Active Social History Social History Type Response Smoking Status Never smoker; Tobacc o user in household: No entered on: 04/11/16 Sex
--- OUTSIDE RECORDS SUMMARY | 2024-04-27 10:13 | XMS_ITS | Continuity of Care Document ---
Author Organization [facility] Address [address] [place] [address]- Care Team Providers Care Tankage Grinder Operator Name Role Phone Sisi Hernandez MD Primary Care Physician [phone] [place] [facility] [place](s): 06/17/20 - 07/17/20 [facility] [address] [place], [place] [address] Allergies, Adverse Reactions, Alerts [...] 8:59:00 EDT, Aerosol, Route to Pharmacy Electronically, [id number], [facility], 155, cm, 10/07/19 12:25:00 E... [...] 6 Refills, Maintenance, 06/15/20 11:56:00 EST, Solution, [facility], 155, cm, 06/03/20 13:15:00 EST, Height, 68.5, kg, 06/03/20 13:18:00 EST, Dry Weight Start Date: 06/15/20 Status: Ordered dilTIAZem 240 mg/24 hours oral tablet, extended release 1 tablet = 240 mg, By Mouth, Daily, FURTHER REFILLS BY DIRECTOR OF DIGITAL PLATFORMS, # 90 tablet, 0 Refills, Maintenance, 11/27/19 8:57:00 EDT, ER Tablet, [facility], 155, cm, 10/07/19 12:25:00 EDT, [...] 2 Refills, Maintenance, 05/06/20 15:17:00 EDT, [facility] 3, 155, cm, 05/03/20 18:55:00 [...] 15:30:53 EST, Aerosol, Route to Pharmacy Electronically, [id number]... Start Date: 09/12/18 Stop Date: 02/09/19 Status: [...] Active Bilateral leg pain(Confirmed) Active *[facility]/CCA/CC-Matias Vela- [phone]/Health long-term, active care coordination(Confirmed) Active POTS (postural orthostatic t achycardia syndrome)(Confirmed) Active Medulloblastoma(Confirmed) Active RUQ pain(Confirmed) Active Viral URI(Confirmed) Active Social History Social History Type Response Smoking Status Never smoker; Tobacc o user in household: No entered on: 04/11/16 Sex
--- OUTSIDE RECORDS SUMMARY | 2024-04-27 10:14 | XMS_ITS | Continuity of Care Document ---
Author Organization [facility] Address [address] [facility], [address]t [place] [address]- Care Team Providers Care Hot Dog Vendor Name Role Phone Sisi Hernandez MD Primary Care Physician [place] [facility] [place](s): 08/14/22 - 10/14/22 [facility] [address] [facility] [address] [facility], 4th Floor [place], [place] [address] Attending Physician: Jacqueline Moura MD Admitting Physician: Jacqueline Moura MD Referring Physician: Sisi Hernandez MD Allergies, [...] 13:12:00 EDT, Aerosol, Route to Pharmacy Electronically, [id number], [facility], ONLY ALBUTEROL HFA, CANCEL... Start Date: 02/15/22 Stop Date: 02/10/23 Status: Ordered Colace sodium 100 mg oral capsule 100 mg, 1, capsule, By Mouth, 2 times a day, PRN, # 30 capsule, Refills 0, Tot. Refills 0, Maintenance, for constipation, 07/31/22 11:03:00 EST, Route to Pharmacy Electronically, [facility], Partial fill upon [...] 6 Refills, Maintenance, 09/04/22 8:50:00 EST, Solution, [facility], 155, cm, 08/14/22 [...] 0 Refills, Maintenance, 02/15/22 13:10:00 EDT, Aerosol, [facility] 3, new dosage, 155, cm, 12/08/21 10:46:00 [...] 07/31/22 11:03:00 EST, Route to Pharmacy Electronically, [facility] 3, Partial fill upon patient request if the prescription is for a schedule... Start Date: 07/31/22 Status: Ordered LORazepam 0.5 mg oral tablet See Instructions, TAKE 1 TABLET BY MOUTH TWO TIMES A DAY NEEDED FOR ANXIETY, # 28 tablet, 2 Refills, Maintenance, 06/06/22 10:45:00 EST, [facility] 3, 155, cm, 04/06/22 14:56:00 EDT, [...] Refills, Maintenance, 08/01/22 6:06:00 EST, REC Powder, [facility] 3, Partial fill upon patient request [...] 0 Refills, Maintenance, 08/01/22 6:06:00 EST, Tablet, [facility] 3, Partial fill upon patient request if the prescription is for a schedule II opioid drug., 155, cm,... Start Date: 08/01/22 Status: Ordered Symbicort 160mcg/4.5mcg Inhaler 2, puffs, Inhalation, 2 times a day, # 3 each, Refills 5, Tot. Refills 5, Maintenance, 09/27/22 12:00:00 EST, Aerosol, Route to Pharmacy Electronically, [id number], [facility], replaces flovent inhaler, 155, cm,... [...] 07/31/22 11:03:00 EST, Route to Pharmacy Electronically, [facility], Partial fill upon patient request if [...] 3 Refills, Maintenance, 06/05/22 14:27:00 EST, Capsule, [facility], Partial fill upon [...] Bilateral leg pain Confirmed Active *[facility]/CCA/CC-Matias Vela- [phone]/Health prison, active care coordination Confirmed Active POTS (postural orthostatic tachycardia syndrome) Confirmed Active Medulloblastoma Confirmed Active RUQ pain Confirmed Active Social History Social History Type Response Smoking Status Never smoker; Tobacc o user in household: No entered on: 04/11/16 Sex Patient Care team information Care Team Personnel Name: Vidhya Grace RN Position: [facility] RN Member Role: Primary Care Nurse Name: Sisi Hernandez MD Position: [facility] Primary Care Physician Member Role: PCP Address: Address: [address] [place] [address] Name: Lizzette oT RN Position: [facility] RN Member Role: Primary Care Nurse Name: Karolina Adkins MD Position: [facility] Physician -Physician Practices Member Role: Lifetime Consulting Physician Address: Address: [address] [place] [address] [facility] [place], [place] [address] Name: Isadora Godfrey RN Position: [facility] RN Member Role: Primary Care Nurse Name: Rossy Rowe RN Position: [facility] SN RN Member Role: Primary Care Nurse Name: Cindi Hayward Position: [facility] RN Member Role: Primary Care Nurse Name: Bela Mcmahon RN Position: [facility] Hospital Manager Sales Support Member Role: Primary Care Nurse Name: Nicole Hernandez RN Position: [facility] RN Member Role: Primary Care Nurse Name: Zac Castillo RN Position: [facility] ED RN W/OE and Tasks Member Role: Primary Care Nurse Name: Jeanne Grande RN Position: [facility] RN Member Role: Primary Care Nurse Care Team Related Persons Name: JOHNNY BEAR Address: [address] Name: BEAR TURNER SECONDARY Address: home [address] [place] [address] Name: ISATU ECKERT Address: [place] [address] Name: ISAAC VERDE PRIMARY Address: [address] Name: ADRY DURANT Name: PANCHO JEROME Address: [place] [address]
--- OUTSIDE RECORDS SUMMARY | 2024-04-27 10:14 | XMS_ITS | Continuity of Care Document ---
Author Organization [facility] Address [address] [place] [address]- Care Team Providers Care Transit Police Officer Name Role Phone Sisi Hernandez MD Primary Care Physician [place] [facility] [place](s): 10/01/23 - 10/31/23 [facility] [address] [place], [place] [address] Allergies, Adverse Reactions, Alerts [...] 13:12:00 EDT, Aerosol, Route to Pharmacy Electronically, [id number], [facility], ONLY ALBUTEROL HFA, CANCEL... Start Date: 02/15/22 Stop Date: 02/10/23 Status: Ordered Colace sodium 100 mg oral capsule 100 mg, 1, capsule, By Mouth, 2 times a day, PRN, # 180 capsule, Refills 3, Tot. Refills 3, Maintenance, for constipation, 08/09/23 14:49:00 EST, Route to Pharmacy Electronically, [facility], Partial fill upon [...] 6 Refills, Maintenance, 08/07/23 13:45:00 EST, Solution, [facility], 155, cm, 06/07/23 20:58:00 [...] 0 Refills, Maintenance, 02/15/22 13:10:00 EDT, Aerosol, [facility], new dosage, 155, cm, [...] 07/31/22 11:03:00 EST, Route to Pharmacy Electronically, [facility], Partial fill upon patient request if the prescription is for a schedule... Start Date: 07/31/22 Status: Ordered LORazepam 0.5 mg oral tablet See Instructions, TAKE 1 TABLET BY MOUTH TWO TIMES A DAY NEEDED FOR ANXIETY, # 28 tablet, 2 Refills, Maintenance, 12/05/22 12:25:00 EDT, [facility], 155, cm, 12/05/22 [...] Refills, Maintenance, 08/01/22 6:06:00 EST, Tablet, [facility], Partial fill upon patient request if the prescription is for a schedule II opioid drug., 155, cm,... Start Date: 08/01/22 Status: Ordered Symbicort 160mcg/4.5mcg Inhaler 2, puffs, Inhalation, 2 times a day, # 3 each, Refills 5, Tot. Refills 5, Maintenance, 09/27/22 12:00:00 EST, Aerosol, Route to Pharmacy Electronically, [id number], [facility], replaces flovent inhaler, 155, [...] 07/31/22 11:03:00 EST, Route to Pharmacy Electronically, [facility], Partial fill upon [...] Refills, Maintenance, 08/14/23 13:38:00 EST, Chew Tablet, [facility] 3, Partial fill upon patient request if the prescription is for a schedule II opioid drug., 155, cm, 08/14/23 13:0... Start Date: 08/14/23 Status: Ordered Vitamin D3 50,000 intl units oral capsule 1 capsule = 1,250 mcg, By Mouth, Every week, # 13 capsule, 1 Refills, Maintenance, 05/17/23 17:07:00 EDT, Capsule, [facility], Partial fill upon patient request [...] Bilateral leg pain Confirmed Active *[facility]N/CCA/CC-Matias Vela- [phone]/Health [facility], active care coordination Confirmed Active POTS [...] Primary Care Member Role: PCP Address: Address: [address] [place] [address] [facility] Name: Lizzette To RN Position: [facility] SN RN Member Role: Primary Care Nurse Name: Karolina Adkins MD Position: [facility] Physician - Primary Care Member Role: Lifetime Consulting Physician Address: Address: [address] [place] [address] [facility] [place], [place] [facility] Name: Isadora Godfrey RN Position: [facility] RN Member Role: Primary Care Nurse Name: Rossy Rowe RN Position: [facility] SN RN Member Role: Primary Care Nurse Name: Cindi Hayward RN Position: [facility] RN Member Role: Primary Care Nurse Name: Bela Mcmahon RN Position: [facility] Hospital Service Station Operator Member Role: Primary Care Nurse Name: Nicole Hernandez RN Position: [facility] RN Member Role: Primary Care Nurse Name: Zac Castillo RN Position: [facility] ED RN W/OE and Tasks Member Role: Primary Care Nurse Name: Jeanne Grande RN Position: [facility] RN Member Role: Primary Care Nurse Care Team Related Persons Name: BEAR TURNER Address: home [address] [place], [place] Name: BEAR TURNER SECONDARY Address: home [address] [place] [address] Name: ISATU ECKERT Address: home [place], [place] Name: ISAAC VERDE PRIMARY Address: home [address] [place] [address] Name: ADRY DURANT Name: PANCHO [place]OME Address: [place] [address]
--- OUTSIDE RECORDS SUMMARY | 2024-04-27 10:14 | XMS_ITS | Continuity of Care Document ---
Author Organization [facility] Address [address] [facility], 4t [place] [address]- Care Team Providers Care Forklift Operator Name Role Phone Sisi Hernandez MD Primary Care Physician Encounter [facility] [id number] Date(s): 02/10/22 - 06/10/22 [facility] Reveredave RussoDurianas [facility] [address] [facility], 4th [address] [place], [place] [address] Attending Physician: Abby Villalpando MD Allergies, Adverse Reactions, Alerts Substance Reaction Severity Status cefoxitin Cough Tightness in throat Active Fruit rash Allergy to fruit Active Sertraline Hydrochloride burning Act alessandra vancomycin [...] 11/16/21 23:51:00 EDT, Route to Pharmacy Electronically, [facility], Partial fill upon patient request if the presc... Start Date: 11/16/21 Status: Ordered albuterol CFC free 90 mcg/inh inhalation aerosol 2, puffs, Inhalation, Every 6 hours, PRN, # 2 each, Refills 11, Tot. Refills 11, Maintenance, 02/15/22 13:12:00 EDT, Aerosol, Route to Pharmacy Electronically, [id number], [facility] [...] 6 Refills, Maintenance, 10/03/21 12:18:00 EST, Solution, [facility] 3, 155, cm, 09/27/21 15:08:00 EST, Height, 68.5, kg, 06/03/20 13:18:00 EST, Dry Weight Start Date: 10/03/21 Status: Ordered cyanocobalamin 1000 mcg/ml injectable solution 1 mL = 1,000 mcg, Intramuscular, Every 30 days, # 3 mL, 6 Refills, Maintenance, 06/06/22 12:08:00 EST, Solution, [facility] 3, 155, cm, 04/06/22 14:56:00 EDT, Height, 67.5, kg, 04/06/22 14:56:00 EDT, Dry Weight Start Date: 06/06/22 Status: Ordered dilTIAZem 240 mg/24 hours oral tablet, extended release 1 tablet = 240 mg, By Mouth, Daily, FURTHER REFILLS BY PETROLEUM BLENDING PLANT OPERATOR, # 90 tablet, 0 Refills, Maintenance, 11/27/19 8:57:00 EDT, ER Tablet, [facility] 3, 155, cm, 10/07/19 12:25:00 EDT, [...] 11/16/21 23:51:00 EDT, Route to Pharmacy Electronically, [facility], Partial fill upon patient request if the prescription is... Start Date: 11/16/21 Status: Ordered LORazepam 0.5 mg oral tablet See Instructions, TAKE 1 TABLET BY MOUTH TWO TIMES A DAY NEEDED FOR ANXIETY, # 28 tablet, 2 Refills, Maintenance, 06/06/22 10:45:00 EST, [facility], 155, cm, 04/06/22 14:56:00 [...] Refills, Maintenance, 11/16/21 23:51:00 EDT, DIS Tablet, [facility], Partial fill upon patient request if the prescription is for a schedule II o... Start Date: 11/16/21 Status: Ordered Peridex 0.12% liquid 15 mL = 0.018 Gm, By Mouth, 2 times a day, # 420 mL, 0 Refills, Maintenance, 01/18/22 8:47:00 EDT, Liquid, [facility] [...] Confirmed Active Bilateral leg pain Confirmed Active *N/CCA/CC-[facility]- [phone]/Health [facility], active care coordination Confirmed Active POTS (postural orthostatic tachycardia syndrome) Confirmed Active Medulloblastoma Confirmed Active RUQ pain Confirmed Active Social History Social History Type Response Smoking Status Never smoker; Tobacc o user in household: No entered on: 04/11/16 Sex Female Patient Care team information Care Team Personnel Name: Vidhya Grace RN Position: [facility] RN Member Role: Primary Care Nurse Name: Sisi Hernandez MD Position: [facility] Primary Care Physician Member Role: PCP Address: Address: [address] [place] [id number] Name: Lizzette To RN Position: [facility] RN Member Role: Primary Care Nurse Name: Karolina Adkins MD Position: [facility] Physician -Physician Practices Member Role: Lifetime Consulting Physician Address: Address: [address] [place] [address] [facility] [place] [address]- Name: Isadora Godfrey RN Position: [facility] RN Member Role: Primary Care Nurse Name: Rossy Rowe RN Position: [facility] SN RN Member Role: Primary Care Nurse Name: Bela Mcmahon RN Position: [facility] Hospital Casting Operator Helper Member Role: Primary Care Nurse Name: Nicole Hernandez RN Position: [facility] RN Member Role: Primary Care Nurse Name: Zac Castillo RN Position: [facility] ED RN W/OE and Tasks Member Role: Primary Care Nurse Name: Jeanne Grande RN Position: [facility] RN Member Role: Primary Care Nurse Care Team Related Persons Name: JOHNNY BEAR Address: home [address] [place] [address] Name: ISATU ECKERT Address: [place] [address] Name: ADRY DURANT Name: PANCHO JEROME Address: [place] [address]
--- OUTSIDE RECORDS SUMMARY | 2024-04-27 10:14 | XMS_ITS | Continuity of Care Document ---
Author Organization [facility] Address [address] [place] [address]- Care Team Providers Care Natural Resources Engineer Name Role Phone Sisi Hernandez MD Primary Care Physician Encounter [facility] Date(s): 08/29/23 - 09/28/23 [facility] [address] [place] [id number]- [place] Allergies, Adverse Reactions, Alerts Substance Reaction [...] Refills, Maintenance, 12/21/22 14:40:00 EDT, ER Capsule, [facility], Partial fill upon patient request if the prescription is for a schedule II opioid drug., 155, cm, 12/05/22 11:... Start Date: 12/21/22 Status: Ordered albuterol CFC free 90 mcg/inh inhalation aerosol 2, puffs, Inhalation, Every 6 hours, PRN, # 2 each, Refills 11, Tot. Refills 11, Maintenance, 02/15/22 13:12:00 EDT, Aerosol, Route to Pharmacy Electronically, [id number], [facility], ONLY ALBUTEROL HFA, CANCEL... Start Date: 02/15/22 Stop Date: 02/10/23 Status: Ordered Colace sodium 100 mg oral capsule 100 mg, 1, capsule, By Mouth, 2 times a day, PRN, # 180 capsule, Refills 3, Tot. Refills 3, Maintenance, for constipation, 08/09/23 14:49:00 EST, Route to Pharmacy Electronically, [facility], Partial fill upon patient request if [...] 6 Refills, Maintenance, 08/07/23 13:45:00 EST, Solution, [facility], 155, cm, 06/07/23 20:58:00 [...] 0 Refills, Maintenance, 02/15/22 13:10:00 EDT, Aerosol, [facility], new dosage, 155, cm, [...] 11:03:00 EST, Route to Pharmacy Electronically, [facility], Partial fill upon patient request if the prescription is for a schedule... Start Date: 07/31/22 Status: Ordered LORazepam 0.5 mg oral tablet See Instructions, TAKE 1 TABLET BY MOUTH TWO TIMES A DAY NEEDED FOR ANXIETY, # 28 tablet, 2 Refills, Maintenance, 12/05/22 12:25:00 EDT, [facility], 155, cm, 12/05/22 [...] 08/01/22 6:06:00 EST, Tablet, [facility], Partial fill upon patient request if the prescription is for a schedule II opioid drug., 155, cm,... Start Date: 08/01/22 Status: Ordered Symbicort 160mcg/4.5mcg Inhaler 2, puffs, Inhalation, 2 times a day, # 3 each, Refills 5, Tot. Refills 5, Maintenance, 09/27/22 12:00:00 EST, Aerosol, Route to Pharmacy Electronically, [id number], [facility], replaces flovent [...] 10/02/23 15:40:00 EST, 09/25/23 15:40:00 EST, Tablet, [facility], Partial fill upon patient request if the prescription is for a schedule... Start Date: 09/25/23 Stop Date: 10/02/23 Status: Ordered Tylenol 325 mg oral tablet 975 mg, 3, tablet, By Mouth, Every 6 hours, PRN, # 50 tablet, Refills 0, Tot. Refills 0, Maintenance, for pain, 07/31/22 11:03:00 EST, Route to Pharmacy Electronically, [facility], Partial fill upon patient [...] Refills, Maintenance, 08/14/23 13:38:00 EST, Chew Tablet, [facility], Partial fill upon patient request if the prescription is for a schedule II opioid drug., 155, cm, 08/14/23 13:0... Start Date: 08/14/23 Status: Ordered Vitamin D3 50,000 intl units oral capsule 1 capsule = 1,250 mcg, By Mouth, Every week, # 13 capsule, 1 Refills, Maintenance, 05/17/23 17:07:00 EDT, Capsule, [facility], Partial fill upon patient [...] Confirmed Active Bilateral leg pain Confirmed Active *BHN/CCA/CC-[facility]- [phone]/Health group home, active care coordination Confirmed Active POTS (postural orthostatic tachycardia syndrome) Confirmed Active Medulloblastoma Confirmed Active RUQ pain Confirmed Active Tachy-sharmin syndrome Confirmed Active Social History Social History Type Response Smoking Status Never smoker; Tobacc o user in household: No entered on: 04/11/16 Sex Patient Care team information Care Team Personnel Name: Vidhya Grace RN Position: [facility] RN Member Role: Primary Care Nurse Name: Sisi Hernandez MD Position: [facility] Physician - Primary Care Member Role: PCP Address: Address: [address] [place] [address] Name: Lizzette To RN Position: [facility] SN RN Member Role: Primary Care Nurse Name: Karolina Adkins MD Position: [facility] Physician - Primary Care Member Role: Lifetime Consulting Physician Address: Address: [address] [place] [address] [facility] [address] Name: Isadora Godfrey RN Position: [facility] RN Member Role: Primary Care Nurse Name: Rossy Rowe RN Position: [facility] SN RN Member Role: Primary Care Nurse Name: Cindi Hayward RN Position: [facility] RN Member Role: Primary Care Nurse Name: Bela Mcmahon RN Position: [facility] Hospital Sustainable Landscape Architect Member Role: Primary Care Nurse Name: Nicole Hernandez RN Position: [facility] RN Member Role: Primary Care Nurse Name: Zac Castillo RN Position: [facility] ED RN W/OE and Tasks Member Role: Primary Care Nurse Name: Harjinder MONTELONGO, Jeanne Baker Position: S RN Member Role: Primary Care Nurse Care Team Related Persons Name: BEAR TURNER Address: home [address] [place] [address] Name: BEAR TURNER SECONDARY Address: [address] Name: ISATU ECKERT Address: [place] [address] Name: ISAAC VERDE PRIMARY Address: [address] [address] Name: ADRY DURANT Name: PANCHO JEROME Address: [place] [address]
--- OUTSIDE RECORDS SUMMARY | 2024-04-27 10:14 | XMS_ITS | Continuity of Care Document ---
Author Organization [facility] Address [address] [place] [address]- Care Team Providers Care Lab Analyst Name Role Phone Sisi Hernandez MD Primary Care Physician [phone] Encounter [facility] Date(s): 07/03/22 - 08/02/22 [facility] [address] [place], [place] [address] Allergies, Adverse Reactions, [...] 13:12:00 EDT, Aerosol, Route to Pharmacy Electronically, [id number], [facility], ONLY ALBUTEROL HFA, CANCEL... Start Date: 02/15/22 Stop Date: 02/10/23 Status: Ordered Colace sodium 100 mg oral capsule 100 mg, 1, capsule, By Mouth, 2 times a day, PRN, # 30 capsule, Refills 0, Tot. Refills 0, Maintenance, for constipation, 07/31/22 11:03:00 EST, Route to Pharmacy Electronically, [facility], Partial fill upon patient [...] 6 Refills, Maintenance, 06/06/22 12:08:00 EST, Solution, [facility], 155, cm, 04/06/22 14:56:00 [...] 0 Refills, Maintenance, 02/15/22 13:10:00 EDT, Aerosol, [facility], new dosage, 155, cm, [...] 07/31/22 11:03:00 EST, Route to Pharmacy Electronically, [facility], Partial fill upon patient request if the prescription is for a schedule... Start Date: 07/31/22 Status: Ordered LORazepam 0.5 mg oral tablet See Instructions, TAKE 1 TABLET BY MOUTH TWO TIMES A DAY NEEDED FOR ANXIETY, # 28 tablet, 2 Refills, Maintenance, 06/06/22 10:45:00 EST, [facility], 155, cm, 04/06/22 14:56:00 EDT, Height, 67.5, kg, 04/06/22 14:56:00 EDT, Dry Weight Start Date: 06/06/22 Status: Ordered Lovenox 40 mg/0.4 mL injectable solution = 40 mg, Subcutaneous Injection, Daily, for 9 days, # 9 each, 0 Refills, Acute 08/09/22 11:05:00 EST, 07/31/22 11:05:00 EST, [facility], Partial fill upon patient request if the prescription is for a schedule II opioid drug., 155, cm, 01... Start Date: 07/31/22 Stop Date: 08/09/22 Status: Ordered Metoprolol Tartrate 50 mg oral tablet 0 Refills, Maintenance, 03/04/20 9:58:00 EDT Start Date: 03/04/20 Status: Ordered MiraLax oral powder for reconstitution = 17 Gm, By Mouth, Daily, dissolve in water before taking, # 255 Gm, 0 Refills, Maintenance, 08/01/22 6:06:00 EST, REC Powder, [facility], Partial fill upon patient request if the prescription is for a schedule II opioid drug., 17 Gm By... Start Date: 08/01/22 Status: Ordered nitroglycerin 0.4 mg sublingual tablet 1 tablet = 0.4 mg, Sublingual, Every 5 minutes, PRN for chest pain, # 100 tablet, 0 Refills, Maintenance, 12/10/17 3:58:08 EDT, Tablet Start Date: 12/10/17 Status: Ordered oxyCODONE 5 mg oral tablet 5 mg, 1, tablet, By Mouth, Every 6 hours, PRN, for 5 days, # 12 tablet, Refills 0, Tot. Refills 0, Acute 08/05/22 11:03:00 EST, for pain, 07/31/22 11:03:00 EST, Route to Pharmacy Electronically, [facility], Partial fill upon patient requ... Start Date: 07/31/22 Stop Date: 08/05/22 Status: Ordered senna - oral tablet 2 tablet, By Mouth, Daily at bedtime, PRN for constipation, # 80 tablet, 0 Refills, Maintenance, 08/01/22 6:06:00 EST, Tablet, [facility], Partial fill upon patient request if the prescription is for a schedule II opioid drug., 155, cm,... Start Date: 08/01/22 Status: Ordered simethicone 80 mg oral tablet, chewable 80 mg, 1, tablet, Chew, 4 times a day, # 12 tablet, Refills 0, Tot. Refills 0, Maintenance, 07/31/22 11:03:00 EST, Route to Pharmacy Electronically, [facility], Partial fill upon patient [...] 07/31/22 11:03:00 EST, Route to Pharmacy Electronically, [facility], Partial fill upon patient [...] 3 Refills, Maintenance, 06/05/22 14:27:00 EST, Capsule, [facility], Partial fill upon patient [...] Bilateral leg pain Confirmed Active *BHN/CCA/CC-[facility]- [phone]/Health alf, active care coordination Confirmed Active POTS (postural orthostatic tachycardia syndrome) Confirmed Active Medulloblastoma Confirmed Active RUQ pain Confirmed Active Social History Social History Type Response Smoking Status Never smoker; Tobacc o user in household: No entered on: 04/11/16 Sex Female Patient Care team information Care Team Personnel Name: Vidhya Grace RN Position: [facility] RN Member Role: Primary Care Nurse Name: Sisi Hernandze MD Position: [facility] Primary Care Physician Member Role: PCP Address: Address: [address] [place] [address] Name: Lizzette To RN Position: [facility] RN Member Role: Primary Care Nurse Name: Karolina Adkins MD Position: [facility] Physician -Physician Practices Member Role: Lifetime Consulting Physician Address: Address: [address] [place] [address] [facility] [address] Name: Isadora Godfrey RN Position: [facility] RN Member Role: Primary Care Nurse Name: Rossy Rowe RN Position: [facility] SN RN Member Role: Primary Care Nurse Name: Cindi Hayward Position: [facility] RN Member Role: Primary Care Nurse Name: Bela Mcmahon RN Position: [facility] Hospital Desktop Manager Member Role: Primary Care Nurse Name: Nicole Hernandez RN Position: [facility] RN Member Role: Primary Care Nurse Name: Zac Castillo RN Position: [facility] ED RN W/OE and Tasks Member Role: Primary Care Nurse Name: Harjinder MONTELONGO, Jeanne Baker Position: S RN Member Role: Primary Care Nurse Care Team Related Persons Name: BEAR TURNER Address: home [address] [place] [address] Name: ISATU ECKERT Address: [place] [address] Name: ISAAC VERDE Address: [address] [address] Name: ADRY DURANT Name: PANCHO JEROME Address: [place] [address]
--- OUTSIDE RECORDS SUMMARY | 2024-04-27 10:14 | XMS_ITS | Continuity of Care Document ---
Author Organization [facility] Address [address] [place] [address]- Care Team Providers Care Radio Station Operator Name Role Phone Sisi Hernandez MD Primary Care Physician Encounter [facility] Date(s): 04/26/23 - 05/26/23 [facility] [address] [place], [place] [address] Allergies, Adverse Reactions, Alerts Substance Reaction [...] Refills, Maintenance, 12/21/22 14:40:00 EDT, ER Capsule, [facility], Partial fill upon patient request if the prescription is for a schedule II opioid drug., 155, cm, 12/05/22 11:... Start Date: 12/21/22 Status: Ordered albuterol CFC free 90 mcg/inh inhalation aerosol 2, puffs, Inhalation, Every 6 hours, PRN, # 2 each, Refills 11, Tot. Refills 11, Maintenance, 02/15/22 13:12:00 EDT, Aerosol, Route to Pharmacy Electronically, [id number], [facility], ONLY ALBUTEROL HFA, CANCEL... Start Date: 02/15/22 Stop Date: 02/10/23 Status: Ordered Colace sodium 100 mg oral capsule 100 mg, 1, capsule, By Mouth, 2 times a day, PRN, # 30 capsule, Refills 0, Tot. Refills 0, Maintenance, for constipation, 07/31/22 11:03:00 EST, Route to Pharmacy Electronically, [facility], Partial fill upon patient request if [...] 6 Refills, Maintenance, 09/04/22 8:50:00 EST, Solution, [facility], 155, cm, 08/14/22 13:52:00 EST, Height, [...] EST, Route to Pharmacy Electronically, [facility], Partial fill upon patient request if the prescription is for a schedule... Start Date: 07/31/22 Status: Ordered LORazepam 0.5 mg oral tablet See Instructions, TAKE 1 TABLET BY MOUTH TWO TIMES A DAY NEEDED FOR ANXIETY, # 28 tablet, 2 Refills, Maintenance, 12/05/22 12:25:00 EDT, [facility], 155, cm, 12/05/22 [...] 0 Refills, Maintenance, 08/01/22 6:06:00 EST, Tablet, [facility], Partial fill upon patient request if the prescription is for a schedule II opioid drug., 155, cm,... Start Date: 08/01/22 Status: Ordered Symbicort 160mcg/4.5mcg Inhaler 2, puffs, Inhalation, 2 times a day, # 3 each, Refills 5, Tot. Refills 5, Maintenance, 09/27/22 12:00:00 EST, Aerosol, Route to Pharmacy Electronically, [id number], [facility], replaces flovent inhaler, 155, cm,... [...] EST, Route to Pharmacy Electronically, [facility], Partial fill upon patient request if the prescription is... Start Date: 07/31/22 Status: Ordered verapamil 240 mg/12 hours oral tablet, extended release TAKE 1 TABLET BY MOUTH DAILY. Start Date: 02/05/23 Status: Ordered Vitamin D3 50,000 intl units oral capsule 1 capsule = 1,250 mcg, By Mouth, Every week, # 13 capsule, 1 Refills, Maintenance, 05/17/23 17:07:00 EDT, Capsule, [facility], Partial fill upon patient [...] Bilateral leg pain Confirmed Active *BHN/CCA/CC-[facility]- [phone]/Health senior care, active care coordination Confirmed Active POTS (postural [...] Sisi Hernandez MD Position: [facility] Physician - Primary Care Member Role: PCP Address: Address: [address] [place] [address]- Name: Lizzette To RN Position: [facility] SN RN Member Role: Primary Care Nurse Name: Karolina Adkins MD Position: [facility] Physician - Primary Care Member Role: Lifetime Consulting Physician Address: Address: [address] [place] [address] Geriatric [facility] Palliative Care [place], [place] - Name: Isadora Godfrey RN Position: [facility] RN Member Role: Primary Care Nurse Name: Rossy Rowe RN Position: [facility] SN RN Member Role: Primary Care Nurse Name: Cindi Hayward Position: [facility] RN Member Role: Primary Care Nurse Name: Bela Mcmahon RN Position: [facility] Hospital Ground Products Director Member Role: Primary Care Nurse Name: Nicole Hernandez RN Position: [facility] RN Member Role: Primary Care Nurse Name: Zac Castillo RN Position: [facility] ED RN W/OE and Tasks Member Role: Primary Care Nurse Name: Jeanne Grande RN Position: [facility] RN Member Role: Primary Care Nurse Care Team Related Persons Name: BEAR TURNER Address: home [address] [place] [address] Name: BEAR TURNER SECONDARY Address: home [address] [place] [address] Name: ISATU ECKERT Address: [place], [place] Name: ISAAC VERDE PRIMARY Address: home [address] [place] [address] Name: ADRY DURANT Name: PANCHO JEROME Address: [place] [address]
--- OUTSIDE RECORDS SUMMARY | 2024-04-27 10:14 | XMS_ITS | Continuity of Care Document ---
Author Organization [facility] Address [address] [place] [address]- Care Team Providers Care Yard Manager Name Role Phone Sisi Hernandez MD Primary Care Physician Encounter [facility] Date(s): 09/17/23 - 10/17/23 [facility] [address] [place], [place] [address] Allergies, Adverse Reactions, Alerts [...] Refills, Maintenance, 12/21/22 14:40:00 EDT, ER Capsule, [facility], Partial fill upon patient request if the prescription is for a schedule II opioid drug., 155, cm, 12/05/22 11:... Start Date: 12/21/22 Status: Ordered albuterol CFC free 90 mcg/inh inhalation aerosol 2, puffs, Inhalation, Every 6 hours, PRN, # 2 each, Refills 11, Tot. Refills 11, Maintenance, 02/15/22 13:12:00 EDT, Aerosol, Route to Pharmacy Electronically, [id number], [facility], ONLY ALBUTEROL HFA, CANCEL... Start Date: 02/15/22 Stop Date: 02/10/23 Status: Ordered Colace sodium 100 mg oral capsule 100 mg, 1, capsule, By Mouth, 2 times a day, PRN, # 180 capsule, Refills 3, Tot. Refills 3, Maintenance, for constipation, 08/09/23 14:49:00 EST, Route to Pharmacy Electronically, [facility], Partial fill upon patient request if [...] 6 Refills, Maintenance, 08/07/23 13:45:00 EST, Solution, [facility], 155, cm, 06/07/23 20:58:00 EST, [...] 0 Refills, Maintenance, 02/15/22 13:10:00 EDT, Aerosol, [facility], new dosage, 155, cm, 12/08/21 [...] 07/31/22 11:03:00 EST, Route to Pharmacy Electronically, [facility], Partial fill upon patient request if the prescription is for a schedule... Start Date: 07/31/22 Status: Ordered LORazepam 0.5 mg oral tablet See Instructions, TAKE 1 TABLET BY MOUTH TWO TIMES A DAY NEEDED FOR ANXIETY, # 28 tablet, 2 Refills, Maintenance, 12/05/22 12:25:00 EDT, [facility], 155, cm, 12/05/22 11:40:00 EDT, [...] 0 Refills, Maintenance, 08/01/22 6:06:00 EST, Tablet, [facility], Partial fill upon patient request if the prescription is for a schedule II opioid drug., 155, cm,... Start Date: 08/01/22 Status: Ordered Symbicort 160mcg/4.5mcg Inhaler 2, puffs, Inhalation, 2 times a day, # 3 each, Refills 5, Tot. Refills 5, Maintenance, 09/27/22 12:00:00 EST, Aerosol, Route to Pharmacy Electronically, [id number], [facility], [...] 07/31/22 11:03:00 EST, Route to Pharmacy Electronically, [facility] 3, Partial fill upon patient request [...] Refills, Maintenance, 08/14/23 13:38:00 EST, Chew Tablet, [facility] 3, Partial fill upon patient request if the prescription is for a schedule II opioid drug., 155, cm, 08/14/23 13:0... Start Date: 08/14/23 Status: Ordered Vitamin D3 50,000 intl units oral capsule 1 capsule = 1,250 mcg, By Mouth, Every week, # 13 capsule, 1 Refills, Maintenance, 05/17/23 17:07:00 EDT, Capsule, [facility] 3, Partial fill upon patient request [...] Active Bilateral leg pain Confirmed Active *BHN/CCA/CC-[facility]- [phone]/Health [facility], active care coordination Confirmed Active POTS (postural orthostatic tachycardia syndrome) Confirmed Active Medulloblastoma Confirmed Active RUQ pain Confirmed Active Tachy-sharmin syndrome Confirmed Active Social History Social History Type Response Smoking Status Never smoker; Tobacc o user in household: No entered on: 04/11/16 Sex Patient Care team information Care Team Personnel Name: Vidhya Grace RN Position: [facility] RN Member Role: Primary Care Nurse Name: Sisi Hernandez MD Position: [facility] Physician - Primary Care Member Role: PCP Address: Address: [address] [place] [address] Name: Lizzette To RN Position: [facility] SN RN Member Role: Primary Care Nurse Name: Karolina Adkins MD Position: [facility] Physician - Primary Care Member Role: Lifetime Consulting Physician Address: Address: [address] [place] [address] [facility] [address] Name: Isadora Godfrey RN Position: [facility] RN Member Role: Primary Care Nurse Name: Rossy Rowe RN Position: [facility] SN RN Member Role: Primary Care Nurse Name: Cindi Hayward RN Position: [facility] RN Member Role: Primary Care Nurse Name: Bela Mcmahon RN Position: [facility] Hospital Candy Dipper Member Role: Primary Care Nurse Name: Nicole Hernandez RN Position: [facility] RN Member Role: Primary Care Nurse Name: Zac Castillo RN Position: [facility] ED RN W/OE and Tasks Member Role: Primary Care Nurse Name: Harjinder MONTELONGO, Jeanne Baker Position: [facility] RN Member Role: Primary Care Nurse Care Team Related Persons Name: BEAR TURNER Address: home [address] [place] [address] Name: BEAR TURNER SECONDARY Address: [address] Name: ISATU ECKERT Address: [place] [address] Name: ISAAC VERDE PRIMARY Address: [address] [address] Name: ADRY DURANT Name: PANCHO JEROME Address: [place] [address]
--- OUTSIDE RECORDS SUMMARY | 2024-04-27 10:14 | XMS_ITS | Continuity of Care Document ---
Author Organization [facility] Address [address] [place] [address]- Care Team Providers Care Ticketing Agent Name Role Phone Sisi Hernandez MD Primary Care Physician Encounter [facility] Date(s): 01/03/21 - 01/10/21 [facility] [address] [place], [place] [address] Attending Physician: Sisi [...] 12/22/20 12:53:00 EDT, Route to Pharmacy Electronically, [facility] Tablet, Partial fill upon patient request if the... Start Date: 12/22/20 Stop Date: 01/21/21 Status: Ordered albuterol CFC free 90 mcg/inh inhalation aerosol 2, puffs, Inhalation, Every 6 hours, PRN, # 2 each, Refills 11, Tot. Refills 11, Maintenance, 12/02/20 8:50:00 EDT, Aerosol, Route to Pharmacy Electronically, [id number], [facility], 155, cm, 06/03/20 [...] 6 Refills, Maintenance, 06/15/20 11:56:00 EST, Solution, [facility], 155, cm, 06/03/20 13:15:00 EST, Height, 68.5, kg, 06/03/20 13:18:00 EST, Dry Weight Start Date: 06/15/20 Status: Ordered dilTIAZem 240 mg/24 hours oral tablet, extended release 1 tablet = 240 mg, By Mouth, Daily, FURTHER REFILLS BY ACTIVATED SLUDGE OPERATOR, # 90 tablet, 0 Refills, Maintenance, 11/27/19 8:57:00 EDT, ER Tablet, [facility], 155, cm, 10/07/19 [...] Refills, Maintenance, 05/06/20 15:17:00 EDT, [facility], 155, cm, [...] 15:30:53 EST, Aerosol, Route to Pharmacy Electronically, [id number]... Start Date: 09/12/18 Stop Date: 02/09/19 Status: Ordered ProAir HFA 90 mcg/inh inhalation aerosol with adapter 2, puffs, Inhalation, Every 4 hours, PRN, use with spacer chamber BRAND NAME MEDICALLY NECESSARY, #8.5 Gm, Refills 0, Tot. Refills 0, Maintenance, 12/05/20 15:38:00 EDT, Aerosol, Route to Pharmacy Electronically, [id number]... Start Date: 12/05/20 Status: Ordered ramelteon 8 mg oral tablet 1 tablet = 8 mg, By Mouth, Daily at bedtime, # 30 tablet, 11 Refills, Maintenance, 12/02/20 8:48:00EDT, [facility], Partial fill upon [...] 2 Refills, Maintenance, 08/04/20 12:39:00 EST, Capsule, [facility], Partial fill upon [...] Active Bilateral leg pain(Confirmed) Active *BHN/CCA/CC-[facility]- [phone]/Health usp, active care coordination(Confirmed) Active POTS (postural orthostatic t achycardia syndrome)(Confirmed) Active Medulloblastoma(Confirmed) Active RUQ pain(Confirmed) Active Viral URI(Confirmed) Active Social History Social History Type Response Smoking Status Never smoker; Tobacc o user in household: No entered on: 04/11/16 Sex
--- OUTSIDE RECORDS SUMMARY | 2024-04-27 10:14 | XMS_ITS | Continuity of Care Document ---
Author Organization [facility] Address [address] [place] [address]- Care Team Providers Care Naturalist Name Role Phone Mary KEATING, Sisi Almanza Primary Care Physician En[place] [facility] Date(s): 02/02/22 - 03/04/22 [facility] [address] [place], [place] [address] Attending Physician: Angel Gomez Admitting [...] 11/16/21 23:51:00 EDT, Route to Pharmacy Electronically, [facility], Partial fill upon patient request if the presc... Start Date: 11/16/21 Status: Ordered albuterol CFC free 90 mcg/inh inhalation aerosol 2, puffs, Inhalation, Every 6 hours, PRN, # 2 each, Refills 11, Tot. Refills 11, Maintenance, 02/15/22 13:12:00 EDT, Aerosol, Route to Pharmacy Electronically, [id number], [facility], ONLY ALBUTEROL HFA, [...] 6 Refills, Maintenance, 10/03/21 12:18:00 EST, Solution, [facility], 155, cm, 09/27/21 15:08:00 EST, Height, 68.5, kg, 06/03/20 13:18:00 EST, Dry Weight Start Date: 10/03/21 Status: Ordered cyanocobalamin 1000 mcg/ml injectable solution 1 mL = 1,000 mcg, Intramuscular, Every 30 days, # 3 mL, 6 Refills, Maintenance, 06/15/20 11:56:00 EST, Solution, [facility], 155, cm, 06/03/20 13:15:00 EST, Height, 68.5, kg, 06/03/20 13:18:00 EST, Dry Weight Start Date: 06/15/20 Status: Ordered dilTIAZem 240 mg/24 hours oral tablet, extended release 1 tablet = 240 mg, By Mouth, Daily, FURTHER REFILLS BY CORPORATION SECRETARY, # 90 tablet, 0 Refills, Maintenance, 11/27/19 8:57:00 EDT, ER Tablet, [facility] 3, 155, cm, 10/07/19 12:25:00 EDT, Height, 63, kg, 07/01/19 19:58:00 EST, Dry Weight Start Date: 11/27/19 Status: Ordered Flovent HFA 220 mcg/inh inhalation aerosol 2 puffs, Inhalation, 2 times a day, new dosage, # 12 Gm, 0 Refills, Maintenance, 02/15/22 13:10:00 EDT, Aerosol, [facility], new dosage, 155, [...] 11/16/21 23:51:00 EDT, Route to Pharmacy Electronically, [facility], Partial fill upon patient request if the prescription is... Start Date: 11/16/21 Status: Ordered LORazepam 0.5 mg oral tablet See Instructions, TAKE 1 TABLET BY MOUTH TWO TIMES A DAY NEEDED FOR ANXIETY, # 28 tablet, 2 Refills, Maintenance, 05/06/20 15:17:00 EDT, [facility], 155, cm, [...] Refills, Maintenance, 11/16/21 23:51:00 EDT, DIS Tablet, [facility], Partial fill upon patient request if the prescription is for a schedule II o... Start Date: 11/16/21 Status: Ordered Peridex 0.12% liquid 15 mL = 0.018 Gm, By Mouth, 2 times a day, # 420 mL, 0 Refills, Maintenance, 01/18/22 8:47:00 EDT, Liquid, [facility], Partial fill upon [...] 3 Refills, Maintenance, 10/25/21 11:13:00 EDT, Capsule, [facility], Partial fill upon [...] Active Bilateral leg pain(Confirmed) Active *BHN/CCA/CC-[facility]- [phone]/Health jail, active care coordination(Confirmed) Active POTS (postural orthostatic t achycardia syndrome)(Confirmed) Active Medulloblastoma(Confirmed) Active RUQ pain(Confirmed) Active Social History Social History Type Response Smoking Status Never smoker; Tobacc o user in household: No entered on: 04/11/16 Sex Female
--- OUTSIDE RECORDS SUMMARY | 2024-04-27 10:14 | XMS_ITS | Continuity of Care Document ---
Author Organization [facility] Address [address] [place] [address]- Care Team Providers Care Jig Box Operator Name Role Phone Mary KEATING, Sisi Almanza Primary Care Physician Encounter [facility] Date(s): 05/28/23 - 06/27/23 [facility] [address] [place] [address]- [place] Allergies, Adverse Reactions, Alerts Substance Reaction [...] Refills, Maintenance, 12/21/22 14:40:00 EDT, ER Capsule, [facility], Partial fill upon patient request if the prescription is for a schedule II opioid drug., 155, cm, 12/05/22 11:... Start Date: 12/21/22 Status: Ordered albuterol CFC free 90 mcg/inh inhalation aerosol 2, puffs, Inhalation, Every 6 hours, PRN, # 2 each, Refills 11, Tot. Refills 11, Maintenance, 02/15/22 13:12:00 EDT, Aerosol, Route to Pharmacy Electronically, [id number], [facility], ONLY ALBUTEROL HFA, CANCEL... Start Date: 02/15/22 Stop Date: 02/10/23 Status: Ordered Colace sodium 100 mg oral capsule 100 mg, 1, capsule, By Mouth, 2 times a day, PRN, # 30 capsule, Refills 0, Tot. Refills 0, Maintenance, for constipation, 07/31/22 11:03:00 EST, Route to Pharmacy Electronically, [facility], Partial fill upon patient request [...] 6 Refills, Maintenance, 09/04/22 8:50:00 EST, Solution, [facility] 3, 155, cm, 08/14/22 13:52:00 [...] 0 Refills, Maintenance, 02/15/22 13:10:00 EDT, Aerosol, [facility] 3, new dosage, 155, cm, [...] 12:00:00 EST, Aerosol, Route to Pharmacy Electronically, [id number], [facility], replaces flovent inhaler, 155, cm,... [...] Bilateral leg pain Confirmed Active *BHN/CCA/CC-[facility]- [phone]/Health [facility], active care coordination Confirmed Active POTS (postural orthostatic tachycardia syndrome) Confirmed Active Medulloblastoma Confirmed Active RUQ pain Confirmed Active Tachy-sharmin syndrome Confirmed Active Social History Social History Type Response Smoking Status Never smoker; Tobacc o user in household: No entered on: 04/11/16 Sex Patient Care team information Care Team Personnel Name: Vidhya Grace RN Position: [facility] RN Member Role: Primary Care Nurse Name: Sisi Hernandez MD Position: [facility] Physician - Primary Care Member Role: PCP Address: Address: [address] [place] [address] Name: Lizzette To RN Position: [facility] SN RN Member Role: Primary Care Nurse Name: Karolina Adkins MD Position: [facility] Physician - Primary Care Member Role: Lifetime Consulting Physician Address: Address: [address] [place] [address] [facility] [place] [address]- Name: Isadora Godfrey RN Position: [facility] RN Member Role: Primary Care Nurse Name: Rossy Rowe RN Position: [facility] SN RN Member Role: Primary Care Nurse Name: Cindi Hayward RN Position: [facility] RN Member Role: Primary Care Nurse Name: Bela Mcmahon RN Position: [facility] Hospital Commercial Banker Member Role: Primary Care Nurse Name: Nicole Hernandez RN Position: [facility] RN Member Role: Primary Care Nurse Name: Zac Castillo RN Position: [facility] ED RN W/OE and Tasks Member Role: Primary Care Nurse Name: Jeanne Grande RN Position: [facility] RN Member Role: Primary Care Nurse Care Team Related Persons Name: BEAR TURNER Address: home [address] [place] [address] Name: BEAR TURNER SECONDARY Address: home [address] [place] [address] Name: ISATU ECKERT Address: [place] [address] Name: ISAAC VERDE PRIMARY Address: home [address] [place] [address] Name: ADRY DURANT Name: PANCHO JEROME Address: [place] [address]
--- OUTSIDE RECORDS SUMMARY | 2024-04-27 10:14 | XMS_ITS | Continuity of Care Document ---
Author Organization [facility] Address [address] [place] [address]- Care Team Providers Care Calender Wind Up Tender Name Role Phone Sisi Hernandez MD Primary Care Physician Encounter [facility] [place] [facility] R [id number] Date(s): 12/02/20 - 12/09/20 [facility] [address] [place] [place] [address] Encounter Diagnosis POTS (postural orthostatic tachycardia syndrome)(Discharge Diagnosis) - 12/02/20 Memory change(Discharge Diagnosis) - 12/02/20 Somnolence, daytime(Discharge Diagnosis) - 12/02/20 Attending Physician: Sisi Hernandez MD Allergies, Adverse [...] 8:50:00 EDT, Aerosol, Route to Pharmacy Electronically, [id number], [facility], 155, cm, 06/03/20 [...] 6 Refills, Maintenance, 06/15/20 11:56:00 EST, Solution, [facility], 155, cm, 06/03/20 13:15:00 EST, Height, 68.5, kg, 06/03/20 13:18:00 EST, Dry Weight Start Date: 06/15/20 Status: Ordered dilTIAZem 240 mg/24 hours oral tablet, extended release 1 tablet = 240 mg, By Mouth, Daily, FURTHER REFILLS BY CLINICAL CYTOPATHOLOGIST, # 90 tablet, 0 Refills, Maintenance, 11/27/19 8:57:00 EDT, ER Tablet, [facility], 155, cm, 10/07/19 12:25:00 EDT, [...] tablet, 2 Refills, Maintenance, 05/06/20 15:17:00 EDT, [facility], 155, cm, [...] 15:30:53 EST, Aerosol, Route to Pharmacy Electronically, [id number]... Start Date: 09/12/18 Stop Date: 02/09/19 Status: Ordered ProAir HFA 90 mcg/inh inhalation aerosol with adapter 2, puffs, Inhalation, Every 4 hours, PRN, use with spacer chamber BRAND NAME MEDICALLY NECESSARY, #8.5 Gm, Refills 0, Tot. Refills 0, Maintenance, 12/05/20 15:38:00 EDT, Aerosol, Route to Pharmacy Electronically, [id number]... Start Date: 12/05/20 Status: Ordered ramelteon 8 mg oral tablet 1 tablet = 8 mg, By Mouth, Daily at bedtime, # 30 tablet, 11 Refills, Maintenance, 12/02/20 8:48:00EDT, [facility], Partial fill [...] 2 Refills, Maintenance, 08/04/20 12:39:00 EST, Capsule, [facility], Partial [...] Near syncope(Confirmed) Active Bilateral leg pain(Confirmed) Active *BHN/CCA/CC-[facility]- [phone]/Health assisted, active care coordination(Confirmed) Active POTS (postural orthostatic t achycardia syndrome)(Confirmed) Active Medulloblastoma(Confirmed) Active RUQ pain(Confirmed) Active Viral URI(Confirmed) Active Diagnosis Diagnosis Type Effective Dates Health Status Clinical Service Informant POTS (postural orthostatic tachycardia syndrome) Discharge Diagnosis 12/02/20 Memory change Discharge Diagnosis 12/02/20 Somnolence, daytime Discharge Diagnosis 12/02/20 Social History Social History Type Response Smoking Status Never smoker; Tobacc o user in household: No entered on: 04/11/16 Sex
--- OUTSIDE RECORDS SUMMARY | 2024-04-27 10:14 | XMS_ITS | Continuity of Care Document ---
Author Organization [facility] Address [address] [facility], [address], [address] [place] [address]- Care Team Providers Care Care Assistant Name Role Phone Sisi Hernandez MD Primary Care Physician [place] [facility] [place](s): 01/25/21 - 02/24/21 [facility] [address] [facility], [address], [address] [place] [address] Allergies, Adverse Reactions, Alerts [...] 8:50:00 EDT, Aerosol, Route to Pharmacy Electronically, [id number], [facility], 155, cm, 06/03/20 13:15:00 E... Start [...] 6 Refills, Maintenance, 06/15/20 11:56:00 EST, Solution, [facility] 3, 155, cm, 06/03/20 13:15:00 EST, Height, 68.5, kg, 06/03/20 13:18:00 EST, Dry Weight Start Date: 06/15/20 Status: Ordered dilTIAZem 240 mg/24 hours oral tablet, extended release 1 tablet = 240 mg, By Mouth, Daily, FURTHER REFILLS BY PIPELINE SUPERINTENDENT DIVISION, # 90 tablet, 0 Refills, Maintenance, 11/27/19 8:57:00 EDT, ER Tablet, [facility] 3, 155, cm, 10/07/19 12:25:00 EDT, [...] tablet, 2 Refills, Maintenance, 05/06/20 15:17:00 EDT, [facility], 155, cm, [...] 15:30:53 EST, Aerosol, Route to Pharmacy Electronically, [id number]... Start Date: 09/12/18 Stop Date: 02/09/19 Status: Ordered ProAir HFA 90 mcg/inh inhalation aerosol with adapter 2, puffs, Inhalation, Every 4 hours, PRN, use with spacer chamber BRAND NAME MEDICALLY NECESSARY, #8.5 Gm, Refills 0, Tot. Refills 0, Maintenance, 12/05/20 15:38:00 EDT, Aerosol, Route to Pharmacy Electronically, [id number]... Start Date: 12/05/20 Status: Ordered ramelteon 8 mg oral tablet 1 tablet = 8 mg, By Mouth, Daily at bedtime, # 30 tablet, 11 Refills, Maintenance, 12/02/20 8:48:00EDT, [facility], Partial fill upon patient [...] 2 Refills, Maintenance, 08/04/20 12:39:00 EST, Capsule, [facility], Partial fill upon patient [...] Active Bilateral leg pain(Confirmed) Active *BHN/CCA/CC-[facility]- [phone]/Health alf, active care coordination(Confirmed) Active POTS (postural orthostatic t achycardia syndrome)(Confirmed) Active Medulloblastoma(Confirmed) Active RUQ pain(Confirmed) Active Viral URI(Confirmed) Active Social History Social History Type Response Smoking Status Never smoker; Tobacc o user in household: No entered on: 04/11/16 Sex
--- OUTSIDE RECORDS SUMMARY | 2024-04-27 10:14 | XMS_ITS | Continuity of Care Document ---
Author Organization [facility] Address [address] [place] [address]- Care Team Providers Care Yarn Wrapper Name Role Phone Sisi Hernandez MD Primary Care Physician [phone] [place] [facility] [place]23 - 07/21/23 [facility] [address] [address] Attending Physician: Admjuan josé, Angel Admitting Physician: Admtr, Ar8 Referring Physician: Admtr, [...] Refills, Maintenance, 12/21/22 14:40:00 EDT, ER Capsule, [facility], Partial fill upon patient request if the prescription is for a schedule II opioid drug., 155, cm, 12/05/22 11:... Start Date: 12/21/22 Status: Ordered albuterol CFC free 90 mcg/inh inhalation aerosol 2, puffs, Inhalation, Every 6 hours, PRN, # 2 each, Refills 11, Tot. Refills 11, Maintenance, 02/15/22 13:12:00 EDT, Aerosol, Route to Pharmacy Electronically, [id number], [facility], ONLY ALBUTEROL HFA, CANCEL... Start Date: 02/15/22 Stop Date: 02/10/23 Status: Ordered Colace sodium 100 mg oral capsule 100 mg, 1, capsule, By Mouth, 2 times a day, PRN, # 30 capsule, Refills 0, Tot. Refills 0, Maintenance, for constipation, 07/31/22 11:03:00 EST, Route to Pharmacy Electronically, [facility], Partial fill upon patient request if [...] 09/04/22 8:50:00 EST, Solution, [facility], 155, cm, 08/14/22 13:52:00 EST, Height, [...] Route to Pharmacy Electronically, [facility], Partial fill upon patient request if the prescription is for a schedule... Start Date: 07/31/22 Status: Ordered LORazepam 0.5 mg oral tablet See Instructions, TAKE 1 TABLET BY MOUTH TWO TIMES A DAY NEEDED FOR ANXIETY, # 28 tablet, 2 Refills, Maintenance, 12/05/22 12:25:00 EDT, [facility], 155, [...] 0 Refills, Maintenance, 08/01/22 6:06:00 EST, Tablet, [facility], Partial fill upon patient request if the prescription is for a schedule II opioid drug., 155, cm,... Start Date: 08/01/22 Status: Ordered Symbicort 160mcg/4.5mcg Inhaler 2, puffs, Inhalation, 2 times a day, # 3 each, Refills 5, Tot. Refills 5, Maintenance, 09/27/22 12:00:00 EST, Aerosol, Route to Pharmacy Electronically, [id number], [facility], replaces flovent inhaler, 155, [...] 1 Refills, Maintenance, 05/17/23 17:07:00 EDT, Capsule, [facility], Partial fill upon patient request if [...] Bilateral leg pain Confirmed Active *N/CCA/CC-[facility]- [phone]/Health [facility], active care coordination Confirmed Active POTS (postural orthostatic tachycardia syndrome) Confirmed Active Medulloblastoma Confirmed Active RUQ pain Confirmed Active Tachy-sharmin syndrome Confirmed Active Social History Social History Type Response Smoking Status Never smoker; Tobacc o user in household: No entered on: 04/11/16 Sex Patient Care team information Care Team Personnel Name: Sanjay MONTELONGO, Vidhya Position: [facility] RN Member Role: Primary Care Nurse Name: Sisi Hernandez MD Position: [facility] Physician - Primary Care Member Role: PCP Address: Address: [address] [place] [address] - Name: Lizzette To RN Position: [facility] SN RN Member Role: Primary Care Nurse Name: Karolina Adkins MD Position: [facility] Physician - Primary Care Member Role: Lifetime Consulting Physician Address: Address: [address] [place] [address] [facility] [place], [place] - Name: Isadora Godfrey RN Position: [facility] RN Member Role: Primary Care Nurse Name: Rossy Rowe RN Position: [facility] SN RN Member Role: Primary Care Nurse Name: Cindi Hayward RN Position: [facility] RN Member Role: Primary Care Nurse Name: Bela Mcmahon RN Position: [facility] Hospital Shoe Repairer Apprentice Member Role: Primary Care Nurse Name: Nicole Hernandez RN Position: [facility] RN Member Role: Primary Care Nurse Name: Zac Castillo RN Position: [facility] ED RN W/OE and Tasks Member Role: Primary Care Nurse Name: Jeanne Grande RN Position: [facility] RN Member Role: Primary Care Nurse Care Team Related Persons Name: JOHNNY BEAR Address: home [address] [place] [address] Name: BEAR TURNER SECONDARY Address: home [address] [place] [address] Name: ISATU ECKERT Address: [place] [address] Name: ISAAC VERDE PRIMARY Address: home [address] [place] [address] Name: ADRY DURANT Name: PANCHO J[place]OME Address: [place] [address]
--- OUTSIDE RECORDS SUMMARY | 2024-04-27 10:14 | XMS_ITS | Continuity of Care Document ---
Author Organization [facility] Address Unknown Care Team Providers Care Refrigerator Crater Name Role Phone Mary KEATING, Sisi Almanza Primary Care Physician [place] [facility] [place] 09[place]21 [facility] Allergies, Adverse Reactions, Alerts Substance [...] 0 Refills, Maintenance, 08/24/21 13:15:00 EST, Tablet, [facility] Start Date: 08/24/21 Status: Ordered Adderall XR 15 mg oral capsule, extended release 1 capsule = 15 mg, By Mouth, 2 times a day, Change from 10 mg XR and increase to 2 times per day. To take with short acting 5 mg, # 60 capsule, 0 Refills, Maintenance, 08/24/21 13:13:00 EST, ER Capsule, [facility], Partial fill upon leonardo... Start Date: 08/24/21 Status: Ordered albuterol CFC free 90 mcg/inh inhalation aerosol 2, puffs, Inhalation, Every 6 hours, PRN, # 2 each, Refills 11, Tot. Refills 11, Maintenance, 12/02/20 8:50:00 EDT, Aerosol, Route to Pharmacy Electronically, [id number], [facility], 155, cm, 06/03/20 13:15:00 [...] 6 Refills, Maintenance, 06/15/20 11:56:00 EST, Solution, [facility], 155, cm, 06/03/20 13:15:00 EST, Height, 68.5, kg, 06/03/20 13:18:00 EST, Dry Weight Start Date: 06/15/20 Status: Ordered Diflucan 150 mg oral tablet 1 tablet = 150 mg, By Mouth, Every 48 hours, # 2 tablet, 0 Refills, Soft Stop, 07/31/21 10:46:00 EST, Tablet, [facility], Partial fill upon patient request if the prescription is for a schedule II opioid drug., 155, cm, 06/09/21 14:21:00... Start Date: 07/31/21 Status: Ordered dilTIAZem 240 mg/24 hours oral tablet, extended release 1 tablet = 240 mg, By Mouth, Daily, FURTHER REFILLS BY COTTRELL OPERATOR, # 90 tablet, 0 Refills, Maintenance, 11/27/19 8:57:00 EDT, ER Tablet, [facility], 155, cm, 10/07/19 12:25:00 [...] tablet, 2 Refills, Maintenance, 05/06/20 15:17:00 EDT, [facility], 155, cm, [...] 15:30:53 EST, Aerosol, Route to Pharmacy Electronically, [id number]... Start Date: 09/12/18 Stop Date: 02/09/19 Status: Ordered ProAir HFA 90 mcg/inh inhalation aerosol with adapter 2, puffs, Inhalation, Every 4 hours, PRN, use with spacer chamber BRAND NAME MEDICALLY NECESSARY, #8.5 Gm, Refills 0, Tot. Refills 0, Maintenance, 12/05/20 15:38:00 EDT, Aerosol, Route to Pharmacy Electronically, [id number]... Start Date: 12/05/20 Status: Ordered Sunosi 75 [...] 2 Refills, Maintenance, 08/04/20 12:39:00 EST, Capsule, [facility], Partial [...] Active Bilateral leg pain(Confirmed) Active *BHN/CCA/CC-Matias Vela- [phone]/Health chcf, active care coordination(Confirmed) Active POTS (postural orthostatic t achycardia syndrome)(Confirmed) Active Medulloblastoma(Confirmed) Active RUQ pain(Confirmed) Active Social History Social History Type Response Smoking Status Never smoker; Tobacc o user in household: No entered on: 04/11/16 Sex Female
--- OUTSIDE RECORDS SUMMARY | 2024-04-27 10:14 | XMS_ITS | Continuity of Care Document ---
Author Organization [facility] Address [address] [place] [address]- Care Team Providers Care Adult Care Manager Name Role Phone Mary KEATING, Sisi Almanza Primary Care Physician Encounter [facility] Date(s): 09/13/22 - 10/13/[address] [address]- Allergies, Adverse Reactions, Alerts Substance Reaction Severity [...] 13:12:00 EDT, Aerosol, Route to Pharmacy Electronically, [id number], [facility], ONLY ALBUTEROL [...] 6 Refills, Maintenance, 09/04/22 8:50:00 EST, Solution, [facility], 155, cm, 08/14/22 [...] Route to Pharmacy Electronically, [facility], Partial fill upon patient request if the prescription is for a schedule... Start Date: 07/31/22 Status: Ordered LORazepam 0.5 mg oral tablet See Instructions, TAKE 1 TABLET BY MOUTH TWO TIMES A DAY NEEDED FOR ANXIETY, # 28 tablet, 2 Refills, Maintenance, 06/06/22 10:45:00 EST, [facility], 155, cm, 04/06/22 [...] Refills, Maintenance, 08/01/22 6:06:00 EST, REC Powder, [facility], Partial fill upon patient request [...] Refills, Maintenance, 08/01/22 6:06:00 EST, Tablet, [facility] 3, Partial fill upon patient request if the prescription is for a schedule II opioid drug., 155, cm,... Start Date: 08/01/22 Status: Ordered Symbicort 160mcg/4.5mcg Inhaler 2, puffs, Inhalation, 2 times a day, # 3 each, Refills 5, Tot. Refills 5, Maintenance, 09/27/22 12:00:00 EST, Aerosol, Route to Pharmacy Electronically, [id number], [facility], replaces flovent inhaler, 155, [...] 3 Refills, Maintenance, 06/05/22 14:27:00 EST, Capsule, [facility], Partial [...] Bilateral leg pain Confirmed Active *BHN/CCA/CC-Matias Vela- [phone]/Health long term, active care coordination Confirmed Active [...] Sisi Hernandez MD Position: [facility] Primary Care Physician Member Role: PCP Address: Address: [address] [place] [id number] Name: Lizzette To RN Position: [facility] RN Member Role: Primary Care Nurse Name: Karolina Adkins MD Position: [facility] Physician -Physician Practices Member Role: Lifetime Consulting Physician Address: Address: [address] [place] [address] [facility] [place], [place] [address] Name: Isadora Godfrey RN Position: [facility] RN Member Role: Primary Care Nurse Name: Rossy Rowe RN Position: [facility] SN RN Member Role: Primary Care Nurse Name: Cindi Hayward Position: [facility] RN Member Role: Primary Care Nurse Name: Bela Mcmahon RN Position: [facility] Hospital Preparation Supervisor Canning Member Role: Primary Care Nurse Name: Nicole Hernandez RN Position: [facility] RN Member Role: Primary Care Nurse Name: Zac Castillo RN Position: [facility] ED RN W/OE and Tasks Member Role: Primary Care Nurse Name: Jeanne Grande RN Position: [facility] RN Member Role: Primary Care Nurse Care Team Related Persons Name: TURNER, BEAR Address: home [address], [place] Name: BEAR TURNER SECONDARY Address: home [address] [place] [address] Name: ISATU ECKERT Address: [place] [address] Name: ISAAC VERDE PRIMARY Address: [address] [address] Name: ADRY DURANT Name: PANCHO [place]OME Address: [place] [address]
--- OUTSIDE RECORDS SUMMARY | 2024-04-27 10:14 | XMS_ITS | Continuity of Care Document ---
Author Organization [facility] Address [address] [place] [address]- Care Team Providers Care Diesel Mechanic Apprentice Name Role Phone Mary KEATING, Sisi Almanza Primary Care Physician [phone] [place] [facility] [place] 05/05/20 - 06/04/20 [facility] [address] [place], [place] [address] Allergies, Adverse Reactions, Alerts Substance Reaction Severity [...] 8:59:00 EDT, Aerosol, Route to Pharmacy Electronically, [id number], [facility], 155, cm, 10/07/19 12:25:00 E... Start [...] 5 Refills, Maintenance, 03/04/20 9:53:00 EDT, Solution, [facility], 155, cm, 10/07/19 12:25:00 EDT, Height, 63, kg, 07/01/19 19:58:00 EST, Dry Weight Start Date: 03/04/20 Status: Ordered dilTIAZem 240 mg/24 hours oral tablet, extended release 1 tablet = 240 mg, By Mouth, Daily, FURTHER REFILLS BY SOLAR TECHNICIAN, # 90 tablet, 0 Refills, Maintenance, 11/27/19 8:57:00 EDT, ER Tablet, [facility], 155, cm, 10/07/19 12:25:00 [...] tablet, 2 Refills, Maintenance, 05/06/20 15:17:00 EDT, [facility], 155, cm, 05/03/20 18:55:00 EDT, Height, [...] 15:30:53 EST, Aerosol, Route to Pharmacy Electronically, [id number]... Start Date: 09/12/18 Stop Date: 02/09/19 Status: [...] Active Bilateral leg pain(Confirmed) Active *BHN/CCA/CC-Matias Vela- [phone]/Health detention, active care coordination(Confirmed) Active POTS (postural orthostatic t achycardia syndrome)(Confirmed) Active Medulloblastoma(Confirmed) Active RUQ pain(Confirmed) Active Social History Social History Type Response Smoking Status Never smoker; Tobacc o user in household: No entered on: 04/11/16 Sex
--- OUTSIDE RECORDS SUMMARY | 2024-04-27 10:15 | XMS_ITS | Continuity of Care Document ---
Author Organization [facility] Address [address], [address] [place] [address]- Care Team Providers Care Tire And Tube Repairer Name Role Phone Mary KEATING, Sisi Almanza [id number] [address] [place], [place] [address] Attending Physician: Abby Villalpando MD Allergies, Adverse [...] 11/16/21 23:51:00 EDT, Route to Pharmacy Electronically, [facility], Partial fill upon patient request if the presc... Start Date: 11/16/21 Status: Ordered Adderall 5 mg oral tablet 1 tablet = 5 mg, By Mouth, 2 times a day, to take with long acting, # 60 tablet, 0 Refills, Maintenance, 10/25/21 15:46:00 EDT, Tablet, [facility], Partial fill upon [...] Refills, Maintenance, 10/25/21 15:46:00 EDT, ER Capsule, [facility], Partial fill upon patient r... Start Date: 10/25/21 Status: Ordered albuterol CFC free 90 mcg/inh inhalation aerosol 2, puffs, Inhalation, Every 6 hours, PRN, # 2 each, Refills 11, Tot. Refills 11, Maintenance, 10/05/21 9:52:00 EST, Aerosol, Route to Pharmacy Electronically, [id number], [facility], ONLY ALBUTEROL HFA, CANCEL [...] 6 Refills, Maintenance, 10/03/21 12:18:00 EST, Solution, [facility], 155, cm, 09/27/21 15:08:00 EST, Height, 68.5, kg, 06/03/20 13:18:00 EST, Dry Weight Start Date: 10/03/21 Status: Ordered cyanocobalamin 1000 mcg/ml injectable solution 1 mL = 1,000 mcg, Intramuscular, Every 30 days, # 3 mL, 6 Refills, Maintenance, 06/15/20 11:56:00 EST, Solution, [facility], 155, cm, 06/03/20 13:15:00 EST, Height, 68.5, kg, 06/03/20 13:18:00 EST, Dry Weight Start Date: 06/15/20 Status: Ordered dilTIAZem 240 mg/24 hours oral tablet, extended release 1 tablet = 240 mg, By Mouth, Daily, FURTHER REFILLS BY COOKY PACKER, # 90 tablet, 0 Refills, Maintenance, 11/27/19 8:57:00 EDT, ER Tablet, [facility], 155, cm, 10/07/19 12:25:00 EDT, Height, 63, kg, 07/01/19 19:58:00 EST, Dry Weight Start Date: 11/27/19 Status: Ordered Flovent HFA 110 mcg/inh inhalation aerosol 2 puffs, Inhalation, 2 times a day, # 12 Gm, 0 Refills, Maintenance, 10/05/21 13:23:00 EST, Aerosol, [facility], Partial fill upon [...] 11/16/21 23:51:00 EDT, Route to Pharmacy Electronically, [facility], Partial fill upon patient request if the prescription is... Start Date: 11/16/21 Status: Ordered LORazepam 0.5 mg oral tablet See Instructions, TAKE 1 TABLET BY MOUTH TWO TIMES A DAY NEEDED FOR ANXIETY, # 28 tablet, 2 Refills, Maintenance, 05/06/20 15:17:00 EDT, [facility], 155, cm, 05/03/20 [...] Refills, Maintenance, 11/16/21 23:51:00 EDT, DIS Tablet, [facility], Partial fill upon [...] 3 Refills, Maintenance, 10/25/21 11:13:00 EDT, Capsule, [facility], Partial fill upon patient request [...] Active Bilateral leg pain(Confirmed) Active *BHN/CCA/CC-Matias Vela- [phone]/Health mcc, active care coordination(Confirmed) Active POTS (postural orthostatic t achycardia syndrome)(Confirmed) Active Medulloblastoma(Confirmed) Active RUQ pain(Confirmed) Active Vital Signs Most recent to oldest [Reference Range]: 1 Height 155 cm (12/08/21 10:46 AM) Weight 67 kg (12/08/21 10:46 AM) Pulse Rate [55-90 bpm] 77 bpm (12/08/21 10:46 AM) Body Mass Index [18.5-24.99] 27.89 *H* (12/08/21 10:46 AM) Blood Pressure [90-138/55-84 mm Hg] 93/6 1mm Hg (12/08/21 10:46 AM) Respiratory Rate [16-30 br/min] 19 br/mi n (12/08/21 10:46 AM) Blood pressure sites Arm, left (12/08/21 10:46 AM) Weight Obtained Via Standing scale (12/08/21 10:46 AM) Social History Social History Type Response Smoking Status Never smoker; Tobacc o user in household: No entered on: 04/11/16 Sex Female
--- OUTSIDE RECORDS SUMMARY | 2024-04-27 10:15 | XMS_ITS | Continuity of Care Document ---
Author Organization [facility] Address [address], [address] [place] [address]- Care Team Providers Care Private Branch Exchange Repairer Name Role Phone Sisi Hernandez MD [id number] Date[facility] [address] [place], [place] [address] Attending Physician: Not on Staff, [...] 0 Refills, Maintenance, 08/24/21 13:15:00 EST, Tablet, [facility] Start Date: 08/24/21 Status: Ordered Adderall XR 15 mg oral capsule, extended release 1 capsule = 15 mg, By Mouth, 2 times a day, Change from 10 mg XR and increase to 2 times per day. To take with short acting 5 mg, # 60 capsule, 0 Refills, Maintenance, 08/24/21 13:13:00 EST, ER Capsule, [facility], Partial fill upon leonardo... Start Date: 08/24/21 Status: Ordered albuterol CFC free 90 mcg/inh inhalation aerosol 2, puffs, Inhalation, Every 6 hours, PRN, # 2 each, Refills 11, Tot. Refills 11, Maintenance, 12/02/20 8:50:00 EDT, Aerosol, Route to Pharmacy Electronically, [id number], [facility], 155, cm, 06/03/20 13:15:00 E... [...] 6 Refills, Maintenance, 06/15/20 11:56:00 EST, Solution, [facility], 155, cm, 06/03/20 13:15:00 EST, Height, 68.5, kg, 06/03/20 13:18:00 EST, Dry Weight Start Date: 06/15/20 Status: Ordered Diflucan 150 mg oral tablet 1 tablet = 150 mg, By Mouth, Every 48 hours, # 2 tablet, 0 Refills, Soft Stop, 07/31/21 10:46:00 EST, Tablet, [facility], Partial fill upon patient request if the prescription is for a schedule II opioid drug., 155, cm, 06/09/21 14:21:00... Start Date: 07/31/21 Status: Ordered dilTIAZem 240 mg/24 hours oral tablet, extended release 1 tablet = 240 mg, By Mouth, Daily, FURTHER REFILLS BY AUDIT PARTNER, # 90 tablet, 0 Refills, Maintenance, 11/27/19 8:57:00 EDT, ER Tablet, [facility], 155, cm, 10/07/19 12:25:00 EDT, [...] tablet, 2 Refills, Maintenance, 05/06/20 15:17:00 EDT, [facility], 155, cm, 05/03/20 18:55:00 [...] 15:30:53 EST, Aerosol, Route to Pharmacy Electronically, [id number]... Start Date: 09/12/18 Stop Date: 02/09/19 Status: Ordered ProAir HFA 90 mcg/inh inhalation aerosol with adapter 2, puffs, Inhalation, Every 4 hours, PRN, use with spacer chamber BRAND NAME MEDICALLY NECESSARY, #8.5 Gm, Refills 0, Tot. Refills 0, Maintenance, 12/05/20 15:38:00 EDT, Aerosol, Route to Pharmacy Electronically, [id number]... Start Date: 12/05/20 Status: Ordered Sunosi 75 [...] 2 Refills, Maintenance, 08/04/20 12:39:00 EST, Capsule, [facility], Partial fill upon patient request [...] Active Bilateral leg pain(Confirmed) Active *BHN/CCA/CC-Matias Vela- [phone]/Health long term, active care coordination(Confirmed) Active POTS (postural orthostatic t achycardia syndrome)(Confirmed) Active Medulloblastoma(Confirmed) Active RUQ pain(Confirmed) Active Vital Signs Most recent to oldest [Reference Range]: 1 Height 155 cm (09/15/21 3:48 PM) Weight 66.8 kg (09/15/21 3:48 PM) Body Mass Index [18.5-24.99] 27.8 *H* (09/15/21 3:48 PM) Blood Pressure [90-138/55-84 mm Hg] 110/ 77mm Hg (09/15/21 3:48 PM) Blood pressure sites Arm, left (09/15/21 3:48 PM) Weight Obtained Via Standing scale (09/15/21 3:48 PM) Social History Social History Type Response Smoking Status Never smoker; Tobacc o user in household: No entered on: 04/11/16 Sex Female
--- OUTSIDE RECORDS SUMMARY | 2024-04-27 10:15 | XMS_ITS | Continuity of Care Document ---
Author Organization [facility] Address [address] [place] [address]- Care Team Providers Care Gear Repairer Name Role Phone Sisi Hernandez MD [id number] [address] [place], [place] [address] Encounter Diagnosis B12 deficiency(Discharge Diagnosis) - 01/18/22 Narcolepsy and cataplexy(Discharge Diagnosis) - 01/18/22 Fatigue(Discharge Diagnosis) - 01/18/22 Attending Physician: Sisi Hernandez MD Allergies, Adverse [...] 11/16/21 23:51:00 EDT, Route to Pharmacy Electronically, [facility], Partial fill upon patient request if the presc... Start Date: 11/16/21 Status: Ordered albuterol CFC free 90 mcg/inh inhalation aerosol 2, puffs, Inhalation, Every 6 hours, PRN, # 2 each, Refills 11, Tot. Refills 11, Maintenance, 10/05/21 9:52:00 EST, Aerosol, Route to Pharmacy Electronically, [id number], [facility], ONLY ALBUTEROL HFA, CANCEL V... [...] 6 Refills, Maintenance, 10/03/21 12:18:00 EST, Solution, [facility], 155, cm, 09/27/21 15:08:00 EST, Height, 68.5, kg, 06/03/20 13:18:00 EST, Dry Weight Start Date: 10/03/21 Status: Ordered cyanocobalamin 1000 mcg/ml injectable solution 1 mL = 1,000 mcg, Intramuscular, Every 30 days, # 3 mL, 6 Refills, Maintenance, 06/15/20 11:56:00 EST, Solution, [facility] 3, 155, cm, 06/03/20 13:15:00 EST, Height, 68.5, kg, 06/03/20 13:18:00 EST, Dry Weight Start Date: 06/15/20 Status: Ordered dilTIAZem 240 mg/24 hours oral tablet, extended release 1 tablet = 240 mg, By Mouth, Daily, FURTHER REFILLS BY LAST GREASER, # 90 tablet, 0 Refills, Maintenance, 11/27/19 8:57:00 EDT, ER Tablet, [facility], 155, cm, 10/07/19 12:25:00 EDT, Height, 63, kg, 07/01/19 19:58:00 EST, Dry Weight Start Date: 11/27/19 Status: Ordered Flovent HFA 110 mcg/inh inhalation aerosol 2 puffs, Inhalation, 2 times a day, # 12 Gm, 0 Refills, Maintenance, 10/05/21 13:23:00 EST, Aerosol, [facility], Partial fill upon patient request [...] 11/16/21 23:51:00 EDT, Route to Pharmacy Electronically, [facility], Partial fill upon patient request if the prescription is... Start Date: 11/16/21 Status: Ordered LORazepam 0.5 mg oral tablet See Instructions, TAKE 1 TABLET BY MOUTH TWO TIMES A DAY NEEDED FOR ANXIETY, # 28 tablet, 2 Refills, Maintenance, 05/06/20 15:17:00 EDT, [facility], 155, cm, 05/03/20 [...] Refills, Maintenance, 11/16/21 23:51:00 EDT, DIS Tablet, [facility], Partial fill upon patient request if the prescription is for a schedule II o... Start Date: 11/16/21 Status: Ordered Peridex 0.12% liquid 15 mL = 0.018 Gm, By Mouth, 2 times a day, # 420 mL, 0 Refills, Maintenance, 01/18/22 8:47:00 EDT, Liquid, [facility] 3, Partial fill upon patient request [...] 3 Refills, Maintenance, 10/25/21 11:13:00 EDT, Capsule, [facility], Partial fill upon patient request [...] Active Bilateral leg pain(Confirmed) Active *BHN/CCA/CC-Matias Vela- [phone]/Health custodial, active care coordination(Confirmed) Active POTS (postural orthostatic t achycardia syndrome)(Confirmed) Active Medulloblastoma(Confirmed) Active RUQ pain(Confirmed) Active Diagnosis Diagnosis Type Effective Dates Health Status Clinical Service Informant B12 deficiency Discharge Diagnosis 01/18/22 Narcolepsy and cataplexy Discharge Diagnosis 01/18/22 Fatigue Discharge Diagnosis 01/18/22 Social History Social History Type Response Smoking Status Never smoker; Tobacc o user in household: No entered on: 04/11/16 Sex Female
--- OUTSIDE RECORDS SUMMARY | 2024-04-27 10:15 | XMS_ITS | Continuity of Care Document ---
Author Organization [facility] Address [address] [place] [address]- Care Team Providers Care Switchboard Clerk Name Role Phone Sisi Hernandez MD Primary Care Physician [place] [facility] [place] Date(s): 04/05/21 - 05/05/21 [facility] [address] [place], [place] [address] Allergies, Adverse Reactions, Alerts [...] 8:50:00 EDT, Aerosol, Route to Pharmacy Electronically, [id number], [facility], [...] mg, By Mouth, Daily, FURTHER REFILLS BY GENERAL OFFICE CLERK, # 90 tablet, 0 Refills, Maintenance, 11/27/19 [...] EDT, [facility], 155, cm, 05/03/20 18:55:00 [...] 15:30:53 EST, Aerosol, Route to Pharmacy Electronically, [id number]... Start Date: 09/12/18 Stop Date: 02/09/19 Status: Ordered ProAir HFA 90 mcg/inh inhalation aerosol with adapter 2, puffs, Inhalation, Every 4 hours, PRN, use with spacer chamber BRAND NAME MEDICALLY NECESSARY, #8.5 Gm, Refills 0, Tot. Refills 0, Maintenance, 12/05/20 15:38:00 EDT, Aerosol, Route to Pharmacy Electronically, [id number]... Start Date: 12/05/20 Status: Ordered syringe and [...] Active Bilateral leg pain(Confirmed) Active *BHN/CCA/CC-Matias Vela- [phone]/Health mcc, active care coordination(Confirmed) Active POTS (postural orthostatic t achycardia syndrome)(Confirmed) Active Medulloblastoma(Confirmed) Active RUQ pain(Confirmed) Active Viral URI(Confirmed) Active Social History Social History Type Response Smoking Status Never smoker; Tobacc o user in household: No entered on: 04/11/16 Sex
--- OUTSIDE RECORDS SUMMARY | 2024-04-27 10:15 | XMS_ITS | Continuity of Care Document ---
Author Organization [facility] Address [address] [place] [address]- Care Team Providers Care Health Manager Name Role Phone Sisi Hernandez MD Primary Care Physician [place] [facility] [place]23 - 10/11/23 [facility] [address] [place], [place] [address] Allergies, Adverse Reactions, Alerts [...] Refills, Maintenance, 12/21/22 14:40:00 EDT, ER Capsule, [facility], Partial fill upon patient request if the prescription is for a schedule II opioid drug., 155, cm, 12/05/22 11:... Start Date: 12/21/22 Status: Ordered albuterol CFC free 90 mcg/inh inhalation aerosol 2, puffs, Inhalation, Every 6 hours, PRN, # 2 each, Refills 11, Tot. Refills 11, Maintenance, 02/15/22 13:12:00 EDT, Aerosol, Route to Pharmacy Electronically, [id number], [facility], ONLY ALBUTEROL HFA, CANCEL... Start Date: 02/15/22 Stop Date: 02/10/23 Status: Ordered Colace sodium 100 mg oral capsule 100 mg, 1, capsule, By Mouth, 2 times a day, PRN, # 180 capsule, Refills 3, Tot. Refills 3, Maintenance, for constipation, 08/09/23 14:49:00 EST, Route to Pharmacy Electronically, [facility], Partial fill upon patient request if [...] 6 Refills, Maintenance, 08/07/23 13:45:00 EST, Solution, [facility], 155, cm, 06/07/23 20:58:00 [...] 0 Refills, Maintenance, 02/15/22 13:10:00 EDT, Aerosol, [facility], new dosage, 155, cm, [...] 07/31/22 11:03:00 EST, Route to Pharmacy Electronically, [facility], Partial fill upon patient request if the prescription is for a schedule... Start Date: 07/31/22 Status: Ordered LORazepam 0.5 mg oral tablet See Instructions, TAKE 1 TABLET BY MOUTH TWO TIMES A DAY NEEDED FOR ANXIETY, # 28 tablet, 2 Refills, Maintenance, 12/05/22 12:25:00 EDT, [facility], 155, cm, 12/05/22 11:40:00 EDT, Height, [...] 0 Refills, Maintenance, 08/01/22 6:06:00 EST, Tablet, [facility], Partial fill upon patient request if the prescription is for a schedule II opioid drug., 155, cm,... Start Date: 08/01/22 Status: Ordered Symbicort 160mcg/4.5mcg Inhaler 2, puffs, Inhalation, 2 times a day, # 3 each, Refills 5, Tot. Refills 5, Maintenance, 09/27/22 12:00:00 EST, Aerosol, Route to Pharmacy Electronically, [id number], [facility], replaces flovent inhaler, 155, [...] 07/31/22 11:03:00 EST, Route to Pharmacy Electronically, [facility] 3, Partial fill upon patient request [...] Refills, Maintenance, 08/14/23 13:38:00 EST, Chew Tablet, [facility] 3, Partial fill upon patient request if the prescription is for a schedule II opioid drug., 155, cm, 08/14/23 13:0... Start Date: 08/14/23 Status: Ordered Vitamin D3 50,000 intl units oral capsule 1 capsule = 1,250 mcg, By Mouth, Every week, # 13 capsule, 1 Refills, Maintenance, 05/17/23 17:07:00 EDT, Capsule, [facility] 3, Partial fill upon patient request [...] Bilateral leg pain Confirmed Active *BHN/CCA/CC-Matias Dixongins- [phone]/Health half-way, active care coordination Confirmed Active POTS [...] Hernandez MD Position: [facility] Physician - Primary Care Member Role: PCP Address: Address: [address] [place] [address] Name: Lizzette To RN Position: [facility] SN RN Member Role: Primary Care Nurse Name: Karolina Adkins MD Position: [facility] Physician - Primary Care Member Role: Lifetime Consulting Physician Address: Address: [address] [place] [address] [facility] [address] Name: Isadora Godfrey RN Position: [facility] RN Member Role: Primary Care Nurse Name: Rossy Rowe RN Position: [facility] SN RN Member Role: Primary Care Nurse Name: Cindi Hayward RN Position: [facility] RN Member Role: Primary Care Nurse Name: Bela Mcmahon RN Position: [facility] Hospital Urologist Member Role: Primary Care Nurse Name: Nicole Hernandez RN Position: [facility] RN Member Role: Primary Care Nurse Name: Zac Castillo RN Position: [facility] ED RN W/OE and Tasks Member Role: Primary Care Nurse Name: Harjinder MONTELONGO, Jeanne Baker Position: [facility] RN Member Role: Primary Care Nurse Care Team Related Persons Name: BEAR TURNER Address: home [address] [place] [address] Name: BEAR TURNER SECONDARY Address: [address] Name: ISATU ECKERT Address: [place] [address] Name: ISAAC VERDE PRIMARY Address: [address] [address] Name: ADRY DURANT Name: PANCHO JEROME Address: [place] [address]
--- OUTSIDE RECORDS SUMMARY | 2024-04-27 10:15 | XMS_ITS | Continuity of Care Document ---
Author Organization [facility] Address [address] [place] [address]- Care Team Providers Care Lead Pl Sql Developer Name Role Phone Mary KEATING, Sisi Almanza Primary Care Physician [phone] [place] [facility] [place] - 10/03/22 [facility] [address] [address] Allergies, Adverse Reactions, Alerts Substance Reaction Severity [...] 13:12:00 EDT, Aerosol, Route to Pharmacy Electronically, [id number], [facility], [...] 6 Refills, Maintenance, 09/04/22 8:50:00 EST, Solution, [facility] 3, 155, cm, 08/14/22 13:52:00 [...] 0 Refills, Maintenance, 02/15/22 13:10:00 EDT, Aerosol, [facility], new dosage, 155, [...] 10:45:00 EST, [facility] [...] Refills, Maintenance, 08/01/22 6:06:00 EST, REC Powder, [facility] 3, Partial fill upon patient [...] 0 Refills, Maintenance, 08/01/22 6:06:00 EST, Tablet, [facility] 3, Partial fill upon patient request if the prescription is for a schedule II opioid drug., 155, cm,... Start Date: 08/01/22 Status: Ordered Symbicort 160mcg/4.5mcg Inhaler 2, puffs, Inhalation, 2 times a day, # 3 each, Refills 5, Tot. Refills 5, Maintenance, 09/27/22 12:00:00 EST, Aerosol, Route to Pharmacy Electronically, [id number], [facility], replaces flovent inhaler, 155, [...] 3 Refills, Maintenance, 06/05/22 14:27:00 EST, Capsule, [facility] [...] Bilateral leg pain Confirmed Active *BHN/CCA/CC-Matias Vela- [phone]/Health retirement, active care coordination Confirmed Active POTS (postural orthostatic tachycardia syndrome) Confirmed Active Medulloblastoma Confirmed Active RUQ pain Confirmed Active Social History Social History Type Response Smoking Status Never smoker; Tobacc o user in household: No entered on: 04/11/16 Sex Patient Care team information Care Team Personnel Name: Vidhya Grace RN Position: [facility] RN Member Role: Primary Care Nurse Name: Sisi Hernandez MD Position: [facility] Primary Care Physician Member Role: PCP Address: Address: [address] [place] [address] Name: Lizzette To RN Position: [facility] RN Member Role: Primary Care Nurse Name: Karolina Adkins MD Position: [facility] Physician -Physician Practices Member Role: Lifetime Consulting Physician Address: Address: [address] [place] [address] Geriatric [facility] Palliative [place], [place] [address] Name: Isadora Godfrey RN Position: [facility] RN Member Role: Primary Care Nurse Name: Rossy Rowe RN Position: [facility] SN RN Member Role: Primary Care Nurse Name: Cindi Hayward Position: [facility] RN Member Role: Primary Care Nurse Name: Bela Mcmahon RN Position: [facility] Hospital Crystal Lapper Member Role: Primary Care Nurse Name: Nicole Hernandez RN Position: [facility] RN Member Role: Primary Care Nurse Name: Zac Castillo RN Position: [facility] ED RN W/OE and Tasks Member Role: Primary Care Nurse Name: Jeanne Grande RN Position: [facility] RN Member Role: Primary Care Nurse Care Team Related Persons Name: BEAR TURNER Address: home [address] [place], [place] Name: JOHNNY BEAR SECONDARY Address: home [address], [place] Name: ISATU ECKERT Address: [place] [address] Name: ISAAC VERDE PRIMARY Address: [address] [address] Name: ADRY DURANT Name: PNACHO JEROME Address: [place] [address]
--- OUTSIDE RECORDS SUMMARY | 2024-04-27 10:15 | XMS_ITS | Continuity of Care Document ---
Author Organization [facility] Address [address] [place] [address]- Care Team Providers Care Surveillance Analyst Name Role Phone Sisi Hernandez MD Primary Care Physician Encounter [facility] [place] Date(s): 12/22/20 - 01/21/21 [facility] [address] [place], [place] [address] Allergies, Adverse Reactions, Alerts Substance [...] 8:50:00 EDT, Aerosol, Route to Pharmacy Electronically, [id number], [facility], 155, cm, 06/03/20 [...] 6 Refills, Maintenance, 06/15/20 11:56:00 EST, Solution, [facility], 155, cm, 06/03/20 13:15:00 EST, Height, 68.5, kg, 06/03/20 13:18:00 EST, Dry Weight Start Date: 06/15/20 Status: Ordered dilTIAZem 240 mg/24 hours oral tablet, extended release 1 tablet = 240 mg, By Mouth, Daily, FURTHER REFILLS BY CAR CHANGER, # 90 tablet, 0 Refills, Maintenance, 11/27/19 8:57:00 EDT, ER Tablet, [facility], 155, cm, 10/07/19 [...] 15:17:00 EDT, [facility] 3, 155, cm, 05/03/20 18:55:00 EDT, [...] 15:30:53 EST, Aerosol, Route to Pharmacy Electronically, [id number]... Start Date: 09/12/18 Stop Date: 02/09/19 Status: Ordered ProAir HFA 90 mcg/inh inhalation aerosol with adapter 2, puffs, Inhalation, Every 4 hours, PRN, use with spacer chamber BRAND NAME MEDICALLY NECESSARY, #8.5 Gm, Refills 0, Tot. Refills 0, Maintenance, 12/05/20 15:38:00 EDT, Aerosol, Route to Pharmacy Electronically, [id number]... Start Date: 12/05/20 Status: Ordered ramelteon 8 mg oral tablet 1 tablet = 8 mg, By Mouth, Daily at bedtime, # 30 tablet, 11 Refills, Maintenance, 12/02/20 8:48:00EDT, [facility], Partial [...] 2 Refills, Maintenance, 08/04/20 12:39:00 EST, Capsule, [facility], Partial [...] Active Bilateral leg pain(Confirmed) Active *BHN/CCA/CC-Matias Vela- [phone]/Health m[facility], active care coordination(Confirmed) Active POTS (postural orthostatic t achycardia syndrome)(Confirmed) Active Medulloblastoma(Confirmed) Active RUQ pain(Confirmed) Active Viral URI(Confirmed) Active Social History Social History Type Response Smoking Status Never smoker; Tobacc o user in household: No entered on: 04/11/16 Sex
--- OUTSIDE RECORDS SUMMARY | 2024-04-27 10:15 | XMS_ITS | Continuity of Care Document ---
Author Organization [facility] Address [address], [address], [address] [place] [address]- Care Team Providers Care Primary Care Physician Name Role Phone Sisi Hernandez MD Primary Care Physician Encounter [facility] [place] Date(s): 02/06/21 - 03/08/21 [facility] [address], [address], [address] [place] [address] Allergies, Adverse Reactions, Alerts [...] 8:50:00 EDT, Aerosol, Route to Pharmacy Electronically, [id number], [facility], 155, cm, 06/03/20 13:15:00 E... [...] 6 Refills, Maintenance, 06/15/20 11:56:00 EST, Solution, [facility] 3, 155, cm, 06/03/20 13:15:00 EST, Height, 68.5, kg, 06/03/20 13:18:00 EST, Dry Weight Start Date: 06/15/20 Status: Ordered dilTIAZem 240 mg/24 hours oral tablet, extended release 1 tablet = 240 mg, By Mouth, Daily, FURTHER REFILLS BY SOCIAL STUDIES DEPARTMENT CHAIR, # 90 tablet, 0 Refills, Maintenance, 11/27/19 8:57:00 EDT, ER Tablet, [facility] 3, 155, cm, 10/07/19 12:25:00 EDT, Height, [...] tablet, 2 Refills, Maintenance, 05/06/20 15:17:00 EDT, [facility] 3, 155, cm, [...] 15:30:53 EST, Aerosol, Route to Pharmacy Electronically, [id number]... Start Date: 09/12/18 Stop Date: 02/09/19 Status: Ordered ProAir HFA 90 mcg/inh inhalation aerosol with adapter 2, puffs, Inhalation, Every 4 hours, PRN, use with spacer chamber BRAND NAME MEDICALLY NECESSARY, #8.5 Gm, Refills 0, Tot. Refills 0, Maintenance, 12/05/20 15:38:00 EDT, Aerosol, Route to Pharmacy Electronically, [id number]... Start Date: 12/05/20 Status: Ordered ramelteon 8 mg oral tablet 1 tablet = 8 mg, By Mouth, Daily at bedtime, # 30 tablet, 11 Refills, Maintenance, 12/02/20 8:48:00EDT, [facility], Partial fill upon patient [...] 2 Refills, Maintenance, 08/04/20 12:39:00 EST, Capsule, [facility], Partial fill upon patient [...] Active Bilateral leg pain(Confirmed) Active *BHN/CCA/CC-Matias Vela- [phone]/[facility], active care coordination(Confirmed) Active POTS (postural orthostatic t achycardia syndrome)(Confirmed) Active Medulloblastoma(Confirmed) Active RUQ pain(Confirmed) Active Viral URI(Confirmed) Active Social History Social History Type Response Smoking Status Never smoker; Tobacc o user in household: No entered on: 04/11/16 Sex
--- OUTSIDE RECORDS SUMMARY | 2024-04-27 10:15 | XMS_ITS | Continuity of Care Document ---
Author Organization [facility] Address [address], [address] [place] [address]- Care Team Providers Care Power Plant Installer Name Role Phone Ssii Hernandez MD Primary Care Physician Encounter [facility] [place] Date(s): 06/06/22 - 09/13/22 [facility] [address], [address]th [place] [address]- Attending Physician: Jacqueline Moura MD Admitting Physician: [...] 13:12:00 EDT, Aerosol, Route to Pharmacy Electronically, [id number], [facility], ONLY ALBUTEROL HFA, CANCEL... Start Date: 02/15/22 Stop Date: 02/10/23 Status: Ordered Colace sodium 100 mg oral capsule 100 mg, 1, capsule, By Mouth, 2 times a day, PRN, # 30 capsule, Refills 0, Tot. Refills 0, Maintenance, for constipation, 07/31/22 11:03:00 EST, Route to Pharmacy Electronically, [facility], Partial fill upon patient [...] 6 Refills, Maintenance, 09/04/22 8:50:00 EST, Solution, [facility], 155, cm, 08/14/22 13:52:00 EST, [...] 0 Refills, Maintenance, 02/15/22 13:10:00 EDT, Aerosol, [facility], new dosage, 155, cm, 12/08/21 [...] 07/31/22 11:03:00 EST, Route to Pharmacy Electronically, [facility], Partial fill upon patient request if the prescription is for a schedule... Start Date: 07/31/22 Status: Ordered LORazepam 0.5 mg oral tablet See Instructions, TAKE 1 TABLET BY MOUTH TWO TIMES A DAY NEEDED FOR ANXIETY, # 28 tablet, 2 Refills, Maintenance, 06/06/22 10:45:00 EST, [facility], 155, cm, 04/06/22 14:56:00 [...] Refills, Maintenance, 08/01/22 6:06:00 EST, REC Powder, [facility] 3, Partial fill upon patient [...] 0 Refills, Maintenance, 08/01/22 6:06:00 EST, Tablet, [facility], Partial fill upon patient request if the prescription is for a schedule II opioid drug., 155, cm,... Start Date: 08/01/22 Status: Ordered simethicone 80 mg oral tablet, chewable 80 mg, 1, tablet, Chew, 4 times a day, # 12 tablet, Refills 0, Tot. Refills 0, Maintenance, 07/31/22 11:03:00 EST, Route to Pharmacy Electronically, [facility], Partial fill upon patient request [...] 07/31/22 11:03:00 EST, Route to Pharmacy Electronically, [facility], Partial fill upon patient [...] 3 Refills, Maintenance, 06/05/22 14:27:00 EST, Capsule, [facility], Partial fill upon patient [...] Bilateral leg pain Confirmed Active *BHN/CCA/CC-Matias Vela- [phone]/Health prison, active care coordination Confirmed Active POTS [...] Member Role: Primary Care Nurse Name: Sisi Henrandez MD Position: [facility] Primary Care Physician Member Role: PCP Address: Address: [address] [place] [address] - Name: Lizzette To RN Position: [facility] RN Member Role: Primary Care Nurse Name: Karolina Adkins MD Position: [facility] Physician -Physician Practices Member Role: Lifetime Consulting Physician Address: Address: [address] [place] [address] [facility] [place] [facility] Name: Isadora Godfrey RN Position: [facility] RN Member Role: Primary Care Nurse Name: Rossy Rowe RN Position: [facility] SN RN Member Role: Primary Care Nurse Name: Cindi Hayward Position: [facility] RN Member Role: Primary Care Nurse Name: Bela Mcmahon RN Position: [facility] Hospital Shipyard Laborer Member Role: Primary Care Nurse Name: Nicole Hernandez RN Position: [facility] RN Member Role: Primary Care Nurse Name: Zac Castillo RN Position: [facility] ED RN W/OE and Tasks Member Role: Primary Care Nurse Name: Jeanne Grande RN Position: [facility] RN Member Role: Primary Care Nurse Care Team Related Persons Name: TURNERBEAR Address: home [address] [place] [address] Name: BEAR TURNER SECONDARY Address: home [address] [place] [address] Name: ISATU ECKERT Address: home [place], [place] Name: ISAAC VERDE PRIMARY Address: home [address] [place] [address] Name: ADRY DURANT Name: PANCHO [place]EROME Address: [place] [address]
--- OUTSIDE RECORDS SUMMARY | 2024-04-27 10:15 | XMS_ITS | Continuity of Care Document ---
Author Organization [facility] Address [address] [place] [address]- Care Team Providers Care Supervisor Cleaning And Annealing Name Role Phone Sisi Hernandez MD [id number] [address] [place] [address]- [facility] Attending Physician: Sisi Hernandez MD [facility]erring Phys[facility]ergies, Adverse Reactions, Alerts Substance Reaction Severity [...] 8:59:00 EDT, Aerosol, Route to Pharmacy Electronically, [id number], [facility], 155, cm, 10/07/19 [...] 5 Refills, Maintenance, 03/04/20 9:53:00 EDT, Solution, [facility] 3, 155, cm, 10/07/19 12:25:00 EDT, Height, 63, kg, 07/01/19 19:58:00 EST, Dry Weight Start Date: 03/04/20 Status: Ordered dilTIAZem 240 mg/24 hours oral tablet, extended release 1 tablet = 240 mg, By Mouth, Daily, FURTHER REFILLS BY PIGMENT PUMPER, # 90 tablet, 0 Refills, Maintenance, 11/27/19 8:57:00 EDT, ER Tablet, [facility], 155, cm, 10/07/19 12:25:00 EDT, Height, [...] tablet, 2 Refills, Maintenance, 11/02/19 10:43:00 EDT, [facility] 3, 155, cm, 10/07/19 12:25:00 EDT, [...] 15:30:53 EST, Aerosol, Route to Pharmacy Electronically, [id number]... Start Date: 09/12/18 Stop Date: 02/09/19 Status: [...] Active Bilateral leg pain(Confirmed) Active *BHN/CCA/CC-Matias Vela- [phone]/Health shelter, active care coordination(Confirmed) Active POTS (postural orthostatic t achycardia syndrome)(Confirmed) Active Medulloblastoma(Confirmed) Active RUQ pain(Confirmed) Active Social History Social History Type Response Smoking Status Never smoker; Tobacc o user in household: No entered on: 04/11/16 Sex
--- OUTSIDE RECORDS SUMMARY | 2024-04-27 10:15 | XMS_ITS | Continuity of Care Document ---
Author Organization [facility] Address [address] [place] [address]- Care Team Providers Care Scientific Programmer Analyst Name Role Phone Sisi Hernandez MD Primary Care Physician Encounter [facility] [place] ACCT R [id number] Date(s): 08/09/23 - 09/08/23 [facility] [address] [place], [place] [address] Allergies, Adverse Reactions, Alerts [...] Refills, Maintenance, 12/21/22 14:40:00 EDT, ER Capsule, [facility], Partial fill upon patient request if the prescription is for a schedule II opioid drug., 155, cm, 12/05/22 11:... Start Date: 12/21/22 Status: Ordered albuterol CFC free 90 mcg/inh inhalation aerosol 2, puffs, Inhalation, Every 6 hours, PRN, # 2 each, Refills 11, Tot. Refills 11, Maintenance, 02/15/22 13:12:00 EDT, Aerosol, Route to Pharmacy Electronically, [id number], [facility], ONLY ALBUTEROL HFA, CANCEL... Start Date: 02/15/22 Stop Date: 02/10/23 Status: Ordered Colace sodium 100 mg oral capsule 100 mg, 1, capsule, By Mouth, 2 times a day, PRN, # 180 capsule, Refills 3, Tot. Refills 3, Maintenance, for constipation, 08/09/23 14:49:00 EST, Route to Pharmacy Electronically, [facility], Partial fill upon patient [...] 6 Refills, Maintenance, 08/07/23 13:45:00 EST, Solution, [facility], 155, cm, 06/07/23 20:58:00 [...] 0 Refills, Maintenance, 02/15/22 13:10:00 EDT, Aerosol, [facility], new dosage, 155, cm, [...] 11:03:00 EST, Route to Pharmacy Electronically, [facility], Partial fill upon patient request if the prescription is for a schedule... Start Date: 07/31/22 Status: Ordered LORazepam 0.5 mg oral tablet See Instructions, TAKE 1 TABLET BY MOUTH TWO TIMES A DAY NEEDED FOR ANXIETY, # 28 tablet, 2 Refills, Maintenance, 12/05/22 12:25:00 EDT, [facility], 155, cm, 12/05/22 [...] 0 Refills, Maintenance, 08/01/22 6:06:00 EST, Tablet, [facility], Partial fill upon patient request if the prescription is for a schedule II opioid drug., 155, cm,... Start Date: 08/01/22 Status: Ordered Symbicort 160mcg/4.5mcg Inhaler 2, puffs, Inhalation, 2 times a day, # 3 each, Refills 5, Tot. Refills 5, Maintenance, 09/27/22 12:00:00 EST, Aerosol, Route to Pharmacy Electronically, [id number], [facility], replaces flovent inhaler, 155, cm,... [...] 11:03:00 EST, Route to Pharmacy Electronically, [facility], Partial fill upon patient [...] Refills, Maintenance, 08/14/23 13:38:00 EST, Chew Tablet, [facility], Partial fill upon patient request if the prescription is for a schedule II opioid drug., 155, cm, 08/14/23 13:0... Start Date: 08/14/23 Status: Ordered Vitamin D3 50,000 intl units oral capsule 1 capsule = 1,250 mcg, By Mouth, Every week, # 13 capsule, 1 Refills, Maintenance, 05/17/23 17:07:00 EDT, Capsule, [facility], Partial fill upon patient [...] Bilateral leg pain Confirmed Active *BHN/CCA/CC-Matias Vela- [phone]/Health correction, active care coordination Confirmed Active POTS (postural orthostatic tachycardia syndrome) Confirmed Active Medulloblastoma Confirmed Active RUQ pain Confirmed Active Tachy-sharmin syndrome Confirmed Active Social History Social History Type Response Smoking Status Never smoker; Tobacc o user in household: No entered on: 04/11/16 Sex Patient Care team information Care Team Personnel Name: Vidhya Grace RN Position: [facility] RN Member Role: Primary Care Nurse Name: Sisi Hernandez MD Position: [facility] Physician - Primary Care Member Role: PCP Address: Address: [address] [place] [address] [facility] Name: Lizzette To RN Position: [facility] SN RN Member Role: Primary Care Nurse Name: Karolina Adkins MD Position: [facility] Physician - Primary Care Member Role: Lifetime Consulting Physician Address: Address: [address] [place] [address] [facility] [place] [facility] Name: Isadora Godfrey RN Position: [facility] RN Member Role: Primary Care Nurse Name: Rossy Rowe RN Position: [facility] SN RN Member Role: Primary Care Nurse Name: Cindi Hayward RN Position: [facility] RN Member Role: Primary Care Nurse Name: Bela Mcmahon RN Position: [facility] Cable Supervisor Member Role: Primary Care Nurse Name: Nicole Hernandez RN Position: [facility] RN Member Role: Primary Care Nurse Name: Zac Castillo RN Position: [facility] ED RN W/OE and Tasks Member Role: Primary Care Nurse Name: Jeanne Grande RN Position: [facility] RN Member Role: Primary Care Nurse Care Team Related Persons Name: BEAR TURNER Address: home [address] [place], [place] Name: BEAR TURNER SECONDARY Address: home [address] [place], [place] Name: ISATU ECKERT Address: home [place], [place] Name: ISAAC VERDE PRIMARY Address: home [address] [place] [address] Name: ADRY DURANT Name: PANCHO JEROME Address: home [place], [place]
--- OUTSIDE RECORDS SUMMARY | 2024-04-27 10:15 | XMS_ITS | Continuity of Care Document ---
Author Organization [facility] Address [address] [place] [address]- Care Team Providers Care Transitional Kindergarten Teacher Name Role Phone Sisi Hernandez MD Primary Care Physician [phone] Encounter [facility] [place] Date(s): 03/15/21 - 05/18/21 [facility] [address] [place], [place] [address] Attending Physician: Not on Staff, Attending MD [...] 8:50:00 EDT, Aerosol, Route to Pharmacy Electronically, [id number], [facility], 155, cm, 06/03/20 13:15:00 E... Start Date: 12/02/20 Stop Date: 11/27/21 Status: Ordered armodafinil 150 mg oral tablet 1 tablet = 150 mg, By Mouth, Daily, # 14 tablet, 0 Refills, Maintenance, 05/12/21 13:42:00 EDT, Tablet, [facility], [...] 06/15/20 11:56:00 EST, Solution, [facility], 155, cm, 06/03/20 13:15:00 EST, Height, 68.5, kg, 06/03/20 13:18:00 EST, Dry Weight Start Date: 06/15/20 Status: Ordered dilTIAZem 240 mg/24 hours oral tablet, extended release 1 tablet = 240 mg, By Mouth, Daily, FURTHER REFILLS BY MANAGER DRILLING, # 90 tablet, 0 Refills, Maintenance, 11/27/19 8:57:00 EDT, ER Tablet, [facility], 155, cm, 10/07/19 12:25:00 [...] 05/06/20 15:17:00 EDT, [facility], [...] 15:30:53 EST, Aerosol, Route to Pharmacy Electronically, [id number]... Start Date: 09/12/18 Stop Date: 02/09/19 Status: Ordered ProAir HFA 90 mcg/inh inhalation aerosol with adapter 2, puffs, Inhalation, Every 4 hours, PRN, use with spacer chamber BRAND NAME MEDICALLY NECESSARY, #8.5 Gm, Refills 0, Tot. Refills 0, Maintenance, 12/05/20 15:38:00 EDT, Aerosol, Route to Pharmacy Electronically, [id number]... Start Date: 12/05/20 Status: Ordered syringe and [...] 08/04/20 12:39:00 EST, Capsule, [facility], Partial fill upon patient request [...] Active Bilateral leg pain(Confirmed) Active *BHN/CCA/CC-Matias Vela- [phone]/Health longterm, active care coordination(Confirmed) Active POTS (postural orthostatic t achycardia syndrome)(Confirmed) Active Medulloblastoma(Confirmed) Active RUQ pain(Confirmed) Active Viral URI(Confirmed) Active Social History Social History Type Response Smoking Status Never smoker; Tobacc o user in household: No entered on: 04/11/16 Sex
--- OUTSIDE RECORDS SUMMARY | 2024-04-27 10:15 | XMS_ITS | Continuity of Care Document ---
Author Organization [facility] Address Unknown Care Team Providers Care Practice Professional Name Role Phone Sisi Hernandez MD Primary Care Physician [phone] Encounter [facility] Date(s): 08/16/21 - 09/15/21 [facility] Allergies, Adverse Reactions, Alerts Substance [...] 0 Refills, Maintenance, 08/24/21 13:15:00 EST, Tablet, [facility] Start Date: 08/24/21 Status: Ordered Adderall XR 15 mg oral capsule, extended release 1 capsule = 15 mg, By Mouth, 2 times a day, Change from 10 mg XR and increase to 2 times per day. To take with short acting 5 mg, # 60 capsule, 0 Refills, Maintenance, 08/24/21 13:13:00 EST, ER Capsule, [facility], Partial fill upon leonardo... Start Date: 08/24/21 Status: Ordered albuterol CFC free 90 mcg/inh inhalation aerosol 2, puffs, Inhalation, Every 6 hours, PRN, # 2 each, Refills 11, Tot. Refills 11, Maintenance, 12/02/20 8:50:00 EDT, Aerosol, Route to Pharmacy Electronically, [id number], [facility], 155, cm, 06/03/20 13:15:00 E... [...] Maintenance, 06/15/20 11:56:00 EST, Solution, [facility] 3, 155, cm, 06/03/20 13:15:00 EST, Height, 68.5, kg, 06/03/20 13:18:00 EST, Dry Weight Start Date: 06/15/20 Status: Ordered Diflucan 150 mg oral tablet 1 tablet = 150 mg, By Mouth, Every 48 hours, # 2 tablet, 0 Refills, Soft Stop, 07/31/21 10:46:00 EST, Tablet, [facility] 3, Partial fill upon patient request if the prescription is for a schedule II opioid drug., 155, cm, 06/09/21 14:21:00... Start Date: 07/31/21 Status: Ordered dilTIAZem 240 mg/24 hours oral tablet, extended release 1 tablet = 240 mg, By Mouth, Daily, FURTHER REFILLS BY PORTAL DEVELOPER, # 90 tablet, 0 Refills, Maintenance, 11/27/19 [...] tablet, 2 Refills, Maintenance, 05/06/20 15:17:00 EDT, [facility], 155, cm, 05/03/20 [...] 15:30:53 EST, Aerosol, Route to Pharmacy Electronically, [id number]... Start Date: 09/12/18 Stop Date: 02/09/19 Status: Ordered ProAir HFA 90 mcg/inh inhalation aerosol with adapter 2, puffs, Inhalation, Every 4 hours, PRN, use with spacer chamber BRAND NAME MEDICALLY NECESSARY, #8.5 Gm, Refills 0, Tot. Refills 0, Maintenance, 12/05/20 15:38:00 EDT, Aerosol, Route to Pharmacy Electronically, [id number]... Start Date: 12/05/20 Status: Ordered Sunosi 75 [...] 2 Refills, Maintenance, 08/04/20 12:39:00 EST, Capsule, [facility], Partial fill [...] Active Bilateral leg pain(Confirmed) Active *BHN/CCA/CC-Matias Vela- [phone]/Health retirement, active care coordination(Confirmed) Active POTS (postural orthostatic t achycardia syndrome)(Confirmed) Active Medulloblastoma(Confirmed) Active RUQ pain(Confirmed) Active Social History Social History Type Response Smoking Status Never smoker; Tobacc o user in household: No entered on: 04/11/16 Sex Female
--- OUTSIDE RECORDS SUMMARY | 2024-04-27 10:15 | XMS_ITS | Continuity of Care Document ---
Author Organization [facility] Address [address] [place] [address]- Care Team Providers Care Medical Device Name Role Phone Sisi Hernandez MD Primary Care Physician Encounter [place] Date(s): 12/19/22 - 01/18/[address] [address] Attending Physician: AdmAngel can Admitting Physician: AdmtrAngel Referring Physician: [id number] Allergies, Adverse Reactions, Alerts Substance Reaction Severity [...] Refills, Maintenance, 12/21/22 14:40:00 EDT, ER Capsule, [facility], Partial fill upon patient request if the prescription is for a schedule II opioid drug., 155, cm, 12/05/22 11:... Start Date: 12/21/22 Status: Ordered albuterol CFC free 90 mcg/inh inhalation aerosol 2, puffs, Inhalation, Every 6 hours, PRN, # 2 each, Refills 11, Tot. Refills 11, Maintenance, 02/15/22 13:12:00 EDT, Aerosol, Route to Pharmacy Electronically, [id number], [facility], ONLY ALBUTEROL HFA, CANCEL... Start Date: 02/15/22 Stop Date: 02/10/23 Status: Ordered Colace sodium 100 mg oral capsule 100 mg, 1, capsule, By Mouth, 2 times a day, PRN, # 30 capsule, Refills 0, Tot. Refills 0, Maintenance, for constipation, 07/31/22 11:03:00 EST, Route to Pharmacy Electronically, [facility], Partial fill upon patient request if [...] 6 Refills, Maintenance, 09/04/22 8:50:00 EST, Solution, [facility], 155, cm, 08/14/22 13:52:00 EST, Height, 68.1, kg, 08/14/22 13:52:00 EST, Dry Weight Start Date: 09/04/22 Status: Ordered esomeprazole 40 mg oral enteric coated capsule TAKE 1 CAPSULE BY MOUTH EVERY DAY Start Date: 07/12/22 Status: Ordered Flovent HFA 220 mcg/inh inhalation aerosol 2 puffs, Inhalation, 2 times a day, new dosage, # 12 Gm, 0 Refills, Maintenance, 02/15/22 13:10:00 EDT, Aerosol, [facility], new dosage, 155, cm, 12/08/21 [...] 07/31/22 11:03:00 EST, Route to Pharmacy Electronically, [facility], Partial fill upon patient request if the prescription is for a schedule... Start Date: 07/31/22 Status: Ordered LORazepam 0.5 mg oral tablet See Instructions, TAKE 1 TABLET BY MOUTH TWO TIMES A DAY NEEDED FOR ANXIETY, # 28 tablet, 2 Refills, Maintenance, 12/05/22 12:25:00 EDT, [facility], 155, cm, 12/05/22 11:40:00 EDT, Height, 68.1, kg, 08/14/22 13:52:00 EST, Dry Weight Start Date: 12/05/22 Status: Ordered Metoprolol Tartrate 50 mg oral tablet 0 Refills, Maintenance, 03/04/20 9:58:00 EDT Start Date: 03/04/20 Status: Ordered MiraLax oral powder for reconstitution = 17 Gm, By Mouth, Daily, dissolve in water before taking, # 255 Gm, 0 Refills, Maintenance, 08/01/22 6:06:00 EST, REC Powder, [facility] 3, Partial fill upon patient request [...] 6:06:00 EST, Tablet, [facility] 3, Partial fill upon patient request if the prescription is for a schedule II opioid drug., 155, cm,... Start Date: 08/01/22 Status: Ordered Symbicort 160mcg/4.5mcg Inhaler 2, puffs, Inhalation, 2 times a day, # 3 each, Refills 5, Tot. Refills 5, Maintenance, 09/27/22 12:00:00 EST, Aerosol, Route to Pharmacy Electronically, [id number], [facility], replaces flovent inhaler, 155, cm,... Start [...] 07/31/22 11:03:00 EST, Route to Pharmacy Electronically, [facility], Partial fill upon patient request if the prescription is... Start Date: 07/31/22 Status: Ordered verapamil 240 mg/12 hours oral tablet, extended release TAKE 1 TABLET BY MOUTH DAILY. Start Date: 09/27/22 Status: Ordered Vitamin D3 1000 intl units oral capsule 1 capsule = 25 mcg, By Mouth, Daily, # 100 capsule, 3 Refills, Maintenance, 06/05/22 14:27:00 EST, Capsule, [facility], Partial fill upon patient [...] Bilateral leg pain Confirmed Active *BHN/CCA/CC-Matias Vela- [phone]/Health skilled nursing, active care coordination Confirmed Active [...] Care Member Role: PCP Address: Address: [address] [place] [address] [facility] Name: Lizzette To RN Position: [facility] RN Member Role: Primary Care Nurse Name: Karolina Adkins MD Position: [facility] Physician - Primary Care Member Role: Lifetime Consulting Physician Address: Address: [address] [place] [address] [facility] Care [place], [place] [facility] Name: Rossy Rowe RN Position: [facility] SN RN Member Role: Primary Care Nurse Name: Cindi Hayawrd Position: [facility] RN Member Role: Primary Care Nurse Name: Bela Mcmahon RN Position: [facility] Track Moving Machine Operator Member Role: Primary Care Nurse Name: Nicole Hernandez RN Position: [facility] RN Member Role: Primary Care Nurse Name: Zac Castillo RN Position: [facility] ED RN W/OE and Tasks Member Role: Primary Care Nurse Name: Jeanne Grande RN Position: [facility] RN Member Role: Primary Care Nurse Care Team Related Persons Name: TURNERBEAR RIBERA Address: home [address] [place] [address] Name: BEAR TURNER SECONDARY Address: home [address] [place] [address] Name: ISATU ECKERT Address: home [place], [place] Name: ISAAC VERDE PRIMARY Address: home [address] [place] [address] Name: ADRY DURANT Name: PANCHO JEROME Address: [place], [place]
--- OUTSIDE RECORDS SUMMARY | 2024-04-27 10:15 | XMS_ITS | Continuity of Care Document ---
Author Organization [facility] Address [address], [address] [place] [address]- Care Team Providers Care Director Of Engineering Name Role Phone Sisi Hernandez MD Primary Care Physician [id number] Date(s): 05/16/22 - 05/23/22 [facility] [address], [address] [place], [place] [address] Attending Physician: Abby Villalpando MD Allergies, Adverse [...] 13:12:00 EDT, Aerosol, Route to Pharmacy Electronically, [id number], [facility], ONLY ALBUTEROL HFA, CANCEL... Start [...] 6 Refills, Maintenance, 10/03/21 12:18:00 EST, Solution, [facility] 3, 155, cm, 09/27/21 15:08:00 EST, Height, 68.5, kg, 06/03/20 13:18:00 EST, Dry Weight Start Date: 10/03/21 Status: Ordered cyanocobalamin 1000 mcg/ml injectable solution 1 mL = 1,000 mcg, Intramuscular, Every 30 days, # 3 mL, 6 Refills, Maintenance, 06/15/20 11:56:00 EST, Solution, [facility] 3, 155, cm, 06/03/20 13:15:00 EST, Height, 68.5, kg, 06/03/20 13:18:00 EST, Dry Weight Start Date: 06/15/20 Status: Ordered dilTIAZem 240 mg/24 hours oral tablet, extended release 1 tablet = 240 mg, By Mouth, Daily, FURTHER REFILLS BY CUSTOMER SERVICE REPRESENTATIVE TELLER, # 90 tablet, 0 Refills, Maintenance, 11/27/19 8:57:00 EDT, ER Tablet, [facility] 3, 155, cm, 10/07/19 12:25:00 EDT, Height, 63, kg, 07/01/19 19:58:00 EST, Dry Weight Start Date: 11/27/19 Status: Ordered Flovent HFA 220 mcg/inh inhalation aerosol 2 puffs, Inhalation, 2 times a day, new dosage, # 12 Gm, 0 Refills, Maintenance, 02/15/22 13:10:00 EDT, Aerosol, [facility], new dosage, 155, cm, 12/08/21 [...] Refills, Maintenance, 11/16/21 23:51:00 EDT, DIS Tablet, [facility], Partial fill upon patient request if the prescription is for a schedule II o... Start Date: 11/16/21 Status: Ordered Peridex 0.12% liquid 15 mL = 0.018 Gm, By Mouth, 2 times a day, # 420 mL, 0 Refills, Maintenance, 01/18/22 8:47:00 EDT, Liquid, [facility], Partial fill upon patient [...] Date: 10/25/21 Status: Ordered Problem List Condition Confirmation Course [...] Bilateral leg pain Confirmed Active *BHN/CCA/CC-Matias Dixongins- [phone]/Health longterm, active care coordination Confirmed Active POTS (postural orthostatic tachycardia syndrome) Confirmed Active Medulloblastoma Confirmed Active RUQ pain Confirmed Active Social History Social History Type Response Smoking Status Never smoker; Tobacc o user in household: No entered on: 04/11/16 Sex Female Patient Care team information Personnel Name: Sisi Hernandez MD Address: Address: [address] [place] [address]
--- OUTSIDE RECORDS SUMMARY | 2024-04-27 10:15 | XMS_ITS | Continuity of Care Document ---
Author Organization [facility] Address [address], 4t [place] [address]- Care Team Providers Care Brick Catcher Name Role Phone Sisi Hernandez MD Primary Care Physician [phone] Encounter [facility] Date(s): 08/08/22 - 09/07/22 [facility] Lauren Hernandezs [facility] [address], 4th Floor [place], [place] [address] Allergies, Adverse Reactions, Alerts Substance [...] 13:12:00 EDT, Aerosol, Route to Pharmacy Electronically, [id number], [facility], ONLY ALBUTEROL HFA, CANCEL... Start Date: 02/15/22 Stop Date: 02/10/23 Status: Ordered Colace sodium 100 mg oral capsule 100 mg, 1, capsule, By Mouth, 2 times a day, PRN, # 30 capsule, Refills 0, Tot. Refills 0, Maintenance, for constipation, 07/31/22 11:03:00 EST, Route to Pharmacy Electronically, [facility], Partial fill upon patient request [...] 6 Refills, Maintenance, 09/04/22 8:50:00 EST, Solution, [facility], 155, cm, 08/14/22 13:52:00 EST, [...] 0 Refills, Maintenance, 02/15/22 13:10:00 EDT, Aerosol, [facility], new dosage, 155, cm, 12/08/21 10:46:00 [...] 07/31/22 11:03:00 EST, Route to Pharmacy Electronically, [facility], Partial fill upon patient request if the prescription is for a schedule... Start Date: 07/31/22 Status: Ordered LORazepam 0.5 mg oral tablet See Instructions, TAKE 1 TABLET BY MOUTH TWO TIMES A DAY NEEDED FOR ANXIETY, # 28 tablet, 2 Refills, Maintenance, 06/06/22 10:45:00 EST, [facility], 155, cm, 04/06/22 [...] Refills, Maintenance, 08/01/22 6:06:00 EST, REC Powder, [facility], Partial fill upon patient request [...] 0 Refills, Maintenance, 08/01/22 6:06:00 EST, Tablet, [facility], Partial fill upon patient request if the prescription is for a schedule II opioid drug., 155, cm,... Start Date: 08/01/22 Status: Ordered simethicone 80 mg oral tablet, chewable 80 mg, 1, tablet, Chew, 4 times a day, # 12 tablet, Refills 0, Tot. Refills 0, Maintenance, 07/31/22 11:03:00 EST, Route to Pharmacy Electronically, [facility], Partial fill upon patient request [...] 07/31/22 11:03:00 EST, Route to Pharmacy Electronically, [facility], Partial fill [...] 3 Refills, Maintenance, 06/05/22 14:27:00 EST, Capsule, [facility], Partial [...] Bilateral leg pain Confirmed Active *BHN/CCA/CC-[facility]- [phone]/Health retirement, active care coordination Confirmed Active POTS (postural orthostatic tachycardia syndrome) Confirmed Active Medulloblastoma Confirmed Active RUQ pain Confirmed Active Social History Social History Type Response Smoking Status Never smoker; Tobacc o user in household: No entered on: 04/11/16 Sex Female Patient Care team information Care Team Personnel Name: Vidhya Grace RN Position: [facility] RN Member Role: Primary Care Nurse Name: Sisi Hernandez MD Position: [facility] Primary Care Physician Member Role: PCP Address: Address: [address] [place] [address] - Name: Lizzette To RN Position: [facility] RN Member Role: Primary Care Nurse Name: Karolina Adkins MD Position: [facility] Physician -Physician Practices Member Role: Lifetime Consulting Physician Address: Address: [address] [place] [address] [facility] [place] - Name: Isadora Godfrey RN Position: [facility] RN Member Role: Primary Care Nurse Name: Rossy Rowe RN Position: [facility] SN RN Member Role: Primary Care Nurse Name: iCndi Hayward Position: [facility] RN Member Role: Primary Care Nurse Name: Bela Mcmahon RN Position: [facility] Claims Specialist Member Role: Primary Care Nurse Name: Nicole Hernandez RN Position: [facility] RN Member Role: Primary Care Nurse Name: Zac Castillo RN Position: [facility] ED RN W/OE and Tasks Member Role: Primary Care Nurse Name: Harjinder MONTELONGO, Jeanne Baker Position: [facility] RN Member Role: Primary Care Nurse Care Team Related Persons Name: BEAR TURNER Address: home [address] [place] [address] Name: BEAR TURNER SECONDARY Address: home [address] [place] [address] Name: ISATU ECKERT Address: [place] [address] Name: ISAAC VERDE PRIMARY Address: home [address] [place] [address] Name: ADRY DURANT Name: PANCHO JEROME Address: [place] [address]
--- OUTSIDE RECORDS SUMMARY | 2024-04-27 10:15 | XMS_ITS | Continuity of Care Document ---
Author Organization [facility] Address [address] [place] [address]- Care Team Providers Care Pole Classifier Name Role Phone Mary KEATING, Sisi Almanza Primary Care Physician [phone] Encounter [facility] Date(s): 09/01/22 - 10/01/22 [facility] [address] [place], [place] [address] Allergies, Adverse Reactions, [...] 13:12:00 EDT, Aerosol, Route to Pharmacy Electronically, [id number], [facility], ONLY ALBUTEROL HFA, CANCEL... Start Date: 02/15/22 Stop Date: 02/10/23 Status: Ordered Colace sodium 100 mg oral capsule 100 mg, 1, capsule, By Mouth, 2 times a day, PRN, # 30 capsule, Refills 0, Tot. Refills 0, Maintenance, for constipation, 07/31/22 11:03:00 EST, Route to Pharmacy Electronically, [facility], Partial fill upon patient [...] 6 Refills, Maintenance, 09/04/22 8:50:00 EST, Solution, [facility], 155, cm, 08/14/22 13:52:00 EST, Height, 68.1, kg, 08/14/22 13:52:00 EST, Dry Weight Start Date: 09/04/22 Status: Ordered esomeprazole 40 mg oral enteric coated capsule TAKE 1 CAPSULE BY MOUTH EVERY DAY Start Date: 07/12/22 Status: Ordered Flovent HFA 220 mcg/inh inhalation aerosol 2 puffs, Inhalation, 2 times a day, new dosage, # 12 Gm, 0 Refills, Maintenance, 02/15/22 13:10:00 EDT, Aerosol, [facility], new dosage, 155, cm, 12/08/21 [...] tablet, 2 Refills, Maintenance, 06/06/22 10:45:00 EST, [facility], 155, cm, 04/06/22 14:56:00 [...] Refills, Maintenance, 08/01/22 6:06:00 EST, REC Powder, [facility], Partial fill upon patient request [...] 0 Refills, Maintenance, 08/01/22 6:06:00 EST, Tablet, [facility] 3, Partial fill upon patient request if the prescription is for a schedule II opioid drug., 155, cm,... Start Date: 08/01/22 Status: Ordered Symbicort 160mcg/4.5mcg Inhaler 2, puffs, Inhalation, 2 times a day, # 3 each, Refills 5, Tot. Refills 5, Maintenance, 09/27/22 12:00:00 EST, Aerosol, Route to Pharmacy Electronically, [id number], [facility], replaces flovent inhaler, 155, cm,... Start [...] 3 Refills, Maintenance, 06/05/22 14:27:00 EST, Capsule, [facility], Partial [...] Bilateral leg pain Confirmed Active *BHN/CCA/CC-[facility]- [phone]/Health nursing home, active care coordination Confirmed Active POTS (postural orthostatic tachycardia syndrome) Confirmed Active Medulloblastoma Confirmed Active RUQ pain Confirmed Active Social History Social History Type Response Smoking Status Never smoker; Tobacc o user in household: No entered on: 04/11/16 Sex Patient Care team information Care Team Personnel Name: Vidhya Grace RN Position: [facility] RN Member Role: Primary Care Nurse Name: Sisi Hernandez MD Position: [facility] Primary Care Physician Member Role: PCP Address: Address: [address] [place] [id number] Name: Lizzette To RN Position: [facility] RN Member Role: Primary Care Nurse Name: Karolina Adkins MD Position: [facility] Physician -Physician Practices Member Role: Lifetime Consulting Physician Address: Address: [address] [place] [address] Geriatric & Palliative Care [place], [place] [address] Name: Isadora Godfrey RN Position: [facility] RN Member Role: Primary Care Nurse Name: Rossy Rowe RN Position: [facility] SN RN Member Role: Primary Care Nurse Name: Cindi Hayward Position: [facility] RN Member Role: Primary Care Nurse Name: Bela Mcmahon RN Position: [facility] Hospital Functional Analyst Member Role: Primary Care Nurse Name: Nicole Hernandez RN Position: [facility] RN Member Role: Primary Care Nurse Name: Zac Castillo RN Position: [facility] ED RN W/OE and Tasks Member Role: Primary Care Nurse Name: Jeanne Grande RN Position: [facility] RN Member Role: Primary Care Nurse Care Team Related Persons Name: BEAR TURNER Address: home [address] [place] [address] Name: BEAR TURNER SECONDARY Address: home [address] [place] [address] Name: ISATU ECKERT Address: [place] [address] Name: ISAAC VERDE PRIMARY Address: [address] [place] [address] Name: ADRY DURANT Name: PANCHO JEROME Address: [place] [address]
--- OUTSIDE RECORDS SUMMARY | 2024-04-27 10:16 | XMS_ITS | Continuity of Care Document ---
Author Organization [facility] Address [address], 4t [place] [address]- Care Team Providers Care Waste Management Specialist Name Role Phone Sisi Hernandez MD Primary Care Physician [place] [facility] [place]s): 06/04/22 - 07/04/22 [facility] [address], 4th [address] [place], [place] [address] Allergies, Adverse [...] 11/16/21 23:51:00 EDT, Route to Pharmacy Electronically, [facility], Partial fill upon patient request if the presc... Start Date: 11/16/21 Status: Ordered albuterol CFC free 90 mcg/inh inhalation aerosol 2, puffs, Inhalation, Every 6 hours, PRN, # 2 each, Refills 11, Tot. Refills 11, Maintenance, 02/15/22 13:12:00 EDT, Aerosol, Route to Pharmacy Electronically, [id number], [facility], ONLY ALBUTEROL HFA, CANCEL... Start [...] 6 Refills, Maintenance, 10/03/21 12:18:00 EST, Solution, [facility], 155, cm, 09/27/21 15:08:00 EST, Height, 68.5, kg, 06/03/20 13:18:00 EST, Dry Weight Start Date: 10/03/21 Status: Ordered cyanocobalamin 1000 mcg/ml injectable solution 1 mL = 1,000 mcg, Intramuscular, Every 30 days, # 3 mL, 6 Refills, Maintenance, 06/06/22 12:08:00 EST, Solution, [facility], 155, cm, 04/06/22 14:56:00 EDT, Height, 67.5, kg, 04/06/22 14:56:00 EDT, Dry Weight Start Date: 06/06/22 Status: Ordered dilTIAZem 240 mg/24 hours oral tablet, extended release 1 tablet = 240 mg, By Mouth, Daily, FURTHER REFILLS BY HYDROPULPER, # 90 tablet, 0 Refills, Maintenance, 11/27/19 8:57:00 EDT, ER Tablet, [facility], 155, cm, 10/07/19 12:25:00 EDT, Height, 63, kg, 07/01/19 19:58:00 EST, Dry Weight Start Date: 11/27/19 Status: Ordered Flovent HFA 220 mcg/inh inhalation aerosol 2 puffs, Inhalation, 2 times a day, new dosage, # 12 Gm, 0 Refills, Maintenance, 02/15/22 13:10:00 EDT, Aerosol, [facility], new dosage, 155, cm, 12/08/21 [...] 0, Tot. Refills 0, Maintenance, for pain, 04/21/22 23:51:00 EDT, Route to Pharmacy Electronically, [facility], Partial fill upon patient request if the prescription is... Start Date: 11/16/21 Status: Ordered LORazepam 0.5 mg oral tablet See Instructions, TAKE 1 TABLET BY MOUTH TWO TIMES A DAY NEEDED FOR ANXIETY, # 28 tablet, 2 Refills, Maintenance, 06/06/22 10:45:00 EST, [facility], 155, cm, 04/06/22 14:56:00 [...] Refills, Maintenance, 11/16/21 23:51:00 EDT, DIS Tablet, [facility], Partial fill upon patient request if the prescription is for a schedule II o... Start Date: 11/16/21 Status: Ordered Peridex 0.12% liquid 15 mL = 0.018 Gm, By Mouth, 2 times a day, # 420 mL, 0 Refills, Maintenance, 01/18/22 8:47:00 EDT, Liquid, [facility], Partial fill upon [...] Refills, Maintenance, 06/05/22 14:27:00 EST, Capsule, [facility], Partial [...] Bilateral leg pain Confirmed Active *N/CCA/CC-[facility]- [phone]/Health nursing home, active care coordination Confirmed Active [...] Hernandez MD Position: [facility] Primary Care Physician Member Role: PCP Address: Address: [address] [place] [address] Name: Yousuf MONTELONGO, Lizzette Position: S RN Member Role: Primary Care Nurse Name: Karolina Adkins MD Position: [facility] Physician -Physician Practices Member Role: Lifetime Consulting Physician Address: Address: [address] [place] [address] Geriatric & [place] [address]- Name: Isadora Godfrey RN Position: [facility] RN Member Role: Primary Care Nurse Name: Rossy Rowe RN Position: [facility] SN RN Member Role: Primary Care Nurse Name: Bela Mcmahon RN Position: [facility] Hospital Senior Merchandiser Member Role: Primary Care Nurse Name: Nicoel Hernandez RN Position: [facility] RN Member Role: Primary Care Nurse Name: Zac Castillo RN Position: [facility] ED RN W/OE and Tasks Member Role: Primary Care Nurse Name: Jeanne Grande RN Position: [facility] RN Member Role: Primary Care Nurse Care Team Related Persons Name: TURNERBEAR Address: home [address] [place] [address] Name: ISATU ECKERT Address: [place] [address] Name: ADRY DURANT Name: PANCHO JEROME Address: [place] [address]
--- OUTSIDE RECORDS SUMMARY | 2024-04-27 10:16 | XMS_ITS | Continuity of Care Document ---
Author Organization [facility] Address Unknown Care Team Providers Care Pricer Name Role Phone Sisi Hernandez MD Primary Care Physician [place] [facility] [place]s): 08/16/21 - 09/15/21 [facility] Allergies, Adverse Reactions, Alerts Substance [...] 0 Refills, Maintenance, 08/24/21 13:15:00 EST, Tablet, [facility] Start Date: 08/24/21 Status: Ordered Adderall XR 15 mg oral capsule, extended release 1 capsule = 15 mg, By Mouth, 2 times a day, Change from 10 mg XR and increase to 2 times per day. To take with short acting 5 mg, # 60 capsule, 0 Refills, Maintenance, 08/24/21 13:13:00 EST, ER Capsule, [facility], Partial fill upon leonardo... Start Date: 08/24/21 Status: Ordered albuterol CFC free 90 mcg/inh inhalation aerosol 2, puffs, Inhalation, Every 6 hours, PRN, # 2 each, Refills 11, Tot. Refills 11, Maintenance, 12/02/20 8:50:00 EDT, Aerosol, Route to Pharmacy Electronically, [id number], [facility], 155, cm, 06/03/20 13:15:00 [...] Refills, Maintenance, 06/15/20 11:56:00 EST, Solution, [facility], 155, cm, 06/03/20 13:15:00 EST, Height, 68.5, kg, 06/03/20 13:18:00 EST, Dry Weight Start Date: 06/15/20 Status: Ordered Diflucan 150 mg oral tablet 1 tablet = 150 mg, By Mouth, Every 48 hours, # 2 tablet, 0 Refills, Soft Stop, 07/31/21 10:46:00 EST, Tablet, [facility], Partial fill upon patient request if the prescription is for a schedule II opioid drug., 155, cm, 06/09/21 14:21:00... Start Date: 07/31/21 Status: Ordered dilTIAZem 240 mg/24 hours oral tablet, extended release 1 tablet = 240 mg, By Mouth, Daily, FURTHER REFILLS BY COMMERCIAL REAL ESTATE BROKER, # 90 tablet, 0 Refills, Maintenance, 11/27/19 [...] 2 Refills, Maintenance, 05/06/20 15:17:00 EDT, [facility], 155, cm, 05/03/20 [...] 15:30:53 EST, Aerosol, Route to Pharmacy Electronically, [id number]... Start Date: 09/12/18 Stop Date: 02/09/19 Status: Ordered ProAir HFA 90 mcg/inh inhalation aerosol with adapter 2, puffs, Inhalation, Every 4 hours, PRN, use with spacer chamber BRAND NAME MEDICALLY NECESSARY, #8.5 Gm, Refills 0, Tot. Refills 0, Maintenance, 12/05/20 15:38:00 EDT, Aerosol, Route to Pharmacy Electronically, [id number]... Start Date: 12/05/20 Status: Ordered Sunosi 75 [...] Refills, Maintenance, 08/04/20 12:39:00 EST, Capsule, [facility] [...] Active Bilateral leg pain(Confirmed) Active *BHN/CCA/CC-[facility]- [phone]/Health pen[facility]iary, active care coordination(Confirmed) Active POTS (postural orthostatic t achycardia syndrome)(Confirmed) Active Medulloblastoma(Confirmed) Active RUQ pain(Confirmed) Active Social History Social History Type Response Smoking Status Never smoker; Tobacc o user in household: No entered on: 04/11/16 Sex Female
--- OUTSIDE RECORDS SUMMARY | 2024-04-27 10:16 | XMS_ITS | Continuity of Care Document ---
Author Organization [facility] Address [address], [address], [address] [place] [address]- Care Team Providers Care Multifocal Lens Inspector Name Role Phone Sisi Hernandez MD Primary Care Physician Encounter [facility] Date(s): 02/28/22 - 03/30/22 [facility] [address], [address], [address] [place] [address]- [place] Allergies, Adverse Reactions, Alerts Substance Reaction [...] 13:12:00 EDT, Aerosol, Route to Pharmacy Electronically, [id number], [facility], ONLY ALBUTEROL HFA, CANCEL... [...] Maintenance, 10/03/21 12:18:00 EST, Solution, [facility], 155, cm, 09/27/21 15:08:00 EST, Height, 68.5, kg, 06/03/20 13:18:00 EST, Dry Weight Start Date: 10/03/21 Status: Ordered cyanocobalamin 1000 mcg/ml injectable solution 1 mL = 1,000 mcg, Intramuscular, Every 30 days, # 3 mL, 6 Refills, Maintenance, 06/15/20 11:56:00 EST, Solution, [facility], 155, cm, 06/03/20 13:15:00 EST, Height, 68.5, kg, 06/03/20 13:18:00 EST, Dry Weight Start Date: 06/15/20 Status: Ordered dilTIAZem 240 mg/24 hours oral tablet, extended release 1 tablet = 240 mg, By Mouth, Daily, FURTHER REFILLS BY INTERMODAL CUSTOMER SERVICE, # 90 tablet, 0 Refills, Maintenance, 11/27/19 8:57:00 EDT, ER Tablet, [facility], 155, cm, 10/07/19 12:25:00 EDT, Height, 63, kg, 07/01/19 19:58:00 EST, Dry Weight Start Date: 11/27/19 Status: Ordered Flovent HFA 220 mcg/inh inhalation aerosol 2 puffs, Inhalation, 2 times a day, new dosage, # 12 Gm, 0 Refills, Maintenance, 02/15/22 13:10:00 EDT, Aerosol, [facility], new dosage, 155, cm, [...] Refills, Maintenance, 11/16/21 23:51:00 EDT, DIS Tablet, [facility], Partial fill upon patient request if the prescription is for a schedule II o... Start Date: 11/16/21 Status: Ordered Peridex 0.12% liquid 15 mL = 0.018 Gm, By Mouth, 2 times a day, # 420 mL, 0 Refills, Maintenance, 01/18/22 8:47:00 EDT, Liquid, [facility], Partial fill upon patient [...] Near syncope(Confirmed) Active Bilateral leg pain(Confirmed) Active *BHN/CCA/CC-[facility]- [phone]/Health [facility], active care coordination(Confirmed) Active POTS (postural orthostatic t achycardia syndrome)(Confirmed) Active Medulloblastoma(Confirmed) Active RUQ pain(Confirmed) Active Social History Social History Type Response Smoking Status Never smoker; Tobacc o user in household: No entered on: 04/11/16 Sex Female Care Team Personnel Name: Sisi Hernandez MD Address: [address] [place] [address]
--- OUTSIDE RECORDS SUMMARY | 2024-04-27 10:16 | XMS_ITS | Continuity of Care Document ---
Author Organization [facility] ter Address [address] [place] [address]- Care Team Providers Care Hand Sander Name Role Phone Sisi Hernandez MD Primary Care Physician [id number] Date(s): [facility]/14/22 - 05/20/[address] [address] Attending Physician: Aurelio Cooper MD Admitting Physician: Aurelio Cooper MD Referring Physician: Aurelio Cooper MD Allergies, Adverse Reactions, Alerts Substance Reaction [...] 11/16/21 23:51:00 EDT, Route to Pharmacy Electronically, [facility], Partial fill upon patient request if the presc... Start Date: 11/16/21 Status: Ordered albuterol CFC free 90 mcg/inh inhalation aerosol 2, puffs, Inhalation, Every 6 hours, PRN, # 2 each, Refills 11, Tot. Refills 11, Maintenance, 02/15/22 13:12:00 EDT, Aerosol, Route to Pharmacy Electronically, [id number], [facility], [...] 6 Refills, Maintenance, 10/03/21 12:18:00 EST, Solution, [facility], 155, cm, 09/27/21 15:08:00 EST, Height, 68.5, kg, 06/03/20 13:18:00 EST, Dry Weight Start Date: 10/03/21 Status: Ordered cyanocobalamin 1000 mcg/ml injectable solution 1 mL = 1,000 mcg, Intramuscular, Every 30 days, # 3 mL, 6 Refills, Maintenance, 06/15/20 11:56:00 EST, Solution, [facility] 3, 155, cm, 06/03/20 13:15:00 EST, Height, 68.5, kg, 06/03/20 13:18:00 EST, Dry Weight Start Date: 06/15/20 Status: Ordered dilTIAZem 240 mg/24 hours oral tablet, extended release 1 tablet = 240 mg, By Mouth, Daily, FURTHER REFILLS BY AUTOMOTIVE ELECTRICAL FITTER, # 90 tablet, 0 Refills, Maintenance, 11/27/19 [...] 11/16/21 23:51:00 EDT, Route to Pharmacy Electronically, [facility], Partial fill upon patient request if the prescription is... Start Date: 11/16/21 Status: Ordered LORazepam 0.5 mg oral tablet See Instructions, TAKE 1 TABLET BY MOUTH TWO TIMES A DAY NEEDED FOR ANXIETY, # 28 tablet, 2 Refills, Maintenance, 05/06/20 15:17:00 EDT, [facility], 155, cm, 05/03/20 [...] Refills, Maintenance, 11/16/21 23:51:00 EDT, DIS Tablet, [facility], Partial fill upon patient request if the prescription is for a schedule II o... Start Date: 11/16/21 Status: Ordered Peridex 0.12% liquid 15 mL = 0.018 Gm, By Mouth, 2 times a day, # 420 mL, 0 Refills, Maintenance, 01/18/22 8:47:00 EDT, Liquid, [facility], [...] 3 Refills, Maintenance, 10/25/21 11:13:00 EDT, Capsule, [facility] [...] Bilateral leg pain Confirmed Active *BHN/CCA/CC-[facility]- [phone]/Health long term, active care coordination Confirmed Active POTS (postural orthostatic tachycardia syndrome) Confirmed Active Medulloblastoma Confirmed Active RUQ pain Confirmed Active Social History Social History Type Response Smoking Status Never smoker; Tobacc o user in household: No entered on: 04/11/16 Sex Female Patient Care team information Personnel Name: Sisi Hernandez MD Address: Address: [address] [place] [address]
--- OUTSIDE RECORDS SUMMARY | 2024-04-27 10:16 | XMS_ITS | Continuity of Care Document ---
Author Organization [facility] Address [address] [place] [address]- Care Team Providers Care Cancer Program Coordinator Name Role Phone Sisi Hernandez MD Primary Care Physician [place] [facility] [place] - 07/21/23 [facility] [address] [address] Attending Physician: Nita Castillo MD Admitting [...] Refills, Maintenance, 12/21/22 14:40:00 EDT, ER Capsule, [facility] 3, Partial fill upon patient request if the prescription is for a schedule II opioid drug., 155, cm, 12/05/22 11:... Start Date: 12/21/22 Status: Ordered albuterol CFC free 90 mcg/inh inhalation aerosol 2, puffs, Inhalation, Every 6 hours, PRN, # 2 each, Refills 11, Tot. Refills 11, Maintenance, 02/15/22 13:12:00 EDT, Aerosol, Route to Pharmacy Electronically, [id number], [facility] 3, ONLY ALBUTEROL HFA, CANCEL... Start Date: 02/15/22 Stop Date: 02/10/23 Status: Ordered Colace sodium 100 mg oral capsule 100 mg, 1, capsule, By Mouth, 2 times a day, PRN, # 30 capsule, Refills 0, Tot. Refills 0, Maintenance, for constipation, 07/31/22 11:03:00 EST, Route to Pharmacy Electronically, [facility] 3, Partial fill upon patient request if [...] 6 Refills, Maintenance, 09/04/22 8:50:00 EST, Solution, [facility] 3, 155, cm, 08/14/22 13:52:00 EST, Height, 68.1, kg, 08/14/22 13:52:00 EST, Dry Weight Start Date: 09/04/22 Status: Ordered esomeprazole 40 mg oral enteric coated capsule TAKE 1 CAPSULE BY MOUTH EVERY DAY Start Date: 07/12/22 Status: Ordered Flovent HFA 220 mcg/inh inhalation aerosol 2 puffs, Inhalation, 2 times a day, new dosage, # 12 Gm, 0 Refills, Maintenance, 02/15/22 13:10:00 EDT, Aerosol, [facility], new dosage, 155, cm, [...] 07/31/22 11:03:00 EST, Route to Pharmacy Electronically, [facility], Partial fill upon patient request if the prescription is for a schedule... Start Date: 07/31/22 Status: Ordered LORazepam 0.5 mg oral tablet See Instructions, TAKE 1 TABLET BY MOUTH TWO TIMES A DAY NEEDED FOR ANXIETY, # 28 tablet, 2 Refills, Maintenance, 12/05/22 12:25:00 EDT, [facility], 155, cm, 12/05/22 [...] 0 Refills, Maintenance, 08/01/22 6:06:00 EST, Tablet, [facility], Partial fill upon patient request if the prescription is for a schedule II opioid drug., 155, cm,... Start Date: 08/01/22 Status: Ordered Symbicort 160mcg/4.5mcg Inhaler 2, puffs, Inhalation, 2 times a day, # 3 each, Refills 5, Tot. Refills 5, Maintenance, 09/27/22 12:00:00 EST, Aerosol, Route to Pharmacy Electronically, [id number], [facility], replaces flovent inhaler, 155, cm,... [...] 07/31/22 11:03:00 EST, Route to Pharmacy Electronically, [facility] 3, Partial fill upon patient request if the prescription is... Start Date: 07/31/22 Status: Ordered verapamil 240 mg/12 hours oral tablet, extended release TAKE 1 TABLET BY MOUTH DAILY. Start Date: 02/05/23 Status: Ordered Vitamin D3 50,000 intl units oral capsule 1 capsule = 1,250 mcg, By Mouth, Every week, # 13 capsule, 1 Refills, Maintenance, 05/17/23 17:07:00 EDT, Capsule, [facility] 3, Partial fill upon patient request if [...] Bilateral leg pain Confirmed Active *N/MIRELLA/FLORESITA-Matias Vela- [phone]/Health group home, active care coordination Confirmed Active POTS (postural orthostatic tachycardia syndrome) Confirmed Active Medulloblastoma Confirmed Active RUQ pain Confirmed Active Tachy-sharmin syndrome Confirmed Active Social History Social History Type Response Smoking Status Never smoker; Tobacc o user in household: No entered on: 04/11/16 Sex Patient Care team information Care Team Personnel Name: Vidhya Grace RN Position: [facility] RN Member Role: Primary Care Nurse Name: Sisi Hernandez MD Position: [facility] Physician - Primary Care Member Role: PCP Address: Address: [address] [place] [address] - Name: Lizzette To RN Position: [facility] SN RN Member Role: Primary Care Nurse Name: Karolina Adkins MD Position: [facility] Physician - Primary Care Member Role: Lifetime Consulting Physician Address: Address: [address] [place] [address] [facility] [place] - Name: Isadora Godfrey RN Position: [facility] RN Member Role: Primary Care Nurse Name: Rossy Rowe RN Position: [facility] SN RN Member Role: Primary Care Nurse Name: Cindi Hayward RN Position: [facility] RN Member Role: Primary Care Nurse Name: Bela Mcmahon RN Position: [facility] Hospital Retinal Angiographer Member Role: Primary Care Nurse Name: Nicole Hernandez RN Position: [facility] RN Member Role: Primary Care Nurse Name: Zac Castillo RN Position: [facility] ED RN W/OE and Tasks Member Role: Primary Care Nurse Name: Jeanne Grande RN Position: [facility] RN Member Role: Primary Care Nurse Care Team Related Persons Name: TURNERBEAR Address: home [address] [place] [address] Name: BERA TURNER SECONDARY Address: home [address] [place] [address] Name: ISATU ECKERT Address: [place] [address] Name: ISAAC VERDE PRIMARY Address: home [address] [place] [address] Name: ADRY DURANT Name: PANCHO JEROME Address: [place] [address]
--- OUTSIDE RECORDS SUMMARY | 2024-04-27 10:16 | XMS_ITS | Continuity of Care Document ---
Author Organization [facility] Address [address] [place] [address]- Care Team Providers Care Boring Mill Set Up Operator Name Role Phone Sisi Hernandez MD Primary Care Physician Encounter [facility] [place] Date(s): 09/10/23 - 10/10/23 [facility] [address] [place], [place] [address] Allergies, Adverse Reactions, Alerts Substance [...] Refills, Maintenance, 12/21/22 14:40:00 EDT, ER Capsule, [facility], Partial fill upon patient request if the prescription is for a schedule II opioid drug., 155, cm, 12/05/22 11:... Start Date: 12/21/22 Status: Ordered albuterol CFC free 90 mcg/inh inhalation aerosol 2, puffs, Inhalation, Every 6 hours, PRN, # 2 each, Refills 11, Tot. Refills 11, Maintenance, 02/15/22 13:12:00 EDT, Aerosol, Route to Pharmacy Electronically, [id number], [facility], ONLY ALBUTEROL HFA, CANCEL... Start Date: 02/15/22 Stop Date: 02/10/23 Status: Ordered Colace sodium 100 mg oral capsule 100 mg, 1, capsule, By Mouth, 2 times a day, PRN, # 180 capsule, Refills 3, Tot. Refills 3, Maintenance, for constipation, 08/09/23 14:49:00 EST, Route to Pharmacy Electronically, [facility], Partial fill upon patient request if [...] 6 Refills, Maintenance, 08/07/23 13:45:00 EST, Solution, [facility], 155, cm, 06/07/23 [...] 0 Refills, Maintenance, 02/15/22 13:10:00 EDT, Aerosol, [facility], new dosage, 155, [...] 07/31/22 11:03:00 EST, Route to Pharmacy Electronically, [facility] 3, Partial fill upon patient request if the prescription is for a schedule... Start Date: 07/31/22 Status: Ordered LORazepam 0.5 mg oral tablet See Instructions, TAKE 1 TABLET BY MOUTH TWO TIMES A DAY NEEDED FOR ANXIETY, # 28 tablet, 2 Refills, Maintenance, 12/05/22 12:25:00 EDT, [facility] 3, 155, cm, 12/05/22 11:40:00 EDT, Height, [...] Refills, Maintenance, 08/01/22 6:06:00 EST, Tablet, [facility] 3, Partial fill upon patient request if the prescription is for a schedule II opioid drug., 155, cm,... Start Date: 08/01/22 Status: Ordered Symbicort 160mcg/4.5mcg Inhaler 2, puffs, Inhalation, 2 times a day, # 3 each, Refills 5, Tot. Refills 5, Maintenance, 09/27/22 12:00:00 EST, Aerosol, Route to Pharmacy Electronically, [id number], [facility], replaces flovent inhaler, 155, cm,... [...] 07/31/22 11:03:00 EST, Route to Pharmacy Electronically, [facility] 3, Partial fill upon patient request [...] Refills, Maintenance, 08/14/23 13:38:00 EST, Chew Tablet, [facility] 3, Partial fill upon patient request if the prescription is for a schedule II opioid drug., 155, cm, 08/14/23 13:0... Start Date: 08/14/23 Status: Ordered Vitamin D3 50,000 intl units oral capsule 1 capsule = 1,250 mcg, By Mouth, Every week, # 13 capsule, 1 Refills, Maintenance, 05/17/23 17:07:00 EDT, Capsule, [facility] 3, Partial fill upon patient request [...] Bilateral leg pain Confirmed Active *BHN/CCA/CC-Matias Dixongins- [phone]/Health half-way, active care coordination Confirmed Active POTS (postural orthostatic tachycardia syndrome) Confirmed Active Medulloblastoma Confirmed Active RUQ pain Confirmed Active Tachy-sharmin syndrome Confirmed Active Social History Social History Type Response Smoking Status Never smoker; Tobacc o user in household: No entered on: 04/11/16 Sex Patient Care team information Care Team Personnel Name: Vidhya Grace RN Position: [facility] RN Member Role: Primary Care Nurse Name: iSsi Hernandez MD Position: [facility] Physician - Primary Care Member Role: PCP Address: Address: [address] [place] [address] Name: Lizzette To RN Position: [facility] SN RN Member Role: Primary Care Nurse Name: Karolina Adkins MD Position: [facility] Physician - Primary Care Member Role: Lifetime Consulting Physician Address: Address: [address] [place] [address] [facility] [address] Name: Isadora Godfrey RN Position: [facility] RN Member Role: Primary Care Nurse Name: Rossy Rowe RN Position: [facility] SN RN Member Role: Primary Care Nurse Name: Cindi Hayward RN Position: [facility] RN Member Role: Primary Care Nurse Name: Bela Mcmahon RN Position: [facility] Hospital Area Mechanic Member Role: Primary Care Nurse Name: Nicole Hernandez RN Position: [facility] RN Member Role: Primary Care Nurse Name: Zac Castillo RN Position: [facility] ED RN W/OE and Tasks Member Role: Primary Care Nurse Name: Harjinder MONTELONGO, Jeanne Baker Position: [facility] RN Member Role: Primary Care Nurse Care Team Related Persons Name: BEAR TURNER Address: home [address] [place] [address] Name: BEAR TURNER SECONDARY Address: [address] Name: ISATU ECKERT Address: [place] [address] Name: ISAAC VERDE PRIMARY Address: [address] [address] Name: ADRY DURANT Name: PANCHO J[place]OME Address: [place] [address]
--- OUTSIDE RECORDS SUMMARY | 2024-04-27 10:16 | XMS_ITS | Continuity of Care Document ---
Author Organization [facility] Address [address] [place] [address]- Care Team Providers Care Clothing Sales Assistant Name Role Phone Sisi Hernandez MD Primary Care Physician [phone] [place] [facility] [place] - 11/02/22 [facility] [address] [address]- Attending Physician: Nita Castillo MD Admitting Physician: [...] 13:12:00 EDT, Aerosol, Route to Pharmacy Electronically, [id number], [facility], ONLY ALBUTEROL HFA, CANCEL... Start Date: 02/15/22 Stop Date: 02/10/23 Status: Ordered Colace sodium 100 mg oral capsule 100 mg, 1, capsule, By Mouth, 2 times a day, PRN, # 30 capsule, Refills 0, Tot. Refills 0, Maintenance, for constipation, 07/31/22 11:03:00 EST, Route to Pharmacy Electronically, [facility], Partial fill upon patient request [...] 6 Refills, Maintenance, 09/04/22 8:50:00 EST, Solution, [facility], 155, cm, 08/14/22 13:52:00 EST, Height, 68.1, kg, 08/14/22 13:52:00 EST, Dry Weight Start Date: 09/04/22 Status: Ordered dextroamphetamine 10 mg oral capsule, extended release See Instructions, start 1 capsule By Mouth Daily in AM. Take second capsule if needed, # 60 capsule, 0 Refills, Maintenance, 10/17/22 14:31:00 EDT, ER Capsule, [facility], Partial fill upon patient [...] 0 Refills, Maintenance, 02/15/22 13:10:00 EDT, Aerosol, [facility], new dosage, 155, cm, [...] 07/31/22 11:03:00 EST, Route to Pharmacy Electronically, [facility], Partial fill upon patient request if the prescription is for a schedule... Start Date: 07/31/22 Status: Ordered LORazepam 0.5 mg oral tablet See Instructions, TAKE 1 TABLET BY MOUTH TWO TIMES A DAY NEEDED FOR ANXIETY, # 28 tablet, 2 Refills, Maintenance, 06/06/22 10:45:00 EST, [facility] 3, 155, cm, 04/06/22 14:56:00 [...] Refills, Maintenance, 08/01/22 6:06:00 EST, REC Powder, [facility] 3, Partial fill upon patient request [...] 0 Refills, Maintenance, 08/01/22 6:06:00 EST, Tablet, [facility] 3, Partial fill upon patient request if the prescription is for a schedule II opioid drug., 155, cm,... Start Date: 08/01/22 Status: Ordered Symbicort 160mcg/4.5mcg Inhaler 2, puffs, Inhalation, 2 times a day, # 3 each, Refills 5, Tot. Refills 5, Maintenance, 09/27/22 12:00:00 EST, Aerosol, Route to Pharmacy Electronically, [id number], [facility], replaces flovent inhaler, 155, [...] 07/31/22 11:03:00 EST, Route to Pharmacy Electronically, [facility], Partial fill upon patient request [...] 3 Refills, Maintenance, 06/05/22 14:27:00 EST, Capsule, [facility] 3, Partial fill upon patient request [...] Bilateral leg pain Confirmed Active *BHN/CCA/CC-Matias Vela- [phone]/Health fdc, active care coordination Confirmed Active POTS (postural orthostatic tachycardia syndrome) Confirmed Active Medulloblastoma Confirmed Active RUQ pain Confirmed Active Social History Social History Type Response Smoking Status Never smoker; Tobacc o user in household: No entered on: 04/11/16 Sex Patient Care team information Care Team Personnel Name: Vidhya Grace RN Position: [facility] RN Member Role: Primary Care Nurse Name: Sisi Hernandez MD Position: [facility] Primary Care Physician Member Role: PCP Address: Address: [address] [place] [address] Name: Lizzette To RN Position: [facility] RN Member Role: Primary Care Nurse Name: Karolina Adkins MD Position: [facility] Physician -Physician Practices Member Role: Lifetime Consulting Physician Address: Address: [address] [place] [address] [facility] [address] Name: Isadora Godfrey RN Position: [facility] RN Member Role: Primary Care Nurse Name: Rossy Rowe RN Position: [facility] SN RN Member Role: Primary Care Nurse Name: Cindi Hayward Position: [facility] RN Member Role: Primary Care Nurse Name: Bela Mcmahon RN Position: [facility] Hospital Van Owner Operator Member Role: Primary Care Nurse Name: Nicole Hernandez RN Position: [facility] RN Member Role: Primary Care Nurse Name: Zac Castillo RN Position: [facility] ED RN W/OE and Tasks Member Role: Primary Care Nurse Name: Jeanne Grande RN Position: [facility] RN Member Role: Primary Care Nurse Care Team Related Persons Name: BEAR TURNER Address: [address] [place] [address] Name: BEAR TURNER SECONDARY Address: home [address] [place], [place] Name: ISATU ECKERT Address: [place] [address] Name: ISAAC VERDE PRIMARY Address: [address] Name: ADRY DURANT Name: PANCHO JEROME Address: [place] [address]
--- OUTSIDE RECORDS SUMMARY | 2024-04-27 10:16 | XMS_ITS | Continuity of Care Document ---
Author Organization [facility] Address [address] [place] [address]- Care Team Providers Care Animal Assistant Name Role Phone Sisi Hernandez MD Primary [id number] - 04/14/[address] [address] Attending Physician: Sisi Hernandez MD Admitting Physician: [...] 8:50:00 EDT, Aerosol, Route to Pharmacy Electronically, [id number], [facility], 155, cm, 06/03/20 [...] Maintenance, 06/15/20 11:56:00 EST, Solution, [facility] 3, 155, cm, 06/03/20 13:15:00 EST, Height, 68.5, kg, 06/03/20 13:18:00 EST, Dry Weight Start Date: 06/15/20 Status: Ordered dilTIAZem 240 mg/24 hours oral tablet, extended release 1 tablet = 240 mg, By Mouth, Daily, FURTHER REFILLS BY FARM TECHNICIAN, # 90 tablet, 0 Refills, Maintenance, 11/27/19 8:57:00 EDT, ER Tablet, [facility], 155, cm, 10/07/19 12:25:00 EDT, [...] tablet, 2 Refills, Maintenance, 05/06/20 15:17:00 EDT, [facility], 155, [...] 15:30:53 EST, Aerosol, Route to Pharmacy Electronically, [id number]... Start Date: 09/12/18 Stop Date: 02/09/19 Status: Ordered ProAir HFA 90 mcg/inh inhalation aerosol with adapter 2, puffs, Inhalation, Every 4 hours, PRN, use with spacer chamber BRAND NAME MEDICALLY NECESSARY, #8.5 Gm, Refills 0, Tot. Refills 0, Maintenance, 12/05/20 15:38:00 EDT, Aerosol, Route to Pharmacy Electronically, [id number]... Start Date: 12/05/20 Status: Ordered syringe and [...] 2 Refills, Maintenance, 08/04/20 12:39:00 EST, Capsule, [facility], Partial fill [...] Active Bilateral leg pain(Confirmed) Active *BHN/CCA/CC-Matias Vela- [phone]/Health nursing home, active care coordination(Confirmed) Active POTS (postural orthostatic t achycardia syndrome)(Confirmed) Active Medulloblastoma(Confirmed) Active RUQ pain(Confirmed) Active Viral URI(Confirmed) Active Social History Social History Type Response Smoking Status Never smoker; Tobacc o user in household: No entered on: 04/11/16 Sex
--- OUTSIDE RECORDS SUMMARY | 2024-04-27 10:16 | XMS_ITS | Continuity of Care Document ---
Author Organization [facility] Address [address], [address] [place] [address]- Care Team Providers Care Farm Advisor Name Role Phone Sisi Hernandez MD Primary Care Physician En[facility] Date(s): 09/11/21 [facility] [address] [place], [place] [address] Allergies, Adverse Reactions, Alerts Substance Reaction [...] 0 Refills, Maintenance, 09/27/21 15:38:00 EST, Tablet, [facility], Partial [...] Refills, Maintenance, 09/27/21 15:31:00 EST, ER Capsule, [facility], Partial fill upon patient r... Start Date: 09/27/21 Status: Ordered albuterol CFC free 90 mcg/inh inhalation aerosol 2, puffs, Inhalation, Every 6 hours, PRN, # 2 each, Refills 11, Tot. Refills 11, Maintenance, 10/05/21 9:52:00 EST, Aerosol, Route to Pharmacy Electronically, [id number], [facility], ONLY ALBUTEROL HFA, CANCEL [...] 6 Refills, Maintenance, 10/03/21 12:18:00 EST, Solution, [facility] 3, 155, cm, 09/27/21 15:08:00 EST, Height, 68.5, kg, 06/03/20 13:18:00 EST, Dry Weight Start Date: 10/03/21 Status: Ordered cyanocobalamin 1000 mcg/ml injectable solution 1 mL = 1,000 mcg, Intramuscular, Every 30 days, # 3 mL, 6 Refills, Maintenance, 06/15/20 11:56:00 EST, Solution, [facility] 3, 155, cm, 06/03/20 13:15:00 EST, Height, 68.5, kg, 06/03/20 13:18:00 EST, Dry Weight Start Date: 06/15/20 Status: Ordered Diflucan 150 mg oral tablet 1 tablet = 150 mg, By Mouth, Every 48 hours, # 2 tablet, 0 Refills, Soft Stop, 07/31/21 10:46:00 EST, Tablet, [facility], Partial fill upon patient request if the prescription is for a schedule II opioid drug., 155, cm, 06/09/21 14:21:00... Start Date: 07/31/21 Status: Ordered dilTIAZem 240 mg/24 hours oral tablet, extended release 1 tablet = 240 mg, By Mouth, Daily, FURTHER REFILLS BY CUSTODIAL WORKER, # 90 tablet, 0 Refills, Maintenance, 11/27/19 8:57:00 EDT, ER Tablet, [facility], 155, cm, 10/07/19 12:25:00 EDT, Height, 63, kg, 07/01/19 19:58:00 EST, Dry Weight Start Date: 11/27/19 Status: Ordered Flovent HFA 110 mcg/inh inhalation aerosol 2 puffs, Inhalation, 2 times a day, # 12 Gm, 0 Refills, Maintenance, 10/05/21 13:23:00 EST, Aerosol, [facility], Partial fill upon [...] tablet, 2 Refills, Maintenance, 05/06/20 15:17:00 EDT, [facility] 3, 155, cm, 05/03/20 18:55:00 [...] 2 Refills, Maintenance, 08/04/20 12:39:00 EST, Capsule, [facility], Partial fill [...] Active Bilateral leg pain(Confirmed) Active *BHN/CCA/CC-Matias Vela- [phone]/Health fci, active care coordination(Confirmed) Active POTS (postural orthostatic t achycardia syndrome)(Confirmed) Active Medulloblastoma(Confirmed) Active RUQ pain(Confirmed) Active Social History Social History Type Response Smoking Status Never smoker; Tobacc o user in household: No entered on: 04/11/16 Sex Female
--- OUTSIDE RECORDS SUMMARY | 2024-04-27 10:16 | XMS_ITS | Continuity of Care Document ---
Author Organization [facility] Address [address] [place] [address]- Care Team Providers Care Tow Truck Dispatcher Name Role Phone Sisi Hernandez MD Primary Care Physician [place] [facility] [place]21 - 11/02/21 [facility] [address] [place], [place] [address] Allergies, Adverse Reactions, Alerts Substance Reaction [...] 0 Refills, Maintenance, 10/25/21 15:46:00 EDT, Tablet, [facility], Partial fill upon patient [...] Refills, Maintenance, 10/25/21 15:46:00 EDT, ER Capsule, [facility], Partial fill upon patient r... Start Date: 10/25/21 Status: Ordered albuterol CFC free 90 mcg/inh inhalation aerosol 2, puffs, Inhalation, Every 6 hours, PRN, # 2 each, Refills 11, Tot. Refills 11, Maintenance, 10/05/21 9:52:00 EST, Aerosol, Route to Pharmacy Electronically, [id number], [facility], ONLY ALBUTEROL HFA, CANCEL V... Start [...] 6 Refills, Maintenance, 06/15/20 11:56:00 EST, Solution, [facility] 3, 155, cm, 06/03/20 13:15:00 EST, Height, 68.5, kg, 06/03/20 13:18:00 EST, Dry Weight Start Date: 06/15/20 Status: Ordered dilTIAZem 240 mg/24 hours oral tablet, extended release 1 tablet = 240 mg, By Mouth, Daily, FURTHER REFILLS BY MRI ASSISTANT, # 90 tablet, 0 Refills, Maintenance, 11/27/19 8:57:00 EDT, ER Tablet, [facility], 155, cm, 10/07/19 12:25:00 EDT, Height, 63, kg, 07/01/19 19:58:00 EST, Dry Weight Start Date: 11/27/19 Status: Ordered Flovent HFA 110 mcg/inh inhalation aerosol 2 puffs, Inhalation, 2 times a day, # 12 Gm, 0 Refills, Maintenance, 10/05/21 13:23:00 EST, Aerosol, [facility], Partial fill upon patient [...] tablet, 2 Refills, Maintenance, 05/06/20 15:17:00 EDT, [facility], 155, cm, 05/03/20 [...] 3 Refills, Maintenance, 10/25/21 11:13:00 EDT, Capsule, [facility], Partial fill upon patient [...] Active Bilateral leg pain(Confirmed) Active *BHN/CCA/CC-Matias Vela- [phone]/Health residential, active care coordination(Confirmed) Active POTS (postural orthostatic t achycardia syndrome)(Confirmed) Active Medulloblastoma(Confirmed) Active RUQ pain(Confirmed) Active Social History Social History Type Response Smoking Status Never smoker; Tobacc o user in household: No entered on: 04/11/16 Sex Female
--- OUTSIDE RECORDS SUMMARY | 2024-04-27 10:16 | XMS_ITS | Continuity of Care Document ---
Author Organization [facility] Address [address] [place] [address]- Care Team Providers Care Litigation Support Analyst Name Role Phone Sisi Hernandez MD Primary Care Physician [phone] [id number] Date(s[facility] 10/05/21 - 12/06/21 [facility] [address] [place], [place] [address] Attending Physician: Not on Staff, Attending [...] 23:51:00 EDT, Route to Pharmacy Electronically, [facility], Partial fill upon patient request if the presc... Start Date: 11/16/21 Status: Ordered Adderall 5 mg oral tablet 1 tablet = 5 mg, By Mouth, 2 times a day, to take with long acting, # 60 tablet, 0 Refills, Maintenance, 10/25/21 15:46:00 EDT, Tablet, [facility], Partial [...] 10/25/21 15:46:00 EDT, ER Capsule, [facility], Partial fill upon patient r... Start Date: 10/25/21 Status: Ordered albuterol CFC free 90 mcg/inh inhalation aerosol 2, puffs, Inhalation, Every 6 hours, PRN, # 2 each, Refills 11, Tot. Refills 11, Maintenance, 10/05/21 9:52:00 EST, Aerosol, Route to Pharmacy Electronically, [id number], [facility], ONLY ALBUTEROL HFA, CANCEL V... [...] 6 Refills, Maintenance, 10/03/21 12:18:00 EST, Solution, [facility], 155, cm, 09/27/21 15:08:00 EST, [...] mg, By Mouth, Daily, FURTHER REFILLS BY TELEVISION ANNOUNCER, # 90 tablet, 0 Refills, Maintenance, 11/27/19 8:57:00 EDT, ER Tablet, [facility], 155, cm, 10/07/19 12:25:00 EDT, Height, 63, kg, 07/01/19 19:58:00 EST, Dry Weight Start Date: 11/27/19 Status: Ordered Flovent HFA 110 mcg/inh inhalation aerosol 2 puffs, Inhalation, 2 times a day, # 12 Gm, 0 Refills, Maintenance, 10/05/21 13:23:00 EST, Aerosol, [facility] 3, Partial fill [...] 23:51:00 EDT, Route to Pharmacy Electronically, [facility], Partial fill upon patient request if the prescription is... Start Date: 11/16/21 Status: Ordered LORazepam 0.5 mg oral tablet See Instructions, TAKE 1 TABLET BY MOUTH TWO TIMES A DAY NEEDED FOR ANXIETY, # 28 tablet, 2 Refills, Maintenance, 05/06/20 15:17:00 EDT, [facility] 3, 155, cm, 05/03/20 18:55:00 EDT, [...] Maintenance, 11/16/21 23:51:00 EDT, DIS Tablet, [facility], Partial [...] Maintenance, 10/25/21 11:13:00 EDT, Capsule, [facility], Partial fill upon patient request [...] Active Bilateral leg pain(Confirmed) Active *BHN/CCA/CC-Matias Vela- [phone]/Health correction, active care coordination(Confirmed) Active POTS (postural orthostatic t achycardia syndrome)(Confirmed) Active Medulloblastoma(Confirmed) Active RUQ pain(Confirmed) Active Social History Social History Type Response Smoking Status Never smoker; Tobacc o user in household: No entered on: 04/11/16 Sex Female
--- OUTSIDE RECORDS SUMMARY | 2024-04-27 10:16 | XMS_ITS | Continuity of Care Document ---
Author Organization [facility] Address [address], [address] [place] [address]- Care Team Providers Care Medical Library Assistant Name Role Phone Sisi Hernandez MD Primary Care Physician [place] [facility] [place] 07/30/23 - 08/29/23 [facility] [address] [place], [place] [address] Attending Physician: AdmAngel can Admitting Physician: AdmtrAngle Referring Physician: Admtr ArAndrea Allergies, Adverse Reactions, Alerts Substance Reaction Severity [...] Refills, Maintenance, 12/21/22 14:40:00 EDT, ER Capsule, [facility], Partial fill upon patient request if the prescription is for a schedule II opioid drug., 155, cm, 12/05/22 11:... Start Date: 12/21/22 Status: Ordered albuterol CFC free 90 mcg/inh inhalation aerosol 2, puffs, Inhalation, Every 6 hours, PRN, # 2 each, Refills 11, Tot. Refills 11, Maintenance, 02/15/22 13:12:00 EDT, Aerosol, Route to Pharmacy Electronically, [id number], [facility], ONLY ALBUTEROL HFA, CANCEL... Start Date: 02/15/22 Stop Date: 02/10/23 Status: Ordered Colace sodium 100 mg oral capsule 100 mg, 1, capsule, By Mouth, 2 times a day, PRN, # 180 capsule, Refills 3, Tot. Refills 3, Maintenance, for constipation, 08/09/23 14:49:00 EST, [facility]ically, [facility] 6 Refills, Maintenance, 08/07/23 13:45:00 EST, Solution, [facility], 155, cm, 06/07/23 20:58:00 [...] tablet, 2 Refills, Maintenance, 12/05/22 12:25:00 EDT, [facility], 155, [...] 0 Refills, Maintenance, 08/01/22 6:06:00 EST, Tablet, [facility], Partial fill upon patient request if the prescription is for a schedule II opioid drug., 155, cm,... Start Date: 08/01/22 Status: Ordered Symbicort 160mcg/4.5mcg Inhaler 2, puffs, Inhalation, 2 times a day, # 3 each, Refills 5, Tot. Refills 5, Maintenance, 09/27/22 12:00:00 EST, Aerosol, Route to Pharmacy Electronically, [id number], [facility], replaces flovent inhaler, 155, cm,... [...] Refills, Maintenance, 08/14/23 13:38:00 EST, Chew Tablet, [facility], Partial fill upon patient request if the prescription is for a schedule II opioid drug., 155, cm, 08/14/23 13:0... Start Date: 08/14/23 Status: Ordered Vitamin D3 50,000 intl units oral capsule 1 capsule = 1,250 mcg, By Mouth, Every week, # 13 capsule, 1 Refills, Maintenance, 05/17/23 17:07:00 EDT, Capsule, [facility], Partial fill upon patient request if [...] Bilateral leg pain Confirmed Active *BHN/CCA/CC-Matias Vela- [phone]/Health residential, active care coordination Confirmed Active POTS [...] Primary Care Member Role: PCP Address: Address: [address] [place] [address] [facility] Name: Lizzette To RN Position: [facility] SN RN Member Role: Primary Care Nurse Name: Karolina Adkins MD Position: [facility] Physician - Primary Care Member Role: Lifetime Consulting Physician Address: Address: [address] [place] [address] [facility] [place] [facility] Name: Isadora Godfrey RN Position: [facility] RN Member Role: Primary Care Nurse Name: Rossy Rowe RN Position: [facility] SN RN Member Role: Primary Care Nurse Name: Cindi Hayward RN Position: [facility] RN Member Role: Primary Care Nurse Name: Bela Mcmahon RN Position: [facility] Hospital Rn Observation Member Role: Primary Care Nurse Name: Nicole [...] Persons Name: BEAR TURNER Address: home [address] [place], [place] Name: BEAR TURNER SECONDARY Address: home [address] [place] [address] Name: ISATU ECKERT Address: home [place], [place] Name: ISAAC VERDE PRIMARY Address: home [address] [place] [address] Name: ADRY DURANT Name: PANCHO JEROME Address: [place] [address]
--- OUTSIDE RECORDS SUMMARY | 2024-04-27 10:16 | XMS_ITS | Continuity of Care Document ---
Author Organization [facility] Address [address], [address] [place] [address]- Care Team Providers Care Bridge Leverman Name Role Phone Sisi Hernandez MD Primary Care Physician [phone] Encounter [facility] Date(s): 06/12/23 - 07/12/23 [facility] [address], [address] [place], [place] [address] Allergies, Adverse Reactions, Alerts [...] Refills, Maintenance, 12/21/22 14:40:00 EDT, ER Capsule, [facility], Partial fill upon patient request if the prescription is for a schedule II opioid drug., 155, cm, 12/05/22 11:... Start Date: 12/21/22 Status: Ordered albuterol CFC free 90 mcg/inh inhalation aerosol 2, puffs, Inhalation, Every 6 hours, PRN, # 2 each, Refills 11, Tot. Refills 11, Maintenance, 02/15/22 13:12:00 EDT, Aerosol, Route to Pharmacy Electronically, [id number], [facility], ONLY ALBUTEROL HFA, CANCEL... Start Date: 02/15/22 Stop Date: 02/10/23 Status: Ordered Colace sodium 100 mg oral capsule 100 mg, 1, capsule, By Mouth, 2 times a day, PRN, # 30 capsule, Refills 0, Tot. Refills 0, Maintenance, for constipation, 07/31/22 11:03:00 EST, Route to Pharmacy Electronically, [facility], Partial fill upon patient [...] 6 Refills, Maintenance, 09/04/22 8:50:00 EST, Solution, [facility], 155, cm, 08/14/22 13:52:00 EST, [...] 0 Refills, Maintenance, 02/15/22 13:10:00 EDT, Aerosol, [facility], new dosage, 155, [...] 07/31/22 11:03:00 EST, Route to Pharmacy Electronically, [facility], Partial fill upon patient request if the prescription is for a schedule... Start Date: 07/31/22 Status: Ordered LORazepam 0.5 mg oral tablet See Instructions, TAKE 1 TABLET BY MOUTH TWO TIMES A DAY NEEDED FOR ANXIETY, # 28 tablet, 2 Refills, Maintenance, 12/05/22 12:25:00 EDT, [facility], 155, cm, 12/05/22 [...] 0 Refills, Maintenance, 08/01/22 6:06:00 EST, Tablet, [facility], Partial fill upon patient request if the prescription is for a schedule II opioid drug., 155, cm,... Start Date: 08/01/22 Status: Ordered Symbicort 160mcg/4.5mcg Inhaler 2, puffs, Inhalation, 2 times a day, # 3 each, Refills 5, Tot. Refills 5, Maintenance, 09/27/22 12:00:00 EST, Aerosol, Route to Pharmacy Electronically, [id number], [facility], replaces flovent inhaler, 155, cm,... [...] 07/31/22 11:03:00 EST, Route to Pharmacy Electronically, [facility], Partial fill upon patient request if the prescription is... Start Date: 07/31/22 Status: Ordered verapamil 240 mg/12 hours oral tablet, extended release TAKE 1 TABLET BY MOUTH DAILY. Start Date: 02/05/23 Status: Ordered Vitamin D3 50,000 intl units oral capsule 1 capsule = 1,250 mcg, By Mouth, Every week, # 13 capsule, 1 Refills, Maintenance, 05/17/23 17:07:00 EDT, Capsule, [facility], Partial fill upon [...] Bilateral leg pain Confirmed Active *BHN/CCA/CC-Matias Vela- [phone]/Health penitentiary, active care coordination Confirmed Active POTS (postural [...] Primary Care Member Role: PCP Address: Address: [address] [place] [address]- [place] Name: Lizzette To RN Position: [facility] SN RN Member Role: Primary Care Nurse Name: Karolina Adkins MD Position: [facility] Physician - Primary Care Member Role: Lifetime Consulting Physician Address: Address: [address] [place] [address] [facility] Care [place], [place] - Name: Isadora Godfrey RN Position: [facility] RN Member Role: Primary Care Nurse Name: Rossy Rowe RN Position: [facility] SN RN Member Role: Primary Care Nurse Name: Cindi Hayward RN Position: [facility] RN Member Role: Primary Care Nurse Name: Bela Mcmahon RN Position: [facility] Hospital Roller Pneumatic Member Role: Primary Care Nurse Name: Nicole Hernandez RN Position: [facility] RN Member Role: Primary Care Nurse Name: Zac Castillo RN Position: [facility] ED RN W/OE and Tasks Member Role: Primary Care Nurse Name: eJanne Grande RN Position: [facility] RN Member Role: Primary Care Nurse Care Team Related Persons Name: BEAR TURNER Address: home [address] [place] [address] Name: BEAR TURNER SECONDARY Address: home [address] [place] [address] Name: ISATU ECKERT Address: [place] [address] Name: ISAAC VERDE PRIMARY Address: home [address] [place] [address] Name: ADRY DURANT Name: PANCHO JEROME Address: [place] [address]
--- OUTSIDE RECORDS SUMMARY | 2024-04-27 10:16 | XMS_ITS | Continuity of Care Document ---
Author Organization [facility] Address [address] [place] [address]- Care Team Providers Care Plant Puller Name Role Phone Sisi Hernandez MD Primary Care Physician [place] [facility] [place] 06/22/21 [facility] [address] [place], [place] [address] Attending Physician: Not on Staff, [...] Adderall, # 90 tablet, 0 Refills, Maintenance, 06/09/21 14:32:00 EST, Tablet, [facility] Start Date: 06/09/21 Status: Ordered Adderall XR 10 mg oral capsule, extended release 1 capsule = 10 mg, By Mouth, Daily in AM, to take with short acting, # 30 capsule, 0 Refills, Maintenance, 06/09/21 14:31:00 EST, ER Capsule, [facility], Partial fill upon patient request if the prescription is for a schedule II opioid d... Start Date: 06/09/21 Status: Ordered albuterol CFC free 90 mcg/inh inhalation aerosol 2, puffs, Inhalation, Every 6 hours, PRN, # 2 each, Refills 11, Tot. Refills 11, Maintenance, 12/02/20 8:50:00 EDT, Aerosol, Route to Pharmacy Electronically, [id number], [facility], 155, cm, 06/03/20 13:15:00 [...] 6 Refills, Maintenance, 06/15/20 11:56:00 EST, Solution, [facility], 155, cm, 06/03/20 13:15:00 EST, Height, 68.5, kg, 06/03/20 13:18:00 EST, Dry Weight Start Date: 06/15/20 Status: Ordered dilTIAZem 240 mg/24 hours oral tablet, extended release 1 tablet = 240 mg, By Mouth, Daily, FURTHER REFILLS BY CLOTHING EXAMINER, # 90 tablet, 0 Refills, Maintenance, 11/27/19 8:57:00 EDT, ER Tablet, [facility], 155, cm, 10/07/19 12:25:00 [...] tablet, 2 Refills, Maintenance, 05/06/20 15:17:00 EDT, [facility], 155, cm, 05/03/20 18:55:00 EDT, [...] 15:30:53 EST, Aerosol, Route to Pharmacy Electronically, [id number]... Start Date: 09/12/18 Stop Date: 02/09/19 Status: Ordered ProAir HFA 90 mcg/inh inhalation aerosol with adapter 2, puffs, Inhalation, Every 4 hours, PRN, use with spacer chamber BRAND NAME MEDICALLY NECESSARY, #8.5 Gm, Refills 0, Tot. Refills 0, Maintenance, 12/05/20 15:38:00 EDT, Aerosol, Route to Pharmacy Electronically, [id number]... Start Date: 12/05/20 Status: Ordered Sunosi 75 [...] Maintenance, 08/04/20 12:39:00 EST, Capsule, [facility], Partial fill upon patient request [...] Active Bilateral leg pain(Confirmed) Active *BHN/CCA/CC-Matias Vela- [phone]/Health assisted, active care coordination(Confirmed) Active POTS (postural orthostatic t achycardia syndrome)(Confirmed) Active Medulloblastoma(Confirmed) Active RUQ pain(Confirmed) Active Viral URI(Confirmed) Active Social History Social History Type Response Smoking Status Never smoker; Tobacc o user in household: No entered on: 04/11/16 Sex
--- OUTSIDE RECORDS SUMMARY | 2024-04-27 10:16 | XMS_ITS | Continuity of Care Document ---
Author Organization [facility] Address [address] [place] [address]- Care Team Providers Care Class C Truck Driver Name Role Phone Mary KEATING, Sisi Almanza Primary Care Physician Encounter [facility] Date(s): 06/26/22 - 07/26/22 [facility] [address] [place], [place] [address] Allergies, Adverse Reactions, Alerts [...] 23:51:00 EDT, Route to Pharmacy Electronically, [facility], Partial fill upon [...] 13:12:00 EDT, Aerosol, Route to Pharmacy Electronically, [id number], [facility], ONLY ALBUTEROL HFA, [...] Refills, Maintenance, 06/06/22 12:08:00 EST, Solution, [facility], 155, cm, 04/06/22 14:56:00 EDT, [...] Refills, Maintenance, 02/15/22 13:10:00 EDT, Aerosol, [facility], new dosage, 155, [...] 23:51:00 EDT, Route to Pharmacy Electronically, [facility], Partial fill upon patient request if the prescription is... Start Date: 11/16/21 Status: Ordered LORazepam 0.5 mg oral tablet See Instructions, TAKE 1 TABLET BY MOUTH TWO TIMES A DAY NEEDED FOR ANXIETY, # 28 tablet, 2 Refills, Maintenance, 06/06/22 10:45:00 EST, [facility], 155, cm, [...] Refills, Maintenance, 06/05/22 14:27:00 EST, Capsule, [facility] 3, Partial fill upon [...] Bilateral leg pain Confirmed Active *BHN/CCA/CC-Matias Vela- [phone]/Health shelter, active care coordination Confirmed Active POTS (postural orthostatic tachycardia syndrome) Confirmed Active Medulloblastoma Confirmed Active RUQ pain Confirmed Active Social History Social History Type Response Smoking Status Never smoker; Tobacc o user in household: No entered on: 04/11/16 Sex Female Patient Care team information Care Team Personnel Name: Vidhya Grace RN Position: [facility] RN Member Role: Primary Care Nurse Name: Sisi Hernandez MD Position: [facility] Primary Care Physician Member Role: PCP Address: Address: [address] [place] [address] - Name: Lizzette To RN Position: [facility] RN Member Role: Primary Care Nurse Name: Karolina Adkins MD Position: [facility] Physician -Physician Practices Member Role: Lifetime Consulting Physician Address: Address: [address] [place] [address] [facility] Care [place], [place] [facility] Name: Isadora Godfrey RN Position: [facility] RN Member Role: Primary Care Nurse Name: Rossy Rowe RN Position: [facility] SN RN Member Role: Primary Care Nurse Name: Bela Mcmahon RN Position: [facility] Hospital Content Checker Member Role: Primary Care Nurse Name: Nicole Hernandez RN Position: [facility] RN Member Role: Primary Care Nurse Name: Zac Castillo RN Position: [facility] ED RN W/OE and Tasks Member Role: Primary Care Nurse Name: Jeanne Grande RN Position: [facility] RN Member Role: Primary Care Nurse Care Team Related Persons Name: BEAR TURNER Address: home [address] [place], [place] Name: ISATU ECKERT Address: home [place], [place] Name: ISAAC VERDE Address: home [address] [place] [address] Name: ADRY DURANT Name: PANCHO JEROME Address: home [place], [place]
--- OUTSIDE RECORDS SUMMARY | 2024-04-27 10:16 | XMS_ITS | Continuity of Care Document ---
Author Organization [facility] Address [address] [place] [address]- Care Team Providers Care Casino Games Dealer Name Role Phone Mary KEATING, Sisi Almanza Primary Care Physician [phone] Encounter [facility] Date(s): 10/02/22 - 11/01/22 [facility] [address] [place], [place] [address] Allergies, Adverse Reactions, Alerts [...] 13:12:00 EDT, Aerosol, Route to Pharmacy Electronically, [id number], [facility], ONLY ALBUTEROL HFA, CANCEL... Start Date: 02/15/22 Stop Date: 02/10/23 Status: Ordered Colace sodium 100 mg oral capsule 100 mg, 1, capsule, By Mouth, 2 times a day, PRN, # 30 capsule, Refills 0, Tot. Refills 0, Maintenance, for constipation, 07/31/22 11:03:00 EST, Route to Pharmacy Electronically, [facility], Partial fill upon patient request [...] Refills, Maintenance, 09/04/22 8:50:00 EST, Solution, [facility], 155, cm, 08/14/22 13:52:00 EST, Height, 68.1, kg, 08/14/22 13:52:00 EST, Dry Weight Start Date: 09/04/22 Status: Ordered dextroamphetamine 10 mg oral capsule, extended release See Instructions, start 1 capsule By Mouth Daily in AM. Take second capsule if needed, # 60 capsule, 0 Refills, Maintenance, 10/17/22 14:31:00 EDT, ER Capsule, [facility], Partial fill upon [...] Refills, Maintenance, 02/15/22 13:10:00 EDT, Aerosol, [facility], new dosage, 155, [...] 11:03:00 EST, Route to Pharmacy Electronically, [facility], Partial fill upon patient request if the prescription is for a schedule... Start Date: 07/31/22 Status: Ordered LORazepam 0.5 mg oral tablet See Instructions, TAKE 1 TABLET BY MOUTH TWO TIMES A DAY NEEDED FOR ANXIETY, # 28 tablet, 2 Refills, Maintenance, 06/06/22 10:45:00 EST, [facility] 3, 155, cm, 04/06/22 14:56:00 EDT, [...] Refills, Maintenance, 08/01/22 6:06:00 EST, REC Powder, [facility] 3, Partial fill upon patient request [...] 08/01/22 6:06:00 EST, Tablet, [facility] 3, Partial fill upon patient request if the prescription is for a schedule II opioid drug., 155, cm,... Start Date: 08/01/22 Status: Ordered Symbicort 160mcg/4.5mcg Inhaler 2, puffs, Inhalation, 2 times a day, # 3 each, Refills 5, Tot. Refills 5, Maintenance, 09/27/22 12:00:00 EST, Aerosol, Route to Pharmacy Electronically, [id number], [facility], replaces flovent inhaler, 155, cm,... [...] 11:03:00 EST, Route to Pharmacy Electronically, [facility], Partial fill upon [...] Refills, Maintenance, 06/05/22 14:27:00 EST, Capsule, [facility] [facility], Partial fill upon patient request if [...] Bilateral leg pain Confirmed Active *BHN/CCA/CC-Matias Menas- [phone]/Health detention, active care coordination Confirmed Active POTS (postural orthostatic tachycardia syndrome) Confirmed Active Medulloblastoma Confirmed Active RUQ pain Confirmed Active Social History Social History Type Response Smoking Status Never smoker; Tobacc o user in household: No entered on: 04/11/16 Sex Patient Care team information Care Team Personnel Name: Vidhya Grace RN Position: [facility] RN Member Role: Primary Care Nurse Name: Sisi Hernandez MD Position: [facility] Primary Care Physician Member Role: PCP Address: Address: [address] [place] [id number] Name: Lizzette To RN Position: [facility] RN Member Role: Primary Care Nurse Name: Karolina Adkins MD Position: [facility] Physician -Physician Practices Member Role: Lifetime Consulting Physician Address: Address: [address] [place] [address] [facility]iative Care [place], [place] [address] Name: Isadora Godfrey RN Position: [facility] RN Member Role: Primary Care Nurse Name: Rossy Rowe RN Position: [facility] SN RN Member Role: Primary Care Nurse Name: Cindi Hayward Position: [facility] RN Member Role: Primary Care Nurse Name: Bela Mcmahon RN Position: [facility] Hospital Industrial X Ray Operator Member Role: Primary Care Nurse Name: Nicole Hernandez RN Position: [facility] RN Member Role: Primary Care Nurse Name: Zac Castillo RN Position: [facility] ED RN W/OE and Tasks Member Role: Primary Care Nurse Name: Jeanne Grande RN Position: [facility] RN Member Role: Primary Care Nurse Care Team Related Persons Name: KATHRYN TURNERY Address: home [address] [place], [place] Name: TURNERBEAR RIBERA SECONDARY Address: home [address] [place], [place] Name: ISATU ECKERT Address: [place] [address] Name: ISAAC VERDE PRIMARY Address: [address] [address] Name: ADRY DURANT Name: PANCHO JEROME Address: [place] [address]
--- OUTSIDE RECORDS SUMMARY | 2024-04-27 10:17 | XMS_ITS | Continuity of Care Document ---
Author Organization [facility] Address [address] [place] [address]- Care Team Providers Care Typesetters Printer Name Role Phone Sisi Hernandez MD Primary [id number] - 12/31/21 [facility] [address] [address] Attending Physician: Admtr, Angel Admitting Physician: [id number] Referring Physician: Admtr, Ar8 Allergies, Adverse Reactions, [...] 11/16/21 23:51:00 EDT, Route to Pharmacy Electronically, [facility] 3, Partial fill upon patient request if the presc... Start Date: 11/16/21 Status: Ordered Adderall 5 mg oral tablet 1 tablet = 5 mg, By Mouth, 2 times a day, to take with long acting, # 60 tablet, 0 Refills, Maintenance, 10/25/21 15:46:00 EDT, Tablet, [facility] 3, Partial fill upon patient [...] Refills, Maintenance, 10/25/21 15:46:00 EDT, ER Capsule, [facility] 3, Partial fill upon patient r... Start Date: 10/25/21 Status: Ordered albuterol CFC free 90 mcg/inh inhalation aerosol 2, puffs, Inhalation, Every 6 hours, PRN, # 2 each, Refills 11, Tot. Refills 11, Maintenance, 10/05/21 9:52:00 EST, Aerosol, Route to Pharmacy Electronically, [id number], [facility], ONLY ALBUTEROL HFA, CANCEL [...] 6 Refills, Maintenance, 10/03/21 12:18:00 EST, Solution, [facility] 3, 155, cm, 09/27/21 15:08:00 EST, Height, 68.5, kg, 06/03/20 13:18:00 EST, Dry Weight Start Date: 10/03/21 Status: Ordered cyanocobalamin 1000 mcg/ml injectable solution 1 mL = 1,000 mcg, Intramuscular, Every 30 days, # 3 mL, 6 Refills, Maintenance, 06/15/20 11:56:00 EST, Solution, [facility], 155, cm, 06/03/20 13:15:00 EST, Height, 68.5, kg, 06/03/20 13:18:00 EST, Dry Weight Start Date: 06/15/20 Status: Ordered dilTIAZem 240 mg/24 hours oral tablet, extended release 1 tablet = 240 mg, By Mouth, Daily, FURTHER REFILLS BY CUTTER WET MACHINE, # 90 tablet, 0 Refills, Maintenance, 11/27/19 8:57:00 EDT, ER Tablet, [facility], 155, cm, 10/07/19 12:25:00 EDT, Height, 63, kg, 07/01/19 19:58:00 EST, Dry Weight Start Date: 11/27/19 Status: Ordered Flovent HFA 110 mcg/inh inhalation aerosol 2 puffs, Inhalation, 2 times a day, # 12 Gm, 0 Refills, Maintenance, 10/05/21 13:23:00 EST, Aerosol, [facility] 3, Partial fill upon patient [...] 11/16/21 23:51:00 EDT, Route to Pharmacy Electronically, [facility], Partial fill upon patient request if the prescription is... Start Date: 11/16/21 Status: Ordered LORazepam 0.5 mg oral tablet See Instructions, TAKE 1 TABLET BY MOUTH TWO TIMES A DAY NEEDED FOR ANXIETY, # 28 tablet, 2 Refills, Maintenance, 05/06/20 15:17:00 EDT, [facility], 155, cm, 05/03/20 18:55:00 [...] Refills, Maintenance, 11/16/21 23:51:00 EDT, DIS Tablet, [facility], Partial fill upon patient [...] 3 Refills, Maintenance, 10/25/21 11:13:00 EDT, Capsule, [facility], Partial fill upon patient [...] Active Bilateral leg pain(Confirmed) Active *BHN/CCA/CC-Matias Vela- [phone]/Health [facility], active care coordination(Confirmed) Active POTS (postural orthostatic t achycardia syndrome)(Confirmed) Active Medulloblastoma(Confirmed) Active RUQ pain(Confirmed) Active Social History Social History Type Response Smoking Status Never smoker; Tobacc o user in household: No entered on: 04/11/16 Sex Female
--- OUTSIDE RECORDS SUMMARY | 2024-04-27 10:17 | XMS_ITS | Continuity of Care Document ---
Author Organization [facility] Address Unknown Care Team Providers Care Fireworks Assembly Supervisor Name Role Phone Sisi Hernandez MD Primary Care Physician Encounter [facility] Date(s): 09/14/21 - 10/14/21 [facility] Allergies, Adverse Reactions, Alerts Substance Reaction [...] 0 Refills, Maintenance, 09/27/21 15:38:00 EST, Tablet, [facility] [...] Refills, Maintenance, 09/27/21 15:31:00 EST, ER Capsule, [facility], Partial fill upon patient r... Start Date: 09/27/21 Status: Ordered albuterol CFC free 90 mcg/inh inhalation aerosol 2, puffs, Inhalation, Every 6 hours, PRN, # 2 each, Refills 11, Tot. Refills 11, Maintenance, 10/05/21 9:52:00 EST, Aerosol, Route to Pharmacy Electronically, [id number], [facility], ONLY ALBUTEROL HFA, CANCEL V... Start [...] 6 Refills, Maintenance, 10/03/21 12:18:00 EST, Solution, [facility] 3, 155, cm, 09/27/21 15:08:00 EST, Height, 68.5, kg, 06/03/20 13:18:00 EST, Dry Weight Start Date: 10/03/21 Status: Ordered cyanocobalamin 1000 mcg/ml injectable solution 1 mL = 1,000 mcg, Intramuscular, Every 30 days, # 3 mL, 6 Refills, Maintenance, 06/15/20 11:56:00 EST, Solution, [facility] 3, 155, cm, 06/03/20 13:15:00 EST, Height, 68.5, kg, 06/03/20 13:18:00 EST, Dry Weight Start Date: 06/15/20 Status: Ordered Diflucan 150 mg oral tablet 1 tablet = 150 mg, By Mouth, Every 48 hours, # 2 tablet, 0 Refills, Soft Stop, 07/31/21 10:46:00 EST, Tablet, [facility], Partial fill upon patient request if the prescription is for a schedule II opioid drug., 155, cm, 06/09/21 14:21:00... Start Date: 07/31/21 Status: Ordered dilTIAZem 240 mg/24 hours oral tablet, extended release 1 tablet = 240 mg, By Mouth, Daily, FURTHER REFILLS BY BOX FABRICATOR, # 90 tablet, 0 Refills, Maintenance, 11/27/19 8:57:00 EDT, ER Tablet, [facility], 155, cm, 10/07/19 12:25:00 EDT, Height, 63, kg, 07/01/19 19:58:00 EST, Dry Weight Start Date: 11/27/19 Status: Ordered Flovent HFA 110 mcg/inh inhalation aerosol 2 puffs, Inhalation, 2 times a day, # 12 Gm, 0 Refills, Maintenance, 10/05/21 13:23:00 EST, Aerosol, [facility] [...] 2 Refills, Maintenance, 05/06/20 15:17:00 EDT, [facility], 155, cm, 05/03/20 18:55:00 [...] Refills, Maintenance, 08/04/20 12:39:00 EST, Capsule, [facility] [...] Active Bilateral leg pain(Confirmed) Active *BHN/CCA/CC-Matias Vela- [phone]/Health snf, active care coordination(Confirmed) Active POTS (postural orthostatic t achycardia syndrome)(Confirmed) Active Medulloblastoma(Confirmed) Active RUQ pain(Confirmed) Active Social History Social History Type Response Smoking Status Never smoker; Tobacc o user in household: No entered on: 04/11/16 Sex Female
--- OUTSIDE RECORDS SUMMARY | 2024-04-27 10:17 | XMS_ITS | Continuity of Care Document ---
Author Organization [facility] Address [address], [address] [place] [address]- Care Team Providers Care Pin Inserter Name Role Phone Sisi Hernandez MD Primary Care Physician [phone] Encounter [place] Date(s): 01/25/22 - 02/24/22 [facility] [employer] [facility] [address], [address] [place], [place] [address] Allergies, Adverse Reactions, Alerts [...] 13:12:00 EDT, Aerosol, Route to Pharmacy Electronically, [id number], [facility], ONLY [...] Maintenance, 10/03/21 12:18:00 EST, Solution, [facility], 155, cm, 09/27/21 15:08:00 EST, Height, 68.5, kg, 06/03/20 13:18:00 EST, Dry Weight Start Date: 10/03/21 Status: Ordered cyanocobalamin 1000 mcg/ml injectable solution 1 mL = 1,000 mcg, Intramuscular, Every 30 days, # 3 mL, 6 Refills, Maintenance, 06/15/20 11:56:00 EST, Solution, [facility], 155, cm, 06/03/20 13:15:00 EST, Height, 68.5, kg, 06/03/20 13:18:00 EST, Dry Weight Start Date: 06/15/20 Status: Ordered dilTIAZem 240 mg/24 hours oral tablet, extended release 1 tablet = 240 mg, By Mouth, Daily, FURTHER REFILLS BY ASSISTANT COMMUNITY MANAGER, # 90 tablet, 0 Refills, Maintenance, 11/27/19 8:57:00 EDT, ER Tablet, [facility], 155, cm, 10/07/19 12:25:00 EDT, [...] 15:17:00 EDT, [facility], 155, cm, 05/03/20 [...] 11/16/21 23:51:00 EDT, DIS Tablet, [facility], Partial fill upon patient request if the prescription is for a schedule II o... Start Date: 11/16/21 Status: Ordered Peridex 0.12% liquid 15 mL = 0.018 Gm, By Mouth, 2 times a day, # 420 mL, 0 Refills, Maintenance, 01/18/22 8:47:00 EDT, Liquid, [facility], Partial [...] Active Bilateral leg pain(Confirmed) Active *BHN/CCA/CC-Matias Vela- [phone]/Health half-way, active care coordination(Confirmed) Active POTS (postural orthostatic t achycardia syndrome)(Confirmed) Active Medulloblastoma(Confirmed) Active RUQ pain(Confirmed) Active Social History Social History Type Response Smoking Status Never smoker; Tobacc o user in household: No entered on: 04/11/16 Sex Female
--- OUTSIDE RECORDS SUMMARY | 2024-04-27 10:17 | XMS_ITS | Continuity of Care Document ---
Author Organization [facility] Address [address] [place] [address]- Care Team Providers Care Information Systems Security Manager Name Role Phone Sisi Hernandez MD Primary Care Physician Encounter [facility] Date(s): 07/13/21 - 07/20/21 [facility] [address] [place], [place] [address] Attending Physician: Not on Staff, [...] 0 Refills, Maintenance, 06/09/21 14:32:00 EST, Tablet, [facility] Start Date: 06/09/21 Status: Ordered Adderall XR 10 mg oral capsule, extended release 1 capsule = 10 mg, By Mouth, Daily in AM, to take with short acting, # 30 capsule, 0 Refills, Maintenance, 06/09/21 14:31:00 EST, ER Capsule, [facility], Partial fill upon patient request if the prescription is for a schedule II opioid d... Start Date: 06/09/21 Status: Ordered albuterol CFC free 90 mcg/inh inhalation aerosol 2, puffs, Inhalation, Every 6 hours, PRN, # 2 each, Refills 11, Tot. Refills 11, Maintenance, 12/02/20 8:50:00 EDT, Aerosol, Route to Pharmacy Electronically, [id number], [facility], [...] 6 Refills, Maintenance, 06/15/20 11:56:00 EST, Solution, [facility], 155, cm, 06/03/20 13:15:00 EST, Height, 68.5, kg, 06/03/20 13:18:00 EST, Dry Weight Start Date: 06/15/20 Status: Ordered dilTIAZem 240 mg/24 hours oral tablet, extended release 1 tablet = 240 mg, By Mouth, Daily, FURTHER REFILLS BY PIPELINE SYSTEMS OPERATOR, # 90 tablet, 0 Refills, Maintenance, 11/27/19 8:57:00 EDT, ER Tablet, [facility], 155, cm, 10/07/19 12:25:00 [...] tablet, 2 Refills, Maintenance, 05/06/20 15:17:00 EDT, [facility], 155, cm, 05/03/20 18:55:00 EDT, Height, [...] 15:30:53 EST, Aerosol, Route to Pharmacy Electronically, [id number]... Start Date: 09/12/18 Stop Date: 02/09/19 Status: Ordered ProAir HFA 90 mcg/inh inhalation aerosol with adapter 2, puffs, Inhalation, Every 4 hours, PRN, use with spacer chamber BRAND NAME MEDICALLY NECESSARY, #8.5 Gm, Refills 0, Tot. Refills 0, Maintenance, 12/05/20 15:38:00 EDT, Aerosol, Route to Pharmacy Electronically, [id number]... Start Date: 12/05/20 Status: Ordered Sunosi 75 [...] 2 Refills, Maintenance, 08/04/20 12:39:00 EST, Capsule, [facility] 3, Partial fill upon patient [...] Active Bilateral leg pain(Confirmed) Active *BHN/CCA/CC-Matias Vela- [phone]/Health snf, active care coordination(Confirmed) Active POTS (postural orthostatic t achycardia syndrome)(Confirmed) Active Medulloblastoma(Confirmed) Active RUQ pain(Confirmed) Active Viral URI(Confirmed) Active Social History Social History Type Response Smoking Status Never smoker; Tobacc o user in household: No entered on: 04/11/16 Sex
--- OUTSIDE RECORDS SUMMARY | 2024-04-27 10:17 | XMS_ITS | Continuity of Care Document ---
Author Organization [facility] Address [address], [address] [place] [address]- Care Team Providers Care Stunt Driver Name Role Phone Sisi Hernandez MD Primary Care Physician Encounter [facility] Date(s): 08/17/22 - 09/16/22 [facility] [address], [address] [place], [place] [address] Allergies, Adverse Reactions, [...] 13:12:00 EDT, Aerosol, Route to Pharmacy Electronically, [id number], [facility], ONLY ALBUTEROL HFA, CANCEL... Start Date: 02/15/22 Stop Date: 02/10/23 Status: Ordered Colace sodium 100 mg oral capsule 100 mg, 1, capsule, By Mouth, 2 times a day, PRN, # 30 capsule, Refills 0, Tot. Refills 0, Maintenance, for constipation, 07/31/22 11:03:00 EST, Route to Pharmacy Electronically, [facility], Partial fill upon patient request [...] 6 Refills, Maintenance, 09/04/22 8:50:00 EST, Solution, [facility], 155, cm, 08/14/22 13:52:00 [...] 0 Refills, Maintenance, 02/15/22 13:10:00 EDT, Aerosol, [facility], new dosage, 155, [...] 07/31/22 11:03:00 EST, Route to Pharmacy Electronically, [facility], Partial fill upon patient request if the prescription is for a schedule... Start Date: 07/31/22 Status: Ordered LORazepam 0.5 mg oral tablet See Instructions, TAKE 1 TABLET BY MOUTH TWO TIMES A DAY NEEDED FOR ANXIETY, # 28 tablet, 2 Refills, Maintenance, 06/06/22 10:45:00 EST, [facility], 155, cm, [...] Refills, Maintenance, 08/01/22 6:06:00 EST, REC Powder, [facility], Partial fill upon patient request [...] 0 Refills, Maintenance, 08/01/22 6:06:00 EST, Tablet, [facility], Partial fill upon patient request if the prescription is for a schedule II opioid drug., 155, cm,... Start Date: 08/01/22 Status: Ordered simethicone 80 mg oral tablet, chewable 80 mg, 1, tablet, Chew, 4 times a day, # 12 tablet, Refills 0, Tot. Refills 0, Maintenance, 07/31/22 11:03:00 EST, Route to Pharmacy Electronically, [facility], Partial fill upon patient request [...] 07/31/22 11:03:00 EST, Route to Pharmacy Electronically, [facility], Partial fill [...] 3 Refills, Maintenance, 06/05/22 14:27:00 EST, Capsule, [facility], [...] Bilateral leg pain Confirmed Active *BHN/CCA/CC-[facility]ias Vela- [phone]/Health snf, active care coordination Confirmed Active POTS [...] Sisi Hernandez MD Position: [facility] Primary Care Physician Member Role: PCP Address: Address: [address] [place] [address] [facility] Name: Lizzette To RN Position: [facility] RN Member Role: Primary Care Nurse Name: Karolina Adkins MD Position: [facility] Physician -Physician Practices Member Role: Lifetime Consulting Physician Address: Address: [address] [place] [address] [facility] [place], [place] [facility] Name: Isadora Godfrey RN Position: [facility] RN Member Role: Primary Care Nurse Name: Rossy Rowe RN Position: [facility] SN RN Member Role: Primary Care Nurse Name: Cindi Hayward Position: [facility] RN Member Role: Primary Care Nurse Name: Bela Mcmahon RN Position: [facility] Hospital Lagging Machine Operator Member Role: Primary Care Nurse Name: Nicole Hernandez RN Position: [facility] RN Member Role: Primary Care Nurse Name: Zac Castillo RN Position: [facility] ED RN W/OE and Tasks Member Role: Primary Care Nurse Name: Jeanne Grande RN Position: [facility] RN Member Role: Primary Care Nurse Care Team Related Persons Name: TURNERBEAR RIBERA Address: home [address] [place], [place] Name: BEAR TURNER SECONDARY Address: home [address] [place], [place] Name: ISATU ECKERT Address: home [place], [place] Name: ISAAC VERDE PRIMARY Address: home [address] [place] [address] Name: ADRY DURANT Name: PANCHO [place]OME Address: [place] [address]
--- OUTSIDE RECORDS SUMMARY | 2024-04-27 10:17 | XMS_ITS | Continuity of Care Document ---
Author Organization [facility] Address [address] [place] [address]- Care Team Providers Care Owner/Photographer Name Role Phone Sisi Hernandez MD Primary Care Physician Encounter [facility] [place] Date(s): 08/29/23 - 09/28/23 [facility] [address] [place], [place] [address] Allergies, Adverse Reactions, Alerts Substance [...] Refills, Maintenance, 12/21/22 14:40:00 EDT, ER Capsule, [facility], Partial fill upon patient request if the prescription is for a schedule II opioid drug., 155, cm, 12/05/22 11:... Start Date: 12/21/22 Status: Ordered albuterol CFC free 90 mcg/inh inhalation aerosol 2, puffs, Inhalation, Every 6 hours, PRN, # 2 each, Refills 11, Tot. Refills 11, Maintenance, 02/15/22 13:12:00 EDT, Aerosol, Route to Pharmacy Electronically, [id number], [facility], ONLY ALBUTEROL HFA, CANCEL... Start Date: 02/15/22 Stop Date: 02/10/23 Status: Ordered Colace sodium 100 mg oral capsule 100 mg, 1, capsule, By Mouth, 2 times a day, PRN, # 180 capsule, Refills 3, Tot. Refills 3, Maintenance, for constipation, 08/09/23 14:49:00 EST, Route to Pharmacy Electronically, [facility], Partial fill upon patient [...] 6 Refills, Maintenance, 08/07/23 13:45:00 EST, Solution, [facility], 155, cm, 06/07/23 20:58:00 EST, [...] 0 Refills, Maintenance, 02/15/22 13:10:00 EDT, Aerosol, [facility], new dosage, 155, cm, [...] 07/31/22 11:03:00 EST, Route to Pharmacy Electronically, [facility], Partial fill upon patient request if the prescription is for a schedule... Start Date: 07/31/22 Status: Ordered LORazepam 0.5 mg oral tablet See Instructions, TAKE 1 TABLET BY MOUTH TWO TIMES A DAY NEEDED FOR ANXIETY, # 28 tablet, 2 Refills, Maintenance, 12/05/22 12:25:00 EDT, [facility], 155, cm, 12/05/22 11:40:00 EDT, Height, [...] 0 Refills, Maintenance, 08/01/22 6:06:00 EST, Tablet, [facility], Partial fill upon patient request if the prescription is for a schedule II opioid drug., 155, cm,... Start Date: 08/01/22 Status: Ordered Symbicort 160mcg/4.5mcg Inhaler 2, puffs, Inhalation, 2 times a day, # 3 each, Refills 5, Tot. Refills 5, Maintenance, 09/27/22 12:00:00 EST, Aerosol, Route to Pharmacy Electronically, [id number], [facility], replaces flovent inhaler, 155, cm,... [...] 10/02/23 15:40:00 EST, 09/25/23 15:40:00 EST, Tablet, [facility], Partial fill upon patient request if the prescription is for a schedule... Start Date: 09/25/23 Stop Date: 10/02/23 Status: Ordered Tylenol 325 mg oral tablet 975 mg, 3, tablet, By Mouth, Every 6 hours, PRN, # 50 tablet, Refills 0, Tot. Refills 0, Maintenance, for pain, 07/31/22 11:03:00 EST, Route to Pharmacy Electronically, [facility], Partial fill upon patient [...] Refills, Maintenance, 08/14/23 13:38:00 EST, Chew Tablet, [facility], Partial fill upon patient request if the prescription is for a schedule II opioid drug., 155, cm, 08/14/23 13:0... Start Date: 08/14/23 Status: Ordered Vitamin D3 50,000 intl units oral capsule 1 capsule = 1,250 mcg, By Mouth, Every week, # 13 capsule, 1 Refills, Maintenance, 05/17/23 17:07:00 EDT, Capsule, [facility], Partial fill upon patient [...] Bilateral leg pain Confirmed Active *BHN/CCA/CC-Matias Vela- [phone]/Health chcf, active care coordination Confirmed Active POTS [...] Care Member Role: PCP Address: Address: [address] [place] [address] Name: Lizzette To RN Position: [facility] RN Member Role: Primary Care Nurse Name: Karolina Adkins MD Position: [facility] Physician - Primary Care Member Role: Lifetime Consulting Physician Address: Address: [address] [place] [address] [facility] [address] Name: Isadora Godfrey RN Position: [facility] RN Member Role: Primary Care Nurse Name: Rossy Rowe RN Position: [facility] SN RN Member Role: Primary Care Nurse Name: Cindi Hayward RN Position: [facility] RN Member Role: Primary Care Nurse Name: Bela Mcmahon RN Position: [facility] Hospital Poultry Raiser Member Role: Primary Care Nurse Name: Nicole Hernandez RN Position: [facility] RN Member Role: Primary Care Nurse Name: Zac Castillo RN Position: [facility] ED RN W/OE and Tasks Member Role: Primary Care Nurse Name: Harjinder MONTELONGO, Jeanne Baker Position: S RN Member Role: Primary Care Nurse Care Team Related Persons Name: BEAR TURNER Address: home [address] [place] [address] Name: TURNER BEAR SECONDARY Address: [address] [address] Name: ISATU ECKERT Address: [place] [address] Name: ISAAC VERDE PRIMARY Address: [address] [address] Name: ADRY DURANT Name: PANCHO JEROME Address: [place] [address]
--- OUTSIDE RECORDS SUMMARY | 2024-04-27 10:17 | XMS_ITS | Continuity of Care Document ---
Author Organization [facility] Address [address] [place] [address]- Care Team Providers Care Associate Dean Of Women Name Role Phone Sisi Hernandez MD Primary Care Physician [phone] Encounter [facility] [place] Date(s): 09/25/23 - 10/25/23 [facility] [address] [place], [place] [address] Allergies, Adverse Reactions, Alerts Substance [...] 13:12:00 EDT, Aerosol, Route to Pharmacy Electronically, [id number], [facility], ONLY ALBUTEROL HFA, CANCEL... Start Date: 02/15/22 Stop Date: 02/10/23 Status: Ordered Colace sodium 100 mg oral capsule 100 mg, 1, capsule, By Mouth, 2 times a day, PRN, # 180 capsule, Refills 3, Tot. Refills 3, Maintenance, for constipation, 08/09/23 14:49:00 EST, Route to Pharmacy Electronically, [facility], Partial fill upon patient [...] 6 Refills, Maintenance, 08/07/23 13:45:00 EST, Solution, [facility], 155, cm, 06/07/23 20:58:00 EST, [...] EDT, Aerosol, [facility], new dosage, 155, cm, 12/08/21 [...] Pharmacy Electronically, [facility], Partial fill upon patient [...] 12:00:00 EST, Aerosol, Route to Pharmacy Electronically, [id number], [facility], replaces flovent inhaler, 155, cm,... Start [...] Bilateral leg pain Confirmed Active *BHN/CCA/CC-Matias Vela- [phone]/Health custodial, active care coordination Confirmed Active POTS (postural orthostatic tachycardia syndrome) Confirmed Active Medulloblastoma Confirmed Active RUQ pain Confirmed Active Tachy-sharmin syndrome Confirmed Active Social History Social History Type Response Smoking Status Never smoker; Tobacc o user in household: No entered on: 04/11/16 Sex Patient Care team information Care Team Personnel Name: Vidhya Grace RN Position: [facility] RN Member Role: Primary Care Nurse Name: Sisi Hernandez MD Position: [facility] Physician - Primary Care Member Role: PCP Address: Address: [address] [place] [id number] Name: Lizzette To RN Position: [facility] SN RN Member Role: Primary Care Nurse Name: Karolina Adkins MD Position: [facility] Physician - Primary Care Member Role: Lifetime Consulting Physician Address: Address: [address] [place] [address] Geriatric [facility] Palliative Care [place], [place] [address] Name: Isadora Godfrey RN Position: [facility] RN Member Role: Primary Care Nurse Name: Rossy Rowe RN Position: [facility] SN RN Member Role: Primary Care Nurse Name: Cindi Hayward RN Position: [facility] RN Member Role: Primary Care Nurse Name: Bela Mcmahon RN Position: [facility] Hospital Senior Infrastructure Architect Member Role: Primary Care Nurse Name: Nicole Hernandez RN Position: [facility] RN Member Role: Primary Care Nurse Name: Zac Castillo RN Position: [facility] ED RN W/OE and Tasks Member Role: Primary Care Nurse Name: Jeanne Grande RN Position: [facility] RN Member Role: Primary Care Nurse Care Team Related Persons Name: KATHRYN TURNERY Address: [address] [place], [place] Name: BEAR TURNER SECONDARY Address: home [address] [place], [place] Name: ISATU ECKERT Address: [place] [address] Name: ISAAC VERDE PRIMARY Address: [address] [address] Name: ADRY DURANT Name: PANCHO JEROME Address: [place] [address]
--- OUTSIDE RECORDS SUMMARY | 2024-04-27 10:17 | XMS_ITS | Continuity of Care Document ---
Author Organization [facility] Address [address] [place] [address]- Care Team Providers Care Healthcare Administration Intern Name Role Phone Sisi Hernandez MD Primary Care Physician [phone] Encounter [facility] [place] Date(s): 12/29/20 - 01/28/21 [facility] [address] [place], [place] [address] Allergies, Adverse Reactions, Alerts Substance Reaction Severity [...] 8:50:00 EDT, Aerosol, Route to Pharmacy Electronically, [id number], [facility], 155, cm, 06/03/20 13:15:00 E... Start [...] 6 Refills, Maintenance, 06/15/20 11:56:00 EST, Solution, [facility], 155, cm, 06/03/20 13:15:00 EST, Height, 68.5, kg, 06/03/20 13:18:00 EST, Dry Weight Start Date: 06/15/20 Status: Ordered dilTIAZem 240 mg/24 hours oral tablet, extended release 1 tablet = 240 mg, By Mouth, Daily, FURTHER REFILLS BY FIELD SERVICE REP, # 90 tablet, 0 Refills, Maintenance, 11/27/19 8:57:00 EDT, ER Tablet, [facility], 155, cm, 10/07/19 12:25:00 [...] 05/06/20 15:17:00 EDT, [facility], 155, [...] 15:30:53 EST, Aerosol, Route to Pharmacy Electronically, [id number]... Start Date: 09/12/18 Stop Date: 02/09/19 Status: Ordered ProAir HFA 90 mcg/inh inhalation aerosol with adapter 2, puffs, Inhalation, Every 4 hours, PRN, use with spacer chamber BRAND NAME MEDICALLY NECESSARY, #8.5 Gm, Refills 0, Tot. Refills 0, Maintenance, 12/05/20 15:38:00 EDT, Aerosol, Route to Pharmacy Electronically, [id number]... Start Date: 12/05/20 Status: Ordered ramelteon 8 mg oral tablet 1 tablet = 8 mg, By Mouth, Daily at bedtime, # 30 tablet, 11 Refills, Maintenance, 12/02/20 8:48:00EDT, [facility] 3, Partial fill upon patient [...] 2 Refills, Maintenance, 08/04/20 12:39:00 EST, Capsule, [facility], Partial [...] Active Bilateral leg pain(Confirmed) Active *BHN/CCA/CC-Matias Vela- [phone]/Health jail, active care coordination(Confirmed) Active POTS (postural orthostatic t achycardia syndrome)(Confirmed) Active Medulloblastoma(Confirmed) Active RUQ pain(Confirmed) Active Viral URI(Confirmed) Active Social History Social History Type Response Smoking Status Never smoker; Tobacc o user in household: No entered on: 04/11/16 Sex
--- OUTSIDE RECORDS SUMMARY | 2024-04-27 10:17 | XMS_ITS | Continuity of Care Document ---
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 Start Date: 02/15/22 Stop Date: 02/10/23 Status: Ordered Colace sodium 100 mg oral capsule 100 mg, 1, capsule, By Mouth, 2 times a day, PRN, # 30 capsule, Refills 0, Tot. Refills 0, Maintenance, for constipation, 07/31/22 11:03:00 EST, Route to Pharmacy Electronically, [facility], Partial fill upon patient request [...] Refills, Maintenance, 09/04/22 8:50:00 EST, Solution, [facility], 155, cm, 08/14/22 13:52:00 EST, [...] Refills, Maintenance, 02/15/22 13:10:00 EDT, Aerosol, [facility], new dosage, 155, cm, 12/08/21 [...] 11:03:00 EST, Route to Pharmacy Electronically, [facility], Partial fill upon patient request if the prescription is for a schedule... Start Date: 07/31/22 Status: Ordered LORazepam 0.5 mg oral tablet See Instructions, TAKE 1 TABLET BY MOUTH TWO TIMES A DAY NEEDED FOR ANXIETY, # 28 tablet, 2 Refills, Maintenance, 12/05/22 12:25:00 EDT, [facility], 155, cm, 12/05/22 11:40:00 [...] Refills, Maintenance, 08/01/22 6:06:00 EST, REC Powder, [facility] 3, Partial fill upon patient [...] 0 Refills, Maintenance, 08/01/22 6:06:00 EST, Tablet, [facility] 3, Partial fill upon patient request if the prescription is for a schedule II opioid drug., 155, cm,... Start Date: 08/01/22 Status: Ordered Symbicort 160mcg/4.5mcg Inhaler 2, puffs, Inhalation, 2 times a day, # 3 each, Refills 5, Tot. Refills 5, Maintenance, 09/27/22 12:00:00 EST, Aerosol, Route to Pharmacy Electronically, [id number], [facility], replaces flovent inhaler, [...] 11:03:00 EST, Route to Pharmacy Electronically, [facility], Partial fill upon patient request if the prescription is... Start Date: 07/31/22 Status: Ordered verapamil 240 mg/12 hours oral tablet, extended release TAKE 1 TABLET BY MOUTH DAILY. Start Date: 09/27/22 Status: Ordered Vitamin D3 1000 intl units oral capsule 1 capsule = 25 mcg, By Mouth, Daily, # 100 capsule, 3 Refills, Maintenance, 06/05/22 14:27:00 EST, Capsule, [facility], Partial fill upon patient request [...] Bilateral leg pain Confirmed Active *BHN/CCA/CC-Matias Vela- [phone]/Health skilled nursing, active care coordination Confirmed Active POTS (postural orthostatic tachycardia syndrome) Confirmed Active Medulloblastoma Confirmed Active RUQ pain Confirmed Active Tachy-sharmin syndrome Confirmed Active Diagnosis Diagnosis Type Effective Dates Health Status Clinical Service Informant Anxiety Discharge Diagnosis 12/05/22 B12 deficiency Discharge Diagnosis 12/05/22 Cognitive disorder Discharge Diagnosis 12/05/22 Narcolepsy and cataplexy Discharge Diagnosis 12/05/22 Tachy-sharmin syndrome Discharge Diagnosis 12/05/22 Vital Signs Most recent to oldest [Reference Range]: 1 Height 155 cm (12/05/22 11:40 AM) Weight 69.3 kg (12/05/22 11:40 AM) Oxygen Saturation [94-100 %] 100 % (12/05/22 11:40 AM) Pulse Rate [55-90 bpm] 110 bpm *H* (12/05/22 11:40 AM) Body Mass Index [18.5-24.99 kg/m2] 28.84 kg/m2 *H* (12/05/22 11:40 AM) Blood Pressure [90-138/55-84 mm Hg] 114/ 64mm Hg (12/05/22 11:40 AM) Temperature [96.8-100.4 DegF] 98.0 DegF (12/05/22 11:40 AM) Mode of Delivery (Oxygen) Room air (12/05/22 11:40 AM) Blood pressure sites Arm, left (12/05/22 11:40 AM) Temperature Route Temporal (12/05/22 11:40 AM) Weight Obtained Via Standing scale (12/05/22 11:40 AM) Social History Social History Type Response Smoking Status Never smoker; Tobacc o user in household: No entered on: 04/11/16 Sex Note * Karissa Howell: PERFORM, SIGN, VERIFY Event Display: Patient Education/Instruction Authored Date: [id number] [facility] Clinical Summary Name ANSELMO TURNER Age 32 Years 1990 PCP Mary KEATING, Sisi Almanza PCP Visit Date 12/05/2022 11:27:00 Additional Instructions: Scheduled Appointments?? Future Appointments ?*[facility] ?[address] ?[place],??[place],??[address] ?Phone:??--?Fax:??-- ?Appt. Date:??12/21/2022?2:30 PM ?Scheduled Provider:??Jonathan KEATING , Nita Ivan ?*[facility] ?[address]??[place],??[place],??[address] ?Phone:??--?Fax:??-- ?Appt. Date:??02/05/2023?1:40 PM ?Scheduled Provider:??Sisi Hernandez MD Follow-Up Instructions ?? Diagnosis Medications: Please continue your medications until treatment is completed or stopped by your provider. Discuss any questions related to medications with your provider. Medications to Continue with No Changes [facility], [address] [place], [place] [id number], [phone] Lorazepam (LORazepam 0.5 mg oral tablet) TAKE 1 TABLET BY MOUTH TWO TIMES A DAY NEEDED FOR ANXIETY. Refills: 2. Next Dose: These medications were not printed or sent [...] capsule if needed. Refills: 0. Next Dose: Dextroamphetamine (dextroamphetamine 5 mg oral capsule, extended release) 1 capsule By Mouth twice daily in AM and midday. Refills: 0. Next Dose: Docusate (Colace sodium [...] MOUTH TWO TIMES A DAY. Next Dose: Metoprolol (Metoprolol Tartrate 50 mg [...] orders Vital Signs Height 155 cm Weight 69.3 kg BMI 28.84 kg/m2 Blood Pressure 114 mm Hg/64 mm Hg Temperature 98.0 DegF Pulse Rate 110 bpm Respiratory Rate 02 Sat Mode of Delivery 100 %/Room air You can now view a summary of your hospital visit from the comfort of your home through a free online portal called [facility]. [facility] is a website that allows you to securely view your medical information including discharge summary, medications and follow-up visits. ??You can alsosend a secure electronic message to your doctor???s office to request appointments, renew medications or just ask a question. You can enroll at [email or web address] or register during your next office [...] primary care provider, you may find a [facility] provider by calling [facility] at [phone]. For information about the plan of care [...] Team Personnel Name: Vidhya Grace RN Position: [facility] RN Member Role: Primary Care Nurse Name: Sisi Hernandez MD Position: [facility] Primary Care Physician Member Role: PCP Address: Address: [address] [place] [address] [facility] Name: Lizzette To RN Position: [facility] RN Member Role: Primary Care Nurse Name: Karolina Adkins MD Position: [facility] Physician -Physician Practices Member Role: Lifetime Consulting Physician Address: Address: [address] [place] [address] Geriatric [facility] Palliative Care [place] [facility] Name: Isadora Godfrey RN Position: [facility] RN Member Role: Primary Care Nurse Name: Rossy Rowe RN Position: [facility] SN RN Member Role: Primary Care Nurse Name: Cindi Hayward Position: [facility] RN Member Role: Primary Care Nurse Name: Bela Mcmahon RN Position: [facility] Hospital Firestop/Containment Worker Member Role: Primary Care Nurse Name: Nicole Hernandez RN Position: [facility] RN Member Role: Primary Care Nurse Name: Zac Castillo RN Position: [facility] ED RN W/OE and Tasks Member Role: Primary Care Nurse Name: Jeanne Grande RN Position: [facility] RN Member Role: Primary Care Nurse Care Team Related Persons Name: BEAR TURNER Address: home [address] [place], [place] Name: BEAR TURNER SECONDARY Address: home [address] [place], [place] Name: ISATU ECKERT Address: home [place], [place] Name: ISAAC VERDE PRIMARY Address: home [address] [place] [address] Name: ADRY DURANT Name: PANCHO JEROME Address: [place] [address]
--- OUTSIDE RECORDS SUMMARY | 2024-04-27 10:17 | XMS_ITS | Continuity of Care Document ---
Author Organization [facility] Address [address] [place] [address]- Care Team Providers Care Assistant Professor Of Archaeology Name Role Phone Sisi Hernandez MD Primary Care Physician Encounter [facility] [place] Date(s): 01/09/21 - 02/08/[address] [address] Attending Physician: AdmAngel can Admitting Physician: AdmtrAngel Referring Physician: Admtr ArAndrea Allergies, Adverse Reactions, [...] 8:50:00 EDT, Aerosol, Route to Pharmacy Electronically, [id number], [facility], 155, cm, 06/03/20 13:15:00 E... Start [...] Refills, Maintenance, 06/15/20 11:56:00 EST, Solution, [facility], 155, cm, 06/03/20 13:15:00 EST, Height, 68.5, kg, 06/03/20 13:18:00 EST, Dry Weight Start Date: 06/15/20 Status: Ordered dilTIAZem 240 mg/24 hours oral tablet, extended release 1 tablet = 240 mg, By Mouth, Daily, FURTHER REFILLS BY PRODUCTION CONTROL PLANNER, # 90 tablet, 0 Refills, Maintenance, 11/27/19 8:57:00 EDT, ER Tablet, [facility], 155, cm, 10/07/19 12:25:00 [...] tablet, 2 Refills, Maintenance, 05/06/20 15:17:00 EDT, [facility], 155, cm, 05/03/20 18:55:00 [...] 15:30:53 EST, Aerosol, Route to Pharmacy Electronically, [id number]... Start Date: 09/12/18 Stop Date: 02/09/19 Status: Ordered ProAir HFA 90 mcg/inh inhalation aerosol with adapter 2, puffs, Inhalation, Every 4 hours, PRN, use with spacer chamber BRAND NAME MEDICALLY NECESSARY, #8.5 Gm, Refills 0, Tot. Refills 0, Maintenance, 12/05/20 15:38:00 EDT, Aerosol, Route to Pharmacy Electronically, [id number]... Start Date: 12/05/20 Status: Ordered ramelteon 8 mg oral tablet 1 tablet = 8 mg, By Mouth, Daily at bedtime, # 30 tablet, 11 Refills, Maintenance, 12/02/20 8:48:00EDT, [facility], Partial fill upon patient [...] 2 Refills, Maintenance, 08/04/20 12:39:00 EST, Capsule, [facility], Partial fill upon patient [...] Active Bilateral leg pain(Confirmed) Active *BHN/CCA/CC-Matias Vela- [phone]/Health nursing home, active care coordination(Confirmed) Active POTS (postural orthostatic t achycardia syndrome)(Confirmed) Active Medulloblastoma(Confirmed) Active RUQ pain(Confirmed) Active Viral URI(Confirmed) Active Social History Social History Type Response Smoking Status Never smoker; Tobacc o user in household: No entered on: 04/11/16 Sex
--- OUTSIDE RECORDS SUMMARY | 2024-04-27 10:17 | XMS_ITS | Continuity of Care Document ---
Author Organization [facility] Address [address] [place] [address]- Care Team Providers Care Shingle Cutter Name Role Phone Sisi Hernandez MD Primary Care Physician Encounter [facility] [place] Date(s): 01/03/21 - 03/02/21 [facility] [address] [place], [place] [address] Attending Physician: Sisi Hernandez MD [...] 8:50:00 EDT, Aerosol, Route to Pharmacy Electronically, [id number], [facility], 155, cm, 06/03/20 13:15:00 [...] 6 Refills, Maintenance, 06/15/20 11:56:00 EST, Solution, [facility] 3, 155, cm, 06/03/20 13:15:00 EST, Height, 68.5, kg, 06/03/20 13:18:00 EST, Dry Weight Start Date: 06/15/20 Status: Ordered dilTIAZem 240 mg/24 hours oral tablet, extended release 1 tablet = 240 mg, By Mouth, Daily, FURTHER REFILLS BY ENGRAVER PANTOGRAPH, # 90 tablet, 0 Refills, Maintenance, 11/27/19 8:57:00 EDT, ER Tablet, [facility], 155, cm, 10/07/19 12:25:00 [...] tablet, 2 Refills, Maintenance, 05/06/20 15:17:00 EDT, [facility] 3, 155, cm, 05/03/20 18:55:00 [...] 15:30:53 EST, Aerosol, Route to Pharmacy Electronically, [id number]... Start Date: 09/12/18 Stop Date: 02/09/19 Status: Ordered ProAir HFA 90 mcg/inh inhalation aerosol with adapter 2, puffs, Inhalation, Every 4 hours, PRN, use with spacer chamber BRAND NAME MEDICALLY NECESSARY, #8.5 Gm, Refills 0, Tot. Refills 0, Maintenance, 12/05/20 15:38:00 EDT, Aerosol, Route to Pharmacy Electronically, [id number]... Start Date: 12/05/20 Status: Ordered ramelteon 8 mg oral tablet 1 tablet = 8 mg, By Mouth, Daily at bedtime, # 30 tablet, 11 Refills, Maintenance, 12/02/20 8:48:00EDT, [facility] 3, Partial fill upon patient request [...] 2 Refills, Maintenance, 08/04/20 12:39:00 EST, Capsule, [facility] 3, Partial fill upon patient request [...] Active Bilateral leg pain(Confirmed) Active *BHN/CCA/CC-[facility]- [phone]/Health skilled nursing, active care coordination(Confirmed) Active POTS (postural orthostatic t achycardia syndrome)(Confirmed) Active Medulloblastoma(Confirmed) Active RUQ pain(Confirmed) Active Viral URI(Confirmed) Active Social History Social History Type Response Smoking Status Never smoker; Tobacc o user in household: No entered on: 04/11/16 Sex
--- OUTSIDE RECORDS SUMMARY | 2024-04-27 10:17 | XMS_ITS | Continuity of Care Document ---
Author Organization [facility] Address [address] [place] [address]- Care Team Providers Care Solderer Torch Name Role Phone Mary KEATING, Sisi Almanza Primary Care Physician [phone] Encounter [facility] [place] Date(s): 02/09/21 - 03/11/[address] [address] Allergies, Adverse Reactions, Alerts Substance Reaction Severity [...] 8:50:00 EDT, Aerosol, Route to Pharmacy Electronically, [id number], [facility], 155, cm, [...] 6 Refills, Maintenance, 06/15/20 11:56:00 EST, Solution, [facility], 155, cm, 06/03/20 13:15:00 EST, Height, 68.5, kg, 06/03/20 13:18:00 EST, Dry Weight Start Date: 06/15/20 Status: Ordered dilTIAZem 240 mg/24 hours oral tablet, extended release 1 tablet = 240 mg, By Mouth, Daily, FURTHER REFILLS BY ASSISTANT PRESSMAN, # 90 tablet, 0 Refills, Maintenance, 11/27/19 8:57:00 EDT, ER Tablet, [facility], 155, cm, [...] tablet, 2 Refills, Maintenance, 05/06/20 15:17:00 EDT, [facility], 155, [...] 15:30:53 EST, Aerosol, Route to Pharmacy Electronically, [id number]... Start Date: 09/12/18 Stop Date: 02/09/19 Status: Ordered ProAir HFA 90 mcg/inh inhalation aerosol with adapter 2, puffs, Inhalation, Every 4 hours, PRN, use with spacer chamber BRAND NAME MEDICALLY NECESSARY, #8.5 Gm, Refills 0, Tot. Refills 0, Maintenance, 12/05/20 15:38:00 EDT, Aerosol, Route to Pharmacy Electronically, [id number]... Start Date: 12/05/20 Status: Ordered ramelteon 8 mg oral tablet 1 tablet = 8 mg, By Mouth, Daily at bedtime, # 30 tablet, 11 Refills, Maintenance, 12/02/20 8:48:00EDT, [facility], Partial fill upon patient request if [...] 2 Refills, Maintenance, 08/04/20 12:39:00 EST, Capsule, [facility], Partial fill [...] Active Bilateral leg pain(Confirmed) Active *BHN/CCA/CC-[facility]- [phone]/Health group home, active care coordination(Confirmed) Active POTS (postural orthostatic t achycardia syndrome)(Confirmed) Active Medulloblastoma(Confirmed) Active RUQ pain(Confirmed) Active Viral URI(Confirmed) Active Social History Social History Type Response Smoking Status Never smoker; Tobacc o user in household: No entered on: 04/11/16 Sex
--- OUTSIDE RECORDS SUMMARY | 2024-04-27 10:17 | XMS_ITS | Continuity of Care Document ---
Author Organization [facility] Address [address] [place] [address]- Care Team Providers Care Rail Car Driver Name Role Phone Sisi Hernandez MD Primary Care Physician Encounter [facility] [place] [place] Date(s): 12/19/20 - 01/18/[address] [address] Allergies, Adverse Reactions, Alerts Substance Reaction Severity [...] 12/22/20 12:53:00 EDT, Route to Pharmacy Electronically, [facility] Tablet, Partial fill upon patient request if the... Start Date: 12/22/20 Stop Date: 01/21/21 Status: Ordered albuterol CFC free 90 mcg/inh inhalation aerosol 2, puffs, Inhalation, Every 6 hours, PRN, # 2 each, Refills 11, Tot. Refills 11, Maintenance, 12/02/20 8:50:00 EDT, Aerosol, Route to Pharmacy Electronically, [id number], [facility], 155, cm, 06/03/20 13:15:00 E... [...] mg, By Mouth, Daily, FURTHER REFILLS BY STORE SALES MANAGER, # 90 tablet, 0 Refills, Maintenance, [...] Refills, Maintenance, 05/06/20 15:17:00 EDT, [facility] 3, 155, cm, 05/03/20 18:55:00 [...] 15:30:53 EST, Aerosol, Route to Pharmacy Electronically, [id number]... Start Date: 09/12/18 Stop Date: 02/09/19 Status: Ordered ProAir HFA 90 mcg/inh inhalation aerosol with adapter 2, puffs, Inhalation, Every 4 hours, PRN, use with spacer chamber BRAND NAME MEDICALLY NECESSARY, #8.5 Gm, Refills 0, Tot. Refills 0, Maintenance, 12/05/20 15:38:00 EDT, Aerosol, Route to Pharmacy Electronically, [id number]... Start Date: 12/05/20 Status: Ordered ramelteon 8 mg oral tablet 1 tablet = 8 mg, By Mouth, Daily at bedtime, # 30 tablet, 11 Refills, Maintenance, 12/02/20 8:48:00EDT, [facility], Partial fill [...] 2 Refills, Maintenance, 08/04/20 12:39:00 EST, Capsule, [facility], Partial [...] Active Bilateral leg pain(Confirmed) Active *BHN/CCA/CC-[facility]- [phone]/Health long-term, active care coordination(Confirmed) Active POTS (postural orthostatic t achycardia syndrome)(Confirmed) Active Medulloblastoma(Confirmed) Active RUQ pain(Confirmed) Active Viral URI(Confirmed) Active Social History Social History Type Response Smoking Status Never smoker; Tobacc o user in household: No entered on: 04/11/16 Sex
--- OUTSIDE RECORDS SUMMARY | 2024-04-27 10:17 | XMS_ITS | Continuity of Care Document ---
Author Organization [facility] Address [address] [place] [address]- Care Team Providers Care Title One Teacher Name Role Phone Sisi Hernandez MD Primary Care Physician [phone] Encounter [facility] [place] Date(s): 06/14/22 - 07/18/22 [facility] [address] [place], [place] [address] Attending Physician: Sisi Hernandez MD [...] 11/16/21 23:51:00 EDT, Route to Pharmacy Electronically, [facility] [...] 13:12:00 EDT, Aerosol, Route to Pharmacy Electronically, [id number], [facility], ONLY ALBUTEROL HFA, CANCEL... [...] 6 Refills, Maintenance, 10/03/21 12:18:00 EST, Solution, [facility], 155, cm, 09/27/21 15:08:00 EST, Height, 68.5, kg, 06/03/20 13:18:00 EST, Dry Weight Start Date: 10/03/21 Status: Ordered cyanocobalamin 1000 mcg/ml injectable solution 1 mL = 1,000 mcg, Intramuscular, Every 30 days, # 3 mL, 6 Refills, Maintenance, 06/06/22 12:08:00 EST, Solution, [facility] 3, 155, cm, 04/06/22 14:56:00 EDT, Height, 67.5, kg, 04/06/22 14:56:00 EDT, Dry Weight Start Date: 06/06/22 Status: Ordered esomeprazole 40 mg oral enteric coated capsule TAKE 1 CAPSULE BY MOUTH EVERY DAY Start Date: 07/12/22 Status: Ordered Flovent HFA 220 mcg/inh inhalation aerosol 2 puffs, Inhalation, 2 times a day, new dosage, # 12 Gm, 0 Refills, Maintenance, 02/15/22 13:10:00 EDT, Aerosol, [facility], new dosage, 155, cm, [...] 11/16/21 23:51:00 EDT, Route to Pharmacy Electronically, [facility], Partial fill upon patient request if the prescription is... Start Date: 11/16/21 Status: Ordered LORazepam 0.5 mg oral tablet See Instructions, TAKE 1 TABLET BY MOUTH TWO TIMES A DAY NEEDED FOR ANXIETY, # 28 tablet, 2 Refills, Maintenance, 06/06/22 10:45:00 EST, [facility], 155, cm, 04/06/22 14:56:00 EDT, Height, [...] Refills, Maintenance, 11/16/21 23:51:00 EDT, DIS Tablet, [facility], Partial fill upon patient request if the prescription is for a schedule II o... Start Date: 11/16/21 Status: Ordered Peridex 0.12% liquid 15 mL = 0.018 Gm, By Mouth, 2 times a day, # 420 mL, 0 Refills, Maintenance, 01/18/22 8:47:00 EDT, Liquid, [facility], Partial fill upon [...] 3 Refills, Maintenance, 06/05/22 14:27:00 EST, Capsule, [facility], Partial [...] Confirmed Active Bilateral leg pain Confirmed Active *BHN/CCA/CC-[facility]- [phone]/Health senior care, active care coordination Confirmed Active POTS (postural orthostatic tachycardia syndrome) Confirmed Active Medulloblastoma Confirmed Active RUQ pain Confirmed Active Social History Social History Type Response Smoking Status Never smoker; Tobacc o user in household: No entered on: 04/11/16 Sex Female Patient Care team information Care Team Personnel Name: Vidhya Grace RN Position: [facility] RN Member Role: Primary Care Nurse Name: Sisi Hernandez MD Position: [facility] Primary Care Physician Member Role: PCP Address: Address: [address] [place] [id number] Name: Lizzette To RN Position: [facility] RN Member Role: Primary Care Nurse Name: Karolina Adkins MD Position: [facility] Physician -Physician Practices Member Role: Lifetime Consulting Physician Address: Address: [address] [place] [address] [facility] [place] [address]- Name: Isadora Godfrey RN Position: [facility] RN Member Role: Primary Care Nurse Name: Rossy Rowe RN Position: [facility] SN RN Member Role: Primary Care Nurse Name: Bela Mcmahon RN Position: [facility] Hospital Finisher Polisher Member Role: Primary Care Nurse Name: Nicole Hernandez RN Position: [facility] RN Member Role: Primary Care Nurse Name: Zac Castillo RN Position: [facility] ED RN W/OE and Tasks Member Role: Primary Care Nurse Name: Jeanne Grande RN Position: [facility] RN Member Role: Primary Care Nurse Care Team Related Persons Name: TURNERBEAR RIBERA Address: [address] [address] Name: ISATU ECKERT Address: [place] [address] Name: ADRY DURANT Name: PANCHO JEROME Address: [place] [address]
--- OUTSIDE RECORDS SUMMARY | 2024-04-27 10:17 | XMS_ITS | Continuity of Care Document ---
Author Organization [facility] Address [address], [address] [place] [address]- Care Team Providers Care Valver Name Role Phone Sisi Hernandez MD Primary Care Physician [id number] Date[facility]s): [facility] - 02/07/22 [facility] [employer] [facility] [address] [place], [place] [address] Attending Physician: Abby Villalpando MD [...] 11/16/21 23:51:00 EDT, Route to Pharmacy Electronically, [facility], Partial fill upon patient request if the presc... Start Date: 11/16/21 Status: Ordered albuterol CFC free 90 mcg/inh inhalation aerosol 2, puffs, Inhalation, Every 6 hours, PRN, # 2 each, Refills 11, Tot. Refills 11, Maintenance, 10/05/21 9:52:00 EST, Aerosol, Route to Pharmacy Electronically, [id number], [facility], ONLY ALBUTEROL HFA, CANCEL [...] 6 Refills, Maintenance, 10/03/21 12:18:00 EST, Solution, [facility] 3, 155, cm, 09/27/21 15:08:00 EST, Height, 68.5, kg, 06/03/20 13:18:00 EST, Dry Weight Start Date: 10/03/21 Status: Ordered cyanocobalamin 1000 mcg/ml injectable solution 1 mL = 1,000 mcg, Intramuscular, Every 30 days, # 3 mL, 6 Refills, Maintenance, 06/15/20 11:56:00 EST, Solution, [facility], 155, cm, 06/03/20 13:15:00 EST, Height, 68.5, kg, 06/03/20 13:18:00 EST, Dry Weight Start Date: 06/15/20 Status: Ordered dilTIAZem 240 mg/24 hours oral tablet, extended release 1 tablet = 240 mg, By Mouth, Daily, FURTHER REFILLS BY MACHINE SETTER AUTOMATIC, # 90 tablet, 0 Refills, Maintenance, 11/27/19 8:57:00 EDT, ER Tablet, [facility], 155, cm, 10/07/19 12:25:00 EDT, Height, 63, kg, 07/01/19 19:58:00 EST, Dry Weight Start Date: 11/27/19 Status: Ordered Flovent HFA 110 mcg/inh inhalation aerosol 2 puffs, Inhalation, 2 times a day, # 12 Gm, 0 Refills, Maintenance, 10/05/21 13:23:00 EST, Aerosol, [facility], Partial fill [...] 11/16/21 23:51:00 EDT, Route to Pharmacy Electronically, [facility], Partial fill upon patient request if the prescription is... Start Date: 11/16/21 Status: Ordered LORazepam 0.5 mg oral tablet See Instructions, TAKE 1 TABLET BY MOUTH TWO TIMES A DAY NEEDED FOR ANXIETY, # 28 tablet, 2 Refills, Maintenance, 05/06/20 15:17:00 EDT, [facility], 155, cm, 05/03/20 [...] Refills, Maintenance, 11/16/21 23:51:00 EDT, DIS Tablet, [facility], Partial fill upon patient request if the prescription is for a schedule II o... Start Date: 11/16/21 Status: Ordered Peridex 0.12% liquid 15 mL = 0.018 Gm, By Mouth, 2 times a day, # 420 mL, 0 Refills, Maintenance, 01/18/22 8:47:00 EDT, Liquid, [facility], Partial fill [...] 3 Refills, Maintenance, 10/25/21 11:13:00 EDT, Capsule, [facility], [...] Active Bilateral leg pain(Confirmed) Active *BHN/CCA/CC-[facility]- [phone]/Health fdc, active care coordination(Confirmed) Active POTS (postural orthostatic t achycardia syndrome)(Confirmed) Active Medulloblastoma(Confirmed) Active RUQ pain(Confirmed) Active Social History Social History Type Response Smoking Status Never smoker; Tobacc o user in household: No entered on: 04/11/16 Sex Female
--- OUTSIDE RECORDS SUMMARY | 2024-04-27 10:17 | XMS_ITS | Continuity of Care Document ---
Author Organization [facility] Address [address] [place] [address]- Care Team Providers Care Hazardous Waste Material Technician Name Role Phone Sisi Hernandez MD Primary Care Physician [phone] Encounter [facility] [place] Date(s): 10/02/22 - 11/07/[address] [address] Attending Physician: Sisi Hernandez MD Admitting Physician: [...] 13:12:00 EDT, Aerosol, Route to Pharmacy Electronically, [id number], [facility], ONLY ALBUTEROL HFA, CANCEL... Start Date: 02/15/22 Stop Date: 02/10/23 Status: Ordered Colace sodium 100 mg oral capsule 100 mg, 1, capsule, By Mouth, 2 times a day, PRN, # 30 capsule, Refills 0, Tot. Refills 0, Maintenance, for constipation, 07/31/22 11:03:00 EST, Route to Pharmacy Electronically, [facility] 3, Partial fill upon [...] 09/04/22 8:50:00 EST, Solution, [facility] 3, 155, cm, 08/14/22 13:52:00 EST, Height, 68.1, kg, 08/14/22 13:52:00 EST, Dry Weight Start Date: 09/04/22 Status: Ordered dextroamphetamine 10 mg oral capsule, extended release See Instructions, start 1 capsule By Mouth Daily in AM. Take second capsule if needed, # 60 capsule, 0 Refills, Maintenance, 10/17/22 14:31:00 EDT, ER Capsule, [facility], [...] Refills, Maintenance, 02/15/22 13:10:00 EDT, Aerosol, [facility], new dosage, 155, [...] 07/31/22 11:03:00 EST, Route to Pharmacy Electronically, [facility] 3, Partial fill upon patient request if the prescription is for a schedule... Start Date: 07/31/22 Status: Ordered LORazepam 0.5 mg oral tablet See Instructions, TAKE 1 TABLET BY MOUTH TWO TIMES A DAY NEEDED FOR ANXIETY, # 28 tablet, 2 Refills, Maintenance, 06/06/22 10:45:00 EST, [facility] 3, 155, cm, 04/06/22 14:56:00 EDT, [...] Refills, Maintenance, 08/01/22 6:06:00 EST, REC Powder, [facility] 3, Partial fill upon patient [...] 0 Refills, Maintenance, 08/01/22 6:06:00 EST, Tablet, [facility] 3, Partial fill upon patient request if the prescription is for a schedule II opioid drug., 155, cm,... Start Date: 08/01/22 Status: Ordered Symbicort 160mcg/4.5mcg Inhaler 2, puffs, Inhalation, 2 times a day, # 3 each, Refills 5, Tot. Refills 5, Maintenance, 09/27/22 12:00:00 EST, Aerosol, Route to Pharmacy Electronically, [id number], [facility], replaces flovent inhaler, 155, [...] 3 Refills, Maintenance, 06/05/22 14:27:00 EST, Capsule, [facility] [...] Bilateral leg pain Confirmed Active *BHN/CCA/CC-[facility]- [phone]/Health nursing home, active care coordination Confirmed Active [...] Physician Member Role: PCP Address: Address: [address] [place] [address] Name: Lizzette To RN Position: [facility] RN Member Role: Primary Care Nurse Name: Karolina Adkins MD Position: [facility] Physician -Physician Practices Member Role: Lifetime Consulting Physician Address: Address: [address] [place] [address] [facility] [address] Name: Isadora Godfrey RN Position: [facility] RN Member Role: Primary Care Nurse Name: Rossy Rowe RN Position: [facility] SN RN Member Role: Primary Care Nurse Name: Cindi Hayward Position: [facility] RN Member Role: Primary Care Nurse Name: Bela Mcmahon RN Position: [facility] Hospital Storage Administrator Member Role: Primary Care Nurse Name: Nicole Hernandez RN Position: [facility] RN Member Role: Primary Care Nurse Name: Zac Castillo RN Position: [facility] ED RN W/OE and Tasks Member Role: Primary Care Nurse Name: Jeanne Grande RN Position: [facility] RN Member Role: Primary Care Nurse Care Team Related Persons Name: BEAR TURNER Address: [address] [address] Name: BEAR TURNER SECONDARY Address: home [address] [place] [address] Name: ISATU ECKERT Address: [place] [address] Name: ISAAC VERDE PRIMARY Address: [address] [address] Name: ADRY DURANT Name: PANCHO JEROME Address: [place] [address]
--- OUTSIDE RECORDS SUMMARY | 2024-04-27 10:17 | XMS_ITS | Continuity of Care Document ---
Author Organization [facility] Address [address] [place] [address]- Care Team Providers Care Valve Steamer Name Role Phone Sisi Hernandez MD Primary Care Physician Encounter [facility] [place] Date(s): 10/05/21 - 10/12/21 [facility] [address] [place], [place] [address] Attending Physician: Sisi Hernandez MD Allergies, [...] 0 Refills, Maintenance, 09/27/21 15:38:00 EST, Tablet, [facility], Partial fill upon patient [...] Refills, Maintenance, 09/27/21 15:31:00 EST, ER Capsule, [facility], Partial fill upon patient r... Start Date: 09/27/21 Status: Ordered albuterol CFC free 90 mcg/inh inhalation aerosol 2, puffs, Inhalation, Every 6 hours, PRN, # 2 each, Refills 11, Tot. Refills 11, Maintenance, 10/05/21 9:52:00 EST, Aerosol, Route to Pharmacy Electronically, [id number], [facility], ONLY ALBUTEROL HFA, CANCEL [...] Refills, Maintenance, 10/03/21 12:18:00 EST, Solution, [facility] 3, 155, cm, 09/27/21 15:08:00 EST, Height, 68.5, kg, 06/03/20 13:18:00 EST, Dry Weight Start Date: 10/03/21 Status: Ordered cyanocobalamin 1000 mcg/ml injectable solution 1 mL = 1,000 mcg, Intramuscular, Every 30 days, # 3 mL, 6 Refills, Maintenance, 06/15/20 11:56:00 EST, Solution, [facility] 3, 155, cm, 06/03/20 13:15:00 EST, Height, 68.5, kg, 06/03/20 13:18:00 EST, Dry Weight Start Date: 06/15/20 Status: Ordered Diflucan 150 mg oral tablet 1 tablet = 150 mg, By Mouth, Every 48 hours, # 2 tablet, 0 Refills, Soft Stop, 07/31/21 10:46:00 EST, Tablet, [facility], Partial fill upon patient request if the prescription is for a schedule II opioid drug., 155, cm, 06/09/21 14:21:00... Start Date: 07/31/21 Status: Ordered dilTIAZem 240 mg/24 hours oral tablet, extended release 1 tablet = 240 mg, By Mouth, Daily, FURTHER REFILLS BY LINUX SYSTEM ADMINISTRATOR, # 90 tablet, 0 Refills, Maintenance, 11/27/19 8:57:00 EDT, ER Tablet, [facility], 155, cm, 10/07/19 12:25:00 EDT, Height, 63, kg, 07/01/19 19:58:00 EST, Dry Weight Start Date: 11/27/19 Status: Ordered Flovent HFA 110 mcg/inh inhalation aerosol 2 puffs, Inhalation, 2 times a day, # 12 Gm, 0 Refills, Maintenance, 10/05/21 13:23:00 EST, Aerosol, [facility], Partial fill upon patient [...] Maintenance, 05/06/20 15:17:00 EDT, [facility] 3, 155, cm, 05/03/20 [...] Maintenance, 08/04/20 12:39:00 EST, Capsule, [facility], Partial fill upon patient [...] Active Bilateral leg pain(Confirmed) Active *BHN/CCA/CC-[facility]- [phone]/Health [facility], active care coordination(Confirmed) Active POTS (postural orthostatic t achycardia syndrome)(Confirmed) Active Medulloblastoma(Confirmed) Active RUQ pain(Confirmed) Active Social History Social History Type Response Smoking Status Never smoker; Tobacc o user in household: No entered on: 04/11/16 Sex Female
--- OUTSIDE RECORDS SUMMARY | 2024-04-27 10:17 | XMS_ITS | Continuity of Care Document ---
Author Organization [facility] Address [address] [place] [address]- Care Team Providers Care Wet Room Worker Name Role Phone Sisi Hernandez MD Primary Care Physician Encounter [facility] Date(s): 08/29/23 - 09/28/23 [facility] [address] [place] [address]- Attending Physician: Anegl Gomez Admitting Physician: Angel Gomez Referring Physician: [...] Refills, Maintenance, 12/21/22 14:40:00 EDT, ER Capsule, [facility], Partial fill upon patient request if the prescription is for a schedule II opioid drug., 155, cm, 12/05/22 11:... Start Date: 12/21/22 Status: Ordered albuterol CFC free 90 mcg/inh inhalation aerosol 2, puffs, Inhalation, Every 6 hours, PRN, # 2 each, Refills 11, Tot. Refills 11, Maintenance, 02/15/22 13:12:00 EDT, Aerosol, Route to Pharmacy Electronically, [id number], [facility], ONLY ALBUTEROL HFA, CANCEL... Start Date: 02/15/22 Stop Date: 02/10/23 Status: Ordered Colace sodium 100 mg oral capsule 100 mg, 1, capsule, By Mouth, 2 times a day, PRN, # 180 capsule, Refills 3, Tot. Refills 3, Maintenance, for constipation, 08/09/23 14:49:00 EST, Route to Pharmacy Electronically, [facility], Partial fill [...] 6 Refills, Maintenance, 08/07/23 13:45:00 EST, Solution, [facility], 155, cm, 11/10/23 20:58:00 EST, Height, 68.3, kg, 06/07/23 20:58:00 EST, Dry Weight Start Date: 08/07/23 Status: Ordered esomeprazole 40 mg oral enteric coated capsule TAKE 1 CAPSULE BY MOUTH EVERY DAY Start Date: 07/12/22 Status: Ordered Flovent HFA 220 mcg/inh inhalation aerosol 2 puffs, Inhalation, 2 times a day, new dosage, # 12 Gm, 0 Refills, Maintenance, 02/15/22 13:10:00 EDT, Aerosol, [facility], new dosage, 155, [...] Route to Pharmacy Electronically, [facility] 3, Partial fill upon patient request if the prescription is for a schedule... Start Date: 07/31/22 Status: Ordered LORazepam 0.5 mg oral tablet See Instructions, TAKE 1 TABLET BY MOUTH TWO TIMES A DAY NEEDED FOR ANXIETY, # 28 tablet, 2 Refills, Maintenance, 12/05/22 12:25:00 EDT, [facility] 3, 155, cm, 12/05/22 11:40:00 [...] 08/01/22 6:06:00 EST, Tablet, [facility] 3, Partial fill upon patient request if the prescription is for a schedule II opioid drug., 155, cm,... Start Date: 08/01/22 Status: Ordered Symbicort 160mcg/4.5mcg Inhaler 2, puffs, Inhalation, 2 times a day, # 3 each, Refills 5, Tot. Refills 5, Maintenance, 09/27/22 12:00:00 EST, Aerosol, Route to Pharmacy Electronically, [id number], [facility], replaces flovent inhaler, 155, cm,... Start [...] 10/02/23 15:40:00 EST, 09/25/23 15:40:00 EST, Tablet, [facility], Partial fill upon patient request if the prescription is for a schedule... Start Date: 09/25/23 Stop Date: 10/02/23 Status: Ordered Tylenol 325 mg oral tablet 975 mg, 3, tablet, By Mouth, Every 6 hours, PRN, # 50 tablet, Refills 0, Tot. Refills 0, Maintenance, for pain, 07/31/22 11:03:00 EST, Route to Pharmacy Electronically, [facility], Partial fill upon patient request if the prescription is... Start Date: 07/31/22 Status: Ordered verapamil 240 mg/12 hours oral tablet, extended release TAKE 1 TABLET BY MOUTH DAILY. Start Date: 02/05/23 Status: Ordered Vitamin C 250 mg oral tablet, chewable 1 tablet = 250 mg, Chew, 2 times a day, # 180 tablet, 3 Refills, Maintenance, 08/14/23 13:38:00 EST, Chew Tablet, [facility] 3, Partial fill upon patient request if the prescription is for a schedule II opioid drug., 155, cm, 08/14/23 13:0... Start Date: 08/14/23 Status: Ordered Vitamin D3 50,000 intl units oral capsule 1 capsule = 1,250 mcg, By Mouth, Every week, # 13 capsule, 1 Refills, Maintenance, 05/17/23 17:07:00 EDT, Capsule, [facility], Partial [...] Bilateral leg pain Confirmed Active *BHN/CCA/CC-[facility]- [phone]/Health [facility], active care coordination Confirmed Active POTS (postural orthostatic tachycardia syndrome) Confirmed Active Medulloblastoma Confirmed Active RUQ pain Confirmed Active Tachy-sharmin syndrome Confirmed Active Social History Social History Type Response Smoking Status Never smoker; Tobacc o user in household: No entered on: 04/11/16 Sex Cardiology * Event Display: Non Cardiovascular Results Authored Date: * Event Display: Cardiology Office Note, Non- Authored Date: Patient Care team information Care Team Personnel Name: Vidhya Grace RN Position: [facility] RN Member Role: Primary Care Nurse Name: Sisi Hernandez MD Position: [facility] Physician - Primary Care Member Role: PCP Address: Address: [address] [place] [id number] Name: Lizzette To RN Position: [facility] SN RN Member Role: Primary Care Nurse Name: Karolina Adkins MD Position: [facility] Physician - Primary Care Member Role: Lifetime Consulting Physician Address: Address: [address] [place] [address] [facility] [place], [place] [address] Name: Isadora Godfrey RN Position: [facility] RN Member Role: Primary Care Nurse Name: Rossy Rowe RN Position: [facility] SN RN Member Role: Primary Care Nurse Name: Cindi Hayward RN Position: [facility] RN Member Role: Primary Care Nurse Name: Bela Mcmahon RN Position: [facility] Hospital Electronic Security Specialist Member Role: Primary Care Nurse Name: [...] Related Persons Name: BEAR TURNER Address: home [address] [place] [address] Name: BEAR TURNER SECONDARY Address: home [address] [place] [address] Name: ISATU ECKERT Address: [place] [address] Name: ISAAC VERDE PRIMARY Address: home [address] [place] [address] Name: ADRY DURANT Name: PANCHO JEROME Address: [place] [address]
--- OUTSIDE RECORDS SUMMARY | 2024-04-27 10:18 | XMS_ITS | Continuity of Care Document ---
Author Organization [facility] Address [address] [place] [address]- Care Team Providers Care Swimming Pool Serviceperson Name Role Phone Mary KEATING, Sisi Almanza Primary Care Physician [place] [facility] [place]s): 01/23/24 - 02/22/24 [facility] [address] [place], [place] [address] Allergies, Adverse Reactions, Alerts [...] 13:12:00 EDT, Aerosol, Route to Pharmacy Electronically, [id number], [facility], ONLY ALBUTEROL HFA, CANCEL... Start Date: 02/15/22 Stop Date: 02/10/23 Status: Ordered Colace sodium 100 mg oral capsule 100 mg, 1, capsule, By Mouth, 2 times a day, PRN, # 180 capsule, Refills 3, Tot. Refills 3, Maintenance, for constipation, 08/09/23 14:49:00 EST, Route to Pharmacy Electronically, [facility] [...] Refills, Maintenance, 02/06/24 12:13:00 EDT, Solution, [facility], dose change, 155, cm, [...] 5 Refills, Maintenance, 11/22/23 15:46:00 EDT, [facility], Partial fill upon patient request if... Start Date: 11/22/23 Status: Ordered ketoconazole 2% topical shampoo 1 application, Topically, Once, Apply 5 to 10 mL to wet scalp, lather, leave on 3 to 5 minutes, andrinse; apply weekly for 2 to 4 weeks., # 120 mL, 4 Refills, Soft Stop, 11/25/23 12:40:00 EDT, Shampoo, [facility], Partial fill upon pat... Start Date: 11/25/23 Status: Ordered LORazepam 0.5 mg oral tablet See Instructions, TAKE 1 TABLET BY MOUTH TWO TIMES A DAY NEEDED FOR ANXIETY, # 28 tablet, 2 Refills, Maintenance, 02/06/24 12:19:00 EDT, [facility], 155, cm, 02/06/24 [...] Refills, Maintenance, 08/01/22 6:06:00 EST, Tablet, [facility], Partial fill upon patient request if the prescription is for a schedule II opioid drug., 155, cm,... Start Date: 08/01/22 Status: Ordered Symbicort 160mcg/4.5mcg Inhaler 2, puffs, Inhalation, 2 times a day, # 3 each, Refills 5, Tot. Refills 5, Maintenance, 02/06/24 12:14:00 EDT, Aerosol, Route to Pharmacy Electronically, [id number], [facility], replaces flovent inhaler, 155, cm,... [...] Maintenance, 08/14/23 13:38:00 EST, Chew Tablet, [facility], Partial fill upon patient request if the prescription is for a schedule II opioid drug., 155, cm, 08/14/23 13:0... Start Date: 08/14/23 Status: Ordered Vitamin D3 50,000 intl units oral capsule 1 capsule = 1,250 mcg, By Mouth, Every week, # 13 capsule, 1 Refills, Maintenance, 05/17/23 17:07:00 EDT, Capsule, [facility], Partial [...] Refills, Maintenance, 11/01/23 14:07:00 EDT, Capsule, [facility], Partial fill u... Start [...] Memory change Confirmed Active *N/CCA/CC-[facility]- [phone]/[facility], active care coordination Confirmed Active POTS (postural orthostatic tachycardia syndrome) Confirmed Active 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 Social History Social History Type Response Smoking Status Never smoker; Tobacc o user in household: No entered on: 04/11/16 Sex Patient Care team information Care Team Personnel Name: Vidhya Grace RN Position: [facility] RN Member Role: Primary Care Nurse Name: Sisi Hernandez MD Position: [facility] Physician - Primary Care Member Role: PCP Address: Address: [address] [place] [address] Name: Lizzette To RN Position: [facility] RN Member Role: Primary Care Nurse Name: Karolina Adkins MD Position: [facility] Physician - Primary Care Member Role: Lifetime Consulting Physician Address: Address: [address] [place] [address] [facility] [address] Name: Isadora Godfrey RN Position: [facility] RN Member Role: Primary Care Nurse Name: Rossy Rowe RN Position: [facility] SN RN Member Role: Primary Care Nurse Name: Cindi Hayward RN Position: [facility] RN Member Role: Primary Care Nurse Name: Bela Mcmahon RN Position: [facility] Hospital Chemist Steroids Member Role: Primary Care Nurse Name: Nicole Hernandez RN Position: [facility] RN Member Role: Primary Care Nurse Name: Zac Castillo RN Position: [facility] ED RN W/OE and Tasks Member Role: Primary Care Nurse Name: Jeanne Grande RN Position: [facility] RN Member Role: Primary Care Nurse Care Team Related Persons Name: JOHNNYBEAR Address: home [address] [place] [address] Name: BEAR TURNER SECONDARY Address: home [address] [place] [address] Name: ISATU ECKERT Address: [place] [address] Name: ISAAC VERDE PRIMARY Address: [address] [address] Name: ADRY DURANT Name: PANCHO [place] Address: [place] [address]
--- OUTSIDE RECORDS SUMMARY | 2024-04-27 10:18 | XMS_ITS | Continuity of Care Document ---
Author Organization [facility] ter Address [address] [place] [address]- Care Team Providers Care Sanding Line Operator Name Role Phone Sisi Hernandez MD Primary Care Physician [phone] Encounter [facility] Date(s): 07/11/19 - 09/17/[address] [address]- [facility] Attending Physician: Danuta Nuñez MD Admitting Physician: Danuta Nuñez MD Referring Physician: Wanda Dominguez MD Allergies, Adverse Reactions, Alerts Substance Reaction [...] 12:10:52 EDT, Aerosol, Route to Pharmacy Electronically, [id number], [facility] Start Date: 03/10/19 Stop Date: 09/06/19 Status: Ordered Carafate 1 gm/10 ml oral suspension 10 mL = 1 Gm, By Mouth, 3 times a day before meals and bedtime, # 1,200 mL, 0 Refills, Maintenance,07/31/19 15:42:00 EST, [facility], CAN LET ME KNOW IF NOT [...] 3 Refills, Maintenance, 07/31/19 15:47:00 EST, Solution, [facility], 155, cm, 07/31/19 15:01:00 EST, Height, 63, kg, 07/01/19 19:58:00 EST, Dry Weight Start Date: 07/31/19 Status: Ordered dicyclomine 10 mg oral capsule 1 capsule = 10 mg, By Mouth, 3 times a day, PRN intestinal spasm, # 21 capsule, 3 Refills, Maintenance, 07/31/19 15:42:00 EST, Capsule, [facility], 155, cm, 07/31/19 15:01:00 EST, Height, 63, kg, 07/01/19 19:58:00 EST, Dry Weight Start Date: 07/31/19 Stop Date: 08/28/19 Status: Ordered famotidine 40 mg oral tablet 1 tablet = 40 mg, By Mouth, Daily at bedtime, # 30 tablet, 0 Refills, Maintenance, 07/21/19 13:46:00 EST, Tablet, [facility], 155, cm, 07/21/19 13:05:00 [...] 15:30:53 EST, Aerosol, Route to Pharmacy Electronically, [id number]... Start Date: 09/12/18 Stop Date: 02/09/19 Status: [...] Refills, Maintenance, 07/21/19 13:36:00 EST, CR Capsule, [facility], lower dose for a [...] bowel syndrome)(Confirmed) 01/23/16 Active Near syncope(Confirmed) Active *[facility]-[phone]/Health longterm, active care coordination(Confirmed) Active [facility] Care [facility] Packaging Engineer [phone](Confirmed) Active POTS (postural orthostatic t achycardia syndrome)(Confirmed) Active Medulloblastoma(Confirmed) Active RUQ pain(Confirmed) Active Social History Social History Type Response Smoking Status Never smoker; Tobacc o user in household: No entered on: 04/11/16 Sex
--- OUTSIDE RECORDS SUMMARY | 2024-04-27 10:18 | XMS_ITS | Continuity of Care Document ---
Author Organization [facility] Address [address], [address] [place] [address]- Care Team Providers Care Railroad Car Inspector Name Role Phone Sisi Hernandez MD Primary Care Physician [phone] [id number] Date[facility] 12/08/21 - 02/16/22 [facility] [address] [facility] [address] [place], [place] [address] Attending Physician: Abby Villalpando MD Allergies, Adverse [...] 11/16/21 23:51:00 EDT, Route to Pharmacy Electronically, [facility], Partial fill upon patient request if the presc... Start Date: 11/16/21 Status: Ordered albuterol CFC free 90 mcg/inh inhalation aerosol 2, puffs, Inhalation, Every 6 hours, PRN, # 2 each, Refills 11, Tot. Refills 11, Maintenance, 02/15/22 13:12:00 EDT, Aerosol, Route to Pharmacy Electronically, [id number], [facility], ONLY ALBUTEROL HFA, CANCEL... Start [...] 12:18:00 EST, Solution, [facility] 3, 155, cm, 09/27/21 15:08:00 EST, Height, 68.5, kg, 06/03/20 13:18:00 EST, Dry Weight Start Date: 10/03/21 Status: Ordered cyanocobalamin 1000 mcg/ml injectable solution 1 mL = 1,000 mcg, Intramuscular, Every 30 days, # 3 mL, 6 Refills, Maintenance, 06/15/20 11:56:00 EST, Solution, [facility] 3, 155, cm, 06/03/20 13:15:00 EST, Height, 68.5, kg, 06/03/20 13:18:00 EST, Dry Weight Start Date: 06/15/20 Status: Ordered dilTIAZem 240 mg/24 hours oral tablet, extended release 1 tablet = 240 mg, By Mouth, Daily, FURTHER REFILLS BY LABOR RELATIONS TEACHER, # 90 tablet, 0 Refills, Maintenance, 11/27/19 8:57:00 EDT, ER Tablet, [facility] 3, 155, cm, 10/07/19 12:25:00 EDT, Height, 63, kg, 07/01/19 19:58:00 EST, Dry Weight Start Date: 11/27/19 Status: Ordered Flovent HFA 220 mcg/inh inhalation aerosol 2 puffs, Inhalation, 2 times a day, new dosage, # 12 Gm, 0 Refills, Maintenance, 02/15/22 13:10:00 EDT, Aerosol, [facility], new dosage, 155, cm, 12/08/21 [...] 11/16/21 23:51:00 EDT, Route to Pharmacy Electronically, [facility], Partial fill upon patient request if the prescription is... Start Date: 11/16/21 Status: Ordered LORazepam 0.5 mg oral tablet See Instructions, TAKE 1 TABLET BY MOUTH TWO TIMES A DAY NEEDED FOR ANXIETY, # 28 tablet, 2 Refills, Maintenance, 05/06/20 15:17:00 EDT, [facility], 155, cm, 05/03/20 18:55:00 [...] Refills, Maintenance, 11/16/21 23:51:00 EDT, DIS Tablet, [facility], Partial fill upon patient request if the prescription is for a schedule II o... Start Date: 11/16/21 Status: Ordered Peridex 0.12% liquid 15 mL = 0.018 Gm, By Mouth, 2 times a day, # 420 mL, 0 Refills, Maintenance, 01/18/22 8:47:00 EDT, Liquid, [facility], Partial fill [...] Active Bilateral leg pain(Confirmed) Active *BHN/CCA/CC-[facility]- [phone]/Health assisted, active care coordination(Confirmed) Active POTS (postural orthostatic t achycardia syndrome)(Confirmed) Active Medulloblastoma(Confirmed) Active RUQ pain(Confirmed) Active Social History Social History Type Response Smoking Status Never smoker; Tobacc o user in household: No entered on: 04/11/16 Sex Female
--- OUTSIDE RECORDS SUMMARY | 2024-04-27 10:18 | XMS_ITS | Continuity of Care Document ---
Author Organization [facility] Address [address] [place] [address]- Care Team Providers Care Lsw Name Role Phone Sisi Hernandez MD Primary Care Physician [phone] Encounter [facility] [place] Date(s): 11/09/22 - 12/09/22 [facility] [address] [place], [place] [address] Allergies, Adverse [...] 13:12:00 EDT, Aerosol, Route to Pharmacy Electronically, [id number], [facility], ONLY ALBUTEROL HFA, CANCEL... Start Date: 02/15/22 Stop Date: 02/10/23 Status: Ordered Colace sodium 100 mg oral capsule 100 mg, 1, capsule, By Mouth, 2 times a day, PRN, # 30 capsule, Refills 0, Tot. Refills 0, Maintenance, for constipation, 07/31/22 11:03:00 EST, Route to Pharmacy Electronically, [facility], Partial fill upon patient request if [...] 6 Refills, Maintenance, 09/04/22 8:50:00 EST, Solution, [facility], 155, cm, 08/14/22 13:52:00 EST, Height, 68.1, kg, 08/14/22 13:52:00 EST, Dry Weight Start Date: 09/04/22 Status: Ordered esomeprazole 40 mg oral enteric coated capsule TAKE 1 CAPSULE BY MOUTH EVERY DAY Start Date: 07/12/22 Status: Ordered Flovent HFA 220 mcg/inh inhalation aerosol 2 puffs, Inhalation, 2 times a day, new dosage, # 12 Gm, 0 Refills, Maintenance, 02/15/22 13:10:00 EDT, Aerosol, [facility], new dosage, 155, cm, 12/08/21 10:46:00 [...] Maintenance, 12/05/22 12:25:00 EDT, [facility], [...] Refills, Maintenance, 08/01/22 6:06:00 EST, REC Powder, [facility] 3, Partial fill upon patient request [...] 0 Refills, Maintenance, 08/01/22 6:06:00 EST, Tablet, [facility], Partial fill upon patient request if the prescription is for a schedule II opioid drug., 155, cm,... Start Date: 08/01/22 Status: Ordered Symbicort 160mcg/4.5mcg Inhaler 2, puffs, Inhalation, 2 times a day, # 3 each, Refills 5, Tot. Refills 5, Maintenance, 09/27/22 12:00:00 EST, Aerosol, Route to Pharmacy Electronically, [id number], [facility], replaces flovent inhaler, 155, cm,... Start [...] 3 Refills, Maintenance, 06/05/22 14:27:00 EST, Capsule, [facility], [...] Bilateral leg pain Confirmed Active *BHN/CCA/CC-Matias Vela- [phone]/Health chcf, active care coordination Confirmed Active POTS [...] Care Physician Member Role: PCP Address: Address: [address] [place] [id number]- [place] Name: Lizzette To RN Position: [facility] RN Member Role: Primary Care Nurse Name: Karolina Adkins MD Position: [facility] Physician -Physician Practices Member Role: Lifetime Consulting Physician Address: Address: [address] [place] [address] [facility] [place] [address]- Name: Isadora Godfrey RN Position: [facility] RN Member Role: Primary Care Nurse Name: Rosys Rowe RN Position: [facility] SN RN Member Role: Primary Care Nurse Name: Cindi Hayward Position: [facility] RN Member Role: Primary Care Nurse Name: Bela Mcmahon RN Position: [facility] Hospital Rough And Truing Machine Operator Member Role: Primary Care Nurse [...] Related Persons Name: TURNERBEAR Address: home [address] [place] [id number] Name: BEAR TURNER SECONDARY Address: home [address] [place] [address] Name: ISATU ECKERT Address: [place] [address] Name: ISAAC VERDE PRIMARY Address: home [address] [place] [address] Name: ADRY DURANT Name: PANCHO JEROME Address: [place] [address]
--- OUTSIDE RECORDS SUMMARY | 2024-04-27 10:18 | XMS_ITS | Continuity of Care Document ---
Author Organization [facility] Address [address] [place] [address]- Care Team Providers Care Hydroelectric Component Machinist Name Role Phone Sisi Hernandez MD Primary Care Physician [place] [facility] [place] - 05/27/21 [facility] [address] [address] Allergies, Adverse Reactions, Alerts Substance Reaction [...] 8:50:00 EDT, Aerosol, Route to Pharmacy Electronically, [id number], [facility], 155, cm, 06/03/20 13:15:00 [...] 6 Refills, Maintenance, 06/15/20 11:56:00 EST, Solution, [facility], 155, cm, 06/03/20 13:15:00 EST, Height, 68.5, kg, 06/03/20 13:18:00 EST, Dry Weight Start Date: 06/15/20 Status: Ordered dilTIAZem 240 mg/24 hours oral tablet, extended release 1 tablet = 240 mg, By Mouth, Daily, FURTHER REFILLS BY MOLDING MACHINE OPERATOR HELPER, # 90 tablet, 0 Refills, Maintenance, 11/27/19 8:57:00 EDT, ER Tablet, [facility], 155, cm, 10/07/19 12:25:00 [...] tablet, 2 Refills, Maintenance, 05/06/20 15:17:00 EDT, [facility], 155, cm, 05/03/20 18:55:00 EDT, Height, [...] 15:30:53 EST, Aerosol, Route to Pharmacy Electronically, [id number]... Start Date: 09/12/18 Stop Date: 02/09/19 Status: Ordered ProAir HFA 90 mcg/inh inhalation aerosol with adapter 2, puffs, Inhalation, Every 4 hours, PRN, use with spacer chamber BRAND NAME MEDICALLY NECESSARY, #8.5 Gm, Refills 0, Tot. Refills 0, Maintenance, 12/05/20 15:38:00 EDT, Aerosol, Route to Pharmacy Electronically, [id number]... Start Date: 12/05/20 Status: Ordered Sunosi 75 [...] 2 Refills, Maintenance, 08/04/20 12:39:00 EST, Capsule, [facility], Partial fill upon patient request if [...] Active Bilateral leg pain(Confirmed) Active *BHN/CCA/CC-Matias Vela- [phone]/Health [facility], active care coordination(Confirmed) Active POTS (postural orthostatic t achycardia syndrome)(Confirmed) Active Medulloblastoma(Confirmed) Active RUQ pain(Confirmed) Active Viral URI(Confirmed) Active Social History Social History Type Response Smoking Status Never smoker; Tobacc o user in household: No entered on: 04/11/16 Sex
--- OUTSIDE RECORDS SUMMARY | 2024-04-27 10:18 | XMS_ITS | Continuity of Care Document ---
Author Organization [facility] Address [address], [address] [place] [address]- Care Team Providers Care Roll Plugger Machine Operator Name Role Phone Sisi Hernandez MD Primary Care Physician Encounter [facility] [place] Date(s): 12/17/22 - 01/16/23 [facility] [place] [facility] [address], [address] [place], [place] [address] Allergies, Adverse Reactions, Alerts Substance [...] Refills, Maintenance, 12/21/22 14:40:00 EDT, ER Capsule, [facility], Partial fill upon patient request if the prescription is for a schedule II opioid drug., 155, cm, 12/05/22 11:... Start Date: 12/21/22 Status: Ordered albuterol CFC free 90 mcg/inh inhalation aerosol 2, puffs, Inhalation, Every 6 hours, PRN, # 2 each, Refills 11, Tot. Refills 11, Maintenance, 02/15/22 13:12:00 EDT, Aerosol, Route to Pharmacy Electronically, [id number], [facility], ONLY ALBUTEROL HFA, CANCEL... Start Date: 02/15/22 Stop Date: 02/10/23 Status: Ordered Colace sodium 100 mg oral capsule 100 mg, 1, capsule, By Mouth, 2 times a day, PRN, # 30 capsule, Refills 0, Tot. Refills 0, Maintenance, for constipation, 07/31/22 11:03:00 EST, Route to Pharmacy Electronically, [facility], Partial fill upon patient request if [...] 6 Refills, Maintenance, 09/04/22 8:50:00 EST, Solution, [facility], 155, cm, 08/14/22 13:52:00 EST, Height, 68.1, kg, 08/14/22 13:52:00 EST, Dry Weight Start Date: 09/04/22 Status: Ordered esomeprazole 40 mg oral enteric coated capsule TAKE 1 CAPSULE BY MOUTH EVERY DAY Start Date: 07/12/22 Status: Ordered Flovent HFA 220 mcg/inh inhalation aerosol 2 puffs, Inhalation, 2 times a day, new dosage, # 12 Gm, 0 Refills, Maintenance, 02/15/22 13:10:00 EDT, Aerosol, [facility], new dosage, 155, cm, [...] to Pharmacy Electronically, [facility], Partial fill upon patient request if the prescription is for a schedule... Start Date: 07/31/22 Status: Ordered LORazepam 0.5 mg oral tablet See Instructions, TAKE 1 TABLET BY MOUTH TWO TIMES A DAY NEEDED FOR ANXIETY, # 28 tablet, 2 Refills, Maintenance, 12/05/22 12:25:00 EDT, [facility], 155, cm, 12/05/22 11:40:00 EDT, [...] Refills, Maintenance, 08/01/22 6:06:00 EST, REC Powder, [facility], Partial fill upon patient request [...] 0 Refills, Maintenance, 08/01/22 6:06:00 EST, Tablet, [facility] 3, Partial fill upon patient request if the prescription is for a schedule II opioid drug., 155, cm,... Start Date: 08/01/22 Status: Ordered Symbicort 160mcg/4.5mcg Inhaler 2, puffs, Inhalation, 2 times a day, # 3 each, Refills 5, Tot. Refills 5, Maintenance, 09/27/22 12:00:00 EST, Aerosol, Route to Pharmacy Electronically, [id number], [facility], replaces flovent inhaler, [...] 07/31/22 11:03:00 EST, Route to Pharmacy Electronically, [facility], Partial fill upon patient request if the prescription is... Start Date: 07/31/22 Status: Ordered verapamil 240 mg/12 hours oral tablet, extended release TAKE 1 TABLET BY MOUTH DAILY. Start Date: 09/27/22 Status: Ordered Vitamin D3 1000 intl units oral capsule 1 capsule = 25 mcg, By Mouth, Daily, # 100 capsule, 3 Refills, Maintenance, 06/05/22 14:27:00 EST, Capsule, [facility], Partial fill upon patient request if [...] Bilateral leg pain Confirmed Active *BHN/CCA/CC-[facility] Vela- [phone]/Health residential, active care coordination Confirmed Active POTS [...] RN Member Role: Primary Care Nurse Name: Mary KEATING, Sisi Almanza Position: [facility] Physician - Primary Care Member Role: PCP Address: Address: [address] [place] [address] [facility] Name: Lizzette To RN Position: [facility] RN Member Role: Primary Care Nurse Name: Karolina Adkins MD Position: [facility] Physician - Primary Care Member Role: Lifetime Consulting Physician Address: Address: [address] [place] [address] [facility] [place] [facility] Name: Rossy Rowe RN Position: [facility] SN RN Member Role: Primary Care Nurse Name: Cindi Hayward Position: [facility] RN Member Role: Primary Care Nurse Name: Bela Mcmahon RN Position: [facility] Chief Pilot Member Role: Primary Care Nurse Name: Nicole Hernandez RN Position: [facility] RN Member Role: Primary Care Nurse Name: Zac Castillo RN Position: [facility] ED RN W/OE and Tasks Member Role: Primary Care Nurse Name: Jeanne Grande RN Position: [facility] RN Member Role: Primary Care Nurse Care Team Related Persons Name: KATHRYN TURNERY Address: home [address] [place], [place] Name: TURNERBEAR RIBERA SECONDARY Address: home [address], [place] Name: ISATU ECKERT Address: home [place], [place] Name: ISAAC VERDE PRIMARY Address: home [address] [place] [address] Name: ADRY DURANT Name: PANCHO JEROME Address: home [place], [place]
--- OUTSIDE RECORDS SUMMARY | 2024-04-27 10:18 | XMS_ITS | Continuity of Care Document ---
Author Organization [facility] Address [address], [address] [place] [address]- Care Team Providers Care Lease Picker Name Role Phone Sisi Hernandez MD Primary Care Physician [phone] [id number] Date(s): 03/28/23 - 04/27/23 [facility] [employer] [facility] [employer] [facility] [address] [place], [place] [address] Allergies, Adverse Reactions, [...] Refills, Maintenance, 12/21/22 14:40:00 EDT, ER Capsule, [facility], Partial fill upon patient request if the prescription is for a schedule II opioid drug., 155, cm, 12/05/22 11:... Start Date: 12/21/22 Status: Ordered albuterol CFC free 90 mcg/inh inhalation aerosol 2, puffs, Inhalation, Every 6 hours, PRN, # 2 each, Refills 11, Tot. Refills 11, Maintenance, 02/15/22 13:12:00 EDT, Aerosol, Route to Pharmacy Electronically, [id number], [facility], ONLY ALBUTEROL HFA, CANCEL... Start Date: 02/15/22 Stop Date: 02/10/23 Status: Ordered Colace sodium 100 mg oral capsule 100 mg, 1, capsule, By Mouth, 2 times a day, PRN, # 30 capsule, Refills 0, Tot. Refills 0, Maintenance, for constipation, 07/31/22 11:03:00 EST, Route to Pharmacy Electronically, [facility], Partial fill upon patient request if [...] 6 Refills, Maintenance, 09/04/22 8:50:00 EST, Solution, [facility], 155, cm, 08/14/22 13:52:00 EST, Height, 68.1, kg, 08/14/22 13:52:00 EST, Dry Weight Start Date: 09/04/22 Status: Ordered esomeprazole 40 mg oral enteric coated capsule TAKE 1 CAPSULE BY MOUTH EVERY DAY Start Date: 07/12/22 Status: Ordered Flovent HFA 220 mcg/inh inhalation aerosol 2 puffs, Inhalation, 2 times a day, new dosage, # 12 Gm, 0 Refills, Maintenance, 02/15/22 13:10:00 EDT, Aerosol, [facility], new dosage, [...] 07/31/22 11:03:00 EST, Route to Pharmacy Electronically, [facility], Partial fill upon patient request if the prescription is for a schedule... Start Date: 07/31/22 Status: Ordered LORazepam 0.5 mg oral tablet See Instructions, TAKE 1 TABLET BY MOUTH TWO TIMES A DAY NEEDED FOR ANXIETY, # 28 tablet, 2 Refills, Maintenance, 12/05/22 12:25:00 EDT, [facility], 155, cm, 12/05/22 11:40:00 EDT, Height, [...] Maintenance, 08/01/22 6:06:00 EST, REC Powder, [facility] 3, Partial fill upon patient request if [...] Refills, Maintenance, 08/01/22 6:06:00 EST, Tablet, [facility] 3, Partial fill upon patient request if the prescription is for a schedule II opioid drug., 155, cm,... Start Date: 08/01/22 Status: Ordered Symbicort 160mcg/4.5mcg Inhaler 2, puffs, Inhalation, 2 times a day, # 3 each, Refills 5, Tot. Refills 5, Maintenance, 09/27/22 12:00:00 EST, Aerosol, Route to Pharmacy Electronically, [id number], [facility], replaces flovent inhaler, 155, cm,... [...] 07/31/22 11:03:00 EST, Route to Pharmacy Electronically, [facility], Partial fill [...] Confirmed Active Bilateral leg pain Confirmed Active *N/CCA/CC-[facility]- [phone]/Health assisted, active care coordination Confirmed Active POTS (postural orthostatic tachycardia syndrome) Confirmed Active Medulloblastoma Confirmed Active RUQ pain Confirmed Active Tachy-sharmin syndrome Confirmed Active Social History Social History Type Response Smoking Status Never smoker; Tobacc o user in household: No entered on: 04/11/16 Sex Patient Care team information Care Team Personnel Name: Vidhay Grace RN Position: [facility] RN Member Role: Primary Care Nurse Name: Sisi Hernandez MD Position: [facility] Physician - Primary Care Member Role: PCP Address: Address: [address] [place] [id number] Name: Lizzette To RN Position: [facility] RN Member Role: Primary Care Nurse Name: Karolina Adkins MD Position: [facility] Physician - Primary Care Member Role: Lifetime Consulting Physician Address: Address: [address] [place] [address] [facility] [place] [address]- Name: Rossy Rowe RN Position: [facility] SN RN Member Role: Primary Care Nurse Name: Cindi Hayward Position: [facility] RN Member Role: Primary Care Nurse Name: Bela Mcmahon RN Position: [facility] Hospital [employer] Member Role: Primary Care Nurse Name: Nicole Hernandez RN Position: [facility] RN Member Role: Primary Care Nurse Name: Zac Castillo RN Position: [facility] ED RN W/OE and Tasks Member Role: Primary Care Nurse Name: Harjinder MONTELONGO, Jeanne Baker Position: [facility] RN Member Role: Primary Care Nurse Care Team Related Persons Name: BEAR TURNER Address: home [address] [place] [address] Name: BEAR TURNER SECONDARY Address: [address] [address] Name: ISATU ECKERT Address: [place] [address] Name: ISAAC VERDE PRIMARY Address: home [address] [place] [address] Name: ADRY DURANT Name: PANCHO JEROME Address: [place] [address]
--- OUTSIDE RECORDS SUMMARY | 2024-04-27 10:18 | XMS_ITS | Continuity of Care Document ---
Author Organization [facility] Address [address] [place] [address]- Care Team Providers Care Real Estate Legal Assistant Name Role Phone Sisi Hernandez MD Primary Care Physician [phone] Encounter [facility] Date(s): 01/20/21 - 02/19/21 [facility] [address] [place], [place] [address] Allergies, Adverse Reactions, Alerts Substance Reaction [...] 8:50:00 EDT, Aerosol, Route to Pharmacy Electronically, [id number], [facility], 155, cm, 06/03/20 [...] Refills, Maintenance, 06/15/20 11:56:00 EST, Solution, [facility], 155, cm, 06/03/20 13:15:00 EST, Height, 68.5, kg, 06/03/20 13:18:00 EST, Dry Weight Start Date: 06/15/20 Status: Ordered dilTIAZem 240 mg/24 hours oral tablet, extended release 1 tablet = 240 mg, By Mouth, Daily, FURTHER REFILLS BY OVEN PRESS TENDER, # 90 tablet, 0 Refills, Maintenance, 11/27/19 8:57:00 EDT, ER Tablet, [facility], 155, cm, 10/07/19 [...] tablet, 2 Refills, Maintenance, 05/06/20 15:17:00 EDT, [facility], 155, cm, 05/03/20 18:55:00 EDT, [...] 15:30:53 EST, Aerosol, Route to Pharmacy Electronically, [id number]... Start Date: 09/12/18 Stop Date: 02/09/19 Status: Ordered ProAir HFA 90 mcg/inh inhalation aerosol with adapter 2, puffs, Inhalation, Every 4 hours, PRN, use with spacer chamber BRAND NAME MEDICALLY NECESSARY, #8.5 Gm, Refills 0, Tot. Refills 0, Maintenance, 12/05/20 15:38:00 EDT, Aerosol, Route to Pharmacy Electronically, [id number]... Start Date: 12/05/20 Status: Ordered ramelteon 8 mg oral tablet 1 tablet = 8 mg, By Mouth, Daily at bedtime, # 30 tablet, 11 Refills, Maintenance, 12/02/20 8:48:00EDT, [facility] 3, Partial fill upon patient [...] 2 Refills, Maintenance, 08/04/20 12:39:00 EST, Capsule, [facility] 3, Partial fill upon patient [...] Active Bilateral leg pain(Confirmed) Active *BHN/CCA/CC-[facility]- [phone]/Health [facility], active care coordination(Confirmed) Active POTS (postural orthostatic t achycardia syndrome)(Confirmed) Active Medulloblastoma(Confirmed) Active RUQ pain(Confirmed) Active Viral URI(Confirmed) Active Social History Social History Type Response Smoking Status Never smoker; Tobacc o user in household: No entered on: 04/11/16 Sex
--- OUTSIDE RECORDS SUMMARY | 2024-04-27 10:18 | XMS_ITS | Continuity of Care Document ---
Author Organization [facility] Address [address] [place] [address]- Care Team Providers Care Select Banker Name Role Phone Sisi Hernandez MD Primary Care Physician Encounter [facility] [place] Date(s): 06/25/23 - 07/25/23 [facility] [address] [place], [place] [address] Allergies, Adverse Reactions, Alerts [...] Refills, Maintenance, 12/21/22 14:40:00 EDT, ER Capsule, [facility], Partial fill upon patient request if the prescription is for a schedule II opioid drug., 155, cm, 12/05/22 11:... Start Date: 12/21/22 Status: Ordered albuterol CFC free 90 mcg/inh inhalation aerosol 2, puffs, Inhalation, Every 6 hours, PRN, # 2 each, Refills 11, Tot. Refills 11, Maintenance, 02/15/22 13:12:00 EDT, Aerosol, Route to Pharmacy Electronically, [id number], [facility], ONLY ALBUTEROL HFA, CANCEL... Start Date: 02/15/22 Stop Date: 02/10/23 Status: Ordered Colace sodium 100 mg oral capsule 100 mg, 1, capsule, By Mouth, 2 times a day, PRN, # 30 capsule, Refills 0, Tot. Refills 0, Maintenance, for constipation, 07/31/22 11:03:00 EST, Route to Pharmacy Electronically, [facility], Partial fill upon patient [...] 6 Refills, Maintenance, 09/04/22 8:50:00 EST, Solution, [facility], 155, cm, 08/14/22 13:52:00 [...] 0 Refills, Maintenance, 02/15/22 13:10:00 EDT, Aerosol, [facility], new dosage, 155, cm, [...] 07/31/22 11:03:00 EST, Route to Pharmacy Electronically, [facility], Partial fill upon patient request if the prescription is for a schedule... Start Date: 07/31/22 Status: Ordered LORazepam 0.5 mg oral tablet See Instructions, TAKE 1 TABLET BY MOUTH TWO TIMES A DAY NEEDED FOR ANXIETY, # 28 tablet, 2 Refills, Maintenance, 12/05/22 12:25:00 EDT, [facility], 155, cm, 12/05/22 [...] 0 Refills, Maintenance, 08/01/22 6:06:00 EST, Tablet, [facility], Partial fill upon patient request if the prescription is for a schedule II opioid drug., 155, cm,... Start Date: 08/01/22 Status: Ordered Symbicort 160mcg/4.5mcg Inhaler 2, puffs, Inhalation, 2 times a day, # 3 each, Refills 5, Tot. Refills 5, Maintenance, 09/27/22 12:00:00 EST, Aerosol, Route to Pharmacy Electronically, [id number], [facility], replaces flovent inhaler, 155, cm,... [...] 07/31/22 11:03:00 EST, Route to Pharmacy Electronically, [facility], Partial [...] 1 Refills, Maintenance, 05/17/23 17:07:00 EDT, Capsule, [facility], [...] Bilateral leg pain Confirmed Active *N/CCA/CC-[facility]- [phone]/Health [facility], active care coordination [...] Care Member Role: PCP Address: Address: [address] [place] [address] - Name: Lizzette To RN Position: [facility] SN RN Member Role: Primary Care Nurse Name: Karolina Adkins MD Position: [facility] Physician - Primary Care Member Role: Lifetime Consulting Physician Address: Address: [address] [place] [address] [facility] [place] - Name: Isadora Godfrey RN Position: [facility] RN Member Role: Primary Care Nurse Name: Rossy Rowe RN Position: [facility] SN RN Member Role: Primary Care Nurse Name: Cindi Hayward RN Position: [facility] RN Member Role: Primary Care Nurse Name: Bela Mcmahon RN Position: [facility] Waterproofer Helper Member Role: Primary Care Nurse Name: Nicole Hernandez RN Position: [facility] RN Member Role: Primary Care Nurse Name: Zac Castillo RN Position: [facility] ED RN W/OE and Tasks Member Role: Primary Care Nurse Name: Jeanne Grande RN Position: [facility] RN Member Role: Primary Care Nurse Care Team Related Persons Name: BEAR TURNER Address: home [address] [place] [address] Name: BEAR TURNER SECONDARY Address: home [address] [place] [address] Name: ISATU ECKERT Address: [place] [address] Name: ISAAC VERDE PRIMARY Address: home [address] [place] [address] Name: ADRY DURANT Name: PANCHO JEROME Address: [place] [address]
--- OUTSIDE RECORDS SUMMARY | 2024-04-27 10:18 | XMS_ITS | Continuity of Care Document ---
Author Organization [facility] Address [address], 4t [place] [address]- Care Team Providers Care Web Designer Name Role Phone Sisi Hernandez MD Primary Care Physician [place] [facility] [place]14[place]22 - 10/14/22 [facility] [address], 4th [address] [place], [place] [address] Attending Physician: AdmAngel can Admitting Physician: Admtr, Ar8 Referring Physician: Admtr, [...] 13:12:00 EDT, Aerosol, Route to Pharmacy Electronically, [id number], [facility], ONLY ALBUTEROL HFA, CANCEL... Start Date: 02/15/22 Stop Date: 02/10/23 Status: Ordered Colace sodium 100 mg oral capsule 100 mg, 1, capsule, By Mouth, 2 times a day, PRN, # 30 capsule, Refills 0, Tot. Refills 0, Maintenance, for constipation, 07/31/22 11:03:00 EST, Route to Pharmacy Electronically, [facility], Partial fill upon [...] 6 Refills, Maintenance, 09/04/22 8:50:00 EST, Solution, [facility], 155, cm, 08/14/22 13:52:00 [...] Maintenance, 02/15/22 13:10:00 EDT, Aerosol, [facility], new dosage, 155, cm, 12/08/21 [...] 07/31/22 11:03:00 EST, Route to Pharmacy Electronically, [facility], Partial fill upon patient request if the prescription is for a schedule... Start Date: 07/31/22 Status: Ordered LORazepam 0.5 mg oral tablet See Instructions, TAKE 1 TABLET BY MOUTH TWO TIMES A DAY NEEDED FOR ANXIETY, # 28 tablet, 2 Refills, Maintenance, 06/06/22 10:45:00 EST, [facility], [facility], cm, 04/06/22 14:56:00 EDT, Height, [...] Maintenance, 08/01/22 6:06:00 EST, REC Powder, [facility] 3, Partial fill upon patient request [...] Refills, Maintenance, 08/01/22 6:06:00 EST, Tablet, [facility] 3, Partial fill upon patient request if the prescription is for a schedule II opioid drug., 155, cm,... Start Date: 08/01/22 Status: Ordered Symbicort 160mcg/4.5mcg Inhaler 2, puffs, Inhalation, 2 times a day, # 3 each, Refills 5, Tot. Refills 5, Maintenance, 09/27/22 12:00:00 EST, Aerosol, Route to Pharmacy Electronically, [id number], [facility], replaces flovent inhaler, 155, cm,... [...] 07/31/22 11:03:00 EST, Route to Pharmacy Electronically, [facility], Partial fill upon [...] 3 Refills, Maintenance, 06/05/22 14:27:00 EST, Capsule, [facility], Partial [...] Bilateral leg pain Confirmed Active *BHN/CCA/CC-[facility]- [phone]/Health detention, active care coordination Confirmed Active POTS [...] Care Physician Member Role: PCP Address: Address: [address] [place] [id number] Name: Lizzette To RN Position: [facility] RN Member Role: Primary Care Nurse Name: Karolina Adkins MD Position: [facility] Physician -Physician Practices Member Role: Lifetime Consulting Physician Address: Address: [address] [place] [address] [facility] [place], [place] [address] Name: Isadora Godfrey RN Position: [facility] RN Member Role: Primary Care Nurse Name: Rossy Rowe RN Position: [facility] SN RN Member Role: Primary Care Nurse Name: Cindi Hayward Position: [facility] RN Member Role: Primary Care Nurse Name: Bela Mcmahon RN Position: [facility] Hospital Cook Tortilla Member Role: Primary Care Nurse Name: Nicole Hernandez RN Position: [facility] RN Member Role: Primary Care Nurse Name: Zac Castillo RN Position: [facility] ED RN W/OE and Tasks Member Role: Primary Care Nurse Name: Jeanne Grande RN Position: [facility] RN Member Role: Primary Care Nurse Care Team Related Persons Name: KATHRYN TURNERY Address: home [address] [place] [address] Name: BEAR TURNER SECONDARY Address: [address] Name: ISATU ECKERT Address: [place] [address] Name: ISAAC VERDE PRIMARY Address: [address] Name: ADRY DURANT Name: PANCHO JEROME Address: [place] [address]
--- OUTSIDE RECORDS SUMMARY | 2024-04-27 10:18 | XMS_ITS | Continuity of Care Document ---
Author Organization [facility] Address [address] [place] [address]- Care Team Providers Care Materials Engineer Name Role Phone Mary KEATING, Sisi Almanza Primary Care Physician Encounter [facility] Date(s): 10/05/21 - 11/04/21 [facility] [address] [place], [place] [address] Allergies, Adverse Reactions, Alerts [...] 0 Refills, Maintenance, 10/25/21 15:46:00 EDT, Tablet, [facility], Partial [...] Refills, Maintenance, 10/25/21 15:46:00 EDT, ER Capsule, [facility], Partial fill upon patient r... Start Date: 10/25/21 Status: Ordered albuterol CFC free 90 mcg/inh inhalation aerosol 2, puffs, Inhalation, Every 6 hours, PRN, # 2 each, Refills 11, Tot. Refills 11, Maintenance, 10/05/21 9:52:00 EST, Aerosol, Route to Pharmacy Electronically, [id number], [facility], ONLY ALBUTEROL [...] 6 Refills, Maintenance, 10/03/21 12:18:00 EST, Solution, [facility] 3, 155, cm, 09/27/21 15:08:00 EST, Height, 68.5, kg, 06/03/20 13:18:00 EST, Dry Weight Start Date: 10/03/21 Status: Ordered cyanocobalamin 1000 mcg/ml injectable solution 1 mL = 1,000 mcg, Intramuscular, Every 30 days, # 3 mL, 6 Refills, Maintenance, 06/15/20 11:56:00 EST, Solution, [facility] 3, 155, cm, 06/03/20 13:15:00 EST, Height, 68.5, kg, 06/03/20 13:18:00 EST, Dry Weight Start Date: 06/15/20 Status: Ordered dilTIAZem 240 mg/24 hours oral tablet, extended release 1 tablet = 240 mg, By Mouth, Daily, FURTHER REFILLS BY TELEGRAPHIC INSTRUMENT SUPERVISOR, # 90 tablet, 0 Refills, Maintenance, 11/27/19 8:57:00 EDT, ER Tablet, [facility], 155, cm, 10/07/19 12:25:00 EDT, Height, 63, kg, 07/01/19 19:58:00 EST, Dry Weight Start Date: 11/27/19 Status: Ordered Flovent HFA 110 mcg/inh inhalation aerosol 2 puffs, Inhalation, 2 times a day, # 12 Gm, 0 Refills, Maintenance, 10/05/21 13:23:00 EST, Aerosol, [facility], Partial fill [...] 05/06/20 15:17:00 EDT, [facility], [...] 3 Refills, Maintenance, 10/25/21 11:13:00 EDT, Capsule, [facility], Partial [...] Near syncope(Confirmed) Active Bilateral leg pain(Confirmed) Active *BHN/CCA/CC-[facility]- [phone]/Health intermediate, active care coordination(Confirmed) Active POTS (postural orthostatic t achycardia syndrome)(Confirmed) Active Medulloblastoma(Confirmed) Active RUQ pain(Confirmed) Active Social History Social History Type Response Smoking Status Never smoker; Tobacc o user in household: No entered on: 04/11/16 Sex Female
--- OUTSIDE RECORDS SUMMARY | 2024-04-27 10:18 | XMS_ITS | Continuity of Care Document ---
Author Organization [facility] Address [address], [address] [place] [address]- Care Team Providers Care Plasticator Name Role Phone Sisi Hernandez MD Primary Care Physician [phone] [place] [facility] [place](s): 12/08/20 - 01/07/21 [facility] [address], 3rd Floor, [address] [place] [id number] Allergies, Adverse Reactions, Alerts Substance [...] 12/22/20 12:53:00 EDT, Route to Pharmacy Electronically, [facility] Tablet, Partial fill upon patient request if the... Start Date: 12/22/20 Stop Date: 01/21/21 Status: Ordered albuterol CFC free 90 mcg/inh inhalation aerosol 2, puffs, Inhalation, Every 6 hours, PRN, # 2 each, Refills 11, Tot. Refills 11, Maintenance, 12/02/20 8:50:00 EDT, Aerosol, Route to Pharmacy Electronically, [id number], [facility], 155, cm, 06/03/20 [...] 6 Refills, Maintenance, 06/15/20 11:56:00 EST, Solution, [facility], 155, cm, 06/03/20 13:15:00 EST, Height, 68.5, kg, 06/03/20 13:18:00 EST, Dry Weight Start Date: 06/15/20 Status: Ordered dilTIAZem 240 mg/24 hours oral tablet, extended release 1 tablet = 240 mg, By Mouth, Daily, FURTHER REFILLS BY CERTIFIED PROSTHETIST, # 90 tablet, 0 Refills, Maintenance, 11/27/19 8:57:00 EDT, ER Tablet, [facility], 155, cm, 10/07/19 12:25:00 EDT, [...] tablet, 2 Refills, Maintenance, 05/06/20 15:17:00 EDT, [facility], 155, cm, [...] 15:30:53 EST, Aerosol, Route to Pharmacy Electronically, [id number]... Start Date: 09/12/18 Stop Date: 02/09/19 Status: Ordered ProAir HFA 90 mcg/inh inhalation aerosol with adapter 2, puffs, Inhalation, Every 4 hours, PRN, use with spacer chamber BRAND NAME MEDICALLY NECESSARY, #8.5 Gm, Refills 0, Tot. Refills 0, Maintenance, 12/05/20 15:38:00 EDT, Aerosol, Route to Pharmacy Electronically, [id number]... Start Date: 12/05/20 Status: Ordered ramelteon 8 mg oral tablet 1 tablet = 8 mg, By Mouth, Daily at bedtime, # 30 tablet, 11 Refills, Maintenance, 12/02/20 8:48:00EDT, [facility], Partial fill upon [...] 2 Refills, Maintenance, 08/04/20 12:39:00 EST, Capsule, [facility], Partial fill upon [...] Near syncope(Confirmed) Active Bilateral leg pain(Confirmed) Active *BHN/CCA/CC-[facility]- [phone]/Health snf, active care coordination(Confirmed) Active POTS (postural orthostatic t achycardia syndrome)(Confirmed) Active Medulloblastoma(Confirmed) Active RUQ pain(Confirmed) Active Viral URI(Confirmed) Active Social History Social History Type Response Smoking Status Never smoker; Tobacc o user in household: No entered on: 04/11/16 Sex
--- OUTSIDE RECORDS SUMMARY | 2024-04-27 10:18 | XMS_ITS | Continuity of Care Document ---
Author Organization [facility] Address [address], 4t [place] [address]- Care Team Providers Care Grades 1 Thru 6 Home Teacher Name Role Phone Sisi Hernandez MD Primary Care Physician [phone] [id number] - 08[facility]19/[facility] [address], 4th Floor [place], [place] [address] Attending Physician: Abby Villalpando MD Referring Physician: Sisi Hernandez MD Allergies, [...] 13:12:00 EDT, Aerosol, Route to Pharmacy Electronically, [id number], [facility], ONLY ALBUTEROL HFA, CANCEL... Start Date: 02/15/22 Stop Date: 02/10/23 Status: Ordered Colace sodium 100 mg oral capsule 100 mg, 1, capsule, By Mouth, 2 times a day, PRN, # 30 capsule, Refills 0, Tot. Refills 0, Maintenance, for constipation, 07/31/22 11:03:00 EST, Route to Pharmacy Electronically, [facility], Partial fill upon patient request if [...] 6 Refills, Maintenance, 06/06/22 12:08:00 EST, Solution, [facility], 155, cm, 04/06/22 [...] 0 Refills, Maintenance, 02/15/22 13:10:00 EDT, Aerosol, [facility], new dosage, 155, [...] tablet, Refills 0, Tot. Refills 0, Maintenance, 01/03/23 11:03:00 EST, Route to Pharmacy Electronically, [facility], Partial fill upon patient request if the prescription is for a schedule... Start Date: 07/31/22 Status: Ordered LORazepam 0.5 mg oral tablet See Instructions, TAKE 1 TABLET BY MOUTH TWO TIMES A DAY NEEDED FOR ANXIETY, # 28 tablet, 2 Refills, Maintenance, 06/06/22 10:45:00 EST, [facility], 155, cm, 04/06/22 14:56:00 EDT, Height, 67.5, kg, 04/06/22 14:56:00 EDT, Dry Weight Start Date: 06/06/22 Status: Ordered Macrobid macrocrystals-monohydrate 100 mg oral capsule 1 capsule = 100 mg, By Mouth, 2 times a day, for 5 days, # 10 capsule, 0 Refills, Acute 08/21/22 13:08:00 EST, 08/16/22 13:08:00 EST, Capsule, [facility], Partial fill upon patient request if the prescription is for a schedule II opioid... Start Date: 08/16/22 Stop Date: 08/21/22 Status: Ordered Metoprolol Tartrate 50 mg oral tablet 0 Refills, Maintenance, 03/04/20 9:58:00 EDT Start Date: 03/04/20 Status: Ordered MiraLax oral powder for reconstitution = 17 Gm, By Mouth, Daily, dissolve in water before taking, # 255 Gm, 0 Refills, Maintenance, 08/01/22 6:06:00 EST, REC Powder, [facility], Partial fill upon patient [...] 0 Refills, Maintenance, 08/01/22 6:06:00 EST, Tablet, [facility], Partial fill upon patient request if the prescription is for a schedule II opioid drug., 155, cm,... Start Date: 08/01/22 Status: Ordered simethicone 80 mg oral tablet, chewable 80 mg, 1, tablet, Chew, 4 times a day, # 12 tablet, Refills 0, Tot. Refills 0, Maintenance, 07/31/22 11:03:00 EST, Route to Pharmacy Electronically, [facility], Partial fill upon patient [...] 07/31/22 11:03:00 EST, Route to Pharmacy Electronically, [facility], Partial fill upon patient [...] 3 Refills, Maintenance, 06/05/22 14:27:00 EST, Capsule, [facility], Partial fill upon patient [...] Bilateral leg pain Confirmed Active *BHN/CCA/CC-[facility]- [phone]/Health group home, active care coordination Confirmed Active POTS (postural orthostatic tachycardia syndrome) Confirmed Active Medulloblastoma Confirmed Active RUQ pain Confirmed Active Social History Social History Type Response Smoking Status Never smoker; Tobacc o user in household: No entered on: 04/11/16 Sex Female Patient Care team information Care Team Personnel Name: Vidhya Grace RN Position: [facility] RN Member Role: Primary Care Nurse Name: Sisi Hernandez MD Position: [facility] Primary Care Physician Member Role: PCP Address: Address: [address] [place] [id number] Name: Lizzette To RN Position: [facility] RN Member Role: Primary Care Nurse Name: Karolina Adkins MD Position: [facility] Physician -Physician Practices Member Role: Lifetime Consulting Physician Address: Address: [address] [place] [address] [facility] [address] Name: Isadora Godfrey RN Position: [facility] RN Member Role: Primary Care Nurse Name: Rossy Rowe RN Position: [facility] SN RN Member Role: Primary Care Nurse Name: Cindi Hayward Position: [facility] RN Member Role: Primary Care Nurse Name: Bela Mcmahon RN Position: [facility] RN Member Role: Primary Care Nurse Name: Nicole Hernandez RN Position: [facility] RN Member Role: Primary Care Nurse Name: Zac Castillo RN Position: [facility] ED RN W/OE and Tasks Member Role: Primary Care Nurse Name: Jeanne Grande RN Position: [facility] RN Member Role: Primary Care Nurse Care Team Related Persons Name: TURNER BEAR Address: home [address] [place] [address] Name: BEAR TURNER SECONDARY Address: home [address], [place] Name: ISATU ECKERT Address: [place] [address] Name: ISAAC VERDE PRIMARY Address: [address] Name: ADRY DURANT Name: PANCHO JEROME Address: [place] [address]
--- OUTSIDE RECORDS SUMMARY | 2024-04-27 10:18 | XMS_ITS | Continuity of Care Document ---
Author Organization [facility] Address [address] [place] [address]- Care Team Providers Care Hop Trainer Name Role Phone Sisi Hernandez MD Primary Care Physician Encounter [facility] [id number] Date(s): 11/22/23 - 11/29/23 [facility] [address] [place], [place] [address] Encounter Diagnosis Anxiety(Discharge Diagnosis) - 11/22/23 Narcolepsy and cataplexy(Discharge Diagnosis) - 11/22/23 POTS (postural orthostatic tachycardia syndrome)(Discharge Diagnosis) - 11/22/23 B12 deficiency(Discharge Diagnosis) - 11/22/23 Dermatitis(Discharge Diagnosis) - 11/22/23 Spell of change in speech(Discharge Diagnosis) - 11/22/23 Cognitive disorder(Discharge Diagnosis) - 11/22/23 Attending Physician: Sisi Hernandez MD Allergies, Adverse [...] 13:12:00 EDT, Aerosol, Route to Pharmacy Electronically, [id number], [facility], ONLY ALBUTEROL HFA, CANCEL... Start Date: 02/15/22 Stop Date: 02/10/23 Status: Ordered Colace sodium 100 mg oral capsule 100 mg, 1, capsule, By Mouth, 2 times a day, PRN, # 180 capsule, Refills 3, Tot. Refills 3, Maintenance, for constipation, 08/09/23 14:49:00 EST, Route to Pharmacy Electronically, [facility], Partial fill upon patient [...] 2 Refills, Maintenance, 11/22/23 15:23:00 EDT, Solution, [facility], dose change, 155, cm, [...] 0 Refills, Maintenance, 02/15/22 13:10:00 EDT, Aerosol, [facility], new dosage, 155, cm, [...] 07/31/22 11:03:00 EST, Route to Pharmacy Electronically, [facility], Partial fill upon patient request if the prescription is for a schedule... Start Date: 07/31/22 Status: Ordered ketoconazole 1% topical shampoo See Instructions, Apply 5 to 10 mL to wet scalp, lather, leave on 3 to 5 minutes, and rinse; apply twice weekly for 2 to 4 weeks., # 200 mL, 5 Refills, Maintenance, 11/22/23 15:46:00 EDT, [facility], Partial fill upon patient request if... Start Date: 11/22/23 Status: Ordered ketoconazole 2% topical shampoo 1 application, Topically, Once, Apply 5 to 10 mL to wet scalp, lather, leave on 3 to 5 minutes, andrinse; apply weekly for 2 to 4 weeks., # 120 mL, 4 Refills, Soft Stop, 11/25/23 12:40:00 EDT, Shampoo, [facility], Partial fill upon pat... Start Date: 11/25/23 Status: Ordered LORazepam 0.5 mg oral tablet See Instructions, TAKE 1 TABLET BY MOUTH TWO TIMES A DAY NEEDED FOR ANXIETY, # 28 tablet, 2 Refills, Maintenance, 12/05/22 12:25:00 EDT, [facility], 155, cm, 12/05/22 11:40:00 EDT, [...] Maintenance, 08/01/22 6:06:00 EST, Tablet, [facility], Partial fill upon patient request if the prescription is for a schedule II opioid drug., 155, cm,... Start Date: 08/01/22 Status: Ordered Symbicort 160mcg/4.5mcg Inhaler 2, puffs, Inhalation, 2 times a day, # 3 each, Refills 5, Tot. Refills 5, Maintenance, 09/27/22 12:00:00 EST, Aerosol, Route to Pharmacy Electronically, [id number], [facility], replaces flovent inhaler, 155, cm,... [...] EST, Route to Pharmacy Electronically, [facility], Partial fill upon patient [...] Refills, Maintenance, 08/14/23 13:38:00 EST, Chew Tablet, [facility], Partial fill upon patient request if the prescription is for a schedule II opioid drug., 155, cm, 08/14/23 13:0... Start Date: 08/14/23 Status: Ordered Vitamin D3 50,000 intl units oral capsule 1 capsule = 1,250 mcg, By Mouth, Every week, # 13 capsule, 1 Refills, Maintenance, 05/17/23 17:07:00 EDT, Capsule, [facility], Partial fill upon patient [...] 0 Refills, Maintenance, 11/01/23 14:07:00 EDT, Capsule, [facility], Partial fill u... 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 Diagnosis Diagnosis Type Effective Dates Health Status Clinical Service Informant Anxiety Discharge Diagnosis 11/22/23 Narcolepsy and cataplexy Discharge Diagnosis 11/22/23 POTS (postural orthostatic tachycardia syndrome) Discharge Diagnosis 11/22/23 B12 deficiency Discharge Diagnosis 11/22/23 Dermatitis Discharge Diagnosis 11/22/23 Spell of change in speech Discharge Diagnosis 11/22/23 Cognitive disorder Discharge Diagnosis 11/22/23 Vital Signs Most recent to oldest [Reference Range]: 1 Height 155 cm (11/22/23 2:55 PM) Weight 70 kg (11/22/23 2:55 PM) Oxygen Saturation [94-100 %] 100 % (11/22/23 2:55 PM) Pulse Rate [55-90 bpm] 97 bpm *H* (11/22/23 2:55 PM) Body Mass Index [18.5-24.99 kg/m2] 29.14 kg/m2 *H* (11/22/23 2:55 PM) Blood Pressure [90-138/55-84 mm Hg] 116/ 76mm Hg (11/22/23 2:55 PM) Temperature [96.8-100.4 DegF] 98.7 DegF (11/22/23 2:55 PM) Mode of Delivery (Oxygen) Room air (11/22/23 2:55 PM) Blood pressure sites Arm, left (11/22/23 2:55 PM) Temperature Route Temporal (11/22/23 2:55 PM) Weight Obtained Via Standing scale (11/22/23 2:55 PM) Social History Social History Type Response Smoking Status Never smoker; Tobacc o user in household: No entered on: 04/11/16 Sex Note * Annalise Humphries: PERFORM, SIGN, VERIFY Event Display: Patient Education/Instruction Authored Date: [id number] [facility] Clinical Summary Name ANSELMO TURNER Age 33 Years 1990 [facility]CP [id number] Date 11/22/2023 14:49:00 Additional Instructions: Scheduled Appointments?? Future Appointments ?[facility] ?[address]??[place],??[place],??[address] ?Phone:??[phone]?Fax:??-- ?Appt. Date:??12/03/2023?11:00 AM ?Scheduled Provider:??[facility] 1.5T ?[facility] ?Phone:??--?Fax:??-- ?Appt. Date:??12/06/2023?3:00 PM ?Scheduled Provider:??[facility] ?[address] ?[place] ?[place],??[place],??[address] ?Phone:??[phone]?Fax:??-- ?Appt. Date:??12/25/2023?2:00 PM ?Scheduled Provider:??Nita Castillo MD ?*[facility] ?[address]??[place],??[place],??[address] ?Phone:??[phone]?Fax:??-- ?Appt. Date:??02/06/2024?11:40 AM ?Scheduled Provider:??Sisi Hernandez MD Follow-Up Instructions ?? Diagnosis Medications: Please continue your medications until treatment is completed or stopped by your provider. Discuss any questions related to medications with your provider. New Medications [facility] [address] [phone], [phone] Ketoconazole Topical (ketoconazole 1% topical shampoo) Apply 5 to 10 mL to wet scalp, lather, leaveon 3 to 5 minutes, and rinse; apply twice weekly for 2 to 4 weeks.. Refills: 5. Next Dose: Medications to Continue Taking That Have Changed [facility] [address] [phone], [phone] - Cyanocobalamin (cyanocobalamin 1000 mcg/ml injectable solution) 1 Milliliter Intramuscular Every 14 days. Refills: 2. Next Dose: Medications to Continue with No Changes These medications were not printed or sent to your pharmacy Acetaminophen (Tylenol 325 mg oral tablet) 3 tab(s) Oral every 6 hours as needed for pain. Refills:0. Next Dose: Acetaminophen (Tylenol 8 Hour Caplet) 1,300 Milligram Oral every 8 hours. Next Dose: Acetaminophen/Codeine (acetaminophen-codeine 300 mg-30 mg oral tablet) TAKE 2 TABLETS BY MOUTH THREE TIMES A DAY NEEDED FOR PAIN. (LIMIT 4000MG OF TYLENOL/APAP/ACETAMINOPHEN). Refills: 1. Next Dose: Albuterol (albuterol CFC free 90 mcg/inh inhalation aerosol) 2 puff(s) Inhalation every 6 hours as needed for wheezing for 30 Days. Refills: 11. Next Dose: Ascorbic Acid (Vitamin C 250 mg oral tablet, chewable) 1 tab(s) Chew twice a day. Refills: 3. Next Dose: Budesonide-Formoterol (Symbicort 160mcg/4.5mcg Inhaler) 2 puff(s) Inhalation twice a day. Refills: 5. Next Dose: Cholecalciferol (Vitamin D3 50,000 intl units oral capsule) 1 capsule Oral every week. Refills: 1. Next Dose: Docusate (Colace sodium 100 mg oral capsule) 1 capsule Oral twice a day as needed for constipation.Refills: 3. Next Dose: Durable Medical Equipment (Compression Stockings) [...] every 8 hours. Refills: 0. Next Dose: lisdexamfetamine (Vyvanse 10 mg oral capsule) start 1 capsule By Mouth Daily in AM. Increase to 2 capsules as needed (Name brand only because generic not available). Refills: 0. Next Dose: Lorazepam (LORazepam 0.5 [...] 1 TABLET BY MOUTH DAILY.. Next Dose: Contact Your Physician Prior to Taking the Following Medications Cholecalciferol (Vitamin D3 1000 intl units oral capsule) 1 capsule Oral Daily. Refills: 3. Allergy Info:?? Sertraline Hydrochloride; Fruit; vancomycin; cefoxitin Medications Given This Visit Future Orders ?No future orders Future Orders ?No future orders Vital Signs Height 155 cm Weight 70 kg BMI 29.14 kg/m2 Blood Pressure 116 mm Hg/76 mm Hg Temperature 98.7 DegF Pulse Rate 97 bpm Respiratory Rate 02 Sat Mode of Delivery 100 %/Room air You can now view a summary of your hospital visit from the comfort of your home through a free online portal called [employer]. [employer] is a website that allows you to securely view your medical information including discharge summary, medications and follow-up visits. ??You can alsosend a secure electronic message to your doctor???s office to request appointments, renew medications or just ask a question. You can enroll at [email or web address] or register during your next office visit. [...] primary care provider, you may find a [facility] provider by calling [facility] [employer] Link at [phone]. [facility], in keeping with [facility] guidance, no longer requires face [...] Care Member Role: PCP Address: Address: [address] [place] [id number] Name: Lizzette To RN Position: [facility] SN RN Member Role: Primary Care Nurse Name: Karolina Adkins MD Position: [facility] Physician - Primary Care Member Role: Lifetime Consulting Physician Address: Address: [address] [place] [address] [facility] [place], [place] [address] Name: Isadora Godfrey RN Position: [facility] RN Member Role: Primary Care Nurse Name: Rossy Rowe RN Position: [facility] SN RN Member Role: Primary Care Nurse Name: Cindi Hayward RN Position: [facility] RN Member Role: Primary Care Nurse Name: Bela Mcmahon RN Position: [facility] [place] Scaler Member Role: Primary Care Nurse Name: Nicole Hernandez RN Position: [facility] RN Member Role: Primary Care Nurse Name: Zac Castillo RN Position: [facility] KATIE RN W/OE and Tasks Member Role: Primary Care Nurse Name: Jeanne Grande RN Position: [facility] RN Member Role: Primary Care Nurse Care Team Related Persons Name: TURNER BEAR Address: home [address] [place] [address] Name: BEAR TURNER SECONDARY Address: [address] Name: ISATU ECKERT Address: [place] [address] Name: ISAAC VERDE PRIMARY Address: [address] Name: ADRY DURANT Name: PANCHO JEROME Address: [place] [address]
--- OUTSIDE RECORDS SUMMARY | 2024-04-27 10:18 | XMS_ITS | Continuity of Care Document ---
Author Organization [facility] ter Address [address] [place] [address]- Care Team Providers Care Campus Manager Name Role Phone Sisi Hernandez MD Primary Care Physician [phone] Encounter [facility] Date(s): 07/17/22 - 07/17/[address] [address]- Encounter Diagnosis Syncope(Final) - 07/17/22 Discharge Disposition: A-D/C Home Attending Physician: Ivan Fisher MD Admitting Physician: Ivan Fisher MD Referring Physician: Not on Staff, Referring [...] 11/16/21 23:51:00 EDT, Route to Pharmacy Electronically, [facility], Partial fill upon patient [...] 13:12:00 EDT, Aerosol, Route to Pharmacy Electronically, [id number], [facility], ONLY ALBUTEROL HFA, CANCEL... Start Date: [...] 6 Refills, Maintenance, 10/03/21 12:18:00 EST, [facility], cm, 09/27/21 15:08:00 EST, Height, 68.5, kg, 06/03/20 13:18:00 EST, Dry Weight Start Date: 10/03/21 Status: Ordered cyanocobalamin 1000 mcg/ml injectable solution 1 mL = 1,000 mcg, Intramuscular, Every 30 days, # 3 mL, 6 Refills, Maintenance, 06/06/22 12:08:00 EST, Solution, [facility], 155, cm, 04/06/22 14:56:00 EDT, Height, 67.5, kg, 04/06/22 14:56:00 EDT, Dry Weight Start Date: 06/06/22 Status: Ordered esomeprazole 40 mg oral enteric coated capsule TAKE 1 CAPSULE BY MOUTH EVERY DAY Start Date: 07/12/22 Status: Ordered Flovent HFA 220 mcg/inh inhalation aerosol 2 puffs, Inhalation, 2 times a day, new dosage, # 12 Gm, 0 Refills, Maintenance, 02/15/22 13:10:00 EDT, Aerosol, [facility], new dosage, 155, cm, [...] 11/16/21 23:51:00 EDT, Route to Pharmacy Electronically, [facility], Partial fill upon patient request if the prescription is... Start Date: 11/16/21 Status: Ordered LORazepam 0.5 mg oral tablet See Instructions, TAKE 1 TABLET BY MOUTH TWO TIMES A DAY NEEDED FOR ANXIETY, # 28 tablet, 2 Refills, Maintenance, 06/06/22 10:45:00 EST, [facility], 155, cm, 04/06/22 [...] 11/16/21 23:51:00 EDT, DIS Tablet, [facility], Partial fill upon patient request if the prescription is for a schedule II o... Start Date: 11/16/21 Status: Ordered Peridex 0.12% liquid 15 mL = 0.018 Gm, By Mouth, 2 times a day, # 420 mL, 0 Refills, Maintenance, 01/18/22 8:47:00 EDT, Liquid, [facility], Partial fill upon [...] 3 Refills, Maintenance, 06/05/22 14:27:00 EST, Capsule, [facility], Partial fill upon patient [...] Bilateral leg pain Confirmed Active *BHN/CCA/CC-Matias Vela- [phone]/Health [facility], active care coordination Confirmed Active POTS (postural orthostatic tachycardia syndrome) Confirmed Active Medulloblastoma Confirmed Active RUQ pain Confirmed Active Results Radiology Reports * Exam Date Time Procedure Performing Provider Status 07/17/22 6:[address] Angio Chest Chrissie Kwok; Auth (Verified) Notes: (CT Angio Chest) Reason For Exam: PE suspected, Intermediate prob, positive D-dimer,;Other: RESULT: CT Angio Chest EXAMINATION: CT Angio Chest INDICATION: Hx of Present Illness: found to be very weak, slumped over in chair while getting preoptesting; Reason: Other:; PE suspected, Intermediate prob, positive D-dimer,; Clinical Question(s): Pulmonary Embolism; Order Comment: TECHNIQUE: Spiral CTA of the chest was performed after rapid IV contrast administration without cardiac gating, triggered by an FLORENCIO on the main pulmonary artery. Images are formatted in multiple planes using 2-D multiplanar and 3-D maximum intensity projection. 50 cc of Omnipaque 300 was administered intravenously. Weight-based protocol using automatic tube modulation was used to optimize exposure parameters. CTDIvol Body: 3.41 mGy, DLP Body: 176 mGy*cm. COMPARISONS: 07/14/2022. ANGIOGRAPHIC FINDINGS: No pulmonary embolism to the subsegmental level. Normal caliber pulmonary arteries. No acute aortic abnormality seen on this study performed without cardiac gating. NON-ANGIOGRAPHIC FINDINGS: Operations And Maintenance Specialist View Findings, Lines and Tubes: Left subclavian 2-lead AICD/pacer is appeared intact. Trachea and Airways: Patent without evidence of tracheal or endobronchial lesion. Lungs and Pleura: Artifact surrounding the left subclavian pacer battery pack and dense contrast within the left subclavian vein causes significant artifact in the lung apices obscuring detail. Giventhat, no focal consolidation or pulmonary edema. No effusion or pneumothorax. Mediastinum and rosaline: No mass or hematoma. No mediastinal or hilar lymphadenopathy. No esophageal abnormality. Partially imaged thyroid is unremarkable. Heart: Mild cardiomegaly, unchanged. No pericardial effusion. None. Chest Wall Soft Tissues: Rounded soft tissue nodule measuring 1 cm associated with macrocalcification identified in the inferior inner quadrant of the right breast tissue. Diaphragm and upper abdomen: No significant abnormality. Bones: No acute abnormality. IMPRESSION: No evidence of pulmonary embolism. No acute abnormality identified within the chest. Soft tissue lesion within the right breast tissue. Correlation with breast ultrasound recommended. A critical result message (Yellow) has been communicated via the [email or web address] system on 07/17/2022 7:01 PM, Message ID [id number]. WSN: [id number] Ordering Physician: Zuleyka Goldsmith Dictated By: Chaitanya Manuel MD Dictated Date/Time: 07/17/22 7:01 pm Reviewed By: Chaitanya Manuel MD Signed By: Chaitanya Manuel MD Signed Date/Time: 07/17/22 7:01 pm Transcribed By: NIMO Transcribed Date/Time: 07/17/22 6:45 pm Vital Signs Most recent to oldest [Reference Range]: 1 2 3 Oxygen Saturation [94-100 %] 100 % (07/17/22 10:02 PM) 100 % (07/17/22 5:16 PM) 100 % (07/17/22 1:15 PM) Pulse Rate [55-90 bpm] 99 bpm *H* (07/17/22 10:02 PM) 79 bpm (07/17/22 5:16 PM) 67 bpm (07/17/22 1:15 PM) Blood Pressure [90-138/55-84 mm Hg] 141/81mm Hg *H* (07/17/22 10:02 PM) 151/65mm Hg *H* (07/17/22 5:16 PM) 139/81mm Hg *H* (07/17/22 1:15 PM) Respiratory Rate [16-30 br/min] 20 br/min (07/17/22 10:02 PM) 20 br/min (07/17/22 5:16 PM) 18 br/min (07/17/22 1:15 PM) Temperature [96.8-100.4 DegF] 97.8 DegF (07/17/22 10:02 PM) 97.5 DegF (07/17/22 5:16 PM) 97.3 DegF (07/17/22 1:15 PM) Mode of Delivery (Oxygen) Room air (07/17/22 10:02 PM) Room air (07/17/22 5:16 PM) Room air (07/17/22 1:15 PM) Blood pressure sites Leg, left (07/17/22 10:02 PM) Arm, right (07/17/22 5:16 PM) Arm, right (07/17/22 1:15 PM) Temperature Route Oral (07/17/22 10:02 PM) Oral (07/17/22 5:16 PM) Oral (07/17/22 1:15 PM) Social History Social History Type Response Smoking Status Never smoker; Tobacc o user in household: No entered on: 04/11/16 Sex Female EKG study * Event Display: ECG 12-Lead Authored Date: [id number] Please click on pdf link to open report * Event Display: ECG 12-Lead Authored Date: Ventricular Rate: 73 BPM Atrial Rate: 73 BPM P-R Interval: 122 ms QRS Duration: 84 ms Q-T Interval: 386 ms QTC Calculation(Bazett): 425 ms P [place]: 50 degrees R [place]: 49 degrees T [place]: 33 degrees Sinus rhythm with Premature supraventricular complexes Otherwise normal ECG When compared with ECG of 17-JUL-2022 10:43, Vent. rate has decreased BY 67 BPM Confirmed by TACHO TRIANA ([id number]) on 07/17/2022 2:00:46 PM Homer: TACHO TRIANA CTA Chest vessels W contrast IV * BHSPowerscribe , CIS S: TRANSCRIBE Chaitanya Manuel MD: VERIFY Event Display: Result: Authored Date: EXAMINATION: CT Angio Chest INDICATION: Hx of Present Illness: found to be very weak, slumped over in chair while getting preoptesting; Reason: Other:; PE suspected, Intermediate prob, positive D-dimer,; Clinical Question(s): Pulmonary Embolism; Order Comment: TECHNIQUE: Spiral CTA of the chest was performed after rapid IV contrast administration without cardiac gating, triggered by an FLORENCIO on the main pulmonary artery. Images are formatted in multiple planes using 2-D multiplanar and 3-D maximum intensity projection. 50 cc of Omnipaque 300 was administered intravenously. Weight-based protocol using automatic tube modulation was used to optimize exposure parameters. CTDIvol Body: 3.41 mGy, DLP Body: 176 mGy*cm. COMPARISONS: 07/14/2022. ANGIOGRAPHIC FINDINGS: No pulmonary embolism to the subsegmental level. Normal caliber pulmonary arteries. No acute aortic abnormality seen on this study performed without cardiac gating. NON-ANGIOGRAPHIC FINDINGS: Operations And Maintenance Specialist View Findings, Lines and Tubes: Left subclavian 2-lead AICD/pacer is appeared intact. Trachea and Airways: Patent without evidence of tracheal or endobronchial lesion. Lungs and Pleura: Artifact surrounding the left subclavian pacer battery pack and dense contrast within the left subclavian vein causes significant artifact in the lung apices obscuring detail. Giventhat, no focal consolidation or pulmonary edema. No effusion or pneumothorax. Mediastinum and rosaline: No mass or hematoma. No mediastinal or hilar lymphadenopathy. No esophageal abnormality. Partially imaged thyroid is unremarkable. Heart: Mild cardiomegaly, unchanged. No pericardial effusion. None. Chest Wall Soft Tissues: Rounded soft tissue nodule measuring 1 cm associated with macrocalcification identified in the inferior inner quadrant of the right breast tissue. Diaphragm and upper abdomen: No significant abnormality. Bones: No acute abnormality. IMPRESSION: No evidence of pulmonary embolism. No acute abnormality identified within the chest. Soft tissue lesion within the right breast tissue. Correlation with breast ultrasound recommended. A critical result message (Yellow) has been communicated via the [email or web address] system on 07/17/2022 7:01 PM, Message ID [id number]. WSN: [id number] Ordering Physician: Zuleyka Goldsmith Dictated By: Chaitanya Manuel MD Dictated Date/Time: 07/17/22 7:01 pm Reviewed By: Chaitanya Manuel MD Signed By: Chaitanya Manuel MD Signed Date/Time: 07/17/22 7:01 pm Transcribed By: NIMO Transcribed Date/Time: 07/17/22 6:45 pm Patient Care team information Care Team Personnel Name: Vidhya Grace RN Position: [facility] RN Member Role: Primary Care Nurse Name: Sisi Hernandez MD Position: [facility] Primary Care Physician Member Role: PCP Address: Address: [address] [place] [address] Name: Lizzette To RN Position: [facility] RN Member Role: Primary Care Nurse Name: Karolina Adkins MD Position: [facility] Physician -Physician Practices Member Role: Lifetime Consulting Physician Address: Address: [address] [place] [address] [facility] [address] Name: Isadora Godfrey RN Position: [facility] RN Member Role: Primary Care Nurse Name: Rossy Rowe RN Position: [facility] SN RN Member Role: Primary Care Nurse Name: Bela Mcmahon RN Position: [facility] Hospital Volunteer Firefighter Member Role: Primary Care Nurse Name: Nicole Hernandez RN Position: [facility] RN Member Role: Primary Care Nurse Name: Zac Castillo RN Position: [facility] ED RN W/OE and Tasks Member Role: Primary Care Nurse Name: Jeanne Grande RN Position: [facility] RN Member Role: Primary Care Nurse Name: Ivan Fisher MD Position: [facility] ED Medicine MD Member Role: Admitting Physician Address: Address: [address] [place] [address]- Name: Zuleyka Goldsmith MD Position: [facility] Resident Member Role: ED Resident Address: Address: [address] [place] [address] Name: Vi León Position: [facility] ED TA [facility] Member Role: Street Light Servicer Helper Name: Meenakshi Angulo RN Position: [facility] ED RN W/OE and Tasks Member Role: Patient Care Provider Care Team Related Persons Name: BEAR TURNER Address: home [address] [place] [id number] Name: ISATU ECKERT Address: [place] [address] Name: ADRY DURANT Name: PANCHO JEROME Address: [place] [address]
--- OUTSIDE RECORDS SUMMARY | 2024-04-27 10:19 | XMS_ITS | Continuity of Care Document ---
Author Organization [facility] Address [address] [place] [address]- Care Team Providers Care Ibm Bpm Architect Name Role Phone Sisi Hernandez MD Primary Care Physician [phone] [id number] Date[facility] - 11/01/[address] [address] Allergies, Adverse Reactions, Alerts Substance [...] 0 Refills, Maintenance, 10/25/21 15:46:00 EDT, Tablet, [facility], Partial fill upon patient [...] Refills, Maintenance, 10/25/21 15:46:00 EDT, ER Capsule, [facility], Partial fill upon patient r... Start Date: 10/25/21 Status: Ordered albuterol CFC free 90 mcg/inh inhalation aerosol 2, puffs, Inhalation, Every 6 hours, PRN, # 2 each, Refills 11, Tot. Refills 11, Maintenance, 10/05/21 9:52:00 EST, Aerosol, Route to Pharmacy Electronically, [id number], [facility], ONLY ALBUTEROL HFA, CANCEL V... Start [...] 6 Refills, Maintenance, 10/03/21 12:18:00 EST, Solution, [facility] 3, 155, cm, 09/27/21 15:08:00 EST, Height, 68.5, kg, 06/03/20 13:18:00 EST, Dry Weight Start Date: 10/03/21 Status: Ordered cyanocobalamin 1000 mcg/ml injectable solution 1 mL = 1,000 mcg, Intramuscular, Every 30 days, # 3 mL, 6 Refills, Maintenance, 06/15/20 11:56:00 EST, Solution, [facility], 155, cm, 06/03/20 13:15:00 EST, Height, 68.5, kg, 06/03/20 13:18:00 EST, Dry Weight Start Date: 06/15/20 Status: Ordered dilTIAZem 240 mg/24 hours oral tablet, extended release 1 tablet = 240 mg, By Mouth, Daily, FURTHER REFILLS BY MAIL SORTER AND DELIVERY, # 90 tablet, 0 Refills, Maintenance, 11/27/19 8:57:00 EDT, ER Tablet, [facility], 155, cm, 10/07/19 12:25:00 EDT, Height, 63, kg, 07/01/19 19:58:00 EST, Dry Weight Start Date: 11/27/19 Status: Ordered Flovent HFA 110 mcg/inh inhalation aerosol 2 puffs, Inhalation, 2 times a day, # 12 Gm, 0 Refills, Maintenance, 10/05/21 13:23:00 EST, Aerosol, [facility], Partial fill upon patient [...] tablet, 2 Refills, Maintenance, 05/06/20 15:17:00 EDT, [facility], 155, cm, 05/03/20 [...] 3 Refills, Maintenance, 10/25/21 11:13:00 EDT, Capsule, [facility], Partial fill upon patient [...] Active Bilateral leg pain(Confirmed) Active *BHN/CCA/CC-Matias Vela- [phone]/Health [facility], active care coordination(Confirmed) Active POTS (postural orthostatic t achycardia syndrome)(Confirmed) Active Medulloblastoma(Confirmed) Active RUQ pain(Confirmed) Active Social History Social History Type Response Smoking Status Never smoker; Tobacc o user in household: No entered on: 04/11/16 Sex Female
--- OUTSIDE RECORDS SUMMARY | 2024-04-27 10:19 | XMS_ITS | Continuity of Care Document ---
Author Organization [facility] ter Address [address] [place] [address]- Care Team Providers Care Member Service Specialist Name Role Phone Sisi Hernandez MD Primary Care Physician Encounter [facility] Date(s): 08/13/19 - 09/23/[address] [address]- [facility] Attending Physician: Sisi Hernandez MD [...] 12:10:52 EDT, Aerosol, Route to Pharmacy Electronically, [id number], [facility] Start Date: 03/10/19 Stop Date: 09/06/19 Status: Ordered Carafate 1 gm/10 ml oral suspension 10 mL = 1 Gm, By Mouth, 3 times a day before meals and bedtime, # 1,200 mL, 0 Refills, Maintenance,07/31/19 15:42:00 EST, [facility], CAN LET ME KNOW IF [...] 3 Refills, Maintenance, 07/31/19 15:47:00 EST, [facility], 155, cm, 07/31/19 15:01:00 EST, Height, 63, kg, 07/01/19 19:58:00 EST, Dry Weight Start Date: 07/31/19 Status: Ordered dicyclomine 10 mg oral capsule 1 capsule = 10 mg, By Mouth, 3 times a day, PRN intestinal spasm, # 21 capsule, 3 Refills, Maintenance, 07/31/19 15:42:00 EST, Capsule, [facility], 155, cm, 07/31/19 15:01:00 EST, Height, 63, kg, 07/01/19 19:58:00 EST, Dry Weight Start Date: 07/31/19 Stop Date: 08/28/19 Status: Ordered famotidine 40 mg oral tablet 1 tablet = 40 mg, By Mouth, Daily at bedtime, # 30 tablet, 0 Refills, Maintenance, 07/21/19 13:46:00 EST, Tablet, [facility], 155, cm, 07/21/19 13:05:00 [...] 15:30:53 EST, Aerosol, Route to Pharmacy Electronically, [id number]... Start Date: 09/12/18 Stop Date: 02/09/19 Status: [...] Refills, Maintenance, 07/21/19 13:36:00 EST, CR Capsule, [facility], lower dose for a [...] 0 Refills, Maintenance, 07/21/19 12:29:00 EST, Tablet, [facility], 155, cm, 07/21/19 11:37:00 EST, [...] bowel syndrome)(Confirmed) 01/23/16 Active Near syncope(Confirmed) Active *[facility]-[phone]/[facility], active care coordination(Confirmed) Active Matias Vela [facility] Care [facility] Clinical Analyst [phone](Confirmed) Active POTS (postural orthostatic t achycardia syndrome)(Confirmed) Active Medulloblastoma(Confirmed) Active RUQ pain(Confirmed) Active Social History Social History Type Response Smoking Status Never smoker; Tobacc o user in household: No entered on: 04/11/16 Sex
--- OUTSIDE RECORDS SUMMARY | 2024-04-27 10:19 | XMS_ITS | Continuity of Care Document ---
Author Organization [facility] Address [address] [place] [address]- Care Team Providers Care Family Assistant Name Role Phone Sisi Hernandez MD Primary Care Physician [phone] Encounter [facility] Date(s): 08/18/19 - 08/28/[address] [address]- [facility] Attending Physician: Angel Gomez Admitting Physician: AdmtrAngel [...] 12:10:52 EDT, Aerosol, Route to Pharmacy Electronically, [id number], [facility] Start Date: 03/10/19 Stop Date: 09/06/19 Status: Ordered Carafate 1 gm/10 ml oral suspension 10 mL = 1 Gm, By Mouth, 3 times a day before meals and bedtime, # 1,200 mL, 0 Refills, Maintenance,07/31/19 15:42:00 EST, [facility], CAN LET ME KNOW IF [...] 3 Refills, Maintenance, 07/31/19 15:47:00 EST, Solution, [facility], 155, cm, 07/31/19 15:01:00 EST, Height, 63, kg, 07/01/19 19:58:00 EST, Dry Weight Start Date: 07/31/19 Status: Ordered dicyclomine 10 mg oral capsule 1 capsule = 10 mg, By Mouth, 3 times a day, PRN intestinal spasm, # 21 capsule, 3 Refills, Maintenance, 07/31/19 15:42:00 EST, Capsule, [facility], 155, cm, 07/31/19 15:01:00 EST, Height, 63, kg, 07/01/19 19:58:00 EST, Dry Weight Start Date: 07/31/19 Stop Date: 08/28/19 Status: Ordered famotidine 40 mg oral tablet 1 tablet = 40 mg, By Mouth, Daily at bedtime, # 30 tablet, 0 Refills, Maintenance, 07/21/19 13:46:00 EST, Tablet, [facility], 155, cm, 07/21/19 13:05:00 [...] 15:30:53 EST, Aerosol, Route to Pharmacy Electronically, [id number]... Start Date: 09/12/18 Stop Date: 02/09/19 Status: [...] Refills, Maintenance, 07/21/19 13:36:00 EST, CR Capsule, [facility], lower dose for a [...] 0 Refills, Maintenance, 07/21/19 12:29:00 EST, Tablet, [facility], 155, cm, 07/21/19 11:37:00 EST, [...] bowel syndrome)(Confirmed) 01/23/16 Active Near syncope(Confirmed) Active *[facility]/CC-Geno [place]-[phone]/Health alf, active care coordination(Confirmed) Active Matias Vela [facility] Care [facility] Physician Assistant Primary Care [phone](Confirmed) Active POTS (postural orthostatic t achycardia syndrome)(Confirmed) Active Medulloblastoma(Confirmed) Active RUQ pain(Confirmed) Active Social History Social History Type Response Smoking Status Never smoker; Tobacc o user in household: No entered on: 04/11/16 Sex
--- OUTSIDE RECORDS SUMMARY | 2024-04-27 10:19 | XMS_ITS | Continuity of Care Document ---
Author Organization [facility] Address [address], 4t [place] [address]- Care Team Providers Care Guidance Adviser Name Role Phone Sisi Hernandez MD Primary Care Physician [phone] [id number]): [facility] - 09/16/[facility] [address] 4[address] Floor [place], [place] [address] Attending Physician: Abby Villalpando MD Referring Physician: [...] 13:12:00 EDT, Aerosol, Route to Pharmacy Electronically, [id number], [facility], ONLY ALBUTEROL HFA, CANCEL... Start Date: 02/15/22 Stop Date: 02/10/23 Status: Ordered Colace sodium 100 mg oral capsule 100 mg, 1, capsule, By Mouth, 2 times a day, PRN, # 30 capsule, Refills 0, Tot. Refills 0, Maintenance, for constipation, 07/31/22 11:03:00 EST, Route to Pharmacy Electronically, [facility], Partial [...] Maintenance, 09/04/22 8:50:00 EST, Solution, [facility], 155, cm, 08/14/22 [...] Maintenance, 02/15/22 13:10:00 EDT, Aerosol, [facility], new dosage, 155, [...] EST, Route to Pharmacy Electronically, [facility], Partial fill upon patient request if the prescription is for a schedule... Start Date: 07/31/22 Status: Ordered LORazepam 0.5 mg oral tablet See Instructions, TAKE 1 TABLET BY MOUTH TWO TIMES A DAY NEEDED FOR ANXIETY, # 28 tablet, 2 Refills, Maintenance, 06/06/22 10:45:00 EST, [facility], 155, cm, [...] 08/01/22 6:06:00 EST, REC Powder, [facility], Partial fill upon patient request [...] Refills, Maintenance, 08/01/22 6:06:00 EST, Tablet, [facility], Partial fill upon patient request if the prescription is for a schedule II opioid drug., 155, cm,... Start Date: 08/01/22 Status: Ordered simethicone 80 mg oral tablet, chewable 80 mg, 1, tablet, Chew, 4 times a day, # 12 tablet, Refills 0, Tot. Refills 0, Maintenance, 07/31/22 11:03:00 EST, Route to Pharmacy Electronically, [facility], Partial fill upon patient request if [...] EST, Route to Pharmacy Electronically, [facility], Partial fill upon [...] Refills, Maintenance, 06/05/22 14:27:00 EST, Capsule, [facility], Partial fill upon patient request if [...] Bilateral leg pain Confirmed Active *BHN/CCA/CC-Matias Vela- [phone]/Health custodial, active care coordination Confirmed Active POTS (postural orthostatic tachycardia syndrome) Confirmed Active Medulloblastoma Confirmed Active RUQ pain Confirmed Active Social History Social History Type Response Smoking Status Never smoker; Tobacc o user in household: No entered on: 04/11/16 Sex Female Patient Care team information Care Team Personnel Name: Vidhya Grace RN Position: [facility] RN Member Role: Primary Care Nurse Name: Sisi Hernandez MD Position: [facility] Primary Care Physician Member Role: PCP Address: Address: [address] [place] [address] [facility] Name: Lizzette To RN Position: [facility] RN Member Role: Primary Care Nurse Name: Karolina Adkins MD Position: [facility] Physician -Physician Practices Member Role: Lifetime Consulting Physician Address: Address: [address] [place] [address] [facility] [place] [facility] Name: Isadora Godfrey RN Position: [facility] RN Member Role: Primary Care Nurse Name: Rossy Rowe RN Position: [facility] SN RN Member Role: Primary Care Nurse Name: Cindi Hayward Position: [facility] RN Member Role: Primary Care Nurse Name: Bela Mcmahon RN Position: [facility] Product Test Specialist Member Role: Primary Care Nurse Name: Nicole Hernandez RN Position: [facility] RN Member Role: Primary Care Nurse Name: Zac Castillo RN Position: [facility] ED RN W/OE and Tasks Member Role: Primary Care Nurse Name: Jeanne Grande RN Position: [facility] RN Member Role: Primary Care Nurse Care Team Related Persons Name: BEAR TURNER Address: [address] [place] [address] Name: BEAR TURNER SECONDARY Address: home [address] [place] [address] Name: ISATU ECKERT Address: home [place], [place] Name: ISAAC VERDE PRIMARY Address: home [address] [place] [address] Name: ADRY DURANT Name: PANCHO JEROME Address: home [place], [place]
--- OUTSIDE RECORDS SUMMARY | 2024-04-27 10:19 | XMS_ITS | Continuity of Care Document ---
Author Organization [facility] Address [address] [place] [address]- Care Team Providers Care Program Review Director Name Role Phone Sisi Hernandez MD Primary Care Physician [place] [facility] [place] - 02/08/[address] [address] Allergies, Adverse Reactions, Alerts [...] 8:50:00 EDT, Aerosol, Route to Pharmacy Electronically, [id number], [facility], 155, cm, 06/03/20 [...] 6 Refills, Maintenance, 06/15/20 11:56:00 EST, Solution, [facility], 155, cm, 06/03/20 13:15:00 EST, Height, 68.5, kg, 06/03/20 13:18:00 EST, Dry Weight Start Date: 06/15/20 Status: Ordered dilTIAZem 240 mg/24 hours oral tablet, extended release 1 tablet = 240 mg, By Mouth, Daily, FURTHER REFILLS BY EMERGENCY DEPARTMENT NURSE, # 90 tablet, 0 Refills, Maintenance, 11/27/19 8:57:00 EDT, ER Tablet, [facility], 155, cm, 10/07/19 12:25:00 EDT, [...] tablet, 2 Refills, Maintenance, 05/06/20 15:17:00 EDT, [facility], 155, cm, 05/03/20 18:55:00 EDT, [...] 15:30:53 EST, Aerosol, Route to Pharmacy Electronically, [id number]... Start Date: 09/12/18 Stop Date: 02/09/19 Status: Ordered ProAir HFA 90 mcg/inh inhalation aerosol with adapter 2, puffs, Inhalation, Every 4 hours, PRN, use with spacer chamber BRAND NAME MEDICALLY NECESSARY, #8.5 Gm, Refills 0, Tot. Refills 0, Maintenance, 12/05/20 15:38:00 EDT, Aerosol, Route to Pharmacy Electronically, [id number]... Start Date: 12/05/20 Status: Ordered ramelteon 8 mg oral tablet 1 tablet = 8 mg, By Mouth, Daily at bedtime, # 30 tablet, 11 Refills, Maintenance, 12/02/20 8:48:00EDT, [facility], Partial fill upon [...] 2 Refills, Maintenance, 08/04/20 12:39:00 EST, Capsule, [facility], Partial fill upon [...] Active Bilateral leg pain(Confirmed) Active *BHN/CCA/CC-[facility]ias Vela- [phone]/Health mcfp, active care coordination(Confirmed) Active POTS (postural orthostatic t achycardia syndrome)(Confirmed) Active Medulloblastoma(Confirmed) Active RUQ pain(Confirmed) Active Viral URI(Confirmed) Active Social History Social History Type Response Smoking Status Never smoker; Tobacc o user in household: No entered on: 04/11/16 Sex
--- OUTSIDE RECORDS SUMMARY | 2024-04-27 10:19 | XMS_ITS | Continuity of Care Document ---
Author Organization [facility] Address [address] [place] [address]- Care Team Providers Care Fitter Mechanic Name Role Phone Sisi Hernandez MD Primary Care Physician [place] [facility] [place] Date(s): 01/06/21 - 02/05/[address] [address] Allergies, Adverse Reactions, Alerts Substance [...] 8:50:00 EDT, Aerosol, Route to Pharmacy Electronically, [id number], [facility], 155, cm, 06/03/20 [...] 06/15/20 11:56:00 EST, Solution, [facility], 155, cm, 06/03/20 13:15:00 EST, Height, 68.5, kg, 06/03/20 13:18:00 EST, Dry Weight Start Date: 06/15/20 Status: Ordered dilTIAZem 240 mg/24 hours oral tablet, extended release 1 tablet = 240 mg, By Mouth, Daily, FURTHER REFILLS BY USED CAR MAKE READY MECHANIC, # 90 tablet, 0 Refills, Maintenance, 11/27/19 8:57:00 EDT, ER Tablet, [facility], 155, cm, 10/07/19 [...] tablet, 2 Refills, Maintenance, 05/06/20 15:17:00 EDT, [facility], 155, cm, [...] 15:30:53 EST, Aerosol, Route to Pharmacy Electronically, [id number]... Start Date: 09/12/18 Stop Date: 02/09/19 Status: Ordered ProAir HFA 90 mcg/inh inhalation aerosol with adapter 2, puffs, Inhalation, Every 4 hours, PRN, use with spacer chamber BRAND NAME MEDICALLY NECESSARY, #8.5 Gm, Refills 0, Tot. Refills 0, Maintenance, 12/05/20 15:38:00 EDT, Aerosol, Route to Pharmacy Electronically, [id number]... Start Date: 12/05/20 Status: Ordered ramelteon 8 mg oral tablet 1 tablet = 8 mg, By Mouth, Daily at bedtime, # 30 tablet, 11 Refills, Maintenance, 12/02/20 8:48:00EDT, [facility], Partial fill upon patient request if [...] 2 Refills, Maintenance, 08/04/20 12:39:00 EST, Capsule, [facility] [...] Near syncope(Confirmed) Active Bilateral leg pain(Confirmed) Active *BHN/CCA/CC-Matiasflakito Vela- [phone]/Health [facility], active care coordination(Confirmed) Active POTS (postural orthostatic t achycardia syndrome)(Confirmed) Active Medulloblastoma(Confirmed) Active RUQ pain(Confirmed) Active Viral URI(Confirmed) Active Social History Social History Type Response Smoking Status Never smoker; Tobacc o user in household: No entered on: 04/11/16 Sex
--- OUTSIDE RECORDS SUMMARY | 2024-04-27 10:19 | XMS_ITS | Continuity of Care Document ---
Author Organization [facility] Address [address] [place] [address]- Care Team Providers Care Soaker Name Role Phone Sisi Hernandez MD Primary Care Physician [phone] [id number]07[facility] - 09[facility]06/23 [facility] [address] [place], [place] [address] Allergies, Adverse Reactions, Alerts Substance [...] Refills, Maintenance, 12/21/22 14:40:00 EDT, ER Capsule, [facility], Partial fill upon patient request if the prescription is for a schedule II opioid drug., 155, cm, 12/05/22 11:... Start Date: 12/21/22 Status: Ordered albuterol CFC free 90 mcg/inh inhalation aerosol 2, puffs, Inhalation, Every 6 hours, PRN, # 2 each, Refills 11, Tot. Refills 11, Maintenance, 02/15/22 13:12:00 EDT, Aerosol, Route to Pharmacy Electronically, [id number], [facility], ONLY ALBUTEROL [...] Route to Pharmacy Electronically, [facility], Partial fill upon patient [...] Maintenance, 08/01/22 6:06:00 EST, Tablet, [facility], Partial fill upon patient request if the prescription is for a schedule II opioid drug., 155, cm,... Start Date: 08/01/22 Status: Ordered Symbicort 160mcg/4.5mcg Inhaler 2, puffs, Inhalation, 2 times a day, # 3 each, Refills 5, Tot. Refills 5, Maintenance, 09/27/22 12:00:00 EST, Aerosol, Route to Pharmacy Electronically, [id number], [facility], replaces flovent inhaler, 155, [...] Bilateral leg pain Confirmed Active *BHN/CCA/CC-Matias Vela- [phone]/Health fdc, active care coordination Confirmed Active POTS [...] Primary Care Member Role: PCP Address: Address: [address] [place] [address] [facility] Name: Lizzette To RN Position: [facility] SN RN Member Role: Primary Care Nurse Name: Karolina Adkins MD Position: [facility] Physician - Primary Care Member Role: Lifetime Consulting Physician Address: Address: [address] [place] [address] Geriatric & Palliative Care [place], [place] [facility] Name: Isadora Godfrey RN Position: [facility] RN Member Role: Primary Care Nurse Name: Rossy Rowe RN Position: [facility] SN RN Member Role: Primary Care Nurse Name: Cindi Hayward RN Position: [facility] RN Member Role: Primary Care Nurse Name: Bela Mcmahon RN Position: [facility] Clinical Nurse Manager Member Role: Primary Care Nurse Name: [...] Persons Name: BEAR TURNER Address: home [address] [place], [place] Name: BEAR TURNER SECONDARY Address: home [address] [place], [place] Name: ISATU ECKERT Address: home [place], [place] Name: ISAAC VERDE PRIMARY Address: home [address] [place] [address] Name: ADRY DURANT Name: PANCHO JEROME Address: home [place], [place]
--- OUTSIDE RECORDS SUMMARY | 2024-04-27 10:19 | XMS_ITS | Continuity of Care Document ---
Author Organization [facility] Address [address] [place] [address]- Care Team Providers Care Life Insurance Underwriter Name Role Phone Sisi Hernandez MD Primary Care Physician En[facility] [place] Date(s): 08/10/19 - 08/20/19 [facility] [address] [place] [address] [facility] Attending Physician: Angel Gomez Admitting Physician: Angel [...] 12:10:52 EDT, Aerosol, Route to Pharmacy Electronically, [id number], [facility] Start Date: 03/10/19 Stop Date: 09/06/19 Status: Ordered Carafate 1 gm/10 ml oral suspension 10 mL = 1 Gm, By Mouth, 3 times a day before meals and bedtime, # 1,200 mL, 0 Refills, Maintenance,07/31/19 15:42:00 EST, [facility], CAN LET ME KNOW IF [...] 3 Refills, Maintenance, 07/31/19 15:47:00 EST, Solution, [facility], 155, cm, 07/31/19 15:01:00 EST, Height, 63, kg, 07/01/19 19:58:00 EST, Dry Weight Start Date: 07/31/19 Status: Ordered dicyclomine 10 mg oral capsule 1 capsule = 10 mg, By Mouth, 3 times a day, PRN intestinal spasm, # 21 capsule, 3 Refills, Maintenance, 07/31/19 15:42:00 EST, [facility]apsule[facility], [facility], cm, 07/31/19 15:01:00 EST, Height, [...] 15:30:53 EST, Aerosol, Route to Pharmacy Electronically, [id number]... Start Date: 09/12/18 Stop Date: 02/09/19 Status: [...] Refills, Maintenance, 07/21/19 13:36:00 EST, CR Capsule, [facility], lower dose for a [...] 0 Refills, Maintenance, 07/21/19 12:29:00 EST, Tablet, [facility], 155, cm, 07/21/19 11:37:00 [...] bowel syndrome)(Confirmed) 01/23/16 Active Near syncope(Confirmed) Active *[facility]-[phone]/Health jail, active care coordination(Confirmed) Active [facility]ias [facility] Care [facility] Pm Head Cook [phone](Confirmed) Active POTS (postural orthostatic t achycardia syndrome)(Confirmed) Active Medulloblastoma(Confirmed) Active RUQ pain(Confirmed) Active Social History Social History Type Response Smoking Status Never smoker; Tobacc o user in household: No entered on: 04/11/16 Sex
--- OUTSIDE RECORDS SUMMARY | 2024-04-27 10:19 | XMS_ITS | Continuity of Care Document ---
Author Organization [facility] Address [address] [place] [address]- Care Team Providers Care Line Erector Name Role Phone Sisi Hernandez MD Primary Care Physician [place] [facility] [place] 07/08/20 [facility] [address] [place], [place] [address] Attending Physician: Not on Staff, Attending MD [...] 8:59:00 EDT, Aerosol, Route to Pharmacy Electronically, [id number], [facility], 155, cm, 10/07/19 12:25:00 E... Start [...] Refills, Maintenance, 06/15/20 11:56:00 EST, Solution, [facility] 3, 155, cm, 06/03/20 13:15:00 EST, Height, 68.5, kg, 06/03/20 13:18:00 EST, Dry Weight Start Date: 06/15/20 Status: Ordered dilTIAZem 240 mg/24 hours oral tablet, extended release 1 tablet = 240 mg, By Mouth, Daily, FURTHER REFILLS BY SOLDERER TORCH, # 90 tablet, 0 Refills, Maintenance, 11/27/19 8:57:00 EDT, ER Tablet, [facility] 3, 155, cm, 10/07/19 12:25:00 [...] 2 Refills, Maintenance, 05/06/20 15:17:00 EDT, [facility], 155, cm, 05/03/20 18:55:00 EDT, Height, [...] 15:30:53 EST, Aerosol, Route to Pharmacy Electronically, [id number]... Start Date: 09/12/18 Stop Date: 02/09/19 Status: [...] Active Bilateral leg pain(Confirmed) Active *BHN/CCA/CC-Matias Vela- [phone]/Health usp, active care coordination(Confirmed) Active POTS (postural orthostatic t achycardia syndrome)(Confirmed) Active Medulloblastoma(Confirmed) Active RUQ pain(Confirmed) Active Viral URI(Confirmed) Active Social History Social History Type Response Smoking Status Never smoker; Tobacc o user in household: No entered on: 04/11/16 Sex
--- OUTSIDE RECORDS SUMMARY | 2024-04-27 10:19 | XMS_ITS | Continuity of Care Document ---
Author Organization [facility] Address [address] [place] [address]- Care Team Providers Care Odd Jobs Day Worker Name Role Phone Sisi Hernandez MD Primary Care Physician Encounter [facility] [place] Date(s): 09/27/21 - 10/27/21 [facility] [address] [place], [place] [address] Allergies, Adverse Reactions, Alerts Substance [...] 0 Refills, Maintenance, 10/25/21 15:46:00 EDT, Tablet, [facility], Partial fill upon [...] Refills, Maintenance, 10/25/21 15:46:00 EDT, ER Capsule, [facility], Partial fill upon patient r... Start Date: 10/25/21 Status: Ordered albuterol CFC free 90 mcg/inh inhalation aerosol 2, puffs, Inhalation, Every 6 hours, PRN, # 2 each, Refills 11, Tot. Refills 11, Maintenance, 10/05/21 9:52:00 EST, Aerosol, Route to Pharmacy Electronically, [id number], [facility], ONLY ALBUTEROL HFA, [...] 6 Refills, Maintenance, 10/03/21 12:18:00 EST, Solution, [facility], 155, cm, 09/27/21 15:08:00 EST, Height, 68.5, kg, 06/03/20 13:18:00 EST, Dry Weight Start Date: 10/03/21 Status: Ordered cyanocobalamin 1000 mcg/ml injectable solution 1 mL = 1,000 mcg, Intramuscular, Every 30 days, # 3 mL, 6 Refills, Maintenance, 06/15/20 11:56:00 EST, Solution, [facility] 3, 155, cm, 06/03/20 13:15:00 EST, Height, 68.5, kg, 06/03/20 13:18:00 EST, Dry Weight Start Date: 06/15/20 Status: Ordered dilTIAZem 240 mg/24 hours oral tablet, extended release 1 tablet = 240 mg, By Mouth, Daily, FURTHER REFILLS BY BUSINESS MAIL ENTRY CLERK, # 90 tablet, 0 Refills, Maintenance, 11/27/19 8:57:00 EDT, ER Tablet, [facility], 155, cm, 10/07/19 12:25:00 EDT, Height, 63, kg, 07/01/19 19:58:00 EST, Dry Weight Start Date: 11/27/19 Status: Ordered Flovent HFA 110 mcg/inh inhalation aerosol 2 puffs, Inhalation, 2 times a day, # 12 Gm, 0 Refills, Maintenance, 10/05/21 13:23:00 EST, Aerosol, [facility], Partial fill upon [...] 2 Refills, Maintenance, 05/06/20 15:17:00 EDT, [facility], 155, [...] 3 Refills, Maintenance, 10/25/21 11:13:00 EDT, Capsule, [facility], Partial fill upon [...] Active Bilateral leg pain(Confirmed) Active *BHN/CCA/CC-Matias Vela- [phone]/Health alf, active care coordination(Confirmed) Active POTS (postural orthostatic t achycardia syndrome)(Confirmed) Active Medulloblastoma(Confirmed) Active RUQ pain(Confirmed) Active Social History Social History Type Response Smoking Status Never smoker; Tobacc o user in household: No entered on: 04/11/16 Sex Female
--- OUTSIDE RECORDS SUMMARY | 2024-04-27 10:19 | XMS_ITS | Continuity of Care Document ---
Author Organization [facility] ter Address [address] [place] [address]- Care Team Providers Care Heel Boom Operator Name Role Phone Mary KEATING, Sisi Almanza Primary Care Physician Encounter [facility] Date(s): 01/09/21 - 01/10/[address] [id number] Encounter Diagnosis Syncope(Final) - 01/09/21 Discharge Disposition: A-D/C AMA Attending Physician: Levi Soriano MD Admitting Physician: Claudia Gore DO Referring Physician: Not on Staff, Referring MD [...] 12/22/20 12:53:00 EDT, Route to Pharmacy Electronically, [facility] Tablet, Partial fill upon patient request if the... Start Date: 12/22/20 Stop Date: 01/21/21 Status: Ordered albuterol CFC free 90 mcg/inh inhalation aerosol 2, puffs, Inhalation, Every 6 hours, PRN, # 2 each, Refills 11, Tot. Refills 11, Maintenance, 12/02/20 8:50:00 EDT, Aerosol, Route to Pharmacy Electronically, [id number], [facility], 155, cm, 06/03/20 13:15:00 [...] 6 Refills, Maintenance, 06/15/20 11:56:00 EST, Solution, [facility], 155, cm, 06/03/20 13:15:00 EST, Height, 68.5, kg, 06/03/20 13:18:00 EST, Dry Weight Start Date: 06/15/20 Status: Ordered dilTIAZem 240 mg/24 hours oral tablet, extended release 1 tablet = 240 mg, By Mouth, Daily, FURTHER REFILLS BY MOLD FILLER PLASTIC DOLLS, # 90 tablet, 0 Refills, Maintenance, 11/27/19 8:57:00 EDT, ER Tablet, [facility], 155, cm, 10/07/19 12:25:00 EDT, [...] tablet, 2 Refills, Maintenance, 05/06/20 15:17:00 EDT, [facility] 3, 155, cm, [...] 15:30:53 EST, Aerosol, Route to Pharmacy Electronically, [id number]... Start Date: 09/12/18 Stop Date: 02/09/19 Status: Ordered ProAir HFA 90 mcg/inh inhalation aerosol with adapter 2, puffs, Inhalation, Every 4 hours, PRN, use with spacer chamber BRAND NAME MEDICALLY NECESSARY, #8.5 Gm, Refills 0, Tot. Refills 0, Maintenance, 12/05/20 15:38:00 EDT, Aerosol, Route to Pharmacy Electronically, [id number]... Start Date: 12/05/20 Status: Ordered ramelteon 8 mg oral tablet 1 tablet = 8 mg, By Mouth, Daily at bedtime, # 30 tablet, 11 Refills, Maintenance, 12/02/20 8:48:00EDT, [facility], Partial fill [...] Refills, Maintenance, 08/04/20 12:39:00 EST, Capsule, [facility], [...] Active Bilateral leg pain(Confirmed) Active *BHN/CCA/CC-Matias Vela- [phone]/[facility], active care coordination(Confirmed) Active POTS (postural orthostatic t achycardia syndrome)(Confirmed) Active Medulloblastoma(Confirmed) Active RUQ pain(Confirmed) Active Viral URI(Confirmed) Active Results Radiology Reports * Exam Date Time Procedure Performing Provider Status 01/09/21 8:12 PM Chest Portable Gay Mata Aut h (Verified) Notes: (Chest Portable) Reason For Exam: syncope;Other: RESULT: Chest Portable Chest Portable Hx of Present Illness: Syncope; Reason: Other:; syncope; Clinical Question(s): Pneumonia COMPARISON: 05/03/2020 FINDINGS: LINES AND TUBES: Left-sided dual-lead pacemaker. LUNGS AND PLEURA: Clear lungs. Normal pulmonary vascularity. No pleural effusion. No pneumothorax. HEART, MEDIASTINUM AND K[place]ON: Heart is normal in size. Normal upper mediastinal and hilar contour. BONES AND SOFT TISSUES: No acute abnormality. IMPRESSION: No acute abnormality. WSN: [id number] Ordering Physician: Eliza Garcia Dictated By: Jeremy Stanley MD Dictated Date/Time: 01/09/21 8:20 pm Reviewed By: Jeremy Stanley MD Signed By: Jeremy Stanley MD Signed Date/Time: 01/09/21 8:20 pm Transcribed By: NIMO Transcribed Date/Time: 01/09/21 8:19 pm Vital Signs Most recent to oldest [Reference Range]: 1 2 3 Oxygen Saturation [94-100 %] 100 % (01/10/21 12:12 PM) 100 % (01/10/21 7:43 AM) 100 % (01/10/21 4:07 AM) Pulse Rate [55-90 bpm] 81 bpm (01/10/21 12:12 PM) 66 bpm (01/10/21 7:43 AM) 63 bpm (01/10/21 4:07 AM) Blood Pressure [90-138/55-84 mm Hg] 111/65mm Hg (01/10/21 12:12 PM) 109/63mm Hg (01/10/21 7:43 AM) 104/57mm Hg (01/10/21 4:07 AM) Respiratory Rate [16-30 br/min] 17 br/min (01/10/21 12:12 PM) 18 br/min (01/10/21 9:00 AM) 17 br/min (01/10/21 7:43 AM) Temperature [96.8-100.4 DegF] 98.4 DegF (01/10/21 12:12 PM) 98.6 DegF (01/10/21 7:43 AM) 97.7 DegF (01/10/21 4:07 AM) Mode of Delivery (Oxygen) Room air (01/10/21 12:12 PM) Room air (01/10/21 7:43 AM) Room air (01/10/21 4:07 AM) Blood pressure sites Arm, right (01/10/21 12:12 PM) Arm, right (01/10/21 7:43 AM) Arm, right (01/10/21 4:07 AM) Temperature Route Oral (01/10/21 12:12 PM) Oral (01/10/21 7:43 AM) Oral (01/10/21 4:07 AM) Social History Social History Type Response Smoking Status Never smoker; Tobacc o user in household: No entered on: 04/11/16 Sex
--- OUTSIDE RECORDS SUMMARY | 2024-04-27 10:19 | XMS_ITS | Continuity of Care Document ---
Author Organization [facility] Address [address] [place] [address]- Care Team Providers Care Title One Kindergarten Teacher Name Role Phone Sisi Hernandez MD Primary Care Physician [phone] Encounter [facility] Date(s): 06/27/22 - 07/27/22 [facility] [address] [place], [place] [address] Allergies, Adverse Reactions, Alerts [...] 11/16/21 23:51:00 EDT, Route to Pharmacy Electronically, [facility], Partial fill upon patient request if the presc... Start Date: 11/16/21 Status: Ordered Adderall XR 20 mg oral capsule, extended release 1 capsule = 20 mg, By Mouth, Daily in AM, # 30 capsule, 0 Refills, Maintenance, 12/15/22 11:52:00 EST, ER Capsule, Partial fill upon patient request if the prescription is for a schedule II opioid drug. Start Date: 07/12/22 Status: Ordered albuterol CFC free 90 mcg/inh inhalation aerosol 2, puffs, Inhalation, Every 6 hours, PRN, # 2 each, Refills 11, Tot. Refills 11, Maintenance, 02/15/22 13:12:00 EDT, Aerosol, Route to Pharmacy Electronically, [id number], [facility], ONLY [...] 6 Refills, Maintenance, 06/06/22 12:08:00 EST, Solution, [facility] 3, 155, cm, 04/06/22 14:56:00 EDT, [...] 13:10:00 EDT, Aerosol, [facility], new dosage, 155, cm, 12/08/21 [...] 11/16/21 23:51:00 EDT, Route to Pharmacy Electronically, [facility], Partial fill upon patient request if the prescription is... Start Date: 11/16/21 Status: Ordered LORazepam 0.5 mg oral tablet See Instructions, TAKE 1 TABLET BY MOUTH TWO TIMES A DAY NEEDED FOR ANXIETY, # 28 tablet, 2 Refills, Maintenance, 06/06/22 10:45:00 EST, [facility], 155, cm, 04/06/22 14:56:00 [...] 3 Refills, Maintenance, 06/05/22 14:27:00 EST, Capsule, [facility], Partial fill upon patient request [...] Bilateral leg pain Confirmed Active *BHN/CCA/CC-Matias Vela- [phone]/Health fpc, active care coordination Confirmed Active POTS [...] Name: Sisi Hernandez MD Position: [facility] Primary Care Physician Member Role: PCP Address: Address: [address] [place] [address] - Name: Lizzette To RN Position: [facility] RN Member Role: Primary Care Nurse Name: Karolina Adkins MD Position: [facility] Physician -Physician Practices Member Role: Lifetime Consulting Physician Address: Address: [address] [place] [address] [facility] [place], [place] - Name: Isadora Godfrey RN Position: [facility] RN Member Role: Primary Care Nurse Name: Rossy Rowe RN Position: [facility] RN Member Role: Primary Care Nurse Name: Bela Mcmahon RN Position: [facility] Automotive Dismantler Member Role: Primary Care Nurse Name: Nicole Hernandez RN Position: [facility] RN Member Role: Primary Care Nurse Name: Zac Castillo RN Position: [facility] ED RN W/OE and Tasks Member Role: Primary Care Nurse Name: Jeanne Grande RN Position: [facility] RN Member Role: Primary Care Nurse Care Team Related Persons Name: BEAR TURNER Address: home [address] [place] [address] Name: ISATU ECKERT Address: home [place], [place] Name: ISAAC VERDE Address: home [address] [place] [address] Name: ADRY DURANT Name: PANCHO JEROME Address: home [place], [place]
--- OUTSIDE RECORDS SUMMARY | 2024-04-27 10:19 | XMS_ITS | Continuity of Care Document ---
Author Organization [facility] Address [address] [place] [address]- Care Team Providers Care Broadcast News Producer Name Role Phone Sisi Hernandez MD Primary Care Physician [phone] Encounter [facility] [id number] Date(s): 02/02/22 - 02/09/22 [facility] [address] [place], [place] [address] Attending Physician: Not on Staff, [...] 11/16/21 23:51:00 EDT, Route to Pharmacy Electronically, [facility], Partial fill upon patient request if the presc... Start Date: 11/16/21 Status: Ordered albuterol CFC free 90 mcg/inh inhalation aerosol 2, puffs, Inhalation, Every 6 hours, PRN, # 2 each, Refills 11, Tot. Refills 11, Maintenance, 10/05/21 9:52:00 EST, Aerosol, Route to Pharmacy Electronically, [id number], [facility], ONLY ALBUTEROL HFA, [...] 6 Refills, Maintenance, 10/03/21 12:18:00 EST, Solution, [facility] 3, 155, cm, 09/27/21 15:08:00 EST, Height, 68.5, kg, 06/03/20 13:18:00 EST, Dry Weight Start Date: 10/03/21 Status: Ordered cyanocobalamin 1000 mcg/ml injectable solution 1 mL = 1,000 mcg, Intramuscular, Every 30 days, # 3 mL, 6 Refills, Maintenance, 06/15/20 11:56:00 EST, Solution, [facility] 3, 155, cm, 06/03/20 13:15:00 EST, Height, 68.5, kg, 06/03/20 13:18:00 EST, Dry Weight Start Date: 06/15/20 Status: Ordered dilTIAZem 240 mg/24 hours oral tablet, extended release 1 tablet = 240 mg, By Mouth, Daily, FURTHER REFILLS BY RETURNED CASE INSPECTOR, # 90 tablet, 0 Refills, Maintenance, 11/27/19 8:57:00 EDT, ER Tablet, [facility] 3, 155, cm, 10/07/19 12:25:00 EDT, Height, 63, kg, 07/01/19 19:58:00 EST, Dry Weight Start Date: 11/27/19 Status: Ordered Flovent HFA 110 mcg/inh inhalation aerosol 2 puffs, Inhalation, 2 times a day, # 12 Gm, 0 Refills, Maintenance, 10/05/21 13:23:00 EST, Aerosol, [facility], Partial [...] 11/16/21 23:51:00 EDT, Route to Pharmacy Electronically, [facility], Partial [...] Refills, Maintenance, 11/16/21 23:51:00 EDT, DIS Tablet, [facility], Partial fill upon patient request if the prescription is for a schedule II o... Start Date: 11/16/21 Status: Ordered Peridex 0.12% liquid 15 mL = 0.018 Gm, By Mouth, 2 times a day, # 420 mL, 0 Refills, Maintenance, 01/18/22 8:47:00 EDT, Liquid, [facility], Partial fill upon patient request [...] 3 Refills, Maintenance, 10/25/21 11:13:00 EDT, Capsule, [facility], Partial fill upon [...] Active Bilateral leg pain(Confirmed) Active *BHN/CCA/CC-Matias Vela- [phone]/Health fpc, active care coordination(Confirmed) Active POTS (postural orthostatic t achycardia syndrome)(Confirmed) Active Medulloblastoma(Confirmed) Active RUQ pain(Confirmed) Active Social History Social History Type Response Smoking Status Never smoker; Tobacc o user in household: No entered on: 04/11/16 Sex Female
--- OUTSIDE RECORDS SUMMARY | 2024-04-27 10:19 | XMS_ITS | Continuity of Care Document ---
Author Organization [facility] Address [address] [place] [address]- Care Team Providers Care Electromechanical Technologist Name Role Phone Sisi Hernandez MD Primary Care Physician Encounter [facility] [place] Date(s): 07/17/22 - 08/16/22 [facility] [address], [place] [address] Attending Physician: Angel Gomez Admitting Physician: AdmtrAngel Referring Physician: Admtr, Ar8 [...] 13:12:00 EDT, Aerosol, Route to Pharmacy Electronically, [id number], [facility], ONLY ALBUTEROL HFA, CANCEL... Start Date: 02/15/22 Stop Date: 02/10/23 Status: Ordered Colace sodium 100 mg oral capsule 100 mg, 1, capsule, By Mouth, 2 times a day, PRN, # 30 capsule, Refills 0, Tot. Refills 0, Maintenance, for constipation, 07/31/22 11:03:00 EST, Route to Pharmacy Electronically, [facility], Partial fill upon patient [...] 6 Refills, Maintenance, 06/06/22 12:08:00 EST, Solution, [facility], 155, cm, 04/06/22 14:56:00 [...] 0 Refills, Maintenance, 02/15/22 13:10:00 EDT, Aerosol, [facility], new dosage, 155, cm, [...] 07/31/22 11:03:00 EST, Route to Pharmacy Electronically, [facility], Partial fill upon patient request if the prescription is for a schedule... Start Date: 07/31/22 Status: Ordered LORazepam 0.5 mg oral tablet See Instructions, TAKE 1 TABLET BY MOUTH TWO TIMES A DAY NEEDED FOR ANXIETY, # 28 tablet, 2 Refills, Maintenance, 06/06/22 10:45:00 EST, [facility], 155, cm, 04/06/22 14:56:00 EDT, Height, 67.5, kg, 04/06/22 14:56:00 EDT, Dry Weight Start Date: 06/06/22 Status: Ordered Macrobid macrocrystals-monohydrate 100 mg oral capsule 1 capsule = 100 mg, By Mouth, 2 times a day, for 5 days, # 10 capsule, 0 Refills, Acute 08/21/22 13:08:00 EST, 08/16/22 13:08:00 EST, Capsule, [facility], Partial fill upon patient request [...] Refills, Maintenance, 08/01/22 6:06:00 EST, REC Powder, [facility], Partial fill upon patient request [...] 0 Refills, Maintenance, 08/01/22 6:06:00 EST, Tablet, [facility], Partial fill upon patient request if the prescription is for a schedule II opioid drug., 155, cm,... Start Date: 08/01/22 Status: Ordered simethicone 80 mg oral tablet, chewable 80 mg, 1, tablet, Chew, 4 times a day, # 12 tablet, Refills 0, Tot. Refills 0, Maintenance, 07/31/22 11:03:00 EST, Route to Pharmacy Electronically, [facility], Partial fill upon patient [...] 07/31/22 11:03:00 EST, Route to Pharmacy Electronically, [facility], Partial fill upon patient [...] 3 Refills, Maintenance, 06/05/22 14:27:00 EST, Capsule, [facility], Partial fill upon patient [...] Bilateral leg pain Confirmed Active *BHN/CCA/CC-Matias Menas- [phone]/Health retirement, active care coordination Confirmed Active POTS [...] Sisi Hernandez MD Position: [facility] Primary Care Physician Member Role: PCP Address: Address: [address] [place] [address] [facility] Name: Lizzette To RN Position: [facility] RN Member Role: Primary Care Nurse Name: Karolina Adkins MD Position: [facility] Physician -Physician Practices Member Role: Lifetime Consulting Physician Address: Address: [address] [place] [address] [facility] [place] [facility] Name: Isadora Godfrey RN Position: [facility] RN Member Role: Primary Care Nurse Name: Rossy Rowe RN Position: [facility] SN RN Member Role: Primary Care Nurse Name: Cindi Hayward Position: [facility] RN Member Role: Primary Care Nurse Name: Bela Mcmahon RN Position: [facility] Hospital Multiple Tube Winding Machine Operator Member Role: Primary Care Nurse Name: Nicole Hernandez RN Position: [facility] RN Member Role: Primary Care Nurse Name: Zac Castillo RN Position: [facility] ED RN W/OE and Tasks Member Role: Primary Care Nurse Name: Jeanne Grande RN Position: [facility] RN Member Role: Primary Care Nurse Care Team Related Persons Name: TURNER, BEAR Address: home [address] [place], [place] Name: BEAR TURNER SECONDARY Address: home [address] [place], [place] Name: HOLDARD, ISATU Address: [place] [address] Name: ISAAC VERDE PRIMARY Address: [address] [address] Name: ADRY DURANT Name: PANCHO JEROME Address: [place] [address]
--- OUTSIDE RECORDS SUMMARY | 2024-04-27 10:19 | XMS_ITS | Continuity of Care Document ---
Author Organization [facility] Address [address] [place] [address]- Care Team Providers Care Microarray Operations Vice President Name Role Phone Sisi Hernandez MD Primary Care Physician Encounter [facility] Date(s): 11/16/19 - 12/16/19 [facility] [address] [place] [address] Attending Physician: Angel Gomez Admitting Physician: AdmAngel can Referring Physician: trAngel Allergies, Adverse Reactions, Alerts Substance Reaction Severity [...] 8:59:00 EDT, Aerosol, Route to Pharmacy Electronically, [id number], [facility], 155, cm, 10/07/19 12:25:00 E... Start [...] mg, By Mouth, Daily, FURTHER REFILLS BY TIRE TESTER, # 90 tablet, 0 Refills, Maintenance, 11/27/19 8:57:00 EDT, ER Tablet, [facility], 155, cm, 10/07/19 12:25:00 EDT, Height, 63, kg, 07/01/19 19:58:00 EST, Dry Weight Start Date: 11/27/19 Status: Ordered LORazepam 0.5 mg oral tablet See Instructions, TAKE 1 TABLET BY MOUTH TWO TIMES A DAY NEEDED FOR ANXIETY, # 28 tablet, 2 Refills, Maintenance, 11/02/19 10:43:00 EDT, [facility], 155, cm, 10/07/19 12:25:00 EDT, Height, [...] 15:30:53 EST, Aerosol, Route to Pharmacy Electronically, [id number]... Start Date: 09/12/18 Stop Date: 02/09/19 Status: Ordered Vitamin B12 1000 mcg oral tablet 1 tablet = 1,000 mcg, By Mouth, Daily, # 90 tablet, 3 Refills, Maintenance, 11/27/19 8:58:00 EDT, Tablet, [facility], 155, cm, 10/07/19 12:25:00 [...] Near syncope(Confirmed) Active Bilateral leg pain(Confirmed) Active *[facility]/CC-Geno Neath-[phone]/Health long term, active care coordination(Confirmed) Active Matias Vela [facility] Care [facility] [phone](Confirmed) Active POTS (postural orthostatic t achycardia syndrome)(Confirmed) Active Medulloblastoma(Confirmed) Active RUQ pain(Confirmed) Active Social History Social History Type Response Smoking Status Never smoker; Tobacc o user in household: No entered on: 04/11/16 Sex
--- OUTSIDE RECORDS SUMMARY | 2024-04-27 10:19 | XMS_ITS | Continuity of Care Document ---
Author Organization [facility] Address [address] [place] [address]- Care Team Providers Care Music Leader Name Role Phone Sisi Hernandez MD Primary Care Physician [phone] Encounter [facility] Date(s): 11/03/20 - 11/10/20 [facility] [address] [place], [place] [address] Attending Physician: Not on [...] 8:59:00 EDT, Aerosol, Route to Pharmacy Electronically, [id number], [facility], 155, cm, 10/07/19 12:25:00 [...] 6 Refills, Maintenance, 06/15/20 11:56:00 EST, Solution, [facility], 155, cm, 06/03/20 13:15:00 EST, Height, 68.5, kg, 06/03/20 13:18:00 EST, Dry Weight Start Date: 06/15/20 Status: Ordered dilTIAZem 240 mg/24 hours oral tablet, extended release 1 tablet = 240 mg, By Mouth, Daily, FURTHER REFILLS BY GAME FARM SUPERVISOR, # 90 tablet, 0 Refills, Maintenance, 11/27/19 8:57:00 EDT, ER Tablet, [facility], 155, cm, 10/07/19 12:25:00 [...] tablet, 2 Refills, Maintenance, 05/06/20 15:17:00 EDT, [facility] 3, 155, cm, 05/03/20 18:55:00 [...] 15:30:53 EST, Aerosol, Route to Pharmacy Electronically, [id number]... Start Date: 09/12/18 Stop Date: 02/09/19 Status: [...] 2 Refills, Maintenance, 08/04/20 12:39:00 EST, Capsule, [facility], Partial fill upon patient [...] Active Bilateral leg pain(Confirmed) Active *BHN/CCA/CC-Matias Vela- [phone]/Health group home, active care coordination(Confirmed) Active POTS (postural orthostatic t achycardia syndrome)(Confirmed) Active Medulloblastoma(Confirmed) Active RUQ pain(Confirmed) Active Viral URI(Confirmed) Active Social History Social History Type Response Smoking Status Never smoker; Tobacc o user in household: No entered on: 04/11/16 Sex
--- OUTSIDE RECORDS SUMMARY | 2024-04-27 10:19 | XMS_ITS | Continuity of Care Document ---
Author Organization [facility] Address [address] [place] [address]- Care Team Providers Care Capacity Planning Engineer Name Role Phone Sisi Hernandez MD Primary Care Physician [place] [facility] [place]s): 11/04/21 - 03/04/22 [facility] [address] [place], [place] [address] Attending Physician: Sisi Hernandez MD Allergies, [...] 11/16/21 23:51:00 EDT, Route to Pharmacy Electronically, [facility], Partial fill upon patient request if the presc... Start Date: 11/16/21 Status: Ordered albuterol CFC free 90 mcg/inh inhalation aerosol 2, puffs, Inhalation, Every 6 hours, PRN, # 2 each, Refills 11, Tot. Refills 11, Maintenance, 02/15/22 13:12:00 EDT, Aerosol, Route to Pharmacy Electronically, [id number], [facility], ONLY ALBUTEROL HFA, CANCEL... [...] 6 Refills, Maintenance, 10/03/21 12:18:00 EST, Solution, [facility] 3, 155, cm, 09/27/21 15:08:00 EST, Height, 68.5, kg, 06/03/20 13:18:00 EST, Dry Weight Start Date: 10/03/21 Status: Ordered cyanocobalamin 1000 mcg/ml injectable solution 1 mL = 1,000 mcg, Intramuscular, Every 30 days, # 3 mL, 6 Refills, Maintenance, 06/15/20 11:56:00 EST, Solution, [facility] 3, 155, cm, 06/03/20 13:15:00 EST, Height, 68.5, kg, 06/03/20 13:18:00 EST, Dry Weight Start Date: 06/15/20 Status: Ordered dilTIAZem 240 mg/24 hours oral tablet, extended release 1 tablet = 240 mg, By Mouth, Daily, FURTHER REFILLS BY WHEEL POLISHER, # 90 tablet, 0 Refills, Maintenance, 11/27/19 8:57:00 EDT, ER Tablet, [facility] 3, 155, cm, 10/07/19 12:25:00 EDT, Height, 63, kg, 07/01/19 19:58:00 EST, Dry Weight Start Date: 11/27/19 Status: Ordered Flovent HFA 220 mcg/inh inhalation aerosol 2 puffs, Inhalation, 2 times a day, new dosage, # 12 Gm, 0 Refills, Maintenance, 02/15/22 13:10:00 EDT, Aerosol, [facility], new dosage, 155, cm, [...] 11/16/21 23:51:00 EDT, Route to Pharmacy Electronically, [facility], Partial fill upon patient request if the prescription is... Start Date: 11/16/21 Status: Ordered LORazepam 0.5 mg oral tablet See Instructions, TAKE 1 TABLET BY MOUTH TWO TIMES A DAY NEEDED FOR ANXIETY, # 28 tablet, 2 Refills, Maintenance, 05/06/20 15:17:00 EDT, [facility], 155, cm, 05/03/20 [...] Refills, Maintenance, 11/16/21 23:51:00 EDT, DIS Tablet, [facility], Partial fill upon patient request if the prescription is for a schedule II o... Start Date: 11/16/21 Status: Ordered Peridex 0.12% liquid 15 mL = 0.018 Gm, By Mouth, 2 times a day, # 420 mL, 0 Refills, Maintenance, 01/18/22 8:47:00 EDT, Liquid, [facility], Partial fill upon patient request if [...] 3 Refills, Maintenance, 10/25/21 11:13:00 EDT, Capsule, [facility], Partial fill upon [...] Active Bilateral leg pain(Confirmed) Active *BHN/CCA/CC-Matias Vela- [phone]/Health longterm, active care coordination(Confirmed) Active POTS (postural orthostatic t achycardia syndrome)(Confirmed) Active Medulloblastoma(Confirmed) Active RUQ pain(Confirmed) Active Social History Social History Type Response Smoking Status Never smoker; Tobacc o user in household: No entered on: 04/11/16 Sex Female
--- OUTSIDE RECORDS SUMMARY | 2024-04-27 10:19 | XMS_ITS | Continuity of Care Document ---
Author Organization [facility] Address [address], [address] [place] [address]- Care Team Providers Care Photography And Prints Curator Name Role Phone Sisi Hernandez MD [facility] Care [id number] - 09[facility]28/[facility] [address] [place], [place] [address] Attending Physician: Abby Villalpando MD Referring Physician: [...] 13:12:00 EDT, Aerosol, Route to Pharmacy Electronically, [id number], [facility], ONLY ALBUTEROL HFA, CANCEL... Start Date: 02/15/22 Stop Date: 02/10/23 Status: Ordered Colace sodium 100 mg oral capsule 100 mg, 1, capsule, By Mouth, 2 times a day, PRN, # 30 capsule, Refills 0, Tot. Refills 0, Maintenance, for constipation, 07/31/22 11:03:00 EST, Route to Pharmacy Electronically, [facility], Partial fill upon patient [...] 6 Refills, Maintenance, 09/04/22 8:50:00 EST, Solution, [facility], 155, [...] 0 Refills, Maintenance, 02/15/22 13:10:00 EDT, Aerosol, [facility], new dosage, [...] Route to Pharmacy Electronically, [facility], Partial fill upon patient request if the prescription is for a schedule... Start Date: 07/31/22 Status: Ordered LORazepam 0.5 mg oral tablet See Instructions, TAKE 1 TABLET BY MOUTH TWO TIMES A DAY NEEDED FOR ANXIETY, # 28 tablet, 2 Refills, Maintenance, 06/06/22 10:45:00 EST, [facility], 155, cm, 04/06/22 14:56:00 EDT, [...] Refills, Maintenance, 08/01/22 6:06:00 EST, REC Powder, [facility] 3, Partial fill upon patient [...] 0 Refills, Maintenance, 08/01/22 6:06:00 EST, Tablet, [facility], Partial fill upon patient request if the prescription is for a schedule II opioid drug., 155, cm,... Start Date: 08/01/22 Status: Ordered Symbicort 160mcg/4.5mcg Inhaler 2, puffs, Inhalation, 2 times a day, # 3 each, Refills 5, Tot. Refills 5, Maintenance, 09/27/22 12:00:00 EST, Aerosol, Route to Pharmacy Electronically, [id number], [facility], replaces flovent inhaler, 155, cm,... [...] Route to Pharmacy Electronically, [facility], Partial fill upon patient [...] Refills, Maintenance, 06/05/22 14:27:00 EST, Capsule, [facility], Partial fill upon patient request [...] Confirmed Active Bilateral leg pain Confirmed Active *BHN/CCA/CC-Matiasflakito Vela- [phone]/Health [facility], active care coordination Confirmed Active POTS (postural orthostatic tachycardia syndrome) Confirmed Active Medulloblastoma Confirmed Active RUQ pain Confirmed Active Procedures Procedure Date Related Diagnosis Body Site Status Laparoscopic total hysterectomy 07/31/22 Completed Repair of rectocele 07/31/22 Compl eted Vital Signs Most recent to oldest [Reference Range]: 1 Height 155 cm (09/21/22 4:29 PM) Weight 70.18 kg (09/21/22 4:29 PM) Pulse Rate [55-90 bpm] 87 bpm (09/21/22 4:29 PM) Body Mass Index [18.5-24.99 kg/m2] 29.21 kg/m2 *H* (09/21/22 4:29 PM) Blood Pressure [90-138/55-84 mm Hg] 103/ 62mm Hg (09/21/22 4:29 PM) Respiratory Rate [16-30 br/min] 22 br/mi n (09/21/22 4:29 PM) Blood pressure sites Arm, left (09/21/22 4:29 PM) Weight Obtained Via Standing scale (09/21/22 4:29 PM) Social History Social History Type Response Smoking Status Never smoker; Tobacc o user in household: No entered on: 04/11/16 Sex Patient Care team information Care Team Personnel Name: Vidhya Grace RN Position: S RN Member Role: Primary Care Nurse Name: Sisi Hernandez MD Position: [facility] Primary Care Physician Member Role: PCP Address: Address: [address] [place] [address] Name: Lizzette To RN Position: [facility] RN Member Role: Primary Care Nurse Name: Karolina Adkins MD Position: [facility] Physician -Physician Practices Member Role: Lifetime Consulting Physician Address: Address: [address] [place] [address] [facility] [place] [address]- Name: Isadora Godfrey RN Position: [facility] RN Member Role: Primary Care Nurse Name: Rossy Rowe RN Position: [facility] SN RN Member Role: Primary Care Nurse Name: Cindi Hayward Position: [facility] RN Member Role: Primary Care Nurse Name: Bela Mcmahon RN Position: [facility] Hospital Sludge Control Attendant Member Role: Primary Care Nurse Name: Nicole Hernandez RN Position: [facility] RN Member Role: Primary Care Nurse Name: Zac Castillo RN Position: [facility] ED RN W/OE and Tasks Member Role: Primary Care Nurse Name: Jeanne Grande RN Position: [facility] RN Member Role: Primary Care Nurse Care Team Related Persons Name: BEAR TURNER Address: home [address] [place] [id number] Name: BEAR TURNER SECONDARY Address: home [address] [place] [id number] Name: ISATU ECKERT Address: [place] [address] Name: ISAAC VERDE PRIMARY Address: home [address] [place] [id number] Name: ADRY DURANT Name: PANCHO JEROME Address: [place] [address]
--- OUTSIDE RECORDS SUMMARY | 2024-04-27 10:19 | XMS_ITS | Continuity of Care Document ---
Author Organization [facility] Address [address] [place] [address]- Care Team Providers Care Justice Court Deputy Clerk Name Role Phone Sisi Hernandez MD Primary Care Physician [place] [facility] [id number] Date(s): 03/07/20 - 04/10/20 [facility] [address] [place] [address]- [facility] Attending Physician: Not on Staff, Attending [...] 8:59:00 EDT, Aerosol, Route to Pharmacy Electronically, [id number], [facility], 155, cm, 10/07/19 12:25:00 [...] 5 Refills, Maintenance, 03/04/20 9:53:00 EDT, Solution, [facility], 155, cm, 10/07/19 12:25:00 EDT, Height, 63, kg, 07/01/19 19:58:00 EST, Dry Weight Start Date: 03/04/20 Status: Ordered dilTIAZem 240 mg/24 hours oral tablet, extended release 1 tablet = 240 mg, By Mouth, Daily, FURTHER REFILLS BY LABOR RELATIONS CONSULTANT, # 90 tablet, 0 Refills, Maintenance, 11/27/19 8:57:00 EDT, ER Tablet, [facility], 155, cm, 10/07/19 12:25:00 [...] tablet, 2 Refills, Maintenance, 11/02/19 10:43:00 EDT, [facility], 155, cm, 10/07/19 12:25:00 EDT, Height, [...] 15:30:53 EST, Aerosol, Route to Pharmacy Electronically, [id number]... Start Date: 09/12/18 Stop Date: 02/09/19 Status: [...] Active Bilateral leg pain(Confirmed) Active *BHN/CCA/CC-Matias Vela- [phone]/Health [facility], active care coordination(Confirmed) Active POTS (postural orthostatic t achycardia syndrome)(Confirmed) Active Medulloblastoma(Confirmed) Active RUQ pain(Confirmed) Active Social History Social History Type Response Smoking Status Never smoker; Tobacc o user in household: No entered on: 04/11/16 Sex
--- OUTSIDE RECORDS SUMMARY | 2024-04-27 10:19 | XMS_ITS | Continuity of Care Document ---
Author Organization [facility] Address [address] [place] [address]- Care Team Providers Care News Intern Name Role Phone Mary KEATING, Sisi Almanza Primary Care Physician [place] [facility] [place]21 [facility] [address] [place], [place] [address] Allergies, Adverse Reactions, Alerts [...] 8:50:00 EDT, Aerosol, Route to Pharmacy Electronically, [id number], [facility], 155, cm, 06/03/20 13:15:00 E... [...] Refills, Maintenance, 06/15/20 11:56:00 EST, Solution, [facility], 155, cm, 06/03/20 13:15:00 EST, Height, 68.5, kg, 06/03/20 13:18:00 EST, Dry Weight Start Date: 06/15/20 Status: Ordered dilTIAZem 240 mg/24 hours oral tablet, extended release 1 tablet = 240 mg, By Mouth, Daily, FURTHER REFILLS BY COMMERCIAL FRONT LOAD DRIVER, # 90 tablet, 0 Refills, Maintenance, 11/27/19 8:57:00 EDT, ER Tablet, [facility], 155, cm, 10/07/19 12:25:00 [...] 2 Refills, Maintenance, 05/06/20 15:17:00 EDT, [facility], 155, cm, 05/03/20 [...] 15:30:53 EST, Aerosol, Route to Pharmacy Electronically, [id number]... Start Date: 09/12/18 Stop Date: 02/09/19 Status: Ordered ProAir HFA 90 mcg/inh inhalation aerosol with adapter 2, puffs, Inhalation, Every 4 hours, PRN, use with spacer chamber BRAND NAME MEDICALLY NECESSARY, #8.5 Gm, Refills 0, Tot. Refills 0, Maintenance, 12/05/20 15:38:00 EDT, Aerosol, Route to Pharmacy Electronically, [id number]... Start Date: 12/05/20 Status: Ordered syringe and [...] Refills, Maintenance, 08/04/20 12:39:00 EST, Capsule, [facility], [...] syncope(Confirmed) Active Bilateral leg pain(Confirmed) Active *BHN/CCA/CC-Matias Mirian- [phone]/Health half-way, active care coordination(Confirmed) Active POTS (postural orthostatic t achycardia syndrome)(Confirmed) Active Medulloblastoma(Confirmed) Active RUQ pain(Confirmed) Active Viral URI(Confirmed) Active Social History Social History Type Response Smoking Status Never smoker; Tobacc o user in household: No entered on: 04/11/16 Sex
--- OUTSIDE RECORDS SUMMARY | 2024-04-27 10:20 | XMS_ITS | Continuity of Care Document ---
Author Organization [facility] Address [address] [place] [address]- Care Team Providers Care Clinic Receptionist Name Role Phone Mary KEATING, Sisi Almanza Primary Care Physician [phone] [facility] [place] Date(s): 10/26/21 - 11/25/[address] [address] Attending Physician: Angel Gomez Admitting Physician: [...] 23:51:00 EDT, Route to Pharmacy Electronically, [facility], Partial fill upon patient request if the presc... Start Date: 11/16/21 Status: Ordered Adderall 5 mg oral tablet 1 tablet = 5 mg, By Mouth, 2 times a day, to take with long acting, # 60 tablet, 0 Refills, Maintenance, 10/25/21 15:46:00 EDT, Tablet, [facility], Partial fill [...] Refills, Maintenance, 10/25/21 15:46:00 EDT, ER Capsule, [facility], Partial fill upon patient r... Start Date: 10/25/21 Status: Ordered albuterol CFC free 90 mcg/inh inhalation aerosol 2, puffs, Inhalation, Every 6 hours, PRN, # 2 each, Refills 11, Tot. Refills 11, Maintenance, 10/05/21 9:52:00 EST, Aerosol, Route to Pharmacy Electronically, [id number], [facility], ONLY ALBUTEROL HFA, CANCEL [...] Refills, Maintenance, 10/03/21 12:18:00 EST, Solution, [facility], 155, cm, 09/27/21 15:08:00 [...] mg, By Mouth, Daily, FURTHER REFILLS BY INFO PRINT PRESS OPERATOR, # 90 tablet, 0 Refills, Maintenance, 11/27/19 8:57:00 EDT, ER Tablet, [facility], 155, cm, 10/07/19 12:25:00 EDT, Height, 63, kg, 07/01/19 19:58:00 EST, Dry Weight Start Date: 11/27/19 Status: Ordered Flovent HFA 110 mcg/inh inhalation aerosol 2 puffs, Inhalation, 2 times a day, # 12 Gm, 0 Refills, Maintenance, 10/05/21 13:23:00 EST, Aerosol, [facility], Partial fill [...] 23:51:00 EDT, Route to Pharmacy Electronically, [facility] [...] Maintenance, 11/16/21 23:51:00 EDT, DIS Tablet, [facility], Partial fill [...] 3 Refills, Maintenance, 10/25/21 11:13:00 EDT, Capsule, [facility], Partial [...] Active Bilateral leg pain(Confirmed) Active *BHN/CCA/CC-Matias Vela- [phone]/Health [facility], active care coordination(Confirmed) Active POTS (postural orthostatic t achycardia syndrome)(Confirmed) Active Medulloblastoma(Confirmed) Active RUQ pain(Confirmed) Active Social History Social History Type Response Smoking Status Never smoker; Tobacc o user in household: No entered on: 04/11/16 Sex Female
--- OUTSIDE RECORDS SUMMARY | 2024-04-27 10:20 | XMS_ITS | Continuity of Care Document ---
Author Organization [facility] Address [address] [place] [address]- Care Team Providers Care Visual Designer Name Role Phone Sisi Hernandez MD Primary Care Physician [place] [facility] [place] 11/27/19 - 12/04/19 [facility] [address] [place] [address]- [facility] Encounter Diagnosis Anxiety(Discharge Diagnosis) - 11/27/19 POTS (postural orthostatic tachycardia syndrome)(Discharge Diagnosis) - 11/27/19 Asthma(Discharge Diagnosis) - 11/27/19 Bilateral leg pain(Discharge Diagnosis) - 11/27/19 Attending Physician: Sisi Hernandez MD Allergies, Adverse [...] 8:59:00 EDT, Aerosol, Route to Pharmacy Electronically, [id number], [facility], 155, cm, 10/07/19 12:25:00 [...] mg, By Mouth, Daily, FURTHER REFILLS BY AUTOMOBILE ACCESSORIES SALESPERSON, # 90 tablet, 0 Refills, Maintenance, 11/27/19 8:57:00 EDT, ER Tablet, [facility] 3, 155, cm, 10/07/19 12:25:00 EDT, Height, 63, kg, 07/01/19 19:58:00 EST, Dry Weight Start Date: 11/27/19 Status: Ordered LORazepam 0.5 mg oral tablet See Instructions, TAKE 1 TABLET BY MOUTH TWO TIMES A DAY NEEDED FOR ANXIETY, # 28 tablet, 2 Refills, Maintenance, 11/02/19 10:43:00 EDT, [facility], 155, cm, 10/07/19 12:25:00 EDT, Height, 63, kg, 07/01/19 19:58:00 EST, Dry Weight Start Date: 11/02/19 Status: Ordered magnesium oxide 400 mg oral tablet 1 tablet = 400 mg, By Mouth, Daily, for 14 days, # 14 tablet, 0 Refills, Acute 12/11/19 8:54:00 EDT, 11/27/19 8:54:00 EDT, Tablet, [facility] 3, 155, cm, 10/07/19 12:25:00 EDT, Height, 63, kg, 07/01/19 19:58:00 EST, Dry Weight Start Date: 11/27/19 Stop Date: 12/11/19 Status: Ordered nitroglycerin 0.4 mg sublingual tablet [...] 15:30:53 EST, Aerosol, Route to Pharmacy Electronically, [id number]... Start Date: 09/12/18 Stop Date: 02/09/19 Status: Ordered Vitamin B12 1000 mcg oral tablet 1 tablet = 1,000 mcg, By Mouth, Daily, # 90 tablet, 3 Refills, Maintenance, 11/27/19 8:58:00 EDT, Tablet, [facility], 155, cm, 10/07/19 12:25:00 [...] Near syncope(Confirmed) Active Bilateral leg pain(Confirmed) Active *N/[facility]/CCGuzman [facility]-[phone]/Health alf, active care coordination(Confirmed) Active Matias Vela [facility] Care [facility] Film Splicer [phone](Confirmed) Active POTS (postural orthostatic t achycardia syndrome)(Confirmed) Active Medulloblastoma(Confirmed) Active RUQ pain(Confirmed) Active Diagnosis Diagnosis Type Effective Dates Health Status Clinical Service Informant Anxiety Discharge Diagnosis 11/27/19 POTS (postural orthostatic tachycardia syndrome) Discharge Diagnosis 11/27/19 Asthma Discharge Diagnosis 11/27/19 Bilateral leg pain Discharge Diagnosis 11/27/19 Social History Social History Type Response Smoking Status Never smoker; Tobacc o user in household: No entered on: 04/11/16 Sex
--- OUTSIDE RECORDS SUMMARY | 2024-04-27 10:20 | XMS_ITS | Continuity of Care Document ---
Author Organization [facility] Address [address] [place] [address]- Care Team Providers Care Civil Engineering Professor Name Role Phone Sisi Hernandez MD [id number] [address] [place] [id number] Attending Physician: [...] 0 Refills, Maintenance, 06/09/21 14:32:00 EST, Tablet, [facility] Start Date: 06/09/21 Status: Ordered Adderall XR 10 mg oral capsule, extended release 1 capsule = 10 mg, By Mouth, Daily in AM, to take with short acting, # 30 capsule, 0 Refills, Maintenance, 06/09/21 14:31:00 EST, ER Capsule, [facility], Partial fill upon patient request if the prescription is for a schedule II opioid d... Start Date: 06/09/21 Status: Ordered albuterol CFC free 90 mcg/inh inhalation aerosol 2, puffs, Inhalation, Every 6 hours, PRN, # 2 each, Refills 11, Tot. Refills 11, Maintenance, 12/02/20 8:50:00 EDT, Aerosol, Route to Pharmacy Electronically, [id number], [facility], 155, cm, 06/03/20 13:15:00 E... [...] 6 Refills, Maintenance, 06/15/20 11:56:00 EST, Solution, [facility], 155, cm, 06/03/20 13:15:00 EST, Height, 68.5, kg, 06/03/20 13:18:00 EST, Dry Weight Start Date: 06/15/20 Status: Ordered Diflucan 150 mg oral tablet 1 tablet = 150 mg, By Mouth, Every 48 hours, # 2 tablet, 0 Refills, Soft Stop, 07/31/21 10:46:00 EST, Tablet, [facility], Partial fill upon patient request if the prescription is for a schedule II opioid drug., 155, cm, 06/09/21 14:21:00... Start Date: 07/31/21 Status: Ordered dilTIAZem 240 mg/24 hours oral tablet, extended release 1 tablet = 240 mg, By Mouth, Daily, FURTHER REFILLS BY GASOLINE DRAGLINE OPERATOR, # 90 tablet, 0 Refills, Maintenance, 11/27/19 8:57:00 EDT, ER Tablet, [facility], 155, cm, 10/07/19 12:25:00 EDT, [...] 15:17:00 EDT, [facility], 155, cm, 05/03/20 18:55:00 [...] 15:30:53 EST, Aerosol, Route to Pharmacy Electronically, [id number]... Start Date: 09/12/18 Stop Date: 02/09/19 Status: Ordered ProAir HFA 90 mcg/inh inhalation aerosol with adapter 2, puffs, Inhalation, Every 4 hours, PRN, use with spacer chamber BRAND NAME MEDICALLY NECESSARY, #8.5 Gm, Refills 0, Tot. Refills 0, Maintenance, 12/05/20 15:38:00 EDT, Aerosol, Route to Pharmacy Electronically, [id number]... Start Date: 12/05/20 Status: Ordered Sunosi 75 [...] 2 Refills, Maintenance, 08/04/20 12:39:00 EST, Capsule, [facility], [...] Active Bilateral leg pain(Confirmed) Active *BHN/CCA/CC-Matias Vela- [phone]/Health senior living, active care coordination(Confirmed) Active POTS (postural orthostatic t achycardia syndrome)(Confirmed) Active Medulloblastoma(Confirmed) Active RUQ pain(Confirmed) Active Viral URI(Confirmed) Active Social History Social History Type Response Smoking Status Never smoker; Tobacc o user in household: No entered on: 04/11/16 Sex Female
--- OUTSIDE RECORDS SUMMARY | 2024-04-27 10:20 | XMS_ITS | Continuity of Care Document ---
Author Organization [facility] Address [address] [place] [address]- Care Team Providers Care [facility] Corpsman Name Role Phone Sisi Hernandez MD Primary Care Physician Encounter [facility] Date(s): 04/09/24 - 04/16/24 [facility] [address] [place], [place] [address] Attending Physician: Not [...] 13:12:00 EDT, Aerosol, Route to Pharmacy Electronically, [id number], [facility], ONLY ALBUTEROL HFA, CANCEL... Start Date: 02/15/22 Stop Date: 02/10/23 Status: Ordered Colace sodium 100 mg oral capsule 100 mg, 1, capsule, By Mouth, 2 times a day, PRN, # 180 capsule, Refills 3, Tot. Refills 3, Maintenance, for constipation, 08/09/23 14:49:00 EST, Route to Pharmacy Electronically, [facility], Partial fill upon patient [...] 11 Refills, Maintenance, 02/06/24 12:13:00 EDT, Solution, [facility], dose change, 155, cm, [...] EST, Route to Pharmacy Electronically, [facility], Partial fill upon patient request if the prescription is for a schedule... Start Date: 07/31/22 Status: Ordered ketoconazole 1% topical shampoo See Instructions, Apply 5 to 10 mL to wet scalp, lather, leave on 3 to 5 minutes, and rinse; apply twice weekly for 2 to 4 weeks., # 200 mL, 5 Refills, Maintenance, 11/22/23 15:46:00 EDT, [facility], Partial fill upon patient request if... Start Date: 11/22/23 Status: Ordered ketoconazole 2% topical shampoo 1 application, Topically, Once, Apply 5 to 10 mL to wet scalp, lather, leave on 3 to 5 minutes, andrinse; apply weekly for 2 to 4 weeks., # 120 mL, 4 Refills, Soft Stop, 11/25/23 12:40:00 EDT, Shampoo, [facility], Partial fill upon pat... Start Date: 11/25/23 Status: Ordered LORazepam 0.5 mg oral tablet See Instructions, TAKE 1 TABLET BY MOUTH TWO TIMES A DAY NEEDED FOR ANXIETY, # 28 tablet, 2 Refills, Maintenance, 02/06/24 12:19:00 EDT, [facility], 155, cm, 02/06/24 [...] Maintenance, 08/01/22 6:06:00 EST, Tablet, [facility], Partial fill upon patient request if the prescription is for a schedule II opioid drug., 155, cm,... Start Date: 08/01/22 Status: Ordered Symbicort 160mcg/4.5mcg Inhaler 2, puffs, Inhalation, 2 times a day, # 3 each, Refills 5, Tot. Refills 5, Maintenance, 02/06/24 12:14:00 EDT, Aerosol, Route to Pharmacy Electronically, [id number], [facility], replaces flovent inhaler, 155, cm,... [...] EST, Route to Pharmacy Electronically, [facility], Partial fill upon patient [...] 08/14/23 13:38:00 EST, Chew Tablet, [facility], Partial fill upon patient request if the prescription is for a schedule II opioid drug., 155, cm, 08/14/23 13:0... Start Date: 08/14/23 Status: Ordered Vitamin D3 50,000 intl units oral capsule 1 capsule = 1,250 mcg, By Mouth, Every week, # 13 capsule, 1 Refills, Maintenance, 05/17/23 17:07:00 EDT, Capsule, [facility], Partial fill upon patient [...] 0 Refills, Maintenance, 11/01/23 14:07:00 EDT, Capsule, [facility], Partial fill u... Start [...] Active Memory change Confirmed Active *BHN/CCA/CC-Matias Vela- [phone]/[facility] care, active care coordination Confirmed Active [...] Member Role: Primary Care Nurse Name: Sisi Hrenandez MD Position: [facility] Physician - Primary Care Member Role: PCP Address: Address: [address] [place] [id number] Name: Lizzette To RN Position: [facility] RN Member Role: Primary Care Nurse Name: Karolina Adkins MD Position: [facility] Physician - Primary Care Member Role: Lifetime Consulting Physician Address: Address: [address] [place] [address] [facility] [place] [address]- [place] Name: Isadora Godfrey RN Position: [facility] RN Member Role: Primary Care Nurse Name: Rossy Rowe RN Position: [facility] SN RN Member Role: Primary Care Nurse Name: Cindi Hayward RN Position: [facility] RN Member Role: Primary Care Nurse Name: Bela Mcmahon RN Position: [facility] Hospital Fighter Pilot Member Role: Primary Care Nurse Name: Nicole Hernandez RN Position: [facility] RN Member Role: Primary Care Nurse Name: Zac Castillo RN Position: [facility] ED RN W/OE and Tasks Member Role: Primary Care Nurse Name: Jeanne Grande RN Position: [facility] RN Member Role: Primary Care Nurse Care Team Related Persons Name: BEAR TURNER Address: home [address] [place] [address] Name: BEAR TURNER SECONDARY Address: [address] [address] Name: ISATU ECKERT Address: [place] [address] Name: ISAAC VERDE PRIMARY Address: home [address] [place] [address] Name: ADRY DURANT Name: PANCHO JEROME Address: [place] [address]
--- OUTSIDE RECORDS SUMMARY | 2024-04-27 10:20 | XMS_ITS | Continuity of Care Document ---
Author Organization [facility] Address [address] [place] [address]- Care Team Providers Care Account Collector Name Role Phone Sisi Hernandez MD Primary Care Physician Encounter [facility] Date(s): 08/14/23 - 08/21/23 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 Start Date: 12/21/22 Status: Ordered albuterol CFC free 90 mcg/inh inhalation aerosol 2, puffs, Inhalation, Every 6 hours, PRN, # 2 each, Refills 11, Tot. Refills 11, Maintenance, 02/15/22 13:12:00 EDT, Aerosol, Route to Pharmacy Electronically, [id number], [facility], ONLY ALBUTEROL HFA, CANCEL... Start Date: 02/15/22 Stop Date: 02/10/23 Status: Ordered Colace sodium 100 mg oral capsule 100 mg, 1, capsule, By Mouth, 2 times a day, PRN, # 180 capsule, Refills 3, Tot. Refills 3, Maintenance, for constipation, 08/09/23 14:49:00 EST, Route to Pharmacy Electronically, [facility], Partial fill upon patient request [...] 6 Refills, Maintenance, 08/07/23 13:45:00 EST, Solution, [facility], 155, cm, 06/07/23 20:58:00 EST, [...] 0 Refills, Maintenance, 02/15/22 13:10:00 EDT, Aerosol, [facility], new dosage, 155, cm, 12/08/21 [...] 11:03:00 EST, Route to Pharmacy Electronically, [facility], Partial fill upon patient request if the prescription is for a schedule... Start Date: 07/31/22 Status: Ordered LORazepam 0.5 mg oral tablet See Instructions, TAKE 1 TABLET BY MOUTH TWO TIMES A DAY NEEDED FOR ANXIETY, # 28 tablet, 2 Refills, Maintenance, 12/05/22 12:25:00 EDT, [facility], 155, cm, 12/05/22 11:40:00 [...] 6:06:00 EST, Tablet, [facility], Partial fill upon patient request if the prescription is for a schedule II opioid drug., 155, cm,... Start Date: 08/01/22 Status: Ordered Symbicort 160mcg/4.5mcg Inhaler 2, puffs, Inhalation, 2 times a day, # 3 each, Refills 5, Tot. Refills 5, Maintenance, 09/27/22 12:00:00 EST, Aerosol, Route to Pharmacy Electronically, [id number], [facility], replaces flovent inhaler, 155, cm,... Start [...] 07/31/22 11:03:00 EST, Route to Pharmacy Electronically, [facility], Partial fill upon patient request [...] Maintenance, 08/14/23 13:38:00 EST, Chew Tablet, [facility], Partial fill upon patient request if the prescription is for a schedule II opioid drug., 155, cm, 08/14/23 13:0... Start Date: 08/14/23 Status: Ordered Vitamin D3 50,000 intl units oral capsule 1 capsule = 1,250 mcg, By Mouth, Every week, # 13 capsule, 1 Refills, Maintenance, 05/17/23 17:07:00 EDT, Capsule, [facility], Partial fill upon patient [...] Bilateral leg pain Confirmed Active *BHN/CCA/CC-[facility]ias Vela- [phone]/[facility], active care coordination Confirmed Active POTS (postural orthostatic tachycardia syndrome) Confirmed Active Medulloblastoma Confirmed Active RUQ pain Confirmed Active Tachy-sharmin syndrome Confirmed Active Diagnosis Diagnosis Type Effective Dates Health Status Clinical Service Informant IBS (irritable bowel syndrome) Discharge Diagnosis 08/14/23 B12 deficiency Discharge Diagnosis 08/14/23 Asthma Discharge Diagnosis 08/14/23 Anxiety Discharge Diagnosis 08/14/23 Fatigue Discharge Diagnosis 08/14/23 Narcolepsy and cataplexy Discharge Diagnosis 08/14/23 Tachy-sharmin syndrome Discharge Diagnosis 08/14/23 Vital Signs Most recent to oldest [Reference Range]: 1 Height 155 cm (08/14/23 1:04 PM) Weight 69.5 kg (08/14/23 1:04 PM) Oxygen Saturation [94-100 %] 99 % (08/14/23 1:04 PM) Body Mass Index [18.5-24.99 kg/m2] 28.93 kg/m2 *H* (08/14/23 1:04 PM) Blood Pressure [90-138/55-84 mm Hg] 132/ 78mm Hg (08/14/23 1:04 PM) Mode of Delivery (Oxygen) Room air (08/14/23 1:04 PM) Blood pressure sites Arm, left (08/14/23 1:04 PM) Social History Social History Type Response Smoking Status Never smoker; Tobacc o user in household: No entered on: 04/11/16 Sex Note * Bhavana Grant: PERFORM, SIGN, VERIFY Event Display: Patient Education/Instruction Authored Date: [id number] [facility] *No Edge Adult Ped Clinical Summary Name ANSELMO TURNER Age 32 Years 1990 PCP Mary KEATING, Sisi Almanza PCP Visit Date 08/14/2023 12:56:00 Additional Instructions: Scheduled Appointments?? Future Appointments ?*[facility]iology1 ?[address]??[place],??[place],??[address] ?Phone:??--?Fax:??-- ?Appt. Date:??08/29/2023?8:45 AM ?Scheduled Provider:??Calderon KEATING , David Santos Follow-Up Instructions ?? With: Address: When: Debra Ryan [address] [place] [address] [place] [address] Business (1) Diagnosis Irritable bowel syndrome without diarrhea Medications: Please continue your medications until treatment is completed or stopped by your provider. Discuss any questions related to medications with your provider. New Medications [facility] [address] [id number], [phone] Ascorbic Acid (Vitamin C 250 mg oral tablet, chewable) 1 tab(s) Chew twice a day. Refills: 3. Next Dose: Medications to Continue with No [...] Oral every week. Refills: 1. Next Dose: Cyanocobalamin (cyanocobalamin 1000 mcg/ml injectable [...] cefoxitin Medications Given This Visit Future Orders ?Vitamin B12 Level? Order Date:08/14/23?- Complete on or after?08/14/23 ?Hemoglobin A1C (Monitoring)? Order Date:08/14/23?- Complete on or after?08/14/23 ?Cortisol Level? Order Date:08/14/23?- Complete on or after?08/14/23 ?Vaginosis Vaginitis Panel (BV, CV/TV)? Order Date:08/14/23?- Complete on or after?08/14/23 ?Ammonia Venous? Order Date:08/14/23?- Complete on or after?08/14/23 ?Gambino and FORKLIFT TRUCK MECHANIC Antibodies Panel? Order Date:08/14/23?- Complete on or after?08/14/23 ?Citrulline Peptide (CCP) Ab, IgG? Order Date:08/14/23?- Complete on or after?08/14/23 ?Anti DNA Ab? Order Date:08/14/23?- Complete on or after?08/14/23 ?RESHMA Screen? Order Date:08/14/23?- Complete on or after?08/14/23 ?Basic Metabolic Panel? Order Date:08/14/23?- Complete on or after?08/14/23 Vital Signs Height 155 cm Weight 69.5 kg BMI 28.93 kg/m2 Blood Pressure 132 mm Hg/78 mm Hg Temperature Pulse Rate Respiratory Rate 02 Sat Mode of Delivery 99 %/Room air You can now view a summary of your hospital visit from the comfort of your home through a free online portal called [employer]. [employer] is a website that allows you to securely view your medical information including discharge summary, medications and follow-up visits. ??You can alsosend a secure electronic message to your doctor???s office to request appointments, renew medications or just ask a question. You can enroll at [email or web address] or register during your next office visit. [...] primary care provider, you may find a [facility] provider by calling [facility] [employer] at [phone]. Critical [facility] Hospital, in keeping with [facility] guidance, no longer requires face masks for [...] Name: Vidhya Grace RN Position: [facility] RN Member Role: Primary Care Nurse Name: Sisi Hernandez MD Position: [facility] Physician - Primary Care Member Role: PCP Address: Address: [address] [place] [address] - Name: Lizzette To RN Position: [facility] SN RN Member Role: Primary Care Nurse Name: Karolina Adkins MD Position: [facility] Physician - Primary Care Member Role: Lifetime Consulting Physician Address: Address: [address] [place] [address] [facility] [place], [place] - Name: Isadora Godfrey RN Position: [facility] RN Member Role: Primary Care Nurse Name: Rossy Rowe RN Position: [facility] SN RN Member Role: Primary Care Nurse Name: Cindi Hayward RN Position: [facility] RN Member Role: Primary Care Nurse Name: Bela Mcmahon RN Position: [facility] Hospital Booster Pump Operator Member Role: Primary Care Nurse Name: Nicole Hernandez RN Position: [facility] RN Member Role: Primary Care Nurse Name: Zac Castillo RN Position: [facility] ED RN W/OE and Tasks Member Role: Primary Care Nurse Name: Jeanne Grande RN Position: [facility] RN Member Role: Primary Care Nurse Care Team Related Persons Name: KATHRYN TURNERY Address: home [address] [place] [address] Name: BEAR TURNER SECONDARY Address: [address] Name: ISATU ECKERT Address: home [place], [place] Name: ISAAC VERDE PRIMARY Address: home [address] [place] [address] Name: ADRY DURANT Name: PANCHO JEROME Address: [place] [address]
--- OUTSIDE RECORDS SUMMARY | 2024-04-27 10:20 | XMS_ITS | Continuity of Care Document ---
Author Organization [facility] Address [address] [place] [address]- Care Team Providers Care Home Support Worker Name Role Phone Sisi Hernandez MD Primary Care Physician [phone] Encounter [facility] Date(s): 08/28/21 - 12/13/[address] [address] Discharge Disposition: A-D/C Home Attending Physician: Jorge Sparks Admitting Physician: Jorge Sparks Referring Physician: Jorge Sparks Allergies, Adverse Reactions, [...] 23:51:00 EDT, Route to Pharmacy Electronically, [facility], Partial fill upon patient request if the presc... Start Date: 11/16/21 Status: Ordered Adderall 5 mg oral tablet 1 tablet = 5 mg, By Mouth, 2 times a day, to take with long acting, # 60 tablet, 0 Refills, Maintenance, 10/25/21 15:46:00 EDT, Tablet, [facility], Partial fill [...] Maintenance, 10/25/21 15:46:00 EDT, ER Capsule, [facility], Partial fill upon patient r... Start Date: 10/25/21 Status: Ordered albuterol CFC free 90 mcg/inh inhalation aerosol 2, puffs, Inhalation, Every 6 hours, PRN, # 2 each, Refills 11, Tot. Refills 11, Maintenance, 10/05/21 9:52:00 EST, Aerosol, Route to Pharmacy Electronically, [id number], [facility], ONLY ALBUTEROL HFA, CANCEL [...] Refills, Maintenance, 10/03/21 12:18:00 EST, Solution, [facility], 155, cm, 09/27/21 15:08:00 EST, Height, 68.5, kg, 06/03/20 13:18:00 EST, Dry Weight Start Date: 10/03/21 Status: Ordered cyanocobalamin 1000 mcg/ml injectable solution 1 mL = 1,000 mcg, Intramuscular, Every 30 days, # 3 mL, 6 Refills, Maintenance, 06/15/20 11:56:00 EST, Solution, [facility], 155, cm, 06/03/20 13:15:00 EST, Height, 68.5, kg, 06/03/20 13:18:00 EST, Dry Weight Start Date: 06/15/20 Status: Ordered dilTIAZem 240 mg/24 hours oral tablet, extended release 1 tablet = 240 mg, By Mouth, Daily, FURTHER REFILLS BY PACKAGE SEALER, # 90 tablet, 0 Refills, Maintenance, 11/27/19 8:57:00 EDT, ER Tablet, [facility] 3, 155, cm, 10/07/19 12:25:00 EDT, Height, 63, kg, 07/01/19 19:58:00 EST, Dry Weight Start Date: 11/27/19 Status: Ordered Flovent HFA 110 mcg/inh inhalation aerosol 2 puffs, Inhalation, 2 times a day, # 12 Gm, 0 Refills, Maintenance, 10/05/21 13:23:00 EST, Aerosol, [facility], Partial fill upon [...] 23:51:00 EDT, Route to Pharmacy Electronically, [facility], Partial fill upon patient request if the prescription is... Start Date: 11/16/21 Status: Ordered LORazepam 0.5 mg oral tablet See Instructions, TAKE 1 TABLET BY MOUTH TWO TIMES A DAY NEEDED FOR ANXIETY, # 28 tablet, 2 Refills, Maintenance, 05/06/20 15:17:00 EDT, [facility], 155, cm, 05/03/20 [...] Maintenance, 11/16/21 23:51:00 EDT, DIS Tablet, [facility], Partial fill upon patient request [...] 3 Refills, Maintenance, 10/25/21 11:13:00 EDT, Capsule, [facility], Partial fill upon patient request [...] Active Bilateral leg pain(Confirmed) Active *BHN/CCA/CC-[facility]ias [facility]ela- [phone]/[facility], active care coordination(Confirmed) Active POTS (postural orthostatic t achycardia syndrome)(Confirmed) Active Medulloblastoma(Confirmed) Active RUQ pain(Confirmed) Active Social History Social History Type Response Smoking Status Never smoker; Tobacc o user in household: No entered on: 04/11/16 Sex Female
--- OUTSIDE RECORDS SUMMARY | 2024-04-27 10:20 | XMS_ITS | Continuity of Care Document ---
Author Organization [facility] Address [address] [place] [address]- Care Team Providers Care Managing Jeweler Name Role Phone Sisi Hernandez MD Primary Care Physician [phone] [place] [facility] [place] 11/[place]/23 [facility] [address] [place] [address]- Attending Physician: Admjuan josé, Angel Admitting Physician: [...] 13:12:00 EDT, Aerosol, Route to Pharmacy Electronically, [id number], [facility], ONLY ALBUTEROL HFA, CANCEL... Start Date: 02/15/22 Stop Date: 02/10/23 Status: Ordered Colace sodium 100 mg oral capsule 100 mg, 1, capsule, By Mouth, 2 times a day, PRN, # 180 capsule, Refills 3, Tot. Refills 3, Maintenance, for constipation, 08/09/23 14:49:00 EST, Route to Pharmacy Electronically, [facility], Partial fill upon patient request if [...] 6 Refills, Maintenance, 08/07/23 13:45:00 EST, Solution, [facility], 155, cm, 06/07/23 20:58:00 [...] 0 Refills, Maintenance, 02/15/22 13:10:00 EDT, Aerosol, [facility], new dosage, 155, cm, [...] 07/31/22 11:03:00 EST, Route to Pharmacy Electronically, [facility], Partial fill upon patient request if the prescription is for a schedule... Start Date: 07/31/22 Status: Ordered LORazepam 0.5 mg oral tablet See Instructions, TAKE 1 TABLET BY MOUTH TWO TIMES A DAY NEEDED FOR ANXIETY, # 28 tablet, 2 Refills, Maintenance, 12/05/22 12:25:00 EDT, [facility], 155, cm, 12/05/22 [...] 0 Refills, Maintenance, 08/01/22 6:06:00 EST, Tablet, [facility], Partial fill upon patient request if the prescription is for a schedule II opioid drug., 155, cm,... Start Date: 08/01/22 Status: Ordered Symbicort 160mcg/4.5mcg Inhaler 2, puffs, Inhalation, 2 times a day, # 3 each, Refills 5, Tot. Refills 5, Maintenance, 09/27/22 12:00:00 EST, Aerosol, Route to Pharmacy Electronically, [id number], [facility], replaces flovent inhaler, 155, cm,... [...] 07/31/22 11:03:00 EST, Route to Pharmacy Electronically, [facility], Partial fill upon patient [...] Refills, Maintenance, 08/14/23 13:38:00 EST, Chew Tablet, [facility], Partial fill upon patient request if the prescription is for a schedule II opioid drug., 155, cm, 08/14/23 13:0... Start Date: 08/14/23 Status: Ordered Vitamin D3 50,000 intl units oral capsule 1 capsule = 1,250 mcg, By Mouth, Every week, # 13 capsule, 1 Refills, Maintenance, 05/17/23 17:07:00 EDT, Capsule, [facility], Partial fill upon patient [...] 0 Refills, Maintenance, 11/01/23 14:07:00 EDT, Capsule, [facility], Partial fill u... Start [...] Confirmed Active Bilateral leg pain Confirmed Active *[facility]- [phone]/Health intermediate, active care coordination Confirmed Active POTS (postural orthostatic tachycardia syndrome) Confirmed Active Medulloblastoma Confirmed Active RUQ pain Confirmed Active Tachy-sharmin syndrome Confirmed Active Social History Social History Type Response Smoking Status Never smoker; Tobacc o user in household: No entered on: 04/11/16 Sex EKG study * Event Display: EKG Authored Date: Patient Care team information Care Team Personnel Name: Vidhya Grace RN Position: [facility] RN Member Role: Primary Care Nurse Name: Sisi Hernandez MD Position: [facility] Physician - Primary Care Member Role: PCP Address: Address: [address] [place] [address] Name: Lizzette To RN Position: [facility] SN RN Member Role: Primary Care Nurse Name: Karolina Adkins MD Position: [facility] Physician - Primary Care Member Role: Lifetime Consulting Physician Address: Address: [address] [place] [address] [facility] [address] Name: Isadora Godfrey RN Position: [facility] RN Member Role: Primary Care Nurse Name: Rossy Rowe RN Position: [facility] SN RN Member Role: Primary Care Nurse Name: Cindi Hayward RN Position: [facility] RN Member Role: Primary Care Nurse Name: Bela Mcmahon RN Position: [facility] Hospital Technology Teacher Member Role: Primary Care Nurse Name: Nicole Hernandez RN Position: [facility] RN Member Role: Primary Care Nurse Name: Zac Castillo RN Position: [facility] ED RN W/OE and Tasks Member Role: Primary Care Nurse Name: Harjinder MONTELONGO, Jeanne Baker Position: S RN Member Role: Primary Care Nurse Care Team Related Persons Name: BEAR TURNER Address: home [address] [place] [id number] Name: BEAR TURNER SECONDARY Address: [address] [address] Name: ISATU ECKERT Address: [place] [address] Name: ISAAC VERDE PRIMARY Address: home [address] [place] [id number] Name: ADRY DURANT Name: PANCHO JEROME Address: [place] [address]
--- OUTSIDE RECORDS SUMMARY | 2024-04-27 10:20 | XMS_ITS | Continuity of Care Document ---
Author Organization [facility] Address [address] [place] [address]- Care Team Providers Care Press Setter Name Role Phone Sisi Hernandez MD Primary Care Physician Encounter [facility] Date(s): 12/19/20 - 01/18/[address] [address] Allergies, Adverse Reactions, Alerts Substance [...] 12:53:00 EDT, Route to Pharmacy Electronically, [facility] Tablet, Partial fill upon patient request if the... Start Date: 12/22/20 Stop Date: 01/21/21 Status: Ordered albuterol CFC free 90 mcg/inh inhalation aerosol 2, puffs, Inhalation, Every 6 hours, PRN, # 2 each, Refills 11, Tot. Refills 11, Maintenance, 12/02/20 8:50:00 EDT, Aerosol, Route to Pharmacy Electronically, [id number], [facility], 155, cm, 06/03/20 13:15:00 [...] Refills, Maintenance, 06/15/20 11:56:00 EST, Solution, [facility], 155, cm, 06/03/20 13:15:00 EST, Height, 68.5, kg, 06/03/20 13:18:00 EST, Dry Weight Start Date: 06/15/20 Status: Ordered dilTIAZem 240 mg/24 hours oral tablet, extended release 1 tablet = 240 mg, By Mouth, Daily, FURTHER REFILLS BY CIGAR BRANDER, # 90 tablet, 0 Refills, Maintenance, 11/27/19 8:57:00 EDT, ER Tablet, [facility], 155, cm, 10/07/19 12:25:00 [...] Maintenance, 05/06/20 15:17:00 EDT, [facility], 155, cm, 05/03/20 18:55:00 EDT, Height, [...] 15:30:53 EST, Aerosol, Route to Pharmacy Electronically, [id number]... Start Date: 09/12/18 Stop Date: 02/09/19 Status: Ordered ProAir HFA 90 mcg/inh inhalation aerosol with adapter 2, puffs, Inhalation, Every 4 hours, PRN, use with spacer chamber BRAND NAME MEDICALLY NECESSARY, #8.5 Gm, Refills 0, Tot. Refills 0, Maintenance, 12/05/20 15:38:00 EDT, Aerosol, Route to Pharmacy Electronically, [id number]... Start Date: 12/05/20 Status: Ordered ramelteon 8 mg oral tablet 1 tablet = 8 mg, By Mouth, Daily at bedtime, # 30 tablet, 11 Refills, Maintenance, 12/02/20 8:48:00EDT, [facility], Partial fill upon patient [...] Refills, Maintenance, 08/04/20 12:39:00 EST, Capsule, [facility], Partial fill upon patient [...] Active Bilateral leg pain(Confirmed) Active *[facility]- [phone]/Health snf, active care coordination(Confirmed) Active POTS (postural orthostatic t achycardia syndrome)(Confirmed) Active Medulloblastoma(Confirmed) Active RUQ pain(Confirmed) Active Viral URI(Confirmed) Active Social History Social History Type Response Smoking Status Never smoker; Tobacc o user in household: No entered on: 04/11/16 Sex
--- OUTSIDE RECORDS SUMMARY | 2024-04-27 10:20 | XMS_ITS | Continuity of Care Document ---
[facility] Address [address], [address] [place] [address]- Care Team Providers Care Senior Clinical Research Associate Name Role Phone Sisi Hernandez MD Primary Care Physician [place] [facility] [place] [facility]/[facility] [address] [place], [place] [address] Allergies, Adverse Reactions, Alerts Substance Reaction Severity [...] 11/16/21 23:51:00 EDT, Route to Pharmacy Electronically, [facility], Partial fill upon patient request if the presc... Start Date: 11/16/21 Status: Ordered albuterol CFC free 90 mcg/inh inhalation aerosol 2, puffs, Inhalation, Every 6 hours, PRN, # 2 each, Refills 11, Tot. Refills 11, Maintenance, 02/15/22 13:12:00 EDT, Aerosol, Route to Pharmacy Electronically, [id number], [facility], ONLY ALBUTEROL HFA, CANCEL... [...] Refills, Maintenance, 10/03/21 12:18:00 EST, Solution, [facility] 3, 155, cm, 09/27/21 15:08:00 EST, Height, 68.5, kg, 06/03/20 13:18:00 EST, Dry Weight Start Date: 10/03/21 Status: Ordered cyanocobalamin 1000 mcg/ml injectable solution 1 mL = 1,000 mcg, Intramuscular, Every 30 days, # 3 mL, 6 Refills, Maintenance, 06/06/22 12:08:00 EST, Solution, [facility] 3, 155, cm, 04/06/22 14:56:00 EDT, Height, 67.5, kg, 04/06/22 14:56:00 EDT, Dry Weight Start Date: 06/06/22 Status: Ordered dilTIAZem 240 mg/24 hours oral tablet, extended release 1 tablet = 240 mg, By Mouth, Daily, FURTHER REFILLS BY BISQUE PLACER, # 90 tablet, 0 Refills, Maintenance, 11/27/19 8:57:00 EDT, ER Tablet, [facility] 3, 155, cm, 10/07/19 12:25:00 EDT, Height, 63, kg, 07/01/19 19:58:00 EST, Dry Weight Start Date: 11/27/19 Status: Ordered Flovent HFA 220 mcg/inh inhalation aerosol 2 puffs, Inhalation, 2 times a day, new dosage, # 12 Gm, 0 Refills, Maintenance, 02/15/22 13:10:00 EDT, Aerosol, [facility], new dosage, 155, cm, 12/08/21 [...] 11/16/21 23:51:00 EDT, Route to Pharmacy Electronically, [facility], Partial fill upon patient request if the prescription is... Start Date: 11/16/21 Status: Ordered LORazepam 0.5 mg oral tablet See Instructions, TAKE 1 TABLET BY MOUTH TWO TIMES A DAY NEEDED FOR ANXIETY, # 28 tablet, 2 Refills, Maintenance, 06/06/22 10:45:00 EST, [facility], 155, cm, 04/06/22 [...] Refills, Maintenance, 11/16/21 23:51:00 EDT, DIS Tablet, [facility], Partial fill upon patient request if the prescription is for a schedule II o... Start Date: 11/16/21 Status: Ordered Peridex 0.12% liquid 15 mL = 0.018 Gm, By Mouth, 2 times a day, # 420 mL, 0 Refills, Maintenance, 01/18/22 8:47:00 EDT, Liquid, [facility] 3, Partial fill upon patient request [...] 3 Refills, Maintenance, 06/05/22 14:27:00 EST, Capsule, [facility], Partial fill upon patient [...] Bilateral leg pain Confirmed Active *[facility]- [phone]/Health retirement, active care coordination Confirmed Active POTS [...] Physician Member Role: PCP Address: Address: [address] [place] [id number] Name: Lizzette To RN Position: [facility] RN Member Role: Primary Care Nurse Name: Karolina Adkins MD Position: [facility] Physician -Physician Practices Member Role: Lifetime Consulting Physician Address: Address: [address] [place] [address] [facility] [place] [address]- [place] Name: Isadora Godfrey RN Position: [facility] RN Member Role: Primary Care Nurse Name: Rossy Rowe RN Position: [facility] SN RN Member Role: Primary Care Nurse Name: Bela Mcmahon RN Position: [facility] Hospital Die Maker Member Role: Primary Care Nurse Name: Nicole Hernandez RN Position: [facility] RN Member Role: Primary Care Nurse Name: Zac Castillo RN Position: [facility] ED RN W/OE and Tasks Member Role: Primary Care Nurse Name: Jeanne Grande RN Position: [facility] RN Member Role: Primary Care Nurse Care Team Related Persons Name: KATHRYN TURNERY Address: [address] [address] Name: ISATU ECKERT Address: [place] [address] Name: ADRY DURANT Name: PANCHO JEROME Address: [place] [address]
--- OUTSIDE RECORDS SUMMARY | 2024-04-27 10:20 | XMS_ITS | Continuity of Care Document ---
Author Organization [facility] Address [address] [place] [address]- Care Team Providers Care Enamel Drier Name Role Phone Sisi Hernandez MD Primary Care Physician Encounter [facility] [place] Date(s): 12/21/20 - 01/20/21 [facility] [address] [place], [place] [address] Allergies, Adverse Reactions, Alerts Substance Reaction [...] 12/22/20 12:53:00 EDT, Route to Pharmacy Electronically, [facility] 3 Tablet, Partial fill upon patient request if the... Start Date: 12/22/20 Stop Date: 01/21/21 Status: Ordered albuterol CFC free 90 mcg/inh inhalation aerosol 2, puffs, Inhalation, Every 6 hours, PRN, # 2 each, Refills 11, Tot. Refills 11, Maintenance, 12/02/20 8:50:00 EDT, Aerosol, Route to Pharmacy Electronically, [id number], [facility], 155, [...] 6 Refills, Maintenance, 06/15/20 11:56:00 EST, Solution, [facility], 155, cm, 06/03/20 13:15:00 EST, Height, 68.5, kg, 06/03/20 13:18:00 EST, Dry Weight Start Date: 06/15/20 Status: Ordered dilTIAZem 240 mg/24 hours oral tablet, extended release 1 tablet = 240 mg, By Mouth, Daily, FURTHER REFILLS BY AUTOMOBILE RADIATOR MECHANIC, # 90 tablet, 0 Refills, Maintenance, 11/27/19 8:57:00 EDT, ER Tablet, [facility], 155, cm, 10/07/19 12:25:00 EDT, [...] 15:17:00 EDT, [facility], 155, cm, 05/03/20 [...] 15:30:53 EST, Aerosol, Route to Pharmacy Electronically, [id number]... Start Date: 09/12/18 Stop Date: 02/09/19 Status: Ordered ProAir HFA 90 mcg/inh inhalation aerosol with adapter 2, puffs, Inhalation, Every 4 hours, PRN, use with spacer chamber BRAND NAME MEDICALLY NECESSARY, #8.5 Gm, Refills 0, Tot. Refills 0, Maintenance, 12/05/20 15:38:00 EDT, Aerosol, Route to Pharmacy Electronically, [id number]... Start Date: 12/05/20 Status: Ordered ramelteon 8 mg oral tablet 1 tablet = 8 mg, By Mouth, Daily at bedtime, # 30 tablet, 11 Refills, Maintenance, 12/02/20 8:48:00EDT, [facility], Partial [...] syncope(Confirmed) Active Bilateral leg pain(Confirmed) Active *[facility]/CCA/CC-[facility]- [phone]/Health senior care, active care coordination(Confirmed) Active POTS (postural orthostatic t achycardia syndrome)(Confirmed) Active Medulloblastoma(Confirmed) Active RUQ pain(Confirmed) Active Viral URI(Confirmed) Active Social History Social History Type Response Smoking Status Never smoker; Tobacc o user in household: No entered on: 04/11/16 Sex
--- OUTSIDE RECORDS SUMMARY | 2024-04-27 10:20 | XMS_ITS | Continuity of Care Document ---
Author Organization [facility] Address [address] [place] [address]- Care Team Providers Care Product Architect Name Role Phone Sisi Hernandez MD Primary Care Physician Encounter [facility] [place] Date(s): 11/16/21 - 11/17/[address] [address]- Encounter Diagnosis Pelvic inflammation in female(Final) - 11/16/21 Discharge Disposition: A-D/C Home Attending Physician: Debra Bey MD Admitting Physician: Debra Bey MD Referring Physician: Not on Staff, Referring [...] 11/16/21 23:51:00 EDT, Route to Pharmacy Electronically, [facility], Partial fill upon patient request if the presc... Start Date: 11/16/21 Status: Ordered Adderall 5 mg oral tablet 1 tablet = 5 mg, By Mouth, 2 times a day, to take with long acting, # 60 tablet, 0 Refills, Maintenance, 10/25/21 15:46:00 EDT, Tablet, [facility] 3, Partial fill upon patient request [...] Refills, Maintenance, 10/25/21 15:46:00 EDT, ER Capsule, [facility] 3, Partial fill upon patient r... Start Date: 10/25/21 Status: Ordered albuterol CFC free 90 mcg/inh inhalation aerosol 2, puffs, Inhalation, Every 6 hours, PRN, # 2 each, Refills 11, Tot. Refills 11, Maintenance, 10/05/21 9:52:00 EST, Aerosol, Route to Pharmacy Electronically, [id number], [facility] 3, ONLY ALBUTEROL HFA, [...] Refills, Maintenance, 10/03/21 12:18:00 EST, Solution, [facility] 3, 155, cm, 09/27/21 15:08:00 EST, Height, 68.5, kg, 06/03/20 13:18:00 EST, Dry Weight Start Date: 10/03/21 Status: Ordered cyanocobalamin 1000 mcg/ml injectable solution 1 mL = 1,000 mcg, Intramuscular, Every 30 days, # 3 mL, 6 Refills, Maintenance, 06/15/20 11:56:00 EST, Solution, [facility], 155, cm, 06/03/20 13:15:00 EST, Height, 68.5, kg, 06/03/20 13:18:00 EST, Dry Weight Start Date: 06/15/20 Status: Ordered dilTIAZem 240 mg/24 hours oral tablet, extended release 1 tablet = 240 mg, By Mouth, Daily, FURTHER REFILLS BY TRADITIONAL CHINESE HERBALIST, # 90 tablet, 0 Refills, Maintenance, 11/27/19 8:57:00 EDT, ER Tablet, [facility], 155, cm, 10/07/19 12:25:00 EDT, Height, 63, kg, 07/01/19 19:58:00 EST, Dry Weight Start Date: 11/27/19 Status: Ordered Flovent HFA 110 mcg/inh inhalation aerosol 2 puffs, Inhalation, 2 times a day, # 12 Gm, 0 Refills, Maintenance, 10/05/21 13:23:00 EST, Aerosol, [facility] 3, Partial fill upon [...] 11/16/21 23:51:00 EDT, Route to Pharmacy Electronically, [facility], Partial fill upon patient request if the prescription is... Start Date: 11/16/21 Status: Ordered LORazepam 0.5 mg oral tablet See Instructions, TAKE 1 TABLET BY MOUTH TWO TIMES A DAY NEEDED FOR ANXIETY, # 28 tablet, 2 Refills, Maintenance, 05/06/20 15:17:00 EDT, [facility], 155, [...] Refills, Maintenance, 11/16/21 23:51:00 EDT, DIS Tablet, [facility], Partial fill upon patient request if the prescription is for a schedule II o... Start Date: 11/16/21 Status: Ordered Oxycontin ER Tablet 10 mg, ER Tablet, By Mouth, Once, STAT, 11/16/21 23:19:00 EDT, Stop date 11/16/21 23:19:00 EDT Notes: Do Not Crush. Start Date: 11/16/21 Stop Date: 11/17/21 Status: Completed syringe and needles syringe and needles, See [...] 3 Refills, Maintenance, 10/25/21 11:13:00 EDT, Capsule, [facility], Partial fill [...] Active Bilateral leg pain(Confirmed) Active *[facility]- [phone]/Health snf, active care coordination(Confirmed) Active POTS (postural orthostatic t achycardia syndrome)(Confirmed) Active Medulloblastoma(Confirmed) Active RUQ pain(Confirmed) Active Results Orders for Microbiology Reports Name Date Wet Prep 11/16/21 Microbiology Reports TEST:Wet Prep STATUS:Auth (Verified) BODY SITE: SOURCE:VAGINA COLLECTED DATE/TIME:11/16/21 11:18 PM Wet Prep SPECIMEN DESCRIPTION : VAGINAL SPECIMEN SPECIAL REQUESTS : NONE DIRECT EXAM : 1+ WHITE BLOOD CELLS NO YEAST OBSERVED NO TRICHOMONAS OBSERVED NO CLUE CELLS OBSERVED REPORT STATUS : FINAL 11/17/2021 Vital Signs Most recent to oldest [Reference Range]: 1 2 3 Oxygen Saturation [94-100 %] 100 % (11/17/21 1:18 AM) 99 % (11/16/21 10:46 PM) 99 % (11/16/21 8:02 PM) Pulse Rate [55-90 bpm] 68 bpm (11/17/21 3:10 AM) 63 bpm (11/17/21 1:18 AM) 75 bpm (11/16/21 10:46 PM) Blood Pressure [90-138/55-84 mm Hg] 101/64mm Hg (11/17/21 3:10 AM) 99/68mm Hg (11/17/21 1:18 AM) 101/68mm Hg (11/16/21 10:46 PM) Respiratory Rate [16-30 br/min] 16 br/min (11/17/21 12:00 AM) 20 br/min (11/16/21 8:02 PM) 16 br/min (11/16/21 7:24 PM) Temperature [96.8-100.4 DegF] 97.8 DegF (11/17/21 1:18 AM) 98.0 DegF (11/16/21 8:02 PM) Mode of Delivery (Oxygen) Room air (11/17/21 1:18 AM) Room air (11/16/21 10:46 PM) Room air (11/16/21 8:02 PM) Blood pressure sites Arm, right (11/17/21 3:10 AM) Arm, left (11/17/21 1:18 AM) Arm, left (11/16/21 10:46 PM) Temperature Route Oral (11/17/21 1:18 AM) Oral (11/16/21 8:02 PM) Social History Social History Type Response Smoking Status Never smoker; Tobacc o user in household: No entered on: 04/11/16 Sex Female
--- OUTSIDE RECORDS SUMMARY | 2024-04-27 10:20 | XMS_ITS | Continuity of Care Document ---
Author Organization [facility] Address [address] [place] [address]- Care Team Providers Care Paper Cup Machine Operator Name Role Phone Sisi Hernandez MD Primary Care Physician Encounter [facility] [place] Date(s): 02/01/21 - 03/05/21 [facility] [address] [place], [place] [address] Attending Physician: Not on [...] 8:50:00 EDT, Aerosol, Route to Pharmacy Electronically, [id number], [facility], [...] 11:56:00 EST, Solution, [facility], 155, cm, 06/03/20 13:15:00 EST, Height, 68.5, kg, 06/03/20 13:18:00 EST, Dry Weight Start Date: 06/15/20 Status: Ordered dilTIAZem 240 mg/24 hours oral tablet, extended release 1 tablet = 240 mg, By Mouth, Daily, FURTHER REFILLS BY SISAL PICKER, # 90 tablet, 0 Refills, Maintenance, 11/27/19 8:57:00 EDT, ER Tablet, [facility], 155, cm, 10/07/19 12:25:00 [...] tablet, 2 Refills, Maintenance, 05/06/20 15:17:00 EDT, [facility] [...] 15:30:53 EST, Aerosol, Route to Pharmacy Electronically, [id number]... Start Date: 09/12/18 Stop Date: 02/09/19 Status: Ordered ProAir HFA 90 mcg/inh inhalation aerosol with adapter 2, puffs, Inhalation, Every 4 hours, PRN, use with spacer chamber BRAND NAME MEDICALLY NECESSARY, #8.5 Gm, Refills 0, Tot. Refills 0, Maintenance, 12/05/20 15:38:00 EDT, Aerosol, Route to Pharmacy Electronically, [id number]... Start Date: 12/05/20 Status: Ordered ramelteon 8 mg oral tablet 1 tablet = 8 mg, By Mouth, Daily at bedtime, # 30 tablet, 11 Refills, Maintenance, 12/02/20 8:48:00EDT, [facility] 3, Partial fill upon patient request [...] EST, Capsule, [facility] [...] Active Bilateral leg pain(Confirmed) Active *[facility]/CCA/CC-[facility]- [phone]/Health snf, active care coordination(Confirmed) Active POTS (postural orthostatic t achycardia syndrome)(Confirmed) Active Medulloblastoma(Confirmed) Active RUQ pain(Confirmed) Active Viral URI(Confirmed) Active Social History Social History Type Response Smoking Status Never smoker; Tobacc o user in household: No entered on: 04/11/16 Sex
--- OUTSIDE RECORDS SUMMARY | 2024-04-27 10:20 | XMS_ITS | Continuity of Care Document ---
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 Start Date: 02/15/22 Stop Date: 02/10/23 Status: Ordered Colace sodium 100 mg oral capsule 100 mg, 1, capsule, By Mouth, 2 times a day, PRN, # 30 capsule, Refills 0, Tot. Refills 0, Maintenance, for constipation, 07/31/22 11:03:00 EST, Route to Pharmacy Electronically, [facility], Partial fill upon patient request if [...] 6 Refills, Maintenance, 06/06/22 12:08:00 EST, Solution, [facility], 155, cm, 04/06/22 14:56:00 [...] 0 Refills, Maintenance, 02/15/22 13:10:00 EDT, Aerosol, [facility], new dosage, 155, [...] Route to Pharmacy Electronically, [facility], Partial fill upon patient request if the prescription is for a schedule... Start Date: 07/31/22 Status: Ordered Ibuprofen Tablet 800 mg, Tablet, By Mouth, 08/01/22 8:30:00 EST Start Date: 08/01/22 Stop Date: 08/01/22 Status: Completed LORazepam 0.5 mg oral tablet See Instructions, TAKE 1 TABLET BY MOUTH TWO TIMES A DAY NEEDED FOR ANXIETY, # 28 tablet, 2 Refills, Maintenance, 06/06/22 10:45:00 EST, [facility], 155, cm, 04/06/22 14:56:00 EDT, Height, 67.5, kg, 04/06/22 14:56:00 EDT, Dry Weight Start Date: 06/06/22 Status: Ordered Lovenox 40 mg/0.4 mL injectable solution = 40 mg, Subcutaneous Injection, Daily, for 9 days, # 9 each, 0 Refills, Acute 08/09/22 11:05:00 EST, 07/31/22 11:05:00 EST, [facility], Partial fill upon patient request if [...] Refills, Maintenance, 08/01/22 6:06:00 EST, REC Powder, [facility], Partial fill upon patient request if [...] 07/31/22 11:03:00 EST, Route to Pharmacy Electronically, [facility], Partial fill upon patient requ... Start Date: 07/31/22 Stop Date: 08/05/22 Status: Ordered OxyCODONE IR Tablet 5 mg, Tablet, By Mouth, Every 3 hours, PRN for Pain , Severe, Routine, 07/31/22 11:19:00 EST Start Date: 07/31/22 Stop Date: 08/01/22 Status: Discontinued senna - oral tablet 2 tablet, By Mouth, Daily at bedtime, PRN for constipation, # 80 tablet, 0 Refills, Maintenance, 08/01/22 6:06:00 EST, Tablet, [facility], Partial fill upon patient request if the prescription is for a schedule II opioid drug., 155, cm,... Start Date: 08/01/22 Status: Ordered simethicone 80 mg oral tablet, chewable 80 mg, 1, tablet, Chew, 4 times a day, # 12 tablet, Refills 0, Tot. Refills 0, Maintenance, 07/31/22 11:03:00 EST, Route to Pharmacy Electronically, [facility], Partial fill upon patient request [...] Route to Pharmacy Electronically, [facility], Partial fill upon [...] 3 Refills, Maintenance, 06/05/22 14:27:00 EST, Capsule, [facility], Partial fill upon [...] Bilateral leg pain Confirmed Active *BHN/CCA/CC-Matias Vela- [phone]/Health halfway, active care coordination Confirmed Active POTS (postural orthostatic tachycardia syndrome) Confirmed Active Medulloblastoma Confirmed Active RUQ pain Confirmed Active Diagnosis Diagnosis Type Effective Dates Health Status Clinical Service Informant Anxiety Discharge Diagnosis 07/31/22 Asthma Discharge Diagnosis 07/31/22 Medulloblastoma Discharge Diagnosis 07/31/22 POTS (postural orthostatic tachycardia syndrome) Discharge Diagnosis 07/31/22 Vital Signs Most recent to oldest [Reference Range]: 1 2 3 Height 155 cm (08/01/22 8:49 AM) 155 cm (07/31/22 11:30 PM) 155 cm (07/31/22 7:40 PM) Weight 71.2 kg (07/31/22 4:42 PM) 68.4 kg (07/31/22 4:00 PM) 68.3 kg (07/31/22 7:06 AM) Oxygen Saturation [94-100 %] 99 % (08/01/22 8:49 AM) 97 % (07/31/22 11:30 PM) 97 % (07/31/22 7:40 PM) Pulse Rate [55-90 bpm] 88 bpm (08/01/22 8:49 AM) 79 bpm (07/31/22 11:30 PM) 97 bpm *H* (07/31/22 7:40 PM) Body Mass Index [18.5-24.99 kg/m2] 29.64 kg/m2 *H* (07/31/22 4:42 PM) 28.47 kg/m2 *H* (07/31/22 4:00 PM) 28.43 kg/m2 *H* (07/31/22 7:06 AM) Blood Pressure [90-138/55-84 mm Hg] 116/68mm Hg (08/01/22 8:49 AM) 119/54mm Hg (07/31/22 11:30 PM) 117/71mm Hg (07/31/22 7:40 PM) Respiratory Rate [16-30 br/min] 20 br/min (08/01/22 9:55 AM) 20 br/min (08/01/22 9:35 AM) 17 br/min (08/01/22 8:49 AM) Temperature [96.8-100.4 DegF] 99.0 DegF (08/01/22 8:49 AM) 97.9 DegF (07/31/22 11:30 PM) 98.6 DegF (07/31/22 7:40 PM) Liters per Minute 3 L/min (07/31/22 12:45 PM) 6 L/min (07/31/22 11:45 AM) Mode of Delivery (Oxygen) Room air (08/01/22 8:49 AM) Room air (07/31/22 11:30 PM) Room air (07/31/22 7:40 PM) Blood pressure sites Arm, right (08/01/22 8:49 AM) Arm, right (07/31/22 11:30 PM) Arm, right (07/31/22 7:40 PM) Temperature Route Oral (08/01/22 8:49 AM) Oral (07/31/22 11:30 PM) Oral (07/31/22 7:40 PM) Dry Weight 71.2 kg (07/31/22 4:42 PM) 65.8 kg (07/25/22 12:09 PM) Weight Obtained Via Bed scale (07/31/22 4:00 PM) Standing scale (07/31/22 7:06 AM) Patient/family stated (07/25/22 12:09 PM) Dry Weight Obtained Via Patient/family stated (07/25/22 12:09 PM) Social History Social History Type Response Smoking Status Never smoker; Tobacc o user in household: No entered on: 04/11/16 Sex Female Hospital Progress note * Bella Hylton: PERFORM, SIGN, VERIFY Event Display: Progress Note Hospital Authored Date: [id number] Patient: ANSELMO TURNER Age: 31 years Sex: Female : 1990 Associated Diagnoses: None Author: Bella Hylton Findings Nursing Data Vital Signs : VITAL SIGNS SECTION 08/01/2022 8:49 EST Early Warning Score 0.00 08/01/2022 8:49 EST Early Warning Score 0.00 08/01/2022 8:49 EST Temperature 99.0 DegF Temperature Route Oral Pulse Rate 88 bpm Respiratory Rate 17 br/min Systolic Blood Pressure 116 mm Hg Diastolic Blood Pressure 68 mm Hg Blood pressure sites Arm, right Mean Arterial Pressure 84 mm Hg Pulse Pressure 48 mm Hg Oxygen Saturation 99 % Mode of Delivery (Oxygen) Room air . Narrative/Incidental A+Ox4. VSS. Pt denies SOB, chest pain, N/V/D. Respirations even and steady, on RA. Able to ambulatewith supervision. IV access d/c, catheter tip intact. Pt being discharged home, all personal belongings taken with pt. . 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 Goals & Outcomes, Genitourinary Pt will achieve normal/improved fluid balance, Pt will maintainadequate GI function appropriate for pt, Pt will maintain adequate function appropriate for pt, Pt will resume normal pattern of elimination Interventions, Assess/monitor/maintain Genitourinary status, Assist & encourage pt with meticulous armani care, Encourage PO fluid intake as allowed by diet, Assess for vaginal bleeding, institute pericare, Assess peripad for drainage, consistency, amount, Encourage left side lying positioning BH Goals/Interventions, Genitourinary Yes Genitourinary, Problem Start 07/31/2022 17:09 Reviewed Plan with, Genitourinary Patient Patient Progression, Genitourinary Patient progressing according to plan Genitourinary, Problem Ongoing Yes . Narrative/Incidental PT AOx3, no ambulation this shift, pt c/o of severe abd and vaginal pain, post procedure, ScheduledTylenol ibuprofen and PRN oxycodone continued for pain, Covering provider Tanna Campos notified, Ibuprofen increased fro 600mg to 800mg, Benadryl given for anxiety as well. Alvarenga patent and draining , yellow concentrated urine, IV fluids infusing per order. MD Guerin in to d/c vaginal packing, pt resting in bed, call peres within reach. Refer to [facility] for assessments and interventions.. * Cindi Hayward: PERFORM Event Display: Progress Note Hospital Authored Date: [id number] PT Alvarenga D/C at 0645 with 300cc backfill, pt due to void at 0745. Pt educated on Lovenox SC injection. Will continue to monitor. * Tanna Campos MD: PERFORM Event Display: Progress Note Hospital Authored Date: [id number] Patient: ??ANSELMO TURNER ? Age:??31 Years?Sex:??Female?:??1990?? Subjective In to see patient for uncontrolled pain. Patient reports she feels like she is being stabbed in hervagina, reports the pain worsened when the automatic bed varnish remover activated. She denies any worsening abdominal pain. She is also finding it difficult to sleep. Denies any vaginal bleeding through vaginal packing. She has not yet ambulated, and Alvarenga remains in place. Denies any nausea or vomiting. Denies any chest pain or shortness of breath. Review of Systems Reviewed and negative except as stated in above HPI. Physical Exam Vitals & Measurements T:??97.9?F ?? HR:??87(Monitored)?? NE:??79?? RR:??16?? BP:??119/54?? SpO2:??97%?? HT:??155??cm?? WT:??71.2??kg?? BMI:??29.64?? Constitutional:??Patient appears uncomfortable, tearful when discussing pain. Respiratory:??No increased work of breathing. Abdomen/GI:??Soft, appropriately-tender, non-distended. No guarding or rebound tenderness.?? Gynecologic:??No blood on pad. Vaginal packing in place, not saturated with blood. Normal appearingexternal genitalia. : Alvarenga in place, draining clear yellow urine. Extremities:??No pitting edema in bilateral lower extremities. Skin:??No rash or jaundice. Normal for ethnicity. Neurological/Psychiatric:??Appearance appropriate, mood and affect stable. Assessment/Plan Assessment:??Patient is a 31 yo G0 POD1 following uncomplicated total laparoscopic hysterectomy, bilateral salpingectomy, cystoscopy, and rectocele repair. Patient with uncontrolled pain at this timeand inability to sleep. Patient currently due for Ibuprofen and Tylenol, which is being administered at this time. On exam, abdomen remains soft and appropriately tender without signs of acute abdomen. Patient with vaginal packing in place, with packing unsaturated and no bleeding around packing. Discussed with patient plan to increase frequency of Oxycodone to every 3 hours overnight, but she should let her nurse know if this does not improve her pain. As patient is anxious about not being able to sleep, will also administer 25 mg oral Benadryl. Plan to re- evaluate patient in the morning with removal of vaginal packing and Alvarenga with void trial. ?? Plan discussed with Dr. Guerin, PGY4. ?? Postoperative state (Z98.890):? - Routine post-operative care - Pain management: Scheduled Ibuprofen/Tylenol, Oxycodone 5 mg every 3 hours - Bowel regimen: Simethicone, Docusate - Regular diet - Alvarenga and vaginal packing in place. Plan to remove with void trial in AM. ?? Anxiety (F41.9):? - Ordered for home Lorazepam as needed ?? Asthma (J45.909):? - Continue home albuterol ?? History of DVT of lower extremity (Z86.718):? - (p) AM CBC - ( ) Start Lovenox for 10 days post-operatively pending AM labs - ( ) Lovenox teaching with nurse prior to discharge ?? Intake and Output Intake and Output Results?? This visit (24 hour periods starting at 07:00 EST)? 07/31/22 *?? 07/30/22?? 07/29/22?? Total Summary?Intake mL?? 1,610?? --?? --?Output mL?? 2,300?? --?? --?Fluid Balance ?? -690?? --?? --?? Intake (3)?Lactated Ringers Injection 1,000 mL mL?? 875?? --?? --?Lactated Ringers Injection 1000 mL mL?? 375?? --?? --?Oral Fluids mL?? 360?? --?? --?Total?? 1,610?? --?? --?? Output (1)?Urine Catheter mL?? 2,300?? --?? --?Total?? 2,300?? --?? --?? Counts (2)?Oral Fluids mL?? 360?? --?? --?Urine Catheter mL?? 2,300?? --?? --? * This column has not completed the indicated time period.?? Note * Kenyatta Washington RN: PERFORM Event Display: Discharge/Transfer Note Hospital Authored Date: [id number] Nursing Discharge Note Entered On: 08/01/2022 11:32 EST Performed On: 08/01/2022 11:32 EST by Kenyatta Washington RN Nursing Discharge Note 2 Discharge Time : 08/01/2022 11:32 EST Discharge Level of Care at Discharge : Home/Residential/Foster Care Patient Left Unit Via : Wheelchair Patient Accompanied Off Unit with : Responsible adult DC Instructions Provided & Signed by Pt : Yes Patient Understands D/C Instructions : Yes Verbalized Understanding of D/C Plan By : Patient Patient Instructions Discharge Signed : Yes Did Pt have Specialty Bed or Wound Vac : No Kenyatta Washington RN - 08/01/2022 11:32 EST * Keyonna Guerin DO: PERFORM Event Display: Discharge/Transfer Note Hospital Authored Date: [id number] Patient: ??ANSELMO TURNER ? Age:??31 Years?Sex:??Female?:??1990?? Admit Date Admission Date: 07/31/2022 Discharge Date 08/01/22 Discharge Diagnoses 1.??Anxiety, 07/31/2022 2.??Asthma, 07/31/2022 3.??Medulloblastoma, 07/31/2022 4.??POTS (postural orthostatic tachycardia syndrome), 07/31/2022 Fibroid uterus, 07/30/2022 History of DVT of lower extremity, 07/31/2022 Narcolepsy, 07/31/2022 Postoperative state, 07/31/2022 Rectocele, 07/30/2022 [facility] Delia Dash is a 31yo G0 admitted postoperatively following total laparoscopic hysterectomy, bilateral salpingectomy, cystoscopy, rectocele repair. EBL _. She was admitted for observation overnight. The remainder of her hospital course was uncomplicated. She was discharged home on POD#1 after meetingmilestones. ?? On day of discharge, Patient seen and examined. Reports pain is mild and well controlled with medication; improved with removal of vaginal packing.??Tolerating diet. Denies nausea, vomiting, chestpain, shortness of breath. Admits to flatus, denies bowel movement. Discharge pending voiding trial and lovenox teaching this AM. Objective/Physical Exam on Day of Discharge Vitals & Measurements T:??97.9?F ?? HR:??87(Monitored)?? NE:??79?? RR:??16?? BP:??119/54?? SpO2:??97%?? HT:??155??cm?? WT:??71.2??kg?? BMI:??29.64?? General: Alert, in no acute cardiopulmonary distress, Normal affect. Respiratory: Clear to auscultation bilaterally. No wheezing, rales or rhonchi. Cardiovascular: Regular rate and rhythm, no murmurs, rubs or gallops. Gastrointestinal: Abdomen soft, mild tenderness, mild distention. Normal bowel sounds. Incisions covered with skin glue -??clean, dry and intact. s/p vaginal packing. Neurologic: No focal neurological deficits. Moves all extremities spontaneously Assessment/Plan Assessment:??31yo with complex medical history admitted postoperatively following total laparoscopic hysterectomy, bilateral salpingectomy, cystoscopy and rectocele repair with Dr. Moura. POD#1. Recovering well. Meeting postoperative milestones. No acute events overnigh, vaginal packing removed with??significant and immediate improvement in vaginal pain.??Plan for discharge home today??following voiding trial this AM and lovenox teaching. ?? Postoperative state (Z98.890):? Tylenol, Ibuprofen, Oxycodone PRN Simethicone, Docusate, Senna, Miralax Regular diet SCDs when not ambulating Lovenox for 10 days, see below s/p vaginal packing Ambulation Encouraged Plan for voiding trial this AM ?? History of DVT of lower extremity (Z86.718):? Lovenox for 10 days postoperative, 9 days prescribed Plan for nurse lovenox teaching this AM prior to discharge ?? POTS (postural orthostatic tachycardia syndrome) (R00.0):? Pacemaker in place Telemetry only as indicated, no indication at this time home Metoprolol ordered ?? 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 Fibroid uterus (D25.9):? s/p surgery as above (p) final pathology ?? Rectocele (N81.6):? s/p repair with Dr. Moura s/p vaginal packing ?? Anxiety (F41.9):? Ativan PRN ?? Asthma (J45.909):? albuterol inhaler PRN encourage incentive spirometer ?? Narcolepsy (G47.419):? Adderall ordered as prescribed ?? Future Appointments Saturday 3:00 PM EST ?? With: Where: [facility] Radiology [facility] [place] [address] [facility], [address] - Saturday 3:30 PM EST ?? With: Where: [facility] Radiology [facility] [place] [address] [facility], [address] - Saturday 11:40 AM EST ?? With: Martell KEATING, Jacqueline Almanza Where: [facility] [address] [facility] [address] [place], [place] - Saturday 8:00 AM EST ?? With: Abby Villalpando MD Where: [facility] ARCHAEOLOGY PROFESSOR [address] [place], [place] - Saturday 10:30 AM EST ?? With: Nita Castillo MD Where: [facility] [address] [place] [address]- Saturday 4:20 PM EST ?? With: Abby Villalpando MD Where: [facility] ARCHAEOLOGY PROFESSOR [address] [place] [address]- Saturday 10:20 AM EDT ?? With: Sisi Hernandez MD Where: [facility] [address] [place] [address]- Procedures Performed This Visit Repair Rectocele Posterior, Posterior Hysterectomy Total Laparoscopic with Kit, Bilateral Cystoscopy Discharge Medications ???Acetaminophen (Tylenol 325 mg oral tablet)???Albuterol (albuterol CFC free 90 mcg/inh inhalationaerosol)???Amphetamine-Dextroamphetamine (Adderall XR 20 mg oral capsule, extended release)???Cholecalciferol (Vitamin D3 1000 intl units oral capsule)???Cyanocobalamin (cyanocobalamin 1000 mcg/ml injectable solution)???Docusate (Colace sodium 100 mg oral capsule)???Durable Medical Equipment (Compression Stockings)???Durable Medical Equipment (Freestyle Lancets)???Durable Medical Equipment (Freestyle Lite Monitor)???Durable Medical Equipment (Freestyle Test Strips)???Durable Medical Equipment (syringe and needles)???Enoxaparin (Lovenox 40 mg/0.4 mL injectable solution)???Esomeprazole (esomeprazole 40 mg oral enteric coated capsule)???Fluticasone (Flovent HFA 220 mcg/inh inhalation aerosol)???Ibuprofen (ibuprofen 800 mg oral tablet)???Lorazepam (LORazepam 0.5 mg oral tablet)???Metoprolol (Metoprolol Tartrate 50 mg oral tablet)???Nitroglycerin (nitroglycerin 0.4 mg sublingual tablet)???Oxycodone (oxyCODONE 5 mg oral tablet)???Polyethylene Glycol 3350 (MiraLax oral powder for reconstitution)???Senna (senna - oral tablet)???Simethicone (simethicone 80 mg oral tablet, chewable)???Verapamil Immunizations during Hospitalization Vaccine Date Status Commentsinfluenza virus vaccine, inactivated - Not Given Patient Refuses influenza virus vaccine, inactivated - Not Given Patient Refuses pneumococcal 23-valent vaccine 11/23/2016 Given Other : ??na pneumococcal 23-valent vaccine - Not Given Patient Refuses pneumococcal 23-valent vaccine - Not Given Patient Refuses wants at pcp pneumococcal 23-valent vaccine - Not Given Expectation Not Necessary pneumococcal 23-valent vaccine - Not Given Patient Refuses pneumococcal 23-valent vaccine - Not Given Patient Refused influenza virus vaccine, inactivated - Not Given Patient Refused Lab Results Test Name Test Result Date/TimeWBC 11.0 k/mm3 07/31/2022 20:05 EST Hgb 12.2 Gm/dL 07/31/2022 20:05 EST Hct 35.9 % 07/31/2022 20:05 EST RDW-SD 41.9 femtoliters 07/31/2022 20:05 EST Creatinine-Blood 0.8 mg/dL 07/31/2022 18:08 EST Patient Instructions Call the office with any concerns including:?? Vaginal bleeding more than spotting Fever of 100.4 or greater Foul-smelling vaginal discharge Redness/swelling/drainage at incision Difficulty or burning with urination?? Nausea and vomiting with inability to tolerate food,?? Pain not controlled by your prescribed medications Shortness of breath or chest pain. Swelling of the extremities. Dizziness or heart palpitations ?? General Instructions: - Do not drive while taking opioid medications. Do not drive for 1-2 weeks - Avoid lifting anything 15 lbs or greater until cleared by doctor. - Stairs are OK but avoid multiple trips/ skipping steps and go slowly. - Walk as often as you are able. - Do not put anything in the vagina. No intercourse, tampons, or douching - Continue your stool softeners (examples: Colace/docusate, senna, Miralax) until no longer taking opioids (e.x. oxycodone) and stools are regular. - Shower as usual. Do not scrub the incisions. Pat the skin dry. Avoid tubs/ soaking/ pools. * Abby Villalpando MD: PERFORM Event Display: Discharge/Transfer Note Hospital Authored Date: Attending Attestation: I have seen and evaluated this patient.?? I have discussed the case and its management with the resident and agree with the findings and plan as documented in the resident???s note. ?? Abby Villalpando MD * Padmini MONTELONGO, Kenyatta: PERFORM Event Display: Patient Education/Instruction Authored Date: [id number] Inpatient Adult Discharge Instructions [place] [id number] Name: ANSELMO TURNER : 1990 Visit: 07/31/2022 06:55:00 Current Date: 08/01/2022 10:44 Account: [id number] Inpatient Adult Discharge Instructions We would like to thank you for allowing us to assist you with your healthcare needs. The following includes patient education materials and information regarding your injury/illness. Our entire staffstrives to provide an excellent experience for our patients and their families. PLEASE ENSURE YOU FOLLOW-UP PER THE INSTRUCTIONS BELOW! ?? YOUR OPINION IS IMPORTANT TO US! Please complete the survey you may receive by mail or email. Your feedback will be used to make improvements to the healthcare experiences of our patients and their families. Surveys are administered by [employer]. ?? If further treatment with your primary care physician or another doctor is recommended, it is important for you to keep the appointment. Call your primary care physician or return to the Emergency Department immediately if your condition worsens, fails to improve, or new symptoms develop. If you need to find a doctor, you can call [facility] for a referral at [phone] or toll free at [phone] or log in to [email or web address] ?? You can view and manage your care through the patient portal or by using a health care rosa of your choosing. [employer] is a website that allows you to securely view your medical information including your hospital discharge summary, office visit summaries, medications and follow-up visits. You can also request appointments, renew medications, and request access to your medical information using a health care rosa of your choosing, or just ask a question. You can enroll at [email or web address] or register during your next office visit. You have been discharged from [facility], Patient Care Unit: W3. If you have any questions regarding these instructions after you leave, please call us and we will be happy to assist you. [facility] Your Care Team Attending Physician Kwasi KEATING, Abby Consulting Providers Abby Villalpando MD; Debra Warren MD Discharging Providers Oren De Guzman DO Reason for Admission FIBROID UTERUS AUB CS DS Your Diagnosis Fibroid uterus Rectocele Postoperative state Anxiety Asthma Medulloblastoma POTS (postural orthostatic tachycardia syndrome) History of DVT of lower extremity Narcolepsy Tests Performed Below is a partial list of the tests performed during your hospitalization. You may have had other tests and procedures not included in this list. Please discuss all test results with your provider. BUN Calcium Level CBC Creatinine Electrolytes Glucose Level HCG Urine?-- Results Pending -- Type and Screen ? You will be contacted within 72 hours with your results. Primary Care Provider Sisi Hernandez MD Advance Directive Health Care Proxy on File No No qualifying data available. Discharge Vitals Temperature: 99 DegF Height: 155 cm Pulse Rate: 88 bpm Weight: 71.2 kg Respiratory Rate: 20 br/min Body Mass Index:??29.64 kg/m2??High Systolic Blood Pressure: 116 mm Hg Body surface area: 1.75 Diastolic Blood Pressure: 68 mm Hg ?? Oxygen Saturation: 99 % ?? Studies Pending All tests and labs ordered during this hospital stay have been completed unless listed below. Please discuss all pending results with your provider listed above in these instructions. ?? CBC HCG Urine Pathology Tissue Request () What to do next Instructions From Your Doctor Discharge Orders Instructions from your Care Team Patient Instructions ?? Call the office with any concerns including:?? Vaginal bleeding more than spotting Fever of 100.4 or greater Foul-smelling vaginal discharge Redness/swelling/drainage at incision Difficulty or burning with urination?? Nausea and vomiting with inability to tolerate food,?? Pain not controlled by your prescribed medications Shortness of breath or chest pain. Swelling of the extremities. Dizziness or heart palpitations ?? General Instructions: - Do not drive while taking opioid medications. Do not drive for 1-2 weeks - Avoid lifting anything 15 lbs or greater until cleared by doctor. - Stairs are OK but avoid multiple trips/ skipping steps and go slowly. - Walk as often as you are able. - Do not put anything in the vagina. No intercourse, tampons, or douching - Continue your stool softeners (examples: Colace/docusate, senna, Miralax) until no longer taking opioids (e.x. oxycodone) and stools are regular. - Shower as usual. Do not scrub the incisions. Pat the skin dry. Avoid tubs/ soaking/ pools. Scheduled Follow-Up Appointments Saturday 3:00 PM EST ?? With: Where: [facility] Radiology [facility] [address], [address] [place] [address]- Saturday 3:30 PM EST ?? With: Where: [facility] Radiology [facility] [address], [address] [place] [address]- Saturday 11:40 AM EST ?? With: Jacqueline Moura MD Where: [facility] [address] 4th [place] [address]- Saturday 8:00 AM EST ?? With: Abby Villalpando MD Where: [facility] ARCHAEOLOGY PROFESSOR [address] [place] [address]- Saturday 10:30 AM EST ?? With: Nita Castillo MD Where: [facility] [address] [place] [address]- Saturday 4:20 PM EST ?? With: Abby Villalpando MD Where: [facility] ARCHAEOLOGY PROFESSOR [address] [place] [address]- Saturday 10:20 AM EDT ?? With: Sisi Hernandez MD Where: [facility] [address] [place] [address]- You Need to Schedule the Following Appointments Follow Up with??As Needed When?? Why: Call [facility] ARCHAEOLOGY PROFESSOR office with any concerns prior to sched. appt. Where: Discharge Medications ANSELMO TURNER :1990 Visit Date:07/31/2022 Medications: Please continue your medications until treatment is completed or stopped by your provider. Medications not listed below should be discontinued. Discuss any questions related to medications with your provider. What How Much When Instructions Next Dose New Polyethylene Glycol 3350 (MiraLax oral powder for reconstitution) 17 gram Oral Daily dissolve in water before taking ?? Pickup at [facility] 3 Tomorrow Morning 8am New Senna (senna - oral tablet) 2 tab(s) Oral Daily at Bedtime as needed for for constipation Pickup at [facility] 3 as needed Changed Acetaminophen (Tylenol 325 mg oral tablet) 3 tab(s) Oral Every 6 hours as needed for for pain Pickup at [place] [address] as needed Changed Ibuprofen (ibuprofen 800 mg oral tablet) 1 tab(s) Oral Every 8 hours Pickup at [place] [address] today 430pm Unchanged Albuterol (albuterol CFC free 90 mcg/ inh inhalation aerosol) 2 puff(s) Inhalation Every 6 hours as needed for for wheezing Duration: 30 Days as needed Unchanged Amphetamine-Dextroamphetamine (Adderall XR 20 mg oral capsule, extended release) 1 capsule Oral Daily in the morning Tomorrow Morning 8am Unchanged Cholecalciferol (Vitamin D3 1000 intl units oral capsule) 1 capsule Oral Daily Tomorrow Morning 8am Unchanged Cyanocobalamin (cyanocobalamin 1000 mcg/ ml injectable solution) 1 Milliliter Intramuscular Every 30 days Resume home regimen Unchanged Docusate (Colace sodium 100 mg oral capsule) 1 capsule Oral Twice a day as needed for for constipation Pickup at [place] [address] as needed Unchanged Durable Medical Equipment (Compression Stockings) See [...] inches for use with b12 ?? Unchanged Enoxaparin (Lovenox 40 mg/ 0.4 mL injectable solution) 40 Milligram Subcutaneous Injection Daily Duration: 9 Days Pickup at [place] [address] Tomorrow Morning 8am Unchanged Esomeprazole (esomeprazole 40 mg oral enteric coated capsule) TAKE 1 CAPSULE BY MOUTH EVERY DAY ?? Tomorrow Morning 8am Unchanged Fluticasone (Flovent HFA 220 mcg/ inh inhalation aerosol) 2 puff(s) Inhalation Twice a day new dosage ?? tonight 9pm Unchanged Lorazepam (LORazepam 0.5 mg oral tablet) See instructions TAKE 1 TABLET BY MOUTH TWO TIMES A DAY NEEDED FOR ANXIETY ?? as needed Unchanged Metoprolol (Metoprolol Tartrate 50 mg oral tablet) Tomorrow Morning 8am Unchanged Nitroglycerin (nitroglycerin 0.4 mg sublingual tablet) 1 tab(s) Sublingual Every 5 minutes as needed for for chest pain as needed Unchanged Oxycodone (oxyCODONE 5 mg oral tablet) 1 tab(s) Oral Every 6 hours as needed for for pain Duration: 5 Days Pickup at [facility] 3 as needed Unchanged Simethicone (simethicone 80 mg oral tablet, chewable) 1 tab(s) Chew 4 times a day Pickup at [facility] 3 Resume home regimen Unchanged Verapamil Resume home regimen Pharmacy Information [facility] 3: [address] [place], [place] [id number] [phone] Test Results Below is a partial list of the most recent Laboratory test results done prior to this discharge. You may have had other tests and procedures not included in this list. Please discuss all test resultswith your provider. BUN (07/31/2022) ???BUN - 8 mg/dL Calcium Level (07/31/2022) ???Calcium - 9.4 mg/dL CBC (08/01/2022) ???WBC - 8.7 k/mm3???RBC - 4.04 m/mm3???Hgb - 11.7 Gm/dL???Hct - 34.3 %???MCV - 84.9 femtoliters???MCH - 29.0 pg???MCHC - 34.1 g/dL???Platelet Count - 157 k/mm3???RDW-SD - 43.8 femtoliters???MPV - 12.7 femtoliters???Nucleated RBC (Automated) - 0.0 #/100 WBC'S???Abs. NRBC - 0.0 k/mm3 Creatinine (07/31/2022) ???Creatinine-Blood - 0.8 mg/dL???Estimated GFR Creatinine - 105 ML/MIN/1.73 M2 Electrolytes (07/31/2022) ???Sodium - 139 mmol/L???Potassium - 4.8 mmol/L???Chloride - 106 mmol/L???Bicarbonate Level - 20 mmol/L???Anion Gap - 13 Glucose Level (07/31/2022) ???Glucose Level - 115 mg/dL Type and Screen (07/31/2022) ???Blood Type - B Negative???Antibody Screen - Negative Allergies (NKA means No Known Allergies) Fruit??(rash, Allergy to fruit) Sertraline Hydrochloride??(skin burning, burning) cefoxitin??(Cough, Tightness in throat) vancomycin??(Throat itching, Itching of skin) Problems Active Problems??(25) *BHN/CCA/CC-[facility]- [phone]/Health halfway, active care coordination?? Abdominal pain?? Adjustment disorder with mixed anxiety and depressed mood?? Anxiety?? Asthma?? B12 deficiency?? Back pain?? Bilateral leg pain?? Breast lump?? Chronic insomnia?? Cognitive disorder?? Esophagitis?? Fatigue?? GERD (gastroesophageal reflux disease)?? Hemoptysis?? Hypoglycemia, unspecified?? IBS (irritable bowel syndrome)?? Medulloblastoma?? Memory change?? Narcolepsy and cataplexy?? Near syncope?? POTS (postural orthostatic tachycardia syndrome)?? RUQ pain?? Somnolence, daytime?? Syncope?? Education Materials Below is the list of Educational Leaflet Providered with your Discharge Instructions. Enoxaparin Prefilled Syringe?? Valuables and Belongings I fully understand and agree that [facility] accepts no responsibility for all my personal property including clothing, toilet articles, radios, jewelry, dentures, hearing aids, rings, money, or any other property that is in my possession or is brought to me after admission. I understand certain valuables may be placed in a hospital safe for a short period of time. I understand that the hospital is not liable for loss or damage due to accident, fire, or other natural occurrence while said property is in the safe. I accept full responsibility for any personal property that I keep with me, and will not hold the hospital responsible in case of loss or disappearance. I acknowledge that i have been encouraged to send valuables and belongings home. ?? Review of Valuable and Belonging List: With patient Disposition of Belongings: Sent home with patient/family Date for Pt to Sign Valuables/Belongings: 07/31/22 16:05:00 ?? Other Discharge Information ? Pulmonary Rehab Status?? Pulmonary Rehab Discharge Status?? Respiratory Rate: 20 br/min ? Common Emergency Awareness Tips IS IT A [...] are strongly encouraged to quit. Please call [facility] at [phone] or [phone] ([phone]) or log in to [email or web address] for referrals to smoking cessation programs. ?? The National Suicide Prevention Hotline is available 18/02 if you or someone you know needs to find a reason to keep living. By calling 1-397-659-[employer] (4939) you'll be connected to a skilled, trained counselor at a crisis center in your area. INPATIENT DISCHARGE INSTRUCTIONS SIGNATURE PAGE ANSELMO TURNER Location:[facility] Registration Date and Time:07/31/2022 06:55 EST Primary Care Physician: Mary KEATING, Sisi Almanza, I JOHNNYTEODORAANSELMO, have received the above patient education materials/instructions and have verbalized understanding. If ambulance or transport services are being used I further acknowledge beinggiven a choice of service. ?? If you need to contact me, please call me at this number: . Patient/Copy Machine Operator Name: Patient/Copy Machine Operator Signature: Relationship to Patient: Witness Name/Signature: Date: * Kenyatta [place] RN: PERFORM Event Display: Patient Education Leaflets Authored Date: [id number] Enoxaparin Prefilled Syringe ?? [id number] Enoxaparin Prefilled Syringe Brands: Lovenox Uses This medicine is used for the following purposes: ??? heart attack ??? prevent blood clots ??? blood clot ?? Instructions This medicine is used by injecting it into the skin. Please ask your doctor, nurse or pharmacist for the correct places on your body where this medicine can be injected. Do not mix this medicine with other solutions. Always inspect the medicine before using. The liquid should be clear or light yellow. Check the medicine before each use. If the liquid medicine has any particles in it, appears discolored, or if the vial appears damaged, do not use it. Keep medicine at room temperature. Protect from light. Never use any medicine that has . Ask your doctor, nurse or pharmacist to show you how to use this medicine correctly. Change the location of the injection each time. Choose a location at least 1 inch from the last injection. Drug interactions can change how medicines work or increase risk for side effects. Tell your healthcare providers about all medicines taken. Include prescription and kmqa-kgg-lvxqkle medicines, vitamins, and herbal medicines. Speak with your doctor or pharmacist before starting or stopping any medicine. Talk to your doctor before taking other medicines, including aspirins and ibuprofen containing products. Speak to your doctor about which medicines are safe to use while you are on this medicine. It is very important that you follow your doctor's instructions for all blood tests. ?? Cautions This medicine may cause serious bleeding from the stomach or bowels. Stop this medicine and call your doctor immediately if you see any signs of bleeding. Bleeding can cause pain in the stomach, vomiting up liquid that looks like coffee grounds, and red or dark tarry stools. There is an increased risk of bleeding while on this medicine, please tell your doctor or nurse if you notice any excessive bleeding or bruising. Do not use the medication any more than instructed. Tell the doctor or pharmacist if you are , planning to be , or . Used needles and syringes should be thrown away properly in a medical waste container. Ask your doctor or pharmacist if you need help. Do not share this medicine with anyone who has not been prescribed this medicine. ?? Side Effects The following is a list of some common side effects from this medicine. Please speak with your doctor about what you should do if you experience these or other side effects. ??? changes in the number of cells in the blood ??? unusual bruising or discoloration on skin ??? swelling of the legs, feet, and hands ??? fever ??? pain, redness, swelling near injection ??? nausea??? red, burning, or itchy skin Call your doctor or get medical help right away if you notice any of these more serious side effects: ??? increased risk of bleeding ??? confusion ??? nosebleeds ??? bloody or dark, tarry stools A few people may have an allergic reaction to this medicine. Symptoms can include difficulty breathing, skin rash, itching, swelling, or severe dizziness. If you notice any of these symptoms, seek medical help quickly. ?? Extra Please speak with your doctor, nurse, or pharmacist if you have any questions about this medicine. ?? [email or web address] IMPORTANT NOTE: This document tells you briefly how to take your medicine, but it does not tell youall there is to know about it. Your doctor or pharmacist may give you other documents about your medicine. Please talk to them if you have any questions. Always follow their advice. There is a more complete description of this medicine available in Thai. Scan this code on your smartphone or tablet or use the web address below. You can also ask your pharmacist for a printout. If you have any questions, please ask your pharmacist. The display and use of this drug information is subject to Terms of Use. Copyright(c) 2021 [employer]. ?? The [employer]. All rights reserved. This information is not intended as a substitute for professional medical care. Always follow your healthcare professional's instructions. ?? Patient Care team information Care Team Personnel Name: Vidhya Grace RN Position: [facility] RN Member Role: Primary Care Nurse Name: Sisi Hernandez MD Position: [facility] Primary Care Physician Member Role: PCP Address: Address: [address] [place] [address] Name: Lizzette To RN Position: [facility] RN Member Role: Primary Care Nurse Name: Karolina Adkins MD Position: [facility] Physician -Physician Practices Member Role: [employer] Consulting Physician Address: Address: [address] [place] [address] [facility] [address] Name: Isadora Godfrey RN Position: [facility] RN Member Role: Primary Care Nurse Name: Rossy Rowe RN Position: [facility] SN RN Member Role: Primary Care Nurse Name: Cindi Hayward Position: [facility] RN Member Role: Primary Care Nurse Name: Bela Mcmahon RN Position: [facility] Hospital Business Risk Analyst Member Role: Primary Care Nurse Name: Nicole Hernandez RN Position: [facility] RN Member Role: Primary Care Nurse Name: Zac Castillo RN Position: [facility] ED RN W/OE and Tasks Member Role: Primary Care Nurse Name: Harjinder MONTELONGO, Jeanne Baker Position: S RN Member Role: Primary Care Nurse Care Team Related Persons Name: BEAR TURNER Address: home [address] [place] [id number] Name: ISATU ECKERT Address: [place] [address] Name: ISAAC VERDE Address: [address] [address] Name: ADRY DURANT Name: PANCHO JEROME Address: [place] [address]
--- OUTSIDE RECORDS SUMMARY | 2024-04-27 10:20 | XMS_ITS | Continuity of Care Document ---
Author Organization [facility] Address [address] 4t [place] [address]- Care Team Providers Care Cigarette Tipper Name Role Phone Sisi Hernandez MD [facility] Phys[id number] Date(s[facility] 08/16/22 - 09/15/22 [facility] [address] 4th Floor [place], [place] [address] Allergies, Adverse Reactions, Alerts [...] 13:12:00 EDT, Aerosol, Route to Pharmacy Electronically, [id number], [facility], ONLY ALBUTEROL HFA, CANCEL... Start Date: 02/15/22 Stop Date: 02/10/23 Status: Ordered Colace sodium 100 mg oral capsule 100 mg, 1, capsule, By Mouth, 2 times a day, PRN, # 30 capsule, Refills 0, Tot. Refills 0, Maintenance, for constipation, 07/31/22 11:03:00 EST, Route to Pharmacy Electronically, [facility], Partial fill upon [...] 6 Refills, Maintenance, 09/04/22 8:50:00 EST, Solution, [facility], 155, cm, 08/14/22 13:52:00 [...] 0 Refills, Maintenance, 02/15/22 13:10:00 EDT, Aerosol, [facility], new dosage, 155, cm, [...] 11:03:00 EST, Route to Pharmacy Electronically, [facility], Partial fill upon patient request if the prescription is for a schedule... Start Date: 07/31/22 Status: Ordered LORazepam 0.5 mg oral tablet See Instructions, TAKE 1 TABLET BY MOUTH TWO TIMES A DAY NEEDED FOR ANXIETY, # 28 tablet, 2 Refills, Maintenance, 06/06/22 10:45:00 EST, [facility], 155, cm, 04/06/22 [...] Refills, Maintenance, 08/01/22 6:06:00 EST, REC Powder, [facility], Partial fill upon patient [...] 0 Refills, Maintenance, 08/01/22 6:06:00 EST, Tablet, [facility], Partial fill upon patient request if the prescription is for a schedule II opioid drug., 155, cm,... Start Date: 08/01/22 Status: Ordered simethicone 80 mg oral tablet, chewable 80 mg, 1, tablet, Chew, 4 times a day, # 12 tablet, Refills 0, Tot. Refills 0, Maintenance, 07/31/22 11:03:00 EST, Route to Pharmacy Electronically, [facility], Partial fill upon patient request if [...] 07/31/22 11:03:00 EST, Route to Pharmacy Electronically, [facility], Partial fill upon patient request if [...] 3 Refills, Maintenance, 06/05/22 14:27:00 EST, Capsule, [facility], Partial fill upon patient request if [...] Bilateral leg pain Confirmed Active *BHN/CCA/[facility]- [phone]/Health skilled nursing, active care coordination Confirmed Active [...] Care Physician Member Role: PCP Address: Address: [address] [place] [address] [facility] Name: Lizzette To RN Position: [facility] RN Member Role: Primary Care Nurse Name: Karolina Adkins MD Position: [facility] Physician -Physician Practices Member Role: [employer] Consulting Physician Address: Address: [address] [place] [address] [facility] [place] [facility] Name: Isadora Godfrey RN Position: [facility] RN Member Role: Primary Care Nurse Name: Rossy Rowe RN Position: [facility] SN RN Member Role: Primary Care Nurse Name: Cindi Hayward Position: [facility] RN Member Role: Primary Care Nurse Name: Bela Mcmahon RN Position: [facility] Hospital House Repairer Member Role: Primary Care Nurse Name: Nicole Hernandez RN Position: [facility] RN Member Role: Primary Care Nurse Name: Zac Castillo RN Position: [facility] ED RN W/OE and Tasks Member Role: Primary Care Nurse Name: Jeanne Grande RN Position: [facility] RN Member Role: Primary Care Nurse Care Team Related Persons Name: BEAR TURNER Address: home [address] [place], [place] Name: BEAR TURNER SECONDARY Address: home [address] [place], [place] Name: ISATU ECKERT Address: home [place], [place] Name: ISAAC VERDE PRIMARY Address: home [address] [place] [address] Name: ADRY DURANT Name: PANCHO JEROME Address: [place] [address]
--- OUTSIDE RECORDS SUMMARY | 2024-04-27 10:20 | XMS_ITS | Continuity of Care Document ---
Author Organization [facility] Address [address] [place] [address]- Care Team Providers Care Clerical Adviser Name Role Phone Sisi Hernandez MD Primary Care Physician Encounter [facility] Date(s): 01/26/21 - 05/12/[address] [address] Discharge Disposition: A-D/C Home Attending Physician: [...] 8:50:00 EDT, Aerosol, Route to Pharmacy Electronically, [id number], [facility], 155, cm, 06/03/20 13:15:00 E... Start Date: 12/02/20 Stop Date: 11/27/21 Status: Ordered armodafinil 150 mg oral tablet 1 tablet = 150 mg, By Mouth, Daily, # 14 tablet, 0 Refills, Maintenance, 05/12/21 13:42:00 EDT, Tablet, [facility], Partial fill [...] mg, By Mouth, Daily, FURTHER REFILLS BY RECEIVABLE CLERK, # 90 tablet, 0 Refills, Maintenance, 11/27/19 8:57:00 EDT, ER Tablet, [facility], 155, cm, 10/07/19 12:25:00 EDT, Height, [...] Refills, Maintenance, 05/06/20 15:17:00 EDT, [facility], 155, cm, 05/03/20 18:55:00 [...] 15:30:53 EST, Aerosol, Route to Pharmacy Electronically, [id number]... Start Date: 09/12/18 Stop Date: 02/09/19 Status: Ordered ProAir HFA 90 mcg/inh inhalation aerosol with adapter 2, puffs, Inhalation, Every 4 hours, PRN, use with spacer chamber BRAND NAME MEDICALLY NECESSARY, #8.5 Gm, Refills 0, Tot. Refills 0, Maintenance, 12/05/20 15:38:00 EDT, Aerosol, Route to Pharmacy Electronically, [id number]... Start Date: 12/05/20 Status: Ordered syringe and [...] 2 Refills, Maintenance, 08/04/20 12:39:00 EST, Capsule, [facility], Partial fill upon [...] Active Bilateral leg pain(Confirmed) Active *BHN/CCA/CC-[facility]- [phone]/Health intermediate, active care coordination(Confirmed) Active POTS (postural orthostatic t achycardia syndrome)(Confirmed) Active Medulloblastoma(Confirmed) Active RUQ pain(Confirmed) Active Viral URI(Confirmed) Active Social History Social History Type Response Smoking Status Never smoker; Tobacc o user in household: No entered on: 04/11/16 Sex
--- OUTSIDE RECORDS SUMMARY | 2024-04-27 10:20 | XMS_ITS | Continuity of Care Document ---
Author Organization [facility] Address [address] [place] [address]- Care Team Providers Care Tinsmith Helper Name Role Phone Mary KEATING, Sisi Almanza Primary Care Physician Encounter [facility] Date(s): 07/31/21 - 08/30/21 [facility] [address] [place], [place] [address] Allergies, Adverse Reactions, Alerts Substance [...] 0 Refills, Maintenance, 08/24/21 13:15:00 EST, Tablet, [facility] Start Date: 08/24/21 Status: Ordered Adderall XR 15 mg oral capsule, extended release 1 capsule = 15 mg, By Mouth, 2 times a day, Change from 10 mg XR and increase to 2 times per day. To take with short acting 5 mg, # 60 capsule, 0 Refills, Maintenance, 08/24/21 13:13:00 EST, ER Capsule, [facility], Partial fill upon leonardo... Start Date: 08/24/21 Status: Ordered albuterol CFC free 90 mcg/inh inhalation aerosol 2, puffs, Inhalation, Every 6 hours, PRN, # 2 each, Refills 11, Tot. Refills 11, Maintenance, 12/02/20 8:50:00 EDT, Aerosol, Route to Pharmacy Electronically, [id number], [facility], 155, cm, 06/03/20 13:15:00 [...] Maintenance, 06/15/20 11:56:00 EST, Solution, [facility], 155, cm, 06/03/20 13:15:00 [...] mg, By Mouth, Daily, FURTHER REFILLS BY HAIRSPRING CUTTER, # 90 tablet, 0 Refills, Maintenance, 11/27/19 [...] Maintenance, 05/06/20 15:17:00 EDT, [facility], 155, cm, 05/03/20 [...] 15:30:53 EST, Aerosol, Route to Pharmacy Electronically, [id number]... Start Date: 09/12/18 Stop Date: 02/09/19 Status: Ordered ProAir HFA 90 mcg/inh inhalation aerosol with adapter 2, puffs, Inhalation, Every 4 hours, PRN, use with spacer chamber BRAND NAME MEDICALLY NECESSARY, #8.5 Gm, Refills 0, Tot. Refills 0, Maintenance, 12/05/20 15:38:00 EDT, Aerosol, Route to Pharmacy Electronically, [id number]... Start Date: 12/05/20 Status: Ordered Sunosi 75 [...] Active Bilateral leg pain(Confirmed) Active *BHN/CCA/CC-[facility]- [phone]/[facility], active care coordination(Confirmed) Active POTS (postural orthostatic t achycardia syndrome)(Confirmed) Active Medulloblastoma(Confirmed) Active RUQ pain(Confirmed) Active Viral URI(Confirmed) Active Social History Social History Type Response Smoking Status Never smoker; Tobacc o user in household: No entered on: 04/11/16 Sex Female
--- OUTSIDE RECORDS SUMMARY | 2024-04-27 10:20 | XMS_ITS | Continuity of Care Document ---
Author Organization [facility] Address [address] [place] [address]- Care Team Providers Care Steam Heating Installer Name Role Phone Sisi Hernandez MD Primary Care Physician Encounter [facility] R [id number] Date(s): 05/20/20 - 05/21/[address] [address]- [facility] Discharge Disposition: A-D/C Walkout Attending Physician: Not [...] 8:59:00 EDT, Aerosol, Route to Pharmacy Electronically, [id number], [facility] [...] 5 Refills, Maintenance, 03/04/20 9:53:00 EDT, Solution, [facility], 155, cm, 10/07/19 12:25:00 EDT, Height, 63, kg, 07/01/19 19:58:00 EST, Dry Weight Start Date: 03/04/20 Status: Ordered dilTIAZem 240 mg/24 hours oral tablet, extended release 1 tablet = 240 mg, By Mouth, Daily, FURTHER REFILLS BY SUPERINTENDENT CONCRETE MIXING PLANT, # 90 tablet, 0 Refills, Maintenance, 11/27/19 [...] [facility], 155, cm, 05/03/20 18:55:00 [...] 15:30:53 EST, Aerosol, Route to Pharmacy Electronically, [id number]... Start Date: 09/12/18 Stop Date: 02/09/19 Status: [...] Active Bilateral leg pain(Confirmed) Active *BHN/CCA/CC-[facility]- [phone]/Health [facility], active care coordination(Confirmed) Active POTS (postural orthostatic t achycardia syndrome)(Confirmed) Active Medulloblastoma(Confirmed) Active RUQ pain(Confirmed) Active Social History Social History Type Response Smoking Status Never smoker; Tobacc o user in household: No entered on: 04/11/16 Sex
--- OUTSIDE RECORDS SUMMARY | 2024-04-27 10:20 | XMS_ITS | Continuity of Care Document ---
Author Organization [facility] Address [address] [place] [address]- Care Team Providers Care Equipment Planner Name Role Phone Sisi Hernandez MD Primary Care Physician [place] [facility] Date(s): 08/22/23 - 12/20/23 [facility] [address] [place], [place] [address] Attending Physician: Sisi Hernandez MD Allergies, [...] 13:12:00 EDT, Aerosol, Route to Pharmacy Electronically, [id number], [facility], ONLY ALBUTEROL HFA, CANCEL... Start Date: 02/15/22 Stop Date: 02/10/23 Status: Ordered Colace sodium 100 mg oral capsule 100 mg, 1, capsule, By Mouth, 2 times a day, PRN, # 180 capsule, Refills 3, Tot. Refills 3, Maintenance, for constipation, 08/09/23 14:49:00 EST, Route to Pharmacy Electronically, [facility], Partial fill upon patient request [...] 2 Refills, Maintenance, 11/22/23 15:23:00 EDT, Solution, [facility], dose change, 155, cm, 11/22/23 [...] 0 Refills, Maintenance, 02/15/22 13:10:00 EDT, Aerosol, [facility], new dosage, 155, cm, 12/08/21 [...] 07/31/22 11:03:00 EST, Route to Pharmacy Electronically, [facility], Partial fill upon patient request if the prescription is for a schedule... Start Date: 07/31/22 Status: Ordered ketoconazole 1% topical shampoo See Instructions, Apply 5 to 10 mL to wet scalp, lather, leave on 3 to 5 minutes, and rinse; apply twice weekly for 2 to 4 weeks., # 200 mL, 5 Refills, Maintenance, 11/22/23 15:46:00 EDT, [facility], Partial fill upon patient request if... Start Date: 11/22/23 Status: Ordered ketoconazole 2% topical shampoo 1 application, Topically, Once, Apply 5 to 10 mL to wet scalp, lather, leave on 3 to 5 minutes, andrinse; apply weekly for 2 to 4 weeks., # 120 mL, 4 Refills, Soft Stop, 11/25/23 12:40:00 EDT, Shampoo, [facility], Partial fill upon pat... Start Date: 11/25/23 Status: Ordered LORazepam 0.5 mg oral tablet See Instructions, TAKE 1 TABLET BY MOUTH TWO TIMES A DAY NEEDED FOR ANXIETY, # 28 tablet, 2 Refills, Maintenance, 12/05/22 12:25:00 EDT, [facility], 155, cm, 12/05/22 11:40:00 [...] Tablet, [facility] 3, Partial fill upon patient request if the prescription is for a schedule II opioid drug., 155, cm,... Start Date: 08/01/22 Status: Ordered Symbicort 160mcg/4.5mcg Inhaler 2, puffs, Inhalation, 2 times a day, # 3 each, Refills 5, Tot. Refills 5, Maintenance, 09/27/22 12:00:00 EST, Aerosol, Route to Pharmacy Electronically, [id number], [facility], replaces flovent inhaler, 155, cm,... [...] 07/31/22 11:03:00 EST, Route to Pharmacy Electronically, [facility], Partial fill upon patient request [...] Refills, Maintenance, 08/14/23 13:38:00 EST, Chew Tablet, [facility], Partial fill upon patient request if the prescription is for a schedule II opioid drug., 155, cm, 08/14/23 13:0... Start Date: 08/14/23 Status: Ordered Vitamin D3 50,000 intl units oral capsule 1 capsule = 1,250 mcg, By Mouth, Every week, # 13 capsule, 1 Refills, Maintenance, 05/17/23 17:07:00 EDT, Capsule, [facility], Partial fill upon patient request [...] 0 Refills, Maintenance, 11/01/23 14:07:00 EDT, Capsule, [facility], Partial fill u... Start Date: [...] Confirmed 01/23/16 Active Memory change Confirmed Active *N/CCA/CC-[facility]- [phone]/Health group home, active care coordination Confirmed Active POTS (postural orthostatic tachycardia syndrome) Confirmed Active 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 Social History Social History Type Response Smoking Status Never smoker; Tobacc o user in household: No entered on: 04/11/16 Sex Patient Care team information Care Team Personnel Name: Vidhay Grace RN Position: [facility] RN Member Role: Primary Care Nurse Name: Sisi Hernandez MD Position: [facility] Physician - Primary Care Member Role: PCP Address: Address: [address] [place] [id number] Name: Lizzette To RN Position: [facility] RN Member Role: Primary Care Nurse Name: Karolina Adkins MD Position: [facility] Physician - Primary Care Member Role: Lifetime Consulting Physician Address: Address: [address] [place] [address] [facility] [place] [address]- Name: Isadora Godfrey RN Position: [facility] RN Member Role: Primary Care Nurse Name: Rossy Rowe RN Position: [facility] SN RN Member Role: Primary Care Nurse Name: Cindi Hayward RN Position: [facility] RN Member Role: Primary Care Nurse Name: Bela Mcmahon RN Position: [facility] Hospital Rifle Case Repairer Member Role: Primary Care Nurse Name: [...] Related Persons Name: JOHNNY BEAR Address: home [address] [place] [address] Name: BEAR TURNER SECONDARY Address: home [address] [place] [address] Name: ISATU ECKERT Address: [place] [address] Name: ISAAC VERDE PRIMARY Address: home [address] [place] [address] Name: ADRY DURANT Name: PANCHO JEROME Address: [place] [address]
--- OUTSIDE RECORDS SUMMARY | 2024-04-27 10:21 | XMS_ITS | Continuity of Care Document ---
Author Organization [facility] Address [address] [place] [address]- Care Team Providers Care Assembler Flexible Leads Name Role Phone Sisi Hernandez MD Primary Care Physician [phone] Encounter [facility] Date(s): 07/11/22 - 08/10/22 [facility] [address] [place], [place] [address] Allergies, Adverse Reactions, Alerts Substance Reaction Severity [...] 13:12:00 EDT, Aerosol, Route to Pharmacy Electronically, [id number], [facility], ONLY ALBUTEROL HFA, CANCEL... Start Date: 02/15/22 Stop Date: 02/10/23 Status: Ordered Colace sodium 100 mg oral capsule 100 mg, 1, capsule, By Mouth, 2 times a day, PRN, # 30 capsule, Refills 0, Tot. Refills 0, Maintenance, for constipation, 07/31/22 11:03:00 EST, Route to Pharmacy Electronically, [facility], Partial fill [...] 6 Refills, Maintenance, 06/06/22 12:08:00 EST, Solution, [facility], 155, cm, 04/06/22 14:56:00 EDT, [...] 0 Refills, Maintenance, 02/15/22 13:10:00 EDT, Aerosol, [facility], new dosage, 155, cm, 12/08/21 [...] 11:03:00 EST, Route to Pharmacy Electronically, [facility], Partial fill upon patient request if the prescription is for a schedule... Start Date: 07/31/22 Status: Ordered LORazepam 0.5 mg oral tablet See Instructions, TAKE 1 TABLET BY MOUTH TWO TIMES A DAY NEEDED FOR ANXIETY, # 28 tablet, 2 Refills, Maintenance, 06/06/22 10:45:00 EST, [facility] 3, 155, cm, 04/06/22 14:56:00 EDT, Height, 67.5, kg, 04/06/22 14:56:00 EDT, Dry Weight Start Date: 06/06/22 Status: Ordered Metoprolol Tartrate 50 mg oral tablet 0 Refills, Maintenance, 03/04/20 9:58:00 EDT Start Date: 03/04/20 Status: Ordered MiraLax oral powder for reconstitution = 17 Gm, By Mouth, Daily, dissolve in water before taking, # 255 Gm, 0 Refills, Maintenance, 08/01/22 6:06:00 EST, REC Powder, [facility] 3, Partial fill [...] By Mouth, Every 6 hours, PRN, # 8 tablet, Refills 0, Tot. Refills 0, Acute 08/11/22 15:47:00 EST, as needed for pain, 08/08/22 15:47:00 EST, Route to Pharmacy Electronically, [facility] 3, Partial fill upon patient request... Start Date: 08/08/22 Stop Date: 08/11/22 Status: Ordered senna - oral tablet 2 tablet, By Mouth, Daily at bedtime, PRN for constipation, # 80 tablet, 0 Refills, Maintenance, 08/01/22 6:06:00 EST, Tablet, [facility] 3, Partial fill upon patient request if the prescription is for a schedule II opioid drug., 155, cm,... Start Date: 08/01/22 Status: Ordered simethicone 80 mg oral tablet, chewable 80 mg, 1, tablet, Chew, 4 times a day, # 12 tablet, Refills 0, Tot. Refills 0, Maintenance, 07/31/22 11:03:00 EST, Route to Pharmacy Electronically, [facility], Partial fill [...] 11:03:00 EST, Route to Pharmacy Electronically, [facility], Partial fill [...] 3 Refills, Maintenance, 06/05/22 14:27:00 EST, Capsule, [facility] 3, Partial fill upon patient request [...] Bilateral leg pain Confirmed Active *BHN/CCA/CC-[facility]- [phone]/Health [facility], active care coordination Confirmed Active POTS [...] Name: Sisi Hernandez MD Position: [facility] Primary Care Physician Member Role: PCP Address: Address: [address] [place] [address] [facility] Name: Lizzette To RN Position: [facility] RN Member Role: Primary Care Nurse Name: Karolina Adkins MD Position: [facility] Physician -Physician Practices Member Role: Lifetime Consulting Physician Address: Address: [address] [place] [address] [facility] [place], [place] [facility] Name: Isadora Godfrey RN Position: [facility] RN Member Role: Primary Care Nurse Name: Rossy Rowe RN Position: [facility] SN RN Member Role: Primary Care Nurse Name: Cindi Hayward Position: [facility] RN Member Role: Primary Care Nurse Name: Bela Mcmahon RN Position: [facility] RN Member Role: Primary Care Nurse Name: Nicole Hernandez RN Position: [facility] RN Member Role: Primary Care Nurse Name: Zac Castillo RN Position: [facility] ED RN W/OE and Tasks Member Role: Primary Care Nurse Name: Jeanne Grande RN Position: [facility] RN Member Role: Primary Care Nurse Care Team Related Persons Name: JOHNNY BEAR Address: home [address], [place] Name: JOHNNY BEAR SECONDARY Address: home [address], [place] Name: ISATU ECKERT Address: [place] [address] Name: ISAAC VERDE PRIMARY Address: home [address] [place] [address] Name: ADRY DURANT Name: PANCHO JEROME Address: [place] [address]
--- OUTSIDE RECORDS SUMMARY | 2024-04-27 10:21 | XMS_ITS | Continuity of Care Document ---
Author Organization [facility] Address [address] [place] [address]- Care Team Providers Care Brimmer Blocker Name Role Phone Mary KEATING, Sisi Almanza Primary Care Physician Encounter [facility] Date(s): 07/31/21 - 08/30/21 [facility] [address] [place], [place] [address] Allergies, Adverse Reactions, Alerts Substance Reaction Severity [...] 0 Refills, Maintenance, 08/24/21 13:15:00 EST, Tablet, [facility] Start Date: 08/24/21 Status: Ordered Adderall XR 15 mg oral capsule, extended release 1 capsule = 15 mg, By Mouth, 2 times a day, Change from 10 mg XR and increase to 2 times per day. To take with short acting 5 mg, # 60 capsule, 0 Refills, Maintenance, 08/24/21 13:13:00 EST, ER Capsule, [facility], Partial fill upon leonardo... Start Date: 08/24/21 Status: Ordered albuterol CFC free 90 mcg/inh inhalation aerosol 2, puffs, Inhalation, Every 6 hours, PRN, # 2 each, Refills 11, Tot. Refills 11, Maintenance, 12/02/20 8:50:00 EDT, Aerosol, Route to Pharmacy Electronically, [id number], [facility], 155, cm, 06/03/20 [...] 6 Refills, Maintenance, 06/15/20 11:56:00 EST, Solution, [facility], 155, cm, 06/03/20 13:15:00 EST, Height, 68.5, kg, 06/03/20 13:18:00 EST, Dry Weight Start Date: 06/15/20 Status: Ordered Diflucan 150 mg oral tablet 1 tablet = 150 mg, By Mouth, Every 48 hours, # 2 tablet, 0 Refills, Soft Stop, 07/31/21 10:46:00 EST, Tablet, [facility], Partial fill upon patient request if the prescription is for a schedule II opioid drug., 155, cm, 06/09/21 14:21:00... Start Date: 07/31/21 Status: Ordered dilTIAZem 240 mg/24 hours oral tablet, extended release 1 tablet = 240 mg, By Mouth, Daily, FURTHER REFILLS BY SENIOR PHP SOFTWARE DEVELOPER, # 90 tablet, 0 Refills, Maintenance, 11/27/19 8:57:00 EDT, ER Tablet, [facility], 155, cm, 10/07/19 12:25:00 [...] tablet, 2 Refills, Maintenance, 05/06/20 15:17:00 EDT, [facility], 155, cm, 05/03/20 [...] 15:30:53 EST, Aerosol, Route to Pharmacy Electronically, [id number]... Start Date: 09/12/18 Stop Date: 02/09/19 Status: Ordered ProAir HFA 90 mcg/inh inhalation aerosol with adapter 2, puffs, Inhalation, Every 4 hours, PRN, use with spacer chamber BRAND NAME MEDICALLY NECESSARY, #8.5 Gm, Refills 0, Tot. Refills 0, Maintenance, 12/05/20 15:38:00 EDT, Aerosol, Route to Pharmacy Electronically, [id number]... Start Date: 12/05/20 Status: Ordered Sunosi 75 [...] 2 Refills, Maintenance, 08/04/20 12:39:00 EST, Capsule, [facility] [...] Active Bilateral leg pain(Confirmed) Active *BHN/CCA/[facility]- [phone]/Health [facility], active care coordination(Confirmed) Active POTS (postural orthostatic t achycardia syndrome)(Confirmed) Active Medulloblastoma(Confirmed) Active RUQ pain(Confirmed) Active Viral URI(Confirmed) Active Social History Social History Type Response Smoking Status Never smoker; Tobacc o user in household: No entered on: 04/11/16 Sex Female
--- OUTSIDE RECORDS SUMMARY | 2024-04-27 10:21 | XMS_ITS | Continuity of Care Document ---
Author Organization [facility] Address [address] [facility] [address], [address], [address] [place] [address]- Care Team Providers Care Timber Trimmer Name Role Phone Sisi Hernandez MD Primary Care Physician En[place] [facility] Date(s): 01/26/21 - 02/25/21 [facility] [address] [facility], [address], [address] [place] [id number] Allergies, Adverse [...] 8:50:00 EDT, Aerosol, Route to Pharmacy Electronically, [id number], [facility], 155, cm, 06/03/20 13:15:00 E... [...] 6 Refills, Maintenance, 06/15/20 11:56:00 EST, Solution, [facility] 3, 155, cm, 06/03/20 13:15:00 EST, Height, 68.5, kg, 06/03/20 13:18:00 EST, Dry Weight Start Date: 06/15/20 Status: Ordered dilTIAZem 240 mg/24 hours oral tablet, extended release 1 tablet = 240 mg, By Mouth, Daily, FURTHER REFILLS BY TRANSPORTATION DESIGN ENGINEER, # 90 tablet, 0 Refills, Maintenance, 11/27/19 8:57:00 EDT, ER Tablet, [facility] 3, 155, cm, 10/07/19 12:25:00 EDT, [...] 2 Refills, Maintenance, 05/06/20 15:17:00 EDT, [facility], 155, cm, 05/03/20 [...] 15:30:53 EST, Aerosol, Route to Pharmacy Electronically, [id number]... Start Date: 09/12/18 Stop Date: 02/09/19 Status: Ordered ProAir HFA 90 mcg/inh inhalation aerosol with adapter 2, puffs, Inhalation, Every 4 hours, PRN, use with spacer chamber BRAND NAME MEDICALLY NECESSARY, #8.5 Gm, Refills 0, Tot. Refills 0, Maintenance, 12/05/20 15:38:00 EDT, Aerosol, Route to Pharmacy Electronically, [id number]... Start Date: 12/05/20 Status: Ordered ramelteon 8 mg oral tablet 1 tablet = 8 mg, By Mouth, Daily at bedtime, # 30 tablet, 11 Refills, Maintenance, 12/02/20 8:48:00EDT, [facility], Partial fill upon [...] Refills, Maintenance, 08/04/20 12:39:00 EST, Capsule, [facility], Partial fill upon [...] Active Bilateral leg pain(Confirmed) Active *BHN/CCA/[facility]- [phone]/Health group home, active care coordination(Confirmed) Active POTS (postural orthostatic t achycardia syndrome)(Confirmed) Active Medulloblastoma(Confirmed) Active RUQ pain(Confirmed) Active Viral URI(Confirmed) Active Social History Social History Type Response Smoking Status Never smoker; Tobacc o user in household: No entered on: 04/11/16 Sex
--- OUTSIDE RECORDS SUMMARY | 2024-04-27 10:21 | XMS_ITS | Continuity of Care Document ---
Author Organization [facility] Address [address] [place] [address]- Care Team Providers Care Radio Aerial Installer Name Role Phone Sisi Hernandez MD Primary Care Physician Encounter [facility] [id number] Date(s): 09/29/20 - 12/01/20 [facility] [address] [place], [place] [address] Attending Physician: Not on Staff, [...] 8:59:00 EDT, Aerosol, Route to Pharmacy Electronically, [id number], [facility], 155, cm, [...] 6 Refills, Maintenance, 06/15/20 11:56:00 EST, Solution, [facility] 3, 155, cm, 06/03/20 13:15:00 EST, Height, 68.5, kg, 06/03/20 13:18:00 EST, Dry Weight Start Date: 06/15/20 Status: Ordered dilTIAZem 240 mg/24 hours oral tablet, extended release 1 tablet = 240 mg, By Mouth, Daily, FURTHER REFILLS BY BENEFIT SPECIALIST, # 90 tablet, 0 Refills, Maintenance, 11/27/19 8:57:00 EDT, ER Tablet, [facility], 155, cm, 10/07/19 12:25:00 [...] tablet, 2 Refills, Maintenance, 05/06/20 15:17:00 EDT, [facility] 3, 155, cm, 05/03/20 18:55:00 EDT, Height, [...] 15:30:53 EST, Aerosol, Route to Pharmacy Electronically, [id number]... Start Date: 09/12/18 Stop Date: 02/09/19 Status: [...] 2 Refills, Maintenance, 08/04/20 12:39:00 EST, Capsule, [facility], Partial fill [...] Active Bilateral leg pain(Confirmed) Active *BHN/CCA/CC-[facility]- [phone]/Health detention, active care coordination(Confirmed) Active POTS (postural orthostatic t achycardia syndrome)(Confirmed) Active Medulloblastoma(Confirmed) Active RUQ pain(Confirmed) Active Viral URI(Confirmed) Active Social History Social History Type Response Smoking Status Never smoker; Tobacc o user in household: No entered on: 04/11/16 Sex
--- OUTSIDE RECORDS SUMMARY | 2024-04-27 10:21 | XMS_ITS | Continuity of Care Document ---
Author Organization [facility] ter Address [address] [place] [address]- Care Team Providers Care Metals Analyst Name Role Phone Sisi Hernandez MD Primary Care Physician Encounter [facility] [id number] Date(s): 05/03/20 - 05/03/20 [facility] [address] [place] [address]- [facility] Discharge Disposition: A-D/C Walkout Attending [...] 8:59:00 EDT, Aerosol, Route to Pharmacy Electronically, [id number], [facility], 155, cm, 10/07/19 [...] 5 Refills, Maintenance, 03/04/20 9:53:00 EDT, Solution, [facility], 155, cm, 10/07/19 12:25:00 EDT, Height, 63, kg, 07/01/19 19:58:00 EST, Dry Weight Start Date: 03/04/20 Status: Ordered dilTIAZem 240 mg/24 hours oral tablet, extended release 1 tablet = 240 mg, By Mouth, Daily, FURTHER REFILLS BY BODY FORMER, # 90 tablet, 0 Refills, Maintenance, 11/27/19 8:57:00 EDT, ER Tablet, [facility], 155, cm, 10/07/19 12:25:00 EDT, [...] tablet, 2 Refills, Maintenance, 11/02/19 10:43:00 EDT, [facility], 155, cm, 10/07/19 12:25:00 EDT, [...] 15:30:53 EST, Aerosol, Route to Pharmacy Electronically, [id number]... Start Date: 09/12/18 Stop Date: 02/09/19 Status: [...] Active Bilateral leg pain(Confirmed) Active *BHN/CCA/CC-[facility]- [phone]/Health senior care, active care coordination(Confirmed) Active POTS (postural orthostatic t achycardia syndrome)(Confirmed) Active Medulloblastoma(Confirmed) Active RUQ pain(Confirmed) Active Vital Signs Most recent to oldest [Reference Range]: 1 2 Height 155 cm (05/03/20 6:55 PM) Oxygen Saturation [94-100 %] 100 % (05/03/20 6:23 PM) 100 % (05/03/20 6:12 PM) Pulse Rate [55-90 bpm] 59 bpm (05/03/20 6:23 PM) 64 bpm (05/03/20 6:12 PM) Blood Pressure [90-138/55-84 mm Hg] 103/ 49mm Hg (05/03/20 6:23 PM) Respiratory Rate [16-30 br/min] 18 br/mi n (05/03/20 6:23 PM) Temperature [96.8-100.4 DegF] 97.7 DegF (05/03/20 6:23 PM) Mode of Delivery (Oxygen) Room air (05/03/20 6:23 PM) Room air (05/03/20 6:12 PM) Blood pressure sites Arm, left (05/03/20 6:23 PM) Temperature Route Oral (05/03/20 6:23 PM) Social History Social History Type Response Smoking Status Never smoker; Tobacc o user in household: No entered on: 04/11/16 Sex
--- OUTSIDE RECORDS SUMMARY | 2024-04-27 10:21 | XMS_ITS | Continuity of Care Document ---
Author Organization [facility] Address [address] [place] [address]- Care Team Providers Care Hospitality Aide Name Role Phone Sisi Hernandez MD Primary Care Physician [place] [facility](s): 05/21/23 - 06/20/23 [facility] [address] [place], [place] [address] Allergies, Adverse Reactions, Alerts Substance [...] Refills, Maintenance, 12/21/22 14:40:00 EDT, ER Capsule, [facility], Partial fill upon patient request if the prescription is for a schedule II opioid drug., 155, cm, 12/05/22 11:... Start Date: 12/21/22 Status: Ordered albuterol CFC free 90 mcg/inh inhalation aerosol 2, puffs, Inhalation, Every 6 hours, PRN, # 2 each, Refills 11, Tot. Refills 11, Maintenance, 02/15/22 13:12:00 EDT, Aerosol, Route to Pharmacy Electronically, [id number], [facility], ONLY ALBUTEROL HFA, CANCEL... Start Date: 02/15/22 Stop Date: 02/10/23 Status: Ordered Colace sodium 100 mg oral capsule 100 mg, 1, capsule, By Mouth, 2 times a day, PRN, # 30 capsule, Refills 0, Tot. Refills 0, Maintenance, for constipation, 07/31/22 11:03:00 EST, Route to Pharmacy Electronically, [facility], Partial fill upon patient request [...] 6 Refills, Maintenance, 09/04/22 8:50:00 EST, Solution, [facility], 155, cm, 08/14/22 13:52:00 EST, [...] 0 Refills, Maintenance, 02/15/22 13:10:00 EDT, Aerosol, [facility], new dosage, 155, cm, [...] 07/31/22 11:03:00 EST, Route to Pharmacy Electronically, [facility], Partial fill upon patient request if the prescription is for a schedule... Start Date: 07/31/22 Status: Ordered LORazepam 0.5 mg oral tablet See Instructions, TAKE 1 TABLET BY MOUTH TWO TIMES A DAY NEEDED FOR ANXIETY, # 28 tablet, 2 Refills, Maintenance, 12/05/22 12:25:00 EDT, [facility], 155, cm, 12/05/22 [...] 0 Refills, Maintenance, 08/01/22 6:06:00 EST, Tablet, [facility], Partial fill upon patient request if the prescription is for a schedule II opioid drug., 155, cm,... Start Date: 08/01/22 Status: Ordered Symbicort 160mcg/4.5mcg Inhaler 2, puffs, Inhalation, 2 times a day, # 3 each, Refills 5, Tot. Refills 5, Maintenance, 09/27/22 12:00:00 EST, Aerosol, Route to Pharmacy Electronically, [id number], [facility], replaces flovent inhaler, 155, [...] 07/31/22 11:03:00 EST, Route to Pharmacy Electronically, [facility], Partial fill upon patient request if the prescription is... Start Date: 07/31/22 Status: Ordered verapamil 240 mg/12 hours oral tablet, extended release TAKE 1 TABLET BY MOUTH DAILY. Start Date: 02/05/23 Status: Ordered Vitamin D3 50,000 intl units oral capsule 1 capsule = 1,250 mcg, By Mouth, Every week, # 13 capsule, 1 Refills, Maintenance, 05/17/23 17:07:00 EDT, Capsule, [facility], Partial fill upon patient [...] Confirmed Active Bilateral leg pain Confirmed Active *BHN/CCA/CC-[facility]- [phone]/Health skilled nursing, active care coordination Confirmed Active [...] Care Member Role: PCP Address: Address: [address] [place] [address] - Name: Lizzette To RN Position: [facility] SN RN Member Role: Primary Care Nurse Name: Karolina Adkins MD Position: [facility] Physician - Primary Care Member Role: Lifetime Consulting Physician Address: Address: [address] [place] [address] [facility] [place] - Name: Isadora Godfrey RN Position: [facility] RN Member Role: Primary Care Nurse Name: Rossy Rowe RN Position: [facility] SN RN Member Role: Primary Care Nurse Name: Cindi Hayward RN Position: [facility] RN Member Role: Primary Care Nurse Name: Bela Mcmahon RN Position: [facility] Medical Surgical Tech Member Role: Primary Care Nurse Name: Nicole Hernandez RN Position: [facility] RN Member Role: Primary Care Nurse Name: Zac Castillo RN Position: [facility] ED RN W/OE and Tasks Member Role: Primary Care Nurse Name: Jeanne Grande RN Position: [facility] RN Member Role: Primary Care Nurse Care Team Related Persons Name: KATHRYN TURNERY Address: home [address] [place] [address] Name: BEAR TURNER SECONDARY Address: home [address] [place] [address] Name: ISATU ECKERT Address: [place] [address] Name: ISAAC VERDE PRIMARY Address: home [address] [place] [address] Name: ADRY DURANT Name: PANCHO JEROME Address: [place] [address]
--- OUTSIDE RECORDS SUMMARY | 2024-04-27 10:21 | XMS_ITS | Continuity of Care Document ---
Author Organization [facility] Address [address] [place] [address]- Care Team Providers Care Insurance Underwriting Assistant Name Role Phone Sisi Hernandez MD Primary Care Physician Encounter [facility] [place] Date(s): 11/22/23 - 01/05/24 [facility] [address] [place], [place] [address] Attending Physician: Sisi Hernandez MD Allergies, [...] 13:12:00 EDT, Aerosol, Route to Pharmacy Electronically, [id number], [facility], ONLY ALBUTEROL HFA, CANCEL... Start Date: 02/15/22 Stop Date: 02/10/23 Status: Ordered Colace sodium 100 mg oral capsule 100 mg, 1, capsule, By Mouth, 2 times a day, PRN, # 180 capsule, Refills 3, Tot. Refills 3, Maintenance, for constipation, 08/09/23 14:49:00 EST, Route to Pharmacy Electronically, [facility] [...] 2 Refills, Maintenance, 11/22/23 15:23:00 EDT, Solution, [facility], dose change, 155, cm, [...] 02/15/22 13:10:00 EDT, Aerosol, [facility], new dosage, 155, cm, [...] 07/31/22 11:03:00 EST, Route to Pharmacy Electronically, [facility] 3, Partial fill upon patient request if the prescription is for a schedule... Start Date: 07/31/22 Status: Ordered ketoconazole 1% topical shampoo See Instructions, Apply 5 to 10 mL to wet scalp, lather, leave on 3 to 5 minutes, and rinse; apply twice weekly for 2 to 4 weeks., # 200 mL, 5 Refills, Maintenance, 11/22/23 15:46:00 EDT, [facility], Partial fill upon patient request if... Start Date: 11/22/23 Status: Ordered ketoconazole 2% topical shampoo 1 application, Topically, Once, Apply 5 to 10 mL to wet scalp, lather, leave on 3 to 5 minutes, andrinse; apply weekly for 2 to 4 weeks., # 120 mL, 4 Refills, Soft Stop, 11/25/23 12:40:00 EDT, Shampoo, [facility], Partial fill upon pat... Start Date: 11/25/23 Status: Ordered LORazepam 0.5 mg oral tablet See Instructions, TAKE 1 TABLET BY MOUTH TWO TIMES A DAY NEEDED FOR ANXIETY, # 28 tablet, 2 Refills, Maintenance, 12/05/22 12:25:00 EDT, [facility], 155, cm, 12/05/22 [...] 0 Refills, Maintenance, 08/01/22 6:06:00 EST, Tablet, [facility] [employer] 3, Partial fill upon patient request if the prescription is for a schedule II opioid drug., 155, cm,... Start Date: 08/01/22 Status: Ordered Symbicort 160mcg/4.5mcg Inhaler 2, puffs, Inhalation, 2 times a day, # 3 each, Refills 5, Tot. Refills 5, Maintenance, 09/27/22 12:00:00 EST, Aerosol, Route to Pharmacy Electronically, [id number], [facility], replaces flovent inhaler, 155, [...] 11:03:00 EST, Route to Pharmacy Electronically, [facility], Partial fill upon [...] Refills, Maintenance, 08/14/23 13:38:00 EST, Chew Tablet, [facility], Partial fill upon patient request if the prescription is for a schedule II opioid drug., 155, cm, 08/14/23 13:0... Start Date: 08/14/23 Status: Ordered Vitamin D3 50,000 intl units oral capsule 1 capsule = 1,250 mcg, By Mouth, Every week, # 13 capsule, 1 Refills, Maintenance, 05/17/23 17:07:00 EDT, Capsule, [facility], Partial [...] 0 Refills, Maintenance, 11/01/23 14:07:00 EDT, Capsule, [facility], Partial fill u... 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 Social History Social History Type Response Smoking Status Never smoker; Tobacc o user in household: No entered on: 04/11/16 Sex Patient Care team information Care Team Personnel Name: Vidhya Grace RN Position: [facility] RN Member Role: Primary Care Nurse Name: Sisi Hernandez MD Position: [facility] Physician - Primary Care Member Role: PCP Address: Address: [address] [place] [id number] Name: Lizzette To RN Position: [facility] RN Member Role: Primary Care Nurse Name: Karolina Adkins MD Position: [facility] Physician - Primary Care Member Role: Lifetime Consulting Physician Address: Address: [address] [place] [address] Geriatric [facility] [place] [address]- Name: Isadora Godfrey RN Position: [facility] RN Member Role: Primary Care Nurse Name: Rossy Rowe RN Position: [facility] SN RN Member Role: Primary Care Nurse Name: Cindi Hayward RN Position: [facility] RN Member Role: Primary Care Nurse Name: Bela Mcmahon RN Position: [facility] Hospital Nail Making Machine Tender Member Role: Primary Care Nurse Name: Nicole Hernandez RN Position: [facility] RN Member Role: Primary Care Nurse Name: Zac Castillo RN Position: [facility] ED RN W/OE and Tasks Member Role: Primary Care Nurse Name: Jeanne Grande RN Position: [facility] RN Member Role: Primary Care Nurse Care Team Related Persons Name: JOHNNY BEAR Address: home [address] [place] [address] Name: BEAR TURNER SECONDARY Address: home [address] [place] [address] Name: ISATU ECKERT Address: [place] [address] Name: ISAAC VERDE PRIMARY Address: home [address] [place] [address] Name: ADRY DURANT Name: PANCHO JEROME Address: [place] [address]
--- OUTSIDE RECORDS SUMMARY | 2024-04-27 10:21 | XMS_ITS | Continuity of Care Document ---
Author Organization [facility] Address [address] [place] [address]- Care Team Providers Care Skoog Patching Machine Operator Name Role Phone Sisi Hernandez MD Primary Care Physician [phone] Encounter [facility] [place] Date(s): 12/25/23 - 02/08/24 [facility] [address] [place], [place] [address] Attending Physician: Sisi Hernandez MD [...] 13:12:00 EDT, Aerosol, Route to Pharmacy Electronically, [id number], [facility], ONLY ALBUTEROL HFA, CANCEL... Start Date: 02/15/22 Stop Date: 02/10/23 Status: Ordered Colace sodium 100 mg oral capsule 100 mg, 1, capsule, By Mouth, 2 times a day, PRN, # 180 capsule, Refills 3, Tot. Refills 3, Maintenance, for constipation, 08/09/23 14:49:00 EST, Route to Pharmacy Electronically, [facility], Partial fill upon patient [...] 11 Refills, Maintenance, 02/06/24 12:13:00 EDT, Solution, [facility], dose change, 155, cm, [...] 11:03:00 EST, Route to Pharmacy Electronically, [facility], Partial fill upon patient request if the prescription is for a schedule... Start Date: 07/31/22 Status: Ordered ketoconazole 1% topical shampoo See Instructions, Apply 5 to 10 mL to wet scalp, lather, leave on 3 to 5 minutes, and rinse; apply twice weekly for 2 to 4 weeks., # 200 mL, 5 Refills, Maintenance, 11/22/23 15:46:00 EDT, [facility], Partial fill upon patient request if... Start Date: 11/22/23 Status: Ordered ketoconazole 2% topical shampoo 1 application, Topically, Once, Apply 5 to 10 mL to wet scalp, lather, leave on 3 to 5 minutes, andrinse; apply weekly for 2 to 4 weeks., # 120 mL, 4 Refills, Soft Stop, 11/25/23 12:40:00 EDT, Shampoo, [facility], Partial fill upon pat... Start Date: 11/25/23 Status: Ordered LORazepam 0.5 mg oral tablet See Instructions, TAKE 1 TABLET BY MOUTH TWO TIMES A DAY NEEDED FOR ANXIETY, # 28 tablet, 2 Refills, Maintenance, 02/06/24 12:19:00 EDT, [facility], 155, cm, 02/06/24 11:49:00 EDT, Height, [...] 12:14:00 EDT, Aerosol, Route to Pharmacy Electronically, [id number], [facility], replaces flovent inhaler, 155, [...] 07/31/22 11:03:00 EST, Route to Pharmacy Electronically, [facility], Partial fill upon patient request [...] Refills, Maintenance, 08/14/23 13:38:00 EST, Chew Tablet, [facility] 3, Partial fill upon patient request if the prescription is for a schedule II opioid drug., 155, cm, 08/14/23 13:0... Start Date: 08/14/23 Status: Ordered Vitamin D3 50,000 intl units oral capsule 1 capsule = 1,250 mcg, By Mouth, Every week, # 13 capsule, 1 Refills, Maintenance, 05/17/23 17:07:00 EDT, Capsule, [facility], Partial fill upon patient [...] 0 Refills, Maintenance, 11/01/23 14:07:00 EDT, Capsule, [facility], Partial fill u... Start [...] 01/23/16 Active Memory change Confirmed Active *BHN/CCA/CC-[facility]- [phone]/Health snf, active care coordination Confirmed Active POTS [...] Care Member Role: PCP Address: Address: [address] [place] [id number] Name: Lizzette To RN Position: [facility] RN Member Role: Primary Care Nurse Name: Karolina Adkins MD Position: [facility] Physician - Primary Care Member Role: Lifetime Consulting Physician Address: Address: [address] [place] [address] [facility] [place], [place] [address] Name: Isadora Godfrey RN Position: [facility] RN Member Role: Primary Care Nurse Name: Rossy Rowe RN Position: [facility] SN RN Member Role: Primary Care Nurse Name: Cindi Hayward RN Position: [facility] RN Member Role: Primary Care Nurse Name: Bela Mcmahon RN Position: [facility] Hospital Drafting Clerk Member Role: Primary Care Nurse Name: Nicole Hernandez RN Position: [facility] RN Member Role: Primary Care Nurse Name: Zac Castillo RN Position: [facility] ED RN W/OE and Tasks Member Role: Primary Care Nurse Name: Jeanne Grande RN Position: [facility] RN Member Role: Primary Care Nurse Care Team Related Persons Name: BEAR TURNER Address: home [address] [place] [address] Name: BEAR TURNER SECONDARY Address: [address] [address] Name: ISATU ECKERT Address: [place] [address] Name: ISAAC VERDE PRIMARY Address: home [address] [place] [address] Name: ADRY DURANT Name: PANCHO JEROME Address: [place] [address]
--- OUTSIDE RECORDS SUMMARY | 2024-04-27 10:21 | XMS_ITS | Continuity of Care Document ---
Author Organization [facility] Address [address] [facility], [address] Floor, [address] [place] [address]- Care Team Providers Care School Based Therapist Name Role Phone Sisi Hernandez MD Primary Care Physician [place] [facility] [place]/07/22 - 04/06/22 [facility] [address], [address], [address] [place] [address] [place] Allergies, Adverse Reactions, Alerts Substance Reaction [...] 23:51:00 EDT, Route to Pharmacy Electronically, [facility], Partial fill upon patient request if the presc... Start Date: 11/16/21 Status: Ordered albuterol CFC free 90 mcg/inh inhalation aerosol 2, puffs, Inhalation, Every 6 hours, PRN, # 2 each, Refills 11, Tot. Refills 11, Maintenance, 02/15/22 13:12:00 EDT, Aerosol, Route to Pharmacy Electronically, [id number], [facility], ONLY ALBUTEROL [...] Maintenance, 06/15/20 11:56:00 EST, Solution, [facility] 3, 155, cm, 06/03/20 13:15:00 EST, Height, 68.5, kg, 06/03/20 13:18:00 EST, Dry Weight Start Date: 06/15/20 Status: Ordered dilTIAZem 240 mg/24 hours oral tablet, extended release 1 tablet = 240 mg, By Mouth, Daily, FURTHER REFILLS BY LIQUOR GALLERY OPERATOR, # 90 tablet, 0 Refills, Maintenance, 11/27/19 8:57:00 EDT, ER Tablet, [facility] 3, 155, cm, 10/07/19 12:25:00 [...] 23:51:00 EDT, Route to Pharmacy Electronically, [facility], Partial fill upon patient request if the prescription is... Start Date: 11/16/21 Status: Ordered LORazepam 0.5 mg oral tablet See Instructions, TAKE 1 TABLET BY MOUTH TWO TIMES A DAY NEEDED FOR ANXIETY, # 28 tablet, 2 Refills, Maintenance, 05/06/20 15:17:00 EDT, [facility], 155, [...] Refills, Maintenance, 11/16/21 23:51:00 EDT, DIS Tablet, [facility], Partial fill upon patient request if the prescription is for a schedule II o... Start Date: 11/16/21 Status: Ordered Peridex 0.12% liquid 15 mL = 0.018 Gm, By Mouth, 2 times a day, # 420 mL, 0 Refills, Maintenance, 01/18/22 8:47:00 EDT, Liquid, [facility] 3, Partial fill upon patient request [...] Refills, Maintenance, 10/25/21 11:13:00 EDT, Capsule, [facility], Partial fill [...] Active Bilateral leg pain(Confirmed) Active *BHN/CCA/CC-[facility]- [phone]/Health intermediate, active care coordination(Confirmed) Active POTS (postural orthostatic t achycardia syndrome)(Confirmed) Active Medulloblastoma(Confirmed) Active RUQ pain(Confirmed) Active Social History Social History Type Response Smoking Status Never smoker; Tobacc o user in household: No entered on: 04/11/16 Sex Female Care Team Personnel Name: Sisi Hernandez MD Address: [address] [place] [address]
--- OUTSIDE RECORDS SUMMARY | 2024-04-27 10:21 | XMS_ITS | Continuity of Care Document ---
Author Organization [facility] De La [facility] Address [address], 4t [place] [address]- Care Team Providers Care Risk Mgr Name Role Phone Sisi Hernandez MD Primary Care Physician Encounter [facility] Date(s): 12/05/22 - 01/04/23 [facility] [address], 4th [address] [place], [place] [address] Allergies, Adverse Reactions, [...] Refills, Maintenance, 12/21/22 14:40:00 EDT, ER Capsule, [facility], Partial fill upon patient request if the prescription is for a schedule II opioid drug., 155, cm, 12/05/22 11:... Start Date: 12/21/22 Status: Ordered albuterol CFC free 90 mcg/inh inhalation aerosol 2, puffs, Inhalation, Every 6 hours, PRN, # 2 each, Refills 11, Tot. Refills 11, Maintenance, 02/15/22 13:12:00 EDT, Aerosol, Route to Pharmacy Electronically, [id number], [facility], ONLY ALBUTEROL HFA, CANCEL... Start Date: 02/15/22 Stop Date: 02/10/23 Status: Ordered Colace sodium 100 mg oral capsule 100 mg, 1, capsule, By Mouth, 2 times a day, PRN, # 30 capsule, Refills 0, Tot. Refills 0, Maintenance, for constipation, 07/31/22 11:03:00 EST, Route to Pharmacy Electronically, [facility], Partial fill upon patient request if [...] 6 Refills, Maintenance, 09/04/22 8:50:00 EST, Solution, [facility], 155, cm, 08/14/22 13:52:00 EST, Height, 68.1, kg, 08/14/22 13:52:00 EST, Dry Weight Start Date: 09/04/22 Status: Ordered esomeprazole 40 mg oral enteric coated capsule TAKE 1 CAPSULE BY MOUTH EVERY DAY Start Date: 07/12/22 Status: Ordered Flovent HFA 220 mcg/inh inhalation aerosol 2 puffs, Inhalation, 2 times a day, new dosage, # 12 Gm, 0 Refills, Maintenance, 02/15/22 13:10:00 EDT, Aerosol, [facility], new dosage, 155, [...] 07/31/22 11:03:00 EST, Route to Pharmacy Electronically, [facility], Partial fill upon patient request if the prescription is for a schedule... Start Date: 07/31/22 Status: Ordered LORazepam 0.5 mg oral tablet See Instructions, TAKE 1 TABLET BY MOUTH TWO TIMES A DAY NEEDED FOR ANXIETY, # 28 tablet, 2 Refills, Maintenance, 12/05/22 12:25:00 EDT, [facility] 3, 155, cm, 12/05/22 11:40:00 EDT, [...] Refills, Maintenance, 08/01/22 6:06:00 EST, REC Powder, [facility] 3, Partial [...] Refills, Maintenance, 08/01/22 6:06:00 EST, Tablet, [facility] 3, Partial fill upon patient request if the prescription is for a schedule II opioid drug., 155, cm,... Start Date: 08/01/22 Status: Ordered Symbicort 160mcg/4.5mcg Inhaler 2, puffs, Inhalation, 2 times a day, # 3 each, Refills 5, Tot. Refills 5, Maintenance, 09/27/22 12:00:00 EST, Aerosol, Route to Pharmacy Electronically, [id number], [facility], replaces flovent inhaler, 155, cm,... [...] 3 Refills, Maintenance, 06/05/22 14:27:00 EST, Capsule, [facility], Partial fill upon patient request [...] Bilateral leg pain Confirmed Active *BHN/CCA/CC-Matias Vela- [phone]/Health [facility], active care coordination Confirmed Active POTS (postural orthostatic tachycardia syndrome) Confirmed Active Medulloblastoma Confirmed Active RUQ pain Confirmed Active Tachy-sharmin syndrome Confirmed Active Social History Social History Type Response Smoking Status Never smoker; Tobacc o user in household: No entered on: 04/11/16 Sex Patient Care team information Care Team Personnel Name: Vidhya Grace RN Position: [facility] RN Member Role: Primary Care Nurse Name: Mary KEATING, Sisi Almanza Position: [facility] Physician - Primary Care Member Role: PCP Address: Address: [address] [place] [address] [facility] Name: Lizzette To RN Position: [facility] RN Member Role: Primary Care Nurse Name: Karolina Adkins MD Position: [facility] Physician - Primary Care Member Role: Lifetime Consulting Physician Address: Address: [address] [place] [address] [facility] [place] [facility] Name: Rossy Rowe RN Position: [facility] SN RN Member Role: Primary Care Nurse Name: Cindi Hayward Position: [facility] RN Member Role: Primary Care Nurse Name: Bela Mcmahon RN Position: [facility] Machine Maintenance Mechanic Member Role: Primary Care Nurse Name: Nicole Hernandez RN Position: [facility] RN Member Role: Primary Care Nurse Name: Zac Castillo RN Position: [facility] ED RN W/OE and Tasks Member Role: Primary Care Nurse Name: Jeanne Grande RN Position: [facility] RN Member Role: Primary Care Nurse Care Team Related Persons Name: KATHRYN TURNERY Address: home [address] [place], [place] Name: TURNERBEAR RIBERA SECONDARY Address: home [address] [place], [place] Name: ISATU ECKERT Address: home [place], [place] Name: ISAAC VERDE PRIMARY Address: home [address] [place] [address] Name: ADRY DURANT Name: PANCHO JEROME Address: home [place], [place]
--- OUTSIDE RECORDS SUMMARY | 2024-04-27 10:21 | XMS_ITS | Continuity of Care Document ---
Author Organization [facility] Address [address] [place] [address]- Care Team Providers Care Oakes Machine Operator Name Role Phone Sisi Hernandez MD Primary [id number]12[facility] - 07/12/22 [facility] [address] [place], [place] [address] Attending Physician: Not on Staff, Attending MD [...] 11/16/21 23:51:00 EDT, Route to Pharmacy Electronically, [facility], Partial fill upon [...] 13:12:00 EDT, Aerosol, Route to Pharmacy Electronically, [id number], [facility], ONLY ALBUTEROL HFA, [...] 6 Refills, Maintenance, 10/03/21 12:18:00 EST, Solution, [facility], 155, cm, 09/27/21 15:08:00 EST, Height, 68.5, kg, 06/03/20 13:18:00 EST, Dry Weight Start Date: 10/03/21 Status: Ordered cyanocobalamin 1000 mcg/ml injectable solution 1 mL = 1,000 mcg, Intramuscular, Every 30 days, # 3 mL, 6 Refills, Maintenance, 06/06/22 12:08:00 EST, Solution, [facility], 155, cm, 04/06/22 14:56:00 EDT, Height, 67.5, kg, 04/06/22 14:56:00 EDT, Dry Weight Start Date: 06/06/22 Status: Ordered dilTIAZem 240 mg/24 hours oral tablet, extended release 1 tablet = 240 mg, By Mouth, Daily, FURTHER REFILLS BY SALES DIRECTOR, # 90 tablet, 0 Refills, Maintenance, 11/27/19 8:57:00 EDT, ER Tablet, [facility], 155, cm, 10/07/19 [...] 0 Refills, Maintenance, 02/15/22 13:10:00 EDT, Aerosol, [facility], new dosage, 155, [...] 11/16/21 23:51:00 EDT, Route to Pharmacy Electronically, [facility], Partial fill upon patient request if the prescription is... Start Date: 11/16/21 Status: Ordered LORazepam 0.5 mg oral tablet See Instructions, TAKE 1 TABLET BY MOUTH TWO TIMES A DAY NEEDED FOR ANXIETY, # 28 tablet, 2 Refills, Maintenance, 06/06/22 10:45:00 EST, [facility] 3, 155, cm, 04/06/22 14:56:00 EDT, Height, [...] Refills, Maintenance, 11/16/21 23:51:00 EDT, DIS Tablet, [facility] 3, Partial fill upon patient request if the prescription is for a schedule II o... Start Date: 11/16/21 Status: Ordered Peridex 0.12% liquid 15 mL = 0.018 Gm, By Mouth, 2 times a day, # 420 mL, 0 Refills, Maintenance, 01/18/22 8:47:00 EDT, Liquid, [facility], Partial fill upon patient [...] 3 Refills, Maintenance, 06/05/22 14:27:00 EST, Capsule, [facility], Partial fill upon [...] Bilateral leg pain Confirmed Active *BHN/CCA/CC-Matias Vela- [phone]/Health [facility], active care coordination [...] Physician Member Role: PCP Address: Address: [address] [place] [address]- Name: Lizzette To RN Position: [facility] RN Member Role: Primary Care Nurse Name: Karolina Adkins MD Position: [facility] Physician -Physician Practices Member Role: Lifetime Consulting Physician Address: Address: [address] [place] [address] [facility] [place] [address]- Name: Isadora Godfrey RN Position: [facility] RN Member Role: Primary Care Nurse Name: Rossy Rowe RN Position: [facility] SN RN Member Role: Primary Care Nurse Name: Bela Mcmahon RN Position: [facility] Social Sciences Department Chair Member Role: Primary Care Nurse Name: Nicole Hernandez RN Position: [facility] RN Member Role: Primary Care Nurse Name: Zac Castillo RN Position: [facility] ED RN W/OE and Tasks Member Role: Primary Care Nurse Name: Jeanne Grande RN Position: [facility] RN Member Role: Primary Care Nurse Care Team Related Persons Name: TURNER BEAR Address: home [address] [place] [address] Name: ISATU ECKERT Address: [place] [address] Name: ADRY DURANT Name: PANCHO JEROME Address: [place] [address]
--- OUTSIDE RECORDS SUMMARY | 2024-04-27 10:21 | XMS_ITS | Continuity of Care Document ---
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 Attending Physician: Sisi Hernandez MD Allergies, Adverse [...] 13:12:00 EDT, Aerosol, Route to Pharmacy Electronically, [id number], [facility], ONLY [...] 6 Refills, Maintenance, 08/07/23 13:45:00 EST, Solution, [facility], 155, cm, 06/07/23 20:58:00 [...] Refills, Maintenance, 12/05/22 12:25:00 EDT, [facility], 155, cm, 12/05/22 [...] 12:00:00 EST, Aerosol, Route to Pharmacy Electronically, [id number], [facility], replaces flovent inhaler, 155, cm,... [...] Bilateral leg pain Confirmed Active *BHN/CCA/CC-[facility] Vela- [phone]/[facility], active care coordination Confirmed Active POTS (postural orthostatic tachycardia syndrome) Confirmed Active Medulloblastoma Confirmed Active RUQ pain Confirmed Active Tachy-sharmin syndrome Confirmed Active Diagnosis Diagnosis Type Effective Dates Health Status Clinical Service Informant Medulloblastoma Discharge Diagnosis 10/23/23 Narcolepsy and cataplexy Discharge Diagnosis 10/23/23 Headache Discharge Diagnosis 10/23/23 Social History Social History Type Response Smoking Status Never smoker; Tobacc o user in household: No entered on: 04/11/16 Sex Patient Care team information Care Team Personnel Name: Vidhya Grace RN Position: [facility] RN Member Role: Primary Care Nurse Name: Sisi Hernandez MD Position: [facility] Physician - Primary Care Member Role: PCP Address: Address: [address] [place] [address] Name: Lizzette To RN Position: [facility] RN Member Role: Primary Care Nurse Name: Karolina Adkins MD Position: [facility] Physician - Primary Care Member Role: Lifetime Consulting Physician Address: Address: [address] [place] [address] [facility] [address] Name: Isadora Godfrey RN Position: [facility] RN Member Role: Primary Care Nurse Name: Rossy Rowe RN Position: [facility] SN RN Member Role: Primary Care Nurse Name: Cindi Hayward RN Position: [facility] RN Member Role: Primary Care Nurse Name: Bela Mcmahon RN Position: [facility] Hospital Powerhouse Mechanic Helper Member Role: Primary Care Nurse Name: [...] Persons Name: BEAR TURNER Address: home [address] [place] [address] Name: BEAR TURNER SECONDARY Address: home [address] [place] [address] Name: ISATU ECKERT Address: [place] [address] Name: ISAAC VERDE PRIMARY Address: [address] [address] Name: ADRY DURANT Name: PANCHO JEROME Address: [place] [address]
--- OUTSIDE RECORDS SUMMARY | 2024-04-27 10:21 | XMS_ITS | Continuity of Care Document ---
Author Organization [facility] Address [address] [place] [address]- Care Team Providers Care Quail Farmer Name Role Phone Sisi Hernandez MD Primary Care Physician Encounter [facility] Date(s): 10/17/22 - 12/23/[address] [address] Attending Physician: Nita Castillo MD Admitting Physician: [...] Maintenance, 12/21/22 14:40:00 EDT, ER Capsule, [facility], Partial fill upon patient request if the prescription is for a schedule II opioid drug., 155, cm, 12/05/22 11:... Start Date: 12/21/22 Status: Ordered albuterol CFC free 90 mcg/inh inhalation aerosol 2, puffs, Inhalation, Every 6 hours, PRN, # 2 each, Refills 11, Tot. Refills 11, Maintenance, 02/15/22 13:12:00 EDT, Aerosol, Route to Pharmacy Electronically, [id number], [facility], ONLY ALBUTEROL HFA, CANCEL... Start Date: 02/15/22 Stop Date: 02/10/23 Status: Ordered Colace sodium 100 mg oral capsule 100 mg, 1, capsule, By Mouth, 2 times a day, PRN, # 30 capsule, Refills 0, Tot. Refills 0, Maintenance, for constipation, 07/31/22 11:03:00 EST, Route to Pharmacy Electronically, [facility], Partial fill upon patient request if [...] Refills, Maintenance, 09/04/22 8:50:00 EST, Solution, [facility], 155, cm, 08/14/22 13:52:00 [...] Refills, Maintenance, 02/15/22 13:10:00 EDT, Aerosol, [facility], new dosage, 155, cm, [...] 07/31/22 11:03:00 EST, Route to Pharmacy Electronically, [facility] 3, Partial fill upon patient request if the prescription is for a schedule... Start Date: 07/31/22 Status: Ordered LORazepam 0.5 mg oral tablet See Instructions, TAKE 1 TABLET BY MOUTH TWO TIMES A DAY NEEDED FOR ANXIETY, # 28 tablet, 2 Refills, Maintenance, 12/05/22 12:25:00 EDT, [facility] 3, 155, cm, 12/05/22 11:40:00 EDT, [...] 6:06:00 EST, REC Powder, [facility] 3, Partial fill [...] 08/01/22 6:06:00 EST, Tablet, [facility] 3, Partial fill upon patient request if the prescription is for a schedule II opioid drug., 155, cm,... Start Date: 08/01/22 Status: Ordered Symbicort 160mcg/4.5mcg Inhaler 2, puffs, Inhalation, 2 times a day, # 3 each, Refills 5, Tot. Refills 5, Maintenance, 09/27/22 12:00:00 EST, Aerosol, Route to Pharmacy Electronically, [id number], [facility], replaces flovent inhaler, 155, cm,... Start [...] 11:03:00 EST, Route to Pharmacy Electronically, [facility], Partial fill upon patient request if the prescription is... Start Date: 07/31/22 Status: Ordered verapamil 240 mg/12 hours oral tablet, extended release TAKE 1 TABLET BY MOUTH DAILY. Start Date: 09/27/22 Status: Ordered Vitamin D3 1000 intl units oral capsule 1 capsule = 25 mcg, By Mouth, Daily, # 100 capsule, 3 Refills, Maintenance, 06/05/22 14:27:00 EST, Capsule, [facility], Partial fill upon patient [...] Bilateral leg pain Confirmed Active *BHN/CCA/CC-Matias Vela- [phone]/Health [facility], active care coordination Confirmed Active POTS (postural orthostatic tachycardia syndrome) Confirmed Active Medulloblastoma Confirmed Active RUQ pain Confirmed Active Tachy-sharmin syndrome Confirmed Active Social History Social History Type Response Smoking Status Never smoker; Tobacc o user in household: No entered on: 04/11/16 Sex Patient Care team information Care Team Personnel Name: Vidhya Grace RN Position: [facility] RN Member Role: Primary Care Nurse Name: Sisi Hernandez MD Position: [facility] Physician - Primary Care Member Role: PCP Address: Address: [address] [place] [address] [facility] Name: Lizzette To RN Position: [facility] RN Member Role: Primary Care Nurse Name: Karolina Adkins MD Position: [facility] Physician -Physician Practices Member Role: Lifetime Consulting Physician Address: Address: [address] [place] [address] [facility] [place] [facility] Name: Rossy Rowe RN Position: [facility] SN RN Member Role: Primary Care Nurse Name: Cindi Hayward Position: [facility] RN Member Role: Primary Care Nurse Name: Bela Mcmahon RN Position: [facility] Hospital Wall Scraper Member Role: Primary Care Nurse Name: Nicole Hernandez RN Position: [facility] RN Member Role: Primary Care Nurse Name: Zac Castillo RN Position: [facility] ED RN W/OE and Tasks Member Role: Primary Care Nurse Name: Jeanne Grande RN Position: [facility] RN Member Role: Primary Care Nurse Care Team Related Persons Name: KATHRYN TURNERY Address: home [address] [place], [place] Name: TURNERBEAR RIBERA SECONDARY Address: home [address] [place] [address] Name: ISATU ECKERT Address: home [place], [place] Name: ISAAC VERDE PRIMARY Address: home [address] [place] [address] Name: ADRY DURANT Name: PANCHO JEROME Address: [place], [place]
--- OUTSIDE RECORDS SUMMARY | 2024-04-27 10:21 | XMS_ITS | Continuity of Care Document ---
Author Organization [facility] Address [address], 4t [place] [address]- Care Team Providers Care Scientific Advisor Name Role Phone Sisi Hernandez MD Primary Care Physician Encounter [facility] Date(s): 10/09/22 - 11/08/22 [facility] Laurendave Hernandezs [facility] [address] 4th [address] [place], [place] [address] Attending Physician: Admjuan josé, Angel Admitting [...] 13:12:00 EDT, Aerosol, Route to Pharmacy Electronically, [id number], [facility], ONLY ALBUTEROL [...] 6 Refills, Maintenance, 09/04/22 8:50:00 EST, Solution, [facility], 155, cm, 08/14/22 13:52:00 EST, Height, 68.1, kg, 08/14/22 13:52:00 EST, Dry Weight Start Date: 09/04/22 Status: Ordered dextroamphetamine 10 mg oral capsule, extended release See Instructions, start 1 capsule By Mouth Daily in AM. Take second capsule if needed, # 60 capsule, 0 Refills, Maintenance, 10/17/22 14:31:00 EDT, ER Capsule, [facility] [...] 07/31/22 11:03:00 EST, Route to Pharmacy Electronically, [facility], Partial fill upon patient request if the prescription is for a schedule... Start Date: 07/31/22 Status: Ordered LORazepam 0.5 mg oral tablet See Instructions, TAKE 1 TABLET BY MOUTH TWO TIMES A DAY NEEDED FOR ANXIETY, # 28 tablet, 2 Refills, Maintenance, 06/06/22 10:45:00 EST, [facility] 3, 155, cm, 04/06/22 14:56:00 EDT, Height, [...] 6:06:00 EST, REC Powder, [facility], Partial fill upon patient request if [...] Maintenance, 08/01/22 6:06:00 EST, Tablet, [facility] 3, Partial fill upon patient request if the prescription is for a schedule II opioid drug., 155, cm,... Start Date: 08/01/22 Status: Ordered Symbicort 160mcg/4.5mcg Inhaler 2, puffs, Inhalation, 2 times a day, # 3 each, Refills 5, Tot. Refills 5, Maintenance, 09/27/22 12:00:00 EST, Aerosol, Route to Pharmacy Electronically, [id number], [facility], replaces flovent inhaler, 155, [...] 3 Refills, Maintenance, 06/05/22 14:27:00 EST, Capsule, [facility], [...] Bilateral leg pain Confirmed Active *BHN/CCA/CC-Matias Vela- [phone]/Health [facility], active care coordination Confirmed Active [...] Name: Sisi Hernandez MD Position: [facility] Primary Care Physician Member Role: PCP Address: Address: [address] [place] [id number] Name: Lizzette To RN Position: [facility] RN Member Role: Primary Care Nurse Name: Karolina Adkins MD Position: [facility] Physician -Physician Practices Member Role: Lifetime Consulting Physician Address: Address: [address] [place] [address] [facility] Care [place], [place] [address] Name: Isadora Godfrey RN Position: [facility] RN Member Role: Primary Care Nurse Name: Rossy Rowe RN Position: [facility] SN RN Member Role: Primary Care Nurse Name: Cindi Hayward Position: [facility] RN Member Role: Primary Care Nurse Name: Bela Mcmahon RN Position: [facility] Hospital Quality Assurance Assistant Member Role: Primary Care Nurse Name: Nicole Hernandez RN Position: [facility] RN Member Role: Primary Care Nurse Name: Zac Castillo RN Position: [facility] ED RN W/OE and Tasks Member Role: Primary Care Nurse Name: Jeanne Grande RN Position: [facility] RN Member Role: Primary Care Nurse Care Team Related Persons Name: KATHRYN TURNERY Address: home [address] [place] [address] Name: BEAR TURNER SECONDARY Address: home [address] [place] [address] Name: ISATU ECKERT Address: [place] [address] Name: ISAAC VERDE PRIMARY Address: [address] Name: ADRY DURANT Name: PANCHO JEROME Address: [place] [address]
--- OUTSIDE RECORDS SUMMARY | 2024-04-27 10:21 | XMS_ITS | Continuity of Care Document ---
Author Organization [facility] Address [address] [place] [address]- Care Team Providers Care Home Care Companion Name Role Phone Sisi Hernandez MD Primary Care Phys[place] [facility] [place]21 [facility] [address] [place], [place] [address] Allergies, Adverse Reactions, [...] 8:50:00 EDT, Aerosol, Route to Pharmacy Electronically, [id number], [facility], 155, cm, 06/03/20 [...] 6 Refills, Maintenance, 06/15/20 11:56:00 EST, Solution, [facility], 155, cm, 06/03/20 13:15:00 EST, Height, 68.5, kg, 06/03/20 13:18:00 EST, Dry Weight Start Date: 06/15/20 Status: Ordered dilTIAZem 240 mg/24 hours oral tablet, extended release 1 tablet = 240 mg, By Mouth, Daily, FURTHER REFILLS BY DIRECTOR OF ACCOUNTS RECEIVABLE, # 90 tablet, 0 Refills, Maintenance, 11/27/19 8:57:00 EDT, ER Tablet, [facility], 155, cm, 10/07/19 [...] tablet, 2 Refills, Maintenance, 05/06/20 15:17:00 EDT, [facility], 155, cm, 05/03/20 18:55:00 EDT, [...] 15:30:53 EST, Aerosol, Route to Pharmacy Electronically, [id number]... Start Date: 09/12/18 Stop Date: 02/09/19 Status: Ordered ProAir HFA 90 mcg/inh inhalation aerosol with adapter 2, puffs, Inhalation, Every 4 hours, PRN, use with spacer chamber BRAND NAME MEDICALLY NECESSARY, #8.5 Gm, Refills 0, Tot. Refills 0, Maintenance, 12/05/20 15:38:00 EDT, Aerosol, Route to Pharmacy Electronically, [id number]... Start Date: 12/05/20 Status: Ordered ramelteon 8 mg oral tablet 1 tablet = 8 mg, By Mouth, Daily at bedtime, # 30 tablet, 11 Refills, Maintenance, 12/02/20 8:48:00EDT, [facility], Partial fill upon patient request [...] 2 Refills, Maintenance, 08/04/20 12:39:00 EST, Capsule, [facility], Partial fill [...] Active Bilateral leg pain(Confirmed) Active *BHN/CCA/CC-Matias Vela- [phone]/Health retirement, active care coordination(Confirmed) Active POTS (postural orthostatic t achycardia syndrome)(Confirmed) Active Medulloblastoma(Confirmed) Active RUQ pain(Confirmed) Active Viral URI(Confirmed) Active Social History Social History Type Response Smoking Status Never smoker; Tobacc o user in household: No entered on: 04/11/16 Sex
--- OUTSIDE RECORDS SUMMARY | 2024-04-27 10:22 | XMS_ITS | Continuity of Care Document ---
Author Organization [facility] Address [address] [place] [id number]- Care Team Providers Care Facility Administrator Name Role Phone Mary KEATING, Sisi Almanza Primary Care Physician [place] [facility] [place] 04/[place]/[address] [address] Attending Physician: Angel Gomez Admitting Physician: Angel [...] 8:50:00 EDT, Aerosol, Route to Pharmacy Electronically, [id number], [facility], 155, cm, 11/06/20 13:15:00 [...] 6 Refills, Maintenance, 06/15/20 11:56:00 EST, Solution, [facility], 155, cm, 06/03/20 13:15:00 EST, Height, 68.5, kg, 06/03/20 13:18:00 EST, Dry Weight Start Date: 06/15/20 Status: Ordered dilTIAZem 240 mg/24 hours oral tablet, extended release 1 tablet = 240 mg, By Mouth, Daily, FURTHER REFILLS BY RADIO RIGGER, # 90 tablet, 0 Refills, Maintenance, 11/27/19 8:57:00 EDT, ER Tablet, [facility], 155, cm, 10/07/19 [...] tablet, 2 Refills, Maintenance, 05/06/20 15:17:00 EDT, [facility], 155, cm, [...] 15:30:53 EST, Aerosol, Route to Pharmacy Electronically, [id number]... Start Date: 09/12/18 Stop Date: 02/09/19 Status: Ordered ProAir HFA 90 mcg/inh inhalation aerosol with adapter 2, puffs, Inhalation, Every 4 hours, PRN, use with spacer chamber BRAND NAME MEDICALLY NECESSARY, #8.5 Gm, Refills 0, Tot. Refills 0, Maintenance, 12/05/20 15:38:00 EDT, Aerosol, Route to Pharmacy Electronically, [id number]... Start Date: 12/05/20 Status: Ordered syringe and [...] 2 Refills, Maintenance, 08/04/20 12:39:00 EST, Capsule, [facility], [...] Active Bilateral leg pain(Confirmed) Active *BHN/CCA/CC-Matias Vela- [phone]/Health retirement, active care coordination(Confirmed) Active POTS (postural orthostatic t achycardia syndrome)(Confirmed) Active Medulloblastoma(Confirmed) Active RUQ pain(Confirmed) Active Viral URI(Confirmed) Active Social History Social History Type Response Smoking Status Never smoker; Tobacc o user in household: No entered on: 04/11/16 Sex
--- OUTSIDE RECORDS SUMMARY | 2024-04-27 10:22 | XMS_ITS | Continuity of Care Document ---
Author Organization [facility] Address [address] [place] [address]- Care Team Providers Care Personnel Monitor Name Role Phone Sisi Hernandez MD Primary Care Physician En[place] [facility] [place]): 09/01/20 - 09/08/20 [facility] [address] [place], [place] [address] Attending Physician: Not on Staff, Attending [...] 8:59:00 EDT, Aerosol, Route to Pharmacy Electronically, [id number], [facility], 155, cm, 10/07/19 12:25:00 [...] 6 Refills, Maintenance, 06/15/20 11:56:00 EST, Solution, [facility], 155, cm, 06/03/20 13:15:00 EST, Height, 68.5, kg, 06/03/20 13:18:00 EST, Dry Weight Start Date: 06/15/20 Status: Ordered dilTIAZem 240 mg/24 hours oral tablet, extended release 1 tablet = 240 mg, By Mouth, Daily, FURTHER REFILLS BY [employer], # 90 tablet, 0 Refills, Maintenance, 11/27/19 8:57:00 EDT, ER Tablet, [facility], 155, cm, 10/07/19 12:25:00 [...] tablet, 2 Refills, Maintenance, 05/06/20 15:17:00 EDT, [facility], 155, cm, 05/03/20 18:55:00 EDT, Height, [...] 15:30:53 EST, Aerosol, Route to Pharmacy Electronically, [id number]... Start Date: 09/12/18 Stop Date: 02/09/19 Status: [...] 2 Refills, Maintenance, 08/04/20 12:39:00 EST, Capsule, [facility], Partial [...] Active Bilateral leg pain(Confirmed) Active *BHN/CCA/CC-Matias Vela- [phone]/Health alf, active care coordination(Confirmed) Active POTS (postural orthostatic t achycardia syndrome)(Confirmed) Active Medulloblastoma(Confirmed) Active RUQ pain(Confirmed) Active Viral URI(Confirmed) Active Social History Social History Type Response Smoking Status Never smoker; Tobacc o user in household: No entered on: 04/11/16 Sex
== END 2024-04-27 13:06 | disposition home or self-care (01) ==
PROVIDERS: PCP Internal Medicine; Visit Provider Internal Medicine Gastroenterology
DX: D86.9 Sarcoidosis, unspecified (principal); K59.9 Functional intestinal disorder, unspecified
CPT/HCPCS: 99214

== ENCOUNTER → 2024-04-27 10:03 | Outpatient (BNVA) | payer OTHER, SELFPAY | PROVIDERS: PCP Internal Medicine; Visit Provider Internal Medicine Gastroenterology | DX: K59.9 Functional intestinal disorder, unspecified (principal); D86.9 Sarcoidosis, unspecified | CPT/HCPCS: 99212 ==

== ENCOUNTER 2024-04-30 15:16 | Outpatient (REF) | payer OTHER, SELFPAY ==
[2024-04-30 16:02] LABS: MANUAL DIFF FLAG NO
[2024-04-30 16:17] LABS: Basophils Percent Auto 0.7 % (0-2); Eosinophils Absolute Auto 0.1 X10*3/uL (0.0-0.4); Eosinophils Percent Auto 1.6 % (0-4); Hematocrit 37.9 % (37.0-47.0); Imm Gran Abs Auto 0.01 X10*3/uL (0.00-0.03); Imm Gran Pct Auto 0.2 % (0.0-0.4); Lymphocytes Absolute Auto 1.3 X10*3/uL (1.2-4.9); Lymphocytes Percent Auto 29.2 % (20-40); Mean Corpuscular HGB Conc 34.3 g/dl (31.0-35.0); Mean Corpuscular Hemoglobin 28.5 pg (27.0-33.0); Mean Corpuscular Volume 83.1 fL (80.0-98.0); Mean Platelet Volume 12.5 fL (9.4-12.3); Monocytes Absolute Auto 0.3 X10*3/uL (0.1-1.2); Monocytes Percent Auto 7.3 % (2-11); Neutrophils Absolute Auto 2.7 x10*3/uL (2.0-8.3); Platelet Count 167 X10*3/uL (160-400); Red Blood Count 4.56 X10*6/uL (4.20-5.50); Red Cell Distribution Width 13.5 % (11.0-16.0); White Blood Count 4.4 X10*3/uL (4.8-10.8)
[2024-04-30 16:23] LABS: Estimated Average Glucose 108 mg/dL; Hemoglobin A1C 118.5322 umol/L; Hemoglobin A1c % 5.4 % (<6.0); Total Hemoglobin (HGBA1C) 3310.3217 umol/L
[2024-04-30 16:57] LABS: Alanine Aminotransferase 19 U/L (0-31); Albumin Level 4.5 g/dL (3.5-5.0); Alkaline Phosphatase 73 U/L (39-117); Anion Gap 11 (12-20); Aspartate Amino Transferase 15 U/L (5-31); Bilirubin Total 0.6 mg/dL (0.0-1.0); Blood Urea Nitrogen 9 mg/dL (9-16); C Reactive Protein < 0.04 mg/dL (< or = 0.50); Calcium 10.3 mg/dL (8.4-10.2); Carbon Dioxide 26 mmol/L (22-29); Chloride 107 mmol/L (96-108); Estimated Glomerular Filt Rate > 60; Glucose Random 90 mg/dL (60-115); Magnesium 1.8 mg/dL (1.6-2.6); Potassium 3.8 mmol/L (3.3-5.1); Sodium 140 mmol/L (135-145); Total Protein 7.8 g/dL (6.5-8.0)
[2024-04-30 17:03] LABS: Erythrocyte Sedimentation Rate 9 MM/HR (0-20)
[2024-04-30 17:13] LABS: Ferritin 89 ng/mL (10-122); Vitamin D 25-OH Total 38.4 ng/mL (>30)
[2024-04-30 17:20] LABS: Folate 9.1 ng/mL (> or = 4.0); Vitamin B12 415 pg/mL (200-900)
[2024-04-30 17:37] LABS: TSH reflex Free T4 1.28 uIU/mL (0.32-4.0)
[2024-05-05 00:49] LABS: Zinc 66 mcg/dL (60-130)
[2024-05-05 12:08] LABS: Vitamin C 1.4 mg/dL (0.3-2.7)
[2024-05-05 14:47] LABS: Vitamin B6 9.7 ng/mL (2.1-21.7)
[2024-05-06 03:14] LABS: Alpha-Tocopherol 10.3 mg/L (5.7-19.9); Beta-Gamma Tocopherol 1.1 mg/L (<=4.3)
[2024-05-06 15:44] LABS: Nicotinamide <20 ng/mL (see note); Vit B3 - Nicotinic Acid <20 ng/mL (see note)
[2024-05-06 20:48] LABS: Vitamin K1 852 pg/mL (130-1500)
[2024-05-07 02:43] LABS: Vitamin A 46 mcg/dL (38-98)
[2024-05-07 06:29] LABS: Vitamin B1 13 nmol/L (8-30)
[2024-05-07 06:39] LABS: Vitamin B5 (Pantothenic Acid) <=40 ng/mL (<275)
== END 2024-04-30 15:17 | disposition home or self-care (01) ==
LOC: HO.LAB 15:16
PROVIDERS: PCP Internal Medicine; Visit Provider Internal Medicine Gastroenterology
DX: K59.9 Functional intestinal disorder, unspecified (principal); D86.9 Sarcoidosis, unspecified; R19.7 Diarrhea, unspecified; K75.81 Nonalcoholic steatohepatitis (NASH)
CPT/HCPCS: 36415; 80053; 82180; 82306; 82550; 82607; 82728; 82746; 83036; 83088; 83520; 83735; 84207; 84425; 84443; 84446; 84590; 84591; 84597; 84630; 85025; 85652; 86140

== ENCOUNTER 2024-05-21 16:52 | Outpatient (REF) | payer OTHER, SELFPAY ==
[2024-05-27 19:43] LABS: Fecal Fat Qualitative NORMAL (NORMAL)
[2024-05-30 02:24] LABS: Pancreatic Elastase-1 69 mcg/g
[2024-05-30 17:28] LABS: Arsenic, Random Urine 100 (<36); Cadmium, Random Urine Results Below (<1.3); Cobalt, Random Urine 1.9 mcg/L (<2.9); Creatinine, Random Urine 49 mg/dL (20-275); Lead, Random Urine Results Below (<10); Mercury, Random Urine Results Below (<5); Thallium, Random Urine Results Below (<0.5)
[2024-05-30 18:13] LABS: Lactoferrin, Fecal, Quant. <6.25 mcg/mL (<7.25)
== END 2024-05-21 16:53 | disposition home or self-care (01) ==
LOC: HO.LNP 16:52
PROVIDERS: Visit Provider Internal Medicine Gastroenterology
DX: L75.0 Bromhidrosis (principal); K51.50 Left sided colitis without complications; K59.9 Functional intestinal disorder, unspecified; D86.9 Sarcoidosis, unspecified
CPT/HCPCS: 82175; 82300; 82570; 82656; 82705; 83018; 83631; 83655; 83825

== ENCOUNTER 2024-05-25 15:07 | Outpatient (AMB) | payer OTHER, SELFPAY ==
--- NOTE | 2024-05-25 15:12 | A.OFFVIS_ITS ---
Vital Signs 05/25/24 15:13 Height 5 ft 1 in Weight 150 lb BMI 28.3 BP 118/60 Blood Pressure Location Lt brachial Position Sitting Pulse 90 Pulse Source Pulse Oximeter Pulse Oximetry (%) 100 Oxygen Delivery Method Room Air Intake Visit Reasons: sarcoidosis Power Hair Clipper Required: No Allergies cefoxitin [CEFOXITIN] Allergy (Severe, Verified 05/25/24 15:12) Anaphylaxis sertraline Allergy (Severe, Verified 05/25/24 15:12) itching vancomycin [VANCOMYCIN] Allergy (Severe, Verified 05/25/24 15:12) Anaphylaxis Iodinated Contrast Media Allergy (Intermediate, Verified 05/25/24 15:12) Wheezing HPI Comments Details: The patient is a 33-year-old woman with a known history of a brain cancer status post chemotherapy many years ago. Ultimately also had a DVT requiring anticoagulation. She has been having increasing dyspnea on exertion. Moderate severity progressive in nature. In addition to that she has noticed some blood in the sputum. At times it is mixed in with mucus. Sometimes it is bright red. She did show me some pictures. usually is minimal in amount may be a dime size. This episode occur about once a week per the patient. The last time she was evaluated was in the ER because of shortness of breath, chest pains and hemoptysis. Her D-dimer was indeed elevated. The patient did have a CTA which I personally reviewed with her. No evidence of any parenchymal or airspace disease. No evidence of any thromboembolic disease. The patient was placed on Symbicort with partial improvement of the symptoms. The patient also has had issues with dysphagia. She did undergo will go a recent endoscopy demonstrating some slight strictures. She did have dilation. It appears that she is doing a little better from this condition. At this point in view of her ongoing hemoptysis will try to plan a bronchoscopy to better assess the airways and see if there is any evidence of any active bleeding from any particular area. Also can assess her posterior pharynx and nasal passages to make sure she is not bleeding from there as well. Will request blood work at this time looking for connective tissue disorder in order to see if we can find an explanation as far as the [place] diagnosis for her ongoing issues. 03/18/2023 the patient is here for a sick visit. Apparently she started having more hemoptysis and also pleuritic chest pain. With her when she would take a deep breath specially between the a scapula on back and also in the substernal area. [id number]-ecfuanzs severity. Also complaining of shortness of breath. She has noted that she has been more tachycardic. She still waiting for her cardiac PET. Had to be rescheduled based on the fact that the [facility] PET scan broke down. She was prescribed prednisone. Sleep but she only took for 2 days did not like the way it made her feel and she stop that therefore is hard to know if actual was effective. She still concern with constitutional symptoms from losing her hair to rashes to the coughing up blood to the shortness of breath. Explained to her that with the angiotensin-converting enzyme level b eing so significantly elevated we need to further assess the diagnosis of sarcoidosis in that started hopeful that we will find out from the cardiac PET scan. If the patient does have more concrete evidence of sarcoidosis we could treat her appropriately if we cannot get answers we may have to refer her to [place]. Meantime based on her symptoms will go ahead and repeat her D-dimer. Also will assess for other connective tissue conditions based on her constitutional symptoms. If the D-dimer is elevated she will require CTA to rule out pulmonary emboli. She has had blood clots in the past. When she called last week I did send her course of doxycycline. She has not used that as of yet. Although the hemoptysis seems to be a little better over the weekend. She did show a picture that hemoptysis primarily was bright red blood about a nickel amount mixed in with regular looking sputum. 04/09/2023 the patient is here for a pulmonary follow-up visit. Much as happened since we last spoke. The patient was having pleuritic discomfort. D- dimer was elevated. Therefore she did undergo CTA. It demonstrated a question of a pulmonary emboli. Therefore the patient was started on Eliquis. The patient has had deep venous thrombosis in the past. The patient underwent a V/Q scan to further address the question of pulmonary embolism. It demonstrated no evidence of any perfusion defects therefore negative for pulmonary emboli. At that point the patient is having some difficulties tolerating the Eliquis and she decided to stop it. The patient understands that having the negative V/Q scan does not rule out blood clots since she was already on therapy. The patient also had an elevated D-dimer. She is willing to repeat a D-dimer. If D-dimer continues to be elevated I did recommend she go back on Eliquis at least completed 3 months course. The patient is awaiting her cardiac PET scan. It was finally approved and she will have it done this week. Will be assessing for any evidence of any cardiac sarcoid. In addition to that she is going to have her eye exam to rule out uveitis in the coming days. In addition to that the patient does state that she develops a rash at times. Right now the rashes improved. In addition to these can rash she is noticed nodular densities on her labia of her genitals. She is wondering if this could be potentially sarcoidosis. Patient will need a biopsy to assess for granulomas. At this point all we have is that her Rojas level continues to be critically elevated which is a marker of active sarcoidosis. If indeed all her symptoms are consistent with sarcoidosis then we can start her on therapy. 07/04/2023 the patient is here for a pulmonary follow-up visit. Overall she is doing about the same. Still complaining of shortness of breath and chest pressure sensation pressure that radiates to the back. The Symbicort does help but is not completely helpful. We did review her allergy testing in her IgE in her IgE is significantly elevated above 300 she does have significant allergies to both environmental allergies in foods. At this point she is maximized on respiratory therapy then I do believe that she will be a great candidate for Xolair. Hopefully by using biologics we can improve her respiratory complaints. The patient did follow-up with the antique clock repairer and they did not see any sarcoid in the eyes although she does have the beginnings of cataracts. In addition to that the patient was seen by Dermatology but they did not see any lesions to be concerned about from dermatological standpoint. There which is concerned about acne. Therefore, this point we have exhausted all the different potential sarcoid related conditions and nothing really to explain the significantly elevated Rojas level. Explained to her that is likely more of a genetic abnormality where she has an elevated Rojas level without actually having sarcoidosis. Therefore, but these sarcoidosis question aside. Will try the Xolair therapies to treat her significant asthma and significant allergies and hope to improve her all respiratory capacity and quality of life. If the patient does not see any significant improvement with the Xolair then will refer her to [place] for further tertiary care. 10/24/2023 the patient is here for a pulmonary follow-up visit. She started developing episodes of hemoptysis again. Intermittent. Mild in severity. Also complaining of shortness of breath and chest discomfort. She had a CTA back in February demonstrating some subsegmental pulmonary emboli. Will go ahead and repeat her CTA at this time. Again, we talked about the abnormal Rojas level. 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 She has already been ruled out for sarcoidosis. Also to note that she did have a cardiac PET to further evaluate for cardiac sarcoid specially since she has a pacemaker. The cardiac PET was reassuring without any evidence of any FDG activity a the heart or the heart. Although it demonstrated hyper metabolic activity of the breast tissue bilaterally. We will review the CT scan images. However the patient may benefit from getting a breast ultrasound for better assessment of that area. She has been on the Xolair. Although more recently she has been having some difficulties with transportation and has not been able to get it regularly. She understand that she is significant allergies and I do believe that she does develop significant chest tightness from bronchospasms from untreated allergic asthma. Therefore she will make an effort to get her Xolair injections regularly. 12/26/2023 the patient is here for a pulmonary follow-up visit. Overall she is feeling better. She continues on the Xolair injections every 2 weeks. She also continues with Symbicort. Her respiratory symptoms have improved. Denies any hemoptysis. Denies any chest pain. We did review her blood work and she still continues have the elevated Rojas level. At this point the think it has related to a genetic predisposition. No evidence of any active sarcoidosis. She did have a CTA based on the fact that she had blood clots in the past still has an elevated D-dimer. The patient does have pulmonary nodules noted. Alone see any evidence of any residual blood clots. Will awaiting the final read on the CT scan. We did review her PET scan that she had previously regarding the question of cardiac sarcoid. No evidence of any cardiac sarcoid noted but there was some increased metabolic activity in the breasts bilaterally. Likely physiologic but will still send the records to her blackjack dealer doctor just in case. Patient is status post hysterectomy. 05/25/2024 the patient is here for a pulmonary follow-up visit. Overall she is still having her symptoms. She does complaint of her pleuritic chest pain. Also has myalgias and arthralgias at times. We had tested her for connective tissue diseases specially because of her ongoing symptoms and history of hypercoagulable state although the overall negative. She did have a creatinine kinase check racing that was indeed elevated bringing up the question of myositis. Therefore will redo the blood work to include polymyositis. It may be that she has a pauci immune process. I will refer her to Rheumatology to further look into this. In the meantime she continues with respiratory medications. She feels like the Xolair has been effective for her. She feels a little better. She still has significant daytime drowsiness but she has untreated narcolepsy. She has tried and failed multiple different medications not able to tolerate them for 1 reason or the other. Therefore she does have significant daytime drowsiness on a regular basis. [facility] Medical History (Updated 05/25/24 @ 15:32 by Justen Nettles MD) Myalgia Environmental allergies Asthma Pulmonary emboli Pleuritic chest pain Abnormal serum angiotensin-converting enzyme level Cardiac arrhythmia Pulmonary nodules Dyspnea History of DVT (deep vein thrombosis) History of chemotherapy History of palpitations Hx of supraventricular tachycardia Narcolepsy Seasonal allergies Anxiety and depression Pacemaker Pernicious anemia B12 deficiency Active asthma POTS (postural orthostatic tachycardia syndrome) H/O brain tumor Surgical History History of repair of rectocele Hx of hysterectomy History of cardiac radiofrequency ablation (RFA) Hx of craniotomy H/O colonoscopy H/O esophagogastroduodenoscopy Hx of appendectomy Family History Mother Heart problem Maternal Grandfather Heart problem Paternal Grandmother Dementia Social History Household Members: None Are you a primary patient care secretary to a significant other at home: No Do you presently have visiting nurse or other home services: Yes ([employer] 4.5 week) Alcohol intake: current Alcohol intake frequency: a few times a month Patient Tobacco Use Status: Never used Tobacco Review of Systems Const Reports body aches, Reports fatigue and Denies night sweats Eyes Denies change in vision ENT Reports dysphagia and Denies epistaxis Card Denies chest pain, Denies dyspnea and Denies dyspnea on exertion Resp Denies cough, Denies hemoptysis, Denies pain on inspiration, Denies pain with cough, Denies dyspnea, Denies dyspnea on exertion and Denies wheezing GI Reports as per HPI, Reports constipation and Reports dysphagia Reports as per HPI and Reports genital lesions Musc Reports no additional complaints Skin/Breast Reports alopecia, Reports pruritus and Denies rash Neuro Reports as per HPI Endo Reports fatigue Fabian/Lymph Denies easy bleeding, Denies easy bruising and Denies lymphadenopathy Aller/Immun Denies wheezing Physical Exam Vital Signs: Last Vital Signs Pulse 90 05/25/24 15:13 BP 118/60 05/25/24 15:13 Pulse Ox 100 05/25/24 15:13 Oxygen Delivery Method Room Air 05/25/24 15:13 BMI result Body Mass Index 28.3 Const General: comfortable HEENT Head: Yes normocephalic Eyes General: appearance normal, both eyes and all related structures Neck Neck: Yes supple Chest Chest palpation & inspection: normal inspection of the chest Resp Effort & Inspection: normal respiratory effort Auscultation: clear to auscultation bilaterally and no wheezes Cardio Rate: regular rate Rhythm: regular rhythm Heart sounds: S1 normal heart sound present and S2 normal heart sound present GI Palpation (GI): Soft to palpation External Female Exam: lesion (The patient brought a picture-vasiculopapular lesion with drainage) Skin General skin exam: other (papules) Extrem General: Yes no clubbing, cyanosis or edema Assessment & Plan Assessment & Plan (1) Asthma: Code(s): J45.909 - Unspecified asthma, uncomplicated Category: Medical Qualifiers: Asthma complication type: uncomplicated Asthma persistence: persistent Asthma severity: moderate Qualified Code(s): J45.40 - Moderate persistent asthma, uncomplicated (2) Environmental allergies: Code(s): Z91.09 - Other allergy status, other than to drugs and biological substances Category: Medical (3) Pulmonary nodules: Code(s): R91.8 - Other nonspecific abnormal finding of lung field Category: Medical (4) Abnormal serum angiotensin-converting enzyme level: Comment: No evidence of sarcoidosis Code(s): R74.8 - Abnormal levels of other serum enzymes Category: Medical (5) Pulmonary emboli: Comment: quationable base on CTA, but VQ negative Code(s): I26.99 - Other pulmonary embolism without acute cor pulmonale Category: Medical Qualifiers: Acute cor pulmonale presence: unspecified Chronicity: chronic Pulmonary embolism type: other Qualified Code(s): I27.82 - Chronic pulmonary embolism (6) Chest pain: Code(s): R07.9 - Chest pain, unspecified Category: Medical Qualifiers: Chest pain type: unspecified Qualified Code(s): R07.9 - Chest pain, unspecified (7) Myalgia: Code(s): M79.10 - Myalgia, unspecified site Category: Medical Plan continue Symicort continue Xolair 225mg [id number] DAMARI as needed continue allergy therapies bloodwork trial of Plaquenil Rheumatology eval F/U 3-4 months Orders: Orders Complete Blood Count Auto Diff Today J45.40 - Moderate persistent asthma, uncomplicated, M79.10 - Myalgia, unspecified site, R07.9 - Chest pain, unspecified Anti DNA DS Antibody Today J45.40 - Moderate persistent asthma, uncomplicated, M79.10 - Myalgia, unspecified site, R07.9 - Chest pain, unspecified NIRAJ 1 Antibody Today J45.40 - Moderate persistent asthma, uncomplicated, M79.10 - Myalgia, unspecified site, R07.9 - Chest pain, unspecified D Dimer High Sensitivity Today J45.40 - Moderate persistent asthma, uncomplicated, M79.10 - Myalgia, unspecified site, R07.9 - Chest pain, unspec ified Basic Metabolic Panel Today J45.40 - Moderate persistent asthma, uncomplicated, M79.10 - Myalgia, unspecified site, R07.9 - Chest pain, unspecified RESHMA Reflex Titer and Pattern Today J45.40 - Moderate persistent asthma, uncomplicated, M79.10 - Myalgia, unspecified site, R07.9 - Chest pain, unspecified Myositis Assess JO1 Ab Today J45.40 - Moderate persistent asthma, uncomplicated, M79.10 - Myalgia, unspecified site, R07.9 - Chest pain, unspecified Erythrocyte Sedimentation Rate Today J45.40 - Moderate persistent asthma, uncomplicated, M79.10 - Myalgia, unspecified site, R07.9 - Chest pain, unspecified Immunoglobulin E Today J45.40 - Moderate persistent asthma, uncomplicated, M79.10 - Myalgia, unspecified site, R07.9 - Chest pain, unspecified Referrals Rheumatology Referral M79.10 - Myalgia, unspecified site Medications: New hydroxychloroquine (Plaquenil) 200 mg PO DAILY 30 tabs 5RF 30 days Coding Level of Care Code Est Pt Level 4 (62205) Diagnoses Moderate persistent asthma without complication J45.40 Asthma complication type: uncomplicated Asthma persistence: persistent Asthma severity: moderate Environmental allergies Z91.09 Pulmonary nodules R91.8 Abnormal serum angiotensin-converting enzyme level R74.8 Other chronic pulmonary embolism, unspecified whether acute cor pulmonale present I27.82 Acute cor pulmonale presence: unspecified Chronicity: chronic Pulmonary embolism type: other Chest pain, unspecified type R07.9 Chest pain type: unspecified Myalgia M79.10 Time Spent (min) 18
[2024-05-25 15:13] VITALS: BP 118/60; PULSE 90; O2SAT 100; BMI 28.3
== END 2024-05-25 15:42 | disposition home or self-care (01) ==
LOC: HO.HPS 15:08
PROVIDERS: PCP Internal Medicine; Visit Provider Hospitalist
DX: J45.40 Moderate persistent asthma, uncomplicated (principal); Z91.09 Other allergy status, other than to drugs and biological substances; R91.8 Other nonspecific abnormal finding of lung field; R74.8 Abnormal levels of other serum enzymes; I27.82 Chronic pulmonary embolism; R07.9 Chest pain, unspecified; M79.10 Myalgia, unspecified site
CPT/HCPCS: 99214

== ENCOUNTER → 2024-05-25 15:07 | Outpatient (BNVA) | payer OTHER, SELFPAY | PROVIDERS: PCP Internal Medicine; Visit Provider Hospitalist | DX: J45.40 Moderate persistent asthma, uncomplicated (principal); R91.8 Other nonspecific abnormal finding of lung field; R74.8 Abnormal levels of other serum enzymes; R07.9 Chest pain, unspecified; M79.10 Myalgia, unspecified site; Z91.09 Other allergy status, other than to drugs and biological substances; I27.82 Chronic pulmonary embolism | CPT/HCPCS: 99212 ==

== ENCOUNTER 2024-06-01 13:32 | Outpatient (AMB) | payer OTHER, SELFPAY ==
--- NOTE | 2024-06-01 13:33 | MHC.OFFVIS ---
Vital Signs 06/01/24 13:34 Height 5 ft 1 in Weight 154 lb 5.177 oz BMI 29.2 BP 112/67 Blood Pressure Location Lt brachial Position Sitting Pulse 70 Intake Visit Reasons: 4 month follow up Intake Note: Ekta presents in the office as a 4 month follow up. CC: She states that she is still unable to go to the bathroom. she is not sure if the hernia is from straining, she also had tests that she would like results too. 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 Times as causes her nausea. Carafate 1 gm tid Previously treated with Rifaximin for SIBO- she now takes it intermittently, somewhat p.r.n. She was seeing Dr. Bello, as well as Dr. Leigh- Has always has GI problems, since she was a kid- The pain she has now is way different. Mostly epigastric, bloating She has had a pacemaker for 2 years sleep variable dx with narcolepsy, on armodafinil maybe affecting her appetite negative genetic tests for NF and colorectal d/o TESTS: EGD/colonoscopy 2016 -[facility]-02/2020-nml MRI A/P: no inflammation, stool burden noted duplex: mild raised velocities she had MR defecography with fibroid, rectocele repeat Colonoscopy/EGD 10/2021; Endoscopy Findings: erosive gastritis possible reta Colonoscopy Findings: internal hemorrhoids abnormal appearing TI Path: A. Duodenum, biopsy: Duodenal mucosa with mildly increased intraepithelial lymphocytes and preserved villous architecture; negative for T. whipplei. See comment. B. Stomach, biopsy: Oxyntic mucosa with mild chronic inactive inflammation; no Helicobacter organisms seen. C. Esophagus, random, biopsy: Active esophagitis (maximum eosinophil count focally up to 19 per high powered field). D. Terminal ileum, biopsy: Terminal ileal mucosa within normal limits. E. Colon, random, biopsy: Colonic mucosa within normal limits. LABS: neg celiac, b12, nml, pernicious anemia ab--neg, fat oren vits were nml, RAST -- pos for milk, hazelnut, wheat, egg CXR--nml Ba swallow-tablet passed easily, but sub optimal study as couldn drink the barium, reflux EGD 10/03/22 schatzki ring mild esophagitis lax LES dilation to 16 mm--no tears I referred her to pulm for hemoptysis w/u for sarcoid due to high TAMEKA--negative, but v high IgE and put on xolair for asthma sx she also had a qn of PTE, its is uncertain --awaiting rept CTPE she had a hysterectomy, and had rectocele repaired 07/31/22 I offered her a second opinion, ongoing constipation, ?benefit from subtotal colectomy she tried rifaximin but didn't help her sx INTERIM: here for f/u discussed labs, low panc elastase, borderline PTH, and pos arsenic!, mild ck elevation she has issues with sweating still has satiety ongoing constipation seeing umass in few weeks denies pesticide exposure, no xs consumption of seafood, etc EXAM: GENERAL: The patient is well developed and nontoxic. VITAL SIGNS:see workflow HEENT: Nonicteric sclerae, PERRLA, EOMI. Oropharynx clear. Moist mucous membranes. Conjunctivae appear well perfused. No thyroid mass. CHEST: Chest wall is nontender. HEART: Regular rate and rhythm without murmurs. LUNGS: Clear to auscultation bilaterally. ABDOMEN: Soft, positive bowel sounds, nontender, no organomegaly.no flank tenderness SKIN: No rash, no excessive bruising, petechiae, or purpura. NEUROLOGIC: Cranial nerves II-XII intact without motor/sensory deficit. Psych: normal affect Assessments 1. 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, may have gastroparesis as well , pos arsenic and borderline ca, ck elevation ? from sarcoidosis or heavy metal poisioning PLAN: 1/ try motegrtiy 2 mg 2/ recheck labs incl Ca, aldolase, PO4, 3/ trial of creon 4/ recheck arsenic, no RF from her hx PFSH Medical History Myalgia Environmental allergies Asthma Pulmonary emboli Pleuritic chest pain Abnormal serum angiotensin-converting enzyme level Cardiac arrhythmia Pulmonary nodules Dyspnea History of DVT (deep vein thrombosis) History of chemotherapy History of palpitations Hx of supraventricular tachycardia Narcolepsy Seasonal allergies Anxiety and depression Pacemaker Pernicious anemia B12 deficiency Active asthma POTS (postural orthostatic tachycardia syndrome) H/O brain tumor Surgical History History of repair of rectocele Hx of hysterectomy History of cardiac radiofrequency ablation (RFA) Hx of craniotomy H/O colonoscopy H/O esophagogastroduodenoscopy Hx of appendectomy Family History Mother Heart problem Maternal Grandfather Heart problem Paternal Grandmother Dementia Social History Household Members: None Are you a primary childcare administrator to a significant other at home: No Do you presently have visiting nurse or other home services: Yes (ANESTHESIA TECH 4.5 week) Alcohol intake: current Alcohol intake frequency: a few times a month Patient Tobacco Use Status: Never used Tobacco Physical Exam Vital Signs: Last Vital Signs Pulse 70 06/01/24 13:34 BP 112/67 06/01/24 13:34 BMI result Body Mass Index 29.2 Assessment & Plan Assessment & Plan (1) Sarcoidosis: Code(s): D86.9 - Sarcoidosis, unspecified Category: Medical Plan: see above (2) Myalgia: Code(s): M79.10 - Myalgia, unspecified site Category: Medical Plan: see above Orders: Orders Heavy Metals Screen Blood Today D86.9 - Sarcoidosis, unspecified, M79.10 - Myalgia, unspecified site Parathyroid Hormone Related Pr Today D86.9 - Sarcoidosis, unspecified, E83.52 - Hypercalcemia, M79.10 - Myalgia, unspecified site Vitamin D 1,25 dihydroxy Today D86.9 - Sarcoidosis, unspecified, M79.10 - Myalgia, unspecified site Creatine Kinase Total Today D86.9 - Sarcoidosis, unspecified, M79.10 - Myalgia, unspecified site Aldolase Today D86.9 - Sarcoidosis, unspecified, M79.10 - Myalgia, unspecified site Heavy Metals Screen 24H Urine Today D86.9 - Sarcoidosis, unspecified, M79.10 - Myalgia, unspecified site Calcium, Ionized Today D86.9 - Sarcoidosis, unspecified, E83.52 - Hypercalcemia, M79.10 - Myalgia, unspecified site Phosphorus Today D86.9 - Sarcoidosis, unspecified, M79.10 - Myalgia, unspecified site Parathyroid Hormone Intact Today D86.9 - Sarcoidosis, unspecified, E83.52 - Hypercalcemia, M79.10 - Myalgia, unspecified site Vitamin D 25-OH Total Today D86.9 - Sarcoidosis, unspecified, M79.10 - Myalgia, unspecified site Medications: New hjueht-[id number]-[id number] 12,000-38,000 -60,000 unit (Creon) administer with meals and/or snacks 3 caps PO TID 300 caps 1RF prucalopride (Motegrity) 2 mg PO DAILY 30 tabs 1RF Coding Level of Care Code Est Pt Level 4 (67000) Diagnoses Sarcoidosis D86.9 Myalgia M79.10
[2024-06-01 13:34] VITALS: BP 112/67; PULSE 70; BMI 29.2
--- OUTSIDE RECORDS SUMMARY | 2024-06-01 13:34 | XMS_ITS | Continuity of Care Document ---
Author Organization [facility] Address [address], [address] [place] [address]- Care Team Providers Care Eye Surgeon Name Role Phone Sisi Hernandez MD Primary Care Physician Encounter [facility] [place] Date(s): 05/18/22 - 05/25/22 [facility] [employer] [facility] [address], [address] [place], [place] [address] Attending Physician: Jacqueline Moura MD Referring Physician: Sisi [...] 11/16/21 23:51:00 EDT, Route to Pharmacy Electronically, [facility], Partial fill upon patient request if the presc... Start Date: 11/16/21 Status: Ordered albuterol CFC free 90 mcg/inh inhalation aerosol 2, puffs, Inhalation, Every 6 hours, PRN, # 2 each, Refills 11, Tot. Refills 11, Maintenance, 02/15/22 13:12:00 EDT, Aerosol, Route to Pharmacy Electronically, [id number], [facility], ONLY ALBUTEROL HFA, [...] 6 Refills, Maintenance, 10/03/21 12:18:00 EST, Solution, [facility], 155, cm, 09/27/21 15:08:00 EST, Height, 68.5, kg, 06/03/20 13:18:00 EST, Dry Weight Start Date: 10/03/21 Status: Ordered cyanocobalamin 1000 mcg/ml injectable solution 1 mL = 1,000 mcg, Intramuscular, Every 30 days, # 3 mL, 6 Refills, Maintenance, 06/15/20 11:56:00 EST, Solution, [facility], 155, cm, 06/03/20 13:15:00 EST, Height, 68.5, kg, 06/03/20 13:18:00 EST, Dry Weight Start Date: 06/15/20 Status: Ordered dilTIAZem 240 mg/24 hours oral tablet, extended release 1 tablet = 240 mg, By Mouth, Daily, FURTHER REFILLS BY VOCATIONAL REHABILITATION ADMINISTRATOR, # 90 tablet, 0 Refills, Maintenance, 11/27/19 8:57:00 EDT, ER Tablet, [facility], 155, cm, 10/07/19 12:25:00 EDT, Height, 63, kg, 07/01/19 19:58:00 EST, Dry Weight Start Date: 11/27/19 Status: Ordered Flovent HFA 220 mcg/inh inhalation aerosol 2 puffs, Inhalation, 2 times a day, new dosage, # 12 Gm, 0 Refills, Maintenance, 02/15/22 13:10:00 EDT, Aerosol, [facility], new dosage, 155, [...] Route to Pharmacy Electronically, [facility], Partial fill upon patient request if the prescription is... Start Date: 11/16/21 Status: Ordered LORazepam 0.5 mg oral tablet See Instructions, TAKE 1 TABLET BY MOUTH TWO TIMES A DAY NEEDED FOR ANXIETY, # 28 tablet, 2 Refills, Maintenance, 05/06/20 15:17:00 EDT, [facility], 155, cm, [...] 23:51:00 EDT, DIS Tablet, [facility], Partial fill upon patient request if the prescription is for a schedule II o... Start Date: 11/16/21 Status: Ordered Peridex 0.12% liquid 15 mL = 0.018 Gm, By Mouth, 2 times a day, # 420 mL, 0 Refills, Maintenance, 01/18/22 8:47:00 EDT, Liquid, [facility], Partial fill upon patient request [...] 3 Refills, Maintenance, 10/25/21 11:13:00 EDT, Capsule, [facility], Partial fill upon patient [...] Bilateral leg pain Confirmed Active *BHN/CCA/CC-[facility]- [phone]/Health correction, active care coordination Confirmed Active POTS (postural orthostatic tachycardia syndrome) Confirmed Active Medulloblastoma Confirmed Active RUQ pain Confirmed Active Social History Social History Type Response Smoking Status Never smoker; Tobacc o user in household: No entered on: 04/11/16 Sex Female Patient Care team information Personnel Name: Sisi Hernandez MD Address: Address: [address] [place] [address]
--- OUTSIDE RECORDS SUMMARY | 2024-06-01 13:36 | XMS_ITS | Continuity of Care Document ---
Author Organization [facility] Address [address] [place] [address]- Care Team Providers Care Cap Sewer Name Role Phone Sisi Hernandez MD Primary Care Physician [phone] Encounter [facility] [place](s): 05/20/24 - 05/27/24 [facility] [address] [place], [place] [address] Attending Physician: Not on Staff, [...] 13:12:00 EDT, Aerosol, Route to Pharmacy Electronically, [id number], [facility], ONLY ALBUTEROL HFA, CANCEL... Start Date: 02/15/22 Stop Date: 02/10/23 Status: Ordered Colace sodium 100 mg oral capsule 100 mg, 1, capsule, By Mouth, 2 times a day, PRN, # 180 capsule, Refills 3, Tot. Refills 3, Maintenance, for constipation, 08/09/23 14:49:00 EST, Route to Pharmacy Electronically, [facility], Partial fill upon [...] 11 Refills, Maintenance, 02/06/24 12:13:00 EDT, Solution, [facility], dose change, 155, cm, [...] 07/31/22 11:03:00 EST, Route to Pharmacy Electronically, [facility], Partial fill upon patient request if the prescription is for a schedule... Start Date: 07/31/22 Status: Ordered ketoconazole 1% topical shampoo See Instructions, Apply 5 to 10 mL to wet scalp, lather, leave on 3 to 5 minutes, and rinse; apply twice weekly for 2 to 4 weeks., # 200 mL, 5 Refills, Maintenance, 11/22/23 15:46:00 EDT, [facility], Partial fill upon patient request if... Start Date: 11/22/23 Status: Ordered ketoconazole 2% topical shampoo 1 application, Topically, Once, Apply 5 to 10 mL to wet scalp, lather, leave on 3 to 5 minutes, andrinse; apply weekly for 2 to 4 weeks., # 120 mL, 4 Refills, Soft Stop, 11/25/23 12:40:00 EDT, Shampoo, [facility], Partial fill upon pat... Start Date: 11/25/23 Status: Ordered LORazepam 0.5 mg oral tablet See Instructions, TAKE 1 TABLET BY MOUTH TWO TIMES A DAY NEEDED FOR ANXIETY, # 28 tablet, 2 Refills, Maintenance, 02/06/24 12:19:00 EDT, [facility], 155, cm, 02/06/24 [...] 0 Refills, Maintenance, 08/01/22 6:06:00 EST, Tablet, [facility], Partial fill upon patient request if the prescription is for a schedule II opioid drug., 155, cm,... Start Date: 08/01/22 Status: Ordered Symbicort 160mcg/4.5mcg Inhaler 2, puffs, Inhalation, 2 times a day, # 3 each, Refills 5, Tot. Refills 5, Maintenance, 02/06/24 12:14:00 EDT, Aerosol, Route to Pharmacy Electronically, [id number], [facility], replaces flovent inhaler, 155, cm,... [...] 07/31/22 11:03:00 EST, Route to Pharmacy Electronically, [facility], Partial fill upon [...] Refills, Maintenance, 08/14/23 13:38:00 EST, Chew Tablet, [facility], Partial fill upon patient request if the prescription is for a schedule II opioid drug., 155, cm, 08/14/23 13:0... Start Date: 08/14/23 Status: Ordered Vitamin D3 50,000 intl units oral capsule 1 capsule = 1,250 mcg, By Mouth, Every week, # 13 capsule, 1 Refills, Maintenance, 05/17/23 17:07:00 EDT, Capsule, [facility], Partial fill [...] 0 Refills, Maintenance, 11/01/23 14:07:00 EDT, Capsule, [facility], Partial fill u... Start [...] Active Memory change Confirmed Active *BHN/CCA/CC-[facility]- [phone]/Health long-term, active care coordination Confirmed Active POTS [...] Primary Care Member Role: PCP Address: Address: [address] [place] [id number] Name: Lizzette To RN Position: [facility] RN Member Role: Primary Care Nurse Name: Karolina Adkins MD Position: [facility] Physician - Primary Care Member Role: Lifetime Consulting Physician Address: Address: [address] [place] [address] [facility] [place] [address]- [place] Name: Isadora Godfrey RN Position: [facility] [...] Tasks Member Role: Primary Care Nurse Name: Bela Sherman RN Position: [facility] Hospital Direct Care Provider Member Role: Primary Care Nurse Name: Jeanne Grande RN Position: [facility] RN Member Role: Primary Care Nurse Care Team Related Persons Name: BEAR TURNER Address: home [address] [place] [address] Name: BEAR TURNER SECONDARY Address: [address] [address] Name: ISATU ECKERT Address: [place] [address] Name: ISAAC VERDE PRIMARY Address: home [address] [place] [address] Name: ADRY DURANT Name: PANCHO JEROME Address: [place] [address]
--- OUTSIDE RECORDS SUMMARY | 2024-06-01 13:39 | XMS_ITS | Continuity of Care Document ---
Author Organization [facility] Address [address] [place] [address]- Care Team Providers Care Embryology Professor Name Role Phone Mary KEATING, Sisi Almanza Primary Care Physician [place] [facility] [place] - 11/04/21 [facility] [address] [place], [place] [address] Allergies, Adverse Reactions, Alerts Substance [...] Refills, Maintenance, 10/25/21 15:46:00 EDT, Tablet, [facility], Partial [...] Maintenance, 10/25/21 15:46:00 EDT, ER Capsule, [facility], Partial fill upon patient r... Start Date: 10/25/21 Status: Ordered albuterol CFC free 90 mcg/inh inhalation aerosol 2, puffs, Inhalation, Every 6 hours, PRN, # 2 each, Refills 11, Tot. Refills 11, Maintenance, 10/05/21 9:52:00 EST, Aerosol, Route to Pharmacy Electronically, [id number], [facility], ONLY ALBUTEROL HFA, CANCEL V... [...] 6 Refills, Maintenance, 10/03/21 12:18:00 EST, Solution, [facility], 155, cm, 09/27/21 15:08:00 EST, Height, 68.5, kg, 06/03/20 13:18:00 EST, Dry Weight Start Date: 10/03/21 Status: Ordered cyanocobalamin 1000 mcg/ml injectable solution 1 mL = 1,000 mcg, Intramuscular, Every 30 days, # 3 mL, 6 Refills, Maintenance, 06/15/20 11:56:00 EST, Solution, [facility] 3, 155, cm, 06/03/20 13:15:00 EST, Height, 68.5, kg, 06/03/20 13:18:00 EST, Dry Weight Start Date: 06/15/20 Status: Ordered dilTIAZem 240 mg/24 hours oral tablet, extended release 1 tablet = 240 mg, By Mouth, Daily, FURTHER REFILLS BY MATCHER LEATHER PARTS, # 90 tablet, 0 Refills, Maintenance, 11/27/19 8:57:00 EDT, ER Tablet, [facility], 155, cm, 10/07/19 12:25:00 EDT, Height, 63, kg, 07/01/19 19:58:00 EST, Dry Weight Start Date: 11/27/19 Status: Ordered Flovent HFA 110 mcg/inh inhalation aerosol 2 puffs, Inhalation, 2 times a day, # 12 Gm, 0 Refills, Maintenance, 10/05/21 13:23:00 EST, Aerosol, [facility], Partial [...] 15:17:00 EDT, [facility], 155, [...] Refills, Maintenance, 10/25/21 11:13:00 EDT, Capsule, [facility], [...] Near syncope(Confirmed) Active Bilateral leg pain(Confirmed) Active *BHN/CCA/CC-[facility]- [phone]/Health mcc, active care coordination(Confirmed) Active POTS (postural orthostatic t achycardia syndrome)(Confirmed) Active Medulloblastoma(Confirmed) Active RUQ pain(Confirmed) Active Social History Social History Type Response Smoking Status Never smoker; Tobacc o user in household: No entered on: 04/11/16 Sex Female
--- OUTSIDE RECORDS SUMMARY | 2024-06-01 13:39 | XMS_ITS | Continuity of Care Document ---
Author Organization [facility] Address [address] [place] [address]- Care Team Providers Care Powder Coater Name Role Phone Mary KEATING, Sisi Almanza Primary Care Physician [phone] [place] [facility]s): 04/09/24 - 05/09/24 [facility] [address] [place], [place] [address] Attending Physician: Admtr, [id number] Admitting Physician: Admtr, [id number] Referring Physician: Admtr, [...] 13:12:00 EDT, Aerosol, Route to Pharmacy Electronically, [id number], [facility], ONLY ALBUTEROL HFA, CANCEL... Start Date: 02/15/22 Stop Date: 02/10/23 Status: Ordered Colace sodium 100 mg oral capsule 100 mg, 1, capsule, By Mouth, 2 times a day, PRN, # 180 capsule, Refills 3, Tot. Refills 3, Maintenance, for constipation, 08/09/23 14:49:00 EST, Route to Pharmacy Electronically, [facility], Partial fill [...] 11 Refills, Maintenance, 02/06/24 12:13:00 EDT, Solution, [facility], dose change, 155, cm, 02/06/24 [...] EST, Route to Pharmacy Electronically, [facility], Partial fill upon patient request if the prescription is for a schedule... Start Date: 07/31/22 Status: Ordered ketoconazole 1% topical shampoo See Instructions, Apply 5 to 10 mL to wet scalp, lather, leave on 3 to 5 minutes, and rinse; apply twice weekly for 2 to 4 weeks., # 200 mL, 5 Refills, Maintenance, 11/22/23 15:46:00 EDT, [facility], Partial fill upon patient request if... Start Date: 11/22/23 Status: Ordered ketoconazole 2% topical shampoo 1 application, Topically, Once, Apply 5 to 10 mL to wet scalp, lather, leave on 3 to 5 minutes, andrinse; apply weekly for 2 to 4 weeks., # 120 mL, 4 Refills, Soft Stop, 11/25/23 12:40:00 EDT, Shampoo, [facility], Partial fill upon pat... Start Date: 11/25/23 Status: Ordered LORazepam 0.5 mg oral tablet See Instructions, TAKE 1 TABLET BY MOUTH TWO TIMES A DAY NEEDED FOR ANXIETY, # 28 tablet, 2 Refills, Maintenance, 02/06/24 12:19:00 EDT, [facility], 155, cm, 02/06/24 11:49:00 [...] Maintenance, 08/01/22 6:06:00 EST, Tablet, [facility], Partial fill upon patient request if the prescription is for a schedule II opioid drug., 155, cm,... Start Date: 08/01/22 Status: Ordered Symbicort 160mcg/4.5mcg Inhaler 2, puffs, Inhalation, 2 times a day, # 3 each, Refills 5, Tot. Refills 5, Maintenance, 02/06/24 12:14:00 EDT, Aerosol, Route to Pharmacy Electronically, [id number][facility], replaces flovent inhaler, 155, [...] EST, Route to Pharmacy Electronically, [facility], Partial fill [...] Refills, Maintenance, 08/14/23 13:38:00 EST, Chew Tablet, [facility], Partial fill upon patient request if the prescription is for a schedule II opioid drug., 155, cm, 08/14/23 13:0... Start Date: 08/14/23 Status: Ordered Vitamin D3 50,000 intl units oral capsule 1 capsule = 1,250 mcg, By Mouth, Every week, # 13 capsule, 1 Refills, Maintenance, 05/17/23 17:07:00 EDT, Capsule, [facility], [...] 0 Refills, Maintenance, 11/01/23 14:07:00 EDT, Capsule, [facility], Partial fill u... 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 Social History Social History Type Response Smoking Status Never smoker; Tobacc o user in household: No entered on: 04/11/16 Sex Hospital Consult note * Event Display: Inpatient Consult Note, Non-BH Authored Date: Cardiology * Event Display: Cardiovascular Result Scanned Authored Date: * Event Display: Device Check Office Visit Authored Date: * Event Display: Cardiovascular Result Scanned Authored Date: EKG study * Event Display: EKG Authored Date: Laboratory * Event Display: Non Lab Results Authored Date: * Event Display: Non BH Lab Results Authored Date: * Event Display: Non BH Lab Results Authored Date: * Event Display: Non BH Lab Results Authored Date: Cardiology Consult note * Event Display: Consult Note Cardiology Authored Date: * Event Display: Consult Note Cardiology Authored Date: Radiology * Event Display: CT Scan Chest, Non- BH Authored Date: * Event Display: NM Nuclear Medicine, Non-BH Authored Date: * Event Display: X-Ray Chest, Non- BH Authored Date: * Event Display: NM Nuclear Medicine, Non-BH Authored Date: * Event Display: X-Ray Chest, Non- BH Authored Date: * Event Display: IR Special Procedures, Non-BH Authored Date: * Event Display: MRI Head, Non- BH Authored Date: * Event Display: CT Scan Chest, Non- BH Authored Date: * Event Display: MRI Head, Non- BH Authored Date: * Event Display: MRI Head, Non- BH Authored Date: XR Chest Views * Event Display: X-Ray Chest Authored Date: Note * Obey Mcarthur MD: PERFORM Event Display: Discharge/Transfer Note Hospital Authored Date: This note will serve as an addendum to the D/C summary to follow from today by Dr. Asher. This patient was seen today with the medical team at 9:05 AM. She was seen again at 11:40 AM This note reflects information of which I was aware up until 1700 today. She was seen with a female guest who I believe might of been her mother. Patient had many questions about her hospital stay diagnoses that have been made and how she is very anxious and nervous about things having been missed and what she will do should she continue to have problems in the future. We answered all of her questions to the best of our abilities. Physical Exam for Today: General--Well-nourished, well-developed, in some emotional distress because of her anxiety over everything. Tearful at times. Somewhat sullen. She seemed a little brighter at the second visit when her guest was present. At that point she felt more ready to go home. Awake and alert Cooperative and conversant. Vital Signs--Stable, afebrile clear lungs heart -- rrr s1s2 normal. labs reviewed Today's white blood cell count was normal. H&H about the same. Platelet count good electrolytesnormal renal function stable sugars okay Cards f/u noted and appreciated. A/P-- Stable overall. See plans as noted. ok for d/c home today. Will need close f/u with her PCP. Please see above for the rest of the details of our assessments and plans. Patient Care team information Care Team Personnel Name: Vidhya Grace RN Position: [facility] RN Member Role: Primary Care Nurse Name: Sisi Hernandez MD Position: [facility] Physician - Primary Care Member Role: PCP Address: Address: [address] [place] [address]- Name: Lizzette To RN Position: [facility] SN RN Member Role: Primary Care Nurse Name: Karolina Adkins MD Position: [facility] Physician - Primary Care Member Role: Lifetime Consulting Physician Address: Address: [address] [place] [address] [facility] [address] Name: Isadora Godfrey RN Position: [facility] RN Member Role: Primary Care Nurse Name: Rossy Rowe RN Position: [facility] SN RN Member Role: Primary Care Nurse Name: Cindi Hayward RN Position: [facility] RN Member Role: Primary Care Nurse Name: Nicole Hernandez RN Position: [facility] RN Member Role: Primary Care Nurse Name: Zac Castillo RN Position: [facility] ED RN W/OE and Tasks Member Role: Primary Care Nurse Name: Bela Sherman RN Position: [facility] Manager Member Role: Primary Care Nurse Name: Jeanne Grande RN Position: [facility] RN Member Role: Primary Care Nurse Care Team Related Persons Name: BEAR TURNER Address: home [address] [place] [address] Name: BEAR TURNER SECONDARY Address: home [address] [place] [address] Name: ISATU ECKERT Address: [place] [address] Name: ISAAC VERDE PRIMARY Address: [address] Name: ADRY DURANT Name: PANCHO JEROME Address: [place] [address]
--- OUTSIDE RECORDS SUMMARY | 2024-06-01 13:40 | XMS_ITS | Continuity of Care Document ---
Author Organization [facility] Address [address] [place] [address]- Care Team Providers Care Well Services Operator Name Role Phone Sisi Hernandez MD Primary Care Physician Encounter [facility] [place] Date(s): 09/19/23 - 10/19/23 [facility] [address] [place], [place] [address] Allergies, Adverse Reactions, Alerts [...] Refills, Maintenance, 12/21/22 14:40:00 EDT, ER Capsule, [facility], Partial fill upon patient request if the prescription is for a schedule II opioid drug., 155, cm, 12/05/22 11:... Start Date: 12/21/22 Status: Ordered albuterol CFC free 90 mcg/inh inhalation aerosol 2, puffs, Inhalation, Every 6 hours, PRN, # 2 each, Refills 11, Tot. Refills 11, Maintenance, 02/15/22 13:12:00 EDT, Aerosol, Route to Pharmacy Electronically, [id number], [facility], ONLY ALBUTEROL HFA, CANCEL... Start Date: 02/15/22 Stop Date: 02/10/23 Status: Ordered Colace sodium 100 mg oral capsule 100 mg, 1, capsule, By Mouth, 2 times a day, PRN, # 180 capsule, Refills 3, Tot. Refills 3, Maintenance, for constipation, 08/09/23 14:49:00 EST, Route to Pharmacy Electronically, [facility], Partial fill upon patient request if [...] 6 Refills, Maintenance, 08/07/23 13:45:00 EST, Solution, [facility], 155, cm, 06/07/23 [...] 0 Refills, Maintenance, 02/15/22 13:10:00 EDT, Aerosol, [facility], new dosage, 155, [...] 07/31/22 11:03:00 EST, Route to Pharmacy Electronically, [facility], Partial fill upon patient request if the prescription is for a schedule... Start Date: 07/31/22 Status: Ordered LORazepam 0.5 mg oral tablet See Instructions, TAKE 1 TABLET BY MOUTH TWO TIMES A DAY NEEDED FOR ANXIETY, # 28 tablet, 2 Refills, Maintenance, 12/05/22 12:25:00 EDT, [facility], 155, cm, 12/05/22 11:40:00 EDT, [...] Maintenance, 08/01/22 6:06:00 EST, Tablet, [facility], Partial fill upon patient request if the prescription is for a schedule II opioid drug., 155, cm,... Start Date: 08/01/22 Status: Ordered Symbicort 160mcg/4.5mcg Inhaler 2, puffs, Inhalation, 2 times a day, # 3 each, Refills 5, Tot. Refills 5, Maintenance, 09/27/22 12:00:00 EST, Aerosol, Route to Pharmacy Electronically, [id number], [facility], replaces flovent inhaler, 155, cm,... [...] 07/31/22 11:03:00 EST, Route to Pharmacy Electronically, [facility], Partial fill upon patient request [...] Refills, Maintenance, 08/14/23 13:38:00 EST, Chew Tablet, [facility], Partial fill upon patient request if the prescription is for a schedule II opioid drug., 155, cm, 08/14/23 13:0... Start Date: 08/14/23 Status: Ordered Vitamin D3 50,000 intl units oral capsule 1 capsule = 1,250 mcg, By Mouth, Every week, # 13 capsule, 1 Refills, Maintenance, 05/17/23 17:07:00 EDT, Capsule, [facility], Partial fill upon patient request [...] Bilateral leg pain Confirmed Active *BHN/CCA/CC-[facility]- [phone]/Health correction, active care coordination Confirmed Active POTS (postural orthostatic tachycardia syndrome) Confirmed Active Medulloblastoma Confirmed Active RUQ pain Confirmed Active Tachy-sharmin syndrome Confirmed Active Social History Social History Type Response Smoking Status Never smoker; Tobacc o user in household: No entered on: 04/11/16 Sex Patient Care team information Care Team Personnel Name: Vidhya Grace RN Position: [facility] RN Member Role: Primary Care Nurse Name: Sisi Hernandez MD Position: [facility] Physician - Primary Care Member Role: PCP Address: Address: [address] [place] [address] Name: Lizzette To RN Position: [facility] SN RN Member Role: Primary Care Nurse Name: Karolina Adkins MD Position: [facility] Physician - Primary Care Member Role: Lifetime Consulting Physician Address: Address: [address] [place] [address] [facility] [address] Name: Isadora Godfrey RN Position: [facility] RN Member Role: Primary Care Nurse Name: Rossy Rowe RN Position: [facility] SN RN Member Role: Primary Care Nurse Name: Cindi Hayward RN Position: [facility] RN Member Role: Primary Care Nurse Name: Bela Mcmahon RN Position: [facility] Hospital Casing Cleaner Member Role: Primary Care Nurse Name: Nicole Hernandez RN Position: [facility] RN Member Role: Primary Care Nurse Name: Zac Castillo RN Position: [facility] ED RN W/OE and Tasks Member Role: Primary Care Nurse Name: Harjinder MONTELONGO, Jeanne Baker Position: [facility] RN Member Role: Primary Care Nurse Care Team Related Persons Name: BEAR TURNER Address: home [address] [place] [address] Name: BEAR TURNER SECONDARY Address: [address] Name: ISATU ECKERT Address: [place] [address] Name: ISAAC VERDE PRIMARY Address: [address] [address] Name: ADRY DURANT Name: PANCHO JEROME Address: [place] [address]
--- OUTSIDE RECORDS SUMMARY | 2024-06-01 13:40 | XMS_ITS | Continuity of Care Document ---
Author Organization [facility] Address [address] [place] [address]- Care Team Providers Care Chartered Wealth Manager Name Role Phone Mary KEATING, Sisi Almanza Primary Care Physician Encounter [facility] Date(s): 04/14/24 - 05/14/24 [facility] [address] [place], [place] [address] Allergies, Adverse Reactions, Alerts [...] 13:12:00 EDT, Aerosol, Route to Pharmacy Electronically, [id number], [facility], ONLY ALBUTEROL HFA, CANCEL... Start Date: 02/15/22 Stop Date: 02/10/23 Status: Ordered Colace sodium 100 mg oral capsule 100 mg, 1, capsule, By Mouth, 2 times a day, PRN, # 180 capsule, Refills 3, Tot. Refills 3, Maintenance, for constipation, 08/09/23 14:49:00 EST, Route to Pharmacy Electronically, [facility] [...] 11 Refills, Maintenance, 02/06/24 12:13:00 EDT, Solution, [facility], dose change, 155, cm, [...] mL, 5 Refills, Maintenance, 11/22/23 15:46:00 EDT, [facility], Partial fill upon patient request if... Start Date: 11/22/23 Status: Ordered ketoconazole 2% topical shampoo 1 application, Topically, Once, Apply 5 to 10 mL to wet scalp, lather, leave on 3 to 5 minutes, andrinse; apply weekly for 2 to 4 weeks., # 120 mL, 4 Refills, Soft Stop, 11/25/23 12:40:00 EDT, Shampoo, [facility], Partial fill upon pat... Start Date: 11/25/23 Status: Ordered LORazepam 0.5 mg oral tablet See Instructions, TAKE 1 TABLET BY MOUTH TWO TIMES A DAY NEEDED FOR ANXIETY, # 28 tablet, 2 Refills, Maintenance, 02/06/24 12:19:00 EDT, [facility], 155, cm, 02/06/24 [...] 0 Refills, Maintenance, 08/01/22 6:06:00 EST, Tablet, [facility], Partial fill upon patient request if the prescription is for a schedule II opioid drug., 155, cm,... Start Date: 08/01/22 Status: Ordered Symbicort 160mcg/4.5mcg Inhaler 2, puffs, Inhalation, 2 times a day, # 3 each, Refills 5, Tot. Refills 5, Maintenance, 02/06/24 12:14:00 EDT, Aerosol, Route to Pharmacy Electronically, [id number], [facility], replaces flovent inhaler, 155, [...] Refills, Maintenance, 08/14/23 13:38:00 EST, Chew Tablet, [facility], Partial fill upon patient request if the prescription is for a schedule II opioid drug., 155, cm, 08/14/23 13:0... Start Date: 08/14/23 Status: Ordered Vitamin D3 50,000 intl units oral capsule 1 capsule = 1,250 mcg, By Mouth, Every week, # 13 capsule, 1 Refills, Maintenance, 05/17/23 17:07:00 EDT, Capsule, [facility] [...] 0 Refills, Maintenance, 11/01/23 14:07:00 EDT, Capsule, [facility], Partial fill u... 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 Social History Social History Type Response Smoking Status Never smoker; Tobacc o user in household: No entered on: 04/11/16 Sex Patient Care team information Care Team Personnel Name: Vidhya Grace RN Position: [facility] RN Member Role: Primary Care Nurse Name: Sisi Hernandez MD Position: [facility] Physician - Primary Care Member Role: PCP Address: Address: [address] [place] [address] Name: Lizzette To RN Position: [facility] RN Member Role: Primary Care Nurse Name: Karolina Adkins MD Position: [facility] Physician - Primary Care Member Role: Lifetime Consulting Physician Address: Address: [address] [place] [address] [facility] [address] Name: Isadora Godfrey RN Position: [facility] RN Member Role: Primary Care Nurse Name: Rossy Rowe RN Position: [facility] SN RN Member Role: Primary Care Nurse Name: Cindi Hayward RN Position: [facility] RN Member Role: Primary Care Nurse Name: Nicole Hernandez RN Position: [facility] RN Member Role: Primary Care Nurse Name: Zac Catsillo RN Position: [facility] ED RN W/OE and Tasks Member Role: Primary Care Nurse Name: Bela Sherman RN Position: [facility] Hospital Blower Blast Furnace Member Role: Primary Care Nurse Name: Jeanne Grande RN Position: [facility] RN Member Role: Primary Care Nurse Care Team Related Persons Name: TURNERBEAR Address: home [address] [place] [id number] Name: BEAR TURNER SECONDARY Address: home [address] [place] [address] Name: ISATU ECKERT Address: [place] [address] Name: ISAAC VERDE PRIMARY Address: [address] [address] Name: ADRY DURANT Name: PANCHO JEROME Address: [place] [address]
--- OUTSIDE RECORDS SUMMARY | 2024-06-01 13:42 | XMS_ITS | Continuity of Care Document ---
Author Organization [facility] Address [address] [place] [address]- Care Team Providers Care Transportation Maintenance Specialist Name Role Phone Sisi Hernandez MD Primary Care Physician Encounter [facility] [place] Date(s): 11/16/21 - 12/16/21 [facility] [address] [place], [place] [address] Allergies, Adverse Reactions, Alerts Substance [...] 11/16/21 23:51:00 EDT, Route to Pharmacy Electronically, [facility], Partial fill upon patient request if the presc... Start Date: 11/16/21 Status: Ordered Adderall 5 mg oral tablet 1 tablet = 5 mg, By Mouth, 2 times a day, to take with long acting, # 60 tablet, 0 Refills, Maintenance, 10/25/21 15:46:00 EDT, Tablet, [facility], Partial [...] Refills, Maintenance, 10/25/21 15:46:00 EDT, ER Capsule, [facility], Partial fill upon patient r... Start Date: 10/25/21 Status: Ordered albuterol CFC free 90 mcg/inh inhalation aerosol 2, puffs, Inhalation, Every 6 hours, PRN, # 2 each, Refills 11, Tot. Refills 11, Maintenance, 10/05/21 9:52:00 EST, Aerosol, Route to Pharmacy Electronically, [id number], [facility], ONLY ALBUTEROL HFA, CANCEL V... [...] 10/03/21 12:18:00 EST, Solution, [facility], 155, cm, 09/27/21 15:08:00 EST, Height, 68.5, kg, 06/03/20 13:18:00 EST, Dry Weight Start Date: 10/03/21 Status: Ordered cyanocobalamin 1000 mcg/ml injectable solution 1 mL = 1,000 mcg, Intramuscular, Every 30 days, # 3 mL, 6 Refills, Maintenance, 06/15/20 11:56:00 EST, Solution, [facility], 155, cm, 06/03/20 13:15:00 EST, Height, 68.5, kg, 06/03/20 13:18:00 EST, Dry Weight Start Date: 06/15/20 Status: Ordered dilTIAZem 240 mg/24 hours oral tablet, extended release 1 tablet = 240 mg, By Mouth, Daily, FURTHER REFILLS BY HEALTH EDUCATION COORDINATOR, # 90 tablet, 0 Refills, Maintenance, 11/27/19 8:57:00 EDT, ER Tablet, [facility], 155, cm, 10/07/19 12:25:00 EDT, Height, 63, kg, 07/01/19 19:58:00 EST, Dry Weight Start Date: 11/27/19 Status: Ordered Flovent HFA 110 mcg/inh inhalation aerosol 2 puffs, Inhalation, 2 times a day, # 12 Gm, 0 Refills, Maintenance, 10/05/21 13:23:00 EST, Aerosol, [facility], Partial fill upon patient [...] 11/16/21 23:51:00 EDT, Route to Pharmacy Electronically, [facility] [...] Refills, Maintenance, 11/16/21 23:51:00 EDT, DIS Tablet, [facility], Partial [...] 3 Refills, Maintenance, 10/25/21 11:13:00 EDT, Capsule, [facility], Partial [...] Active Bilateral leg pain(Confirmed) Active *BHN/CCA/CC-[facility]- [phone]/Health senior care, active care coordination(Confirmed) Active POTS (postural orthostatic t achycardia syndrome)(Confirmed) Active Medulloblastoma(Confirmed) Active RUQ pain(Confirmed) Active Social History Social History Type Response Smoking Status Never smoker; Tobacc o user in household: No entered on: 04/11/16 Sex Female
--- OUTSIDE RECORDS SUMMARY | 2024-06-01 13:45 | XMS_ITS | Continuity of Care Document ---
Author Organization [facility] Address [address] [place] [address]- Care Team Providers Care Driver Examiner Name Role Phone Mary KEATING, Sisi Almanza Primary Care Physician [place] [facility] [place] - 05/[place]/24 [facility] [address] [place], [place] [address] Allergies, Adverse Reactions, Alerts Substance [...] 13:12:00 EDT, Aerosol, Route to Pharmacy Electronically, [id number], [facility], ONLY ALBUTEROL HFA, CANCEL... Start Date: 02/15/22 Stop Date: 02/10/23 Status: Ordered Colace sodium 100 mg oral capsule 100 mg, 1, capsule, By Mouth, 2 times a day, PRN, # 180 capsule, Refills 3, Tot. Refills 3, Maintenance, for constipation, 08/09/23 14:49:00 EST, Route to Pharmacy Electronically, [facility] [...] 11 Refills, Maintenance, 02/06/24 12:13:00 EDT, Solution, [facility], dose change, 155, cm, 02/06/24 [...] 11:03:00 EST, Route to Pharmacy Electronically, [facility] [...] 5 Refills, Maintenance, 11/22/23 15:46:00 EDT, [facility], Partial fill upon patient request if... Start Date: 11/22/23 Status: Ordered ketoconazole 2% topical shampoo 1 application, Topically, Once, Apply 5 to 10 mL to wet scalp, lather, leave on 3 to 5 minutes, andrinse; apply weekly for 2 to 4 weeks., # 120 mL, 4 Refills, Soft Stop, 11/25/23 12:40:00 EDT, Shampoo, [facility], Partial fill upon pat... Start Date: 11/25/23 Status: Ordered LORazepam 0.5 mg oral tablet See Instructions, TAKE 1 TABLET BY MOUTH TWO TIMES A DAY NEEDED FOR ANXIETY, # 28 tablet, 2 Refills, Maintenance, 02/06/24 12:19:00 EDT, [facility], 155, cm, 02/06/24 11:49:00 [...] Refills, Maintenance, 08/01/22 6:06:00 EST, Tablet, [facility], Partial fill upon patient request if the prescription is for a schedule II opioid drug., 155, cm,... Start Date: 08/01/22 Status: Ordered Symbicort 160mcg/4.5mcg Inhaler 2, puffs, Inhalation, 2 times a day, # 3 each, Refills 5, Tot. Refills 5, Maintenance, 02/06/24 12:14:00 EDT, Aerosol, Route to Pharmacy Electronically, [id number], [facility], replaces flovent inhaler, 155, cm,... [...] 11:03:00 EST, Route to Pharmacy Electronically, [facility] [...] Maintenance, 08/14/23 13:38:00 EST, Chew Tablet, [facility], Partial fill upon patient request if the prescription is for a schedule II opioid drug., 155, cm, 08/14/23 13:0... Start Date: 08/14/23 Status: Ordered Vitamin D3 50,000 intl units oral capsule 1 capsule = 1,250 mcg, By Mouth, Every week, # 13 capsule, 1 Refills, Maintenance, 05/17/23 17:07:00 EDT, Capsule, [facility], [...] Refills, Maintenance, 11/01/23 14:07:00 EDT, Capsule, [facility], Partial fill u... 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 Social History Social History Type Response Smoking Status Never smoker; Tobacc o user in household: No entered on: 04/11/16 Sex Patient Care team information Care Team Personnel Name: Vidhya Grace RN Position: [facility] RN Member Role: Primary Care Nurse Name: Sisi Hernandez MD Position: [facility] Physician - Primary Care Member Role: PCP Address: Address: [address] [place] [address] Name: Lizzette To RN Position: [facility] RN Member Role: Primary Care Nurse Name: Karolina Adkins MD Position: [facility] Physician - Primary Care Member Role: Lifetime Consulting Physician Address: Address: [address] [place] [address] [facility] [address] Name: Isadora Godfrey RN Position: [facility] RN Member Role: Primary Care Nurse Name: Rossy Rowe RN Position: [facility] SN RN Member Role: Primary Care Nurse Name: Cindi Hayward RN Position: [facility] RN Member Role: Primary Care Nurse Name: Nicole Hernandez RN Position: [facility] RN Member Role: Primary Care Nurse Name: Zac Castillo RN Position: [facility] ED RN W/OE and Tasks Member Role: Primary Care Nurse Name: Bela Sherman RN Position: [facility] Hospital Grab Operator Member Role: Primary Care Nurse Name: Jeanne rGande RN Position: [facility] RN Member Role: Primary Care Nurse Care Team Related Persons Name: TURNERBEAR Address: home [address] [place] [address] Name: BEAR TURNER SECONDARY Address: home [address] [place] [address] Name: ISATU ECKERT Address: [place] [address] Name: ISAAC VERDE PRIMARY Address: [address] [address] Name: ADRY DURANT Name: PANCHO JEROME Address: [place] [address]
--- OUTSIDE RECORDS SUMMARY | 2024-06-01 13:46 | XMS_ITS | Continuity of Care Document ---
Author Organization [facility] Address [address] [place] [address]- Care Team Providers Care Tailer Out Name Role Phone Mray KEATING, Sisi Almanza Primary Care Physician Encounter [facility] [place] Date(s): 04/24/24 - 05/24/24 [facility] [address] [place], [place] [address] Allergies, Adverse Reactions, Alerts Substance [...] 13:12:00 EDT, Aerosol, Route to Pharmacy Electronically, [id number], [facility], ONLY ALBUTEROL HFA, CANCEL... Start Date: 02/15/22 Stop Date: 02/10/23 Status: Ordered Colace sodium 100 mg oral capsule 100 mg, 1, capsule, By Mouth, 2 times a day, PRN, # 180 capsule, Refills 3, Tot. Refills 3, Maintenance, for constipation, 08/09/23 14:49:00 EST, Route to Pharmacy Electronically, [facility], Partial fill upon patient [...] 11 Refills, Maintenance, 02/06/24 12:13:00 EDT, Solution, [facility], dose change, 155, cm, [...] Route to Pharmacy Electronically, [facility], Partial fill upon patient request if the prescription is for a schedule... Start Date: 07/31/22 Status: Ordered ketoconazole 1% topical shampoo See Instructions, Apply 5 to 10 mL to wet scalp, lather, leave on 3 to 5 minutes, and rinse; apply twice weekly for 2 to 4 weeks., # 200 mL, 5 Refills, Maintenance, 11/22/23 15:46:00 EDT, [facility], Partial fill upon patient request if... Start Date: 11/22/23 Status: Ordered ketoconazole 2% topical shampoo 1 application, Topically, Once, Apply 5 to 10 mL to wet scalp, lather, leave on 3 to 5 minutes, andrinse; apply weekly for 2 to 4 weeks., # 120 mL, 4 Refills, Soft Stop, 11/25/23 12:40:00 EDT, Shampoo, [facility], Partial fill upon pat... Start Date: 11/25/23 Status: Ordered LORazepam 0.5 mg oral tablet See Instructions, TAKE 1 TABLET BY MOUTH TWO TIMES A DAY NEEDED FOR ANXIETY, # 28 tablet, 2 Refills, Maintenance, 02/06/24 12:19:00 EDT, [facility], 155, cm, 02/06/24 [...] 0 Refills, Maintenance, 08/01/22 6:06:00 EST, Tablet, [facility], Partial fill upon patient request if the prescription is for a schedule II opioid drug., 155, cm,... Start Date: 08/01/22 Status: Ordered Symbicort 160mcg/4.5mcg Inhaler 2, puffs, Inhalation, 2 times a day, # 3 each, Refills 5, Tot. Refills 5, Maintenance, 02/06/24 12:14:00 EDT, Aerosol, Route to Pharmacy Electronically, [id number], [facility], replaces flovent inhaler, [...] Route to Pharmacy Electronically, [facility], Partial fill upon patient [...] Refills, Maintenance, 08/14/23 13:38:00 EST, Chew Tablet, [facility], Partial fill upon patient request if the prescription is for a schedule II opioid drug., 155, cm, 08/14/23 13:0... Start Date: 08/14/23 Status: Ordered Vitamin D3 50,000 intl units oral capsule 1 capsule = 1,250 mcg, By Mouth, Every week, # 13 capsule, 1 Refills, Maintenance, 05/17/23 17:07:00 EDT, Capsule, [facility], Partial fill upon patient [...] 0 Refills, Maintenance, 11/01/23 14:07:00 EDT, Capsule, [facility], Partial fill u... Start [...] Confirmed 01/23/16 Active Memory change Confirmed Active *N/CCA/CC-[facility]- [phone]/Health fpc, active care coordination Confirmed Active POTS [...] Name: Sisi Hernandez MD Position: [facility] Physician - Primary Care Member Role: PCP Address: Address: [address] [place] [address] Name: Lizzette To RN Position: [facility] RN Member Role: Primary Care Nurse Name: Karolina Adkins MD Position: [facility] Physician - Primary Care Member Role: Lifetime Consulting Physician Address: Address: [address] [place] [address] [facility] [address] Name: Isadora Godfrey RN Position: S RN Member Role: Primary Care Nurse Name: Rossy Rowe RN Position: [facility] SN RN Member Role: Primary Care Nurse Name: Cindi Hayward RN Position: [facility] RN Member Role: Primary Care Nurse Name: Nicole Hernandez RN Position: [facility] RN Member Role: Primary Care Nurse Name: Zac Castillo RN Position: [facility] ED RN W/OE and Tasks Member Role: Primary Care Nurse Name: Bela Sherman RN Position: [facility] Hospital Steel Cutter Member Role: Primary Care Nurse Name: Jeanne Grande RN Position: [facility] RN Member Role: Primary Care Nurse Care Team Related Persons Name: TURNERBEAR Address: home [address] [place] [address] Name: BEAR TURNER SECONDARY Address: home [address] [place] [address] Name: ISATU ECKERT Address: [place] [address] Name: ISAAC VERDE PRIMARY Address: home [address] [place] [address] Name: ADRY DURANT Name: PANCHO JEROME Address: [place] [address]
== END 2024-06-01 14:16 | disposition home or self-care (01) ==
LOC: HO.HGI 13:32
PROVIDERS: PCP Internal Medicine; Visit Provider Internal Medicine Gastroenterology
DX: D86.9 Sarcoidosis, unspecified (principal); M79.10 Myalgia, unspecified site
CPT/HCPCS: 99214

== ENCOUNTER 2024-06-01 13:32 | Outpatient (REF) | payer OTHER, SELFPAY ==
[2024-06-01 15:50] LABS: Basophils Percent Auto 0.7 % (0-2); Eosinophils Absolute Auto 0.1 X10*3/uL (0.0-0.4); Eosinophils Percent Auto 2.3 % (0-4); Hematocrit 39.2 % (37.0-47.0); Hemoglobin 13.4 g/dl (12.0-16.0); Imm Gran Abs Auto 0.01 X10*3/uL (0.00-0.03); Imm Gran Pct Auto 0.2 % (0.0-0.4); Lymphocytes Absolute Auto 1.5 X10*3/uL (1.2-4.9); Lymphocytes Percent Auto 33.7 % (20-40); MANUAL DIFF FLAG NO; Mean Corpuscular HGB Conc 34.2 g/dl (31.0-35.0); Mean Corpuscular Volume 84.8 fL (80.0-98.0); Mean Platelet Volume 12.1 fL (9.4-12.3); Monocytes Absolute Auto 0.3 X10*3/uL (0.1-1.2); Monocytes Percent Auto 7.4 % (2-11); Neutrophils Absolute Auto 2.4 x10*3/uL (2.0-8.3); Neutrophils Percent Auto 55.7 % (45-73); Platelet Count 182 X10*3/uL (160-400); Red Blood Count 4.62 X10*6/uL (4.20-5.50); White Blood Count 4.3 X10*3/uL (4.8-10.8)
[2024-06-01 15:59] LABS: D Dimer High Sensitivity 228 NG/ML
[2024-06-01 16:27] LABS: Erythrocyte Sedimentation Rate 12 MM/HR (0-20)
[2024-06-01 16:51] LABS: Parathyroid Hormone Intact 88.1 pg/mL (8.7-77.1)
[2024-06-01 16:52] LABS: Anion Gap 14 (12-20); Blood Urea Nitrogen 13 mg/dL (9-16); Calcium 10.2 mg/dL (8.4-10.2); Carbon Dioxide 22 mmol/L (22-29); Chloride 108 mmol/L (96-108); Estimated Glomerular Filt Rate > 60; Glucose Random 68 mg/dL (60-115); Phosphorus 2.8 mg/dL (2.7-4.5); Sodium 140 mmol/L (135-145)
[2024-06-01 17:07] LABS: Vitamin D 25-OH Total 34.4 ng/mL (>30)
[2024-06-03 14:23] LABS: Calcium, Ionized 5.3 mg/dL (4.7-5.5)
[2024-06-04 14:42] LABS: Anti DNA DS Antibody <1 IU/mL; JO 1 Antibody <1.0 NEG AI (<1.0 NEG)
[2024-06-04 18:57] LABS: Immunoglobulin E 695 kU/L (<OR=114)
[2024-06-05 00:48] LABS: Arsenic, Blood <3 mcg/L (<23); Lead, Blood <1.0 mcg/dL (<3.5); Mercury, Blood <4 mcg/L (<=10)
[2024-06-06 10:59] LABS: VITAMIN D (1,25 OH) D3 63 pg/mL; Vit D (1,25-Dihydroxy) Total 63 pg/mL (18-72); Vitamin D (1,25 OH) D2 <8 pg/mL
[2024-06-09 01:24] LABS: Aldolase 8.3 U/L (<=8.1)
[2024-06-09 09:13] LABS: Anti Nuclear Antibody Screen NEGATIVE (NEGATIVE)
[2024-06-09 16:09] LABS: Histamine Plasma <1.5 ng/mL (< OR = 1.8)
[2024-06-17 00:38] LABS: Parathyroid Hormone Related Pr 6 pg/mL (11-20)
== END 2024-06-01 13:33 | disposition home or self-care (01) ==
LOC: HO.LAB 13:32
PROVIDERS: Absent Provider Hospitalist; PCP Internal Medicine; Visit Provider Internal Medicine Gastroenterology
DX: M79.10 Myalgia, unspecified site (principal); D86.9 Sarcoidosis, unspecified; E83.52 Hypercalcemia; J45.40 Moderate persistent asthma, uncomplicated; R07.9 Chest pain, unspecified; G90.A Postural orthostatic tachycardia syndrome [POTS]; Z95.0 Presence of cardiac pacemaker
CPT/HCPCS: 36415; 80048; 82085; 82175; 82306; 82330; 82550; 82652; 82785; 83088; 83519; 83655; 83825; 83970; 84100; 85025; 85379; 85652; 86038; 86225; 86235; 99212

== ENCOUNTER → 2024-07-13 13:33 | Outpatient (BNVA) | payer OTHER, SELFPAY | PROVIDERS: PCP Internal Medicine; Visit Provider Internal Medicine Gastroenterology | DX: K59.09 Other constipation (principal); K21.9 Gastro-esophageal reflux disease without esophagitis; K75.81 Nonalcoholic steatohepatitis (NASH); R10.9 Unspecified abdominal pain; M79.10 Myalgia, unspecified site | CPT/HCPCS: 99212 ==

== ENCOUNTER 2024-08-06 15:40 | Outpatient (REF) | payer OTHER, SELFPAY ==
--- OUTSIDE RECORDS SUMMARY | 2024-08-06 16:58 | XMS_ITS | Continuity of Care Document ---
Author Organization [facility] Address [address] [place] [address]- Care Team Providers Care Bleach Boiler Packer Name Role Phone Mary KEATING, Sisi Almanza Primary Care Physician Encounter [facility] [place] Date(s): 07/06/24 - 08/05/24 [facility] [address] [place], [place] [address] Encounter Type: Triage Allergies, Adverse Reactions, Alerts Substance Criticality Severity Reaction Reaction Severity Status Sertraline Hydrochloride skin burning [...] Refills 1, Tot. Refills 1, Maintenance, 09/11/23 3:45:00 PM EST, Instructions Replace Required Details, Route to Pharmacy Electronically, [facility], 155, cm, 08/29/23 9:17:00 EST, Height, 68.3, kg, 06/07/23 20:58:00 EST, Dry Weight Start Date: 09/11/23 Status: Ordered Quantity: 30.0 Unit: tablet Repeat number: 2 Adderall 20 mg oral tablet 1 tablet = 20 mg, By Mouth, 2 times a day, 0 Refills, Maintenance, 02/04/24 3:30:00 PM EDT, Partial fill upon patient request if the prescription is for a schedule II opioid drug. Start Date: 02/04/24 Status: Ordered Repeat number: 1 albuterol CFC free 90 mcg/inh inhalation aerosol 2, puffs, Inhalation, Every 6 hours, PRN, # 2 each, Refills 11, Tot. Refills 11, Maintenance, 02/15/22 1:12:00 PM EDT, Aerosol, Route to Pharmacy Electronically, [id number], [facility], ONLY ALBUTEROL HFA, CANCEL VENTOLIN RX, 155, cm, 12/08/21 10:46:00 EDT, Height, 68.5, kg, 06/03/20 13:18:00 EST, Dry Weight Start Date: 02/15/22 Stop Date: 02/10/23 Status: Ordered Quantity: 2.0 Unit: each Repeat number: 12 aluminum chloride hexahydrate 20% topical solution 1 application, Topically, Daily at bedtime, PRN as needed for excessive sweating, # 60 mL, 3 Refills, Maintenance, 06/14/24 3:48:00 PM EST, Solution, [facility], Partial fill upon patient request if the prescription is for a schedule II opioid drug., 1 application Topically Daily at be dtime,PRN:as needed for excessive sweating, 155, cm, 02/06/24 11:49:00 EDT, Height, 71, kg, 02/06/24 11:49:00 EDT, Dry Weight Start Date: 06/14/24 Status: Ordered Quantity: 60.0 Unit: mL Repeat number: 4 Colace sodium 100 mg oral capsule 100 mg, 1, capsule, By Mouth, 2 times a day, PRN, # 180 capsule, Refills 3, Tot. Refills 3, Maintenance, for constipation, 08/09/23 2:49:00 PM EST, Route to Pharmacy Electronically, [facility], Partial fill upon patient request if the prescription is for a schedule II opioid drug., 155, cm, 06/07/23 20:58:00 EST, Height, 68.3, kg, 06/07/23 20:58:00 EST, Dry Weight Start Date: 08/09/23 Status: Ordered Quantity: 180.0 Unit: capsule Repeat number: 4 Compression Stockings See Instructions, # 2 units, Refills 11, Tot. Refills 11, Maintenance, KNEE HIGH COMPRESSION STOCKINGS 15-20mm HG use daily 2 pairs every 3 months Dx: POTS syndrome R00.00 HEIGHT 154CM WEIGHT 68KG LIFETIME USE, 06/05/19 4:03:58 PM EST, Compound Start Date: 06/05/19 Status: Ordered Quantity: 2.0 Unit: Units Repeat number: 12 cyanocobalamin 1000 mcg/ml injectable solution 1 mL = 1,000 mcg, Intramuscular, Every 14 days, # 7 mL, 11 Refills, Maintenance, 02/06/24 12:13:00 PM EDT, Solution, [facility], dose change, 155, cm, 02/06/24 11:49:00 EDT, Height, 71, kg, 02/06/24 11:49:00 EDT, Dry Weight Start Date: 02/06/24 Status: Ordered Quantity: 7.0 Unit: mL Repeat number: 12 esomeprazole 40 mg oral enteric coated capsule TAKE 1 CAPSULE BY MOUTH EVERY DAY Start Date: 07/12/22 Status: Ordered Repeat number: 1 Freestyle Lancets See Instructions, # 200 each, Refills 5, Tot. Refills 5, Maintenance, dx: e16.2 use three times perday hypoglycemia, 03/04/20 12:29:00 PM EDT, Supply, 155, cm, 10/07/19 12:25:00 EDT, Height, 63, kg, 07/01/19 19:58:00 EST, Dry Weight Start Date: 03/04/20 Stop Date: 08/31/20 Status: Ordered Quantity: 200.0 Unit: each Repeat number: 6 Freestyle Lite Monitor See Instructions, # 1 Unknown, Maintenance, dx:e16.2 hypoglycemia use three times per day, 03/04/20 12:28:00 PM EDT, Compound, 155, cm, 10/07/19 12:25:00 EDT, Height, 63, kg, 07/01/19 19:58:00 EST, DryWeight Start Date: 03/04/20 Status: Ordered Quantity: 1.0 Unit: Unknown Repeat number: 1 Freestyle Test Strips See Instructions, # 200 each, Refills 5, Tot. Refills 5, Maintenance, dx: e16.2 use three times perday hypoglycemia, 03/04/20 12:29:00 PM EDT, Supply, 155, cm, 10/07/19 12:25:00 EDT, Height, 63, kg, 07/01/19 19:58:00 EST, Dry Weight Start Date: 03/04/20 Stop Date: 08/31/20 Status: Ordered Quantity: 200.0 Unit: each Repeat number: 6 ibuprofen 800 mg oral tablet 800 mg, 1, tablet, By Mouth, Every 8 hours, # 30 tablet, Refills 0, Tot. Refills 0, Maintenance, 07/31/22 11:03:00 AM EST, Route to Pharmacy Electronically, [facility], Partial fill upon patient request if the prescription is for a schedule II opioid drug., 155, cm, 07/31/22 7:06:00 EST, Height, 65.8, kg, 07/25/22 12:09:00 EST, Dry Weight Start Date: 07/31/22 Status: Ordered Quantity: 30.0 Unit: tablet Repeat number: 1 ketoconazole 1% topical shampoo See Instructions, Apply 5 to 10 mL to wet scalp, lather, leave on 3 to 5 minutes, and rinse; apply twice weekly for 2 to 4 weeks., # 200 mL, 5 Refills, Maintenance, 11/22/23 3:46:00 PM EDT, [facility], Partial fill upon patient request if the prescription is for a schedule II opioid drug., Apply 5 to 10 mL to wet scalp, lather, leave on 3 to 5 minutes, and rinse; apply twice weekly for 2 to 4 weeks., 155, cm, 11/22/23 14:55:00 EDT, Height, 68, kg, 10/09/23 14:19:00 EDT, Dry Weight Start Date: 11/22/23 Status: Ordered Quantity: 200.0 Unit: mL Repeat number: 6 ketoconazole 2% topical shampoo 1 application, Topically, Once, Apply 5 to 10 mL to wet scalp, lather, leave on 3 to 5 minutes, andrinse; apply weekly for 2 to 4 weeks., # 120 mL, 4 Refills, Soft Stop, 11/25/23 12:40:00 PM EDT, Shampoo, [facility] 3, Partial fill upon patient request if the prescription is for a schedule II opioid drug., 1 application Topically Once,Instr:Apply 5 to 10 mL to wet scalp, lather, leave on 3 to 5 minutes, and rinse; apply weekly for 2 to 4 weeks., 155, cm, 11/22/23 14:55:00 EDT, Height, 68, kg, 10/09/23 14:19:00 EDT, Dry Weight Start Date: 11/25/23 Status: Ordered Quantity: 120.0 Unit: mL Repeat number: 5 LORazepam 0.5 mg oral tablet See Instructions, TAKE 1 TABLET BY MOUTH TWO TIMES A DAY NEEDED FOR ANXIETY, # 28 tablet, 2 Refills, Maintenance, 02/06/24 12:19:00 PM EDT, [facility], 155, cm, 02/06/24 11:49:00 EDT,Height, 71, kg, 02/06/24 11:49:00 EDT, Dry Weight Start Date: 02/06/24 Status: Ordered Quantity: 28.0 Unit: tablet Repeat number: 3 Metoprolol Tartrate 50 mg oral tablet 0 Refills, Maintenance, 03/04/20 9:58:00 AM EDT Start Date: 03/04/20 Status: Ordered Repeat number: 1 nitroglycerin 0.4 mg sublingual tablet 1 tablet = 0.4 mg, Sublingual, Every 5 minutes, PRN for chest pain, # 100 tablet, 0 Refills, Maintenance, 12/10/17 3:58:08 AM EDT, Tablet Start Date: 12/10/17 Status: Ordered Quantity: 100.0 Unit: tablet Repeat number: 1 PEG-3350 with Electrolytes Lemon (Eqv-NuLYTELY) oral powder for reconstitution MIX AND DRINK 240 ML BY MOUTH EVERY 10 MINUTES UNTIL FECAL EFFLUENT IS CLEAR Start Date: 05/15/23 Status: Ordered Repeat number: 1 senna - oral tablet 2 tablet, By Mouth, Daily at bedtime, PRN for constipation, # 80 tablet, 0 Refills, Maintenance, 08/01/22 6:06:00 AM EST, Tablet, [facility], Partial fill upon patient request if the prescription is for a schedule II opioid drug., 155, cm, 07/31/22 23:48:00 EST, Height, 71.2, kg, 07/31/22 16:42:00 EST, Dry Weight Start Date: 08/01/22 Status: Ordered Quantity: 80.0 Unit: tablet Repeat number: 1 Symbicort 160mcg/4.5mcg Inhaler 2, puffs, Inhalation, 2 times a day, # 3 each, Refills 5, Tot. Refills 5, Maintenance, 02/06/24 12:14:00 PM EDT, Aerosol, Route to Pharmacy Electronically, [id number], [facility], replaces flovent inhaler, 155, cm, 02/06/24 11:49:00 EDT, Height, 71, kg, 02/06/24 11:49:00 EDT, Dry Weight Start Date: 02/06/24 Status: Ordered Quantity: 3.0 Unit: each Repeat number: 6 syringe and needles syringe and needles, See Instructions, # 12 Unknown, Refills 3, Tot. Refills 3, Maintenance, syringe 3cc needles 25 g X 5/8 inches for use with b12, 03/04/20 9:54:00 AM EDT, Compound, 155, cm, 10/07/2011:25:00 EDT, Height, 63, kg, 07/01/19 19:58:00 EST, Dry Weight Start Date: 03/04/20 Status: Ordered Quantity: 12.0 Unit: Unknown Repeat number: 4 Tylenol 325 mg oral tablet 975 mg, 3, tablet, By Mouth, Every 6 hours, PRN, # 50 tablet, Refills 0, Tot. Refills 0, Maintenance, for pain, 07/31/22 11:03:00 AM EST, Route to Pharmacy Electronically, [facility], Partial fill upon patient request if the prescription is for a schedule II opioid drug., 155, cm, 07/31/22 7:06:00 EST, Height, 65.8, kg, 07/25/22 12:09:00 EST, Dry Weight Start Date: 07/31/22 Status: Ordered Quantity: 50.0 Unit: tablet Repeat number: 1 Tylenol 8 Hour Caplet = 1,300 mg, By Mouth, Every 8 hours, 0 Refills, Maintenance, 10/09/23 2:19:00 PM EDT, Partial fill upon patient request if the prescription is for a schedule II opioid drug. Start Date: 10/09/23 Status: Ordered Repeat number: 1 verapamil 240 mg/12 hours oral tablet, extended release TAKE 1 TABLET BY MOUTH DAILY. Start Date: 02/05/23 Status: Ordered Repeat number: 1 Vitamin C 250 mg oral tablet, chewable 1 tablet = 250 mg, Chew, 2 times a day, # 180 tablet, 3 Refills, Maintenance, 08/14/23 1:38:00 PM EST, Chew Tablet, [facility], Partial fill upon patient request if the prescription is for a schedule II opioid drug., 155, cm, 08/14/23 13:04:00 EST, Height, 68.3, kg, 06/07/23 20:58:00 EST, Dry Weight Start Date: 08/14/23 Status: Ordered Quantity: 180.0 Unit: tablet Repeat number: 4 Vitamin D3 50,000 intl units oral capsule 1 capsule = 1,250 mcg, By Mouth, Every week, # 13 capsule, 1 Refills, Maintenance, 05/17/23 5:07:00PM EDT, Capsule, [facility], Partial fill upon patient request if the prescription isfor a schedule II opioid drug., 155, cm, 05/15/23 13:46:00 EDT, Height, 68.3, kg, 05/15/23 13:46:00EDT, Dry Weight Start Date: 05/17/23 Status: Ordered Quantity: 13.0 Unit: capsule Repeat number: 2 Vyvanse 10 mg oral capsule See Instructions, start 1 capsule By Mouth Daily in AM. Increase to 2 capsules as needed (Name brand only because generic not available), # 60 capsule, 0 Refills, Maintenance, 11/01/23 2:07:00 PM EDT, Capsule, [facility], Partial fill upon patient request if the prescription is for a schedule II opioid drug., 155, cm, 11/01/23 10:16:00 EDT, Height, 68, kg, 10/09/23 14:19:00 EDT, Dry Weight Start Date: 11/01/23 Status: Ordered Quantity: 60.0 Unit: capsule Repeat number: 1 Problem List Condition Confirmation Course Effective Dates [...] Confirmed 01/23/16 Active Memory change Confirmed Active *N/CCA/CC-[facility]- [phone]/Health snf, active care coordination Confirmed Active POTS (postural orthostatic tachycardia syndrome) Confirmed Active 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 Social History Social History Type Response Smoking Status Never smoker; Tobacc o user in household: No entered on: 04/11/16 Sex Sex Representation Female (finding) Patient Care team information Care Team Personnel Name: Vidhya Grace RN Position: [facility] RN Member Role: Primary Care Nurse Name: Sisi Hernandez MD Position: [facility] Physician - Primary Care Member Role: PCP Address: [address], [place] [address]- Telecom: Name: Lizzette To RN Position: [facility] SN RN Member Role: Primary Care Nurse Name: Karolina Adkins MD Position: [facility] Physician - Primary Care Member Role: Lifetime Consulting Physician Address: [address] [facility] [place] [address]- [place] Telecom: Name: Isadora Godfrey RN Position: [facility] RN Member Role: Primary Care Nurse Name: Rossy Rowe RN Position: [facility] SN RN Member Role: Primary Care Nurse Name: Cindi Hayward RN Position: [facility] RN Member Role: Primary Care Nurse Name: Nicole Hernandez RN Position: [facility] RN Member Role: Primary Care Nurse Name: Zac Castillo RN Position: [facility] ED RN W/OE and Tasks Member Role: Primary Care Nurse Name: Bela Sherman RN Position: [facility] Hospital Metal Weather Stripper Member Role: Primary Care Nurse Name: Jeanne Grande RN Position: [facility] RN Member Role: Primary Care Nurse Care Team Related Persons Name: BEAR TURNER Name: BEAR TURNER SECONDARY Name: ISATU ECKERT Name: ISAAC VERDE PRIMARY Name: ADRY DURANT Name: PANCHO JEROME Insurance Providers Guarantor name: ANSELMO TURNER Health Plan Information #: 1 Payer: [facility] Member Number: NA Policy Number: NA Group Number: NA
--- OUTSIDE RECORDS SUMMARY | 2024-08-06 16:58 | XMS_ITS | Continuity of Care Document ---
Author Organization [facility] Address [address] [place] [address]- Care Team Providers Care Collect On Delivery Clerk Name Role Phone Mary KEATING, Sisi Almanza Primary Care Physician [place] [facility] [place]24 [place]/24 [facility] [address] [place], [place] [address] Encounter Type: Triage Allergies, Adverse Reactions, Alerts Substance Criticality Severity Reaction Reaction Severity Status cefoxitin Cough Tightness in [...] Replace Required Details, Route to Pharmacy Electronically, [facility] 3, 155, cm, 08/29/23 9:17:00 EST, Height, [...] PM EDT, Aerosol, Route to Pharmacy Electronically, [id number], [facility], ONLY ALBUTEROL HFA, CANCEL [...] Refills, Maintenance, 06/14/24 3:48:00 PM EST, Solution, [facility], Partial [...] 2:49:00 PM EST, [facility]ically, [facility] Refills, Maintenance, 02/06/24 12:13:00 PM EDT, Solution, [facility], dose change, 155, cm, [...] 11:03:00 AM EST, [facility] Electronically, [facility] 5 Refills, Maintenance, 11/22/23 3:46:00 PM EDT, [facility] 3, Partial fill upon patient [...] Soft Stop, 11/25/23 12:40:00 PM EDT, Shampoo, [facility] 3, Partial fill upon patient [...] 2 Refills, Maintenance, 02/06/24 12:19:00 PM EDT, [facility] 3, 155, cm, 02/06/24 11:49:00 EDT,Height, [...] Refills, Maintenance, 08/01/22 6:06:00 AM EST, Tablet, [facility], Partial fill upon patient request [...] PM EDT, Aerosol, Route to Pharmacy Electronically, [id number], [facility], replaces flovent inhaler, 155, [...] 11:03:00 AM EST, Route to Pharmacy Electronically, [facility], Partial fill upon patient request [...] Maintenance, 08/14/23 1:38:00 PM EST, Chew Tablet, [facility] 3, Partial fill upon patient request [...] 1 Refills, Maintenance, 05/17/23 5:07:00PM EDT, Capsule, [facility], [...] Refills, Maintenance, 11/01/23 2:07:00 PM EDT, Capsule, [facility], [...] Active Memory change Confirmed Active *N/CCA/CC-Matias Vela- [phone]/Health fdc, active care coordination Confirmed Active POTS (postural orthostatic tachycardia syndrome) Confirmed Active 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 Social History Social History Type Response Smoking Status Never smoker; Tobacc o user in household: No entered on: 04/11/16 Sex Sex Representation Female (finding) Patient Care team information Care Team Personnel Name: Vidhya Grace RN Position: [facility] RN Member Role: Primary Care Nurse Name: Sisi Hernandez MD Position: [facility] Physician - Primary Care Member Role: PCP Address: [address] [address]- Telecom: Name: Lizzette To RN Position: [facility] SN RN Member Role: Primary Care Nurse Name: Karolina Adkins MD Position: [facility] Physician - Primary Care Member Role: Lifetime Consulting Physician Address: [address] [facility] [place] [address]- [place] Telecom: Name: Isadora Godfrey RN Position: [facility] RN Member Role: Primary Care Nurse Name: Rossy Rowe RN Position: [facility] SN RN Member Role: Primary Care Nurse Name: Cindi Hayward RN Position: [facility] RN Member Role: Primary Care Nurse Name: Nicole Hernandez RN Position: [facility] RN Member Role: Primary Care Nurse Name: Zac Castillo RN Position: [facility] ED RN W/OE and Tasks Member Role: Primary Care Nurse Name: Bela Sherman RN Position: [facility] Hospital Equipment Operator Wage Hand Member Role: Primary Care Nurse Name: Jeanne Grande RN Position: [facility] RN Member Role: Primary Care Nurse Care Team Related Persons Name: BEAR TURNER Name: BEAR TURNER SECONDARY Name: ISATU ECKERT Name: ISAAC VERDE PRIMARY Name: ADRY DURANT Name: PANCHO JEROME Insurance Providers Guarantor name: ANSELMO TURNER Health Plan Information #: 1 Payer: [facility] Member Number: NA Policy Number: NA Group Number: NA
--- OUTSIDE RECORDS SUMMARY | 2024-08-06 16:58 | XMS_ITS | Continuity of Care Document ---
Author Organization [facility] Address [address] [place] [address]- Care Team Providers Care Motor Carrier Inspector Name Role Phone Mary KEATING, Sisi Almanza Primary Care Physician Encounter [facility] [place] Date(s): 06/19/24 - 07/19/24 [facility] [address] [place], [place] [address] Encounter Type: Triage Allergies, Adverse Reactions, [...] Replace Required Details, Route to Pharmacy Electronically, [facility] 3, 155, cm, 08/29/23 9:17:00 EST, [...] PM EDT, Aerosol, Route to Pharmacy Electronically, [id number], [facility], ONLY ALBUTEROL HFA, CANCEL [...] Refills, Maintenance, 06/14/24 3:48:00 PM EST, Solution, [facility], Partial fill upon patient [...] 2:49:00 PM EST, Route to Pharmacy Electronically, [facility], Partial fill upon patient [...] Refills, Maintenance, 02/06/24 12:13:00 PM EDT, Solution, [facility], dose change, 155, cm, [...] 11:03:00 AM EST, Route to Pharmacy Electronically, [facility], Partial fill upon patient [...] 5 Refills, Maintenance, 11/22/23 3:46:00 PM EDT, [facility] 3, Partial fill [...] Soft Stop, 11/25/23 12:40:00 PM EDT, Shampoo, [facility] 3, Partial fill [...] 2 Refills, Maintenance, 02/06/24 12:19:00 PM EDT, [facility] 3, 155, cm, 02/06/24 11:49:00 EDT,Height, [...] Refills, Maintenance, 08/01/22 6:06:00 AM EST, Tablet, [facility] 3, Partial fill upon patient [...] PM EDT, Aerosol, Route to Pharmacy Electronically, [id number], [facility], replaces flovent inhaler, 155, [...] 11:03:00 AM EST, Route to Pharmacy Electronically, [facility] 3, Partial fill upon patient [...] Maintenance, 08/14/23 1:38:00 PM EST, Chew Tablet, [facility] 3, Partial fill upon patient [...] 1 Refills, Maintenance, 05/17/23 5:07:00PM EDT, Capsule, [facility], Partial fill upon patient [...] Refills, Maintenance, 11/01/23 2:07:00 PM EDT, Capsule, [facility], Partial fill upon patient [...] Active Memory change Confirmed Active *N/CCA/CC-Matias Vela- [phone]/Health residential, active care coordination Confirmed Active POTS [...] [facility] Physician - Primary Care Member Role: PCP Address: [address] [address]- Telecom: Name: Lizzette To RN Position: [facility] SN RN Member Role: Primary Care Nurse Name: Karolina Adkins MD Position: [facility] Physician - Primary Care Member Role: Lifetime Consulting Physician Address: [address] [facility] [place] [address]- [place] Telecom: Name: Isadora Godfrey RN [facility] [...] Care Nurse Name: Bela Sherman RN Position: [facility] Hospital Miller Head Assistant Wet Process Member Role: Primary Care Nurse Name: Jeanne Grande RN Position: [facility] RN Member Role: Primary Care Nurse Care Team Related Persons Name: BEAR TURNER Name: BEAR TURNER SECONDARY Name: ISATU ECKERT Name: ISAAC VERDE PRIMARY Name: ADRY DURANT Name: PANCHO JEROME Insurance Providers Guarantor name: ANSELMO TURNER Health Plan Information #: 1 Payer: [facility] Member Number: NA Policy Number: NA Group Number: NA
--- OUTSIDE RECORDS SUMMARY | 2024-08-06 16:59 | XMS_ITS | Data Portability ---
Author Organization [place] - [facility], Allergy Address [address] [place] [phone] Care Team Providers Care Customer Account Executive Name Role Phone JAZMIN SANCHES Primary Care Provider Assessment Encounter Date Assessment Date Assessment LastModified by Organization Details LastModified Time 04/06/2024 04/06/2024 33-year-old female with left sided tympanic membrane perforation with CHL using amplification presents for cerumen removal and hearing loss. Cerumen impaction removed bilaterally. Left TM perforation is dry. Right TM intact. Audiometric testing demonstrated normal hearing on the right and normal sloping to a mild CHL on the left, essentially stable. Continue with dry ear precautions. 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 She will follow up in 6 months for routine debridement, or sooner with any concerns. [email or web address] Not available 04/06/2024 15:17:29 Plan of Treatment Reminders Order Date Submit Date Provider Last Modified By Organization Details Last Modified Time Details Appointments Establish ed 15 2024 01:30P M CLINT GASTELUM PA-C Not available Not available Not available Lab None recorded. Referral None recorded. Procedures None recorded. Surgeries None recorded. Imaging None recorded. Medication Orders None recorded. Patient TargetsNo targets recorded. Patient InstructionsNo instructions recorded. Reason for Referral None Reported. Results Created Date Observation Date Name Description Value Unit Range Abnormal Flag Note LastModifiedBy Organization Detail LastModifiedTime 03/17/20 24 08/01/2020 imagi ng/di agnos tic resul t No observ ation record ed. [email or web address] Not Available 10:10:10 03/17/20 24 08/25/2020 imagi ng/di agnos tic resul t No observ ation record ed. [email or web address] Not Available 10:10:11 03/17/20 24 08/01/2020 audio gram No observ ation record ed. [email or web address] Not Available 10:10:16 04/07/20 audio gram No observ ation record ed. [email or web address] Not Available 2023 16:39:56 Result Notes None recorded. Problems Name Problem SNOMED Code Status Onset Date Resolution Date Notes Provider Name and Address Organization Details Recorded Time Acute myringiti s of left ear [id number] 65479 Active 2017 Acute myringiti s, left ear; Note: Date Diagnosed : 8 3:58 PM (H73.002) Not Available [facility] 4 02:32:53 Conductiv e hearing loss 17517478 Active 2015 Conductiv e hearing loss, unilatera l, left ear, with unrestric rusty hearing on the contralat eral side; Note: Date Diagnosed : 01/12/2016 3:33 PM (H90.12) Not Available [facility] 4 02:32:44 Otorrhea of left ear [id number] 58052 Active 2017 Otorrhea, left ear; Note: Date Diagnosed : 8 3:55 PM (H92.12) Not Available [facility] 4 02:32:48 History of radiation exposure 424023810 Active 2020 Personal history of exposure to therapeut ic radiation ; Note: Date Diagnosed : 08/25/2020 12:52 PM (Z92.3) Not Available [facility] 4 02:32:49 Impacted cerumen of bilateral ears 30833136362 07582 Active 2020 Impacted cerumen, bilateral ; Note: Date Diagnosed : 02/16/2021 3:38 PM (H61.23) Impacte d cerumen, bilateral ; Note: Date Diagnosed : 08/01/2020 2:25 PM (H61.23) ; Start Date : 1 Not Available [facility] 4 02:32:58 Pain of left temporoma ndibular joint 65735125720 348501 Active 2020 Arthralgi a of left temporoma ndibular joint; Note: Date Diagnosed : 02/16/2021 3:38 PM (M26.622) Not Available [facility] 4 02:32:35 Central perforati on of left tympanic membrane 00291372549 75585 Active 2017 Central perforati on of tympanic membrane, left ear; Note: Date Diagnosed : 8 3:55 PM (H72.2X2) Not Available [facility] 4 02:32:50 Problem Notes None recorded. Procedures Surgical History Date Name Laterality Status Provider Name and Address Organization Details Recorded Time 4 Comp Audio with Tymps (83585 & 00488) completed VAN MIRANDA [address], [phone], [facility] 04/06/2024 14:53:13 Cerumen removal without microscope bilat completed CLINT GASTELUM PA-C [address], [phone], [facility] 04/06/2024 14:03:31 Imaging Results Imaging Date Name Status LastModified by Organiz ation Details LastModified Time 08/01/2020 imaging/diagno stic result completed Information not available 03/17/2024 10:10:10 08/25/2020 imaging/diagno stic result completed Information not available 03/17/2024 10:10:11 08/01/2020 audiogram completed Information not available 03/17/2024 10:10:16 04/07/2024 audiogram completed [email or web address] Information no t available 04/07/2024 16:39:56 Procedure Notes None recorded. Medical Equipment None Reported. Allergies Allergen ID Allergen Name Allergen Category Reaction Reaction Severity Criticality Documentation Date Start Date Code Code System Note Provider Name and Address Organization Details Recorded Time 70083 hydrocort isone / neomycin / polymyxin B medicatio n other Not available Not available 12/10/2023 02923 7 RxNorm React ion: unkno wn, unspe cifie d;; Not Available [facility] 4 01:03:11 56275 cefoxitin medicatio n other Not available Not available 12/10/2023 2189 RxNorm React ion: unkno wn, unspe cifie d;; Not Available [facility] 4 01:03:15 Medications Name Sig Start Date Stop Date Status Note LastModified by Organization Details LastModified Time vitamin d3 1.25 mg (72409 u TAKE 1 CAPSULE BY MOUTH EVERY WEEK active Not Available Not Available No t Available vitamin c 250 mg chew CHEW AND SWALLOW 1 TABLET TWO TIMES A DAY active Not Available Not Available No t Available glycopyrr olate 1 mg tablet TAKE 1 TO 2 TABLETS BY MOUTH EVERY 8 HOURS NEEDED active Not Available Not Available No t Available ketoconaz ole 2 % shampoo APPLY 5 TO 10 ML TO WET SCALP, LATHER, LEAVE ON 3 TO 5 MINUTES, AND RINSE; APPLY WEEKLY FOR 2 TO 4 WEEKS active Not Available Not Available No t Available diltiazem CD 240 mg capsule,e xtended release 24 hr 02/16 completed Medicati on ID: [id number] D uration Value: 30 Brand Name: diltiaze m HCl Send Method: E-Prescr ibed Sub s Allowed: subs OK Speci al Instruct ion: TAKE 1 CAPSULE BY ORAL ROUTE EVERY DAY Medi cationGe nericNam e: diltiaze m HCl Not Available Not Available Not Available Nexium 40 mg capsule,d elayed release 08/01 completed Medicati on ID: [id number] D uration Value: 90 Brand Name: Nexium S end Method: E-Prescr ibed Sub s Allowed: subs OK Speci al Instruct ion: 1 CAPSULE BY MOUTH DAILY Me dication GenericN divine: Nexium Not Available Not Available Not Available diltiazem ER 360 mg capsule,2 4 hr,extend ed release 2020 active Medicati on ID: [id number] B rand Name: diltiaze m HCl Send Method: E-Prescr ibed Sub s Allowed: subs OK Speci al Instruct ion: TAKE 1 CAPSULE BY MOUTH EVERY DAY Medi cationGe nericNam e: diltiaze m HCl Not Available Not Available Not Available fluocinon krupa 0.05 % topical ointment APPLY TWO TIMES A DAY TO AFFECTED AREAS IN GROIN AND AXILLAE TWICE A DAY FOR 2 WEEKS, BREAK 1 WEEK AND REPEAT NEEDED active Not Available Not Available No t Available acetamino phen 300 mg-codein e 30 mg tablet TAKE 2 TABLETS BY MOUTH THREE TIMES A DAY NEEDED FOR PAIN. (LIMIT 4000MG OF TYLENOL/ APAP/TAMEKA TAMINOPH EN) active Not Available Not Available No t Available peg-elect rolyte solution 420 gram oral solution MIX AND DRINK 8 OUNCES (240 ML) BY MOUTH EVERY 10 MINUTES UNTIL FECAL EFFLUENT IS CLEAR active Not Available Not Available No t Available ofloxacin 0.3 % ear drops INSTILL 5 DROPS IN LEFT EYE TWO TIMES A DAY active Not Available Not Available No t Available lorazepam 0.5 mg tablet TAKE 1 TABLET BY MOUTH TWO TIMES A DAY NEEDED FOR ANXIETY active Not Available Not Available No t Available cyanocoba paola (vit B-12) 1,000 mcg/mL injection solution INJECT 1 ML INTRAMUS CULARLY EVERY 14 DAYS. active Not Available Not Available No t Available metoprolo l tartrate 50 mg tablet 2021 active Medicati on ID: [id number] B rand Name: metoprol ol tartrate Send Method: E-Prescr ibed Sub s Allowed: subs OK Speci al Instruct ion: TAKE 1 TABLET BY MOUTH TWO TIMES A DAY WITH MEALS Me dication GenericN divine: metoprol ol tartrate Not Available Not Available Not Available nitroglyc soraida 0.4 mg sublingua l tablet PLACE 1 TABLET UNDER TONGUE EVERY 5 MIN NEEDED FOR CHEST PAIN, MAX OF 3 DOSES/15 MIN CALL 911/SEEK MEDICAL ATTENTIO N IF PAIN PERSISTS active Not Available Not Available No t Available docusate sodium 100 mg capsule TAKE 1 CAPSULE BY MOUTH TWO TIMES A DAY NEEDED FOR CONSTIPA TION active Not Available Not Available No t Available verapamil ER (SR) 240 mg tablet,ex tended release TAKE 1 TABLET BY MOUTH EVERY DAY. active Not Available Not Available No t Available dextroamp hetamine- amphetami ne ER 10 mg 24hr capsule,e xtend release 2021 active Medicati on ID: [id number] B rand Name: dextroam phetamin e-amphet amine Se nd Method: E-Prescr ibed Sub s Allowed: subs OK Medic ationGen ericName : dextroam phetamin e-amphet amine Not Available Not Available Not Available bisacodyl 5 mg tablet,de layed release TAKE 1 TABLET BY MOUTH EVERY DAY active Not Available Not Available No t Available acebutolo l 200 mg capsule 08/01 completed Medicati on ID: [id number] D uration Value: 15 Brand Name: acebutol ol Send Method: E-Prescr ibed Sub s Allowed: subs OK Speci al Instruct ion: TAKE 3 CAPSULES EVERY MORNING AND TAKE 3 CAPSULES EVERY EVENING Medicati onGeneri cName: acebutol ol Not Available Not Available Not Available fluoxetin e 20 mg capsule 08/01 completed Medicati on ID: [id number] D uration Value: 30 Brand Name: fluoxeti ne Send Method: E-Prescr ibed Sub s Allowed: subs OK Speci al Instruct ion: TAKE ONE CAPSULE BY MOUTH EVERY DAY [facility] cationGe nericNam e: fluoxeti ne Not Available Not Available Not Available dextroamp hetamine- amphetami ne 5 mg tablet 2021 active Medicati on ID: [id number] B rand Name: dextroam phetamin e-amphet amine Se nd Method: E-Prescr ibed Sub s Allowed: subs OK Medic ationGen ericName : dextroam phetamin e-amphet amine Not Available Not Available Not Available spironola ctone 50 mg tablet TAKE 1 TABLET BY MOUTH TWO TIMES A DAY active Not Available Not Available No t Available Ventolin HFA 90 mcg/actua tion aerosol inhaler INHALE 2 PUFFS BY MOUTH EVERY 6 HOURS NEEDED FOR WHEEZING active Not Available Not Available No t Available neomycin- polymyxin -hydrocor t 3.5 mg-10,000 unit/mL-1 % ear drops,sherry p 07/17 completed Medicati on ID: [id number] D uration Value: 20 Brand Name: neomycin -polymyx in-HC Se nd Method: E-Prescr ibed Sub s Allowed: subs OK Speci al Instruct ion: INSTILL 5 DROPS INTO LEFT EAR TWO TIMES A DAY FOR 7 DAYS Med icationG enericNa me: neomycin -polymyx in-HC Not Available Not Available Not Available Ciprodex 0.3 %-0.1 % ear drops,sherry pension 4 drop 2017 active Medicati on ID: [id number] D uration Value: 10 Prescri bed By Name: Nereyda Emerson nd Name: Ciprodex Send Method: E-Prescr ibed Sub s Allowed: subs OK Medic ationGen ericName : Ciprodex Not Available Not Available Not Available Symbicort 160 mcg-4.5 mcg/actua tion HFA aerosol inhaler INHALE 2 PUFFS TWO TIMES A DAY active Not Available Not Available No t Available peg 3350-elec trolytes 236 gram-22.7 4 gram-6.74 gram-5.86 gram solution MIX DIRECTED AND DRINK 240ML EVERY 10 MINUTES DIRECTED UNTIL FECAL EFFLUENT IS CLEAR. active Not Available Not Available No t Available Amitiza 8 mcg capsule TAKE 1 CAPSULE BY MOUTH TWO TIMES A DAY active Not Available Not Available No t Available Xifaxan 550 mg tablet TAKE 1 TABLET BY MOUTH THREE TIMES A DAY FOR 14 DAYS active Not Available Not Available No t Available Vyvanse 10 mg capsule TAKE 1 CAPSULE BY MOUTH EVERY MORNING. MAY INCREASE TO 2 CAPSULES NEEDED active Not Available Not Available No t Available Trulance 3 mg tablet TAKE 1 TABLET BY MOUTH EVERY DAY active Not Available Not Available No t Available Vitals Date Recorded Body height Body mass index (BMI) Body weight Provider Name and Address Organization Details Last Updated DateTime 04/06/2024 154.94 cm 27.4 kg/m2 58066.89 g Jacqueline Paredes [place] - [facility] 04/06/2024 14:10:42 Social History None recorded. Functional Status None recorded. Mental Status None recorded. Family History Nothing Reported. Medical History No medical history recorded. Gynecological HistoryNo gynecological history recorded. Obstetrics History GPAL:G 0 P 0 0 0 0 Past Encounters Encounter ID Performer Location Encounter Start Date Encounter Closed Date Diagnosis/Indication Diagnosis SNOMED-CT Code Diagnosis ICD10 Code Diagnosis Note [id number] ROBERT FELDMAN MD [facility] [address] [facility] [place] [address] 04/06/2024 14:00:38 04/06/2024 15:09:40 Central perforation of left tympanic membrane [id number] 052108 H72.02 Impacted c erumen of bilateral ears 5047340075 179129 H61.23 Conductive hearing loss 44089896 H90.12 Audiologic al evaluation results: Right ear: {{Normal* Normal through 2 kHz Mild M oderate Mo derately-s evere Angela re Profoun d}} {{hearing* sloping to a mild slopi ng to a moderate s loping to moderately severe slo ping to severe slo ping to profound f lat high frequency low frequency mid frequency cookie bite peres curve}} {{with* se nsorineura l hearing loss with condu ctive hearing loss with mixed hearing loss with}} {{excellen t* good fa ir poor no measurable }} word recognitio n. Left ear: {{Normal* Normal through 2 kHz Mild M oderate Mo derately-s evere Angela re Profoun d}} {{hearing sloping to a mild* slop ing to a moderate s loping to moderately severe slo ping to severe slo ping to profound f lat high frequency low frequency mid frequency cookie bite peres curve}} {{with sen sorineural hearing loss with condu ctive hearing loss with* mixe d hearing loss with}} {{excellen t* good fa ir poor no measurable }} word recognitio n. Tympanomet ry: Right Ear:{{Type A* Type As Type Ad Type C Type C, shallow & rounded Ty pe B Type B with large volume Cou ld not maintain a hermetic seal}} Left Ear:{{Type A Type As Type Ad Type C Type C, shallow & rounded Ty pe B Type B with large volume* Co uld not maintain a hermetic seal}} Health Concerns Section Related Observation LastModified by Organization Detai ls LastModified Time None Recorded Concern Status LastModified by Organization Details LastModified Time None Recorded Advance Directives Directive None Recorded Payers Encounter Date Sequence Insurance Name Policy Number Policy Dahl Covered Member ID Dahl Member ID Guarantor Name 04/06/2024 1 [facility] (MEDICAID HMO) [id number] Ekta Arzate [id number] Ekta Arzate Notes Date Note Type Note Provider Name and Address Organization Details Recorded Time 04/06/2024 text/html 33-year-old fema le with left sided tympanic membrane perforation with CHL using amplification presents for cerumen removal. Used Ofloxacin at previous visit. Notes change in hearing bilaterally and tinnitus for the past 6 months. Denies otalgia and otorrhea. History of left tympanoplasty with Dr. Roa back in 2014 which was unsuccessful. The patient has a history of brain radiation and chemotherapy for treatment of medulloblastoma in 2012. ROBERT FELDMAN MD [address] [place] [address], [phone], [facility] - [facility] 04/07/2024 08:53:19 OBGyn Episode No OBEpisode recorded.
== END 2024-08-06 15:41 | disposition home or self-care (01) ==
LOC: HO.LAB 15:40
PROVIDERS: PCP Internal Medicine; Visit Provider Internal Medicine Gastroenterology
DX: Z13.89 Encounter for screening for other disorder (principal)

== ENCOUNTER 2024-08-28 15:58 | Outpatient (REF) | payer OTHER, SELFPAY ==
[2024-08-28 16:51] LABS: MANUAL DIFF FLAG NO
[2024-08-28 17:11] LABS: Basophils Percent Auto 0.7 % (0-2); Eosinophils Absolute Auto 0.1 X10*3/uL (0.0-0.4); Eosinophils Percent Auto 1.6 % (0-4); Hematocrit 35.7 % (37.0-47.0); Hemoglobin 12.3 g/dl (12.0-16.0); Imm Gran Abs Auto 0.01 X10*3/uL (0.00-0.03); Imm Gran Pct Auto 0.2 % (0.0-0.4); Lymphocytes Absolute Auto 1.6 X10*3/uL (1.2-4.9); Lymphocytes Percent Auto 36.3 % (20-40); Mean Corpuscular HGB Conc 34.5 g/dl (31.0-35.0); Mean Corpuscular Hemoglobin 28.8 pg (27.0-33.0); Mean Corpuscular Volume 83.6 fL (80.0-98.0); Monocytes Absolute Auto 0.3 X10*3/uL (0.1-1.2); Monocytes Percent Auto 7.8 % (2-11); Neutrophils Absolute Auto 2.3 x10*3/uL (2.0-8.3); Neutrophils Percent Auto 53.4 % (45-73); Platelet Count 201 X10*3/uL (160-400); Red Blood Count 4.27 X10*6/uL (4.20-5.50); Red Cell Distribution Width 13.5 % (11.0-16.0); White Blood Count 4.4 X10*3/uL (4.8-10.8)
[2024-08-28 17:55] LABS: Erythrocyte Sedimentation Rate 14 MM/HR (0-20)
[2024-08-28 18:01] LABS: Alanine Aminotransferase 13 U/L (0-31); Albumin Level 4.2 g/dL (3.5-5.0); Anion Gap 12 (12-20); Aspartate Amino Transferase 15 U/L (5-31); Bilirubin Total 0.5 mg/dL (0.0-1.0); Blood Urea Nitrogen 8 mg/dL (9-16); C Reactive Protein < 0.04 mg/dL (< or = 0.50); Calcium 9.5 mg/dL (8.4-10.2); Carbon Dioxide 24 mmol/L (22-29); Chloride 108 mmol/L (96-108); Estimated Glomerular Filt Rate > 60; Glucose Random 72 mg/dL (60-115); Magnesium 1.8 mg/dL (1.6-2.6); Sodium 140 mmol/L (135-145); Total Protein 7.6 g/dL (6.5-8.0)
[2024-08-28 18:11] LABS: Alkaline Phosphatase 83 U/L (39-117); Ferritin 124 ng/mL (10-122); TSH reflex Free T4 1.81 uIU/mL (0.32-4.0); Vitamin D 25-OH Total 26.5 ng/mL (>30)
[2024-08-28 19:11] LABS: Vitamin B12 294 pg/mL (200-900)
[2024-08-29 00:02] LABS: Folate 9.8 ng/mL (> or = 4.0)
[2024-08-29 22:59] LABS: Triiodothyronine T3 Free 3.3 pg/mL (2.3-4.2)
[2024-08-31 20:04] LABS: IgA 84 mg/dL (47-310); IgG 1262 mg/dL (600-1640); IgM 236 mg/dL (50-300)
[2024-09-01 18:28] LABS: Zinc 68 mcg/dL (60-130)
[2024-09-01 18:58] LABS: Vitamin A 59 mcg/dL (38-98)
[2024-09-02 01:27] LABS: Alpha-Tocopherol 11.8 mg/L (5.7-19.9); Beta-Gamma Tocopherol <1.0 mg/L (<=4.3)
[2024-09-02 14:43] LABS: Vitamin B5 (Pantothenic Acid) <=40 ng/mL (<275)
[2024-09-02 21:23] LABS: Vitamin K1 407 pg/mL (130-1500)
[2024-09-05 17:53] LABS: Vitamin B1 10 nmol/L (8-30); Vitamin B6 4.6 ng/mL (2.1-21.7)
[2024-09-07 11:18] LABS: Triiodothyronine T3 Reverse 16 ng/dL (8-25)
[2024-09-09 11:23] LABS: Ej Ab <11 SI (<11); Jo-1 Ab <11 SI (<11); MDA5 Ab <11 SI (<11); Mi-2 alpha Ab <11 SI (<11); Mi-2 beta Ab <11 SI (<11); NXP-2 (MJ) Ab <11 SI (<11); Oj Ab <11 SI (<11); Pl-12 Ab <11 SI (<11); Pl-7 Ab <11 SI (<11); SRP Ab <11 SI (<11); TIF1 gamma Ab <11 SI (<11)
== END 2024-08-28 15:59 | disposition home or self-care (01) ==
LOC: HO.LAB 15:58
PROVIDERS: PCP Internal Medicine; Referring Provider Internal Medicine Gastroenterology; Visit Provider Hospitalist
DX: M79.10 Myalgia, unspecified site (principal); Z91.09 Other allergy status, other than to drugs and biological substances; K75.81 Nonalcoholic steatohepatitis (NASH); J45.40 Moderate persistent asthma, uncomplicated; R91.8 Other nonspecific abnormal finding of lung field; R74.8 Abnormal levels of other serum enzymes; R07.9 Chest pain, unspecified; I27.82 Chronic pulmonary embolism
CPT/HCPCS: 36415; 80053; 82085; 82180; 82306; 82607; 82728; 82746; 82784; 83735; 84182; 84207; 84425; 84443; 84446; 84481; 84482; 84590; 84591; 84597; 84630; 85025; 85652; 86140; 86235; 99212

== ENCOUNTER 2024-08-28 15:58 | Outpatient (AMB) | payer OTHER, SELFPAY ==
[2024-08-28 16:00] VITALS: BP 100/60; PULSE 98; O2SAT 99; BMI 28.1
--- NOTE | 2024-08-28 16:00 | MHC.OFFVIS ---
Vital Signs 08/28/24 16:00 Height 5 ft 1 in Weight 148 lb 12.992 oz BMI 28.1 BP 100/60 Blood Pressure Location Rt brachial Position Sitting Pulse 98 Pulse Source Pulse Oximeter Pulse Oximetry (%) 99 Oxygen Delivery Method Room Air Intake Visit Reasons: Sarcoidosis Allergies cefoxitin [CEFOXITIN] Allergy (Severe, Verified 08/28/24 16:03) Anaphylaxis sertraline Allergy (Severe, Verified 08/28/24 16:03) itching vancomycin [VANCOMYCIN] Allergy (Severe, Verified 08/28/24 16:03) Anaphylaxis Iodinated Contrast Media Allergy (Intermediate, Verified 08/28/24 16:03) Wheezing HPI Comments Details: The patient is a 33-year-old woman with a known history of a brain cancer status post chemotherapy many years ago. Ultimately also had a DVT requiring anticoagulation. She has been having increasing dyspnea on exertion. Moderate severity progressive in nature. In addition to that she has noticed some blood in the sputum. At times it is mixed in with mucus. Sometimes it is bright red. She did show me some pictures. usually is minimal in amount may be a dime size. This episode occur about once a week per the patient. The last time she was evaluated was in the ER because of shortness of breath, chest pains and hemoptysis. Her D-dimer was indeed elevated. The patient did have a CTA which I personally reviewed with her. No evidence of any parenchymal or airspace disease. No evidence of any thromboembolic disease. The patient was placed on Symbicort with partial improvement of the symptoms. The patient also has had issues with dysphagia. She did undergo will go a recent endoscopy demonstrating some slight strictures. She did have dilation. It appears that she is doing a little better from this condition. At this point in view of her ongoing hemoptysis will try to plan a bronchoscopy to better assess the airways and see if there is any evidence of any active bleeding from any particular area. Also can assess her posterior pharynx and nasal passages to make sure she is not bleeding from there as well. Will request blood work at this time looking for connective tissue disorder in order to see if we can find an explanation as far as the [place] diagnosis for her ongoing issues. 03/18/2023 the patient is here for a sick visit. Apparently she started having more hemoptysis and also pleuritic chest pain. With her when she would take a deep breath specially between the a scapula on back and also in the substernal area. [id number] severity. Also complaining of shortness of breath. She has noted that she has been more tachycardic. She still waiting for her cardiac PET. Had to be rescheduled based on the fact that the [facility] PET scan broke down. She was prescribed prednisone. Sleep but she only took for 2 days did not like the way it made her feel and she stop that therefore is hard to know if actual was effective. She still concern with constitutional symptoms from losing her hair to rashes to the coughing up blood to the shortness of breath. Explained to her that with the angiotensin-converting enzyme level being so significantly elevated we need to further assess the diagnosis of sarcoidosis in that started hopeful that we will find out from the cardiac PET scan. If the patient does have more concrete evidence of sarcoidosis we could treat her appropriately if we cannot get answers we may have to refer her to [facility]. Meantime based on her symptoms will go ahead and repeat her D-dimer. Also will assess for other connective tissue conditions based on her constitutional symptoms. If the D-dimer is elevated she will require CTA to rule out pulmonary emboli. She has had blood clots in the past. When she called last week I did send her course of doxycycline. She has not used that as of yet. Although the hemoptysis seems to be a little better over the weekend. She did show a picture that hemoptysis primarily was bright red blood about a nickel amount mixed in with regular looking sputum. 04/09/2023 the patient is here for a pulmonary follow-up visit. Much as happened since we last spoke. The patient was having pleuritic discomfort. D-dimer was elevated. Therefore she did undergo CTA. It demonstrated a question of a pulmonary emboli. Therefore the patient was started on Eliquis. The patient has had deep venous thrombosis in the past. The patient underwent a V/Q scan to further address the question of pulmonary embolism. It demonstrated no evidence of any perfusion defects therefore negative for pulmonary emboli. At that point the patient is having some difficulties tolerating the Eliquis and she decided to stop it. The patient understands that having the negative V/Q scan does not rule out blood clots since she was already on therapy. The patient also had an elevated D-dimer. She is willing to repeat a D-dimer. If D-dimer continues to be elevated I did recommend she go back on Eliquis at least completed 3 months course. The patient is awaiting her cardiac PET scan. It was finally approved and she will have it done this week. Will be assessing for any evidence of any cardiac sarcoid. In addition to that she is going to have her eye exam to rule out uveitis in the coming days. In addition to that the patient does state that she develops a rash at times. Right now the rashes improved. In addition to these can rash she is noticed nodular densities on her labia of her genitals. She is wondering if this could be potentially sarcoidosis. Patient will need a biopsy to assess for granulomas. At this point all we have is that her Rojas level continues to be critically elevated which is a marker of active sarcoidosis. If indeed all her symptoms are consistent with sarcoidosis then we can start her on therapy. 07/04/2023 the patient is here for a pulmonary follow-up visit. Overall she is doing about the same. Still complaining of shortness of breath and chest pressure sensation pressure that radiates to the back. The Symbicort does help but is not completely helpful. We did review her allergy testing in her IgE in her IgE is significantly elevated above 300 she does have significant allergies to both environmental allergies in foods. At this point she is maximized on respiratory therapy then I do believe that she will be a great candidate for Xolair. Hopefully by using biologics we can improve her respiratory complaints. The patient did follow-up with the design project manager and they did not see any sarcoid in the eyes although she does have the beginnings of cataracts. In addition to that the patient was seen by Dermatology but they did not see any lesions to be concerned about from dermatological standpoint. There which is concerned about acne. Therefore, this point we have exhausted all the different potential sarcoid related conditions and nothing really to explain the significantly elevated Rojas level. Explained to her that is likely more of a genetic abnormality where she has an elevated Rojas level without actually having sarcoidosis. Therefore, but these sarcoidosis question aside. Will try the Xolair therapies to treat her significant asthma and significant allergies and hope to improve her all respiratory capacity and quality of life. If the patient does not see any significant improvement with the Xolair then will refer her to [facility] for further tertiary care. 10/24/2023 the patient is here for a pulmonary follow-up visit. She started developing episodes of hemoptysis again. Intermittent. Mild in severity. Also complaining of shortness of breath and chest discomfort. She had a CTA back in February demonstrating some subsegmental pulmonary emboli. Will go ahead and repeat her CTA at this time. Again, we talked about the abnormal Rojas level. 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 She has already been ruled out for sarcoidosis. Also to note that she did have a cardiac PET to further evaluate for cardiac sarcoid specially since she has a pacemaker. The cardiac PET was reassuring without any evidence of any FDG activity a the heart or the heart. Although it demonstrated hyper metabolic activity of the breast tissue bilaterally. We will review the CT scan images. However the patient may benefit from getting a breast ultrasound for better assessment of that area. She has been on the Xolair. Although more recently she has been having some difficulties with transportation and has not been able to get it regularly. She understand that she is significant allergies and I do believe that she does develop significant chest tightness from bronchospasms from untreated allergic asthma. Therefore she will make an effort to get her Xolair injections regularly. 12/26/2023 the patient is here for a pulmonary follow-up visit. Overall she is feeling better. She continues on the Xolair injections every 2 weeks. She also continues with Symbicort. Her respiratory symptoms have improved. Denies any hemoptysis. Denies any chest pain. We did review her blood work and she still continues have the elevated Rojas level. At this point the think it has related to a genetic predisposition. No evidence of any active sarcoidosis. She did have a CTA based on the fact that she had blood clots in the past still has an elevated D-dimer. The patient does have pulmonary nodules noted. Alone see any evidence of any residual blood clots. Will awaiting the final read on the CT scan. We did review her PET scan that she had previously regarding the question of cardiac sarcoid. No evidence of any cardiac sarcoid noted but there was some increased metabolic activity in the breasts bilaterally. Likely physiologic but will still send the records to her casing crew doctor just in case. Patient is status post hysterectomy. 05/25/2024 the patient is here for a pulmonary follow-up visit. Overall she is still having her symptoms. She does complaint of her pleuritic chest pain. Also has myalgias and arthralgias at times. We had tested her for connective tissue diseases specially because of her ongoing symptoms and history of hypercoagulable state although the overall negative. She did have a creatinine kinase check racing that was indeed elevated bringing up the question of myositis. Therefore will redo the blood work to include polymyositis. It may be that she has a pauci immune process. I will refer her to Rheumatology to further look into this. In the meantime she continues with respiratory medications. She feels like the Xolair has been effective for her. She feels a little better. She still has significant daytime drowsiness but she has untreated narcolepsy. She has tried and failed multiple different medications not able to tolerate them for 1 reason or the other. Therefore she does have significant daytime drowsiness on a regular basis. 08/28/2024 the patient is here for a pulmonary follow-up visit. Overall the patient has been doing fairly better. She does have some symptoms of chest discomfort when taking a deep breath in. But otherwise doing overall better. She is tolerating the higher dose Xolair. The patient also tolerated the Plaquenil. In addition to that she is following up closely with GI. She needs to have blood work done. She is going to have blood work done today before she goes home. Otherwise patient is doing well on the current therapy least from a respiratory status. Will continue with current regimen continue with Xolair follow-up in the spring. If any issues arise she will call for an earlier assessment. [facility] Medical History Myalgia Environmental allergies Asthma Pulmonary emboli Pleuritic chest pain Abnormal serum angiotensin-converting enzyme level Cardiac arrhythmia Pulmonary nodules Dyspnea History of DVT (deep vein thrombosis) History of chemotherapy History of palpitations Hx of supraventricular tachycardia Narcolepsy Seasonal allergies Anxiety and depression Pacemaker Pernicious anemia B12 deficiency Active asthma POTS (postural orthostatic tachycardia syndrome) H/O brain tumor Surgical History History of repair of rectocele Hx of hysterectomy History of cardiac radiofrequency ablation (RFA) Hx of craniotomy H/O colonoscopy H/O esophagogastroduodenoscopy Hx of appendectomy Family History Mother Heart problem Maternal Grandfather Heart problem Paternal Grandmother Dementia Social History Household Members: None Are you a primary career technical education teacher to a significant other at home: No Do you presently have visiting nurse or other home services: Yes ([employer] 4.5 week) Alcohol intake: current Alcohol intake frequency: a few times a month Patient Tobacco Use Status: Never used Tobacco Review of Systems Const Reports body aches, Reports fatigue and Denies night sweats Eyes Denies change in vision ENT Reports dysphagia and Denies epistaxis Card Denies chest pain, Denies dyspnea and Denies dyspnea on exertion Resp Denies cough, Denies hemoptysis, Denies pain on inspiration, Denies pain with cough, Denies dyspnea, Denies dyspnea on exertion and Denies wheezing GI Reports as per HPI, Reports constipation and Reports dysphagia Reports as per HPI and Reports genital lesions Musc Reports no additional complaints Skin/Breast Reports alopecia, Reports pruritus and Denies rash Neuro Reports as per HPI Endo Reports fatigue Fabian/Lymph Denies easy bleeding, Denies easy bruising and Denies lymphadenopathy Aller/Immun Denies wheezing Physical Exam Vital Signs: Last Vital Signs Pulse 98 08/28/24 16:00 BP 100/60 08/28/24 16:00 Pulse Ox 99 08/28/24 16:00 Oxygen Delivery Method Room Air 08/28/24 16:00 BMI result Body Mass Index 28.1 Const General: comfortable HEENT Head: Yes normocephalic Eyes General: appearance normal, both eyes and all related structures Neck Neck: Yes supple Chest Chest palpation & inspection: normal inspection of the chest Resp Effort & Inspection: normal respiratory effort Auscultation: clear to auscultation bilaterally and no wheezes Cardio Rate: regular rate Rhythm: regular rhythm Heart sounds: S1 normal heart sound present and S2 normal heart sound present GI Palpation (GI): Soft to palpation External Female Exam: lesion (The patient brought a picture-vasiculopapular lesion with drainage) Skin General skin exam: other (papules) Extrem General: Yes no clubbing, cyanosis or edema Assessment & Plan Assessment & Plan (1) Asthma: Code(s): J45.909 - Unspecified asthma, uncomplicated Category: Medical Qualifiers: Asthma complication type: uncomplicated Asthma persistence: persistent Asthma severity: moderate Qualified Code(s): J45.40 - Moderate persistent asthma, uncomplicated (2) Environmental allergies: Code(s): Z91.09 - Other allergy status, other than to drugs and biological substances Category: Medical (3) Pulmonary nodules: Code(s): R91.8 - Other nonspecific abnormal finding of lung field Category: Medical (4) Abnormal serum angiotensin-converting enzyme level: Comment: No evidence of sarcoidosis Code(s): R74.8 - Abnormal levels of other serum enzymes Category: Medical (5) Pulmonary emboli: Comment: quationable base on CTA, but VQ negative Code(s): I26.99 - Other pulmonary embolism without acute cor pulmonale Category: Medical Qualifiers: Acute cor pulmonale presence: unspecified Chronicity: chronic Pulmonary embolism type: other Qualified Code(s): I27.82 - Chronic pulmonary embolism (6) Chest pain: Code(s): R07.9 - Chest pain, unspecified Category: Medical Qualifiers: Chest pain type: unspecified Qualified Code(s): R07.9 - Chest pain, unspecified (7) Myalgia: Code(s): M79.10 - Myalgia, unspecified site Category: Medical Plan continue Symicort continue Xolair [id number] DAMARI as needed continue allergy therapies GI following F/U 4-6 months Coding Level of Care Code Est Pt Level 4 (29298) Diagnoses Moderate persistent asthma without complication J45.40 Asthma complication type: uncomplicated Asthma persistence: persistent Asthma severity: moderate Environmental allergies Z91.09 Pulmonary nodules R91.8 Abnormal serum angiotensin-converting enzyme level R74.8 Other chronic pulmonary embolism, unspecified whether acute cor pulmonale present I27.82 Acute cor pulmonale presence: unspecified Chronicity: chronic Pulmonary embolism type: other Chest pain, unspecified type R07.9 Chest pain type: unspecified Myalgia M79.10 Time Spent (min) 17
--- OUTSIDE RECORDS SUMMARY | 2024-08-28 16:01 | XMS_ITS | Continuity of Care Document ---
Author Organization [facility] ter Address [address] [place] [id number]- Care Team Providers Care Mental Health Nurse Name Role Phone Mary KEATING, Sisi Almanza Primary Care Physician [phone] [place] [facility] [place] [id number] Date(s): 08/11/24 - 08/11/[address] [address]- Discharge Disposition: A-D/C Home Attending Physician: Michi Noe DMD Admitting Physician: Michi Noe DMD Referring Physician: Michi Noe DMD Encounter Type: Disch Daystay Allergies, Adverse Reactions, Alerts Substance Criticality Severity [...] Given 1Early/Late Reason: Other : na Medications albuterol CFC free 90 mcg/inh inhalation aerosol 2, puffs, Inhalation, Every 6 hours, PRN, # 2 each, Refills 11, Tot. Refills 11, Maintenance, 02/15/22 1:12:00 PM EDT, Aerosol, Route to Pharmacy Electronically, [id number], [facility], ONLY ALBUTEROL HFA, CANCEL [...] Refills, Maintenance, 06/14/24 3:48:00 PM EST, Solution, [facility], Partial fill upon [...] 2:49:00 PM EST, Route to Pharmacy Electronically, [facility], Partial fill upon patient [...] Quantity: 2.0 Unit: Units Repeat number: 12 Creon 12,000 units oral delayed release capsule 2 capsule, By Mouth, 3 times a day, 0 Refills, Maintenance, 08/07/24 9:06:00 AM EST, Partial fill upon patient request if the prescription is for a schedule II opioid drug. Start Date: 08/07/24 Status: Ordered Repeat number: 1 cyanocobalamin 1000 mcg/ml injectable solution 1 mL = 1,000 mcg, Intramuscular, Every 14 days, # 7 mL, 11 Refills, Maintenance, 02/06/24 12:13:00 PM EDT, Solution, [facility], dose change, 155, cm, [...] Quantity: 200.0 Unit: each Repeat number: 6 ketoconazole 1% topical shampoo See Instructions, Apply 5 to 10 mL to wet scalp, lather, leave on 3 to 5 minutes, and rinse; apply twice weekly for 2 to 4 weeks., # 200 mL, 5 Refills, Maintenance, 11/22/23 3:46:00 PM EDT, [facility], Partial fill upon [...] Quantity: 200.0 Unit: mL Repeat number: 6 LORazepam 0.5 mg oral tablet See Instructions, TAKE 1 TABLET BY MOUTH TWO TIMES A DAY NEEDED FOR ANXIETY, # 28 tablet, 2 Refills, Maintenance, 02/06/24 12:19:00 PM EDT, [facility], 155, cm, 02/06/24 11:49:00 EDT,Height, 71, [...] Quantity: 100.0 Unit: tablet Repeat number: 1 senna - oral tablet 2 tablet, By Mouth, Daily at bedtime, PRN for constipation, # 80 tablet, 0 Refills, Maintenance, 08/01/22 6:06:00 AM EST, Tablet, [facility], Partial fill upon patient request if the prescription is for a schedule II opioid drug., 155, cm, 07/31/22 23:48:00 EST, Height, 71.2, kg, 07/31/22 16:42:00 EST, Dry Weight Start Date: 08/01/22 Status: Ordered Quantity: 80.0 Unit: tablet Repeat number: 1 syringe and needles syringe and needles, See Instructions, # 12 Unknown, Refills 3, Tot. Refills 3, Maintenance, syringe 3cc needles 25 g X 5/8 inches for use with b12, 03/04/20 9:54:00 AM EDT, Compound, 155, cm, 10/07/2011:25:00 EDT, Height, 63, kg, 07/01/19 19:58:00 EST, Dry Weight Start Date: 03/04/20 Status: Ordered Quantity: 12.0 Unit: Unknown Repeat number: 4 verapamil 240 mg/12 hours oral tablet, extended release TAKE 1 TABLET BY MOUTH DAILY. Start Date: 02/05/23 Status: Ordered Repeat number: 1 Xolair Autoinjector 300 mg/2 mL subcutaneous solution = 300 mg, Subcutaneous Infusion, Every 14 days, 0 Refills, Maintenance, 08/07/24 9:09:00 AM EST, Partial fill upon patient request if the prescription is for a schedule II opioid drug. 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 Vital Signs Most recent to oldest [Reference Range]: 1 2 3 Height 155 cm (08/11/24 1:07 PM) 155 cm (08/07/24 9:28 AM) Weight 67.4 kg (08/11/24 1:07 PM) 68.2 kg (08/07/24 9:28 AM) Oxygen Saturation [94-100 %] 99 % (08/11/24 5:30 PM) 99 % (08/11/24 5:15 PM) 99 % (08/11/24 5:00 PM) Pulse Rate [55-90 bpm] 63 bpm (08/11/24 1:07 PM) Body Mass Index [18.5-24.99 kg/m2] 28.05 kg/m2 *H* (08/11/24 1:07 PM) 28.39 kg/m2 *H* (08/07/24 9:28 AM) Blood Pressure [90-138/55-84 mm Hg] 124/80mm Hg (08/11/24 5:30 PM) 116/79mm Hg (08/11/24 5:15 PM) 118/81mm Hg (08/11/24 5:00 PM) Respiratory Rate [16-30 br/min] 16 br/min (08/11/24 5:30 PM) 15 br/min *L* (08/11/24 5:15 PM) 13 br/min *L* (08/11/24 5:00 PM) Temperature [96.8-100.4 DegF] 97.8 DegF (08/11/24 5:30 PM) 98.4 DegF (08/11/24 3:45 PM) 98.1 DegF (08/11/24 1:07 PM) Liters per Minute 6 L/min (08/11/24 4:00 PM) 6 L/min (08/11/24 3:45 PM) Mode of Delivery (Oxygen) Room air (08/11/24 5:30 PM) Room air (08/11/24 5:15 PM) Room air (08/11/24 5:00 PM) Blood pressure sites Arm, left (08/11/24 5:30 PM) Arm, left (08/11/24 5:15 PM) Arm, left (08/11/24 5:00 PM) Temperature Route Temporal (08/11/24 5:30 PM) Temporal (08/11/24 3:45 PM) Temporal (08/11/24 1:07 PM) Dry Weight 67.4 kg (08/11/24 1:07 PM) 68.2 kg (08/07/24 9:28 AM) Weight Obtained Via Standing scale (08/11/24 1:07 PM) Patient/family stated (08/07/24 9:28 AM) Dry Weight Obtained Via Patient/family s tated (08/07/24 9:28 AM) Social History Social History Type Response Smoking Status Never smoker; Tobacc o user in household: No entered on: 04/11/16 Sex Sex Representation Female (finding) History and physical note * Event Display: History and Physical Hospital Authored Date: Hospital Progress note * Loretta Wilkins RN: PERFORM, SIGN, VERIFY Event Display: Progress Note Hospital Authored Date: Patient: ANSELMO TURNER Age: 33 years Sex: Female : 1990 Associated Diagnoses: None Author: Loretta Wilkins RN Findings LVM for Sarah at Dr. Noe's office requesting updated Med Clearance, consent and orders. REGINALD Jon, PAE Note * Wendi Li RN: PERFORM Event Display: Discharge/Transfer Note Hospital Authored Date: [id number] Nursing Discharge Note Entered On: 08/11/2024 18:39 EST Performed On: 08/11/2024 18:30 EST by Wendi Li RN Nursing Discharge Note 2 Discharge Time : 08/11/2024 18:30 EST Discharge Level of Care at Discharge : Home/Long-Term/Foster Care Caustic Liquor Maker Utilized : No AMA Form Signed : No Patient Left Unit Via : Wheelchair Patient Accompanied Off Unit with : Responsible adult DC Instructions Provided & Signed by Pt : Yes Patient Understands D/C Instructions : Yes Verbalized Understanding of D/C Plan By : Patient, Responsible adult, Other: Friend Alannah Patient Instructions Discharge Signed : Yes Did Pt have Specialty Bed or Wound Vac : No Wendi Li RN - 08/11/2024 18:39 EST * Wendi Li RN: PERFORM Event Display: Patient Education/Instruction Authored Date: [id number] Surgery Adult Discharge Instructions [place] [id number] Name: ANSELMO TURNER : 1990?? Visit: 08/11/2024 11:20?? Current Date: 08/11/2024 18:02 ?? Account: [id number]?? Surgery Discharge Instructions We would like to thank [...] and their families. Surveys are administered by [employer] ?? If further treatment with your primary care physician or another doctor is recommended, it is important for you to keep the appointment. Call your primary care physician or return to the Emergency Department immediately if your condition worsens, fails to improve, or new symptoms develop. If you need to find a doctor, you can call [facility] for a referral at [phone] or toll free at [phone]) or log in to [email or web address].. ?? [facility], in keeping with [facility] guidance, no longer requires face masks for [...] medical provider or home test kit. ?? You can view and manage your care through the patient portal or by using a health care rosa of your choosing. All My [employer] is a website that allows you to securely view your medical information including your hospital discharge summary, office visit summaries, medications and follow-up visits. You can also request appointments, renew medications, and request access to your medical information using a health care rosa of your choosing, or just ask a question. You are entitled to know the individuals who participated in your treatment. This information is available within your medical record and will be provided upon your request. You can enroll at [email or web address] or register d uring your next office visit. You have been discharged from [facility], Patient Care Unit: [facility]??. If you have any questions regarding these instructions after you leave, please call us and we will be happy to assist you. [facility] Your Care Team Attending Physician Michi Noe DMD?? Discharging Providers Michi Noe DMD Reason for Admission DENTAL CARIESCS DS Primary Care Provider Sisi Hernandez MD? Advance Directive Health Care Proxy on File No What to do next Instructions From Your Doctor ?? Orders? 08/11/24 16:00:00 EST?? Prescriptions??, ??08/11/24 16:00:00 EST?? Instructions from your Care Team Refer to attached MD postoperative discharge instructions Call MD with any questions or concerns?? :?? [phone] Call MD with fever, excessive pain/swelling/bleeding/drainage Bite down on gauze to control postop bleeding, change as needed Do NOT sleep with gauze in your mouth: choking hazard Sleep with head elevated on 2-3 pillows to keep swelling down Apply ice to cheeks, via velcro strap, 20min. ON & 20min. OFF x 72hrs Drink plenty of cool fluids, eat ONLY soft foods, & NO straws!!!?? Prescriptions : Tylenol, Ibuprofen, Oxycodone, & Peridex oral rinse Start medicated oral rinse tomorrow, with gentle mouthcare Make??follow up appointment to be made with oral surgeon ?? Scheduled Follow-Up Appointments Saturday 1:40 PM EDT ?? With: Mary KEATING, Sisi Almanza Where: [facility] [address] [place] [address]- Status: Pending You Need to Schedule the Following Appointments Follow Up with??Michi Vargasarletjohn Where: [address], [address] [facility] [place] [address]- Business (1) Follow Up with??Sisi Hernandez When:??In 0 days Discharge Medications ANSELMO TURNER :1990 Visit Date:08/11/2024 Medications: Please continue your medications until treatment is completed or stopped by your provider. You may resume your daily prescription medications. Discuss any questions related to medications with your provider. What How Much When Instructions Next Dose Unchanged Albuterol (albuterol CFC free 90 mcg/ inh inhalation aerosol) 2 puff(s) Inhalation Every 6 hours as needed for for wheezing Duration: 30 Days Unchanged Aluminum Chloride Hexahydrate Topical (aluminum chloride hexahydrate 20% topical solution) 1 rosa Topically Daily at Bedtime as needed for as needed for excessive sweating Unchanged Cyanocobalamin (cyanocobalamin 1000 mcg/ ml injectable solution) 1 Milliliter Intramuscular Every 14 days Unchanged Docusate (Colace sodium 100 mg oral [...] CAPSULE BY MOUTH EVERY DAY ?? Unchanged Ketoconazole Topical (ketoconazole 1% topical shampoo) See instructions Apply 5 to 10 mL to wet scalp, lather, leave on 3 to 5 minutes, and rinse; apply twice weekly for 2to 4 weeks. ?? Unchanged Lorazepam (LORazepam 0.5 mg oral tablet) See instructions TAKE 1 TABLET BY MOUTH TWO TIMES A DAY NEEDED FOR ANXIETY ?? Unchanged Metoprolol (Metoprolol Tartrate 50 mg oral tablet) Unchanged Nitroglycerin (nitroglycerin 0.4 mg sublingual tablet) 1 tab(s) Sublingual Every 5 minutes as needed for for chest pain Unchanged omalizumab (Xolair Autoinjector 300 mg/ 2 mL subcutaneous solution) 300 Milligram Subcutaneous Infusion Every 14 days Unchanged Pancrelipase (Creon 12,000 units oral delayed release capsule) 2 capsule Oral 3 times a day Unchanged Senna (senna - oral tablet) 2 tab(s) Oral Daily at Bedtime as needed for for constipation Unchanged Verapamil (verapamil 240 mg/ 12 hours oral tablet, extended release) TAKE 1 TABLET BY MOUTH DAILY. ?? Allergies (NKA means No Known Allergies) Fruit??(rash, Allergy to fruit) Sertraline Hydrochloride??(skin burning, burning) cefoxitin??(Cough, Tightness in throat) vancomycin??(Throat itching, Itching of skin) Education Materials Below is the list of Educational Leaflet Providered with your Discharge Instructions. [employer] Patient Education - Surgery Medical Daystay Surgical Overnight Discharge Instructions?? [employer] Patient Education - ??NSAID Analgesic Schedule?? Valuables and Belongings I fully understand and agree that [facility] accepts no responsibility for all [...] encouraged to send valuables and belongings home. ? Other Discharge Information ? Pulmonary Rehab Status?? Pulmonary Rehab Discharge Status?? Respiratory Rate: 16 br/min ? Common Emergency Awareness Tips IS [...] are strongly encouraged to quit. Please call [employer] at [phone] or [phone] ([phone]) or log in to [email or web address] for referrals to smoking cessation programs. ?? The National Suicide Prevention Hotline is available 18/02 if you or someone you know needs to find a reason to keep living. By calling 5-424-546-talk (6491) you'll be connected to a skilled, trained counselor at a crisis center in your area. SURGERY DISCHARGE INSTRUCTIONS SIGNATURE PAGE ANSELMO TURNER Location:[facility] Registration Date and Time:08/11/2024 11:20 EST Primary Care Physician: Sisi Hernandez MD, Attending Physician: Michi Noe DMD, I ANSELMO TURNER, have received the above patient education materials/instructions and have verbalized understanding. If ambulance or transport services are being used I further acknowledge beinggiven a choice of service. ?? If you need to contact me, please call me at this number: . Patient/Director Medicaid Name: Patient/Director Medicaid Signature: Relationship to Patient: Witness Name/Signature: Date: * Wendi Li RN: PERFORM, SIGN, VERIFY Event Display: Patient Education Handout Authored Date: [id number] * Wendi Li RN: PERFORM Event Display: Patient Education Leaflets Authored Date: [id number] Soft Diet ?? [id number] Soft Diet Your healthcare provider has prescribed a soft diet. This means eating foods that are soft, low in fiber, and easy to digest. This diet is for people with digestive problems. This should not be confused with a soft diet that is prescribed for people with issues chewing and swallowing. A soft diet provides foods that are easy to chew and swallow. It will reduce or prevent stomach pain or discomfort. Foods should be bite-sized and very soft or moist. Follow your healthcare provider???s specific instructions about what foods and drinks you may have. The general guidelines below can help you get started on this diet. Beverages OK: Milk, tea, coffee, fruit juices, carbonated beverages, nutrition shakes, and drinks (Note: Thinliquids may be hard to swallow. They may need to be thickened.) Don't have: All are OK, unless they need to be thickened ?? Breads and crackers OK: Refined white, wheat, or seedless rye bread; haroldo or soda crackers that have been moistened; plain rolls or bagels; very soft tortillas Don't have: Whole-grain breads, rolls, or bagels with nuts, raisins, or seeds; crackers, croutons, taco shells ?? Cereals and grains OK: Cooked cereals, plain dry cereals that have been moistened, plain macaroni, spaghetti, noodles,rice Don't have: Whole-grain cereals and granola, or cereals containing bran, raisins, seeds or nuts; coconut; brown or wild rice ?? Desserts and sweets OK: Moist cake; soft fruit pie with bottom crust only; soft cookies moistened in milk or other liquid; gelatin, custard, pudding, plain ice cream, plain sherbet, sugar, honey, clear jelly Don't have: Pastries, desserts, and??ice cream that have nuts, coconut, seeds, or dried fruit; popcorn; chips of any kind, including potato chips and tortilla chips; jam, marmalade ?? Eggs and cheese OK: Poached, soft boiled, or scrambled eggs; cottage cheese, ricotta cheese, cream cheese, cheese sauces, or cheese melted in other dishes Don't have: [place] fried eggs, cheese slices and cubes ?? Fruits OK: Avocado, banana, baked peeled apple, applesauce, peeled ripe peaches or pears, canned fruit (apricots, cherries, peaches, pears), melons Don't have: Raw apple, dried fruits, coconut, maya, pineapple, grapes, fruit zeina, fruit snacks ?? Meat and fish OK: All fresh meat, poultry, or fish that is cooked??until tender Don't have: Meat, fish, or poultry that is fried; tough or stringy meat, including alvarez, sausage, bratwurst, jerky, corned beef ?? Other protein foods OK: Tofu, baked beans, Don't have: Deep-fried tofu; crunchy peanut or other nut or seed butters; nuts or seeds that are whole or chopped ?? Soups OK: All soups, but they may need to be thickened. Thin liquid may be too hard to swallow. Don't have: Soups made with stringy meat pieces or chunky vegetables ?? Vegetables OK: Peeled and well-cooked potatoes or sweet potatoes; fresh, cooked, canned, or frozen vegetables without seeds, skin, or coarse fiber Don't have: Raw vegetables, deep-fried vegetables (such as tempura), and corn ?? Last Reviewed Date: 2022 ?? 6949-7718 [employer]. All rights reserved. This information is not intended as a substitute for professional medical care. Always follow your healthcare professional's instructions. ?? * Wendi Li RN: PERFORM Event Display: Patient Education Leaflets Authored Date: [id number] Soft Diet ?? [id number] Soft Diet Your healthcare provider has prescribed a soft diet. This means eating foods that are soft, low in fiber, and easy to digest. This diet is for people with digestive problems. This should not be confused with a soft diet that is prescribed for people with issues chewing and swallowing. A soft diet provides foods that are easy to chew and swallow. It will reduce or prevent stomach pain or discomfort. Foods should be bite-sized and very soft or moist. Follow your healthcare provider???s specific instructions about what foods and drinks you may have. The general guidelines below can help you get started on this diet. Beverages OK: Milk, tea, coffee, fruit juices, carbonated beverages, nutrition shakes, and drinks (Note: Thinliquids may be hard to swallow. They may need to be thickened.) Don't have: All are OK, unless they need to be thickened ?? Breads and crackers OK: Refined white, wheat, or seedless rye bread; haroldo or soda crackers that have been moistened; plain rolls or bagels; very soft tortillas Don't have: Whole-grain breads, rolls, or bagels with nuts, raisins, or seeds; crackers, croutons, taco shells ?? Cereals and grains OK: Cooked cereals, plain dry cereals that have been moistened, plain macaroni, spaghetti, noodles,rice Don't have: Whole-grain cereals and granola, or cereals containing bran, raisins, seeds or nuts; coconut; brown or wild rice ?? Desserts and sweets OK: Moist cake; soft fruit pie with bottom crust only; soft cookies moistened in milk or other liquid; gelatin, custard, pudding, plain ice cream, plain sherbet, sugar, honey, clear jelly Don't have: Pastries, desserts, and??ice cream that have nuts, coconut, seeds, or dried fruit; popcorn; chips of any kind, including potato chips and tortilla chips; jam, marmalade ?? Eggs and cheese OK: Poached, soft boiled, or scrambled eggs; cottage cheese, ricotta cheese, cream cheese, cheese sauces, or cheese melted in other dishes Don't have: [place] fried eggs, cheese slices and cubes ?? Fruits OK: Avocado, banana, baked peeled apple, applesauce, peeled ripe peaches or pears, canned fruit (apricots, cherries, peaches, pears), melons Don't have: Raw apple, dried fruits, coconut, maya, pineapple, grapes, fruit zeina, fruit snacks ?? Meat and fish OK: All fresh meat, poultry, or fish that is cooked??until tender Don't have: Meat, fish, or poultry that is fried; tough or stringy meat, including alvarez, sausage, bratwurst, jerky, corned beef ?? Other protein foods OK: Tofu, baked beans, Don't have: Deep-fried tofu; crunchy peanut or other nut or seed butters; nuts or seeds that are whole or chopped ?? Soups OK: All soups, but they may need to be thickened. Thin liquid may be too hard to swallow. Don't have: Soups made with stringy meat pieces or chunky vegetables ?? Vegetables OK: Peeled and well-cooked potatoes or sweet potatoes; fresh, cooked, canned, or frozen vegetables without seeds, skin, or coarse fiber Don't have: Raw vegetables, deep-fried vegetables (such as tempura), and corn ?? Last Reviewed Date: 2022 ?? [employer]. All rights reserved. This information is not intended as a substitute for professional medical care. Always follow your healthcare professional's instructions. ?? * Wendi Li RN: PERFORM Event Display: Patient Education Leaflets Authored Date: [id number] Dental Cavity ?? [id number] Dental Cavity A dental cavity is a pit or crater in the surface (enamel) of a tooth. Adults and children can get cavities. A cavity exposes the sensitive inner layer of the tooth and causes pain. If the cavity isn???t treated by a dentist, it will get bigger. It may enter the pulp and cause an infection or pocket of pus (abscess) in the bone at the root end of the tooth. An infection in the tooth is a much more serious problem than a cavity. If the tooth gets infected, you'll need a root canal or the whole tooth taken out (extraction). The pain in your tooth may be worse if you eat sweets or have hot or cold food or drinks. It may spread from the tooth to your ear or the part of your jaw on the same side. Home care Follow these tips when caring for yourself at home: ??? Don't have sweets or hot and cold foods anddrinks. Your tooth may be sensitive to changes in temperature. ??? Put a cold pack on your jaw overthe sore area to help reduce pain. ??? You may use [id number] medicine to ease pain, unless another medicine was prescribed. If you have long-term (chronic) liver or kidney disease, talk with your healthcare provider before using acetaminophen or ibuprofen. Also talk with your provider if you???ve had a stomach ulcer or GI (gastrointestinal) bleeding. ??? If you have signs of an infection, you will be given an antibiotic. Take it as directed. ?? Follow-up care Follow up with your dentist, or as advised. Your pain may go away with the treatment given today. But only a dentist can diagnose and treat this problem to prevent further tooth damage. ?? Call 911 Call 911 if any of the following occur: ??? Trouble swallowing or breathing ??? Weakness or fainting ??? Abnormal drowsiness ??? Confusion ??? Headache or stiff neck ??? Vision problems ?? When to get medical advice Call your healthcare provider right away??if any of the following occur: ??? Red or swollen face ??? Pain gets worse or spreads to your neck ??? Fever of 100.4 ??F (38??C) or higher, or as directed by your provider ??? Pus drains from the tooth or gum ?? Last Reviewed Date: 2022 ?? 0230-0350 [employer]. All rights reserved. This information is not intended as a substitute for professional medical care. Always follow your healthcare professional's instructions. ?? Patient Care team information Care Team Personnel Name: Vidhya Grace RN Position: [facility] RN Member Role: Primary Care Nurse Name: Sisi Hernandez MD Position: [facility] Physician - Primary Care Member Role: PCP Address: [address] [place] [address]- Telecom: Name: Lizzette To RN Position: [facility] RN Member Role: Primary Care Nurse Name: Karolina Adkins MD Position: [facility] Physician - Primary Care Member Role: [employer] Physician Address: [address] [facility] [place] [address]- [place] Tele[employer]: Name: Isadora Godfrey RN Position: [facility] RN Member Role: Primary Care Nurse Name: Rossy Rowe RN Position: [facility] SN RN Member Role: Primary Care Nurse Name: Cindi Hayward RN Position: [facility] RN Member Role: Primary Care Nurse Name: Nicole Hernandez RN Position: [facility] RN Member Role: Primary Care Nurse Name: Zac Castillo RN Position: [facility] ED RN W/OE and Tasks Member Role: Primary Care Nurse Name: Bela Sherman RN Position: [facility] Hospital Tooth Cutter Clutch Member Role: Primary Care Nurse Name: Jeanne Grande RN Position: [facility] RN Member Role: Primary Care Nurse Care Team Related Persons Name: BEAR TURNER Name: BEAR TURNER SECONDARY Name: ISATU ECKERT Name: ALANNAH VERDE PRIMARY Name: ADRY DURANT Name: PANCHO JEROME Insurance Providers Guarantor name: ANSELMO TURNER Health Plan Information #: 1 Payer: [facility] Member Number: [id number] Policy Number: NA Group Number: [id number] Health Plan Information #: 2 Payer: [facility] Member Number: [id number] Policy Number: NA Group Number: [id number]
--- OUTSIDE RECORDS SUMMARY | 2024-08-28 16:01 | XMS_ITS | Data Portability ---
Author Organization [place] - [facility], Allergy Address [address] [place] [address] Care Team Providers Care Heating Engineer Name Role Phone JAZMIN SANCHES Primary Care [...] and she will follow up with her multi care technician for hearing aid adjustment. She will follow up in 6 months for routine debridement, or sooner with any concerns. [email or web address] Not available 04/06/2024 15:17:29 Plan of Treatment [...] Time Acute myringiti s of left ear [id number] 66549 Active 2017 Acute myringiti s, left ear; Note: Date Diagnosed : 8 3:58 PM (H73.002) Not Available [facility] 4 02:32:53 Conductiv e hearing loss 93180800 Active 2015 Conductiv e hearing loss, unilatera l, left ear, with unrestric rusty hearing on the contralat eral side; Note: Date Diagnosed : 01/12/2016 3:33 PM (H90.12) Not Available [facility] 4 02:32:44 Otorrhea of left ear 97314033734 99998 Active 2017 Otorrhea, left ear; Note: Date Diagnosed : 8 3:55 PM (H92.12) Not Available [facility] 4 02:32:48 History of radiation exposure 641641163 Active 2020 Personal history of exposure to therapeut ic radiation ; Note: Date Diagnosed : 08/25/2020 12:52 PM (Z92.3) Not Available [facility] 4 02:32:49 Impacted cerumen of bilateral ears 98480371543 62150 Active 2020 Impacted cerumen, bilateral ; Note: Date Diagnosed : 02/16/2021 3:38 PM (H61.23) Impacte d cerumen, bilateral ; Note: Date Diagnosed : 08/01/2020 2:25 PM (H61.23) ; Start Date : 1 Not Available [facility] 4 02:32:58 Pain of left temporoma ndibular joint 65203020882 054846 Active 2020 Arthralgi a of left temporoma ndibular joint; Note: Date Diagnosed : 02/16/2021 3:38 PM (M26.622) Not Available [facility] 4 02:32:35 Central perforati on of left tympanic membrane 82482705529 84860 Active 2017 Central perforati on of tympanic membrane, left ear; Note: Date Diagnosed : 8 3:55 PM (H72.2X2) Not Available [facility] 4 02:32:50 Problem Notes None recorded. Procedures Surgical History Date Name Laterality Status Provider Name and Address Organization Details Recorded Time 4 Comp Audio with Tymps (97939 & 31677) completed VAN MIRANDA [address], [phone], [facility] 04/06/2024 14:53:13 Cerumen removal without microscope bilat completed CLINT GASTELUM PA-C [address], [address], [facility] 04/06/2024 14:03:31 Imaging Results Imaging Date [...] Name and Address Organization Details Recorded Time 03468 hydrocort isone / neomycin / polymyxin B medicatio n other Not available Not available 12/10/2023 65355 7 RxNorm React ion: unkno wn, unspe cifie d;; Not Available [facility] 4 01:03:11 06323 cefoxitin medicatio n other Not available Not available 12/10/2023 2189 RxNorm React ion: unkno wn, unspe cifie d;; Not Available [facility] 4 01:03:15 Medications Name Sig Start Date Stop Date Status Note LastModified by Organization Details LastModified Time vitamin d3 1.25 mg (17354 u TAKE 1 CAPSULE BY MOUTH EVERY [...] 24 hr 02/16 completed Medicati on ID: [id number] D uration Value: 30 Brand Name: diltiaze m HCl Send Method: E-Prescr ibed Sub s Allowed: subs OK Speci al Instruct ion: TAKE 1 CAPSULE BY ORAL ROUTE EVERY DAY Medi cationGe nericNam e: diltiaze m HCl Not Available Not Available Not Available Nexium 40 mg capsule,d elayed release 08/01 completed Medicati on ID: [id number] D uration Value: 90 Brand Name: Nexium S end Method: E-Prescr ibed Sub s Allowed: subs OK Speci al Instruct ion: 1 CAPSULE BY MOUTH DAILY Me dication GenericN divine: Nexium Not Available Not Available Not Available diltiazem ER 360 mg capsule,2 4 hr,extend ed release 2020 active Medicati on ID: 668416 B rand Name: diltiaze m HCl Send [...] mg tablet 2021 active Medicati on ID: 872065 B rand Name: metoprol ol tartrate Send [...] xtend release 2021 active Medicati on ID: 427671 B rand Name: dextroam phetamin e-amphet amine Se nd Method: E-Prescr ibed Sub s Allowed: subs OK Medic ationGen ericName : dextroam phetamin e-amphet amine Not Available Not Available Not Available bisacodyl 5 mg tablet,de layed release TAKE 1 TABLET BY MOUTH EVERY DAY active Not Available Not Available No t Available acebutolo l 200 mg capsule 08/01 completed Medicati on ID: [id number] D uration Value: 15 Brand Name: acebutol ol Send Method: E-Prescr ibed Sub s Allowed: subs OK Speci al Instruct ion: TAKE 3 CAPSULES EVERY MORNING AND TAKE 3 CAPSULES EVERY EVENING Medicati onGeneri cName: acebutol ol Not Available Not Available Not Available fluoxetin e 20 mg capsule 08/01 completed Medicati on ID: [id number] D uration Value: 30 Brand Name: fluoxeti ne Send Method: E-Prescr ibed Sub s Allowed: subs OK Speci al Instruct ion: TAKE ONE CAPSULE BY MOUTH EVERY DAY [facility] cationGe nericNam e: fluoxeti ne Not Available Not Available Not Available dextroamp hetamine- amphetami ne 5 mg tablet 2021 active Medicati on ID: [id number] B rand Name: dextroam phetamin e-amphet amine [...] drops,sherry p 07/17 completed Medicati on ID: [id number] D uration Value: 20 Brand Name: neomycin -polymyx in-HC Se nd Method: E-Prescr ibed Sub s Allowed: subs OK Speci al Instruct ion: INSTILL 5 DROPS INTO LEFT EAR TWO TIMES A DAY FOR 7 DAYS Med icationG enericNa me: neomycin -polymyx in-HC Not Available Not Available Not Available Ciprodex 0.3 %-0.1 % ear drops,sherry pension 4 drop 2017 active Medicati on ID: [id number] D uration Value: 10 Prescri bed By [...] Updated DateTime 04/06/2024 154.94 cm 27.4 kg/m2 63788.89 g Jacqueline Paredes [place] - [facility] 04/06/2024 14:10:42 Social History None recorded. Functional Status None recorded. Mental Status None recorded. Family History Nothing Reported. Medical History No medical history recorded. Gynecological HistoryNo gynecological history recorded. Obstetrics History GPAL:G 0 P 0 0 0 0 Past Encounters Encounter ID Performer Location Encounter Start Date Encounter Closed Date Diagnosis/Indication Diagnosis SNOMED-CT Code Diagnosis ICD10 Code Diagnosis Note [id number] ROBERT FELDMAN MD [facility] [address] [facility] [place] [address] 04/06/2024 14:00:38 04/06/2024 15:09:40 Central perforation of left tympanic membrane [id number] 479809 H72.02 Impacted c erumen of bilateral ears 4082530630 413916 H61.23 Conductive hearing loss 07931465 H90.12 Audiologic al evaluation results: Right ear: [...] Dahl Member ID Guarantor Name 04/06/2024 1 [facility] (MEDICAID HMO) [id number] Ekta Arzate [id number] Ekta Arzate Notes Date Note Type Note [...] of medulloblastoma in 2012. ROBERT FELDMAN MD [address] [place] [address], [phone], [facility] - [facility] 04/07/2024 08:53:19 OBGyn Episode No OBEpisode recorded.
--- OUTSIDE RECORDS SUMMARY | 2024-08-28 16:01 | XMS_ITS | Continuity of Care Document ---
Author Organization [facility] Address [address] [place] [address]- Care Team Providers Care Diamond Die Maker Name Role Phone Mary KEATING, Sisi Almanza Primary Care Physician Encounter [facility] Date(s): 07/14/24 - 08/13/24 [facility] [address] [place] [address]- Encounter Type: Triage Allergies, Adverse Reactions, Alerts [...] PM EDT, Aerosol, Route to Pharmacy Electronically, [id number], [facility], ONLY ALBUTEROL HFA, CANCEL [...] Refills, Maintenance, 06/14/24 3:48:00 PM EST, Solution, [facility], Partial fill [...] 2:49:00 PM EST, Route to Pharmacy Electronically, [facility], Partial fill [...] Refills, Maintenance, 02/06/24 12:13:00 PM EDT, Solution, [facility], dose change, 155, cm, [...] 5 Refills, Maintenance, 11/22/23 3:46:00 PM EDT, [facility], Partial fill upon patient [...] 2 Refills, Maintenance, 02/06/24 12:19:00 PM EDT, [facility], 155, cm, 02/06/24 11:49:00 EDT,Height, [...] Refills, Maintenance, 08/01/22 6:06:00 AM EST, Tablet, [facility], [...] Confirmed 01/23/16 Active Memory change Confirmed Active *BHN/CCA/CC-Matiasflakito Vela- [phone]/[facility], active care coordination Confirmed Active POTS (postural orthostatic tachycardia syndrome) Confirmed Active 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 Social History Social History Type Response Smoking Status Never smoker; Tobacc o user in household: No entered on: 04/11/16 Sex Sex Representation Female (finding) Patient Care team information Care Team Personnel Name: Vidhya Grace RN Position: [facility] RN Member Role: Primary Care Nurse Name: Sisi Hernandez MD Position: [facility] Physician - Primary Care Member Role: PCP Address: [address] [place] [address] Telecom: Name: Lizzette To RN Position: [facility] SN RN Member Role: Primary Care Nurse Name: Karolina Adkins MD Position: [facility] Physician - Primary Care Member Role: Lifetime Consulting Physician Address: [address] [place] [address] [facility] [address] Telecom: Name: Isadora Godfrey RN Position: [facility] RN Member Role: Primary Care Nurse Name: Rossy Rowe RN Position: [facility] SN RN Member Role: Primary Care Nurse Name: Cindi Hayward RN Position: [facility] RN Member Role: Primary Care Nurse Name: Nicole Hernandez RN Position: [facility] RN Member Role: Primary Care Nurse Name: Zac Castillo RN Position: [facility] ED RN W/OE and Tasks Member Role: Primary Care Nurse Name: Bela Sherman RN Position: [facility] Hospital Armature Balancer Member Role: Primary Care Nurse Name: Jeanne Grande RN Position: [facility] RN Member Role: Primary Care Nurse Care Team Related Persons Name: BEAR TURNER Name: BEAR TURNER SECONDARY Name: ISATU ECKERT Name: ISAAC VERDE PRIMARY Name: ADRY DURANT Name: PANCHO JEROME Insurance Providers Guarantor name: ANSELMO GHOSHNETT Health Plan Information #: 1 Payer: [facility] Member Number: NA Policy Number: NA Group Number: NA
--- OUTSIDE RECORDS SUMMARY | 2024-08-28 16:02 | XMS_ITS | Referral Summary ---
Author Organization [facility] Address [address] [place] [address] Care Team Providers Care Water Softener Servicer And Installer Name Role Phone Sisi Hernandez MD Primary Care Provider [phone] Encounters Date Type Department Care Team Description 07/10/2024 Telephone [facility] [address] [place] [phone] Insurance Verifier: Aurora Medina Telephone Intake, Staff PAC Form/Letter/Records Request 06/24/2024 Telephone [facility] [address] [place] [phone] Insurance Verifier: Diann Tony MD prior auth request 06/22/2024 9:30 AM EST Office Visit [facility] G[facility] [address] [place] [phone] Diann Kumar MD Left lower quadrant pain (Primary Dx); Irritable bowel syndrome with constipation; Chronic idiopathic constipation; Hematochezia from Last 3 Months Allergies Active Allergy Reactions Criticality Noted Date Comments Cefoxitin Cough,Anaphylaxis High 05/09/2016 Medications tenapanor (IBSRELA) 50 mg tablet tabletIndications :Irritable bowel syndrome with constipation Take 1 tablet (50 mg total) by mouth 2 times a day. 60 tablet 2 06/23/2024 09/21/19 Active Social History Tobacco Use Types Packs/Day Years Used Date Smoking Tobacco: Never Assessed Comments Unknown Sex and Gender Information Value Date Recorded Sex Assigned at Female 04/13/2024 11:24 AM EDT Legal Sex Female 1:09 AM EDT Gender Identity Not on file Sexual Orientation Not on file Last Filed Vital Signs Vital Sign Reading Time Taken Comments Blood Pressure 160/60 06/22/2024 9:56 AM EST Pulse 90 06/22/2024 9:56 AM EST Temperature - - Respiratory Rate - - Oxygen Saturation - - Inhaled Oxygen Concentration - - Weight - - Height - - Body Mass Index - - Plan of Treatment Not on file Insurance [id number] MEDICAID Care Teams Water Softener Servicer And Installer Relationship Specialty Start Date End Date Sisi Hernanedz MD [facility] [place] [address] PCP - General Internal Medicine 04/13/24
--- OUTSIDE RECORDS SUMMARY | 2024-08-28 16:02 | XMS_ITS | Clinical Summary ---
Author Organization [facility] Address [address] [place] [address] Care Team Providers Care Staff Radiographer Name Role Phone Sisi Hernandez MD Primary Care Provider [phone] Allergies Active Allergy Reactions Criticality Noted Date Comments Cefoxitin Cough,Anaphylaxis High 05/09/2016 Medications tenapanor (IBSRELA) 50 mg tablet tabletIndications :Irritable bowel syndrome with constipation Take 1 tablet (50 mg total) by mouth 2 times a day. 60 tablet 2 06/23/2024 09/21/19 25 Active Encounters Date Type Department Care Team Description 07/10/2024 Telephone [facility] [address] [place] [phone] Blood Bank Specialist: Aurora Medina Telephone Intake, Staff PAC Form/Letter/Records Request 06/24/2024 Telephone [facility] [address] [place] [phone] Blood Bank Specialist: Diann Tony MD prior auth request 06/22/2024 9:30 AM EST Office Visit [facility] G[facility]ology [address] [place] [phone] Diann Kumar MD Left lower quadrant pain (Primary Dx); Irritable bowel syndrome with constipation; Chronic idiopathic constipation; Hematochezia from Last 3 Months Social History Tobacco Use Types Packs/Day Years [...] Mass Index - - Plan of Treatment Health Maintenance Due Date Last Done Comments Cervical Cancer Screening 1991 HIV Screening 1991 HPV and Pap Smear 1991 Hepatitis C Screening 1991 Pap Smear 1991 Varicella Vaccines (1 of 2 - 13+ 2-dose series) 11/20/2004 Hepatitis B Vaccines (1 of 3 - 19+ 3-dose series) 11/20/2010 Pneumococcal Vaccine: Pediat janes (0-5 Years) and At-Risk Patients (6-64 Years) (2 of 2 - PCV) 11/23/2017 11/23/2016 COVID-19 Vaccine (3 - 2023-2 5 season) 2024 10/14/2020, 09/05/2020 Alcohol/Substance Use Screening 07/29/2024 Depression Screening and Follow-Up 07/29/2024 Social Drivers of Health Sharron ual Screening 07/29/2024 DTaP,Tdap,and Td Vaccines (2 - Td or Tdap) 03/10/2028 03/10/2018 RSV Vaccine (60+ years old a nd patients) (1 - 1-dose 75+ series) 11/20/2066 Influenza Vaccine Completed 05/23/2024, , 06/04/2021, Additional history exists Insurance [id number] MEDICA[facility] Care Teams Staff Radiographer Relationship Specialty Start Date End Date Sisi Hernandez MD [address] [place] [address] PCP - General Internal Medicine 04/13/24
== END 2024-08-28 16:15 ==
PROVIDERS: PCP Internal Medicine; Visit Provider Hospitalist
DX: J45.40 Moderate persistent asthma, uncomplicated (principal); Z91.09 Other allergy status, other than to drugs and biological substances; R91.8 Other nonspecific abnormal finding of lung field; R74.8 Abnormal levels of other serum enzymes; I27.82 Chronic pulmonary embolism; R07.9 Chest pain, unspecified; M79.10 Myalgia, unspecified site
CPT/HCPCS: 99214

== ENCOUNTER 2024-09-11 08:40 | Outpatient (AMB) | payer OTHER, SELFPAY ==
--- NOTE | 2024-09-11 08:41 | MHC.OFFVIS ---
Intake Visit Reasons: Blood in stool Intake Note: Ekta presents as a video call. CC: She states that she is having constipation and not able to go to the bathroom. She ate last night so she is feeling bloated. When she is bloated she is having a lot urination. Allergies cefoxitin [CEFOXITIN] Allergy (Severe, Verified 09/11/24 08:41) Anaphylaxis sertraline Allergy (Severe, Verified 09/11/24 08:41) itching vancomycin [VANCOMYCIN] Allergy (Severe, Verified 09/11/24 08:41) Anaphylaxis HPI HPI Blood in stool: Details: 33 y/o female with POT syndrome, pacemaker, uterine fibroid and rectocele, meduloblastoma who is being called for f/u RECAP-initially [facility] pain in her stomach, when she ate- If she goes 3-4 hours without food she gets abdominal pain, often RUQ She feels like food sits in her stomach it just does not digest. Times as causes her nausea. Carafate 1 gm tid Previously treated with Rifaximin for SIBO- she now takes it intermittently, somewhat p.r.n. She was seeing Dr. Bello, as well as Dr. Leigh- Has always has GI problems, since she was a kid- The pain she has now is way different. Mostly epigastric, bloating She has had a pacemaker for 2 years sleep variable dx with narcolepsy, on armodafinil maybe affecting her appetite negative genetic tests for NF and colorectal d/o TESTS: EGD/colonoscopy 2015 -[facility]-02/2020-nml MRI A/P: no inflammation, stool burden noted duplex: mild raised velocities she had MR defecography with fibroid, rectocele repeat Colonoscopy/EGD 10/2021; Endoscopy Findings: erosive gastritis possible reta Colonoscopy Findings: internal hemorrhoids abnormal appearing TI Path: A. Duodenum, biopsy: Duodenal mucosa with mildly increased intraepithelial lymphocytes and preserved villous architecture; negative for T. whipplei. See comment. B. Stomach, biopsy: Oxyntic mucosa with mild chronic inactive inflammation; no Helicobacter organisms seen. C. Esophagus, random, biopsy: Active esophagitis (maximum eosinophil count focally up to 19 per high powered field). D. Terminal ileum, biopsy: Terminal ileal mucosa within normal limits. E. Colon, random, biopsy: Colonic mucosa within normal limits. LABS: neg celiac, b12, nml, pernicious anemia ab--neg, fat oren vits were nml, RAST -- pos for milk, hazelnut, wheat, egg CXR--nml Ba swallow-tablet passed easily, but sub optimal study as couldn drink the barium, reflux EGD 10/03/22 schatzki ring mild esophagitis lax LES dilation to 16 mm--no tears I referred her to pulm for hemoptysis w/u for sarcoid due to high TAMEKA--negative, but v high IgE and put on xolair for asthma sx she also had a qn of PTE, its is uncertain --awaiting rept CTPE she had a hysterectomy, and had rectocele repaired 07/31/22 I offered her a second opinion, ongoing constipation, ?benefit from subtotal colectomy she tried rifaximin but didn't help her sx INTERIM: she still has muscle pains and ache repeat aldolase was normal, CPK was not repeated I gave her creon due to panc elastase being v low, but when takes it gives her more constipation, but helps her appetite and abdominal pain can be hard to expel the stool, takes kassie tea which helps I advised her to open capsule and mix with foods stool is nasty appearing she was unable to tolerate motegrity, amitiza, linaclotide, lactulose - sutab trial --trulance worked best but her body stopped responding to it EXAM: GENERAL: The patient is well developed and nontoxic. Assessments 1. 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 [facility] Medical History Myalgia Environmental allergies Asthma Pulmonary emboli Pleuritic chest pain Abnormal serum angiotensin-converting enzyme level Cardiac arrhythmia Pulmonary nodules Dyspnea History of DVT (deep vein thrombosis) History of chemotherapy History of palpitations Hx of supraventricular tachycardia Narcolepsy Seasonal allergies Anxiety and depression Pacemaker Pernicious anemia B12 deficiency Active asthma POTS (postural orthostatic tachycardia syndrome) H/O brain tumor Surgical History History of repair of rectocele Hx of hysterectomy History of cardiac radiofrequency ablation (RFA) Hx of craniotomy H/O colonoscopy H/O esophagogastroduodenoscopy Hx of appendectomy Family History Mother Heart problem Maternal Grandfather Heart problem Paternal Grandmother Dementia Social History Household Members: None Are you a primary childcare provider to a significant other at home: No Do you presently have visiting nurse or other home services: Yes (COPIER AND PRINTER FIELD TECHNICIAN 4.5 week) Alcohol intake: current Alcohol intake frequency: a few times a month Patient Tobacco Use Status: Never used Tobacco Telehealth Telehealth Telehealth Platform: [email or web address] Location of provider rendering services: practice address Location of patient: address on file Patient Identification confirmed using: Name, : Yes Telehealth method: video Patient verbally consented to treatment: Yes Patient verbally consented to billing insurance company: Yes Patient informed of any privacy concerns related to visit: Yes Minutes spent on Phone/Video with Pt.: 30 Assessment & Plan Assessment & Plan (1) Low fecal elastase level: Code(s): R19.5 - Other fecal abnormalities Category: Medical Plan: see above (2) Epigastric abdominal pain: Code(s): R10.13 - Epigastric pain Category: Medical Plan: see above Orders: Orders MR abdomen wo/w con Today R19.5 - Other fecal abnormalities Glucose Fasting Today R10.13 - Epigastric pain, R19.5 - Other fecal abnormalities Creatine Kinase Total Today R10.13 - Epigastric pain, R19.5 - Other fecal abnormalities Hemoglobin A1c Today R10.13 - Epigastric pain, R19.5 - Other fecal abnormalities Fructosamine Today R10.13 - Epigastric pain, R19.5 - Other fecal abnormalities Medications: New plecanatide (Trulance) 3 mg PO DAILY 30 tabs 3RF Discontinued prucalopride (Motegrity) Discontinued Reason: Patient Completed Course 2 mg PO DAILY 30 tabs 1RF Coding Level of Care Code Tele Est Pt Level 4 (13876) Diagnoses Low fecal elastase level R19.5 Epigastric abdominal pain R10.13
--- OUTSIDE RECORDS SUMMARY | 2024-09-11 08:56 | XMS_ITS | Data Portability ---
Author Organization [place] - [facility], Allergy Address [address] [place] [address] Care Team Providers Care Housekeeper Head Name Role Phone JAZMIN SANCHES Primary Care [...] and she will follow up with her evp general counsel for hearing aid adjustment. She will follow up in 6 months for routine debridement, or sooner with any concerns. [email or web address] Not available 04/06/2024 15:17:29 Plan of Treatment [...] Time Acute myringiti s of left ear [id number] 07663 Active 2017 Acute myringiti s, left ear; Note: Date Diagnosed : 8 3:58 PM (H73.002) Not Available [facility] 4 02:32:53 Conductiv e hearing loss 70979342 Active 2015 Conductiv e hearing loss, unilatera l, left ear, with unrestric rusty hearing on the contralat eral side; Note: Date Diagnosed : 01/12/2016 3:33 PM (H90.12) Not Available [facility] 4 02:32:44 Otorrhea of left ear [id number] 97169 Active 2017 Otorrhea, left ear; Note: Date Diagnosed : 8 3:55 PM (H92.12) Not Available [facility] 4 02:32:48 History of radiation exposure 676397973 Active 2020 Personal history of exposure to therapeut ic radiation ; Note: Date Diagnosed : 08/25/2020 12:52 PM (Z92.3) Not Available [facility] 4 02:32:49 Impacted cerumen of bilateral ears 40610808627 93561 Active 2020 Impacted cerumen, bilateral ; Note: Date Diagnosed : 02/16/2021 3:38 PM (H61.23) Impacte d cerumen, bilateral ; Note: Date Diagnosed : 08/01/2020 2:25 PM (H61.23) ; Start Date : 1 Not Available [facility] 4 02:32:58 Pain of left temporoma ndibular joint [id number] 421409 Active 2020 Arthralgi a of left temporoma ndibular joint; Note: Date Diagnosed : 02/16/2021 3:38 PM (M26.622) Not Available [facility] 4 02:32:35 Central perforati on of left tympanic membrane 06064984365 87115 Active 2017 Central perforati on of tympanic membrane, left ear; Note: Date Diagnosed : 8 3:55 PM (H72.2X2) Not Available [facility] 4 02:32:50 Problem Notes None recorded. Procedures Surgical History Date Name Laterality Status Provider Name and Address Organization Details Recorded Time 4 Comp Audio with Tymps (39092 & 29741) completed VAN MIRANDA [address], [address], [facility] 04/06/2024 14:53:13 Cerumen removal without microscope bilat completed CLINT GASTELUM PA-C [address], [address], [facility] 04/06/2024 14:03:31 Imaging Results Imaging Date [...] Name and Address Organization Details Recorded Time 64674 hydrocort isone / neomycin / polymyxin B medicatio n other Not available Not available 12/10/2023 74166 7 RxNorm React ion: unkno wn, unspe cifie d;; Not Available [facility] 4 01:03:11 23373 cefoxitin medicatio n other Not available Not available 12/10/2023 2189 RxNorm React ion: unkno wn, unspe cifie d;; Not Available [facility] 4 01:03:15 Medications Name Sig Start Date Stop Date Status Note LastModified by Organization Details LastModified Time vitamin d3 1.25 mg (41036 u TAKE 1 CAPSULE BY MOUTH EVERY [...] 24 hr 02/16 completed Medicati on ID: [id number] D uration Value: 30 Brand Name: diltiaze m HCl Send Method: E-Prescr ibed Sub s Allowed: subs OK Speci al Instruct ion: TAKE 1 CAPSULE BY ORAL ROUTE EVERY DAY Medi cationGe nericNam e: diltiaze m HCl Not Available Not Available Not Available Nexium 40 mg capsule,d elayed release 08/01 completed Medicati on ID: [id number] D uration Value: 90 Brand Name: Nexium S end Method: E-Prescr ibed Sub s Allowed: subs OK Speci al Instruct ion: 1 CAPSULE BY MOUTH DAILY Me dication GenericN divine: Nexium Not Available Not Available Not Available diltiazem ER 360 mg capsule,2 4 hr,extend ed release 2020 active Medicati on ID: [id number] B rand Name: diltiaze m HCl Send [...] mg tablet 2021 active Medicati on ID: [id number] B rand Name: metoprol ol tartrate Send [...] xtend release 2021 active Medicati on ID: [id number] B rand Name: dextroam phetamin e-amphet amine Se nd Method: E-Prescr ibed Sub s Allowed: subs OK Medic ationGen ericName : dextroam phetamin e-amphet amine Not Available Not Available Not Available bisacodyl 5 mg tablet,de layed release TAKE 1 TABLET BY MOUTH EVERY DAY active Not Available Not Available No t Available acebutolo l 200 mg capsule 08/01 completed Medicati on ID: [id number] D uration Value: 15 Brand Name: acebutol ol Send Method: E-Prescr ibed Sub s Allowed: subs OK Speci al Instruct ion: TAKE 3 CAPSULES EVERY MORNING AND TAKE 3 CAPSULES EVERY EVENING Medicati onGeneri cName: acebutol ol Not Available Not Available Not Available fluoxetin e 20 mg capsule 08/01 completed Medicati on ID: [id number] D uration Value: 30 Brand Name: fluoxeti ne Send Method: E-Prescr ibed Sub s Allowed: subs OK Speci al Instruct ion: TAKE ONE CAPSULE BY MOUTH EVERY DAY [facility] cationGe nericNam e: fluoxeti ne Not Available Not Available Not Available dextroamp hetamine- amphetami ne 5 mg tablet 2021 active Medicati on ID: [id number] B rand Name: dextroam phetamin e-amphet amine [...] drops,sherry p 07/17 completed Medicati on ID: [id number] D uration Value: 20 Brand Name: neomycin -polymyx in-HC Se nd Method: E-Prescr ibed Sub s Allowed: subs OK Speci al Instruct ion: INSTILL 5 DROPS INTO LEFT EAR TWO TIMES A DAY FOR 7 DAYS Med icationG enericNa me: neomycin -polymyx in-HC Not Available Not Available Not Available Ciprodex 0.3 %-0.1 % ear drops,sherry pension 4 drop 2017 active Medicati on ID: [id number] D uration Value: 10 Prescri bed By [...] Updated DateTime 04/06/2024 154.94 cm 27.4 kg/m2 94779.89 g Jacqueline Paredes [place] - [facility] 04/06/2024 14:10:42 Social History None recorded. Functional Status None recorded. Mental Status None recorded. Family History Nothing Reported. Medical History No medical history recorded. Gynecological HistoryNo gynecological history recorded. Obstetrics History GPAL:G 0 P 0 0 0 0 Past Encounters Encounter ID Performer Location Encounter Start Date Encounter Closed Date Diagnosis/Indication Diagnosis SNOMED-CT Code Diagnosis ICD10 Code Diagnosis Note [id number] ROBERT FELDMAN MD [facility] [address] [facility] [place] [address] 04/06/2024 14:00:38 04/06/2024 15:09:40 Central perforation of left tympanic membrane [id number] 728858 H72.02 Impacted c erumen of bilateral ears 4573716800 098956 H61.23 Conductive hearing loss 74597737 H90.12 Audiologic al evaluation results: Right ear: [...] Dahl Member ID Guarantor Name 04/06/2024 1 [facility] (MEDICAID HMO) [id number] Ekta Arzate [id number] Ekta Arzate Notes Date Note Type Note [...] of medulloblastoma in 2012. ROBERT FELDMAN MD [address] [place] [address], [address], [facility] - [facility] 04/07/2024 08:53:19 OBGyn Episode No OBEpisode recorded.
--- OUTSIDE RECORDS SUMMARY | 2024-09-11 08:56 | XMS_ITS | Clinical Summary ---
Author Organization Patient Business Ser [facility] Address [address] [place] [address] Care Team Providers Care Bankman Name Role Phone Sisi Hernandez MD Primary Care Provider [phone] Allergies Active Allergy Reactions Criticality Noted Date Comments Cefoxitin Cough 01/20/2021 Other reaction(s): Tightness in throat Cephalexin 01/20/2021 Fruit Extracts 11/12/2022 Other Reaction(s): Rash/Dermatitis not specific Sertraline Other 11/12/2022 Other reaction(s): skin burning Vancomycin 11/12/2022 Other reaction(s): Itching of skin, Throat itching Medications albuterol sulfate (PROAIR HFA INHL) Inhale into the lungs. Active budesonide-form oteroL (SYMBICORT) 160-4.5 mcg/actuation inhaler Inhale 2 Puffs into the lungs 2 times daily. Active cyanocobalamin, vitamin B-12, 1,000 mcg/15 mL liquid Take by mouth. Activ e LORazepam (ATIVAN) 0.5 mg tablet Take 1 Tablet by mouth every 6 hours as needed. Active nitroglycerin (NITROSTAT) 0.[address] 1 Tablet under the tongue every 5 minutes as needed for Chest pain. Max of 3 doses / 15 min Call 911 and seek medical attention if pain persist 4 Active verapamil SR (CALAN-SR) 240 mg CR tablet Take 1 Tablet by mouth daily. 4 Active lisdexamfetamin e dimesylate (VYVANSE ORAL) Take by mouth. Active Active Problems Problem Noted Date Diagnosed Date Right leg pain 09/05/2022 Sinoatrial node dysfunction 09/05/2022 Inappropriate sinus tachycardia 02/05/2021 Family History Medical History Relation Name Comments Hypertension Maternal Grandfather Hypertension Mother Other: Heart Disease Mother Relation Name Status Comments Maternal Grandfather Mother Social History Tobacco Use Types Packs/Day Years Used Date Smoking Tobacco: Never Smokeless Tobacco: Never Alcohol Use Standard Drinks/Week Comments Yes 1 (1 standard drink = 0.6 oz pur e alcohol) Comments Unknown Sex and Gender Information Value Date Recorded Sex Assigned at Not on file Legal Sex Female 12:00 AM EDT Gender Identity Not on file Sexual Orientation Not on file Obstetrics History Last Filed Vital Signs Vital Sign Reading Time Taken Comments Blood Pressure 110/72 03/17/2024 9:54 AM EDT Sitting L Arm Pulse 87 03/17/2024 9:54 AM EDT Temperature - - Respiratory Rate - - Oxygen Saturation - - Inhaled Oxygen Concentration - - Weight 70 kg (154 lb 4.8 oz) 03/17/2024 9:54 AM EDT Height 154.9 cm (5' 1 ) 03/17/2024 9:54 AM EDT Body Mass Index 29.15 03/17/2024 9:54 AM EDT Plan of Treatment Upcoming Encounters Date Type Department Care Team (Late st Contact Info) Description 01/26/2025 4:30 PM EDT Ancillary Procedure [facility] [address] [facility] [address] [place] [address] Health Maintenance Due Date Last Done Comments Hepatitis B Vaccines (1 of 3 - 19+ 3-dose series) 11/20/2010 Cervical Cancer Screening: Pap Smear 11/20/2012 Pneumococcal Vaccine: Pediatrics (0 to 5 Years) and At-Risk Patients (6 to 64 Years) (2 of 2 - PCV) 11/23/2017 11/23/2016 COVID-19 Vaccine (3 - Moderna risk series) 11/11/2020 10/14/2020, 09/05/2020 Depression Screening 05/12/2022 HIV Screening 05/12/2022 Hepatitis C Screening 05/12/2022 Social Influencers of Health Screening 05/12/2022 DTaP,Tdap,and Td Vaccines (2 - Td or Tdap) 03/10/2028 03/10/2018 Influenza Vaccine Completed 05/23/2024, , 06/04/2021, Additional history exists HIB Vaccines Aged Out No longer eligi ble based on patient's age to complete this topic HPV Vaccines Aged Out No longer eligi ble based on patient's age to complete this topic Hepatitis A Vaccines Aged Out No long er eligible based on patient's age to complete this topic IPV Vaccines Aged Out No longer eligi ble based on patient's age to complete this topic MMR Vaccines Aged Out No longer eligi ble based on patient's age to complete this topic Meningococcal ACWY Vaccine Aged Out N o longer eligible based on patient's age to complete this topic Meningococcal B Vacine Aged Out No lo nger eligible based on patient's age to complete this topic RSV Immunization Patients Under 20 months Aged Out No longer eligible based on patient's age to complete this topic Varicella Vaccines Aged Out No longer eligible based on patient's age to complete this topic Medical Devices Implanted Type Area Trimming Press Operator Device Identifier Shelf Expiration Date Model / Serial / Lot Medt-Card Advisa Dr Rodriguez [id number] Implanted:08/2016 (Quantity not on file) Cardiac Pacemaker [employer] - CARDIAC RHYTH-CRDM ADVISA DR RODRIGUEZ [id number] / [id number] / Insurance [employer] [place] MED[place]ID ADVANTAGE Care Teams Bankman Relationship Specialty Start Date End Date Sisi Hernandez MD [address] [place] [address] PCP - General 01/20/13
--- OUTSIDE RECORDS SUMMARY | 2024-09-11 08:56 | XMS_ITS | Continuity of Care Document ---
Author Organization [facility] Address [address] [place] [address]- Care Team Providers Care Fashion Design Professor Name Role Phone Mary KEATING, Sisi Almanza Primary Care Physician Encounter [facility] Date(s): 08/03/24 - 09/02/24 [facility] [address] [place], [place] [address] Encounter Type: Triage Allergies, Adverse Reactions, Alerts [...] PM EDT, Aerosol, Route to Pharmacy Electronically, [id number], [facility], ONLY ALBUTEROL HFA, CANCEL [...] Refills, Maintenance, 06/14/24 3:48:00 PM EST, Solution, [facility], Partial fill [...] 2:49:00 PM EST, Route to Pharmacy Electronically, [facility], Partial fill upon patient request [...] Refills, Maintenance, 02/06/24 12:13:00 PM EDT, Solution, [facility], dose change, 155, [...] 5 Refills, Maintenance, 11/22/23 3:46:00 PM EDT, [facility], Partial fill upon [...] 2 Refills, Maintenance, 02/06/24 12:19:00 PM EDT, [facility], 155, cm, [...] Refills, Maintenance, 08/01/22 6:06:00 AM EST, Tablet, [facility] 3, Partial [...] Active Memory change Confirmed Active *BHN/CCA/CC-Matiasflakito Vela- [phone]/Health senior care, active care coordination Confirmed Active [...] - Primary Care Member Role: PCP Address: [address] [place] [address] Telecom: Name: Lizzette To RN Position: [facility] SN RN Member Role: Primary Care Nurse Name: Karolina Adkins MD Position: [facility] Physician - Primary Care Member Role: Lifetime Consulting Physician Address: [address] [place] [address] [facility] [address] Telecom: Name: Isadora Godfrey RN [facility] Sherman RN Position: [facility] Hospital Manager Global Member Role: Primary Care Nurse Name: Jeanne Grande RN Position: [facility] RN Member Role: Primary Care Nurse Care Team Related Persons Name: BEAR TURNER Name: BEAR TURNER SECONDARY Name: ISATU ECKERT Name: ISAAC VERDE PRIMARY Name: ADRY DURANT Name: PANCHO JEROME Insurance Providers Guarantor name: ANSELMO [facility] Plan Information #: 1 [facility] Member Number: NA Policy Number: NA Group Number: NA
--- OUTSIDE RECORDS SUMMARY | 2024-09-11 08:56 | XMS_ITS | Referral Summary ---
Author Organization [facility] Address [address] [place] [address] Care Team Providers Care Clinical Services Manager Name Role Phone Sisi Hernandez MD Primary Care Provider Encounters Date Type Department Care Team Description 07/10/2024 Telephone [facility] [address] [place] [phone] Panel Coverer: Aurora Medina Telephone Intake, Staff PAC Form/Letter/Records Request 06/24/2024 Telephone [facility] [address] [place] [phone] Panel Coverer: Diann Tony MD prior auth request 06/22/2024 9:30 AM EST Office Visit [facility] G[facility] [address] [place] [phone] Diann Kumar MD Left lower quadrant pain [...] Plan of Treatment Not on file Insurance [facility] MEDICAID Care Teams Clinical Services Manager Relationship Specialty Start Date End Date Sisi Hernandez MD [facility] [place] [address] PCP - General Internal Medicine 04/13/24
--- OUTSIDE RECORDS SUMMARY | 2024-09-11 08:56 | XMS_ITS | Clinical Summary ---
Author Organization [facility] Address [address] [place] [address] Care Team Providers Care Mouthpiece Maker Name Role Phone Sisi Hernandez MD Primary Care Provider [phone] Allergies Active Allergy Reactions Criticality Noted Date Comments Cefoxitin Cough,Anaphylaxis High 05/09/2016 Medications tenapanor (IBSRELA) 50 mg tablet tabletIndications :Irritable bowel syndrome with constipation Take 1 tablet (50 mg total) by mouth 2 times a day. 60 tablet 2 06/23/2024 09/21/19 25 Active Encounters Date Type Department Care Team Description 07/10/2024 Telephone [facility] [address] [place] [phone] Paper Wood Cutter: Aurora Medina Telephone Intake, Staff PAC Form/Letter/Records Request 06/24/2024 Telephone [facility] [address] [place] [address] Paper Wood Cutter: Diann Tony MD prior auth request 06/22/2024 9:30 AM EST Office Visit [facility] [address] [place] [phone] Diann Kumar MD Left lower quadrant pain [...] Pediat janes (0-5 Years) and At-Risk Patients (6-50 Years) (2 of 2 - PCV) 11/23/2017 [...] 05/23/2024, , 06/04/2021, Additional history exists Insurance [id number] MEDICAID Care Teams Mouthpiece Maker Relationship Specialty Start Date End Date Sisi Hernandez MD [address] [place] [address] PCP - General Internal Medicine 04/13/24
== END 2024-09-11 10:06 | disposition home or self-care (01) ==
LOC: HO.HGI 08:40
PROVIDERS: PCP Internal Medicine; Visit Provider Internal Medicine Gastroenterology
DX: R19.5 Other fecal abnormalities (principal); R10.13 Epigastric pain
CPT/HCPCS: 99214

== ENCOUNTER → 2024-09-11 08:40 | Outpatient (BNVA) | payer OTHER, SELFPAY | PROVIDERS: PCP Internal Medicine; Visit Provider Internal Medicine Gastroenterology ==

== ENCOUNTER 2024-09-23 14:08 | Outpatient (REF) | payer OTHER, SELFPAY ==
[2024-09-23 16:00] LABS: Estimated Average Glucose 105 mg/dL; Hemoglobin A1C 114.9447 umol/L; Hemoglobin A1c % 5.3 % (<6.0)
[2024-09-23 16:01] LABS: Glucose Fasting 82 mg/dL (60-99)
--- OUTSIDE RECORDS SUMMARY | 2024-09-23 17:26 | XMS_ITS | Clinical Summary ---
Author Organization Patient Business Ser [facility] Address [address] [place] [address] Care Team Providers Care Curtain Stitcher Name Role Phone Sisi Hernandez MD Primary Care Provider [phone] Allergies Active Allergy Reactions Criticality Noted Date Comments Cefoxitin Cough 01/20/2021 Other reaction(s): Tightness in throat Cephalexin 01/20/2021 Fruit Extracts 11/12/2022 Other Reaction(s): Rash/Dermatitis not specific Sertraline Other 11/12/2022 Other reaction(s): skin burning Vancomycin 11/12/2022 Other reaction(s): Itching of skin, Throat itching Medications albuterol sulfate (PROAIR HFA INHL) Inhale into the lungs. Active budesonide-for moteroL (SYMBICORT) 160-4.5 mcg/actuation inhaler Inhale 2 Puffs into the lungs 2 times daily. Active cyanocobalamin , vitamin B-12, 1,000 mcg/15 mL liquid Take by mouth. Active LORazepam (ATIVAN) 0.5 mg tablet Take 1 Tablet by mouth every 6 hours as needed. Active verapamil SR (CALAN-SR) 240 mg CR tablet Take 1 Tablet by mouth daily. 03/17/20 24 Active lisdexamfetami ne dimesylate (VYVANSE ORAL) Take by mouth. Active nitroglycerin (NITROSTAT) 0.[address] 1 TABLET UNDER TONGUE EVERY 5 MIN NEEDED FOR CHEST PAIN, MAX OF 3 DOSES/15 MIN CALL 911/SEEK MEDICAL ATTENTION IF PAIN PERSISTS 25 tablet 2 09/17/19 25 Active nitroglycerin (NITROSTAT) 0.[address] 1 Tablet under the tongue every 5 minutes as needed for Chest pain. Max of 3 doses / 15 min Call 911 and seek medical attention if pain persist 09/05/19 24 025 Discontinued Active Problems Problem Noted Date Diagnosed Date Right leg pain 09/05/2022 Sinoatrial node dysfunction 09/05/2022 Inappropriate sinus tachycardia 02/05/2021 Encounters Date Type Department Care Team Description 09/20/2024 7:20 PM EST Ancillary Procedure [facility] [address] [facility] [address] [place] [address] Arrived from Last 3 Months Family History Medical History Relation Name Comments [...] Description 01/26/2025 4:30 PM EDT Ancillary Procedure [facility] [address] [facility] [address] [place] [address] Health Maintenance Due Date Last Done Comments [...] this topic Medical Devices Implanted Type Area Case Management Manager Device Identifier Shelf Expiration Date Model / Serial / Lot Medt-Card Advisa Dr De Guzman [id number] Implanted:08/2016 (Quantity not on file) Cardiac Pacemaker [employer] - CARDIAC RHYTH-CRDM ADVISA DR DE GUZMAN [id number] / [id number] / Procedures Procedure Name Priority Date/Time Associated Diagnosis Comments CARDIAC DEVICE CHECK- REMOTE- MURJ Routine 09/20/2024 7:19 PM EST from Last 3 Months Results * Cardiac device check - Remote- MURJ (09/20/2024 7:19 PM EST) Date Time Interrogation Session [id number] CV DEVICE CHECK Type Interrogation Session Remote CV DEVICE CHECK Implantable Pulse Generator Case Management Manager MDT CV DEVICE CHECK Implantable Pulse Generator Type IPG CV DEVICE CHECK Implantable Pulse Generator Model Advisa DR DE GUZMAN [id number] CV DEVICE CHECK Implantable Pulse Generator Serial Number [id number] CV DEVICE CHECK Implantable Pulse Generator Implant Date 20170530 CV DEVICE CHECK Battery Remaining Longevity 46.0 CV DEVICE CHECK Battery Voltage 2.970 CV D EVICE CHECK Battery BRIDGE REPAIR CREW PERSON Trigger 2.830 CV DEVICE CHECK Battery Status Middle of Service CV DEVICE CHECK Silver Statistic RA Percent Paced 19.03 CV DEVICE CHECK Silver Statistic RV Percent Paced 0.34 CV DEVICE CHECK Atrial Tachy Statistic AT/AF Deridder Percent 0.00 CV DEVICE CHECK Lead Channel Sensing Intrinsic Amplitude 0.375 CV DEVICE CHECK Lead Channel Setting Sensing Sensitivity 0.30 CV DEVICE CHECK Lead Channel Impedance Value 437 CV DEVICE CHECK Lead Channel Pacing Threshold Amplitude 0.500 CV DEVICE CHECK Lead Channel Pacing Threshold Pulse Width 0.4 CV DEVICE CHECK Lead Channel RA Pacing Threshold Date 2024-09-16 CV DEVICE CHECK Lead Channel Setting Pacing Amplitude 1.500 CV DEVICE CHECK Lead Channel Setting Pacing Pulse Width 0.4 CV DEVICE CHECK Lead Channel Sensing Intrinsic Amplitude 5.500 CV DEVICE CHECK Lead Channel Setting Sensing Sensitivity 2.80 CV DEVICE CHECK Lead Channel Impedance Value 475 CV DEVICE CHECK Lead Channel Pacing Threshold Amplitude 0.625 CV DEVICE CHECK Lead Channel Pacing Threshold Pulse Width 0.4 CV DEVICE CHECK Lead Channel RV Pacing Threshold Date 2024-09-16 CV DEVICE CHECK Lead Channel Setting Pacing Amplitude 2.000 CV DEVICE CHECK Lead Channel Setting Pacing Pulse Width 0.4 CV DEVICE CHECK Silver Setting Mode (NBG Code) AAIR<=>DDDR CV DEVICE CHECK Silver Setting Lower Rate Limit 60 CV DEVICE CHECK Silver Setting AT Mode Switch Rate 171 CV DEVICE CHECK Silver Setting Maximum Tracking Rate 130 CV DEVICE CHECK Silver Setting Maximum Sensor Rate 130 CV DEVICE CHECK Silver Setting PAV Delay 180 CV DEVICE CHECK Silver Setting KARTIK Delay 150 CV DEVICE CHECK Zone Setting Type Category AT/AF CV DEVICE CHECK Rate 171 CV DEVICE CHECK Therapies Some Rx Off CV DEVIC E CHECK Zone Setting Status Monitor CV DEVICE CHECK Zone ID 2 CV DEVICE CHECK Zone Setting Type Category VT CV DEVICE CHECK Rate 171 CV DEVICE CHECK Zone Setting Status ENABLED CV DEVICE CHECK Zone ID 6 CV DEVICE CHECK Date of Service 2024-09-20 CV DEVICE CHECK Anatomical Region Laterality Modality Device Interroga tion 09/16/2024 11:1 1 AM EST Impressions 09/20/2024 7:16 PM EST Tachycardia: SVT * Stored EGMs are consistent with or suggestive of Supraventricular Tachycardia *Overall rare controlled * Total number of events: 25 Narrative Procedure Note Harley Veliz MD - 09/20/2024 IMPRESSION: Tachycardia: SVT * Stored EGMs are consistent with or suggestive of SupraventricularTachycardia *Overall rare controlled * Total number of events: 25 us Harley Veliz MD CV IMPLANTABLE CARDIAC DEV ICE PROCEDURES Final Result from Last 3 Months Insurance [employer] MED[place] ADVANTAGE Care Teams Curtain Stitcher Relationship Specialty Start Date End Date Sisi Hernandez MD [address] [place] [address] PCP - General 01/20/13
--- OUTSIDE RECORDS SUMMARY | 2024-09-23 17:27 | XMS_ITS | Clinical Summary ---
Author Organization [facility] Address [address] [place] [address] Care Team Providers Care Fitness Sales Associate Name Role Phone Sisi Hernandez MD Primary Care Provider [phone] Allergies Active Allergy Reactions Criticality Noted Date Comments Cefoxitin Cough,Anaphylaxis High 05/09/2016 Medications tenapanor (IBSRELA) 50 mg tablet tabletIndications :Irritable bowel syndrome with constipation Take 1 tablet (50 mg total) by mouth 2 times a day. 60 tablet 2 09/21/19 25 Encounters Date Type Department Care Team Description 07/10/2024 Telephone [facility] [address] [place] [address] Meat Stock Clerk: Aurora Medina Telephone Intake, Staff PAC Form/Letter/Records Request 06/24/2024 Telephone [facility] [address] [place] [address] Meat Stock Clerk: Diann Tony MD prior auth request from Last 3 Months Social History Tobacco [...] 05/23/2024, , 06/04/2021, Additional history exists Insurance [id number] MEDICAID Care Teams Fitness Sales Associate Relationship Specialty Start Date End Date Sisi Hernandez MD [facility] [place] [address] PCP - General Internal Medicine 04/13/24
--- OUTSIDE RECORDS SUMMARY | 2024-09-23 17:27 | XMS_ITS | Data Portability ---
Author Organization [place] - [facility], Allergy Address [address] [place] [address] Care Team Providers Care Inside Sales Account Representative Name Role Phone JAZMIN SANCHES Primary Care Provider [phone] Assessment Encounter Date Assessment Date Assessment LastModified [...] and she will follow up with her distribution sales manager for hearing aid adjustment. She will follow up in 6 months for routine debridement, or sooner with any concerns. Not available 04/06/2024 15:17:29 Plan of Treatment [...] Time Acute myringiti s of left ear [id number] 47496 Active 2017 Acute myringiti s, left ear; Note: Date Diagnosed : 8 3:58 PM (H73.002) Not Available [facility] 4 02:32:53 Conductiv e hearing loss 67651501 Active 2015 Conductiv e hearing loss, unilatera l, left ear, with unrestric rusty hearing on the contralat eral side; Note: Date Diagnosed : 01/12/2016 3:33 PM (H90.12) Not Available [facility] 4 02:32:44 Otorrhea of left ear 47581215485 62086 Active 2017 Otorrhea, left ear; Note: Date Diagnosed : 8 3:55 PM (H92.12) Not Available [facility] 4 02:32:48 History of radiation exposure 642232035 Active 2020 Personal history of exposure to therapeut ic radiation ; Note: Date Diagnosed : 08/25/2020 12:52 PM (Z92.3) Not Available [facility] 4 02:32:49 Impacted cerumen of bilateral ears 84835522700 56620 Active 2020 Impacted cerumen, bilateral ; Note: Date Diagnosed : 02/16/2021 3:38 PM (H61.23) Impacte d cerumen, bilateral ; Note: Date Diagnosed : 08/01/2020 2:25 PM (H61.23) ; Start Date : 1 Not Available [facility] 4 02:32:58 Pain of left temporoma ndibular joint 58931605170 769015 Active 2020 Arthralgi a of left temporoma ndibular joint; Note: Date Diagnosed : 02/16/2021 3:38 PM (M26.622) Not Available [facility] 4 02:32:35 Central perforati on of left tympanic membrane 86224492211 72426 Active 2017 Central perforati on of tympanic membrane, left ear; Note: Date Diagnosed : 8 3:55 PM (H72.2X2) Not Available [facility] 4 02:32:50 Problem Notes None recorded. Procedures Surgical History Date Name Laterality Status Provider Name and Address Organization Details Recorded Time 4 Comp Audio with Tymps (93928 & 34083) completed VAN MIRANDA [address], [address], [facility] 04/06/2024 14:53:13 Cerumen removal without microscope bilat completed CLINT GASTELUM PA-C [address], [address], [facility] 04/06/2024 14:03:31 Imaging Results Imaging Date [...] Name and Address Organization Details Recorded Time 35504 hydrocort isone / neomycin / polymyxin B medicatio n other Not available Not available 12/10/2023 46093 7 RxNorm React ion: unkno wn, unspe cifie d;; Not Available [facility] 4 01:03:11 07244 cefoxitin medicatio n other Not available Not available 12/10/2023 2189 RxNorm React ion: unkno wn, unspe cifie d;; Not Available [facility] 4 01:03:15 Medications Name Sig Start Date Stop Date Status Note LastModified by Organization Details LastModified Time vitamin c 250 mg chew CHEW AND SWALLOW 1 TABLET TWO TIMES A DAY active Not Available Not Available No t Available vitamin d3 1.25 mg (41657 u TAKE 1 CAPSULE BY MOUTH EVERY [...] 24 hr 02/16 completed Medicati on ID: [id number] D uration Value: 30 Brand Name: diltiaze m HCl Send Method: E-Prescr ibed Sub s Allowed: subs OK Speci al Instruct ion: TAKE 1 CAPSULE BY ORAL ROUTE EVERY DAY Medi cationGe nericNam e: diltiaze m HCl Not Available Not Available Not Available Nexium 40 mg capsule,d elayed release 08/01 completed Medicati on ID: [id number] D uration Value: 90 Brand Name: Nexium S end Method: E-Prescr ibed Sub s Allowed: subs OK Speci al Instruct ion: 1 CAPSULE BY MOUTH DAILY Me dication GenericN divine: Nexium Not Available Not Available Not Available diltiazem ER 360 mg capsule,2 4 hr,extend ed release 2020 active Medicati on ID: 142497 B rand Name: diltiaze m HCl Send [...] mg tablet 2021 active Medicati on ID: 801125 B rand Name: metoprol ol tartrate Send [...] xtend release 2021 active Medicati on ID: 570485 B rand Name: dextroam phetamin e-amphet amine Se nd Method: E-Prescr ibed Sub s Allowed: subs OK Medic ationGen ericName : dextroam phetamin e-amphet amine Not Available Not Available Not Available bisacodyl 5 mg tablet,de layed release TAKE 1 TABLET BY MOUTH EVERY DAY active Not Available Not Available No t Available acebutolo l 200 mg capsule 08/01 completed Medicati on ID: [id number] D uration Value: 15 Brand Name: acebutol ol Send Method: E-Prescr ibed Sub s Allowed: subs OK Speci al Instruct ion: TAKE 3 CAPSULES EVERY MORNING AND TAKE 3 CAPSULES EVERY EVENING Medicati onGeneri cName: acebutol ol Not Available Not Available Not Available fluoxetin e 20 mg capsule 08/01 completed Medicati on ID: 406528 D uration Value: 30 Brand Name: fluoxeti ne Send Method: E-Prescr ibed Sub s Allowed: subs OK Speci al Instruct ion: TAKE ONE CAPSULE BY MOUTH EVERY DAY [facility] cationGe nericNam e: fluoxeti ne Not Available Not Available Not Available dextroamp hetamine- amphetami ne 5 mg tablet 2021 active Medicati on ID: 435325 B rand Name: dextroam phetamin e-amphet amine [...] drops,sherry p 07/17 completed Medicati on ID: [id number] D uration Value: 20 Brand Name: neomycin -polymyx in-HC Se nd Method: E-Prescr ibed Sub s Allowed: subs OK Speci al Instruct ion: INSTILL 5 DROPS INTO LEFT EAR TWO TIMES A DAY FOR 7 DAYS Med icationG enericNa me: neomycin -polymyx in-HC Not Available Not Available Not Available Ciprodex 0.3 %-0.1 % ear drops,sherry pension 4 drop 2017 active Medicati on ID: [id number] D uration Value: 10 Prescri bed By [...] Updated DateTime 04/06/2024 154.94 cm 27.4 kg/m2 41955.89 g Jacqueline Paredes [place] - [facility] 04/06/2024 14:10:42 Social History None recorded. Functional Status None recorded. Mental Status None recorded. Family History Nothing Reported. Medical History No medical history recorded. Gynecological HistoryNo gynecological history recorded. Obstetrics History GPAL:G 0 P 0 0 0 0 Past Encounters Encounter ID Performer Location Encounter Start Date Encounter Closed Date Diagnosis/Indication Diagnosis SNOMED-CT Code Diagnosis ICD10 Code Diagnosis Note [id number] ROBERT FELDMAN MD [facility] [address] [facility] [address] 04/06/2024 14:00:38 04/06/2024 15:09:40 Central perforation of left tympanic membrane [id number] 469079 H72.02 Impacted c erumen of bilateral ears 2137817872 220310 H61.23 Conductive hearing loss 37418074 H90.12 Audiologic al evaluation results: Right ear: [...] Dahl Member ID Guarantor Name 04/06/2024 1 [facility] (MEDICAID HMO) [id number] Ekta Arzate [id number] Ekta Arzate Notes Date Note Type Note [...] of medulloblastoma in 2012. ROBERT FELDMAN MD [address] [place] [address], [address], [facility] - [facility] 04/07/2024 08:53:19 OBGyn Episode No OBEpisode recorded.
--- OUTSIDE RECORDS SUMMARY | 2024-09-23 17:27 | XMS_ITS | Encounter Summary ---
Author Organization [facility] Address [address] [place] [address] Care Team Providers Care Respiratory Scientist Name Role Phone Sisi Hernandez MD Primary Care Provider [phone] Encounter Details Date Type Department Care Team (Late st Contact Info) Description 09/20/2024 7:20 PM EST Ancillary Procedure [facility] Cardiology [facility] [address] [facility] [address] [place] [address] Arrived Social History Tobacco Use Types Packs/Day Years Used Date Smoking Tobacco: Never Smokeless Tobacco: Never Alcohol Use Standard Drinks/Week Comments Yes 1 (1 standard drink = 0.6 oz pur e alcohol) Comments Unknown Sex and Gender Information Value Date Recorded Sex Assigned at Not on file Legal Sex Female 12:00 AM EDT Gender Identity Not on file Sexual Orientation Not on file documented as of this encounter Plan of Treatment Upcoming Encounters Date Type Department Care Team (Late st Contact Info) Description 01/26/2025 4:30 PM EDT Ancillary Procedure [facility] Cardiology [facility] [address] [address] [facility] [address] [place] [address] documented as of this encounter Procedures Procedure Name Priority Date/Time Associated Diagnosis Comments CARDIAC DEVICE CHECK- REMOTE- MURJ Routine 09/20/2024 7:19 PM EST documented in this encounter Results * Cardiac device check - Remote- MURJ (09/20/2024 7:19 PM EST) Date Time Interrogation Session [id number] CV DEVICE CHECK Type Interrogation Session Remote CV DEVICE CHECK Implantable Pulse Generator Biopharmaceutical Rep MDT CV DEVICE CHECK Implantable Pulse Generator Type IPG CV DEVICE CHECK Implantable Pulse Generator Model Advisa DR MRI [id number] CV DEVICE CHECK Implantable Pulse Generator Serial Number [id number] CV DEVICE CHECK Implantable Pulse Generator Implant Date 20170530 CV DEVICE CHECK Battery Remaining Longevity 46.0 CV DEVICE CHECK Battery Voltage 2.970 CV D EVICE CHECK Battery MOCK UP MAKER Trigger 2.830 CV DEVICE CHECK Battery Status Middle of Service CV DEVICE CHECK Silver Statistic RA Percent Paced 19.03 CV DEVICE CHECK Silver Statistic RV Percent Paced 0.34 CV DEVICE CHECK Atrial Tachy Statistic AT/AF [place] Percent 0.00 CV DEVICE CHECK Lead Channel [...] IMPLANTABLE CARDIAC DEV ICE PROCEDURES Final Result documented in this encounter Visit Diagnoses Not on filedocumented in this encounter Care Teams Respiratory Scientist Relationship Specialty Start Date End Date Sisi Hernandez MD [address] [place] [address] PCP - General 01/20/13 documented as of this encounter
--- OUTSIDE RECORDS SUMMARY | 2024-09-23 17:27 | XMS_ITS | Referral Summary ---
Author Organization [facility] Address [address] [place] [address] Care Team Providers Care Oracle Consultant Name Role Phone Sisi Hernandez MD Primary Care Provider [phone] Encounters Date Type Department Care Team Description 07/10/2024 Telephone [facility] [address] [place] [phone] Quality Improvement Coordinator (Rn): Aurora Medina Telephone Intake, Staff PAC Form/Letter/Records Request 06/24/2024 Telephone [facility] [address] [place] [address] Quality Improvement Coordinator (Rn): Diann Tony MD prior auth request from Last 3 Months Allergies Active Allergy Reactions Criticality Noted Date Comments Cefoxitin Cough,Anaphylaxis High 05/09/2016 Medications tenapanor (IBSRELA) 50 mg tablet tabletIndications :Irritable bowel syndrome with constipation Take 1 tablet (50 mg total) by mouth 2 times a day. 60 tablet 2 09/21/19 25 Social History Tobacco Use Types Packs/Day Years [...] Plan of Treatment Not on file Insurance [facility] MEDICAID Care Teams Oracle Consultant Relationship Specialty Start Date End Date Sisi Hernandez MD [facility] [place] [address] PCP - General Internal Medicine 04/13/24
[2024-09-27 16:13] LABS: Nicotinamide <20 ng/mL (see note); Vit B3 - Nicotinic Acid <20 ng/mL (see note)
[2024-09-30 06:29] LABS: Fructosamine 258 umol/L (205-285)
[2024-10-08 09:49] LABS: EJ Autoantibodies <11; JO-1 Antibody <11; MI 2 Autoantibodies <11; OJ Autoantibodies <11; PL 12 Autoantibodies <11; PL 7 Autoantibodies <11
== END 2024-09-23 14:09 | disposition home or self-care (01) ==
LOC: HO.LAB 14:08
PROVIDERS: PCP Internal Medicine; Visit Provider Internal Medicine Gastroenterology
DX: M79.10 Myalgia, unspecified site (principal); R19.5 Other fecal abnormalities; R10.13 Epigastric pain
CPT/HCPCS: 36415; 82550; 82947; 82985; 83036; 84591

== ENCOUNTER 2024-10-01 10:11 | Outpatient (REF) | payer OTHER, SELFPAY ==
--- NOTE | ~2024-10-01 | MR_ITS ---
EXAMINATION: MRI Abdomen without and with contrast HISTORY: LOW FECAL ELASTASE LEVEL, ABD PAIN R/O PANCREATIC LESION COMPARISON: None TECHNIQUE: Axial in and out of phase T1-weighted gradient echo, axial diffusion weighted, and axial and coronal HASTE T2 with fat saturation images were obtained through the abdomen. Subsequently, fat suppressed axial and coronal T1-weighted images were obtained after the intravenous administration of 7 mL Gadavist. FINDINGS: The pancreas is normal in size and demonstrates normal homogeneous signal intensity. No enhancing mass is seen. The pancreatic duct is normal in caliber. No peripancreatic inflammatory changes are seen. There is no significant signal loss within the liver on opposed phase imaging to suggest steatosis. There is an 8 mm T2 hyperintense lesion in the right lobe which demonstrates gradual enhancement over time. While lesion is too small to accurately characterize, it likely represents a hemangioma. No additional liver mass is seen. The hepatic and portal veins are patent. There is no intra or extrahepatic biliary ductal dilatation. The gallbladder, spleen, adrenals, and kidneys are unremarkable. No retroperitoneal lymphadenopathy or ascites is identified in the upper abdomen. The visualized bones demonstrate normal signal. MR/MR abdomen wo/w con IMPRESSION: 1. Unremarkable MRI of the pancreas without and with contrast. 2. Probable 8 mm hepatic hemangioma in the right lobe. Electronically signed by: Jung Lui MD 10/02/2024 12:36 PM [facility]
--- OUTSIDE RECORDS SUMMARY | 2024-10-01 11:56 | XMS_ITS | Data Portability ---
Author Organization [place] - [facility], Allergy Address [address] [place] [address] Care Team Providers Care Shear Scrapman Name Role Phone JAZMIN SANCHES Primary Care [...] and she will follow up with her driller machine for hearing aid adjustment. She will follow up in 6 months for routine debridement, or sooner with any concerns. [email or web address] Not available 04/06/2024 15:17:29 Plan of Treatment [...] Time Acute myringiti s of left ear [id number] 94197 Active 2017 Acute myringiti s, left ear; Note: Date Diagnosed : 8 3:58 PM (H73.002) Not Available [facility] 4 02:32:53 Conductiv e hearing loss 35507105 Active 2015 Conductiv e hearing loss, unilatera l, left ear, with unrestric rusty hearing on the contralat eral side; Note: Date Diagnosed : 01/12/2016 3:33 PM (H90.12) Not Available [facility] 4 02:32:44 Otorrhea of left ear 06395449509 34951 Active 2017 Otorrhea, left ear; Note: Date Diagnosed : 8 3:55 PM (H92.12) Not Available [facility] 4 02:32:48 History of radiation exposure 469065669 Active 2020 Personal history of exposure to therapeut ic radiation ; Note: Date Diagnosed : 08/25/2020 12:52 PM (Z92.3) Not Available [facility] 4 02:32:49 Impacted cerumen of bilateral ears 58077161349 77038 Active 2020 Impacted cerumen, bilateral ; Note: Date Diagnosed : 02/16/2021 3:38 PM (H61.23) Impacte d cerumen, bilateral ; Note: Date Diagnosed : 08/01/2020 2:25 PM (H61.23) ; Start Date : 1 Not Available [facility] 4 02:32:58 Pain of left temporoma ndibular joint 79497269652 676909 Active 2020 Arthralgi a of left temporoma ndibular joint; Note: Date Diagnosed : 02/16/2021 3:38 PM (M26.622) Not Available [facility] 4 02:32:35 Central perforati on of left tympanic membrane 79350742830 71984 Active 2017 Central perforati on of tympanic membrane, left ear; Note: Date Diagnosed : 8 3:55 PM (H72.2X2) Not Available [facility] 4 02:32:50 Problem Notes None recorded. Procedures Surgical History Date Name Laterality Status Provider Name and Address Organization Details Recorded Time 4 Comp Audio with Tymps (17117 & 32721) completed VAN MIRANDA [address], [address], [facility] 04/06/2024 14:53:13 Cerumen removal without microscope bilat completed CLINT GASTELUM PA-C [address], [address], [facility] 04/06/2024 14:03:31 Imaging Results Imaging Date Name [...] Name and Address Organization Details Recorded Time 60732 hydrocort isone / neomycin / polymyxin B medicatio n other Not available Not available 12/10/2023 98656 7 RxNorm React ion: unkno wn, unspe cifie d;; Not Available [facility] 4 01:03:11 02754 cefoxitin medicatio n other Not available Not available 12/10/2023 2189 RxNorm React ion: unkno wn, unspe cifie d;; Not Available [facility] 4 01:03:15 Medications Name Sig Start Date Stop Date Status Note LastModified by Organization Details LastModified Time vitamin c 250 mg chew CHEW AND SWALLOW 1 TABLET TWO TIMES A DAY active Not Available Not Available No t Available vitamin d3 1.25 mg (30685 u TAKE 1 CAPSULE BY MOUTH EVERY [...] 24 hr 02/16 completed Medicati on ID: [id number] D uration Value: 30 Brand Name: diltiaze m HCl Send Method: E-Prescr ibed Sub s Allowed: subs OK Speci al Instruct ion: TAKE 1 CAPSULE BY ORAL ROUTE EVERY DAY Medi cationGe nericNam e: diltiaze m HCl Not Available Not Available Not Available Nexium 40 mg capsule,d elayed release 08/01 completed Medicati on ID: 455353 D uration Value: 90 Brand Name: Nexium S end Method: E-Prescr ibed Sub s Allowed: subs OK Speci al Instruct ion: 1 CAPSULE BY MOUTH DAILY Me dication GenericN divine: Nexium Not Available Not Available Not Available diltiazem ER 360 mg capsule,2 4 hr,extend ed release 2020 active Medicati on ID: 500757 B rand Name: diltiaze m HCl Send [...] mg tablet 2021 active Medicati on ID: 708425 B rand Name: metoprol ol tartrate Send [...] xtend release 2021 active Medicati on ID: 566601 B rand Name: dextroam phetamin e-amphet amine Se nd Method: E-Prescr ibed Sub s Allowed: subs OK Medic ationGen ericName : dextroam phetamin e-amphet amine Not Available Not Available Not Available bisacodyl 5 mg tablet,de layed release TAKE 1 TABLET BY MOUTH EVERY DAY active Not Available Not Available No t Available acebutolo l 200 mg capsule 08/01 completed Medicati on ID: 884425 D uration Value: 15 Brand Name: acebutol ol Send Method: E-Prescr ibed Sub s Allowed: subs OK Speci al Instruct ion: TAKE 3 CAPSULES EVERY MORNING AND TAKE 3 CAPSULES EVERY EVENING Medicati onGeneri cName: acebutol ol Not Available Not Available Not Available fluoxetin e 20 mg capsule 08/01 completed Medicati on ID: 553300 D uration Value: 30 Brand Name: fluoxeti ne Send Method: E-Prescr ibed Sub s Allowed: subs OK Speci al Instruct ion: TAKE ONE CAPSULE BY MOUTH EVERY DAY [facility] cationGe nericNam e: fluoxeti ne Not Available Not Available Not Available dextroamp hetamine- amphetami ne 5 mg tablet 2021 active Medicati on ID: 939779 B rand Name: dextroam phetamin e-amphet amine [...] drops,sherry p 07/17 completed Medicati on ID: 422579 D uration Value: 20 Brand Name: neomycin -polymyx in-HC Se nd Method: E-Prescr ibed Sub s Allowed: subs OK Speci al Instruct ion: INSTILL 5 DROPS INTO LEFT EAR TWO TIMES A DAY FOR 7 DAYS Med icationG enericNa me: neomycin -polymyx in-HC Not Available Not Available Not Available Ciprodex 0.3 %-0.1 % ear drops,sherry pension 4 drop 2017 active Medicati on ID: 650098 D uration Value: 10 Prescri bed By [...] Updated DateTime 04/06/2024 154.94 cm 27.4 kg/m2 94492.89 g Jacqueline Paredes [place] - [facility] 04/06/2024 14:10:42 Social History None recorded. Functional Status None recorded. Mental Status None recorded. Family History Nothing Reported. Medical History No medical history recorded. Gynecological HistoryNo gynecological history recorded. Obstetrics History GPAL:G 0 P 0 0 0 0 Past Encounters Encounter ID Performer Location Encounter Start Date Encounter Closed Date Diagnosis/Indication Diagnosis SNOMED-CT Code Diagnosis ICD10 Code Diagnosis Note [id number] ROBERT FELDMAN MD [facility] [address] [place] [address] 04/06/2024 14:00:38 04/06/2024 15:09:40 Central perforation of left tympanic membrane [id number] 749478 H72.02 Impacted c erumen of bilateral ears 3521375854 217701 H61.23 Conductive hearing loss 92390040 H90.12 Audiologic al evaluation results: Right ear: [...] Dahl Member ID Guarantor Name 04/06/2024 1 [facility] (MEDICAID HMO) [id number] Ekta Arzate [id number] Ekta Arzate Notes Date Note Type Note [...] of medulloblastoma in 2012. ROBERT FELDMAN MD [address] [place] [address], [address], [facility] - [facility] 04/07/2024 08:53:19 OBGyn Episode No OBEpisode recorded.
--- OUTSIDE RECORDS SUMMARY | 2024-10-01 11:56 | XMS_ITS | Referral Summary ---
Author Organization [facility] Address [address] [phone] Care Team Providers Care Athletic Director Name Role Phone Sisi Hernandez MD Primary Care Provider Encounters Date Type Department Care Team Description 07/10/2024 Telephone [facility] Gastro[facility]ology Clinic [address] [place] [address] Temperature Control Inspector: Aurora Medina Telephone Intake, Staff PAC Form/Letter/Records Request from Last 3 Months Allergies Active Allergy Reactions Criticality Noted Date Comments Cefoxitin Cough,Anaphylaxis High 05/09/2016 Medications tenapanor (IBSRELA) 50 mg tablet tabletIndications :Irritable bowel syndrome with constipation Take 1 tablet (50 mg total) by mouth 2 times a day. 60 tablet 2 4 09/21/19 Social History Tobacco Use Types Packs/Day Years [...] Plan of Treatment Not on file Insurance [facility] MEDICAID Care Teams Athletic Director Relationship Specialty Start Date End Date Sisi Hernandez MD [facility] [place] [address] PCP - General Internal Medicine 04/13/24
--- OUTSIDE RECORDS SUMMARY | 2024-10-01 11:56 | XMS_ITS | Clinical Summary ---
Author Organization Patient Business Ser [facility] Address [address] [place] [address] Care Team Providers Care Brand Inspector Name Role Phone Sisi Hernandez MD Primary Care Provider [phone] Allergies Active Allergy Reactions Criticality Noted Date [...] Description 09/20/2024 7:20 PM EST Ancillary Procedure [facility] Cardiology [facility] [address] [facility] [address] [place] [address] from Last 3 Months Family History Medical [...] Description 01/26/2025 4:30 PM EDT Ancillary Procedure [facility] Cardiology [facility] [address] [facility] [address] [place] [address] Health Maintenance Due Date Last Done Comments [...] this topic Medical Devices Implanted Type Area Assistant Store Leader Device Identifier Shelf Expiration Date Model / Serial / Lot Medt-Card Advisa Dr De Guzman [id number] [id number] Implanted:08/2016 (Quantity not on file) Cardiac Pacemaker [employer] - CARDIAC RHYTH-CRDM ADVISA DR DE GUZMAN [id number] / [id number] / Procedures Procedure Name Priority Date/Time Associated Diagnosis Comments CARDIAC DEVICE CHECK- REMOTE- MURJ Routine 09/20/2024 7:19 PM EST from Last 3 Months Results * Cardiac device check - Remote- MURJ (09/20/2024 7:19 PM EST) Date Time Interrogation Session [id number] CV DEVICE CHECK Type Interrogation Session Remote CV DEVICE CHECK Implantable Pulse Generator Assistant Store Leader MDT CV DEVICE CHECK Implantable Pulse Generator Type IPG CV DEVICE CHECK Implantable Pulse Generator Model Advisa DR DE GUZMAN [id number] CV DEVICE CHECK Implantable Pulse Generator Serial Number [id number] CV DEVICE CHECK Implantable Pulse Generator Implant Date 20170530 CV DEVICE CHECK Battery Remaining Longevity 46.0 CV DEVICE CHECK Battery Voltage 2.970 CV D EVICE CHECK Battery HEAVY THREADER Trigger 2.830 CV DEVICE CHECK Battery Status Middle of Service CV DEVICE CHECK Silver Statistic RA Percent Paced 19.03 CV DEVICE CHECK Silver Statistic RV Percent Paced 0.34 CV DEVICE CHECK Atrial Tachy Statistic AT/AF [place] Percent 0.00 CV DEVICE CHECK Lead Channel [...] [employer] [place] MED[place] Care Teams Brand Inspector Relationship Specialty Start Date End Date Sisi Hernandez MD [address] [place] [address] PCP - General 01/20/13
--- OUTSIDE RECORDS SUMMARY | 2024-10-01 11:56 | XMS_ITS | Encounter Summary ---
Author Organization [facility] Address [address] [place] [address] Care Team Providers Care Assurance Engineer Name Role Phone Sisi Hernandez MD Primary Care Provider [phone]- [phone] Encounter Details Date Type Department Care Team (Late st Contact Info) Description 09/20/2024 7:20 PM EST Ancillary Procedure [facility] Cardiology [facility] [address] [facility] [address] [place] [id number] Social History Tobacco Use Types Packs/Day Years [...] 01/26/2025 4:30 PM EDT Ancillary Procedure [facility] Cardiology [facility] [address] [facility] [address] [place] [address] documented as of this encounter Procedures Procedure Name Priority Date/Time Associated Diagnosis Comments CARDIAC DEVICE CHECK- REMOTE- MURJ Routine 09/20/2024 7:19 PM EST documented in this encounter Results * Cardiac device check - Remote- MURJ (09/20/2024 7:19 PM EST) Date Time Interrogation Session [id number] CV DEVICE CHECK Type Interrogation Session Remote CV DEVICE CHECK Implantable Pulse Generator Supervisor Engine Assembly MDT CV DEVICE CHECK Implantable Pulse Generator Type IPG CV DEVICE CHECK Implantable Pulse Generator Model Advisa DR MRI [id number] CV DEVICE CHECK Implantable Pulse Generator Serial Number [id number] CV DEVICE CHECK Implantable Pulse Generator Implant Date 20170530 CV DEVICE CHECK Battery Remaining Longevity 46.0 CV DEVICE CHECK Battery Voltage 2.970 CV D EVICE CHECK Battery COMMERCIAL OCEAN CLAMMER Trigger 2.830 CV DEVICE CHECK Battery Status Middle of Service CV DEVICE CHECK Silver Statistic RA Percent Paced 19.03 CV DEVICE CHECK Silver Statistic RV Percent Paced 0.34 CV DEVICE CHECK Atrial Tachy Statistic AT/AF Peterson Percent 0.00 CV DEVICE CHECK Lead Channel [...] on filedocumented in this encounter Care Teams Assurance Engineer Relationship Specialty Start Date End Date Sisi Hernandez MD [address] [place] [address] PCP - General 01/20/13 documented as of this encounter
--- OUTSIDE RECORDS SUMMARY | 2024-10-01 11:56 | XMS_ITS | Clinical Summary ---
Author Organization [facility] Address [address] [place] [address] Care Team Providers Care Yarn Dyer Name Role Phone Sisi Hernandez MD Primary Care Provider [phone] Allergies Active Allergy Reactions Criticality Noted Date Comments Cefoxitin Cough,Anaphylaxis High 05/09/2016 Medications tenapanor (IBSRELA) 50 mg tablet tabletIndications :Irritable bowel syndrome with constipation Take 1 tablet (50 mg total) by mouth 2 times a day. 60 tablet 2 4 09/21/19 25 Encounters Date Type Department Care Team Description 07/10/2024 Telephone [facility] [address] [place] [address] Hand Stonecutter: Aurora Medina Telephone Intake, Staff PAC Form/Letter/Records Request from Last 3 Months Social History Tobacco [...] 05/23/2024, , 06/04/2021, Additional history exists Insurance Care Teams Yarn Dyer Relationship Specialty Start Date End Date Sisi Hernandez MD [address] [place], [place] [id number] PCP - General Internal Medicine 04/13/24
[2024-10-01] MEDS: gadobutroL 7.5 ML VIAL IVPUSH (12:07)
== END 2024-10-01 10:12 | disposition home or self-care (01) ==
LOC: HO.MRI 10:11
PROVIDERS: PCP Internal Medicine; Visit Provider Internal Medicine Gastroenterology
DX: R19.5 Other fecal abnormalities (principal)
CPT/HCPCS: 74183; A9585

== ENCOUNTER → 2024-10-01 10:23 | Outpatient (BNV) | payer OTHER, SELFPAY | PROVIDERS: PCP Internal Medicine; Visit Provider Radiology Diagnostic Radiology | DX: R10.9 Unspecified abdominal pain (principal) | CPT/HCPCS: 74183 ==

== ENCOUNTER 2024-11-24 11:11 | Outpatient (REF) | payer OTHER, SELFPAY ==
--- OUTSIDE RECORDS SUMMARY | 2024-11-24 14:30 | XMS_ITS | Clinical Summary ---
Author Organization [facility] Address [address] [place] [address] Care Team Providers Care Patternmaker Wood Name Role Phone Sisi Hernandez MD Primary [...] 06/04/2021, Additional history exists Insurance Care Teams Patternmaker Wood Relationship Specialty Start Date End Date Sisi Hernandez MD [facility] [place] [address] PCP - General Internal Medicine 04/13/24
--- OUTSIDE RECORDS SUMMARY | 2024-11-24 14:30 | XMS_ITS | Clinical Summary ---
Author Organization [facility] Address [address] [place] [address] Care Team Providers Care Board Mill Supervisor Name Role Phone Sisi Hernandez MD Primary Care Provider +1- [phone] Allergies Active Allergy Reactions Criticality Noted Date [...] Description 09/20/2024 7:20 PM EST Ancillary Procedure [facility] - [address] [place] [address] from Last 3 Months Family History Medical [...] Description 12/15/2024 1:10 PM EDT Office Visit [facility] Cardiology [facility] [address] [place] [address] Kelley Johnson PA [address] [place] [address] 01/26/2025 3:00 PM EDT Ancillary Procedure [facility] Card[facility] [address] [place] [address] Health Maintenance Due Date Last Done Comments [...] this topic Medical Devices Implanted Type Area Railcar Brake Operator Device Identifier Shelf Expiration Date Model / Serial / Lot Medt-Card Advisa Dr De Guzman [id number] Implanted:08/2016 (Quantity not on file) Cardiac Pacemaker [employer] - CARDIAC RHYTH-CRDM ADVISA DR DE GUZMAN [id number] / [id number] / Procedures Procedure Name Priority Date/Time Associated Diagnosis Comments CARDIAC DEVICE CHECK- REMOTE- MURJ Routine 09/20/2024 7:19 PM EST from Last 3 Months Results * Cardiac device check - Remote- MURJ (09/20/2024 7:19 PM EST) Date Time Interrogation Session [id number] CV DEVICE CHECK Type Interrogation Session Remote CV DEVICE CHECK Implantable Pulse Generator Railcar Brake Operator MDT CV DEVICE CHECK Implantable Pulse Generator Type IPG CV DEVICE CHECK Implantable Pulse Generator Model Advisa DR MRI [id number] CV DEVICE CHECK Implantable Pulse Generator Serial Number [id number] CV DEVICE CHECK Implantable Pulse Generator Implant Date 20170530 CV DEVICE CHECK Battery Remaining Longevity 46.0 CV DEVICE CHECK Battery Voltage 2.970 CV D EVICE CHECK Battery RACECOURSE BARRIER ATTENDANT Trigger 2.830 CV DEVICE CHECK Battery Status Middle of Service CV DEVICE CHECK Silver Statistic RA Percent Paced 19.03 CV DEVICE CHECK Silver Statistic RV Percent Paced 0.34 CV DEVICE CHECK Atrial Tachy Statistic AT/AF [employer] Percent 0.00 CV DEVICE CHECK Lead Channel [...] [place]ANTAGE Care Teams Board Mill Supervisor Relationship Specialty Start Date End Date Sisi Hernandez MD [address] [place] [address] PCP - General 01/20/13
--- OUTSIDE RECORDS SUMMARY | 2024-11-24 14:30 | XMS_ITS | Referral Summary ---
Author Organization [facility] Address [address] [place] [address] Care Team Providers Care Billing Administrator Name Role Phone Sisi Hernandez MD [...] Plan of Treatment Not on file Insurance [facility] MEDICAID Care Teams Billing Administrator Relationship Specialty Start Date End Date Sisi Hernandez MD [address] [place] [address] PCP - General Internal Medicine 04/13/24
[2024-11-24 18:04] LABS: Alanine Aminotransferase 15 U/L (0-31); Aspartate Amino Transferase 19 U/L (5-31); C Reactive Protein < 0.04 mg/dL (< or = 0.50)
[2024-11-24 18:05] LABS: Rheumatoid Factor < 13.0 IU/mL (<15.0)
[2024-11-24 18:31] LABS: Basophils Percent Auto 1.4 % (0-2); Eosinophils Absolute Auto 0.1 X10*3/uL (0.0-0.4); Hematocrit 39.7 % (37.0-47.0); Imm Gran Abs Auto 0.05 X10*3/uL (0.00-0.03); Imm Gran Pct Auto 1.7 % (0.0-0.4); Lymphocytes Absolute Auto 1.1 X10*3/uL (1.2-4.9); Lymphocytes Percent Auto 36.1 % (20-40); MANUAL DIFF FLAG SCAN; Mean Corpuscular HGB Conc 32.7 g/dl (31.0-35.0); Mean Corpuscular Hemoglobin 28.8 pg (27.0-33.0); Mean Corpuscular Volume 87.8 fL (80.0-98.0); Mean Platelet Volume 13.1 fL (9.4-12.3); Monocytes Absolute Auto 0.2 X10*3/uL (0.1-1.2); Monocytes Percent Auto 6.5 % (2-11); NRBC Pct Auto 0.7 /100WBC (0.0-0.2); Neutrophils Absolute Auto 1.5 x10*3/uL (2.0-8.3); Neutrophils Percent Auto 52.3 % (45-73); Platelet Count 153 X10*3/uL (160-400); Red Blood Count 4.52 X10*6/uL (4.20-5.50); Red Cell Distribution Width 13.9 % (11.0-16.0); SCAN SMEAR FLAG 1; White Blood Count 2.9 X10*3/uL (4.8-10.8)
[2024-11-24 18:33] LABS: PLT ABN DIST 1
[2024-11-24 18:54] LABS: SLIDE REVIEW VERIFIED
[2024-11-25 08:21] LABS: HBS Num1 1.17 mIU/mL (0-7.99); HBc Num1 0.09 S/CO (0.00-0.79); Hepatitis B Core Antibody Nonreactive (Nonreactive); Hepatitis B Surface Antigen Negative (Negative); ~HepC Num1 0.06 S/CO (0.00-0.79); ~Hepatitis B Surface Antibody NONREACTIVE (Nonreactive); ~Hepatitis C Antibody Nonreactive (Nonreactive)
[2024-11-26 17:04] LABS: Cardiolipin IgG Ab <2.0 GPL-U/mL; Cardiolipin IgM Ab 5.2 MPL-U/mL
[2024-11-26 23:29] LABS: SM/Ribonucleoprotein Ab <1.0 NEG AI (<1.0 NEG); Smith Protein <1.0 NEG AI (<1.0 NEG)
[2024-11-27 01:54] LABS: TS Negative Control Passed; TS Panel A 0; TS Panel B 0; TS Positive Control Passed; TSpotTB Negative (Negative)
[2024-11-30 00:19] LABS: Beta-2 Glycoprotein IgA <2.0 U/mL (<20.0); Beta-2 Glycoprotein IgG <2.0 U/mL (<20.0); Beta-2 Glycoprotein IgM 3.5 U/mL (<20.0)
[2024-11-30 19:29] LABS: Cyclic Citrullinated Peptide <16 UNITS
== END 2024-11-24 11:12 | disposition home or self-care (01) ==
LOC: HO.HKASLDS 11:11
PROVIDERS: PCP Internal Medicine; Visit Provider Internal Medicine Rheumatology
DX: M79.10 Myalgia, unspecified site (principal); M25.50 Pain in unspecified joint; I82.401 Acute embolism and thrombosis of unspecified deep veins of right lower extremity; R04.2 Hemoptysis; Z79.899 Other long term (current) drug therapy
CPT/HCPCS: 36415; 84450; 84460; 85025; 86140; 86146; 86147; 86200; 86235; 86431; 86481; 86704; 86706; 86803; 87340; 99202

== ENCOUNTER 2024-11-24 11:11 | Outpatient (AMB) | payer OTHER, SELFPAY ==
--- NOTE | 2024-11-24 11:14 | A.OFFVIS_ITS ---
Vital Signs 11/24/24 11:18 Height 5 ft 1 in Weight 145 lb 8.081 oz BMI 27.5 BP 120/76 Blood Pressure Location Rt brachial Position Sitting Pulse 96 Pulse Source Pulse Oximeter Pulse Oximetry (%) 99 Oxygen Delivery Method Room Air Intake Visit Reasons: muscle pain Intake Note: Pt presents today for her first appt of myalgia Accompanied by: Self / Same As Patient Allergies cefoxitin [CEFOXITIN] Allergy (Severe, Verified 11/24/24 11:20) Anaphylaxis sertraline Allergy (Severe, Verified 11/24/24 11:20) itching vancomycin [VANCOMYCIN] Allergy (Severe, Verified 11/24/24 11:20) Anaphylaxis HPI HPI muscle pain: Details: Pain in muscles started last summer. Hard to dress herself. Putting coat on door caused increase pain. She has worsening fatigue on background of narcolepsy. She needs 12 hours of sleep. She feels old . Since cancer treatment she had a period of feeling well then she had multiple conditions dx: heart condition. Sometimes she has difficulty swallowing solids and liquids. She has raised bumps that come and go on arms and trunk. Last 24h - 1 month. Non pruritis. Denies fevers, night sweats, photosensitivity, +blood per rectum being evaluated by GI possibly due to straining. She reports she has had multiple colonoscopies with biopsies that were negative. +paresthesia in hands when she wakes up. She has swelling in her hands. +dysuria and frequency +chills at night +intermittent oral ulcers previously evaluated by Dermatology +She has hemoptysis +deep breathing causes back pain. Medrol dose pack prescribed 10/2024. No change in symptoms. She has been evaluated by glass etcher helper who suggested a trial of hydroxychloroquine. She has not taken it. There are many medications on her medication list that she does not take regularly. She is aware that when she does not take some of the medications that are prescribed to her that she feels unwell. One of the reasons why she is not compliant as due to polypharmacy. 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 She had reactions to two chemo drugs. In remission. POTs causing hypotension. ITS, tachy-sharmin syndrome s/p pacemaker. She had a hysterectomy due to menorrhagia from fibroids. No family history of rheumatological condition or muscle disease. 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 She work 12 hour days x2-3. PFS Medical History Myalgia Environmental allergies Asthma Pulmonary emboli Pleuritic chest pain Abnormal serum angiotensin-converting enzyme level Cardiac arrhythmia Pulmonary nodules Dyspnea History of DVT (deep vein thrombosis) History of chemotherapy History of palpitations Hx of supraventricular tachycardia Narcolepsy Seasonal allergies Anxiety and depression Pacemaker Pernicious anemia B12 deficiency Active asthma POTS (postural orthostatic tachycardia syndrome) H/O brain tumor Surgical History History of repair of rectocele Hx of hysterectomy History of cardiac radiofrequency ablation (RFA) Hx of craniotomy H/O colonoscopy H/O esophagogastroduodenoscopy Hx of appendectomy Family History Mother Heart problem Maternal Grandfather Heart problem Paternal Grandmother Dementia Social History Household Members: None Are you a primary home care attendant to a significant other at home: No Do you presently have visiting nurse or other home services: Yes ([employer] 4.5 week) Alcohol intake: current Alcohol intake frequency: a few times a month Patient Tobacco Use Status: Never used Tobacco Review of Systems Const All systems reviewed & are unremarkable except as noted in HPI and below Physical Exam Vital Signs: Last Vital Signs Pulse 96 11/24/24 11:18 BP 120/76 11/24/24 11:18 Pulse Ox 99 11/24/24 11:18 Oxygen Delivery Method Room Air 11/24/24 11:18 BMI result Body Mass Index 27.5 Const Other: General: Comfortable CVS: RRR Respiratory: clear to auscultation bilaterally. Good respiratory effort Skin: No lesions seen MSK: No tenderness of any joint. No synovitis. She is able to get up from seated position to standing position without using hands on hand rest. She is able to squat. 5/5 power upper extremity. 4/5 power hip flexors bilateral. Rest of lower extremity is 5/5. Normal cervical rotation and extension. She does not have full cervical flexion on 1st try but it is normal on 2nd try. Normal lumbar flexion. Spinous process tenderness of cervical, thoracic and lumbar spine. Paraspinal muscle tenderness and laterally. She does not have multiple tender points on extremities. Assessment & Plan Assessment & Plan (1) Muscle weakness: Comment: 34-year-old female presenting with chronic myalgias and muscle weakness of upper and lower extremities in setting of chronic leukopenia with remote mild elevation in muscle enzymes. On exam she has lower proximal muscle weakness with diffuse spinal process tenderness. She has had antibody testing done with negative RESHMA and myositis specific panel. With mild elevation in muscle enzymes and subsequent normalization there could be an early form of idiopathic inflammatory myopathy underlying contributing to her symptoms. We discussed further workup. Code(s): M62.81 - Muscle weakness (generalized) Category: Medical Plan: I have ordered labs for further workup including rechecking inflammatory markers, muscle enzymes, hepatitis-B and C serologies and anti Gambino/WINDOW GLAZIER antibody EMG right upper and lower extremity ordered to facilitate targeted muscle biopsy on left side if muscle pathology is identified on EMG Urinalysis and urine culture to rule out UTI C-spine to L-spine imaging ordered I recommend vitamin-D repletion. Labs from July 2024 revealed vitamin-D deficiency. At this time she is not on vitamin-D. She will call office with updated medication list, medical and surgical history. Return to clinic in 2 months after EMG (2) Myalgia: Code(s): M79.10 - Myalgia, unspecified site Category: Medical Plan: See above (3) Right leg DVT: Comment: Unprovoked Code(s): I82.401 - Acute embolism and thrombosis of unspecified deep veins of right lower extremity Category: Medical Qualifiers: Affected thrombotic vein of extremity: unspecified vein of extremity Chronicity: acute Qualified Code(s): I82.401 - Acute embolism and thrombosis of unspecified deep veins of right lower extremity Plan: Antiphospholipid syndrome antibodies ordered (4) Joint pain: Comment: She has chronic back pain with localized pain to the spinous process throughout the spine. Paraspinal strain is contributing. She has preserved function Code(s): M25.50 - Pain in unspecified joint Category: Medical Qualifiers: Joint pain location: unspecified Qualified Code(s): M25.50 - Pain in unspecified joint Plan: X-ray C-spine to T-spine ordered (5) Hemoptysis: Comment: recurrent Code(s): R04.2 - Hemoptysis Category: Medical Plan: TB test ordered (6) Dysuria: Code(s): R30.0 - Dysuria Category: Medical Plan: Urinalysis and urine culture ordered (7) Back pain: Code(s): M54.9 - Dorsalgia, unspecified Category: Medical Qualifiers: Back pain location: back pain in unspecified location Chronicity: chronic Back pain laterality: midline Qualified Code(s): M54.9 - Dorsalgia, unspecified; G89.29 - Other chronic pain Plan: X-ray C-spine to L-spine ordered Orders: Orders Aspartate Amino Transferase Today M79.10 - Myalgia, unspecified site Complete Blood Count Auto Diff Today M79.10 - Myalgia, unspecified site Erythrocyte Sedimentation Rate Today Z79.899 - Other senior care (current) drug therapy T Spot TB Today R04.2 - Hemoptysis Cardiolipin Antibodies Today I82.401 - Acute embolism and thrombosis of unspecified deep veins of right lower extremity NE electromyogram (EMG) Today M62.81 - Muscle weakness (generalized), M79.10 - Myalgia, unspecified site Urine Culture Today R30.0 - Dysuria XR lumbar spine 2-3V Today M54.9 - Dorsalgia, unspecified C Reactive Protein Today Z79.899 - Other technician terminal and repeater (current) drug therapy Alanine Aminotransferase Today M79.10 - Myalgia, unspecified site Hepatitis B,C Profile Today M25.50 - Pain in unspecified joint, M79.10 - Myalgia, unspecified site Rheumatoid Factor Today M79.10 - Myalgia, unspecified site Sm Sm/WINDOW GLAZIER Antibodies Today M79.10 - Myalgia, unspecified site Cyclic Citrullinated Peptide Today M25.50 - Pain in unspecified joint Beta-2 Glycoprotein Antibody Today I82.401 - Acute embolism and thrombosis of unspecified deep veins of right lower extremity Lupus Anticoagulant Panel Today I82.401 - Acute embolism and thrombosis of unspecified deep veins of right lower extremity NE nerve conduction velocity Today M62.81 - Muscle weakness (generalized), M79.10 - Myalgia, unspecified site UA w Microscopic Today R30.0 - Dysuria XR cervical spine 3V Today M54.2 - Cervicalgia, M54.9 - Dorsalgia, unspecified XR thoracic spine 2V Today M54.9 - Dorsalgia, unspecified Coding Level of Care Code New Pt Level 4 (98486) Diagnoses Muscle weakness M62.81 Myalgia M79.10 Acute deep vein thrombosis (DVT) of right lower extremity, unspecified vein I82.401 Affected thrombotic vein of extremity: unspecified vein of extremity Chronicity: acute Arthralgia, unspecified joint M25.50 Joint pain location: unspecified Hemoptysis R04.2 Dysuria R30.0 Chronic midline back pain, unspecified back location M54.9; G89.29 Back pain location: back pain in unspecified location Chronicity: chronic Back pain laterality: midline
[2024-11-24 11:18] VITALS: BP 120/76; PULSE 96; O2SAT 99; BMI 27.5
--- OUTSIDE RECORDS SUMMARY | 2024-11-24 13:09 | XMS_ITS | Referral Summary ---
Author Organization [facility] Address [address] [place] [address] Care Team Providers Care Electronics Tech Name Role Phone Sisi Hernandez MD Primary Care Provider Allergies Active Allergy Reactions Criticality Noted Date Comments Cefoxitin Cough,Anaphylaxis High 05/09/2016 Medications No known medications Social History Tobacco Use Types Packs/Day Years [...] Plan of Treatment Not on file Insurance [facility] MEDICAID Care Teams Electronics Tech Relationship Specialty Start Date End Date Sisi Hernandez MD [address] [place] [address] PCP - General Internal Medicine 04/13/24
--- OUTSIDE RECORDS SUMMARY | 2024-11-24 13:09 | XMS_ITS | Clinical Summary ---
Author Organization [facility] Address [address] [place] [address] Care Team Providers Care Utility Technician Name Role Phone Sisi Hernandez MD Primary Care Provider +1- [phone] Allergies Active Allergy Reactions Criticality Noted Date [...] ATTENTION IF PAIN PERSISTS 25 tablet 2 5 Active Active Problems Problem Noted Date Diagnosed Date Right leg pain 09/05/2022 Sinoatrial node dysfunction (CMS/HCC V24, CMS/HC C V28) 09/05/2022 Inappropriate sinus tachycardia (CMS/HCC V24) Encounters Date Type Department Care Team Description 09/20/2024 7:20 PM EST Ancillary Procedure [facility] [address] [place] [address] from Last 3 Months Family History Medical [...] Care Team (Late st Contact Info) Description 12/15/2024 1:10 PM EDT Office Visit [facility] [address] [place] [address] Kelley Johnson PA [address] [place] [address] 01/26/2025 3:00 PM EDT Ancillary Procedure [facility] [address] [place] [address] Health Maintenance Due Date Last Done Comments [...] age to complete this topic Meningococcal B Vaccine Aged Out No l onger eligible based on patient's age to complete this topic RSV Immunization Patients Under 20 months Aged Out No longer eligible based on patient's age to complete this topic Varicella Vaccines Aged Out No longer eligible based on patient's age to complete this topic Medical Devices Implanted Type Area Finance Lead Device Identifier Shelf Expiration Date Model / Serial / Lot Medt-Card Advisa Dr De Guzman [id number] Implanted:08/2016 (Quantity not on file) Cardiac Pacemaker [employer] - CARDIAC RHYTH-CRDM ADVISA DR DE GUZMAN [id number] / [id number] / Procedures Procedure Name Priority Date/Time Associated Diagnosis Comments CARDIAC DEVICE CHECK- REMOTE- MURJ Routine 09/20/2024 7:19 PM EST from Last 3 Months Results * Cardiac device check - Remote- MURJ (09/20/2024 7:19 PM EST) Date Time Interrogation Session [id number] CV DEVICE CHECK Type Interrogation Session Remote CV DEVICE CHECK Implantable Pulse Generator Finance Lead MDT CV DEVICE CHECK Implantable Pulse Generator Type IPG CV DEVICE CHECK Implantable Pulse Generator Model Advisa DR MRI [id number] CV DEVICE CHECK Implantable Pulse Generator Serial Number [id number] CV DEVICE CHECK Implantable Pulse Generator Implant Date 20170530 CV DEVICE CHECK Battery Remaining Longevity 46.0 CV DEVICE CHECK Battery Voltage 2.970 CV D EVICE CHECK Battery PLASTIC MOLDING OPERATOR Trigger 2.830 CV DEVICE CHECK Battery Status Middle of Service CV DEVICE CHECK Silver Statistic RA Percent Paced 19.03 CV DEVICE CHECK Silver Statistic RV Percent Paced 0.34 CV DEVICE CHECK Atrial Tachy Statistic AT/AF [place] Percent 0.00 CV DEVICE CHECK Lead Channel [...] [employer]ANTAGE Care Teams Utility Technician Relationship Specialty Start Date End Date Sisi Hernandez MD [address] [place] [address] PCP - General 01/20/13
--- OUTSIDE RECORDS SUMMARY | 2024-11-24 13:09 | XMS_ITS | Clinical Summary ---
Author Organization [facility] Address [address] [place] [address] Care Team Providers Care Youth Associate Name Role Phone Sisi Hernandez MD [...] 2 - PCV) 11/23/2017 11/23/2016 COVID-19 Vaccine ( - 2023-2 5 season) 2024 10/14/2020, 09/05/2020 Alcohol/Substance Use Screening 07/29/2024 Depression Screening and Follow-Up 07/29/2024 Social Drivers of Health Sharron ual Screening 07/29/2024 DTaP,Tdap,and Td Vaccines (2 - Td or Tdap) 03/10/2028 03/10/2018 RSV Vaccine (60+ years old a nd patients) (1 - 1-dose 75+ series) 11/20/2066 Influenza Vaccine Completed 05/23/2024, , 06/04/2021, Additional history exists Insurance Care Teams Youth Associate Relationship Specialty Start Date End Date Sisi Hernandez MD [facility] [place] [address] PCP - General Internal Medicine 04/13/24
== END 2024-11-24 12:35 | disposition home or self-care (01) ==
LOC: HO.RHES 11:12
PROVIDERS: PCP Internal Medicine; Visit Provider Internal Medicine Rheumatology
DX: M79.10 Myalgia, unspecified site (principal); I82.401 Acute embolism and thrombosis of unspecified deep veins of right lower extremity; M25.50 Pain in unspecified joint; R04.2 Hemoptysis; R30.0 Dysuria; M54.9 Dorsalgia, unspecified; G89.29 Other chronic pain
CPT/HCPCS: 99204

== ENCOUNTER 2024-11-26 14:13 | Outpatient (REF) | payer OTHER, SELFPAY ==
--- NOTE | ~2024-11-26 | XR_ITS ---
CLINICAL HISTORY: M54.9 - Dorsalgia, unspecified 3 views lumbar spine Comparison: None Findings: Normal alignment. No acute fractures or dislocation. No significant degenerative change. IMPRESSION: No acute findings. This document has been electronically signed by: Radames Pearson MD on 11/28/2024 07:49:30
--- NOTE | ~2024-11-26 | XR_ITS ---
CLINICAL HISTORY: M54.9 - Dorsalgia, unspecified 3 views thoracic spine Comparison: None Findings: Normal alignment. No acute fractures or dislocation. No significant degenerative change. IMPRESSION: No acute findings. This document has been electronically signed by: Radames Pearson MD on 11/28/2024 07:49:15
--- NOTE | ~2024-11-26 | XR_ITS ---
CLINICAL HISTORY: M54.9 - Dorsalgia, unspecified 3 views cervical spine Comparison: None Findings: Normal alignment. No acute fractures or dislocation. No significant degenerative change. No prevertebral soft tissue swelling. IMPRESSION: No acute findings. This document has been electronically signed by: Radames Pearson MD on 11/28/2024 07:49:37
[2024-11-26 14:52] LABS: Appearance Urine Clear; Color Urine Yellow; Glucose Urine UA Negative (Negative); Leukocyte Esterase Urine Negative (Negative); Nitrite Urine Negative (Negative); PH 5.5 (5.0-9.0); Urine Blood Negative (Negative); Urine Ketones Trace mg/dL (Negative); Urine Protein Negative (Neg-Trace)
[2024-11-26 14:55] LABS: Bacteria Urine Trace (None Seen); Hyaline Casts Urine 0-2 /LPF (0-2); RBC Urine 0-2 /HPF (0-2); Squamous Epithelial Cell Urine 0-2 /HPF (0-2); WBC Urine 0-5 /HPF (0-5)
[2024-11-26 15:42] LABS: Erythrocyte Sedimentation Rate 7 MM/HR (0-20)
--- OUTSIDE RECORDS SUMMARY | 2024-11-26 16:26 | XMS_ITS | Clinical Summary ---
Author Organization Patient Business Ser [facility] Address [address] [place] [address] Care Team Providers Care Territory Representative Name Role Phone Sisi Hernandez MD Primary Care Provider +1- [phone] Allergies Active Allergy Reactions Criticality Noted Date [...] Description 09/20/2024 7:20 PM EST Ancillary Procedure [facility] - [address] [place] [address] from Last 3 Months Family History Medical [...] Description 12/15/2024 1:10 PM EDT Office Visit [facility] Cardiology [facility] - [address] [place] [address] Kelley Johnson PA [address] [place] [address] 01/26/2025 3:00 PM EDT Ancillary Procedure [facility] Cardiology [facility] - [address] [place] [address] Health Maintenance Due Date Last Done Comments [...] this topic Medical Devices Implanted Type Area Joy Loading Machine Operator Device Identifier Shelf Expiration Date Model / Serial / Lot Medt-Card Advisa Dr De Guzman [id number] Implanted:08/2016 (Quantity not on file) Cardiac Pacemaker [employer] - CARDIAC RHYTH-CRDM ADVISA DR DE GUZMAN [id number] / [id number] / Procedures Procedure Name Priority Date/Time Associated Diagnosis Comments CARDIAC DEVICE CHECK- REMOTE- MURJ Routine 09/20/2024 7:19 PM EST from Last 3 Months Results * Cardiac device check - Remote- MURJ (09/20/2024 7:19 PM EST) Date Time Interrogation Session [id number] CV DEVICE CHECK Type Interrogation Session Remote CV DEVICE CHECK Implantable Pulse Generator Joy Loading Machine Operator MDT CV DEVICE CHECK Implantable Pulse Generator Type IPG CV DEVICE CHECK Implantable Pulse Generator Model Advisa DR MRI [id number] CV DEVICE CHECK Implantable Pulse Generator Serial Number [id number] CV DEVICE CHECK Implantable Pulse Generator Implant Date 20170530 CV DEVICE CHECK Battery Remaining Longevity 46.0 CV DEVICE CHECK Battery Voltage 2.970 CV D EVICE CHECK Battery FIBERGLASS TUBE MOLDER Trigger 2.830 CV DEVICE CHECK Battery Status Middle of Service CV DEVICE CHECK Silver Statistic RA Percent Paced 19.03 CV DEVICE CHECK Silver Statistic RV Percent Paced 0.34 CV DEVICE CHECK Atrial Tachy Statistic AT/AF [place] Percent 0.00 CV DEVICE CHECK Lead Channel [...] [place] Care Teams Territory Representative Relationship Specialty Start Date End Date Sisi Hernandez MD [address] [place] [address] PCP - General 01/20/13
--- OUTSIDE RECORDS SUMMARY | 2024-11-26 16:26 | XMS_ITS | Referral Summary ---
Author Organization [facility] Address [address] [place] [address] Care Team Providers Care Chronic Condition Nurse Name Role Phone Sisi Hernandez MD Primary [...] Plan of Treatment Not on file Insurance [facility] MEDICAID Care Teams Chronic Condition Nurse Relationship Specialty Start Date End Date Sisi Hernandez MD [address] [place] [address] PCP - General Internal Medicine 04/13/24
--- OUTSIDE RECORDS SUMMARY | 2024-11-26 16:26 | XMS_ITS | Clinical Summary ---
Author Organization [facility] Address [address] [place] [address] Care Team Providers Care Layer Off Name Role Phone Sisi Hernandez MD Primary [...] 06/04/2021, Additional history exists Insurance Care Teams Layer Off Relationship Specialty Start Date End Date Sisi Hernandez MD [facility] [place] [address] PCP - General Internal Medicine 04/13/24
[2024-12-02 05:58] LABS: PTT (LAC) Screen 39 sec (<=40)
== END 2024-11-26 14:14 | disposition home or self-care (01) ==
LOC: HO.LAB 14:13
PROVIDERS: PCP Internal Medicine; Visit Provider Internal Medicine Rheumatology
DX: M54.9 Dorsalgia, unspecified (principal)
CPT/HCPCS: 36415; 72040; 72070; 72100; 81001; 85597; 85598; 85613; 85652; 85730; 87086

== ENCOUNTER → 2024-11-26 14:42 | Outpatient (BNV) | payer OTHER, SELFPAY | PROVIDERS: PCP Internal Medicine; Visit Provider Specialist | DX: M54.9 Dorsalgia, unspecified (principal) | CPT/HCPCS: 72040; 72070; 72100 ==

== ENCOUNTER 2024-11-30 13:09 | Outpatient (AMB) | payer OTHER, SELFPAY ==
--- NOTE | 2024-11-30 13:09 | A.OFFVIS_ITS ---
Intake Visit Reasons: 6-8 wks f/u Intake Note: Ekta presents as a telehealth for a 8 week follow up. CC: States that she was seen at hematology and they want her to do more blood work. She states she has thed same issues and same issues with her stomach. Nothing really has changed. She is having issues now and she is in the grocery store. Forestry Supervisor Required: No Allergies cefoxitin [CEFOXITIN] Allergy (Severe, Verified 11/30/24 13:09) Anaphylaxis sertraline Allergy (Severe, Verified 11/30/24 13:09) itching vancomycin [VANCOMYCIN] Allergy (Severe, Verified 11/30/24 13:09) Anaphylaxis HPI HPI 6-8 wks f/u: Details: 34 y/o female with POT syndrome, pacemaker, uterine fibroid and rectocele, meduloblastoma who is being called for f/u RECAP-initially saw [facility] pain in her stomach, when she ate- If she goes 3-4 hours without food she gets abdominal pain, often RUQ She feels like food sits in her stomach it just does not digest. Times as causes her nausea. Carafate 1 gm tid Previously treated with Rifaximin for SIBO- she now takes it intermittently, somewhat p.r.n. She was seeing Dr. Bello, as well as Dr. Leigh- Has always has GI problems, since she was a kid- The pain she has now is way different. Mostly epigastric, bloating She has had a pacemaker for 2 years sleep variable dx with narcolepsy, on armodafinil maybe affecting her appetite negative genetic tests for NF and colorectal d/o TESTS: EGD/colonoscopy 2016 [facility] MRI A/P: no inflammation, stool burden noted duplex: mild raised velocities she had MR defecography with fibroid, rectocele repeat Colonoscopy/EGD 10/2021; Endoscopy Findings: erosive gastritis possible reta Colonoscopy Findings: internal hemorrhoids abnormal appearing TI Path: A. Duodenum, biopsy: Duodenal mucosa with mildly increased intraepithelial lymphocytes and preserved villous architecture; negative for T. whipplei. See comment. B. Stomach, biopsy: Oxyntic mucosa with mild chronic inactive inflammation; no Helicobacter organisms seen. C. Esophagus, random, biopsy: Active esophagitis (maximum eosinophil count focally up to 19 per high powered field). D. Terminal ileum, biopsy: Terminal ileal mucosa within normal limits. E. Colon, random, biopsy: Colonic mucosa within normal limits. LABS: neg celiac, b12, nml, pernicious anemia ab--neg, fat oren vits were nml, RAST -- pos for milk, hazelnut, wheat, egg CXR--nml Ba swallow-tablet passed easily, but sub optimal study as couldn drink the barium, reflux EGD 10/03/22 schatzki ring mild esophagitis lax LES dilation to 16 mm--no tears I referred her to pulm for hemoptysis w/u for sarcoid due to high TAMEKA--negative, but v high IgE and put on xolair for asthma sx she also had a qn of PTE, its is uncertain --awaiting rept CTPE she had a hysterectomy, and had rectocele repaired 07/31/22 I offered her a second opinion, ongoing constipation, ?benefit from subtotal colectomy she tried rifaximin but didn't help her sx she was unable to tolerate motegrity, amitiza, linaclotide, lactulose - sutab trial --trulance worked best but her body stopped responding to it INTERIM: she is taking trulance with senna and that helps her constipation she still has issues with odor and smell she has bouts of abdominal pain, may be better with passing stool and flatus she is waiting for EMG MRI pancreas was unremarkable Assessments 1. 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, may have gastropar esis as well , now with high aldolase and CPK with muscle tenderness --repeat aldolase was negative --seeing rheum now 2, ?fish odor syndrome PLAN: 1/ trial of avoiding fish products which she likes, can try vit b2 as well and see if helps --[facility] to [facility] lab for the TMAU testing [facility] Medical History Myalgia Environmental allergies Asthma Pulmonary emboli Pleuritic chest pain Abnormal serum angiotensin-converting enzyme level Cardiac arrhythmia Pulmonary nodules Dyspnea History of DVT (deep vein thrombosis) History of chemotherapy History of palpitations Hx of supraventricular tachycardia Narcolepsy Seasonal allergies Anxiety and depression Pacemaker Pernicious anemia B12 deficiency Active asthma POTS (postural orthostatic tachycardia syndrome) H/O brain tumor Surgical History History of repair of rectocele Hx of hysterectomy History of cardiac radiofrequency ablation (RFA) Hx of craniotomy H/O colonoscopy H/O esophagogastroduodenoscopy Hx of appendectomy Family History Mother Heart problem Maternal Grandfather Heart problem Paternal Grandmother Dementia Social History Household Members: None Are you a primary youth career specialist to a significant other at home: No Do you presently have visiting nurse or other home services: Yes ([employer] 4.5 week) Alcohol intake: current Alcohol intake frequency: a few times a month Patient Tobacco Use Status: Never used Tobacco Telehealth Telehealth Telehealth Platform: Telephone Location of provider rendering services: practice address Location of patient: address on file Patient Identification confirmed using: Name, : Yes Telehealth method: voice only Patient verbally consented to treatment: Yes Patient verbally consented to billing insurance company: Yes Patient informed of any privacy concerns related to visit: Yes Minutes spent on Phone/Video with Pt.: 11 Assessment & Plan Assessment & Plan (1) Constipation by outlet dysfunction: Code(s): K59.02 - Outlet dysfunction constipation Category: Medical Plan: as above Coding Level of Care Code Tele Est Pt Level 3 (04145) Diagnoses Constipation by outlet dysfunction K59.02
--- OUTSIDE RECORDS SUMMARY | 2024-11-30 14:30 | XMS_ITS | Continuity of Care Document ---
Author Organization [facility] Address [address] [place] [address]- Care Team Providers Care Ict Managers Name Role Phone Mary KEATING, Sisi Almanza Primary Care Physician Encounter [facility] Date(s): 10/28/24 - 11/27/24 [facility] [address] [place], [place] [address] Encounter Type: Triage Allergies, Adverse Reactions, Alerts Substance Criticality Severity Reaction Reaction Severity Status Sertraline Hydrochloride skin burning burning Active cefoxitin Cough Tightness in throat Active vancomycin Throat itching Itching of skin Active Fruit 1 rash Allergy to fruit Active 1not specific Immunizations Given and Recorded Vaccine Date Status Refusal Reason influenza virus vaccine, inactivated 05/23/24 Adarsh rded influenza virus vaccine, inactivated 05/16/23 Adarsh rded [...] PM EDT, Aerosol, Route to Pharmacy Electronically, [id number], [facility], ONLY ALBUTEROL HFA, CANCEL VENTOLIN RX, 155, cm, 12/08/21 10:46:00 EDT, Height, 68.5, kg, 06/03/20 13:18:00 EST, Dry Weight Start Date: 02/15/22 Stop Date: 02/10/23 Status: Ordered Quantity: 2.0 Unit: each Repeat number: 12 Align 4 mg oral capsule 1 capsule = 4 mg, By Mouth, Daily, # 28 capsule, 5 Refills, Maintenance, 10/21/24 2:20:00 PM EDT, Capsule, [facility], Partial fill upon patient request if the prescription is for a schedule II opioid drug., 155, cm, 10/21/24 13:26:00 EDT, Height, 67, kg, 10/21/24 13:26:00 EDT, Dry Weight Start Date: 10/21/24 Status: Ordered Quantity: 28.0 Unit: capsule Repeat number: 6 aluminum chloride hexahydrate 20% topical solution 1 application, Topically, Daily at bedtime, PRN as needed for excessive sweating, # 60 mL, 3 Refills, Maintenance, 06/14/24 3:48:00 PM EST, Solution, [facility], Partial fill upon patient request if [...] a day, PRN, # 180 capsule, Refills 1, Tot. Refills 1, Maintenance, for constipation, 09/09/24 2:35:00 PM EST, Route to Pharmacy Electronically, [facility], Partial fill upon patient request if the prescription is for a schedule II opioid drug., 155, cm, 08/11/24 13:24:00 EST, Height, 67.4, kg, 08/11/24 13:24:00 EST, Dry Weight Start Date: 09/09/24 Status: Ordered Quantity: 180.0 Unit: capsule Repeat number: 2 Compression Stockings See Instructions, # 2 units, [...] days, # 7 mL, 11 Refills, Maintenance, 10/21/24 2:23:00 PMEDT, Solution, [facility], dose change, 155, cm, 10/21/24 13:26:00 EDT, Height, 67, kg, 10/21/24 13:26:00 EDT, Dry Weight Start Date: 10/21/24 Status: Ordered Quantity: 7.0 Unit: mL Repeat [...] 5 Refills, Maintenance, 11/22/23 3:46:00 PM EDT, [facility], Partial fill upon patient [...] 2 Refills, Maintenance, 02/06/24 12:19:00 PM EDT, [facility], 155, cm, 02/06/24 11:49:00 EDT,Height, 71, [...] Daily at bedtime, PRN for constipation, # 180 tablet, 1 Refills, Maintenance, 09/15/24 11:14:00 AM EST, Tablet, [facility], Partial fill upon patient request if the prescription is for a schedule II opioid drug., 155, cm, 08/11/24 13:24:00 EST, Height, 67.4, kg, 08/11/24 13:24:00 EST, Dry Weight Start Date: 09/15/24 Status: Ordered Quantity: 180.0 Unit: tablet Repeat number: 2 syringe and needles syringe and needles, See Instructions, # 11 Unknown, Refills 3, Tot. Refills 3, Maintenance, syringe 3cc needles 25 g X 5/8 inches for use with b12, 10/21/24 3:19:00 PM EDT, Compound, 155, cm, 10/21/24 13:26:00 EDT, Height, 67, kg, 10/21/24 13:26:00 EDT, Dry Weight Start Date: 10/21/24 Status: Ordered Quantity: 11.0 Unit: Unknown Repeat number: 4 syringe and needles syringe and needles, See [...] Active Memory change Confirmed Active *[facility]ias [facility]- [phone]/[facility] senior living, active care coordination Confirmed Active [...] Member Role: Primary Care Nurse Name: Sisi Hernanedz MD Position: [facility] Physician - Primary Care Member Role: PCP Address: [address] [place] [address]- Telecom: Name: Lizzette To RN Position: [facility] SN RN Member Role: Primary Care Nurse Name: Karolina Adkins MD Position: [facility] Physician - Primary Care Member Role: Lifetime Consulting Physician Address: [address] [facility] [place] [address]- Telecom: Name: Isadora Godfrey RN Position: [facility] [...] Care Nurse Name: Bela Sherman RN Position: [facility] Hospital Kennel Manager Member Role: Primary Care Nurse Name: Jeanne Grande RN Position: [facility] RN Member Role: Primary Care Nurse Care Team Related Persons Name: BEAR TURNER Name: BEAR TURNER SECONDARY Name: ISATU ECKERT Name: ISAAC VERDE PRIMARY Name: ADRY DURANT Name: PANCHO JEROME Insurance Providers Guarantor name: ANSELMO TURNER Health Plan Information #: 1 Payer: [employer] Member Number: NA Policy Number: NA Group Number: NA Health Plan Information #: 2 Payer: [facility] Member Number: NA Policy Number: NA Group Number: NA
--- OUTSIDE RECORDS SUMMARY | 2024-11-30 14:30 | XMS_ITS | Clinical Summary ---
Author Organization [facility] Address [address] [place] [address] Care Team Providers Care Commercial Diver Name Role Phone Sisi Hernandez MD Primary [...] 06/04/2021, Additional history exists Insurance Care Teams Commercial Diver Relationship Specialty Start Date End Date Sisi Hernandez MD [facility] [place] [address] PCP - General Internal Medicine 04/13/24
--- OUTSIDE RECORDS SUMMARY | 2024-11-30 14:30 | XMS_ITS | Clinical Summary ---
Author Organization Patient Business Ser [facility] Address [address] [place] [address] Care Team Providers Care Chemical Lab Technician Name Role Phone Sisi Hernandez MD Primary Care Provider [phone]- [phone] Allergies Active Allergy Reactions Criticality Noted Date [...] 09/20/2024 7:20 PM EST Ancillary Procedure [facility] - [address] [place] [address] from Last 3 Months Family History Medical [...] Description 12/15/2024 1:10 PM EDT Office Visit [facility] Cardiology [facility] - [address] [place] [address] Kelley Johnson PA [address] [place] [address] 01/26/2025 3:00 PM EDT Ancillary Procedure [facility] Cardiology [facility] - [address] [place] [address] Health Maintenance Due Date Last Done Comments [...] this topic Medical Devices Implanted Type Area Net Mvc Developer Device Identifier Shelf Expiration Date Model / Serial / Lot Medt-Card Advisa Dr De Guzman [id number] Implanted:08/2016 (Quantity not on file) Cardiac Pacemaker [employer] - CARDIAC RHYTH-CRDM ADVISA DR DE GUZMAN [id number] / [id number] / Procedures Procedure Name Priority Date/Time Associated Diagnosis Comments CARDIAC DEVICE CHECK- REMOTE- MURJ Routine 09/20/2024 7:19 PM EST from Last 3 Months Results * Cardiac device check - Remote- MURJ (09/20/2024 7:19 PM EST) Date Time Interrogation Session [id number] CV DEVICE CHECK Type Interrogation Session Remote CV DEVICE CHECK Implantable Pulse Generator Net Mvc Developer MDT CV DEVICE CHECK Implantable Pulse Generator Type IPG CV DEVICE CHECK Implantable Pulse Generator Model Advisa DR MRI [id number] CV DEVICE CHECK Implantable Pulse Generator Serial Number [id number] CV DEVICE CHECK Implantable Pulse Generator Implant Date 20170530 CV DEVICE CHECK Battery Remaining Longevity 46.0 CV DEVICE CHECK Battery Voltage 2.970 CV D EVICE CHECK Battery ANIME DESIGNER Trigger 2.830 CV DEVICE CHECK Battery Status Middle of Service CV DEVICE CHECK Silver Statistic RA Percent Paced 19.03 CV DEVICE CHECK Silver Statistic RV Percent Paced 0.34 CV DEVICE CHECK Atrial Tachy Statistic AT/AF [place] Percent 0.00 CV DEVICE CHECK Lead Channel [...] [place] Care Teams Chemical Lab Technician Relationship Specialty Start Date End Date Sisi Hernandez MD [address] [place] [address] PCP - General 01/20/13
--- OUTSIDE RECORDS SUMMARY | 2024-11-30 14:30 | XMS_ITS | Referral Summary ---
Author Organization [facility] Address [address] [place] [address] Care Team Providers Care Gutter Hanger Name Role Phone Sisi Hernandez MD Primary [...] Plan of Treatment Not on file Insurance [facility] MEDICAID Care Teams Gutter Hanger Relationship Specialty Start Date End Date Sisi Hernandez MD [address] [place] [address] PCP - General Internal Medicine 04/13/24
== END 2024-11-30 18:10 ==
LOC: HO.HGI 13:09
PROVIDERS: PCP Internal Medicine; Visit Provider Internal Medicine Gastroenterology
DX: K59.02 Outlet dysfunction constipation (principal)
CPT/HCPCS: 98012

== ENCOUNTER 2024-12-10 14:14 | Outpatient (REF) | payer OTHER, SELFPAY ==
--- OUTSIDE RECORDS SUMMARY | 2024-12-10 14:55 | XMS_ITS | Clinical Summary ---
Author Organization [facility] Address [address] [place] [address] Care Team Providers Care Earthmoving Labourer Name Role Phone Sisi Hernandez MD Primary [...] 06/04/2021, Additional history exists Insurance Care Teams Earthmoving Labourer Relationship Specialty Start Date End Date Sisi Hernandez MD [facility] [place] [address] PCP - General Internal Medicine 04/13/24
--- OUTSIDE RECORDS SUMMARY | 2024-12-10 14:55 | XMS_ITS | Referral Summary ---
Author Organization [facility] Address [address] [place] [address] Care Team Providers Care Assembler For Puller Over Hand Name Role Phone Sisi Hernandez MD Primary Care Provider [phone] Allergies Active Allergy Reactions Criticality Noted Date [...] Plan of Treatment Not on file Insurance [facility] MEDICAID Care Teams Assembler For Puller Over Hand Relationship Specialty Start Date End Date Sisi Hernandez MD [address] [place] [address] PCP - General Internal Medicine 04/13/24
--- OUTSIDE RECORDS SUMMARY | 2024-12-10 14:55 | XMS_ITS | Clinical Summary ---
Author Organization Patient Business Ser [facility] Address [address] [place] [address] Care Team Providers Care Storage Battery Tester Name Role Phone Sisi Hernandez MD Primary Care Provider [phone]- [phone] Allergies Active Allergy Reactions Criticality Noted Date [...] Description 09/20/2024 7:20 PM EST Ancillary Procedure [facility] - [address] [place] [address] from Last 3 Months Family History Medical [...] Description 12/15/2024 1:10 PM EDT Office Visit [facility] Cardiology [facility] - [address] [place] [address] Kelley Johnson PA [address] [place] [address] 01/26/2025 3:00 PM EDT Ancillary Procedure [facility] Cardiology [facility] - [address] [place] [address] Health Maintenance Due Date Last Done Comments [...] this topic Medical Devices Implanted Type Area Navigation Teacher Device Identifier Shelf Expiration Date Model / Serial / Lot Medt-Card Advisa Dr De Guzman [id number] Implanted:08/2016 (Quantity not on file) Cardiac Pacemaker [employer] - CARDIAC RHYTH-CRDM ADVISA DR DE GUZMAN [id number] / [id number] / Procedures Procedure Name Priority Date/Time Associated Diagnosis Comments CARDIAC DEVICE CHECK- REMOTE- MURJ Routine 09/20/2024 7:19 PM EST from Last 3 Months Results * Cardiac device check - Remote- MURJ (09/20/2024 7:19 PM EST) Date Time Interrogation Session [id number] CV DEVICE CHECK Type Interrogation Session Remote CV DEVICE CHECK Implantable Pulse Generator Navigation Teacher MDT CV DEVICE CHECK Implantable Pulse Generator Type IPG CV DEVICE CHECK Implantable Pulse Generator Model Advisa DR MRI [id number] CV DEVICE CHECK Implantable Pulse Generator Serial Number [id number] CV DEVICE CHECK Implantable Pulse Generator Implant Date 20170530 CV DEVICE CHECK Battery Remaining Longevity 46.0 CV DEVICE CHECK Battery Voltage 2.970 CV D EVICE CHECK Battery MANAGER COMMUNITY Trigger 2.830 CV DEVICE CHECK Battery Status Middle of Service CV DEVICE CHECK Silver Statistic RA Percent Paced 19.03 CV DEVICE CHECK Silver Statistic RV Percent Paced 0.34 CV DEVICE CHECK Atrial Tachy Statistic AT/AF [place] Percent 0.00 CV DEVICE CHECK Lead Channel [...] [place]ANTAGE Care Teams Storage Battery Tester Relationship Specialty Start Date End Date Sisi Hernandez MD [address] [place] [address] PCP - General 01/20/13
--- OUTSIDE RECORDS SUMMARY | 2024-12-10 14:55 | XMS_ITS | Continuity of Care Document ---
Author Organization [facility] Address [address] [place] [address]- Care Team Providers Care Rag Baler Name Role Phone Mary KEATING, Sisi Almanza Primary Care Physician [phone] Encounter [facility] Date(s): 11/05/24 - 12/05/24 [facility] [address] [place], [place] [address] Encounter Type: Triage Allergies, Adverse Reactions, [...] PM EDT, Aerosol, Route to Pharmacy Electronically, [id number], [facility], ONLY ALBUTEROL HFA, CANCEL VENTOLIN RX, 155, cm, 12/08/21 10:46:00 EDT, Height, 68.5, kg, 06/03/20 13:18:00 EST, Dry Weight Start Date: 02/15/22 Stop Date: 02/10/23 Status: Ordered Quantity: 2.0 Unit: each Repeat number: 12 Align 4 mg oral capsule 1 capsule = 4 mg, By Mouth, Daily, # 28 capsule, 5 Refills, Maintenance, 10/21/24 2:20:00 PM EDT, Capsule, [facility], Partial fill upon patient request if [...] Refills, Maintenance, 06/14/24 3:48:00 PM EST, Solution, [facility], Partial fill upon patient request if [...] 2:35:00 PM EST, Route to Pharmacy Electronically, [facility], Partial fill upon patient [...] 11 Refills, Maintenance, 10/21/24 2:23:00 PMEDT, Solution, [facility], dose change, 155, cm, 10/21/24 13:26:00 [...] 5 Refills, Maintenance, 11/22/23 3:46:00 PM EDT, [facility], Partial fill upon patient [...] 2 Refills, Maintenance, 02/06/24 12:19:00 PM EDT, [facility], 155, cm, 02/06/24 11:49:00 EDT,Height, [...] Refills, Maintenance, 09/15/24 11:14:00 AM EST, Tablet, [facility], Partial fill upon patient request [...] Active Memory change Confirmed Active *[facility]ias [facility]- [phone]/Health intermediate, active care coordination Confirmed Active POTS [...] [facility] Physician - Primary Care Member Role: PCP Address: [address] [place] [address]- Telecom: Name: Lizzette To RN Position: [facility] SN RN Member Role: Primary Care Nurse Name: Karolina Adkins MD Position: [facility] Physician - Primary Care Member Role: Lifetime Consulting Physician Address: [address] [facility] [place] [address]- Telecom: Name: Isadora Godfrey RN Position: [facility] RN Member Role: Primary Care Nurse Name: Rossy Rowe RN Position: [facility] SN RN Member Role: Primary Care Nurse Name: Cindi Hayward RN Position: [facility] RN Member Role: Primary Care Nurse Name: Nicole Hernandez RN Position: [facility] RN Member Role: Primary Care Nurse Name: Zac Castillo RN Position: [facility] ED RN W/OE and Tasks Member Role: Primary Care Nurse Name: Bela Sherman RN Position: [facility] Hospital Bus Assistant Member Role: Primary Care Nurse Name: Jeanne Grande RN Position: [facility] RN Member Role: Primary Care Nurse Care Team Related Persons Name: BEAR TURNER Name: BEAR TURNER SECONDARY Name: ISATU ECKERT Name: ISAAC VERDE PRIMARY Name: ADRY DURANT Name: PANCHO JEROME Insurance Providers Guarantor name: ANSELMO TURNER Health Plan Information #: 1 Payer: [employer] Member Number: NA Policy Number: NA Group Number: NA Health Plan Information #: 2 Payer: [facility] Member Number: NA Policy Number: NA Group Number: NA
== END 2024-12-10 14:15 | disposition home or self-care (01) ==
LOC: HO.LAB 14:14
PROVIDERS: PCP Internal Medicine; Visit Provider Internal Medicine Rheumatology
DX: M62.81 Muscle weakness (generalized) (principal)
CPT/HCPCS: 36415; 82085; 82550

== ENCOUNTER 2025-02-09 09:15 | Outpatient (AMB) | payer OTHER, SELFPAY ==
--- OUTSIDE RECORDS SUMMARY | 2025-02-05 23:59 | XMS_ITS | Continuity of Care Document ---
Author Organization [facility] Address [address] [place] [address]- Care Team Providers Care [employer] Senior Sergeant Name Role Phone Mary KEATING, Sisi Almanza Primary Care Physician Encounter [facility] Date(s): 01/06/25 - 02/05/25 [facility] [address] [place] [address]- Encounter Type: Triage Allergies, Adverse Reactions, Alerts [...] PM EDT, Aerosol, Route to Pharmacy Electronically, [id number], [facility], ONLY ALBUTEROL HFA, CANCEL VENTOLIN RX, 155, cm, 12/08/21 10:46:00 EDT, Height, 68.5, kg, 06/03/20 13:18:00 EST, Dry Weight Start Date: 02/15/22 Stop Date: 02/10/23 Status: Ordered Quantity: 2.0 Unit: each Repeat number: 12 Align 4 mg oral capsule 1 capsule = 4 mg, By Mouth, Daily, # 28 capsule, 5 Refills, Maintenance, 10/21/24 2:20:00 PM EDT, Capsule, [facility], [...] Refills, Maintenance, 06/14/24 3:48:00 PM EST, Solution, [facility], Partial fill [...] 2:35:00 PM EST, Route to Pharmacy Electronically, [facility] [address] [facility] [...] 11 Refills, Maintenance, 10/21/24 2:23:00 PMEDT, Solution, [facility], dose change, 155, cm, [...] 5 Refills, Maintenance, 11/22/23 3:46:00 PM EDT, [facility], Partial fill [...] 2 Refills, Maintenance, 02/06/24 12:19:00 PM EDT, [facility], 155, cm, 02/06/24 11:49:00 EDT,Height, 71, kg, 02/06/24 11:49:00 EDT, Dry Weight Start Date: 02/06/24 Status: Ordered Quantity: 28.0 Unit: tablet Repeat number: 3 Metoprolol Tartrate 50 mg oral tablet 0 Refills, Maintenance, 03/04/20 9:58:00 AM EDT Start Date: 03/04/20 Status: Ordered Repeat number: 1 morphine 15 mg oral tablet, immediate release 1 tablet = 15 mg, By Mouth, Every 4 hours, PRN as needed for pain, may cut in half, # 7 tablet, 0 Refills, Maintenance, 01/19/25 7:26:00 PM EDT, Tablet, [facility], Partial fill upon patient request if the prescription is for a schedule II opioid drug., 156, cm, 01/19/25 6:09:00 EDT, Height, 70.3, kg, 01/19/25 6:09:00 EDT, Dry Weight Start Date: 01/19/25 Status: Ordered Quantity: 7.0 Unit: tablet Repeat number: 1 morphine 30 mg oral tablet, immediate release 1 tablet = 30 mg, By Mouth, Every 6 hours, PRN for pain, 1/4 tab, # 4 tablet, 0 Refills, Maintenance, 01/19/25 7:47:00 PM EDT, Tablet, [facility], Partial fill upon patient request if the prescription is for a schedule II opioid drug., 156, cm, 01/19/25 6:09:00 EDT, Height, 70.3, kg, 01/19/25 6:09:00 EDT, Dry Weight Start Date: 01/19/25 Status: Ordered Quantity: 4.0 Unit: tablet Repeat number: 1 nitroglycerin 0.4 mg sublingual [...] Refills, Maintenance, 09/15/24 11:14:00 AM EST, Tablet, [facility], Partial fill [...] Confirmed 01/23/16 Active Memory change Confirmed Active *[facility]- [phone]/Health penitentiary, active care coordination Confirmed Active POTS (postural orthostatic tachycardia syndrome) Confirmed Active 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 Social History Social History Type Response Smoking Status Never smoker; Tobacc o user in household: No entered on: 04/11/16 Sex Sex Representation Female (finding) Patient Care team information Care Team Personnel Name: Vidhya Grace RN Position: [facility] RN Member Role: Primary Care Nurse Name: Sisi Hernandez MD Position: [facility] Physician - Primary Care Member Role: PCP Address: [address] [place] [address] Telecom: Name: Lizzette To RN Position: [facility] SN RN Member Role: Primary Care Nurse Name: Karolina Adkins MD Position: [facility] Physician - Primary Care Member Role: Lifetime Consulting Physician Address: [address] [place] [address] [facility] [address] Telecom: Name: Isadora Godfrey RN Position: [facility] [...] Care Nurse Name: Bela Sherman RN Position: [facility] Manufacturing Process Technician Member Role: Primary Care Nurse Name: Harjinder MONTELONGO, Jeanne Baker Position: [facility] RN Member Role: Primary Care Nurse Care Team Related Persons Name: BEAR TURNER Name: BEAR TURNER SECONDARY Name: TEDDYCELENA ISATU Name: ISAAC VERDE PRIMARY Name: ADRY DURANT Name: PANCHO JEROME Insurance Providers Guarantor name: ANSELMO TURNER Health Plan Information #: 1 Payer: [facility] Payer Identifier: NA Member Number: [id number] Group Number: [id number] Subscriber Identifier: [id number] Relationship to Subscriber: self Coverage Type: Medicaid (Managed Care) Coverage Verification Date: NA Telecom: NA Address: [facility] Information #: 2 [facility] [employer] Payer Identifier: NA Member Number: [id number] Group Number: Subscriber Identifier: [id number] Relationship to Subscriber: self Coverage Type: MEDICAID Coverage Verification Date: NA Telecom: NA Address:
--- NOTE | 2025-02-09 09:18 | MHC.OFFVIS ---
Vital Signs 02/09/25 09:23 Height 5 ft 3 in Weight 161 lb BMI 28.5 BP 90/68 Blood Pressure Location Rt brachial Position Sitting Pulse 76 Pulse Source Pulse Oximeter Pulse Oximetry (%) 99 Oxygen Delivery Method Room Air Intake Visit Reasons: follow up Intake Note: Pt presents today for her first appt of myalgia Allergies cefoxitin (CEFOXITIN) Allergy (Severe, Verified 02/09/25 09:20) Anaphylaxis sertraline Allergy (Severe, Verified 02/09/25 09:20) itching vancomycin (VANCOMYCIN) Allergy (Severe, Verified 02/09/25 09:20) Anaphylaxis HPI HPI follow up: Details: UE weakness. Drops things. In anticipation of dropping she puts things down. 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 She has difficulty lifting. Hands are tingling in the morning. Pain in hands and feet with swelling in th emorning. PFSH Medical History Myalgia Environmental allergies Asthma Pulmonary emboli Pleuritic chest pain Abnormal serum angiotensin-converting enzyme level Cardiac arrhythmia Pulmonary nodules Dyspnea History of DVT (deep vein thrombosis) History of chemotherapy History of palpitations Hx of supraventricular tachycardia Narcolepsy Seasonal allergies Anxiety and depression Pacemaker Pernicious anemia B12 deficiency Active asthma POTS (postural orthostatic tachycardia syndrome) H/O brain tumor Surgical History History of repair of rectocele Hx of hysterectomy History of cardiac radiofrequency ablation (RFA) Hx of craniotomy H/O colonoscopy H/O esophagogastroduodenoscopy Hx of appendectomy Family History Mother Heart problem Maternal Grandfather Heart problem Paternal Grandmother Dementia Social History Household Members: None Are you a primary patient care technician instructor to a significant other at home: No Do you presently have visiting nurse or other home services: Yes ([employer] 4.5 week) Alcohol intake: current Alcohol intake frequency: a few times a month Patient Tobacco Use Status: Never used Tobacco Physical Exam Vital Signs: Last Vital Signs Pulse 76 07/15/25 09:23 BP 90/68 02/09/25 09:23 Pulse Ox 99 02/09/25 09:23 Oxygen Delivery Method Room Air 02/09/25 09:23 BMI result Body Mass Index 28.5 Const Other: General: Comfortable CVS: RRR Respiratory: clear to auscultation bilaterally. Good respiratory effort Skin: No lesions seen MSK: Left shoulder pain and left biceps pain. No synovitis. She is able to get up from seated position to standing position without using hands on hand rest. She is able to squat. 5/5 power upper extremity. 4/5 power bilateral hip flexors, knee flexors and plan to flexors. Hip extensors, knee extensors and ankle dorsiflexion is 5/5. Diffuse allodynia of back and lower extremities. Negative Tinel's tests and Phalen's test. Assessment & Plan Assessment & Plan (1) Muscle weakness: Comment: 34-year-old female presenting with chronic myalgias and muscle weakness of upper and lower extremities in setting of chronic leukopenia with remote mild elevation in muscle enzymes. Hx of fatigue with background of narcolepsy. On exam she has lower extremity weakness. She is experiencing diffuse allodynia of her back and lower extremities, which may be due to fibromyalgia contributing. We discussed that fibromyalgia is a diagnosis of exclusion. She has subjective upper extremity and lower extremity weakness. She continues to have chronic leukopenia on most recent workup. Rheumatology workup has been negative with normal inflammatory markers, muscle enzymes, disease specific markers in including extended myositis specific panel. At this time I do not have a clear cause for her symptoms. She has a pending EMG study for further evaluation. Code(s): M62.81 - Muscle weakness (generalized) Category: Medical Plan: EMG bilateral upper extremities and lower extremities ordered. Appointment is on March 25. Inflammatory markers ordered Muscle enzymes ordered PT ordered for strengthening of upper extremities, lower extremities and back Return to clinic in 3 months (2) Myalgia: Code(s): M79.10 - Myalgia, unspecified site Category: Medical Plan: See above (3) Joint pain: Comment: She has chronic back pain with localized pain to the spinous process throughout the spine. Paraspinal strain is contributing. She has preserved function. X-rays C-spine, T-spine and L-spine were unremarkable. Code(s): M25.50 - Pain in unspecified joint Category: Medical Qualifiers: Joint pain location: unspecified Qualified Code(s): M25.50 - Pain in unspecified joint Plan: PT ordered for back strengthening, upper and lower extremity strengthening (4) Hemoptysis: Comment: recurrent. TB negative. Code(s): R04.2 - Hemoptysis Category: Medical Plan: I recommend PCP follow-up. (5) Dysuria: Comment: UA and urine culture negative for UTI. Code(s): R30.0 - Dysuria Category: Medical Plan: No further workup is needed at this time. (6) Back pain: Comment: Diffuse allodynia. X-ray C-spine, T-spine and L-spine normal. I am concerned that she has fibromyalgia contributing to her myalgias. Code(s): M54.9 - Dorsalgia, unspecified Category: Medical Qualifiers: Back pain laterality: midline Back pain location: back pain in unspecified location Chronicity: chronic Qualified Code(s): M54.9 - Dorsalgia, unspecified; G89.29 - Other chronic pain Plan: PT ordered (7) Paresthesia of hand, bilateral: Comment: On most days she is experiencing paraesthesia of her hands in the morning. Carpal tunnel syndrome could be contributing. Code(s): R20.2 - Paresthesia of skin Category: Medical Plan: EMG of upper extremities scheduled in February Return to clinic in 3 months Orders: Orders C Reactive Protein Today M25.50 - Pain in unspecified joint, M79.10 - Myalgia, unspecified site, Z79.899 - Other senior care (current) drug therapy Aldolase Today M25.50 - Pain in unspecified joint, M79.10 - Myalgia, unspecified site PT Evaluation and Treatment Today G89.29 - Other chronic pain, M54.9 - Dorsalgia, unspecified, M62.81 - Muscle weakness (generalized), M79.10 - Myalgia, unspecified site Erythrocyte Sedimentation Rate Today M25.50 - Pain in unspecified joint, M79.10 - Myalgia, unspecified site, Z79.899 - Other extermination inspector (current) drug therapy Creatine Kinase Total Today M25.50 - Pain in unspecified joint, M79.10 - Myalgia, unspecified site Coding Level of Care Code Est Pt Level 4 (03027) Complex EM visit Add On G2211 Diagnoses Muscle weakness M62.81 Myalgia M79.10 Arthralgia, unspecified joint M25.50 Joint pain location: unspecified Hemoptysis R04.2 Dysuria R30.0 Chronic midline back pain, unspecified back location M54.9; G89.29 Back pain laterality: midline Back pain location: back pain in unspecified location Chronicity: chronic Paresthesia of hand, bilateral R20.2
[2025-02-09 09:23] VITALS: BP 90/68; PULSE 76; O2SAT 99; BMI 28.5
--- OUTSIDE RECORDS SUMMARY | 2025-02-09 09:40 | XMS_ITS | Referral Summary ---
Author Organization [facility] Address [address] [place] [address] Care Team Providers Care Finisher [employer] Name Role Phone Sisi Hernandez MD Primary [...] [facility] MEDICAID Care Teams Finisher [employer] Relationship Specialty Start Date End Date Sisi Hernandez MD [address] [place] [address] PCP - General Internal Medicine 04/13/24
--- OUTSIDE RECORDS SUMMARY | 2025-02-09 09:40 | XMS_ITS | Clinical Summary ---
Author Organization [facility] Address [address] [place] [address] Care Team Providers Care Music Composition Teacher Name Role Phone Sisi Hernandez MD Primary Care Provider [phone]- [phone] Allergies Active Allergy Reactions Criticality Noted Date [...] ATTENTION IF PAIN PERSISTS 25 tablet 2 Active Active Problems Problem Noted Date Diagnosed Date Right leg pain 09/05/2022 Sinoatrial node dysfunction (CMS/HCC V24, CMS/HC C V28) 09/05/2022 Inappropriate sinus tachycardia ([facility]/HCC V24) Encounters Date Type Department Care Team Description 01/26/2025 3:00 PM EDT Ancillary Procedure [facility] - [address] [place] [address] Encounter for adjustment or management of cardiac device 01/18/2025 11:05 AM EDT Ancillary Procedure [facility] - [address] [place] [address] 12/29/2024 Telephone [facility] - [address] [place] [address] Harley Veliz MD 12/18/2024 Telephone [facility] - [address] [place] [address] Kelley Johnson PA No Show from Last 3 Months Family History Medical [...] Care Team (Late st Contact Info) Description 01/26/2026 3:00 PM EDT Ancillary Procedure [facility] - [facility] [address] [facility] [address] [place] [address] Health Maintenance Due Date Last Done Comments Hepatitis B Vaccines (1 of 3 - 19+ 3-dose series) 11/20/2010 Cervical Cancer Screening: Pap Smear 11/20/2012 Pneumococcal Vaccine: Pediatrics (0 to 5 Years) and At-Risk Patients (6 to 49 Years) (2 of 2 - PCV) 11/23/2017 11/23/2016 COVID-19 Vaccine (3 - Moderna risk series) 11/11/2020 10/14/2020, 09/05/2020 Depression Screening 05/12/2022 HIV Screening 05/12/2022 Hepatitis C Screening 05/12/2022 Social Influencers of Health Screening 05/12/2022 Influenza Vaccine (#1) 2025 4, 05/16/2023, 06/04/2021, Additional history exists DTaP,Tdap,and Td Vaccines (2 - Td or Tdap) 03/10/2028 03/10/2018 HIB Vaccines Aged Out No longer eligi [...] this topic Medical Devices Implanted Type Area Noise Tester Device Identifier Shelf Expiration Date Model / Serial / Lot Medt-Card Advisa Dr De Guzman [id number] Implanted:08/2016 (Quantity not on file) Cardiac Pacemaker [employer] - CARDIAC RHYTH-CRD ADVISA DR DE GUZMAN [id number] / [id number] / Procedures Procedure Name Priority Date/Time Associated Diagnosis Comments CARDIAC DEVICE CHECK- IN CLINIC- MURJ Routine 01/26/2025 3:48 PM EDT Encounter for adjustment or management of cardiac device CARDIAC DEVICE CHECK- REMOTE- MURJ Routine 01/18/2025 11:02 AM EDT from Last 3 Months Results * CARDIAC DEVICE CHECK- IN CLINIC- MURJ (01/26/2025 3:48 PM EDT) Date Time Interrogation Session [id number] CV DEVICE CHECK Implantable Pulse Generator Noise Tester MDT CV DEVICE CHECK Implantable Pulse Generator Type IPG CV DEVICE CHECK Implantable Pulse Generator Model Advisa DR DE GUZMAN [id number] CV DEVICE CHECK Implantable Pulse Generator Serial Number [id number] CV DEVICE CHECK Implantable Pulse Generator Implant Date 20170530 CV DEVICE CHECK Battery Voltage 2.970 CV D EVICE CHECK Battery Status Middle of Service CV DEVICE CHECK Silver Statistic RA Percent Paced 14.80 CV DEVICE CHECK Silver Statistic RV Percent Paced 0.20 CV DEVICE CHECK Atrial Tachy Statistic AT/AF Ericson Percent 0.00 CV DEVICE CHECK Lead Channel Sensing Intrinsic Amplitude 1.100 CV DEVICE CHECK Lead Channel Setting Sensing Sensitivity 0.30 CV DEVICE CHECK Lead Channel Impedance Value 437 CV DEVICE CHECK Lead Channel Pacing Threshold Amplitude 0.750 CV DEVICE CHECK Lead Channel Pacing Threshold Pulse Width 0.4 CV DEVICE CHECK Lead Channel RA Pacing Threshold Date 2025-01-26 CV DEVICE CHECK Lead Channel Setting Pacing Amplitude 1.500 CV DEVICE CHECK Lead Channel Setting Pacing Pulse Width 0.4 CV DEVICE CHECK Lead Channel Sensing Intrinsic Amplitude 5.500 CV DEVICE CHECK Lead Channel Setting Sensing Sensitivity 2.80 CV DEVICE CHECK Lead Channel Impedance Value 475 CV DEVICE CHECK Lead Channel Pacing Threshold Amplitude 0.630 CV DEVICE CHECK Lead Channel Pacing Threshold Pulse Width 0.4 CV DEVICE CHECK Lead Channel RV Pacing Threshold Date 2025-01-23 CV DEVICE CHECK Lead Channel Setting Pacing [...] Maximum Sensor Rate 130 CV DEVICE CHECK Zone Setting Type Category AT/AF CV DEVICE CHECK Therapies All Rx Off CV DEVICE CHECK Zone Setting Status Monitor CV DEVICE CHECK Zone ID 2 CV DEVICE CHECK Zone Setting Type Category VT CV DEVICE CHECK Zone Setting Status Monitor CV DEVICE CHECK Zone ID 5 CV DEVICE CHECK Date of Service 2025-01-26 CV DEVICE CHECK Anatomical Region Laterality Modality Device Interroga tion 01/26/2025 Impressions 02/01/2025 5:45 AM EDT Normal In-Office: No Events * Normal Device Function * Alerts or events: None * Battery: MOS, 3.5 years (2.5 - 4 years) * Sensing, impedance and thresholds reviewed and tested * Presenting Rhythm: -VS 80s * Heart Rate Histograms reviewed * Pacing and Detection Parameters were evaluated Narrative Procedure Note Harley Veliz MD - 02/01/2025 IMPRESSION: Normal In-Office: No Events * Normal Device Function * Alerts or events: None * Battery: MOS, 3.5 years (2.5 - 4 years) * Sensing, impedance and thresholds reviewed and tested * Presenting Rhythm: -VS 80s * Heart Rate Histograms reviewed * Pacing and Detection Parameters were evaluated us Order Referral Cardiovascular CV IMPLANTABLE CAR DIAC DEVICE PROCEDURES Final Result * Cardiac device check - Remote- MURJ (01/18/2025 11:02 AM EDT) Date Time Interrogation Session [id number] CV DEVICE CHECK Type Interrogation Session Remote CV DEVICE CHECK Implantable Pulse Generator Noise Tester MDT CV DEVICE CHECK Implantable Pulse Generator Type IPG CV DEVICE CHECK Implantable Pulse Generator Model Advisa DR DE GUZMAN [id number] CV DEVICE CHECK Implantable Pulse Generator Serial Number [id number] CV DEVICE CHECK Implantable Pulse Generator Implant Date 20170530 CV DEVICE CHECK Battery Remaining Longevity 42.0 CV DEVICE CHECK Battery Voltage 2.970 CV D EVICE CHECK Battery [employer] Trigger 2.830 CV DEVICE CHECK Battery Status Middle of Service CV DEVICE CHECK Silver Statistic RA Percent Paced 15.36 CV DEVICE CHECK Silver Statistic RV Percent Paced 0.25 CV DEVICE CHECK Atrial Tachy Statistic AT/AF [place] Percent 0.00 CV DEVICE CHECK Lead Channel Sensing Intrinsic Amplitude 0.875 CV DEVICE CHECK Lead Channel Setting Sensing Sensitivity 0.30 CV DEVICE CHECK Lead Channel Impedance Value 437 CV DEVICE CHECK Lead Channel Pacing Threshold Amplitude 0.625 CV DEVICE CHECK Lead Channel Pacing Threshold Pulse Width 0.4 CV DEVICE CHECK Lead Channel RA Pacing Threshold Date 2024-12-29 CV DEVICE CHECK Lead Channel Setting Pacing Amplitude 1.500 CV DEVICE CHECK Lead Channel Setting Pacing Pulse Width 0.4 CV DEVICE CHECK Lead Channel Sensing Intrinsic Amplitude 6.125 CV DEVICE CHECK Lead Channel Setting Sensing Sensitivity 2.80 CV DEVICE CHECK Lead Channel Impedance Value 494 CV DEVICE CHECK Lead Channel Pacing Threshold Amplitude 0.750 CV DEVICE CHECK Lead Channel Pacing Threshold Pulse Width 0.4 CV DEVICE CHECK Lead Channel RV Pacing Threshold Date 2024-12-28 CV DEVICE CHECK Lead Channel Setting Pacing [...] 6 CV DEVICE CHECK Date of Service 2025-01-18 CV DEVICE CHECK Anatomical Region Laterality Modality Device Interroga tion 12/29/2024 3:48 PM EDT Impressions 01/18/2025 10:50 AM EDT Normal Remote: No Events * Normal Device Function * Alerts or events: None * Battery: OK, 3.50 yrs * Sensing, impedance and thresholds reviewed * Programmed parameters reviewed * Presenting rhythm reviewed * Heart Rate Histograms reviewed * No significant changes noted Narrative Procedure Note Harley Veliz MD - 01/18/2025 IMPRESSION: Normal Remote: No Events * Normal Device Function * Alerts or events: None * Battery: OK, 3.50 yrs * Sensing, impedance and thresholds reviewed * Programmed parameters reviewed * Presenting rhythm reviewed * Heart Rate Histograms reviewed * No significant changes noted Harley Veliz MD CV IMPLANTABLE CARDIAC DEV ICE PROCEDURES Final Result from Last 3 Months Insurance [employer] [place] [employer] Care Teams Music Composition Teacher Relationship Specialty Start Date End Date Sisi Hernandez MD [address] [place] [address] PCP - General 01/20/13
== END 2025-02-09 09:48 | disposition home or self-care (01) ==
LOC: HO.RHES 09:15
PROVIDERS: PCP Internal Medicine; Visit Provider Internal Medicine Rheumatology
DX: M79.10 Myalgia, unspecified site (principal); M25.50 Pain in unspecified joint; M54.9 Dorsalgia, unspecified; G89.29 Other chronic pain; R04.2 Hemoptysis; R30.0 Dysuria; R20.2 Paresthesia of skin
CPT/HCPCS: 99214; G2211

== ENCOUNTER 2025-02-09 09:57 | Outpatient (REF) | payer OTHER, SELFPAY | END 2025-02-09 09:58 | disposition home or self-care (01) | LOC: HO.HKASLDS 09:57 | PROVIDERS: Internal Medicine Rheumatology; Visit Provider Internal Medicine Nephrology | DX: M79.10 Myalgia, unspecified site (principal); Z79.899 Other long term (current) drug therapy; M25.50 Pain in unspecified joint | CPT/HCPCS: 36415; 82085; 82550; 85652; 86140; 99212 ==

== ENCOUNTER 2025-03-25 14:29 | Outpatient (REF) | payer OTHER, SELFPAY ==
--- NOTE | 2025-03-25 14:31 | EMG_ITS ---
Chief complaint: Weakness upper extremities worse than lowers, difficulty raising both arms up. History of pacemaker. History of medullablastoma, status post chemo and radiation. Reason for referral: Evaluate for myopathy Referred by: Dr. Nnio Procedure done: Bilateral upper and lower extremity NCS/right upper and lower extremity EMG Precautions and/or limitations: Pacemaker Anxiety over needles The limb temperature was monitored continuously and remained between 32-36 degrees C during the performance of the NCS. Nerve Conduction Studies Anti Sensory Summary Table ?Stim Site NR Onset (ms) Norm Onset (ms) Peak (ms) Norm Peak (ms) O-P Amp (?V) Norm O-P Amp Site1 Site2 Delta-0 (ms) Dist (cm) Mendel (m/s) Norm Mendel (m/s) Left Median Anti Sensory (2nd Digit) Wrist ? 2.7 3.2 <3.6 67.9 >10 Wrist 2nd Digit 2.7 14.0 52 Right Median Anti Sensory (2nd Digit) Wrist ? 2.1 3.2 <3.6 49.0 >10 Wrist 2nd Digit 2.1 14.0 67 Left Sural Anti Sensory (Lat Mall) Calf ? 2.7 3.3 <4.0 17.4 >5.0 Calf Lat Mall 2.7 14.0 52 Right Sural Anti Sensory (Lat Mall) Calf ? 2.8 3.5 <4.0 14.3 >5.0 Calf Lat Mall 2.8 14.0 50 Left Ulnar Anti Sensory (5th Digit) Wrist ? 2.3 3.1 <3.7 69.4 >15.0 Wrist 5th Digit 2.3 14.0 61 Right Ulnar Anti Sensory (5th Digit) Wrist ? 2.3 3.1 <3.7 34.9 >15.0 Wrist 5th Digit 2.3 14.0 61 Motor Summary Table ?Stim Site NR Onset (ms) Norm Onset (ms) O-P Amp (mV) Norm O-P Amp iAmp (mV) Amp (1st) (%) Site1 Site2 Delta-0 (ms) Dist (cm) Mendel (m/s) Norm Mendel (m/s) Left Median Motor (Abd Poll Brev) Wrist ? 3.7 <3.9 12.6 >4.5 15.5 100.0 Elbow Wrist 3.9 19.0 49 >45 Elbow ? 7.6 11.5 14.3 91.3 Right Median Motor (Abd Poll Brev) Wrist ? 3.4 <3.9 16.4 >4.5 19.6 100.0 Elbow Wrist 3.6 20.5 57 >45 Elbow ? 7.0 13.6 16.4 82.9 Right Peroneal Motor (Ext Dig Brev) Ankle ? 3.9 <4.0 9.2 >2.5 11.4 100.0 Ankle Ext Dig Brev 3.9 0.0 B Fib ? 9.8 8.7 10.8 94.6 B Fib Ankle 5.9 29.0 49 >40 Poplt ? 10.7 8.5 10.4 92.4 Poplt B Fib 0.9 5.0 56 >40 Left Tibial Motor (Abd Lux Brev) Ankle ? 4.1 <5 16.0 >2.5 22.4 100.0 Ankle Abd Lux Brev 4.1 0.0 Knee ? 10.5 9.2 13.2 57.5 Knee Ankle 6.4 35.0 55 >40 Right Tibial Motor (Abd Lux Brev) Ankle ? 3.9 <5 18.7 >2.5 27.0 100.0 Ankle Abd Lux Brev 3.9 0.0 Knee ? 11.5 6.4 9.6 34.2 Knee Ankle 7.6 37.0 49 >40 Left Ulnar Motor (Abd Dig Minimi) Wrist ? 3.0 <3.0 13.9 >5 18.2 100.0 B Elbow Wrist 3.3 16.0 48 >45 B Elbow ? 6.3 11.8 15.5 84.9 A Elbow B Elbow 1.7 10.0 59 >45 A Elbow ? 8.0 11.5 15.1 82.7 Right Ulnar Motor (Abd Dig Minimi) Wrist ? 2.9 <3.0 12.1 >5 16.2 100.0 B Elbow Wrist 2.8 16.5 59 >45 B Elbow ? 5.7 11.3 15.0 93.4 A Elbow B Elbow 1.6 10.0 63 >45 A Elbow ? 7.3 11.1 14.0 91.7 EMG ?Side Muscle Nerve Root Ins Act Fibs Psw Amp Dur Poly Recrt Int Pat Comment Right 1stDorInt Ulnar C8-T1 Nml Nml Nml Nml Nml 0 Nml Complete Right FlexCarRad Median C6-7 Nml Nml Nml Nml Nml 0 Nml Complete Right FlexCarpiUln Ulnar C8,T1 Nml Nml Nml Nml Nml 0 Nml Complete Right Biceps Musculocut C5-6 Nml Nml Nml Nml Nml 0 Nml Complete Right Triceps Radial C6-7-8 Nml Nml Nml Nml Nml 0 Nml Complete Right Deltoid Axillary C5-6 Nml Nml Nml Nml Nml 0 Nml Complete Right AbdHallucis MedPlantar S1-2 Nml Nml Nml Nml Nml 0 Nml Complete Right AntTibialis Dp Br Peron L4-5 Nml Nml Nml Nml Nml 0 Nml Complete Right PostTibialis Tibial L5, S1 Nml Nml Nml Nml Nml 0 Nml Complete Right MedGastroc Tibial S1-2 Nml Nml Nml Nml Nml 0 Nml Complete Right VastusMed Femoral L2-4 Nml Nml Nml Nml Nml 0 Nml Complete FINDINGS: All motor and sensory nerves tested showed normal latencies, amplitudes and conduction velocities. Concentric needle EMG was performed in selected muscles of the right upper and lower extremities. Study did not reveal signs of electric abnormalities as shown in the table above. No myopathic looking units. IMPRESSION: 1. This is a normal study. 2. There is no electrodiagnostic evidence for median neuropathy, ulnar neuropathy, brachial plexopathy, cervical radiculopathy, peroneal neuropathy, tibial neuropathy, lumbosacral plexopathy, lumbar radiculopathy, or peripheral neuropathy. 3. There is no evidence for myopathy. Thank you for your kind referral. Briana Daniel MD, SERGE Board Certified, [place] Board [employer] Medicine and Rehabilitation (ABPMR) Board Certified, [place] Board of Electrodiagnostic Medicine (ABEM) CODIN 36511 x2 MTDD
--- OUTSIDE RECORDS SUMMARY | 2025-03-25 15:10 | XMS_ITS | Clinical Summary ---
Author Organization [facility] Address [address] [place] [address] Care Team Providers Care Web Application Tester Name Role Phone Sisi Hernandez MD Primary Care Provider [phone]- [phone] Allergies Active Allergy Reactions Criticality Noted Date [...] mouth every 6 hours as needed. Active lisdexamfetami ne dimesylate (VYVANSE ORAL) Take by mouth. Active nitroglycerin (NITROSTAT) 0.[address] 1 TABLET UNDER TONGUE EVERY 5 MIN NEEDED FOR CHEST PAIN, MAX OF 3 DOSES/15 MIN CALL 911/SEEK MEDICAL ATTENTION IF PAIN PERSISTS 25 tablet 2 09/17/19 25 Active verapamil SR (CALAN-SR) 240 mg CR tablet TAKE 1 TABLET BY MOUTH EVERY DAY. 90 tablet 1 03/24/20 25 Active verapamil SR (CALAN-SR) 240 mg CR tablet Take 1 Tablet by mouth daily. 03/17/20 24 025 Discontinued Active Problems Problem Noted Date Diagnosed Date Right leg pain 09/05/2022 Sinoatrial node dysfunction (CMS/HCC V24, CMS/HC C V28) 09/05/2022 Inappropriate sinus tachycardia (CMS/HCC V24) Encounters Date Type Department Care Team Description 01/26/2025 3:00 PM EDT Ancillary Procedure [facility] - [address] [place] [address] Encounter for adjustment or management of cardiac device 01/18/2025 11:05 AM EDT Ancillary Procedure [facility] - [address] [place] [address] 12/29/2024 Telephone [facility] - [address] [place] [address] Harley Veliz MD from Last 3 Months Family History Medical [...] Description 01/26/2026 3:00 PM EDT Ancillary Procedure [facility] [address] [facility] [address] [place] [address] Health Maintenance Due Date Last Done Comments Hepatitis B Vaccines (1 of 3 - 19+ 3-dose series) 11/20/2010 Cervical Cancer Screening: Pap Smear 11/20/2012 Pneumococcal Vaccine: Pediatrics (0 to 5 Years) and At-Risk Patients (6 to 49 Years) (2 of 2 - PCV) 11/23/2017 11/23/2016 COVID-19 Vaccine (3 - Moderna risk series) 11/11/2020 10/14/2020, 09/05/2020 HIV Screening 05/12/2022 Hepatitis C Screening 05/12/2022 Social Influencers of Health Screening 05/12/2022 Depression Screening 07/29/2024 Influenza Vaccine (#1) 2025 4, 05/16/2023, 06/04/2021, [...] this topic Medical Devices Implanted Type Area Patient Escort Device Identifier Shelf Expiration Date Model / Serial / Lot Medt-Card Advisa Dr De Guzman [id number] Implanted:08/2016 (Quantity not on file) Cardiac Pacemaker [employer] - CARDIAC RHYTH-CRDM ADVISA MRI [id number] / [id number] / Procedures Procedure Name Priority Date/Time Associated Diagnosis Comments CARDIAC DEVICE CHECK- IN CLINIC- MURJ Routine 01/26/2025 3:48 PM EDT Encounter for adjustment or management of cardiac device CARDIAC DEVICE CHECK- REMOTE- MURJ Routine 01/18/2025 11:02 AM EDT from Last 3 Months Results * CARDIAC DEVICE CHECK- IN CLINIC- MURJ (01/26/2025 3:48 PM EDT) Date Time Interrogation Session [id number] CV DEVICE CHECK Implantable Pulse Generator Patient Escort MDT CV DEVICE CHECK Implantable Pulse Generator Type IPG CV DEVICE CHECK Implantable Pulse Generator Model Advisa DR DE GUZMAN [id number] CV DEVICE CHECK Implantable Pulse Generator Serial Number [id number] CV DEVICE CHECK Implantable Pulse Generator Implant Date 20170530 CV DEVICE CHECK Battery Voltage 2.970 CV D EVICE CHECK Battery Status Middle of Service CV DEVICE CHECK Silver Statistic RA Percent Paced 14.80 CV DEVICE CHECK Silver Statistic RV Percent Paced 0.20 CV DEVICE CHECK Atrial Tachy Statistic AT/AF [place] Percent 0.00 CV DEVICE CHECK Lead Channel [...] 11:02 AM EDT) Date Time Interrogation Session [id number] CV DEVICE CHECK Type Interrogation Session Remote CV DEVICE CHECK Implantable Pulse Generator Patient Escort MDT CV DEVICE CHECK Implantable Pulse Generator Type IPG CV DEVICE CHECK Implantable Pulse Generator Model Advisa DR DE GUZMAN [id number] CV DEVICE CHECK Implantable Pulse Generator Serial Number [id number] CV DEVICE CHECK Implantable Pulse Generator Implant Date 20170530 CV DEVICE CHECK Battery Remaining Longevity 42.0 CV DEVICE CHECK Battery Voltage 2.970 CV D EVICE CHECK Battery ALMOND SORTER Trigger 2.830 CV DEVICE CHECK Battery Status Middle of Service CV DEVICE CHECK Silver Statistic RA Percent Paced 15.36 CV DEVICE CHECK Silver Statistic RV Percent Paced 0.25 CV DEVICE CHECK Atrial Tachy Statistic AT/AF [place] Percent 0.00 CV DEVICE CHECK Lead Channel [...] [employer] [place] [employer] Care Teams Web Application Tester Relationship Specialty Start Date End Date Sisi Hernandez MD [address] [place] [address] PCP - General 01/20/13
--- OUTSIDE RECORDS SUMMARY | 2025-03-25 15:10 | XMS_ITS | Clinical Summary ---
Author Organization [facility] Address [address] [place], [place] [address] Phone Care Team Providers Care Android Ui Developer Name Role Phone Unknown, Unknown Primary Care Provider Trell eng Allergies Active Allergy Reactions Criticality Noted Date Comments Cefoxitin 05/09/2016 Other 05/09/2016 Fresh fruit Medications fexofenadine (SALOMÓN) 60 MG tablet Take 60 mg by mouth daily. Active docusate sodium (COLACE) 100 MG capsule Take 100 mg by mouth daily as needed for constipatio n. Active gabapentin (NEURONTIN) 300 MG capsule Take 300 mg by mouth daily. Active warfarin (COUMADIN) 5 MG tablet Take 5 mg by mouth daily. Active metoprolol succinate (TOPROL-XL) 50 MG 24 hr tablet Take 50 mg by mouth daily. Active enoxaparin (LOVENOX) 100 mg/mL Syrg subcutaneous syringe Inject 1 mg/kg under the skin daily. Active POLYETHYLENE GLYCOL 3350 (MIRALAX ORAL) Take by mouth daily as needed. Active FLUDROCORTISONE ACETATE (FLUDROCORTISONE ORAL) Take by mouth. Active Social History Tobacco Use Types Packs/Day Years Used Date Smoking Tobacco: Never Education Answer Date Recorded Are you interested in more education? Not on grupo e 12/09/2022 Are you concerned about learning? Not on file 12/09/2022 No 12/09/2022 No 12/09/2022 Digital Access Answer Date Recorded No 12/21/2022 No 12/21/2022 No 12/21/2022 Reliable internet access at home? Not on file 12/21/2022 Device with a working camera? Not on file Comments Unknown Sex and Gender Information Value Date Recorded Sex Assigned at Not on file Legal Sex Female 5:24 PM EST Gender Identity Not on file Sexual Orientation Not on file Last Filed Vital Signs Vital Sign Reading Time Taken Comments Blood Pressure 107/68 05/09/2016 9:24 AM EDT Pulse 80 05/09/2016 9:24 AM EDT Temperature 37.2 C (99 F) 12/30/2012 10:17 AM EDT Respiratory Rate 16 12/30/2012 10:17 AM EDT Oxygen Saturation - - Inhaled Oxygen Concentration - - Weight 55.3 kg (122 lb) 05/09/2016 9:24 AM EDT Height 157.5 cm (5' 2.01 ) 12/30/2012 10:17 AM E DT Body Mass Index 22.31 12/30/2012 10:17 AM EDT Plan of Treatment Health Maintenance Due Date Last Done Comments SMOKING Hx and SMOKELESS TOBACCO SCREENING 11/20/2004 HEPATITIS C SCREENING 11/20/2009 HIV ONE-TIME SCREENING (18-6 5 YEARS) 11/20/2009 PAP SMEAR 11/20/2012 DEPRESSION SCREENING 05/09/2017 05/09/2016 COVID-19 VACCINE (3 - 2023-2 5 season) 2024 10/14/2020, 09/05/2020 Adult Td,Tdap Booster 03/10/2028 03/10/2018 HEPATITIS A VACCINES Aged Out No long er eligible based on patient's age to complete this topic HIB VACCINES Aged Out No longer eligi ble based on patient's age to complete this topic MENINGOCOCCAL VACCINES (ACWY) Aged Out No longer eligible based on patient's age to complete this topic MENINGOCOCCAL VACCINES (B) Aged Out N o longer eligible based on patient's age to complete this topic PNEUMOCOCCAL VACCINES (0-49 years) Aged Out No longer eligible b ased on patient's age to complete this topic Medical Devices Not on file Insurance [facility] ONE CARE MEDICARE REPLACEMENT CARE MEDICARE REPLACEMENT CARE MEDICARE REPLACEMENT CARE MEDICARE REPLACEMENT CARE MEDICARE REPLACEMENT CARE MEDICARE REPLACEMENT CARE MEDICARE REPLACEMENT MEDICARE REPLACEMENT MEDICARE REPLACEMENT Care Teams Android Ui Developer Relationship Specialty Start Date End Date Unknown, Unknown, PCP - General 12/25/19 Additional Source Comments The information contained in this document represents components of the legal health record. It is not the complete legal health record.[facility]
--- OUTSIDE RECORDS SUMMARY | 2025-03-25 15:10 | XMS_ITS | Clinical Summary ---
Author Organization [facility] Address [address] [place] [address] Care Team Providers Care Testing Specialist Name Role Phone Sisi Hernandez MD Primary Care Provider [phone] Allergies Active Allergy Reactions Criticality Noted Date [...] Drivers of Health Sharron ual Screening 07/29/2024 Influenza Vaccine (#1) 2025 , 05/16/2023, 06/04/2021, Additional history exists DTaP,Tdap,and Td Vaccines (2 - Td or Tdap) 03/10/2028 03/10/2018 RSV Vaccine (60+ years old a nd patients) (1 - 1-dose 75+ series) 11/20/2066 Insurance Care Teams Testing Specialist Relationship Specialty Start Date End Date Sisi Hernandez MD [address] [place] [address] PCP - General Internal Medicine 04/13/24
== END 2025-03-25 14:30 | disposition home or self-care (01) ==
LOC: HO.NEURO 14:29
PROVIDERS: PCP Internal Medicine; Visit Provider Internal Medicine Rheumatology
DX: M79.18 Myalgia, other site (principal); Z92.3 Personal history of irradiation; Z92.21 Personal history of antineoplastic chemotherapy; Z95.0 Presence of cardiac pacemaker; Z85.841 Personal history of malignant neoplasm of brain
CPT/HCPCS: 95886; 95913

== ENCOUNTER → 2025-03-25 14:31 | Outpatient (BNV) | payer OTHER, SELFPAY | PROVIDERS: PCP Internal Medicine; Visit Provider Physical Medicine & Rehabilitation | DX: R53.1 Weakness (principal) | CPT/HCPCS: 95886; 95913 ==

== ENCOUNTER 2025-04-08 15:05 | Outpatient (REF) | payer OTHER, SELFPAY ==
[2025-04-08 15:30] LABS: MANUAL DIFF FLAG NO
[2025-04-08 17:14] LABS: Hematocrit 38.6 % (37.0-47.0); Hemoglobin 13.1 g/dl (12.0-16.0); Imm Gran Abs Auto 0.01 X10*3/uL (0.00-0.03); Imm Gran Pct Auto 0.3 % (0.0-0.4); Lymphocytes Absolute Auto 1.1 X10*3/uL (1.2-4.9); Mean Corpuscular HGB Conc 33.9 g/dl (31.0-35.0); Mean Corpuscular Hemoglobin 28.2 pg (27.0-33.0); Mean Corpuscular Volume 83.2 fL (80.0-98.0); NRBC Abs Auto 0.000 X10*3/uL (0.0-0.012); NRBC Pct Auto 0.0 /100WBC (0.0-0.2); Platelet Count 195 X10*3/uL (160-400); Red Blood Count 4.64 X10*6/uL (4.20-5.50); White Blood Count 3.7 X10*3/uL (4.8-10.8)
[2025-04-08 18:01] LABS: Alanine Aminotransferase 20 U/L (0-31); Aspartate Amino Transferase 25 U/L (5-31); Estimated Glomerular Filt Rate > 60
--- OUTSIDE RECORDS SUMMARY | 2025-04-08 18:33 | XMS_ITS | Clinical Summary ---
Author Organization [facility] Address [address] [place], [place] [id number] Phone Care Team Providers Care Junior Electrical Engineer Name Role Phone Unknown, Unknown Primary Care [...] topic Medical Devices Not on file Insurance [facility] ONE CARE MEDICARE REPLACEMENT CARE MEDICARE REPLACEMENT CARE MEDICARE REPLACEMENT CARE MEDICARE REPLACEMENT CARE MEDICARE REPLACEMENT CARE MEDICARE REPLACEMENT CARE MEDICARE REPLACEMENT MEDICARE REPLACEMENT MEDICARE REPLACEMENT Care Teams Junior Electrical Engineer Relationship Specialty Start Date End Date Unknown, Unknown, PCP - General 12/25/19 Additional Source Comments The information contained in this document represents components of the legal health record. It is not the complete legal health record.[facility]
--- OUTSIDE RECORDS SUMMARY | 2025-04-08 18:33 | XMS_ITS | Clinical Summary ---
Author Organization [facility] Address [address] [place] [address] Care Team Providers Care Matte Cutter Name Role Phone Sisi Hernandez MD [...] (2 of 2 - PCV) 11/23/2017 11/23/2016 Alcohol/Substance Use Screening 07/29/2024 Depression Screening and Follow-Up 07/29/2024 Social Drivers of Health Sharron ual Screening 07/29/2024 COVID-19 Vaccine (3 - 2024-2 6 season) 2025 10/14/2020, 09/05/2020 Influenza Vaccine (#1) 2025 , 05/16/2023, 06/04/2021, Additional history exists DTaP,Tdap,and Td Vaccines (2 - Td or Tdap) 03/10/2028 03/10/2018 RSV Vaccine (60+ years old a nd patients) (1 - 1-dose 75+ series) 11/20/2066 Insurance Care Teams Matte Cutter Relationship Specialty Start Date End Date Sisi Hernandez MD [address] [place] [address] PCP - General Internal Medicine 04/13/24
== END 2025-04-08 15:06 | disposition home or self-care (01) ==
LOC: HO.LAB 15:05
PROVIDERS: PCP Internal Medicine; Visit Provider Internal Medicine Rheumatology
DX: D72.819 Decreased white blood cell count, unspecified (principal); M79.10 Myalgia, unspecified site; Z79.899 Other long term (current) drug therapy
CPT/HCPCS: 36415; 82085; 82550; 82565; 84450; 84460; 85025; 85652; 86140

== ENCOUNTER 2025-04-12 15:19 | Outpatient (AMB) | payer OTHER, SELFPAY ==
--- NOTE | 2025-04-12 15:27 | A.OFFVIS_ITS ---
Vital Signs 04/12/25 15:31 Height 5 ft 3 in Weight 161 lb BMI 28.5 BP 103/71 Blood Pressure Location Lt brachial Position Sitting Pulse 71 Intake Visit Reasons: f/u creon Intake Note: Ekta presents in the office as a follow up to starting creon. CC: She wants to know about the lab results why they are up and down and is this a side effect as well to the creon? Weakening on the bones could also be a side effect as well. States that she is having soreness thrughout her body and when she stopped she realized it got better. Feet to hr fingers everything is sore to her. Allergies cefoxitin (CEFOXITIN) Allergy (Severe, Verified 04/12/25 15:30) Anaphylaxis sertraline Allergy (Severe, Verified 04/12/25 15:30) itching vancomycin (VANCOMYCIN) Allergy (Severe, Verified 04/12/25 15:30) Anaphylaxis HPI HPI f/u creon: Details: 34 y/o female with POT syndrome, pacemaker, uterine fibroid and rectocele, meduloblastoma who is being called for f/u RECAP-initially saw [facility] pain in her stomach, when she ate- If she goes 3-4 hours without food she gets abdominal pain, often RUQ She feels like food sits in her stomach it just does not digest. Times as causes her nausea. Carafate 1 gm tid Previously treated with Rifaximin for SIBO- she now takes it intermittently, somewhat p.r.n. She was seeing Dr. Bello, as well as Dr. Leigh- Has always has GI problems, since she was a kid- The pain she has now is way different. Mostly epigastric, bloating She has had a pacemaker for 2 years sleep variable dx with narcolepsy, on armodafinil maybe affecting her appetite negative genetic tests for NF and colorectal d/o TESTS: EGD/colonoscopy 2016 -[facility]02/2020[facility] MRI A/P: no inflammation, stool burden noted duplex: mild raised velocities she had MR defecography with fibroid, rectocele repeat Colonoscopy/EGD 10/2021; Endoscopy Findings: erosive gastritis possible reta Colonoscopy Findings: internal hemorrhoids abnormal appearing TI Path: A. Duodenum, biopsy: Duodenal mucosa with mildly increased intraepithelial lymphocytes and preserved villous architecture; negative for T. whipplei. See comment. B. Stomach, biopsy: Oxyntic mucosa with mild chronic inactive inflammation; no Helicobacter organisms seen. C. Esophagus, random, biopsy: Active esophagitis (maximum eosinophil count focally up to 19 per high powered field). D. Terminal ileum, biopsy: Terminal ileal mucosa within normal limits. E. Colon, random, biopsy: Colonic mucosa within normal limits. LABS: neg celiac, b12, nml, pernicious anemia ab--neg, fat oren vits were nml, RAST -- pos for milk, hazelnut, wheat, egg CXR--nml Ba swallow-tablet passed easily, but sub optimal study as couldn drink the barium, reflux EGD 10/03/22 schatzki ring mild esophagitis lax LES dilation to 16 mm--no tears I referred her to pulm for hemoptysis w/u for sarcoid due to high TAMEKA--negative, but v high IgE and put on xolair for asthma sx she also had a qn of PTE, its is uncertain --awaiting rept CTPE she had a hysterectomy, and had rectocele repaired 07/31/22 I offered her a second opinion, ongoing constipation, ?benefit from subtotal colectomy she tried rifaximin but didn't help her sx she was unable to tolerate motegrity, amitiza, linaclotide, lactulose - sutab trial --trulance worked best but her body stopped responding to it MRI pancreas was unremarkable INTERIM: she feels better without creon she feels she still has issues with constipation and pushing she had EMG for Raised CK but normal I gave her vit b2 for th odor sensation but it made her more sweaty she is going back to motegrity to see if better, she developed tolerance to trulance EXAM: GENERAL: The patient is well developed and nontoxic. VITAL SIGNS:see workflow HEENT: Nonicteric sclerae, PERRLA, EOMI. Oropharynx clear. Moist mucous membranes. Conjunctivae appear well perfused. No thyroid mass. CHEST: Chest wall is nontender. HEART: Regular rate and rhythm without murmurs. LUNGS: Clear to auscultation bilaterally. ABDOMEN: Soft, positive bowel sounds, nontender, no organomegaly.no flank tenderness SKIN: No rash, no excessive bruising, petechiae, or purpura. NEUROLOGIC: Cranial nerves II-XII intact without motor/sensory deficit. Psych: normal affect Assessments 1. 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, may have gastroparesis as well , now with high aldolase and CPK with muscle tenderness --repeat aldolase was negative --seeing rheum now PLAN: 1/ vit D replacement 2/ change creon to zenpep 3/ if motegrity not working then can try trulance again every few days 4/ check microplastic PFSH Medical History Myalgia Environmental allergies Asthma Pulmonary emboli Pleuritic chest pain Abnormal serum angiotensin-converting enzyme level Cardiac arrhythmia Pulmonary nodules Dyspnea History of DVT (deep vein thrombosis) History of chemotherapy History of palpitations Hx of supraventricular tachycardia Narcolepsy Seasonal allergies Anxiety and depression Pacemaker Pernicious anemia B12 deficiency Active asthma POTS (postural orthostatic tachycardia syndrome) H/O brain tumor Surgical History History of repair of rectocele Hx of hysterectomy History of cardiac radiofrequency ablation (RFA) Hx of craniotomy H/O colonoscopy H/O esophagogastroduodenoscopy Hx of appendectomy Family History Mother Heart problem Maternal Grandfather Heart problem Paternal Grandmother Dementia Social History Household Members: None Are you a primary palliative care nurse to a significant other at home: No Do you presently have visiting nurse or other home services: Yes ([employer] 4.5 week) Alcohol intake: current Alcohol intake frequency: a few times a month Patient Tobacco Use Status: Never used Tobacco Physical Exam Vital Signs: Last Vital Signs Pulse 71 04/12/25 15:31 BP 103/71 04/12/25 15:31 BMI result Body Mass Index 28.5 Assessment & Plan Assessment & Plan (1) Encounter for screening for disorder due to exposure to contaminants: Code(s): Z13.88 - Encounter for screening for disorder due to exposure to contaminants Category: Medical Plan: as above Orders: Orders Other Ref Test - [facility] Z13.88 - Encounter for screening for disorder due to exposure to contaminants Medications: New zfzwvm-yzmhsryi-ogdtlew 10,000-32,000 -42,000 unit (Zenpep) administer with meals and/or snacks 2 caps PO TID 42 caps 1RF cholecalciferol (vitamin D3) 50 mcg PO DAILY 90 caps 2RF Discontinued aociyl-jsbsekwa-rjedshb 12,000-38,000 -60,000 unit (Creon) administer with meals and/or snacks Discontinued Reason: Doctor's Order 3 caps PO TID 300 caps 1RF riboflavin (vitamin B2) Discontinued Reason: Duplicate 100 mg PO BID 60 tabs 0RF Coding Level of Care Code Est Pt Level 3 (63495) Diagnoses Encounter for screening for disorder due to exposure to contaminants Z13.88
[2025-04-12 15:31] VITALS: BP 103/71; PULSE 71; BMI 28.5
--- OUTSIDE RECORDS SUMMARY | 2025-04-12 20:45 | XMS_ITS | Clinical Summary ---
Author Organization [facility] Address [address] [place], [place] [id number] Phone Care Team Providers Care Marklogic Developer Name Role Phone Unknown, Unknown Primary [...] PAP SMEAR 11/20/2012 DEPRESSION SCREENING 05/09/2017 05/09/2016 INFLUENZA VACCINE (#1) 2025 , 05/23/2018 COVID-19 VACCINE (3 - 2024-2 6 season) 2025 10/14/2020, 09/05/2020 Adult Td,Tdap Booster 03/10/2028 03/10/2018 [...] topic Medical Devices Not on file Insurance CARE MEDICARE REPLACEMENT CARE MEDICARE REPLACEMENT MEDICARE REPLACEMENT MEDICARE REPLACEMENT MEDICARE [place]PLAC[place] [address] [place] [address] CARE MEDICARE REPLAC[address] [place] [address] CARE MEDICARE REPLACEMENT Care Teams Marklogic Developer Relationship Specialty Start Date End Date Unknown, Unknown, PCP - General 12/25/19 Additional Source Comments The information contained in this document represents components of the legal health record. It is not the complete legal health record.[facility]
--- OUTSIDE RECORDS SUMMARY | 2025-04-12 20:46 | XMS_ITS | Clinical Summary ---
Author Organization [facility] Address [address] [place] [address] Care Team Providers Care Framework Developer Name Role Phone Sisi Hernandez MD Primary Care Provider [phone] Allergies Active Allergy Reactions Criticality Noted Date [...] Description 01/26/2025 3:00 PM EDT Ancillary Procedure [facility] - [address] [place] [address] Encounter for adjustment or management of cardiac device 01/18/2025 11:05 AM EDT Ancillary Procedure [facility] [address] [place] [address] from Last 3 Months Family History Medical [...] Description 01/26/2026 3:00 PM EDT Ancillary Procedure [facility] - [facility] [address] [facility] [address] [place] [address] Health Maintenance Due Date Last [...] this topic Medical Devices Implanted Type Area Test Driller Device Identifier Shelf Expiration Date Model / Serial / Lot Medt-Card Advisa Dr De Guzman [id number] Implanted:08/2016 (Quantity not on file) Cardiac Pacemaker [employer] - CARDIAC RHYTH-CRDM ADVISA DR DE GUZMAN [id number] / [id number] / Procedures Procedure Name Priority Date/Time Associated Diagnosis Comments CARDIAC DEVICE CHECK- IN CLINIC- MURJ Routine 01/26/2025 3:48 PM EDT Encounter for adjustment or management of cardiac device CARDIAC DEVICE CHECK- REMOTE- MURJ Routine 01/18/2025 11:02 AM EDT from Last 3 Months Results * CARDIAC DEVICE CHECK- IN CLINIC- MURJ (01/26/2025 3:48 PM EDT) Date Time Interrogation Session [id number] CV DEVICE CHECK Implantable Pulse Generator Test Driller MDT CV DEVICE CHECK Implantable Pulse Generator Type IPG CV DEVICE CHECK Implantable Pulse Generator Model Advisa MRI [id number] CV DEVICE CHECK Implantable Pulse Generator Serial Number [id number] CV DEVICE CHECK Implantable Pulse Generator Implant Date 20170530 CV DEVICE CHECK Battery Voltage 2.970 CV D EVICE CHECK Battery Status Middle of Service CV DEVICE CHECK Silver Statistic RA Percent Paced 14.80 CV DEVICE CHECK Silver Statistic RV Percent Paced 0.20 CV DEVICE CHECK Atrial Tachy Statistic AT/AF Era Percent 0.00 CV DEVICE CHECK Lead Channel [...] 11:02 AM EDT) Date Time Interrogation Session [id number] CV DEVICE CHECK Type Interrogation Session Remote CV DEVICE CHECK Implantable Pulse Generator Test Driller MDT CV DEVICE CHECK Implantable Pulse Generator Type IPG CV DEVICE CHECK Implantable Pulse Generator Model Advisa MRI [id number] CV DEVICE CHECK Implantable Pulse Generator Serial Number [id number] CV DEVICE CHECK Implantable Pulse Generator Implant Date 20170530 CV DEVICE CHECK Battery Remaining Longevity 42.0 CV DEVICE CHECK Battery Voltage 2.970 CV D EVICE CHECK Battery MIXER WET POUR Trigger 2.830 CV DEVICE CHECK Battery Status Middle of Service CV DEVICE CHECK Silver Statistic RA Percent Paced 15.36 CV DEVICE CHECK Silver Statistic RV Percent Paced 0.25 CV DEVICE CHECK Atrial Tachy Statistic AT/AF Era Percent 0.00 CV DEVICE CHECK Lead Channel [...] [place] Care Teams Framework Developer Relationship Specialty Start Date End Date Sisi Hernandez MD [address] [place] [address] PCP - General 01/20/13
--- OUTSIDE RECORDS SUMMARY | 2025-04-12 20:46 | XMS_ITS | Clinical Summary ---
Author Organization [facility] Address [address] [place] [address] Care Team Providers Care Florist Name Role Phone Sisi Hernandez MD Primary Care Provider [phone] Allergies Active Allergy Reactions Criticality Noted Date [...] 1-dose 75+ series) 11/20/2066 Insurance Care Teams Florist Relationship Specialty Start Date End Date Sisi Hernandez MD [address] [place] [address] PCP - General Internal Medicine 04/13/24
== END 2025-04-12 16:01 | disposition home or self-care (01) ==
LOC: HO.HGI 15:19
PROVIDERS: PCP Internal Medicine; Visit Provider Internal Medicine Gastroenterology
DX: Z13.88 Encounter for screening for disorder due to exposure to contaminants (principal)
CPT/HCPCS: 99213

== ENCOUNTER → 2025-04-12 15:19 | Outpatient (BNVA) | payer OTHER, SELFPAY | PROVIDERS: PCP Internal Medicine; Visit Provider Internal Medicine Gastroenterology | DX: K59.00 Constipation, unspecified (principal); M79.10 Myalgia, unspecified site | CPT/HCPCS: 99212 ==

== ENCOUNTER 2025-04-22 10:49 | Outpatient (REF) | payer OTHER, SELFPAY ==
--- NOTE | ~2025-04-22 | MR_ITS ---
EXAM: MR femur left without and with IV contrast TECHNIQUE: Multiplanar - multisequence imaging through a left femur lower extremity was performed before and after demonstration of IV contrast. Contrast: 7 mm Gadavist INDICATION: M62.81 - Muscle weakness (generalized), mild elevated creatine kinase, EMG within normal limits, left thigh pain, hip and groin pain PRIOR: None FINDINGS: There is no muscle edema, atrophy, or fatty streaking. There is trace fluid signal at the insertion of gluteus minimus and medius tendons on the greater trochanter. There is is also mild focal hyperenhancement. No abnormalities are present along the major neurovascular bundles. No abnormalities are present on image neurovascular bundles. Bone marrow signal is physiologic. There is a dominant follicle in the left ovary with a thin hyperenhancing wall MR/MR femur LT wo/w con IMPRESSION: Unremarkable left thigh. No muscle edema or atrophy. Electronically signed by: Charanjit Carballo MD 04/22/2025 12:33 PM EDT
== END 2025-04-22 10:50 | disposition home or self-care (01) ==
LOC: HO.MRI 10:49
PROVIDERS: PCP Internal Medicine; Visit Provider Internal Medicine Rheumatology
DX: M79.10 Myalgia, unspecified site (principal)
CPT/HCPCS: 73720; A9585

== ENCOUNTER → 2025-04-22 11:02 | Outpatient (BNV) | payer OTHER, SELFPAY | PROVIDERS: PCP Internal Medicine; Visit Provider Radiology Diagnostic Radiology | DX: M76.02 Gluteal tendinitis, left hip (principal); M62.81 Muscle weakness (generalized) | CPT/HCPCS: 73720 ==

== ENCOUNTER 2025-04-29 10:07 | Outpatient (AMB) | payer OTHER, SELFPAY ==
--- NOTE | 2025-04-29 10:20 | MHC.OFFVIS ---
Vital Signs 04/29/25 10:21 Height 5 ft 3 in Weight 156 lb 4.924 oz BMI 27.7 BP 110/80 Blood Pressure Location Rt brachial Position Sitting Pulse 74 Pulse Source Pulse Oximeter Pulse Oximetry (%) 98 Oxygen Delivery Method Room Air Intake Visit Reasons: Discuss results Intake Note: Patient presents today to discuss lab results. Apprentice Carpenter Required: No Accompanied by: Self / Same As Patient Allergies cefoxitin (CEFOXITIN) Allergy (Severe, Verified 04/29/25 10:27) Anaphylaxis sertraline Allergy (Severe, Verified 04/29/25 10:27) itching vancomycin (VANCOMYCIN) Allergy (Severe, Verified 04/29/25 10:27) Anaphylaxis HPI HPI Discuss results: Details: Weakness is progressively worsening. She is having a difficult time putting her hair in a ponytail. She continues to have fatigue. [facility] Medical History Myalgia Environmental allergies Asthma Pulmonary emboli Pleuritic chest pain Abnormal serum angiotensin-converting enzyme level Cardiac arrhythmia Pulmonary nodules Dyspnea History of DVT (deep vein thrombosis) History of chemotherapy History of palpitations Hx of supraventricular tachycardia Narcolepsy Seasonal allergies Anxiety and depression Pacemaker Pernicious anemia B12 deficiency Active asthma POTS (postural orthostatic tachycardia syndrome) H/O brain tumor Surgical History History of repair of rectocele Hx of hysterectomy History of cardiac radiofrequency ablation (RFA) Hx of craniotomy H/O colonoscopy H/O esophagogastroduodenoscopy Hx of appendectomy Family History Mother Heart problem Maternal Grandfather Heart problem Paternal Grandmother Dementia Social History Household Members: None Are you a primary ambulatory care nurse to a significant other at home: No Do you presently have visiting nurse or other home services: Yes ([employer] 4.5 week) Alcohol intake: current Alcohol intake frequency: a few times a month Patient Tobacco Use Status: Never used Tobacco Physical Exam Vital Signs: Last Vital Signs Pulse 74 04/29/25 10:21 BP 110/80 04/29/25 10:21 Pulse Ox 98 04/29/25 10:21 Oxygen Delivery Method Room Air 04/29/25 10:21 BMI result Body Mass Index 27.7 Const Other: General: Comfortable CVS: RRR Respiratory: clear to auscultation bilaterally. Good respiratory effort Skin: No lesions seen MSK: Tender bilateral MCPs, wrists, shoulders. No synovitis. She is able to get up from seated position to standing position without using hands on hand rest. She is able to squat. Bilateral Shoulder abduction 4/5, shoulder adduction 5/5. 3/5 power bilateral hip flexors, knee flexors. Hip extensors, knee extensors, ankle plantar flexion and dorsiflexion is 5/5. Diffuse allodynia of upper, lower extremities and back. Assessment & Plan Assessment & Plan (1) Myalgia: Code(s): M79.10 - Myalgia, unspecified site Category: Medical (2) Muscle weakness: Code(s): M62.81 - Muscle weakness (generalized) Category: Medical Plan 34-year-old female presenting with chronic myalgias and muscle weakness of upper and lower extremities in setting of chronic leukopenia with mild elevation in muscle enzymes. Hx of fatigue with background of narcolepsy. Muscle weakness has progressed to involve proximal upper extremities with persistent proximal lower extremity weakness. Mild elevation in CK is up trending. She continues to have diffuse allodynia representing clinical picture of fibromyalgia. Current workup with right upper extremity and lower extremity EMG in left femur MRI have been unremarkable in identifying pathology that can be contributing to her symptoms. Extensive rheumatology antibody workup has been unremarkable with normal inflammatory markers. We discussed next steps in evaluation for pathology with repeating muscle enzymes, inflammatory markers and obtaining left upper extremity and lower extremity EMG. I recommend that she schedule physical rehabilitation to help strengthen her muscles and try to alleviate her fatigue. If she is unable to tolerate or progress physical therapy, I recommend that she try aquatic therapy, which can be offered to her by her local [facility], [employer] or sensory fitness. We discussed the importance of continued evaluation with workup for muscle pathology contributing to her symptoms and then considering further management for fibromyalgia if workup continues to be unrevealing. Patient agrees with plan. She has mistrust in the medical system in regards to her prior experience with multiple providers and being missed diagnosed on more than 1 occasion. I reassured her that I am actively working up her situation and trying to help her the best way I can within the scope of rheumatology. Answered patient's questions to her satisfaction. Return to clinic 3-4 months. Orders: Orders Aldolase Today M62.81 - Muscle weakness (generalized), M79.10 - Myalgia, unspecified site Creatine Kinase Total Today M62.81 - Muscle weakness (generalized), M79.10 - Myalgia, unspecified site C Reactive Protein Today M62.81 - Muscle weakness (generalized), M79.10 - Myalgia, unspecified site, Z79.899 - Other intermediate (current) drug therapy NE electromyogram (EMG) Today M62.81 - Muscle weakness (generalized), M79.10 - Myalgia, unspecified site NE nerve conduction velocity Today M62.81 - Muscle weakness (generalized), M79.10 - Myalgia, unspecified site Erythrocyte Sedimentation Rate Today M62.81 - Muscle weakness (generalized), M79.10 - Myalgia, unspecified site, Z79.899 - Other manager intermediate (current) drug therapy Complete Blood Count Auto Diff Today M62.81 - Muscle weakness (generalized), M79.10 - Myalgia, unspecified site Coding Level of Care Code Est Pt Level 4 (97046) Complex EM visit Add On G2211 Diagnoses Myalgia M79.10 Muscle weakness M62.81
[2025-04-29 10:21] VITALS: BP 110/80; PULSE 74; O2SAT 98; BMI 27.7
--- OUTSIDE RECORDS SUMMARY | 2025-04-29 11:31 | XMS_ITS | Clinical Summary ---
Author Organization [facility] Address [address] [place] [address] Care Team Providers Care Circus Supervisor Name Role Phone Sisi Hernandez MD Primary Care Provider [phone]- [phone] Allergies Active Allergy Reactions Criticality Noted Date [...] mouth every 6 hours as needed. Active lisdexamfetamin e dimesylate (VYVANSE ORAL) Take by mouth. Active nitroglycerin (NITROSTAT) 0.[address] 1 TABLET UNDER TONGUE EVERY 5 MIN NEEDED FOR CHEST PAIN, MAX OF 3 DOSES/15 MIN CALL 911/SEEK MEDICAL ATTENTION IF PAIN PERSISTS 25 tablet 2 5 Active verapamil SR (CALAN-SR) 240 mg CR tablet TAKE 1 TABLET BY MOUTH EVERY DAY. 90 tablet 1 Active Active Problems Problem Noted Date Diagnosed Date Right leg pain 09/05/2022 Sinoatrial node dysfunction (CMS/HCC V24, CMS/HC C V28) 09/05/2022 Inappropriate sinus tachycardia (CMS/HCC V24) Encounters Date Type Department Care Team Description 04/29/2025 Telephone [facility] - [facility] [address] [facility] [address] [place] [address] Harley Veliz MD from Last 3 Months [...] Care Team (Late st Contact Info) Description 06/21/2025 1:40 PM EST Office Visit [facility] - [address] [facility] [address] [place] [address] Kelley Johnson PA [address] [place] [address] 01/26/2026 3:00 PM EDT Ancillary Procedure [facility] - [facility] [address] [facility] [address] [place] [address] Health Maintenance Due Date Last Done Comments Hepatitis B Vaccines (1 of 3 - 19+ 3-dose series) 11/20/2010 Cervical Cancer Screening: Pap Smear 11/20/2012 Pneumococcal Vaccine: Pediatrics (0 to 5 Years) and At-Risk Patients (6 to 49 Years) (2 of 2 - PCV) 11/23/2017 11/23/2016 HPV Vaccines (1 - Risk 3-dose SCDM series) 11/20/2018 COVID-19 Vaccine (3 - Moderna risk series) 11/11/2020 10/14/2020, 09/05/2020 HIV Screening 05/12/2022 Hepatitis C Screening 05/12/2022 Social Influencers of Health Screening 05/12/2022 Depression Screening 07/29/2024 Influenza Vaccine (#1) 2025 , 05/16/2023, 06/04/2021, Additional history exists DTaP,Tdap,and Td Vaccines (2 - Td or Tdap) 03/10/2028 03/10/2018 RSV Immunization Adult Patients (1 - 1-dose 75+ series) 11/20/2066 HIB Vaccines Aged Out No longer eligi [...] this topic Medical Devices Implanted Type Area Wardrobe Consultant Device Identifier Shelf Expiration Date Model / Serial / Lot Medt-Card Advisa Dr De Guzman [id number] Implanted:08/2016 (Quantity not on file) Cardiac Pacemaker [employer] - CARDIAC RHYTH-CRDM ADVISA DR DE GUZMAN [id number] / [id number] / Insurance [place] [place] Care Teams Circus Supervisor Relationship Specialty Start Date End Date Sisi Hernandez MD [address] [place] [address] PCP - General 01/20/13
--- OUTSIDE RECORDS SUMMARY | 2025-04-29 11:31 | XMS_ITS | Clinical Summary ---
Author Organization [facility] Address [address] [place] [address] Care Team Providers Care Presales Engineer Name Role Phone Sisi Hernandez MD [...] 1-dose 75+ series) 11/20/2066 Insurance Care Teams Presales Engineer Relationship Specialty Start Date End Date Sisi Hernandez MD [address] [place] [address] PCP - General Internal Medicine 04/13/24
--- OUTSIDE RECORDS SUMMARY | 2025-04-29 11:31 | XMS_ITS | Encounter Summary ---
Author Organization [facility] Address [address] [place] [address] Care Team Providers Care Boom Man Name Role Phone Sisi Hernandez MD Primary Care Provider +1- [phone] Reason for Visit * Reason Onset Date Comments disconnected remote monitor 04/29/2025 Encounter Details Date Type Department Care Team (Late st Contact Info) Description 04/29/2025 Telephone [facility] - [facility] [address] [facility] [address] [place] [phone] Harley Veliz MD [address] [facility] [address] [place] [address] Social History Tobacco Use Types Packs/Day Years [...] on file documented as of this encounter Progress Notes * Karen Sommers MA - 04/29/2025 10:28 AM EDT 04.29.25 called pt regarding disconnected monitor, pt did not answer. voicemail was left and a letter will be sent home // yjb documented in this encounter Plan of Treatment Upcoming Encounters Date Type Department Care Team (Late st Contact Info) Description 06/21/2025 1:40 PM EST Office Visit [facility] - [facility] [address] [facility] [address] [place] [address] Kelley Johnson PA [address] [place] [address] 01/26/2026 3:00 PM EDT Ancillary Procedure [facility] - [facility] [address] [facility] [address] [place] [address] documented as of this encounter Visit Diagnoses Not on filedocumented in this encounter Care Teams Boom Man Relationship Specialty Start Date End Date Sisi Hernandez MD [address] [place] [address] PCP - General 01/20/13 documented as of this encounter
--- OUTSIDE RECORDS SUMMARY | 2025-04-29 11:31 | XMS_ITS | Clinical Summary ---
Author Organization [facility] Address [address] [place], [place] [address] Phone Care Team Providers Care Hypoid Gear Generator Name Role Phone Unknown, Unknown Primary Care [...] REPLACEMENT MEDICARE REPLACEMENT MEDICARE REPLACEMENT MEDICARE REPLACEMENT [address] [place] [address] CARE MEDICARE REPLACEMENT [address] [place] [address] CARE MEDICARE REPLACEMENT Care Teams Hypoid Gear Generator Relationship Specialty Start Date End Date Unknown, Unknown, PCP - General 12/25/19 Additional Source Comments The information contained in this document represents components of the legal health record. It is not the complete legal health record.[facility]
== END 2025-04-29 11:00 | disposition home or self-care (01) ==
PROVIDERS: PCP Internal Medicine; Visit Provider Internal Medicine Rheumatology
DX: M79.10 Myalgia, unspecified site (principal)
CPT/HCPCS: 99214; G2211

== ENCOUNTER 2025-04-29 10:07 | Outpatient (REF) | payer OTHER, SELFPAY ==
--- OUTSIDE RECORDS SUMMARY | 2025-04-29 12:58 | XMS_ITS | Data Portability ---
Author Organization [place] - [facility], [facility] Address [address] [address] Care Team Providers Care Clinical Nurse Occupational Medicine Name Role Phone JAZMIN SANCHES Primary Care Provider [phone] Assessment Encounter Date Assessment Date Assessment LastModified [...] and she will follow up with her fund director for hearing aid adjustment. She will follow up in 6 months for routine debridement, or sooner with any concerns. [email or web address] Not available 04/06/2024 15:17:29 Plan of Treatment Reminders Order Date Submit Date Provider Last Modified By Organization Details Last Modified Time Details Appointments None record ed. Lab None record ed. Referral None record ed. Procedures None record ed. Surgeries None record ed. Imaging None record ed. Medication Orders None record ed. Patient TargetsNo targets recorded. Patient InstructionsNo instructions [...] Name and Address Organization Details Recorded Time Conductiv e hearing loss [id number] Active 2015 Conductiv e hearing loss, unilatera l, left ear, with unrestric rusyt hearing on the contralat eral side; Note: Date Diagnosed : 01/12/2016 3:33 PM (H90.12) Not Available [facility] 4 02:32:44 Acute myringiti s of left ear [id number] 89571 Active 2017 Acute myringiti s, left ear; Note: Date Diagnosed : 8 3:58 PM (H73.002) Not Available [facility] 4 02:32:53 Otorrhea of left ear 74879404810 54338 Active 2017 Otorrhea, left ear; Note: Date Diagnosed : 8 3:55 PM (H92.12) Not Available [facility] 4 02:32:48 Central perforati on of left tympanic membrane 43608142944 82285 Active 2017 Central perforati on of tympanic membrane, left ear; Note: Date Diagnosed : 8 3:55 PM (H72.2X2) Not Available [facility] 4 02:32:50 History of radiation exposure 596133781 Active 2020 Personal history of exposure to therapeut ic radiation ; Note: Date Diagnosed : 08/25/2020 12:52 PM (Z92.3) Not Available [facility] 4 02:32:49 Impacted cerumen of bilateral ears 32706666503 04005 Active 2020 Impacted cerumen, bilateral ; Note: Date Diagnosed : 02/16/2021 3:38 PM (H61.23) Impacte d cerumen, bilateral ; Note: Date Diagnosed : 08/01/2020 2:25 PM (H61.23) ; Start Date : 1 Not Available [facility] 4 02:32:58 Pain of left temporoma ndibular joint 23280993695 775376 Active 2020 Arthralgi a of left temporoma ndibular joint; Note: Date Diagnosed : 02/16/2021 3:38 PM (M26.622) Not Available [facility] 4 02:32:35 Problem Notes None recorded. Procedures Surgical History Date Name Laterality Status Provider Name and Address Organization Details Recorded Time 4 Comp Audio with Tymps - 54388 & 55396 completed VAN MIRANDA 100 [facility],[address], [address], [facility] 04/06/2024 14:53:13 4 Cerumen removal without microscope bilat completed CLINT GASTELUM PA-C 100 [facility],[address], [address], [facility] 04/06/2024 14:03:31 Imaging Results None recorded. Procedure Notes None recorded. Medical Equipment None Reported. Allergies Allergen ID Allergen Name Allergen Category Reaction Reaction Severity Criticality Documentation Date Start Date Code Code System Note Provider Name and Address Organization Details Recorded Time 12430 hydrocort isone / neomycin / polymyxin B medicatio n other Not available Not available 12/10/2023 53345 7 RxNorm React ion: unkno wn, unspe cifie d;; Not Available [facility] 4 01:03:11 33005 cefoxitin medicatio n other Not available Not available 12/10/2023 2189 RxNorm React ion: unkno wn, unspe cifie d;; Not Available [facility] 4 01:03:15 Medications Name Sig Start Date Stop Date Status Note LastModified by Organization Details LastModified Time vitamin d3 1.25 mg (50581 u TAKE 1 CAPSULE BY MOUTH EVERY [...] Not Available Not Available No t Available senna 8.6 mg tablet TAKE 2 TABLETS BY MOUTH EVERY DAY AT BEDTIME NEEDED FOR CONSTIPA TION active Not Available Not Available No t Available diltiazem CD 240 mg capsule,e xtended release 24 hr 02/16 completed Medicati on ID: [id number] D uration Value: 30 Brand Name: diltiaze m HCl Send Method: E-Prescr ibed Sub s Allowed: subs BOO Speci al Instruct ion: TAKE 1 CAPSULE BY ORAL ROUTE EVERY DAY Medi cationGe nericNam e: diltiaze m HCl Not Available Not Available Not Available Nexium 40 mg capsule,d elayed release 08/01 completed Medicati on ID: [id number] D uration Value: 90 Brand Name: Nexium S end Method: E-Prescr ibed Sub s Allowed: subs BOO Mckenziei al Instruct ion: 1 CAPSULE BY MOUTH DAILY Me dication GenericN nadege: Nexium Not Available Not Available Not Available diltiazem ER 360 mg capsule,2 4 hr,extend ed release 2020 active Medicati on ID: [id number] B rand Name: diltiaze m HCl Send Method: E-Prescr ibed Sub s Allowed: subs BOO Mckenziei al Instruct ion: TAKE 1 CAPSULE BY [...] Not Available Not Available No t Available ciproflox acin 500 mg tablet TAKE 1 TABLET BY MOUTH TWO TIMES A DAY FOR 7 DAYS active Not Available Not Available No t Available peg-elect rolyte solution 420 gram oral solution MIX AND DRINK 8 OUNCES (240 ML) BY MOUTH EVERY 10 MINUTES UNTIL FECAL EFFLUENT IS CLEAR active Not Available Not Available No t Available acetamino phen 500 mg tablet TAKE 1 TABLET BY MOUTH EVERY 4 TO 6 HOURS NEEDED. active Not Available Not Available No t [...] mg tablet 2021 active Medicati on ID: [id number] B rand Name: metoprol ol tartrate Send Method: E-Prescr ibed Sub s Allowed: subs OK Speci al Instruct ion: TAKE 1 TABLET BY MOUTH TWO TIMES A DAY WITH MEALS Me dication GenericN nadege: metoprol ol tartrate Not Available Not Available [...] Not Available Not Available No t Available Drysol Dab-O-Mat ic 20 % topical solution APPLY TOPICALL Y TO AFFECTED AREA DAILY AT BEDTIME NEEDED FOR EXCESSIV E SWEATING active Not Available Not Available No t Available verapamil ER (SR) 240 mg tablet,ex tended release TAKE 1 TABLET BY MOUTH EVERY DAY. active Not Available Not Available No t Available dextroamp hetamine- amphetami ne ER 10 mg 24hr capsule,e xtend release 2021 active Medicati on ID: [id number] B rand Name: dextroam phetamin e-amphet amine Se nd Method: E-Prescr ibed Sub s Allowed: subs OK Medic ationGen ericName : dextroam phetamin e-amphet amine Not Available Not Available Not Available bisacodyl 5 mg tablet,de layed release TAKE 1 TABLET BY MOUTH EVERY DAY active Not Available Not Available No t Available acebutolo l 200 mg capsule 08/01 completed Medicati on ID: [id number] D uration Value: 15 Brand Name: acebutol ol Send Method: E-Prescr ibed Sub s Allowed: subs OK Speci al Instruct ion: TAKE 3 CAPSULES EVERY MORNING AND TAKE 3 CAPSULES EVERY EVENING Medicati onGeneri cName: acebutol ol Not Available Not Available Not Available hydroxych loroquine 200 mg tablet TAKE 1 TABLET BY MOUTH EVERY DAY active Not Available Not Available No t Available ibuprofen 600 mg tablet TAKE 1 TABLET BY MOUTH EVERY 6 TO 8 HOURS NEEDED. active Not Available Not Available No t Available methylpre dnisolone 4 mg tablets in a dose pack TAKE DIRECTED ON PACKAGE FOR 6 DAYS WITH FOOD active Not Available Not Available No t Available fluoxetin e 20 mg capsule 08/01 completed Medicati on ID: [id number] D uration Value: 30 Brand Name: fluoxeti ne Send Method: E-Prescr ibed Sub s Allowed: subs OK Speci al Instruct ion: TAKE ONE CAPSULE BY MOUTH EVERY DAY Medi cationGe nericNam e: fluoxeti ne Not Available Not Available Not Available dextroamp hetamine- amphetami ne 5 mg tablet 2021 active Medicati on ID: [id number] B rand Name: dextroam phetamin e-amphet amine [...] Not Available Not Available No t Available oxycodone 5 mg tablet TAKE 1 TABLET BY MOUTH EVERY 6 HOURS NEEDED FOR BREAKTHR OUGH PAIN. active Not Available Not Available No t Available neomycin- polymyxin -hydrocor t 3.5 mg-10,000 unit/mL-1 % ear drops,sherry p 07/17 completed Medicati on ID: [id number] D uration Value: 20 Brand Name: neomycin -polymyx in-HC Se nd Method: E-Prescr ibed Sub s Allowed: subs OK Speci al Instruct ion: INSTILL 5 DROPS INTO LEFT EAR TWO TIMES A DAY FOR 7 DAYS Med icationG enericNa me: neomycin -polymyx in-HC Not Available Not Available Not Available azithromy nell 500 mg tablet TAKE 1 TABLET BY MOUTH EVERY DAY FOR 3 DAYS active Not Available Not Available No t Available Ciprodex 0.3 %-0.1 % ear drops,sherry pension 4 drop 2017 active Medicati on ID: [id number] D uration Value: 10 Prescri bed By Name: Jonathan Parker M.D. Bra nd Name: Ciprodex Send Method: E-Prescr ibed Sub s Allowed: subs OK Medic ationGen ericName : Ciprodex Not Available Not Available Not Available chlorhexi dine gluconate 0.12 % mouthwash RINSE MOUTH WITH 15 ML (1 CAPFUL) FOR 30 SECONDS EVERY MORNING AND EVENING AFTER TOOTHBRU SHING. EXPECTOR ATE AFTER RINSING, DO NOT SWALLOW. active Not Available Not Available No t Available Symbicort 160 mcg-4.5 mcg/actua tion HFA [...] Not Available Not Available No t Available Creon 12,000-38 ,000-60,0 00 unit capsule,d elayed release TAKE 3 CAPSULES BY MOUTH THREE TIMES A DAY WITH MEALS OR SNACKS active Not Available Not Available No t [...] Not Available Not Available No t Available Motegrity 1 mg tablet TAKE 1 TABLET BY MOUTH EVERY DAY active Not Available Not Available No t Available Motegrity 2 mg tablet TAKE 1 TABLET BY MOUTH EVERY DAY active Not Available Not Available No t Available Breztri Aerospher e 160 mcg-9mcg- 4.8mcg/ac tuation HFA aerosol inhaler INHALE 2 PUFFS INTP LUNGS TWO TIMES A DAY active Not Available Not Available No t Available Vitals Date Recorded Body height Body mass index (BMI) Body weight Provider Name and Address Organization Details Last Updated DateTime 04/06/2024 154.94 cm 27.4 kg/m2 81255.89 g Jacqueline Paredes [place] - [facility] 04/06/2024 14:10:42 Social History None recorded. Functional Status None recorded. Mental Status None recorded. Family History Nothing Reported. Medical History No medical history recorded. Gynecological HistoryNo gynecological history recorded. Obstetrics History GPAL:G 0 P 0 0 0 0 Past Encounters Encounter ID Performer Location Encounter Start Date Encounter Closed Date Diagnosis/Indication Diagnosis SNOMED-CT Code Diagnosis ICD10 Code Diagnosis IMO Codes Diagnosis Note [id number] CLINT GASTELUM PA-C [facility] [address] [address] 04/06/2024 14:00:38 04/06/2024 15:09:40 Central perforation of left tympanic membrane [id number] 772215 H72.02 Impacted c erumen of bilateral ears 9598178574 398635 H61.23 Conductive hearing loss 52972286 H90.12 Audiologic al evaluation results: Right ear: Normal hearing with excellent word recognitio n. Left ear: Normal sloping to a mild conductive hearing loss with excellent word recognitio n. Tympanomet ry: Right Ear:Type A Left Ear:Type B with large volume Health Concerns Section Related Observation LastModified by Organization Detai ls LastModified Time None Recorded Concern Status LastModified by Organization Details LastModified Time None Recorded Advance Directives Directive None Recorded Payers Insurance Date Sequence Insurance Name Policy Number Policy Dahl Covered Member ID Dahl Member ID Guarantor Name 10/02/[address] [place] [address] [facility] - [facility] [id number] Ekta Arzate [id number] Ekta Arzate Notes Date Note Type Note Provider Name and Address Organization Details Recorded Time 04/06/2024 text/html ROS as noted in the HPI 33-year-old female with left sided tympanic membrane [...] of medulloblastoma in 2012. ROBERT FELDMAN MD [address] [place] [address], [place], [address], [facility] - [facility] 04/07/2024 08:53:19 OBGyn Episode No OBEpisode recorded.
[2025-04-29 13:34] LABS: MANUAL DIFF FLAG NO
[2025-04-29 13:39] LABS: Hematocrit 41.5 % (37.0-47.0); Hemoglobin 13.7 g/dl (12.0-16.0); Imm Gran Abs Auto 0.00 X10*3/uL (0.00-0.03); Imm Gran Pct Auto 0.0 % (0.0-0.4); Lymphocytes Absolute Auto 0.7 X10*3/uL (1.2-4.9); Mean Corpuscular HGB Conc 33.0 g/dl (31.0-35.0); Mean Corpuscular Hemoglobin 28.1 pg (27.0-33.0); Mean Corpuscular Volume 85.2 fL (80.0-98.0); NRBC Abs Auto 0.000 X10*3/uL (0.0-0.012); NRBC Pct Auto 0.0 /100WBC (0.0-0.2); Platelet Count 166 X10*3/uL (160-400); Red Blood Count 4.87 X10*6/uL (4.20-5.50); SCAN SMEAR FLAG 1
[2025-04-29 13:48] LABS: White Blood Count 2.2 X10*3/uL (4.8-10.8)
== END 2025-04-29 10:08 | disposition home or self-care (01) ==
LOC: HO.HKASLDS 10:07
PROVIDERS: PCP Internal Medicine; Visit Provider Internal Medicine Rheumatology
DX: M79.10 Myalgia, unspecified site (principal); D72.819 Decreased white blood cell count, unspecified; Z79.899 Other long term (current) drug therapy
CPT/HCPCS: 36415; 82085; 82550; 85025; 85652; 86140; 99212

== ENCOUNTER 2025-05-20 10:26 | Outpatient (AMB) | payer OTHER, SELFPAY ==
--- OUTSIDE RECORDS SUMMARY | 2025-05-19 22:25 | XMS_ITS | Encounter Summary ---
Author Organization [facility] Address [address] [place] [address] Care Team Providers Care Import Customs Clearing Agent Name Role Phone Sisi Hernandez MD Primary Care Provider [phone] Encounter Details Date Type Department Care Team (Late st Contact Info) Description 05/19/2025 10:25 PM EDT Ancillary Procedure [facility] Cardiology [facility] [address] [place] [address] Arrived Social History Tobacco Use Types Packs/Day [...] Description 06/21/2025 1:40 PM EST Office Visit [facility] [address] [place] [address] Kelley Johnson PA [address] [place] [address] 01/26/2026 3:00 PM EDT Ancillary Procedure [facility] [address] [place] [address] documented as of this encounter Procedures Procedure Name Priority Date/Time Associated Diagnosis Comments CARDIAC DEVICE CHECK- REMOTE- MURJ Routine 05/19/2025 10:21 PM EDT documented in this encounter Results * Cardiac device check - Remote- MURJ (05/19/2025 10:21 PM EDT) Date Time Interrogation Session [id number] CV DEVICE CHECK Type Interrogation Session Remote CV DEVICE CHECK Implantable Pulse Generator Grade And Center Marker MDT CV DEVICE CHECK Implantable Pulse Generator Type IPG CV DEVICE CHECK Implantable Pulse Generator Model Advisa DR MRI [id number] CV DEVICE CHECK Implantable Pulse Generator Serial Number [id number] CV DEVICE CHECK Implantable Pulse Generator Implant Date 20170530 CV DEVICE CHECK Battery Remaining Longevity 38.0 CV DEVICE CHECK Battery Voltage 2.960 CV D EVICE CHECK Battery OFFSET PLATEMAKER Trigger 2.830 CV DEVICE CHECK Battery Status Middle of Service CV DEVICE CHECK Silver Statistic RA Percent Paced 14.72 CV DEVICE CHECK Silver Statistic RV Percent Paced 0.03 CV DEVICE CHECK Atrial Tachy Statistic AT/AF [place] Percent 0.00 CV DEVICE CHECK Lead Channel Sensing Intrinsic Amplitude 1.125 CV DEVICE CHECK Lead Channel Setting Sensing Sensitivity 0.30 CV DEVICE CHECK Lead Channel Impedance Value 456 CV DEVICE CHECK Lead Channel Pacing Threshold Amplitude 0.625 CV DEVICE CHECK Lead Channel Pacing Threshold Pulse Width 0.4 CV DEVICE CHECK Lead Channel RA Pacing Threshold Date 2025-05-18 CV DEVICE CHECK Lead Channel Setting Pacing Amplitude 1.500 CV DEVICE CHECK Lead Channel Setting Pacing Pulse Width 0.4 CV DEVICE CHECK Lead Channel Sensing Intrinsic Amplitude 4.750 CV DEVICE CHECK Lead Channel Setting Sensing Sensitivity 2.80 CV DEVICE CHECK Lead Channel Impedance Value 456 CV DEVICE CHECK Lead Channel Pacing Threshold Amplitude 0.625 CV DEVICE CHECK Lead Channel Pacing Threshold Pulse Width 0.4 CV DEVICE CHECK Lead Channel RV Pacing Threshold Date 2025-05-18 CV DEVICE CHECK Lead Channel Setting Pacing [...] 6 CV DEVICE CHECK Date of Service 2025-05-19 CV DEVICE CHECK Anatomical Region Laterality Modality Device Interroga tion 05/18/2025 7:08 PM EDT Impressions 05/19/2025 3:18 PM EDT Normal Remote: No Events * Normal Device Function * Alerts or events: None * Battery: OK, 3.17 yrs * Sensing, impedance and thresholds reviewed * Programmed parameters reviewed * Presenting rhythm reviewed * Heart Rate Histograms reviewed * No significant changes noted Narrative Procedure Note Harley Veliz MD - 05/19/2025 IMPRESSION: Normal Remote: No Events * Normal Device Function * Alerts or events: None * Battery: OK, 3.17 yrs * Sensing, impedance and thresholds reviewed * Programmed parameters reviewed * Presenting rhythm reviewed * Heart Rate Histograms reviewed * No significant changes noted Harley Veliz MD CV IMPLANTABLE CARDIAC DEV ICE PROCEDURES Final Result documented in this encounter Visit Diagnoses Not on filedocumented in this encounter Care Teams Import Customs Clearing Agent Relationship Specialty Start Date End Date Sisi Hernandez MD [address] [place] [address] PCP - General 01/20/13 documented as of this encounter
--- NOTE | 2025-05-20 10:28 | MHC.OFFVIS ---
Vital Signs 05/20/25 10:29 Height 5 ft 3 in Weight 159 lb 9.835 oz BMI 28.3 BP 120/80 Blood Pressure Location Lt brachial Position Sitting Pulse 74 Pulse Source Pulse Oximeter Pulse Oximetry (%) 98 Oxygen Delivery Method Room Air Intake Visit Reasons: 3 Months Intake Note: Pt presents today for her follow up of myalgia Accompanied by: Self / Same As Patient Allergies cefoxitin (CEFOXITIN) Allergy (Severe, Verified 05/20/25 10:29) Anaphylaxis sertraline Allergy (Severe, Verified 05/20/25 10:29) itching vancomycin (VANCOMYCIN) Allergy (Severe, Verified 05/20/25 10:29) Anaphylaxis HPI HPI 3 Months: Details: Patient is experiencing weakness in her upper extremities. She is tired. [facility] Medical History Myalgia Environmental allergies Asthma Pulmonary emboli Pleuritic chest pain Abnormal serum angiotensin-converting enzyme level Cardiac arrhythmia Pulmonary nodules Dyspnea History of DVT (deep vein thrombosis) History of chemotherapy History of palpitations Hx of supraventricular tachycardia Narcolepsy Seasonal allergies Anxiety and depression Pacemaker Pernicious anemia B12 deficiency Active asthma POTS (postural orthostatic tachycardia syndrome) H/O brain tumor Surgical History History of repair of rectocele Hx of hysterectomy History of cardiac radiofrequency ablation (RFA) Hx of craniotomy H/O colonoscopy H/O esophagogastroduodenoscopy Hx of appendectomy Family History Mother Heart problem Maternal Grandfather Heart problem Paternal Grandmother Dementia Social History Household Members: None Are you a primary critical care unit nurse to a significant other at home: No Do you presently have visiting nurse or other home services: Yes ([employer] AFTER LASTING 4.5 week) Alcohol intake: current Alcohol intake frequency: a few times a month Patient Tobacco Use Status: Never used Tobacco Physical Exam Vital Signs: Last Vital Signs Pulse 74 05/20/25 10:29 BP 120/80 05/20/25 10:29 Pulse Ox 98 05/20/25 10:29 Oxygen Delivery Method Room Air 05/20/25 10:29 BMI result Body Mass Index 28.3 Assessment & Plan Assessment & Plan (1) Myalgia: Code(s): M79.10 - Myalgia, unspecified site Category: Medical (2) Muscle weakness: Code(s): M62.81 - Muscle weakness (generalized) Category: Medical Plan 34-year-old female presenting with chronic myalgias and muscle weakness of upper and lower extremities in setting of chronic leukopenia with mild elevation in muscle enzymes. Hx of fatigue with background of narcolepsy. Muscle weakness has progressed to involve proximal upper extremities with persistent proximal lower extremity weakness. Mild elevation in CK is now downtrending. Last exam she had diffuse allodynia representing clinical picture of fibromyalgia. Current workup with right upper extremity and lower extremity EMG in left femur MRI have been unremarkable in identifying pathology that can be contributing to her symptoms. Extensive rheumatology antibody workup has been unremarkable with normal inflammatory markers. We discussed next steps in evaluation for pathology with repeating muscle enzymes, inflammatory markers and obtaining left upper extremity and lower extremity EMG. I recommend that she schedule physical rehabilitation to help strengthen her muscles and try to alleviate her fatigue. If she is unable to tolerate or progress physical therapy, I recommend that she try aquatic therapy, which can be offered to her by her local [employer], [employer] or sensory fitness. Requisition was fax to [facility]. We discussed the importance of continued evaluation with workup for muscle pathology contributing to her symptoms and then considering further management for fibromyalgia if workup continues to be unrevealing. Patient will schedule physical therapy. She has an appointment with [facility]. Our office will provide her with the phone number for central scheduling to help coordinate EMG scheduling. Coding Level of Care Code Est Pt Level 2 (06138) Complex EM visit Add On G2211 Diagnoses Myalgia M79.10 Muscle weakness M62.81
[2025-05-20 10:29] VITALS: BP 120/80; PULSE 74; O2SAT 98; BMI 28.3
--- OUTSIDE RECORDS SUMMARY | 2025-05-20 12:35 | XMS_ITS | Clinical Summary ---
Author Organization [facility] Address [address] [place], [place] [id number] Phone Care Team Providers Care Fast Food Delivery Driver Name Role Phone Unknown, Unknown Primary Care [...] REPLACEMENT MEDICARE REPLACEMENT MEDICARE REPLACEMENT MEDICARE REPLACEMENT [place] [address] CARE MEDICARE REPLAC[address] [place] [address] CARE MEDICARE REPLACEMENT Care Teams Fast Food Delivery Driver Relationship Specialty Start Date End Date Unknown, Unknown, PCP - General 12/25/19 Additional Source Comments The information contained in this document represents components of the legal health record. It is not the complete legal health record.[facility]
--- OUTSIDE RECORDS SUMMARY | 2025-05-20 12:35 | XMS_ITS | Clinical Summary ---
Author Organization [facility] Address [address] [place] [address] Care Team Providers Care Family And Divorce Legal Assistant Name Role Phone Sisi Hernandez [...] 1-dose 75+ series) 11/20/2066 Insurance Care Teams Family And Divorce Legal Assistant Relationship Specialty Start Date End Date Sisi Hernandez MD [address] [place] [address] PCP - General Internal Medicine 04/13/24
--- OUTSIDE RECORDS SUMMARY | 2025-05-20 12:35 | XMS_ITS | Clinical Summary ---
Author Organization [facility] [place] Address [address] [place] [address] Care Team Providers Care Director Surgical Name Role Phone Sisi Hernandez MD Primary Care Provider +1- [phone] Allergies Active Allergy Reactions Criticality Noted Date [...] Encounters Date Type Department Care Team Description 05/19/2025 10:25 PM EDT Ancillary Procedure [facility] - [address] [place] [address] Arrived 05/11/2025 Telephone [facility] - [address] [place] [address] Harley Veliz MD 04/29/2025 Telephone [facility] - [address] [place] [address] Harley Veliz MD from Last 3 Months [...] Description 06/21/2025 1:40 PM EST Office Visit [facility] - [facility] [place] [facility] [address] [place] [phone] Kelley Johnson PA [address] [place] [address] 01/26/2026 3:00 PM EDT Ancillary Procedure [facility] - [facility] [place] [facility] [address] [facility] [address] [place] [phone] Health Maintenance Due Date Last Done Comments [...] this topic Medical Devices Implanted Type Area Furniture Restorer Device Identifier Shelf Expiration Date Model / Serial / Lot Medt-Card Jon Fuentes Jennifer [id number] Implanted:08/2016 (Quantity not on file) Cardiac Pacemaker [employer] - CARDIAC RHYTH-CRDM ADVISA DR DE GUZMAN [id number] / [id number] / Procedures Procedure Name Priority Date/Time Associated Diagnosis Comments CARDIAC DEVICE CHECK- REMOTE- MURJ Routine 05/19/2025 10:21 PM EDT from Last 3 Months Results * Cardiac device check - Remote- MURJ (05/19/2025 10:21 PM EDT) Date Time Interrogation Session [id number] CV DEVICE CHECK Type Interrogation Session Remote CV DEVICE CHECK Implantable Pulse Generator Furniture Restorer MDT CV DEVICE CHECK Implantable Pulse Generator Type IPG CV DEVICE CHECK Implantable Pulse Generator Model Adviseleno FUENTES JENNIFER [id number] CV DEVICE CHECK Implantable Pulse Generator Serial Number [id number] CV DEVICE CHECK Implantable Pulse Generator Implant Date 20170530 CV DEVICE CHECK Battery Remaining Longevity 38.0 CV DEVICE CHECK Battery Voltage 2.960 CV D EVICE CHECK Battery AMBULANCE DRIVER Trigger 2.830 CV DEVICE CHECK Battery Status Middle of Service CV DEVICE CHECK Silver Statistic RA Percent Paced 14.72 CV DEVICE CHECK Silvre Statistic RV Percent Paced 0.03 CV DEVICE CHECK Atrial Tachy Statistic AT/AF Gordon Percent 0.00 CV DEVICE CHECK Lead Channel [...] [employer] [place] Care Teams Director Surgical Relationship Specialty Start Date End Date Sisi Hernandez MD [address] [place] [address] PCP - General 01/20/13
== END 2025-05-20 11:21 | disposition home or self-care (01) ==
LOC: HO.RHES 10:27
PROVIDERS: PCP Internal Medicine; Visit Provider Internal Medicine Rheumatology
DX: M79.10 Myalgia, unspecified site (principal); M62.81 Muscle weakness (generalized)
CPT/HCPCS: 99212; G2211

== ENCOUNTER → 2025-05-20 10:26 | Outpatient (BNVA) | payer OTHER, SELFPAY | PROVIDERS: PCP Internal Medicine; Visit Provider Internal Medicine Rheumatology | DX: M62.81 Muscle weakness (generalized) (principal); D72.819 Decreased white blood cell count, unspecified | CPT/HCPCS: 99212 ==

== ENCOUNTER 2025-05-27 12:41 | Outpatient (RCR) | payer OTHER, SELFPAY ==
--- NOTE | 2025-05-27 14:18 | MHC.OT.EP ---
[facility] Office [address] [phone] F: [phone] F: [phone] Occupational Therapy Plan of Care Patient Name: Ekta Arzate Date of Evaluation: 05/27/25 Diagnosis: B UE's weakness Pain Location: B UE : shoulders varies into hand Pain Score: 8 Pain Scale Used: Numeric (0 - 10) Aggravating Factors: Alleviating Factors: Assessment: Pt is a 34 yr old R hand dominant female who reports pain / weakness throughout her body. she has a significant medical history such as : cancer, pacemaker inflammation in her blood, and narcolepsy. She reports numbness and tingling from neck into shoulder then B digits (she has an EMG scheduled for June). She presents today w/ pain w/ palpation of her cervical neck, mild scapular winging (L), weakness, and fatigue easily w/ therex. Pt would benefit from skilled OT therapy to address these deficits and focus/ educate the pt. on energy conservation, and jt. protection techniques. Frequency and Duration: The patient will be seen 1 x a week for 6 weeks Short Term Goals: Longterm Goals: Pt will be complaint w/ HEP Pt will have R shoulder MMT of 4+ (ext) Pt will have L shoulder MMT of 4 (ext) Pt will have R Shoulder MMT of 4+ (Flexion) Treatment Plan: Therapeutic Exercise Therapeutic Activity Home Exercise Program Splinting Neuro Re-ed Patient Education Desensitization/Sensory Re-ed Edema Control ADL Training Paraffin Fluidotherapy MHP Cold Packs Joint Mobilization Soft Tissue Mobilization Kinesiotaping it is also recommended pt have further diagnostic testing to determine the inflammatory response in her blood as well as address other sx's. It is also recommended pt. see a neurologist to address nerve pain and fatigue Electronically Signed By: Honey Sun OTR/L Please Sign and return to therapist. Thank you once again for your referral.
== END 2025-07-09 15:12 | disposition home or self-care (01) ==
LOC: HO.OT 12:41
PROVIDERS: PCP Internal Medicine; Visit Provider Internal Medicine Rheumatology
DX: M62.81 Muscle weakness (generalized) (principal); R29.898 Other symptoms and signs involving the musculoskeletal system
CPT/HCPCS: 97166

== ENCOUNTER 2025-07-09 11:22 | Outpatient (REF) | payer OTHER, SELFPAY ==
--- NOTE | ~2025-07-09 | XR_ITS ---
EXAMINATION: XR CHEST CLINICAL INFORMATION: R06.02 - Shortness of breath COMPARISON: March 28, 2023. TECHNIQUE: PA and lateral views. FINDINGS: No consolidation, pleural effusion or pneumothorax. No hyperinflation. Cardia mediastinal silhouette size is normal. 2. Intact electrode leads in the right heart chambers from a left-sided pacemaker. Osseous structures are intact with multilevel thoracolumbar spondylosis, mild. XR/XR chest 2V IMPRESSION: No acute airspace disease. Stable chest. Electronically signed by: Romulo Hurd MD 07/09/2025 01:25 PM EST
[2025-07-09 13:02] LABS: MANUAL DIFF FLAG NO
[2025-07-09 14:04] LABS: Hematocrit 41.2 % (37.0-47.0); Hemoglobin 13.5 g/dl (12.0-16.0); Imm Gran Abs Auto 0.01 X10*3/uL (0.00-0.03); Imm Gran Pct Auto 0.2 % (0.0-0.4); Lymphocytes Absolute Auto 1.3 X10*3/uL (1.2-4.9); Mean Corpuscular HGB Conc 32.8 g/dl (31.0-35.0); Mean Corpuscular Hemoglobin 28.0 pg (27.0-33.0); Mean Corpuscular Volume 85.5 fL (80.0-98.0); NRBC Abs Auto 0.000 X10*3/uL (0.0-0.012); NRBC Pct Auto 0.0 /100WBC (0.0-0.2); Platelet Count 209 X10*3/uL (160-400); Red Blood Count 4.82 X10*6/uL (4.20-5.50); White Blood Count 4.3 X10*3/uL (4.8-10.8)
[2025-07-09 14:40] LABS: NT Pro B Type Natriuretic Pept 51.4 pg/mL (<300)
[2025-07-09 14:44] LABS: Troponin-I High Sensitivity < 2.7 ng/L (<3.5-17.0)
[2025-07-09 14:55] LABS: Alanine Aminotransferase 32 U/L (0-31); Albumin Level 4.9 g/dL (3.5-5.0); Alkaline Phosphatase 91 U/L (39-117); Anion Gap 15 (12-20); Aspartate Amino Transferase 23 U/L (5-31); Blood Urea Nitrogen 9 mg/dL (9-16); Calcium 10.2 mg/dL (8.4-10.2); Carbon Dioxide 23 mmol/L (22-29); Chloride 106 mmol/L (96-108); Estimated Glomerular Filt Rate > 60; Iron 73 mcg/dL (30-160); Percent Iron Saturation 22 % (15-50); Potassium 3.6 mmol/L (3.3-5.1); Sodium 140 mmol/L (135-145); Total Iron Binding Capacity 330 mcg/dL (228-428); Total Protein 8.1 g/dL (6.5-8.0); Unsaturated Iron Binding 257 ug/dL
[2025-07-09 14:57] LABS: Ferritin 92 ng/mL (10-122)
[2025-07-09 15:10] LABS: Vitamin B12 275 pg/mL (200-900)
--- OUTSIDE RECORDS SUMMARY | 2025-07-09 18:01 | XMS_ITS | Clinical Summary ---
Author Organization [facility] [place] Address [address] [place] [address] Care Team Providers Care Accounts Specialist Name Role Phone Sisi Hernandez MD Primary Care Provider +1- [phone] Allergies Active Allergy Reactions Criticality Noted Date [...] Encounters Date Type Department Care Team Description 06/21/2025 Telephone [facility] Cardiology [facility] - [address] [place] [address] Zaida Arroyo [place] 06/17/2025 Telephone [facility] Cardiology [facility] - [address] [place] [address] Provider, Not In System 06/13/2025 6:20 PM EST Ancillary Procedure [facility] - [address] [place] [address] 05/19/2025 10:25 PM EDT Ancillary Procedure [facility] Cardiology [facility] - [address] [place] [address] 05/11/2025 Telephone [facility] - [address] [place] [address] Harley Veliz MD 04/29/2025 Telephone [facility] Cardiology [facility] - [address] [place] [address] Harley Veliz MD from Last 3 Months [...] Description 01/26/2026 3:00 PM EDT Ancillary Procedure [facility] - [address] [place] [address] Health Maintenance Due Date Last [...] of Health Screening 05/12/2022 Depression Screening 07/29/2024 DTaP,Tdap,and Td Vaccines (2 - Td or Tdap) 03/10/2028 03/10/2018 RSV Immunization Adult Patients (1 - 1-dose 75+ series) 11/20/2066 Influenza Vaccine Completed 05/22/2025, , 05/16/2023, Additional history exists HIB Vaccines Aged Out [...] this topic Medical Devices Implanted Type Area Voice Instructor Device Identifier Shelf Expiration Date Model / Serial / Lot Medt-Card Adviseleno De Guzman [id number] Implanted:08/2016 (Quantity not on file) Cardiac Pacemaker [employer] - CARDIAC RHYTH-CRDM ADVISA DR DE GUZMAN [id number] / [id number] / Procedures Procedure Name Priority Date/Time Associated Diagnosis Comments CARDIAC DEVICE CHECK- REMOTE- MURJ Routine 06/13/2025 6:16 PM EST CARDIAC DEVICE CHECK- REMOTE- MURJ Routine 05/19/2025 10:21 PM EDT from Last 3 Months Results * Cardiac device check - Remote- MURJ (06/13/2025 6:16 PM EST) Only the most recent of2 resultswithin the time period is included. Date Time Interrogation Session [id number] CV DEVICE CHECK Type Interrogation Session Remote CV DEVICE CHECK Implantable Pulse Generator Voice Instructor MDT CV DEVICE CHECK Implantable Pulse Generator Type IPG CV DEVICE CHECK Implantable Pulse Generator Model Advisa GEGE [id number] CV DEVICE CHECK Implantable Pulse Generator Serial Number [id number] CV DEVICE CHECK Implantable Pulse Generator Implant Date 20170530 CV DEVICE CHECK Battery Remaining Longevity 39.0 CV DEVICE CHECK Battery Voltage 2.960 CV D EVICE CHECK Battery WORKFORCE MANAGEMENT MANAGER Trigger 2.830 CV DEVICE CHECK Battery Status Middle of Service CV DEVICE CHECK Silver Statistic RA Percent Paced 8.34 CV DEVICE CHECK Silver Statistic RV Percent Paced 0.02 CV DEVICE CHECK Atrial Tachy Statistic AT/AF Solomon Percent 0.00 CV DEVICE CHECK Lead Channel Sensing Intrinsic Amplitude 1.125 CV DEVICE CHECK Lead Channel Setting Sensing Sensitivity 0.30 CV DEVICE CHECK Lead Channel Impedance Value 456 CV DEVICE CHECK Lead Channel Pacing Threshold Amplitude 0.625 CV DEVICE CHECK Lead Channel Pacing Threshold Pulse Width 0.4 CV DEVICE CHECK Lead Channel RA Pacing Threshold Date 2025-06-09 CV DEVICE CHECK Lead Channel Setting Pacing Amplitude 1.500 CV DEVICE CHECK Lead Channel Setting Pacing Pulse Width 0.4 CV DEVICE CHECK Lead Channel Sensing Intrinsic Amplitude 5.000 CV DEVICE CHECK Lead Channel Setting Sensing Sensitivity 2.80 CV DEVICE CHECK Lead Channel Impedance Value 475 CV DEVICE CHECK Lead Channel Pacing Threshold Amplitude 0.625 CV DEVICE CHECK Lead Channel Pacing Threshold Pulse Width 0.4 CV DEVICE CHECK Lead Channel RV Pacing Threshold Date 2025-06-09 CV DEVICE CHECK Lead Channel Setting Pacing [...] 6 CV DEVICE CHECK Date of Service 2025-08-18 CV DEVICE CHECK Anatomical Region Laterality Modality Device Interroga tion 06/09/2025 11:2 7 PM EST Impressions 06/13/2025 6:09 PM EST Normal Remote: No Events * Normal Device Function * Alerts or events: None * Battery: OK, 3.25 yrs * Sensing, impedance and thresholds reviewed * Programmed parameters reviewed * Presenting rhythm reviewed * Heart Rate Histograms reviewed * No significant changes noted Narrative Procedure Note Harley Veliz MD - 06/13/2025 IMPRESSION: Normal Remote: No Events * Normal Device Function * Alerts or events: None * Battery: OK, 3.25 yrs * Sensing, impedance and thresholds reviewed * Programmed parameters reviewed * Presenting rhythm reviewed * Heart Rate Histograms reviewed * No significant changes noted Harley Veliz MD CV IMPLANTABLE CARDIAC DEV ICE PROCEDURES Final Result from Last 3 Months Insurance [facility] Care Teams Accounts Specialist Relationship Specialty Start Date End Date Sisi Hernandez MD [address] [place] [address] PCP - General 01/20/13
--- OUTSIDE RECORDS SUMMARY | 2025-07-09 18:01 | XMS_ITS | Clinical Summary ---
Author Organization [facility] Address [address] [place] [address] Care Team Providers Care Closing Machine Operator Name Role Phone Sisi Hernandez [...] 2025 , 05/16/2023, 06/04/2021, Additional history exists COVID-19 Vaccine (3 - 2024-2 6 season) 2025 10/14/2020, 09/05/2020 DTaP,Tdap,and Td Vaccines (2 - Td or Tdap) 03/10/2028 03/10/2018 Insurance [facility] MEDICAID Care Teams Closing Machine Operator Relationship Specialty Start Date End Date Sisi Hernandez MD [address] [place] [address] PCP - General Internal Medicine 04/13/24
--- OUTSIDE RECORDS SUMMARY | 2025-07-09 18:01 | XMS_ITS | Clinical Summary ---
Author Organization [facility] Address [address] [place], [place] [id number] Phone Care Team Providers Care Hvac Refrigeration Technician Name Role Phone Unknown, Unknown Primary Care [...] REPLACEMENT MEDICARE REPLACEMENT MEDICARE REPLACEMENT MEDICARE REPLAC[place] [address] CARE MEDIC[address]PL[address] [place] [address] CARE MEDICARE REPLACEMENT Care Teams Hvac Refrigeration Technician Relationship Specialty Start Date End Date Unknown, Unknown, PCP - General 12/25/19 Additional Source Comments The information contained in this document represents components of the legal health record. It is not the complete legal health record.[facility]
--- OUTSIDE RECORDS SUMMARY | 2025-07-09 18:01 | XMS_ITS | Encounter Summary ---
Author Organization Address [address] [place] [address] Care Team Providers Care Book Repairer Name Role Phone Sisi Hernandez MD Primary Care Provider +1- [phone] Encounter Details Date Type Department Care Team (Late st Contact Info) Description 06/21/2025 Telephone [facility] Cardiology [facility] - [facility] [address] [facility] [address] [place] [address] Zaida Arroyo [place] Social History Tobacco Use Types Packs/Day Years [...] as of this encounter Progress Notes * Zaida Arroyo MA - 06/21/2025 9:36 AM EST I called patient per Kelley Sam to notify patient that Dr. Veliz is not in the office this afternoon only Kelley for her 1:40 patient and offer if she would like to reschedule with Dr. Gonzalez only. I had to leave a message and they patient will call back. documented in this encounter Plan of Treatment Upcoming Encounters Date Type Department Care Team (Late st Contact Info) Description 01/26/2026 3:00 PM EDT Ancillary Procedure [facility] - [address] [facility] [address] [place] [phone] documented as of this encounter Visit Diagnoses Not on filedocumented in this encounter Care Teams Book Repairer Relationship Specialty Start Date End Date Sisi Hernandez MD [address] [place] [address] PCP - General 01/20/13 documented as of this encounter
[2025-07-12 17:03] LABS: Immunoglobulin G Subclass 1 717 mg/dL (382-929); Immunoglobulin G Subclass 2 484 mg/dL (241-700); Immunoglobulin G Subclass 3 69 mg/dL (22-178); Immunoglobulin G Subclass 4 49.0 mg/dL (4-86); Immunoglobulin G Total 1324 mg/dL (600-1640)
== END 2025-07-09 11:23 | disposition home or self-care (01) ==
LOC: HO.XRAY 11:22
PROVIDERS: PCP Internal Medicine; Visit Provider Internal Medicine
DX: G47.419 Narcolepsy without cataplexy (principal); R53.83 Other fatigue; D70.9 Neutropenia, unspecified; D72.819 Decreased white blood cell count, unspecified; E55.9 Vitamin D deficiency, unspecified; R06.01 Orthopnea; R06.02 Shortness of breath; M62.81 Muscle weakness (generalized); Z95.0 Presence of cardiac pacemaker
CPT/HCPCS: 36415; 71046; 80053; 82180; 82306; 82607; 82728; 82784; 83540; 83880; 84443; 84484; 85025

== ENCOUNTER → 2025-07-09 13:03 | Outpatient (BNV) | payer OTHER, SELFPAY | PROVIDERS: PCP Internal Medicine; Visit Provider Radiology Diagnostic Radiology | DX: R06.02 Shortness of breath (principal) | CPT/HCPCS: 71046 ==

== ENCOUNTER 2025-07-14 15:08 | Outpatient (AMB) | payer OTHER, SELFPAY ==
--- NOTE | 2025-07-14 15:15 | MHC.OFFVIS ---
Vital Signs 07/14/25 15:16 Height 5 ft 3 in Weight 167 lb 2 oz BMI 29.6 BP 110/72 Blood Pressure Location Rt brachial Position Sitting Pulse 87 Pulse Source Pulse Oximeter Pulse Oximetry (%) 98 Oxygen Delivery Method Room Air Intake Visit Reasons: INP-Muscle weakness,Myalgia, Narcolepsy Intake Note: Muscle weakness, Myalgia, Narcolepsy Car Inspector Required: No Accompanied by: Self / Same As Patient Allergies cefoxitin (CEFOXITIN) Allergy (Severe, Verified 07/14/25 15:16) Anaphylaxis sertraline Allergy (Severe, Verified 07/14/25 15:16) itching vancomycin (VANCOMYCIN) Allergy (Severe, Verified 07/14/25 15:16) Anaphylaxis Medication List - Last Reconciled 07/14/25 by Angelita Alex MD albuterol sulfate 2.5 mg (3 mL) inhalation Q6H PRN 30 days bisacodyl (Dulcolax (bisacodyl)) 5 mg PO DAILY 30 days cholecalciferol (vitamin D3) 1,250 mcg PO QWEEK 3 months docusate sodium 100 mg PO BID epinephrine (EpiPen 2-Chester) 0.3 mg (0.3 mL) IM Q4H PRN famotidine (Pepcid) 40 mg PO BEDTIME levalbuterol HCl 1.25 mg (3 mL) inhalation BID 30 days vuwmre-otdzsxuj-wwfzlvf (pork) 10,000-32,000 -42,000 unit (Zenpep) 2 caps PO TID lorazepam 0.5 mg PO BID PRN nebulizers As directed nitroglycerin 0.4 mg sublingual .Q5MINS omalizumab (Xolair) 225 mg subcut Q2W 4 weeks sennosides (senna) 17.2 mg PO DAILY verapamil ER 1 tab PO BID HPI Comments Details: 34y/o female with 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 whens he wakes up she has weakness and pain.- she saw a Heeler she adderall , ritalin , wakix ,provigil , nuvigil , xywave . sunosi helped a little . she declines using prozac. she is concerned about addiction to medications. SHE DOES NOT DRIVE [facility] Medical History (Updated 07/15/25 @ 12:50 by Angelita Alex MD) H/O brain tumor History of medulloblastoma Murmur Orthopnea Vitamin D deficiency Shortness of breath Fatigue Neutropenia Myalgia Environmental allergies Asthma Pulmonary emboli Pleuritic chest pain Abnormal serum angiotensin-converting enzyme level Cardiac arrhythmia Pulmonary nodules Dyspnea History of DVT (deep vein thrombosis) History of chemotherapy History of palpitations Hx of supraventricular tachycardia Narcolepsy Seasonal allergies Anxiety and depression Pacemaker Pernicious anemia B12 deficiency Active asthma POTS (postural orthostatic tachycardia syndrome) H/O brain tumor Surgical History History of repair of rectocele Hx of hysterectomy History of cardiac radiofrequency ablation (RFA) Hx of craniotomy H/O colonoscopy (~11/22/21) H/O esophagogastroduodenoscopy Hx of appendectomy Family History Mother Heart problem Maternal Grandfather Heart problem Paternal Grandmother Dementia Social History Household Members: None Housing: Apartment Are you a primary long term care administrator to a significant other at home: No Do you presently have visiting nurse or other home services: Yes ([employer] 4.5 week) Alcohol intake: current Alcohol intake frequency: a few times a month Patient Tobacco Use Status: Never used Tobacco e-Cigarette/Vaping Use: Never Used service: No Current occupational status: employed 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 [facility] Physical Exam Vital Signs: Last Vital Signs Pulse 87 07/14/25 15:16 BP 110/72 07/14/25 15:16 Pulse Ox 98 07/14/25 15:16 Oxygen Delivery Method Room Air 07/14/25 15:16 BMI result Body Mass Index 29.6 Const General: cooperative, healthy appearing, comfortable and anxious Nutritional Appearance: average body habitus Orientation/consciousness: patient oriented x3 Eyes Pupils: Equal, round and reactive pupils present Neuro Other: looks fatgued General: patient oriented x3, gait normal, tone normal and moves all extremities Cranial nerves: Yes Facial sensation intact/muscles of mastication intact, Yes Equal, round and reactive pupils present, Yes Bilaterally intact EOM present, Yes Nystagmus not present, Yes Normal facial strength present, Yes Midline tongue present, Yes Symmetric palate elevation present and Yes Ability to bilaterally elevate shoulders present Cognition (Neuro): normal cognition Gait exam (Neuro): Normal gait present Motor exam (neuro): 5/5 motor strength present throughout and Normal motor muscle tone present throughout Deep tendon reflexes (DTR's): Right triceps reflex intensity grade: 1+, Left triceps reflex intensity grade: 1+, Rt Biceps (C5, C6): 1+, Left biceps reflex intensity grade: 1+, Right brachioradialis reflex intensity grade: 1+, Left brachioradialis reflex intensity grade: 1+, Right patellar reflex intensity grade: 1+ and Left patellar reflex intensity grade: 1+ Coordination: oufkbr-vl-ydrf test normal Assessment & Plan Assessment & Plan (1) Narcolepsy: Code(s): G47.419 - Narcolepsy without cataplexy Category: Medical (2) H/O brain tumor: Code(s): Z87.898 - Personal history of other specified conditions Category: Medical Plan Reports from [facility] for review I will retrial on sunosi 150mg qam for hypersomnia and fluoxetine 10 mg qd MRI Brain to follow up on he rmedulloblastoma Orders: Orders MR head/brain wo/w con 07/14/25 Z85.841 - Personal history of malignant neoplasm of brain Medications: New fluoxetine (Prozac) 10 mg PO DAILY 30 caps 6RF solriamfetol (Sunosi) 150 mg PO DAILY 30 tabs 5RF Coding Level of Care Code New Pt Level 4 (25487) Add On Problem Visit Only Diagnoses Narcolepsy G47.419 H/O brain tumor Z87.898 [place] Sleepiness Scale Questions Sitting and reading: high chance of dozing Watching TV: high chance of dozing Sitting inactive in a theater, movie etc.: moderate chance of dozing As a passenger in a car for an hour without break: high chance of dozing Lying down in the afternoon when circumstances permit: high chance of dozing Sitting and talking to someone: moderate chance of dozing Sitting quietly after lunch without alcohol: high chance of dozing In a car, while stopped for a few minutes in the traffic: moderate chance of dozing ESS < 10: normal, ESS > 12: pathologic: 21
[2025-07-14 15:16] VITALS: BP 110/72; PULSE 87; O2SAT 98; BMI 29.6
--- OUTSIDE RECORDS SUMMARY | 2025-07-14 20:07 | XMS_ITS | Clinical Summary ---
Author Organization [facility] Address [address] [place] [address] Care Team Providers Care Family Practice Doctor Name Role Phone Sisi Hernandez MD Primary Care Provider [phone] Allergies Active Allergy Reactions Criticality Noted Date [...] - Td or Tdap) 03/10/2028 03/10/2018 Insurance [facility] MEDICAID Care Teams Family Practice Doctor Relationship Specialty Start Date End Date Sisi Hernandez MD [address] [place] [address] PCP - General Internal Medicine 04/13/24
--- OUTSIDE RECORDS SUMMARY | 2025-07-14 20:07 | XMS_ITS | Clinical Summary ---
Author Organization [facility] Address [address] [place] [address] Care Team Providers Care Security Management Specialist Name Role Phone Sisi Hernandez MD Primary Care Provider [phone]- [phone] Allergies Active Allergy Reactions Criticality Noted Date [...] Type Department Care Team Description 06/21/2025 Telephone [facility] Cardiology [facility] [address] [place] [address] Zaida Arroyo [place] 06/17/2025 Telephone [facility] Cardiology [facility] [address] [place] [address] Provider, Not In System 06/13/2025 6:20 PM EST Ancillary Procedure [facility] [address] [place] [address] 05/19/2025 10:25 PM EDT Ancillary Procedure [facility] Cardiology [facility] [address] [place] [address] 05/11/2025 Telephone [facility] - [address] [place] [address] Harley Veliz MD 04/29/2025 Telephone [facility] Cardiology [facility] [address] [place] [address] Harley Veliz MD from Last 3 Months [...] Description 01/26/2026 3:00 PM EDT Ancillary Procedure [facility] [address] [place] [address] Health Maintenance Due Date Last [...] this topic Medical Devices Implanted Type [employer] Device Identifier Shelf Expiration Date Model / Serial / Lot Medt-Card Adviseleno De Guzman [id number] Implanted:08/2016 (Quantity not on file) Cardiac Pacemaker [employer] - CARDIAC RHYTH-CRDM ADVISA DR DE GUZMAN [id number] / [id number] / Procedures Procedure Name Priority Date/Time Associated Diagnosis Comments CARDIAC DEVICE CHECK- REMOTE- MURJ Routine 06/13/2025 6:16 PM EST CARDIAC DEVICE CHECK- REMOTE- MURJ Routine 05/19/2025 10:21 PM EDT from Last 3 Months Results * Cardiac device check - Remote- MURJ (06/13/2025 6:16 PM EST) Only the most recent of2 resultswithin the time period is included. Date Time Interrogation Session [id number] CV DEVICE CHECK Type Interrogation Session Remote CV DEVICE CHECK Implantable Pulse Generator [employer] Teacher MDT CV DEVICE CHECK Implantable Pulse Generator Type IPG CV DEVICE CHECK Implantable Pulse Generator Model Advisa GEGE [id number] CV DEVICE CHECK Implantable Pulse Generator Serial Number [id number] CV DEVICE CHECK Implantable Pulse Generator Implant Date 20170530 CV DEVICE CHECK Battery Remaining Longevity 39.0 CV DEVICE CHECK Battery Voltage 2.960 CV D EVICE CHECK Battery ACADEMIC RECORDS SPECIALIST Trigger 2.830 CV DEVICE CHECK Battery Status Middle of Service CV DEVICE CHECK Silver Statistic RA Percent Paced 8.34 CV DEVICE CHECK Silver Statistic RV Percent Paced 0.02 CV DEVICE CHECK Atrial Tachy Statistic AT/AF [place] Percent 0.00 CV DEVICE CHECK Lead Channel [...] Final Result from Last 3 Months Insurance [facility] Care Teams Security Management Specialist Relationship Specialty Start Date End Date Sisi Hernandez MD [address] [place] [address] PCP - General 01/20/13
--- OUTSIDE RECORDS SUMMARY | 2025-07-14 20:07 | XMS_ITS | Data Portability ---
Author Organization [place] - [facility], Allergy Address [address] [address] Care Team Providers Care Spooler Operator Automatic Name Role Phone JAZMIN SANCHES Primary Care [...] and she will follow up with her forge heater for hearing aid adjustment. She will follow up in 6 months for routine debridement, or sooner with any concerns. 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 eral side; Note: Date Diagnosed : 01/12/2016 3:33 PM (H90.12) Not Available [facility] 4 02:32:44 Acute myringiti s of left ear 46992707857 78888 Active 2017 Acute myringiti s, left ear; Note: Date Diagnosed : 8 3:58 PM (H73.002) Not Available [facility] 4 02:32:53 Otorrhea of left ear 72872390670 46266 Active 2017 Otorrhea, left ear; Note: Date Diagnosed : 8 3:55 PM (H92.12) Not Available [facility] 4 02:32:48 Central perforati on of left tympanic membrane 04641354875 76607 Active 2017 Central perforati on of tympanic membrane, left ear; Note: Date Diagnosed : 8 3:55 PM (H72.2X2) Not Available [facility] 4 02:32:50 History of radiation exposure 836428072 Active 2020 Personal history of exposure to therapeut ic radiation ; Note: Date Diagnosed : 08/25/2020 12:52 PM (Z92.3) Not Available [facility] 4 02:32:49 Impacted cerumen of bilateral ears 84006915401 60662 Active 2020 Impacted cerumen, bilateral ; Note: Date Diagnosed : 02/16/2021 3:38 PM (H61.23) Impacte d cerumen, bilateral ; Note: Date Diagnosed : 08/01/2020 2:25 PM (H61.23) ; Start Date : 1 Not Available [facility] 4 02:32:58 Pain of left temporoma ndibular joint 38173099495 219556 Active 2020 Arthralgi a of left temporoma ndibular joint; Note: Date Diagnosed : 02/16/2021 3:38 PM (M26.622) Not Available [facility] 4 02:32:35 Problem Notes None recorded. Procedures Surgical History Date Name Laterality Status Provider Name and Address Organization Details Recorded Time 4 Comp Audio with Tymps - 62664 & 17688 completed VAN MIRANDA [address] [facility],[address], [address], [facility] 04/06/2024 14:53:13 4 Cerumen removal without microscope bilat completed CLINT GASTELUM PA-C 100 [facility],[address], [address], [facility] 04/06/2024 14:03:31 Imaging Results None recorded. Procedure Notes None recorded. Medical Equipment None Reported. Allergies Allergen ID Allergen Name Allergen Category Reaction Reaction Severity Criticality Documentation Date Start Date Code Code System Note Provider Name and Address Organization Details Recorded Time 29314 hydrocort isone / neomycin / polymyxin B medicatio n other Not available Not available 12/10/2023 51119 7 RxNorm React ion: unkno wn, unspe cifie d;; Not Available [facility] 4 01:03:11 00804 cefoxitin medicatio n other Not available Not available 12/10/2023 2189 RxNorm React ion: unkno wn, unspe cifie d;; Not Available [facility] 4 01:03:15 Medications Name Sig Start Date Stop Date Status Note LastModified by Organization Details LastModified Time vitamin d3 1.25 mg (10709 u TAKE 1 CAPSULE BY MOUTH EVERY [...] 24 hr 02/16 completed Medicati on ID: [id number] D uration Value: 30 Brand Name: diltiaze m HCl Send Method: E-Prescr ibed Sub s Allowed: subs BOO Speci al Instruct ion: TAKE 1 CAPSULE BY ORAL ROUTE EVERY DAY Medi cationGe nericNam e: diltiaze m HCl Not Available Not Available Not Available Nexium 40 mg capsule,d elayed release 08/01 completed Medicati on ID: [id number] D uration Value: 90 Brand Name: Nexium S end Method: E-Prescr ibed Sub s Allowed: subs BOO Mckenziei al Instruct ion: 1 CAPSULE BY MOUTH DAILY Me dication GenericN nadege: Nexium Not Available Not Available Not Available diltiazem ER 360 mg capsule,2 4 hr,extend ed release 2020 active Medicati on ID: 702159 B rand Name: diltiaze m HCl Send [...] NEEDED FOR PAIN. (LIMIT 4000MG OF TYLENOL/ APAP/TAEMKA TAMINOPH EN) active Not Available Not Available [...] mg tablet 2021 active Medicati on ID: 434174 B rand Name: metoprol ol tartrate Send [...] xtend release 2021 active Medicati on ID: 739672 B rand Name: dextroam phetamin e-amphet amine Se nd Method: E-Prescr ibed Sub s Allowed: subs OK Medic ationGen ericName : dextroam phetamin e-amphet amine Not Available Not Available Not Available bisacodyl 5 mg tablet,de layed release TAKE 1 TABLET BY MOUTH EVERY DAY active Not Available Not Available No t Available acebutolo l 200 mg capsule 08/01 completed Medicati on ID: 399449 D uration Value: 15 Brand Name: acebutol [...] mg capsule 08/01 completed Medicati on ID: [id number] D uration Value: 30 Brand Name: fluoxeti ne Send Method: E-Prescr ibed Sub s Allowed: subs OK Speci al Instruct ion: TAKE ONE CAPSULE BY MOUTH EVERY DAY Medi cationGe nericNam e: fluoxeti ne Not Available Not Available Not Available dextroamp hetamine- amphetami ne 5 mg tablet 2021 active Medicati on ID: [id number] B rand Name: dextroam phetamin e-amphet amine [...] drops,sherry p 07/17 completed Medicati on ID: 469393 D uration Value: 20 Brand Name: neomycin [...] 4 drop 2017 active Medicati on ID: [id number] D uration Value: 10 Prescri bed By [...] Updated DateTime 04/06/2024 154.94 cm 27.4 kg/m2 33190.89 g Jacqueline Paredes [place] - [facility] 04/06/2024 14:10:42 Social History None recorded. Functional Status None recorded. Mental Status None recorded. Family History Nothing Reported. Medical History No medical history recorded. Gynecological HistoryNo gynecological history recorded. Obstetrics History GPAL:G 0 P 0 0 0 0 Past Encounters Encounter ID Performer Location Encounter Start Date Encounter Closed Date Diagnosis/Indication Diagnosis SNOMED-CT Code Diagnosis ICD10 Code Diagnosis IMO Codes Diagnosis Note [id number] CLINT GASTELUM PA-C [facility] [address] [address] 04/06/2024 14:00:38 04/06/2024 15:09:40 Central perforation of left tympanic membrane [id number] 454565 H72.02 Impacted c erumen of bilateral ears 1032809528 280419 H61.23 Conductive hearing loss 43513592 H90.12 Audiologic al evaluation results: Right ear: [...] ID Dahl Member ID Guarantor Name 10/02/[address] [place] [address] [facility]ICA[facility]) [id number] Ekta Arzate [id number] Ekta Arzate Notes Date Note Type Note [...] of medulloblastoma in 2012. ROBERT FELDMAN MD [address] [place] [address], [place], [address], [facility] - [facility] 04/07/2024 08:53:19 OBGyn Episode No OBEpisode recorded.
--- OUTSIDE RECORDS SUMMARY | 2025-07-14 20:07 | XMS_ITS | Clinical Summary ---
Author Organization [facility] Address [address] [place], [place] [phone] Phone Care Team Providers Care Wire Worker Name Role Phone Unknown, Unknown Primary Care [...] REPLACEMENT MEDICARE REPLACEMENT MEDICARE REPLACEMENT MEDICARE [place] [address] [place] [address] [address] [place] [address] [place] [address] CARE MEDICARE REPLACEMENT Care Teams Wire Worker Relationship Specialty Start Date End Date Unknown, Unknown, PCP - General 12/25/19 Additional Source Comments The information contained in this document represents components of the legal health record. It is not the complete legal health record.[facility]
--- OUTSIDE RECORDS SUMMARY | 2025-07-14 20:07 | XMS_ITS | Encounter Summary ---
Author Organization [facility] Address [address] [place] [address] Care Team Providers Care Tin Flopper Name Role Phone Sisi Hernandez MD Primary Care Provider +1- [phone] Encounter Details Date Type Department Care Team (Late st Contact Info) Description 06/21/2025 Telephone [facility] Cardiology [facility] [address] [facility] [address] [place] [address] Zaida Arroyo [place] Social History [...] Description 01/26/2026 3:00 PM EDT Ancillary Procedure [facility] - [address] [facility] [address] [place] [address] documented as of this encounter Visit Diagnoses Not on filedocumented in this encounter Care Teams Tin Flopper Relationship Specialty Start Date End Date Sisi Hernandez MD [address] [place] [address] PCP - General 01/20/13 documented as of this encounter
== END 2025-07-14 16:08 | disposition home or self-care (01) ==
LOC: HO.HSMS 15:08
PROVIDERS: PCP Internal Medicine; Visit Provider Psychiatry & Neurology Neurology
DX: G47.419 Narcolepsy without cataplexy (principal); Z87.898 Personal history of other specified conditions
CPT/HCPCS: 99204

== ENCOUNTER → 2025-07-14 15:08 | Outpatient (BNVA) | payer OTHER, SELFPAY | PROVIDERS: PCP Internal Medicine; Visit Provider Psychiatry & Neurology Neurology | DX: G47.419 Narcolepsy without cataplexy (principal); Z87.898 Personal history of other specified conditions; G47.10 Hypersomnia, unspecified | CPT/HCPCS: 99202 ==